=== PATIENT | female | born 1945 | race Caucasian/White ===

== ENCOUNTER 2017-12-24 12:14 | Emergency (ER) | payer MEDICARE, MEDICAID, SELFPAY | END 2017-12-24 15:22 | disposition home or self-care (01) | PROVIDERS: Emergency Provider Emergency Medicine; Family Provider Family Medicine; PCP Family Medicine; Visit Provider Emergency Medicine | DX: M25.422 Effusion, left elbow (principal) | CPT/HCPCS: 36415; 71100; 71101; 73030; 73080; 85025; 85610; 85730; 96372; 99058; 99284; J2270 ==

== ENCOUNTER → 2018-02-15 17:43 | Outpatient (CLI) | payer MEDICARE, MEDICAID, SELFPAY ==
[2018-02-15 18:54] LABS: Bacteria Urine None Seen; RBC Urine None Seen (0-5/HPF); WBC Urine None Seen (0-5/HPF)
[2018-02-15 19:09] LABS: Appearance Urine UA CLEAR; Bilirubin Urine UA NEGATIVE (NEGATIVE); Color Urine UA YELLOW; Glucose Urine UA NEGATIVE (Normal); Ketones Urine UA NEGATIVE (NEGATIVE); Leukocyte Esterase Urine UA NEGATIVE (NEGATIVE); Nitrite Urine UA Negative (Negative); Occult Blood Urine UA TRACE-LYSED (Negative); Protein Urine UA TRACE (Negative); Urobilinogen Urine UA 0.2 E.U./dL (0.2); pH Urine UA 5.5 (4.5-8.0)
[2018-02-15 19:18] LABS: Culture Indicated Urine Cult Not Indicated; Urine Comments Microscopic Normal
== END ==
PROVIDERS: Family Provider Family Medicine; PCP Family Medicine; Visit Provider Physician Assistant
DX: R30.0 Dysuria (principal)
CPT/HCPCS: 81001

== ENCOUNTER → 2018-02-17 11:06 | Outpatient (CLI) | payer MEDICARE, MEDICAID, SELFPAY ==
[2018-02-17 12:33] LABS: INR 2.8 (0.9-1.3); Prothrombin Time 29.9 SECONDS (10.1-12.7)
== END ==
PROVIDERS: Family Provider Family Medicine; PCP Family Medicine; Visit Provider Family Medicine
DX: I48.91 Unspecified atrial fibrillation (principal); Z79.01 Long term (current) use of anticoagulants
CPT/HCPCS: 36415; 85610

== ENCOUNTER → 2018-03-13 16:10 | Outpatient (CLI) | payer MEDICARE, MEDICAID, SELFPAY ==
[2018-03-13 17:35] LABS: Add Manual Diff / Slide Review NO; Basophils Percent Auto 0.2 % (0-2); Eosinophils Percent Auto 4.2 % (2-4); Hematocrit 32.4 % (36-46); Hemoglobin 10.6 g/dL (12.0-16.0); Lymphocytes Percent Auto 32.9 % (25-40); Mean Corpuscular HGB Conc 32.9 % (30-36); Mean Corpuscular Hemoglobin 26.3 PG (26-34); Mean Corpuscular Volume 79.9 fL (80-100); Neutrophils Absolute Auto 3800 /uL (3000-5900); Neutrophils Percent Auto 54.7 % (50-75); Platelet Count 259 X10^3/uL (150-400); Red Blood Cell Count 4.05 X10^6/uL (4.0-5.2)
[2018-03-13 17:48] LABS: INR 2.2 (0.9-1.3); Prothrombin Time 24.1 SECONDS (10.1-12.7)
[2018-03-13 18:01] LABS: Alanine Aminotransferase 15 IU/L (9-52); Albumin Globulin Ratio 1.1 (1.0-2.8); Alkaline Phosphatase 120 U/L (38-126); Aspartate Aminotransferase 17 IU/L (14-36); BUN Creatinine Ratio 22.5 (6-22); Bilirubin Total 0.4 mg/dL (0.2-1.3); Blood Urea Nitrogen 27 mg/dL (7-17); Calcium 8.7 mg/dL (8.4-10.2); Carbon Dioxide 25 mmol/L (22-32); Chloride 105 mmol/L (98-107); Cholesterol 143 mg/dL (140-199); Globulin 3.6 g/dL (1.7-4.1); Glucose 88 mg/dL (80-110); HEMOLYSIS 19 (0-50); Potassium 4.4 mmol/L (3.4-5.1); Sodium 143 mmol/L (137-145); Total Protein 7.6 g/dL (6.3-8.2); Triglycerides 314 mg/dL (35-150)
[2018-03-13 18:32] LABS: TSH w/ Reflex to FT4 1.49 uIU/mL (0.47-4.68)
[2018-03-13 20:09] LABS: HDL Cholesterol 39 mg/dL (40-60); LDL Cholesterol Calculated 41 mg/dL (<100)
== END ==
PROVIDERS: Family Provider Family Medicine; PCP Family Medicine; Visit Provider Family Medicine
DX: I48.91 Unspecified atrial fibrillation (principal); I10 Essential (primary) hypertension; M54.5 Low back pain; I63.9 Cerebral infarction, unspecified; Z79.01 Long term (current) use of anticoagulants
CPT/HCPCS: 36415; 80053; 80061; 84443; 85025; 85610

== ENCOUNTER 2018-03-24 18:54 | Emergency (ER) | payer MEDICARE, MEDICAID, SELFPAY ==
[2018-03-24 19:04] VITALS: BP 164/69; PULSE 67; RESP 18; TEMP 37.1; O2SAT 95; BMI 30.9
--- NOTE | 2018-03-24 19:14 | DI.RAD.S_ITS ---
PROCEDURE: XR CHEST 2V INDICATIONS: shortness of breath TECHNIQUE: 2 views of the chest were acquired. COMPARISON: [facility], , CHEST 2 VIEW, 12/11/2015, 14:57. FINDINGS: Surgical changes and devices: Partially visualized thoracic fixation rods are noted. Lungs and pleura: No pleural effusions or pneumothorax. Mild increased pulmonary vascularity. Mediastinum: Mediastinal contours are normal. Heart size is mildly prominent. Bones and chest wall: No suspicious bony abnormalities. Soft tissues appear unremarkable. IMPRESSION: Mild increased pulmonary vascularity suggestive of edema. Dictated by: Megan Flores M.D. on 03/24/2018 at 20:22 Approved by: Megan Flores M.D. on 03/24/2018 at 20:23
--- NOTE | 2018-03-24 19:16 | ED.SOB ---
HPI - SOB/Dyspnea General Chief Complaint: Shortness of Breath/Dyspnea Stated Complaint: SWELLING OF LEGS STING AND BURN BLOOD Time Seen by Provider: 03/24/18 19:00 Source: patient Mode of arrival: ambulatory Limitations: no limitations History of Present Illness Patient presents to the emergency department today with a chief complaint of increasing shortness of breath over the past few days. She states that her shortness of breath is worse with exertion and when lying flat. Additionally she states she has some swelling in her lower extremities. She is supposed to take Lasix every day but has not been taking it lately because she did know what it was for MD Complaint: shortness of breath Onset (ago): day(s) Context: medication noncompliance Consistency/Duration: constant Relieving factors: oxygen Exacerbating factors: lying flat and exertion Known history of: congestive heart failure Associated symptoms: denies other symptoms Treatment prior to arrival: none Related Data Home Medications Medication Instructions Recorded Confirmed oxybutynin chloride 15 mg PO QDAY #30 08/23/17 03/14/18 buprenorphine 8 mg-naloxone 2 mg 1 film SL DAILY 03/21/18 sublingual film Previous Rx's Medication Instructions Recorded warfarin [Coumadin] 0 PO SEE INSTRUCTIONS #90 tab 07/11/17 omeprazole 20 mg PO QDAY #90 cap 09/07/17 bupropion HCl 200 mg PO Q DAY #30 tab 12/12/17 losartan [Cozaar] 50 mg PO QDAY #90 tab 12/22/17 nitroglycerin 0.4 mg sublingual 0.4 mg SL Q5-15M PRN #25 tab 01/18/18 tablet metoprolol succinate [Toprol XL] 25 mg PO BID #180 tab 01/31/18 furosemide 40 mg tablet 20 mg PO Q DAY #45 tab 02/13/18 duloxetine 60 mg capsule,delayed 120 mg PO QDAY 30 Days #60 cap 03/21/18 release zolpidem 5 mg tablet 5 mg PO HSP PRN #30 tab 03/21/18 Allergies Allergy/AdvReac Type Severity Reaction Status Date / Time ciprofloxacin AdvReac Intermediate FLUSHING, Unverified 03/14/18 11:04 SWEATS, SOB citalopram [CITALOPRAM] AdvReac Intermediate Hallucinati Unverified 03/14/18 11:04 ons cyclobenzaprine AdvReac Intermediate FLUSHING, Unverified 03/14/18 11:04 SWEATS, SOB pregabalin AdvReac Intermediate FLUSHING/SW Unverified 03/14/18 11:04 EATS/SOB Review of Systems Review of Systems All systems reviewed & are unremarkable except as noted in HPI and below Constitutional Denies chills, Denies fever(s), Denies lethargy and Denies weakness Eyes Denies change in vision, Denies eye discharge, Denies irritation and Denies loss of vision ENT Ears, Nose, Mouth, and Throat: Denies change in voice, Denies neck pain and Denies sore throat Cardiovascular Denies chest pain, Denies irregular heart rhythm, Denies lightheadedness, Denies palpitations, Reports dyspnea, Reports dyspnea on exertion and Denies orthopnea Respiratory Reports cough, Reports dyspnea, Reports dyspnea on exertion and Denies wheezing Gastrointestinal Gastrointestinal: Denies abdominal pain, Denies change in bowel habits, Denies diarrhea, Denies nausea and Denies vomiting Genitourinary Denies hematuria, Denies flank pain, Denies urinary incontinence and Denies urinary urgency Musculoskeletal Denies neck pain Comments: Bilateral lower extremity edema Integumentary/Breasts Denies pruritus, Denies erythema, Denies rash and Denies wounds Neurologic Denies confusion, Denies loss of vision and Denies weakness Psychiatric Denies anxiety, Denies confusion, Denies depression, Denies homicidal ideation and Denies suicidal ideation Endocrine Denies palpitations Hematologic/Lymphatic Denies easy bruising Allergic/Immunologic Denies wheezing PFSH Social History marital status: Smoking Status: Former smoker alcohol intake: never substance use type: does not use Exam Narrative Exam Narrative: 73-year-old female in mild distress Initial Vital Signs Initial Vital Signs: Vital Signs Temperature 98.7 F 03/24/18 19:04 Pulse Rate 67 03/24/18 19:04 Respiratory Rate 18 03/24/18 19:04 Blood Pressure 164/69 H 03/24/18 19:04 Pulse Oximetry 95 03/24/18 19:04 Const General: cooperative and well developed Nutritional Appearance: well nourished Orientation: alert, awake, oriented x3 and not confused HENMT Head: normocephalic and atraumatic Ears: external ears normal and TM's normal bilaterally Nose: external nose normal and No nasal discharge Face and sinus: sinuses nontender, face symmetric, no sinus tenderness and No dry mucous membranes Mouth: oral mucosae normal and moist mucous membranes Teeth and gingiva: dentition normal Throat: tonsils normal and uvula midline Neck Neck: normal visual inspection, trachea midline, No lymphadenopathy, No midline deformity and No JVD Lymphatic: No lymphedema Chest Chest: normal inspection of the chest Resp Effort & Inspection: normal respiratory effort, able to speak in complete sentences, no respiratory distress and no use of accessory muscles Auscultation: clear to auscultation bilaterally, crackles, rales, no rhonchi and no wheezes Cardio Rate: regular rate Rhythm: regular rhythm Heart Sounds: no click, no gallops, no murmurs and no rubs Pulses: normal peripheral pulses GI Inspection: non-distended Palpation: soft, no hepatosplenomegaly, No guarding, No pulsatile mass and No tender Auscultation: normal bowel sounds Skin General: no rashes or lesions noted, No jaundice and No petechiae Extrem Right lower extremity: edema Left lower extremity: edema Course Orders Ordered: ED Orders 03/24/18 20:10 B Type Natriuretic Peptide Stat Basic Metabolic Panel Stat Complete Blood Count AUTO DIFF Stat Lactate (Lactic Acid) Stat Magnesium Stat Procalcitonin Stat Troponin & CK Cardiac Panel Stat 03/24/18 20:32 Blood Culture Stat Discontinued Medications Furosemide (Lasix) 40 mg IV NOW ONE Stop: 03/24/18 19:57 Last Admin: 03/24/18 20:54 Dose: 40 mg Methylprednisolone (Solu-Medrol 125 Mg Vial) 125 mg IV NOW ONE Stop: 03/24/18 19:17 Last Admin: 03/24/18 20:53 Dose: 125 mg Vital Signs - 8 hr 03/24/18 21:08 Pulse Rate 63 Respiratory Rate 18 Blood Pressure [Left Arm] 138/74 H Pulse Oximetry 95 MDM - SOB/Dyspnea Differential Diagnosis Likely acute exacerbation of chronic obstructive airways disease, congestive heart failure, community acquired pneumonia and asthma with exacerbation Medical Records Attestation: I reviewed the patient's medical records. Lab Data Attestation: I reviewed the patient's lab results. Result diagrams: 03/24/18 20:10 03/24/18 20:10 Lab Results 03/24/18 03/24/18 03/24/18 Range/Units 20:10 20:10 20:10 WBC 6.2 (4.5-11.0) X10^3/uL RBC 3.18 L (4.0-5.2) X10^6/uL Hgb 8.4 L (12.0-16.0) g/dL Hct 25.2 L (36-46) % MCV 79.4 L (80-100) fL MCH 26.4 (26-34) PG MCHC 33.2 (30-36) % RDW 15.9 H (11.6-14.8) % Plt Count 198 (150-400) X10^3/uL Neut % (Auto) 62.1 (50-75) % Lymph % (Auto) 22.9 L (25-40) % Peach % (Auto) 7.8 (3-14) % Eos % (Auto) 5.8 H (2-4) % Baso % (Auto) 1.4 (0-2) % Neut # (Auto) 3900 (6981-2918) /uL Sodium 142 (137-145) mmol/L Potassium 4.1 (3.4-5.1) mmol/L Chloride 106 (98-107) mmol/L Carbon Dioxide 29 (22-32) mmol/L BUN 27 H (7-17) mg/dL Creatinine 0.90 (0.52-1.04) mg/dL Estimated GFR > 60.0 (>60) mL/min BUN/Creatinine Ratio 30.0 H (6-22) Glucose 97 (80-110) mg/dL Lactate (0.7-2.1) mmol/L Calcium 8.4 (8.4-10.2) mg/dL Magnesium 2.1 (1.6-2.3) mg/dL Total Creatine Kinase 101 (30-135) U/L CK-MB (CK-2) 2.21 (<2.37) ng/mL CK-MB (CK-2) Rel Index 2.2 (1.5-5.0) % Troponin I < 0.012 (0.01-0.034) ng/mL B-Natriuretic Peptide 168.0 H (<100) Procalcitonin < 0.05 (<0.5) ng/mL 03/24/18 Range/Units 20:10 WBC (4.5-11.0) X10^3/uL RBC (4.0-5.2) X10^6/uL Hgb (12.0-16.0) g/dL Hct (36-46) % MCV (80-100) fL MCH (26-34) PG MCHC (30-36) % RDW (11.6-14.8) % Plt Count (150-400) X10^3/uL Neut % (Auto) (50-75) % Lymph % (Auto) (25-40) % Peach % (Auto) (3-14) % Eos % (Auto) (2-4) % Baso % (Auto) (0-2) % Neut # (Auto) (7262-8788) /uL Sodium (137-145) mmol/L Potassium (3.4-5.1) mmol/L Chloride (98-107) mmol/L Carbon Dioxide (22-32) mmol/L BUN (7-17) mg/dL Creatinine (0.52-1.04) mg/dL Estimated GFR (>60) mL/min BUN/Creatinine Ratio (6-22) Glucose (80-110) mg/dL Lactate 1.0 (0.7-2.1) mmol/L Calcium (8.4-10.2) mg/dL Magnesium (1.6-2.3) mg/dL Total Creatine Kinase (30-135) U/L CK-MB (CK-2) (<2.37) ng/mL CK-MB (CK-2) Rel Index (1.5-5.0) % Troponin I (0.01-0.034) ng/mL B-Natriuretic Peptide (<100) Procalcitonin (<0.5) ng/mL Imaging Data Chest x-ray: Radiologist's impression: PROCEDURE: XR CHEST 2V INDICATIONS: shortness of breath TECHNIQUE: 2 views of the chest were acquired. COMPARISON: [facility], , CHEST 2 VIEW, 12/11/2015, 14:57. FINDINGS: Surgical changes and devices: Partially visualized thoracic fixation rods are noted. Lungs and pleura: No pleural effusions or pneumothorax. Mild increased pulmonary vascularity. Mediastinum: Mediastinal contours are normal. Heart size is mildly prominent. Bones and chest wall: No suspicious bony abnormalities. Soft tissues appear unremarkable. IMPRESSION: Mild increased pulmonary vascularity suggestive of edema. Dictated by: Megan Flores M.D. on 03/24/2018 at 20:22 Approved by: Megan Flores M.D. on 03/24/2018 at 20:23 Discharge Plan Departure Patient Disposition: Home, Self-Care Clinical Impression: Congestive heart failure Discharge Date/Time: 03/24/18 21:49 Interventions: ED Discharge Assessment Last Done: 03/24/18 21:49 Instructions: DI for Heart Failure Activity Restrictions/Additional Instructions: *You have been diagnosed with [ acute CHF ] *What to do: *Take medications as directed. It is very important that you do not for due to medications and take them as directed. There is a distinct possibility that your exacerbation of heart failure is because you not been taking her medications. Starting tomorrow please take an extra Lasix daily for the next 3 days and then return to her normal dosing. *Follow up with your primary care provider in 2-3 days, call for an appointment. Let them know you were seen in the Emergency Department and that we ask that you be seen in follow up *Return to ER if you should have any new, worsening or concerning symptoms, such as [ worsening shortness of breath, chest pain, the sensation that he will pass out, other concerning symptoms] Prescriptions: No Action buprenorphine-naloxone 8-2 mg film 1 film SL DAILY RF: 0 zolpidem 5 mg tablet 5 mg PO HSP PRN (Reason: insomnia) Qty: 30 RF: 1 duloxetine [Cymbalta] 60 mg capsule,delayed release(DR/EC) 120 mg PO QDAY 30 Days Qty: 60 RF: 5 warfarin [Coumadin] 5 MG tablet PO SEE INSTRUCTIONS Qty: 90 RF: 0 oxybutynin chloride 15 MG tablet extended release 24hr 15 mg PO QDAY Qty: 30 RF: 0 omeprazole 20 MG capsule,delayed release(DR/EC) 20 mg PO QDAY Qty: 90 RF: 2 bupropion HCl 200 MG tablet extended release 12 hr 200 mg PO Q DAY Qty: 30 RF: 5 losartan [Cozaar] 50 MG tablet 50 mg PO QDAY Qty: 90 RF: 3 nitroglycerin [Nitrostat] 0.4 mg tablet, sublingual 0.4 mg SL Q5-15M PRN (Reason: chest pain) Qty: 25 RF: 1 metoprolol succinate [Toprol XL] 25 mg tablet extended release 24 hr 25 mg PO BID Qty: 180 RF: 3 furosemide 40 mg tablet 20 mg PO Q DAY Qty: 45 RF: 3 Referrals: Bill Silva MD [Primary Care Provider] -
[2018-03-24 20:29] LABS: Add Manual Diff / Slide Review NO; Basophils Percent Auto 1.4 % (0-2); Eosinophils Percent Auto 5.8 % (2-4); Hematocrit 25.2 % (36-46); Hemoglobin 8.4 g/dL (12.0-16.0); Lymphocytes Percent Auto 22.9 % (25-40); Mean Corpuscular HGB Conc 33.2 % (30-36); Mean Corpuscular Hemoglobin 26.4 PG (26-34); Mean Corpuscular Volume 79.4 fL (80-100); Monocytes Percent Auto 7.8 % (3-14); Neutrophils Absolute Auto 3900 /uL (3000-5900); Neutrophils Percent Auto 62.1 % (50-75); Platelet Count 198 X10^3/uL (150-400); Red Blood Cell Count 3.18 X10^6/uL (4.0-5.2); Red Cell Distribution Width 15.9 % (11.6-14.8); White Blood Cell Count 6.2 X10^3/uL (4.5-11.0)
[2018-03-24] MEDS: methylPREDNISolone 125 MG/2 ML VIAL IV (20:53)
[2018-03-24 20:54] LABS: Blood Urea Nitrogen 27 mg/dL (7-17); Calcium 8.4 mg/dL (8.4-10.2); Carbon Dioxide 29 mmol/L (22-32); Chloride 106 mmol/L (98-107); Creatine Kinase 101 U/L (30-135); Estimated Glomerular Filt Rate > 60.0 mL/min (>60); Glucose 97 mg/dL (80-110); Magnesium 2.1 mg/dL (1.6-2.3); Potassium 4.1 mmol/L (3.4-5.1); Sodium 142 mmol/L (137-145)
[2018-03-24] MEDS: FUROSEMIDE 40 MG/4 ML VIAL IV (20:54)
[2018-03-24 21:06] LABS: Troponin I < 0.012 ng/mL (0.01-0.034)
[2018-03-24 21:08] VITALS: BP 138/74; PULSE 63; RESP 18; O2SAT 95
[2018-03-24 21:09] LABS: CKMB % Relative Index 2.2 % (1.5-5.0); Creatine Kinase MB 2.21 ng/mL (<2.37); HEMOLYSIS 16 (0-50)
[2018-03-24 21:12] LABS: Procalcitonin < 0.05 ng/mL (<0.5)
== END 2018-03-24 21:49 | disposition home or self-care (01) ==
PROVIDERS: Emergency Provider Emergency Medicine; Family Provider Family Medicine; PCP Family Medicine
DX: I50.9 Heart failure, unspecified (principal)
CPT/HCPCS: 36591; 71046; 80048; 82550; 82553; 83605; 83735; 83880; 84145; 84484; 85025; 87040; 90837; 93005; 96374; 96375; 99282; 99285; J1940; J2930

== ENCOUNTER → 2018-04-10 09:41 | Outpatient (CLI) | payer MEDICARE, MEDICAID, SELFPAY ==
--- NOTE | 2018-04-10 09:45 | DI.ECHO.S_ITS ---
[place] +---------+ Hospital +---------+ : : [address] : : : : [id number] : : : : Phone: [phone]+ Echocardiogram Report + + :Name: BERNARDA ROBBINS Study Date: 04/10/2018 Height: 64 in : :[facility] Exam Location: [place] Weight: 180 lb : : Gender: Female BSA: 1.9 m2 : :: 1945 Age: 73 yrs BP: 130/65 mmHg: :Reason For Study: Congestive Heart Failure : :Ordering Physician: Dr. Khan : :Shira Performed By: Ceci Page : + + Interpretation Summary Sinus bradycardia; heart rate is 49-61 bpm. Normal LV size and wall thickness. Normal wall motion and LV systolic function. EF is 55-60%. Stage I diastolic dysfunction. Severe LA enlargement; otherwise normal chamber sizes. Aortic scleoris without stenosis. Otherwise no significant valvular abnormalities. Compared to prior study 10/25/2016 no changes have occurred. Procedure: A two-dimensional transthoracic echocardiogram with color flow and Doppler was performed. The study quality was technically adequate. Comparison is made with the echocardiogram of 10/25/2016. The heart rate ranged between 49-61 bpm during the study. Left Ventricle: The left ventricle is normal in size, wall thickness, and systolic function without any focal wall motion abnormalities. The ejection fraction is estimated to be 55-60%. Right Ventricle: The right ventricle is normal in size and function. Atria: The left atrium is severely dilated. Right atrial size is normal. There is no Doppler evidence for an interatrial shunt. Mitral Valve: The mitral valve leaflets appear thickened, but open well. There is mild mitral annular calcification. There is trace mitral regurgitation. Aortic Valve: The aortic valve is trileaflet. Leaflet mobility is mildly reduced. The aortic valve is mildly calcified. The peak aortic velocity is 2.2 m/sec. The peak aortic velocity on the previous exam was 2.0 m/sec. The calculated aortic valve area is 1.7 cm2. No aortic regurgitation is present. Tricuspid Valve: The tricuspid valve is normal in structure and function. There is mild tricuspid regurgitation. Pulmonic Valve: The pulmonic valve is not well visualized. There is a trace or physiologic amount of pulmonic regurgitation. Great Vessels: The aortic root is normal size. The ascending aorta is mildly enlarged. The pulmonary artery is not well visualized, but is probably normal size. The IVC is dilated (diameter is greater than 2.1 cm) yet it collapses greater than 50% with a sniff. This suggests a right atrial pressure of 8 mm Hg. Pericardium/ Pleura There is no pericardial effusion. There is no pleural effusion. MMode/2D Measurements & Calculations LVIDd: 5.3 cm LVOT diam: 2.1 cm LVIDs: 3.9 cm Ao root diam: 3.5 cm FS: 27.4 % asc Aorta Diam: 3.8 cm EPSS: 0.66 cm IVSd: 0.92 cm LVPWd: 0.87 cm LV rojas. diameter/BSA (cm/m^2): 2.8 LV sys. diameter/BSA (cm/m^2): 2.1 LA A2 area: 30.4 cm2 RA long axis: 4.8 cm LA A4 area: 30.5 cm2 RA area: 17.8 cm2 LA length (vol): 6.5 cm RA vol: 56.6 ml LA vol: 120.7 ml RA : 30.3 ml/m2 LA vol index: 64.5 ml/m2 IVC diam: 2.3 cm RVD1 (basal): 3.9 cm TAPSE: 2.6 cm Doppler Measurements & Calculations Ao V2 max: 215.0 cm/sec LVOT Max Camacho: 91.4 cm/sec Ao V2 mean: 145.9 cm/sec LV V1 max P.3 mmHg Ao max P.6 mmHg LV V1 VTI: 22.4 cm Ao mean P.6 mmHg ROSSI(I,D): 1.7 cm2 Ao V2 VTI: 44.5 cm ROSSI(V,D): 1.5 cm2 sev ratio: 0.50 ROSSI indexed to BSA (cm^2/m^2): 0.93 MV E max camacho: 92.7 cm/sec TR max camacho: 268.8 cm/sec MV A max camacho: 124.1 cm/sec TR max P.9 mmHg MV E/A: 0.75 PA V2 max: 88.6 cm/sec Med Peak E' Camacho: 5.2 cm/sec PA V2 mean: 60.9 cm/sec E/E' med: 18.0 PA mean P.7 mmHg Lat Peak E' Camacho: 6.2 cm/sec PA Accel Time: 0.13 sec E/E' lat: 14.9 E/e' average: 16.4 MV dec time: 0.17 sec MV P1/2t: 52.2 msec MV P1/2t max camacho: 92.1 cm/sec MVA(P12t): 4.2 cm2 Reading Physician:08:29 PM
== END ==
PROVIDERS: Family Provider Family Medicine; PCP Family Medicine; Visit Provider Family Medicine
DX: I50.9 Heart failure, unspecified (principal); I08.2 Rheumatic disorders of both aortic and tricuspid valves; I10 Essential (primary) hypertension; Z79.01 Long term (current) use of anticoagulants
CPT/HCPCS: 36415; 80048; 82607; 83540; 83550; 85025; 85610; 93306

== ENCOUNTER → 2018-04-10 11:03 | Outpatient (CLI) | payer MEDICARE, MEDICAID, SELFPAY ==
[2018-04-10 12:28] LABS: Add Manual Diff / Slide Review NO; Basophils Percent Auto 0.8 % (0-2); Eosinophils Percent Auto 3.4 % (2-4); Hematocrit 24.9 % (36-46); Hemoglobin 8.1 g/dL (12.0-16.0); Lymphocytes Percent Auto 19.2 % (25-40); Mean Corpuscular HGB Conc 32.6 % (30-36); Mean Corpuscular Hemoglobin 25.8 PG (26-34); Mean Corpuscular Volume 79.1 fL (80-100); Monocytes Percent Auto 7.9 % (3-14); Neutrophils Absolute Auto 5000 /uL (3000-5900); Neutrophils Percent Auto 68.7 % (50-75); Platelet Count 310 X10^3/uL (150-400); Red Blood Cell Count 3.15 X10^6/uL (4.0-5.2); White Blood Cell Count 7.3 X10^3/uL (4.5-11.0)
[2018-04-10 12:34] LABS: INR 2.3 (0.9-1.3); Prothrombin Time 25.9 SECONDS (10.1-12.7)
[2018-04-10 13:04] LABS: BUN Creatinine Ratio 17.9 (6-22); Blood Urea Nitrogen 25 mg/dL (7-17); Calcium 8.7 mg/dL (8.4-10.2); Carbon Dioxide 31 mmol/L (22-32); Chloride 102 mmol/L (98-107); Estimated Glomerular Filt Rate 36.9 mL/min (>60); Glucose 98 mg/dL (80-110); HEMOLYSIS < 15 (0-50); Sodium 145 mmol/L (137-145)
[2018-04-10 13:09] LABS: HEMOLYSIS < 15 (0-50); Iron 17 ug/dL (37-170)
[2018-04-10 13:19] LABS: Percent Iron Saturation 4 % (15-50); Total Iron Binding Capacity 402 ug/dL (265-497); Transferrin 338 mg/dL (206-381)
[2018-04-10 13:49] LABS: Vitamin B12 289 pg/mL (239-931)
== END ==
PROVIDERS: Family Provider Family Medicine; PCP Family Medicine; Visit Provider Family Medicine
DX: I50.9 Heart failure, unspecified (principal); Z79.01 Long term (current) use of anticoagulants; I10 Essential (primary) hypertension; I48.2 Chronic atrial fibrillation
CPT/HCPCS: 36415; 80048; 82607; 83540; 83550; 85025; 85610

== ENCOUNTER → 2018-05-03 15:07 | Outpatient (CLI) | payer MEDICARE, MEDICAID, SELFPAY ==
[2018-05-03 16:02] LABS: Add Manual Diff / Slide Review NO; Basophils Percent Auto 0.9 % (0-2); Eosinophils Percent Auto 3.1 % (2-4); Hematocrit 27.9 % (36-46); Lymphocytes Percent Auto 26.7 % (25-40); Mean Corpuscular HGB Conc 32.2 % (30-36); Mean Corpuscular Hemoglobin 25.3 PG (26-34); Mean Corpuscular Volume 78.4 fL (80-100); Monocytes Percent Auto 8.2 % (3-14); Neutrophils Absolute Auto 4600 /uL (3000-5900); Neutrophils Percent Auto 61.1 % (50-75); Platelet Count 290 X10^3/uL (150-400); Red Blood Cell Count 3.55 X10^6/uL (4.0-5.2); Red Cell Distribution Width 18.2 % (11.6-14.8); White Blood Cell Count 7.5 X10^3/uL (4.5-11.0)
[2018-05-03 16:25] LABS: HEMOLYSIS < 15 (0-50); Iron 31 ug/dL (37-170)
[2018-05-03 16:36] LABS: Percent Iron Saturation 7 % (15-50); Total Iron Binding Capacity 423 ug/dL (265-497); Transferrin 332 mg/dL (206-381)
[2018-05-03 17:01] LABS: Ferritin 16.4 ng/mL (11.1-264)
== END ==
PROVIDERS: Family Provider Family Medicine; PCP Family Medicine; Visit Provider Family Medicine
DX: D64.9 Anemia, unspecified (principal); D50.9 Iron deficiency anemia, unspecified
CPT/HCPCS: 36415; 82728; 83540; 83550; 85025

== ENCOUNTER → 2018-05-10 15:06 | Outpatient (CLI) | payer MEDICARE, MEDICAID, SELFPAY | PROVIDERS: Family Provider Family Medicine; PCP Family Medicine; Visit Provider Family Medicine | DX: I48.91 Unspecified atrial fibrillation (principal) | CPT/HCPCS: 0296T ==

== ENCOUNTER 2018-06-25 14:47 | Emergency (ER) | payer MEDICARE, MEDICAID, SELFPAY ==
--- NOTE | 2018-06-25 14:50 | ED_ITS ---
HPI - Fall General Chief Complaint: Fall Stated Complaint: GLF, hit her head Time Seen by Provider: 06/25/18 14:49 Source: patient Mode of arrival: ambulatory Limitations: no limitations History of Present Illness HPI Narrative: 73-year-old female here for evaluation of a head injury. Patient states that earlier today she was walking upstairs and some flip-flops where she tripped and hit the left side of her head on the door frame. No loss of consciousness. Also states that she scraped her right knee. No vision changes no headache patient not on blood thinners. Not having any neck pain. Related Data Home Medications Medication Instructions Recorded Confirmed oxybutynin chloride 15 mg PO QDAY #30 08/23/17 06/08/18 buprenorphine 8 mg-naloxone 2 mg 1 film SL DAILY 03/21/18 06/08/18 sublingual film Previous Rx's Medication Instructions Recorded losartan [Cozaar] 50 mg PO QDAY #90 tab 12/22/17 metoprolol succinate [Toprol XL] 25 mg PO BID #180 tab 01/31/18 duloxetine 60 mg capsule,delayed 120 mg PO QDAY 30 Days #60 cap 03/21/18 release furosemide 40 mg tablet 40 mg PO Q DAY #90 tab 04/03/18 spironolactone 50 mg tablet 50 mg PO ONCE #30 tab 04/03/18 zolpidem 5 mg tablet 5 mg PO HSP PRN #30 tab 04/14/18 nitroglycerin 0.4 mg sublingual 0.4 mg SL Q5-15M PRN #25 tab 04/18/18 tablet bupropion HCl SR 200 mg tablet,12 200 mg PO Q DAY #30 tab 05/03/18 hr sustained-release omeprazole 20 mg capsule,delayed 20 mg PO QDAY #90 cap 05/05/18 release ferrous gluconate 324 mg (36 mg 324 mg PO BID #60 tab 06/12/18 iron) tablet Allergies Allergy/AdvReac Type Severity Reaction Status Date / Time ciprofloxacin AdvReac Intermediate FLUSHING, Verified 06/08/18 10:35 SWEATS, SOB citalopram [CITALOPRAM] AdvReac Intermediate Hallucinati Verified 06/08/18 10:35 ons cyclobenzaprine AdvReac Intermediate FLUSHING, Verified 06/08/18 10:35 SWEATS, SOB pregabalin AdvReac Intermediate FLUSHING/SW Verified 06/08/18 10:35 EATS/SOB Review of Systems Constitutional Denies fever(s) and Reports headache(s) Eyes Denies change in vision and Denies diplopia ENT Ears, Nose, Mouth, and Throat: Denies vertigo, Denies dizziness, Reports headache(s), Denies neck pain and Denies sore throat Cardiovascular Denies chest pain, Denies palpitations and Denies dyspnea Respiratory Denies dyspnea Musculoskeletal Denies myalgias, Denies arthralgias and Denies neck pain Integumentary/Breasts Comments: Abrasion to the right knee Neurologic Denies vertigo, Denies dizziness and Reports headache(s) Endocrine Denies palpitations Hematologic/Lymphatic Denies easy bleeding and Denies easy bruising Exam Initial Vital Signs Initial Vital Signs: Vital Signs Temperature 98.6 F 06/25/18 14:53 Pulse Rate 75 06/25/18 14:53 Respiratory Rate 18 06/25/18 14:53 Blood Pressure 151/74 H 06/25/18 14:53 Pulse Oximetry 96 06/25/18 14:53 Const General: cooperative, comfortable, well developed, well groomed and No acute distress Orientation: alert, awake and oriented x3 [facility] Head: other (Patient with a bruise above her left eye just inside the hairline. No depressed skull fracture. No breaks in the skin.) Ears: hearing grossly normal bilaterally and TM's normal bilaterally Nose: external nose normal Face and sinus: normal facial exam Eyes Pupils: PERRL EOM: EOM intact bilaterally Resp Effort & Inspection: normal respiratory effort Skin Other: Small abrasion on the anterior aspect of her right knee. Bruising above her left eye Neuro General: alert, awake and oriented x3 Extrem General: normal to inspection and capillary refill normal Other: Full range of motion the right knee Psych Appearance: grossly normal and well kempt [facility] Medical History Abnormal Pap smear of cervix (Chronic ~1956) Anemia (Chronic) Ankle pain (Chronic) Anxiety (Chronic) Arachnoiditis (Chronic) Atrial fibrillation (Chronic) Cataracts, bilateral (Chronic) Cervical spine disease (Chronic) Chronic back pain (Chronic) Cystic fibrosis (Chronic ~1956) Cystic fibrosis (Chronic ~1956) Degenerative joint disease (DJD) of lumbar spine (Chronic) Depression (Chronic) Fibromyalgia (Chronic) Fibromyalgia (Chronic) Foot pain (Chronic) GERD (gastroesophageal reflux disease) (Chronic) GI bleeding (Chronic) Heavy menstrual period (Chronic) Hypertension (Chronic) Kidney stones (Chronic) Osteoporosis (Chronic) Pneumonia (Chronic) Post traumatic stress disorder (PTSD) (Chronic) Restless leg syndrome (Chronic) Rheumatoid arthritis (Chronic) Scoliosis (Chronic) Skin cancer (Chronic ~1996) Stroke (Chronic) Vertigo (Chronic ~1968) Surgical History History of back surgery (Chronic) History of neck surgery (Chronic) History of hip replacement History of knee replacement (11/29/16) S/P total abdominal hysterectomy and bilateral salpingo-oophorectomy Status post appendectomy Status post bunionectomy (08/11/15) Status post cholecystectomy Status post tonsillectomy and adenoidectomy Status post tubal ligation Social History marital status: Smoking Status: Former smoker alcohol intake: never substance use type: does not use Course Orders Ordered: ED Orders 06/25/18 15:04 CT head/brain wo con Stat Vital Signs - 8 hr 06/25/18 14:53 Temperature 98.6 F Pulse Rate 75 Respiratory Rate 18 Blood Pressure 151/74 H Pulse Oximetry 96 MDM - Fall Lab Data Attestation: I reviewed the patient's lab results. Urine Dip Bedside Urine Glucose Negative Bedside Urine Bilirubin - Negative Bedside Urine Ketone - Negative Urine Specific [place] 1.020 Bedside Urine Occult Blood - Negative Bedside Urine pH 6.0 Bedside Urine Protein - Negative Bedside Urine Urobilinogen - Negative Bedside Urine Nitrite - Negative Bedside Urine Leukocytes - Negative Esterase Imaging Data CT scan - head: Radiologist's impression: [address] [address] [address] Scan Report Signed Patient: Janet Paris FMR#: [id number] : 5Acct:[id number] Age/Sex: 73 / FDate of Service: 06/25/18 Loc: ED Accession Number: [id number] Procedure: CT head/brain wo con Ordering Provider: Tod Castellanos D.O. PROCEDURE: CT HEAD/BRAIN WO CON INDICATIONS: fall left frontal contusion TECHNIQUE: Noncontrast 4.5 mm thick angled axial sections acquired from the foramen magnum to the vertex, with coronal and sagittal reformats. For radiation dose reduction, the following was used: automated exposure control, adjustment of mA and/or kV according to patient size. COMPARISON: [facility], CT, HEAD WITHOUT CONTRAST, 05/13/2017, 18:43. FINDINGS: Image quality: Excellent. CSF spaces: Basal cisterns are patent. No extra-axial fluid collections. The ventricles are symmetric in size and shape. Brain: No intracranial bleeds or masses. There is cerebral volume loss for age , with resultant ventricular and sulcal prominence. There are periventricular and deep white matter chronic small vessel ischemic changes. There is intracranial internal carotid artery atherosclerosis. Dense calcifications are present in the bilateral basal ganglia. Skull and face: Calvarium and visualized facial bones appear intact, without suspicious lesions. Sinuses: Visualized sinuses and mastoids are clear. IMPRESSION: 1. No acute intracranial findings. 2. Findings likely associated with chronic microvascular ischemic changes. Dictated by: Vanessa Patel M.D. on 06/25/2018 at 15:38 Approved by: Vanessa Patel M.D. on 06/25/2018 at 15:4 MDM Narrative Medical decision making narrative: CT scan shows no signs of fracture. Patient is alert oriented x3. Has a GCS 15. Does have a contusion above her left eye. I did discuss with her the symptoms of a concussion. We discussed return precautions. No indication for further workup now. She expressed understanding and agreement with going home. Discharge Plan Departure Patient Disposition: Home Clinical Impression: CHI (closed head injury), Contusion Instructions: DI for Closed Head Injury Activity Restrictions/Additional Instructions: Continue all of your medications. Call your primary care doctor for a follow- up. Return to the emergency department for any new or worsening symptoms Prescriptions: No Action buprenorphine-naloxone 8-2 mg film 1 film SL DAILY RF: 0 duloxetine [Cymbalta] 60 mg capsule,delayed release(DR/EC) 120 mg PO QDAY 30 Days Qty: 60 RF: 5 oxybutynin chloride 15 MG tablet extended release 24hr 15 mg PO QDAY Qty: 30 RF: 0 losartan [Cozaar] 50 MG tablet 50 mg PO QDAY Qty: 90 RF: 3 metoprolol succinate [Toprol XL] 25 mg tablet extended release 24 hr 25 mg PO BID Qty: 180 RF: 3 zolpidem 5 mg tablet 5 mg PO HSP PRN (Reason: insomnia) Qty: 30 RF: 1 nitroglycerin [Nitrostat] 0.4 mg tablet, sublingual 0.4 mg SL Q5-15M PRN (Reason: chest pain) Qty: 25 RF: 1 bupropion HCl 200 mg tablet extended release 12 hr 200 mg PO Q DAY Qty: 30 RF: 5 omeprazole 20 mg capsule,delayed release(DR/EC) 20 mg PO QDAY Qty: 90 RF: 0 ferrous gluconate 324 mg (36 mg iron) tablet 324 mg PO BID Qty: 60 RF: 5 spironolactone 50 mg tablet 50 mg PO ONCE Qty: 30 RF: 3 furosemide 40 mg tablet 40 mg PO Q DAY Qty: 90 RF: 3
[2018-06-25 14:53] VITALS: BP 151/74; PULSE 75; RESP 18; TEMP 37; O2SAT 96
--- NOTE | 2018-06-25 15:04 | DI.CT.S_ITS ---
PROCEDURE: CT HEAD/BRAIN WO CON INDICATIONS: fall left frontal contusion TECHNIQUE: Noncontrast 4.5 mm thick angled axial sections acquired from the foramen magnum to the vertex, with coronal and sagittal reformats. For radiation dose reduction, the following was used: automated exposure control, adjustment of mA and/or kV according to patient size. COMPARISON: [facility], CT, HEAD WITHOUT CONTRAST, 05/13/2017, 18:43. FINDINGS: Image quality: Excellent. CSF spaces: Basal cisterns are patent. No extra-axial fluid collections. The ventricles are symmetric in size and shape. Brain: No intracranial bleeds or masses. There is cerebral volume loss for age, with resultant ventricular and sulcal prominence. There are periventricular and deep white matter chronic small vessel ischemic changes. There is intracranial internal carotid artery atherosclerosis. Dense calcifications are present in the bilateral basal ganglia. Skull and face: Calvarium and visualized facial bones appear intact, without suspicious lesions. Sinuses: Visualized sinuses and mastoids are clear. IMPRESSION: 1. No acute intracranial findings. 2. Findings likely associated with chronic microvascular ischemic changes. Dictated by: Vanessa Patel M.D. on 06/25/2018 at 15:38 Approved by: Vanessa Patel M.D. on 06/25/2018 at 15:41
[2018-06-25 16:15] VITALS: BP 130/75; PULSE 59; RESP 20; O2SAT 97
== END 2018-06-25 16:15 | disposition home or self-care (01) ==
PROVIDERS: Emergency Provider Emergency Medicine; Family Provider Family Medicine; PCP Family Medicine
DX: S09.90XA Unspecified injury of head, initial encounter (principal); S00.93XA Contusion of unspecified part of head, initial encounter; W18.43XA Slipping, tripping and stumbling without falling due to stepping from one level to another, initial encounter
CPT/HCPCS: 70450; 81003; 99282; 99284

== ENCOUNTER → 2018-07-15 12:47 | Outpatient (CLI) | payer MEDICARE, MEDICAID, SELFPAY ==
[2018-07-15 13:16] LABS: Add Manual Diff / Slide Review NO; Basophils Percent Auto 1.3 % (0-2); Eosinophils Percent Auto 3.7 % (2-4); Hematocrit 33.7 % (36-46); Hemoglobin 11.1 g/dL (12.0-16.0); Lymphocytes Percent Auto 25.4 % (25-40); Mean Corpuscular Hemoglobin 26.9 PG (26-34); Mean Corpuscular Volume 81.6 fL (80-100); Monocytes Percent Auto 7.8 % (3-14); Neutrophils Absolute Auto 4100 /uL (3000-5900); Neutrophils Percent Auto 61.8 % (50-75); Platelet Count 218 X10^3/uL (150-400); Red Blood Cell Count 4.13 X10^6/uL (4.0-5.2); Red Cell Distribution Width 17.1 % (11.6-14.8); White Blood Cell Count 6.6 X10^3/uL (4.5-11.0)
[2018-07-15 13:28] LABS: Alanine Aminotransferase 18 IU/L (9-52); Albumin 4.2 g/dL (3.5-5.0); Albumin Globulin Ratio 1.4 (1.0-2.8); Alkaline Phosphatase 105 U/L (38-126); Aspartate Aminotransferase 23 IU/L (14-36); BUN Creatinine Ratio 22.3 (6-22); Bilirubin Total 0.3 mg/dL (0.2-1.3); Blood Urea Nitrogen 29 mg/dL (7-17); Calcium 9.2 mg/dL (8.4-10.2); Carbon Dioxide 27 mmol/L (22-32); Chloride 105 mmol/L (98-107); Estimated Glomerular Filt Rate 40.2 mL/min (>60); Globulin 2.9 g/dL (1.7-4.1); Glucose 105 mg/dL (80-110); HEMOLYSIS < 15 (0-50); Sodium 146 mmol/L (137-145); Total Protein 7.1 g/dL (6.3-8.2)
== END ==
PROVIDERS: Family Provider Family Medicine; PCP Family Medicine; Visit Provider Family Medicine
DX: D64.9 Anemia, unspecified (principal); Z01.812 Encounter for preprocedural laboratory examination
CPT/HCPCS: 36415; 80053; 85014; 85018; 85025

== ENCOUNTER 2018-08-30 14:30 | Outpatient (RCR) | payer MEDICARE, MEDICAID, SELFPAY ==
--- NOTE | 2018-02-09 16:40 | PT.OIE ---
Current Diagnoses Radiculopathy, cervical region (02/09/18) Past Medical History (Last Reviewed 02/07/18 @ 14:08 by Sena Dhillon LPN) Abnormal Pap smear of cervix (Chronic ~1956) Anemia (Chronic) Ankle pain (Chronic) Anxiety (Chronic) Arachnoiditis (Chronic) Atrial fibrillation (Chronic) Cataracts, bilateral (Chronic) Cervical spine disease (Chronic) Chronic back pain (Chronic) Cystic fibrosis (Chronic ~1956) Cystic fibrosis (Chronic ~1956) Degenerative joint disease (DJD) of lumbar spine (Chronic) Depression (Chronic) Fibromyalgia (Chronic) Fibromyalgia (Chronic) Foot pain (Chronic) GERD (gastroesophageal reflux disease) (Chronic) GI bleeding (Chronic) Heavy menstrual period (Chronic) Hypertension (Chronic) Kidney stones (Chronic) Osteoporosis (Chronic) Pneumonia (Chronic) Post traumatic stress disorder (PTSD) (Chronic) Restless leg syndrome (Chronic) Rheumatoid arthritis (Chronic) Scoliosis (Chronic) Skin cancer (Chronic ~1996) Stroke (Chronic) Vertigo (Chronic ~1968) Past Surgical History (Last Reviewed 02/07/18 @ 14:08 by Sena Dhillon LPN) History of back surgery (Chronic) History of neck surgery (Chronic) History of hip replacement History of knee replacement (11/29/16) S/P total abdominal hysterectomy and bilateral salpingo-oophorectomy Status post appendectomy Status post bunionectomy (08/11/15) Status post cholecystectomy Status post tonsillectomy and adenoidectomy Status post tubal ligation Provider Visit Care Team Role Provider Type Bill Silva MD Primary Care Provider Physician Specialty: Family Practice Address: [address] [place] [address], [id number] Email: [email or web address] [email or web address] Aburto MD Family Provider Physician Specialty: Family Practice Address: [facility] [address], [place], [address] Email: Shainqua Armas MD Attending Provider Physician Specialty: Orthopedic Surgery Address: [address] [place] [address], [id number] Email: [email or web address] Physical Therapy Initial Evaluation PT-OP-A Visit Information Start: 02/09/18 15:29 Freq: Status: Active Protocol: Document 02/09/18 15:30 RCC (Rec: 02/09/18 16:02 RCC [email or web address]) Out-Patient Physical Therapy Visit Information Visit Information Visit Type Initial Evaluation Visit Start Time 14:35 Visit Stop Time 15:30 Total Visit Minutes 55 Visit Number 1 Number of FLEET SERVICE MANAGER Visits 0 Evaluation Information Evaluation Date 02/09/18 PT-OP-B Current Condition Start: 02/09/18 15:29 Freq: Status: Active Protocol: Document 02/09/18 15:30 RCC (Rec: 02/09/18 16:02 RCC [email or web address]) Current Condition History of Current Condition Onset Date May 2017 Current Complaints Neck pain, HAs, poor balance History of Current Condition Pt is a 73 y/o female presenting to physical therapy with a c/o head and neck pain s/p GLF in May of 2017 and then again in December 2017. Pt has a long h/o chronic neck and back pain, with 2+ neck surgeries (C3-7 fusion) and 10 + lumbar spine surgeries. Pt with increased pain s/p fall outdoors when stepping onto a loose rock, falling forward onto her face. She also fractured a rib and injured her elbow on the L side. Pt notes that pain in head and neck is worse while trying to sleep, which causes her to lose sleep and be in pain in the morning time. She uses both ice and heat. She no longer has a usable neck brace for support with sleep. Pt would like to get back to walking outdoors for exercise. She had a follow up with orthopedic group, who stated that pt is not a good candidate for surgery at this point due to age and multiple surgeries. Prior Treatments and Tests prior PT with some success in decreasing pain. Treatment Goals Patient/Caregiver Goals Get back to a walking program at home. Prior Functional Status Baseline Function- ADL's Modified Independent Baseline Function- Mobility Independent Baseline Function- Gait short community distances without device Current Functional Impairments (Reported) Functional Limitations- Mobility/Gait Decreased distances of gait since previous fall. Personal Factors Other Personal Factors That May Effect chronicity of condition, Therapy/Recovery multiple neck and back surgeries, depression/anxiety, arachnoiditis. PT-OP-C Subjective Start: 02/09/18 15:29 Freq: Status: Active Protocol: Document 02/09/18 15:30 RCC (Rec: 02/09/18 16:02 RCC [email or web address]) OP-PT Subjective Patient Comments Patient Comments Pt notes that pain decreased after manual therapy and heat pack. Patient Questionnaires Neck Disability Index NDI Score 30 (out of 45- missed one section) Neck Disability Index Impairment 60 to 79% Impaired (Score 30- 39) OP-PT Pain Assessment Location Bilateral Neck Pain Location Details 7 Scale Used Numeric (1 - 10) Description Sharp Spasm Tender Frequency Frequent Pain Aggravating Factors Changing Position Lifting Pain Alleviating Factors Cold Heat Other Pain Alleviating Factors bracing but pt's brace now not functioning properly. PT-OP-D Balance Start: 02/09/18 15:29 Freq: Status: Active Protocol: Document 02/09/18 15:30 RCC (Rec: 02/09/18 16:37 RCC [email or web address]) Balance Tests Single Limb Standing Single Limb- Right 3 sec Single Limb- Left 4 sec Tandem Tandem Standing L posterior 10 sec, R posterior 3 sec Other Other Balance Tests Performed Narrow stance: eyes open 20 sec with increased sway, eyes closed 4 sec PT-OP-E Functional Tests Start: 02/09/18 16:37 Freq: Status: Active Protocol: Document 02/09/18 15:30 RCC (Rec: 02/09/18 16:38 RCC [email or web address]) Functional Tests Timed Up and Go (TUG) Score 12.41 TUG Impairment Rating 20 to <40% Impaired (Score 12- 13) PT-OP-F Manual Assessment Start: 02/09/18 15:29 Freq: Status: Active Protocol: Document 02/09/18 15:30 RCC (Rec: 02/09/18 16:37 RCC [email or web address]) Manual Assessments Soft Tissue Assessment Soft Tissue Mobility Assessment Increased tension: bilateral levator, UT, suboccipitals, SCM, scalenes. PT-OP-J Posture/Palpation/Skin Start: 02/09/18 15:29 Freq: Status: Active Protocol: Document 02/09/18 15:30 RCC (Rec: 02/09/18 16:37 RCC [email or web address]) Posture Evaluation Position Standing Evaluation View Lateral Head/C-Spine Posture Forward Head T-Spine Posture Increased Kyphosis PT-OP-K Range of Motion Start: 02/09/18 15:29 Freq: Status: Active Protocol: Document 02/09/18 15:30 RCC (Rec: 02/09/18 16:37 RCC [email or web address]) Cervical Spine Range of Motion Cervical Spine Active Degrees Testing Position Sitting Flexion 20 Extension 15 Rotation Left 34 Rotation Right 38 Lateral Flexion Left 12 Lateral Flexion Right 10 ROM Limitations Soft Tissue Tightness Bony Restriction Muscle Tone Pain PT-OP-L Special Tests Start: 02/09/18 15:29 Freq: Status: Active Protocol: Document 02/09/18 15:30 RCC (Rec: 02/09/18 16:37 RCC [email or web address]) Special Tests Cervical Spine Special Tests Spurling's Test Test Results pain bilaterally PT-OP-M Strength Start: 02/09/18 15:29 Freq: Status: Active Protocol: Document 02/09/18 15:30 RCC (Rec: 02/09/18 16:37 RCC [email or web address]) Scapula Strength Scapula Manual Muscle Testing Right Elevation (C4) 4 Good Left Elevation (C4) 4- Good- Shoulder Strength Shoulder Manual Muscle Testing Right Flexion 4 Good Abduction (C5) 4 Good External Rotation 4- Good- Internal Rotation 4 Good Left Flexion 4 Good Abduction (C5) 3+ Fair+ External Rotation 3+ Fair+ Internal Rotation 3+ Fair+ Hip Strength Hip Manual Muscle Testing Right Flexion (L2) 3+ Fair+ Adduction 5 Normal Left Flexion (L2) 4 Good Adduction 5 Normal Knee Strength Knee Manual Muscle Testing Right Flexion (S2) 4 Good Extension (L3) 4- Good- Left Flexion (S2) 4+ Good+ Extension (L3) 4 Good Ankle/Foot Strength Ankle and Foot Manual Muscle Testing Right Dorsiflexion (L4) 4 Good Left Dorsiflexion (L4) 3 Fair PT-OP-Q Treatments Start: 02/09/18 15:29 Freq: Status: Active Protocol: Document 02/09/18 15:30 RCC (Rec: 02/09/18 16:37 RCC [email or web address]) Manual Therapy Treatment Soft Tissue Mobilization 3 Body Location levator scapula Mobilization Type Strumming Intensity/Depth Superficial Body Position Hooklying Comments bilateral 2 Body Location suboccipitals Mobilization Type Myofascial Release Intensity/Depth Moderate Body Position Hooklying Comments bilateral 1 Body Location upper trapezius Mobilization Type Strumming Intensity/Depth Superficial Body Position Hooklying Comments bilateral PT-OP-R Modalities Start: 02/09/18 15:29 Freq: Status: Active Protocol: Document 02/09/18 15:30 RCC (Rec: 02/09/18 16:37 RCC [email or web address]) Hot Pack/Cold Pack Treatment Hot Pack Location cervical spine Patient Position Sitting Treatment Duration (minutes) 15 Patient Tolerance Good PT-OP-T Assessment and Plan Start: 02/09/18 15:29 Freq: Status: Active Protocol: Document 02/09/18 15:30 RCC (Rec: 02/09/18 16:37 RCC [email or web address]) Physical Therapy Assessment Rehab Potential Rehabilitation Potential Fair Evaluation Complexity Number of Personal Factors/Comorbidities 3 or More Number of Body Systems Impaired 4 or More Clinical Presentation at Evaluation Evolving Impairments Impairments Activity Tolerance Balance Functional Mobility Gait Posture ROM Soft Tissue Mobility Strength Goals Five Impairment Pt unable to participate in walking program at home Short Term Goal (STG) 10 min per day x 5 days per week of flat outdoor gait STG Duration 6 weeks Skilled Nursing Goal (LTG) 15 min per day x 5 days per week of flat outdoor gait. LTG Duration 12 weeks Four Impairment cervical spine ROM Short Term Goal (STG) flexion 30 deg extension 25 deg side-bending 20 deg bilaterally rotation 45 deg bilaterally STG Duration 6 weeks Orthotic Assistant Goal (LTG) flexion 40 deg extension 30 deg side-bending 25 deg bilaterally rotation 60 deg bilaterally LTG Duration 12 weeks Three Impairment Timed Up and Go (12.41 sec) Skilled Nursing Goal (LTG) Less than 11 seconds prior to d/c. LTG Duration 12 weeks Two Impairment Balance Short Term Goal (STG) Tandem standing: R posterior 10 sec, L posterior 15 sec Single limb stance: L 6 sec, R 6 sec STG Duration 6 weeks Skilled Nursing Goal (LTG) Tandem standing: R posterior 15 sec, L posterior 15 sec Single limb stance: L 8 sec, R 8 sec LTG Duration 12 weeks One Impairment pain rated 7/10 cervical spine Short Term Goal (STG) 5/10 STG Duration 6 weeks Orthotic Assistant Goal (LTG) 3/10 LTG Duration 12 weeks Assessment Summary Assessment Pt presents with a h/o of 2 falls since May of 2017, both of which causing increased head and neck pain. Pt's ROM is restricted severely in flexion/extension and sidebending, and moderately restricted in rotation. Pt overall has tension throughout the cervical spine, likely contributing to headache intensity and frequency. Pt's balance is impaired, and demonstrates a continued risk for falling which the pt would greatly benefit from participating in balance training during this episode of care to decrease the risk of falls. Pt responded well to manual therapy, and would benefit from continued manual therapy for soft tissue restrictions to improve ROM, decrease pain, and develop a home exercise program for general strengthening and participation in a weekly home walking program for overall health benefits. Physical Therapy Plan Frequency and Duration Frequency of Treatment 2x/Week Duration of Treatment 12 weeks Plan of Care Start Date 02/09/18 Plan of Care End Date 05/04/18 Therapeutic Interventions Therapeutic Interventions Aquatic Therapy Balance Training Gait Training Home Exercise Program Manual Therapy Neuromuscular Re-education Patient/Caregiver Education Self-Care/Home Management Soft Tissue Mobilization Therapeutic Activities Therapeutic Exercises Modalities Cold Pack/Ice Massage Electric Stimulation Hot Packs Ultrasound Next Visit Focus/Plan Next Note Type Treatment Note Next Visit Plan STR for cervical mm, standing balance (balance board, balloon volley on firm, standing on foam). Please Sign and Return: I have reviewed this Plan of Care and certify that the skilled therapy services above are required to meet the patient?s needs. Physician Signature Date Printed Name and Credentials Clinical Instructor Signature Printed Name and Credentials
--- NOTE | 2018-06-28 16:20 | PT.OTN ---
Current Diagnoses Radiculopathy, cervical region (06/28/18) Physical Therapy Treatment Note PT-OP-A Visit Information Start: 02/09/18 15:29 Freq: Status: Active Protocol: Document 06/28/18 16:20 RCC (Rec: 07/01/18 13:17 RCC [email or web address]) Out-Patient Physical Therapy Visit Information Visit Information Visit Type Treatment Note Visit Start Time 15:30 Visit Stop Time 16:20 Total Visit Minutes 50 Visit Number 2 Number of [employer]AST[employer] Visits 0 Evaluation Information Evaluation Date 02/09/18 PT-OP-B Current Condition Start: 02/09/18 15:29 Freq: Status: Active Protocol: Document 06/28/18 16:20 RCC (Rec: 07/01/18 13:17 RCC [email or web address]) Current Condition History of Current Condition Onset Date May 2017 Current Complaints Neck pain, HAs, poor balance History of Current Condition Pt is a 73 y/o female presenting to physical therapy with a c/o head and neck pain s/p GLF in May of 2017 and then again in December 2017. Pt has a long h/o chronic neck and back pain, with 2+ neck surgeries (C3-7 fusion) and 10 + lumbar spine surgeries. Pt with increased pain s/p fall outdoors when stepping onto a loose rock, falling forward onto her face. She also fractured a rib and injured her elbow on the L side. Pt notes that pain in head and neck is worse while trying to sleep, which causes her to lose sleep and be in pain in the morning time. She uses both ice and heat. She no longer has a usable neck brace for support with sleep. Pt would like to get back to walking outdoors for exercise. She had a follow up with orthopedic group, who stated that pt is not a good candidate for surgery at this point due to age and multiple surgeries. ADDENDUM: pt presents back to physical therapy on 06/28/18 with same c/o neck pain, another GLF at home hitting her head but no LOC and negative imaging. Neck pain is worse on the R compared to the L, she hit the L side of her head. She notes that she was wearing flip-flops and the toe bent as she did not clear her foot all the way, causing the fall. She is unable to sleep at night due to stiffness and pain in the neck. She is no longer on narcotics due to pain. She would like to work on her balance and decrease neck pain . Referral from Dr. Silva for continued therapy for neck, back pain, weakness. Prior Treatments and Tests prior PT with some success in decreasing pain. PT-OP-C Subjective Start: 02/09/18 15:29 Freq: Status: Active Protocol: Document 06/28/18 16:20 RCC (Rec: 07/01/18 13:17 RCC [email or web address]) OP-PT Subjective Patient Comments Patient Comments pt states that she has a referral for orthotics. She is still having trouble sleeping due to neck pain, no longer has the cervical soft collar she used prior which helped significantly when she would wear it at night. Patient Reported Progress Worse PT-OP-D Balance Start: 02/09/18 15:29 Freq: Status: Active Protocol: Document 06/28/18 16:20 RCC (Rec: 07/01/18 13:17 RCC [email or web address]) Balance Tests Single Limb Standing Single Limb- Right 2 sec Single Limb- Left 3 sec Tandem Tandem Standing L posterior 7 sec, R posterior 6 sec PT-OP-E Functional Tests Start: 02/09/18 16:37 Freq: Status: Active Protocol: Document 06/28/18 16:20 RCC (Rec: 07/01/18 13:17 RCC [email or web address]) Functional Tests Timed Up and Go (TUG) Score 15.5 TUG Impairment Rating 40 to <60% Impaired (Score 14- 15) PT-OP-F Manual Assessment Start: 02/09/18 15:29 Freq: Status: Active Protocol: Document 06/28/18 16:20 RCC (Rec: 07/01/18 13:17 RCC [email or web address]) Manual Assessments Soft Tissue Assessment Soft Tissue Mobility Assessment increased tension: bilateral suboccipitals, scalenes, levator, R UT and SCM. PT-OP-J Posture/Palpation/Skin Start: 02/09/18 15:29 Freq: Status: Active Protocol: Document 02/09/18 15:30 RCC (Rec: 02/09/18 16:37 RCC [email or web address]) Posture Evaluation Position Standing Evaluation View Lateral Head/C-Spine Posture Forward Head T-Spine Posture Increased Kyphosis PT-OP-K Range of Motion Start: 02/09/18 15:29 Freq: Status: Active Protocol: Document 06/28/18 16:20 RCC (Rec: 07/01/18 13:17 RCC [email or web address]) Cervical Spine Range of Motion Cervical Spine Active Degrees Testing Position Sitting Flexion 30 Extension 18 Rotation Left 45 Rotation Right 37 Lateral Flexion Left 14 Lateral Flexion Right 12 ROM Limitations Soft Tissue Tightness Bony Restriction Muscle Tone Pain PT-OP-L Special Tests Start: 02/09/18 15:29 Freq: Status: Active Protocol: Document 02/09/18 15:30 RCC (Rec: 02/09/18 16:37 RCC [email or web address]) Special Tests Cervical Spine Special Tests Spurling's Test Test Results pain bilaterally PT-OP-M Strength Start: 02/09/18 15:29 Freq: Status: Active Protocol: Document 06/28/18 16:20 RCC (Rec: 07/01/18 13:17 RCC [email or web address]) Hip Strength Hip Manual Muscle Testing Right Flexion (L2) 3+ Fair+ Adduction 5 Normal Left Flexion (L2) 3+ Fair+ Adduction 5 Normal Knee Strength Knee Manual Muscle Testing Right Flexion (S2) 4 Good Extension (L3) 4- Good- Left Flexion (S2) 4- Good- Extension (L3) 4- Good- Ankle/Foot Strength Ankle and Foot Manual Muscle Testing Right Dorsiflexion (L4) 4 Good Left Dorsiflexion (L4) 4 Good PT-OP-Q Treatments Start: 02/09/18 15:29 Freq: Status: Active Protocol: Document 06/28/18 16:20 RCC (Rec: 07/01/18 13:17 RCC [email or web address]) Therapeutic Exercises Supine Exercises chin tuck Supine Exercise Name chin tuck (gentle) Side bilateral Equipment Used 2 pillow Reps/Minutes 10 Standing Exercises hip abd Standing Exercise Name hip abduction Side bilateral Resistance 0 lbs Equipment Used standing bar Reps/Minutes 6 each Comments VC and demonstration to prevent hip flexion knee flexion Standing Exercise Name HS curls Side bilateral Resistance 0 lbs Equipment Used standing bar Reps/Minutes 10 each Comments VC and demonstration to prevent hip flexion with increased knee flex. Therapeutic Activity Therapeutic Activity objective testing Comments balance testing, TUG Manual Therapy Treatment Other Other Manual Treatments LE MMT, cervical ROM PT-OP-R Modalities Start: 02/09/18 15:29 Freq: Status: Active Protocol: Document 02/09/18 15:30 RCC (Rec: 02/09/18 16:37 RCC [email or web address]) Hot Pack/Cold Pack Treatment Hot Pack Location cervical spine Patient Position Sitting Treatment Duration (minutes) 15 Patient Tolerance Good PT-OP-T Assessment and Plan Start: 02/09/18 15:29 Freq: Status: Active Protocol: Document 06/28/18 16:20 RCC (Rec: 07/01/18 13:17 RCC [email or web address]) Physical Therapy Assessment Goals Five Impairment Pt unable to participate in walking program at home Short Term Goal (STG) 10 min per day x 5 days per week of flat outdoor gait 06/28/18: no change STG Duration 6 weeks Correction Goal (LTG) 15 min per day x 5 days per week of flat outdoor gait. LTG Duration 12 weeks Four Impairment cervical spine ROM Short Term Goal (STG) flexion 30 deg extension 25 deg side-bending 20 deg bilaterally rotation 45 deg bilaterally 06/28/18: some progress STG Duration 6 weeks [place] [employer] Goal (LTG) flexion 40 deg extension 30 deg side-bending 25 deg bilaterally rotation 60 deg bilaterally LTG Duration 12 weeks Three Impairment Timed Up and Go (12.41 sec) [place] [employer] Goal (LTG) Less than 11 seconds prior to d/c. 06/28/18: worse score LTG Duration 12 weeks Two Impairment Balance Short Term Goal (STG) Tandem standing: R posterior 10 sec, L posterior 15 sec Single limb stance: L 6 sec, R 6 sec STG Duration 6 weeks [place] [employer] Goal (LTG) Tandem standing: R posterior 15 sec, L posterior 15 sec Single limb stance: L 8 sec, R 8 sec LTG Duration 12 weeks One Impairment pain rated 7/10 cervical spine Short Term Goal (STG) 5/10 STG Duration 6 weeks Correction Goal (LTG) 3/10 LTG Duration 12 weeks Assessment Summary Assessment Pt presents back to skilled physical therapy s/p fall, with c/o neck pain, LE weakness, and impaired gait tolerance. Pt is unable to sleep at night much due to pain. In the past she wore a soft collar to prevent excessive pain in the neck, but does not have on anymore. Pt would benefit from a soft collar for home use and pain management to improve sleeping tolerance and promote healing from injuries s/p fall. Pt is a good candidate for skilled physical therapy as she is highly motivated to improve her condition, and has caregiver support to become consistent with a home exercise program. She is still at risk for falls, her TUG score was worse today than on initial evaluation. Physical Therapy Plan Frequency and Duration Frequency of Treatment 1x/Week Duration of Treatment 12 weeks Plan of Care Start Date 06/28/18 Plan of Care End Date 09/20/18 Therapeutic Interventions Therapeutic Interventions Aquatic Therapy Balance Training Gait Training Home Exercise Program Manual Therapy Neuromuscular Re-education Patient/Caregiver Education Self-Care/Home Management Soft Tissue Mobilization Therapeutic Activities Therapeutic Exercises Modalities Cold Pack/Ice Massage Electric Stimulation Hot Packs Ultrasound Other Referrals/Consults Referrals/Consults Recommended soft collar for the cervical spine for home use and assist to decrease pain and improve sleep. Next Visit Focus/Plan Next Note Type Treatment Note Next Visit Plan progress HEP for standing balance, STR as tolerated for cervical mm.
--- NOTE | 2018-06-28 16:20 | PT.OPPOC ---
Current Diagnoses Radiculopathy, cervical region (06/28/18) Provider Visit Care Team Role Provider Type Bill Silva MD Primary Care Provider Physician Specialty: Family Practice Address: [address] [place] [address], [id number] Email: [email or web address] Adria Aburto MD Family Provider Physician Specialty: Family Practice Address: [address], [address] Email: Shaniqua Armas MD Attending Provider Physician Specialty: Orthopedic Surgery Address: [address] [place] [address], [id number] Email: [email or web address] Plan Of Care PT-OP-T Assessment and Plan Start: 02/09/18 15:29 Freq: Status: Active Protocol: Document 06/28/18 16:20 RCC (Rec: 07/01/18 13:17 [email or web address]) Physical Therapy Assessment Goals Five Impairment Pt unable to participate in walking program at home Short Term Goal (STG) 10 min per day x 5 days per week of flat outdoor gait 06/28/18: no change STG Duration 6 weeks Skilled Nursing Goal (LTG) 15 min per day x 5 days per week of flat outdoor gait. LTG Duration 12 weeks Four Impairment cervical spine ROM Short Term Goal (STG) flexion 30 deg extension 25 deg side-bending 20 deg bilaterally rotation 45 deg bilaterally 06/28/18: some progress STG Duration 6 weeks Mattress Filling Machine Tender Goal (LTG) flexion 40 deg extension 30 deg side-bending 25 deg bilaterally rotation 60 deg bilaterally LTG Duration 12 weeks Three Impairment Timed Up and Go (12.41 sec) Skilled Nursing Goal (LTG) Less than 11 seconds prior to d/c. 06/28/18: worse score LTG Duration 12 weeks Two Impairment Balance Short Term Goal (STG) Tandem standing: R posterior 10 sec, L posterior 15 sec Single limb stance: L 6 sec, R 6 sec STG Duration 6 weeks Mattress Filling Machine Tender Goal (LTG) Tandem standing: R posterior 15 sec, L posterior 15 sec Single limb stance: L 8 sec, R 8 sec LTG Duration 12 weeks One Impairment pain rated 7/10 cervical spine Short Term Goal (STG) 5/10 STG Duration 6 weeks Skilled Nursing Goal (LTG) 3/10 LTG Duration 12 weeks Assessment Summary Assessment Pt presents back to skilled physical therapy s/p fall, with c/o neck pain, LE weakness, and impaired gait tolerance. Pt is unable to sleep at night much due to pain. In the past she wore a soft collar to prevent excessive pain in the neck, but does not have on anymore. Pt would benefit from a soft collar for home use and pain management to improve sleeping tolerance and promote healing from injuries s/p fall. Pt is a good candidate for skilled physical therapy as she is highly motivated to improve her condition, and has caregiver support to become consistent with a home exercise program. She is still at risk for falls, her TUG score was worse today than on initial evaluation. Physical Therapy Plan Frequency and Duration Frequency of Treatment 1x/Week Duration of Treatment 12 weeks Plan of Care Start Date 06/28/18 Plan of Care End Date 09/20/18 Therapeutic Interventions Therapeutic Interventions Aquatic Therapy Balance Training Gait Training Home Exercise Program Manual Therapy Neuromuscular Re-education Patient/Caregiver Education Self-Care/Home Management Soft Tissue Mobilization Therapeutic Activities Therapeutic Exercises Modalities Cold Pack/Ice Massage Electric Stimulation Hot Packs Ultrasound Other Referrals/Consults Referrals/Consults Recommended soft collar for the cervical spine for home use and assist to decrease pain and improve sleep. Next Visit Focus/Plan Next Note Type Treatment Note Next Visit Plan progress HEP for standing balance, STR as tolerated for cervical mm. Plan of Care Dates Plan of Care Start Date 06/28/18 Plan of Care End Date 09/20/18 Please Sign and Return: I have reviewed this Plan of Care and certify that the skilled therapy services above are required to meet the patient?s needs. Physician Signature Date Printed Name and Credentials Clinical Instructor Signature Printed Name and Credentials
--- NOTE | 2018-07-13 11:15 | PT.OTN ---
Current Diagnoses Radiculopathy, cervical region (07/13/18) Physical Therapy Treatment Note PT-OP-A Visit Information Start: 02/09/18 15:29 Freq: Status: Active Protocol: Document 07/13/18 11:15 RCC (Rec: 07/13/18 13:35 RCC [email or web address]) Out-Patient Physical Therapy Visit Information Visit Information Visit Type Treatment Note Visit Start Time 10:42 Visit Stop Time 11:25 Total Visit Minutes 43 Visit Number 3 Number of AIRFRAME AND POWERPLANT MECHANIC Visits 0 PT-OP-B Current Condition Start: 02/09/18 15:29 Freq: Status: Active Protocol: Document 06/28/18 16:20 RCC (Rec: 07/01/18 13:17 RCC [email or web address]) Current Condition History of Current Condition Onset Date May 2017 Current Complaints Neck pain, HAs, poor balance History of Current Condition Pt is a 73 y/o female presenting to physical therapy with a c/o head and neck pain s/p GLF in May of 2017 and then again in December 2017. Pt has a long h/o chronic neck and back pain, with 2+ neck surgeries (C3-7 fusion) and 10 + lumbar spine surgeries. Pt with increased pain s/p fall outdoors when stepping onto a loose rock, falling forward onto her face. She also fractured a rib and injured her elbow on the L side. Pt notes that pain in head and neck is worse while trying to sleep, which causes her to lose sleep and be in pain in the morning time. She uses both ice and heat. She no longer has a usable neck brace for support with sleep. Pt would like to get back to walking outdoors for exercise. She had a follow up with orthopedic group, who stated that pt is not a good candidate for surgery at this point due to age and multiple surgeries. ADDENDUM: pt presents back to physical therapy on 06/28/18 with same c/o neck pain, another GLF at home hitting her head but no LOC and negative imaging. Neck pain is worse on the R compared to the L, she hit the L side of her head. She notes that she was wearing flip-flops and the toe bent as she did not clear her foot all the way, causing the fall. She is unable to sleep at night due to stiffness and pain in the neck. She is no longer on narcotics due to pain. She would like to work on her balance and decrease neck pain . Referral from Dr. Silva for continued therapy for neck, back pain, weakness. Prior Treatments and Tests prior PT with some success in decreasing pain. PT-OP-C Subjective Start: 02/09/18 15:29 Freq: Status: Active Protocol: Document 07/13/18 11:15 RCC (Rec: 07/13/18 13:35 RCC [email or web address]) OP-PT Subjective Patient Comments Patient Comments Pt notes her neck has been sore, but is getting more tolerable getting through the day without pain meds. She is concerned with her leg strength and balance, which led to her fall recently and increased neck pain. PT-OP-D Balance Start: 02/09/18 15:29 Freq: Status: Active Protocol: Document 06/28/18 16:20 RCC (Rec: 07/01/18 13:17 RCC [email or web address]) Balance Tests Single Limb Standing Single Limb- Right 2 sec Single Limb- Left 3 sec Tandem Tandem Standing L posterior 7 sec, R posterior 6 sec PT-OP-E Functional Tests Start: 02/09/18 16:37 Freq: Status: Active Protocol: Document 06/28/18 16:20 RCC (Rec: 07/01/18 13:17 RCC [email or web address]) Functional Tests Timed Up and Go (TUG) Score 15.5 TUG Impairment Rating 40 to <60% Impaired (Score 14- 15) PT-OP-F Manual Assessment Start: 02/09/18 15:29 Freq: Status: Active Protocol: Document 06/28/18 16:20 RCC (Rec: 07/01/18 13:17 RCC [email or web address]) Manual Assessments Soft Tissue Assessment Soft Tissue Mobility Assessment increased tension: bilateral suboccipitals, scalenes, levator, R UT and SCM. PT-OP-J Posture/Palpation/Skin Start: 02/09/18 15:29 Freq: Status: Active Protocol: Document 02/09/18 15:30 RCC (Rec: 02/09/18 16:37 RCC [email or web address]) Posture Evaluation Position Standing Evaluation View Lateral Head/C-Spine Posture Forward Head T-Spine Posture Increased Kyphosis PT-OP-K Range of Motion Start: 02/09/18 15:29 Freq: Status: Active Protocol: Document 06/28/18 16:20 RCC (Rec: 07/01/18 13:17 RCC [email or web address]) Cervical Spine Range of Motion Cervical Spine Active Degrees Testing Position Sitting Flexion 30 Extension 18 Rotation Left 45 Rotation Right 37 Lateral Flexion Left 14 Lateral Flexion Right 12 ROM Limitations Soft Tissue Tightness Bony Restriction Muscle Tone Pain PT-OP-L Special Tests Start: 02/09/18 15:29 Freq: Status: Active Protocol: Document 02/09/18 15:30 RCC (Rec: 02/09/18 16:37 RCC [email or web address]) Special Tests Cervical Spine Special Tests Spurling's Test Test Results pain bilaterally PT-OP-M Strength Start: 02/09/18 15:29 Freq: Status: Active Protocol: Document 06/28/18 16:20 RCC (Rec: 07/01/18 13:17 RCC [email or web address]) Hip Strength Hip Manual Muscle Testing Right Flexion (L2) 3+ Fair+ Adduction 5 Normal Left Flexion (L2) 3+ Fair+ Adduction 5 Normal Knee Strength Knee Manual Muscle Testing Right Flexion (S2) 4 Good Extension (L3) 4- Good- Left Flexion (S2) 4- Good- Extension (L3) 4- Good- Ankle/Foot Strength Ankle and Foot Manual Muscle Testing Right Dorsiflexion (L4) 4 Good Left Dorsiflexion (L4) 4 Good PT-OP-Q Treatments Start: 02/09/18 15:29 Freq: Status: Active Protocol: Document 07/13/18 11:15 RCC (Rec: 07/13/18 13:35 RCC [email or web address]) Gym Equipment Shuttle Recovery Unilateral Squats Resistance 50 lbs Shuttle Recovery Platform Stable Reps/Time 1x15 each Bilateral Squats Resistance 75 lbs Shuttle Recovery Platform Stable Reps/Time 1x15 Therapeutic Ball 1 Exercise Details B knee flex/extension, LTR Ball Size/Color 55 cm Body Position Supine Reps/Duration 10 each Comments emphasis on core stability Therapeutic Exercises Supine Exercises hip abduction Supine Exercise Name hip abduction Side bilateral Resistance L2 then L3 Reps/Minutes x20 each Standing Exercises scapular retraction Standing Exercise Name scapular retraction with emphasis on posture and balance (firm surface) Side bilateral Resistance L2 Reps/Minutes 1x20 PT-OP-R Modalities Start: 02/09/18 15:29 Freq: Status: Active Protocol: Document 07/13/18 11:15 RCC (Rec: 07/13/18 13:35 RCC [email or web address]) Hot Pack/Cold Pack Treatment Hot Pack Location cervical spine Patient Position Supine Treatment Duration (minutes) 10 Patient Tolerance Good Comments bolster under LEs PT-OP-T Assessment and Plan Start: 02/09/18 15:29 Freq: Status: Active Protocol: Document 07/13/18 11:15 RCC (Rec: 07/13/18 13:35 RCC [email or web address]) Physical Therapy Assessment Assessment Summary Assessment Pt late 12 min today. Pt tolerated exercise well, but requires increased amount of time to perform all activities and significant cuing for posture during standing activities. Pt with mild increased sway performing standing shoulder retraction, but plan to progress toward unstable surfaces as tolerated to improve posture and balance. Physical Therapy Plan Frequency and Duration Frequency of Treatment 1x/Week Duration of Treatment 12 weeks Plan of Care Start Date 06/28/18 Plan of Care End Date 09/20/18 Next Visit Focus/Plan Next Note Type Treatment Note Next Visit Plan neck stability, posture, LE strength and balance (Shuttle balance vs. balance/tilt board ).
--- NOTE | 2018-08-11 10:30 | PT.OTN ---
Current Diagnoses Radiculopathy, cervical region (08/11/18) Physical Therapy Treatment Note PT-OP-A Visit Information Start: 02/09/18 15:29 Freq: Status: Active Protocol: Document 08/11/18 10:30 RCC (Rec: 08/11/18 17:18 RCC [email or web address]) Out-Patient Physical Therapy Visit Information Visit Information Visit Type Treatment Note Visit Start Time 09:48 Visit Stop Time 10:30 Total Visit Minutes 42 Visit Number 4 Number of SAND SLINGER OPERATOR Visits 0 Evaluation Information Evaluation Date 02/09/18 PT-OP-B Current Condition Start: 02/09/18 15:29 Freq: Status: Active Protocol: Document 06/28/18 16:20 RCC (Rec: 07/01/18 13:17 RCC [email or web address]) Current Condition History of Current Condition Onset Date May 2017 Current Complaints Neck pain, HAs, poor balance History of Current Condition Pt is a 73 y/o female presenting to physical therapy with a c/o head and neck pain s/p GLF in May of 2017 and then again in December 2017. Pt has a long h/o chronic neck and back pain, with 2+ neck surgeries (C3-7 fusion) and 10 + lumbar spine surgeries. Pt with increased pain s/p fall outdoors when stepping onto a loose rock, falling forward onto her face. She also fractured a rib and injured her elbow on the L side. Pt notes that pain in head and neck is worse while trying to sleep, which causes her to lose sleep and be in pain in the morning time. She uses both ice and heat. She no longer has a usable neck brace for support with sleep. Pt would like to get back to walking outdoors for exercise. She had a follow up with orthopedic group, who stated that pt is not a good candidate for surgery at this point due to age and multiple surgeries. ADDENDUM: pt presents back to physical therapy on 06/28/18 with same c/o neck pain, another GLF at home hitting her head but no LOC and negative imaging. Neck pain is worse on the R compared to the L, she hit the L side of her head. She notes that she was wearing flip-flops and the toe bent as she did not clear her foot all the way, causing the fall. She is unable to sleep at night due to stiffness and pain in the neck. She is no longer on narcotics due to pain. She would like to work on her balance and decrease neck pain . Referral from Dr. Silva for continued therapy for neck, back pain, weakness. Prior Treatments and Tests prior PT with some success in decreasing pain. PT-OP-C Subjective Start: 02/09/18 15:29 Freq: Status: Active Protocol: Document 08/11/18 10:30 RCC (Rec: 08/11/18 17:18 RCC [email or web address]) OP-PT Subjective Patient Comments Patient Comments Pt's L side of neck sore today . Her balance is off today, but has been better recently. She is still having increased pain with sleeping (not yet able to get her neck collar). PT-OP-D Balance Start: 02/09/18 15:29 Freq: Status: Active Protocol: Document 06/28/18 16:20 RCC (Rec: 07/01/18 13:17 RCC [email or web address]) Balance Tests Single Limb Standing Single Limb- Right 2 sec Single Limb- Left 3 sec Tandem Tandem Standing L posterior 7 sec, R posterior 6 sec PT-OP-E Functional Tests Start: 02/09/18 16:37 Freq: Status: Active Protocol: Document 06/28/18 16:20 RCC (Rec: 07/01/18 13:17 RCC [email or web address]) Functional Tests Timed Up and Go (TUG) Score 15.5 TUG Impairment Rating 40 to <60% Impaired (Score 14- 15) PT-OP-F Manual Assessment Start: 02/09/18 15:29 Freq: Status: Active Protocol: Document 06/28/18 16:20 RCC (Rec: 07/01/18 13:17 RCC [email or web address]) Manual Assessments Soft Tissue Assessment Soft Tissue Mobility Assessment increased tension: bilateral suboccipitals, scalenes, levator, R UT and SCM. PT-OP-J Posture/Palpation/Skin Start: 02/09/18 15:29 Freq: Status: Active Protocol: Document 02/09/18 15:30 RCC (Rec: 02/09/18 16:37 RCC [email or web address]) Posture Evaluation Position Standing Evaluation View Lateral Head/C-Spine Posture Forward Head T-Spine Posture Increased Kyphosis PT-OP-K Range of Motion Start: 02/09/18 15:29 Freq: Status: Active Protocol: Document 06/28/18 16:20 RCC (Rec: 07/01/18 13:17 RCC [email or web address]) Cervical Spine Range of Motion Cervical Spine Active Degrees Testing Position Sitting Flexion 30 Extension 18 Rotation Left 45 Rotation Right 37 Lateral Flexion Left 14 Lateral Flexion Right 12 ROM Limitations Soft Tissue Tightness Bony Restriction Muscle Tone Pain PT-OP-L Special Tests Start: 02/09/18 15:29 Freq: Status: Active Protocol: Document 02/09/18 15:30 RCC (Rec: 02/09/18 16:37 RCC [email or web address]) Special Tests Cervical Spine Special Tests Spurling's Test Test Results pain bilaterally PT-OP-M Strength Start: 02/09/18 15:29 Freq: Status: Active Protocol: Document 06/28/18 16:20 RCC (Rec: 07/01/18 13:17 RCC [email or web address]) Hip Strength Hip Manual Muscle Testing Right Flexion (L2) 3+ Fair+ Adduction 5 Normal Left Flexion (L2) 3+ Fair+ Adduction 5 Normal Knee Strength Knee Manual Muscle Testing Right Flexion (S2) 4 Good Extension (L3) 4- Good- Left Flexion (S2) 4- Good- Extension (L3) 4- Good- Ankle/Foot Strength Ankle and Foot Manual Muscle Testing Right Dorsiflexion (L4) 4 Good Left Dorsiflexion (L4) 4 Good PT-OP-Q Treatments Start: 02/09/18 15:29 Freq: Status: Active Protocol: Document 08/11/18 10:30 RCC (Rec: 08/11/18 17:18 RCC [email or web address]) Gym Equipment Shuttle Recovery Unilateral Squats Resistance 50 lbs Shuttle Recovery Platform Stable Reps/Time 1x15 each Bilateral Squats Resistance 75 lbs Shuttle Recovery Platform Stable Reps/Time 1x15 Therapeutic Exercises Standing Exercises postural training Standing Exercise Name standing posture training with mirror for visual feedback Side bilateral Equipment Used mirror Reps/Minutes 8 min Comments tactile cuing shoulders, TrAb activation, head/neck position scapular retraction Standing Exercise Name scapular retraction with emphasis on posture and balance (firm surface) Side bilateral Resistance L2 Reps/Minutes 1x20 Manual Therapy Treatment Soft Tissue Mobilization 3 Body Location levator scapula Mobilization Type Strumming Intensity/Depth Superficial Body Position Hooklying Comments left 1 Body Location upper trapezius Mobilization Type Strumming Intensity/Depth Superficial Body Position Hooklying Comments left PT-OP-R Modalities Start: 02/09/18 15:29 Freq: Status: Active Protocol: Document 08/11/18 10:30 RCC (Rec: 08/11/18 17:18 RCC [email or web address]) Hot Pack/Cold Pack Treatment Hot Pack Location cervical spine Patient Position Supine Treatment Duration (minutes) 10 Patient Tolerance Good Comments bolster under LEs PT-OP-T Assessment and Plan Start: 02/09/18 15:29 Freq: Status: Active Protocol: Document 08/11/18 10:30 RCC (Rec: 08/11/18 17:18 [facility] [email or web address]) Physical Therapy Assessment Assessment Summary Assessment Cervical neck collar provided today to pt with MD signed referral. Pt overall had increased tension in the L levator and upper trapezius, likely due to impaired posture . She required extensive training with mirror for visual feedback, as well as tactile cuing to decrease the amount of scapular and shoulder elevation in standing . Physical Therapy Plan Frequency and Duration Frequency of Treatment 1x/Week Duration of Treatment 12 weeks Plan of Care Start Date 06/28/18 Plan of Care End Date 09/20/18 Next Visit Focus/Plan Next Note Type Treatment Note Next Visit Plan Balance training, cont. LE strengthening, postural training.
--- NOTE | 2018-08-16 15:13 | PT.OTN ---
Current Diagnoses Radiculopathy, cervical region (08/16/18) Physical Therapy Treatment Note PT-OP-A Visit Information Start: 02/09/18 15:29 Freq: Status: Active Protocol: Document 08/16/18 15:13 RCC (Rec: 08/16/18 15:18 [email or web address]) Out-Patient Physical Therapy Visit Information Visit Information Visit Type Treatment Note Visit Start Time 14:45 Visit Stop Time 15:13 Total Visit Minutes 28 Visit Number 5 Number of ORDER CONTROL CLERK BLOOD BANK Visits 0 Evaluation Information Evaluation Date 02/09/18 PT-OP-B Current Condition Start: 02/09/18 15:29 Freq: Status: Active Protocol: Document 06/28/18 16:20 RCC (Rec: 07/01/18 13:17 RCC [email or web address]) Current Condition History of Current Condition Onset Date May 2017 Current Complaints Neck pain, HAs, poor balance History of Current Condition Pt is a 73 y/o female presenting to physical therapy with a c/o head and neck pain s/p GLF in May of 2017 and then again in December 2017. Pt has a long h/o chronic neck and back pain, with 2+ neck surgeries (C3-7 fusion) and 10 + lumbar spine surgeries. Pt with increased pain s/p fall outdoors when stepping onto a loose rock, falling forward onto her face. She also fractured a rib and injured her elbow on the L side. Pt notes that pain in head and neck is worse while trying to sleep, which causes her to lose sleep and be in pain in the morning time. She uses both ice and heat. She no longer has a usable neck brace for support with sleep. Pt would like to get back to walking outdoors for exercise. She had a follow up with orthopedic group, who stated that pt is not a good candidate for surgery at this point due to age and multiple surgeries. ADDENDUM: pt presents back to physical therapy on 06/28/18 with same c/o neck pain, another GLF at home hitting her head but no LOC and negative imaging. Neck pain is worse on the R compared to the L, she hit the L side of her head. She notes that she was wearing flip-flops and the toe bent as she did not clear her foot all the way, causing the fall. She is unable to sleep at night due to stiffness and pain in the neck. She is no longer on narcotics due to pain. She would like to work on her balance and decrease neck pain . Referral from Dr. Silva for continued therapy for neck, back pain, weakness. Prior Treatments and Tests prior PT with some success in decreasing pain. PT-OP-C Subjective Start: 02/09/18 15:29 Freq: Status: Active Protocol: Document 08/16/18 15:13 RCC (Rec: 08/16/18 15:18 RCC [email or web address]) OP-PT Subjective Patient Comments Patient Comments Pt reports that she has no increase in pain since starting PT. PT-OP-D Balance Start: 02/09/18 15:29 Freq: Status: Active Protocol: Document 06/28/18 16:20 RCC (Rec: 07/01/18 13:17 RCC [email or web address]) Balance Tests Single Limb Standing Single Limb- Right 2 sec Single Limb- Left 3 sec Tandem Tandem Standing L posterior 7 sec, R posterior 6 sec PT-OP-E Functional Tests Start: 02/09/18 16:37 Freq: Status: Active Protocol: Document 06/28/18 16:20 RCC (Rec: 07/01/18 13:17 RCC [email or web address]) Functional Tests Timed Up and Go (TUG) Score 15.5 TUG Impairment Rating 40 to <60% Impaired (Score 14- 15) PT-OP-F Manual Assessment Start: 02/09/18 15:29 Freq: Status: Active Protocol: Document 06/28/18 16:20 RCC (Rec: 07/01/18 13:17 RCC [email or web address]) Manual Assessments Soft Tissue Assessment Soft Tissue Mobility Assessment increased tension: bilateral suboccipitals, scalenes, levator, R UT and SCM. PT-OP-J Posture/Palpation/Skin Start: 02/09/18 15:29 Freq: Status: Active Protocol: Document 02/09/18 15:30 RCC (Rec: 02/09/18 16:37 RCC [email or web address]) Posture Evaluation Position Standing Evaluation View Lateral Head/C-Spine Posture Forward Head T-Spine Posture Increased Kyphosis PT-OP-K Range of Motion Start: 02/09/18 15:29 Freq: Status: Active Protocol: Document 06/28/18 16:20 RCC (Rec: 07/01/18 13:17 RCC [email or web address]) Cervical Spine Range of Motion Cervical Spine Active Degrees Testing Position Sitting Flexion 30 Extension 18 Rotation Left 45 Rotation Right 37 Lateral Flexion Left 14 Lateral Flexion Right 12 ROM Limitations Soft Tissue Tightness Bony Restriction Muscle Tone Pain PT-OP-L Special Tests Start: 02/09/18 15:29 Freq: Status: Active Protocol: Document 02/09/18 15:30 RCC (Rec: 02/09/18 16:37 RCC [email or web address]) Special Tests Cervical Spine Special Tests Spurling's Test Test Results pain bilaterally PT-OP-M Strength Start: 02/09/18 15:29 Freq: Status: Active Protocol: Document 06/28/18 16:20 RCC (Rec: 07/01/18 13:17 RCC [email or web address]) Hip Strength Hip Manual Muscle Testing Right Flexion (L2) 3+ Fair+ Adduction 5 Normal Left Flexion (L2) 3+ Fair+ Adduction 5 Normal Knee Strength Knee Manual Muscle Testing Right Flexion (S2) 4 Good Extension (L3) 4- Good- Left Flexion (S2) 4- Good- Extension (L3) 4- Good- Ankle/Foot Strength Ankle and Foot Manual Muscle Testing Right Dorsiflexion (L4) 4 Good Left Dorsiflexion (L4) 4 Good PT-OP-Q Treatments Start: 02/09/18 15:29 Freq: Status: Active Protocol: Document 08/16/18 15:13 RCC (Rec: 08/16/18 15:18 RCC [email or web address]) Gym Equipment Shuttle Recovery Unilateral Squats Resistance 50 lbs Shuttle Recovery Platform Stable Reps/Time 1x15 each Bilateral Squats Resistance 75 lbs Shuttle Recovery Platform Stable Reps/Time 1x15 Therapeutic Exercises Standing Exercises scapular retraction Standing Exercise Name scapular retraction with emphasis on posture and balance (blue foam) Side bilateral Resistance L2 Reps/Minutes 1x20 Neuro Re-Education Treatment Balance Activities semi-tandem standing Surface blue foam Balance board Surface balance board- A/P and lateral Reps/Duration 6 min PT-OP-R Modalities Start: 02/09/18 15:29 Freq: Status: Active Protocol: Document 08/11/18 10:30 RCC (Rec: 08/11/18 17:18 RCC [email or web address]) Hot Pack/Cold Pack Treatment Hot Pack Location cervical spine Patient Position Supine Treatment Duration (minutes) 10 Patient Tolerance Good Comments bolster under LEs PT-OP-T Assessment and Plan Start: 02/09/18 15:29 Freq: Status: Active Protocol: Document 08/16/18 15:13 RCC (Rec: 08/16/18 15:18 RCC [email or web address]) Physical Therapy Assessment Assessment Summary Assessment Pt with better balance when RLE is posterior in semi- tandem standing. She has poor ankle strategy and posture increases weight distribution and stress on low back, requires cuing for posture. Physical Therapy Plan Frequency and Duration Frequency of Treatment 1x/Week Duration of Treatment 12 weeks Plan of Care Start Date 06/28/18 Plan of Care End Date 09/20/18 Next Visit Focus/Plan Next Note Type Treatment Note Next Visit Plan dynamic and static balance; LE and posture.
--- NOTE | 2018-08-30 15:15 | PT.OTN ---
Current Diagnoses Radiculopathy, cervical region (08/30/18) Physical Therapy Treatment Note PT-OP-A Visit Information Start: 02/09/18 15:29 Freq: Status: Active Protocol: Document 08/30/18 15:15 RCC (Rec: 08/30/18 16:55 RCC [email or web address]) Out-Patient Physical Therapy Visit Information Visit Information Visit Type Treatment Note Visit Start Time 14:50 Visit Stop Time 15:25 Total Visit Minutes 35 Visit Number 6 Number of MATERIAL REQUIREMENTS PLANNING MANAGER Visits 0 Evaluation Information Evaluation Date 02/09/18 Precautions Precautions fall risk PT-OP-B Current Condition Start: 02/09/18 15:29 Freq: Status: Active Protocol: Document 06/28/18 16:20 RCC (Rec: 07/01/18 13:17 RCC [email or web address]) Current Condition History of Current Condition Onset Date May 2017 Current Complaints Neck pain, HAs, poor balance History of Current Condition Pt is a 73 y/o female presenting to physical therapy with a c/o head and neck pain s/p GLF in May of 2017 and then again in December 2017. Pt has a long h/o chronic neck and back pain, with 2+ neck surgeries (C3-7 fusion) and 10 + lumbar spine surgeries. Pt with increased pain s/p fall outdoors when stepping onto a loose rock, falling forward onto her face. She also fractured a rib and injured her elbow on the L side. Pt notes that pain in head and neck is worse while trying to sleep, which causes her to lose sleep and be in pain in the morning time. She uses both ice and heat. She no longer has a usable neck brace for support with sleep. Pt would like to get back to walking outdoors for exercise. She had a follow up with orthopedic group, who stated that pt is not a good candidate for surgery at this point due to age and multiple surgeries. ADDENDUM: pt presents back to physical therapy on 06/28/18 with same c/o neck pain, another GLF at home hitting her head but no LOC and negative imaging. Neck pain is worse on the R compared to the L, she hit the L side of her head. She notes that she was wearing flip-flops and the toe bent as she did not clear her foot all the way, causing the fall. She is unable to sleep at night due to stiffness and pain in the neck. She is no longer on narcotics due to pain. She would like to work on her balance and decrease neck pain . Referral from Dr. Silva for continued therapy for neck, back pain, weakness. Prior Treatments and Tests prior PT with some success in decreasing pain. PT-OP-C Subjective Start: 02/09/18 15:29 Freq: Status: Active Protocol: Document 08/30/18 15:15 RCC (Rec: 08/30/18 16:55 RCC [email or web address]) OP-PT Subjective Patient Comments Patient Comments Pt states she had a episode at home that she got dizzy and fell, hitting her L shoulder. This occured 3 days ago. PT-OP-D Balance Start: 02/09/18 15:29 Freq: Status: Active Protocol: Document 06/28/18 16:20 RCC (Rec: 07/01/18 13:17 RCC [email or web address]) Balance Tests Single Limb Standing Single Limb- Right 2 sec Single Limb- Left 3 sec Tandem Tandem Standing L posterior 7 sec, R posterior 6 sec PT-OP-E Functional Tests Start: 02/09/18 16:37 Freq: Status: Active Protocol: Document 06/28/18 16:20 RCC (Rec: 07/01/18 13:17 RCC [email or web address]) Functional Tests Timed Up and Go (TUG) Score 15.5 TUG Impairment Rating 40 to <60% Impaired (Score 14- 15) PT-OP-F Manual Assessment Start: 02/09/18 15:29 Freq: Status: Active Protocol: Document 06/28/18 16:20 RCC (Rec: 07/01/18 13:17 RCC [email or web address]) Manual Assessments Soft Tissue Assessment Soft Tissue Mobility Assessment increased tension: bilateral suboccipitals, scalenes, levator, R UT and SCM. PT-OP-J Posture/Palpation/Skin Start: 02/09/18 15:29 Freq: Status: Active Protocol: Document 02/09/18 15:30 RCC (Rec: 02/09/18 16:37 RCC [email or web address]) Posture Evaluation Position Standing Evaluation View Lateral Head/C-Spine Posture Forward Head T-Spine Posture Increased Kyphosis PT-OP-K Range of Motion Start: 02/09/18 15:29 Freq: Status: Active Protocol: Document 06/28/18 16:20 RCC (Rec: 07/01/18 13:17 RCC [email or web address]) Cervical Spine Range of Motion Cervical Spine Active Degrees Testing Position Sitting Flexion 30 Extension 18 Rotation Left 45 Rotation Right 37 Lateral Flexion Left 14 Lateral Flexion Right 12 ROM Limitations Soft Tissue Tightness Bony Restriction Muscle Tone Pain PT-OP-L Special Tests Start: 02/09/18 15:29 Freq: Status: Active Protocol: Document 08/30/18 15:15 RCC (Rec: 08/30/18 16:55 RCC [email or web address]) Special Tests Shoulder Special Tests Empty Can Test Results negative L Lift-Off Rotator Cuff Test Results negative L Drop Arm Rotator Cuff Test Results negative L Hall Jaylon Impingement Test Results positive L Elevation Impingement Test Results positive L PT-OP-M Strength Start: 02/09/18 15:29 Freq: Status: Active Protocol: Document 06/28/18 16:20 RCC (Rec: 07/01/18 13:17 RCC [email or web address]) Hip Strength Hip Manual Muscle Testing Right Flexion (L2) 3+ Fair+ Adduction 5 Normal Left Flexion (L2) 3+ Fair+ Adduction 5 Normal Knee Strength Knee Manual Muscle Testing Right Flexion (S2) 4 Good Extension (L3) 4- Good- Left Flexion (S2) 4- Good- Extension (L3) 4- Good- Ankle/Foot Strength Ankle and Foot Manual Muscle Testing Right Dorsiflexion (L4) 4 Good Left Dorsiflexion (L4) 4 Good PT-OP-Q Treatments Start: 02/09/18 15:29 Freq: Status: Active Protocol: Document 08/30/18 15:15 RCC (Rec: 08/30/18 16:55 RCC [email or web address]) Manual Therapy Treatment Soft Tissue Mobilization rhomboids Mobilization Type Rolling Intensity/Depth Superficial Body Position Sitting Comments left 3 Body Location levator scapula Mobilization Type Strumming Intensity/Depth Superficial Body Position Sitting Comments left 1 Body Location upper trapezius Mobilization Type Strumming Intensity/Depth Superficial Body Position Sitting Comments left PT-OP-R Modalities Start: 02/09/18 15:29 Freq: Status: Active Protocol: Document 08/30/18 15:15 RCC (Rec: 08/30/18 16:55 RCC [email or web address]) Hot Pack/Cold Pack Treatment Cold Pack Location L shoulder Patient Position Supine Treatment Duration (minutes) 4 Patient Tolerance Poor Comments pt did not like cold, requested hot pack Hot Pack Location cervical spine, L shoulder Patient Position Supine Treatment Duration (minutes) 6 Patient Tolerance Good Comments bolster under LEs PT-OP-T Assessment and Plan Start: 02/09/18 15:29 Freq: Status: Active Protocol: Document 08/30/18 15:15 [facility] (Rec: 08/30/18 16:55 RCC [email or web address]) Physical Therapy Assessment Assessment Summary Assessment Pt with signs of L shoulder impingement. BP was 142/82 prior to treatment, no c/o dizziness today. She was tender in the upper trap, levator, and rhomboids on the L. Pt tolerated manual therapy well today, less pain and normal ROM after manual therapy. Physical Therapy Plan Frequency and Duration Frequency of Treatment 1x/Week Duration of Treatment 12 weeks Plan of Care Start Date 06/28/18 Plan of Care End Date 09/20/18 Next Visit Focus/Plan Next Note Type Treatment Note Next Visit Plan advance standing posture, LE strength and balance, cont. to monitor cervical spine
--- NOTE | 2018-11-02 13:43 | PT.OPDS ---
Current Diagnoses Radiculopathy, cervical region (08/30/18) Provider Visit Care Team Role Provider Type Bill Silva MD Primary Care Provider Physician Specialty: Family Practice Address: [address] [place] [address], [id number] Email: [email or web address] Adria Aburto MD Family Provider Physician Specialty: Family Practice Address: [address] [place] [address], [id number] Email: Shaniqua Armas MD Attending Provider Physician Specialty: Orthopedic Surgery Address: [address] [place] [address], [id number] Email: [email or web address] Visit Number Visit Number 6 Discharge Summary PT-OP-B Current Condition Start: 02/09/18 15:29 Freq: Status: Active Protocol: Document 06/28/18 16:20 RCC (Rec: 07/01/18 13:17 RCC [email or web address]) Current Condition History of Current Condition Onset Date May 2017 Current Complaints Neck pain, HAs, poor balance History of Current Condition Pt is a 73 y/o female presenting to physical therapy with a c/o head and neck pain s/p GLF in May of 2017 and then again in December 2017. Pt has a long h/o chronic neck and back pain, with 2+ neck surgeries (C3-7 fusion) and 10 + lumbar spine surgeries. Pt with increased pain s/p fall outdoors when stepping onto a loose rock, falling forward onto her face. She also fractured a rib and injured her elbow on the L side. Pt notes that pain in head and neck is worse while trying to sleep, which causes her to lose sleep and be in pain in the morning time. She uses both ice and heat. She no longer has a usable neck brace for support with sleep. Pt would like to get back to walking outdoors for exercise. She had a follow up with orthopedic group, who stated that pt is not a good candidate for surgery at this point due to age and multiple surgeries. ADDENDUM: pt presents back to physical therapy on 06/28/18 with same c/o neck pain, another GLF at home hitting her head but no LOC and negative imaging. Neck pain is worse on the R compared to the L, she hit the L side of her head. She notes that she was wearing flip-flops and the toe bent as she did not clear her foot all the way, causing the fall. She is unable to sleep at night due to stiffness and pain in the neck. She is no longer on narcotics due to pain. She would like to work on her balance and decrease neck pain . Referral from Dr. Silva for continued therapy for neck, back pain, weakness. Prior Treatments and Tests prior PT with some success in decreasing pain. PT-OP-C Subjective Start: 02/09/18 15:29 Freq: Status: Active Protocol: Document 08/30/18 15:15 RCC (Rec: 08/30/18 16:55 RCC [email or web address]) OP-PT Subjective Patient Comments Patient Comments Pt states she had a episode at home that she got dizzy and fell, hitting her L shoulder. This occured 3 days ago. PT-OP-D Balance Start: 02/09/18 15:29 Freq: Status: Active Protocol: Document 06/28/18 16:20 RCC (Rec: 07/01/18 13:17 RCC [email or web address]) Balance Tests Single Limb Standing Single Limb- Right 2 sec Single Limb- Left 3 sec Tandem Tandem Standing L posterior 7 sec, R posterior 6 sec PT-OP-E Functional Tests Start: 02/09/18 16:37 Freq: Status: Active Protocol: Document 06/28/18 16:20 RCC (Rec: 07/01/18 13:17 RCC [email or web address]) Functional Tests Timed Up and Go (TUG) Score 15.5 TUG Impairment Rating 40 to <60% Impaired (Score 14- 15) PT-OP-F Manual Assessment Start: 02/09/18 15:29 Freq: Status: Active Protocol: Document 06/28/18 16:20 RCC (Rec: 07/01/18 13:17 RCC [email or web address]) Manual Assessments Soft Tissue Assessment Soft Tissue Mobility Assessment increased tension: bilateral suboccipitals, scalenes, levator, R UT and SCM. PT-OP-J Posture/Palpation/Skin Start: 02/09/18 15:29 Freq: Status: Active Protocol: Document 02/09/18 15:30 RCC (Rec: 02/09/18 16:37 RCC [email or web address]) Posture Evaluation Position Standing Evaluation View Lateral Head/C-Spine Posture Forward Head T-Spine Posture Increased Kyphosis PT-OP-K Range of Motion Start: 02/09/18 15:29 Freq: Status: Active Protocol: Document 06/28/18 16:20 RCC (Rec: 07/01/18 13:17 RCC [email or web address]) Cervical Spine Range of Motion Cervical Spine Active Degrees Testing Position Sitting Flexion 30 Extension 18 Rotation Left 45 Rotation Right 37 Lateral Flexion Left 14 Lateral Flexion Right 12 ROM Limitations Soft Tissue Tightness Bony Restriction Muscle Tone Pain PT-OP-L Special Tests Start: 02/09/18 15:29 Freq: Status: Active Protocol: Document 08/30/18 15:15 RCC (Rec: 08/30/18 16:55 RCC [email or web address]) Special Tests Shoulder Special Tests Empty Can Test Results negative L Lift-Off Rotator Cuff Test Results negative L Drop Arm Rotator Cuff Test Results negative L Hall Jaylon Impingement Test Results positive L Elevation Impingement Test Results positive L PT-OP-M Strength Start: 02/09/18 15:29 Freq: Status: Active Protocol: Document 06/28/18 16:20 RCC (Rec: 07/01/18 13:17 RCC [email or web address]) Hip Strength Hip Manual Muscle Testing Right Flexion (L2) 3+ Fair+ Adduction 5 Normal Left Flexion (L2) 3+ Fair+ Adduction 5 Normal Knee Strength Knee Manual Muscle Testing Right Flexion (S2) 4 Good Extension (L3) 4- Good- Left Flexion (S2) 4- Good- Extension (L3) 4- Good- Ankle/Foot Strength Ankle and Foot Manual Muscle Testing Right Dorsiflexion (L4) 4 Good Left Dorsiflexion (L4) 4 Good PT-OP-T Assessment and Plan Start: 02/09/18 15:29 Freq: Status: Active Protocol: Document 11/02/18 13:32 RCC (Rec: 11/02/18 13:43 RCC [email or web address]) Physical Therapy Assessment Goals Five Impairment Pt unable to participate in walking program at home Short Term Goal (STG) 10 min per day x 5 days per week of flat outdoor gait 06/28/18: no change STG Duration 6 weeks Clamp Operator Goal (LTG) 15 min per day x 5 days per week of flat outdoor gait. LTG Duration 12 weeks Four Impairment cervical spine ROM Short Term Goal (STG) flexion 30 deg extension 25 deg side-bending 20 deg bilaterally rotation 45 deg bilaterally 06/28/18: some progress STG Duration 6 weeks Fdc Goal (LTG) flexion 40 deg extension 30 deg side-bending 25 deg bilaterally rotation 60 deg bilaterally LTG Duration 12 weeks Three Impairment Timed Up and Go (12.41 sec) Clamp Operator Goal (LTG) Less than 11 seconds prior to d/c. 06/28/18: worse score LTG Duration 12 weeks Two Impairment Balance Short Term Goal (STG) Tandem standing: R posterior 10 sec, L posterior 15 sec Single limb stance: L 6 sec, R 6 sec STG Duration 6 weeks Fdc Goal (LTG) Tandem standing: R posterior 15 sec, L posterior 15 sec Single limb stance: L 8 sec, R 8 sec LTG Duration 12 weeks One Impairment pain rated 7/10 cervical spine Short Term Goal (STG) 5/10 STG Duration 6 weeks Fdc Goal (LTG) 3/10 LTG Duration 12 weeks Assessment Summary Assessment Pt overall attended 6 total physical therapy sessions, but failed to complete the most recent plan of care, ending on 09/20/2018. Pt's last attended physical therapy session was 08/30/2019. Pt was able to obtain a neck brace for support at night and does have a HEP established to work on her balance safely at home and stretching lightly of the neck and shoulders to assist with pain management. If symptoms continue or worsen, recommend pt return to her PCP and potentially return to physical therapy if medically necessary and has the ability to attend her full physical therapy scheduled appoinments. Objective goals could not be update due to the pt not returning for follow up or scheduling more appointments. Physical Therapy Plan Discharge Physical Therapy Discharge Reasons No Longer Attending PT
== END 2018-12-06 09:03 ==
LOC: PHYS 14:30
PROVIDERS: Family Provider Family Medicine; PCP Family Medicine; Visit Provider Orthopaedic Surgery Orthopaedic Surgery of the Spine
DX: M54.12 Radiculopathy, cervical region (principal)
CPT/HCPCS: 97010; 97110; 97112; 97140; 97162; 97530

== ENCOUNTER → 2018-09-08 13:27 | Outpatient (CLI) | payer MEDICARE, MEDICAID, SELFPAY ==
--- NOTE | 2018-09-15 13:41 | PM.PFT.1 ---
Pulmonary Function Test Referral & Results Date Patient Seen: 09/08/18 Requesting provider: Bill Silva Indication: Dyspnea Results: The spirometry demonstrates an FVC of 2.32 L which is 81% of predicted. The FEV1 was measured at 1.69 L which is 78% of predicted. The FEV1/FVC ratio was 73 which is 97% of predicted. Following the administration of bronchodilator there was 11% improvement in FEV1 and a 62% improvement in FEF 25-75%. Lung volumes show an SVC of 2.33 L which is 83% of predicted. The diffusing capacity was measured at 17.33 which is 71% of predicted. No hemoglobin value was provided, so no correction for potential anemia could be made, if appropriate. The maximum voluntary ventilation was reduced Interpretation: This study demonstrates mild obstructive lung disease based on reduction FEV1 although there is a mild improvement after bronchodilator based in and 11% improvement in FEV1 and a 60+ percent improvement in FEF 25-75% suggesting more improvement in small airway flow There is minimal reduction in lung volumes suggesting mild restrictive lung disease There is also a minimal reduction in diffusing capacity suggesting some element of disease at the capillary alveolar level. Clinical correlation suggested
== END ==
PROVIDERS: Family Provider Family Medicine; PCP Family Medicine; Visit Provider Family Medicine
DX: R06.02 Shortness of breath (principal)
CPT/HCPCS: 94060; 94726; 94729

== ENCOUNTER → 2018-11-03 20:47 | Outpatient (CLI) | payer MEDICARE, MEDICAID, SELFPAY | PROVIDERS: Family Provider Family Medicine; PCP Family Medicine; Visit Provider Physician Assistant | DX: R82.90 Unspecified abnormal findings in urine (principal) | CPT/HCPCS: 87086 ==

== ENCOUNTER → 2019-02-19 18:03 | Outpatient (CLI) | payer MEDICARE, MEDICAID, SELFPAY | PROVIDERS: Family Provider Family Medicine; PCP Family Medicine; Visit Provider Physician Assistant | DX: R30.0 Dysuria (principal); N89.8 Other specified noninflammatory disorders of vagina | CPT/HCPCS: 87086; 87210 ==

== ENCOUNTER → 2019-03-14 16:12 | Outpatient (CLI) | payer MEDICARE, MEDICAID, SELFPAY ==
[2019-03-14 16:50] LABS: Add Manual Diff / Slide Review NO; Basophils Absolute Auto 100 /uL (0-100); Basophils Percent Auto 0.9 % (0-2); Eosinophils Absolute Auto 300 /uL (0-450); Eosinophils Percent Auto 4.5 % (2-4); Hematocrit 35.6 % (36-46); Hemoglobin 11.7 g/dL (12.0-16.0); Lymphocytes Absolute Auto 2300 /uL (1100-4500); Lymphocytes Percent Auto 31.8 % (25-40); Mean Corpuscular Hemoglobin 28.1 PG (26-34); Monocytes Absolute Auto 600 /uL (0-900); Monocytes Percent Auto 8.6 % (3-14); Neutrophils Absolute Auto 4000 /uL (1500-7000); Neutrophils Percent Auto 54.2 % (50-75); Platelet Count 237 X10^3/uL (150-400); Red Blood Cell Count 4.18 X10^6/uL (4.0-5.2); Red Cell Distribution Width 14.1 % (11.6-14.8); White Blood Cell Count 7.3 X10^3/uL (4.5-11.0)
[2019-03-14 18:08] LABS: Appearance Urine UA CLEAR; Bilirubin Urine UA NEGATIVE (NEGATIVE); Color Urine UA YELLOW; Glucose Urine UA NEGATIVE (Negative); Ketones Urine UA NEGATIVE (NEGATIVE); Leukocyte Esterase Urine UA NEGATIVE (NEGATIVE); Nitrite Urine UA NEGATIVE (Negative); Occult Blood Urine UA 1+ (Negative); Protein Urine UA NEGATIVE (Negative); Urobilinogen Urine UA 0.2 E.U./dL (0.2)
[2019-03-14 19:19] LABS: Alanine Aminotransferase 11 IU/L (9-52); Albumin 4.4 g/dL (3.5-5.0); Albumin Globulin Ratio 1.4 (1.0-2.8); Alkaline Phosphatase 120 U/L (38-126); Aspartate Aminotransferase 21 IU/L (14-36); BUN Creatinine Ratio 19.2 (6-22); Bilirubin Total 0.4 mg/dL (0.2-1.3); Blood Urea Nitrogen 23 mg/dL (7-17); Calcium 9.3 mg/dL (8.4-10.2); Carbon Dioxide 24 mmol/L (22-32); Chloride 107 mmol/L (98-107); Estimated Glomerular Filt Rate 43.9 mL/min (>60); Globulin 3.1 g/dL (1.7-4.1); Glucose 89 mg/dL (80-110); HEMOLYSIS 18 (0-50); Potassium 4.6 mmol/L (3.4-5.1); Sodium 144 mmol/L (137-145); Total Protein 7.5 g/dL (6.3-8.2)
== END ==
PROVIDERS: PCP Family Medicine; Visit Provider Family Medicine
DX: D64.9 Anemia, unspecified (principal); G89.4 Chronic pain syndrome; I10 Essential (primary) hypertension; R60.9 Edema, unspecified; R30.0 Dysuria
CPT/HCPCS: 36415; 80053; 81003; 85025

== ENCOUNTER 2019-03-31 17:52 | Emergency (ER) | payer MEDICARE, MEDICAID, SELFPAY ==
[2019-03-31 18:18] VITALS: BP 160/90; PULSE 60; RESP 13; TEMP 36.2; O2SAT 97
--- NOTE | 2019-03-31 18:34 | ED_ITS ---
HPI - Extremity Problem General Chief complaint: Extremity Problem,Nontraumatic Stated complaint: left foot is swelling, going up her leg Time Seen by Provider: 03/31/19 18:34 Source: patient Mode of arrival: ambulatory Limitations: no limitations History of Present Illness HPI Narrative: 74-year-old female here for evaluation of swelling to the left foot and lower extremity. She stated that this has been going on for the past several days. She was concerned about a clot in this lower extremity. She states he gets better at night when she lays down or when she elevates her feet. She is currently on anticoagulation for atrial fibrillation. No specific trauma. Related Data Home Medications Medication Instructions Recorded Confirmed buprenorphine 8 mg-naloxone 2 mg 1 film SL DAILY 03/21/18 03/26/19 sublingual film trazodone 100 mg tablet 100 mg PO BEDTIME 7 Days #7 tab 08/07/18 03/26/19 Previous Rx's Medication Instructions Recorded losartan [Cozaar] 50 mg PO QDAY #90 tab 12/22/17 furosemide 40 mg tablet 40 mg PO Q DAY #90 tab 04/03/18 nitroglycerin 0.4 mg sublingual 0.4 mg SL Q5-15M PRN #25 tab 04/18/18 tablet ferrous gluconate 324 mg (36 mg 324 mg PO BID #60 tab 06/12/18 iron) tablet albuterol sulfate HFA 90 2 puff INHALATION Q6H PRN #8.5 gram 09/21/18 mcg/actuation aerosol inhaler dabigatran etexilate 150 mg capsule 150 mg PO BID #60 cap 02/13/19 cyclobenzaprine 5 mg tablet 5 mg PO BEDTIME PRN #20 tab 03/21/19 omeprazole 20 mg capsule,delayed 20 mg PO QDAY #90 cap 03/23/19 release bupropion HCl XL 300 mg 24 hr 300 mg PO QAM #30 tab 03/26/19 tablet, extended release duloxetine 60 mg capsule,delayed 120 mg PO DAILY #60 cap 03/26/19 release metoprolol succinate [Toprol XL] 25 mg PO BID #180 tab 03/30/19 Allergies Allergy/AdvReac Type Severity Reaction Status Date / Time ciprofloxacin AdvReac Intermediate FLUSHING, Verified 03/26/19 14:44 SWEATS, SOB citalopram [CITALOPRAM] AdvReac Intermediate Hallucinati Verified 03/26/19 14:44 ons cyclobenzaprine AdvReac Intermediate FLUSHING, Verified 03/26/19 14:44 SWEATS, SOB pregabalin AdvReac Intermediate FLUSHING/SW Verified 03/26/19 14:44 EATS/SOB Review of Systems Constitutional Denies headache(s) ENT Ears, Nose, Mouth, and Throat: Denies dizziness and Denies headache(s) Cardiovascular Denies chest pain and Denies dyspnea Respiratory Denies dyspnea Gastrointestinal Gastrointestinal: Denies abdominal pain Musculoskeletal Comments: Left ankle pain and swelling Integumentary/Breasts Denies lesions and Denies rash Neurologic Denies dizziness and Denies headache(s) Hematologic/Lymphatic Denies easy bleeding and Denies easy bruising [facility] Medical History Abnormal Pap smear of cervix (Chronic ~1956) Anemia (Chronic) Ankle pain (Chronic) Anxiety (Chronic) Arachnoiditis (Chronic) Atrial fibrillation (Chronic) Cataracts, bilateral (Chronic) Cervical spine disease (Chronic) Chronic back pain (Chronic) Cystic fibrosis (Chronic ~1956) Cystic fibrosis (Chronic ~1956) Degenerative joint disease (DJD) of lumbar spine (Chronic) Depression (Chronic) Fibromyalgia (Chronic) Fibromyalgia (Chronic) Foot pain (Chronic) GERD (gastroesophageal reflux disease) (Chronic) GI bleeding (Chronic) Heavy menstrual period (Chronic) Hypertension (Chronic) Kidney stones (Chronic) Osteoporosis (Chronic) Pneumonia (Chronic) Post traumatic stress disorder (PTSD) (Chronic) Restless leg syndrome (Chronic) Rheumatoid arthritis (Chronic) Scoliosis (Chronic) Skin cancer (Chronic ~1996) Stroke (Chronic) Vertigo (Chronic ~1968) Surgical History History of back surgery (Chronic) History of neck surgery (Chronic) History of hip replacement History of knee replacement (11/29/16) S/P total abdominal hysterectomy and bilateral salpingo-oophorectomy Status post appendectomy Status post bunionectomy (08/11/15) Status post cholecystectomy Status post tonsillectomy and adenoidectomy Status post tubal ligation Social History marital status: Smoking Status: Former smoker alcohol intake: never substance use type: does not use Social History marital status: Smoking Status: Former smoker alcohol intake: never substance use type: does not use Exam Initial Vital Signs Initial Vital Signs: Vital Signs Temperature 97.2 F L 03/31/19 18:18 Pulse Rate 60 03/31/19 18:18 Respiratory Rate 13 03/31/19 18:18 Blood Pressure 160/90 H 03/31/19 18:18 Pulse Oximetry 97 03/31/19 18:18 Const General: cooperative, comfortable, well developed, well groomed and No acute distress Orientation: alert, awake and oriented x3 Cardio Pulses: dorsalis pedis present on the left Skin Lesions: no lesions Rashes: no rashes Neuro Sensory Exam: no sensory deficits noted Extrem Other: Patient with minimal swelling to the left foot and left lower extremity. Psych Appearance: grossly normal and well kempt Course Orders Ordered: ED Orders 03/31/19 18:46 US perip venous low extrem lt Stat Vital Signs - 8 hr 03/31/19 18:18 03/31/19 20:27 Temperature 97.2 F L Pulse Rate 60 63 Respiratory Rate 13 Blood Pressure 160/90 H 122/63 Pulse Oximetry 97 95 MDM - Extremity (Nontraumatic) Imaging Data Venous US: Radiologist's impression: [place] [address] Ultrasound Report Signed Patient: Janet Paris FMR#: [id number] : 5Acct:[id number] Age/Sex: 74 / FDate of Service: 03/31/19 Loc: ED Accession Number: [id number] Procedure: US [facility] venous low extrem lt Ordering Provider: Tod Castellanos D.O. PROCEDURE: US PERIP VENOUS LOW EXTREM LT INDICATIONS: LLE SWELLING, EVAL FOR DVT TECHNIQUE: Real-time imaging, as well as color and pulse Doppler interrogation, were performed of the lower extremity deep veins from the inguinal ligament to the popliteal fossa. COMPARISON: None. FINDINGS: The common femoral, femoral and popliteal veins are normally compressible, and free of intraluminal thrombus. Color and pulse Doppler demonstrate normal phasic intraluminal flow. There is normal augmentation response to distal compression maneuver. There is a circumferentially thickened superficial vein in the popliteal fossa which is favored to represent a varicose vein rather than a prior nonocclusive thrombus. IMPRESSION: No left lower extremity DVT. Dictated by: Mario Alberto Torres M.D. on 03/31/2019 at 20:06 Approved by: Mario Alberto Torres M.D. on 03/31/2019 at 20:09 [facility] Narrative Medical decision making narrative: No DVT on the ultrasound. No signs of cellulitis. No trauma. Will hold on x-rays. She is currently on Lasix. Will have her increase her Lasix for the next day or so. Will have her contact her primary doctor the beginning of next week. She was given return precautions and follow-up instructions. She expressed understanding and agreement plan. Discharge Plan Departure Patient Disposition: Home Clinical Impression: Peripheral edema Discharge Date/Time: 03/31/19 20:27 Interventions: ED Discharge Assessment Last Done: 03/31/19 20:27 Instructions: DI for Peripheral Edema, Unilateral Activity Restrictions/Additional Instructions: Increase your Lasix to 60 mg once a day like we discussed. On Tuesday contact your primary provider for a follow-up. Return to the emergency department for any new or worsening symptoms Prescriptions: No Action Pradaxa 150 mg capsule 150 mg PO BID Qty: 60 RF: 3 buprenorphine-naloxone 8-2 mg film 1 film SL DAILY RF: 0 trazodone 100 mg tablet 100 mg PO BEDTIME 7 Days Qty: 7 RF: 0 bupropion HCl 300 mg tablet extended release 24 hr 300 mg PO QAM Qty: 30 RF: 2 duloxetine 60 mg capsule,delayed release(DR/EC) 120 mg PO DAILY Qty: 60 RF: 5 losartan [Cozaar] 50 MG tablet 50 mg PO QDAY Qty: 90 RF: 3 nitroglycerin [Nitrostat] 0.4 mg tablet, sublingual 0.4 mg SL Q5-15M PRN (Reason: chest pain) Qty: 25 RF: 1 ferrous gluconate 324 mg (36 mg iron) tablet 324 mg PO BID Qty: 60 RF: 5 cyclobenzaprine 5 mg tablet 5 mg PO BEDTIME PRN (Reason: muscle spasm) Qty: 20 RF: 0 omeprazole 20 mg capsule,delayed release(DR/EC) 20 mg PO QDAY Qty: 90 RF: 1 metoprolol succinate [Toprol XL] 25 mg tablet extended release 24 hr 25 mg PO BID Qty: 180 RF: 3 furosemide 40 mg tablet 40 mg PO Q DAY Qty: 90 RF: 3 albuterol sulfate 90 mcg/actuation HFA aerosol inhaler 2 puff INHALATION Q6H PRN (Reason: shortness of breath) Qty: 8.5 RF: 1 Referrals: Bill Silva MD [Primary Care Provider] -
--- NOTE | 2019-03-31 18:46 | DI.US.S_ITS ---
PROCEDURE: US PERIPH VENOUS LOW EXTREM LT INDICATIONS: LLE SWELLING, EVAL FOR DVT TECHNIQUE: Real-time imaging, as well as color and pulse Doppler interrogation, were performed of the lower extremity deep veins from the inguinal ligament to the popliteal fossa. COMPARISON: None. FINDINGS: The common femoral, femoral and popliteal veins are normally compressible, and free of intraluminal thrombus. Color and pulse Doppler demonstrate normal phasic intraluminal flow. There is normal augmentation response to distal compression maneuver. There is a circumferentially thickened superficial vein in the popliteal fossa which is favored to represent a varicose vein rather than a prior nonocclusive thrombus. IMPRESSION: No left lower extremity DVT. Dictated by: Mario Alberto Torres M.D. on 03/31/2019 at 20:06 Approved by: Mario Alberto Torres M.D. on 03/31/2019 at 20:09
[2019-03-31 20:27] VITALS: BP 122/63; PULSE 63; O2SAT 95
== END 2019-03-31 20:27 | disposition home or self-care (01) ==
PROVIDERS: Emergency Provider Emergency Medicine; PCP Family Medicine
DX: R60.9 Edema, unspecified (principal)
CPT/HCPCS: 93971; 99282; 99283

== ENCOUNTER → 2019-05-17 17:30 | Outpatient (CLI) | payer MEDICARE, MEDICAID, SELFPAY ==
[2019-05-17 17:50] LABS: Appearance Urine UA CLEAR; Bilirubin Urine UA NEGATIVE (NEGATIVE); Color Urine UA YELLOW; Glucose Urine UA NEGATIVE (Negative); Ketones Urine UA NEGATIVE (NEGATIVE); Leukocyte Esterase Urine UA NEGATIVE (NEGATIVE); Nitrite Urine UA NEGATIVE (Negative); Occult Blood Urine UA 2+ (Negative); Protein Urine UA NEGATIVE (Negative); Urobilinogen Urine UA 0.2 E.U./dL (0.2)
== END ==
PROVIDERS: PCP Family Medicine; Visit Provider Family Medicine
DX: R30.0 Dysuria (principal)
CPT/HCPCS: 81003

== ENCOUNTER 2019-05-28 12:30 | Outpatient (RCR) | payer MEDICARE, MEDICAID, SELFPAY ==
--- NOTE | 2019-04-05 17:00 | PT.OIE ---
Current Diagnoses Low back pain (04/05/19) Past Medical History (Last Reviewed 04/01/19 @ 00:44 by Tod Castellanos DO) Abnormal Pap smear of cervix (Chronic ~1956) Anemia (Chronic) Ankle pain (Chronic) Anxiety (Chronic) Arachnoiditis (Chronic) Atrial fibrillation (Chronic) Cataracts, bilateral (Chronic) Cervical spine disease (Chronic) Chronic back pain (Chronic) Cystic fibrosis (Chronic ~1956) Cystic fibrosis (Chronic ~1956) Degenerative joint disease (DJD) of lumbar spine (Chronic) Depression (Chronic) Fibromyalgia (Chronic) Fibromyalgia (Chronic) Foot pain (Chronic) GERD (gastroesophageal reflux disease) (Chronic) GI bleeding (Chronic) Heavy menstrual period (Chronic) Hypertension (Chronic) Kidney stones (Chronic) Osteoporosis (Chronic) Pneumonia (Chronic) Post traumatic stress disorder (PTSD) (Chronic) Restless leg syndrome (Chronic) Rheumatoid arthritis (Chronic) Scoliosis (Chronic) Skin cancer (Chronic ~1996) Stroke (Chronic) Vertigo (Chronic ~1968) Past Surgical History (Last Reviewed 04/01/19 @ 00:44 by Tod Castellanos DO) History of back surgery (Chronic) History of neck surgery (Chronic) History of hip replacement History of knee replacement (11/29/16) S/P total abdominal hysterectomy and bilateral salpingo-oophorectomy Status post appendectomy Status post bunionectomy (08/11/15) Status post cholecystectomy Status post tonsillectomy and adenoidectomy Status post tubal ligation Provider Visit Care Team Role Provider Type Bill Silva MD Attending Provider Physician Primary Care Provider Specialty: [facility] Address: [address] [place] [address] Email: [email or web address] Physical Therapy Initial Evaluation PT-OP-A Visit Information Start: 04/02/19 17:40 Freq: Status: Active Protocol: Document 04/05/19 11:20 LRN (Rec: 04/05/19 12:49 LRN [id number]) Out-Patient Physical Therapy Visit Information Visit Information Visit Type Initial Evaluation Visit Start Time 11:20 Visit Stop Time 12:21 Total Visit Minutes 61 Visit Number 1 Number of VETERINARY VIROLOGIST Visits 0 Evaluation Information Evaluation Date 04/05/19 Precautions Precautions CHF with A.Fib, Hx of mini TIAs, Daily dizziness, hx of vertigo and falls with last fall 2 months ago, Arachnoiditis diagnosed 5 yrs ago, skin cancer, depression. Per history review: back surgery x 10, neck surgery x 2 , L VERONICA, R TKA, Bunionectomy and 5th toe surgery. PTSD, spondylosis of lumbar spine, OA of C/S, fibromyalgia, chronic pain. PT-OP-B Current Condition Start: 04/02/19 17:40 Freq: Status: Active Protocol: Document 04/05/19 11:20 LRN (Rec: 04/05/19 12:49 LRN [id number]) Current Condition History of Current Condition Onset Date 1 yrs ago with CHF onset and AFib. Current Complaints Weakness in legs and lower back and back pain. History of Current Condition Back pain after knee replacement, could walk but not far. Feels like L shoulder and legs are giving out when walking and it is hard to breath. Sitting or standing for any length of time her back starts hurting. Thinks she can walk 10' before the back starts to hurt . Feet and ankles swell when up and toes turn purple. 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 Future Testing and Treatments Planned None Developmental History Developmental History Pt reports: Has had back surgery at 19 yrs old and has had 14 more. 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 Was working out at the gym 1 yr ago at [place] and became immobile before the dx of CHF. Was doing ex the rowing machine and bikes and leg press with a agency trainer. Fell a year ago onto her back and messed up the neck. Neck joints dissolved. Treatment Goals Patient/Caregiver Goals Pt goal is to strengthen legs, so she can walk far, to end of block and back. Ease the back pain 50%. Prior Functional Status Baseline Function- ADL's Needs Assist Baseline Function- Mobility Needs Assist Baseline Function- Gait Independent in home, SBA in community Baseline Function- Other Assist to dress and SBA for showering. Used pain pills. Current Functional Impairments (Reported) Functional Limitations- ADL's Mild assist with dressing. Functional Limitations- Mobility/Gait Independent with a lot of falls Personal Factors Other Personal Factors That May Effect See precautions list above. Therapy/Recovery PT-OP-C Subjective Start: 04/02/19 17:40 Freq: Status: Active Protocol: Document 04/05/19 11:20 LRN (Rec: 04/05/19 12:49 LRN [id number]) Patient Questionnaires Oswestry Low Back Index Oswestry Score 48/50 Oswestry Impairment 80 to 99% Impaired (Score 80- 99) OP-PT Pain Assessment Pain Assessment Grid Paper Pain Assessment Grid Completed Yes Location Legs Pain Location Details Posterior LE's Intensity 6 Description Aching Tingling Frequency Constant Pain Aggravating Factors ADL's Pain Alleviating Factors Lying Supine Aqua Therapy Bilateral Back Pain Location Details Low back, down legs Intensity 9 Scale Used Numeric (1 - 10) Description Burning Chronic Cramping Radiating Sharp Tingling Frequency Constant Pain Aggravating Factors Changing Position ADL's Activity Sitting Pain Alleviating Factors Cold Lying Supine Rest Bilateral Neck Pain Location Details Bilateral neck Intensity 6 PT-OP-E Functional Tests Start: 04/02/19 17:40 Freq: Status: Active Protocol: Document 04/05/19 11:20 LRN (Rec: 04/05/19 13:21 LRN [id number]) Functional Tests Timed Up and Go (TUG) Score 18 Comments Pt used hands to assist sit<> stand. Touched wall once TUG Impairment Rating 80 to <100% Impaired (Score 18 -19) Other Gait Speed Name of Test Gait speed Score 2.22 ft/sec Comment Gait without assist device. PT-OP-G Mobility & Gait Start: 04/02/19 17:40 Freq: Status: Active Protocol: Document 04/05/19 11:20 LRN (Rec: 04/05/19 13:21 LRN [id number]) OP Gait Assessment Gait Gait Assistance Required: Standby Assistance Able to Maintain Weight Bearing Status Yes During Gait Assistive Devices Assistive Device None Front Wheeled Walker Orthotic/Prosthetic Devices or Brace: No Gait Deviations General Gait Pattern Flexed Trunk Lateral Trunk Lean Factors Limiting Gait Function Factors Limiting Gait Function Decreased Activity Tolerance Pain Comments Gait Comments Pt is able to ambulate without an assistive device, but limited in distance due to complaints of low back and leg pain. PT-OP-J Posture/Palpation/Skin Start: 04/02/19 17:40 Freq: Status: Active Protocol: Document 04/05/19 11:20 LRN (Rec: 08/01/19 13:17 LRN [id number]) Posture Evaluation Position Standing Head/C-Spine Posture Forward Head T-Spine Posture Flexible Scoliosis on (R) Pelvis Posture (L) Rotated Posterior (R) Rotated Posterior Hip Posture (L) Flexed (R) Flexed Comments Posture Comments Standing: hips flexed 20 deg' s & trunk R sidebent 10 deg's. Muscle tightness in paraspinals. Palpation Assessment Location Hips Palpation Location Bilateral Upper Gluteals Palpation Findings Soft Tissue Tightness Muscle Guarding Tenderness QL Palpation Location Bilateral Quadratus Lumborum Palpation Findings Soft Tissue Tightness Muscle Guarding Tenderness Lumbar paraspinals Palpation Location Bilateral Lumbar paraspinals Palpation Findings Soft Tissue Tightness Muscle Guarding Tenderness Palpation Details Pt posture in L sidebend PT-OP-K Range of Motion Start: 04/02/19 17:40 Freq: Status: Active Protocol: Document 04/05/19 11:20 LRN (Rec: 04/05/19 13:17 LRN [id number]) Lumbar Spine Range of Motion Lumbar Spine Active Degrees Testing Position Standing Lateral Flexion Left 0 Lateral Flexion Right 8 ROM Limitations Soft Tissue Tightness Pain Comments L Sidebend is starting at 8 deg's R SB. Extension - Lacks 20 deg's to neutral Hip Goniometric Range of Motion Hip Right Passive Flexion w/Knee Flexed 60 Abduction 7 Left Passive Flexion w/Knee Flexed 75 Abduction 15 PT-OP-M Strength Start: 04/02/19 17:40 Freq: Status: Active Protocol: Document 04/05/19 11:20 LRN (Rec: 04/05/19 13:17 LRN [id number]) Trunk Strength Trunk Manual Muscle Testing Testing Position Supine Rotation Left 3 Fair Rotation Right 4 Good Core Stabilization Pt is able to stabilize the core during LE MMT except with testing of RLE; therefore strength is at least 4/5 except with L rotation. Reason Not Measured Pain Hip Strength Hip Manual Muscle Testing Right Flexion (L2) 5 Normal Extension (S1) 1 Trace Abduction 3 Fair Adduction 2 Poor Comments Hip ext measured based on Bridging. Pt unable to lift hips from plinth. Left Flexion (L2) 5 Normal Extension (S1) 1 Trace Abduction 3 Fair Adduction 2 Poor Comments Hip ext measured based on Bridging. Pt unable to lift hips from plinth. Knee Strength Knee Manual Muscle Testing Right Reason Not Measured WFL Left Reason Not Measured WFL Ankle/Foot Strength Ankle and Foot Manual Muscle Testing Right Comments Generally 5/5 Left Comments Generally 5/5 except EV 2/5 PT-OP-Q Treatments Start: 04/02/19 17:40 Freq: Status: Active Protocol: Document 04/05/19 11:20 LRN (Rec: 04/09/19 17:51 LRN [id number]) Gait Training Gait Activity Gait without assist device Description Walking for gait speed and walking/turning for TUG. Level of Assistance CGA Surface Level Distance/Duration 10' x 4, 20' Treatment Focus Speed of gait and stability. Comments Extra time taken for practice. PT-OP-T Assessment and Plan Start: 04/02/19 17:40 Freq: Status: Active Protocol: Document 04/05/19 11:20 LRN (Rec: 04/05/19 12:49 LRN [id number]) Physical Therapy Assessment Rehab Potential Rehabilitation Potential Fair Evaluation Complexity Number of Personal Factors/Comorbidities 3 or More Number of Body Systems Impaired 4 or More Clinical Presentation at Evaluation Evolving Impairments Impairments Activity Tolerance Balance Functional Mobility Gait Pain Posture ROM Soft Tissue Mobility Strength Other Impairments 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 Depression & PTSD Cardiac: CHF with A. Fib. Other Concerns Fall Risk Yes per TUG score and history of falls, vertigo. Age Related Concerns Effect on social interactions Barriers to Rehabilitation Extensive multiple Co- morbidities. Goals Five Impairment Pt unable to participate in walking program at home Inside [employer] Goal (LTG) Pt will be able to walk to end of black and back with use of assistive device. Four Impairment Pain in legs rated 6/10. Short Term Goal (STG) Decrease pain to no greater than 4-5/10 STG Duration 05/17/19 Nursing Home Goal (LTG) Decrease pain to no greater than 3/10 LTG Duration 06/28/19 Three Impairment Timed Up and Go (18 secs) [employer]iter Goal (LTG) Less than 15 seconds prior to d/c. LTG Duration 06/28/19 Two Impairment LE weakness Short Term Goal (STG) Pt will be able to tolerate a HEP of LE strengthening ex's. STG Duration 05/03/19 [employer] Rec[employer]iter Goal (LTG) Pt will demonstrate improved LE strength by no less than 1/ 2 grade in areas of weakness. LTG Duration 06/28/19 One Impairment pain rated 9/10 lumbar spine Short Term Goal (STG) 7/10 STG Duration 05/17/19 Inside [employer] Rec[employer]iter Goal (LTG) 5/10 LTG Duration 06/28/19 Assessment Summary Assessment Pt presents to therapy with limited activity tolerance due to low back and posterior LE pain. The pt has a long history back dysfunction and demonstrates severe postural deviations of a trunk forward bend and L sidebend, probably a primary reason for her back and leg pain. She has limited trunk mobility and mildly limited hip mobilty. Hip strength and L ankle EV appears to be her primary area of weakness in her LE's. I expect if her posture improves her back pain will be reduced and if she can improve her endurance and tolerance to exercise she will be able to begin a home walking program starting with her walker and possibly progressing to ambulation without assistive device. The pt is only interested in an aquatic therapy program. We discussed requirements of independence to get to [facility] and pt is agreeable. I believe this will be a good place to start her trunk & hip mobilty and gait training rehabilitation program; therefore the pt is being transferred to [facility] for her rehabilitation under an aquatic therapy program. Physical Therapy Plan Frequency and Duration Frequency of Treatment 2x/Week Plan of Care Start Date 04/05/19 Plan of Care End Date 06/28/19 Therapeutic Interventions Therapeutic Interventions Home Exercise Program Next Visit Focus/Plan Next Note Type Treatment Note Next Visit Plan Aquatic therapy to decrease pain with improved posture, trunk mobility, core strength, hip strength, endurance, and ambulatory tolerance/ability. Please Note Medical history.
--- NOTE | 2019-04-09 17:53 | PT.OPPOC ---
Current Diagnoses Low back pain (04/05/19) Provider Visit Care Team Role Provider Type Bill Silva MD Attending Provider Physician Primary Care Provider Specialty: [facility] Address: [address] [place] [address], [id number] Email: [email or web address] Plan Of Care PT-OP-T Assessment and Plan Start: 04/02/19 17:40 Freq: Status: Active Protocol: Document 04/05/19 11:20 LRN (Rec: 04/05/19 12:49 LRN [id number]) Physical Therapy Assessment Rehab Potential Rehabilitation Potential Fair Evaluation Complexity Number of Personal Factors/Comorbidities 3 or More Number of Body Systems Impaired 4 or More Clinical Presentation at Evaluation Evolving Impairments Impairments Activity Tolerance Balance Functional Mobility Gait Pain Posture ROM Soft Tissue Mobility Strength Other Impairments 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 Depression & PTSD Cardiac: CHF with A. Fib. Other Concerns Fall Risk Yes per TUG score and history of falls, vertigo. Age Related Concerns Effect on social interactions Barriers to Rehabilitation Extensive multiple Co- morbidities. Goals Five Impairment Pt unable to participate in walking program at home Car Sales Consultant Goal (LTG) Pt will be able to walk to end of black and back with use of assistive device. Four Impairment Pain in legs rated 6/10. Short Term Goal (STG) Decrease pain to no greater than 4-5/10 STG Duration 05/17/19 Fpc Goal (LTG) Decrease pain to no greater than 3/10 LTG Duration 06/28/19 Three Impairment Timed Up and Go (18 secs) Fpc Goal (LTG) Less than 15 seconds prior to d/c. LTG Duration 06/28/19 Two Impairment LE weakness Short Term Goal (STG) Pt will be able to tolerate a HEP of LE strengthening ex's. STG Duration 05/03/19 Car Sales Consultant Goal (LTG) Pt will demonstrate improved LE strength by no less than 1/ 2 grade in areas of weakness. LTG Duration 06/28/19 One Impairment pain rated 9/10 lumbar spine Short Term Goal (STG) 7/10 STG Duration 05/17/19 Car Sales Consultant Goal (LTG) 5/10 LTG Duration 06/28/19 Assessment Summary Assessment Pt presents to therapy with limited activity tolerance due to low back and posterior LE pain. The pt has a long history back dysfunction and demonstrates severe postural deviations of a trunk forward bend and L sidebend, probably a primary reason for her back and leg pain. She has limited trunk mobility and mildly limited hip mobilty. Hip strength and L ankle EV appears to be her primary area of weakness in her LE's. I expect if her posture improves her back pain will be reduced and if she can improve her endurance and tolerance to exercise she will be able to begin a home walking program starting with her walker and possibly progressing to ambulation without assistive device. The pt is only interested in an aquatic therapy program. We discussed requirements of independence to get to [facility] and pt is agreeable. I believe this will be a good place to start her trunk & hip mobilty and gait training rehabilitation program; therefore the pt is being transferred to [facility] for her rehabilitation under an aquatic therapy program. Physical Therapy Plan Frequency and Duration Frequency of Treatment 2x/Week Plan of Care Start Date 04/05/19 Plan of Care End Date 06/28/19 Therapeutic Interventions Therapeutic Interventions Home Exercise Program Next Visit Focus/Plan Next Note Type Treatment Note Next Visit Plan Aquatic therapy to decrease pain with improved posture, trunk mobility, core strength, hip strength, endurance, and ambulatory tolerance/ability. Please Note Medical history. Plan of Care Dates Plan of Care Start Date 04/05/19 Plan of Care End Date 06/28/19 Please Sign and Return: I have reviewed this Plan of Care and certify that the skilled therapy services above are required to meet the patient?s needs. Physician Signature Date Printed Name and Credentials Clinical Instructor Signature Printed Name and Credentials
--- NOTE | 2019-04-13 15:10 | PT.OTN ---
Current Diagnoses Low back pain (04/05/19) Physical Therapy Treatment Note PT-OP-A Visit Information Start: 04/02/19 17:40 Freq: Status: Active Protocol: Document 04/13/19 12:15 [email or web address] (Rec: 04/13/19 15:10 LJ [id number]) Out-Patient Physical Therapy Visit Information Visit Information Visit Type Aquatic Treatment Note Visit Start Time 12:15 Visit Stop Time 13:00 Total Visit Minutes 45 Visit Number 2 Number of CLINICAL DATA RESEARCH Visits 1 Precautions Precautions CHF with A.Fib, Hx of mini TIAs, Daily dizziness, hx of vertigo and falls with last fall 2 months ago, Arachnoiditis diagnosed 5 yrs ago, skin cancer, depression. Per history review: back surgery x 10, neck surgery x 2 , L VERONICA, R TKA, Bunionectomy and 5th toe surgery. PTSD, spondylosis of lumbar spine, OA of C/S, fibromyalgia, chronic pain. PT-OP-B Current Condition Start: 04/02/19 17:40 Freq: Status: Active Protocol: Document 04/05/19 11:20 LRN (Rec: 04/05/19 12:49 LRN [id number]) Current Condition History of Current Condition Onset Date 1 yrs ago with CHF onset and AFib. Current Complaints Weakness in legs and lower back and back pain. History of Current Condition Back pain after knee replacement, could walk but not far. Feels like L shoulder and legs are giving out when walking and it is hard to breath. Sitting or standing for any length of time her back starts hurting. Thinks she can walk 10' before the back starts to hurt . Feet and ankles swell when up and toes turn purple. 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 Future Testing and Treatments Planned None Developmental History Developmental History Pt reports: Has had back surgery at 19 yrs old and has had 14 more. 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 Was working out at the gym 1 yr ago at [employer] and became immobile before the dx of CHF. Was doing ex the rowing machine and bikes and leg press with a personal lines sales executive. Fell a year ago onto her back and messed up the neck. Neck joints dissolved. Treatment Goals Patient/Caregiver Goals Pt goal is to strengthen legs, so she can walk far, to end of block and back. Ease the back pain 50%. Prior Functional Status Baseline Function- ADL's Needs Assist Baseline Function- Mobility Needs Assist Baseline Function- Gait Independent in home, SBA in community Baseline Function- Other Assist to dress and SBA for showering. Used pain pills. Current Functional Impairments (Reported) Functional Limitations- ADL's Mild assist with dressing. Functional Limitations- Mobility/Gait Independent with a lot of falls Personal Factors Other Personal Factors That May Effect See precautions list above. Therapy/Recovery PT-OP-C Subjective Start: 04/02/19 17:40 Freq: Status: Active Protocol: Document 04/13/19 12:15 LJ (Rec: 04/13/19 15:10 LJ [email or web address]) OP-PT Subjective Patient Comments Patient Comments Pt glad to be in pool therapy PT-OP-E Functional Tests Start: 04/02/19 17:40 Freq: Status: Active Protocol: Document 04/05/19 11:20 LRN (Rec: 04/05/19 13:21 LRN [id number]) Functional Tests Timed Up and Go (TUG) Score 18 Comments Pt used hands to assist sit<> stand. Touched wall once TUG Impairment Rating 80 to <100% Impaired (Score 18 -19) Other Gait Speed Name of Test Gait speed Score 2.22 ft/sec Comment Gait without assist device. PT-OP-G Mobility & Gait Start: 04/02/19 17:40 Freq: Status: Active Protocol: Document 04/05/19 11:20 LRN (Rec: 04/05/19 13:21 LRN [id number]) OP Gait Assessment Gait Gait Assistance Required: Standby Assistance Able to Maintain Weight Bearing Status Yes During Gait Assistive Devices Assistive Device None Front Wheeled Walker Orthotic/Prosthetic Devices or Brace: No Gait Deviations General Gait Pattern Flexed Trunk Lateral Trunk Lean Factors Limiting Gait Function Factors Limiting Gait Function Decreased Activity Tolerance Pain Comments Gait Comments Pt is able to ambulate without an assistive device, but limited in distance due to complaints of low back and leg pain. PT-OP-J Posture/Palpation/Skin Start: 04/02/19 17:40 Freq: Status: Active Protocol: Document 04/05/19 11:20 LRN (Rec: 04/05/19 13:17 LRN [id number]) Posture Evaluation Position Standing Head/C-Spine Posture Forward Head T-Spine Posture Flexible Scoliosis on (R) Pelvis Posture (L) Rotated Posterior (R) Rotated Posterior Hip Posture (L) Flexed (R) Flexed Comments Posture Comments Standing: hips flexed 20 deg' s & trunk R sidebent 10 deg's. Muscle tightness in paraspinals. Palpation Assessment Location Hips Palpation Location Bilateral Upper Gluteals Palpation Findings Soft Tissue Tightness Muscle Guarding Tenderness QL Palpation Location Bilateral Quadratus Lumborum Palpation Findings Soft Tissue Tightness Muscle Guarding Tenderness Lumbar paraspinals Palpation Location Bilateral Lumbar paraspinals Palpation Findings Soft Tissue Tightness Muscle Guarding Tenderness Palpation Details Pt posture in L sidebend PT-OP-K Range of Motion Start: 04/02/19 17:40 Freq: Status: Active Protocol: Document 04/05/19 11:20 LRN (Rec: 04/05/19 13:17 LRN [id number]) Lumbar Spine Range of Motion Lumbar Spine Active Degrees Testing Position Standing Lateral Flexion Left 0 Lateral Flexion Right 8 ROM Limitations Soft Tissue Tightness Pain Comments L Sidebend is starting at 8 deg's R SB. Extension - Lacks 20 deg's to neutral Hip Goniometric Range of Motion Hip Right Passive Flexion w/Knee Flexed 60 Abduction 7 Left Passive Flexion w/Knee Flexed 75 Abduction 15 PT-OP-M Strength Start: 04/02/19 17:40 Freq: Status: Active Protocol: Document 04/05/19 11:20 LRN (Rec: 04/05/19 13:17 LRN [id number]) Trunk Strength Trunk Manual Muscle Testing Testing Position Supine Rotation Left 3 Fair Rotation Right 4 Good Core Stabilization Pt is able to stabilize the core during LE MMT except with testing of RLE; therefore strength is at least 4/5 except with L rotation. Reason Not Measured Pain Hip Strength Hip Manual Muscle Testing Right Flexion (L2) 5 Normal Extension (S1) 1 Trace Abduction 3 Fair Adduction 2 Poor Comments Hip ext measured based on Bridging. Pt unable to lift hips from plinth. Left Flexion (L2) 5 Normal Extension (S1) 1 Trace Abduction 3 Fair Adduction 2 Poor Comments Hip ext measured based on Bridging. Pt unable to lift hips from plinth. Knee Strength Knee Manual Muscle Testing Right Reason Not Measured WFL Left Reason Not Measured WFL Ankle/Foot Strength Ankle and Foot Manual Muscle Testing Right Comments Generally 5/5 Left Comments Generally 5/5 except EV 2/5 PT-OP-Q Treatments Start: 04/02/19 17:40 Freq: Status: Active Protocol: Document 04/05/19 11:20 LRN (Rec: 04/09/19 17:51 LRN [id number]) Gait Training Gait Activity Gait without assist device Description Walking for gait speed and walking/turning for TUG. Level of Assistance CGA Surface Level Distance/Duration 10' x 4, 20' Treatment Focus Speed of gait and stability. Comments Extra time taken for practice. PT-OP-S Aquatic Treatment Start: 04/13/19 14:50 Freq: Status: Active Protocol: Document 04/13/19 12:15 LJ (Rec: 04/13/19 15:10 LJ [email or web address]) Aquatics Treatment Pool Entry/Exit Pool Entry/Exit Method Stairs Assistance Independent Comments pt assisted at top of stairs by caregiver Water Walking Sideways Water Level Chest Level Walking Equipment belt and noodle Level of Assistance Moderate Assistance Verbal Cues Forwards Water Level Chest Level Walking Equipment floatation belt Level of Assistance Moderate Assistance Verbal Cues Comments L side lean Balance standing with minimal perturbations Water Level Chest Level Comments pt leaning to right using LLE for balance not wt bearing [place] Activities [place] Activities Bicycle [place] Other Activities gentle motions Equipment blue float, #2 weights Duration 10 min Comments pt remarked that she felt less pain in deep water PT-OP-T Assessment and Plan Start: 04/02/19 17:40 Freq: Status: Active Protocol: Document 04/13/19 12:15 LJ (Rec: 04/13/19 15:10 LJ [id number]) Physical Therapy Assessment Rehab Potential Rehabilitation Potential Fair Evaluation Complexity Number of Personal Factors/Comorbidities 3 or More Number of Body Systems Impaired 4 or More Clinical Presentation at Evaluation Evolving Impairments Impairments Activity Tolerance Balance Functional Mobility Gait Pain Posture ROM Soft Tissue Mobility Strength Other Impairments 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 Depression & PTSD Cardiac: CHF with A. Fib. Other Concerns Fall Risk Yes per TUG score and history of falls, vertigo. Age Related Concerns Effect on social interactions Barriers to Rehabilitation Extensive multiple Co- morbidities. Goals Five Impairment Pt unable to participate in walking program at home Insulation Board Back Tender Goal (LTG) Pt will be able to walk to end of black and back with use of assistive device. Four Impairment Pain in legs rated 6/10. Short Term Goal (STG) Decrease pain to no greater than 4-5/10 STG Duration 05/17/19 Half-Way Goal (LTG) Decrease pain to no greater than 3/10 LTG Duration 06/28/19 Three Impairment Timed Up and Go (18 secs) Insulation Board Back Tender Goal (LTG) Less than 15 seconds prior to d/c. LTG Duration 06/28/19 Two Impairment LE weakness Short Term Goal (STG) Pt will be able to tolerate a HEP of LE strengthening ex's. STG Duration 05/03/19 Insulation Board Back Tender Goal (LTG) Pt will demonstrate improved LE strength by no less than 1/ 2 grade in areas of weakness. LTG Duration 06/28/19 One Impairment pain rated 10 lumbar spine Short Term Goal (STG) 7 STG Duration 05/17/19 Half-Way Goal (LTG) 01/12 LTG Duration 06/28/19 Assessment Summary Assessment Pt was anxious at beginning of session. She arrived with a caregiver who assisted her to the stairs but pt had no AD. Pt with balance difficulty while walking forward in shallow even with therapist handhold. Donned a belt and used noodle for support and pt was a little more stable. Pt stated that she felt her legs were stiffening up on her and she couldn't walk very well. ROM is limited in hips. In deep water pt felt her legs werre more relaxed. She was able to float upright with Aileen and sm blue float with 2# ankle weights. Pt only able to tolerate gentle and slow movements at this point. Suggest that pt use her walker on the pool deck in addition to having a caregiver with her . Physical Therapy Plan Frequency and Duration Frequency of Treatment 2x/Week Plan of Care Start Date 04/05/19 Plan of Care End Date 06/28/19 Next Visit Focus/Plan Next Note Type Treatment Note Next Visit Plan Aquatic therapy to decrease pain with improved posture, trunk mobility, core strength, hip strength, endurance, and ambulatory tolerance/ability. Please Note Medical history.
--- NOTE | 2019-04-27 15:25 | PT.OTN ---
Current Diagnoses Low back pain (04/27/19) Physical Therapy Treatment Note PT-OP-A Visit Information Start: 04/02/19 17:40 Freq: Status: Active Protocol: Document 04/27/19 12:15 LJ (Rec: 04/27/19 15:25 LJ [email or web address]) Out-Patient Physical Therapy Visit Information Visit Information Visit Type Aquatic Treatment Note Visit Start Time 12:15 Visit Stop Time 13:00 Total Visit Minutes 45 Visit Number 3 Number of CAR CUSTOMIZER Visits 2 Precautions Precautions CHF with A.Fib, Hx of mini TIAs, Daily dizziness, hx of vertigo and falls with last fall 2 months ago, Arachnoiditis diagnosed 5 yrs ago, skin cancer, depression. Per history review: back surgery x 10, neck surgery x 2 , L VERONICA, R TKA, Bunionectomy and 5th toe surgery. PTSD, spondylosis of lumbar spine, OA of C/S, fibromyalgia, chronic pain. PT-OP-B Current Condition Start: 04/02/19 17:40 Freq: Status: Active Protocol: Document 04/05/19 11:20 LRN (Rec: 04/05/19 12:49 LRN [id number]) Current Condition History of Current Condition Onset Date 1 yrs ago with CHF onset and AFib. Current Complaints Weakness in legs and lower back and back pain. History of Current Condition Back pain after knee replacement, could walk but not far. Feels like L shoulder and legs are giving out when walking and it is hard to breath. Sitting or standing for any length of time her back starts hurting. Thinks she can walk 10' before the back starts to hurt . Feet and ankles swell when up and toes turn purple. 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 Future Testing and Treatments Planned None Developmental History Developmental History Pt reports: Has had back surgery at 19 yrs old and has had 14 more. 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 Was working out at the gym 1 yr ago at [employer] and became immobile before the dx of CHF. Was doing ex the rowing machine and bikes and leg press with a personal injury attorney. Fell a year ago onto her back and messed up the neck. Neck joints dissolved. Treatment Goals Patient/Caregiver Goals Pt goal is to strengthen legs, so she can walk far, to end of block and back. Ease the back pain 50%. Prior Functional Status Baseline Function- ADL's Needs Assist Baseline Function- Mobility Needs Assist Baseline Function- Gait Independent in home, SBA in community Baseline Function- Other Assist to dress and SBA for showering. Used pain pills. Current Functional Impairments (Reported) Functional Limitations- ADL's Mild assist with dressing. Functional Limitations- Mobility/Gait Independent with a lot of falls Personal Factors Other Personal Factors That May Effect See precautions list above. Therapy/Recovery PT-OP-C Subjective Start: 04/02/19 17:40 Freq: Status: Active Protocol: Document 04/27/19 12:15 LJ (Rec: 04/27/19 15:25 LJ [email or web address]) OP-PT Subjective Patient Comments Patient Comments Pt enjoyed last pool session. Wants to work on balance and posture OP-PT Pain Assessment Pain Assessment Grid Paper Pain Assessment Grid Completed Yes Location Legs Pain Location Details Posterior LE's Intensity 6 Description Aching Tingling Frequency Constant Pain Aggravating Factors ADL's Pain Alleviating Factors Lying Supine Aqua Therapy Bilateral Back Pain Location Details Low back, down legs Intensity 9 Scale Used Numeric (1 - 10) Description Burning Chronic Cramping Radiating Sharp Tingling Frequency Constant Pain Aggravating Factors Changing Position ADL's Activity Sitting Pain Alleviating Factors Cold Lying Supine Rest Bilateral Neck Pain Location Details Bilateral neck Intensity 6 PT-OP-E Functional Tests Start: 04/02/19 17:40 Freq: Status: Active Protocol: Document 04/05/19 11:20 LRN (Rec: 04/05/19 13:21 LRN [id number]) Functional Tests Timed Up and Go (TUG) Score 18 Comments Pt used hands to assist sit<> stand. Touched wall once TUG Impairment Rating 80 to <100% Impaired (Score 18 -19) Other Gait Speed Name of Test Gait speed Score 2.22 ft/sec Comment Gait without assist device. PT-OP-G Mobility & Gait Start: 04/02/19 17:40 Freq: Status: Active Protocol: Document 04/05/19 11:20 LRN (Rec: 04/05/19 13:21 LRN [id number]) OP Gait Assessment Gait Gait Assistance Required: Standby Assistance Able to Maintain Weight Bearing Status Yes During Gait Assistive Devices Assistive Device None Front Wheeled Walker Orthotic/Prosthetic Devices or Brace: No Gait Deviations General Gait Pattern Flexed Trunk Lateral Trunk Lean Factors Limiting Gait Function Factors Limiting Gait Function Decreased Activity Tolerance Pain Comments Gait Comments Pt is able to ambulate without an assistive device, but limited in distance due to complaints of low back and leg pain. PT-OP-J Posture/Palpation/Skin Start: 04/02/19 17:40 Freq: Status: Active Protocol: Document 04/05/19 11:20 LRN (Rec: 04/05/19 13:17 LRN [id number]) Posture Evaluation Position Standing Head/C-Spine Posture Forward Head T-Spine Posture Flexible Scoliosis on (R) Pelvis Posture (L) Rotated Posterior (R) Rotated Posterior Hip Posture (L) Flexed (R) Flexed Comments Posture Comments Standing: hips flexed 20 deg' s & trunk R sidebent 10 deg's. Muscle tightness in paraspinals. Palpation Assessment Location Hips Palpation Location Bilateral Upper Gluteals Palpation Findings Soft Tissue Tightness Muscle Guarding Tenderness QL Palpation Location Bilateral Quadratus Lumborum Palpation Findings Soft Tissue Tightness Muscle Guarding Tenderness Lumbar paraspinals Palpation Location Bilateral Lumbar paraspinals Palpation Findings Soft Tissue Tightness Muscle Guarding Tenderness Palpation Details Pt posture in L sidebend PT-OP-K Range of Motion Start: 04/02/19 17:40 Freq: Status: Active Protocol: Document 04/05/19 11:20 LRN (Rec: 04/05/19 13:17 LRN [id number]) Lumbar Spine Range of Motion Lumbar Spine Active Degrees Testing Position Standing Lateral Flexion Left 0 Lateral Flexion Right 8 ROM Limitations Soft Tissue Tightness Pain Comments L Sidebend is starting at 8 deg's R SB. Extension - Lacks 20 deg's to neutral Hip Goniometric Range of Motion Hip Right Passive Flexion w/Knee Flexed 60 Abduction 7 Left Passive Flexion w/Knee Flexed 75 Abduction 15 PT-OP-M Strength Start: 04/02/19 17:40 Freq: Status: Active Protocol: Document 04/05/19 11:20 LRN (Rec: 04/05/19 13:17 LRN [id number]) Trunk Strength Trunk Manual Muscle Testing Testing Position Supine Rotation Left 3 Fair Rotation Right 4 Good Core Stabilization Pt is able to stabilize the core during LE MMT except with testing of RLE; therefore strength is at least 4/5 except with L rotation. Reason Not Measured Pain Hip Strength Hip Manual Muscle Testing Right Flexion (L2) 5 Normal Extension (S1) 1 Trace Abduction 3 Fair Adduction 2 Poor Comments Hip ext measured based on Bridging. Pt unable to lift hips from plinth. Left Flexion (L2) 5 Normal Extension (S1) 1 Trace Abduction 3 Fair Adduction 2 Poor Comments Hip ext measured based on Bridging. Pt unable to lift hips from plinth. Knee Strength Knee Manual Muscle Testing Right Reason Not Measured WFL Left Reason Not Measured WFL Ankle/Foot Strength Ankle and Foot Manual Muscle Testing Right Comments Generally 5/5 Left Comments Generally 5/5 except EV 2/5 PT-OP-Q Treatments Start: 04/02/19 17:40 Freq: Status: Active Protocol: Document 04/05/19 11:20 LRN (Rec: 04/09/19 17:51 LRN [id number]) Gait Training Gait Activity Gait without assist device Description Walking for gait speed and walking/turning for TUG. Level of Assistance CGA Surface Level Distance/Duration 10' x 4, 20' Treatment Focus Speed of gait and stability. Comments Extra time taken for practice. PT-OP-S Aquatic Treatment Start: 04/13/19 14:50 Freq: Status: Active Protocol: Document 04/27/19 12:15 LJ (Rec: 04/27/19 15:25 LJ [email or web address]) Aquatics Treatment Pool Entry/Exit Pool Entry/Exit Method Stairs Assistance Contact Guard Assistance Verbal Cues Water Walking start stop forward Water Level Chest Level Level of Assistance Standby Assistance Verbal Cues Comments use of UEs Sideways Water Level Chest Level Walking Equipment belt and noodle Level of Assistance Standby Assistance Contact Guard Assistance Verbal Cues Forwards Water Level Waist Level Level of Assistance Standby Assistance Contact Guard Assistance Verbal Cues Comments L side lean Lower Extremity Exercises flex/ext, abd/add, Body Position Standing Water Level Waist Level Reps/Duration 10 bilat Comments holding wall; cues for posture Lower Extremity Stretches quads, HS Body Position Standing Equipment Small Noodle Reps/Duration 2x 45 Comments against wall hip flexors Body Position Standing Reps/Duration 2x 45 Comments holding onto wall Upper Extremity Exercises flex/ext, abd/add, IR/ER; hor abd,add Details free standing Water Level Chest Level Reps/Duration 10 each dir Comments gentle Upper Extremity Stretches pectoral Details walking forward Equipment UE paddles Reps/Duration 2 laps Comments assisted holding onto hips Balance SLS Water Level Chest Level Reps/Duration 2 min bilat standing with minimal perturbations Water Level Chest Level Comments pt leaning to right using LLE for balance not wt bearing [place] Activities [place] Activities Bicycle Cross [place] Other Activities gentle motions Equipment blue float, #2 weights Duration 10 min PT-OP-T Assessment and Plan Start: 04/02/19 17:40 Freq: Status: Active Protocol: Document 04/27/19 12:15 BRIJESH (Rec: 04/27/19 15:25 LJ [email or web address]) Physical Therapy Assessment Rehab Potential Rehabilitation Potential Fair Evaluation Complexity Number of Personal Factors/Comorbidities 3 or More Number of Body Systems Impaired 4 or More Clinical Presentation at Evaluation Evolving Impairments Impairments Activity Tolerance Balance Functional Mobility Gait Pain Posture ROM Soft Tissue Mobility Strength Other Impairments 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 Depression & PTSD Cardiac: CHF with A. Fib. Other Concerns Fall Risk Yes per TUG score and history of falls, vertigo. Age Related Concerns Effect on social interactions Barriers to Rehabilitation Extensive multiple Co- morbidities. Goals Five Impairment Pt unable to participate in walking program at home Assisted Goal (LTG) Pt will be able to walk to end of black and back with use of assistive device. Four Impairment Pain in legs rated 6/10. Short Term Goal (STG) Decrease pain to no greater than 4-5/10 STG Duration 05/17/19 Compounding Pharmacy Technician Goal (LTG) Decrease pain to no greater than 3/10 LTG Duration 06/28/19 Three Impairment Timed Up and Go (18 secs) Assisted Goal (LTG) Less than 15 seconds prior to d/c. LTG Duration 06/28/19 Two Impairment LE weakness Short Term Goal (STG) Pt will be able to tolerate a HEP of LE strengthening ex's. STG Duration 05/03/19 Compounding Pharmacy Technician Goal (LTG) Pt will demonstrate improved LE strength by no less than 1/ 2 grade in areas of weakness. LTG Duration 06/28/19 One Impairment pain rated 9/10 lumbar spine Short Term Goal (STG) 7/10 STG Duration 05/17/19 Assisted Goal (LTG) 5/10 LTG Duration 06/28/19 Assessment Summary Assessment Pt had better coordination this pool session. Able to use recrip gait pattern more consistently. Required assist with backward walking. Physical Therapy Plan Frequency and Duration Frequency of Treatment 2x/Week Plan of Care Start Date 04/05/19 Plan of Care End Date 06/28/19 Next Visit Focus/Plan Next Note Type Treatment Note Next Visit Plan Aquatic therapy to decrease pain with improved posture, trunk mobility, core strength, hip strength, endurance, and ambulatory tolerance/ability. Please Note Medical history.
--- NOTE | 2019-05-21 14:41 | PT-OP ANOTE ---
DNS for PT appointment. Informed patient we would need to discharge her due to multiple missed appointments. She wanted to be given one more chance and I referred her to PT revenue manager.
--- NOTE | 2019-05-25 15:29 | PT.OTN ---
Current Diagnoses Low back pain (05/25/19) Physical Therapy Treatment Note PT-OP-A Visit Information Start: 04/02/19 17:40 Freq: Status: Active Protocol: Document 05/25/19 14:27 LJ (Rec: 05/25/19 14:29 LJ [email or web address]) Out-Patient Physical Therapy Visit Information Visit Information Visit Type Aquatic Treatment Note Visit Note pt showed up 26 min early Visit Start Time 12:30 Visit Stop Time 13:15 Total Visit Minutes 45 Visit Number 4 Number of PARCEL CARRIER Visits 3 Precautions Precautions CHF with A.Fib, Hx of mini TIAs, Daily dizziness, hx of vertigo and falls with last fall 2 months ago, Arachnoiditis diagnosed 5 yrs ago, skin cancer, depression. Per history review: back surgery x 10, neck surgery x 2 , L VERONICA, R TKA, Bunionectomy and 5th toe surgery. PTSD, spondylosis of lumbar spine, OA of C/S, fibromyalgia, chronic pain. PT-OP-B Current Condition Start: 04/02/19 17:40 Freq: Status: Active Protocol: Document 04/05/19 11:20 LRN (Rec: 04/05/19 12:49 LRN [id number]) Current Condition History of Current Condition Onset Date 1 yrs ago with CHF onset and AFib. Current Complaints Weakness in legs and lower back and back pain. History of Current Condition Back pain after knee replacement, could walk but not far. Feels like L shoulder and legs are giving out when walking and it is hard to breath. Sitting or standing for any length of time her back starts hurting. Thinks she can walk 10' before the back starts to hurt . Feet and ankles swell when up and toes turn purple. 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 Future Testing and Treatments Planned None Developmental History Developmental History Pt reports: Has had back surgery at 19 yrs old and has had 14 more. 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 Was working out at the gym 1 yr ago at [employer] and became immobile before the dx of CHF. Was doing ex the rowing machine and bikes and leg press with a personal development coach. Fell a year ago onto her back and messed up the neck. Neck joints dissolved. Treatment Goals Patient/Caregiver Goals Pt goal is to strengthen legs, so she can walk far, to end of block and back. Ease the back pain 50%. Prior Functional Status Baseline Function- ADL's Needs Assist Baseline Function- Mobility Needs Assist Baseline Function- Gait Independent in home, SBA in community Baseline Function- Other Assist to dress and SBA for showering. Used pain pills. Current Functional Impairments (Reported) Functional Limitations- ADL's Mild assist with dressing. Functional Limitations- Mobility/Gait Independent with a lot of falls Personal Factors Other Personal Factors That May Effect See precautions list above. Therapy/Recovery PT-OP-C Subjective Start: 04/02/19 17:40 Freq: Status: Active Protocol: Document 05/25/19 14:27 LJ (Rec: 05/25/19 14:29 LJ [email or web address]) OP-PT Subjective Patient Comments Patient Comments Pt signed cancellation policy and was informed that if she missed another visit she would be discharged. She stated that she intended to comply. PT-OP-E Functional Tests Start: 04/02/19 17:40 Freq: Status: Active Protocol: Document 04/05/19 11:20 LRN (Rec: 04/05/19 13:21 LRN [id number]) Functional Tests Timed Up and Go (TUG) Score 18 Comments Pt used hands to assist sit<> stand. Touched wall once TUG Impairment Rating 80 to <100% Impaired (Score 18 -19) Other Gait Speed Name of Test Gait speed Score 2.22 ft/sec Comment Gait without assist device. PT-OP-G Mobility & Gait Start: 04/02/19 17:40 Freq: Status: Active Protocol: Document 04/05/19 11:20 LRN (Rec: 04/05/19 13:21 LRN [id number]) OP Gait Assessment Gait Gait Assistance Required: Standby Assistance Able to Maintain Weight Bearing Status Yes During Gait Assistive Devices Assistive Device None,Front Wheeled Walker Orthotic/Prosthetic Devices or Brace: No Gait Deviations General Gait Pattern Flexed Trunk,Lateral Trunk Lean Factors Limiting Gait Function Factors Limiting Gait Function Decreased Activity Tolerance, Pain Comments Gait Comments Pt is able to ambulate without an assistive device, but limited in distance due to complaints of low back and leg pain. PT-OP-J Posture/Palpation/Skin Start: 04/02/19 17:40 Freq: Status: Active Protocol: Document 04/05/19 11:20 LRN (Rec: 08/01/19 13:17 LRN [id number]) Posture Evaluation Position Standing Head/C-Spine Posture Forward Head T-Spine Posture Flexible Scoliosis on (R) Pelvis Posture (L) Rotated Posterior,(R) Rotated Posterior Hip Posture (L) Flexed,(R) Flexed Comments Posture Comments Standing: hips flexed 20 deg' s & trunk R sidebent 10 deg's. Muscle tightness in paraspinals. Palpation Assessment Location Hips Palpation Location Bilateral Upper Gluteals Palpation Findings Soft Tissue Tightness,Muscle Guarding,Tenderness QL Palpation Location Bilateral Quadratus Lumborum Palpation Findings Soft Tissue Tightness,Muscle Guarding,Tenderness Lumbar paraspinals Palpation Location Bilateral Lumbar paraspinals Palpation Findings Soft Tissue Tightness,Muscle Guarding,Tenderness Palpation Details Pt posture in L sidebend PT-OP-K Range of Motion Start: 04/02/19 17:40 Freq: Status: Active Protocol: Document 04/05/19 11:20 LRN (Rec: 04/05/19 13:17 LRN [id number]) Lumbar Spine Range of Motion Lumbar Spine Active Degrees Testing Position Standing Lateral Flexion Left 0 Lateral Flexion Right 8 ROM Limitations Soft Tissue Tightness,Pain Comments L Sidebend is starting at 8 deg's R SB. Extension - Lacks 20 deg's to neutral Hip Goniometric Range of Motion Hip Right Passive Flexion w/Knee Flexed 60 Abduction 7 Left Passive Flexion w/Knee Flexed 75 Abduction 15 PT-OP-M Strength Start: 04/02/19 17:40 Freq: Status: Active Protocol: Document 04/05/19 11:20 LRN (Rec: 04/05/19 13:17 LRN [id number]) Trunk Strength Trunk Manual Muscle Testing Testing Position Supine Rotation Left 3 Fair Rotation Right 4 Good Core Stabilization Pt is able to stabilize the core during LE MMT except with testing of RLE; therefore strength is at least 4/5 except with L rotation. Reason Not Measured Pain Hip Strength Hip Manual Muscle Testing Right Flexion (L2) 5 Normal Extension (S1) 1 Trace Abduction 3 Fair Adduction 2 Poor Comments Hip ext measured based on Bridging. Pt unable to lift hips from plinth. Left Flexion (L2) 5 Normal Extension (S1) 1 Trace Abduction 3 Fair Adduction 2 Poor Comments Hip ext measured based on Bridging. Pt unable to lift hips from plinth. Knee Strength Knee Manual Muscle Testing Right Reason Not Measured WFL Left Reason Not Measured WFL Ankle/Foot Strength Ankle and Foot Manual Muscle Testing Right Comments Generally 5/5 Left Comments Generally 5/5 except EV 2/5 PT-OP-Q Treatments Start: 04/02/19 17:40 Freq: Status: Active Protocol: Document 04/05/19 11:20 LRN (Rec: 04/09/19 17:51 LRN [id number]) Gait Training Gait Activity Gait without assist device Description Walking for gait speed and walking/turning for TUG. Level of Assistance CGA Surface Level Distance/Duration 10' x 4, 20' Treatment Focus Speed of gait and stability. Comments Extra time taken for practice. PT-OP-S Aquatic Treatment Start: 04/13/19 14:50 Freq: Status: Active Protocol: Document 05/25/19 12:30 LJ (Rec: 05/25/19 15:29 LJ [email or web address]) Aquatics Treatment Pool Entry/Exit Pool Entry/Exit Method Stairs Assistance Independent Water Walking reciprocal hand to knee Water Level Chest Level Level of Assistance Standby Assistance,Contact Guard Assistance,Verbal Cues Comments difficulty coordinating mvmt Sideways Water Level Chest Level Level of Assistance Standby Assistance,Verbal Cues Forwards Water Level Waist Level Level of Assistance Standby Assistance,Verbal Cues Comments L side lean Lower Extremity Exercises HS curls Body Position Standing Water Level Chest Level Reps/Duration 2x10 bilat Comments cueing for hip extension hip circumduction Body Position Standing Water Level Chest Level Reps/Duration 2x10 bialt Comments hand hold on wall flex/ext, abd/add, Body Position Standing Water Level Waist Level Reps/Duration 10 bilat Comments holding wall; cues for posture Lower Extremity Stretches quads, HS Body Position Standing Equipment Small Noodle Reps/Duration 2x 45 Comments against wall hip flexors Body Position Standing Reps/Duration 2x 45 Comments holding onto wall Upper Extremity Exercises flex/ext, abd/add, IR/ER; hor abd,add Details free standing Water Level Chest Level Equipment stretch cord Reps/Duration 10 each dir Comments gentle Upper Extremity Stretches pectoral Details walking forward Equipment UE paddles Reps/Duration 2 laps Spinal Exercises rotation Body Position Standing Water Level Waist Level Equipment stretch cords-single Reps/Duration 15 each direction Comments cueing for elbows at sides [place] Activities [place] Activities Bicycle,Cross [place],Running Equipment lg blet #2 weights, noodle Duration 12 min Comments pt able to increase effort with maintaining upright body position PT-OP-T Assessment and Plan Start: 04/02/19 17:40 Freq: Status: Active Protocol: Document 05/25/19 12:30 BRIJESH (Rec: 05/25/19 15:29 LJ [email or web address]) Physical Therapy Assessment Rehab Potential Rehabilitation Potential Fair Impairments Impairments Activity Tolerance,Pain, Posture,ROM,Soft Tissue Mobility Other Impairments 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 Depression & PTSD Cardiac: CHF with A. Fib. Other Concerns Fall Risk Yes per TUG score and history of falls, vertigo. Age Related Concerns Effect on social interactions Barriers to Rehabilitation Extensive multiple Co- morbidities. Goals Five Impairment Pt unable to participate in walking program at home Senior Living Goal (LTG) Pt will be able to walk to end of black and back with use of assistive device. Four Impairment Pain in legs rated 6/10. Short Term Goal (STG) Decrease pain to no greater than 4-5/10 STG Duration 05/17/19 Senior Living Goal (LTG) Decrease pain to no greater than 3/10 LTG Duration 06/28/19 Three Impairment Timed Up and Go (18 secs) Rebrander Goal (LTG) Less than 15 seconds prior to d/c. LTG Duration 06/28/19 Two Impairment LE weakness Short Term Goal (STG) Pt will be able to tolerate a HEP of LE strengthening ex's. STG Duration 05/03/19 Rebrander Goal (LTG) Pt will demonstrate improved LE strength by no less than 1/ 2 grade in areas of weakness. LTG Duration 06/28/19 One Impairment pain rated 9/10 lumbar spine Short Term Goal (STG) 7/10 STG Duration 05/17/19 Senior Living Goal (LTG) 5/10 LTG Duration 06/28/19 Assessment Summary Assessment Pt arrived early and began water walking on her own w/o equipment. Rode hydrobike for a few minutes prior to session and said she liked it and would like to try it again. She shows improvement with balance and posture with cueing. Still difficulty with recip. gait backwards.In deep water pt was able to increase intensity w/o fatigue. Showing progress with strength and coordination. Physical Therapy Plan Frequency and Duration Frequency of Treatment 1x/Week Plan of Care End Date 09/20/18 Next Visit Focus/Plan Next Visit Plan Aquatic therapy to decrease pain with improved posture, trunk mobility and core strength, hip strength and endurance, gait training. Please Note Medical history.
--- NOTE | 2019-05-28 14:39 | PT.OTN ---
Current Diagnoses Low back pain (05/28/19) Physical Therapy Treatment Note PT-OP-A Visit Information Start: 04/02/19 17:40 Freq: Status: Active Protocol: Document 05/28/19 11:45 LJ (Rec: 05/28/19 14:39 LJ [email or web address]) Out-Patient Physical Therapy Visit Information Visit Information Visit Type Aquatic Treatment Note Visit Start Time 11:45 Visit Stop Time 13:15 Total Visit Minutes 45 Visit Number 5 Number of [employer] Visits 4 Precautions Precautions fall risk PT-OP-B Current Condition Start: 04/02/19 17:40 Freq: Status: Active Protocol: Document 04/05/19 11:20 LRN (Rec: 04/05/19 12:49 LRN [id number]) Current Condition History of Current Condition Onset Date 1 yrs ago with CHF onset and AFib. Current Complaints Weakness in legs and lower back and back pain. History of Current Condition Back pain after knee replacement, could walk but not far. Feels like L shoulder and legs are giving out when walking and it is hard to breath. Sitting or standing for any length of time her back starts hurting. Thinks she can walk 10' before the back starts to hurt . Feet and ankles swell when up and toes turn purple. 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 Future Testing and Treatments Planned None Developmental History Developmental History Pt reports: Has had back surgery at 19 yrs old and has had 14 more. 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 Was working out at the gym 1 yr ago at [employer] and became immobile before the dx of CHF. Was doing ex the rowing machine and bikes and leg press with a personal shopper. Fell a year ago onto her back and messed up the neck. Neck joints dissolved. Treatment Goals Patient/Caregiver Goals Pt goal is to strengthen legs, so she can walk far, to end of block and back. Ease the back pain 50%. Prior Functional Status Baseline Function- ADL's Needs Assist Baseline Function- Mobility Needs Assist Baseline Function- Gait Independent in home, SBA in community Baseline Function- Other Assist to dress and SBA for showering. Used pain pills. Current Functional Impairments (Reported) Functional Limitations- ADL's Mild assist with dressing. Functional Limitations- Mobility/Gait Independent with a lot of falls Personal Factors Other Personal Factors That May Effect See precautions list above. Therapy/Recovery PT-OP-C Subjective Start: 04/02/19 17:40 Freq: Status: Active Protocol: Document 05/28/19 11:45 LJ (Rec: 05/28/19 14:39 LJ [email or web address]) OP-PT Subjective Patient Comments Patient Comments Pt says she wants to improve her balance and strength and feels the pool is the best place to do it PT-OP-E Functional Tests Start: 04/02/19 17:40 Freq: Status: Active Protocol: Document 04/05/19 11:20 LRN (Rec: 04/05/19 13:21 LRN [id number]) Functional Tests Timed Up and Go (TUG) Score 18 Comments Pt used hands to assist sit<> stand. Touched wall once TUG Impairment Rating 80 to <100% Impaired (Score 18 -19) Other Gait Speed Name of Test Gait speed Score 2.22 ft/sec Comment Gait without assist device. PT-OP-G Mobility & Gait Start: 04/02/19 17:40 Freq: Status: Active Protocol: Document 04/05/19 11:20 LRN (Rec: 04/05/19 13:21 LRN [id number]) OP Gait Assessment Gait Gait Assistance Required: Standby Assistance Able to Maintain Weight Bearing Status Yes During Gait Assistive Devices Assistive Device None,Front Wheeled Walker Orthotic/Prosthetic Devices or Brace: No Gait Deviations General Gait Pattern Flexed Trunk,Lateral Trunk Lean Factors Limiting Gait Function Factors Limiting Gait Function Decreased Activity Tolerance, Pain Comments Gait Comments Pt is able to ambulate without an assistive device, but limited in distance due to complaints of low back and leg pain. PT-OP-J Posture/Palpation/Skin Start: 04/02/19 17:40 Freq: Status: Active Protocol: Document 04/05/19 11:20 LRN (Rec: 04/05/19 13:17 LRN [id number]) Posture Evaluation Position Standing Head/C-Spine Posture Forward Head T-Spine Posture Flexible Scoliosis on (R) Pelvis Posture (L) Rotated Posterior,(R) Rotated Posterior Hip Posture (L) Flexed,(R) Flexed Comments Posture Comments Standing: hips flexed 20 deg' s & trunk R sidebent 10 deg's. Muscle tightness in paraspinals. Palpation Assessment Location Hips Palpation Location Bilateral Upper Gluteals Palpation Findings Soft Tissue Tightness,Muscle Guarding,Tenderness QL Palpation Location Bilateral Quadratus Lumborum Palpation Findings Soft Tissue Tightness,Muscle Guarding,Tenderness Lumbar paraspinals Palpation Location Bilateral Lumbar paraspinals Palpation Findings Soft Tissue Tightness,Muscle Guarding,Tenderness Palpation Details Pt posture in L sidebend PT-OP-K Range of Motion Start: 04/02/19 17:40 Freq: Status: Active Protocol: Document 04/05/19 11:20 LRN (Rec: 04/05/19 13:17 LRN [id number]) Lumbar Spine Range of Motion Lumbar Spine Active Degrees Testing Position Standing Lateral Flexion Left 0 Lateral Flexion Right 8 ROM Limitations Soft Tissue Tightness,Pain Comments L Sidebend is starting at 8 deg's R SB. Extension - Lacks 20 deg's to neutral Hip Goniometric Range of Motion Hip Right Passive Flexion w/Knee Flexed 60 Abduction 7 Left Passive Flexion w/Knee Flexed 75 Abduction 15 PT-OP-M Strength Start: 04/02/19 17:40 Freq: Status: Active Protocol: Document 04/05/19 11:20 LRN (Rec: 04/05/19 13:17 LRN [id number]) Trunk Strength Trunk Manual Muscle Testing Testing Position Supine Rotation Left 3 Fair Rotation Right 4 Good Core Stabilization Pt is able to stabilize the core during LE MMT except with testing of RLE; therefore strength is at least 4/5 except with L rotation. Reason Not Measured Pain Hip Strength Hip Manual Muscle Testing Right Flexion (L2) 5 Normal Extension (S1) 1 Trace Abduction 3 Fair Adduction 2 Poor Comments Hip ext measured based on Bridging. Pt unable to lift hips from plinth. Left Flexion (L2) 5 Normal Extension (S1) 1 Trace Abduction 3 Fair Adduction 2 Poor Comments Hip ext measured based on Bridging. Pt unable to lift hips from plinth. Knee Strength Knee Manual Muscle Testing Right Reason Not Measured WFL Left Reason Not Measured WFL Ankle/Foot Strength Ankle and Foot Manual Muscle Testing Right Comments Generally 5/5 Left Comments Generally 5/5 except EV 2/5 PT-OP-Q Treatments Start: 04/02/19 17:40 Freq: Status: Active Protocol: Document 04/05/19 11:20 LRN (Rec: 04/09/19 17:51 LRN [id number]) Gait Training Gait Activity Gait without assist device Description Walking for gait speed and walking/turning for TUG. Level of Assistance CGA Surface Level Distance/Duration 10' x 4, 20' Treatment Focus Speed of gait and stability. Comments Extra time taken for practice. PT-OP-S Aquatic Treatment Start: 04/13/19 14:50 Freq: Status: Active Protocol: Document 05/28/19 11:45 LJ (Rec: 05/28/19 14:39 LJ [email or web address]) Aquatics Treatment Pool Entry/Exit Pool Entry/Exit Method Stairs Assistance Standby Assistance Water Walking reciprocal hand to knee Water Level Chest Level Level of Assistance Standby Assistance,Contact Guard Assistance,Verbal Cues Comments difficulty coordinating mvmt start stop forward Water Level Chest Level Walking Equipment Ankle Weight- 2.5# Level of Assistance Standby Assistance,Verbal Cues Comments use of UEs Sideways Water Level Chest Level Walking Equipment Ankle Weight- 2.5# Level of Assistance Standby Assistance,Verbal Cues Forwards Water Level Waist Level Walking Equipment Ankle Weight- 2.5# Level of Assistance Standby Assistance,Verbal Cues Comments L side lean Lower Extremity Exercises HS curls Body Position Standing Water Level Chest Level Equipment Ankle Weight- 2.5# Reps/Duration 2x10 bilat Comments cueing for hip extension hip circumduction Body Position Standing Water Level Chest Level Equipment Ankle Weight- 2.5# Reps/Duration 2x10 bialt Comments hand hold on wall flex/ext, abd/add, Body Position Standing Water Level Waist Level Equipment Ankle Weight- 2.5# Reps/Duration 10 bilat Comments holding wall; cues for posture Lower Extremity Stretches quads, HS Body Position Standing Equipment Small Noodle Reps/Duration 2x 45 Comments against wall hip flexors Body Position Standing Reps/Duration 2x 45 Comments holding onto wall Upper Extremity Exercises flex/ext, abd/add, IR/ER; hor abd,add Details free standing Body Position Standing Water Level Chest Level Equipment UE paddles Reps/Duration [address] Comments gentle Upper Extremity Stretches pectoral Details walking forward Equipment UE paddles Reps/Duration 2 laps Comments verbal and manual cues Balance step ups on boxes Details all directions Water Level Waist Level Reps/Duration 10 each direction leading with both LEs Comments occasional hand hold on wall SLS Water Level Chest Level Reps/Duration 2 min bilat standing with minimal perturbations Water Level Chest Level Comments pt leaning to right using LLE for balance not wt bearing [place] Activities [place] Activities Bicycle,Cross Country,Sit Kicks Equipment lg blue float; #2.5 wts Duration 8 min Comments pt more stable with wts and blue float PT-OP-T Assessment and Plan Start: 04/02/19 17:40 Freq: Status: Active Protocol: Document 05/28/19 11:45 [email or web address] (Rec: 05/28/19 14:39 LJ [id number]) Physical Therapy Assessment Rehab Potential Rehabilitation Potential Fair Evaluation Complexity Number of Personal Factors/Comorbidities 3 or More Number of Body Systems Impaired 4 or More Clinical Presentation at Evaluation Evolving Impairments Impairments Activity Tolerance,Pain, Posture,ROM,Soft Tissue Mobility Other Impairments 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 Depression & PTSD Cardiac: CHF with A. Fib. Other Concerns Fall Risk Yes per TUG score and history of falls, vertigo. Age Related Concerns Effect on social interactions Barriers to Rehabilitation Extensive multiple Co- morbidities. Goals Five Impairment Pt unable to participate in walking program at home [place] Gl[place] Drier Goal (LTG) Pt will be able to walk to end of black and back with use of assistive device. Four Impairment Pain in legs rated 6/10. Short Term Goal (STG) Decrease pain to no greater than 4-5/10 STG Duration 05/17/19 [place] Drier Goal (LTG) Decrease pain to no greater than 3/10 LTG Duration 06/28/19 Three Impairment Timed Up and Go (18 secs) [place] Gl[employer] Drier Goal (LTG) Less than 15 seconds prior to d/c. LTG Duration 06/28/19 Two Impairment LE weakness Short Term Goal (STG) Pt will be able to tolerate a HEP of LE strengthening ex's. STG Duration 05/03/19 Mcc Goal (LTG) Pt will demonstrate improved LE strength by no less than 1/ 2 grade in areas of weakness. LTG Duration 06/28/19 One Impairment pain rated 9/10 lumbar spine Short Term Goal (STG) 7/10 STG Duration 05/17/19 Mcc Goal (LTG) 5/10 LTG Duration 06/28/19 Assessment Summary Assessment Pt improving with balance and gait with occasional LOB on step ups. Did better than expected on boxes with minimal hand hold. Able to stabilize on top of box and control ascent and descent. Physical Therapy Plan Frequency and Duration Frequency of Treatment 1x/Week Plan of Care End Date 09/20/18 Next Visit Focus/Plan Next Note Type Treatment Note Next Visit Plan Posture, balance. strength of core. and LEs for improved gait mechanics and safety.
--- NOTE | 2019-07-25 11:06 | PT.OPDS ---
Current Diagnoses Low back pain (05/28/19) Visit Care Team Role Provider Type Bill Silva MD Attending Provider Physician Primary Care Provider Specialty: [facility] Practice Address: [facility] [place], [address] Email: [email or web address] Visit Number Visit Number 5 Discharge Summary PT-OP-B Current Condition Start: 04/02/19 17:40 Freq: Status: Active Protocol: Document 04/05/19 11:20 LRN (Rec: 04/05/19 12:49 LRN [id number]) Current Condition History of Current Condition Onset Date 1 yrs ago with CHF onset and AFib. Current Complaints Weakness in legs and lower back and back pain. History of Current Condition Back pain after knee replacement, could walk but not far. Feels like L shoulder and legs are giving out when walking and it is hard to breath. Sitting or standing for any length of time her back starts hurting. Thinks she can walk 10' before the back starts to hurt . Feet and ankles swell when up and toes turn purple. 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 Future Testing and Treatments Planned None Developmental History Developmental History Pt reports: Has had back surgery at 19 yrs old and has had 14 more. 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 Was working out at the gym 1 yr ago at [employer] and became immobile before the dx of CHF. Was doing ex the rowing machine and bikes and leg press with a certified personal chef. Fell a year ago onto her back and messed up the neck. Neck joints dissolved. Treatment Goals Patient/Caregiver Goals Pt goal is to strengthen legs, so she can walk far, to end of block and back. Ease the back pain 50%. Prior Functional Status Baseline Function- ADL's Needs Assist Baseline Function- Mobility Needs Assist Baseline Function- Gait Independent in home, SBA in community Baseline Function- Other Assist to dress and SBA for showering. Used pain pills. Current Functional Impairments (Reported) Functional Limitations- ADL's Mild assist with dressing. Functional Limitations- Mobility/Gait Independent with a lot of falls Personal Factors Other Personal Factors That May Effect See precautions list above. Therapy/Recovery PT-OP-C Subjective Start: 04/02/19 17:40 Freq: Status: Active Protocol: Document 05/28/19 11:45 LJ (Rec: 05/28/19 14:39 LJ [email or web address]) OP-PT Subjective Patient Comments Patient Comments Pt says she wants to improve her balance and strength and feels the pool is the best place to do it PT-OP-E Functional Tests Start: 04/02/19 17:40 Freq: Status: Active Protocol: Document 04/05/19 11:20 LRN (Rec: 04/05/19 13:21 LRN [id number]) Functional Tests Timed Up and Go (TUG) Score 18 Comments Pt used hands to assist sit<> stand. Touched wall once TUG Impairment Rating 80 to <100% Impaired (Score 18 -19) Other Gait Speed Name of Test Gait speed Score 2.22 ft/sec Comment Gait without assist device. PT-OP-G Mobility & Gait Start: 04/02/19 17:40 Freq: Status: Active Protocol: Document 04/05/19 11:20 LRN (Rec: 04/05/19 13:21 LRN [id number]) OP Gait Assessment Gait Gait Assistance Required: Standby Assistance Able to Maintain Weight Bearing Status Yes During Gait Assistive Devices Assistive Device None,Front Wheeled Walker Orthotic/Prosthetic Devices or Brace: No Gait Deviations General Gait Pattern Flexed Trunk,Lateral Trunk Lean Factors Limiting Gait Function Factors Limiting Gait Function Decreased Activity Tolerance, Pain Comments Gait Comments Pt is able to ambulate without an assistive device, but limited in distance due to complaints of low back and leg pain. PT-OP-J Posture/Palpation/Skin Start: 04/02/19 17:40 Freq: Status: Active Protocol: Document 04/05/19 11:20 LRN (Rec: 04/05/19 13:17 LRN [id number]) Posture Evaluation Position Standing Head/C-Spine Posture Forward Head T-Spine Posture Flexible Scoliosis on (R) Pelvis Posture (L) Rotated Posterior,(R) Rotated Posterior Hip Posture (L) Flexed,(R) Flexed Comments Posture Comments Standing: hips flexed 20 deg' s & trunk R sidebent 10 deg's. Muscle tightness in paraspinals. Palpation Assessment Location Hips Palpation Location Bilateral Upper Gluteals Palpation Findings Soft Tissue Tightness,Muscle Guarding,Tenderness QL Palpation Location Bilateral Quadratus Lumborum Palpation Findings Soft Tissue Tightness,Muscle Guarding,Tenderness Lumbar paraspinals Palpation Location Bilateral Lumbar paraspinals Palpation Findings Soft Tissue Tightness,Muscle Guarding,Tenderness Palpation Details Pt posture in L sidebend PT-OP-K Range of Motion Start: 04/02/19 17:40 Freq: Status: Active Protocol: Document 04/05/19 11:20 LRN (Rec: 04/05/19 13:17 LRN [id number]) Lumbar Spine Range of Motion Lumbar Spine Active Degrees Testing Position Standing Lateral Flexion Left 0 Lateral Flexion Right 8 ROM Limitations Soft Tissue Tightness,Pain Comments L Sidebend is starting at 8 deg's R SB. Extension - Lacks 20 deg's to neutral Hip Goniometric Range of Motion Hip Right Passive Flexion w/Knee Flexed 60 Abduction 7 Left Passive Flexion w/Knee Flexed 75 Abduction 15 PT-OP-M Strength Start: 04/02/19 17:40 Freq: Status: Active Protocol: Document 04/05/19 11:20 LRN (Rec: 04/05/19 13:17 LRN [id number]) Trunk Strength Trunk Manual Muscle Testing Testing Position Supine Rotation Left 3 Fair Rotation Right 4 Good Core Stabilization Pt is able to stabilize the core during LE MMT except with testing of RLE; therefore strength is at least 4/5 except with L rotation. Reason Not Measured Pain Hip Strength Hip Manual Muscle Testing Right Flexion (L2) 5 Normal Extension (S1) 1 Trace Abduction 3 Fair Adduction 2 Poor Comments Hip ext measured based on Bridging. Pt unable to lift hips from plinth. Left Flexion (L2) 5 Normal Extension (S1) 1 Trace Abduction 3 Fair Adduction 2 Poor Comments Hip ext measured based on Bridging. Pt unable to lift hips from plinth. Knee Strength Knee Manual Muscle Testing Right Reason Not Measured WFL Left Reason Not Measured WFL Ankle/Foot Strength Ankle and Foot Manual Muscle Testing Right Comments Generally 5/5 Left Comments Generally 5/5 except EV 2/5 PT-OP-T Assessment and Plan Start: 04/02/19 17:40 Freq: Status: Active Protocol: Document 07/25/19 11:06 PERRY (Rec: 07/25/19 11:06 SAK [id number]) Physical Therapy Plan Discharge Physical Therapy Discharge Reasons No Longer Attending PT
== END 2019-05-28 13:30 ==
LOC: PHYS 12:30
PROVIDERS: PCP Family Medicine; Visit Provider Family Medicine
DX: M54.5 Low back pain (principal)
CPT/HCPCS: 97113; 97116; 97162

== ENCOUNTER → 2019-05-29 16:33 | Outpatient (CLI) | payer MEDICARE, MEDICAID, SELFPAY | PROVIDERS: PCP Family Medicine; Visit Provider Physician Assistant | DX: R30.0 Dysuria (principal) | CPT/HCPCS: 87086 ==

== ENCOUNTER → 2019-06-01 12:26 | Outpatient (CLI) | payer MEDICARE, MEDICAID, SELFPAY ==
--- NOTE | 2019-06-01 12:29 | DI.US.S_ITS ---
PROCEDURE: US PERIPH VENOUS LOW EXTREM BI INDICATIONS: LT >RT NEW LE EDEMA WITH PAIN, R/O DVT TECHNIQUE: Real-time imaging, as well as color and pulse Doppler interrogation, were performed of the deep veins of both legs from the inguinal ligament to the popliteal fossa. COMPARISON: [facility], , PERIP VENOUS LOW EXTREM LT, 03/31/2019, 19:22. FINDINGS: Right: The common femoral, femoral and popliteal veins are normally compressible, and free of intraluminal thrombus. Color and pulse Doppler demonstrate normal phasic intravascular flow. There is normal augmentation response to distal compression maneuver. Left: The common femoral, femoral and popliteal veins are normally compressible, and free of intraluminal thrombus. Color and pulse Doppler demonstrate normal phasic intravascular flow. There is normal augmentation response to distal compression maneuver. IMPRESSION: No evidence of deep vein thrombosis of the bilateral lower extremities. Dictated by: Sixto Zurita M.D. on 06/01/2019 at 12:27 Approved by: Sixto Zurita M.D. on 06/01/2019 at 12:28
[2019-06-01 14:44] LABS: Add Manual Diff / Slide Review NO; Basophils Absolute Auto 100 /uL (0-100); Basophils Percent Auto 0.9 % (0-2); Eosinophils Absolute Auto 200 /uL (0-450); Eosinophils Percent Auto 2.4 % (2-4); Hematocrit 32.5 % (36-46); Hemoglobin 10.7 g/dL (12.0-16.0); Lymphocytes Absolute Auto 1700 /uL (1100-4500); Lymphocytes Percent Auto 24.8 % (25-40); Mean Corpuscular Hemoglobin 28.2 PG (26-34); Mean Corpuscular Volume 85.4 fL (80-100); Monocytes Absolute Auto 600 /uL (0-900); Monocytes Percent Auto 8.1 % (3-14); Neutrophils Absolute Auto 4400 /uL (1500-7000); Neutrophils Percent Auto 63.8 % (50-75); Platelet Count 229 X10^3/uL (150-400); Red Blood Cell Count 3.81 X10^6/uL (4.0-5.2); Red Cell Distribution Width 15.3 % (11.6-14.8); White Blood Cell Count 6.9 X10^3/uL (4.5-11.0)
[2019-06-01 15:05] LABS: Erythrocyte Sedimentation Rate 43 MM/HR (0-20)
[2019-06-01 15:14] LABS: C-Reactive Protein Quant 1.7 mg/dL (<1.0)
[2019-06-05 00:15] LABS: ANA Screen, IFA NEGATIVE (NEGATIVE)
== END ==
PROVIDERS: PCP Family Medicine; Visit Provider Family Medicine
DX: R60.0 Localized edema (principal); R23.3 Spontaneous ecchymoses; M79.605 Pain in left leg; M79.604 Pain in right leg
CPT/HCPCS: 36415; 85025; 85651; 86038; 86140; 93970

== ENCOUNTER → 2019-09-12 17:30 | Outpatient (CLI) | payer MEDICARE, SELFPAY | PROVIDERS: PCP Family Medicine; Visit Provider Physician Assistant | DX: R30.0 Dysuria (principal) | CPT/HCPCS: 87086 ==

== ENCOUNTER → 2019-12-11 16:20 | Outpatient (CLI) | payer MEDICARE, MEDICAID, SELFPAY ==
--- NOTE | 2019-12-11 16:23 | DI.RAD.S_ITS ---
PROCEDURE: XR HIP W PEL IF DONE LT 2V INDICATIONS: left hip pain upon movement TECHNIQUE: AP pelvis with lateral view(s) of the left hip(s). COMPARISON: [facility], CR, PELVIS WITH BILATERAL HIPS, 11/14/2012, 17:37. [facility], CT, ABDOMEN/PELVIS WITH CONTRAST, 09/03/2014, 15:45. FINDINGS: Bones: No fractures or dislocations. Pelvic ring appears intact. No suspicious bony lesions. Bilateral hip arthroplasty hardware is seen. No findings of hardware failure or hardware loosening are seen. Age-appropriate lower lumbar spine degenerative changes are noted. Soft tissues: The visualized bowel gas pattern is normal. No suspicious soft tissue calcifications. Postoperative sutures are seen involving the mid pelvis. IMPRESSION: Unremarkable bilateral hip arthroplasty hardware. Dictated by: Elvis Michele M.D. on 12/11/2019 at 15:55 Approved by: Elvis Michele M.D. on 12/11/2019 at 15:56
== END ==
PROVIDERS: PCP Family Medicine; Referring Provider Family Medicine; Visit Provider Family Medicine
DX: M25.552 Pain in left hip (principal); M47.816 Spondylosis without myelopathy or radiculopathy, lumbar region; Z96.643 Presence of artificial hip joint, bilateral
CPT/HCPCS: 73502

== ENCOUNTER 2019-12-14 11:43 | Emergency (ER) | payer MEDICARE, MEDICAID, SELFPAY ==
[2019-12-14] VITALS (9 sets, daily range): BP systolic 190–222; BP diastolic 80–119; PULSE 65–78; RESP 18; TEMP 37.1; O2SAT 94–99
--- NOTE | 2019-12-14 11:58 | PC.NURSE ---
Pt had not taken her morning meds but had them with her. Took all morning meds including htn meds w/ [employer] permission.
[2019-12-14] MEDS: diazePAM 5 MG TABLET PO (12:21)
[2019-12-14] MEDS: LIDOCAINE PATCH 1 EACH ADH..PATCH TOP (12:21)
[2019-12-14] MEDS: PANTOPRAZOLE 20 MG TABLET PO (12:21)
[2019-12-14] MEDS: predniSONE 20 MG TABLET 40 MG PO (12:21)
[2019-12-14] MEDS: LOSARTAN 50 MG TABLET 100 MG PO (12:35)
--- NOTE | 2019-12-14 12:44 | DI.RAD.S_ITS ---
PROCEDURE: XR LUMBAR SPINE 2-3V INDICATIONS: right low back pain radiating to leg TECHNIQUE: 3 views of the lumbar spine were acquired. COMPARISON: [facility]ed [facility], CT, L-SPINE WITHOUT CONTRAST, 02/12/2016, 13:19. Merged With [facility], CR, XR HIP W PEL IF DONE LT 2V, 12/11/2019, 16:20. Merged With [facility], CR, L-SPINE MINIMUM 4 VIEWS, 10/12/2015, 15:54. FINDINGS: Bones: Postoperative changes are seen, with bilateral pedicle screws at the L1-L4 levels. The screws appear well placed. Vertical fixation rods are seen. No findings of hardware failure or hardware loosening are seen. Bone grafting material is noted. 5 nonrib-bearing, lumbar type vertebral bodies are seen. No acute appearing fractures are seen. No suspicious lytic or blastic lesions can be seen. Bony fusion can be seen at L4-L5 and at L5-S1. Moderate to severe disc space narrowing can be seen at L1-L2, L2-L3, and L3-L4. Mild levoconvex scoliotic curvature is noted. Age-appropriate lower thoracic spine degenerative changes are seen. There is partial visualization of bilateral hip arthroplasty. Soft tissues: Overlying bowel gas pattern is normal. No suspicious soft tissue calcifications. Cholecystectomy clips are seen. IMPRESSION: Unremarkable postoperative hardware. Lower lumbar spine vertebral body fusion. Dictated by: Elvis Michele M.D. on 12/14/2019 at 12:22 Approved by: Elvis Michele M.D. on 12/14/2019 at 12:24
--- NOTE | 2019-12-14 14:18 | ED.BACK ---
HPI - Back Pain/Injury <HAMZAH Pyle - Last Filed: 12/14/19 21:11> General Chief Complaint: Back Pain/Injury Stated Complaint: High BP, severe pain in both legs, especially R Time Seen by Provider: 12/14/19 11:46 Source: patient Mode of arrival: Wheelchair Limitations: no limitations History of Present Illness HPI Narrative: This is a 74 year female, former smoker, who presents to ED with right-sided low back pain radiating to her legs for last 4 days after she almost fell after her feet got tangled but she was able to caught herself from falling. Patient reports since then her back pain has been severe and spasming. Patient denies new or changes in incontinence for urine or stools. Patient denies urinary symptoms, weakness to her legs. Patient is currently taking Tylenol extra-strength 2 test with ibuprofen 2 tabs around the clock which was taken last at 10:38 a.m. before coming into ED. patient also takes Suboxone daily 3 times a day for chronic pain with 1.5 mg of naloxone in the morning and afternoon and 1 mg at night. Patient states she is able to bend forward, rotate her body but increases pain with raising her right leg and extending her back. Patient has her pain management doctor in [facility] next week who prescribes her Suboxone. Patient also states her blood pressure has been elevated and reports has not taking her BP medications this morning since she forgot. She takes losartan, metoprolol and also takes Eliquis for AFib. Related Data Home Medications Medication Instructions Recorded Confirmed buprenorphine 8 mg-naloxone 2 mg 1 film SL DAILY 03/21/18 11/26/19 sublingual film apixaban 5 mg tablet 5 mg PO BID 10/12/19 12/14/19 furosemide 40 mg PO QAM 12/14/19 12/14/19 Previous Rx's Medication Instructions Recorded albuterol sulfate 90 mcg/actuation 2 puff INHALATION Q6H PRN #8.5 gram 09/21/18 aerosol inhaler omeprazole 20 mg capsule,delayed 20 mg PO QDAY #90 cap 03/23/19 release Disabled Parking Permit #1 each 06/07/19 nitroglycerin 0.4 mg sublingual See Rx Instructions .ROUTE 06/28/19 tablet .COMPLEX #25 unspecified triamcinolone acetonide 0.1 % 1 applictn TOP BID #30 gram 07/16/19 topical ointment duloxetine 60 mg capsule,delayed 120 mg PO DAILY #60 cap 10/12/19 release losartan 100 mg tablet 100 mg PO DAILY #90 tab 10/15/19 bupropion HCl 300 mg 24 hr tablet, 300 mg PO QAM #30 tab 10/24/19 extended release metoprolol succinate 25 mg 25 mg PO BID #180 tab 11/26/19 tablet,extended release 24 hr buprenorphine-naloxone [Suboxone] 1 film SL TID 5 Days #15 each 12/14/19 lidocaine 1 patch TOP Q24H #30 each 12/14/19 pantoprazole 20 mg PO BEDTIME #14 tab 12/14/19 prednisone 40 mg PO DAILY 4 Days #8 tab 12/14/19 Allergies Allergy/AdvReac Type Severity Reaction Status Date / Time ciprofloxacin AdvReac Intermediate FLUSHING, Verified 12/14/19 11:53 SWEATS, SOB citalopram [CITALOPRAM] AdvReac Intermediate Hallucinati Verified 12/14/19 11:53 ons cyclobenzaprine AdvReac Intermediate FLUSHING, Verified 12/14/19 11:53 SWEATS, SOB pregabalin AdvReac Intermediate FLUSHING/SW Verified 12/14/19 11:53 EATS/SOB Review of Systems <HAMZAH Pyle - Last Filed: 12/14/19 21:11> Review of Systems Narrative: General: Denies fever, chills, fatigue, malaise, sweats. HEENT: Denies sinus pain, ear pain, sore throat, difficulty swallowing, dizziness. Respiratory: Denies dyspnea, cough, wheezing, hemoptysis, sputum. Cardiovascular: Denies chest pain, palpitations, orthopnea, edema. Gastrointestinal: Denies nausea, vomiting, abdominal pain, diarrhea, constipation, melena. : Denies dysuria, frequency, incontinence, hematuria, urinary retention. Musculoskeletal: See HPI Skin: Denies rash, skin lesions, or other. Neurologic: Denies weakness, headache, numbness, change in speech, confusion, seizures, incoordination. Psychiatric: No concerning psychosocial issues. 12-point review of systems is negative except for those stated above. Patient History <HAMZAH Pyle - Last Filed: 12/14/19 21:11> Medical History Abnormal Pap smear of cervix (Chronic ~1956) Anemia (Chronic) Ankle pain (Chronic) Anxiety (Chronic) Arachnoiditis (Chronic) Atrial fibrillation (Chronic) Cataracts, bilateral (Chronic) Cervical spine disease (Chronic) Chronic back pain (Chronic) Cystic fibrosis (Chronic ~1956) Cystic fibrosis (Chronic ~1956) Degenerative joint disease (DJD) of lumbar spine (Chronic) Depression (Chronic) Fibromyalgia (Chronic) Fibromyalgia (Chronic) Foot pain (Chronic) GERD (gastroesophageal reflux disease) (Chronic) GI bleeding (Chronic) Heavy menstrual period (Chronic) Hypertension (Chronic) Kidney stones (Chronic) Osteoporosis (Chronic) Peripheral neuropathy (Acute) Pneumonia (Chronic) Post traumatic stress disorder (PTSD) (Chronic) Raynaud's disease without gangrene (Acute) Restless leg syndrome (Chronic) Rheumatoid arthritis (Chronic) Scoliosis (Chronic) Severe 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, without psychotic features (Inactive 07/05/16) Skin cancer (Chronic ~1996) Stroke (Chronic) Venous stasis (Acute) Vertigo (Chronic ~1968) Surgical History History of back surgery (Chronic) History of hip replacement History of knee replacement (11/29/16) History of neck surgery (Chronic) S/P total abdominal hysterectomy and bilateral salpingo-oophorectomy Status post appendectomy Status post bunionectomy (08/11/15) Status post cholecystectomy Status post tonsillectomy and adenoidectomy Status post tubal ligation Social History marital status: Smoking Status: Former smoker alcohol intake: never substance use type: does not use Smoking Status: Former smoker alcohol intake frequency: 0-2 drinks per day Substance Use Type: does not use Exam <HAMZAH Pyle - Last Filed: 12/14/19 21:11> Narrative Exam Narrative: GEN: Alert, oriented x 3, well appearing and nourished, and in no acute distress. Head: Normal cephalic, atraumatic. No scalp or temporal tenderness, palpable mass or rash. EYES: Pupils are equal, round, and reactive to light and accommodation. Extraocular muscles are intact bilaterally. There is no subconjunctival hemorrhage, exudate and sclera non-icteric. ENT: Bilateral auditory canals and tympanic membranes clear. Hearing grossly intact. Nose without bleeding, purulent discharge or deviation. Facial sinuses nontender to palpate. Mucous membrane moist, no mucosal lesion. Throat without erythema, tonsillar hypertrophy or exudate. Uvula in midline, airway patent. Neck: Trachea in midline. No JVD, non-tender without lymphadenopathy. No masses or thyroid megaly. Supple, non-tender and no meningeal signs. CARDIAC: Normal regular rate and rhythm without murmurs, gallops, or rubs. No chest wall tenderness. No peripheral edema, cyanosis or pallor. Capillary refill is less than 2 seconds. RESPIRATORY: Lungs are clear to auscultate bilaterally. No cough, wheezes, rales, or rhonchi. No stridor, respiratory distress, increase work of breathing, or accessary muscle used. ABD: Abdomen soft, nontender and non-distended. No guarding or rebound tenderness to palpate. Bowel sounds are normal in all 4 quadrants. There is no palpable masses or organomegaly. EXT: Full painless ROM of all extremities with no loss of sensation, strength, effusion or edema. SKIN: Warm, dry, normal color for patient. No erythema, lesions or rash over visible areas. BACK: No deformity, rash or crepitance. No flank tenderness. NEUROLOGICAL: Alert and oriented to place, time and person. Sensation and motor function intact bilaterally. No facial droops, dysphasia. PSYCHIATRIC: Good judgement and reason, without hallucinations, abnormal affect or abnormal behaviors during the examination. Patient is not suicidal. Initial Vital Signs Initial Vital Signs: Vital Signs Temperature 98.7 F 12/14/19 11:45 Pulse Rate 70 12/14/19 11:45 Respiratory Rate 18 12/14/19 11:45 Blood Pressure 222/111 H 12/14/19 11:45 Pulse Oximetry 96 12/14/19 11:45 Back/Spine/Pelvis Back: normal to inspection, back tenderness (Right low back), No crepitance, No CVA tenderness, No ecchymosis, No erythema and No mass Thoracic/Lumbar Spine: thoracic and lumbar spine normal to inspection, No thoraco-lumbar ROM normal, No bend over test abnormal, pain with thoraco-lumbar ROM, paraspinal tenderness, thoraco-lumbar ROM limited, thoraco-lumbar spasm, No thoracic spinal tenderness, lumbar spinal tenderness, straight leg raise positive (Right-sided) and tilt present <Jossy Zhao MD - Last Filed: 12/15/19 07:15> Initial Vital Signs Initial Vital Signs: Vital Signs Temperature 98.7 F 12/14/19 11:45 Pulse Rate 70 12/14/19 11:45 Respiratory Rate 18 12/14/19 11:45 Blood Pressure 222/111 H 12/14/19 11:45 Pulse Oximetry 96 12/14/19 11:45 Scores <[facility] HAMZAH Huitron - Last Filed: 12/14/19 21:11> GCS [place] coma scale eye opening: Spontaneous [place] coma scale verbal response: Orientated [place] coma scale motor response: Obey commands [place] coma scale total score: 15 Course <[facility] HAMZAH Huitron - Last Filed: 12/14/19 21:11> Orders Ordered: Discontinued Medications Diazepam (Valium) 5 mg PO NOW ONE Stop: 12/14/19 11:59 Last Admin: 12/14/19 12:21 Dose: 5 mg Documented by: JERONIMO Diazepam (Valium) 5 mg PO NOW ONE Stop: 12/14/19 13:40 Last Admin: 12/14/19 14:09 Dose: Not Given Documented by: JERONIMO Lidocaine (Lidoderm) 1 each TOP NOW ONE Stop: 12/14/19 11:59 Last Admin: 12/14/19 12:21 Dose: 1 each Documented by: JERONIMO Losartan Potassium (Cozaar) 100 mg PO NOW ONE Stop: 12/14/19 12:25 Last Admin: 12/14/19 12:35 Dose: 100 mg Documented by: JERONIMO Pantoprazole Sodium (Protonix) 20 mg PO NOW ONE Stop: 12/14/19 11:59 Last Admin: 12/14/19 12:21 Dose: 20 mg Documented by: JERONIMO Prednisone (Deltasone) 40 mg PO NOW ONE Stop: 12/14/19 11:59 Last Admin: 12/14/19 12:21 Dose: 40 mg Documented by: JERONIMO Vital Signs Vital signs: Vital Signs - 8 hr 12/14/19 13:30 12/14/19 14:00 12/14/19 14:05 Pulse Rate 65 78 Respiratory Rate 18 Blood Pressure [Right Arm] 216/107 H 201/88 H 209/92 H Pulse Oximetry 94 98 12/14/19 15:04 Pulse Rate 75 Respiratory Rate 18 Blood Pressure [Right Arm] 190/80 H Pulse Oximetry 99 <Jossy Zhao MD - Last Filed: 12/15/19 07:15> Orders Ordered: Discontinued Medications Diazepam (Valium) 5 mg PO NOW ONE Stop: 12/14/19 11:59 Last Admin: 12/14/19 12:21 Dose: 5 mg Documented by: JERONIMO Diazepam (Valium) 5 mg PO NOW ONE Stop: 12/14/19 13:40 Last Admin: 12/14/19 14:09 Dose: Not Given Documented by: JERONIMO Lidocaine (Lidoderm) 1 each TOP NOW ONE Stop: 12/14/19 11:59 Last Admin: 12/14/19 12:21 Dose: 1 each Documented by: JERONIMO Losartan Potassium (Cozaar) 100 mg PO NOW ONE Stop: 12/14/19 12:25 Last Admin: 12/14/19 12:35 Dose: 100 mg Documented by: JERONIMO Pantoprazole Sodium (Protonix) 20 mg PO NOW ONE Stop: 12/14/19 11:59 Last Admin: 12/14/19 12:21 Dose: 20 mg Documented by: JERONIMO Prednisone (Deltasone) 40 mg PO NOW ONE Stop: 12/14/19 11:59 Last Admin: 12/14/19 12:21 Dose: 40 mg Documented by: JERONIMO Vital Signs Vital signs: Vital Signs - 8 hr 12/14/19 13:30 12/14/19 14:00 12/14/19 14:05 Pulse Rate 65 78 Respiratory Rate 18 Blood Pressure [Right Arm] 216/107 H 201/88 H 209/92 H Pulse Oximetry 94 98 12/14/19 15:04 Pulse Rate 75 Respiratory Rate 18 Blood Pressure [Right Arm] 190/80 H Pulse Oximetry 99 MDM - Back Pain/Injury <HAMZAH Pyle - Last Filed: 12/14/19 21:11> Differential Diagnosis Differential diagnosis: Likely lumbar radiculopathy, sciatica and strain of lumbar region Medical Records Attestation: I reviewed the patient's medical records. Imaging Data XR-Lumbar: Radiologist's Impression: [address] [address] XRay Report Signed Patient: Janet Paris FMR#: [id number] : 5Acct:[id number] Age/Sex: 74 / FDate of Service: 12/14/19 Loc: ED Accession Number: [id number] Procedure: XR lumbar spine 2-3V Ordering Provider: Wu Huitron PROCEDURE: XR LUMBAR SPINE 2-3V INDICATIONS: right low back pain radiating to leg TECHNIQUE: 3 views of the lumbar spine were acquired. COMPARISON: [facility], CT, L-SPINE WITHOUT CONTRAST, 02/12/2016, 13:19. [facility], CR, XR HIP W PEL IF DONE LT 2V, 12/11/2019, 16:20. [facility], CR, L-SPINE MINIMUM 4 VIEWS, 10/12/2015, 15:54. FINDINGS: Bones: Postoperative changes are seen, with bilateral pedicle screws at the L1-L4 levels. The screws appear well placed. Vertical fixation rods are seen. No findings of hardware failure or hardware loosening are seen. Bone grafting material is noted. 5 nonrib-bearing, lumbar type vertebral bodies are seen. No acute appearing fractures are seen. No suspicious lytic or blastic lesions can be seen. Bony fusion can be seen at L4-L5 and at L5-S1. Moderate to severe disc space narrowing can be seen at L1-L2, L2-L3, and L3-L4. Mild levoconvex scoliotic curvature is noted. Age-appropriate lower thoracic spine degenerative changes are seen. There is partial visualization of bilateral hip arthroplasty. Soft tissues: Overlying bowel gas pattern is normal. No suspicious soft tissue calcifications. Cholecystectomy clips are seen. IMPRESSION: Unremarkable postoperative hardware. Lower lumbar spine vertebral body fusion. Dictated by: Elvis Michele M.D. on 12/14/2019 at 12:22 Approved by: Elvis Michele M.D. on 12/14/2019 at 12:24 MDM Narrative Medical decision making narrative: This is a 74 year female who has chronic pain issues, several back surgeries and takes Suboxone 3 times a day daily presents to ED with right-sided low back spasming and pain with sciatica after she had near falling 3-4 days ago after feet got tangled. Patient states has been difficulty walking either with walker, cane due to severe discomfort. Patient has allergies to Flexeril. Patient has been taking Tylenol and Motrin for discomfort at home which has not been effective for pain management. Positive for right leg raise test. Bilateral lower extremity strength was equal bilaterally with intact sensation. Patient denies saddle anesthesia, changes in urinary or stool incontinence, rash on back, fever or chills. Lumbar x-ray does not show acute findings or hardware failure or hardware loosening postoperatively. Patient was medicated with Valium 5 mg, prednisone 40 mg along PPI since she is already on NSAIDs while avoiding other narcotic pain medications. Discussed the patient's findings with Dr. Zhao and it was recommended to increase her Suboxone dose for next couple of days which patient had not taken for morning dose. Patient was able to ambulate with a walker to the bathroom and back to bed in stable gait which was an improvement for patient. Patient discharged to home with same medication regimen with prednisone for 5 day course, Protonix, and additional dose of Suboxone. Patient has a follow-up appointment with pain management clinic next week in [facility] which advised to follow-up. Patient advised to continue with Tylenol and or Motrin as first-line medication for pain. Return precautions were discussed with patient and patient verbalized understanding and in agreement with treatment plan. Discharge Plan Departure Patient Disposition: Home Clinical Impression: Low back pain Qualifiers: Chronicity: acute Back pain laterality: right Sciatica presence: with sciatica Sciatica laterality: sciatica of right side Qualified Code(s): M54.41 - Lumbago with sciatica, right side Discharge Date/Time: 12/14/19 15:14 Instructions: DI for Back Pain With Sciatica Activity Restrictions/Additional Instructions: You have been diagnosed with [right-sided low back pain with sciatica. Were seen per x-ray test today. You were treated with lidocaine patch, small dose of Valium for muscle relaxant, prednisone with PPI/pantoprazole. Your blood pressure was elevated in the ED likely due to pain and forgot to take blood pressure this morning]. What to do: *Take your medications as directed. Please increase your Suboxone dose for next couple of days as needed for severe pain. ( I have written a new prescription to allow you to increase up to 8mg, a full strip, 3 times a day from your usual 4mg three times a day. I have let your [facility] provider know this as well) Please use lidocaine patch on affected back which stays on for 12 hours and off for 12 hours. Please continue to use prednisone 40 mg next 4 days with PPI. This medication has been transmitted to [facility] including additional dose of Suboxone. Please start tomorrow since you are medicated with 1st dose while in ED. *Follow up with your primary care provider in 2-3 days, call for an appointment. Let them know you were seen in the ED and that we asked you to be seen in follow up. *Return to ED if you have any new, worsening, or concerning symptoms, such as [chest pain, breathing difficulty, unable to tolerate fluids, changes in incontinence for stool and bladder, weakness/numbness/tingling to lower extremities or any acute concerns]. Prescriptions: New pantoprazole 20 mg tablet,delayed release (DR/EC) 20 mg PO BEDTIME Qty: 14 RF: 0 lidocaine 5 % adhesive patch,medicated 1 patch TOP Q24H Qty: 30 RF: 0 prednisone 20 mg tablet 40 mg PO DAILY 4 Days Qty: 8 RF: 0 buprenorphine-naloxone [Suboxone] 8-2 mg film 1 film SL TID 5 Days Qty: 15 RF: 0 No Action metoprolol succinate [Toprol XL] 25 mg tablet extended release 24 hr 25 mg PO BID Qty: 180 RF: 3 buprenorphine-naloxone 8-2 mg film 1 film SL DAILY RF: 0 omeprazole 20 mg capsule,delayed release(DR/EC) 20 mg PO QDAY Qty: 90 RF: 1 (DME) Disabled Parking Permit Qty: 1 RF: 0 nitroglycerin 0.4 mg tablet, sublingual See Rx Instructions .ROUTE .COMPLEX Qty: 25 RF: 1 triamcinolone acetonide 0.1 % ointment 1 applictn TOP BID Qty: 30 RF: 0 duloxetine 60 mg capsule,delayed release(DR/EC) 120 mg PO DAILY Qty: 60 RF: 5 Eliquis 5 mg tablet 5 mg PO BID RF: 0 losartan 100 mg tablet 100 mg PO DAILY Qty: 90 RF: 3 bupropion HCl 300 mg tablet extended release 24 hr 300 mg PO QAM Qty: 30 RF: 2 albuterol sulfate 90 mcg/actuation HFA aerosol inhaler 2 puff INHALATION Q6H PRN (Reason: shortness of breath) Qty: 8.5 RF: 1 furosemide 40 mg tablet 40 mg PO QAM RF: 0 Referrals: Bill Silva MD [Primary Care Provider] - <Jossy Zhao MD - Last Filed: 12/15/19 07:15> Cosign ED Attending Cosignature Attestation: Patient was seen and examined with [facility] today. Acute radicular back pain in the setting of chronic back pain already on Suboxone for such. No red flags are additional findings to suggest need for additional imaging. In consultation, we opted to not give Valium or any additional muscle relaxers. Did suggest that she increase her Suboxone and she self administered 8 mg of Suboxone in the emergency department today. Typical dose is 4 mg 3 times a day and I recommended that she go up to 8 mg 3 times a day based on pain levels. Brief message was left with [facility], her prescribing clinic for Suboxone to let them know about the additional Suboxone prescription as well as medical advice to increase her dose. She seemed much more comfortable at time of discharge and was given prescription for steroids to help with acute inflammation.
== END 2019-12-14 15:14 | disposition home or self-care (01) ==
PROVIDERS: Emergency Provider Nurse Practitioner Family; PCP Family Medicine; Referring Provider Family Medicine
DX: M54.41 Lumbago with sciatica, right side (principal); I10 Essential (primary) hypertension; I48.91 Unspecified atrial fibrillation; Z79.01 Long term (current) use of anticoagulants
CPT/HCPCS: 72100; 99283

== ENCOUNTER 2019-12-29 16:40 | Emergency (ER) | payer MEDICARE, MEDICAID, SELFPAY ==
[2019-12-29 16:50] VITALS: BP 159/66; PULSE 64; RESP 16; TEMP 36.9; O2SAT 95; BMI 33.5
--- NOTE | 2019-12-29 17:10 | ED_ITS ---
HPI - Extremity Injury (Lower) <Varsha HamptonHAMZAH - Last Filed: 12/29/19 19:27> General Chief Complaint: Extremity Injury, Lower Stated Complaint: black toe nail right foot Time Seen by Provider: 12/29/19 16:46 Source: patient Mode of arrival: Ambulatory History of Present Illness HPI Narrative: 74yo female presents to the emergency department for right 2nd toe pain for the past few years. She states she stubbed her toe a few years ago and she feels like the nail is growing irregularly. She states ?it is getting worse. Patient states she has had surgery on her foot in the past, she has been seen by a stock repairer but she states ?she must by foot up when all the sutures came amount the day after surgery ?. Patient states that she has not been seen by a stock repairer for her nail issue. She also reports that she has been having right-sided leg pain that starts in the back and radiates down past her right knee. She states she was seen in the emergency department on 12/13 and diagnosed with sciatica. Patient reports it feels like ?a nerve is exposed in my leg. She states the pain has slowly improved and is not as bad as it has been in the past. Patient states it is worse when she raises her leg. Patient reports she has had multiple back surgeries in the past, she states ?my 1st surgery was when I was a teenager. She denies any other symptoms such as fever, chills, cough, shortness of breath, nausea, vomiting, diarrhea, or any other concerns. Related Data Home Medications Medication Instructions Recorded Confirmed buprenorphine 8 mg-naloxone 2 mg 1 film SL DAILY 03/21/18 11/26/19 sublingual film apixaban 5 mg tablet 5 mg PO BID 10/12/19 12/14/19 furosemide 40 mg PO QAM 12/14/19 12/14/19 Previous Rx's Medication Instructions Recorded albuterol sulfate 90 mcg/actuation 2 puff INHALATION Q6H PRN #8.5 gram 09/21/18 aerosol inhaler omeprazole 20 mg capsule,delayed 20 mg PO QDAY #90 cap 03/23/19 release Disabled Parking Permit #1 each 06/07/19 nitroglycerin 0.4 mg sublingual See Rx Instructions .ROUTE 06/28/19 tablet .COMPLEX #25 unspecified triamcinolone acetonide 0.1 % 1 applictn TOP BID #30 gram 07/16/19 topical ointment duloxetine 60 mg capsule,delayed 120 mg PO DAILY #60 cap 10/12/19 release losartan 100 mg tablet 100 mg PO DAILY #90 tab 10/15/19 bupropion HCl 300 mg 24 hr tablet, 300 mg PO QAM #30 tab 10/24/19 extended release metoprolol succinate 25 mg 25 mg PO BID #180 tab 11/26/19 tablet,extended release 24 hr buprenorphine-naloxone [Suboxone] 1 film SL TID 5 Days #15 each 12/14/19 lidocaine 1 patch TOP Q24H #30 each 12/14/19 pantoprazole 20 mg PO BEDTIME #14 tab 12/14/19 prednisone 40 mg PO DAILY 4 Days #8 tab 12/14/19 hydroxyzine HCl 25 mg tablet 25 mg PO BEDTIME #30 tab 12/26/19 efinaconazole 1 applictn TOP BEDTIME #8 ml 12/29/19 methocarbamol 1,000 mg PO BID #20 tab 12/29/19 Allergies Allergy/AdvReac Type Severity Reaction Status Date / Time ciprofloxacin AdvReac Intermediate FLUSHING, Verified 12/14/19 11:53 SWEATS, SOB citalopram [CITALOPRAM] AdvReac Intermediate Hallucinati Verified 12/14/19 11:53 ons cyclobenzaprine AdvReac Intermediate FLUSHING, Verified 12/14/19 11:53 SWEATS, SOB pregabalin AdvReac Intermediate FLUSHING/SW Verified 12/14/19 11:53 EATS/SOB Review of Systems <HAMZAH Marley - Last Filed: 12/29/19 19:27> Review of Systems Narrative: REVIEW OF SYSTEMS: GENERAL: Denies fever or chills. HENT: No head trauma. EYES: No double vision or vision loss. CARDIOVASCULAR: No chest pain or syncope. RESPIRATORY: No shortness of breath or cough. GASTROINTESTINAL: No nausea, vomiting, diarrhea, or constipation. MUSCULOSKELETAL: Complains of toe and R sciatic pain, see HPI. INTEGUMENTARY: No rash, lesions, or pruritus. NEURO: No numbness, tingling. Patient History <HAMZAH Marley - Last Filed: 12/29/19 19:27> Medical History Abnormal Pap smear of cervix (Chronic ~1956) Anemia (Chronic) Ankle pain (Chronic) Anxiety (Chronic) Arachnoiditis (Chronic) Atrial fibrillation (Chronic) Cataracts, bilateral (Chronic) Cervical spine disease (Chronic) Chronic back pain (Chronic) Cystic fibrosis (Chronic ~1956) Cystic fibrosis (Chronic ~1956) Degenerative joint disease (DJD) of lumbar spine (Chronic) Depression (Chronic) Fibromyalgia (Chronic) Fibromyalgia (Chronic) Foot pain (Chronic) GERD (gastroesophageal reflux disease) (Chronic) GI bleeding (Chronic) Heavy menstrual period (Chronic) Hypertension (Chronic) Kidney stones (Chronic) Osteoporosis (Chronic) Peripheral neuropathy (Acute) Pneumonia (Chronic) Post traumatic stress disorder (PTSD) (Chronic) Raynaud's disease without gangrene (Acute) Restless leg syndrome (Chronic) Rheumatoid arthritis (Chronic) Scoliosis (Chronic) Severe 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, without psychotic features (Inactive 07/05/16) Skin cancer (Chronic ~1996) Stroke (Chronic) Venous stasis (Acute) Vertigo (Chronic ~1968) Surgical History History of back surgery (Chronic) History of hip replacement History of knee replacement (11/29/16) History of neck surgery (Chronic) S/P total abdominal hysterectomy and bilateral salpingo-oophorectomy Status post appendectomy Status post bunionectomy (08/11/15) Status post cholecystectomy Status post tonsillectomy and adenoidectomy Status post tubal ligation Social History marital status: Smoking Status: Former smoker alcohol intake: never substance use type: does not use Smoking Status: Former smoker alcohol intake frequency: 0-2 drinks per day Substance Use Type: does not use, former substance user and prescription drug Exam <HAMZAH Marley - Last Filed: 12/29/19 19:27> Initial Vital Signs Initial Vital Signs: Vital Signs Temperature 98.5 F 12/29/19 16:50 Pulse Rate 64 12/29/19 16:50 Respiratory Rate 16 12/29/19 16:50 Blood Pressure 159/66 H 12/29/19 16:50 Pulse Oximetry 95 12/29/19 16:50 PHYSICAL EXAMINATION: GENERAL: Alert and awake. Answers questions promptly and appropriately. Vital signs noted. HENT: Normocephalic, atraumatic. EYES: Conjunctiva pink, sclera white, no periorbital swelling. CHEST: Normal to inspection and without deformities. RESPIRATORY: Normal respiratory rate, trachea midline, airway patent. No stridor, nasal flaring or accessory muscle use. MUSCULOSKELETAL: Elongated nail to right 2nd toe, dry skin noted on tip of toe, nail thick, onychomycosis noted to nail. No surrounding erythema, ecchymosis, or severe tenderness. Patient has full range of motion of toe. Tenderness to palpation of the right sciatic region above buttock, positive straight leg test. Equal tone and mass bilaterally. EXTREMITIES: CMS intact. Pedal pulses 2+ and intact bilaterally. SKIN: Warm, dry, soft, appropriate color for ethnicity. No lesions, rashes, or wounds. NEURO: Alert and Oriented X 3. Good coordination. No ataxia, or sensory deficits, or cognitive issues. PSYCH: Appropriate affect and mood. <Leonard Sahu MD - Last Filed: 12/30/19 08:20> Initial Vital Signs Initial Vital Signs: Vital Signs Temperature 98.5 F 12/29/19 16:50 Pulse Rate 64 12/29/19 16:50 Respiratory Rate 16 12/29/19 16:50 Blood Pressure 159/66 H 12/29/19 16:50 Pulse Oximetry 95 12/29/19 16:50 Course <HAMZAH Marley - Last Filed: 12/29/19 19:27> Orders Ordered: ED Orders 12/29/19 17:09 XR toe RT min 2V Stat Vital Signs Vital signs: Vital Signs - 8 hr 12/29/19 16:50 12/29/19 18:26 Temperature 98.5 F Pulse Rate 64 78 Respiratory Rate 16 16 Blood Pressure 159/66 H 150/62 H Pulse Oximetry 95 98 <Leonard Sahu MD - Last Filed: 12/30/19 08:20> Orders Ordered: ED Orders 12/29/19 17:09 XR toe RT min 2V Stat Vital Signs Vital signs: Vital Signs - 8 hr 12/29/19 16:50 12/29/19 18:26 Temperature 98.5 F Pulse Rate 64 78 Respiratory Rate 16 16 Blood Pressure 159/66 H 150/62 H Pulse Oximetry 95 98 [facility] - Extremity Injury (Lower) <HAMZAH Marley - Last Filed: 12/29/19 19:27> Medical Records Attestation: I reviewed the patient's medical records. Lab Data Attestation: I reviewed the patient's lab results. Imaging Data Extremity x-ray #1: Radiologist's Impression: [address] [address] XRay Report Signed Patient: Janet Paris FMR#: [id number] : 5Acct:[id number] Age/Sex: 74 / FDate of Service: 12/29/19 Loc: ED Accession Number: [id number] Procedure: XR toe RT min 2V Ordering Provider: Varsha Hampton PROCEDURE: XR TOE RT MIN 2V INDICATIONS: R 2nd toe pain TECHNIQUE: 3 views of the 2nd toe(s) acquired. COMPARISON: None. FINDINGS: Bones: In this patient with this given history, scrutiny is given to 2nd toe. No focal 2nd toe abnormality can be seen on these plain films. No fractures or dislocations. Moderate hallux valgus deformity is seen, with associated focal degenerative change of the 1st metatarsophalangeal joint. Focal erosions are seen in the distal 1st metatarsal, with overhanging edges. Milder degenerative changes are seen elsewhere. Toe alignment abnormalities are seen. Soft tissues: No suspicious soft tissue densities. IMPRESSION: No focal 2nd toe abnormality can be seen. Likely gout of the 1st metatarsophalangeal joint. Moderate hallux valgus deformity. Dictated by: Elvis Michele M.D. on 12/29/2019 at 16:21 Approved by: Elvis Michele M.D. on 12/29/2019 at 16:23 [facility] Narrative Medical decision making narrative: 74-year-old female presents to the emergency department complaining right 2nd toe pain and nail deformity for the past few years, and continued sciatica pain to right side. I suspect patient's symptoms are most likely caused by onychomycosis due to appearance of toe, prolonged duration of symptoms over the past 2 years, and nail deformity. X-ray was performed to rule out any occult fractures, no fractures visualized on x-ray. Less likely infection due to lack of swelling, increased temp, erythema, and prolonged duration of symptoms over the past 2 years without significant worsening such as systemic symptoms or significant swelling. Patient was given antifungal cream and encouraged to follow up with Podiatry. Patient was recently treated for sciatica in the past 2 weeks, lumbar x-ray without deformity or hardware dislocations. Patient reports this pain is slowly getting better, she has a positive straight leg test and tenderness over the sciatic region. I suspect her continued pain is most likely caused by sciatica. This may be related to multiple surgeries. Additionally, she described ?nerve pain? which is also consistent with sciatica. Patient was given methocarbamol as she states previously muscle relaxers have helped with the pain. Less suspicion for fracture due to lack of fall and improvement of pain over the past week. Less suspicion for infection due to lack of systemic symptoms or redness. Patient was encouraged to follow up with her primary care provider for further treatment and management of her chronic pain. Return precautions were given for new or worsening symptoms. Patient agreed to plan of care verbalized understanding. Discharge Plan Departure Patient Disposition: Home Clinical Impression: Toenail fungus Sciatica Qualifiers: Laterality: right Qualified Code(s): M54.31 - Sciatica, right side Discharge Date/Time: 12/29/19 18:27 Instructions: Onychomycosis, DI for Sciatica Activity Restrictions/Additional Instructions: Thank you for entrusting me with your care today. As discussed, your x-ray is negative for any fractures, it appears that you have a fungus on her toe. I prescribed you a cream to apply. Please follow-up with the referred stock repairer in the next few weeks for re-evaluation. Additionally, I prescribed you a muscle relaxer for your sciatica. This medication can make you sleepy, do not drive with this. Please follow up with your primary care provider in 1-2 weeks for further evaluation if symptoms continue. Return emergency department for any new or worsening symptoms. Your prescriptions were sent to [facility] in [place]. Prescriptions: New methocarbamol 500 mg tablet 1,000 mg PO BID Qty: 20 RF: 0 efinaconazole 10 % solution with applicator 1 applictn TOP BEDTIME Qty: 8 RF: 0 No Action metoprolol succinate [Toprol XL] 25 mg tablet extended release 24 hr 25 mg PO BID Qty: 180 RF: 3 buprenorphine-naloxone 8-2 mg film 1 film SL DAILY RF: 0 omeprazole 20 mg capsule,delayed release(DR/EC) 20 mg PO QDAY Qty: 90 RF: 1 (DME) Disabled Parking Permit Qty: 1 RF: 0 nitroglycerin 0.4 mg tablet, sublingual See Rx Instructions .ROUTE .COMPLEX Qty: 25 RF: 1 triamcinolone acetonide 0.1 % ointment 1 applictn TOP BID Qty: 30 RF: 0 duloxetine 60 mg capsule,delayed release(DR/EC) 120 mg PO DAILY Qty: 60 RF: 5 Eliquis 5 mg tablet 5 mg PO BID RF: 0 losartan 100 mg tablet 100 mg PO DAILY Qty: 90 RF: 3 bupropion HCl 300 mg tablet extended release 24 hr 300 mg PO QAM Qty: 30 RF: 2 hydroxyzine HCl 25 mg tablet 25 mg PO BEDTIME Qty: 30 RF: 0 albuterol sulfate 90 mcg/actuation HFA aerosol inhaler 2 puff INHALATION Q6H PRN (Reason: shortness of breath) Qty: 8.5 RF: 1 furosemide 40 mg tablet 40 mg PO QAM RF: 0 pantoprazole 20 mg tablet,delayed release (DR/EC) 20 mg PO BEDTIME Qty: 14 RF: 0 lidocaine 5 % adhesive patch,medicated 1 patch TOP Q24H Qty: 30 RF: 0 prednisone 20 mg tablet 40 mg PO DAILY 4 Days Qty: 8 RF: 0 buprenorphine-naloxone [Suboxone] 8-2 mg film 1 film SL TID 5 Days Qty: 15 RF: 0 Referrals: Bill Silva MD [Primary Care Provider] -
--- NOTE | 2019-12-29 17:53 | PC.NURSE ---
toenails in general appear to be neglected. Patient toe nail is partially detached from nail bed and curve upward. Patient hit nail two years ago and has not been the same.
[2019-12-29 18:26] VITALS: BP 150/62; PULSE 78; RESP 16; O2SAT 98
== END 2019-12-29 18:27 | disposition home or self-care (01) ==
PROVIDERS: Emergency Provider Nurse Practitioner; PCP Family Medicine
DX: B35.1 Tinea unguium (principal); M54.31 Sciatica, right side
CPT/HCPCS: 73660; 99283

== ENCOUNTER → 2020-03-21 15:00 | Outpatient (CLI) | payer MEDICARE, MEDICAID, SELFPAY ==
--- NOTE | 2020-03-21 15:02 | DI.US.S_ITS ---
PROCEDURE: US PERIPH VENOUS LOW EXTREM RT INDICATIONS: PAIN AND SWELLING TECHNIQUE: Real-time imaging, as well as color and pulse Doppler interrogation, were performed of the lower extremity deep veins from the inguinal ligament to the popliteal fossa. COMPARISON: None. FINDINGS: The common femoral, femoral and popliteal veins are normally compressible, and free of intraluminal thrombus. Color and pulse Doppler demonstrate normal phasic intraluminal flow. There is normal augmentation response to distal compression maneuver. IMPRESSION: No deep venous thrombosis identified within the right lower extremity. Dictated by: Basilio Feldman [facility] Interpreted: Janet Chambers MD on 03/21/2020 at 16:03 Approved by: Janet Chambers M.D. on 03/21/2020 at 18:20
[2020-03-21 16:47] LABS: Alanine Aminotransferase 12 IU/L (<35); Albumin Globulin Ratio 1.3 (1.0-2.8); Alkaline Phosphatase 97 U/L (38-126); Aspartate Aminotransferase 20 IU/L (14-36); Bilirubin Total 0.3 mg/dL (0.2-1.3); Blood Urea Nitrogen 22 mg/dL (7-17); Calcium 9.2 mg/dL (8.4-10.2); Carbon Dioxide 27 mmol/L (22-32); Chloride 107 mmol/L (98-107); Estimated Glomerular Filt Rate 34.7 mL/min (>60); Globulin 3.1 g/dL (1.7-4.1); Glucose 93 mg/dL (80-110); HEMOLYSIS < 15 (0-50); Potassium 4.2 mmol/L (3.4-5.1); Sodium 141 mmol/L (137-145); Total Protein 7.1 g/dL (6.3-8.2); Uric Acid 5.7 mg/dL (2.5-6.2)
== END ==
PROVIDERS: PCP Family Medicine; Referring Provider Registered Nurse; Visit Provider Registered Nurse
DX: M79.604 Pain in right leg (principal); M25.571 Pain in right ankle and joints of right foot; M79.89 Other specified soft tissue disorders; I10 Essential (primary) hypertension
CPT/HCPCS: 36415; 80053; 84550; 93971

== ENCOUNTER → 2020-04-18 16:01 | Outpatient (CLI) | payer MEDICARE, MEDICAID, SELFPAY ==
[2020-04-18 17:13] LABS: Alanine Aminotransferase 16 IU/L (<35); Albumin 4.3 g/dL (3.5-5.0); Albumin Globulin Ratio 1.4 (1.0-2.8); Alkaline Phosphatase 112 U/L (38-126); Aspartate Aminotransferase 23 IU/L (14-36); BUN Creatinine Ratio 17.8 (6-22); Bilirubin Total 0.4 mg/dL (0.2-1.3); Blood Urea Nitrogen 26 mg/dL (7-17); Calcium 9.5 mg/dL (8.4-10.2); Carbon Dioxide 31 mmol/L (22-32); Chloride 104 mmol/L (98-107); Estimated Glomerular Filt Rate 34.9 mL/min (>60); Globulin 3.1 g/dL (1.7-4.1); Glucose 99 mg/dL (80-110); HEMOLYSIS < 15 (0-50); Potassium 4.5 mmol/L (3.4-5.1); Sodium 142 mmol/L (137-145); Total Protein 7.4 g/dL (6.3-8.2)
[2020-04-18 17:43] LABS: Appearance Urine UA CLEAR; Bilirubin Urine UA NEGATIVE (NEGATIVE); Color Urine UA YELLOW; Glucose Urine UA NEGATIVE (Negative); Ketones Urine UA NEGATIVE (NEGATIVE); Leukocyte Esterase Urine UA NEGATIVE (NEGATIVE); Nitrite Urine UA NEGATIVE (Negative); Occult Blood Urine UA TRACE-LYSED (Negative); Protein Urine UA NEGATIVE (Negative); Urobilinogen Urine UA 0.2 E.U./dL (0.2)
[2020-04-18 18:13] LABS: pH Urine UA 5.5 (4.5-8.0)
== END ==
PROVIDERS: PCP Family Medicine; Referring Provider Registered Nurse; Visit Provider Registered Nurse
DX: N18.3 Chronic kidney disease, stage 3 (moderate) (principal); R35.0 Frequency of micturition
CPT/HCPCS: 36415; 80053; 81003; 87086

== ENCOUNTER → 2020-04-22 13:50 | Outpatient (CLI) | payer MEDICARE, MEDICAID, SELFPAY | PROVIDERS: PCP Family Medicine; Referring Provider Registered Nurse; Visit Provider Registered Nurse | DX: R35.0 Frequency of micturition (principal) | CPT/HCPCS: 87086 ==

== ENCOUNTER → 2020-04-25 14:29 | Outpatient (CLI) | payer MEDICARE, MEDICAID, SELFPAY ==
[2020-04-25 15:32] LABS: Appearance Urine UA CLEAR; Bilirubin Urine UA NEGATIVE (NEGATIVE); Color Urine UA YELLOW; Glucose Urine UA NEGATIVE (Negative); Ketones Urine UA NEGATIVE (NEGATIVE); Leukocyte Esterase Urine UA TRACE (NEGATIVE); Nitrite Urine UA NEGATIVE (Negative); Occult Blood Urine UA TRACE-LYSED (Negative); Protein Urine UA NEGATIVE (Negative); Specific Gravity Urine UA 1.015 (1.000-1.035); Urobilinogen Urine UA 0.2 E.U./dL (0.2)
[2020-04-25 15:49] LABS: Amorphous Sediment Urine 1+; Bacteria Urine Occasional (0-1); RBC Urine 0-1/HPF (0-5/HPF); Squamous Epithelial Cell Urine 1-5 /HPF (0-5/HPF); WBC Urine 1-5/HPF (0-5/HPF); pH Urine UA 6.5 (4.5-8.0)
[2020-04-25 15:50] LABS: Culture Indicated Urine Specimen Cultured
== END ==
PROVIDERS: PCP Family Medicine; Referring Provider Registered Nurse; Visit Provider Registered Nurse
DX: R35.0 Frequency of micturition (principal)
CPT/HCPCS: 81001; 87077; 87086; 87186

== ENCOUNTER → 2020-06-10 14:48 | Outpatient (CLI) | payer MEDICARE, MEDICAID, SELFPAY ==
--- NOTE | 2020-06-10 | DI.ECHO.S_ITS ---
[place] [facility]---------+ [facility] +---------+ : : [address] : : : : [id number] : : : : Phone: [phone] Echocardiogram Report + + :Name: BERNARDA ROBBINS Study Date: 06/10/2020 Height: 64 in : :[facility] Weight: 216 lb : : Gender: Female BSA: 2.0 m2 : :: 1945 Age: 75 yrs BP: 155/93 mmHg: :Reason For Study: ILL-DEFINED HEART DISEASE : :Ordering Physician: DYLLAN, : :MAYRA Bergeron Performed By: Marcela Mccall : :Referring: MAYRA MIJARES : + + Interpretation Summary The left ventricle is normal in size and wall thickness. Left ventricular systolic function is normal without focal wall motion abnormalities. The ejection fraction is estimated to be 55-60%. Diastolic parameters suggest a relaxation abnormality of the left ventricle, consistent with probable normal filling pressures. The right ventricle is normal in size and function. Pulmonary artery pressures cannot be estimated because of the lack of a measurable TR jet velocity but the IVC suggests a CVP of around 3 mmHg. The left atrium is mildly dilated. Right atrial size is normal. There is no significant valvular heart disease. The ascending aorta is mildly enlarged. Procedure: A two-dimensional transthoracic echocardiogram with color flow and Doppler was performed. The study quality was technically adequate. Comparison is made with the echocardiogram of 04/10/2018. The heart rate ranged between 58-64 bpm during the study. Left Ventricle: The left ventricle is normal in size and wall thickness. Left ventricular systolic function is normal without focal wall motion abnormalities. The ejection fraction is estimated to be 55-60%. Diastolic parameters suggest a relaxation abnormality of the left ventricle, consistent with probable normal filling pressures. Right Ventricle: The right ventricle is normal in size and function. Atria: The left atrium is mildly dilated. Right atrial size is normal. There is no Doppler evidence for an interatrial shunt. Mitral Valve: The mitral valve is normal in structure and function. There is mild mitral annular calcification. There is trace mitral regurgitation. Aortic Valve: The aortic valve is trileaflet. The aortic valve is slightly calcified. There is mild aortic valve sclerosis. There is no aortic valve stenosis. There is trace aortic regurgitation. Tricuspid Valve: The tricuspid valve is normal in structure and function. There is trace tricuspid regurgitation. Pulmonary artery pressures cannot be estimated because of the lack of a measurable TR jet velocity but the IVC suggests a CVP of around 3 mmHg. Pulmonic Valve: The pulmonic valve is not well seen, but is grossly normal. There is no pulmonic valvular regurgitation. There is no significant valvular heart disease. Great Vessels: The aortic root is normal size. The ascending aorta is mildly enlarged. The IVC is of normal diameter and collapses greater than 50% with a sniff. This suggests a low right atrial pressure of 3 mm Hg. Pericardium/ Pleura There is no pericardial effusion. There is no pleural effusion. MMode/2D Measurements & Calculations LVIDd: 4.7 cm LVOT diam: 2.1 cm LVIDs: 3.3 cm Ao root diam: 3.5 cm FS: 29.8 % asc Aorta Diam: 3.9 cm EPSS: 0.96 cm Ao Arch Diam (Prox Trans): 2.6 cm IVSd: 0.97 cm LVPWd: 1.0 cm LV rojas. diameter/BSA (cm/m^2): 2.3 LV sys. diameter/BSA (cm/m^2): 1.6 LA A2 area: 22.2 cm2 RA long axis: 5.6 cm LA A4 area: 19.5 cm2 RA area: 18.8 cm2 LA length (vol): 5.4 cm RA vol: 53.6 ml LA vol: 67.7 ml RA : 26.5 ml/m2 LA vol index: 33.5 ml/m2 IVC diam: 1.7 cm RVD1 (basal): 3.2 cm TAPSE: 2.2 cm Doppler Measurements & Calculations Ao V2 max: 186.1 cm/sec LVOT Max Camacho: 101.8 cm/sec Ao V2 mean: 120.9 cm/sec LV V1 max P.2 mmHg Ao max P.8 mmHg LV V1 VTI: 23.4 cm Ao mean P.9 mmHg ROSSI(I,D): 1.9 cm2 Ao V2 VTI: 41.4 cm ROSSI(V,D): 1.8 cm2 sev ratio: 0.56 ROSSI indexed to BSA (cm^2/m^2): 0.93 MV E max camacho: 63.9 cm/sec PA V2 max: 102.2 cm/sec MV A max camacho: 109.1 cm/sec PA V2 mean: 69.4 cm/sec MV E/A: 0.59 PA mean P.2 mmHg Med Peak E' Camacho: 4.7 cm/sec PA pr(Accel): 35.3 mmHg E/E' med: 13.6 Lat Peak E' Camacho: 6.0 cm/sec E/E' lat: 10.7 E/e' average: 12.2 MV dec time: 0.35 sec SV(LVOT): 77.9 ml Reading Physician:04:55 PM
== END ==
PROVIDERS: PCP Family Medicine; Referring Provider Nurse Practitioner; Visit Provider Nurse Practitioner
DX: I35.8 Other nonrheumatic aortic valve disorders (principal); I77.89 Other specified disorders of arteries and arterioles; I51.89 Other ill-defined heart diseases
CPT/HCPCS: 93306

== ENCOUNTER → 2020-06-30 15:36 | Outpatient (CLI) | payer MEDICARE, MEDICAID, SELFPAY ==
[2020-06-30 16:32] LABS: Add Manual Diff / Slide Review NO; Basophils Absolute Auto 100 /uL (0-100); Basophils Percent Auto 1.3 % (0-2); Eosinophils Absolute Auto 300 /uL (0-450); Eosinophils Percent Auto 3.2 % (2-4); Hematocrit 36.7 % (36-46); Lymphocytes Absolute Auto 2100 /uL (1100-4500); Mean Corpuscular HGB Conc 32.7 % (30-36); Mean Corpuscular Hemoglobin 27.1 PG (26-34); Mean Corpuscular Volume 83.1 fL (80-100); Monocytes Absolute Auto 600 /uL (0-900); Monocytes Percent Auto 6.8 % (3-14); Neutrophils Absolute Auto 5600 /uL (1500-7000); Neutrophils Percent Auto 64.7 % (50-75); Platelet Count 256 X10^3/uL (150-400); Red Blood Cell Count 4.41 X10^6/uL (4.0-5.2); White Blood Cell Count 8.6 X10^3/uL (4.5-11.0)
[2020-06-30 16:55] LABS: BUN Creatinine Ratio 18.5 (6-22); Blood Urea Nitrogen 25 mg/dL (7-17); Calcium 9.3 mg/dL (8.4-10.2); Carbon Dioxide 28 mmol/L (22-32); Chloride 107 mmol/L (98-107); Estimated Glomerular Filt Rate 38.2 mL/min (>60); Glucose 96 mg/dL (80-110); HEMOLYSIS 15 (0-50); Potassium 4.5 mmol/L (3.4-5.1); Sodium 143 mmol/L (137-145)
== END ==
PROVIDERS: PCP Registered Nurse; Referring Provider Nurse Practitioner; Visit Provider Nurse Practitioner
DX: I10 Essential (primary) hypertension (principal)
CPT/HCPCS: 36415; 80048; 85025

== ENCOUNTER → 2020-07-14 15:37 | Outpatient (CLI) | payer MEDICARE, MEDICAID, SELFPAY ==
[2020-07-14 18:33] LABS: COVID19 -Nasal RAPID Negative (Negative)
== END ==
PROVIDERS: PCP Family Medicine; Visit Provider Physician Assistant
DX: Z11.59 Encounter for screening for other viral diseases (principal)
CPT/HCPCS: 87635

== ENCOUNTER → 2020-07-17 15:12 | Outpatient (CLI) | payer MEDICARE, MEDICAID, SELFPAY ==
--- NOTE | 2020-07-23 09:11 | PM.PFT.1 ---
Pulmonary Function Test Referral & Results Date Patient Seen: 07/17/20 Requesting provider: Colt Ross Indication: Shortness of breath Results: The spirometry demonstrates an FVC of 2.34 L which is 83% of predicted. The FEV1 was measured at 1.73 L which is 82% of predicted. The FEV1/FVC ratio was 74 which is 98% of predicted. Following the administration of bronchodilator there was of 45% improvement in FEF 25-75%. Lung volumes show an SVC of 2.33 L which is 84% of predicted. The diffusing capacity was measured at 17.27 which is 71% of predicted. No hemoglobin value was provided, so no correction for potential anemia could be made, if appropriate. The maximum voluntary ventilation was reduced Interpretation: This study demonstrates probably very mild obstructive lung disease based on minimal reduction FEV1 as well as an improvement in small airway flow following bronchodilator based on the improvement in FEF 25-75% as well as shape of the flow volume loop which suggests obstructive lung disease There may also be very minimal restrictive lung disease based on a very slight reduction SVC as above There is also minimal reduction in diffusing capacity as above, suggesting some element of disease at the capillary alveolar level as well.
== END ==
PROVIDERS: PCP Registered Nurse; Referring Provider Registered Nurse; Visit Provider Registered Nurse
DX: R06.02 Shortness of breath (principal); Z87.891 Personal history of nicotine dependence
CPT/HCPCS: 94060; 94726; 94729

== ENCOUNTER → 2020-10-04 11:06 | Outpatient (CLI) | payer MEDICARE, MEDICAID, SELFPAY ==
[2020-10-04 12:31] LABS: COVID19 -Nasal RAPID Negative (Negative)
== END ==
PROVIDERS: PCP Registered Nurse; Visit Provider Physician Assistant
DX: Z20.822 Contact with and (suspected) exposure to COVID-19 (principal)
CPT/HCPCS: 87635; C9803

== ENCOUNTER → 2020-11-01 11:01 | Outpatient (CLI) | payer MEDICARE, MEDICAID, SELFPAY ==
[2020-11-01 12:45] LABS: COVID19 -Nasal RAPID Negative (Negative)
== END ==
PROVIDERS: PCP Registered Nurse; Visit Provider Student in an Organized Health Care Education/Training Program
DX: Z01.812 Encounter for preprocedural laboratory examination (principal); Z20.822 Contact with and (suspected) exposure to COVID-19
CPT/HCPCS: 87635; C9803

== ENCOUNTER → 2020-11-03 09:03 | Outpatient (CLI) | payer MEDICARE, MEDICAID, SELFPAY ==
--- NOTE | 2020-11-03 18:30 | DI.NM.S_ITS ---
DATE OF SERVICE: 11/03/2020 PROCEDURE PERFORMED: Pharmacologic vasodilator stress and rest myocardial perfusion imaging with gating to assess ejection fraction and regional wall motion. ORDERING PROVIDER: HAMZAH Griffiths. INDICATIONS: The patient is a 75-year-old female with COPD and paroxysmal atrial fibrillation with a history of diastolic dysfunction who presents with progressive dyspnea. PHARMACOLOGIC STRESS: Per protocol, 0.4 mg of regadenoson was infused with a normal hemodynamic response. She developed mild dyspnea but no chest discomfort. Her resting ECG is normal and there are no significant ST-segment shifts. She had occasional isolated PVCs and PACs, but no sustained or complex arrhythmias. Per protocol, 25.3 millicuries of technetium-99m Myoview was injected and the patient was imaged 15 minutes later using a gated SPECT acquisition protocol. Earlier in the day while at rest, she had been injected with 14.1 millicuries of technetium-99m Myoview and imaged 30 minutes later, again using a gated SPECT acquisition protocol. FINDINGS: 1. Raw data: There is fair myocardial tracer uptake with mild breast shadows noted. Lung/heart ratio is normal at 0.29 with a normal TID ratio of 1.16. 2. Quantitated gated SPECT. The post-stress ejection fraction is estimated at 69% without any focal wall motion abnormality although image quality is poor. The resting ejection fraction is 68% with a resting end-diastolic volume of 117 mL. 3. Myocardial perfusion imaging: Post-stress supine images shows a normal myocardial perfusion pattern without any perfusion defects. Prone imaging was unable to be performed because of multiple back symptoms. Her resting images show an identical perfusion pattern without any areas of improvement. IMPRESSION: 1. Normal myocardial perfusion study. 2. No evidence for myocardial ischemia or previous myocardial infarction. 3. Normal left ventricular systolic function without any regional wall motion abnormality. Left ventricular volumes are at the upper limits of normal. 4. No angina or ECG evidence with pharmacologic vasodilator stress. 5. Compared to her previous myocardial perfusion imaging study from 10/06/2016, an identical perfusion pattern was seen although the previously identified breast attenuation artifact is less prominent. Her previous ejection fraction was 73% with a resting end-diastolic volume of 102 mL, suggesting possible slight interval enlargement. Otherwise, there has been no significant change. Janet Paris - WILLAM/kodi/elba doc#: [id number]/job#: [id number] dd: 11/03/2020 17:04:00 dt: 11/03/2020 18:16:00 DICTATING MD/COPIES TO: Parish Perez MD; HAMZAH Griffiths; Virgil Rico MD COPIES MNE: GERI; ;
== END ==
PROVIDERS: PCP Registered Nurse; Referring Provider Nurse Practitioner; Visit Provider Nurse Practitioner
DX: R06.00 Dyspnea, unspecified (principal); I48.0 Paroxysmal atrial fibrillation; J44.9 Chronic obstructive pulmonary disease, unspecified
CPT/HCPCS: 78452; 93017; A9502; J2785

== ENCOUNTER → 2020-11-14 12:57 | Outpatient (CLI) | payer MEDICARE, MEDICAID, SELFPAY ==
[2020-11-14] MEDS: COVID-19 VACC, Ad26(JANSSEN)/PF 0.5 ML IM (13:07)
== END ==
PROVIDERS: PCP Registered Nurse; Visit Provider Internal Medicine
DX: Z23 Encounter for immunization (principal)
CPT/HCPCS: 0031A; 91303

== ENCOUNTER → 2020-11-24 10:00 | Outpatient (CLI) | payer MEDICARE, MEDICAID, SELFPAY ==
[2020-11-24 12:09] LABS: BUN Creatinine Ratio 17.1 (6-22); Blood Urea Nitrogen 24 mg/dL (7-17); Calcium 10.4 mg/dL (8.4-10.2); Carbon Dioxide 28 mmol/L (22-32); Chloride 107 mmol/L (98-107); Cholesterol 146 mg/dL (140-199); Estimated Glomerular Filt Rate 36.7 mL/min (>60); Glucose 105 mg/dL (80-110); HDL Cholesterol 41 mg/dL (40-60); HEMOLYSIS < 15 (0-50); LDL Cholesterol Calculated 64 mg/dL (<100); Sodium 143 mmol/L (137-145); Triglycerides 206 mg/dL (35-150)
[2020-11-24 12:10] LABS: Potassium 5.8 mmol/L (3.4-5.1)
== END ==
PROVIDERS: PCP Registered Nurse; Referring Provider Nurse Practitioner; Visit Provider Nurse Practitioner
DX: I10 Essential (primary) hypertension (principal); R06.00 Dyspnea, unspecified
CPT/HCPCS: 36415; 80048; 80061

== ENCOUNTER → 2020-12-25 10:38 | Outpatient (CLI) | payer MEDICARE, MEDICAID, SELFPAY ==
[2020-12-25 12:08] LABS: BUN Creatinine Ratio 20.7 (6-22); Blood Urea Nitrogen 31 mg/dL (7-17); Calcium 9.7 mg/dL (8.4-10.2); Carbon Dioxide 22 mmol/L (22-32); Chloride 109 mmol/L (98-107); Estimated Glomerular Filt Rate 33.9 mL/min (>60); Glucose 98 mg/dL (80-110); HEMOLYSIS < 15 (0-50); Potassium 4.4 mmol/L (3.4-5.1); Sodium 142 mmol/L (137-145)
== END ==
PROVIDERS: PCP Registered Nurse; Referring Provider Nurse Practitioner; Visit Provider Nurse Practitioner
DX: I10 Essential (primary) hypertension (principal)
CPT/HCPCS: 36415; 80048

== ENCOUNTER → 2021-01-20 15:35 | Outpatient (CLI) | payer MEDICARE, MEDICAID, SELFPAY ==
[2021-01-20 17:02] LABS: BUN Creatinine Ratio 20.9 (6-22); Blood Urea Nitrogen 28 mg/dL (7-17); Calcium 9.2 mg/dL (8.4-10.2); Carbon Dioxide 27 mmol/L (22-32); Chloride 109 mmol/L (98-107); Estimated Glomerular Filt Rate 38.5 mL/min (>60); Glucose 109 mg/dL (80-110); HEMOLYSIS < 15 (0-50); Potassium 3.9 mmol/L (3.4-5.1); Sodium 145 mmol/L (137-145)
== END ==
PROVIDERS: PCP Registered Nurse; Referring Provider Nurse Practitioner; Visit Provider Nurse Practitioner
DX: I10 Essential (primary) hypertension (principal); N18.32 Chronic kidney disease, stage 3b
CPT/HCPCS: 36415; 80048

== ENCOUNTER → 2021-02-06 16:06 | Outpatient (CLI) | payer MEDICARE, MEDICAID, SELFPAY ==
[2021-02-06 18:01] LABS: Appearance Urine UA SL CLOUDY; Bilirubin Urine UA NEGATIVE (NEGATIVE); Color Urine UA YELLOW; Glucose Urine UA NEGATIVE (Negative); Ketones Urine UA NEGATIVE (NEGATIVE); Leukocyte Esterase Urine UA TRACE (NEGATIVE); Nitrite Urine UA NEGATIVE (Negative); Occult Blood Urine UA 1+ (Negative); Protein Urine UA TRACE (Negative); Specific Gravity Urine UA 1.025 (1.000-1.035); Urobilinogen Urine UA 0.2 E.U./dL (0.2)
[2021-02-06 18:14] LABS: RBC Urine 1-5/HPF (0-5/HPF); Squamous Epithelial Cell Urine 1-5 /HPF (0-5/HPF); Transitional Epi Cells Urine 1-5/HPF (0-5/HPF)
[2021-02-06 18:15] LABS: Bacteria Urine Occasional (0-1); Culture Indicated Urine Specimen Cultured; Hyaline Casts Urine 5-10/LPF; WBC Urine 5-10/HPF (0-5/HPF)
[2021-02-06 20:31] LABS: HEMOLYSIS < 15 (0-50); Potassium 4.3 mmol/L (3.4-5.1)
[2021-02-06 20:32] LABS: Alanine Aminotransferase 16 IU/L (<35); Albumin 4.3 g/dL (3.5-5.0); Albumin Globulin Ratio 1.2 (1.0-2.8); Alkaline Phosphatase 122 U/L (38-126); Aspartate Aminotransferase 23 IU/L (14-36); BUN Creatinine Ratio 16.9 (6-22); Bilirubin Total 0.3 mg/dL (0.2-1.3); Blood Urea Nitrogen 26 mg/dL (7-17); Calcium 9.2 mg/dL (8.4-10.2); Carbon Dioxide 26 mmol/L (22-32); Chloride 104 mmol/L (98-107); Estimated Glomerular Filt Rate 32.8 mL/min (>60); Globulin 3.5 g/dL (1.7-4.1); Glucose 78 mg/dL (80-110); Sodium 140 mmol/L (137-145); Total Protein 7.8 g/dL (6.3-8.2)
== END ==
PROVIDERS: PCP Registered Nurse; Referring Provider Registered Nurse; Visit Provider Registered Nurse
DX: N39.0 Urinary tract infection, site not specified (principal); R35.0 Frequency of micturition; R82.2 Biliuria
CPT/HCPCS: 36415; 80053; 81003; 81015; 87086

== ENCOUNTER → 2021-03-03 15:13 | Outpatient (CLI) | payer MEDICARE, MEDICAID, SELFPAY ==
--- NOTE | 2021-03-03 15:18 | DI.RAD.S_ITS ---
PROCEDURE: XR CHEST 2V INDICATIONS: sob TECHNIQUE: 2 views of the chest were acquired. COMPARISON: Located Within [facility], , XR CHEST 2V, 03/24/2018, 19:06. Located Within [facility], , CHEST 2 VIEW, 12/11/2015, 14:57. FINDINGS: Surgical changes and devices: Prior spine fusion surgery below the chest level noted on the lateral view.. Lungs and pleura: Lungs are clear. No pleural effusions or pneumothorax. Mediastinum: Mediastinal contours are normal. Heart size is normal. Bones and chest wall: No suspicious bony abnormalities. Soft tissues appear unremarkable. IMPRESSION: No pneumonia found, source of shortness of breath is not seen. No exchange specialist time. Dictated by: Kobe Delgado M.D. on 03/03/2021 at 15:47 Approved by: Kobe Delgado M.D. on 03/03/2021 at 15:48
== END ==
PROVIDERS: PCP Registered Nurse; Referring Provider Registered Nurse; Visit Provider Registered Nurse
DX: R06.02 Shortness of breath (principal); J44.9 Chronic obstructive pulmonary disease, unspecified
CPT/HCPCS: 71046

== ENCOUNTER 2021-04-06 18:56 | Emergency (ER) | payer MEDICARE, MEDICAID, SELFPAY ==
[2021-04-06 19:16] VITALS: BP 171/92; PULSE 76; RESP 12; TEMP 36.7; O2SAT 91; BMI 34.1
== END 2021-04-06 20:53 | disposition left against medical advice (07) ==
PROVIDERS: Emergency Provider Emergency Medicine; PCP Registered Nurse
CPT/HCPCS: 87086

== ENCOUNTER → 2021-04-06 19:38 | Outpatient (CLI) | payer MEDICARE, MEDICAID, SELFPAY | PROVIDERS: PCP Registered Nurse; Visit Provider Physician Assistant | DX: R35.0 Frequency of micturition (principal); R39.15 Urgency of urination | CPT/HCPCS: 87086 ==

== ENCOUNTER 2021-05-19 15:15 | Outpatient (RCR) | payer MEDICARE, MEDICAID, SELFPAY ==
--- NOTE | 2021-04-21 12:50 | PT.OIE ---
Current Diagnoses Other chronic pain (04/21/21) Low back pain (04/21/21) Past Medical History (Last Reviewed 03/03/21 @ 23:43 by HAMZAH Miranda) Abnormal Pap smear of cervix (~1956) Anemia Ankle pain Anxiety Arachnoiditis Atrial fibrillation Bilirubin in urine Cataracts, bilateral Cervical spine disease Chronic back pain COPD (chronic obstructive pulmonary disease) Cystic fibrosis (~1956) Cystic fibrosis (~1956) Degenerative joint disease (DJD) of lumbar spine Depression Fibromyalgia Fibromyalgia Foot pain GERD (gastroesophageal reflux disease) GI bleeding Heavy menstrual period History of back surgery History of neck surgery Hypertension Kidney stones Osteoporosis Peripheral neuropathy Pneumonia Post traumatic stress disorder (PTSD) Raynaud's disease without gangrene Restless leg syndrome Rheumatoid arthritis Right leg injury Scoliosis Severe 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, without psychotic features (07/05/16) Skin cancer (~1996) Stroke UTI (urinary tract infection) Venous stasis Vertigo (~1968) Past Surgical History (Last Reviewed 03/03/21 @ 23:43 by HAMZAH Miranda) History of back surgery History of hip replacement History of knee replacement (11/29/16) History of neck surgery S/P total abdominal hysterectomy and bilateral salpingo-oophorectomy Status post appendectomy Status post bunionectomy (08/11/15) Status post cholecystectomy Status post tonsillectomy and adenoidectomy Status post tubal ligation Visit Care Team Role Provider Type HAMZAH Miranda Attending Provider Advanced Trench Shovel Operator Primary Care Provider Referring Provider Specialty: Medical Address: [address] [place] [address], [facility] Email: [email or web address] Physical Therapy Initial Evaluation PT-OP-A Visit Information Start: 04/21/21 12:28 Freq: Status: Active Protocol: Document 04/21/21 12:30 OF (Rec: 04/21/21 12:48 OF [id number]) Out-Patient Physical Therapy Visit Information Visit Information Visit Type Initial Evaluation Visit Start Time 11:15 Visit Stop Time 12:01 Total Visit Minutes 46 Visit Number 1 Evaluation Information Evaluation Date 04/21/21 PT-OP-B Current Condition Start: 04/21/21 12:28 Freq: Status: Active Protocol: Document 04/21/21 12:30 OF (Rec: 04/21/21 12:48 OF [id number]) Current Condition History of Current Condition Onset Date 1964 History of Current Condition Pt states she has had 17 back surgeries since 1964. 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 Pt reports arthritis, HTN, CHF, COPD, fibromyalgia, hearing problems , CKD, neck [ain, neuropathy, osteopenia, pulmonary edema, SOB, varicose veins as PMHX. Prior Treatments and Tests prior therapy Treatment Goals Patient/Caregiver Goals get my legs stronger, help my back Prior Functional Status Baseline Function- ADL's Independent Baseline Function- Mobility Independent Current Functional Impairments (Reported) Functional Limitations- Mobility/Gait using 4ww x5 yrs PT-OP-C Subjective Start: 04/21/21 12:28 Freq: Status: Active Protocol: Document 04/21/21 12:30 OF (Rec: 04/21/21 12:48 OF [id number]) OP-PT Subjective Patient Comments Patient Comments Pt states she would like to become more independent at home, improve endurance with walking Patient Reported Progress Same OP-PT Pain Assessment Pain Assessment Grid Paper Pain Assessment Grid Completed No: Pt states i wanted to just fill in the whole thing She denies pain at re PT-OP-E Functional Tests Start: 04/21/21 12:28 Freq: Status: Active Protocol: Document 04/21/21 12:30 OF (Rec: 04/21/21 12:48 OF [id number]) Functional Tests 2 Minute Walk Test Distance 300ft Device Used 4ww Comments only completed 3min prior to SOB PT-OP-G Mobility & Gait Start: 04/21/21 12:28 Freq: Status: Active Protocol: Document 04/21/21 12:30 OF (Rec: 04/21/21 12:48 OF [id number]) OP Gait Assessment Gait Gait Assistance Required: Standby Assistance Distance (Feet) 300 Able to Maintain Weight Bearing Status Yes During Gait Assistive Devices Assistive Device 4 Wheeled Walker Gait Deviations General Gait Pattern Decreased Stride Length, Decreased Feet Clearance, Flexed Trunk Factors Limiting Gait Function Factors Limiting Gait Function Decreased Strength,Limited Range of Motion PT-OP-H Neuro Start: 04/21/21 12:28 Freq: Status: Active Protocol: Document 04/21/21 12:30 OF (Rec: 04/21/21 12:48 OF [id number]) Sensation Evaluation Gross Sensation Gross Sensation WNL Comments Summary Comments pt reports numbness over all toes, intermittent PT-OP-Q Treatments Start: 04/21/21 12:28 Freq: Status: Active Protocol: Document 04/21/21 12:30 OF (Rec: 04/21/21 12:48 OF [id number]) Therapeutic Exercises Sitting Exercises LAQ Side bilateral Reps/Minutes 3x10 Comments cues for eccentric control and full ROM Standing Exercises minisquats Side bilateral Reps/Minutes 1x15 Comments cues for hip ext, weightshifting Self-Care/Home Management Treatment Education Patient Education Body Mechanics,Fall Risk,Home Exercise Program PT-OP-T Assessment and Plan Start: 04/21/21 12:28 Freq: Status: Active Protocol: Document 04/21/21 12:30 OF (Rec: 04/21/21 12:48 OF [id number]) Physical Therapy Assessment Rehab Potential Rehabilitation Potential Good Evaluation Complexity Number of Personal Factors/Comorbidities 3 or More Number of Body Systems Impaired 1-2 Clinical Presentation at Evaluation Stable Impairments Impairments Activity Tolerance,Functional Mobility,Gait,Pain,Soft Tissue Mobility,Strength Goals 3 Impairment poor endurance Short Term Goal (STG) Pt will AMB 400ft in 6min STG Duration 2weeks Correction Goal (LTG) Pt will AMB >650ft in 6min to demonstrate a lower risk for hospitalization LTG Duration 6 weeks 2 Impairment LE weakness Impairment Pt is unable to complete sit to stand without UE assist Short Term Goal (STG) Pt will perform sit to stand x5 in 30sec without UE assist to demo improved LE strength STG Duration 2 weeks Correction Goal (LTG) Pt will perform sit to stand x 10 to demo improved community mobility LTG Duration 6 weeks 1 Impairment pt lacks HEP Short Term Goal (STG) Pt will be I with HEP to improve activity levels at home Assessment Summary Assessment Janet is a pleasant 76 yo female presenting with multiple complaints. She states nothing bothers her today, but in general my neck , back, legs, and breathing bother me. She is anxious with assessment and limited in attempting new activities. She is agreeable to HEP for hourly AMB, LAQ< minisquats. She has poor endurance as her 6MWT is <300ft. She has weak LE and will require skilled therapy to improve LE strength and increase I with ADL and AMB. Physical Therapy Plan Frequency and Duration Frequency of Treatment 1-2x/week Duration of Treatment 6 weeks Plan of Care Start Date 04/21/21 Plan of Care End Date 06/02/21 Therapeutic Interventions Therapeutic Interventions Gait Training,Home Exercise Program,Manual Therapy, Neuromuscular Re-education, Therapeutic Exercises Next Visit Focus/Plan Next Note Type Treatment Note Next Visit Plan assess HEP response. Progress LE strength, add leg press, gait for endurance
--- NOTE | 2021-04-21 12:50 | PT.OPPOC ---
Physical, Occupational & Speech Therapy At [facility] Current Diagnoses Other chronic pain (04/21/21) Low back pain (04/21/21) Visit Care Team Role Provider Type HAMZAH Miranda Attending Provider Advanced Boatwright Primary Care Provider Referring Provider Specialty: Medical Address: [address] [place] [address], [facility] Email: [email or web address] Plan Of Care PT-OP-T Assessment and Plan Start: 04/21/21 12:28 Freq: Status: Active Protocol: Document 04/21/21 12:30 OF (Rec: 04/21/21 12:48 OF [id number]) Physical Therapy Assessment Rehab Potential Rehabilitation Potential Good Evaluation Complexity Number of Personal Factors/Comorbidities 3 or More Number of Body Systems Impaired 1-2 Clinical Presentation at Evaluation Stable Impairments Impairments Activity Tolerance,Functional Mobility,Gait,Pain,Soft Tissue Mobility,Strength Goals 3 Impairment poor endurance Short Term Goal (STG) Pt will AMB 400ft in 6min STG Duration 2weeks Care Home Goal (LTG) Pt will AMB >650ft in 6min to demonstrate a lower risk for hospitalization LTG Duration 6 weeks 2 Impairment LE weakness Impairment Pt is unable to complete sit to stand without UE assist Short Term Goal (STG) Pt will perform sit to stand x5 in 30sec without UE assist to demo improved LE strength STG Duration 2 weeks Equipment Sterilizer Goal (LTG) Pt will perform sit to stand x 10 to demo improved community mobility LTG Duration 6 weeks 1 Impairment pt lacks HEP Short Term Goal (STG) Pt will be I with HEP to improve activity levels at home Assessment Summary Assessment Janet is a pleasant 76 yo female presenting with multiple complaints. She states nothing bothers her today, but in general my neck , back, legs, and breathing bother me. She is anxious with assessment and limited in attempting new activities. She is agreeable to HEP for hourly AMB, LAQ< minisquats. She has poor endurance as her 6MWT is <300ft. She has weak LE and will require skilled therapy to improve LE strength and increase I with ADL and AMB. Physical Therapy Plan Frequency and Duration Frequency of Treatment 1-2x/week Duration of Treatment 6 weeks Plan of Care Start Date 04/21/21 Plan of Care End Date 06/02/21 Therapeutic Interventions Therapeutic Interventions Gait Training,Home Exercise Program,Manual Therapy, Neuromuscular Re-education, Therapeutic Exercises Next Visit Focus/Plan Next Note Type Treatment Note Next Visit Plan assess HEP response. Progress LE strength, add leg press, gait for endurance Plan of Care Dates Plan of Care Start Date 04/21/21 Plan of Care End Date 06/02/21 Electronically Signed by: Lyle Trujillo, PT 04/21/21 [id number] Please Sign and Return: I have reviewed this Plan of Care and certify that the skilled therapy services above are required to meet the patient?s needs. Physician Signature Date Printed Name and Credentials Clinical Instructor Signature Printed Name and Credentials
--- NOTE | 2021-04-24 15:29 | PT.OTN ---
Current Diagnoses Other chronic pain (04/24/21) Low back pain (04/24/21) Physical Therapy Treatment Note PT-OP-A Visit Information Start: 04/21/21 12:28 Freq: Status: Active Protocol: Document 04/24/21 13:40 OF (Rec: 04/24/21 15:29 OF [id number]) Out-Patient Physical Therapy Visit Information Visit Information Visit Type Treatment Note Visit Start Time 13:00 Visit Stop Time 13:40 Total Visit Minutes 40 Visit Number 2 Evaluation Information Evaluation Date 04/21/21 PT-OP-B Current Condition Start: 04/21/21 12:28 Freq: Status: Active Protocol: Document 04/21/21 12:30 OF (Rec: 04/21/21 12:48 OF [id number]) Current Condition History of Current Condition Onset Date 1964 History of Current Condition Pt states she has had 17 back surgeries since 1964. 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 Pt reports arthritis, HTN, CHF, COPD, fibromyalgia, hearing problems , CKD, neck [ain, neuropathy, osteopenia, pulmonary edema, SOB, varicose veins as PMHX. Prior Treatments and Tests prior therapy Treatment Goals Patient/Caregiver Goals get my legs stronger, help my back Prior Functional Status Baseline Function- ADL's Independent Baseline Function- Mobility Independent Current Functional Impairments (Reported) Functional Limitations- Mobility/Gait using 4ww x5 yrs PT-OP-C Subjective Start: 04/21/21 12:28 Freq: Status: Active Protocol: Document 04/24/21 13:40 OF (Rec: 04/24/21 15:29 OF [id number]) OP-PT Subjective Patient Comments Patient Comments pt and dtr in law report SOB and upcoming chest xray tomorrow Patient Reported Progress Improving OP-PT Pain Assessment Pain Assessment Grid Paper Pain Assessment Grid Completed No PT-OP-E Functional Tests Start: 04/21/21 12:28 Freq: Status: Active Protocol: Document 04/21/21 12:30 OF (Rec: 04/21/21 12:48 OF [id number]) Functional Tests 2 Minute Walk Test Distance 300ft Device Used 4ww Comments only completed 3min prior to SOB PT-OP-G Mobility & Gait Start: 04/21/21 12:28 Freq: Status: Active Protocol: Document 04/21/21 12:30 OF (Rec: 04/21/21 12:48 OF [id number]) OP Gait Assessment Gait Gait Assistance Required: Standby Assistance Distance (Feet) 300 Able to Maintain Weight Bearing Status Yes During Gait Assistive Devices Assistive Device 4 Wheeled Walker Gait Deviations General Gait Pattern Decreased Stride Length, Decreased Feet Clearance, Flexed Trunk Factors Limiting Gait Function Factors Limiting Gait Function Decreased Strength,Limited Range of Motion PT-OP-H Neuro Start: 04/21/21 12:28 Freq: Status: Active Protocol: Document 04/21/21 12:30 OF (Rec: 04/21/21 12:48 OF [id number]) Sensation Evaluation Gross Sensation Gross Sensation WNL Comments Summary Comments pt reports numbness over all toes, intermittent PT-OP-Q Treatments Start: 04/21/21 12:28 Freq: Status: Active Protocol: Document 04/24/21 13:40 OF (Rec: 04/24/21 15:29 OF [id number]) Cardio Equipment Recumbent Bicycle Duration (Minutes) 10 Other cues for pursed lip breathing Therapeutic Exercises Sitting Exercises LAQ Side bilateral Reps/Minutes 3x10 Comments cues for eccentric control and full ROM Standing Exercises marching Side bilateral Reps/Minutes [id number] minisquats Side bilateral Reps/Minutes 3x10 Comments cues for hip ext, weightshifting Gait Training Gait Activity 4ww Level of Assistance MIN Treatment Focus improved pushoff, hip extension to increase gait speed Neuro Re-Education Treatment Other Activities pursed lip breathing Details [id number] Comments demo and tactile cues for pursed lip breathing Self-Care/Home Management Treatment Education Patient Education Home Exercise Program PT-OP-T Assessment and Plan Start: 04/21/21 12:28 Freq: Status: Active Protocol: Document 04/24/21 13:40 OF (Rec: 04/24/21 15:29 OF [id number]) Physical Therapy Assessment Rehab Potential Rehabilitation Potential Good Evaluation Complexity Number of Personal Factors/Comorbidities 1-2 Number of Body Systems Impaired 1-2 Clinical Presentation at Evaluation Stable Impairments Impairments Activity Tolerance,Functional Activities,Strength Goals 3 Impairment poor endurance Short Term Goal (STG) Pt will AMB 400ft in 6min STG Duration 2weeks Nursing Home Goal (LTG) Pt will AMB >650ft in 6min to demonstrate a lower risk for hospitalization LTG Duration 6 weeks 2 Impairment LE weakness Impairment Pt is unable to complete sit to stand without UE assist Short Term Goal (STG) Pt will perform sit to stand x5 in 30sec without UE assist to demo improved LE strength STG Duration 2 weeks Nursing Home Goal (LTG) Pt will perform sit to stand x 10 to demo improved community mobility LTG Duration 6 weeks 1 Impairment pt lacks HEP Short Term Goal (STG) Pt will be I with HEP to improve activity levels at home Progress Towards Goals Progress Towards Goals Progressing Toward Goals Assessment Summary Assessment pt limited by SOB with activity. Fatigue with AMB and rest required > activity today Physical Therapy Plan Frequency and Duration Duration of Treatment 6 weeks Plan of Care Start Date 04/21/21 Plan of Care End Date 06/02/21 Therapeutic Interventions Therapeutic Interventions Neuromuscular Re-education, Therapeutic Activities, Therapeutic Exercises Next Visit Focus/Plan Next Note Type Treatment Note Next Visit Plan progress LE strengthening, increase active time
--- NOTE | 2021-04-27 13:50 | PT.OTN ---
Current Diagnoses Other chronic pain (04/27/21) Low back pain (04/27/21) Physical Therapy Treatment Note PT-OP-A Visit Information Start: 04/21/21 12:28 Freq: Status: Active Protocol: Document 04/27/21 13:45 OF (Rec: 04/27/21 13:50 OF [id number]) Out-Patient Physical Therapy Visit Information Visit Information Visit Type Treatment Note Visit Start Time 13:01 Visit Stop Time 13:44 Total Visit Minutes 43 Visit Number 3 Evaluation Information Evaluation Date 04/21/21 PT-OP-B Current Condition Start: 04/21/21 12:28 Freq: Status: Active Protocol: Document 04/21/21 12:30 OF (Rec: 04/21/21 12:48 OF [id number]) Current Condition History of Current Condition Onset Date 1964 History of Current Condition Pt states she has had 17 back surgeries since 1964. 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 Pt reports arthritis, HTN, CHF, COPD, fibromyalgia, hearing problems , CKD, neck [ain, neuropathy, osteopenia, pulmonary edema, SOB, varicose veins as PMHX. Prior Treatments and Tests prior therapy Treatment Goals Patient/Caregiver Goals get my legs stronger, help my back Prior Functional Status Baseline Function- ADL's Independent Baseline Function- Mobility Independent Current Functional Impairments (Reported) Functional Limitations- Mobility/Gait using 4ww x5 yrs PT-OP-C Subjective Start: 04/21/21 12:28 Freq: Status: Active Protocol: Document 04/27/21 13:45 OF (Rec: 04/27/21 13:50 OF [id number]) OP-PT Subjective Patient Comments Patient Comments pt reports difficulty with endurance during ADL, back pain 2 nights prior Patient Reported Progress Improving OP-PT Pain Assessment Pain Assessment Grid Paper Pain Assessment Grid Completed pt denies pain today PT-OP-E Functional Tests Start: 04/21/21 12:28 Freq: Status: Active Protocol: Document 04/21/21 12:30 OF (Rec: 04/21/21 12:48 OF [id number]) Functional Tests 2 Minute Walk Test Distance 300ft Device Used 4ww Comments only completed 3min prior to SOB PT-OP-G Mobility & Gait Start: 04/21/21 12:28 Freq: Status: Active Protocol: Document 04/21/21 12:30 OF (Rec: 04/21/21 12:48 OF [id number]) OP Gait Assessment Gait Gait Assistance Required: Standby Assistance Distance (Feet) 300 Able to Maintain Weight Bearing Status Yes During Gait Assistive Devices Assistive Device 4 Wheeled Walker Gait Deviations General Gait Pattern Decreased Stride Length, Decreased Feet Clearance, Flexed Trunk Factors Limiting Gait Function Factors Limiting Gait Function Decreased Strength,Limited Range of Motion PT-OP-H Neuro Start: 04/21/21 12:28 Freq: Status: Active Protocol: Document 04/21/21 12:30 OF (Rec: 04/21/21 12:48 OF [id number]) Sensation Evaluation Gross Sensation Gross Sensation WNL Comments Summary Comments pt reports numbness over all toes, intermittent PT-OP-Q Treatments Start: 04/21/21 12:28 Freq: Status: Active Protocol: Document 04/27/21 13:45 OF (Rec: 04/27/21 13:50 OF [id number]) Cardio Equipment Recumbent Bicycle Duration (Minutes) 6 Other cues for pursed lip breathing, rest 3min at 3min Therapeutic Exercises Sitting Exercises LAQ Side bilateral Reps/Minutes 3x10 Comments cues for full ROM Standing Exercises gastroc stretch Side bilateral Reps/Minutes 3x30s marching Side bilateral Reps/Minutes [id number] minisquats Side bilateral Reps/Minutes 3x10 Comments cues for ant weightshifting Gait Training Gait Activity 4ww Level of Assistance MIN Treatment Focus improved pushoff, hip extension to increase gait speed Self-Care/Home Management Treatment Education Patient Education Home Exercise Program PT-OP-T Assessment and Plan Start: 04/21/21 12:28 Freq: Status: Active Protocol: Document 04/27/21 13:45 OF (Rec: 04/27/21 13:50 OF [id number]) Physical Therapy Assessment Rehab Potential Rehabilitation Potential Good Evaluation Complexity Number of Personal Factors/Comorbidities 1-2 Number of Body Systems Impaired 1-2 Clinical Presentation at Evaluation Stable Impairments Impairments Activity Tolerance,Functional Activities,Strength Goals 3 Impairment poor endurance Short Term Goal (STG) Pt will AMB 400ft in 6min STG Duration 2weeks Needle Punch Machine Operator Helper Goal (LTG) Pt will AMB >650ft in 6min to demonstrate a lower risk for hospitalization LTG Duration 6 weeks Progress Towards Goals Progress Towards Goals Progressing Toward Goals Assessment Summary Assessment Janet has limited endurance today, requires frequent seated rest due to fatigue today Physical Therapy Plan Frequency and Duration Frequency of Treatment 1-2x/week Duration of Treatment 6 weeks Plan of Care Start Date 04/21/21 Plan of Care End Date 06/02/21 Therapeutic Interventions Therapeutic Interventions Gait Training,Neuromuscular Re -education,Therapeutic Activities,Therapeutic Exercises Next Visit Focus/Plan Next Note Type Treatment Note Next Visit Plan assess response to piriformis stretch (modified) and gastroc stretch
--- NOTE | 2021-04-30 16:04 | PT.OTN ---
Current Diagnoses Other chronic pain (04/30/21) Low back pain (04/30/21) Physical Therapy Treatment Note PT-OP-A Visit Information Start: 04/21/21 12:28 Freq: Status: Active Protocol: Document 04/30/21 15:56 OF (Rec: 04/30/21 16:04 OF [id number]) Out-Patient Physical Therapy Visit Information Visit Information Visit Type Treatment Note Visit Start Time 15:16 Visit Stop Time 15:56 Total Visit Minutes 40 Visit Number 4 Evaluation Information Evaluation Date 04/21/21 PT-OP-B Current Condition Start: 04/21/21 12:28 Freq: Status: Active Protocol: Document 04/21/21 12:30 OF (Rec: 04/21/21 12:48 OF [id number]) Current Condition History of Current Condition Onset Date 1964 History of Current Condition Pt states she has had 17 back surgeries since 1964. 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 Pt reports arthritis, HTN, CHF, COPD, fibromyalgia, hearing problems , CKD, neck [ain, neuropathy, osteopenia, pulmonary edema, SOB, varicose veins as PMHX. Prior Treatments and Tests prior therapy Treatment Goals Patient/Caregiver Goals get my legs stronger, help my back Prior Functional Status Baseline Function- ADL's Independent Baseline Function- Mobility Independent Current Functional Impairments (Reported) Functional Limitations- Mobility/Gait using 4ww x5 yrs PT-OP-C Subjective Start: 04/21/21 12:28 Freq: Status: Active Protocol: Document 04/30/21 15:56 OF (Rec: 04/30/21 16:04 OF [id number]) OP-PT Subjective Patient Comments Patient Comments pt reports increased back and R LE pain today after mobilizing all morning Patient Reported Progress Improving OP-PT Pain Assessment Location R LE Pain Location Details radicular Intensity 5 Scale Used Numeric (0 - 10) Description Aching,Pulling,Sharp Frequency Frequent Pain Aggravating Factors Exercise Pain Alleviating Factors Lying Supine Other Pain Alleviating Factors with LE elevated PT-OP-E Functional Tests Start: 04/21/21 12:28 Freq: Status: Active Protocol: Document 04/21/21 12:30 OF (Rec: 04/21/21 12:48 OF [id number]) Functional Tests 2 Minute Walk Test Distance 300ft Device Used 4ww Comments only completed 3min prior to SOB PT-OP-G Mobility & Gait Start: 04/21/21 12:28 Freq: Status: Active Protocol: Document 04/21/21 12:30 OF (Rec: 04/21/21 12:48 OF [id number]) OP Gait Assessment Gait Gait Assistance Required: Standby Assistance Distance (Feet) 300 Able to Maintain Weight Bearing Status Yes During Gait Assistive Devices Assistive Device 4 Wheeled Walker Gait Deviations General Gait Pattern Decreased Stride Length, Decreased Feet Clearance, Flexed Trunk Factors Limiting Gait Function Factors Limiting Gait Function Decreased Strength,Limited Range of Motion PT-OP-H Neuro Start: 04/21/21 12:28 Freq: Status: Active Protocol: Document 04/21/21 12:30 OF (Rec: 04/21/21 12:48 OF [id number]) Sensation Evaluation Gross Sensation Gross Sensation WNL Comments Summary Comments pt reports numbness over all toes, intermittent PT-OP-Q Treatments Start: 04/21/21 12:28 Freq: Status: Active Protocol: Document 04/30/21 15:56 OF (Rec: 04/30/21 16:04 OF [id number]) Cardio Equipment Recumbent Bicycle Duration (Minutes) 6 Other cues for pursed lip breathing Therapeutic Exercises Supine Exercises SKTC Side bilateral Reps/Minutes 3x2min Comments cues for proper positioning and relaxation, reduced symptoms Gait Training Gait Activity quad cane Device Used qaud cane Level of Assistance MIN Surface level Distance/Duration [id number] Treatment Focus cues for widening EVELYN, proper AD placement, heel toe and pushoff Comments cane raised for improved hip extension and gait speed Neuro Re-Education Treatment Other Activities pursed lip breathing Details [id number] Comments demo and tactile cues for pursed lip breathing, feedback with hand on abdomen improves performance Self-Care/Home Management Treatment Education Patient Education Home Exercise Program PT-OP-T Assessment and Plan Start: 04/21/21 12:28 Freq: Status: Active Protocol: Document 04/30/21 15:56 OF (Rec: 04/30/21 16:04 OF [id number]) Physical Therapy Assessment Rehab Potential Rehabilitation Potential Good Evaluation Complexity Number of Personal Factors/Comorbidities 1-2 Number of Body Systems Impaired 1-2 Clinical Presentation at Evaluation Stable Impairments Impairments Activity Tolerance,Gait, Strength Goals 3 Impairment poor endurance Short Term Goal (STG) Pt will AMB 400ft in 6min STG Duration 2weeks Intermediate Goal (LTG) Pt will AMB >650ft in 6min to demonstrate a lower risk for hospitalization LTG Duration 6 weeks 2 Impairment LE weakness Impairment Pt is unable to complete sit to stand without UE assist Short Term Goal (STG) Pt will perform sit to stand x5 in 30sec without UE assist to demo improved LE strength STG Duration 2 weeks Frame Bender Goal (LTG) Pt will perform sit to stand x 10 to demo improved community mobility LTG Duration 6 weeks 1 Impairment pt lacks HEP Short Term Goal (STG) Pt will be I with HEP to improve activity levels at home Progress Towards Goals Progress Towards Goals Progressing Toward Goals Assessment Summary Assessment Janet is limited by back pain today, she is only able to tolerate recumbant biking and hooklying stretches to relieve radicular symptoms. She does report reduced symptoms with stretches Physical Therapy Plan Frequency and Duration Frequency of Treatment 1-2x/week Therapeutic Interventions Therapeutic Interventions Gait Training,Neuromuscular Re -education,Therapeutic Activities,Therapeutic Exercises Next Visit Focus/Plan Next Note Type Treatment Note Next Visit Plan assess response to hooklying single knee to chest
--- NOTE | 2021-05-07 13:48 | PT.OTN ---
Current Diagnoses Other chronic pain (05/07/21) Low back pain (05/07/21) Physical Therapy Treatment Note PT-OP-A Visit Information Start: 04/21/21 12:28 Freq: Status: Active Protocol: Document 05/07/21 13:42 OF (Rec: 05/07/21 13:47 OF [email or web address]) Out-Patient Physical Therapy Visit Information Visit Information Visit Type Treatment Note Visit Note pt 11 min late Visit Start Time 13:11 Visit Stop Time 13:41 Total Visit Minutes 30 Visit Number 5 Evaluation Information Evaluation Date 04/21/21 PT-OP-B Current Condition Start: 04/21/21 12:28 Freq: Status: Active Protocol: Document 04/21/21 12:30 OF (Rec: 04/21/21 12:48 OF [id number]) Current Condition History of Current Condition Onset Date 1964 History of Current Condition Pt states she has had 17 back surgeries since 1964. 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 Pt reports arthritis, HTN, CHF, COPD, fibromyalgia, hearing problems , CKD, neck [ain, neuropathy, osteopenia, pulmonary edema, SOB, varicose veins as PMHX. Prior Treatments and Tests prior therapy Treatment Goals Patient/Caregiver Goals get my legs stronger, help my back Prior Functional Status Baseline Function- ADL's Independent Baseline Function- Mobility Independent Current Functional Impairments (Reported) Functional Limitations- Mobility/Gait using 4ww x5 yrs PT-OP-C Subjective Start: 04/21/21 12:28 Freq: Status: Active Protocol: Document 05/07/21 13:42 OF (Rec: 05/07/21 13:47 OF [email or web address]) OP-PT Subjective Patient Comments Patient Comments pt reports increased fatigue with ADL today, using SPC Patient Reported Progress Same OP-PT Pain Assessment Pain Assessment Grid Paper Pain Assessment Grid Completed No: pt denies pain today PT-OP-E Functional Tests Start: 04/21/21 12:28 Freq: Status: Active Protocol: Document 04/21/21 12:30 OF (Rec: 04/21/21 12:48 OF [id number]) Functional Tests 2 Minute Walk Test Distance 300ft Device Used 4ww Comments only completed 3min prior to SOB PT-OP-G Mobility & Gait Start: 04/21/21 12:28 Freq: Status: Active Protocol: Document 04/21/21 12:30 OF (Rec: 04/21/21 12:48 OF [id number]) OP Gait Assessment Gait Gait Assistance Required: Standby Assistance Distance (Feet) 300 Able to Maintain Weight Bearing Status Yes During Gait Assistive Devices Assistive Device 4 Wheeled Walker Gait Deviations General Gait Pattern Decreased Stride Length, Decreased Feet Clearance, Flexed Trunk Factors Limiting Gait Function Factors Limiting Gait Function Decreased Strength,Limited Range of Motion PT-OP-H Neuro Start: 04/21/21 12:28 Freq: Status: Active Protocol: Document 04/21/21 12:30 OF (Rec: 04/21/21 12:48 OF [id number]) Sensation Evaluation Gross Sensation Gross Sensation WNL Comments Summary Comments pt reports numbness over all toes, intermittent PT-OP-Q Treatments Start: 04/21/21 12:28 Freq: Status: Active Protocol: Document 05/07/21 13:42 OF (Rec: 05/07/21 13:47 OF [email or web address]) Cardio Equipment Recumbent Bicycle Duration (Minutes) 6 Other cues for pursed lip breathing, resting Therapeutic Exercises Supine Exercises SKTC Side bilateral Reps/Minutes 3x2min Comments reduced symptoms, cues to avoid excess rotation Standing Exercises minisquats Side bilateral Reps/Minutes 2x10 Comments cues for ant weightshifting and UE assist Gait Training Gait Activity quad cane Device Used SPC today Level of Assistance MIN Surface level Distance/Duration [id number] Treatment Focus cues for sequencing AD, widening EVELYN and avoiding cane with directional chn Comments cane raised, cues for keeping cane at same height PT-OP-T Assessment and Plan Start: 04/21/21 12:28 Freq: Status: Active Protocol: Document 05/07/21 13:42 OF (Rec: 05/07/21 13:47 OF [email or web address]) Physical Therapy Assessment Rehab Potential Rehabilitation Potential Good Evaluation Complexity Number of Personal Factors/Comorbidities 1-2 Number of Body Systems Impaired 1-2 Clinical Presentation at Evaluation Stable Impairments Impairments Activity Tolerance,Gait, Strength Goals 3 Impairment poor endurance Short Term Goal (STG) Pt will AMB 400ft in 6min STG Duration 2weeks Raw Silk Grader Goal (LTG) Pt will AMB >650ft in 6min to demonstrate a lower risk for hospitalization LTG Duration 6 weeks 2 Impairment LE weakness Impairment Pt is unable to complete sit to stand without UE assist Short Term Goal (STG) Pt will perform sit to stand x5 in 30sec without UE assist to demo improved LE strength STG Duration 2 weeks Raw Silk Grader Goal (LTG) Pt will perform sit to stand x 10 to demo improved community mobility LTG Duration 6 weeks 1 Impairment pt lacks HEP Short Term Goal (STG) Pt will be I with HEP to improve activity levels at home Progress Towards Goals Progress Towards Goals Slow Progress due to Activity Tolerance Assessment Summary Assessment Janet reports increased fatigue today, she has difficulty following cues for proper technique today, anxious and easily distracted with therex and gait training despite multiple attempts at redirection Physical Therapy Plan Frequency and Duration Frequency of Treatment 1-2x/week Duration of Treatment 6 weeks Plan of Care Start Date 04/21/21 Plan of Care End Date 06/02/21 Therapeutic Interventions Therapeutic Interventions Gait Training,Neuromuscular Re -education,Therapeutic Activities,Therapeutic Exercises Next Visit Focus/Plan Next Note Type Treatment Note Next Visit Plan progress LE strengthening, increase activity if tolerated , progress gait training with cane
--- NOTE | 2021-05-13 15:28 | PT.OTN ---
Current Diagnoses Other chronic pain (05/13/21) Low back pain (05/13/21) Physical Therapy Treatment Note PT-OP-A Visit Information Start: 04/21/21 12:28 Freq: Status: Active Protocol: Document 05/13/21 15:22 OF (Rec: 05/13/21 15:28 OF [email or web address]) Out-Patient Physical Therapy Visit Information Visit Information Visit Type Treatment Note Visit Start Time 14:40 Visit Stop Time 15:20 Total Visit Minutes 40 Visit Number 6 Evaluation Information Evaluation Date 04/21/21 PT-OP-B Current Condition Start: 04/21/21 12:28 Freq: Status: Active Protocol: Document 04/21/21 12:30 OF (Rec: 04/21/21 12:48 OF [id number]) Current Condition History of Current Condition Onset Date 1964 History of Current Condition Pt states she has had 17 back surgeries since 1964. 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 Pt reports arthritis, HTN, CHF, COPD, fibromyalgia, hearing problems , CKD, neck [ain, neuropathy, osteopenia, pulmonary edema, SOB, varicose veins as PMHX. Prior Treatments and Tests prior therapy Treatment Goals Patient/Caregiver Goals get my legs stronger, help my back Prior Functional Status Baseline Function- ADL's Independent Baseline Function- Mobility Independent Current Functional Impairments (Reported) Functional Limitations- Mobility/Gait using 4ww x5 yrs PT-OP-C Subjective Start: 04/21/21 12:28 Freq: Status: Active Protocol: Document 05/13/21 15:22 OF (Rec: 05/13/21 15:28 OF [email or web address]) OP-PT Subjective Patient Comments Patient Comments pt reports HEP difficulty due to distractions Patient Reported Progress Same OP-PT Pain Assessment Pain Assessment Grid Paper Pain Assessment Grid Completed No: pt denies pain today PT-OP-E Functional Tests Start: 04/21/21 12:28 Freq: Status: Active Protocol: Document 04/21/21 12:30 OF (Rec: 04/21/21 12:48 OF [id number]) Functional Tests 2 Minute Walk Test Distance 300ft Device Used 4ww Comments only completed 3min prior to SOB PT-OP-G Mobility & Gait Start: 04/21/21 12:28 Freq: Status: Active Protocol: Document 04/21/21 12:30 OF (Rec: 04/21/21 12:48 OF [id number]) OP Gait Assessment Gait Gait Assistance Required: Standby Assistance Distance (Feet) 300 Able to Maintain Weight Bearing Status Yes During Gait Assistive Devices Assistive Device 4 Wheeled Walker Gait Deviations General Gait Pattern Decreased Stride Length, Decreased Feet Clearance, Flexed Trunk Factors Limiting Gait Function Factors Limiting Gait Function Decreased Strength,Limited Range of Motion PT-OP-H Neuro Start: 04/21/21 12:28 Freq: Status: Active Protocol: Document 04/21/21 12:30 OF (Rec: 04/21/21 12:48 OF [id number]) Sensation Evaluation Gross Sensation Gross Sensation WNL Comments Summary Comments pt reports numbness over all toes, intermittent PT-OP-Q Treatments Start: 04/21/21 12:28 Freq: Status: Active Protocol: Document 05/13/21 15:22 OF (Rec: 05/13/21 15:28 OF [email or web address]) Cardio Equipment Recumbent Bicycle Duration (Minutes) 8 Resistance 5 Other cues for pursed lip breathing, resting, rest>active today Therapeutic Exercises Sitting Exercises LAQ Side bilateral Reps/Minutes 3x10 Comments cues for full ROM Standing Exercises gastroc stretch Side bilateral Reps/Minutes 3x30s marching Side bilateral Reps/Minutes [id number] Comments step for target minisquats Side bilateral Reps/Minutes 2x10 Comments cues for ant weightshifting and UE assist Gait Training Gait Activity 4ww Level of Assistance MIN Treatment Focus improved pushoff, hip extension to increase gait speed Comments pt requires cues to stay within safe distance of AD Neuro Re-Education Treatment Balance Activities Balance board Surface balance board- A/P and lateral Reps/Duration 10 min Comments cues for UE support, planning directional changes and righting reactions Other Activities pursed lip breathing Details [id number] Comments demo and tactile cues for pursed lip breathing, feedback with relaxing shoulders improves performance Self-Care/Home Management Treatment Education Patient Education Home Exercise Program PT-OP-T Assessment and Plan Start: 04/21/21 12:28 Freq: Status: Active Protocol: Document 05/13/21 15:22 OF (Rec: 05/13/21 15:28 OF [email or web address]) Physical Therapy Assessment Rehab Potential Rehabilitation Potential Good Evaluation Complexity Number of Personal Factors/Comorbidities 1-2 Number of Body Systems Impaired 1-2 Clinical Presentation at Evaluation Stable Impairments Impairments Activity Tolerance,Gait, Strength Goals 3 Impairment poor endurance Short Term Goal (STG) Pt will AMB 400ft in 6min STG Duration 2weeks Facility Sales And Admin Goal (LTG) Pt will AMB >650ft in 6min to demonstrate a lower risk for hospitalization LTG Duration 6 weeks 2 Impairment LE weakness Impairment Pt is unable to complete sit to stand without UE assist Short Term Goal (STG) Pt will perform sit to stand x5 in 30sec without UE assist to demo improved LE strength STG Duration 2 weeks Facility Sales And Admin Goal (LTG) Pt will perform sit to stand x 10 to demo improved community mobility LTG Duration 6 weeks 1 Impairment pt lacks HEP Short Term Goal (STG) Pt will be I with HEP to improve activity levels at home Progress Towards Goals Progress Towards Goals Progressing Toward Goals Assessment Summary Assessment Janet has limited endurance today, SOB with minimal exertion. She requires cues for improved HEP performance and taking meds as ordered by MD Physical Therapy Plan Frequency and Duration Frequency of Treatment 1-2x/week Duration of Treatment 6 weeks Plan of Care Start Date 04/21/21 Plan of Care End Date 06/02/21 Therapeutic Interventions Therapeutic Interventions Gait Training,Neuromuscular Re -education,Therapeutic Activities,Therapeutic Exercises Next Visit Focus/Plan Next Note Type Treatment Note Next Visit Plan progress HEP if pt can improve adherence, goal to make activity >rest
--- NOTE | 2021-05-19 16:01 | PT.OTN ---
Current Diagnoses Other chronic pain (05/19/21) Low back pain (05/19/21) Physical Therapy Treatment Note PT-OP-A Visit Information Start: 04/21/21 12:28 Freq: Status: Active Protocol: Document 05/19/21 15:55 OF (Rec: 05/19/21 16:01 OF [id number]) Out-Patient Physical Therapy Visit Information Visit Information Visit Type Treatment Note Visit Start Time 15:25 Visit Stop Time 15:55 Total Visit Minutes 30 Visit Number 7 Evaluation Information Evaluation Date 04/21/21 PT-OP-B Current Condition Start: 04/21/21 12:28 Freq: Status: Active Protocol: Document 04/21/21 12:30 OF (Rec: 04/21/21 12:48 OF [id number]) Current Condition History of Current Condition Onset Date 1964 History of Current Condition Pt states she has had 17 back surgeries since 1964. 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 Pt reports arthritis, HTN, CHF, COPD, fibromyalgia, hearing problems , CKD, neck [ain, neuropathy, osteopenia, pulmonary edema, SOB, varicose veins as PMHX. Prior Treatments and Tests prior therapy Treatment Goals Patient/Caregiver Goals get my legs stronger, help my back Prior Functional Status Baseline Function- ADL's Independent Baseline Function- Mobility Independent Current Functional Impairments (Reported) Functional Limitations- Mobility/Gait using 4ww x5 yrs PT-OP-C Subjective Start: 04/21/21 12:28 Freq: Status: Active Protocol: Document 05/19/21 15:55 OF (Rec: 05/19/21 16:01 OF [id number]) OP-PT Subjective Patient Comments Patient Comments pt reports HEP as instructed SOB at home Patient Reported Progress Same OP-PT Pain Assessment Pain Assessment Grid Paper Pain Assessment Grid Completed No: pt reports lumbar pain 3/ 10 today PT-OP-E Functional Tests Start: 04/21/21 12:28 Freq: Status: Active Protocol: Document 04/21/21 12:30 OF (Rec: 04/21/21 12:48 OF [id number]) Functional Tests 2 Minute Walk Test Distance 300ft Device Used 4ww Comments only completed 3min prior to SOB PT-OP-G Mobility & Gait Start: 04/21/21 12:28 Freq: Status: Active Protocol: Document 04/21/21 12:30 OF (Rec: 04/21/21 12:48 OF [id number]) OP Gait Assessment Gait Gait Assistance Required: Standby Assistance Distance (Feet) 300 Able to Maintain Weight Bearing Status Yes During Gait Assistive Devices Assistive Device 4 Wheeled Walker Gait Deviations General Gait Pattern Decreased Stride Length, Decreased Feet Clearance, Flexed Trunk Factors Limiting Gait Function Factors Limiting Gait Function Decreased Strength,Limited Range of Motion PT-OP-H Neuro Start: 04/21/21 12:28 Freq: Status: Active Protocol: Document 04/21/21 12:30 OF (Rec: 04/21/21 12:48 OF [id number]) Sensation Evaluation Gross Sensation Gross Sensation WNL Comments Summary Comments pt reports numbness over all toes, intermittent PT-OP-Q Treatments Start: 04/21/21 12:28 Freq: Status: Active Protocol: Document 05/19/21 15:55 OF (Rec: 05/19/21 16:01 OF [id number]) Cardio Equipment Recumbent Bicycle Duration (Minutes) 5 Resistance 5 Other cues for pursed lip breathing, rest>active today Therapeutic Exercises Supine Exercises SKTC Side bilateral Reps/Minutes 3x2min Comments reduced symptoms, cues to maintain flat hips Standing Exercises gastroc stretch Side bilateral Reps/Minutes 3x30s marching Side bilateral Reps/Minutes [id number] Comments step for target minisquats Side bilateral Reps/Minutes 2x10 Comments cues for ant weightshifting and UE assist Neuro Re-Education Treatment Balance Activities Balance board Surface balance board/foam- A/P and lateral Reps/Duration 10 min Comments cues for UE support, and righting reactions Other Activities pursed lip breathing Details [id number] Comments tactile cues with hand on belly for pursed lip breathing , feedback with relaxing shoulders improves performance Self-Care/Home Management Treatment Education Patient Education Home Exercise Program PT-OP-T Assessment and Plan Start: 04/21/21 12:28 Freq: Status: Active Protocol: Document 05/19/21 15:55 OF (Rec: 05/19/21 16:01 OF [id number]) Physical Therapy Assessment Rehab Potential Rehabilitation Potential Good Evaluation Complexity Number of Personal Factors/Comorbidities 1-2 Number of Body Systems Impaired 1-2 Clinical Presentation at Evaluation Stable Impairments Impairments Activity Tolerance,Gait, Strength Goals 3 Impairment poor endurance Short Term Goal (STG) Pt will AMB 400ft in 6min STG Duration 2weeks Long-Term Goal (LTG) Pt will AMB >650ft in 6min to demonstrate a lower risk for hospitalization LTG Duration 6 weeks 2 Impairment LE weakness Impairment Pt is unable to complete sit to stand without UE assist Short Term Goal (STG) Pt will perform sit to stand x5 in 30sec without UE assist to demo improved LE strength STG Duration 2 weeks Long-Term Goal (LTG) Pt will perform sit to stand x 10 to demo improved community mobility LTG Duration 6 weeks 1 Impairment pt lacks HEP Short Term Goal (STG) Pt will be I with HEP to improve activity levels at home Progress Towards Goals Progress Towards Goals Progressing Toward Goals Assessment Summary Assessment pt requires continued cues for pelvic positioning, proper ROM Physical Therapy Plan Frequency and Duration Frequency of Treatment 1-2x/week Duration of Treatment 6 weeks Plan of Care Start Date 04/21/21 Plan of Care End Date 06/02/21 Therapeutic Interventions Therapeutic Interventions Gait Training,Neuromuscular Re -education,Therapeutic Activities,Therapeutic Exercises Next Visit Focus/Plan Next Note Type Treatment Note Next Visit Plan progress LE strength and encourage independence with HEP
--- NOTE | 2021-06-02 14:57 | PT-OP ANOTE ---
Pt no call, no show
--- NOTE | 2021-06-04 11:17 | PT-OP ANOTE ---
Pt no show, no call for last scheduled appt.
--- NOTE | 2021-06-04 11:17 | PT.OPDS ---
Current Diagnoses Other chronic pain (05/19/21) Low back pain (05/19/21) Visit Care Team Role Provider Type HAMZAH Miranda Attending Provider [employer] Presser Primary Care Provider Referring Provider Specialty: Medical Address: [address] [place] [address], [facility] Email: [email or web address] Visit Number Visit Number 7 Discharge Summary PT-OP-B Current Condition Start: 04/21/21 12:28 Freq: Status: Active Protocol: Document 04/21/21 12:30 OF (Rec: 04/21/21 12:48 OF [id number]) Current Condition History of Current Condition Onset Date 1965 History of Current Condition Pt states she has had 17 back surgeries since 1964. 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 Pt reports arthritis, HTN, CHF, COPD, fibromyalgia, hearing problems , CKD, neck [ain, neuropathy, osteopenia, pulmonary edema, SOB, varicose veins as PMHX. Prior Treatments and Tests prior therapy Treatment Goals Patient/Caregiver Goals get my legs stronger, help my back Prior Functional Status Baseline Function- ADL's Independent Baseline Function- Mobility Independent Current Functional Impairments (Reported) Functional Limitations- Mobility/Gait using 4ww x5 yrs PT-OP-C Subjective Start: 04/21/21 12:28 Freq: Status: Active Protocol: Document 05/19/21 15:55 OF (Rec: 05/19/21 16:01 OF [id number]) OP-PT Subjective Patient Comments Patient Comments pt reports HEP as instructed SOB at home Patient Reported Progress Same OP-PT Pain Assessment Pain Assessment Grid Paper Pain Assessment Grid Completed No: pt reports lumbar pain 3/ 10 today PT-OP-E Functional Tests Start: 04/21/21 12:28 Freq: Status: Active Protocol: Document 04/21/21 12:30 OF (Rec: 04/21/21 12:48 OF [id number]) Functional Tests 2 Minute Walk Test Distance 300ft Device Used 4ww Comments only completed 3min prior to SOB PT-OP-G Mobility & Gait Start: 04/21/21 12:28 Freq: Status: Active Protocol: Document 04/21/21 12:30 OF (Rec: 04/21/21 12:48 OF [id number]) OP Gait Assessment Gait Gait Assistance Required: Standby Assistance Distance (Feet) 300 Able to Maintain Weight Bearing Status Yes During Gait Assistive Devices Assistive Device 4 Wheeled Walker Gait Deviations General Gait Pattern Decreased Stride Length, Decreased Feet Clearance, Flexed Trunk Factors Limiting Gait Function Factors Limiting Gait Function Decreased Strength,Limited Range of Motion PT-OP-H Neuro Start: 04/21/21 12:28 Freq: Status: Active Protocol: Document 04/21/21 12:30 OF (Rec: 04/21/21 12:48 OF [id number]) Sensation Evaluation Gross Sensation Gross Sensation WNL Comments Summary Comments pt reports numbness over all toes, intermittent PT-OP-T Assessment and Plan Start: 04/21/21 12:28 Freq: Status: Active Protocol: Document 05/19/21 15:55 OF (Rec: 05/19/21 16:01 OF [id number]) Physical Therapy Assessment Rehab Potential Rehabilitation Potential Good Evaluation Complexity Number of Personal Factors/Comorbidities 1-2 Number of Body Systems Impaired 1-2 Clinical Presentation at Evaluation Stable Impairments Impairments Activity Tolerance,Gait, Strength Goals 3 Impairment poor endurance Short Term Goal (STG) Pt will AMB 400ft in 6min STG Duration 2weeks Snf Goal (LTG) Pt will AMB >650ft in 6min to demonstrate a lower risk for hospitalization LTG Duration 6 weeks 2 Impairment LE weakness Impairment Pt is unable to complete sit to stand without UE assist Short Term Goal (STG) Pt will perform sit to stand x5 in 30sec without UE assist to demo improved LE strength STG Duration 2 weeks Chargemaster Analyst Goal (LTG) Pt will perform sit to stand x 10 to demo improved community mobility LTG Duration 6 weeks 1 Impairment pt lacks HEP Short Term Goal (STG) Pt will be I with HEP to improve activity levels at home Progress Towards Goals Progress Towards Goals Progressing Toward Goals Assessment Summary Assessment pt requires continued cues for pelvic positioning, proper ROM Physical Therapy Plan Frequency and Duration Frequency of Treatment 1-2x/week Duration of Treatment 6 weeks Plan of Care Start Date 04/21/21 Plan of Care End Date 06/02/21 Therapeutic Interventions Therapeutic Interventions Gait Training,Neuromuscular Re -education,Therapeutic Activities,Therapeutic Exercises Next Visit Focus/Plan Next Note Type Treatment Note Next Visit Plan progress LE strength and encourage independence with HEP
== END 2021-06-04 17:00 ==
LOC: PHYS 15:15
PROVIDERS: PCP Registered Nurse; Referring Provider Registered Nurse; Visit Provider Registered Nurse
DX: M54.5 Low back pain (principal); G89.29 Other chronic pain
CPT/HCPCS: 97110; 97112; 97116; 97162

== ENCOUNTER → 2021-05-25 16:53 | Outpatient (CLI) | payer MEDICARE, MEDICAID, SELFPAY ==
--- NOTE | 2021-05-25 16:55 | DI.RAD.S_ITS ---
PROCEDURE: XR ANKLE RT MIN 3V INDICATIONS: right ankle pain TECHNIQUE: 3 views of the ankle were acquired. COMPARISON: [facility], CR, XR TIBIA FIBULA RT 2V, 05/25/2021, 16:54. FINDINGS: Bones: No fractures or dislocations. Ankle mortise is normally aligned. No suspicious bony lesions. Mild degenerative joint disease. Soft tissues: No tibiotalar joint effusion. Achilles tendon appears normal. IMPRESSION: 1. No acute osseous abnormalities. 2. Mild degenerative joint disease. Dictated by: Do White M.D. on 05/26/2021 at 10:47 Approved by: Do White M.D. on 05/26/2021 at 10:50
--- NOTE | 2021-05-25 16:55 | DI.RAD.S_ITS ---
PROCEDURE: XR LUMBAR SPINE 2-3V INDICATIONS: lower back pain TECHNIQUE: To views of the lumbar spine were acquired. COMPARISON: [facility], CT, L-SPINE WITHOUT CONTRAST, 02/12/2016, 13:19. [facility], CR, XR LUMBAR SPINE 2-3V, 12/14/2019, 12:49. FINDINGS: Bones: 5 [id number] vertebrae are present. There is normal bony alignment. There is posterior fusion at L1-L4. Pedicular screws and fusion rods are intact. Surgical fusion of L4-L5 and L5-S1. Because of osteopenia, inferior L4, L5 and superior S1 are not well visualized. No definitive acute vertebral body compression fractures. No suspicious bony lesions. Severe degenerative disc disease at T10-T11, T11-T12 and T12-L1. Soft tissues: Overlying bowel gas pattern is normal. No suspicious soft tissue calcifications. IMPRESSION: 1. Degenerative and postsurgical changes in lumbar spine. Surgical hardware appear intact. 2. Osteopenia. The inferior aspect of L4, L5, and superior aspect of S1 are not well seen due to osteopenia and postsurgical change. If clinical symptoms persist or clinical suspicion for acute abnormality is high, CT is suggested for further evaluation. Dictated by: Do White M.D. on 05/26/2021 at 8:51 Approved by: Do White M.D. on 05/26/2021 at 8:58
--- NOTE | 2021-05-25 16:55 | DI.RAD.S_ITS ---
PROCEDURE: XR TIBIA FUBULA RT 2V INDICATIONS: right leg injury/pain TECHNIQUE: 2 views of the tibia and fibula were acquired. COMPARISON: [facility] [place], SONAL, KNEE SERIES RT, 01/17/2017, 11:50. [facility], CR, XR ANKLE RT MIN 3V, 05/25/2021, 16:54. FINDINGS: Bones: No fractures or dislocations. No suspicious bony lesions. Note is made of total knee arthroplasty. Soft tissues: No suspicious soft tissue calcifications or masses. IMPRESSION: No acute osseous abnormalities. Dictated by: Do White M.D. on 05/26/2021 at 8:49 Approved by: Do White M.D. on 05/26/2021 at 8:51
== END ==
PROVIDERS: PCP Registered Nurse; Referring Provider Registered Nurse; Visit Provider Registered Nurse
DX: M25.571 Pain in right ankle and joints of right foot (principal); M54.5 Low back pain; G89.29 Other chronic pain; S89.91XA Unspecified injury of right lower leg, initial encounter; M85.88 Other specified disorders of bone density and structure, other site
CPT/HCPCS: 72100; 73590; 73610

== ENCOUNTER → 2021-06-15 16:57 | Outpatient (CLI) | payer MEDICARE, MEDICAID, SELFPAY ==
[2021-06-15 18:16] LABS: Blood Urea Nitrogen 31 mg/dL (7-17); Calcium 9.3 mg/dL (8.4-10.2); Carbon Dioxide 31 mmol/L (22-32); Chloride 103 mmol/L (98-107); Estimated Glomerular Filt Rate 32.5 mL/min (>60); Glucose 96 mg/dL (80-110); HEMOLYSIS < 15 (0-50); Potassium 3.8 mmol/L (3.4-5.1); Sodium 143 mmol/L (137-145)
== END ==
PROVIDERS: PCP Registered Nurse; Referring Provider Internal Medicine Nephrology; Visit Provider Internal Medicine Nephrology
DX: N18.31 Chronic kidney disease, stage 3a (principal)
CPT/HCPCS: 36415; 80048

== ENCOUNTER → 2021-07-27 16:57 | Outpatient (CLI) | payer MEDICARE, MEDICAID, SELFPAY | PROVIDERS: PCP Registered Nurse; Visit Provider Family Medicine | DX: R31.9 Hematuria, unspecified (principal) | CPT/HCPCS: 87086 ==

== ENCOUNTER → 2021-07-28 15:51 | Outpatient (CLI) | payer MEDICARE, MEDICAID, SELFPAY ==
--- NOTE | 2021-07-28 15:52 | DI.CT.S_ITS ---
PROCEDURE: CT KIDNEY URETER BLADDER (KUB) INDICATIONS: hematuria, flank pain TECHNIQUE: Axial sections were acquired from the lung bases to the pubic symphysis. Coronal and sagittal reformats were performed. For radiation dose reduction, the following was used: automated exposure control, adjustment of mA and/or kV according to patient size. COMPARISON: [facility], CT, KIDNEY/ URETER/BLADDER, 08/31/2005, 12:56. FINDINGS: Lower thorax: The lung bases are clear. Heart size normal. No hiatal hernia. Liver: Normal in size and attenuation. No contour deformity present. Biliary system: Cholecystectomy. Dilated CBD measures 1.9 cm, previously 1.3 cm Pancreas: Unremarkable without mass or inflammation evident. Spleen: Normal in size and density. Adrenals: Normal morphology and density. Reproductive system: Unremarkable as visualized. Urinary system: No evidence of renal calculi or hydronephrosis. 2.5 cm left renal cyst appears new from the prior exam Gastrointestinal system: The bowel is unremarkable without evidence of bowel obstruction or inflammation. The stomach appears unremarkable. Moderate fecal debris throughout the colon. Appendix: No findings to suggest acute appendicitis. Peritoneal spaces: No mesenteric or retroperitoneal adenopathy. No free air. No free fluid. Vasculature: The IVC, aorta and iliac vasculature are unremarkable. Abdominal wall: Abdominal wall intact without evidence of ventral or inguinal hernias. Musculoskeletal: Lower lumbar spine multilevel discectomy, interbody and posterolateral fusion with abdiel and screw instrumentation. Left iliac donor sites noted. Bilateral hip arthroplasty limits assessment of multiple images in the pelvis. IMPRESSION: 1. No evidence of renal calculi, hydronephrosis or obstructive uropathy. 2. Low-density 2.5 cm left renal lesion probably reflect cyst, new from the prior exam 3. Cholecystectomy and dilated CBD measuring up to 1.9 cm. Consider follow-up MRCP to evaluate for CBD stone. 4. Moderate fecal debris throughout the colon Approved by: Jimmy Rodriguez M.D. on 07/28/2021 at 16:47
== END ==
PROVIDERS: PCP Registered Nurse; Referring Provider Family Medicine; Visit Provider Family Medicine
DX: K83.8 Other specified diseases of biliary tract (principal); N28.89 Other specified disorders of kidney and ureter; R31.9 Hematuria, unspecified; R10.9 Unspecified abdominal pain; Z90.49 Acquired absence of other specified parts of digestive tract
CPT/HCPCS: 74176

== ENCOUNTER → 2021-08-04 12:48 | Outpatient (CLI) | payer MEDICARE, MEDICAID, SELFPAY ==
[2021-08-04 13:25] LABS: Appearance Urine UA CLEAR; Bilirubin Urine UA NEGATIVE (NEGATIVE); Color Urine UA YELLOW; Glucose Urine UA NEGATIVE (Negative); Ketones Urine UA NEGATIVE (NEGATIVE); Leukocyte Esterase Urine UA NEGATIVE (NEGATIVE); Nitrite Urine UA NEGATIVE (Negative); Occult Blood Urine UA 1+ (Negative); Protein Urine UA 2+ (Negative); Specific Gravity Urine UA 1.025 (1.000-1.035); Urobilinogen Urine UA 0.2 E.U./dL (0.2)
[2021-08-04 13:26] LABS: pH Urine UA 5.5 (4.5-8.0)
[2021-08-04 13:36] LABS: Bacteria Urine None Seen; Culture Indicated Urine Cult Not Indicated; RBC Urine 1-5/HPF (0-5/HPF); WBC Urine None Seen (0-5/HPF)
[2021-08-04 13:48] LABS: Add Manual Diff / Slide Review NO; Basophils Absolute Auto 100 /uL (0-100); Basophils Percent Auto 0.9 % (0-2); Eosinophils Absolute Auto 300 /uL (0-450); Eosinophils Percent Auto 4.4 % (2-4); Hematocrit 37.3 % (36-46); Hemoglobin 12.6 g/dL (12.0-16.0); Lymphocytes Absolute Auto 1500 /uL (1100-4500); Lymphocytes Percent Auto 22.5 % (25-40); Mean Corpuscular HGB Conc 33.8 % (30-36); Mean Corpuscular Hemoglobin 28.7 PG (26-34); Mean Corpuscular Volume 85.1 fL (80-100); Monocytes Absolute Auto 500 /uL (0-900); Monocytes Percent Auto 8.3 % (3-14); Neutrophils Absolute Auto 4200 /uL (1500-7000); Neutrophils Percent Auto 63.9 % (50-75); Platelet Count 261 X10^3/uL (150-400); Red Blood Cell Count 4.39 X10^6/uL (4.0-5.2); Red Cell Distribution Width 14.2 % (11.6-14.8); White Blood Cell Count 6.6 X10^3/uL (4.5-11.0)
[2021-08-04 14:58] LABS: Alanine Aminotransferase 18 IU/L (<35); Albumin 4.5 g/dL (3.5-5.0); Albumin Globulin Ratio 1.3 (1.0-2.8); Alkaline Phosphatase 108 U/L (38-126); Aspartate Aminotransferase 26 IU/L (14-36); BUN Creatinine Ratio 18.3 (6-22); Bilirubin Total 0.6 mg/dL (0.2-1.3); Blood Urea Nitrogen 23 mg/dL (7-17); Calcium 9.8 mg/dL (8.4-10.2); Carbon Dioxide 25 mmol/L (22-32); Chloride 105 mmol/L (98-107); Estimated Glomerular Filt Rate 41.3 mL/min (>60); Globulin 3.5 g/dL (1.7-4.1); Glucose 94 mg/dL (80-110); HEMOLYSIS < 15 (0-50); Potassium 4.9 mmol/L (3.4-5.1); Sodium 142 mmol/L (137-145)
== END ==
PROVIDERS: PCP Registered Nurse; Referring Provider Family Medicine; Visit Provider Family Medicine
DX: R10.9 Unspecified abdominal pain (principal); R31.9 Hematuria, unspecified; K83.8 Other specified diseases of biliary tract
CPT/HCPCS: 36415; 80053; 81001; 85025

== ENCOUNTER → 2021-08-10 12:59 | Outpatient (CLI) | payer MEDICARE, MEDICAID, SELFPAY ==
[2021-08-11 13:16] LABS: Fecal Immunochemical Test Negative (Negative)
== END ==
PROVIDERS: PCP Registered Nurse; Referring Provider Registered Nurse; Visit Provider Registered Nurse
DX: Z12.11 Encounter for screening for malignant neoplasm of colon (principal)
CPT/HCPCS: 82274

== ENCOUNTER → 2021-09-07 13:27 | Outpatient (CLI) | payer MEDICARE, MEDICAID, SELFPAY ==
[2021-09-07 15:46] LABS: Creatinine Urine Random 235.6 mg/dL; Protein (Total) Urine Random 90 mg/dL (0-12); Protein Creatinine Ratio Urine 0.38 GRAM/24H
[2021-09-10 13:24] LABS: Alpha-1 Globulin, Ur 1.7 % (.); Beta Globulin, Ur 12.9 % (.); Gamma Globulin, Ur 7.1 % (.); M-Spike % Not Observed % (Not Observed); Urine Total Protein 97.7 mg/dL (Not Estab.)
== END ==
PROVIDERS: Student in an Organized Health Care Education/Training Program; PCP Family Medicine; Referring Provider Family Medicine; Visit Provider Family Medicine
DX: R80.1 Persistent proteinuria, unspecified (principal)
CPT/HCPCS: 82570; 84156; 84166

== ENCOUNTER → 2021-09-17 11:49 | Outpatient (CLI) | payer MEDICARE, MEDICAID, SELFPAY ==
[2021-09-17 16:56] LABS: COVID19 -Nasal RAPID Negative (Negative)
== END ==
PROVIDERS: PCP Registered Nurse; Referring Provider Nurse Practitioner Family; Visit Provider Nurse Practitioner Family
DX: Z20.822 Contact with and (suspected) exposure to COVID-19 (principal); J02.9 Acute pharyngitis, unspecified
CPT/HCPCS: 87635

== ENCOUNTER → 2021-10-06 11:03 | Outpatient (CLI) | payer MEDICARE, SELFPAY ==
[2021-10-06 12:39] LABS: Hematocrit 32.9 % (36-46); Hemoglobin 11.2 g/dL (12.0-16.0)
[2021-10-06 13:17] LABS: Albumin 4.1 g/dL (3.5-5.0); BUN Creatinine Ratio 19.3 (6-22); Blood Urea Nitrogen 27 mg/dL (7-17); Calcium 9.6 mg/dL (8.4-10.2); Carbon Dioxide 31 mmol/L (22-32); Chloride 105 mmol/L (98-107); Estimated Glomerular Filt Rate 36.6 mL/min (>60); Glucose 105 mg/dL (80-110); HEMOLYSIS < 15 (0-50); Phosphorous 3.9 mg/dL (2.8-4.1); Potassium 4.5 mmol/L (3.4-5.1); Sodium 142 mmol/L (137-145)
[2021-10-06 16:40] LABS: Creatinine Urine Random 143.9 mg/dL
[2021-10-06 16:44] LABS: Microalbumi Creatinin Ratio Ur 90.3 ug/mg CR (<30)
[2021-10-07 07:11] LABS: Parathyroid Hormone Int 153 pg/mL (15-65)
== END ==
PROVIDERS: PCP Registered Nurse; Referring Provider Internal Medicine Nephrology; Visit Provider Internal Medicine Nephrology
DX: N18.32 Chronic kidney disease, stage 3b (principal)
CPT/HCPCS: 36415; 80069; 82043; 82306; 82570; 83970; 85014; 85018

== ENCOUNTER → 2021-11-05 18:37 | Outpatient (CLI) | payer MEDICARE, SELFPAY | PROVIDERS: PCP Registered Nurse; Visit Provider Physician Assistant | DX: R30.0 Dysuria (principal) | CPT/HCPCS: 87086 ==

== ENCOUNTER → 2021-11-10 14:48 | Outpatient (CLI) | payer MEDICARE, MEDICAID, SELFPAY ==
[2021-11-10 16:11] LABS: Hematocrit 34.2 % (36-46); Hemoglobin 11.1 g/dL (12.0-16.0)
[2021-11-10 16:29] LABS: Albumin 4.4 g/dL (3.5-5.0); BUN Creatinine Ratio 23.1 (6-22); Blood Urea Nitrogen 30 mg/dL (7-17); Calcium 9.5 mg/dL (8.4-10.2); Carbon Dioxide 28 mmol/L (22-32); Chloride 107 mmol/L (98-107); Estimated Glomerular Filt Rate 39.8 mL/min (>60); Glucose 106 mg/dL (80-110); HEMOLYSIS < 15 (0-50); Phosphorous 4.3 mg/dL (2.8-4.1); Potassium 4.3 mmol/L (3.4-5.1); Sodium 141 mmol/L (137-145)
[2021-11-10 17:19] LABS: Vitamin D 25 Hydroxy (D3) 40.9 ng/mL (30.0-100.0)
[2021-11-10 18:26] LABS: Creatinine Urine Random 132.2 mg/dL
[2021-11-10 18:58] LABS: Microalbumi Creatinin Ratio Ur 247.3 ug/mg CR (<30); Microalbumin Urine Random 32.7 mg/dL (0-1.6)
[2021-11-11 10:50] LABS: Parathyroid Hormone Int 88 pg/mL (15-65)
== END ==
PROVIDERS: PCP Registered Nurse; Referring Provider Internal Medicine Nephrology; Visit Provider Internal Medicine Nephrology
DX: N18.32 Chronic kidney disease, stage 3b (principal)
CPT/HCPCS: 36415; 80069; 82043; 82306; 82570; 83970; 85014; 85018

== ENCOUNTER → 2021-12-09 12:34 | Outpatient (CLI) | payer MEDICARE, MEDICAID, SELFPAY ==
--- NOTE | 2021-12-09 12:36 | DI.RAD.S_ITS ---
PROCEDURE: XR LUMBAR SPINE 2-3V INDICATIONS: sciatica TECHNIQUE: 3 views of the lumbar spine were acquired. COMPARISON: [facility], CR, XR LUMBAR SPINE 2-3V, 05/25/2021, 16:54. FINDINGS: Bones: 5 [id number] vertebrae are present. Again noted is prior posterior fusion at L1 through L4 levels unchanged from prior study. Minimal anterolisthesis of L3 on L4 and minimal retrolisthesis of L2 on L3 is again seen unchanged from prior study. No gross hardware loosening or failure is seen. No acute vertebral body compression fractures. Diffuse osteopenia is again noted. Degenerative endplate changes throughout lumbar spine is seen. No suspicious bony lesions. Soft tissues: Overlying bowel gas pattern is normal. No suspicious soft tissue calcifications. IMPRESSION: Stable lumbar spine alignment. Degenerative disc disease and postsurgical changes throughout lumbar spine as above unchanged from prior study. No gross hardware complication. Dictated by: Vimal Cummings M.D. on 12/09/2021 at 13:38 Approved by: Vimal Cummings M.D. on 12/09/2021 at 13:40
--- NOTE | 2022-05-04 14:30 | ST.SWALLOW ---
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 Pt reported her throat feels like it is closed and she needs to drink water to open her throat so she can breath. She added this has been going on for the past 10 -15 years and worsened over the past 5 years. Janet stated it feels like things get stuck and she cannot swallow. Pt wears lower dentures, which she did not have in for this appointment. Subjective Observations Janet arrived on time, pushed in a wheelchair due to vertigo that negatively impacted her balance and ability to ambulate independently. Patient Positioning Position View Lat-A/P Imaging Lateral View Textures Administered Trials Presented Thin Liquid via Cup,[place] Liquid via Cup,Honey Liquid via Spoon,Regular Textures Oral Phase Source: MBSIMP (TM) (C) Bolus Specific Scoring Grid Lip Closure No Impairment (WNL) Tongue Control During Bolus Hold Mild Impairment Bolus Prep/Mastication Moderate Impairment Bolus Transport/Lingual Motion No Impairment (WNL) A/P Lingual Propulsion Delay No Oral Residue Mild Impairment Residue Clearing No Impairment (WNL) Nasal Regurgitation No Additional Oral Phase Observations The pt exhibited no anterior loss of bolus and timely and efficient a/p propulsion of bolus. Difficulty controlling bolus during tongue hold, with loss of bolus to floor of mouth but not posterior loss of bolus observed. Mastication was slow and inefficient, characterized by mashing the cookie against the roof of her mouth, likely because she was not wearing her lower dentures. Pharyngeal Phase Source: MBSIMP (TM) (C) Bolus Specific Scoring Grid Delayed Initiation of Pharyngeal Swallow Yes: bolus head in pyriforms Soft Palate Elevation No Impairment (WNL) Tongue Base Strength/Range of Motion Mild Impairment Residue Along the Tongue Base Yes Clearance of Residue Along Tongue Base No Impairment (WNL) Laryngeal Elevation Mild Impairment Anterior Hyoid Movement No Impairment (WNL) Epiglottic Range of Motion No Impairment (WNL) Vallecular Residue Yes Clearance of Vallecular Residue No Impairment (WNL) Laryngeal Vestibular Closure Mild Impairment Pharyngeal Stripping Wave No Impairment (WNL) Pharyngeal Contraction No Impairment (WNL) Posterior Pharyngeal Wall Residue No Upper Esophageal Sphincter Opening No Impairment (WNL) Residue in the Pyriform Sinuses Yes: trace residue Clearance of Residue in the Pyriform No Impairment (WNL) Sinuses Esophageal Clearance Upright Position Mild Impairment Pharyngoesophageal Backflow Observed No Additional Pharyngeal Phase Observations Delayed pharyngeal swallow initiation, with the head of the bolus in the pyriforms. Epiglottic inversion was WNL and hyolaryngeal elevation and excursion was WNL. Laryngeal elevation and laryngeal vestibular closure were mildly impaired and penetration was observed with thin liquids x2 (PAS 2) and nectar thick liquids x2 (1 at PAS 2 and 1 at PAS 3). No penetration or aspiration observed with honey thick liquids. Trace residue noted in pyriforms and in valleculae, with increased residue noted on base of tongue. All residue was cleared WNL with a second swallow. Residue on base of tongue is likely due to reduced tongue base retraction . A/P View Textures Administered Trials Presented [place] Liquid via Cup,Barium Tablet A/P View Observations Pharyngeal Contraction No Impairment (WNL) Esophageal Function Slowed Clearing Esophageal Clearance Upright Position Mild Impairment Additional Observations Slowed clearing and residue noted with nectar thick liquid . Barium tablet moved slowly and required several drinks of water to clear. Clinical Impressions Dysphagia Type Oropharyngeal dysphagia Findings The pt presents with oropharyngeal dysphagia characterized by mastication inefficiency with solids, likely secondary to missing lower dentures, and impaired laryngeal vestibular closure resulting in penetration of thin and nectar thick liquids. Chin tuck was observed to be ineffective in improving swallow safety, though instances of penetration decreased with increased thickness of liquid. Recommend honey thick liquids and regular solids (when dentures are in). If dentures are not available, a dysphagia mechanical diet would be more suitable. Recommend referral for GI due to slowed clearing of bolus through esophagus and residue noted in esophagus following swallow. Recommend outpatient speech therapy to target oral motor exercises for improved swallow safety. Rehabilitation Potential Good Patient Appropriate for Therapy Yes Recommendations Diet Liquids Order Honey Diet Order Regular Medication Recommendation As Tolerated Aspiration Precautions Recommended Precautions Upright at 90 Degrees,Small Bites/Sips Treatment Plan Therapy Recommendations Outpatient Speech Therapy Recommended Referrals GI Consult Compensatory Strategies Recommendations Sitting Upright (90 deg),Small Bites and Sips Short Term Goals 1. The pt will perform safe swallow strategies with oral intake independently to reduce risk of aspiration. 2. The pt will perform exercises to increase strength , coordination, and ROM of swallow musculature independently to reduce risk of aspiration and increase comfort with oral intake. Group Home Goals The pt will safely tolerate least restrictive diet to meet her nutrition and hydration needs.
--- NOTE | 2022-05-05 15:01 | ST.SWALLOW ---
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 Pt reported her throat feels like it is closed and she needs to drink water to open her throat so she can breath. She added this has been going on for the past 10 -15 years and worsened over the past 5 years. Janet stated it feels like things get stuck and she cannot swallow. Pt wears lower dentures, which she did not have in for this appointment. Subjective Observations Janet arrived on time, pushed in a wheelchair due to vertigo that negatively impacted her balance and ability to ambulate independently. Patient Positioning Position View Lat-A/P Imaging Lateral View Textures Administered Trials Presented Thin Liquid via Cup,[place] Liquid via Cup,Honey Liquid via Spoon,Regular Textures Oral Phase Source: MBSIMP (TM) (C) Bolus Specific Scoring Grid Lip Closure No Impairment (WNL) Tongue Control During Bolus Hold Mild Impairment Bolus Prep/Mastication Moderate Impairment Bolus Transport/Lingual Motion No Impairment (WNL) A/P Lingual Propulsion Delay No Oral Residue Mild Impairment Residue Clearing No Impairment (WNL) Nasal Regurgitation No Additional Oral Phase Observations The pt exhibited no anterior loss of bolus and timely and efficient a/p propulsion of bolus. Difficulty controlling bolus during tongue hold, with loss of bolus to floor of mouth but not posterior loss of bolus observed. Mastication was slow and inefficient, characterized by mashing the cookie against the roof of her mouth, likely because she was not wearing her lower dentures. Pharyngeal Phase Source: MBSIMP (TM) (C) Bolus Specific Scoring Grid Delayed Initiation of Pharyngeal Swallow Yes: bolus head in pyriforms Soft Palate Elevation No Impairment (WNL) Tongue Base Strength/Range of Motion Mild Impairment Residue Along the Tongue Base Yes Clearance of Residue Along Tongue Base No Impairment (WNL) Laryngeal Elevation Mild Impairment Anterior Hyoid Movement No Impairment (WNL) Epiglottic Range of Motion No Impairment (WNL) Vallecular Residue Yes Clearance of Vallecular Residue No Impairment (WNL) Laryngeal Vestibular Closure Mild Impairment Pharyngeal Stripping Wave No Impairment (WNL) Pharyngeal Contraction No Impairment (WNL) Posterior Pharyngeal Wall Residue No Upper Esophageal Sphincter Opening No Impairment (WNL) Residue in the Pyriform Sinuses Yes: trace residue Clearance of Residue in the Pyriform No Impairment (WNL) Sinuses Esophageal Clearance Upright Position Mild Impairment Pharyngoesophageal Backflow Observed No Additional Pharyngeal Phase Observations Delayed pharyngeal swallow initiation, with the head of the bolus in the pyriforms. Epiglottic inversion was WNL and hyolaryngeal elevation and excursion was WNL. Laryngeal elevation and laryngeal vestibular closure were mildly impaired and penetration was observed with thin liquids x2 (PAS 2) and nectar thick liquids x2 (1 at PAS 2 and 1 at PAS 3). No penetration or aspiration observed with honey thick liquids. Trace residue noted in pyriforms and in valleculae, with increased residue noted on base of tongue. All residue was cleared WNL with a second swallow. Residue on base of tongue is likely due to reduced tongue base retraction . A/P View Textures Administered Trials Presented [place] Liquid via Cup,Barium Tablet A/P View Observations Pharyngeal Contraction No Impairment (WNL) Esophageal Function Slowed Clearing Esophageal Clearance Upright Position Mild Impairment Additional Observations Slowed clearing and residue noted with nectar thick liquid . Barium tablet moved slowly and required several drinks of water to clear. Clinical Impressions Dysphagia Type Oropharyngeal dysphagia Findings The pt presents with oropharyngeal dysphagia characterized by mastication inefficiency with solids, likely secondary to missing lower dentures, and impaired laryngeal vestibular closure resulting in penetration of thin and nectar thick liquids. Chin tuck was observed to be ineffective in improving swallow safety, though instances of penetration decreased with increased thickness of liquid. Recommend honey thick liquids and regular solids (when dentures are in). If dentures are not available, a dysphagia mechanical diet would be more suitable. Recommend referral for GI due to slowed clearing of bolus through esophagus and residue noted in esophagus following swallow. Recommend outpatient speech therapy to target oral motor exercises for improved swallow safety. Rehabilitation Potential Good Patient Appropriate for Therapy Yes Recommendations Diet Liquids Order Honey Diet Order Regular Medication Recommendation As Tolerated Aspiration Precautions Recommended Precautions Upright at 90 Degrees,Small Bites/Sips Treatment Plan Therapy Recommendations Outpatient Speech Therapy Recommended Referrals GI Consult Compensatory Strategies Recommendations Sitting Upright (90 deg),Small Bites and Sips Short Term Goals 1. The pt will perform safe swallow strategies with oral intake independently to reduce risk of aspiration. 2. The pt will perform exercises to increase strength , coordination, and ROM of swallow musculature independently to reduce risk of aspiration and increase comfort with oral intake. Nursing Home Goals The pt will safely tolerate least restrictive diet to meet her nutrition and hydration needs.
== END ==
PROVIDERS: PCP Family Medicine; Referring Provider Family Medicine; Visit Provider Family Medicine
DX: M51.16 Intervertebral disc disorders with radiculopathy, lumbar region (principal); Z98.1 Arthrodesis status
CPT/HCPCS: 72110

== ENCOUNTER → 2022-02-03 16:44 | Outpatient (CLI) | payer MEDICARE, MEDICAID, SELFPAY ==
[2022-02-03 18:06] LABS: Hematocrit 32.7 % (36-46); Hemoglobin 11.2 g/dL (12.0-16.0)
[2022-02-03 18:31] LABS: BUN Creatinine Ratio 19.6 (6-22); Blood Urea Nitrogen 27 mg/dL (7-17); Calcium 9.3 mg/dL (8.4-10.2); Carbon Dioxide 26 mmol/L (22-32); Chloride 107 mmol/L (98-107); Estimated Glomerular Filt Rate 39 mL/min (>60); Glucose 100 mg/dL (80-110); HEMOLYSIS < 15 (0-50); Potassium 4.4 mmol/L (3.4-5.1); Sodium 142 mmol/L (137-145)
[2022-02-03 19:28] LABS: Creatinine Urine Random 131.3 mg/dL; Microalbumi Creatinin Ratio Ur 240.6 ug/mg CR (<30); Microalbumin Urine Random 31.6 mg/dL (0-1.6)
[2022-02-04 06:18] LABS: Parathyroid Hormone Int 112 pg/mL (15-65)
== END ==
PROVIDERS: PCP Family Medicine; Referring Provider Family Medicine; Visit Provider Internal Medicine Nephrology
DX: I12.9 Hypertensive chronic kidney disease with stage 1 through stage 4 chronic kidney disease, or unspecified chronic kidney disease (principal); N18.32 Chronic kidney disease, stage 3b
CPT/HCPCS: 36415; 80048; 82043; 82570; 83970; 85014; 85018

== ENCOUNTER → 2022-02-26 11:09 | Outpatient (CLI) | payer MEDICARE, MEDICAID, SELFPAY ==
[2022-02-26 12:15] LABS: Appearance Urine UA CLEAR; Bilirubin Urine UA NEGATIVE (NEGATIVE); Color Urine UA YELLOW; Glucose Urine UA NEGATIVE (Negative); Ketones Urine UA NEGATIVE (NEGATIVE); Leukocyte Esterase Urine UA NEGATIVE (NEGATIVE); Nitrite Urine UA NEGATIVE (Negative); Occult Blood Urine UA 1+ (Negative); Protein Urine UA 1+ (Negative); Urobilinogen Urine UA 0.2 E.U./dL (0.2)
[2022-02-26 12:42] LABS: Bacteria Urine None Seen; Culture Indicated Urine Cult Not Indicated; RBC Urine 0-1/HPF (0-5/HPF); Squamous Epithelial Cell Urine 1-5 /HPF (0-5/HPF); WBC Urine 0-1/HPF (0-5/HPF)
== END ==
PROVIDERS: PCP Nurse Practitioner; Referring Provider Nurse Practitioner; Visit Provider Nurse Practitioner
DX: R30.0 Dysuria (principal)
CPT/HCPCS: 81001

== ENCOUNTER → 2022-05-04 12:54 | Outpatient (CLI) | payer MEDICARE, MEDICAID, SELFPAY ==
--- NOTE | 2022-05-04 12:56 | DI.MRI.S_ITS ---
PROCEDURE: MR LUMBAR SPINE WO CON INDICATIONS: Worsening back pain with sciatica TECHNIQUE: Noncontrast sagittal T1 spin echo and T2 fast echo, sagittal STIR, and T2 fast spin echo through the lumbar spine. In cases with scoliosis, additional coronal T2 fast spin echo may be performed. Metal suppression technique is used. COMPARISON: [facility], MR, MR LUMBAR SPINE W&WO CON, 11/10/2015, 15:02. [facility], MR, L-SPINE WITH AND WITHOUT CONTR, 10/31/2009, 12:48. [facility], MR, LUMBAR SPINE W&W/O CONTRAST, 03/31/2012, 17:05. [facility], MR, LUMBAR SPINE W&W/O CONTRAST, 04/16/2011, 14:56. [facility], CT, CT KIDNEY URETER BLADDER (KUB), 07/28/2021, 15:58. [facility], CR, XR LUMBAR SPINE 2-3V, 12/09/2021, 12:38. [facility], CT, CT LOW DOSE LUNG CA SCREENING, 04/28/2022, 7:42. FINDINGS: Image quality: There is artifact associated with the metallic hardware. Alignment and Curvature: S-shaped scoliotic curvature is seen. There is minimal retrolisthesis at T12-L1, with minimal retrolisthesis at L1-L2. Minimal retrolisthesis is seen at L2-L3, with minimal anterolisthesis at L3-L4. Bone Marrow: Marrow is of normal overall signal. Scattered foci are seen, which are hyperintense on T1-weighted and T2-weighted imaging, which are most consistent with benign vertebral body hemangiomas. No acute vertebral body compression fractures. Spinal Cord: Conus medullaris terminates at the L1 level. Visualized cord demonstrates normal signal and size. Paraspinous Soft Tissues: No paravertebral masses. Renal cysts are seen. Extensive postoperative changes are seen, with bilateral pedicle screws at L1 through L4. Disc fusion devices are seen at L4-L5 and L5-S1. There has been removal of portions of the posterior elements. Bone grafting material is noted. 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 This is similar to the prior 2011 examination. T11-T12: At least moderate loss of disc height and disc signal can be seen. Mild to moderate disc bulge is seen. There is a superimposed central disc protrusion. Moderate bilateral neural foraminal narrowing is seen. Moderate central canal narrowing is seen. T12-L1: Moderate to severe loss of disc height and disc signal can be seen. Reactive marrow endplate changes are seen, which are hyperintense on T1-weighted and T2-weighted imaging and most consistent with fatty metaplasia (Modic type II changes). At least moderate disc bulge is seen, which is eccentric to the right. Mild to moderate facet hypertrophy is seen. There is at least moderate bilateral neural foraminal narrowing seen. Moderate central canal narrowing is seen. These imaging findings have progressed compared to the prior study. L1-L2: Moderate loss of disc height is seen. Loss of disc signal is seen. Mild generalized disc bulge is seen. Moderate bilateral neural foraminal narrowing is seen. No central canal narrowing is seen. These imaging findings have progressed compared to the prior study. L2-L3: Moderate to severe loss of disc height and disc signal can be seen. Mild to moderate disc bulge is seen. There is moderate right-sided and minimal left-sided neural foraminal narrowing. The central canal is widely patent. When comparison is made with the prior images, these findings are similar. L3-L4: At least moderate loss of disc height and disc signal can be seen on the right. Mild to moderate disc bulge is seen. At least moderate facet hypertrophy is seen at this level. Mild bilateral neural foraminal narrowing is seen. Mild central canal narrowing is seen. There is mild progression compared to the prior. L4-L5: Mild generalized disc bulge is seen. Moderate facet joint hypertrophy is seen. No significant neural foraminal or central canal narrowing can be seen. Stable from the prior study. L5-S1: Mild generalized disc bulge is seen. Mild facet joint hypertrophy is seen. No significant neural foraminal or central canal narrowing can be seen. Stable from the prior study. IMPRESSION: Extensive postoperative change can be seen. Multiple levels of degenerative change are seen, which are overall mildly progressed to 2016. Dictated by: Elvis Michele M.D. on 05/04/2022 at 14:19 Approved by: Elvis Michele M.D. on 05/04/2022 at 14:28
--- NOTE | 2022-05-04 13:28 | DI.RAD.S_ITS ---
PROCEDURE: FL BARIUM SWALLOW W SPEECH INDICATIONS: difficulty swallowing COMPARISON: None. TECHNIQUE: Examination was conducted in conjunction with speech pathology per standard protocol. In the lateral projection, filming was performed of the patient swallowing. AP projection filming may also be performed with patient swallowing. COMPARISON: FINDINGS: Function: The oral preparatory phase appears normal, with proper containment. The subsequent oral propulsive phase, pharyngeal phase, and esophageal phase of swallowing also appear normal with all proffered substances. Penetration is seen throughout swallowing of thin liquid and nectar with she does not improve with chin tuck technique. No pathologic vallecular pooling. Morphology: No cricopharyngeal bar is identified. No cervical esophageal webs. No Zenker's diverticulum. No strictures. IMPRESSION: Penetration noted during swallowing as described above. Please correlate with speech pathology report for more detailed findings. Dictated by: Vimal Cummings M.D. on 05/04/2022 at 14:05 Approved by: Vimal Cummings M.D. on 05/04/2022 at 14:10
--- NOTE | 2022-05-04 14:30 | ST.SWALLOW ---
Visit Care Team Role Provider Type HAMZAH Navas Attending Provider Advanced [employer] Project Manager Family Provider Primary Care Provider Referring Provider Specialty: Family Practice Address: [address] [place] [address], [id number] Email: [email or web address] Modified Barium Swallow Study DEMAND INSPECTOR Modified Barium Swallow Study Start: 05/27/22 12:21 Freq: Status: Active Protocol: Document 05/04/22 14:30 ZS (Rec: 05/27/22 12:26 ZS [id number]) Modified Barium Swallow Study Total Time Visit Start Time 13:30 Visit Stop Time 14:00 Total Visit Minutes 30 Setting Setting Outpatient Care Patient Information Identification Type Name Patient History Janet is a 77-year-old female referred for a modified barium swallow study due to difficulties swallowing since her ACDF surgery about 10-15 years ago. Pt reported her throat feels like it is closed and she needs to drink water to open her throat so she can breathe. She added this has been going on for the past 10-15 years and worsened over the past 5 years. Janet stated it feels like things get stuck and she cannot swallow. Pt wears lower dentures, which she did not have in for this appointment. Subjective Observations Janet arrived on time, pushed in a wheelchair due to vertigo that negatively impacted her balance and ability to ambulate independently. Patient Positioning Position View Lat-A/P Imaging Lateral View Textures Administered Trials Presented Thin Liquid via Cup,Trilla Liquid via Cup,Honey Liquid via Spoon,Regular Textures Oral Phase Source: MBSIMP (TM) (C) Bolus Specific Scoring Grid Lip Closure No Impairment (WNL) Tongue Control During Bolus Hold Mild Impairment Bolus Prep/Mastication Moderate Impairment Bolus Transport/Lingual Motion No Impairment (WNL) A/P Lingual Propulsion Delay No Oral Residue Mild Impairment Residue Clearing No Impairment (WNL) Nasal Regurgitation No Additional Oral Phase Observations The pt exhibited no anterior loss of bolus and timely and efficient a/p propulsion of bolus. Difficulty controlling bolus during tongue hold, with loss of bolus to floor of mouth but not posterior loss of bolus observed. Mastication was slow and inefficient, characterized by mashing the cookie against the roof of her mouth, likely because she was not wearing her lower dentures. Pharyngeal Phase Source: MBSIMP (TM) (C) Bolus Specific Scoring Grid Delayed Initiation of Pharyngeal Swallow Yes: bolus head in pyriforms Soft Palate Elevation No Impairment (WNL) Tongue Base Strength/Range of Motion Mild Impairment Residue Along the Tongue Base Yes Clearance of Residue Along Tongue Base No Impairment (WNL) Laryngeal Elevation Mild Impairment Anterior Hyoid Movement No Impairment (WNL) Epiglottic Range of Motion No Impairment (WNL) Vallecular Residue Yes Clearance of Vallecular Residue No Impairment (WNL) Laryngeal Vestibular Closure Mild Impairment Pharyngeal Stripping Wave No Impairment (WNL) Pharyngeal Contraction No Impairment (WNL) Posterior Pharyngeal Wall Residue No Upper Esophageal Sphincter Opening No Impairment (WNL) Residue in the Pyriform Sinuses Yes Clearance of Residue in the Pyriform No Impairment (WNL) Sinuses Esophageal Clearance Upright Position Mild Impairment Pharyngoesophageal Backflow Observed No Additional Pharyngeal Phase Observations Delayed pharyngeal swallow initiation, with the head of the bolus in the pyriforms. Epiglottic inversion was WNL and hyolaryngeal elevation and excursion was WNL. Laryngeal elevation and laryngeal vestibular closure were mildly impaired and penetration was observed with thin liquids x2 (PAS 2) and nectar thick liquids x2 (1 at PAS 2 and 1 at PAS 3). No penetration or aspiration observed with honey thick liquids. Trace residue noted in pyriforms and in valleculae, with increased residue noted on base of tongue. All residue was cleared WNL with a second swallow. Residue on base of tongue is likely due to reduced tongue base retraction . A/P View Textures Administered Trials Presented Trilla Liquid via Cup,Barium Tablet A/P View Observations Pharyngeal Contraction No Impairment (WNL) Esophageal Function Slowed Clearing Esophageal Clearance Upright Position Mild Impairment Additional Observations Slowed clearing and residue noted with nectar thick liquid . Barium tablet moved slowly and required several drinks of water to clear. Clinical Impressions Dysphagia Type Oropharyngeal dysphagia Findings The pt presents with oropharyngeal dysphagia characterized by mastication inefficiency with solids, likely secondary to missing lower dentures, and impaired laryngeal vesitublar closure resulting in penetration of thin and nectar thick liquids. Chin tuck was observed to be ineffective in improving swallow safety, though instances of penetration decreased with increased thickness of liquid. Recommend honey thick liquids and regular solids (when dentures are in). If dentures are not available, a dysphagia mechanical diet would be more suitable. Recommend referral for GI due to slowed clearing of bolus through esophagus and residue noted in esophagus following swallow. Recommend outpatient speech therapy to target oral motor exercises for improved swallow safety. Rehabilitation Potential Good Patient Appropriate for Therapy Yes Recommendations Diet Liquids Order Honey Diet Order Regular Medication Recommendation As Tolerated Aspiration Precautions Recommended Precautions Upright at 90 Degrees,Small Bites/Sips Treatment Plan Therapy Recommendations Outpatient Speech Therapy Recommended Referrals GI Consult Compensatory Strategies Recommendations Sitting Upright (90 deg),Small Bites and Sips Short Term Goals 1. The pt will perform safe swallow strategies with oral intake independently to reduce risk of aspiration. 2. The pt will perform exercises to increase strength , coordination, and ROM of swallow musculature independently to reduce risk of aspiration and increase comfort with oral intake. Staff Antisubmarine Officer Goals The pt will safely tolerate least restrictive diet to meet her nutrition and hydration needs.
== END ==
PROVIDERS: Family Provider Nurse Practitioner; PCP Nurse Practitioner; Referring Provider Nurse Practitioner; Visit Provider Nurse Practitioner
DX: R13.10 Dysphagia, unspecified (principal); M51.16 Intervertebral disc disorders with radiculopathy, lumbar region; M54.50 Low back pain, unspecified
CPT/HCPCS: 72148; 74230; 92611

== ENCOUNTER 2022-06-14 16:44 | Emergency (ER) | payer MEDICARE, MEDICAID, SELFPAY ==
[2022-06-14] VITALS (12 sets, daily range): BP systolic 136–161; BP diastolic 72–97; PULSE 57–78; RESP 17–42; TEMP 36.6; O2SAT 93–97
--- NOTE | 2022-06-14 17:13 | DI.RAD.S_ITS ---
PROCEDURE: XR CHEST 1V INDICATIONS: chest pain TECHNIQUE: One view of the chest was acquired. COMPARISON: [facility], CR, XR CHEST 2V, 03/03/2021, 15:30. FINDINGS: Surgical changes and devices: None. Lungs and pleura: Lungs are clear. No pleural effusions or pneumothorax. Mediastinum: Mediastinal contours appear normal. Heart size is normal. The aorta is tortuous. Bones and chest wall: No suspicious bony lesions. Overlying soft tissues appear unremarkable. IMPRESSION: No acute cardiopulmonary abnormality. Dictated by: Cl Winter M.D. on 06/14/2022 at 17:29 Approved by: Cl Winter M.D. on 06/14/2022 at 17:30
[2022-06-14 18:04] LABS: Add Manual Diff / Slide Review NO; Basophils Absolute Auto 100 /uL (0-100); Basophils Percent Auto 0.8 % (0-2); Eosinophils Absolute Auto 200 /uL (0-450); Eosinophils Percent Auto 3.5 % (2-4); Hematocrit 35.3 % (36-46); Lymphocytes Absolute Auto 1200 /uL (1100-4500); Lymphocytes Percent Auto 17.2 % (25-40); Mean Corpuscular Hemoglobin 28.8 PG (26-34); Mean Corpuscular Volume 84.7 fL (80-100); Monocytes Absolute Auto 600 /uL (0-900); Monocytes Percent Auto 8.9 % (3-14); Neutrophils Absolute Auto 4800 /uL (1500-7000); Neutrophils Percent Auto 69.6 % (50-75); Platelet Count 254 X10^3/uL (150-400); Red Blood Cell Count 4.17 X10^6/uL (4.0-5.2); Red Cell Distribution Width 14.3 % (11.6-14.8); White Blood Cell Count 6.8 X10^3/uL (4.5-11.0)
[2022-06-14 18:16] LABS: Alanine Aminotransferase 18 IU/L (<35); Albumin 4.4 g/dL (3.5-5.0); Albumin Globulin Ratio 1.1 (1.0-2.8); Alkaline Phosphatase 102 U/L (38-126); Aspartate Aminotransferase 27 IU/L (14-36); BUN Creatinine Ratio 19.8 (6-22); Bilirubin Total 0.6 mg/dL (0.2-1.3); Blood Urea Nitrogen 26 mg/dL (7-17); Calcium 9.5 mg/dL (8.4-10.2); Carbon Dioxide 26 mmol/L (22-32); Chloride 105 mmol/L (98-107); Creatine Kinase 87 U/L (30-135); Estimated Glomerular Filt Rate 42 mL/min (>60); Glucose 91 mg/dL (80-110); HEMOLYSIS < 15 (0-50); Lipase 39 U/L (23-300); Potassium 4.2 mmol/L (3.4-5.1); Sodium 140 mmol/L (137-145); Total Protein 8.4 g/dL (6.3-8.2)
[2022-06-14 18:28] LABS: NT-proBNP (BNP-Adult 18+) 571 pg/mL (<450); Troponin I < 0.012 ng/mL (0.01-0.034)
--- NOTE | 2022-06-14 19:01 | ED_ITS ---
HPI - SOB/Dyspnea General Chief Complaint: Shortness of Breath/Dyspnea Stated Complaint: Swollen legs, SOB, High BP Time Seen by Provider: 06/14/22 17:49 Source: patient Mode of arrival: Wheelchair History of Present Illness HPI Narrative: Patient is a 77-year-old female history of atrial fibrillation on Eliquis, COPD, former smoker, chronic pain syndrome, on Suboxone presenting today with lower extremity swelling. She says she previously had some sort of a vein surgery about 7 months ago at [facility]. The she says she has not had any problems with her leg swelling in till 3 days ago. She notices that when she elevates her legs the swelling goes down. She has had chronic shortness of breath worse with exertion she denies any orthopnea. She says she usually gets around by walker because she falls frequently she has not fallen. She reports that she has Lasix at home but has not taken it due to her renal function. She denies any productive cough Related Data Home Medications Medication Instructions Recorded Confirmed furosemide 40 mg tablet 40 mg PO QAM PRN edema 05/25/21 06/14/22 tiotropium 2.5 mcg-olodaterol 2.5 2 puff inhalation BID 05/25/21 03/16/22 mcg/actuation mist for inhalation zaleplon 10 mg capsule 10 mg PO BEDTIME PRN 05/25/21 03/16/22 buprenorphine 8 mg-naloxone 2 mg 3 film sublingual DAILY 02/25/22 06/14/22 sublingual film (Suboxone) olmesartan 20 mg tablet 20 mg PO DAILY 05/13/22 05/13/22 Previous Rx's Medication Instructions Recorded Disabled Parking Permit #1 ea 06/07/19 nitroglycerin 0.4 mg sublingual See Rx Instructions .Route 09/02/21 tablet .COMPLEX ##25 methocarbamol 500 mg tablet See Rx Instructions .Route 02/18/22 .COMPLEX #120 tabs apixaban 5 mg tablet (Eliquis) 5 mg PO BID #60 tabs 03/16/22 carvedilol 25 mg tablet (Coreg) See Rx Instructions PO BID #30 tabs 03/16/22 duloxetine 60 mg capsule,delayed 120 mg PO DAILY #60 caps 03/16/22 release prednisolone 5 mg (21 tabs) See Rx Instructions PO PER PKG DIR 03/16/22 tablets in a dose pack #21 ea starch (thickening) (Instant Food See Rx Instructions PO .COMPLEX 05/13/22 Thickener oral powder) #1,020 grams Allergies Allergy/AdvReac Type Severity Reaction Status Date / Time ipratropium [From Atrovent] Allergy Intermediate voice spasm Verified 06/14/22 17:11 ciprofloxacin AdvReac Intermediate FLUSHING, Verified 06/14/22 17:11 SWEATS, SOB citalopram [CITALOPRAM] AdvReac Intermediate Hallucinati Verified 06/14/22 17:11 ons cyclobenzaprine AdvReac Intermediate FLUSHING, Verified 06/14/22 17:11 SWEATS, SOB pregabalin AdvReac Intermediate FLUSHING/SW Verified 06/14/22 17:11 EATS/SOB Review of Systems Review of Systems Narrative: GENERAL: Denies chills, fatigue, malaise, fever, sweats, travel HEENT: Denies sinus pain, ear pain, sore throat, difficulty swallowing, neck pain RESPIRATORY: See HPI CARDIOVASCULAR: Denies chest pain, palpitations, orthopnea, edema GASTROINTESTINAL: Denies nausea, vomiting, abdominal pain, diarrhea, constipation, melena. : Denies dysuria, frequency, incontinence, hematuria, urinary retention, flank pain. MUSCULOSKELETAL: + lower extremity edema Denies weakness, joint pain, or bony pain SKIN: No rash, no erythema, no pruritus NEUROLOGIC: Denies weakness, dizziness, headache, numbness, change in speech, confusion PSYCHIATRIC: No concerning psychosocial issues. 12 point review of systems is negative except for those stated above and HPI Patient History Medical History (Updated 06/14/22 @ 21:17 by Fadumo Carr DO) Abnormal Pap smear of cervix (~1956) ADD (attention deficit disorder) ADD (attention deficit disorder) Anemia Ankle pain Anxiety Arachnoiditis Atrial fibrillation Bilirubin in urine Cataracts, bilateral Cervical spine disease Chronic back pain Class 1 obesity due to excess calories with body mass index (BMI) of 34.0 to 34.9 in adult COPD (chronic obstructive pulmonary disease) Cystic fibrosis (~1956) Degenerative joint disease (DJD) of lumbar spine Depression Depression Dysphagia Dysphagia Encounter for Medicare annual wellness exam Fibromyalgia Fibromyalgia Foot pain Frequent falls GERD (gastroesophageal reflux disease) GI bleeding Heavy menstrual period Hypertension Kidney stones Loss of voice Osteoporosis Peripheral neuropathy Pneumonia Post traumatic stress disorder (PTSD) Raynaud's disease without gangrene Restless leg syndrome Rheumatoid arthritis Right leg injury Sciatica Scoliosis Screening for malignant neoplasm of colon Severe 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, without psychotic features (07/05/16) Skin cancer (~1996) Stroke UTI (urinary tract infection) Venous stasis Vertigo (~1968) Surgical History History of back surgery History of hip replacement History of knee replacement (11/29/16) History of neck surgery S/P total abdominal hysterectomy and bilateral salpingo-oophorectomy Status post appendectomy Status post bunionectomy (08/11/15) Status post cholecystectomy Status post tonsillectomy and adenoidectomy Status post tubal ligation Social History marital status: Smoking Status: Former smoker alcohol intake: never substance use type: does not use Smoking Status: Former smoker alcohol intake frequency: 0-2 drinks per day Substance Use Type: does not use, former substance user and prescription drug Exam Initial Vital Signs Initial Vital Signs: Vital Signs Temperature 98 F 06/14/22 17:08 Pulse Rate 68 06/14/22 17:08 Respiratory Rate 17 06/14/22 17:08 Blood Pressure 140/85 06/14/22 17:08 Pulse Oximetry 95 06/14/22 17:08 Oxygen Delivery Method 06/14/22 17:08 GENERAL: Alert pleasant 77-year-old female and in no acute distress. HEENT: Head atraumatic,EOMI, pupils reactive, face symmetric, moist mucous membranes CARDIOVASCULAR: Regular rate and rhythm without murmurs, rubs or gallops. RESPIRATORY: Breath sounds equal bilaterally, no wheezes rales or rhonchi.No rales or crackles speaks in full sentences without difficulty ABDOMEN: Soft, nontender. Normoactive bowel sounds all 4 quadrants. No guarding or rebound. EXTREMITIES: Normal range of motion, no clubbing or edema. Neurovascularly intact NEUROLOGICAL: Alert and oriented x4.Normal gait and speech. SKIN: Warm, dry, no laceration, no petechiae, no rashes or lesions. Course Orders Ordered: ED Orders 06/14/22 17:11 EKG-12 Lead Stat 06/14/22 17:13 XR chest 1V Stat 06/14/22 17:54 BNP [NT-proBNP (BNP-Adult 18+)] Stat Complete Blood Count AUTO DIFF Stat Comprehensive Metabolic Panel Stat Lipase Stat Magnesium Stat Troponin & CK Cardiac Panel Stat 06/14/22 19:53 Trop I [Troponin I] Stat 06/14/22 20:02 COVID19 -Nasal RAPID/Pre-Proc Stat Vital Signs Vital signs: Vital Signs - 8 hr 06/14/22 17:08 Temperature 98 F Pulse Rate 68 Respiratory Rate 17 Blood Pressure 140/85 Pulse Oximetry 95 Oxygen Delivery Method Room Air MDM - SOB/Dyspnea Lab Data Result diagrams: 06/14/22 17:54 06/14/22 17:54 Labs: Lab Results 06/14/22 06/14/22 06/14/22 Range/Units 17:54 17:54 19:53 WBC 6.8 (4.5-11.0) X10^3/uL RBC 4.17 (4.0-5.2) X10^6/uL Hgb 12.0 (12.0-16.0) g/dL Hct 35.3 L (36-46) % MCV 84.7 (80-100) fL MCH 28.8 (26-34) PG MCHC 34.0 (30-36) % RDW 14.3 (11.6-14.8) % Plt Count 254 (150-400) X10^3/uL Neut % (Auto) 69.6 (50-75) % Lymph % (Auto) 17.2 L (25-40) % Clare % (Auto) 8.9 (3-14) % Eos % (Auto) 3.5 (2-4) % Baso % (Auto) 0.8 (0-2) % Neut # (Auto) 4800 (6589-0899) /uL Lymph # (Auto) 1200 (8418-5164) /uL Clare # (Auto) 600 (0-900) /uL Eos # (Auto) 200 (0-450) /uL Baso # (Auto) 100 (0-100) /uL Sodium 140 (137-145) mmol/L Potassium 4.2 (3.4-5.1) mmol/L Chloride 105 (98-107) mmol/L Carbon Dioxide 26 (22-32) mmol/L BUN 26 H (7-17) mg/dL Creatinine 1.31 H (0.52-1.04) mg/dL Estimated GFR 42 L (>60) mL/min BUN/Creatinine Ratio 19.8 (6-22) Glucose 91 (80-110) mg/dL Calcium 9.5 (8.4-10.2) mg/dL Magnesium 2.0 (1.6-2.3) mg/dL Total Bilirubin 0.6 (0.2-1.3) mg/dL AST 27 (14-36) IU/L ALT 18 (<35) IU/L Alkaline Phosphatase 102 (38-126) U/L Total Creatine Kinase 87 (30-135) U/L CK-MB (CK-2) TNP CK-MB (CK-2) Rel Index TNP Troponin I < 0.012 < 0.012 (0.01-0.034) ng/mL NT-Pro-B Natriuret Pep 571 H (<450) pg/mL Total Protein 8.4 H (6.3-8.2) g/dL Albumin 4.4 (3.5-5.0) g/dL Globulin 4.0 (1.7-4.1) g/dL Albumin/Globulin Ratio 1.1 (1.0-2.8) Lipase 39 (23-300) U/L SARS-CoV-2 (PCR) (Negative) 06/14/22 Range/Units 20:02 WBC (4.5-11.0) X10^3/uL RBC (4.0-5.2) X10^6/uL Hgb (12.0-16.0) g/dL Hct (36-46) % MCV (80-100) fL MCH (26-34) PG MCHC (30-36) % RDW (11.6-14.8) % Plt Count (150-400) X10^3/uL Neut % (Auto) (50-75) % Lymph % (Auto) (25-40) % Clare % (Auto) (3-14) % Eos % (Auto) (2-4) % Baso % (Auto) (0-2) % Neut # (Auto) (3429-0289) /uL Lymph # (Auto) (2888-0936) /uL Clare # (Auto) (0-900) /uL Eos # (Auto) (0-450) /uL Baso # (Auto) (0-100) /uL Sodium (137-145) mmol/L Potassium (3.4-5.1) mmol/L Chloride (98-107) mmol/L Carbon Dioxide (22-32) mmol/L BUN (7-17) mg/dL Creatinine (0.52-1.04) mg/dL Estimated GFR (>60) mL/min BUN/Creatinine Ratio (6-22) Glucose (80-110) mg/dL Calcium (8.4-10.2) mg/dL Magnesium (1.6-2.3) mg/dL Total Bilirubin (0.2-1.3) mg/dL AST (14-36) IU/L ALT (<35) IU/L Alkaline Phosphatase (38-126) U/L Total Creatine Kinase (30-135) U/L CK-MB (CK-2) CK-MB (CK-2) Rel Index Troponin I (0.01-0.034) ng/mL NT-Pro-B Natriuret Pep (<450) pg/mL Total Protein (6.3-8.2) g/dL Albumin (3.5-5.0) g/dL Globulin (1.7-4.1) g/dL Albumin/Globulin Ratio (1.0-2.8) Lipase (23-300) U/L SARS-CoV-2 (PCR) Negative (Negative) Imaging Data Chest x-ray: Radiologist's Impression: Signed Patient: Janet Paris MR#: [id number] : 1945 Acct:[id number] Age/Sex: 77 / F Date of Service: 06/14/22 Loc: ED Accession Number: [id number] ?? Procedure: XR chest 1V Ordering Provider: Tod Castellanos D.O. PROCEDURE:? XR CHEST 1V ? INDICATIONS:? chest pain ? TECHNIQUE:? One view of the chest was acquired.? ? COMPARISON:? [facility], , XR CHEST 2V, 03/03/2021, 15:30. ? FINDINGS:? ? Surgical changes and devices:? None.? ? Lungs and pleura:? Lungs are clear.? No pleural effusions or pneumothorax.? ? Mediastinum:? Mediastinal contours appear normal.? Heart size is normal.? The aorta is tortuous. ? Bones and chest wall:? No suspicious bony lesions.? Overlying soft tissues appear unremarkable.? ? IMPRESSION:? No acute cardiopulmonary abnormality. ? ? ? Dictated by: Cl Winter M.D. on 06/14/2022 at 17:29 ? ? Approved by: Cl Winter M.D. on 06/14/2022 at 17:30 ? ECG Data Interpretation: Normal sinus rhythm rate 61 CA interval 184 QRS [address] changes MDM Narrative Medical decision making narrative: Patient is here with some shortness of breath and lower extremity edema. Sounds as though she may have some prior CHF or lower extremity edema she has had a standing prescription of furosemide at home. However she has had 2 episodes of chest discomfort over the last 2 days which was relieved by nitroglycerin and she had a 3rd episode today but she did not take nitroglycerin for. She has no EKG changes she has 2- troponins. Cardiology was consulted who state that she can follow up with her doctor does not sound like typical cardiac pain or CAD. Patient has been chest pain-free the entire time while in the emergency department. She has no obvious respiratory distress at this time does not needed dose of Lasix here in the ED but can start taking it tomorrow. She is unlikely a pulmonary embolism because she is on Eliquis. No evidence infection on blood work or x-ray. Dr. Delgado cardiology consult and updated on patient's symptoms test results recommends outpatient follow-up with primary signal and communications maintainer Discharge Plan Departure Patient Disposition: Home Clinical Impression: Congestive heart failure Instructions: DI for Heart Failure Activity Restrictions/Additional Instructions: *You have been diagnosed with congestive heart failure *What to do: At this time her legs are swollen possibly due to some fluid. However we do not have fluid on her lungs. Please follow-up with your signal and communications maintainer *Continue to take medications as directed Lasix 40 mg once a day for 3 days only, please have your kidney function and electrolytes checked at the end of the week with either your signal and communications maintainer or your PCP *Follow up with your primary care provider in 2-3 days or call [phone] *Return to ER if you should have increasing chest discomfort shortness of breath or legs or any new, worsening or concerning symptoms Prescriptions: No Action (DME) Disabled Parking Permit Qty: 1 0RF Rx Instructions: I find this person to be disabled nitroglycerin 0.4 mg tablet, sublingual See Rx Instructions .ROUTE .COMPLEX Qty: 25 1RF Dose Instruction: Dissolve 1 tablet under tongue every 5-15 minutes up to 3 times for chest pain. If persists, call 911. Rx Instructions: Dissolve 1 tablet under tongue every 5-15 minutes up to 3 times for chest pain. If persists, call 911. methocarbamol 500 mg tablet See Rx Instructions .ROUTE .COMPLEX Qty: 120 1RF Dose Instruction: TAKE 2 TABLETS BY MOUTH TWICE DAILY NEEDED FOR CHRONIC PAIN Rx Instructions: TAKE 2 TABLETS BY MOUTH TWICE DAILY NEEDED FOR CHRONIC PAIN zaleplon 10 mg capsule 10 mg PO BEDTIME PRN Rx Instructions: must avoid high-fat meal/food immediately before taking dose tiotropium-olodaterol 2.5-2.5 mcg/actuation mist 2 puff inhalation BID buprenorphine-naloxone [Suboxone] 8-2 mg film 3 film sublingual DAILY Rx Instructions: place 1 strip/tab under (each) side of tongue Eliquis 5 mg tablet 5 mg PO BID Qty: 60 11RF Rx Instructions: Take 1 tab twice per day for anticoagulation carvedilol [Coreg] 25 mg tablet See Rx Instructions PO BID Qty: 30 11RF Rx Instructions: take 0.5 tablet (12.5 mg total) PO BID PO twice a day; must administer with a meal/food duloxetine 60 mg capsule,delayed release(DR/EC) 120 mg PO DAILY Qty: 60 11RF Rx Instructions: Take 2 tabs daily for depression prednisolone 5 mg (21 tabs) tablets,dose pack See Rx Instructions PO PER PKG DIR Qty: 21 0RF Rx Instructions: Take 5 5mg tabs x1 day, then 4 5mg tabs 2nd day then 3 5mg tabs 3rd day then 2 5mg tabs 4th day then 1 5mg tab then d/c Instant Food Thickener Powder See Rx Instructions PO .COMPLEX Qty: 1020 3RF Rx Instructions: Add to fluids to achieve nectar consistency for swallowing assi stance/dysphagia orally; olmesartan 20 mg tablet 20 mg PO DAILY furosemide 40 mg tablet 40 mg PO QAM PRN (Reason: edema) Referrals: Yvonne Calabrese ARNP [Primary Care Provider] - Visit Report Forms: Patient Portal/API
[2022-06-14 20:22] LABS: Troponin I < 0.012 ng/mL (0.01-0.034)
[2022-06-14 21:25] LABS: COVID19 -Nasal RAPID Negative (Negative)
== END 2022-06-14 21:00 | disposition home or self-care (01) ==
PROVIDERS: Emergency Medicine; Emergency Provider Emergency Medicine; Family Provider Nurse Practitioner; PCP Nurse Practitioner
DX: I50.9 Heart failure, unspecified (principal); R07.9 Chest pain, unspecified; R60.9 Edema, unspecified; I48.91 Unspecified atrial fibrillation; Z79.01 Long term (current) use of anticoagulants; Z20.822 Contact with and (suspected) exposure to COVID-19
CPT/HCPCS: 36415; 71045; 80053; 82550; 83690; 83735; 83880; 84484; 85025; 87635; 93005; 93010; 99284; C9803

== ENCOUNTER → 2022-07-15 13:44 | Outpatient (CLI) | payer MEDICARE, MEDICAID, SELFPAY ==
[2022-07-15 15:17] LABS: COVID19 -Nasal RAPID POSITIVE (Negative)
== END ==
PROVIDERS: Family Provider Nurse Practitioner; PCP Nurse Practitioner; Referring Provider Internal Medicine; Visit Provider Internal Medicine
DX: U07.1 COVID-19 (principal)
CPT/HCPCS: 87635; C9803

== ENCOUNTER → 2022-07-23 16:33 | Outpatient (CLI) | payer MEDICARE, MEDICAID, SELFPAY ==
--- NOTE | 2022-07-23 16:37 | DI.RAD.S_ITS ---
PROCEDURE: XR CHEST 2V INDICATIONS: covid last wk. SOB decreased air movement in lower lobes TECHNIQUE: 2 views of the chest were acquired. COMPARISON: [facility], CR, XR CHEST 1V, 06/14/2022, 17:13. [facility], CR, XR LUMBAR SPINE 2-3V, 12/09/2021, 12:38. FINDINGS: Surgical changes and devices: Cervical fusion hardware, lumbar fusion hardware Lungs and pleura: Rotated film. Diffuse interstitial prominence. No gross infiltrates No pleural effusions or pneumothorax. Mediastinum: Mediastinal contours are normal. Mild cardiomegaly. Bones and chest wall: No suspicious bony abnormalities. Soft tissues appear unremarkable. IMPRESSION: Rotated film. No gross infiltrates. Dictated by: Andi Segura M.D. on 07/23/2022 at 16:59 Approved by: Andi Segura M.D. on 07/23/2022 at 17:00
== END ==
PROVIDERS: Family Provider Nurse Practitioner; PCP Nurse Practitioner; Referring Provider Family Medicine; Visit Provider Family Medicine
DX: R06.02 Shortness of breath (principal); Z86.16 Personal history of COVID-19
CPT/HCPCS: 71046

== ENCOUNTER → 2022-08-06 13:15 | Outpatient (CLI) | payer MEDICARE, MEDICAID, SELFPAY ==
[2022-08-06 14:24] LABS: COVID19 -Nasal RAPID Negative (Negative)
--- NOTE | 2022-08-11 10:37 | PM.PFT.1 ---
Pulmonary Function Test Referral & Results Date Patient Seen: 08/06/22 Requesting provider: Yvonne Calabrese Results: The spirometry demonstrates an FVC of 2.24 L which is 82% of predicted. The FEV1 was measured at 1.63 L which is 80% of predicted. The FEV1/FVC ratio was 73 which is 98% of predicted. Following the administration of bronchodilator there was a 47% improvement in FEF 25-75%. Lung volumes show an SVC of 2.29 L which is 84% of predicted. The diffusing capacity was measured at 19.33 which is 79% of predicted. No hemoglobin value was provided, so no correction for potential anemia could be made, if appropriate. The maximum voluntary ventilation was reduced Interpretation: This study demonstrates possible mild obstructive lung disease based on reduction FEV1 and improvement in small airway flow after bronchodilator as demonstrated by the improved FEF 25-75% number. There is also minimal reduction in lung volumes which may possibly explain a portion of the reduced FEV1 There is also very mild reduction in diffusing capacity suggesting the possibility of disease at the capillary alveolar level Compared to PFTs performed in July 2020, current study is essentially unchanged Clinical correlation suggested
== END ==
PROVIDERS: Family Provider Nurse Practitioner; PCP Nurse Practitioner; Referring Provider Nurse Practitioner; Visit Provider Nurse Practitioner
DX: J44.9 Chronic obstructive pulmonary disease, unspecified (principal); Z87.891 Personal history of nicotine dependence; Z20.822 Contact with and (suspected) exposure to COVID-19
CPT/HCPCS: 87635; 94060; 94726; 94729; C9803

== ENCOUNTER → 2022-09-01 13:41 | Outpatient (CLI) | payer MEDICARE, MEDICAID, SELFPAY ==
[2022-09-01 14:24] LABS: Hematocrit 36.2 % (36-46); Hemoglobin 11.9 g/dL (12.0-16.0)
[2022-09-01 14:46] LABS: BUN Creatinine Ratio 16.5 (6-22); Blood Urea Nitrogen 22 mg/dL (7-17); Calcium 9.3 mg/dL (8.4-10.2); Carbon Dioxide 26 mmol/L (22-32); Chloride 105 mmol/L (98-107); Estimated Glomerular Filt Rate 41 mL/min (>60); Glucose 96 mg/dL (80-110); HEMOLYSIS < 15 (0-50); Potassium 4.3 mmol/L (3.4-5.1); Sodium 140 mmol/L (137-145)
[2022-09-01 16:02] LABS: Creatinine Urine Random 90.2 mg/dL
[2022-09-01 16:23] LABS: Microalbumi Creatinin Ratio Ur 330.3 ug/mg CR (<30); Microalbumin Urine Random 29.8 mg/dL (0-1.6)
[2022-09-02 17:28] LABS: Hep C Virus Ab w/Reflex Quant NEGATIVE s/c (NEGATIVE)
== END ==
PROVIDERS: Family Provider Nurse Practitioner; PCP Nurse Practitioner; Referring Provider Internal Medicine Nephrology; Visit Provider Internal Medicine Nephrology
DX: N18.32 Chronic kidney disease, stage 3b (principal); I10 Essential (primary) hypertension; Z11.59 Encounter for screening for other viral diseases
CPT/HCPCS: 36415; 80048; 82043; 82570; 85014; 85018; 86803

== ENCOUNTER 2022-09-13 14:30 | Outpatient (RCR) | payer MEDICARE, MEDICAID, SELFPAY ==
--- NOTE | 2022-05-26 17:37 | PT.OIE ---
Current Diagnoses Other abnormalities of gait and mobility (05/26/22) Repeated falls (05/26/22) Weakness (05/26/22) Past Medical History (Last Updated 04/12/22 @ 14:24 by HAMZAH Navas) Abnormal Pap smear of cervix (~1956) ADD (attention deficit disorder) ADD (attention deficit disorder) Anemia Ankle pain Anxiety Arachnoiditis Atrial fibrillation Bilirubin in urine Cataracts, bilateral Cervical spine disease Chronic back pain Class 1 obesity due to excess calories with body mass index (BMI) of 34.0 to 34.9 in adult COPD (chronic obstructive pulmonary disease) Cystic fibrosis (~1956) Degenerative joint disease (DJD) of lumbar spine Depression Depression Dysphagia Dysphagia Encounter for Medicare annual wellness exam Fibromyalgia Fibromyalgia Foot pain Frequent falls GERD (gastroesophageal reflux disease) GI bleeding Heavy menstrual period Hypertension Kidney stones Loss of voice Osteoporosis Peripheral neuropathy Pneumonia Post traumatic stress disorder (PTSD) Raynaud's disease without gangrene Restless leg syndrome Rheumatoid arthritis Right leg injury Sciatica Scoliosis Screening for malignant neoplasm of colon Severe 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, without psychotic features (07/05/16) Skin cancer (~1996) Stroke UTI (urinary tract infection) Venous stasis Vertigo (~1968) Past Surgical History (Last Reviewed 04/12/22 @ 12:08 by HAMZAH Navas) History of back surgery History of hip replacement History of knee replacement (11/29/16) History of neck surgery S/P total abdominal hysterectomy and bilateral salpingo-oophorectomy Status post appendectomy Status post bunionectomy (08/11/15) Status post cholecystectomy Status post tonsillectomy and adenoidectomy Status post tubal ligation Visit Care Team Role Provider Type HAMZAH Navas Attending Provider Advanced Rating Specialist Family Provider Primary Care Provider Referring Provider Specialty: Family Practice Address: [address] [place] [address], [facility] Email: [email or web address] Physical Therapy Initial Evaluation PT-OP-A Visit Information Start: 05/26/22 16:48 Freq: Status: Active Protocol: Document 05/26/22 15:20 DCW (Rec: 05/26/22 16:49 DCW [id number]) Out-Patient Physical Therapy Visit Information Visit Information Visit Type Initial Evaluation Visit Start Time 15:20 Visit Stop Time 16:00 Total Visit Minutes 40 Visit Number 1 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 Pt has a very complicated medical history which includes 18 back surgeries, history of falls, a -fib, HTN, CVA, COPD, L VERONICA, and R TKA, among many other different diagnoses. Pt reports her most recent fall occurred three weeks ago, but there have been many. Pt ambulates with a 4WW at all times. Additionally, pt's COPD greatly limits her activity tolerance and ability to participate in most activity. Prior Treatments and Tests Pt has undergone therapy at this clinic previously, notes that she went from relying on her 4WW to walking without any assistance, however also notes that that was many years and about nine surgeries ago, so I might not make that good of improvement this time . Treatment Goals Patient/Caregiver Goals Decrease falls risk, decrease fear of falling, improve leg strength PT-OP-C Subjective Start: 05/26/22 16:48 Freq: Status: Active Protocol: Document 05/26/22 15:15 DCW (Rec: 05/26/22 17:37 DCW [id number]) OP-PT Subjective Patient Comments Patient Comments My COPD really limits what I an do most days. Patient Reported Progress Worse PT-OP-D Balance Start: 05/26/22 16:48 Freq: Status: Active Protocol: Document 05/26/22 15:15 DCW (Rec: 05/26/22 17:37 DCW [id number]) OP-PT Balance Assessment Sitting Balance Static Sitting Balance Ability Good Dynamic Sitting Balance Ability Good Standing Balance Static Standing Balance Ability Fair Dynamic Standing Balance Ability Fair Device Used 4WW Balance Tests Dominguez Balance Test Dominguez Balance Test Score 38/56 Dominguez Impairment Rating 20 to 39% Impaired (Score 34- 44) Dominguez Balance Assessment Evaluation Sitting to Standing Ability Independent w/out Hands Unsupported Stance Supervision- 2 minutes Sitting Unsupported, Feet on Floor Safely- 2 minutes Standing to Sitting Ability Safely, Minimal Hand Use Transfer Ability Safely, Minimal Hand Use Unsupported Stance- Eyes Closed Supervision, 10 seconds Unsupported Stance- Eyes Open Independent, <30 seconds Reaching Forward Standing Safely, 2 inches Pick- Up Object From Floor Supervision Look Behind Shoulder - Standing Turns Sideways Only Turning 360 Degrees Turns slowly, but safely Unsupported Stance, Alternating Feet on 4 Steps w/Supervision Stair Unsupported Tandem Stance Small Step- 30 seconds Unilateral Leg Stance Lifts Leg/Unable to Hold Total Score Dominguez Total Score (out of 56 points) 38 Dominguez Impairment Rating 20 to 39% Impaired (Score 34- 44) Delgado Fall Scale Copyright Permission PT-OP-E Functional Tests Start: 05/26/22 16:48 Freq: Status: Active Protocol: Document 05/26/22 15:15 DCW (Rec: 05/26/22 17:37 DCW [id number]) Functional Tests Timed Up and Go (TUG) Score 20.01 /s AD Comments Three-trial average (24.87, 19 .54, 15.61) TUG Impairment Rating 100% Impaired (Score 20) PT-OP-M Strength Start: 05/26/22 16:48 Freq: Status: Active Protocol: Document 05/26/22 15:15 DCW (Rec: 05/26/22 17:37 DCW [id number]) Hip Strength Hip Manual Muscle Testing Right Flexion (L2) 3+ Fair+ Abduction 4- Good- Adduction 4- Good- Left Flexion (L2) 4 Good Abduction 4 Good Adduction 4 Good Knee Strength Knee Manual Muscle Testing Right Flexion (S2) 3+ Fair+ Extension (L3) 4 Good Comments Pt c/o left low back pain with right knee MMT Left Flexion (S2) 4+ Good+ Extension (L3) 4+ Good+ Ankle/Foot Strength Ankle and Foot Manual Muscle Testing Right Dorsiflexion (L4) 3+ Fair+ Plantarflexion (S1) 3+ Fair+ Left Dorsiflexion (L4) 4 Good Plantarflexion (S1) 4- Good- PT-OP-T Assessment and Plan Start: 05/26/22 16:48 Freq: Status: Active Protocol: Document 05/26/22 15:15 DCW (Rec: 05/26/22 17:37 [facility] [id number]) Physical Therapy Assessment Rehab Potential Rehabilitation Potential Good Evaluation Complexity Number of Personal Factors/Comorbidities 3 or More Number of Body Systems Impaired 4 or More Clinical Presentation at Evaluation Unstable Impairments Impairments Activity Tolerance,Balance, Functional Activities, Functional Mobility,Gait, Posture,ROM,Soft Tissue Mobility,Strength Goals Three Impairment Right LE MMT scores of 3+/5 and 4-/5 in multiple planes Com Writer Goal (LTG) Pt to increase R LE MMT to at least 4/5 in all planes to demonstrate improved LE strength to help decrease pt's fear of falling LTG Duration 08/24/22 Two Impairment Pt presents with an increased falls risk, per Dominguez (38/56) and TUG (20.01) Short Term Goal (STG) Pt to demonstrate decreased falls risk by improving score on the TUG by at least six seconds to 14 STG Duration 07/10/22 Usp Goal (LTG) Pt to improve Dominguez score by at least 7 points to 45/56 in order to demonstrate decreased falls risk and improved safety in ambulation LTG Duration 08/24/22 One Impairment Pt does not have an appropriate home exercise program Short Term Goal (STG) Pt to be independent and compliant with an appropriate HEP STG Duration 07/10/22 Assessment Summary Assessment Pt presents with general weakness, deconditioning, intolerance to activity, and increased falls risk. Pt has a substantial history of medical conditions, along with a history of falling. Pt should benefit from skilled therapy focusing on strength, balance training, gait training, and improving activity tolerance. Pt does have significant limiting factors, including COPD, at least 18 prior back surgeries , multiple joint replacements, HTN, CVA, scoliosis, and A- fib. Physical Therapy Plan Frequency and Duration Frequency of Treatment 2x/Week Duration of Treatment 90 days Plan of Care Start Date 05/26/22 Plan of Care End Date 08/24/22 Therapeutic Interventions Therapeutic Interventions Aquatic Therapy,Balance Training,Gait Training,Home Exercise Program,Joint Mobilizations,Manual Therapy, Neuromuscular Re-education, Patient/Caregiver Education, Self-Care/Home Management,Soft Tissue Mobilization, Therapeutic Activities, Therapeutic Exercises Modalities Cold Pack/Ice Massage,Electric Stimulation,Hot Packs, Ultrasound Next Visit Focus/Plan Next Note Type Treatment Note Next Visit Plan Activity tolerance, balance training, strengthening
--- NOTE | 2022-05-26 17:38 | PT.OPPOC ---
Physical, Occupational & Speech Therapy At [facility] Current Diagnoses Other abnormalities of gait and mobility (05/26/22) Repeated falls (05/26/22) Weakness (05/26/22) Visit Care Team Role Provider Type HAMZAH Navas Attending Provider Advanced Water Quality Assistant Family Provider Primary Care Provider Referring Provider Specialty: Family Practice Address: [address] [place] [address], [facility] Email: [email or web address] Plan Of Care PT-OP-T Assessment and Plan Start: 05/26/22 16:48 Freq: Status: Active Protocol: Document 05/26/22 15:15 DCW (Rec: 05/26/22 17:37 DCW [id number]) Physical Therapy Assessment Rehab Potential Rehabilitation Potential Good Evaluation Complexity Number of Personal Factors/Comorbidities 3 or More Number of Body Systems Impaired 4 or More Clinical Presentation at Evaluation Unstable Impairments Impairments Activity Tolerance,Balance, Functional Activities, Functional Mobility,Gait, Posture,ROM,Soft Tissue Mobility,Strength Goals Three Impairment Right LE MMT scores of 3+/5 and 4-/5 in multiple planes Correction Goal (LTG) Pt to increase R LE MMT to at least 4/5 in all planes to demonstrate improved LE strength to help decrease pt's fear of falling LTG Duration 08/24/22 Two Impairment Pt presents with an increased falls risk, per Dominguez (38/56) and TUG (20.01) Short Term Goal (STG) Pt to demonstrate decreased falls risk by improving score on the TUG by at least six seconds to 14 STG Duration 07/10/22 Philanthropy Officer Goal (LTG) Pt to improve Dominguez score by at least 7 points to 45/56 in order to demonstrate decreased falls risk and improved safety in ambulation LTG Duration 08/24/22 One Impairment Pt does not have an appropriate home exercise program Short Term Goal (STG) Pt to be independent and compliant with an appropriate HEP STG Duration 07/10/22 Assessment Summary Assessment Pt presents with general weakness, deconditioning, intolerance to activity, and increased falls risk. Pt has a substantial history of medical conditions, along with a history of falling. Pt should benefit from skilled therapy focusing on strength, balance training, gait training, and improving activity tolerance. Pt does have significant limiting factors, including COPD, at least 18 prior back surgeries , multiple joint replacements, HTN, CVA, scoliosis, and A- fib. Physical Therapy Plan Frequency and Duration Frequency of Treatment 2x/Week Duration of Treatment 90 days Plan of Care Start Date 05/26/22 Plan of Care End Date 08/24/22 Therapeutic Interventions Therapeutic Interventions Aquatic Therapy,Balance Training,Gait Training,Home Exercise Program,Joint Mobilizations,Manual Therapy, Neuromuscular Re-education, Patient/Caregiver Education, Self-Care/Home Management,Soft Tissue Mobilization, Therapeutic Activities, Therapeutic Exercises Modalities Cold Pack/Ice Massage,Electric Stimulation,Hot Packs, Ultrasound Next Visit Focus/Plan Next Note Type Treatment Note Next Visit Plan Activity tolerance, balance training, strengthening Plan of Care Dates Plan of Care Start Date 05/26/22 Plan of Care End Date 08/24/22 Electronically Signed by: Santi No, PT 05/26/22 3947 If you are in agreement with this Plan of Care, please return a signed and dated copy. I have reviewed this Plan of Care and certify that the skilled therapy services above are required to meet the patient?s needs. Physician Signature Date Printed Name and Credentials Clinical Instructor Signature Printed Name and Credentials
--- NOTE | 2022-05-28 12:01 | PT.OTN ---
Current Diagnoses Other abnormalities of gait and mobility (05/28/22) Repeated falls (05/28/22) Weakness (05/28/22) Physical Therapy Treatment Note PT-OP-A Visit Information Start: 05/26/22 16:48 Freq: Status: Active Protocol: Document 05/28/22 11:15 DCW (Rec: 05/28/22 12:00 DCW [id number]) Out-Patient Physical Therapy Visit Information Visit Information Visit Type Treatment Note Visit Start Time 11:15 Visit Stop Time 12:00 Total Visit Minutes 45 Visit Number 2 Number of MOLDER PUNCH Visits 0 Evaluation Information Evaluation Date 05/26/22 PT-OP-B Current Condition Start: 05/26/22 16:48 Freq: Status: Active Protocol: Document 05/26/22 15:15 DCW (Rec: 05/26/22 17:37 DCW [id number]) Current Condition History of Current Condition Onset Date Multi-year history Current Complaints Fear of falling, decreased balance, weakness, fall history History of Current Condition Pt is a 77 year old female presenting with a long- standing history of weakness, with declining balance and noticeable increased fear of falling. Pt has a very complicated medical history which includes 18 back surgeries, history of falls, a -fib, HTN, CVA, COPD, L VERONICA, and R TKA, among many other different diagnoses. Pt reports her most recent fall occurred three weeks ago, but there have been many. Pt ambulates with a 4WW at all times. Additionally, pt's COPD greatly limits her activity tolerance and ability to participate in most activity. Prior Treatments and Tests Pt has undergone therapy at this clinic previously, notes that she went from relying on her 4WW to walking without any assistance, however also notes that that was many years and about nine surgeries ago, so I might not make that good of improvement this time . Treatment Goals Patient/Caregiver Goals Decrease falls risk, decrease fear of falling, improve leg strength PT-OP-C Subjective Start: 05/26/22 16:48 Freq: Status: Active Protocol: Document 05/28/22 11:15 DCW (Rec: 05/28/22 12:00 DCW [id number]) OP-PT Subjective Patient Comments Patient Comments Pt feeling pretty good today, getting PT-OP-D Balance Start: 05/26/22 16:48 Freq: Status: Active Protocol: Document 05/26/22 15:15 DCW (Rec: 05/26/22 17:37 [facility] [id number]) OP-PT Balance Assessment Sitting Balance Static Sitting Balance Ability Good Dynamic Sitting Balance Ability Good Standing Balance Static Standing Balance Ability Fair Dynamic Standing Balance Ability Fair Device Used 4WW Balance Tests Dominguez Balance Test Dominguez Balance Test Score 38/56 Dominguez Impairment Rating 20 to 39% Impaired (Score 34- 44) Dominguez Balance Assessment Evaluation Sitting to Standing Ability Independent w/out Hands Unsupported Stance Supervision- 2 minutes Sitting Unsupported, Feet on Floor Safely- 2 minutes Standing to Sitting Ability Safely, Minimal Hand Use Transfer Ability Safely, Minimal Hand Use Unsupported Stance- Eyes Closed Supervision, 10 seconds Unsupported Stance- Eyes Open Independent, <30 seconds Reaching Forward Standing Safely, 2 inches Pick- Up Object From Floor Supervision Look Behind Shoulder - Standing Turns Sideways Only Turning 360 Degrees Turns slowly, but safely Unsupported Stance, Alternating Feet on 4 Steps w/Supervision Stair Unsupported Tandem Stance Small Step- 30 seconds Unilateral Leg Stance Lifts Leg/Unable to Hold Total Score Dominguez Total Score (out of 56 points) 38 Dominguez Impairment Rating 20 to 39% Impaired (Score 34- 44) Delgado Fall Scale Copyright Permission PT-OP-E Functional Tests Start: 05/26/22 16:48 Freq: Status: Active Protocol: Document 05/26/22 15:15 DCW (Rec: 05/26/22 17:37 [facility] [id number]) Functional Tests Timed Up and Go (TUG) Score 20.01 /s AD Comments Three-trial average (24.87, 19 .54, 15.61) TUG Impairment Rating 100% Impaired (Score 20) PT-OP-M Strength Start: 05/26/22 16:48 Freq: Status: Active Protocol: Document 05/26/22 15:15 DCW (Rec: 05/26/22 17:37 [facility] [id number]) Hip Strength Hip Manual Muscle Testing Right Flexion (L2) 3+ Fair+ Abduction 4- Good- Adduction 4- Good- Left Flexion (L2) 4 Good Abduction 4 Good Adduction 4 Good Knee Strength Knee Manual Muscle Testing Right Flexion (S2) 3+ Fair+ Extension (L3) 4 Good Comments Pt c/o left low back pain with right knee MMT Left Flexion (S2) 4+ Good+ Extension (L3) 4+ Good+ Ankle/Foot Strength Ankle and Foot Manual Muscle Testing Right Dorsiflexion (L4) 3+ Fair+ Plantarflexion (S1) 3+ Fair+ Left Dorsiflexion (L4) 4 Good Plantarflexion (S1) 4- Good- PT-OP-Q Treatments Start: 05/26/22 16:48 Freq: Status: Active Protocol: Document 05/28/22 11:15 DCW (Rec: 05/28/22 12:00 DCW [id number]) Cardio Equipment Recumbent Elliptical (Biodex) Duration (Minutes) 5 Resistance 3 Seat Position 7 Gym Equipment Shuttle Recovery Unilateral Squats Resistance 50# Shuttle Recovery Platform Stable Reps/Time x15 each Bilateral Squats Resistance 100# Shuttle Recovery Platform Stable Reps/Time x15 Therapeutic Exercises Sitting Exercises Hip Abduction Sitting Exercise Name Hip Abduction Side bilateral Resistance Lv2 Hamstring curls Sitting Exercise Name HS Curls Side bilateral Resistance Lv 2 Ankle Flexion Sitting Exercise Name 4-way ankle flexion Side bilateral Resistance Lv 2 Standing Exercises Extension Standing Exercise Name Hip Extension Side bilateral Resistance Red Other Exercises Resisted Ambulation Other Exercise Name Resisted side-stepping Resistance Red PT-OP-T Assessment and Plan Start: 05/26/22 16:48 Freq: Status: Active Protocol: Document 05/28/22 11:15 DCW (Rec: 05/28/22 12:00 DCW [id number]) Physical Therapy Assessment Impairments Impairments Activity Tolerance,Balance, Functional Activities, Functional Mobility,Gait, Posture,ROM,Soft Tissue Mobility,Strength Goals Three Impairment Right LE MMT scores of 3+/5 and 4-/5 in multiple planes [facility] Goal (LTG) Pt to increase R LE MMT to at least 4/5 in all planes to demonstrate improved LE strength to help decrease pt's fear of falling LTG Duration 08/24/22 Two Impairment Pt presents with an increased falls risk, per Dominguez (38/56) and TUG (20.01) Short Term Goal (STG) Pt to demonstrate decreased falls risk by improving score on the TUG by at least six seconds to 14 STG Duration 07/10/22 [facility] Goal (LTG) Pt to improve Dominguez score by at least 7 points to 45/56 in order to demonstrate decreased falls risk and improved safety in ambulation LTG Duration 08/24/22 One Impairment Pt does not have an appropriate home exercise program Short Term Goal (STG) Pt to be independent and compliant with an appropriate HEP STG Duration 07/10/22 Assessment Summary Assessment Pt came in with her caregiver today, reviewed new exercises they can perform at home. Pt tolerated well, did fatigue some with activity. Physical Therapy Plan Frequency and Duration Frequency of Treatment 2x/Week Duration of Treatment 90 days Plan of Care Start Date 05/26/22 Plan of Care End Date 08/24/22 Therapeutic Interventions Therapeutic Interventions Aquatic Therapy,Balance Training,Gait Training,Home Exercise Program,Joint Mobilizations,Manual Therapy, Neuromuscular Re-education, Patient/Caregiver Education, Self-Care/Home Management,Soft Tissue Mobilization, Therapeutic Activities, Therapeutic Exercises Modalities Cold Pack/Ice Massage,Electric Stimulation,Hot Packs, Ultrasound Next Visit Focus/Plan Next Note Type Treatment Note Next Visit Plan Activity tolerance, balance training, strengthening
--- NOTE | 2022-05-31 11:57 | PT.OTN ---
Current Diagnoses Other abnormalities of gait and mobility (05/31/22) Repeated falls (05/31/22) Weakness (05/31/22) Physical Therapy Treatment Note PT-OP-A Visit Information Start: 05/26/22 16:48 Freq: Status: Active Protocol: Document 05/31/22 11:15 DCW (Rec: 05/31/22 11:57 DCW [id number]) Out-Patient Physical Therapy Visit Information Visit Information Visit Type Treatment Note Visit Start Time 11:15 Visit Stop Time 12:00 Total Visit Minutes 45 Visit Number 3 Number of VICE PRESIDENT TALENT MANAGEMENT Visits 0 Evaluation Information Evaluation Date 05/26/22 PT-OP-B Current Condition Start: 05/26/22 16:48 Freq: Status: Active Protocol: Document 05/26/22 15:15 DCW (Rec: 05/26/22 17:37 DCW [id number]) Current Condition History of Current Condition Onset Date Multi-year history Current Complaints Fear of falling, decreased balance, weakness, fall history History of Current Condition Pt is a 77 year old female presenting with a long- standing history of weakness, with declining balance and noticeable increased fear of falling. Pt has a very complicated medical history which includes 18 back surgeries, history of falls, a -fib, HTN, CVA, COPD, L VERONICA, and R TKA, among many other different diagnoses. Pt reports her most recent fall occurred three weeks ago, but there have been many. Pt ambulates with a 4WW at all times. Additionally, pt's COPD greatly limits her activity tolerance and ability to participate in most activity. Prior Treatments and Tests Pt has undergone therapy at this clinic previously, notes that she went from relying on her 4WW to walking without any assistance, however also notes that that was many years and about nine surgeries ago, so I might not make that good of improvement this time . Treatment Goals Patient/Caregiver Goals Decrease falls risk, decrease fear of falling, improve leg strength PT-OP-C Subjective Start: 05/26/22 16:48 Freq: Status: Active Protocol: Document 05/31/22 11:15 DCW (Rec: 05/31/22 11:57 DCW [id number]) OP-PT Subjective Patient Comments Patient Comments There's something going on in my lower back that shouldn't be. It's new. I'm not too worried about it. It will either go away or it won't. PT-OP-D Balance Start: 05/26/22 16:48 Freq: Status: Active Protocol: Document 05/26/22 15:15 DCW (Rec: 05/26/22 17:37 DCW [id number]) OP-PT Balance Assessment Sitting Balance Static Sitting Balance Ability Good Dynamic Sitting Balance Ability Good Standing Balance Static Standing Balance Ability Fair Dynamic Standing Balance Ability Fair Device Used 4WW Balance Tests Dominguez Balance Test Dominguez Balance Test Score 38/56 Dominguez Impairment Rating 20 to 39% Impaired (Score 34- 44) Dominguez Balance Assessment Evaluation Sitting to Standing Ability Independent w/out Hands Unsupported Stance Supervision- 2 minutes Sitting Unsupported, Feet on Floor Safely- 2 minutes Standing to Sitting Ability Safely, Minimal Hand Use Transfer Ability Safely, Minimal Hand Use Unsupported Stance- Eyes Closed Supervision, 10 seconds Unsupported Stance- Eyes Open Independent, <30 seconds Reaching Forward Standing Safely, 2 inches Pick- Up Object From Floor Supervision Look Behind Shoulder - Standing Turns Sideways Only Turning 360 Degrees Turns slowly, but safely Unsupported Stance, Alternating Feet on 4 Steps w/Supervision Stair Unsupported Tandem Stance Small Step- 30 seconds Unilateral Leg Stance Lifts Leg/Unable to Hold Total Score Dominguez Total Score (out of 56 points) 38 Dominguez Impairment Rating 20 to 39% Impaired (Score 34- 44) Delgado Fall Scale Copyright Permission PT-OP-E Functional Tests Start: 05/26/22 16:48 Freq: Status: Active Protocol: Document 05/26/22 15:15 DCW (Rec: 05/26/22 17:37 DC [id number]) Functional Tests Timed Up and Go (TUG) Score 20.01 /s AD Comments Three-trial average (24.87, 19 .54, 15.61) TUG Impairment Rating 100% Impaired (Score 20) PT-OP-M Strength Start: 05/26/22 16:48 Freq: Status: Active Protocol: Document 05/26/22 15:15 DCW (Rec: 05/26/22 17:37 DCW [id number]) Hip Strength Hip Manual Muscle Testing Right Flexion (L2) 3+ Fair+ Abduction 4- Good- Adduction 4- Good- Left Flexion (L2) 4 Good Abduction 4 Good Adduction 4 Good Knee Strength Knee Manual Muscle Testing Right Flexion (S2) 3+ Fair+ Extension (L3) 4 Good Comments Pt c/o left low back pain with right knee MMT Left Flexion (S2) 4+ Good+ Extension (L3) 4+ Good+ Ankle/Foot Strength Ankle and Foot Manual Muscle Testing Right Dorsiflexion (L4) 3+ Fair+ Plantarflexion (S1) 3+ Fair+ Left Dorsiflexion (L4) 4 Good Plantarflexion (S1) 4- Good- PT-OP-Q Treatments Start: 05/26/22 16:48 Freq: Status: Active Protocol: Document 05/31/22 11:15 DCW (Rec: 05/31/22 11:57 DCW [id number]) Cardio Equipment Recumbent Elliptical (Biodex) Duration (Minutes) 5 Resistance 5 Seat Position 8 Other Rest break @ 2:00 Gym Equipment Shuttle Recovery Unilateral Squats Resistance 62# Shuttle Recovery Platform Stable Reps/Time x15 each Bilateral Squats Resistance 100# Shuttle Recovery Platform Stable Reps/Time x15 Therapeutic Exercises Standing Exercises Extension Standing Exercise Name Hip Extension Side bilateral Resistance Red Other Exercises Resisted Ambulation Other Exercise Name Resisted side-stepping Resistance Red Neuro Re-Education Treatment Balance Activities Hurdles Details Hurdles Equipment // bars Foam Stance Details NBOS Surface Blue Equipment // bars Tandem Details Tandem Stance Equipment // bars PT-OP-T Assessment and Plan Start: 05/26/22 16:48 Freq: Status: Active Protocol: Document 05/31/22 11:15 DCW (Rec: 05/31/22 11:57 DCW [id number]) Physical Therapy Assessment Impairments Impairments Activity Tolerance,Balance, Functional Activities, Functional Mobility,Gait, Posture,ROM,Soft Tissue Mobility,Strength Goals Three Impairment Right LE MMT scores of 3+/5 and 4-/5 in multiple planes [facility] Goal (LTG) Pt to increase R LE MMT to at least 4/5 in all planes to demonstrate improved LE strength to help decrease pt's fear of falling LTG Duration 08/24/22 Two Impairment Pt presents with an increased falls risk, per Dominguez (38/56) and TUG (20.01) Short Term Goal (STG) Pt to demonstrate decreased falls risk by improving score on the TUG by at least six seconds to 14 STG Duration 07/10/22 Bridge Rigger Goal (LTG) Pt to improve Dominguez score by at least 7 points to 45/56 in order to demonstrate decreased falls risk and improved safety in ambulation LTG Duration 08/24/22 One Impairment Pt does not have an appropriate home exercise program Short Term Goal (STG) Pt to be independent and compliant with an appropriate HEP STG Duration 07/10/22 Assessment Summary Assessment Much more fatigued today, required multiple rest breaks, typically in the middle of each activity. Struggled more today with balance activities. Physical Therapy Plan Frequency and Duration Frequency of Treatment 2x/Week Plan of Care Start Date 05/26/22 Plan of Care End Date 08/24/22 Therapeutic Interventions Therapeutic Interventions Aquatic Therapy,Balance Training,Gait Training,Home Exercise Program,Joint Mobilizations,Manual Therapy, Neuromuscular Re-education, Patient/Caregiver Education, Self-Care/Home Management,Soft Tissue Mobilization, Therapeutic Activities, Therapeutic Exercises Modalities Cold Pack/Ice Massage,Electric Stimulation,Hot Packs, Ultrasound Next Visit Focus/Plan Next Note Type Treatment Note Next Visit Plan Activity tolerance, balance training, strengthening
--- NOTE | 2022-06-03 12:42 | PT.OTN ---
Current Diagnoses Other abnormalities of gait and mobility (06/03/22) Repeated falls (06/03/22) Weakness (06/03/22) Physical Therapy Treatment Note PT-OP-A Visit Information Start: 05/26/22 16:48 Freq: Status: Active Protocol: Document 06/03/22 12:00 DCW (Rec: 06/03/22 12:42 DCW [id number]) Out-Patient Physical Therapy Visit Information Visit Information Visit Type Treatment Note Visit Start Time 12:00 Visit Stop Time 12:45 Total Visit Minutes 45 Visit Number 4 Number of CITY MAGISTRATE Visits 0 Evaluation Information Evaluation Date 05/26/22 PT-OP-B Current Condition Start: 05/26/22 16:48 Freq: Status: Active Protocol: Document 05/26/22 15:15 DCW (Rec: 05/26/22 17:37 DCW [id number]) Current Condition History of Current Condition Onset Date Multi-year history Current Complaints Fear of falling, decreased balance, weakness, fall history History of Current Condition Pt is a 77 year old female presenting with a long- standing history of weakness, with declining balance and noticeable increased fear of falling. Pt has a very complicated medical history which includes 18 back surgeries, history of falls, a -fib, HTN, CVA, COPD, L VERONICA, and R TKA, among many other different diagnoses. Pt reports her most recent fall occurred three weeks ago, but there have been many. Pt ambulates with a 4WW at all times. Additionally, pt's COPD greatly limits her activity tolerance and ability to participate in most activity. Prior Treatments and Tests Pt has undergone therapy at this clinic previously, notes that she went from relying on her 4WW to walking without any assistance, however also notes that that was many years and about nine surgeries ago, so I might not make that good of improvement this time . Treatment Goals Patient/Caregiver Goals Decrease falls risk, decrease fear of falling, improve leg strength PT-OP-C Subjective Start: 05/26/22 16:48 Freq: Status: Active Protocol: Document 06/03/22 12:00 DCW (Rec: 06/03/22 12:42 DCW [id number]) OP-PT Subjective Patient Comments Patient Comments Pt wearing socks today, reports that she breaks that little toe every two months or so, and it is swollen up right now. PT-OP-D Balance Start: 05/26/22 16:48 Freq: Status: Active Protocol: Document 05/26/22 15:15 DCW (Rec: 05/26/22 17:37 DCW [id number]) OP-PT Balance Assessment Sitting Balance Static Sitting Balance Ability Good Dynamic Sitting Balance Ability Good Standing Balance Static Standing Balance Ability Fair Dynamic Standing Balance Ability Fair Device Used 4WW Balance Tests Dominguez Balance Test Dominguez Balance Test Score 38/56 Dominguez Impairment Rating 20 to 39% Impaired (Score 34- 44) Dominguez Balance Assessment Evaluation Sitting to Standing Ability Independent w/out Hands Unsupported Stance Supervision- 2 minutes Sitting Unsupported, Feet on Floor Safely- 2 minutes Standing to Sitting Ability Safely, Minimal Hand Use Transfer Ability Safely, Minimal Hand Use Unsupported Stance- Eyes Closed Supervision, 10 seconds Unsupported Stance- Eyes Open Independent, <30 seconds Reaching Forward Standing Safely, 2 inches Pick- Up Object From Floor Supervision Look Behind Shoulder - Standing Turns Sideways Only Turning 360 Degrees Turns slowly, but safely Unsupported Stance, Alternating Feet on 4 Steps w/Supervision Stair Unsupported Tandem Stance Small Step- 30 seconds Unilateral Leg Stance Lifts Leg/Unable to Hold Total Score Dominguez Total Score (out of 56 points) 38 Dominguez Impairment Rating 20 to 39% Impaired (Score 34- 44) Delgado Fall Scale Copyright Permission PT-OP-E Functional Tests Start: 05/26/22 16:48 Freq: Status: Active Protocol: Document 05/26/22 15:15 DCW (Rec: 05/26/22 17:37 [facility] [id number]) Functional Tests Timed Up and Go (TUG) Score 20.01 /s AD Comments Three-trial average (24.87, 19 .54, 15.61) TUG Impairment Rating 100% Impaired (Score 20) PT-OP-M Strength Start: 05/26/22 16:48 Freq: Status: Active Protocol: Document 05/26/22 15:15 DCW (Rec: 05/26/22 17:37 MAW [id number]) Hip Strength Hip Manual Muscle Testing Right Flexion (L2) 3+ Fair+ Abduction 4- Good- Adduction 4- Good- Left Flexion (L2) 4 Good Abduction 4 Good Adduction 4 Good Knee Strength Knee Manual Muscle Testing Right Flexion (S2) 3+ Fair+ Extension (L3) 4 Good Comments Pt c/o left low back pain with right knee MMT Left Flexion (S2) 4+ Good+ Extension (L3) 4+ Good+ Ankle/Foot Strength Ankle and Foot Manual Muscle Testing Right Dorsiflexion (L4) 3+ Fair+ Plantarflexion (S1) 3+ Fair+ Left Dorsiflexion (L4) 4 Good Plantarflexion (S1) 4- Good- PT-OP-Q Treatments Start: 05/26/22 16:48 Freq: Status: Active Protocol: Document 06/03/22 12:00 DCW (Rec: 06/03/22 12:42 DCW [id number]) Cardio Equipment Recumbent Elliptical (Biodex) Duration (Minutes) 5 Resistance 3 Seat Position 8 Gym Equipment Shuttle Recovery Unilateral Squats Resistance 62# Shuttle Recovery Platform Stable Reps/Time x20 each Bilateral Squats Resistance 100# Shuttle Recovery Platform Stable Reps/Time x15 Therapeutic Exercises Standing Exercises Extension Standing Exercise Name Hip Extension Side bilateral Resistance Red Other Exercises Toe-tap Other Exercise Name Toe-taps Side bilateral Resistance 4# Equipment Used 6 step Resisted Ambulation Other Exercise Name Resisted side-stepping Resistance Red Neuro Re-Education Treatment Balance Activities Hurdles Details Hurdles Equipment // bars Comments Fwd, Side-stepping Tandem Details Tandem Stance Equipment // bars PT-OP-T Assessment and Plan Start: 05/26/22 16:48 Freq: Status: Active Protocol: Document 06/03/22 12:00 DCW (Rec: 06/03/22 12:42 DCW [id number]) Physical Therapy Assessment Impairments Impairments Activity Tolerance,Balance, Functional Activities, Functional Mobility,Gait, Posture,ROM,Soft Tissue Mobility,Strength Goals Three Impairment Right LE MMT scores of 3+/5 and 4-/5 in multiple planes Community Health Outreach Worker Goal (LTG) Pt to increase R LE MMT to at least 4/5 in all planes to demonstrate improved LE strength to help decrease pt's fear of falling LTG Duration 08/24/22 Two Impairment Pt presents with an increased falls risk, per Dominguez (38/56) and TUG (20.01) Short Term Goal (STG) Pt to demonstrate decreased falls risk by improving score on the TUG by at least six seconds to 14 STG Duration 07/10/22 Mcc Goal (LTG) Pt to improve Dominguez score by at least 7 points to 45/56 in order to demonstrate decreased falls risk and improved safety in ambulation LTG Duration 08/24/22 One Impairment Pt does not have an appropriate home exercise program Short Term Goal (STG) Pt to be independent and compliant with an appropriate HEP STG Duration 07/10/22 Assessment Summary Assessment Some slight SOB today, but overall much less fatigue, pt tolerated all activities well today, minimal rest breaks needed. Physical Therapy Plan Frequency and Duration Frequency of Treatment 2x/Week Plan of Care Start Date 05/26/22 Plan of Care End Date 08/24/22 Therapeutic Interventions Therapeutic Interventions Aquatic Therapy,Balance Training,Gait Training,Home Exercise Program,Joint Mobilizations,Manual Therapy, Neuromuscular Re-education, Patient/Caregiver Education, Self-Care/Home Management,Soft Tissue Mobilization, Therapeutic Activities, Therapeutic Exercises Modalities Cold Pack/Ice Massage,Electric Stimulation,Hot Packs, Ultrasound Next Visit Focus/Plan Next Note Type Treatment Note Next Visit Plan Activity tolerance, balance training, strengthening
--- NOTE | 2022-06-07 11:51 | PT.OTN ---
Current Diagnoses Other abnormalities of gait and mobility (06/07/22) Repeated falls (06/07/22) Weakness (06/07/22) Physical Therapy Treatment Note PT-OP-A Visit Information Start: 05/26/22 16:48 Freq: Status: Active Protocol: Document 06/07/22 11:15 DCW (Rec: 06/07/22 11:51 DCW [id number]) Out-Patient Physical Therapy Visit Information Visit Information Visit Type Treatment Note Visit Start Time 11:15 Visit Stop Time 11:48 Total Visit Minutes 33 Visit Number 5 Number of INTERIOR DESIGN TEACHER Visits 0 Evaluation Information Evaluation Date 05/26/22 PT-OP-B Current Condition Start: 05/26/22 16:48 Freq: Status: Active Protocol: Document 05/26/22 15:15 DCW (Rec: 05/26/22 17:37 DCW [id number]) Current Condition History of Current Condition Onset Date Multi-year history Current Complaints Fear of falling, decreased balance, weakness, fall history History of Current Condition Pt is a 77 year old female presenting with a long- standing history of weakness, with declining balance and noticeable increased fear of falling. Pt has a very complicated medical history which includes 18 back surgeries, history of falls, a -fib, HTN, CVA, COPD, L VERONICA, and R TKA, among many other different diagnoses. Pt reports her most recent fall occurred three weeks ago, but there have been many. Pt ambulates with a 4WW at all times. Additionally, pt's COPD greatly limits her activity tolerance and ability to participate in most activity. Prior Treatments and Tests Pt has undergone therapy at this clinic previously, notes that she went from relying on her 4WW to walking without any assistance, however also notes that that was many years and about nine surgeries ago, so I might not make that good of improvement this time . Treatment Goals Patient/Caregiver Goals Decrease falls risk, decrease fear of falling, improve leg strength PT-OP-C Subjective Start: 05/26/22 16:48 Freq: Status: Active Protocol: Document 06/07/22 11:15 DCW (Rec: 06/07/22 11:51 DCW [id number]) OP-PT Subjective Patient Comments Patient Comments I'm short winded today. PT-OP-D Balance Start: 05/26/22 16:48 Freq: Status: Active Protocol: Document 05/26/22 15:15 DCW (Rec: 05/26/22 17:[address] [facility] [id number]) OP-PT Balance Assessment Sitting Balance Static Sitting Balance Ability Good Dynamic Sitting Balance Ability Good Standing Balance Static Standing Balance Ability Fair Dynamic Standing Balance Ability Fair Device Used 4WW Balance Tests Dominguez Balance Test Dominguez Balance Test Score 38/56 Dominguez Impairment Rating 20 to 39% Impaired (Score 34- 44) Dominguez Balance Assessment Evaluation Sitting to Standing Ability Independent w/out Hands Unsupported Stance Supervision- 2 minutes Sitting Unsupported, Feet on Floor Safely- 2 minutes Standing to Sitting Ability Safely, Minimal Hand Use Transfer Ability Safely, Minimal Hand Use Unsupported Stance- Eyes Closed Supervision, 10 seconds Unsupported Stance- Eyes Open Independent, <30 seconds Reaching Forward Standing Safely, 2 inches Pick- Up Object From Floor Supervision Look Behind Shoulder - Standing Turns Sideways Only Turning 360 Degrees Turns slowly, but safely Unsupported Stance, Alternating Feet on 4 Steps w/Supervision Stair Unsupported Tandem Stance Small Step- 30 seconds Unilateral Leg Stance Lifts Leg/Unable to Hold Total Score Dominguez Total Score (out of 56 points) 38 Dominguez Impairment Rating 20 to 39% Impaired (Score 34- 44) Delgado Fall Scale Copyright Permission PT-OP-E Functional Tests Start: 05/26/22 16:48 Freq: Status: Active Protocol: Document 05/26/22 15:15 DCW (Rec: 05/26/22 17:[address] [facility] [id number]) Functional Tests Timed Up and Go (TUG) Score 20.01 /s AD Comments Three-trial average (24.87, 19 .54, 15.61) TUG Impairment Rating 100% Impaired (Score 20) PT-OP-M Strength Start: 05/26/22 16:48 Freq: Status: Active Protocol: Document 05/26/22 15:15 DCW (Rec: 05/26/22 17:[address] [facility] [id number]) Hip Strength Hip Manual Muscle Testing Right Flexion (L2) 3+ Fair+ Abduction 4- Good- Adduction 4- Good- Left Flexion (L2) 4 Good Abduction 4 Good Adduction 4 Good Knee Strength Knee Manual Muscle Testing Right Flexion (S2) 3+ Fair+ Extension (L3) 4 Good Comments Pt c/o left low back pain with right knee MMT Left Flexion (S2) 4+ Good+ Extension (L3) 4+ Good+ Ankle/Foot Strength Ankle and Foot Manual Muscle Testing Right Dorsiflexion (L4) 3+ Fair+ Plantarflexion (S1) 3+ Fair+ Left Dorsiflexion (L4) 4 Good Plantarflexion (S1) 4- Good- PT-OP-Q Treatments Start: 05/26/22 16:48 Freq: Status: Active Protocol: Document 06/07/22 11:15 DCW (Rec: 06/07/22 11:51 DCW [id number]) Cardio Equipment Recumbent Elliptical (Biodex) Duration (Minutes) 5 Resistance 3 Seat Position 8 Other Rest break @ 2:40 Gym Equipment Shuttle Recovery Unilateral Squats Resistance 62# Shuttle Recovery Platform Stable Reps/Time x20 each Bilateral Squats Resistance 100# Shuttle Recovery Platform Stable Reps/Time x15 Therapeutic Exercises Standing Exercises Lunge Standing Exercise Name Lunges at rail Abduction Standing Exercise Name Hip Abduction Side bilateral Resistance Red Extension Standing Exercise Name Hip Extension Side bilateral Resistance Red PT-OP-T Assessment and Plan Start: 05/26/22 16:48 Freq: Status: Active Protocol: Document 06/07/22 11:15 DCW (Rec: 06/07/22 11:51 DCW [id number]) Physical Therapy Assessment Impairments Impairments Activity Tolerance,Balance, Functional Activities, Functional Mobility,Gait, Posture,ROM,Soft Tissue Mobility,Strength Goals Three Impairment Right LE MMT scores of 3+/5 and 4-/5 in multiple planes Submarine Diver Goal (LTG) Pt to increase R LE MMT to at least 4/5 in all planes to demonstrate improved LE strength to help decrease pt's fear of falling LTG Duration 08/24/22 Two Impairment Pt presents with an increased falls risk, per Dominguez (38/56) and TUG (20.01) Short Term Goal (STG) Pt to demonstrate decreased falls risk by improving score on the TUG by at least six seconds to 14 STG Duration 07/10/22 Custodial Goal (LTG) Pt to improve Dominguez score by at least 7 points to 45/56 in order to demonstrate decreased falls risk and improved safety in ambulation LTG Duration 08/24/22 One Impairment Pt does not have an appropriate home exercise program Short Term Goal (STG) Pt to be independent and compliant with an appropriate HEP STG Duration 07/10/22 Assessment Summary Assessment Noticeable increased SOB today , O2 sat dipped down to ~92% multiple times, able to rebound back up to 95% within 3-4 minutes. 30 minutes into treatment session, pt admitted that she felt like she had to call it a day, was too fatigued and out of breath to continue. Physical Therapy Plan Frequency and Duration Frequency of Treatment 2x/Week Plan of Care Start Date 05/26/22 Plan of Care End Date 08/24/22 Therapeutic Interventions Therapeutic Interventions Aquatic Therapy,Balance Training,Gait Training,Home Exercise Program,Joint Mobilizations,Manual Therapy, Neuromuscular Re-education, Patient/Caregiver Education, Self-Care/Home Management,Soft Tissue Mobilization, Therapeutic Activities, Therapeutic Exercises Modalities Cold Pack/Ice Massage,Electric Stimulation,Hot Packs, Ultrasound Next Visit Focus/Plan Next Note Type Treatment Note Next Visit Plan Activity tolerance, balance training, strengthening
--- NOTE | 2022-06-10 12:46 | PT.OTN ---
Current Diagnoses Other abnormalities of gait and mobility (06/10/22) Repeated falls (06/10/22) Weakness (06/10/22) Physical Therapy Treatment Note PT-OP-A Visit Information Start: 05/26/22 16:48 Freq: Status: Active Protocol: Document 06/10/22 12:07 DCW (Rec: 06/10/22 12:46 DCW [id number]) Out-Patient Physical Therapy Visit Information Visit Information Visit Type Treatment Note Visit Start Time 12:07 Visit Stop Time 12:45 Total Visit Minutes 38 Visit Number 6 Number of OBEDIENCE TRAINER Visits 0 Evaluation Information Evaluation Date 05/26/22 PT-OP-B Current Condition Start: 05/26/22 16:48 Freq: Status: Active Protocol: Document 05/26/22 15:15 DCW (Rec: 05/26/22 17:37 DCW [id number]) Current Condition History of Current Condition Onset Date Multi-year history Current Complaints Fear of falling, decreased balance, weakness, fall history History of Current Condition Pt is a 77 year old female presenting with a long- standing history of weakness, with declining balance and noticeable increased fear of falling. Pt has a very complicated medical history which includes 18 back surgeries, history of falls, a -fib, HTN, CVA, COPD, L VERONICA, and R TKA, among many other different diagnoses. Pt reports her most recent fall occurred three weeks ago, but there have been many. Pt ambulates with a 4WW at all times. Additionally, pt's COPD greatly limits her activity tolerance and ability to participate in most activity. Prior Treatments and Tests Pt has undergone therapy at this clinic previously, notes that she went from relying on her 4WW to walking without any assistance, however also notes that that was many years and about nine surgeries ago, so I might not make that good of improvement this time . Treatment Goals Patient/Caregiver Goals Decrease falls risk, decrease fear of falling, improve leg strength PT-OP-C Subjective Start: 05/26/22 16:48 Freq: Status: Active Protocol: Document 06/10/22 12:07 DCW (Rec: 06/10/22 12:46 DCW [id number]) OP-PT Subjective Patient Comments Patient Comments I'm doing better today. I was pretty tired again yesterday, too. Everything is just so sore. PT-OP-D Balance Start: 05/26/22 16:48 Freq: Status: Active Protocol: Document 05/26/22 15:15 DCW (Rec: 05/26/22 17:37 DCW [id number]) OP-PT Balance Assessment Sitting Balance Static Sitting Balance Ability Good Dynamic Sitting Balance Ability Good Standing Balance Static Standing Balance Ability Fair Dynamic Standing Balance Ability Fair Device Used 4WW Balance Tests Dominguez Balance Test Dominguez Balance Test Score 38/56 Dominguez Impairment Rating 20 to 39% Impaired (Score 34- 44) Dominguez Balance Assessment Evaluation Sitting to Standing Ability Independent w/out Hands Unsupported Stance Supervision- 2 minutes Sitting Unsupported, Feet on Floor Safely- 2 minutes Standing to Sitting Ability Safely, Minimal Hand Use Transfer Ability Safely, Minimal Hand Use Unsupported Stance- Eyes Closed Supervision, 10 seconds Unsupported Stance- Eyes Open Independent, <30 seconds Reaching Forward Standing Safely, 2 inches Pick- Up Object From Floor Supervision Look Behind Shoulder - Standing Turns Sideways Only Turning 360 Degrees Turns slowly, but safely Unsupported Stance, Alternating Feet on 4 Steps w/Supervision Stair Unsupported Tandem Stance Small Step- 30 seconds Unilateral Leg Stance Lifts Leg/Unable to Hold Total Score Dominguez Total Score (out of 56 points) 38 Dominguez Impairment Rating 20 to 39% Impaired (Score 34- 44) Delgado Fall Scale Copyright Permission PT-OP-E Functional Tests Start: 05/26/22 16:48 Freq: Status: Active Protocol: Document 05/26/22 15:15 DCW (Rec: 05/26/22 17:37 [facility] [id number]) Functional Tests Timed Up and Go (TUG) Score 20.01 /s AD Comments Three-trial average (24.87, 19 .54, 15.61) TUG Impairment Rating 100% Impaired (Score 20) PT-OP-M Strength Start: 05/26/22 16:48 Freq: Status: Active Protocol: Document 05/26/22 15:15 DCW (Rec: 05/26/22 17:37 [facility] [id number]) Hip Strength Hip Manual Muscle Testing Right Flexion (L2) 3+ Fair+ Abduction 4- Good- Adduction 4- Good- Left Flexion (L2) 4 Good Abduction 4 Good Adduction 4 Good Knee Strength Knee Manual Muscle Testing Right Flexion (S2) 3+ Fair+ Extension (L3) 4 Good Comments Pt c/o left low back pain with right knee MMT Left Flexion (S2) 4+ Good+ Extension (L3) 4+ Good+ Ankle/Foot Strength Ankle and Foot Manual Muscle Testing Right Dorsiflexion (L4) 3+ Fair+ Plantarflexion (S1) 3+ Fair+ Left Dorsiflexion (L4) 4 Good Plantarflexion (S1) 4- Good- PT-OP-Q Treatments Start: 05/26/22 16:48 Freq: Status: Active Protocol: Document 06/10/22 12:07 DCW (Rec: 06/10/22 12:46 DCW [id number]) Cardio Equipment Recumbent Elliptical (Biodex) Duration (Minutes) 6 Resistance 3 Seat Position 8 Gym Equipment Shuttle Recovery Unilateral Squats Resistance 62# Shuttle Recovery Platform Stable Reps/Time x20 each Bilateral Squats Resistance 100# Shuttle Recovery Platform Stable Reps/Time x15, x20 Therapeutic Exercises Standing Exercises Abduction Standing Exercise Name Hip Abduction Side bilateral Resistance Red Extension Standing Exercise Name Hip Extension Side bilateral Resistance Red PT-OP-T Assessment and Plan Start: 05/26/22 16:48 Freq: Status: Active Protocol: Document 06/10/22 12:07 DCW (Rec: 06/10/22 12:46 DCW [id number]) Physical Therapy Assessment Impairments Impairments Activity Tolerance,Balance, Functional Activities, Functional Mobility,Gait, Posture,ROM,Soft Tissue Mobility,Strength Goals Three Impairment Right LE MMT scores of 3+/5 and 4-/5 in multiple planes [facility] Goal (LTG) Pt to increase R LE MMT to at least 4/5 in all planes to demonstrate improved LE strength to help decrease pt's fear of falling LTG Duration 08/24/22 Two Impairment Pt presents with an increased falls risk, per Dominguez (38/56) and TUG (20.01) Short Term Goal (STG) Pt to demonstrate decreased falls risk by improving score on the TUG by at least six seconds to 14 STG Duration 07/10/22 [facility] Goal (LTG) Pt to improve Dominguez score by at least 7 points to 45/56 in order to demonstrate decreased falls risk and improved safety in ambulation LTG Duration 08/24/22 One Impairment Pt does not have an appropriate home exercise program Short Term Goal (STG) Pt to be independent and compliant with an appropriate HEP STG Duration 07/10/22 Assessment Summary Assessment Pt running late today, rushed into therapy, clearly SOB, started out O2 sat at 93%, but after sitting and calming down, quickly returned to 95%. Throughout session, however, quickly fatigued and repeatedly dropped down to 92% , noted SOB, required rest breaks for recovery. Minimal ability to participate fully in PT session. Physical Therapy Plan Frequency and Duration Frequency of Treatment 2x/Week Plan of Care Start Date 05/26/22 Plan of Care End Date 08/24/22 Therapeutic Interventions Therapeutic Interventions Aquatic Therapy,Balance Training,Gait Training,Home Exercise Program,Joint Mobilizations,Manual Therapy, Neuromuscular Re-education, Patient/Caregiver Education, Self-Care/Home Management,Soft Tissue Mobilization, Therapeutic Activities, Therapeutic Exercises Modalities Cold Pack/Ice Massage,Electric Stimulation,Hot Packs, Ultrasound Next Visit Focus/Plan Next Note Type Treatment Note Next Visit Plan Activity tolerance, balance training, strengthening
--- NOTE | 2022-06-17 11:59 | PT.OTN ---
Current Diagnoses Other abnormalities of gait and mobility (06/17/22) Repeated falls (06/17/22) Weakness (06/17/22) Physical Therapy Treatment Note PT-OP-A Visit Information Start: 05/26/22 16:48 Freq: Status: Active Protocol: Document 06/17/22 11:18 DCW (Rec: 06/17/22 11:59 DCW [id number]) Out-Patient Physical Therapy Visit Information Visit Information Visit Type Treatment Note Visit Start Time 11:18 Visit Stop Time 12:00 Total Visit Minutes 42 Visit Number 7 Number of CEMENT TRUCK DRIVER Visits 0 Evaluation Information Evaluation Date 05/26/22 PT-OP-B Current Condition Start: 05/26/22 16:48 Freq: Status: Active Protocol: Document 05/26/22 15:15 DCW (Rec: 05/26/22 17:37 DCW [id number]) Current Condition History of Current Condition Onset Date Multi-year history Current Complaints Fear of falling, decreased balance, weakness, fall history History of Current Condition Pt is a 77 year old female presenting with a long- standing history of weakness, with declining balance and noticeable increased fear of falling. Pt has a very complicated medical history which includes 18 back surgeries, history of falls, a -fib, HTN, CVA, COPD, L VERONICA, and R TKA, among many other different diagnoses. Pt reports her most recent fall occurred three weeks ago, but there have been many. Pt ambulates with a 4WW at all times. Additionally, pt's COPD greatly limits her activity tolerance and ability to participate in most activity. Prior Treatments and Tests Pt has undergone therapy at this clinic previously, notes that she went from relying on her 4WW to walking without any assistance, however also notes that that was many years and about nine surgeries ago, so I might not make that good of improvement this time . Treatment Goals Patient/Caregiver Goals Decrease falls risk, decrease fear of falling, improve leg strength PT-OP-C Subjective Start: 05/26/22 16:48 Freq: Status: Active Protocol: Document 06/17/22 11:18 DCW (Rec: 06/17/22 11:59 DCW [id number]) OP-PT Subjective Patient Comments Patient Comments I'm doing better than I have been. Reports she went to [employer] yesterday, did a mile on the stepper, and also did the leg press. PT-OP-D Balance Start: 05/26/22 16:48 Freq: Status: Active Protocol: Document 05/26/22 15:15 DCW (Rec: 05/26/22 17:37 DCW [id number]) OP-PT Balance Assessment Sitting Balance Static Sitting Balance Ability Good Dynamic Sitting Balance Ability Good Standing Balance Static Standing Balance Ability Fair Dynamic Standing Balance Ability Fair Device Used 4WW Balance Tests Dominguez Balance Test Dominguez Balance Test Score 38/56 Dominguez Impairment Rating 20 to 39% Impaired (Score 34- 44) Dominguez Balance Assessment Evaluation Sitting to Standing Ability Independent w/out Hands Unsupported Stance Supervision- 2 minutes Sitting Unsupported, Feet on Floor Safely- 2 minutes Standing to Sitting Ability Safely, Minimal Hand Use Transfer Ability Safely, Minimal Hand Use Unsupported Stance- Eyes Closed Supervision, 10 seconds Unsupported Stance- Eyes Open Independent, <30 seconds Reaching Forward Standing Safely, 2 inches Pick- Up Object From Floor Supervision Look Behind Shoulder - Standing Turns Sideways Only Turning 360 Degrees Turns slowly, but safely Unsupported Stance, Alternating Feet on 4 Steps w/Supervision Stair Unsupported Tandem Stance Small Step- 30 seconds Unilateral Leg Stance Lifts Leg/Unable to Hold Total Score Dominguez Total Score (out of 56 points) 38 Dominguez Impairment Rating 20 to 39% Impaired (Score 34- 44) Delgado Fall Scale Copyright Permission PT-OP-E Functional Tests Start: 05/26/22 16:48 Freq: Status: Active Protocol: Document 05/26/22 15:15 DCW (Rec: 05/26/22 17:37 DCW [id number]) Functional Tests Timed Up and Go (TUG) Score 20.01 /s AD Comments Three-trial average (24.87, 19 .54, 15.61) TUG Impairment Rating 100% Impaired (Score 20) PT-OP-M Strength Start: 05/26/22 16:48 Freq: Status: Active Protocol: Document 05/26/22 15:15 DCW (Rec: 05/26/22 17:37 DCW [id number]) Hip Strength Hip Manual Muscle Testing Right Flexion (L2) 3+ Fair+ Abduction 4- Good- Adduction 4- Good- Left Flexion (L2) 4 Good Abduction 4 Good Adduction 4 Good Knee Strength Knee Manual Muscle Testing Right Flexion (S2) 3+ Fair+ Extension (L3) 4 Good Comments Pt c/o left low back pain with right knee MMT Left Flexion (S2) 4+ Good+ Extension (L3) 4+ Good+ Ankle/Foot Strength Ankle and Foot Manual Muscle Testing Right Dorsiflexion (L4) 3+ Fair+ Plantarflexion (S1) 3+ Fair+ Left Dorsiflexion (L4) 4 Good Plantarflexion (S1) 4- Good- PT-OP-Q Treatments Start: 05/26/22 16:48 Freq: Status: Active Protocol: Document 06/17/22 11:18 DCW (Rec: 06/17/22 11:59 DCW [id number]) Cardio Equipment Recumbent Stepper (Sci-Fit) Duration (Minutes) 5 Resistance 3 Seat Position 11 Gym Equipment Shuttle Recovery Unilateral Squats Resistance 62# Shuttle Recovery Platform Stable Reps/Time x20 each Bilateral Squats Resistance 100# Shuttle Recovery Platform Stable Reps/Time x10, x20 Therapeutic Exercises Sitting Exercises Marching Sitting Exercise Name Seated Marching Ankle Flexion Sitting Exercise Name Heel raises/toe raises Side bilateral Standing Exercises Abduction Standing Exercise Name Hip Abduction Side bilateral Resistance Red Extension Standing Exercise Name Hip Extension Side bilateral Resistance Red Neuro Re-Education Treatment Balance Activities Hurdles Details Hurdles Equipment // bars Comments Fwd, Side-stepping Foam Stance Details NBOS Surface Blue Equipment // bars PT-OP-T Assessment and Plan Start: 05/26/22 16:48 Freq: Status: Active Protocol: Document 06/17/22 11:18 DCW (Rec: 06/17/22 11:59 DCW [id number]) Physical Therapy Assessment Impairments Impairments Activity Tolerance,Balance, Functional Activities, Functional Mobility,Gait, Posture,ROM,Soft Tissue Mobility,Strength Goals Three Impairment Right LE MMT scores of 3+/5 and 4-/5 in multiple planes Credit Historian Goal (LTG) Pt to increase R LE MMT to at least 4/5 in all planes to demonstrate improved LE strength to help decrease pt's fear of falling LTG Duration 08/24/22 Two Impairment Pt presents with an increased falls risk, per Dominguez (38/56) and TUG (20.01) Short Term Goal (STG) Pt to demonstrate decreased falls risk by improving score on the TUG by at least six seconds to 14 STG Duration 07/10/22 Credit Historian Goal (LTG) Pt to improve Dominguez score by at least 7 points to 45/56 in order to demonstrate decreased falls risk and improved safety in ambulation LTG Duration 08/24/22 One Impairment Pt does not have an appropriate home exercise program Short Term Goal (STG) Pt to be independent and compliant with an appropriate HEP STG Duration 07/10/22 Assessment Summary Assessment Pt tolerated treatment much better today, no instances of SOB, able to fully participate in all activities with minimal rest breaks. Physical Therapy Plan Frequency and Duration Frequency of Treatment 2x/Week Plan of Care Start Date 05/26/22 Plan of Care End Date 08/24/22 Therapeutic Interventions Therapeutic Interventions Aquatic Therapy,Balance Training,Gait Training,Home Exercise Program,Joint Mobilizations,Manual Therapy, Neuromuscular Re-education, Patient/Caregiver Education, Self-Care/Home Management,Soft Tissue Mobilization, Therapeutic Activities, Therapeutic Exercises Modalities Cold Pack/Ice Massage,Electric Stimulation,Hot Packs, Ultrasound Next Visit Focus/Plan Next Note Type Treatment Note Next Visit Plan Activity tolerance, balance training, strengthening
--- NOTE | 2022-06-29 15:15 | PT.OTN ---
Current Diagnoses Other abnormalities of gait and mobility (06/29/22) Repeated falls (06/29/22) Weakness (06/29/22) Physical Therapy Treatment Note PT-OP-A Visit Information Start: 05/26/22 16:48 Freq: Status: Active Protocol: Document 06/29/22 14:38 DCW (Rec: 06/29/22 15:12 DCW [id number]) Out-Patient Physical Therapy Visit Information Visit Information Visit Type Treatment Note Visit Start Time 14:36 Visit Stop Time 15:15 Total Visit Minutes 41 Visit Number 8 Number of PRESS CATCHER Visits 0 Evaluation Information Evaluation Date 05/26/22 PT-OP-B Current Condition Start: 05/26/22 16:48 Freq: Status: Active Protocol: Document 05/26/22 15:15 DCW (Rec: 05/26/22 17:37 DCW [id number]) Current Condition History of Current Condition Onset Date Multi-year history Current Complaints Fear of falling, decreased balance, weakness, fall history History of Current Condition Pt is a 77 year old female presenting with a long- standing history of weakness, with declining balance and noticeable increased fear of falling. Pt has a very complicated medical history which includes 18 back surgeries, history of falls, a -fib, HTN, CVA, COPD, L VERONICA, and R TKA, among many other different diagnoses. Pt reports her most recent fall occurred three weeks ago, but there have been many. Pt ambulates with a 4WW at all times. Additionally, pt's COPD greatly limits her activity tolerance and ability to participate in most activity. Prior Treatments and Tests Pt has undergone therapy at this clinic previously, notes that she went from relying on her 4WW to walking without any assistance, however also notes that that was many years and about nine surgeries ago, so I might not make that good of improvement this time . Treatment Goals Patient/Caregiver Goals Decrease falls risk, decrease fear of falling, improve leg strength PT-OP-C Subjective Start: 05/26/22 16:48 Freq: Status: Active Protocol: Document 06/29/22 14:38 DCW (Rec: 06/29/22 15:12 DCW [id number]) OP-PT Subjective Patient Comments Patient Comments Pt reports she is going in next week for some pulmonary testing, and is expecting a referral for cardiopulmonary therapy. PT-OP-D Balance Start: 05/26/22 16:48 Freq: Status: Active Protocol: Document 05/26/22 15:15 DCW (Rec: 05/26/22 17:37 DCW [id number]) OP-PT Balance Assessment Sitting Balance Static Sitting Balance Ability Good Dynamic Sitting Balance Ability Good Standing Balance Static Standing Balance Ability Fair Dynamic Standing Balance Ability Fair Device Used 4WW Balance Tests Dominguez Balance Test Dominguez Balance Test Score 38/56 Dominguez Impairment Rating 20 to 39% Impaired (Score 34- 44) Dominguez Balance Assessment Evaluation Sitting to Standing Ability Independent w/out Hands Unsupported Stance Supervision- 2 minutes Sitting Unsupported, Feet on Floor Safely- 2 minutes Standing to Sitting Ability Safely, Minimal Hand Use Transfer Ability Safely, Minimal Hand Use Unsupported Stance- Eyes Closed Supervision, 10 seconds Unsupported Stance- Eyes Open Independent, <30 seconds Reaching Forward Standing Safely, 2 inches Pick- Up Object From Floor Supervision Look Behind Shoulder - Standing Turns Sideways Only Turning 360 Degrees Turns slowly, but safely Unsupported Stance, Alternating Feet on 4 Steps w/Supervision Stair Unsupported Tandem Stance Small Step- 30 seconds Unilateral Leg Stance Lifts Leg/Unable to Hold Total Score Dominguez Total Score (out of 56 points) 38 Dominguez Impairment Rating 20 to 39% Impaired (Score 34- 44) Delgado Fall Scale Copyright Permission PT-OP-E Functional Tests Start: 05/26/22 16:48 Freq: Status: Active Protocol: Document 05/26/22 15:15 DCW (Rec: 05/26/22 17:37 DC [id number]) Functional Tests Timed Up and Go (TUG) Score 20.01 /s AD Comments Three-trial average (24.87, 19 .54, 15.61) TUG Impairment Rating 100% Impaired (Score 20) PT-OP-M Strength Start: 05/26/22 16:48 Freq: Status: Active Protocol: Document 05/26/22 15:15 DCW (Rec: 05/26/22 17:37 DCW [id number]) Hip Strength Hip Manual Muscle Testing Right Flexion (L2) 3+ Fair+ Abduction 4- Good- Adduction 4- Good- Left Flexion (L2) 4 Good Abduction 4 Good Adduction 4 Good Knee Strength Knee Manual Muscle Testing Right Flexion (S2) 3+ Fair+ Extension (L3) 4 Good Comments Pt c/o left low back pain with right knee MMT Left Flexion (S2) 4+ Good+ Extension (L3) 4+ Good+ Ankle/Foot Strength Ankle and Foot Manual Muscle Testing Right Dorsiflexion (L4) 3+ Fair+ Plantarflexion (S1) 3+ Fair+ Left Dorsiflexion (L4) 4 Good Plantarflexion (S1) 4- Good- PT-OP-Q Treatments Start: 05/26/22 16:48 Freq: Status: Active Protocol: Document 06/29/22 14:38 DCW (Rec: 06/29/22 15:12 DCW [id number]) Cardio Equipment Recumbent Elliptical (Biodex) Duration (Minutes) 5 Resistance 3 Seat Position 8 Other Rest break at 2:30 Gym Equipment Shuttle Recovery Unilateral Squats Resistance 62# Shuttle Recovery Platform Stable Reps/Time x20 each Bilateral Squats Resistance 100# Shuttle Recovery Platform Stable Reps/Time x10, x20 Therapeutic Exercises Standing Exercises Abduction Standing Exercise Name Hip Abduction Side bilateral Resistance Red Extension Standing Exercise Name Hip Extension Side bilateral Resistance Red Neuro Re-Education Treatment Balance Activities Hurdles Details Hurdles Equipment // bars Comments Fwd, Side-stepping Foam Stance Details NBOS Surface Blue Equipment // bars PT-OP-T Assessment and Plan Start: 05/26/22 16:48 Freq: Status: Active Protocol: Document 06/29/22 14:38 DCW (Rec: 06/29/22 15:12 DCW [id number]) Physical Therapy Assessment Impairments Impairments Activity Tolerance,Balance, Functional Activities, Functional Mobility,Gait, Posture,ROM,Soft Tissue Mobility,Strength Goals Three Impairment Right LE MMT scores of 3+/5 and 4-/5 in multiple planes Pneumatic Systems Operator Goal (LTG) Pt to increase R LE MMT to at least 4/5 in all planes to demonstrate improved LE strength to help decrease pt's fear of falling LTG Duration 08/24/22 Two Impairment Pt presents with an increased falls risk, per Dominguez (38/56) and TUG (20.01) Short Term Goal (STG) Pt to demonstrate decreased falls risk by improving score on the TUG by at least six seconds to 14 STG Duration 07/10/22 Pneumatic Systems Operator Goal (LTG) Pt to improve Dominguez score by at least 7 points to 45/56 in order to demonstrate decreased falls risk and improved safety in ambulation LTG Duration 08/24/22 One Impairment Pt does not have an appropriate home exercise program Short Term Goal (STG) Pt to be independent and compliant with an appropriate HEP STG Duration 07/10/22 Assessment Summary Assessment Pt O2 sat much more consistent today, remained at 95% at all times, except for brief drop to 93% after going over hurdles in // bars. Physical Therapy Plan Frequency and Duration Frequency of Treatment 2x/Week Plan of Care Start Date 05/26/22 Plan of Care End Date 08/24/22 Therapeutic Interventions Therapeutic Interventions Aquatic Therapy,Balance Training,Gait Training,Home Exercise Program,Joint Mobilizations,Manual Therapy, Neuromuscular Re-education, Patient/Caregiver Education, Self-Care/Home Management,Soft Tissue Mobilization, Therapeutic Activities, Therapeutic Exercises Modalities Cold Pack/Ice Massage,Electric Stimulation,Hot Packs, Ultrasound Next Visit Focus/Plan Next Note Type Treatment Note Next Visit Plan Activity tolerance, balance training, strengthening
--- NOTE | 2022-07-07 15:18 | PT.OTN ---
Current Diagnoses Other abnormalities of gait and mobility (07/07/22) Repeated falls (07/07/22) Weakness (07/07/22) Physical Therapy Treatment Note PT-OP-A Visit Information Start: 05/26/22 16:48 Freq: Status: Active Protocol: Document 07/07/22 14:35 DCW (Rec: 07/07/22 15:18 DCW [id number]) Out-Patient Physical Therapy Visit Information Visit Information Visit Type Treatment Note Visit Start Time 14:35 Visit Stop Time 15:05 Total Visit Minutes 30 Visit Number 9 Number of CENTRAL COMMUNICATIONS SPECIALIST Visits 0 Evaluation Information Evaluation Date 05/26/22 PT-OP-B Current Condition Start: 05/26/22 16:48 Freq: Status: Active Protocol: Document 05/26/22 15:15 DCW (Rec: 05/26/22 17:37 DCW [id number]) Current Condition History of Current Condition Onset Date Multi-year history Current Complaints Fear of falling, decreased balance, weakness, fall history History of Current Condition Pt is a 77 year old female presenting with a long- standing history of weakness, with declining balance and noticeable increased fear of falling. Pt has a very complicated medical history which includes 18 back surgeries, history of falls, a -fib, HTN, CVA, COPD, L VERONICA, and R TKA, among many other different diagnoses. Pt reports her most recent fall occurred three weeks ago, but there have been many. Pt ambulates with a 4WW at all times. Additionally, pt's COPD greatly limits her activity tolerance and ability to participate in most activity. Prior Treatments and Tests Pt has undergone therapy at this clinic previously, notes that she went from relying on her 4WW to walking without any assistance, however also notes that that was many years and about nine surgeries ago, so I might not make that good of improvement this time . Treatment Goals Patient/Caregiver Goals Decrease falls risk, decrease fear of falling, improve leg strength PT-OP-C Subjective Start: 05/26/22 16:48 Freq: Status: Active Protocol: Document 07/07/22 14:35 DCW (Rec: 07/07/22 15:18 DCW [id number]) OP-PT Subjective Patient Comments Patient Comments Pt reports her breathing feels pretty good today, but her baseline O2 sat before activity measured 89%. After rest and PLB, increased to 94% . PT-OP-D Balance Start: 05/26/22 16:48 Freq: Status: Active Protocol: Document 05/26/22 15:15 DCW (Rec: 05/26/22 17:37 DCW [id number]) OP-PT Balance Assessment Sitting Balance Static Sitting Balance Ability Good Dynamic Sitting Balance Ability Good Standing Balance Static Standing Balance Ability Fair Dynamic Standing Balance Ability Fair Device Used 4WW Balance Tests Dominguez Balance Test Dominguez Balance Test Score 38/56 Dominguez Impairment Rating 20 to 39% Impaired (Score 34- 44) Dominguez Balance Assessment Evaluation Sitting to Standing Ability Independent w/out Hands Unsupported Stance Supervision- 2 minutes Sitting Unsupported, Feet on Floor Safely- 2 minutes Standing to Sitting Ability Safely, Minimal Hand Use Transfer Ability Safely, Minimal Hand Use Unsupported Stance- Eyes Closed Supervision, 10 seconds Unsupported Stance- Eyes Open Independent, <30 seconds Reaching Forward Standing Safely, 2 inches Pick- Up Object From Floor Supervision Look Behind Shoulder - Standing Turns Sideways Only Turning 360 Degrees Turns slowly, but safely Unsupported Stance, Alternating Feet on 4 Steps w/Supervision Stair Unsupported Tandem Stance Small Step- 30 seconds Unilateral Leg Stance Lifts Leg/Unable to Hold Total Score Dominguez Total Score (out of 56 points) 38 Dominguez Impairment Rating 20 to 39% Impaired (Score 34- 44) Delgado Fall Scale Copyright Permission PT-OP-E Functional Tests Start: 05/26/22 16:48 Freq: Status: Active Protocol: Document 05/26/22 15:15 DCW (Rec: 05/26/22 17:37 DCW [id number]) Functional Tests Timed Up and Go (TUG) Score 20.01 /s AD Comments Three-trial average (24.87, 19 .54, 15.61) TUG Impairment Rating 100% Impaired (Score 20) PT-OP-M Strength Start: 05/26/22 16:48 Freq: Status: Active Protocol: Document 05/26/22 15:15 DCW (Rec: 05/26/22 17:37 DCW [id number]) Hip Strength Hip Manual Muscle Testing Right Flexion (L2) 3+ Fair+ Abduction 4- Good- Adduction 4- Good- Left Flexion (L2) 4 Good Abduction 4 Good Adduction 4 Good Knee Strength Knee Manual Muscle Testing Right Flexion (S2) 3+ Fair+ Extension (L3) 4 Good Comments Pt c/o left low back pain with right knee MMT Left Flexion (S2) 4+ Good+ Extension (L3) 4+ Good+ Ankle/Foot Strength Ankle and Foot Manual Muscle Testing Right Dorsiflexion (L4) 3+ Fair+ Plantarflexion (S1) 3+ Fair+ Left Dorsiflexion (L4) 4 Good Plantarflexion (S1) 4- Good- PT-OP-Q Treatments Start: 05/26/22 16:48 Freq: Status: Active Protocol: Document 07/07/22 14:35 DCW (Rec: 07/07/22 15:18 DCW [id number]) Cardio Equipment Recumbent Elliptical (Biodex) Duration (Minutes) 3 Resistance 3 Seat Position 7 Therapeutic Exercises Standing Exercises Abduction Standing Exercise Name Hip Abduction Side bilateral Resistance Red Extension Standing Exercise Name Hip Extension Side bilateral Resistance Red Neuro Re-Education Treatment Balance Activities NBOS Details NBOS Surface Firm Equipment // bars Hurdles Details Hurdles Equipment // bars Comments Fwd, Side-stepping Foam Stance Details NBOS Surface Blue Equipment // bars PT-OP-T Assessment and Plan Start: 05/26/22 16:48 Freq: Status: Active Protocol: Document 07/07/22 14:35 DCW (Rec: 07/07/22 15:18 DCW [id number]) Physical Therapy Assessment Impairments Impairments Activity Tolerance,Balance, Functional Activities, Functional Mobility,Gait, Posture,ROM,Soft Tissue Mobility,Strength Goals Three Impairment Right LE MMT scores of 3+/5 and 4-/5 in multiple planes Physical Therapy Aide Goal (LTG) Pt to increase R LE MMT to at least 4/5 in all planes to demonstrate improved LE strength to help decrease pt's fear of falling LTG Duration 08/24/22 Two Impairment Pt presents with an increased falls risk, per Doimnguez (38/56) and TUG (20.01) Short Term Goal (STG) Pt to demonstrate decreased falls risk by improving score on the TUG by at least six seconds to 14 STG Duration 07/10/22 Physical Therapy Aide Goal (LTG) Pt to improve Dominguez score by at least 7 points to 45/56 in order to demonstrate decreased falls risk and improved safety in ambulation LTG Duration 08/24/22 One Impairment Pt does not have an appropriate home exercise program Short Term Goal (STG) Pt to be independent and compliant with an appropriate HEP STG Duration 07/10/22 Assessment Summary Assessment Pt restricted with activity today due to consistently decreased O2 sat, fell to 89- 93% with every activity, took increased time to return to 94 -95%. Higher than usual time spent resting, eventually decided to stop early due to pt fatigue and SOB. Pt is scheduled tomorrow for a pulmonary function test. Physical Therapy Plan Frequency and Duration Frequency of Treatment 2x/Week Plan of Care Start Date 05/26/22 Plan of Care End Date 08/24/22 Therapeutic Interventions Therapeutic Interventions Aquatic Therapy,Balance Training,Gait Training,Home Exercise Program,Joint Mobilizations,Manual Therapy, Neuromuscular Re-education, Patient/Caregiver Education, Self-Care/Home Management,Soft Tissue Mobilization, Therapeutic Activities, Therapeutic Exercises Modalities Cold Pack/Ice Massage,Electric Stimulation,Hot Packs, Ultrasound Next Visit Focus/Plan Next Note Type Treatment Note Next Visit Plan Activity tolerance, balance training, strengthening
--- NOTE | 2022-09-07 15:22 | PT.OTN ---
Current Diagnoses Other abnormalities of gait and mobility (09/07/22) Repeated falls (09/07/22) Weakness (09/07/22) Physical Therapy Treatment Note PT-OP-A Visit Information Start: 05/26/22 16:48 Freq: Status: Active Protocol: Document 09/07/22 14:34 DCW (Rec: 09/07/22 15:22 DCW [id number]) Out-Patient Physical Therapy Visit Information Visit Information Visit Type Progress Note Visit Start Time 14:34 Visit Stop Time 15:15 Total Visit Minutes 41 Visit Number 10 Number of POLE CLIMBER Visits 0 Evaluation Information Evaluation Date 05/26/22 PT-OP-B Current Condition Start: 05/26/22 16:48 Freq: Status: Active Protocol: Document 05/26/22 15:15 DCW (Rec: 05/26/22 17:37 DCW [id number]) Current Condition History of Current Condition Onset Date Multi-year history Current Complaints Fear of falling, decreased balance, weakness, fall history History of Current Condition Pt is a 77 year old female presenting with a long- standing history of weakness, with declining balance and noticeable increased fear of falling. Pt has a very complicated medical history which includes 18 back surgeries, history of falls, a -fib, HTN, CVA, COPD, L VERONICA, and R TKA, among many other different diagnoses. Pt reports her most recent fall occurred three weeks ago, but there have been many. Pt ambulates with a 4WW at all times. Additionally, pt's COPD greatly limits her activity tolerance and ability to participate in most activity. Prior Treatments and Tests Pt has undergone therapy at this clinic previously, notes that she went from relying on her 4WW to walking without any assistance, however also notes that that was many years and about nine surgeries ago, so I might not make that good of improvement this time . Treatment Goals Patient/Caregiver Goals Decrease falls risk, decrease fear of falling, improve leg strength PT-OP-C Subjective Start: 05/26/22 16:48 Freq: Status: Active Protocol: Document 09/07/22 14:34 DCW (Rec: 09/07/22 15:22 DCW [id number]) OP-PT Subjective Patient Comments Patient Comments Pt feels much better overall, notes her breathing has been much better. PT-OP-D Balance Start: 05/26/22 16:48 Freq: Status: Active Protocol: Document 09/07/22 14:34 DCW (Rec: 09/07/22 15:02 [facility] [id number]) OP-PT Balance Assessment Sitting Balance Static Sitting Balance Ability Good Dynamic Sitting Balance Ability Good Standing Balance Static Standing Balance Ability Fair Dynamic Standing Balance Ability Fair Device Used 4WW Balance Tests Dominguez Balance Test Dominguez Balance Test Score 44/56 Dominguez Impairment Rating 20 to 39% Impaired (Score 34- 44) Dominguez Balance Assessment Evaluation Sitting to Standing Ability Independent w/out Hands Unsupported Stance Safely- 2 minutes Sitting Unsupported, Feet on Floor Safely- 2 minutes Standing to Sitting Ability Safely, Minimal Hand Use Transfer Ability Safely, Minimal Hand Use Unsupported Stance- Eyes Closed Supervision, 10 seconds Unsupported Stance- Eyes Open Supervision to maintain Reaching Forward Standing Safely, 5 inches Pick- Up Object From Floor Supervision Look Behind Shoulder - Standing Shifts Weight Well Turning 360 Degrees Turns slowly, but safely Unsupported Stance, Alternating Feet on (I)- 8 Steps in > 20 secs Stair Unsupported Tandem Stance Small Step- 30 seconds Unilateral Leg Stance Lifts Leg/Unable to Hold Total Score Dominguez Total Score (out of 56 points) 44 Dominguez Impairment Rating 20 to 39% Impaired (Score 34- 44) Delgado Fall Scale Copyright Permission PT-OP-E Functional Tests Start: 05/26/22 16:48 Freq: Status: Active Protocol: Document 09/07/22 14:34 DCW (Rec: 09/07/22 15:02 [facility] [id number]) Functional Tests Timed Up and Go (TUG) Score 13.8 /s AD Comments Three-trial average (15.59, 13 .3, 12.52) TUG Impairment Rating 40 to <60% Impaired (Score 14- 15) PT-OP-M Strength Start: 05/26/22 16:48 Freq: Status: Active Protocol: Document 09/07/22 14:34 DCW (Rec: 09/07/22 15:02 [facility] [id number]) Hip Strength Hip Manual Muscle Testing Right Flexion (L2) 4- Good- Abduction 4- Good- Adduction 4 Good Left Flexion (L2) 4 Good Abduction 4 Good Adduction 4 Good Knee Strength Knee Manual Muscle Testing Right Flexion (S2) 4- Good- Extension (L3) 4+ Good+ Comments Pt c/o right knee pain during MMT Left Flexion (S2) 4+ Good+ Extension (L3) 4+ Good+ Ankle/Foot Strength Ankle and Foot Manual Muscle Testing Right Dorsiflexion (L4) 4 Good Plantarflexion (S1) 4- Good- Left Dorsiflexion (L4) 4 Good Plantarflexion (S1) 4- Good- PT-OP-Q Treatments Start: 05/26/22 16:48 Freq: Status: Active Protocol: Document 09/07/22 14:34 DCW (Rec: 09/07/22 15:22 DCW [id number]) Therapeutic Exercises Sitting Exercises Shoulder ER Sitting Exercise Name Shoulder ER Side bilateral Resistance Lv 2 Shoulder Flexion Sitting Exercise Name AROM Shoulder flexion /c PVC Side bilateral PT-OP-T Assessment and Plan Start: 05/26/22 16:48 Freq: Status: Active Protocol: Document 09/07/22 14:34 DCW (Rec: 09/07/22 15:22 DCW [id number]) Physical Therapy Assessment Impairments Impairments Activity Tolerance,Balance, Functional Activities, Functional Mobility,Gait, Posture,ROM,Soft Tissue Mobility,Strength Goals Three Impairment Right LE MMT scores of 3+/5 and 4-/5 in multiple planes Jail Goal (LTG) Pt to increase R LE MMT to at least 4/5 in all planes to demonstrate improved LE strength to help decrease pt's fear of falling LTG Duration 11/05/22 - Improving Two Impairment Pt presents with an increased falls risk, per Dominguez (38/56) and TUG (20.01) Short Term Goal (STG) Pt to demonstrate decreased falls risk by improving score on the TUG by at least six seconds to 14 GOAL MET NEW GOAL: TUG <11 STG Duration 10/07/22 Business Unit Controller Goal (LTG) Pt to improve Dominguez score by at least 7 points to 45/56 in order to demonstrate decreased falls risk and improved safety in ambulation LTG Duration 11/05/22 Improving One Impairment Pt does not have an appropriate home exercise program Short Term Goal (STG) Pt to be independent and compliant with an appropriate HEP STG Duration 10/08/22 Assessment Summary Assessment Pt much less restricted with breathing today, able to fully participate in all her reassessment without rest breaks due to SOB. Pt showing excellent improvement overall, improved TUG by more than 6 seconds, Dominguez score also improved by 6 points. Pt will likely continue to benefit from skilled therapy focusing on improving balance and LE strength in order to decreased falls risk, as well as shoulder ROM and posture to decrease kyphosis, which appears to be starting to increase forward positioning and change center of gravity. Physical Therapy Plan Frequency and Duration Frequency of Treatment 2x/Week Plan of Care Start Date 09/07/22 Plan of Care End Date 11/05/22 Therapeutic Interventions Therapeutic Interventions Aquatic Therapy,Balance Training,Gait Training,Home Exercise Program,Joint Mobilizations,Manual Therapy, Neuromuscular Re-education, Patient/Caregiver Education, Self-Care/Home Management,Soft Tissue Mobilization, Therapeutic Activities, Therapeutic Exercises Modalities Cold Pack/Ice Massage,Electric Stimulation,Hot Packs, Ultrasound Next Visit Focus/Plan Next Note Type Treatment Note Next Visit Plan Activity tolerance, balance training, strengthening
--- NOTE | 2022-09-07 15:23 | PT.OPPOC ---
Physical, Occupational & Speech Therapy At [facility] Current Diagnoses Other abnormalities of gait and mobility (09/07/22) Repeated falls (09/07/22) Weakness (09/07/22) Visit Care Team Role Provider Type HAMZAH Navas Attending Provider Advanced Media Relations Associate Family Provider Primary Care Provider Referring Provider Specialty: Family Practice Address: [address] [place] [address], [facility] Email: [email or web address] Plan Of Care PT-OP-T Assessment and Plan Start: 05/26/22 16:48 Freq: Status: Active Protocol: Document 09/07/22 14:34 DCW (Rec: 09/07/22 15:22 DCW [id number]) Physical Therapy Assessment Impairments Impairments Activity Tolerance,Balance, Functional Activities, Functional Mobility,Gait, Posture,ROM,Soft Tissue Mobility,Strength Goals Three Impairment Right LE MMT scores of 3+/5 and 4-/5 in multiple planes Railroad Car Inspector Goal (LTG) Pt to increase R LE MMT to at least 4/5 in all planes to demonstrate improved LE strength to help decrease pt's fear of falling LTG Duration 11/05/22 - Improving Two Impairment Pt presents with an increased falls risk, per Dominguez (38/56) and TUG (20.01) Short Term Goal (STG) Pt to demonstrate decreased falls risk by improving score on the TUG by at least six seconds to 14 GOAL MET NEW GOAL: TUG <11 STG Duration 10/07/22 Nursing Home Goal (LTG) Pt to improve Dominguez score by at least 7 points to 45/56 in order to demonstrate decreased falls risk and improved safety in ambulation LTG Duration 11/05/22 Improving One Impairment Pt does not have an appropriate home exercise program Short Term Goal (STG) Pt to be independent and compliant with an appropriate HEP STG Duration 10/08/22 Assessment Summary Assessment Pt much less restricted with breathing today, able to fully participate in all her reassessment without rest breaks due to SOB. Pt showing excellent improvement overall, improved TUG by more than 6 seconds, Dominguez score also improved by 6 points. Pt will likely continue to benefit from skilled therapy focusing on improving balance and LE strength in order to decreased falls risk, as well as shoulder ROM and posture to decrease kyphosis, which appears to be starting to increase forward positioning and change center of gravity. Physical Therapy Plan Frequency and Duration Frequency of Treatment 2x/Week Plan of Care Start Date 09/07/22 Plan of Care End Date 11/05/22 Therapeutic Interventions Therapeutic Interventions Aquatic Therapy,Balance Training,Gait Training,Home Exercise Program,Joint Mobilizations,Manual Therapy, Neuromuscular Re-education, Patient/Caregiver Education, Self-Care/Home Management,Soft Tissue Mobilization, Therapeutic Activities, Therapeutic Exercises Modalities Cold Pack/Ice Massage,Electric Stimulation,Hot Packs, Ultrasound Next Visit Focus/Plan Next Note Type Treatment Note Next Visit Plan Activity tolerance, balance training, strengthening Plan of Care Dates Plan of Care Start Date 09/07/22 Plan of Care End Date 11/05/22 Electronically Signed by: Santi No, PT 09/07/22 2113 If you are in agreement with this Plan of Care, please return a signed and dated copy. I have reviewed this Plan of Care and certify that the skilled therapy services above are required to meet the patient?s needs. Physician Signature Date Printed Name and Credentials Clinical Instructor Signature Printed Name and Credentials
--- NOTE | 2022-09-09 15:16 | PT.OTN ---
Current Diagnoses Other abnormalities of gait and mobility (09/09/22) Repeated falls (09/09/22) Weakness (09/09/22) Physical Therapy Treatment Note PT-OP-A Visit Information Start: 05/26/22 16:48 Freq: Status: Active Protocol: Document 09/09/22 14:30 DCW (Rec: 09/09/22 15:16 DCW [id number]) Out-Patient Physical Therapy Visit Information Visit Information Visit Type Treatment Note Visit Start Time 14:30 Visit Stop Time 15:15 Total Visit Minutes 45 Visit Number 11 Number of ACCOUNT CONTACT ASSOCIATE Visits 0 Evaluation Information Evaluation Date 05/26/22 PT-OP-B Current Condition Start: 05/26/22 16:48 Freq: Status: Active Protocol: Document 05/26/22 15:15 DCW (Rec: 05/26/22 17:37 DCW [id number]) Current Condition History of Current Condition Onset Date Multi-year history Current Complaints Fear of falling, decreased balance, weakness, fall history History of Current Condition Pt is a 77 year old female presenting with a long- standing history of weakness, with declining balance and noticeable increased fear of falling. Pt has a very complicated medical history which includes 18 back surgeries, history of falls, a -fib, HTN, CVA, COPD, L VERONICA, and R TKA, among many other different diagnoses. Pt reports her most recent fall occurred three weeks ago, but there have been many. Pt ambulates with a 4WW at all times. Additionally, pt's COPD greatly limits her activity tolerance and ability to participate in most activity. Prior Treatments and Tests Pt has undergone therapy at this clinic previously, notes that she went from relying on her 4WW to walking without any assistance, however also notes that that was many years and about nine surgeries ago, so I might not make that good of improvement this time . Treatment Goals Patient/Caregiver Goals Decrease falls risk, decrease fear of falling, improve leg strength PT-OP-C Subjective Start: 05/26/22 16:48 Freq: Status: Active Protocol: Document 09/09/22 14:30 DCW (Rec: 09/09/22 15:16 DCW [id number]) OP-PT Subjective Patient Comments Patient Comments Pt reports she had pulmonary rehab this morning, but has recovered well, and is ready to get to work. PT-OP-D Balance Start: 05/26/22 16:48 Freq: Status: Active Protocol: Document 09/07/22 14:34 DCW (Rec: 09/07/22 15:02 DC [id number]) OP-PT Balance Assessment Sitting Balance Static Sitting Balance Ability Good Dynamic Sitting Balance Ability Good Standing Balance Static Standing Balance Ability Fair Dynamic Standing Balance Ability Fair Device Used 4WW Balance Tests Dominguez Balance Test Dominguez Balance Test Score 44/56 Dominguez Impairment Rating 20 to 39% Impaired (Score 34- 44) Dominguez Balance Assessment Evaluation Sitting to Standing Ability Independent w/out Hands Unsupported Stance Safely- 2 minutes Sitting Unsupported, Feet on Floor Safely- 2 minutes Standing to Sitting Ability Safely, Minimal Hand Use Transfer Ability Safely, Minimal Hand Use Unsupported Stance- Eyes Closed Supervision, 10 seconds Unsupported Stance- Eyes Open Supervision to maintain Reaching Forward Standing Safely, 5 inches Pick- Up Object From Floor Supervision Look Behind Shoulder - Standing Shifts Weight Well Turning 360 Degrees Turns slowly, but safely Unsupported Stance, Alternating Feet on (I)- 8 Steps in > 20 secs Stair Unsupported Tandem Stance Small Step- 30 seconds Unilateral Leg Stance Lifts Leg/Unable to Hold Total Score Dominguez Total Score (out of 56 points) 44 Dominguez Impairment Rating 20 to 39% Impaired (Score 34- 44) Delgado Fall Scale Copyright Permission PT-OP-E Functional Tests Start: 05/26/22 16:48 Freq: Status: Active Protocol: Document 09/07/22 14:34 DCW (Rec: 09/07/22 15:02 [facility] [id number]) Functional Tests Timed Up and Go (TUG) Score 13.8 /s AD Comments Three-trial average (15.59, 13 .3, 12.52) TUG Impairment Rating 40 to <60% Impaired (Score 14- 15) PT-OP-M Strength Start: 05/26/22 16:48 Freq: Status: Active Protocol: Document 09/07/22 14:34 DCW (Rec: 09/07/22 15:02 [facility] [id number]) Hip Strength Hip Manual Muscle Testing Right Flexion (L2) 4- Good- Abduction 4- Good- Adduction 4 Good Left Flexion (L2) 4 Good Abduction 4 Good Adduction 4 Good Knee Strength Knee Manual Muscle Testing Right Flexion (S2) 4- Good- Extension (L3) 4+ Good+ Comments Pt c/o right knee pain during MMT Left Flexion (S2) 4+ Good+ Extension (L3) 4+ Good+ Ankle/Foot Strength Ankle and Foot Manual Muscle Testing Right Dorsiflexion (L4) 4 Good Plantarflexion (S1) 4- Good- Left Dorsiflexion (L4) 4 Good Plantarflexion (S1) 4- Good- PT-OP-Q Treatments Start: 05/26/22 16:48 Freq: Status: Active Protocol: Document 09/09/22 14:30 DCW (Rec: 09/09/22 15:16 DCW [id number]) Cardio Equipment Recumbent Elliptical (Biodex) Duration (Minutes) 3 Resistance 3 Seat Position 7 Gym Equipment Shuttle Recovery Unilateral Squats Resistance 62# Shuttle Recovery Platform Stable Reps/Time x20 each Bilateral Squats Resistance 100# Shuttle Recovery Platform Stable Reps/Time 2x20 Therapeutic Exercises Sitting Exercises LAQ Sitting Exercise Name LAQ Side bilateral Resistance 5# Hip Abduction Sitting Exercise Name Hip Abduction Side bilateral Resistance Lv 3 Hamstring curls Sitting Exercise Name HS Curls Side bilateral Resistance Lv 3 Standing Exercises Abduction Standing Exercise Name Hip Abduction Side bilateral Resistance Red Extension Standing Exercise Name Hip Extension Side bilateral Resistance Red Neuro Re-Education Treatment Balance Activities Foam Stance Details NBOS Surface Blue Equipment // bars Tandem Details Tandem Stance Equipment // bars PT-OP-T Assessment and Plan Start: 05/26/22 16:48 Freq: Status: Active Protocol: Document 09/09/22 14:30 DCW (Rec: 09/09/22 15:16 DCW [id number]) Physical Therapy Assessment Impairments Impairments Activity Tolerance,Balance, Functional Activities, Functional Mobility,Gait, Posture,ROM,Soft Tissue Mobility,Strength Goals Three Impairment Right LE MMT scores of 3+/5 and 4-/5 in multiple planes Bass Guitar Teacher Goal (LTG) Pt to increase R LE MMT to at least 4/5 in all planes to demonstrate improved LE strength to help decrease pt's fear of falling LTG Duration 11/05/22 - Improving Two Impairment Pt presents with an increased falls risk, per Dominguez (38/56) and TUG (20.01) Short Term Goal (STG) Pt to demonstrate decreased falls risk by improving score on the TUG by at least six seconds to 14 GOAL MET NEW GOAL: TUG <11 STG Duration 10/07/22 [facility] Goal (LTG) Pt to improve Dominguez score by at least 7 points to 45/56 in order to demonstrate decreased falls risk and improved safety in ambulation LTG Duration 11/05/22 Improving One Impairment Pt does not have an appropriate home exercise program Short Term Goal (STG) Pt to be independent and compliant with an appropriate HEP STG Duration 10/08/22 Assessment Summary Assessment Pt tolerated treatment very well today, able to maintain O2 sat >95% with all activities. Doing better with both balance challenges and LE strengthening. Physical Therapy Plan Frequency and Duration Frequency of Treatment 2x/Week Plan of Care Start Date 09/07/22 Plan of Care End Date 11/05/22 Therapeutic Interventions Therapeutic Interventions Aquatic Therapy,Balance Training,Gait Training,Home Exercise Program,Joint Mobilizations,Manual Therapy, Neuromuscular Re-education, Patient/Caregiver Education, Self-Care/Home Management,Soft Tissue Mobilization, Therapeutic Activities, Therapeutic Exercises Modalities Cold Pack/Ice Massage,Electric Stimulation,Hot Packs, Ultrasound Next Visit Focus/Plan Next Note Type Treatment Note Next Visit Plan Activity tolerance, balance training, strengthening
--- NOTE | 2022-09-13 15:12 | PT.OTN ---
Current Diagnoses Other abnormalities of gait and mobility (09/13/22) Repeated falls (09/13/22) Weakness (09/13/22) Physical Therapy Treatment Note PT-OP-A Visit Information Start: 05/26/22 16:48 Freq: Status: Active Protocol: Document 09/13/22 14:30 DCW (Rec: 09/13/22 15:11 DCW [id number]) Out-Patient Physical Therapy Visit Information Visit Information Visit Type Treatment Note Visit Start Time 14:30 Visit Stop Time 15:15 Total Visit Minutes 45 Visit Number 12 Number of RADIOLOGIC TECHNOLOGIST MAMMOGRAM Visits 0 Evaluation Information Evaluation Date 05/26/22 PT-OP-B Current Condition Start: 05/26/22 16:48 Freq: Status: Active Protocol: Document 05/26/22 15:15 DCW (Rec: 05/26/22 17:37 DCW [id number]) Current Condition History of Current Condition Onset Date Multi-year history Current Complaints Fear of falling, decreased balance, weakness, fall history History of Current Condition Pt is a 77 year old female presenting with a long- standing history of weakness, with declining balance and noticeable increased fear of falling. Pt has a very complicated medical history which includes 18 back surgeries, history of falls, a -fib, HTN, CVA, COPD, L VERONICA, and R TKA, among many other different diagnoses. Pt reports her most recent fall occurred three weeks ago, but there have been many. Pt ambulates with a 4WW at all times. Additionally, pt's COPD greatly limits her activity tolerance and ability to participate in most activity. Prior Treatments and Tests Pt has undergone therapy at this clinic previously, notes that she went from relying on her 4WW to walking without any assistance, however also notes that that was many years and about nine surgeries ago, so I might not make that good of improvement this time . Treatment Goals Patient/Caregiver Goals Decrease falls risk, decrease fear of falling, improve leg strength PT-OP-C Subjective Start: 05/26/22 16:48 Freq: Status: Active Protocol: Document 09/13/22 14:30 DCW (Rec: 09/13/22 15:11 DCW [id number]) OP-PT Subjective Patient Comments Patient Comments All weekend I havw bwwn practicing that standing on one leg...it's not really improving. PT-OP-D Balance Start: 05/26/22 16:48 Freq: Status: Active Protocol: Document 09/07/22 14:34 DCW (Rec: 09/07/22 15:02 [facility] [id number]) OP-PT Balance Assessment Sitting Balance Static Sitting Balance Ability Good Dynamic Sitting Balance Ability Good Standing Balance Static Standing Balance Ability Fair Dynamic Standing Balance Ability Fair Device Used 4WW Balance Tests Dominguez Balance Test Dominguez Balance Test Score 44/56 Dominguez Impairment Rating 20 to 39% Impaired (Score 34- 44) Dominguez Balance Assessment Evaluation Sitting to Standing Ability Independent w/out Hands Unsupported Stance Safely- 2 minutes Sitting Unsupported, Feet on Floor Safely- 2 minutes Standing to Sitting Ability Safely, Minimal Hand Use Transfer Ability Safely, Minimal Hand Use Unsupported Stance- Eyes Closed Supervision, 10 seconds Unsupported Stance- Eyes Open Supervision to maintain Reaching Forward Standing Safely, 5 inches Pick- Up Object From Floor Supervision Look Behind Shoulder - Standing Shifts Weight Well Turning 360 Degrees Turns slowly, but safely Unsupported Stance, Alternating Feet on (I)- 8 Steps in > 20 secs Stair Unsupported Tandem Stance Small Step- 30 seconds Unilateral Leg Stance Lifts Leg/Unable to Hold Total Score Dominguez Total Score (out of 56 points) 44 Dominguez Impairment Rating 20 to 39% Impaired (Score 34- 44) Delgado Fall Scale Copyright Permission PT-OP-E Functional Tests Start: 05/26/22 16:48 Freq: Status: Active Protocol: Document 09/07/22 14:34 DCW (Rec: 09/07/22 15:02 [facility] [id number]) Functional Tests Timed Up and Go (TUG) Score 13.8 /s AD Comments Three-trial average (15.59, 13 .3, 12.52) TUG Impairment Rating 40 to <60% Impaired (Score 14- 15) PT-OP-M Strength Start: 05/26/22 16:48 Freq: Status: Active Protocol: Document 09/07/22 14:34 DCW (Rec: 09/07/22 15:02 [facility] [id number]) Hip Strength Hip Manual Muscle Testing Right Flexion (L2) 4- Good- Abduction 4- Good- Adduction 4 Good Left Flexion (L2) 4 Good Abduction 4 Good Adduction 4 Good Knee Strength Knee Manual Muscle Testing Right Flexion (S2) 4- Good- Extension (L3) 4+ Good+ Comments Pt c/o right knee pain during MMT Left Flexion (S2) 4+ Good+ Extension (L3) 4+ Good+ Ankle/Foot Strength Ankle and Foot Manual Muscle Testing Right Dorsiflexion (L4) 4 Good Plantarflexion (S1) 4- Good- Left Dorsiflexion (L4) 4 Good Plantarflexion (S1) 4- Good- PT-OP-Q Treatments Start: 05/26/22 16:48 Freq: Status: Active Protocol: Document 09/13/22 14:30 DCW (Rec: 09/13/22 15:11 DCW [id number]) Cardio Equipment Recumbent Elliptical (Biodex) Duration (Minutes) 6 Resistance 3 Seat Position 8 Gym Equipment Shuttle Recovery Unilateral Squats Resistance 62# Shuttle Recovery Platform Stable Reps/Time x20 each Bilateral Squats Resistance 100# Shuttle Recovery Platform Stable Reps/Time 2x20 Therapeutic Exercises Sitting Exercises LAQ Sitting Exercise Name LAQ Side bilateral Resistance 5# Hip Abduction Sitting Exercise Name Hip Abduction Side bilateral Resistance Lv 3 Hamstring curls Sitting Exercise Name HS Curls Side bilateral Resistance Lv 3 Standing Exercises Abduction Standing Exercise Name Hip Abduction Side bilateral Resistance Red Extension Standing Exercise Name Hip Extension Side bilateral Resistance Red Neuro Re-Education Treatment Balance Activities SLS Details SLS Equipment // bars Tandem Details Tandem Stance Equipment // bars PT-OP-T Assessment and Plan Start: 05/26/22 16:48 Freq: Status: Active Protocol: Document 09/13/22 14:30 DCW (Rec: 09/13/22 15:11 DCW [id number]) Physical Therapy Assessment Impairments Impairments Activity Tolerance,Balance, Functional Activities, Functional Mobility,Gait, Posture,ROM,Soft Tissue Mobility,Strength Goals Three Impairment Right LE MMT scores of 3+/5 and 4-/5 in multiple planes Budget Report Clerk Goal (LTG) Pt to increase R LE MMT to at least 4/5 in all planes to demonstrate improved LE strength to help decrease pt's fear of falling LTG Duration 11/05/22 - Improving Two Impairment Pt presents with an increased falls risk, per Dominguez (38/56) and TUG (20.01) Short Term Goal (STG) Pt to demonstrate decreased falls risk by improving score on the TUG by at least six seconds to 14 GOAL MET NEW GOAL: TUG <11 STG Duration 10/07/22 Fdc Goal (LTG) Pt to improve Dominguez score by at least 7 points to 45/56 in order to demonstrate decreased falls risk and improved safety in ambulation LTG Duration 11/05/22 Improving One Impairment Pt does not have an appropriate home exercise program Short Term Goal (STG) Pt to be independent and compliant with an appropriate HEP STG Duration 10/08/22 Assessment Summary Assessment O2 sat dropped to 94% today following leg press, but otherwise stayed at 95% or higher. Pt tolerating activity better with fewer rest breaks , no noticeable SOB. Working more consistently with her HEP . Physical Therapy Plan Frequency and Duration Frequency of Treatment 2x/Week Plan of Care Start Date 09/07/22 Plan of Care End Date 11/05/22 Therapeutic Interventions Therapeutic Interventions Aquatic Therapy,Balance Training,Gait Training,Home Exercise Program,Joint Mobilizations,Manual Therapy, Neuromuscular Re-education, Patient/Caregiver Education, Self-Care/Home Management,Soft Tissue Mobilization, Therapeutic Activities, Therapeutic Exercises Modalities Cold Pack/Ice Massage,Electric Stimulation,Hot Packs, Ultrasound Next Visit Focus/Plan Next Note Type Treatment Note Next Visit Plan Activity tolerance, balance training, strengthening
--- NOTE | 2022-10-29 08:56 | PT.OPDS ---
Current Diagnoses Other abnormalities of gait and mobility (09/13/22) Repeated falls (09/13/22) Weakness (09/13/22) Visit Care Team Role Provider Type HAMZAH Navas Attending Provider Advanced Auto Body Estimator Family Provider Primary Care Provider Referring Provider Specialty: Family Practice Address: [address] [place] [address], [id number] Email: [email or web address] Visit Number Visit Number 12 Discharge Summary PT-OP-B Current Condition Start: 05/26/22 16:48 Freq: Status: Active Protocol: Document 05/26/22 15:15 DCW (Rec: 05/26/22 17:37 DCW [id number]) Current Condition History of Current Condition Onset Date Multi-year history Current Complaints Fear of falling, decreased balance, weakness, fall history History of Current Condition Pt is a 77 year old female presenting with a long- standing history of weakness, with declining balance and noticeable increased fear of falling. Pt has a very complicated medical history which includes 18 back surgeries, history of falls, a -fib, HTN, CVA, COPD, L VERONICA, and R TKA, among many other different diagnoses. Pt reports her most recent fall occurred three weeks ago, but there have been many. Pt ambulates with a 4WW at all times. Additionally, pt's COPD greatly limits her activity tolerance and ability to participate in most activity. Prior Treatments and Tests Pt has undergone therapy at this clinic previously, notes that she went from relying on her 4WW to walking without any assistance, however also notes that that was many years and about nine surgeries ago, so I might not make that good of improvement this time . Treatment Goals Patient/Caregiver Goals Decrease falls risk, decrease fear of falling, improve leg strength PT-OP-C Subjective Start: 05/26/22 16:48 Freq: Status: Active Protocol: Document 09/13/22 14:30 DCW (Rec: 09/13/22 15:11 DCW [id number]) OP-PT Subjective Patient Comments Patient Comments All weekend I havw bwwn practicing that standing on one leg...it's not really improving. PT-OP-D Balance Start: 05/26/22 16:48 Freq: Status: Active Protocol: Document 09/07/22 14:34 DCW (Rec: 09/07/22 15:02 [facility] [id number]) OP-PT Balance Assessment Sitting Balance Static Sitting Balance Ability Good Dynamic Sitting Balance Ability Good Standing Balance Static Standing Balance Ability Fair Dynamic Standing Balance Ability Fair Device Used 4WW Balance Tests Dominguez Balance Test Dominguez Balance Test Score 44/56 Dominguez Impairment Rating 20 to 39% Impaired (Score 34- 44) Dominguez Balance Assessment Evaluation Sitting to Standing Ability Independent w/out Hands Unsupported Stance Safely- 2 minutes Sitting Unsupported, Feet on Floor Safely- 2 minutes Standing to Sitting Ability Safely, Minimal Hand Use Transfer Ability Safely, Minimal Hand Use Unsupported Stance- Eyes Closed Supervision, 10 seconds Unsupported Stance- Eyes Open Supervision to maintain Reaching Forward Standing Safely, 5 inches Pick- Up Object From Floor Supervision Look Behind Shoulder - Standing Shifts Weight Well Turning 360 Degrees Turns slowly, but safely Unsupported Stance, Alternating Feet on (I)- 8 Steps in > 20 secs Stair Unsupported Tandem Stance Small Step- 30 seconds Unilateral Leg Stance Lifts Leg/Unable to Hold Total Score Dominguez Total Score (out of 56 points) 44 Dominguez Impairment Rating 20 to 39% Impaired (Score 34- 44) Delgado Fall Scale Copyright Permission PT-OP-E Functional Tests Start: 05/26/22 16:48 Freq: Status: Active Protocol: Document 09/07/22 14:34 DCW (Rec: 09/07/22 15:02 [facility] [id number]) Functional Tests Timed Up and Go (TUG) Score 13.8 /s AD Comments Three-trial average (15.59, 13 .3, 12.52) TUG Impairment Rating 40 to <60% Impaired (Score 14- 15) PT-OP-M Strength Start: 05/26/22 16:48 Freq: Status: Active Protocol: Document 09/07/22 14:34 DCW (Rec: 09/07/22 15:02 [facility] [id number]) Hip Strength Hip Manual Muscle Testing Right Flexion (L2) 4- Good- Abduction 4- Good- Adduction 4 Good Left Flexion (L2) 4 Good Abduction 4 Good Adduction 4 Good Knee Strength Knee Manual Muscle Testing Right Flexion (S2) 4- Good- Extension (L3) 4+ Good+ Comments Pt c/o right knee pain during MMT Left Flexion (S2) 4+ Good+ Extension (L3) 4+ Good+ Ankle/Foot Strength Ankle and Foot Manual Muscle Testing Right Dorsiflexion (L4) 4 Good Plantarflexion (S1) 4- Good- Left Dorsiflexion (L4) 4 Good Plantarflexion (S1) 4- Good- PT-OP-T Assessment and Plan Start: 05/26/22 16:48 Freq: Status: Active Protocol: Document 10/29/22 08:54 DCW (Rec: 10/29/22 08:56 DC [id number]) Physical Therapy Assessment Assessment Summary Assessment Pt has been phoned and informed that she has been noncompliant with attendance policy, will be discharged from skilled therapy at this time. Pt understands, and will need a new referral in order to return to PT in the future. Physical Therapy Plan Discharge Physical Therapy Discharge Reasons No Longer Attending PT
== END 2022-11-01 11:55 | disposition home or self-care (01) ==
LOC: PHYS 14:30
PROVIDERS: Family Provider Nurse Practitioner; PCP Nurse Practitioner; Referring Provider Nurse Practitioner; Visit Provider Nurse Practitioner
DX: R29.6 Repeated falls (principal); R26.89 Other abnormalities of gait and mobility; R53.1 Weakness
CPT/HCPCS: 97110; 97112; 97163

== ENCOUNTER → 2022-10-12 11:02 | Outpatient (CLI) | payer MEDICARE, MEDICAID, SELFPAY ==
--- NOTE | 2022-10-12 | DI.NM.S_ITS ---
PROCEDURE: NM ARTIS PERF SPECT R&S PHARM Rest and pharmacological stress myocardial perfusion SPECT with gated imaging and ejection fraction RADIOPHARMACEUTICAL: 23.0 mCi Tc-99m tetrafosmin IV at rest and 25.1 mCi Tc-99m tetrafosmin IV at peak effect of pharmacological stress. [id number]-[id number] was performed. INDICATIONS: Essential hypertension TECHNIQUE: Radiopharmaceutical was injected at peak stress test, and also at rest. SPECT images were obtained. SPECT myocardial perfusion images were displayed in short axis, horizontal long axis, and vertical long axis views. Gated images were reviewed using Clinical Data software. COMPARISON: None. CARDIAC STRESS: A pharmacologic stress test was performed under the supervision of an attending staff, using an infusion of regadenoson 0.4 mg IV. Hemodynamic data: There is normal blood pressure and heart rate response to pharmacologic stress. Symptoms: The patient denied anginal chest pain. EKG: No diagnostic changes of ischemia; no ectopy. FINDINGS: Raw data: There is good myocardial uptake of radiotracer. No significant motion artifacts. Qqmz-se-ctypv ratio is 0.95 (normal is less than 0.38 for tetrafosmin tracer). Left ventricle function: Gated images demonstrate normal left ventricular wall thickening. No segmental wall motion abnormalities. No transient ischemic dilation; TID is 0.97 (normal less than 1.3). Left ventricle resting end diastolic volume is 107 mL. Left ventricle stress ejection fraction is 73%; normal range is above 45%. Myocardial perfusion: There is a small size, mild intensity apical wall defect seen only at rest. No fixed or reversible perfusion defects. IMPRESSION: Low risk study. No evidence of pharmacologic induced ischemia or scar. Normal left ventricular function. Dictated by: Sil Tillman D.O. on 10/13/2022 at 16:26 Approved by: Sil Tillman D.O. on 10/13/2022 at 16:40
== END ==
PROVIDERS: Family Provider Nurse Practitioner; PCP Nurse Practitioner; Referring Provider Nurse Practitioner Family; Visit Provider Nurse Practitioner Family
DX: R07.89 Other chest pain (principal); I10 Essential (primary) hypertension; R06.02 Shortness of breath; R42 Dizziness and giddiness
CPT/HCPCS: 78452; 93017; A9502; J2785

== ENCOUNTER → 2022-10-13 12:50 | Outpatient (CLI) | payer MEDICARE, MEDICAID, SELFPAY ==
--- NOTE | 2022-10-13 14:06 | DI.ECHO.S_ITS ---
Interpretation Summary The left ventricle is normal in size. The ejection fraction is estimated to be 55-60%. There has been no significant change in LVEF since the previous exam. The right ventricle is normal in size and function. No significant valvular pathology seen. The ascending aorta is mildly enlarged. 3.8 cm in diameter. Previously 3.9 cm. Procedure: A two-dimensional transthoracic echocardiogram with color flow and Doppler was performed. The study quality was technically adequate. Comparison is made with the echocardiogram of 06/10/2020. The patient was in sinus rhythm with heart rates between 54-63 bpm during the exam. The patient had frequent PACs during the exam. Left Ventricle: The left ventricle is normal in size. Proximal septal thickening is noted. There is no echo evidence for significant left ventricular outflow tract obstruction. There is no thrombus. The ejection fraction is estimated to be 55-60%. There has been no significant change since the previous exam. There are no focal wall motion abnormalities. Diastolic parameters suggest a relaxation abnormality of the left ventricle, consistent with probable normal filling pressures. Right Ventricle: The right ventricle is normal in size and function. Atria: The left atrium is mildly dilated. There has been no significant change since the previous study. Right atrial size is normal. There is no Doppler evidence for an interatrial shunt. Mitral Valve: There is mild to moderate mitral annular calcification. There is mild mitral regurgitation. Aortic Valve: The aortic valve is trileaflet. The aortic valve is mildly calcified. There is no hemodynamically significant valvular aortic stenosis. No aortic regurgitation is present. Tricuspid Valve: The tricuspid valve is normal in structure and function. There is trace tricuspid regurgitation. The right ventricular systolic pressure is estimated to be at least 27 mmHg based on an estimated right atrial pressure of 3 mm Hg. Pulmonic Valve: The pulmonic valve leaflets are thin and pliable; valve motion is normal. There is trace pulmonic regurgitation. Great Vessels: The aortic root is normal size. The ascending aorta is mildly enlarged. There has been no significant change since the previous study. The IVC is of normal diameter and collapses greater than 50% with a sniff. This suggests a low right atrial pressure of 3 mm Hg. Pericardium/ Pleura There is no pericardial effusion. There is no pleural effusion. MMode/2D Measurements & Calculations LVIDd: 4.7 cm LVOT diam: 2.0 cm LVIDs: 3.5 cm Ao root diam: 3.7 cm FS: 25.3 % asc Aorta Diam: 3.8 cm IVSd: 1.1 cm Ao Arch Diam (Prox Trans): 2.6 cm LVPWd: 0.98 cm LV rojas. diameter/BSA (cm/m^2): 2.5 LV sys. diameter/BSA (cm/m^2): 1.8 LA A2 area: 22.5 cm2 RA long axis: 5.5 cm LA A4 area: 23.5 cm2 RA area: 18.4 cm2 LA length (vol): 6.0 cm RA vol: 51.7 ml LA vol: 74.5 ml RA : 27.2 ml/m2 LA vol index: 39.1 ml/m2 IVC diam: 1.6 cm RVD1 (basal): 3.5 cm RVD2 (mid): 3.0 cm TAPSE: 2.1 cm Doppler Measurements & Calculations Ao V2 max: 177.6 cm/sec LVOT Max Camacho: 80.6 cm/sec Ao V2 mean: 122.5 cm/sec LV V1 max P.6 mmHg Ao max P.6 mmHg LV V1 VTI: 23.3 cm Ao mean P.8 mmHg ROSSI(I,D): 1.7 cm2 Ao V2 VTI: 44.3 cm ROSSI(V,D): 1.5 cm2 sev ratio: 0.53 ROSSI indexed to BSA (cm^2/m^2): 0.89 MV E max camacho: 74.0 cm/sec TR max camacho: 244.2 cm/sec MV A max camacho: 101.0 cm/sec TR max P.9 mmHg MV E/A: 0.73 PA V2 max: 93.0 cm/sec Med Peak E' Camacho: 5.2 cm/sec PA V2 mean: 67.1 cm/sec E/E' med: 14.1 PA mean P.0 mmHg Lat Peak E' Camacho: 6.8 cm/sec PA pr(Accel): 34.5 mmHg E/E' lat: 10.9 E/e' average: 12.5 MV dec time: 0.29 sec SV(LVOT): 75.1 ml Reading Physician:03:43 PM
== END ==
PROVIDERS: Family Provider Nurse Practitioner; PCP Nurse Practitioner; Referring Provider Nurse Practitioner Family; Visit Provider Nurse Practitioner Family
DX: I34.81 Nonrheumatic mitral (valve) annulus calcification (principal); I77.89 Other specified disorders of arteries and arterioles; R07.89 Other chest pain; I34.0 Nonrheumatic mitral (valve) insufficiency; I10 Essential (primary) hypertension; R06.02 Shortness of breath; R42 Dizziness and giddiness
CPT/HCPCS: 93306

== ENCOUNTER → 2022-10-25 10:50 | Outpatient (CLI) | payer MEDICARE, MEDICAID, SELFPAY ==
--- NOTE | 2022-10-25 10:52 | DI.RAD.S_ITS ---
PROCEDURE: XR HIP W PEL IF DONE LT MIN 4V INDICATIONS: hip pain TECHNIQUE: AP pelvis and lateral view of the hips acquired. COMPARISON: [facility], [facility], XR HIP W PEL IF DONE LT 2V, 12/11/2019, 16:20. FINDINGS: Bones: Patient is status post bilateral hip arthroplasty, with hardware components in expected positions. The hip joint appears congruent. The visualized bony structures appear intact. Soft tissues: No suspicious soft tissue densities. IMPRESSION: Total hip arthroplasties without complication. Dictated by: Eduar Villarreal M.D. on 10/25/2022 at 12:04 Approved by: Eduar Villarreal M.D. on 10/25/2022 at 12:05
== END ==
PROVIDERS: Family Provider Nurse Practitioner; PCP Nurse Practitioner; Referring Provider Nurse Practitioner; Visit Provider Nurse Practitioner
DX: M25.559 Pain in unspecified hip (principal); Z96.643 Presence of artificial hip joint, bilateral
CPT/HCPCS: 73522

== ENCOUNTER → 2022-11-07 13:57 | Outpatient (CLI) | payer MEDICARE, MEDICAID, SELFPAY ==
--- NOTE | 2022-11-07 14:15 | DI.MRI.S_ITS ---
PROCEDURE: MR LUMBAR SPINE WO/W CON INDICATIONS: worsening pain in back and right leg TECHNIQUE: Noncontrast sagittal T1 spin echo and T2 fast spin echo, sagittal STIR, axial T1 and T2 fast spin echo through the lumbar spine. In cases with scoliosis, additional coronal T2 fast spin echo may be performed. After the administration of contrast, sagittal and axial T1 spin echo with fat saturation through the lumbar spine. COMPARISON: [facility], , L-SPINE WITH AND WITHOUT CONTR, 10/31/2009, 12:48. FINDINGS: Image quality: Excellent. Alignment and curvature: There is normal bony alignment other than mild anterior spondylolisthesis L3-4. Marrow: Transitional anatomy noted. There is partial sacralization of the L5 vertebral body. Extensive surgical intervention includes decompressive laminectomies at L2, L3, L4 and L5 with interbody fusion at T12-L1, L2-3, L4-5 and L5-S1. Posterior abdiel and screw instrumentation extends from L1 through L4. Spinal cord: Conus medullaris terminates at the L1 level. Visualized spinal cord demonstrates normal signal, without suspicious enhancement. 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 Common bile duct is partially imaged appears dilated, possibly measuring up to 1.6 cm T12-L1: Disc space narrowing posterior disc bulge and hypertrophic facet joints results in moderate central stenosis. Severe bilateral foraminal stenosis L1-L2: Disc space narrowing and circumferential disc bulge present. No central stenosis. Moderate bilateral foraminal stenosis L2-L3: Disc space narrowing and probable interbody fusion. Decompressive laminectomy present. No central stenosis. Moderate bilateral foraminal stenosis L3-L4: Disc space narrowing and circumferential disc bulge present. Hypertrophic ankylosed facet joints result in moderate central stenosis. Mild left and moderate right foraminal stenosis L4-L5: Discectomy and fusion. Central canal is widely patent. Mild bilateral foraminal stenosis L5-S1: Discectomy and fusion. Central canal is widely patent. Mild bilateral foraminal stenosis IMPRESSION: 1. Extensive surgical intervention includes decompressive laminectomies, interbody and posterolateral fusion, posterior abdiel and screw instrumentation. 2. Stable moderate central stenosis L3-4. Degenerative changes results in varying degrees of foraminal stenosis as above. 3. 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 on 11/08/2022 at 10:48
== END ==
PROVIDERS: Family Provider Nurse Practitioner; PCP Nurse Practitioner; Referring Provider Nurse Practitioner; Visit Provider Nurse Practitioner
DX: M47.816 Spondylosis without myelopathy or radiculopathy, lumbar region (principal); M48.061 Spinal stenosis, lumbar region without neurogenic claudication; M48.07 Spinal stenosis, lumbosacral region; M54.31 Sciatica, right side; M54.32 Sciatica, left side; M54.50 Low back pain, unspecified; G89.29 Other chronic pain; R29.6 Repeated falls; Z98.1 Arthrodesis status
CPT/HCPCS: 72158; A9579

== ENCOUNTER 2022-12-01 12:30 | Outpatient (RCR) | payer MEDICARE, MEDICAID, SELFPAY | END 2022-12-01 14:30 | LOC: PUL 12:30 | PROVIDERS: Family Provider Nurse Practitioner; PCP Nurse Practitioner; Referring Provider Family Medicine; Visit Provider Family Medicine | DX: J44.9 Chronic obstructive pulmonary disease, unspecified (principal); R06.09 Other forms of dyspnea | CPT/HCPCS: 94626; G0237; G0238; G0239 ==

== ENCOUNTER → 2022-12-13 16:05 | Outpatient (CLI) | payer MEDICARE, MEDICAID, SELFPAY ==
[2022-12-13 16:43] LABS: Hematocrit 33.7 % (36-46); Hemoglobin 11.3 g/dL (12.0-16.0)
[2022-12-13 17:35] LABS: HEMOLYSIS < 15 (0-50); Potassium 4.8 mmol/L (3.4-5.1)
[2022-12-13 17:36] LABS: BUN Creatinine Ratio 17.9 (6-22); Blood Urea Nitrogen 30 mg/dL (7-17); Calcium 9.5 mg/dL (8.4-10.2); Carbon Dioxide 25 mmol/L (22-32); Chloride 108 mmol/L (98-107); Estimated Glomerular Filt Rate 31 mL/min (>60); Glucose 92 mg/dL (80-110); Sodium 141 mmol/L (137-145)
[2022-12-13 18:43] LABS: Creatinine Urine Random 109.8 mg/dL
[2022-12-13 18:49] LABS: Microalbumi Creatinin Ratio Ur 65.5 ug/mg CR (<30); Microalbumin Urine Random 7.2 mg/dL (0-1.6)
== END ==
PROVIDERS: Family Provider Nurse Practitioner; PCP Nurse Practitioner; Referring Provider Internal Medicine Nephrology; Visit Provider Internal Medicine Nephrology
DX: N18.32 Chronic kidney disease, stage 3b (principal); I10 Essential (primary) hypertension
CPT/HCPCS: 36415; 80048; 82043; 82570; 85014; 85018

== ENCOUNTER → 2023-02-05 18:32 | Outpatient (CLI) | payer MEDICARE, MEDICAID, SELFPAY | PROVIDERS: Family Provider Nurse Practitioner; PCP Nurse Practitioner; Visit Provider Physician Assistant | DX: R30.0 Dysuria (principal) | CPT/HCPCS: 87086 ==

== ENCOUNTER → 2023-03-18 16:06 | Outpatient (CLI) | payer MEDICARE, MEDICAID, SELFPAY | PROVIDERS: Family Provider Nurse Practitioner; PCP Nurse Practitioner; Visit Provider Physician Assistant | DX: N39.0 Urinary tract infection, site not specified (principal) | CPT/HCPCS: 87086 ==

== ENCOUNTER → 2023-03-18 16:48 | Outpatient (CLI) | payer MEDICARE, MEDICAID, SELFPAY ==
[2023-03-18 17:15] LABS: Hematocrit 34.4 % (36-46); Hemoglobin 11.4 g/dL (12.0-16.0); Mean Corpuscular HGB Conc 33.1 % (30-36); Mean Corpuscular Hemoglobin 28.5 PG (26-34); Mean Corpuscular Volume 86.2 fL (80-100); Platelet Count 234 X10^3/uL (150-400); Red Blood Cell Count 3.99 X10^6/uL (4.0-5.2)
[2023-03-18 17:17] LABS: Alanine Aminotransferase 19 IU/L (<35); Albumin 4.4 g/dL (3.5-5.0); Albumin Globulin Ratio 1.2 (1.0-2.8); Alkaline Phosphatase 88 U/L (38-126); Aspartate Aminotransferase 23 IU/L (14-36); BUN Creatinine Ratio 22.8 (6-22); Bilirubin Total 0.6 mg/dL (0.2-1.3); Blood Urea Nitrogen 34 mg/dL (7-17); Calcium 9.4 mg/dL (8.4-10.2); Carbon Dioxide 21 mmol/L (22-32); Chloride 105 mmol/L (98-107); Estimated Glomerular Filt Rate 36 mL/min (>60); Globulin 3.7 g/dL (1.7-4.1); Glucose 81 mg/dL (80-110); HEMOLYSIS 30 (0-50); Sodium 136 mmol/L (137-145); Total Protein 8.1 g/dL (6.3-8.2)
[2023-03-18 17:28] LABS: Potassium 5.8 mmol/L (3.4-5.1)
== END ==
PROVIDERS: Family Provider Nurse Practitioner; PCP Nurse Practitioner; Referring Provider Physician Assistant; Visit Provider Physician Assistant
DX: N39.0 Urinary tract infection, site not specified (principal)
CPT/HCPCS: 36415; 80053; 85027

== ENCOUNTER 2023-03-18 20:30 | Emergency (ER) | payer MEDICARE, MEDICAID, SELFPAY ==
[2023-03-18 20:38] VITALS: BP 139/81; PULSE 85; RESP 18; TEMP 37.2; O2SAT 94; BMI 33.7
[2023-03-18 21:16] LABS: Add Manual Diff / Slide Review NO; Basophils Absolute Auto 100 /uL (0-100); Basophils Percent Auto 0.8 % (0-2); Eosinophils Absolute Auto 300 /uL (0-450); Eosinophils Percent Auto 3.9 % (2-4); Hematocrit 34.2 % (36-46); Hemoglobin 11.3 g/dL (12.0-16.0); Lymphocytes Absolute Auto 1400 /uL (1100-4500); Lymphocytes Percent Auto 17.3 % (25-40); Mean Corpuscular Hemoglobin 28.4 PG (26-34); Mean Corpuscular Volume 85.9 fL (80-100); Monocytes Absolute Auto 600 /uL (0-900); Monocytes Percent Auto 7.3 % (3-14); Neutrophils Absolute Auto 5700 /uL (1500-7000); Neutrophils Percent Auto 70.7 % (50-75); Platelet Count 228 X10^3/uL (150-400); Red Blood Cell Count 3.98 X10^6/uL (4.0-5.2); Red Cell Distribution Width 14.1 % (11.6-14.8); White Blood Cell Count 8.1 X10^3/uL (4.5-11.0)
[2023-03-18 21:19] LABS: Alanine Aminotransferase 19 IU/L (<35); Albumin 4.1 g/dL (3.5-5.0); Albumin Globulin Ratio 1.1 (1.0-2.8); Alkaline Phosphatase 88 U/L (38-126); Aspartate Aminotransferase 21 IU/L (14-36); BUN Creatinine Ratio 20.7 (6-22); Bilirubin Total 0.5 mg/dL (0.2-1.3); Blood Urea Nitrogen 34 mg/dL (7-17); Calcium 9.3 mg/dL (8.4-10.2); Carbon Dioxide 25 mmol/L (22-32); Chloride 107 mmol/L (98-107); Estimated Glomerular Filt Rate 32 mL/min (>60); Globulin 3.8 g/dL (1.7-4.1); Glucose 129 mg/dL (80-110); HEMOLYSIS < 15 (0-50); Sodium 137 mmol/L (137-145); Total Protein 7.9 g/dL (6.3-8.2)
[2023-03-18 21:28] LABS: Potassium 5.4 mmol/L (3.4-5.1)
--- NOTE | 2023-03-18 22:41 | ED.RECABL ---
HPI - Recheck/Abnormal Lab/Rx General Chief Complaint: Recheck/Abnormal Lab/Rx Stated Complaint: Kidney problems, High K Time Seen by Provider: 03/18/23 20:44 Source: patient Mode of arrival: Wheelchair History of Present Illness HPI narrative: Patient is a 70-year-old female. She stated that she went to the walk-in clinic today secondary to symptoms that are consistent with prior urinary tract infections. She was diagnosed with a urinary tract infection. Was given a prescription for antibiotics but has not picked them up. She also has chronic kidney disease. She received a call from the walk-in clinic stating that her potassium was high and that if she did not come in to get it addressed that she ?may not make it through the night? she denies any specific symptoms except for her urinary tract infection symptoms. Related Data Home Medications Medication Instructions Recorded Confirmed furosemide 40 mg tablet 40 mg PO QAM PRN edema 05/25/21 02/28/23 tiotropium 2.5 mcg-olodaterol 2.5 2 puff inhalation BID 05/25/21 02/28/23 mcg/actuation mist for inhalation dextroamphetamine-amphetamine 20 20 mg PO BID 06/15/22 02/28/23 mg tablet (Adderall) Vitamin D 5000iu See Rx Instructions .Route .COMPLEX 07/22/22 02/28/23 spironolactone 25 mg tablet 25 mg PO DAILY 10/06/22 02/28/23 acetaminophen 500 mg tablet 1,000 mg PO TID PRN 11/01/22 02/28/23 (Tylenol Extra Strength) Previous Rx's Medication Instructions Recorded Disabled Parking Permit #1 ea 06/07/19 carvedilol 25 mg tablet (Coreg) See Rx Instructions PO BID #30 tabs 03/16/22 apixaban 5 mg tablet (Eliquis) 5 mg PO BID #60 tabs 07/22/22 starch (thickening) (Instant Food See Rx Instructions PO .COMPLEX 07/22/22 Thickener oral powder) #1,020 grams zaleplon 10 mg capsule 10 mg PO BEDTIME PRN sleep #90 caps 07/22/22 nitroglycerin 0.4 mg sublingual See Rx Instructions .Route 10/11/22 tablet .COMPLEX ##25 duloxetine 60 mg capsule,delayed 120 mg PO DAILY #180 caps 11/11/22 release naloxone 0.4 mg/mL injection 0.4 mg IM Q2M PRN opioid reversal 11/22/22 syringe #3 mL methocarbamol 500 mg tablet See Rx Instructions .Route 12/02/22 .COMPLEX #120 tabs buprenorphine 12 mg-naloxone 3 mg 2 film buccal Q24H #60 ea 12/30/22 sublingual film (Suboxone) buprenorphine 8 mg-naloxone 2 mg 1 film buccal Q24H #30 ea 02/28/23 sublingual film (Suboxone) cephalexin 500 mg capsule 500 mg PO Q8H 7 days #21 caps 03/18/23 Allergies Allergy/AdvReac Type Severity Reaction Status Date / Time ipratropium [From Atrovent] Allergy Intermediate voice spasm Verified 03/18/23 20:38 ciprofloxacin AdvReac Intermediate FLUSHING, Verified 03/18/23 20:38 SWEATS, SOB citalopram [CITALOPRAM] AdvReac Intermediate Hallucinati Verified 03/18/23 20:38 ons cyclobenzaprine AdvReac Intermediate FLUSHING, Verified 03/18/23 20:38 SWEATS, SOB pregabalin AdvReac Intermediate FLUSHING/SW Verified 03/18/23 20:38 EATS/SOB Review of Systems Cardiovascular Comments: Denies chest pain Respiratory Comments: Denies shortness of breath Gastrointestinal Comments: Denies abdominal Patient History Medical History Abnormal Pap smear of cervix (~1956) ADD (attention deficit disorder) ADD (attention deficit disorder) Anemia Ankle pain Anxiety Arachnoiditis Atrial fibrillation Bilirubin in urine Cataracts, bilateral Cervical spine disease Chronic back pain Class 1 obesity due to excess calories with body mass index (BMI) of 34.0 to 34.9 in adult COPD (chronic obstructive pulmonary disease) COVID Cystic fibrosis (~1956) Degenerative joint disease (DJD) of lumbar spine Depression Depression Dysphagia Dysphagia Encounter for Medicare annual wellness exam Fibromyalgia Fibromyalgia Foot pain Foraminal stenosis of lumbar region Frequent falls GERD (gastroesophageal reflux disease) GI bleeding Heavy menstrual period Hypertension Kidney cysts Kidney stones Loss of voice Osteoporosis Peripheral neuropathy Peripheral vascular disease of extremity with claudication Pneumonia Post traumatic stress disorder (PTSD) Raynaud's disease without gangrene Restless leg syndrome Rheumatoid arthritis Right leg injury Sacralization of lumbar vertebra Sciatica Scoliosis Screening for malignant neoplasm of colon Severe 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, without psychotic features (07/05/16) Skin cancer (~1996) SOB (shortness of breath) on exertion Stroke UTI (urinary tract infection) Venous stasis Vertigo (~1968) Surgical History History of back surgery History of hip replacement History of knee replacement (11/29/16) History of neck surgery S/P total abdominal hysterectomy and bilateral salpingo-oophorectomy Status post appendectomy Status post bunionectomy (08/11/15) Status post cholecystectomy Status post tonsillectomy and adenoidectomy Status post tubal ligation Social History marital status: Smoking Status: Former smoker alcohol intake: never substance use type: does not use Smoking Status: Former smoker alcohol intake frequency: 0-2 drinks per day Substance Use Type: does not use, former substance user and prescription drug Exam Initial Vital Signs Initial Vital Signs: Vital Signs Temperature 98.9 F 03/18/23 20:38 Pulse Rate 85 03/18/23 20:38 Respiratory Rate 18 03/18/23 20:38 Blood Pressure 139/81 03/18/23 20:38 Pulse Oximetry 94 03/18/23 20:38 Oxygen Delivery Method Room Air 03/18/23 20:38 Resp Effort & Inspection: normal respiratory effort Auscultation: clear to auscultation bilaterally Cardio Rate: regular rate Rhythm: regular rhythm GI Inspection: normal to inspection Palpation: soft and No tender Skin General: no rashes or lesions noted Neuro General: patient alert, patient awake and moves all extremities Extrem General: normal to inspection and capillary refill normal Course Orders Ordered: ED Orders 03/18/23 20:57 Complete Blood Count AUTO DIFF Stat Comprehensive Metabolic Panel Stat 03/18/23 21:05 EKG-12 Lead Stat Discontinued Medications Trimethoprim/Sulfamethoxazole (Trimeth/Sulfa 160/800 (Ds) Tablet) 1 tab PO NOW ONE Stop: 03/18/23 22:44 Last Admin: 03/18/23 23:07 Dose: 1 tab Documented By: ST Vital Signs Vital signs: Vital Signs - 8 hr 03/18/23 23:16 Pulse Rate 68 Respiratory Rate 16 Blood Pressure 141/74 H Pulse Oximetry 96 Oxygen Delivery Method Room Air MDM - Recheck/Abnormal Lab/Rx Lab Data 03/18/23 20:57 03/18/23 20:57 Labs: Lab Results 03/18/23 03/18/23 Range/Units 20:57 20:57 WBC 8.1 (4.5-11.0) X10^3/uL RBC 3.98 L (4.0-5.2) X10^6/uL Hgb 11.3 L (12.0-16.0) g/dL Hct 34.2 L (36-46) % MCV 85.9 (80-100) fL MCH 28.4 (26-34) PG MCHC 33.0 (30-36) % RDW 14.1 (11.6-14.8) % Plt Count 228 (150-400) X10^3/uL Neut % (Auto) 70.7 (50-75) % Lymph % (Auto) 17.3 L (25-40) % Taliaferro % (Auto) 7.3 (3-14) % Eos % (Auto) 3.9 (2-4) % Baso % (Auto) 0.8 (0-2) % Neut # (Auto) 5700 (2637-2670) /uL Lymph # (Auto) 1400 (2398-7308) /uL Taliaferro # (Auto) 600 (0-900) /uL Eos # (Auto) 300 (0-450) /uL Baso # (Auto) 100 (0-100) /uL Sodium 137 (137-145) mmol/L Potassium 5.4 H (3.4-5.1) mmol/L Chloride 107 (98-107) mmol/L Carbon Dioxide 25 (22-32) mmol/L BUN 34 H (7-17) mg/dL Creatinine 1.64 H (0.52-1.04) mg/dL Estimated GFR 32 L (>60) mL/min BUN/Creatinine Ratio 20.7 (6-22) Glucose 129 H (80-110) mg/dL Calcium 9.3 (8.4-10.2) mg/dL Total Bilirubin 0.5 (0.2-1.3) mg/dL AST 21 (14-36) IU/L ALT 19 (<35) IU/L Alkaline Phosphatase 88 (38-126) U/L Total Protein 7.9 (6.3-8.2) g/dL Albumin 4.1 (3.5-5.0) g/dL Globulin 3.8 (1.7-4.1) g/dL Albumin/Globulin Ratio 1.1 (1.0-2.8) ECG Data Attestation: I personally reviewed and interpreted this ECG as follows: Interpretation: Sinus rhythm Ventricular rate is 75 Normal axis Normal QRS No ST T wave changes No iron is consistent with hyperkalemia MDM Narrative Medical decision making narrative: Her potassium today is 5.4. Is actually lower than what it was earlier in the day. She has no EKG changes consistent with hyperkalemia. Her kidney function is at baseline. No specific treatment needed for that level of potassium here in the ER however I did inform her that she should have her rechecked at the beginning of next week and she can contact her primary doctor for this. She was given a dose of antibiotics here in the ER because she has diagnosed urinary tract infection but was not able to filler picker her antibiotics before the pharmacy closed. She was given return precautions. She expressed understanding and agreement. Discharge Plan Departure Patient Disposition: Home Clinical Impression: Hyperkalemia Instructions: DI for Hyperkalemia Activity Restrictions/Additional Instructions: Recommend that you continue to take all of your medications as directed. I do recommend that on Tuesday morning you contact your primary doctor's office and your charger tester office for a follow-up most likely for a repeat blood draw. Return to the emergency department for new or worsening symptoms. Prescriptions: No Action cephalexin 500 mg capsule 500 mg PO Q8H 7 Days Qty: 21 0RF (DME) Disabled Parking Permit Qty: 1 0RF Rx Instructions: I find this person to be disabled nitroglycerin 0.4 mg tablet, sublingual See Rx Instructions .ROUTE .COMPLEX Qty: 25 1RF Dose Instruction: Dissolve 1 tablet under tongue every 5-15 minutes up to 3 times for chest pain. If persists, call 911. Rx Instructions: Dissolve 1 tablet under tongue every 5-15 minutes up to 3 times for chest pain. If persists, call 911. methocarbamol 500 mg tablet See Rx Instructions .ROUTE .COMPLEX Qty: 120 3RF Dose Instruction: take 2 tablets by mouth twice a day NEEDED FOR PAIN Rx Instructions: take 2 tablets by mouth twice a day NEEDED FOR PAIN spironolactone 25 mg tablet 25 mg PO DAILY duloxetine 60 mg capsule,delayed release(DR/EC) 120 mg PO DAILY Qty: 180 3RF Rx Instructions: Take 2 tabs daily for depression naloxone 0.4 mg/mL syringe 0.4 mg IM Q2M PRN (Reason: opioid reversal) Qty: 3 3RF Rx Instructions: NTExceed 10 mg total dose/episode buprenorphine-naloxone [Suboxone] 8-2 mg film 1 film buccal Q24H Qty: 30 3RF Rx Instructions: Take 1 film daily in addition to (2) of the 12/4mg films (total 32mg buprenorphine) buprenorphine-naloxone [Suboxone] 12-3 mg film 2 film buccal Q24H Qty: 60 2RF Rx Instructions: place 2 strip/tab under (each) side of tongue daily for pain relief tiotropium-olodaterol 2.5-2.5 mcg/actuation mist 2 puff inhalation BID carvedilol [Coreg] 25 mg tablet See Rx Instructions PO BID Qty: 30 11RF Rx Instructions: take 0.5 tablet (12.5 mg total) PO BID PO twice a day; must administer with a meal/food dextroamphetamine-amphetamine [Adderall] 20 mg tablet 20 mg PO BID Rx Instructions: administer doses at least 4-6 hours apart Eliquis 5 mg tablet 5 mg PO BID Qty: 60 11RF Rx Instructions: Take 1 tab twice per day for anticoagulation Instant Food Thickener Powder See Rx Instructions PO .COMPLEX Qty: 1020 3RF Rx Instructions: Add to fluids to achieve nectar consistency for swallowing assistance/dysphagia orally; zaleplon 10 mg capsule 10 mg PO BEDTIME PRN (Reason: sleep) Qty: 90 2RF Rx Instructions: must avoid high-fat meal/food immediately before taking dose Vitamin D 5000iu See Rx Instructions .ROUTE .COMPLEX Rx Instructions: Take 5000iu while suffering from COVID-19; acetaminophen [Tylenol Extra Strength] 500 mg tablet 1,000 mg PO TID PRN Rx Instructions: Not to exceed 3000mg/24 hours furosemide 40 mg tablet 40 mg PO QAM PRN (Reason: edema) Referrals: Yvonne Calabrese ARNP [Primary Care Provider] - Stand Alone Forms: Patient Portal/API
[2023-03-18] MEDS: TRIMETH/SULFA 160/800 (DS) TABLET 1 TAB PO (23:07)
[2023-03-18 23:16] VITALS: BP 141/74; PULSE 68; RESP 16; O2SAT 96
== END 2023-03-18 23:15 | disposition home or self-care (01) ==
PROVIDERS: Emergency Provider Emergency Medicine; Family Provider Nurse Practitioner; PCP Nurse Practitioner
DX: E87.5 Hyperkalemia (principal); R07.9 Chest pain, unspecified; N39.0 Urinary tract infection, site not specified
CPT/HCPCS: 36415; 80053; 85025; 85027; 87086; 93005; 99283; 99284

== ENCOUNTER → 2023-06-03 12:35 | Outpatient (CLI) | payer MEDICARE, MEDICAID, SELFPAY ==
[2023-06-03 14:02] LABS: Appearance Urine UA SL CLOUDY; Bilirubin Urine UA NEGATIVE (NEGATIVE); Color Urine UA YELLOW; Glucose Urine UA NEGATIVE (Negative); Ketones Urine UA NEGATIVE (NEGATIVE); Leukocyte Esterase Urine UA NEGATIVE (NEGATIVE); Nitrite Urine UA POSITIVE (Negative); Occult Blood Urine UA NEGATIVE (Negative); Protein Urine UA TRACE (Negative); Specific Gravity Urine UA 1.015 (1.000-1.035); Urobilinogen Urine UA 0.2 E.U./dL (0.2)
[2023-06-03 14:05] LABS: pH Urine UA 6.5 (4.5-8.0)
[2023-06-03 14:21] LABS: Bacteria Urine Many (>30); Culture Indicated Urine Specimen Cultured; RBC Urine 0-1/HPF (0-5/HPF); Squamous Epithelial Cell Urine 1-5 /HPF (0-5/HPF); WBC Urine 5-10/HPF (0-5/HPF)
[2023-06-03 15:01] LABS: Add Manual Diff / Slide Review NO; Basophils Absolute Auto 100 /uL (0-100); Basophils Percent Auto 1.2 % (0-2); Eosinophils Absolute Auto 300 /uL (0-450); Eosinophils Percent Auto 5.4 % (2-4); Hematocrit 34.3 % (36-46); Hemoglobin 11.5 g/dL (12.0-16.0); Lymphocytes Absolute Auto 1700 /uL (1100-4500); Lymphocytes Percent Auto 27.1 % (25-40); Mean Corpuscular HGB Conc 33.4 % (30-36); Mean Corpuscular Hemoglobin 28.9 PG (26-34); Mean Corpuscular Volume 86.6 fL (80-100); Monocytes Absolute Auto 600 /uL (0-900); Neutrophils Absolute Auto 3700 /uL (1500-7000); Neutrophils Percent Auto 57.3 % (50-75); Platelet Count 224 X10^3/uL (150-400); Red Blood Cell Count 3.97 X10^6/uL (4.0-5.2); Red Cell Distribution Width 14.2 % (11.6-14.8); White Blood Cell Count 6.4 X10^3/uL (4.5-11.0)
[2023-06-03 15:25] LABS: HEMOLYSIS < 15 (0-50); Iron 61 ug/dL (37-170)
[2023-06-03 15:29] LABS: Alanine Aminotransferase 18 IU/L (<35); Albumin 4.2 g/dL (3.5-5.0); Albumin Globulin Ratio 1.2 (1.0-2.8); Alkaline Phosphatase 90 U/L (38-126); Aspartate Aminotransferase 23 IU/L (14-36); BUN Creatinine Ratio 15.6 (6-22); Bilirubin Total 0.5 mg/dL (0.2-1.3); Blood Urea Nitrogen 22 mg/dL (7-17); Calcium 9.6 mg/dL (8.4-10.2); Carbon Dioxide 28 mmol/L (22-32); Chloride 106 mmol/L (98-107); Estimated Glomerular Filt Rate 38 mL/min (>60); Globulin 3.4 g/dL (1.7-4.1); Glucose 88 mg/dL (80-110); HEMOLYSIS < 15 (0-50); Sodium 141 mmol/L (137-145); Total Protein 7.6 g/dL (6.3-8.2)
[2023-06-03 15:31] LABS: Potassium 5.5 mmol/L (3.4-5.1)
[2023-06-03 15:36] LABS: Percent Iron Saturation 17 % (15-50); Total Iron Binding Capacity 368 ug/dL (265-497); Transferrin 273 mg/dL (206-381)
[2023-06-03 18:25] LABS: Vitamin B12 545 pg/mL (239-931)
== END ==
PROVIDERS: Family Provider Nurse Practitioner; PCP Nurse Practitioner; Referring Provider Urology; Visit Provider Urology
DX: N39.41 Urge incontinence (principal); E87.5 Hyperkalemia; F32.A Depression, unspecified; I10 Essential (primary) hypertension; D64.9 Anemia, unspecified; N39.0 Urinary tract infection, site not specified
CPT/HCPCS: 36415; 80053; 81001; 82607; 83540; 83550; 85025; 87077; 87086; 87186

== ENCOUNTER → 2023-06-20 15:14 | Outpatient (CLI) | payer MEDICARE, MEDICAID, SELFPAY ==
[2023-06-20 16:26] LABS: Blood Urea Nitrogen 30 mg/dL (7-17); Calcium 9.8 mg/dL (8.4-10.2); Carbon Dioxide 25 mmol/L (22-32); Chloride 105 mmol/L (98-107); Estimated Glomerular Filt Rate 35 mL/min (>60); Glucose 104 mg/dL (80-110); HEMOLYSIS < 15 (0-50); Potassium 4.4 mmol/L (3.4-5.1); Sodium 140 mmol/L (137-145)
== END ==
PROVIDERS: Family Provider Nurse Practitioner; PCP Nurse Practitioner; Referring Provider Internal Medicine Nephrology; Visit Provider Internal Medicine Nephrology
DX: E87.5 Hyperkalemia (principal)
CPT/HCPCS: 36415; 80048

== ENCOUNTER → 2023-07-26 15:57 | Outpatient (CLI) | payer MEDICARE, MEDICAID, SELFPAY ==
[2023-07-26 16:30] LABS: Add Manual Diff / Slide Review NO; Basophils Absolute Auto 0 /uL (0-100); Basophils Percent Auto 0.2 % (0-2); Eosinophils Absolute Auto 300 /uL (0-450); Eosinophils Percent Auto 3.7 % (2-4); Hematocrit 32.6 % (36-46); Lymphocytes Absolute Auto 1500 /uL (1100-4500); Lymphocytes Percent Auto 20.8 % (25-40); Mean Corpuscular HGB Conc 33.7 % (30-36); Mean Corpuscular Hemoglobin 28.6 PG (26-34); Mean Corpuscular Volume 84.9 fL (80-100); Monocytes Absolute Auto 600 /uL (0-900); Monocytes Percent Auto 8.4 % (3-14); Neutrophils Absolute Auto 5000 /uL (1500-7000); Neutrophils Percent Auto 66.9 % (50-75); Platelet Count 245 X10^3/uL (150-400); Red Blood Cell Count 3.84 X10^6/uL (4.0-5.2); Red Cell Distribution Width 14.5 % (11.6-14.8); White Blood Cell Count 7.4 X10^3/uL (4.5-11.0)
[2023-07-26 17:10] LABS: Alanine Aminotransferase 19 IU/L (<35); Albumin 4.2 g/dL (3.5-5.0); Albumin Globulin Ratio 1.2 (1.0-2.8); Alkaline Phosphatase 87 U/L (38-126); Aspartate Aminotransferase 22 IU/L (14-36); BUN Creatinine Ratio 16.3 (6-22); Bilirubin Total 0.4 mg/dL (0.2-1.3); Blood Urea Nitrogen 23 mg/dL (7-17); Calcium 9.5 mg/dL (8.4-10.2); Carbon Dioxide 25 mmol/L (22-32); Chloride 106 mmol/L (98-107); Cholesterol 168 mg/dL (140-199); Estimated Glomerular Filt Rate 38 mL/min (>60); Globulin 3.6 g/dL (1.7-4.1); Glucose 78 mg/dL (80-110); HDL Cholesterol 38 mg/dL (40-60); HEMOLYSIS < 15 (0-50); LDL Cholesterol Calculated 103 mg/dL (<100); Potassium 4.3 mmol/L (3.4-5.1); Sodium 139 mmol/L (137-145); Total Protein 7.8 g/dL (6.3-8.2); Triglycerides 135 mg/dL (35-150)
[2023-07-26 17:40] LABS: Thyroid Stimulating Hormone 1.04 uIU/mL (0.47-4.68)
[2023-07-26 18:08] LABS: Creatinine Urine Random 86.3 mg/dL
[2023-07-26 18:42] LABS: Microalbumi Creatinin Ratio Ur 230.5 ug/mg CR (<30); Microalbumin Urine Random 19.9 mg/dL (0-1.6)
== END ==
PROVIDERS: Family Provider Nurse Practitioner; PCP Nurse Practitioner; Referring Provider Nurse Practitioner; Visit Provider Nurse Practitioner
DX: N18.9 Chronic kidney disease, unspecified (principal); F33.1 Major depressive disorder, recurrent, moderate; F32.A Depression, unspecified; J44.9 Chronic obstructive pulmonary disease, unspecified; I48.91 Unspecified atrial fibrillation; I10 Essential (primary) hypertension; G89.4 Chronic pain syndrome; Z79.01 Long term (current) use of anticoagulants; Z79.899 Other long term (current) drug therapy; N18.30 Chronic kidney disease, stage 3 unspecified
CPT/HCPCS: 36415; 80053; 80061; 82043; 82570; 84443; 85025

== ENCOUNTER → 2023-09-26 09:49 | Outpatient (CLI) | payer MEDICARE, MEDICAID, SELFPAY ==
--- NOTE | 2023-09-26 09:51 | DI.RAD.S_ITS ---
PROCEDURE: [place] BARIUM SWALLOW W SPEECH INDICATIONS: Dysphonia COMPARISON: TECHNIQUE: Examination was conducted in conjunction with speech pathology per standard protocol. In the lateral projection, filming was performed of the patient swallowing. AP projection filming may also be performed with patient swallowing. COMPARISON: [facility], , [place] BARIUM SWALLOW W SPEECH, 05/04/2022, 13:35. FINDINGS: Function: The oral preparatory phase appears normal, with proper containment. The esophageal phase is markedly abnormal with delayed passage, tertiary contractions, irregular contour and spasm of the esophagus. No laryngotracheal penetration or aspiration. Morphology: No cricopharyngeal bar is identified. No cervical esophageal webs. No Zenker's diverticulum. IMPRESSION: 1. See speech pathologist report for detailed findings. 2. No aspiration or penetration is seen but abnormal motility and contour of the esophagus is noted. Endoscopy may provide additional diagnostic benefit. Dictated by: Colton Montana M.D. on 09/27/2023 at 12:05 Approved by: Colton Montana M.D. on 09/27/2023 at 12:14
--- NOTE | 2023-09-26 15:01 | ST.SWALLOW ---
Visit Care Team Role Provider Type HAMZAH Navas Family Provider Advanced Tunnel Kiln Operator Primary Care Provider Specialty: Family Practice Address: [address] [place] [address], [id number] Email: [email or web address] Mason Daniels MD Attending Provider Physician Referring Provider Specialty: Ear, Nose, Throat Address: [address] [place] [address], [id number] Email: [email or web address] ST Modified Barium Swallow Study ELECTROTYPER HELPER Modified Barium Swallow Study Start: 09/26/23 09:39 Freq: Status: Active Protocol: Document 09/26/23 12:29 LNK (Rec: 09/26/23 12:32 LNK [id number]) Modified Barium Swallow Study Total Time Visit Start Time 10:00 Visit Stop Time 10:30 Total Visit Minutes 30 Referral Referring Physician STORM Blancas Reason for Referral dysphagia; hx GERD Setting Setting Outpatient Care Patient Information Identification Type Name,Date of Patient History Pt was seen for a Modified Barium Swallow Study at the referral of STORM Thorpe. According to the pt notes received and pt interview, pt has been reporting difficulty swallowing with a sensation of globus located near her sternal notch/chest area. Pt has a complicated PMH that included muscle tension dysphonia, hoarseness, long history of GERD (currently not medicated), CVA, obesity, PNA and ACDF surgery. Pt reports difficulty with swallowing liquids and liquids especially big bites, meats, pasta, rice, etc. Pt had a previous MBSS on 05/04 with the results indicating oropharyngeal dysphagia characterized by mastication inefficiency and impaired closure of the laryngeal vestibule. Outpatient swallowing therapy was recommended at that time, however there was no pt follow through. Subjective Observations Pt was seated in the fluoroscopy chair with instructions provide. Pt indicated she understood and agreed to proceed. Patient Positioning Position View Lat-A/P Imaging Lateral View Textures Administered Trials Presented Thin Liquid via Cup (IDDSI 0) Barium Tablet No The IDDSI Framework Protocol: IDDSI.1 Oral Impairment Source: The Modified Barium Swallow Impairment Profile (MBSImP??) Lip Closure Escape from interlab.space/lat .junct.;no ext. beyond vermilion border Tongue Control During Bolus Hold Escape to lateral buccal cavity/floor of mouth (FOM) Bolus Preparation/Mastication Disorganized chewing/mashing with solid pieces of bolus unchewed Bolus Transport/Lingual Motion Repetitive/disorganized tongue motion Oral Residue Residue collection on oral structures Location Floor of mouth,Palate,Tongue, Lateral sulci Initiation of Pharyngeal Swallow Bolus head at pyriforms Additional Oral Impairment Observations Pt's dentition included upper denture, which was loose with an edentulous lower arch. Pt does not use lower denture when eating. OME indicated structures and function to be WFL. DKS was noted to be WFL. Speech was intelligible. ORAL PHASE: Mastication was slower than expected to to lack of lower teeth. Bolus control, formation and AP transition was disorganized with solid pieces of bolus unchewed. Pharyngeal Impairment Source: The Modified Barium Swallow Impairment Profile (MBSImP??) Soft Palate Elevation No bolus between soft palate & pharyngeal wall Laryngeal Elevation Part.sup.move.thyroid cart/ part.approx.arytenoids to epiglot.petiole Anterior Hyoid Excursion Partial anterior movement Epiglottic Movement Complete inversion Laryngeal Vestibular Closure Incomplete; narrow column air/ contrast in laryngeal vestibule Pharyngeal Stripping Wave Present - complete Pharyngoesophageal Segment Opening Complete distention & complete duration; no obstruction of flow Tongue Base Retraction Narrow column of contrast/air betwn tongue base & post. pharyngeal wall Pharyngeal Residue Collection of residue within/ on pharyngeal structures Location Diffuse (>3 areas) Additional Pharyngeal Impairment Mild weakness of tongue base Observations retraction observed. Laryngeal elevation was complete; however there was reduced anterior movement of the hyoid. Although the epiglottic inversion was complete, there laryngeal penetration above the vocal folds was observed with liquids x3. PAS2). Pharyngeal pooling was noted throughout the pharynx. No tracheal aspiration was observed. A/P View Textures Administered Trials Presented Thin Liquid via Spoon (IDDSI 0 ) The IDDSI Framework Protocol: IDDSI.1 A/P View Observations Pharyngeal Contraction Complete Esophageal Clearance Upright Position Esophageal retention w/ regtrograde flow below pharyngoesoph segment Vocal Fold Function Good Esophageal Function Slowed Clearing,Poor Motility, Narrowing Additional A-P Observations Esophageal retention was noted throughout esophagus when position was changed to AP view. Retrograde flow observed with esophageal narrowing at mid chest area. Barium tablet was noted to be slow to clear. Clinical Impressions Dysphagia Type Oral,Pharyngeal Findings Oropharyngeal dysphagia with reduced OM strength. Mastication efficiency compromised due to poor dentition. Laryngeal penetration was noted as well as esophageal retention, narrowing and retrograde flow near mid chest. Referral to GI is recommended. Pt noted she has had EGD many years ago. Additionally she has not had GERD treatment for many years (per pt's report.) Rehabilitation Potential Good Patient Appropriate for Therapy Yes Recommendations Diet Comments No diet changes recommended at this time; small bites/sips one at a time Additional Dietary Needs Single Sips,1:1 Supervision Aspiration Precautions Recommended Precautions Alternate Liquids/Solids, Frequent Rest Periods,Small Bites/Sips Treatment Plan Therapy Recommendations Outpatient Speech Therapy,Base of Tongue Exercises Recommended Referrals GI Consult Therapy Strategy Recommendations Small Bites and Sips
--- NOTE | 2023-09-26 15:05 | ST.SWALLOW ---
Visit Care Team Role Provider Type HAMZAH Navas Family Provider Advanced Protohistorian Primary Care Provider Specialty: Family Practice Address: [address] [place] [address], [id number] Email: [email or web address] Mason Daniels MD Attending Provider Physician Referring Provider Specialty: Ear, Nose, Throat Address: [address] [place] [address], [address] Email: [email or web address] Modified Barium Swallow Study STATION REPAIRER Modified Barium Swallow Study Start: 09/26/23 09:39 Freq: Status: Active Protocol: Document 09/26/23 12:29 LNK (Rec: 09/26/23 12:32 LNK [id number]) Modified Barium Swallow Study Total Time Visit Start Time 10:00 Visit Stop Time 10:30 Total Visit Minutes 30 Referral Referring Physician STORM Blancas Reason for Referral dysphagia; hx GERD Setting Setting Outpatient Care Patient Information Identification Type Name,Date of Patient History Pt was seen for a Modified Barium Swallow Study at the referral of STORM Thorpe. According to the pt notes received and pt interview, pt has been reporting difficulty swallowing with a sensation of globus located near her sternal notch/chest area. Pt has a complicated PMH that included muscle tension dysphonia, hoarseness, long history of GERD (currently not medicated), CVA, obesity, PNA and ACDF surgery. Pt reports difficulty with swallowing liquids and liquids especially big bites, meats, pasta, rice, etc. Pt had a previous MBSS on 05/04 with the resutls indicating oropharyngeal dysphagia characterized by mastication inefficiency and impaired closure of the laryngeal vestibule. Outpatient swallowing therapy was recommended at that time, however there was no pt follow through. Subjective Observations Pt was seated in the fluoroscopy chair with instructions provide. Pt indicated she understood and agreed to proceed. Patient Positioning Position View Lat-A/P Imaging Lateral View Textures Administered Trials Presented Thin Liquid via Cup (IDDSI 0) Barium Tablet No The IDDSI Framework Protocol: IDDSI.1 Oral Impairment Source: The Modified Barium Swallow Impairment Profile (MBSImP??) Lip Closure Escape from interlab.space/lat .junct.;no ext. beyond vermilion border Tongue Control During Bolus Hold Escape to lateral buccal cavity/floor of mouth (FOM) Bolus Preparation/Mastication Disorganized chewing/mashing with solid pieces of bolus unchewed Bolus Transport/Lingual Motion Repetitive/disorganized tongue motion Oral Residue Residue collection on oral structures Location Floor of mouth,Palate,Tongue, Lateral sulci Initiation of Pharyngeal Swallow Bolus head at pyriforms Additional Oral Impairment Observations Pt's dentition included upper denture, which was loose with an edentulous lower arch. Pt does not use lower denture when eating. OME indicated structures and function to be WFL. DKS was noted to be WFL. Speech was intelligible. ORAL PHASE: Mastication was slower than expected to to lack of lower teeth. Bolus control, formation and AP transition was disorganized with solid pieces of bolus unchewed. Pharyngeal Impairment Source: The Modified Barium Swallow Impairment Profile (MBSImP??) Soft Palate Elevation No bolus between soft palate & pharyngeal wall Laryngeal Elevation Part.sup.move.thyroid cart/ part.approx.arytenoids to epiglot.petiole Anterior Hyoid Excursion Partial anterior movement Epiglottic Movement Complete inversion Laryngeal Vestibular Closure Incomplete; narrow column air/ contrast in laryngeal vestibule Pharyngeal Stripping Wave Present - complete Pharyngoesophageal Segment Opening Complete distention & complete duration; no obstruction of flow Tongue Base Retraction Narrow column of contrast/air betwn tongue base & post. pharyngeal wall Pharyngeal Residue Collection of residue within/ on pharyngeal structures Location Diffuse (>3 areas) Additional Pharyngeal Impairment Mild weakness of tongue base Observations retraction observed. Laryngeal elevation was complete; however there was reduced anterior movement of the hyoid. Although the epiglottic inversion was complete, there laryngeal penetration above the vocal folds was observed with liquids x3. No visible laryngeal residue was noted. (PAS2). Pharyngeal pooling was noted throughout the pharyngx. No tracheal aspiration was observed. A/P View Textures Administered Trials Presented Thin Liquid via Spoon (IDDSI 0 ) The IDDSI Framework Protocol: IDDSI.1 A/P View Observations Pharyngeal Contraction Complete Esophageal Clearance Upright Position Esophageal retention w/ regtrograde flow below pharyngoesoph segment Vocal Fold Function Good Esophageal Function Slowed Clearing,Poor Motility, Narrowing Additional A-P Observations Esophageal retention was noted throughout esophagus when position was changed to AP view. Retrograde flow observed with esophageal narrowing at mid chest area. Barium tablet was noted to be slow to clear. Clinical Impressions Dysphagia Type Oral,Pharyngeal Findings Oropharyngeal dysphagia with reduced OM strength. Mastication efficiency compromised due to poor dentition. Laryngeal penetration was noted as well as esophageal retention, narrowing and retrograde flow near mid chest. Referral to GI is recommended. Pt noted she has had EGD many years ago. Additionally she has not had GERD tretment for many years (per pt's report.) Rehabilitation Potential Good Patient Appropriate for Therapy Yes Recommendations Diet Comments No diet changes recommended at this time; small bites/sips one at a time Additional Dietary Needs Single Sips,1:1 Supervision Aspiration Precautions Recommended Precautions Alternate Liquids/Solids, Frequent Rest Periods,Small Bites/Sips Treatment Plan Therapy Recommendations Outpatient Speech Therapy,Base of Tongue Exercises Recommended Referrals GI Consult Therapy Strategy Recommendations Small Bites and Sips
== END ==
LOC: RAD 09:49
PROVIDERS: Family Provider Nurse Practitioner; PCP Nurse Practitioner; Referring Provider Otolaryngology; Visit Provider Otolaryngology
DX: R13.10 Dysphagia, unspecified (principal); R49.0 Dysphonia; K21.9 Gastro-esophageal reflux disease without esophagitis
CPT/HCPCS: 74230; 92611

== ENCOUNTER → 2023-10-03 17:49 | Outpatient (CLI) | payer MEDICARE, MEDICAID, SELFPAY ==
[2023-10-03 19:52] LABS: Influenza A - CEPHEID Flu A NEGATIVE (NEGATIVE); Influenza B - CEPHEID Flu B NEGATIVE (NEGATIVE); Respiratory Syncytial Virus Negative (Negative)
[2023-10-03 19:57] LABS: COVID-19 CEPHEID 4-PLEX PCR POSITIVE (Negative)
== END ==
PROVIDERS: Family Provider Nurse Practitioner; PCP Nurse Practitioner; Visit Provider Physician Assistant Surgical
DX: Z20.822 Contact with and (suspected) exposure to COVID-19 (principal)
CPT/HCPCS: 0241U

== ENCOUNTER → 2023-10-17 15:47 | Outpatient (CLI) | payer MEDICARE, MEDICAID, SELFPAY | PROVIDERS: Family Provider Nurse Practitioner; PCP Nurse Practitioner; Visit Provider Physician Assistant | DX: R30.0 Dysuria (principal) | CPT/HCPCS: 87077; 87086; 87186 ==

== ENCOUNTER → 2023-10-18 14:49 | Outpatient (CLI) | payer MEDICARE, MEDICAID, SELFPAY ==
--- NOTE | 2023-10-18 14:53 | DI.RAD.S_ITS ---
PROCEDURE: XR CHEST 2V INDICATIONS: cough, SOB TECHNIQUE: 2 views of the chest were acquired. COMPARISON: [facility], CR, XR CHEST 2V, 07/23/2022, 16:36. FINDINGS: Surgical changes and devices: None. Lungs and pleura: Mildly increased pulmonary vascularity. No pleural effusions or pneumothorax. Mediastinum: Mediastinal contours are normal. Heart size is mildly increased. Bones and chest wall: Postsurgical changes in cervical spine lumbar spine. No suspicious bony abnormalities. Soft tissues appear unremarkable. IMPRESSION: 1. Mild cardiomegaly and increased pulmonary vascularity suggesting mild CHF. Dictated by: Do White M.D. on 10/18/2023 at 15:54 Approved by: Do White M.D. on 10/18/2023 at 15:55
== END ==
LOC: RAD 14:52
PROVIDERS: Family Provider Nurse Practitioner; PCP Nurse Practitioner; Referring Provider Physician Assistant; Visit Provider Physician Assistant
DX: R05.9 Cough, unspecified (principal); I51.7 Cardiomegaly
CPT/HCPCS: 71046

== ENCOUNTER 2023-10-25 16:45 | Outpatient (RCR) | payer MEDICARE, MEDICAID, SELFPAY ==
--- NOTE | 2023-09-16 17:18 | PT.OIE ---
Current Diagnoses Pain in right shoulder (09/16/23) Spondylosis without myelopathy or radiculopathy, lumbar region (09/16/23) Spinal stenosis, lumbar region without neurogenic claudication (09/16/23) Sciatica, unspecified side (09/16/23) Low back pain, unspecified (09/16/23) Past Medical History (Last Reviewed 08/04/23 @ 14:27 by HAMZAH Navas) Abnormal Pap smear of cervix (~1956) ADD (attention deficit disorder) ADD (attention deficit disorder) Anemia Ankle pain Anxiety Arachnoiditis Atrial fibrillation Bilirubin in urine Cataracts, bilateral Cervical spine disease Chronic back pain CKD (chronic kidney disease) Class 1 obesity due to excess calories with body mass index (BMI) of 34.0 to 34.9 in adult COPD (chronic obstructive pulmonary disease) COVID Cystic fibrosis (~1956) Degenerative joint disease (DJD) of lumbar spine Depression Depression Dysphagia Dysphagia Encounter for Medicare annual wellness exam Fibromyalgia Fibromyalgia Foot pain Foraminal stenosis of lumbar region Frequent falls GERD (gastroesophageal reflux disease) GI bleeding Heavy menstrual period Hypertension Kidney cysts Kidney stones Loss of voice Osteoporosis Peripheral neuropathy Peripheral vascular disease of extremity with claudication Pneumonia Post traumatic stress disorder (PTSD) Raynaud's disease without gangrene Restless leg syndrome Rheumatoid arthritis Right leg injury Sacralization of lumbar vertebra Sciatica Scoliosis Screening for malignant neoplasm of colon Severe 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, without psychotic features (07/05/16) Skin cancer (~1996) SOB (shortness of breath) on exertion Stroke UTI (urinary tract infection) Venous stasis Vertigo (~1968) Past Surgical History (Last Reviewed 08/04/23 @ 14:27 by HAMZAH Navas) History of back surgery History of hip replacement History of knee replacement (11/29/16) History of neck surgery S/P total abdominal hysterectomy and bilateral salpingo-oophorectomy Status post appendectomy Status post bunionectomy (08/11/15) Status post cholecystectomy Status post tonsillectomy and adenoidectomy Status post tubal ligation Visit Care Team Role Provider Type HAMZAH Navas Attending Provider Advanced Sheet H[employer] Family Provider Primary Care Provider Referring Provider Specialty: Family Practice Address: [address] [place] [address], [id number] Email: [email or web address] Physical Therapy Initial Evaluation PT-OP-A Visit Information Start: 09/16/23 16:49 Freq: Status: Active Protocol: Document 09/16/23 14:30 DCW (Rec: 09/16/23 17:05 DCW [id number]) Out-Patient Physical Therapy Visit Information Visit Information Visit Type Initial Evaluation Visit Start Time 14:30 Visit Stop Time 15:05 Total Visit Minutes 35 Visit Number 1 Number of PAN SHAKER Visits 0 Evaluation Information Evaluation Date 09/16/23 PT-OP-B Current Condition Start: 09/16/23 16:49 Freq: Status: Active Protocol: Document 09/16/23 14:30 DCW (Rec: 09/16/23 17:05 DCW [id number]) Current Condition History of Current Condition Onset Date Long-standing history Current Complaints Weakness, declining activity tolerance, neck/shoulder/back/ leg pain History of Current Condition Pt is a 78 year old female well known to this clinic with a long-standing history of decreased functional mobility, 19 back surgeries, bilateral hip replacements, severe scoliosis, severe degenerative joint disease, and general imbalance/deconditioning. Pt reports she has worsened since she was last in PT (last appointment 09/13/22). Admits she really just can't walk. Uses 3WW to get up and get around, very limited with SOB, leg and back pain, and general weakness. Additionally notes declining function of her shoulder mobility, unable to perform any overhead movements, can't put her hair up. Treatment Goals Patient/Caregiver Goals To be able to walk more PT-OP-C Subjective Start: 09/16/23 16:49 Freq: Status: Active Protocol: Document 09/16/23 14:30 DCW (Rec: 09/16/23 17:05 DCW [id number]) OP-PT Subjective Patient Comments Patient Comments It's gotten harder to walk, even just around my house. Patient Questionnaires Quick Dash- Upper Extremity Quick Dash UE Score 77.5% Quick Dash UE Impairment 60 to 79% Impaired (Score 60- 79) PT-OP-E Functional Tests Start: 09/16/23 16:49 Freq: Status: Active Protocol: Document 09/16/23 14:30 DCW (Rec: 09/16/23 17:05 DCW [id number]) Functional Tests 2 Minute Walk Test Distance 169' Device Used 3WW Comments Stopped at 1:25 Five Times Sit to Stand Test Score 63.77 Timed Up and Go (TUG) Score 18.2 /c 3WW Comments Three-trial average (19.43, 17 .78, 17.40) TUG Impairment Rating 80 to <100% Impaired (Score 18 -19) PT-OP-G Mobility & Gait Start: 09/16/23 16:49 Freq: Status: Active Protocol: Document 09/16/23 14:30 DCW (Rec: 09/16/23 17:05 DCW [id number]) OP Gait Assessment Comments Gait Comments Pt ambulated with severe right lateral flexion, antalgic gait, decreased stride length, occasional right knee buckling secondary to pain PT-OP-K Range of Motion Start: 09/16/23 16:49 Freq: Status: Active Protocol: Document 09/16/23 14:30 DCW (Rec: 09/16/23 17:05 DCW [id number]) Cervical Spine Range of Motion Cervical Spine Active Degrees Testing Position Sitting Flexion 55 Extension 5 Rotation Left 20 Rotation Right 42 Lateral Flexion Left 3 Lateral Flexion Right 15 ROM Limitations Soft Tissue Tightness,Bony Restriction,Muscle Weakness, Muscle Tone,Pain Shoulder Goniometric Range of Motion Shoulder Right Active Shoulder ROM WFL No Testing Position Sitting Flexion 111 Abduction 120 External Rotation at 0 degrees Abduction 50 Internal Rotation Behind Back (text) R PSIS Left Active Shoulder ROM WFL No Testing Position Sitting Flexion 92 Abduction 106 External Rotation at 0 degrees Abduction 37 Internal Rotation Behind Back (text) T12 PT-OP-M Strength Start: 09/16/23 16:49 Freq: Status: Active Protocol: Document 09/16/23 14:30 DCW (Rec: 09/16/23 17:05 DCW [id number]) Hip Strength Hip Manual Muscle Testing Right Flexion (L2) 3+ Fair+ Extension (S1) 3+ Fair+ Abduction 4- Good- Adduction 4- Good- External Rotation 4 Good Internal Rotation 4 Good Left Flexion (L2) 4+ Good+ Extension (S1) 3+ Fair+ Abduction 4- Good- Adduction 4 Good External Rotation 3+ Fair+ Internal Rotation 4- Good- Knee Strength Knee Manual Muscle Testing Right Flexion (S2) 4- Good- Extension (L3) 4 Good Left Flexion (S2) 4+ Good+ Extension (L3) 4 Good Ankle/Foot Strength Ankle and Foot Manual Muscle Testing Right Dorsiflexion (L4) 3+ Fair+ Left Dorsiflexion (L4) 3- Fair- PT-OP-T Assessment and Plan Start: 09/16/23 16:49 Freq: Status: Active Protocol: Document 09/16/23 14:30 DCW (Rec: 09/16/23 17:17 DCW [id number]) Physical Therapy Assessment Rehab Potential Rehabilitation Potential Fair Evaluation Complexity Number of Personal Factors/Comorbidities 3 or More Number of Body Systems Impaired 4 or More Clinical Presentation at Evaluation Unstable Impairments Impairments Activity Tolerance,Balance, Functional Activities, Functional Mobility,Gait,Pain, Posture,ROM,Soft Tissue Mobility,Strength,Tone, Transfers,Vestibular Goals Three Impairment Pt unable to complete 2 MWT, stopping for a seated break at 1:25 Assisted Goal (LTG) Pt to demonstrate ability to fully complete a 2MWT, and ambulate at least 237' using LRAD, which is a pace of 1.97 ft/sec. A pace slower than this and indicate an increased risk of further functional decline in older adults. LTG Duration 12/15/23 Two Impairment Pt completes 5 times Sit to printing table worker 63.77 Assisted Goal (LTG) Pt to improve 5xStS score by at least 23 seconds to <40 in order to demonstrate improved leg strength and activity tolerance LTG Duration 12/15/23 One Impairment Pt does not have an appropriate home exercise program Short Term Goal (STG) Pt to be independent and compliant with an appropriate HEP STG Duration 10/17/23 Assessment Summary Assessment Pt presents with a complex medical history and declining functional mobility since she was last treated in skilled PT one year ago. Pt exhibits bilateral LE weakness, poor activity tolerance, limitations in shoulder and cervical ROM, and difficulty in gait/balance. Pt's TUG score has worsened to 18.20, down from 13.80 one year ago. LE strength also significantly worse when compared to one year ago. Pt should benefit from skilled therapeutic intervention focusing on balance and gait training, strengthening, ROM/ flexibility, and improving activity tolerance. Physical Therapy Plan Frequency and Duration Frequency of Treatment 2x/Week Plan of Care Start Date 09/16/23 Plan of Care End Date 12/15/23 Therapeutic Interventions Therapeutic Interventions Balance Training,Gait Training ,Home Exercise Program,Joint Mobilizations,Manual Therapy, Neuromuscular Re-education, Patient/Caregiver Education, Self-Care/Home Management,Soft Tissue Mobilization, Therapeutic Activities, Therapeutic Exercises Next Visit Focus/Plan Next Note Type Treatment Note Next Visit Plan Activity tolerance, shoulder mobility, LE strengthening, balance
--- NOTE | 2023-09-16 17:18 | PT.OPPOC ---
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) Spinal stenosis, lumbar region without neurogenic claudication (09/16/23) Sciatica, unspecified side (09/16/23) Low back pain, unspecified (09/16/23) Visit Care Team Role Provider Type HAMZAH Navas Attending Provider Advanced Plug Stitcher Family Provider Primary Care Provider Referring Provider Specialty: Family Practice Address: [address] [place] [address], [facility] Email: [email or web address] Plan Of Care PT-OP-T Assessment and Plan Start: 09/16/23 16:49 Freq: Status: Active Protocol: Document 09/16/23 14:30 DCW (Rec: 09/16/23 17:17 DCW [id number]) Physical Therapy Assessment Rehab Potential Rehabilitation Potential Fair Evaluation Complexity Number of Personal Factors/Comorbidities 3 or More Number of Body Systems Impaired 4 or More Clinical Presentation at Evaluation Unstable Impairments Impairments Activity Tolerance,Balance, Functional Activities, Functional Mobility,Gait,Pain, Posture,ROM,Soft Tissue Mobility,Strength,Tone, Transfers,Vestibular Goals Three Impairment Pt unable to complete 2 MWT, stopping for a seated break at 1:25 Mgmt Consultant Goal (LTG) Pt to demonstrate ability to fully complete a 2MWT, and ambulate at least 237' using LRAD, which is a pace of 1.97 ft/sec. A pace slower than this and indicate an increased risk of further functional decline in older adults. LTG Duration 12/15/23 Two Impairment Pt completes 5 times Sit to personal fitness trainer 63.77 Fdc Goal (LTG) Pt to improve 5xStS score by at least 23 seconds to <40 in order to demonstrate improved leg strength and activity tolerance LTG Duration 12/15/23 One Impairment Pt does not have an appropriate home exercise program Short Term Goal (STG) Pt to be independent and compliant with an appropriate HEP STG Duration 10/17/23 Assessment Summary Assessment Pt presents with a complex medical history and declining functional mobility since she was last treated in skilled PT one year ago. Pt exhibits bilateral LE weakness, poor activity tolerance, limitations in shoulder and cervical ROM, and difficulty in gait/balance. Pt's TUG score has worsened to 18.20, down from 13.80 one year ago. LE strength also significantly worse when compared to one year ago. Pt should benefit from skilled therapeutic intervention focusing on balance and gait training, strengthening, ROM/ flexibility, and improving activity tolerance. Physical Therapy Plan Frequency and Duration Frequency of Treatment 2x/Week Plan of Care Start Date 09/16/23 Plan of Care End Date 12/15/23 Therapeutic Interventions Therapeutic Interventions Balance Training,Gait Training ,Home Exercise Program,Joint Mobilizations,Manual Therapy, Neuromuscular Re-education, Patient/Caregiver Education, Self-Care/Home Management,Soft Tissue Mobilization, Therapeutic Activities, Therapeutic Exercises Next Visit Focus/Plan Next Note Type Treatment Note Next Visit Plan Activity tolerance, shoulder mobility, LE strengthening, balance Plan of Care Dates Plan of Care Start Date 09/16/23 Plan of Care End Date 12/15/23 Electronically Signed by: Santi No, PT 09/16/23 [id number] If you are in agreement with this Plan of Care, please return a signed and dated copy. I have reviewed this Plan of Care and certify that the skilled therapy services above are required to meet the patient?s needs. Physician Signature Date Printed Name and Credentials Clinical Instructor Signature Printed Name and Credentials
--- NOTE | 2023-10-11 16:23 | PT-OP ANOTE ---
Spoke with pt by phone, pt has been very sick with Covid, but is finally asymptomatic and planning to attend her appointment Tuesday.
--- NOTE | 2023-10-25 17:32 | PT.OTN ---
Current Diagnoses Pain in right shoulder (10/25/23) Spondylosis without myelopathy or radiculopathy, lumbar region (10/25/23) Spinal stenosis, lumbar region without neurogenic claudication (10/25/23) Sciatica, unspecified side (10/25/23) Low back pain, unspecified (10/25/23) Physical Therapy Treatment Note PT-OP-A Visit Information Start: 09/16/23 16:49 Freq: Status: Active Protocol: Document 10/25/23 16:45 DCW (Rec: 10/25/23 17:32 DCW [id number]) Out-Patient Physical Therapy Visit Information Visit Information Visit Type Treatment Note Visit Start Time 16:45 Visit Stop Time 17:30 Visit Number 2 Number of BROKER ASSISTANT Visits 0 Evaluation Information Evaluation Date 09/16/23 PT-OP-B Current Condition Start: 09/16/23 16:49 Freq: Status: Active Protocol: Document 09/16/23 14:30 DCW (Rec: 09/16/23 17:05 DCW [id number]) Current Condition History of Current Condition Onset Date Long-standing history Current Complaints Weakness, declining activity tolerance, neck/shoulder/back/ leg pain History of Current Condition Pt is a 78 year old female well known to this clinic with a long-standing history of decreased functional mobility, 19 back surgeries, bilateral hip replacements, severe scoliosis, severe degenerative joint disease, and general imbalance/deconditioning. Pt reports she has worsened since she was last in PT (last appointment 09/13/22). Admits she really just can't walk. Uses 3WW to get up and get around, very limited with SOB, leg and back pain, and general weakness. Additionally notes declining function of her shoulder mobility, unable to perform any overhead movements, can't put her hair up. Treatment Goals Patient/Caregiver Goals To be able to walk more PT-OP-C Subjective Start: 09/16/23 16:49 Freq: Status: Active Protocol: Document 10/25/23 16:45 DCW (Rec: 10/25/23 17:32 DCW [id number]) OP-PT Subjective Patient Comments Patient Comments Pt feeling much better finally following recent covid diagnosis, although still having a little trouble breathing with activity. PT-OP-E Functional Tests Start: 09/16/23 16:49 Freq: Status: Active Protocol: Document 09/16/23 14:30 DCW (Rec: 09/16/23 17:05 DCW [id number]) Functional Tests 2 Minute Walk Test Distance 169' Device Used 3WW Comments Stopped at 1:25 Five Times Sit to Stand Test Score 63.77 Timed Up and Go (TUG) Score 18.2 /c 3WW Comments Three-trial average (19.43, 17 .78, 17.40) TUG Impairment Rating 80 to <100% Impaired (Score 18 -19) PT-OP-G Mobility & Gait Start: 09/16/23 16:49 Freq: Status: Active Protocol: Document 09/16/23 14:30 DCW (Rec: 09/16/23 17:05 DCW [id number]) OP Gait Assessment Comments Gait Comments Pt ambulated with severe right lateral flexion, antalgic gait, decreased stride length, occasional right knee buckling secondary to pain PT-OP-K Range of Motion Start: 09/16/23 16:49 Freq: Status: Active Protocol: Document 09/16/23 14:30 DCW (Rec: 09/16/23 17:05 DCW [id number]) Cervical Spine Range of Motion Cervical Spine Active Degrees Testing Position Sitting Flexion 55 Extension 5 Rotation Left 20 Rotation Right 42 Lateral Flexion Left 3 Lateral Flexion Right 15 ROM Limitations Soft Tissue Tightness,Bony Restriction,Muscle Weakness, Muscle Tone,Pain Shoulder Goniometric Range of Motion Shoulder Right Active Shoulder ROM WFL No Testing Position Sitting Flexion 111 Abduction 120 External Rotation at 0 degrees Abduction 50 Internal Rotation Behind Back (text) R PSIS Left Active Shoulder ROM WFL No Testing Position Sitting Flexion 92 Abduction 106 External Rotation at 0 degrees Abduction 37 Internal Rotation Behind Back (text) T12 PT-OP-M Strength Start: 09/16/23 16:49 Freq: Status: Active Protocol: Document 09/16/23 14:30 DCW (Rec: 09/16/23 17:05 DCW [id number]) Hip Strength Hip Manual Muscle Testing Right Flexion (L2) 3+ Fair+ Extension (S1) 3+ Fair+ Abduction 4- Good- Adduction 4- Good- External Rotation 4 Good Internal Rotation 4 Good Left Flexion (L2) 4+ Good+ Extension (S1) 3+ Fair+ Abduction 4- Good- Adduction 4 Good External Rotation 3+ Fair+ Internal Rotation 4- Good- Knee Strength Knee Manual Muscle Testing Right Flexion (S2) 4- Good- Extension (L3) 4 Good Left Flexion (S2) 4+ Good+ Extension (L3) 4 Good Ankle/Foot Strength Ankle and Foot Manual Muscle Testing Right Dorsiflexion (L4) 3+ Fair+ Left Dorsiflexion (L4) 3- Fair- PT-OP-Q Treatments Start: 09/16/23 16:49 Freq: Status: Active Protocol: Document 10/25/23 16:45 DCW (Rec: 10/25/23 17:32 DCW [id number]) Cardio Equipment Recumbent Elliptical (Biodex) Duration (Minutes) 5 Resistance 4 Seat Position 8 Gym Equipment Shuttle Recovery Unilateral Squats Resistance 50# Shuttle Recovery Platform Stable Reps/Time x20 each Bilateral Squats Resistance 75# Shuttle Recovery Platform Stable Reps/Time 2x20 Therapeutic Exercises Sitting Exercises Internal Rotation Sitting Exercise Name IR stretch /c towel Side bilateral AAROM Sitting Exercise Name Shoulder AAROM Pulleys Side bilateral Comments Flexion, Abduction Standing Exercises Toe-taps Standing Exercise Name Toe-taps Side bilateral Resistance 2# Equipment Used 6 step Neuro Re-Education Treatment Balance Activities NBOS Details NBOS Surface Firm floor Comments EO/EC Foam Stance Details Foam Stance Tandem Details Tandem Stance Equipment // bars PT-OP-T Assessment and Plan Start: 09/16/23 16:49 Freq: Status: Active Protocol: Document 10/25/23 16:45 DCW (Rec: 10/25/23 17:32 DCW [id number]) Physical Therapy Assessment Impairments Impairments Activity Tolerance,Balance, Functional Activities, Functional Mobility,Gait,Pain, Posture,ROM,Soft Tissue Mobility,Strength,Tone, Transfers,Vestibular Goals Three Impairment Pt unable to complete 2 MWT, stopping for a seated break at 1:25 Refinery Operator Goal (LTG) Pt to demonstrate ability to fully complete a 2MWT, and ambulate at least 237' using LRAD, which is a pace of 1.97 ft/sec. A pace slower than this and indicate an increased risk of further functional decline in older adults. LTG Duration 12/15/23 Two Impairment Pt completes 5 times Sit to litigation coordinator 63.77 Refinery Operator Goal (LTG) Pt to improve 5xStS score by at least 23 seconds to <40 in order to demonstrate improved leg strength and activity tolerance LTG Duration 12/15/23 One Impairment Pt does not have an appropriate home exercise program Short Term Goal (STG) Pt to be independent and compliant with an appropriate HEP STG Duration 10/17/23 Assessment Summary Assessment Pt showing poor activity tolerance, which is both how she typically presents at baseline, as well as lingering effects from recent fight with COVID. Pt did demonstrate good response to shoulder AAROM, good motion throughout bilateral shoulders. Physical Therapy Plan Frequency and Duration Frequency of Treatment 2x/Week Plan of Care Start Date 09/16/23 Plan of Care End Date 12/15/23 Therapeutic Interventions Therapeutic Interventions Balance Training,Gait Training ,Home Exercise Program,Joint Mobilizations,Manual Therapy, Neuromuscular Re-education, Patient/Caregiver Education, Self-Care/Home Management,Soft Tissue Mobilization, Therapeutic Activities, Therapeutic Exercises Next Visit Focus/Plan Next Note Type Treatment Note Next Visit Plan Activity tolerance, shoulder mobility, LE strengthening, balance
--- NOTE | 2024-01-25 14:23 | PT.OPDS ---
Current Diagnoses Pain in right shoulder (10/25/23) Spondylosis without myelopathy or radiculopathy, lumbar region (10/25/23) Spinal stenosis, lumbar region without neurogenic claudication (10/25/23) Sciatica, unspecified side (10/25/23) Low back pain, unspecified (10/25/23) Visit Care Team Role Provider Type HAMZAH Navas Attending Provider Advanced [employer] Consultant Family Provider Primary Care Provider Referring Provider Specialty: Family Practice Address: [address] [place] [address], [facility] Email: [email or web address] Visit Number Visit Number 2 Discharge Summary PT-OP-B Current Condition Start: 09/16/23 16:49 Freq: Status: Active Protocol: Document 09/16/23 14:30 DCW (Rec: 09/16/23 17:05 DCW [id number]) Current Condition History of Current Condition Onset Date Long-standing history Current Complaints Weakness, declining activity tolerance, neck/shoulder/back/ leg pain History of Current Condition Pt is a 78 year old female well known to this clinic with a long-standing history of decreased functional mobility, 19 back surgeries, bilateral hip replacements, severe scoliosis, severe degenerative joint disease, and general imbalance/deconditioning. Pt reports she has worsened since she was last in PT (last appointment 09/13/22). Admits she really just can't walk. Uses 3WW to get up and get around, very limited with SOB, leg and back pain, and general weakness. Additionally notes declining function of her shoulder mobility, unable to perform any overhead movements, can't put her hair up. Treatment Goals Patient/Caregiver Goals To be able to walk more PT-OP-C Subjective Start: 09/16/23 16:49 Freq: Status: Active Protocol: Document 10/25/23 16:45 DCW (Rec: 10/25/23 17:32 DCW [id number]) OP-PT Subjective Patient Comments Patient Comments Pt feeling much better finally following recent covid diagnosis, although still having a little trouble breathing with activity. PT-OP-E Functional Tests Start: 09/16/23 16:49 Freq: Status: Active Protocol: Document 09/16/23 14:30 DCW (Rec: 09/16/23 17:05 DCW [id number]) Functional Tests 2 Minute Walk Test Distance 169' Device Used 3WW Comments Stopped at 1:25 Five Times Sit to Stand Test Score 63.77 Timed Up and Go (TUG) Score 18.2 /c 3WW Comments Three-trial average (19.43, 17 .78, 17.40) TUG Impairment Rating 80 to <100% Impaired (Score 18 -19) PT-OP-G Mobility & Gait Start: 09/16/23 16:49 Freq: Status: Active Protocol: Document 09/16/23 14:30 DCW (Rec: 09/16/23 17:05 DCW [id number]) OP Gait Assessment Comments Gait Comments Pt ambulated with severe right lateral flexion, antalgic gait, decreased stride length, occasional right knee buckling secondary to pain PT-OP-K Range of Motion Start: 09/16/23 16:49 Freq: Status: Active Protocol: Document 09/16/23 14:30 DCW (Rec: 09/16/23 17:05 DCW [id number]) Cervical Spine Range of Motion Cervical Spine Active Degrees Testing Position Sitting Flexion 55 Extension 5 Rotation Left 20 Rotation Right 42 Lateral Flexion Left 3 Lateral Flexion Right 15 ROM Limitations Soft Tissue Tightness,Bony Restriction,Muscle Weakness, Muscle Tone,Pain Shoulder Goniometric Range of Motion Shoulder Right Active Shoulder ROM WFL No Testing Position Sitting Flexion 111 Abduction 120 External Rotation at 0 degrees Abduction 50 Internal Rotation Behind Back (text) R PSIS Left Active Shoulder ROM WFL No Testing Position Sitting Flexion 92 Abduction 106 External Rotation at 0 degrees Abduction 37 Internal Rotation Behind Back (text) T12 PT-OP-M Strength Start: 09/16/23 16:49 Freq: Status: Active Protocol: Document 09/16/23 14:30 DCW (Rec: 09/16/23 17:05 DCW [id number]) Hip Strength Hip Manual Muscle Testing Right Flexion (L2) 3+ Fair+ Extension (S1) 3+ Fair+ Abduction 4- Good- Adduction 4- Good- External Rotation 4 Good Internal Rotation 4 Good Left Flexion (L2) 4+ Good+ Extension (S1) 3+ Fair+ Abduction 4- Good- Adduction 4 Good External Rotation 3+ Fair+ Internal Rotation 4- Good- Knee Strength Knee Manual Muscle Testing Right Flexion (S2) 4- Good- Extension (L3) 4 Good Left Flexion (S2) 4+ Good+ Extension (L3) 4 Good Ankle/Foot Strength Ankle and Foot Manual Muscle Testing Right Dorsiflexion (L4) 3+ Fair+ Left Dorsiflexion (L4) 3- Fair- PT-OP-T Assessment and Plan Start: 09/16/23 16:49 Freq: Status: Active Protocol: Document 01/25/24 14:22 DCW (Rec: 01/25/24 14:23 DCW [id number]) Physical Therapy Assessment Assessment Summary Assessment Pt has not been seen in more than three months, does not have any follow-up visits scheduled. Pt will be discharged from skilled PT at this time, will require a new referral in order to return. Physical Therapy Plan Discharge Physical Therapy Discharge Reasons No Longer Attending PT
== END 2024-02-01 13:34 ==
LOC: PHYS 16:45
PROVIDERS: Family Provider Nurse Practitioner; PCP Nurse Practitioner; Referring Provider Nurse Practitioner; Visit Provider Nurse Practitioner
DX: M47.816 Spondylosis without myelopathy or radiculopathy, lumbar region (principal); M48.061 Spinal stenosis, lumbar region without neurogenic claudication; M54.30 Sciatica, unspecified side; M54.50 Low back pain, unspecified; M25.511 Pain in right shoulder
CPT/HCPCS: 97110; 97112; 97163

== ENCOUNTER → 2023-10-31 13:52 | Outpatient (CLI) | payer MEDICARE, MEDICAID, SELFPAY ==
--- NOTE | 2023-10-31 13:56 | DI.MG.S_ITS ---
BILATERAL DIGITAL SCREENING MAMMOGRAM 3D/2D WITH CAD: 10/31/2023 CLINICAL: Routine screening. Comparison is made to exam dated: 07/21/2016 mammogram - [facility]. There are scattered areas of fibroglandular density in both breasts (category b / 25%-50% glandular tissue). Current study was also evaluated with a Computer Aided Detection (CAD) system. There are benign vascular calcifications in both breasts. No significant masses, calcifications, or other findings are seen in either breast. There has been no significant interval change. IMPRESSION: BENIGN There is no mammographic evidence of malignancy. A 1 year screening mammogram is recommended. Based on the Tyrer Cuzick model (a risk assessment model) the patient's lifetime risk is 1.2% and her 10 year risk is 0.0%. According to the ACR, ACS, and NCCN guidelines, an annual breast MRI exam along with mammogram is recommended if the patient's lifetime risk is 20% or greater. This exam was interpreted at Station ID: [id number]. NOTE: For mammograms, a report in lay terms will be sent to the patient. Approximately 15% of breast malignancies will not be visualized mammographically. In the management of a palpable breast mass, a negative mammogram must not discourage biopsy of a clinically suspicious lesion. Electronically Signed By: Mario Alberto corral/bob:10/31/2023 17:36:30 letter sent: Normal Exam ACR BI-RADS Category 2: Benign Finding(s) 3342F
--- NOTE | 2023-10-31 13:56 | DI.RAD.S_ITS ---
Bone Density Report Name: BERNARDA ROBBINS Age: 78 Sex: Female Ethnicity: White Date of : 1945 Indication: postmenopausal; screening for osteoporosis; Referring Provider: GIGI LOZA Study: Bone densitometry was performed. Exam Date: October 31, 2023 Accession number: [id number] Bone Density: Region BMD T-score Z-score Classification Total Forearm (Left) 0.483 -1.8 1.1 Osteopenia 1/3 Forearm (Left) 0.621 -1.2 1.8 Osteopenia UD Forearm (Left) 0.430 -0.2 1.9 Normal World Health Organization criteria for BMD impression classify patients as: Normal (T-score at or above -1.0), Osteopenia (T-score between -1.0 and -2.5), or Osteoporosis (T-score at or below -2.5). Impression: The patient has low bone mass, based on the Left Third Radius T-score. Discussion: BONE DENSITY IS LOW AT ONE OR MORE SKELETAL SITES. This patient's lowest T-score is low at one or more skeletal sites. It meets the World Health Organization's (WHO) criteria for low bone mass (T-score between -1.0 and -2.5). The patient's 10-year risk of fracture as calculated by FRAX is less than the threshold where pharmacological therapy is recommended by the National Osteoporosis Foundation (NOF). However, all treatment decisions require clinical judgment and consideration of individual patient factors, including patient preferences, comorbidities, previous drug use, risk factors not captured in the FRAX model (e.g., frailty, falls, vitamin D deficiency, increased bone turnover, interval significant decline in bone density) and possible under or overestimation of fracture risk by FRAX. The patient should follow a healthful lifestyle (good nutrition with adequate calcium and vitamin D, and appropriate weight-bearing exercise). Follow-Up: Consider repeating this study in 2 to 3 years to reassess this patient's status, or sooner if there is some new clinical indication. Reported by: YESENIA MCKEON M.D. on 10/31/2023 3:10:00 PM.
--- NOTE | 2023-10-31 13:56 | DI.MRI.S_ITS ---
PROCEDURE: MR LUMBAR SPINE WO CON INDICATIONS: leg weakness and pain, back pain in lumbar sacral region TECHNIQUE: Noncontrast sagittal T1 spin echo and T2 fast echo, sagittal STIR, and T2 fast spin echo through the lumbar spine. In cases with scoliosis, additional coronal T2 fast spin echo may be performed. COMPARISON: [facility], , MR LUMBAR SPINE WO CON, 05/04/2022, 12:57. FINDINGS: Image quality: Excellent. Transitional anatomy noted. There is partial sacralization of the L5 vertebral body. Numbering convention is consistent with prior Alignment and Curvature: Unchanged Bone Marrow: Posterior abdiel and screw instrumentation noted at L1 through L4. Discectomy and fusion with excellent graft incorporation noted at L4-5 and L5-S1. Decompressive laminectomies L2, L4 and L5 Spinal Cord: Conus medullaris terminates at the L1 level. Visualized cord demonstrates normal signal and size. There is clumping of the nerve roots inferiorly with thecal sac adherence consistent with sequelae of arachnoiditis Paraspinous Soft Tissues: No paravertebral masses. T12-L1: Disc space narrowing with mild central and severe right with moderate left foraminal stenosis. L1-L2: Disc space narrowing. No central stenosis. Moderate bilateral foraminal stenosis L2-L3: Disc space narrowing with decompressive laminectomy. Probable discectomy and fusion no central stenosis. Severe bilateral foraminal stenosis L3-L4: Disc space narrowing. No central stenosis. Moderate bilateral foraminal stenosis L4-L5: Discectomy and fusion with widely patent central canal. No foraminal stenosis L5-S1: Discectomy and fusion. No central or foraminal stenosis. IMPRESSION: Stable MRI of the lumbar spine. 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 Mid lumbar spine instrumentation and decompression. Lower lumbar spine interbody fusion. Approved by: Jimmy Rodriguez M.D. on 10/31/2023 at 19:15
== END ==
PROVIDERS: Family Provider Nurse Practitioner; PCP Nurse Practitioner; Referring Provider Nurse Practitioner; Visit Provider Nurse Practitioner
DX: Z12.31 Encounter for screening mammogram for malignant neoplasm of breast; M54.50 Low back pain, unspecified; R92.323 Mammographic fibroglandular density, bilateral breasts; M81.0 Age-related osteoporosis without current pathological fracture; M48.061 Spinal stenosis, lumbar region without neurogenic claudication; M79.604 Pain in right leg; M79.605 Pain in left leg; M53.3 Sacrococcygeal disorders, not elsewhere classified; G03.9 Meningitis, unspecified; R29.898 Other symptoms and signs involving the musculoskeletal system; Z98.1 Arthrodesis status
CPT/HCPCS: 72148; 77063; 77067; 77081

== ENCOUNTER → 2023-11-16 16:17 | Outpatient (CLI) | payer MEDICARE, MEDICAID, SELFPAY ==
[2023-11-16 16:48] LABS: Add Manual Diff / Slide Review NO; Basophils Absolute Auto 100 /uL (0-100); Basophils Percent Auto 1.2 % (0-2); Eosinophils Absolute Auto 200 /uL (0-450); Hemoglobin 10.9 g/dL (12.0-16.0); Lymphocytes Absolute Auto 1600 /uL (1100-4500); Lymphocytes Percent Auto 20.4 % (25-40); Mean Corpuscular HGB Conc 33.1 % (30-36); Mean Corpuscular Hemoglobin 28.4 PG (26-34); Mean Corpuscular Volume 85.9 fL (80-100); Monocytes Absolute Auto 600 /uL (0-900); Monocytes Percent Auto 8.4 % (3-14); Neutrophils Absolute Auto 5100 /uL (1500-7000); Platelet Count 257 X10^3/uL (150-400); Red Blood Cell Count 3.84 X10^6/uL (4.0-5.2); Red Cell Distribution Width 15.2 % (11.6-14.8); White Blood Cell Count 7.7 X10^3/uL (4.5-11.0)
[2023-11-16 17:06] LABS: HEMOLYSIS 20 (0-50); Iron 71 ug/dL (37-170)
[2023-11-16 17:07] LABS: Alanine Aminotransferase 16 IU/L (<35); Albumin 4.2 g/dL (3.5-5.0); Albumin Globulin Ratio 1.1 (1.0-2.8); Alkaline Phosphatase 96 U/L (38-126); Aspartate Aminotransferase 23 IU/L (14-36); BUN Creatinine Ratio 16.5 (6-22); Bilirubin Total 0.6 mg/dL (0.2-1.3); Blood Urea Nitrogen 26 mg/dL (7-17); Calcium 9.4 mg/dL (8.4-10.2); Carbon Dioxide 30 mmol/L (22-32); Chloride 106 mmol/L (98-107); Estimated Glomerular Filt Rate 33 mL/min (>60); Globulin 3.7 g/dL (1.7-4.1); Glucose 84 mg/dL (80-110); HEMOLYSIS < 15 (0-50); Potassium 4.3 mmol/L (3.4-5.1); Sodium 139 mmol/L (137-145); Total Protein 7.9 g/dL (6.3-8.2)
[2023-11-16 17:16] LABS: Percent Iron Saturation 21 % (15-50); Total Iron Binding Capacity 343 ug/dL (265-497); Transferrin 277 mg/dL (206-381)
[2023-11-16 17:23] LABS: Progesterone, Total 0.23 ng/mL
[2023-11-16 17:24] LABS: Free T3, Triiodothyronine Free 3.59 pg/mL (2.77-5.27); Free T4, Direct Thyroxine 1.28 ng/dL (0.78-2.19)
[2023-11-16 17:41] LABS: Ferritin 25 ng/mL (11-264); Testosterone 12.2 ng/dL (5.71-77.0)
[2023-11-16 17:45] LABS: Creatinine Urine Random 98.2 mg/dL; Protein (Total) Urine Random 27 mg/dL (0-12); Protein Creatinine Ratio Urine 0.27 GRAM/24H
[2023-11-16 17:49] LABS: Microalbumi Creatinin Ratio Ur 128.3 ug/mg CR (<30); Microalbumin Urine Random 12.6 mg/dL (0-1.6)
[2023-11-21 12:52] LABS: Estrogen 64 pg/mL (40-244)
== END ==
PROVIDERS: Family Provider Nurse Practitioner; PCP Nurse Practitioner; Referring Provider Nurse Practitioner; Visit Provider Nurse Practitioner
DX: I10 Essential (primary) hypertension (principal); N18.31 Chronic kidney disease, stage 3a; R80.9 Proteinuria, unspecified; L65.9 Nonscarring hair loss, unspecified; I48.91 Unspecified atrial fibrillation; N18.30 Chronic kidney disease, stage 3 unspecified
CPT/HCPCS: 80053; 82043; 82570; 82672; 82728; 83540; 83550; 84144; 84156; 84403; 84439; 84443; 84481; 85025

== ENCOUNTER → 2023-12-15 16:02 | Outpatient (CLI) | payer MEDICARE, MEDICAID, SELFPAY ==
--- NOTE | 2023-12-23 10:20 | DIET.OUTPTC ---
Dietary Outpatient Consultation Note Consultation Date: 12/15/2023 Assessment: 78 y F referred for nutritional services for CKD3. Janet's goals are to eat healthier for help with weight management and CKD3. She likes a limited amount of vegetables: salad, green beans, tomatoes, and corn. cooks dinner, her only meal of the day. GI symptoms: acid reflux/heartburn like symptoms when she eats too fast/takes too big of bites Aims for softer foods due to missing lower teeth and difficulty chewing. Diet recall: 6-7p dinner: 4 oz meat (breaded fish/chicken), potatoes or rice, sometimes a salad After dinner snack: popcorn, [place] yogurt, fruit flavored Beverages: diet Mt Dew x2-3 8 oz cans/day, 3 8 oz glasses of water, sometimes glass of sugar free juice Ht: 5 ft 3 in Wt: 196 lb 6 oz (89.074 kg) BMI: 34.7 UBW: - Weight history: 12/20/23: 89.074 kg 09/28/23: 94.347 kg 07/06/24: 92.249 kg 02/05/23: 90.265 kg Lab values: eGFR: past year 31-38 mL/min Creat: 11/16/23: 1.58 BUN: 11/16/23: 26 K+ WNL Nutrition Diagnosis: Nutrition related knowledge deficit r/t no previous educ as evidenced by pt's nutritional assessment Interventions: 1. Provided MNT for CKD3 and weight management -Including- Educ on balanced meals, macro and micronutrients, label reading Goals: 1. Added daytime meal/snack consisting of portioned protein/fiber/carb (leftovers +fruit OR yogurt and fruit) 2. Consistent vegetable from selection she likes or fruit at dinner time EER: 40-60 g protein/day (0.6 g/kg CKD3) Monitoring/Evaluations: related lab values, goals, diet recall, weight Electronically Signed by: Sherlyn Calabrese 12/23/23 10:20 Clinical Dietitian [address] [id number]
== END ==
LOC: DIET 16:03
PROVIDERS: Family Provider Nurse Practitioner; PCP Nurse Practitioner
DX: I12.9 Hypertensive chronic kidney disease with stage 1 through stage 4 chronic kidney disease, or unspecified chronic kidney disease (principal); N18.30 Chronic kidney disease, stage 3 unspecified; J44.9 Chronic obstructive pulmonary disease, unspecified; L65.9 Nonscarring hair loss, unspecified; I48.91 Unspecified atrial fibrillation; Z71.3 Dietary counseling and surveillance; Z68.34 Body mass index [BMI] 34.0-34.9, adult
CPT/HCPCS: 97802

== ENCOUNTER → 2024-01-10 14:52 | Outpatient (CLI) | payer MEDICARE, MEDICAID, SELFPAY ==
--- NOTE | 2024-01-12 14:17 | DIET.OUTPTC ---
Dietary Outpatient Consultation Note Consultation Date: 01/10/2024 Assessment: 78 y F referred to dietitian for CKD3. Nutrition f/u (1). Janet reports 8 lb weight loss per scale weight at home (185 lb), noted 198 lb at office visit last week but had shoes and items in pocket per pt. She contributes this weight loss to reduced snacking at night of sweets and vegetable chips. Instead has yogurts, fruits, or cottage cheese. Has added meals/snacks to daytime. Diet recall: B: egg (1) and toast (whole wheat, 2), 1/2 glass OJ L: 1 (5 oz) fruit flavored [employer] yogurt w/ fruit D: Dinner ( makes) -4-6 oz protein serving post dinner snacks: [employer] yogurt Drinks: 1/2 can mt dew, increased water intake, 4+ glasses, 6 oz cranberry juice Reports avg of 2-3 [employer] yogurt (5 oz)/day, sometimes with add't cottage cheese. She likes a limited amount of vegetables: salad, green beans, tomatoes, and corn. cooks dinner. GI symptoms: acid reflux/heartburn like symptoms when she eats too fast/takes too big of bites Aims for softer foods due to missing lower teeth and difficulty chewing. Ht: 5 ft 3 in Wt: 185 lb (84 kg) BMI: 32.8 Weight history: 01/11/24 pt reported weight: 84 kg 12/20/23: 89.074 kg 09/28/23: 94.347 kg 07/06/24: 92.249 kg 02/05/23: 90.265 kg Nutrition Diagnosis: (continued) Nutrition related knowledge deficit r/t no previous educ as evidenced by pt's nutritional assessment Interventions: Continued MNT for CKD 3 and wt management: 1. Reviewed educ from last session 2. Discussed protein with CKD3 - sources (plant v animal) and amount 3. Discussed continued increase in fruit and veg intake Goals: 1. 45-55 g protein/day (CKD 3) 2. 3 fruits/day, 1 vegetable serving Monitoring/Evaluations: related lab values, goals, diet recall, weight Electronically Signed by: Sherlyn Calabrese 01/12/24 14:17 Clinical Dietitian [address] [id number]
== END ==
PROVIDERS: Family Provider Nurse Practitioner; PCP Nurse Practitioner; Referring Provider Nurse Practitioner
DX: I12.9 Hypertensive chronic kidney disease with stage 1 through stage 4 chronic kidney disease, or unspecified chronic kidney disease (principal); N18.30 Chronic kidney disease, stage 3 unspecified; J44.9 Chronic obstructive pulmonary disease, unspecified; L65.9 Nonscarring hair loss, unspecified; I48.91 Unspecified atrial fibrillation; Z68.32 Body mass index [BMI] 32.0-32.9, adult; Z71.3 Dietary counseling and surveillance
CPT/HCPCS: 97803

== ENCOUNTER 2024-01-18 12:23 | Emergency (ER) | payer MEDICARE, MEDICAID, SELFPAY ==
[2024-01-18 12:25] VITALS: BP 168/66; PULSE 75; RESP 18; TEMP 37.1; O2SAT 97; BMI 34.0
--- NOTE | 2024-01-18 12:35 | DI.US.S_ITS ---
PROCEDURE: US PERIP VENOUS LOW EXTREM LT INDICATIONS: swelling and pain x 2 weeks TECHNIQUE: Real-time imaging, as well as color and pulse Doppler interrogation, were performed of the lower extremity deep veins from the inguinal ligament to the popliteal fossa, with documentation of the visualized calf veins. COMPARISON: [facility], , [facility] VENOUS LOW EXTREM LT, 03/31/2019, 19:22. FINDINGS: The common femoral, femoral, popliteal, and the visualized calf veins are normally compressible, and free of intraluminal thrombus. Color and pulse Doppler demonstrate normal phasic intraluminal flow. There is normal augmentation response to distal compression maneuver. IMPRESSION: No findings of lower extremity deep venous thrombosis. Dictated by: Elvis Michele M.D. on 01/18/2024 at 12:14 Approved by: Elvis Michele M.D. on 01/18/2024 at 12:14
--- NOTE | 2024-01-18 12:45 | ED.EXTPRO ---
HPI - Extremity Problem <Kerri Gómez PA-C - Last Filed: 01/18/24 14:43> General Chief complaint: Extremity Problem,Nontraumatic Stated complaint: lft leg swelling and pain Time Seen by Provider: 01/18/24 12:29 Source: patient Mode of arrival: Ambulatory History of Present Illness HPI Narrative: This is a 79-year-old woman with history of AFib, right-sided DVT, on Eliquis, bilateral hip replacements and right knee replacement, lumbar fusion, chronic pain on pain management with suboxone who presents with concern for possible DVT of her left calf. Patient states for about the past 2 weeks she has had increasing pain in the back of her left leg and in her left calf. She and her caregiver state that normally when she elevates her legs the swelling that she often gets reduces however and her left calf over the past few weeks the swelling has not been going down. Her calf feels tight and is painful with walking especially. She reports that the pain can be felt in the back of her thigh as well. And does feel sometimes as if it radiates up and down the back of her leg from her left low back. She has also had increased low back pain from her baseline over the last few weeks to months and her providers have increased her Suboxone for this. She states that she used to wear compression stockings on both sides but has not been using them for a few months as she has not had as much problem with leg swelling (until recently) She denies any fevers, chills, shortness of breath, chest pain upper back pain or any other symptoms or complaints. Related Data Home Medications Medication Instructions Recorded Confirmed acetaminophen 500 mg tablet 1,000 mg PO TID PRN 11/01/22 01/05/24 (Tylenol Extra Strength) bupropion HCl 200 mg tablet,12 hr PO DAILY 07/27/23 01/05/24 sustained-release dapagliflozin propanediol 10 mg 10 mg PO DAILY 10/17/23 01/05/24 tablet cefdinir 300 mg capsule 300 mg PO BID 11/16/23 01/05/24 amlodipine 5 mg tablet 5 mg PO DAILY 12/20/23 01/05/24 Previous Rx's Medication Instructions Recorded Disabled Parking Permit #1 ea 06/07/19 carvedilol 25 mg tablet (Coreg) See Rx Instructions PO BID #30 tabs 03/16/22 nitroglycerin 0.4 mg sublingual See Rx Instructions .Route 10/11/22 tablet .COMPLEX ##25 naloxone 0.4 mg/mL injection 0.4 mg IM Q2M PRN opioid reversal 11/22/22 syringe #3 mL apixaban 5 mg tablet (Eliquis) 5 mg PO BID #60 tabs 07/13/23 benzonatate 100 mg capsule 100 mg PO BID PRN cough #20 caps 10/03/23 duloxetine 60 mg capsule,delayed 60 mg PO DAILY #90 caps 10/03/23 release tiotropium 2.5 mcg-olodaterol 2.5 2 puff inhalation BID #4 grams 10/17/23 mcg/actuation mist for inhalation lidocaine 5 % topical patch 2 patch topical DAILY PRN pain #60 11/16/23 ea methocarbamol 750 mg tablet 750 mg PO Q8H PRN muscle spasms 11/16/23 #90 tabs zaleplon 10 mg capsule 10 mg PO BEDTIME PRN sleep #90 caps 12/20/23 dextroamphetamine-amphetamine 20 See Rx Instructions .Route 01/02/24 mg tablet .COMPLEX #60 tabs buprenorphine 12 mg-naloxone 3 mg 2 film buccal Q24H #60 ea 01/05/24 sublingual film (Suboxone) buprenorphine 5 mcg/hour weekly See Rx Instructions .Route 01/05/24 transdermal patch .COMPLEX #8 ea buprenorphine 8 mg-naloxone 2 mg 1 film buccal Q24H #30 ea 01/05/24 sublingual film (Suboxone) furosemide 40 mg tablet 40 mg PO QAM PRN edema #90 tabs 01/05/24 Allergies Allergy/AdvReac Type Severity Reaction Status Date / Time ipratropium [From Atrovent] Allergy Intermediate voice spasm Verified 12/29/23 14:43 ciprofloxacin AdvReac Intermediate FLUSHING, Verified 12/29/23 14:43 SWEATS, SOB citalopram [CITALOPRAM] AdvReac Intermediate Hallucinati Verified 12/29/23 14:43 ons cyclobenzaprine AdvReac Intermediate FLUSHING, Verified 12/29/23 14:43 SWEATS, SOB pregabalin AdvReac Intermediate FLUSHING/SW Verified 12/29/23 14:43 EATS/SOB Review of Systems <Kerri Gómez PA-C - Last Filed: 01/18/24 14:43> Review of Systems Narrative: See HPI Patient History <Kerri Gómez PA-C - Last Filed: 01/18/24 14:43> Medical History Severe 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, without psychotic features (07/05/16) Lumbar radiculopathy Hypertensive heart and chronic kidney disease with heart failure and stage 1 through stage 4 chronic kidney disease, or unspecified chronic kidney disease Cardiomegaly CKD (chronic kidney disease) ADD (attention deficit disorder) Peripheral vascular disease of extremity with claudication Kidney cysts Sacralization of lumbar vertebra Foraminal stenosis of lumbar region COVID SOB (shortness of breath) on exertion Class 1 obesity due to excess calories with body mass index (BMI) of 34.0 to 34.9 in adult Depression ADD (attention deficit disorder) Dysphagia Frequent falls Sciatica Loss of voice Dysphagia Encounter for Medicare annual wellness exam Screening for malignant neoplasm of colon COPD (chronic obstructive pulmonary disease) Right leg injury UTI (urinary tract infection) Bilirubin in urine Raynaud's disease without gangrene Peripheral neuropathy Venous stasis Rheumatoid arthritis Fibromyalgia Pneumonia Cystic fibrosis (~1956) Post traumatic stress disorder (PTSD) Depression Anxiety Arachnoiditis Stroke Restless leg syndrome Scoliosis Osteoporosis Degenerative joint disease (DJD) of lumbar spine Foot pain Fibromyalgia Chronic back pain Cervical spine disease Ankle pain Anemia Vertigo (~1968) Cataracts, bilateral Heavy menstrual period Abnormal Pap smear of cervix (~1956) Kidney stones GI bleeding GERD (gastroesophageal reflux disease) Skin cancer (~1996) Hypertension Atrial fibrillation Surgical History History of lumbar fusion History of neck surgery History of back surgery History of knee replacement (11/29/16) Status post bunionectomy (08/11/15) History of hip replacement S/P total abdominal hysterectomy and bilateral salpingo-oophorectomy Status post tonsillectomy and adenoidectomy Status post tubal ligation Status post cholecystectomy Status post appendectomy Social History marital status: Smoking Status: Former smoker alcohol intake: never substance use type: does not use Smoking Status: Former smoker alcohol intake frequency: 0-2 drinks per day Substance Use Type: does not use Exam <Kerri Gómez PA-C - Last Filed: 01/18/24 14:43> Narrative Exam Narrative: GENERAL: [79] year old patient appears stated age. Well-developed patient, in mild distress. HEAD: Atraumatic. Normocephalic. EYES: Pupils equal round and reactive. Extraocular motions intact. No scleral icterus. No injection or drainage. ENT: Nose without bleeding, purulent drainage. Airway patent. NECK: Trachea midline. Non tender CARDIOVASCULAR: Regular rate and rhythm without murmurs, gallops, or rubs. RESPIRATORY: Clear to auscultation. Breath sounds equal bilaterally. No wheezes, rales, or rhonchi. GASTROINTESTINAL: Abdomen soft, non-tender, nondistended. EXTREMITIES: Dorsalis pedis are equal present bilaterally. The left calf is visibly swollen as compared to the right, there is no appreciable erythema, no fluctuance. Tender to palpation posterior midline left calf and left thigh. Measured 10 cm below the tibial tuberosity the right calf is 37 cm in circumference and the left is 39 cm in circumference. Patient has increased left calf and leg pain with dorsiflexion of the left foot. Positive leg raise at 30? on the left and 45? on the right. No other edema or joint tenderness. BACK: Generalized sacral and lumbar tenderness bilaterally. Otherwise nontender without deformity or crepitance. No flank tenderness. NEURO: AOx3. SKIN: No rash or erythema of visible areas Initial Vital Signs Initial Vital Signs: Vital Signs Temperature 98.7 F 01/18/24 12:25 Pulse Rate 75 01/18/24 12:25 Respiratory Rate 18 01/18/24 12:25 Blood Pressure 168/66 H 01/18/24 12:25 Pulse Oximetry 97 01/18/24 12:25 Oxygen Delivery Method Room Air 01/18/24 12:25 <Tod Castellanos DO - Last Filed: 01/18/24 16:11> Initial Vital Signs Initial Vital Signs: Vital Signs Temperature 98.7 F 01/18/24 12:25 Pulse Rate 75 01/18/24 12:25 Respiratory Rate 18 01/18/24 12:25 Blood Pressure 168/66 H 01/18/24 12:25 Pulse Oximetry 97 01/18/24 12:25 Oxygen Delivery Method Room Air 01/18/24 12:25 Course <Kerri Gómez PA-C - Last Filed: 01/18/24 14:43> Orders Ordered: ED Orders 01/18/24 12:35 US periph venous low extrem lt Stat Vital Signs Vital signs: Vital Signs - 8 hr 01/18/24 12:25 01/18/24 13:50 Temperature 98.7 F Pulse Rate 75 72 Respiratory Rate 18 Blood Pressure 168/66 H 145/76 H Pulse Oximetry 97 99 Oxygen Delivery Method Room Air Room Air <Tod Castellanos DO - Last Filed: 01/18/24 16:11> Orders Ordered: ED Orders 01/18/24 12:35 perip venous low extrem lt Stat Vital Signs Vital signs: Vital Signs - 8 hr 01/18/24 12:25 01/18/24 13:50 Temperature 98.7 F Pulse Rate 75 72 Respiratory Rate 18 Blood Pressure 168/66 H 145/76 H Pulse Oximetry 97 99 Oxygen Delivery Method Room Air Room Air MDM - Extremity (Nontraumatic) <Kerri Gómez PA-C - Last Filed: 01/18/24 14:43> Differential Diagnosis Differential diagnosis: Likely lower extremity edema, deep vein thrombosis of lower extremity and other (sicatica) Medical Records Attestation: I reviewed the patient's medical records. Imaging Data US - DVT: My Impression: Agree with Radiology interpretation Radiologist's Impression: [place] [address] Ultrasound Report Signed Patient: Janet Paris MR#: [id number] : 1945 Acct:[id number] Age/Sex: 79 / F Date of Service: 01/18/24 Loc: ED Accession Number: [id number] Procedure: US periph venous low extrem lt Ordering Provider: Kerri Gómez P.A-C PROCEDURE: US PERIPH VENOUS LOW EXTREM LT INDICATIONS: swelling and pain x 2 weeks TECHNIQUE: Real-time imaging, as well as color and pulse Doppler interrogation, were performed of the lower extremity deep veins from the inguinal ligament to the popliteal fossa, with documentation of the visualized calf veins. COMPARISON: [facility], , US PERIPH VENOUS LOW EXTREM LT, 03/31/2019, 19:22. FINDINGS: The common femoral, femoral, popliteal, and the visualized calf veins are normally compressible, and free of intraluminal thrombus. Color and pulse Doppler demonstrate normal phasic intraluminal flow. There is normal augmentation response to distal compression maneuver. IMPRESSION: No findings of lower extremity deep venous thrombosis. Dictated by: Elvis Michele M.D. on 01/18/2024 at 12:14 Approved by: Elvis Michele M.D. on 01/18/2024 at 12:14 [facility] Narrative Medical decision making narrative: This 79-year-old woman who ambulates with a walker presents with concern for left-sided DVT if calf, with pertinent history of right-sided DVT, on Eliquis, also history of lumbar radiculopathy, lumbar fusion sciatica and left hip pain. Exam is somewhat concerning for DVT as her left calf is visibly larger than the right and 2 cm greater in circumference on exam however ultrasound returns negative for DVT. There were no exam findings suggesting infectious process, labs were not obtained given her isolated complaint and appropriate to evaluate with ultrasound imaging. Exam is not suggestive of fluid overload. Did nurses' association counselor her to begin wearing her compression stockings again as she has not been doing so for a few months sounds like; though they were effective for her in the past. Suspect that her leg pain symptoms and increased swelling are associated with her sciatica and radiculopathy. She is scheduled to see her vascular doctor next week. She and her caregiver counseled regarding monitoring for new or worsening symptoms and close follow-up with PCP. She is advised to continue all of her regular medications as prescribed. Return precautions provided, follow-up plan discussed, all questions answered. Discharge Plan Departure Patient Disposition: Home Clinical Impression: Pain of left calf, Swelling of calf, Sciatica Activity Restrictions/Additional Instructions: *You have been diagnosed with [sciatica, leg pain and swelling] *What to do: *Please continue to take your regular medications as directed. [ ] New medication prescriptions sent to your pharmacy: [ ] [ ] New medication written as a paper prescription [ X] No new medications given *Please follow up with your primary care provider in 2-3 days, call for an appointment. Let them know you were seen in the Emergency Department and that we ask that you be seen in follow up. We will electronically transmit a record of today's note if your PCP is in our system. You came in today with concern for possible DVT in her left calf. We did an ultrasound to evaluate for this and it was negative thankfully. I suspect that your left calf pain and swelling recently maybe associated with your chronic back problems and worsening of your sciatica. If you do not already wear compression stockings I would encourage you to wear compression stockings on both legs certainly on the left leg for the near term, and follow up closely with her pain doctor and primary care provider regarding further evaluation if you continue to have left leg pain and swelling. We did not obtain blood labs today, as with unilateral leg swelling it is less likely to be related to something like a heart problem. But if you do develop new or worsening symptoms please make sure you seek re-evaluation. I hope things improve for you soon and you are feeling better. Continue your regular medications as prescribed. *If you do not have a primary care provider please contact the [facility] Resource line at [phone]. They will ask some questions about your medical history and help get you set up with a doctor in the community. *Return to Emergency Department if you should have any new, worsening or concerning symptoms, such as [fever greater than 101 F, shaking chills, worsening pain, persistent vomiting or other bothersome symptoms] Prescriptions: No Action benzonatate 100 mg capsule 100 mg PO BID PRN (Reason: cough) Qty: 20 0RF dapagliflozin propanediol 10 mg tablet 10 mg PO DAILY tiotropium-olodaterol 2.5-2.5 mcg/actuation mist 2 puff inhalation BID Qty: 4 0RF (DME) Disabled Parking Permit Qty: 1 0RF Rx Instructions: I find this person to be disabled nitroglycerin 0.4 mg tablet, sublingual See Rx Instructions .ROUTE .COMPLEX Qty: 25 1RF Dose Instruction: Dissolve 1 tablet under tongue every 5-15 minutes up to 3 times for chest pain. If persists, call 911. Rx Instructions: Dissolve 1 tablet under tongue every 5-15 minutes up to 3 times for chest pain. If persists, call 911. Eliquis 5 mg tablet 5 mg PO BID Qty: 60 11RF Rx Instructions: Take 1 tab twice per day for anticoagulation duloxetine 60 mg capsule,delayed release(DR/EC) 60 mg PO DAILY Qty: 90 3RF Rx Instructions: Take 1 cap at bedtime daily for depression dextroamphetamine-amphetamine 20 mg tablet See Rx Instructions .ROUTE .COMPLEX Qty: 60 0RF Rx Instructions: Take 1 tab by mouth twice per day, 4-6 hours apart.; naloxone 0.4 mg/mL syringe 0.4 mg IM Q2M PRN (Reason: opioid reversal) Qty: 3 3RF Rx Instructions: NTExceed 10 mg total dose/episode cefdinir 300 mg capsule 300 mg PO BID lidocaine 5 % adhesive patch,medicated 2 patch topical DAILY PRN (Reason: pain) Qty: 60 3RF Rx Instructions: leave on most painful areas for up to 12 hrs methocarbamol 750 mg tablet 750 mg PO Q8H PRN (Reason: muscle spasms) Qty: 90 4RF amlodipine 5 mg tablet 5 mg PO DAILY zaleplon 10 mg capsule 10 mg PO BEDTIME PRN (Reason: sleep) Qty: 90 3RF Rx Instructions: must avoid high-fat meal/food immediately before taking dose carvedilol [Coreg] 25 mg tablet See Rx Instructions PO BID Qty: 30 11RF Rx Instructions: take 0.5 tablet (12.5 mg total) PO BID PO twice a day; must administer with a meal/food acetaminophen [Tylenol Extra Strength] 500 mg tablet 1,000 mg PO TID PRN Rx Instructions: Not to exceed 3000mg/24 hours bupropion HCl 200 mg tablet sustained-release 12 hr PO DAILY furosemide 40 mg tablet 40 mg PO QAM PRN (Reason: edema) Qty: 90 0RF buprenorphine 5 mcg/hour patch weekly See Rx Instructions .ROUTE .COMPLEX Qty: 8 1RF Rx Instructions: Apply 1-2 patches every 7 days for chronic pain; buprenorphine-naloxone [Suboxone] 12-3 mg film 2 film buccal Q24H Qty: 60 2RF Rx Instructions: place 2 strip/tab under (each) side of tongue daily for pain relief buprenorphine-naloxone [Suboxone] 8-2 mg film 1 film buccal Q24H Qty: 30 3RF Rx Instructions: Take 1 film daily in addition to (2) of the 12/4mg films (total 32mg buprenorphine) Referrals: Yvonne Calabrese ARNP [Primary Care Provider] - Stand Alone Forms: Patient Portal/API ED Sign-out <Tod Castellanos DO - Last Filed: 01/18/24 16:11> Cosign ED Attending Cosignature Attestation: Dr Castellanos Co-Sign Statement: I was available for consultation during this patient's emergency department visit. This chart is signed by myself for administrative purposes only. I did not have direct contact with this patient during this visit. They were seen independently by the APC.
[2024-01-18 13:50] VITALS: BP 145/76; PULSE 72; O2SAT 99
== END 2024-01-18 13:55 | disposition home or self-care (01) ==
PROVIDERS: Emergency Provider Student in an Organized Health Care Education/Training Program; Family Provider Nurse Practitioner; PCP Nurse Practitioner
DX: M54.32 Sciatica, left side (principal); M79.662 Pain in left lower leg; M79.89 Other specified soft tissue disorders
CPT/HCPCS: 93971; 99283

== ENCOUNTER → 2024-02-26 16:35 | Outpatient (CLI) | payer MEDICARE, MEDICAID, SELFPAY | PROVIDERS: Family Provider Nurse Practitioner; PCP Nurse Practitioner; Visit Provider Nurse Practitioner Family | DX: R10.9 Unspecified abdominal pain (principal) | CPT/HCPCS: 87086 ==

== ENCOUNTER → 2024-03-07 17:10 | Outpatient (CLI) | payer MEDICARE, MEDICAID, SELFPAY | PROVIDERS: Family Provider Nurse Practitioner; PCP Nurse Practitioner; Referring Provider Urology; Visit Provider Urology | DX: R39.15 Urgency of urination (principal) | CPT/HCPCS: 87086 ==

== ENCOUNTER → 2024-03-28 14:04 | Outpatient (CLI) | payer MEDICARE, MEDICAID, SELFPAY | PROVIDERS: Family Provider Nurse Practitioner; PCP Nurse Practitioner; Referring Provider Student in an Organized Health Care Education/Training Program; Visit Provider Student in an Organized Health Care Education/Training Program | DX: R30.0 Dysuria (principal); N89.8 Other specified noninflammatory disorders of vagina | CPT/HCPCS: 87086; 87210 ==

== ENCOUNTER → 2024-04-11 13:44 | Outpatient (CLI) | payer MEDICARE, MEDICAID, SELFPAY ==
[2024-04-11 14:40] LABS: Add Manual Diff / Slide Review NO; Basophils Absolute Auto 0 /uL (0-100); Basophils Percent Auto 0.6 % (0-2); Eosinophils Absolute Auto 300 /uL (0-450); Hemoglobin 11.5 g/dL (12.0-16.0); Lymphocytes Absolute Auto 1100 /uL (1100-4500); Mean Corpuscular HGB Conc 32.8 % (30-36); Mean Corpuscular Volume 85.6 fL (80-100); Monocytes Absolute Auto 600 /uL (0-900); Monocytes Percent Auto 7.7 % (3-14); Neutrophils Absolute Auto 5600 /uL (1500-7000); Neutrophils Percent Auto 73.7 % (50-75); Platelet Count 235 X10^3/uL (150-400); Red Blood Cell Count 4.08 X10^6/uL (4.0-5.2); Red Cell Distribution Width 14.7 % (11.6-14.8); White Blood Cell Count 7.5 X10^3/uL (4.5-11.0)
[2024-04-11 15:10] LABS: Alanine Aminotransferase 35 IU/L (<35); Albumin 4.4 g/dL (3.5-5.0); Albumin Globulin Ratio 1.3 (1.0-2.8); Alkaline Phosphatase 107 U/L (38-126); Aspartate Aminotransferase 30 IU/L (14-36); BUN Creatinine Ratio 17.2 (6-22); Bilirubin Total 0.5 mg/dL (0.2-1.3); Blood Urea Nitrogen 29 mg/dL (7-17); Carbon Dioxide 25 mmol/L (22-32); Chloride 108 mmol/L (98-107); Estimated Glomerular Filt Rate 31 mL/min (>60); Globulin 3.3 g/dL (1.7-4.1); Glucose 98 mg/dL (80-110); HEMOLYSIS < 15 (0-50); Potassium 5.1 mmol/L (3.4-5.1); Sodium 142 mmol/L (137-145); Total Protein 7.7 g/dL (6.3-8.2)
[2024-04-11 15:20] LABS: HEMOLYSIS < 15 (0-50); Iron 98 ug/dL (37-170)
[2024-04-11 15:30] LABS: Percent Iron Saturation 33 % (15-50); Total Iron Binding Capacity 293 ug/dL (265-497); Transferrin 243 mg/dL (206-381)
[2024-04-11 15:37] LABS: Free T4, Direct Thyroxine 0.98 ng/dL (0.78-2.19)
[2024-04-11 15:51] LABS: Thyroid Stimulating Hormone 2.42 uIU/mL (0.47-4.68)
[2024-04-11 16:10] LABS: Vitamin B12 847 pg/mL (239-931)
== END ==
PROVIDERS: Family Provider Nurse Practitioner; PCP Nurse Practitioner; Referring Provider Nurse Practitioner; Visit Provider Nurse Practitioner
DX: Z01.818 Encounter for other preprocedural examination (principal); E84.9 Cystic fibrosis, unspecified; Z79.01 Long term (current) use of anticoagulants
CPT/HCPCS: 36415; 80053; 82607; 83540; 83550; 84439; 84443; 85025

== ENCOUNTER → 2024-04-19 14:26 | Outpatient (CLI) | payer MEDICARE, MEDICAID, SELFPAY ==
[2024-04-19 15:10] LABS: Hematocrit 34.1 % (36-46); Hemoglobin 11.4 g/dL (12.0-16.0)
[2024-04-19 15:39] LABS: Albumin 4.1 g/dL (3.5-5.0); BUN Creatinine Ratio 16.9 (6-22); Blood Urea Nitrogen 24 mg/dL (7-17); Calcium 9.6 mg/dL (8.4-10.2); Carbon Dioxide 22 mmol/L (22-32); Chloride 108 mmol/L (98-107); Estimated Glomerular Filt Rate 38 mL/min (>60); Glucose 99 mg/dL (80-110); HEMOLYSIS < 15 (0-50); Phosphorous 3.2 mg/dL (2.8-4.1); Sodium 140 mmol/L (137-145)
[2024-04-19 16:25] LABS: Microalbumin Urine Random 8.9 mg/dL (0-1.6)
[2024-04-19 16:26] LABS: Creatinine Urine Random 101.81 mg/dL; Protein (Total) Urine Random 24 mg/dL (0-12); Protein Creatinine Ratio Urine 0.23 GRAM/24H
[2024-04-20 12:14] LABS: Albumin 4.1 g/dL (3.5-5.0)
== END ==
LOC: LAB 14:30
PROVIDERS: Family Provider Nurse Practitioner; PCP Nurse Practitioner; Referring Provider Internal Medicine Nephrology; Visit Provider Internal Medicine Nephrology
DX: N18.32 Chronic kidney disease, stage 3b (principal); R80.9 Proteinuria, unspecified
CPT/HCPCS: 36415; 80069; 82040; 82043; 82306; 82570; 83970; 84156; 85014; 85018

== ENCOUNTER 2024-05-09 10:55 | Inpatient (IN) | payer MEDICARE, MEDICAID, SELFPAY ==
[2024-05-09] VITALS (20 sets, daily range): BP systolic 129–165; BP diastolic 63–88; PULSE 60–71; RESP 15–31; TEMP 35.8–37.1; O2SAT 90–96; BMI 29.8
--- NOTE | 2024-05-09 11:08 | EKG_ITS ---
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
--- NOTE | 2024-05-09 11:10 | DI.MRI.S_ITS ---
PROCEDURE: MR HEAD/BRAIN WO CON INDICATIONS: cannot get words out TECHNIQUE: Non-contrast axial T1 spin echo, axial T2 fast spin echo, sagittal and axial FLAIR, coronal T2 fast spin echo, axial gradient echo, axial diffusion and ADC through the brain. COMPARISON: [facility], CT, CT HEAD/BRAIN WO CON, 05/09/2024, 11:18. FINDINGS: Image quality: Excellent. CSF spaces: Ventricles appear symmetric in size and shape. Basal cisterns are patent. No extra-axial fluid collections. Brain: No intracranial bleeds or mass effects. There is cerebral volume loss for age. There are moderate to severe periventricular and deep white matter chronic small vessel ischemic changes. Brainstem appears normal. Small focal vague area of restricted water diffusion in the posterior medial left temporal lobe consistent with acute infarct with subtle cytotoxic edema. Reference axial diffusion image 59 of series 11 and axial FLAIR image 9 of series 7 and sagittal T2 FLAIR image 18 of series 5. No chronic ischemic insults. Normal intravascular flow voids are present. Skull and face: Calvarial bone marrow is normal in signal. Orbits are normal. Sinuses: Sinuses and mastoids are clear. IMPRESSION: 1. Subtle acute small focal infarct in the posterior medial left temporal lobe. 2. Age-related volume loss and moderate to severe small vessel ischemic change. Dictated by: Andi Segura M.D. on 05/09/2024 at 15:58 Approved by: Andi Segura M.D. on 05/09/2024 at 16:05
--- NOTE | 2024-05-09 11:12 | DI.CT.S_ITS ---
PROCEDURE: CT HEAD/BRAIN WO CON INDICATIONS: cannot get words out TECHNIQUE: Noncontrast 4.5 mm thick angled axial sections acquired from the foramen magnum to the vertex, with coronal and sagittal reformats. For radiation dose reduction, the following was used: automated exposure control, adjustment of mA and/or kV according to patient size. COMPARISON: None. FINDINGS: Image quality: Diagnostic. CSF spaces: Basal cisterns are patent. No extra-axial fluid collections. Ventricles are normal in size and shape. Brain: No midline shift. No intracranial masses or hemorrhage. Young-white matter interface is normal. Basal ganglia calcifications. Leukoaraiosis, commonly caused by small vessel ischemic disease. Age related volume loss. Skull and face: Calvarium and visualized facial bones are intact, without suspicious lesions. Sinuses: Visualized sinuses and mastoids are clear. IMPRESSION: No acute intracranial pathology. Dictated by: Eduar Villarreal M.D. on 05/09/2024 at 12:55 Approved by: Eduar Villarreal M.D. on 05/09/2024 at 12:56
--- NOTE | 2024-05-09 11:13 | DI.CT.S_ITS ---
PROCEDURE: CT ANGIO HEAD AND NECK INDICATIONS: cannot get words out TECHNIQUE: After the administration of intravenous contrast, 1 mm thick sections acquired from the aortic arch through the [place]. 3-dimensional ohobfdc-rdneorevy-dqxbtubawk (MIP) and/or volume rendering reformats were acquired of the central intracranial vasculature and neck separately. For radiation dose reduction, the following was used: automated exposure control, adjustment of mA and/or kV according to patient size. COMPARISON: [facility], CT, CT LOW DOSE LUNG CA SCREENING, 04/28/2022, 7:42. FINDINGS: Image quality: Diagnostic. BRAIN: No significant change since same day CT. HEAD CT ANGIOGRAPHY: Anterior circulation: Intracranial internal carotid arteries are normal in size and flow. The flow within the paired anterior cerebral arteries is normal and symmetric. The flow within the middle cerebral arteries is normal and symmetric. The anterior communicating artery is seen. No aneurysms are seen. Posterior circulation: Visualized portions of the vertebral arteries demonstrate normal caliber, and join to form a normal appearing basilar artery. Flow within the posterior cerebral arteries is normal and symmetric. No aneurysms are seen. NECK CT ANGIOGRAPHY: Carotid system: The great vessels demonstrate a conventional anatomy as they arise from the aortic arch. The origins of the common carotid arteries appear patent. The common carotid arteries demonstrate normal caliber and courses. The bifurcation regions are both widely patent. The internal carotid arteries demonstrate normal calibers and courses. Posterior circulation: The origins of the vertebral arteries both appear widely patent. The more superior extracranial portions of both vertebral arteries also demonstrate normal courses and calibers. They join to form a normal appearing basilar artery. Soft tissues: Visualized neck soft tissues demonstrate no suspicious abnormalities. Interval development of a solid component within a part solid nodule in the left upper lobe measuring 9 x 9 millimeter. Bones: No suspicious bony lesions. Visualized cervical spine appears normally aligned. IMPRESSION: No significant intracranial arterial abnormality is seen. No significant abnormality is seen within the arteries of the neck. Interval development a small solid component in a part solid nodule in the left upper lobe. Recommend six-month follow-up per consensus guidelines. Any quantitative measurements of stenosis were performed using NASCET criteria. Dictated by: Eduar Villarreal M.D. on 05/09/2024 at 12:56 Approved by: Eduar Villarreal M.D. on 05/09/2024 at 13:01
[2024-05-09 11:28] LABS: Add Manual Diff / Slide Review NO; Basophils Absolute Auto 0 /uL (0-100); Basophils Percent Auto 0.7 % (0-2); Eosinophils Absolute Auto 200 /uL (0-450); Eosinophils Percent Auto 3.7 % (2-4); Hematocrit 34.8 % (36-46); Hemoglobin 11.7 g/dL (12.0-16.0); Lymphocytes Absolute Auto 1100 /uL (1100-4500); Lymphocytes Percent Auto 16.7 % (25-40); Mean Corpuscular HGB Conc 33.6 % (30-36); Mean Corpuscular Hemoglobin 28.6 PG (26-34); Mean Corpuscular Volume 85.1 fL (80-100); Monocytes Absolute Auto 600 /uL (0-900); Monocytes Percent Auto 8.8 % (3-14); Neutrophils Absolute Auto 4500 /uL (1500-7000); Neutrophils Percent Auto 70.1 % (50-75); Platelet Count 222 X10^3/uL (150-400); Red Cell Distribution Width 14.5 % (11.6-14.8); White Blood Cell Count 6.4 X10^3/uL (4.5-11.0)
[2024-05-09 11:42] LABS: INR 1.3 (0.9-1.3); Prothrombin Time 14.4 SECONDS (9.4-12.5)
[2024-05-09 11:45] LABS: PTT Partial Thromboplastin Tim 39 SECONDS (25.1-36.5)
--- NOTE | 2024-05-09 11:50 | ED_ITS ---
HPI - Neuro Symptoms/Deficit General Chief Complaint: Neuro Symptoms/Deficit Stated Complaint: poss stroke Time Seen by Provider: 05/09/24 11:07 Source: patient Mode of arrival: Ambulatory History of Present Illness HPI Narrative: 79-year-old female with 5 days duration of intermittent inability to get her words out. No history of TIA or stroke. Denies drug or alcohol use. Chart history of atrial fibrillation, chronic anticoagulation Eliquis, denies recent medication changes, denies recent doses of medications. She did not have any injury or trauma. No headache, no neck pain, no visual disturbances. No trouble swallowing. She feels like she can not get her words out intermittently but it is not constant for the last 4 days, seemed somewhat worse yesterday, decided to come today for further evaluation due to persistence of symptoms. No weakness to face arm or leg. No numbness to face arm or leg. She denies fevers or chills. She denies painful or frequent urination. She denies chest pain or shortness of breath. She denies headache photophobia. On Anticoagulants: Yes (eliquis) Related Data Home Medications Medication Instructions Recorded Confirmed acetaminophen 500 mg tablet 1,000 mg PO TID PRN Pain (Scale 11/01/22 05/09/24 (Tylenol Extra Strength) Score 1-3) dapagliflozin propanediol 10 mg 10 mg PO DAILY 10/17/23 05/09/24 tablet amlodipine 5 mg tablet 5 mg PO DAILY 12/20/23 05/09/24 carvedilol 12.5 mg tablet 12.5 mg PO BID 03/28/24 05/09/24 furosemide 40 mg tablet 40 mg PO QAM PRN edema 05/09/24 05/09/24 tirzepatide 7.5 mg/0.5 mL 7.5 mg SUBCUT QWEEK 05/09/24 05/09/24 subcutaneous pen injector (Grzegorz) Previous Rx's Medication Instructions Recorded Disabled Parking Permit #1 ea 06/07/19 nitroglycerin 0.4 mg sublingual See Rx Instructions .Route 10/11/22 tablet .COMPLEX ##25 naloxone 0.4 mg/mL injection 0.4 mg IM Q2M PRN opioid reversal 11/22/22 syringe #3 mL duloxetine 60 mg capsule,delayed 60 mg PO DAILY #90 caps 10/03/23 release tiotropium 2.5 mcg-olodaterol 2.5 2 puff inhalation BID #4 grams 10/17/23 mcg/actuation mist for inhalation lidocaine 5 % topical patch 2 patch topical DAILY PRN pain #60 11/16/23 ea methocarbamol 750 mg tablet 750 mg PO Q8H PRN muscle spasms 11/16/23 #90 tabs dextroamphetamine-amphetamine 20 See Rx Instructions .Route 02/06/24 mg tablet .COMPLEX #60 tabs spironolactone 25 mg tablet 25 mg PO DAILY #90 tabs 02/08/24 bupropion HCl 200 mg tablet,12 hr 200 mg PO DAILY #90 tabs 02/16/24 sustained-release Circulation and pain relief are See Rx Instructions .Route 03/14/24 compression foot and calf boot .COMPLEX #2 ea Disabled Parking Permit See Rx Instructions .Route 04/02/24 .COMPLEX #1 unit tirzepatide 7.5 mg/0.5 mL 7.5 mg (0.5 mL) SUBCUT QWEEK #2 mL 04/16/24 subcutaneous pen injector zaleplon 10 mg capsule 20 mg (2 x 10 mg) PO BEDTIME PRN 04/16/24 sleep #180 caps buprenorphine 12 mg-naloxone 3 mg 2 film buccal Q24H #60 ea 05/03/24 sublingual film (Suboxone) apixaban 5 mg tablet (Eliquis) 5 mg PO BID #200 tabs 05/09/24 Allergies Allergy/AdvReac Type Severity Reaction Status Date / Time ipratropium [From Atrovent] Allergy Intermediate voice spasm Verified 05/09/24 11:06 zolpidem [From Ambien] AdvReac Severe sleep Verified 05/09/24 11:06 walking, eating ciprofloxacin AdvReac Intermediate FLUSHING, Verified 05/09/24 11:06 SWEATS, SOB citalopram [CITALOPRAM] AdvReac Intermediate Hallucinati Verified 05/09/24 11:06 ons cyclobenzaprine AdvReac Intermediate FLUSHING, Verified 05/09/24 11:06 SWEATS, SOB pregabalin AdvReac Intermediate FLUSHING/SW Verified 05/09/24 11:06 EATS/SOB Review of Systems Review of Systems Narrative: see HPI Hematologic/Lymphatic On Anticoagulants: Yes (eliquis) Patient History Medical History (Updated 05/09/24 @ 16:26 by Geovany Brewster MD) Insomnia At high risk for cardiovascular disease Hyperlipidemia Severe 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, without psychotic features (07/05/16) Lumbar radiculopathy Hypertensive heart and chronic kidney disease with heart failure and stage 1 through stage 4 chronic kidney disease, or unspecified chronic kidney disease Cardiomegaly CKD (chronic kidney disease) ADD (attention deficit disorder) Peripheral vascular disease of extremity with claudication Kidney cysts Sacralization of lumbar vertebra Foraminal stenosis of lumbar region COVID SOB (shortness of breath) on exertion Class 1 obesity due to excess calories with body mass index (BMI) of 34.0 to 34.9 in adult Depression ADD (attention deficit disorder) Dysphagia Frequent falls Sciatica Loss of voice Dysphagia Encounter for Medicare annual wellness exam Screening for malignant neoplasm of colon COPD (chronic obstructive pulmonary disease) Right leg injury UTI (urinary tract infection) Bilirubin in urine Raynaud's disease without gangrene Peripheral neuropathy Venous stasis Rheumatoid arthritis Fibromyalgia Pneumonia Cystic fibrosis (~1956) Post traumatic stress disorder (PTSD) Anxiety Arachnoiditis Stroke Restless leg syndrome Scoliosis Osteoporosis Degenerative joint disease (DJD) of lumbar spine Foot pain Fibromyalgia Chronic back pain Cervical spine disease Ankle pain Anemia Vertigo (~1968) Cataracts, bilateral Heavy menstrual period Abnormal Pap smear of cervix (~1956) Kidney stones GI bleeding GERD (gastroesophageal reflux disease) Skin cancer (~1996) Hypertension Atrial fibrillation Surgical History History of lumbar fusion History of neck surgery History of back surgery History of knee replacement (11/29/16) Status post bunionectomy (08/11/15) History of hip replacement S/P total abdominal hysterectomy and bilateral salpingo-oophorectomy Status post tonsillectomy and adenoidectomy Status post tubal ligation Status post cholecystectomy Status post appendectomy Social History marital status: household members: spouse, family and caregiver Smoking Status: Former smoker alcohol intake: never substance use type: does not use Smoking Status: Former smoker alcohol intake frequency: 0-2 drinks per day Substance Use Type: does not use Exam Narrative Exam Narrative: GENERAL: Well-developed patient, in mild distress. HEAD: Atraumatic. Normocephalic. EYES: Pupils equal round and reactive. Extraocular motions intact. No scleral icterus. No injection or drainage. ENT: Nose without bleeding, purulent drainage. Throat without erythema, tonsillar hypertrophy or exudate. Airway patent. NECK: Trachea midline. Non tender CARDIOVASCULAR: Regular rate and rhythm without murmurs, gallops, or rubs. RESPIRATORY: Clear to auscultation. Breath sounds equal bilaterally. No wheezes, rales, or rhonchi. GASTROINTESTINAL: Abdomen soft, non-tender, nondistended. EXTREMITIES: No edema or joint tenderness. BACK: Nontender without deformity or crepitance. No flank tenderness. NEURO: AOx3. Clear speech to my examination, although nursing did notice the patient had difficulty reading simple words, unable to get the words out. For me she seemed to be able to repeat words, recalled her name, oriented to time, had no difficulty getting words out or describing recent HPI symptoms. Motor 5/5 upper extremities, and lower extremities. [id number] testing normal. Light touch sensation intact to face arms and legs. SKIN: No rash or erythema of visible areas Initial Vital Signs Initial Vital Signs: Vital Signs Temperature 97.4 F L 05/09/24 10:56 Pulse Rate 66 05/09/24 10:56 Respiratory Rate 15 05/09/24 10:56 Blood Pressure 141/85 H 05/09/24 10:56 Pulse Oximetry 95 05/09/24 10:56 Oxygen Delivery Method Room Air 05/09/24 10:56 Course Orders Ordered: ED Orders 05/09/24 11:08 EKG-12 Lead Stat 05/09/24 11:10 MR head/brain wo con Stat 05/09/24 11:12 CT head/brain wo con Stat 05/09/24 11:13 CT angio head and neck Stat 05/09/24 11:15 Complete Blood Count AUTO DIFF Stat Comprehensive Metabolic Panel Stat Ethanol (ETOH) Stat PTT Partial Thromboplastin Zackary Stat Prothrombin Time INR Stat Troponin & CK Cardiac Panel Stat 05/09/24 13:22 Urinalysis and Microscopic Stat Urine Culture Stat Urine Drug Screen, Rapid Stat 05/09/24 14:39 Blood Culture Stat 05/09/24 15:20 COVID19 -Nasal RAPID Stat Acetaminophen (Acetaminophen 325 Mg Tablet) 650 mg PO Q6H PRN PRN Reason: Fever/Mild Pain (1-3) Naloxone HCl (Naloxone 0.4 Mg/Ml Vial) 0.2 mg IV Q2MIN PRN PRN Reason: Opiate Reversal Vital Signs Vital signs: Vital Signs - 8 hr 05/09/24 11:30 05/09/24 11:30 05/09/24 12:00 Pulse Rate 69 63 Respiratory Rate 27 H 31 H Blood Pressure 151/83 H Pulse Oximetry 95 93 Oxygen Delivery Method 05/09/24 12:10 05/09/24 12:10 05/09/24 12:30 Pulse Rate 67 60 Respiratory Rate 19 23 Blood Pressure 165/77 H Pulse Oximetry 95 93 Oxygen Delivery Method 05/09/24 12:31 05/09/24 12:31 05/09/24 13:00 Pulse Rate 61 69 Respiratory Rate 21 31 H Blood Pressure 129/63 Pulse Oximetry 93 96 Oxygen Delivery Method 05/09/24 13:01 05/09/24 13:01 05/09/24 13:30 Pulse Rate 69 Respiratory Rate 30 H Blood Pressure 163/71 H 143/65 H Pulse Oximetry 96 Oxygen Delivery Method 05/09/24 13:30 05/09/24 14:12 05/09/24 14:30 Pulse Rate 68 67 71 Respiratory Rate 19 Blood Pressure Pulse Oximetry 96 96 Oxygen Delivery Method Room Air 05/09/24 14:40 05/09/24 14:40 05/09/24 15:00 Pulse Rate 71 Respiratory Rate Blood Pressure 144/66 H 145/71 H Pulse Oximetry 91 Oxygen Delivery Method 05/09/24 15:00 05/09/24 15:30 05/09/24 15:30 Pulse Rate 68 71 Respiratory Rate 24 24 Blood Pressure 145/66 H Pulse Oximetry 96 94 Oxygen Delivery Method 05/09/24 16:00 05/09/24 16:00 Pulse Rate 71 Respiratory Rate 24 Blood Pressure 153/88 H Pulse Oximetry 96 Oxygen Delivery Method MDM - Neuro Symptoms/Deficit Lab Data Attestation: I reviewed the patient's lab results. 05/09/24 11:15 05/09/24 11:15 Labs: Lab Results 05/09/24 05/09/24 05/09/24 Range/Units 11:15 13:22 13:22 WBC 6.4 (4.5-11.0) X10^3/uL RBC 4.10 (4.0-5.2) X10^6/uL Hgb 11.7 L (12.0-16.0) g/dL Hct 34.8 L (36-46) % MCV 85.1 (80-100) fL MCH 28.6 (26-34) PG MCHC 33.6 (30-36) % RDW 14.5 (11.6-14.8) % Plt Count 222 (150-400) X10^3/uL Neut % (Auto) 70.1 (50-75) % Lymph % (Auto) 16.7 L (25-40) % [place] % (Auto) 8.8 (3-14) % Eos % (Auto) 3.7 (2-4) % Baso % (Auto) 0.7 (0-2) % Neut # (Auto) 4500 (0771-3478) /uL Lymph # (Auto) 1100 (4521-1387) /uL [place] # (Auto) 600 (0-900) /uL Eos # (Auto) 200 (0-450) /uL Baso # (Auto) 0 (0-100) /uL PT 14.4 H (9.4-12.5) SECONDS INR 1.3 (0.9-1.3) APTT 39 H (25.1-36.5) SECONDS Sodium 138 (137-145) mmol/L Potassium 4.0 (3.4-5.1) mmol/L Chloride 105 (98-107) mmol/L Carbon Dioxide 26 (22-32) mmol/L BUN 23 H (7-17) mg/dL Creatinine 1.44 H (0.52-1.04) mg/dL Estimated GFR 37 L (>60) mL/min BUN/Creatinine Ratio 16.0 (6-22) Glucose 99 (80-110) mg/dL Calcium 9.6 (8.4-10.2) mg/dL Total Bilirubin 0.7 (0.2-1.3) mg/dL AST 31 (14-36) IU/L ALT 25 (<35) IU/L Alkaline Phosphatase 86 (38-126) U/L Total Creatine Kinase 73 (30-135) U/L Troponin I < 0.012 (0.01-0.034) ng/mL Total Protein 7.5 (6.3-8.2) g/dL Albumin 4.1 (3.5-5.0) g/dL Globulin 3.4 (1.7-4.1) g/dL Albumin/Globulin Ratio 1.2 (1.0-2.8) Urine Color Yellow Urine Appearance Cloudy Urine pH 6.0 M (4.5-8.0) Ur Specific [place] 1.010 (1.000-1.035) Urine Protein Negative (Negative) Urine Glucose (UA) Negative (Negative) g/dL Urine Ketones Negative (NEGATIVE) Urine Occult Blood Negative (Negative) Urine Nitrate Positive H (Negative) Urine Bilirubin Negative (NEGATIVE) Urine Urobilinogen 0.2 (0.2) E.U./dL Ur Leukocyte Esterase 1+ H (NEGATIVE) Urine RBC 1-5/hpf (0-5/HPF) Urine WBC 1-5/hpf (0-5/HPF) Ur Squamous Epith Cells 1-5 /hpf (0-5/HPF) Urine Bacteria Many (>30) H (None) Ur Culture Indicated? Specimen cultured Vol Urine Centrifuged 10ml (spun) U Opiates 300ng/mL cut Negative (Negative) Ur Oxycodone Screen Positive H (Negative) Urine Methadone Screen Negative (Negative) Ur Barbiturates Screen Negative (Negative) U Tricyclic Antidepress Negative (Negative) Ur Phencyclidine Scrn Negative (Negative) Ur Amphetamines Screen Positive H (Negative) U Methamphetamines Scrn Negative (Negative) Ur MDMA Scrn (Ecstasy) Negative (Negative) U Benzodiazepines Scrn Negative (Negative) Urine Cocaine Screen Negative (Negative) U Marijuana (THC) Screen Negative (Negative) Urine Specific [place] Normal (Normal) Ethyl Alcohol < 10 ( - 10) mg/dL Ur Creatinine Normal (Normal) SARS-CoV-2 (PCR) (Negative) 05/09/24 Range/Units 15:20 WBC (4.5-11.0) X10^3/uL RBC (4.0-5.2) X10^6/uL Hgb (12.0-16.0) g/dL Hct (36-46) % MCV (80-100) fL MCH (26-34) PG MCHC (30-36) % RDW (11.6-14.8) % Plt Count (150-400) X10^3/uL Neut % (Auto) (50-75) % Lymph % (Auto) (25-40) % [place] % (Auto) (3-14) % Eos % (Auto) (2-4) % Baso % (Auto) (0-2) % Neut # (Auto) (0722-2529) /uL Lymph # (Auto) (2862-8015) /uL [place] # (Auto) (0-900) /uL Eos # (Auto) (0-450) /uL Baso # (Auto) (0-100) /uL PT (9.4-12.5) SECONDS INR (0.9-1.3) APTT (25.1-36.5) SECONDS Sodium (137-145) mmol/L Potassium (3.4-5.1) mmol/L Chloride (98-107) mmol/L Carbon Dioxide (22-32) mmol/L BUN (7-17) mg/dL Creatinine (0.52-1.04) mg/dL Estimated GFR (>60) mL/min BUN/Creatinine Ratio (6-22) Glucose (80-110) mg/dL Calcium (8.4-10.2) mg/dL Total Bilirubin (0.2-1.3) mg/dL AST (14-36) IU/L ALT (<35) IU/L Alkaline Phosphatase (38-126) U/L Total Creatine Kinase (30-135) U/L Troponin I (0.01-0.034) ng/mL Total Protein (6.3-8.2) g/dL Albumin (3.5-5.0) g/dL Globulin (1.7-4.1) g/dL Albumin/Globulin Ratio (1.0-2.8) Urine Color Urine Appearance Urine pH (4.5-8.0) Ur Specific [place] (1.000-1.035) Urine Protein (Negative) Urine Glucose (UA) (Negative) g/dL Urine Ketones (NEGATIVE) Urine Occult Blood (Negative) Urine Nitrate (Negative) Urine Bilirubin (NEGATIVE) Urine Urobilinogen (0.2) E.U./dL Ur Leukocyte Esterase (NEGATIVE) Urine RBC (0-5/HPF) Urine WBC (0-5/HPF) Ur Squamous Epith Cells (0-5/HPF) Urine Bacteria (None) Ur Culture Indicated? Vol Urine Centrifuged U Opiates 300ng/mL cut (Negative) Ur Oxycodone Screen (Negative) Urine Methadone Screen (Negative) Ur Barbiturates Screen (Negative) U Tricyclic Antidepress (Negative) Ur Phencyclidine Scrn (Negative) Ur Amphetamines Screen (Negative) U Methamphetamines Scrn (Negative) Ur MDMA Scrn (Ecstasy) (Negative) U Benzodiazepines Scrn (Negative) Urine Cocaine Screen (Negative) U Marijuana (THC) Screen (Negative) Urine Specific [place] (Normal) Ethyl Alcohol ( - 10) mg/dL Ur Creatinine (Normal) SARS-CoV-2 (PCR) Negative (Negative) Imaging Data MRI brain: Radiologist's Impression: [address] [address] Magnetic Resonance Report Signed Patient: Janet Paris MR#: [id number] : 1945 Acct:[id number] Age/Sex: 79 / F Date of Service: 05/09/24 Loc: ED Accession Number: [id number] Procedure: MR head/brain wo con Ordering Provider: Geovany Brewster MD PROCEDURE: MR HEAD/BRAIN WO CON INDICATIONS: cannot get words out TECHNIQUE: Non-contrast axial T1 spin echo, axial T2 fast spin echo, sagittal and axial FLAIR, coronal T2 fast spin echo, axial gradient echo, axial diffusion and ADC through the brain. COMPARISON: [facility], CT, CT HEAD/BRAIN WO CON, 05/09/2024, 11:18. FINDINGS: Image quality: Excellent. CSF spaces: Ventricles appear symmetric in size and shape. Basal cisterns are patent. No extra-axial fluid collections. Brain: No intracranial bleeds or mass effects. There is cerebral volume loss for age. There are moderate to severe periventricular and deep white matter chronic small vessel ischemic changes. Brainstem appears normal. Small focal vague area of restricted water diffusion in the posterior medial left temporal lobe consistent with acute infarct with subtle cytotoxic edema. Reference axial diffusion image 59 of series 11 and axial FLAIR image 9 of series 7 and sagittal T2 FLAIR image 18 of series 5. No chronic ischemic insults. Normal intravascular flow voids are present. Skull and face: Calvarial bone marrow is normal in signal. Orbits are normal. Sinuses: Sinuses and mastoids are clear. IMPRESSION: 1. Subtle acute small focal infarct in the posterior medial left temporal lobe. 2. Age-related volume loss and moderate to severe small vessel ischemic change. Dictated by: Andi Segura M.D. on 05/09/2024 at 15:58 Approved by: Andi Segura M.D. on 05/09/2024 at 16:05 ECG Data Interpretation: Normal sinus rhythm with rate of 62, no obvious ST segment elevation or depression changes. PVC noted. MA 180, QRS 82, QTC 403. MDM Narrative Medical decision making narrative: 79-year-old with intermittent inability to catch her words, denies previous stroke. Takes Eliquis for history of atrial fibrillation. No injury or trauma. Afebrile, sirs screen negative. On my exam patient seemed to be able to be fluent in her speech, though triage nurse noted her having difficulty speaking words she was shown. CT head noncontrast, CTA head and neck vessels. CT head no acute changes. CTA studies no thromboses or significant narrowing. See radiology reports. Patient was able to go through the MRI scanner prior to closing of service today, results pending at this time. MRI shows acute small focal infarct in the posterior medial left temporal lobe. Patient informed, copy given of report. Advised admission. We will contact hospitalist. [phone], case discussed with hospitalist Dr. Meehan, accepts patient for admission to observation Critical Care Time Critical Care Time Critical Care Time: Yes Total Critical Care Time: 35 Attestation: The high probability of a clinically significant, sudden or life threatening deterioration of the [cerebrovascular, neurologic, cardiopulmonary] system(s) required my full and direct attention, intervention and personal management. The aggregate critical care time was [35] minutes. This time is in addition to time spent performing reported procedures but includes the following: [x] Data Review and interpretation [x] Patient assessment and monitoring of vital signs [x] Documentation [x] Medication orders and management Discharge Plan Departure Patient Disposition: Admitted as Observation Clinical Impression: Aphasia, Urinary tract infection, Acute stroke due to ischemia Admit Date/Time: 05/09/24 16:28 Admit Provider: Austyn Meehan
[2024-05-09 11:54] LABS: Alanine Aminotransferase 25 IU/L (<35); Albumin 4.1 g/dL (3.5-5.0); Albumin Globulin Ratio 1.2 (1.0-2.8); Alkaline Phosphatase 86 U/L (38-126); Aspartate Aminotransferase 31 IU/L (14-36); Bilirubin Total 0.7 mg/dL (0.2-1.3); Blood Urea Nitrogen 23 mg/dL (7-17); Calcium 9.6 mg/dL (8.4-10.2); Carbon Dioxide 26 mmol/L (22-32); Chloride 105 mmol/L (98-107); Creatine Kinase 73 U/L (30-135); Estimated Glomerular Filt Rate 37 mL/min (>60); Ethanol (ETOH) < 10 mg/dL; Globulin 3.4 g/dL (1.7-4.1); Glucose 99 mg/dL (80-110); HEMOLYSIS < 15 (0-50); Sodium 138 mmol/L (137-145); Total Protein 7.5 g/dL (6.3-8.2)
[2024-05-09 12:04] LABS: Troponin I < 0.012 ng/mL (0.01-0.034)
[2024-05-09 13:41] LABS: Appearance Urine UA CLOUDY; Bilirubin Urine UA NEGATIVE (NEGATIVE); Color Urine UA YELLOW; Glucose Urine UA NEGATIVE (Negative); Ketones Urine UA NEGATIVE (NEGATIVE); Leukocyte Esterase Urine UA 1+ (NEGATIVE); Nitrite Urine UA POSITIVE (Negative); Occult Blood Urine UA NEGATIVE (Negative); Protein Urine UA NEGATIVE (Negative); Urobilinogen Urine UA 0.2 E.U./dL (0.2)
[2024-05-09 13:48] LABS: Bacteria Urine Many (>30); Culture Indicated Urine Specimen Cultured; RBC Urine 1-5/HPF (0-5/HPF); Squamous Epithelial Cell Urine 1-5 /HPF (0-5/HPF); Ur Creatinine Normal (Normal); Ur Specific Gravity Normal (Normal); Urine Volume 10mL (spun); Urine pH M (Normal); WBC Urine 1-5/HPF (0-5/HPF)
[2024-05-09 13:49] LABS: Urine Amphetamines Positive (Negative); Urine Barbiturates Negative (Negative); Urine Benzodiazepines Negative (Negative); Urine Cocaine Negative (Negative); Urine MDMA Negative (Negative); Urine Methadone Negative (Negative); Urine Methamphetamines Negative (Negative); Urine Opiates Negative (Negative); Urine Oxycodone Positive (Negative); Urine Phencyclidine Negative (Negative); Urine THC Negative (Negative); Urine Tricyclic Antidepressant Negative (Negative)
[2024-05-09 16:09] LABS: COVID19 -Nasal RAPID Negative (Negative)
[2024-05-09] MEDS: APIXABAN 5 MG TABLET PO (21:24)
--- NOTE | 2024-05-09 21:27 | PM.HP.1 ---
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 She has no additional deficits. Urine appears infected, borderline hypertensive. [facility] Medical History (Updated 05/09/24 @ 23:41 by Dipak Espino MD) Bipolar 1 disorder Insomnia At high risk for cardiovascular disease (Unknown) Hyperlipidemia Severe 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, without psychotic features (07/05/16) Lumbar radiculopathy Hypertensive heart and chronic kidney disease with heart failure and stage 1 through stage 4 chronic kidney disease, or unspecified chronic kidney disease Cardiomegaly CKD (chronic kidney disease) ADD (attention deficit disorder) Peripheral vascular disease of extremity with claudication Kidney cysts Sacralization of lumbar vertebra Foraminal stenosis of lumbar region COVID SOB (shortness of breath) on exertion Class 1 obesity due to excess calories with body mass index (BMI) of 34.0 to 34.9 in adult Depression ADD (attention deficit disorder) Dysphagia Frequent falls Sciatica Loss of voice Dysphagia Encounter for Medicare annual wellness exam Screening for malignant neoplasm of colon COPD (chronic obstructive pulmonary disease) Right leg injury UTI (urinary tract infection) Bilirubin in urine Raynaud's disease without gangrene Peripheral neuropathy Venous stasis Rheumatoid arthritis Fibromyalgia Pneumonia Cystic fibrosis (~1956) Post traumatic stress disorder (PTSD) Anxiety Arachnoiditis Stroke Restless leg syndrome Scoliosis Osteoporosis Degenerative joint disease (DJD) of lumbar spine Foot pain Fibromyalgia Chronic back pain Cervical spine disease Ankle pain Anemia Vertigo (~1968) Cataracts, bilateral Heavy menstrual period Abnormal Pap smear of cervix (~1956) Kidney stones GI bleeding GERD (gastroesophageal reflux disease) Skin cancer (~1996) Hypertension Atrial fibrillation Surgical History History of lumbar fusion History of neck surgery History of back surgery History of knee replacement (11/29/16) Status post bunionectomy (08/11/15) History of hip replacement S/P total abdominal hysterectomy and bilateral salpingo-oophorectomy Status post tonsillectomy and adenoidectomy Status post tubal ligation Status post cholecystectomy Status post appendectomy Social History marital status: household members: spouse, family and caregiver Smoking Status: Former smoker alcohol intake: never substance use type: does not use Meds Home Medications and Allergies Home Medications Medication Instructions Recorded Confirmed Type Disabled Parking Permit #1 ea 06/07/19 05/09/24 Rx nitroglycerin 0.4 mg sublingual See Rx Instructions .Route 10/11/22 05/09/24 Rx tablet .COMPLEX ##25 acetaminophen 500 mg tablet 1,000 mg PO TID PRN Pain (Scale 11/01/22 05/09/24 History (Tylenol Extra Strength) Score 1-3) naloxone 0.4 mg/mL injection 0.4 mg IM Q2M PRN opioid reversal 11/22/22 05/09/24 Rx syringe #3 mL duloxetine 60 mg capsule,delayed 60 mg PO DAILY #90 caps 10/03/23 05/09/24 Rx release dapagliflozin propanediol 10 mg 10 mg PO DAILY 10/17/23 05/09/24 History tablet tiotropium 2.5 mcg-olodaterol 2.5 2 puff inhalation BID #4 grams 10/17/23 05/09/24 Rx mcg/actuation mist for inhalation lidocaine 5 % topical patch 2 patch topical DAILY PRN pain #60 11/16/23 05/09/24 Rx ea methocarbamol 750 mg tablet 750 mg PO Q8H PRN muscle spasms 11/16/23 05/09/24 Rx #90 tabs amlodipine 5 mg tablet 5 mg PO DAILY 12/20/23 05/09/24 History dextroamphetamine-amphetamine 20 See Rx Instructions .Route 02/06/24 05/09/24 Rx mg tablet .COMPLEX #60 tabs spironolactone 25 mg tablet 25 mg PO DAILY #90 tabs 02/08/24 05/09/24 Rx bupropion HCl 200 mg tablet,12 hr 200 mg PO DAILY #90 tabs 02/16/24 05/09/24 Rx sustained-release Circulation and pain relief are See Rx Instructions .Route 03/14/24 05/09/24 Rx compression foot and calf boot .COMPLEX #2 ea carvedilol 12.5 mg tablet 12.5 mg PO BID 03/28/24 05/09/24 History Disabled Parking Permit See Rx Instructions .Route 04/02/24 05/09/24 Rx .COMPLEX #1 unit tirzepatide 7.5 mg/0.5 mL 7.5 mg (0.5 mL) SUBCUT QWEEK #2 mL 04/16/24 05/09/24 Rx subcutaneous pen injector zaleplon 10 mg capsule 20 mg (2 x 10 mg) PO BEDTIME PRN 04/16/24 05/09/24 Rx sleep #180 caps buprenorphine 12 mg-naloxone 3 mg 2 film buccal Q24H #60 ea 05/03/24 05/09/24 Rx sublingual film (Suboxone) apixaban 5 mg tablet (Eliquis) 5 mg PO BID #200 tabs 05/09/24 05/09/24 Rx furosemide 40 mg tablet 40 mg PO QAM PRN edema 05/09/24 05/09/24 History tirzepatide 7.5 mg/0.5 mL 7.5 mg SUBCUT QWEEK 05/09/24 05/09/24 History subcutaneous pen injector (Mounjaro) Allergies Allergy/AdvReac Type Severity Reaction Status Date / Time ipratropium [From Atrovent] Allergy Intermediate voice spasm Verified 05/09/24 11:06 zolpidem [From Ambien] AdvReac Severe sleep Verified 05/09/24 11:06 walking, eating ciprofloxacin AdvReac Intermediate FLUSHING, Verified 05/09/24 11:06 SWEATS, SOB citalopram [CITALOPRAM] AdvReac Intermediate Hallucinati Verified 05/09/24 11:06 ons cyclobenzaprine AdvReac Intermediate FLUSHING, Verified 05/09/24 11:06 SWEATS, SOB pregabalin AdvReac Intermediate FLUSHING/SW Verified 05/09/24 11:06 EATS/SOB Review of Systems Review of Systems Narrative: partial due to difficulty with aphasia Cardiovascular Comments: w/o chest pain sometimes feels palpitations Respiratory Comments: not short of breath Gastrointestinal Comments: w/o abdominal pain Genitourinary Comments: w/o dysuria Neurologic Comments: hard to use appropriate words Exam Vital Signs (past 8 hours): - 05/09/24 13:30 05/09/24 13:30 05/09/24 14:12 Temperature Pulse Rate 68 67 Respiratory Rate 19 Blood Pressure 143/65 H Pulse Oximetry 96 Oxygen Delivery Method Room Air Oxygen Flow Rate 05/09/24 14:30 05/09/24 14:40 05/09/24 14:40 Temperature Pulse Rate 71 71 Respiratory Rate Blood Pressure 144/66 H Pulse Oximetry 96 91 Oxygen Delivery Method Oxygen Flow Rate 05/09/24 15:00 05/09/24 15:00 05/09/24 15:30 Temperature Pulse Rate 68 Respiratory Rate 24 Blood Pressure 145/71 H 145/66 H Pulse Oximetry 96 Oxygen Delivery Method Oxygen Flow Rate 05/09/24 15:30 05/09/24 16:00 05/09/24 16:00 Temperature Pulse Rate 71 71 Respiratory Rate 24 24 Blood Pressure 153/88 H Pulse Oximetry 94 96 Oxygen Delivery Method Oxygen Flow Rate 05/09/24 17:38 05/09/24 17:44 05/09/24 17:44 Temperature 98.8 F 98.8 F Pulse Rate 64 69 Respiratory Rate 20 18 Blood Pressure 159/76 H 159/76 H Pulse Oximetry 96 96 96 Oxygen Delivery Method Room Air Oxygen Flow Rate 0 0 Oxygen Delivery Method Room Air Oxygen Flow Rate 0 Const Other: laying in bed in no distress Resp Other: CTA Cardio Other: RRR GI Other: w/o tenderness Skin Other: w/o rashes Neuro Other: expressive aphasia, memory loss Extrem Other: w/o swelling Objective ECG Impression: NSR Labs 05/10/24 05:30 05/10/24 05:30 Labs: Laboratory Results - last 24 hr 05/09/24 05/09/24 05/09/24 11:15 13:22 13:22 WBC 6.4 RBC 4.10 Hgb 11.7 L Hct 34.8 L MCV 85.1 MCH 28.6 MCHC 33.6 RDW 14.5 Plt Count 222 Neut % (Auto) 70.1 Lymph % (Auto) 16.7 L [place] % (Auto) 8.8 Eos % (Auto) 3.7 Baso % (Auto) 0.7 Neut # (Auto) 4500 Lymph # (Auto) 1100 [place] # (Auto) 600 Eos # (Auto) 200 Baso # (Auto) 0 PT 14.4 H INR 1.3 APTT 39 H Sodium 138 Potassium 4.0 Chloride 105 Carbon Dioxide 26 BUN 23 H Creatinine 1.44 H Estimated GFR 37 L BUN/Creatinine Ratio 16.0 Glucose 99 Calcium 9.6 Total Bilirubin 0.7 AST 31 ALT 25 Alkaline Phosphatase 86 Total Creatine Kinase 73 Troponin I < 0.012 Total Protein 7.5 Albumin 4.1 Globulin 3.4 Albumin/Globulin Ratio 1.2 Urine Color Yellow Urine Appearance Cloudy Urine pH 6.0 M Ur Specific [place] 1.010 Urine Protein Negative Urine Glucose (UA) Negative Urine Ketones Negative Urine Occult Blood Negative Urine Nitrate Positive H Urine Bilirubin Negative Urine Urobilinogen 0.2 Ur Leukocyte Esterase 1+ H Urine RBC 1-5/hpf Urine WBC 1-5/hpf Ur Squamous Epith Cells 1-5 /hpf Urine Bacteria Many (>30) H Ur Culture Indicated? Specimen cultured Vol Urine Centrifuged 10ml (spun) U Opiates 300ng/mL cut Negative Ur Oxycodone Screen Positive H Urine Methadone Screen Negative Ur Barbiturates Screen Negative U Tricyclic Antidepress Negative Ur Phencyclidine Scrn Negative Ur Amphetamines Screen Positive H U Methamphetamines Scrn Negative Ur MDMA Scrn (Ecstasy) Negative U Benzodiazepines Scrn Negative Urine Cocaine Screen Negative U Marijuana (THC) Screen Negative Urine Specific [place] Normal Ethyl Alcohol < 10 Ur Creatinine Normal SARS-CoV-2 (PCR) 05/09/24 15:20 WBC RBC Hgb Hct MCV MCH MCHC RDW Plt Count Neut % (Auto) Lymph % (Auto) [place] % (Auto) Eos % (Auto) Baso % (Auto) Neut # (Auto) Lymph # (Auto) [place] # (Auto) Eos # (Auto) Baso # (Auto) PT INR APTT Sodium Potassium Chloride Carbon Dioxide BUN Creatinine Estimated GFR BUN/Creatinine Ratio Glucose Calcium Total Bilirubin AST ALT Alkaline Phosphatase Total Creatine Kinase Troponin I Total Protein Albumin Globulin Albumin/Globulin Ratio Urine Color Urine Appearance Urine pH Ur Specific [place] Urine Protein Urine Glucose (UA) Urine Ketones Urine Occult Blood Urine Nitrate Urine Bilirubin Urine Urobilinogen Ur Leukocyte Esterase Urine RBC Urine WBC Ur Squamous Epith Cells Urine Bacteria Ur Culture Indicated? Vol Urine Centrifuged U Opiates 300ng/mL cut Ur Oxycodone Screen Urine Methadone Screen Ur Barbiturates Screen U Tricyclic Antidepress Ur Phencyclidine Scrn Ur Amphetamines Screen U Methamphetamines Scrn Ur MDMA Scrn (Ecstasy) U Benzodiazepines Scrn Urine Cocaine Screen U Marijuana (THC) Screen Urine Specific [place] Ethyl Alcohol Ur Creatinine SARS-CoV-2 (PCR) Negative Assessment & Plan Assessment and plan (1) Infarction of left temporal lobe: Status: Acute (2) Acute ischemic left MCA stroke: Status: Acute (3) Fluent aphasia: Status: Acute (4) Hypertension: Qualifiers: Hypertension type: primary hypertension Qualified Code(s): I10 - Essential (primary) hypertension Status: Chronic (5) PAF (paroxysmal atrial fibrillation): Status: Acute (6) Urinary tract infection: Status: Acute (7) Peripheral vascular disease of extremity with claudication: Status: Acute (8) CKD (chronic kidney disease) stage 3, GFR 30-59 ml/min: Qualifiers: Chronic kidney disease stage 3 subtype: stage 3b (GFR 30-44) Qualified Code(s): N18.32 - Chronic kidney disease, stage 3b Status: Chronic (9) ADD (attention deficit disorder): Qualifiers: Attention deficit-hyperactivity disorder type: unspecified Hyperactivity presence: present Qualified Code(s): F90.9 - Attention-deficit hyperactivity disorder, unspecified type Status: Acute (10) COPD (chronic obstructive pulmonary disease): Qualifiers: COPD type: unspecified COPD Qualified Code(s): J44.9 - Chronic obstructive pulmonary disease, unspecified Status: Chronic (11) Sciatica: Status: Acute (12) Uncomplicated opioid dependence: Status: Chronic (13) Bipolar 1 disorder: Status: Acute Assessment & Plan narrative: Acute Ischemic Lt posterior temporal lobe CVA - with resultant fluent aphasia - anticoagulated for PAF, CTA negative - likely ischemic with underlying PAD, HLD, HTN. A1C, lipid panel pending. Will likely need statin and ASA - apparently had stroke in the past - not clear if 100% compliant with medications, including Eliquis - follow up with neurology HTN, likely CHF, CKD - cardiomegaly, echo pending - Lasix Back Pain, Opioid Dependence - chronic, from degenerative disease, s/p multiple LS surgeries, 2 x CS Sx - Tylenol, [place] prn - Buprenorphine held Bipolar Disorder, ADD, PTSD - Wellbutrin, Cymbalta, dextroamphetamine COPD - prn albuterol - Spiriva Obesity - dapagliflozin - lost 30 lbs Time-Based Coding :: [TOTAL MINUTES] spent with patient and on the chart (including review of chart, obtaining history, exam, reviewing outside data, placing orders, documenting exam and treatment plan, and counseling patient) on [DATE].
[2024-05-10] VITALS (11 sets, daily range): BP systolic 128–155; BP diastolic 63–105; PULSE 61–70; RESP 16–18; TEMP 36.4–37.6; O2SAT 91–95
[2024-05-10 06:30] LABS: Add Manual Diff / Slide Review NO; Basophils Absolute Auto 0 /uL (0-100); Basophils Percent Auto 0.5 % (0-2); Eosinophils Absolute Auto 200 /uL (0-450); Eosinophils Percent Auto 3.1 % (2-4); Hematocrit 33.7 % (36-46); Hemoglobin 11.3 g/dL (12.0-16.0); Lymphocytes Absolute Auto 1400 /uL (1100-4500); Lymphocytes Percent Auto 20.8 % (25-40); Mean Corpuscular HGB Conc 33.4 % (30-36); Mean Corpuscular Hemoglobin 28.5 PG (26-34); Mean Corpuscular Volume 85.5 fL (80-100); Monocytes Absolute Auto 600 /uL (0-900); Monocytes Percent Auto 9.3 % (3-14); Neutrophils Absolute Auto 4500 /uL (1500-7000); Neutrophils Percent Auto 66.3 % (50-75); Platelet Count 201 X10^3/uL (150-400); Red Blood Cell Count 3.94 X10^6/uL (4.0-5.2); Red Cell Distribution Width 14.3 % (11.6-14.8); White Blood Cell Count 6.9 X10^3/uL (4.5-11.0)
[2024-05-10 06:37] LABS: Hemoglobin A1C% w Est Avg Glu 5.2 % (4.0-6.0)
[2024-05-10 06:49] LABS: BUN Creatinine Ratio 14.3 (6-22); Blood Urea Nitrogen 20 mg/dL (7-17); Calcium 9.4 mg/dL (8.4-10.2); Carbon Dioxide 31 mmol/L (22-32); Chloride 104 mmol/L (98-107); Cholesterol 139 mg/dL (140-199); Estimated Glomerular Filt Rate 38 mL/min (>60); Glucose 87 mg/dL (80-110); HDL Cholesterol 33 mg/dL (40-60); HEMOLYSIS < 15 (0-50); LDL Cholesterol Calculated 81 mg/dL (<100); Magnesium 2.3 mg/dL (1.6-2.3); Potassium 4.1 mmol/L (3.4-5.1); Sodium 139 mmol/L (137-145); Triglycerides 127 mg/dL (35-150)
[2024-05-10 07:19] LABS: TSH w/ Reflex to FT4 0.79 uIU/mL (0.47-4.68)
--- NOTE | 2024-05-10 08:21 | PM.PN.1 ---
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 She has no additional deficits. Urine appears infected, borderline hypertensive. S: She has normal strength of her arms and legs and denies headache. Her speech is relatively good. She does have expressive aphasia and has difficulty having occasional words come out. This includes [place], and [facility]. She does note that the words are in her head but just will not come out of her mouth. She did well with her swallowing evaluation. Exam Vital Signs (past 8 hours): - 05/10/24 01:00 05/10/24 01:00 05/10/24 04:28 Temperature 98.3 F 98.2 F Pulse Rate 61 63 Respiratory Rate 16 16 Blood Pressure 143/72 H 137/95 H Pulse Oximetry 92 92 92 Oxygen Delivery Method Room Air 05/10/24 05:00 Temperature Pulse Rate Respiratory Rate Blood Pressure Pulse Oximetry 95 Oxygen Delivery Method Room Air Oxygen Delivery Method Room Air Oxygen Flow Rate 0 Narrative Exam Narrative: NAD, alert and oriented. Fluent speech. Expressive aphasia. Lungs are clear, normal rate and effort. Heart is regular, no murmur gallop or rub. Abdomen is soft, non distended. Extremities are free of edema. EOMI, no facial droop. Speech is relatively fluent with good articulation. Motor strength is 5/5 out in arms and legs. Objective ECG Impression: Sinus rhythm with occasional premature ventricular complexes Septal infarct , age undetermined Imaging Multiple studies:: Radiologist's impression: CTA head and neck: No significant intracranial arterial abnormality is seen. No significant abnormality is seen within the arteries of the neck. Interval development a small solid component in a part solid nodule in the left upper lobe. Recommend six-month follow-up per consensus guidelines. CT brain: No acute intracranial pathology. MRI brain: 1. Subtle acute small focal infarct in the posterior medial left temporal lobe. 2. Age-related volume loss and moderate to severe small vessel ischemic change. Labs 05/10/24 05:30 05/10/24 05:30 Labs: Laboratory Results - last 24 hr 05/09/24 05/09/24 05/09/24 11:15 13:22 13:22 WBC 6.4 RBC 4.10 Hgb 11.7 L Hct 34.8 L MCV 85.1 MCH 28.6 MCHC 33.6 RDW 14.5 Plt Count 222 Neut % (Auto) 70.1 Lymph % (Auto) 16.7 L [place] % (Auto) 8.8 Eos % (Auto) 3.7 Baso % (Auto) 0.7 Neut # (Auto) 4500 Lymph # (Auto) 1100 [place] # (Auto) 600 Eos # (Auto) 200 Baso # (Auto) 0 PT 14.4 H INR 1.3 APTT 39 H Sodium 138 Potassium 4.0 Chloride 105 Carbon Dioxide 26 BUN 23 H Creatinine 1.44 H Estimated GFR 37 L BUN/Creatinine Ratio 16.0 Glucose 99 Hemoglobin A1c Calcium 9.6 Magnesium Total Bilirubin 0.7 AST 31 ALT 25 Alkaline Phosphatase 86 Total Creatine Kinase 73 Troponin I < 0.012 Total Protein 7.5 Albumin 4.1 Globulin 3.4 Albumin/Globulin Ratio 1.2 Triglycerides Cholesterol LDL Cholesterol, Calc HDL Cholesterol TSH Urine Color Yellow Urine Appearance Cloudy Urine pH 6.0 M Ur Specific [place] 1.010 Urine Protein Negative Urine Glucose (UA) Negative Urine Ketones Negative Urine Occult Blood Negative Urine Nitrate Positive H Urine Bilirubin Negative Urine Urobilinogen 0.2 Ur Leukocyte Esterase 1+ H Urine RBC 1-5/hpf Urine WBC 1-5/hpf Ur Squamous Epith Cells 1-5 /hpf Urine Bacteria Many (>30) H Ur Culture Indicated? Specimen cultured Vol Urine Centrifuged 10ml (spun) U Opiates 300ng/mL cut Negative Ur Oxycodone Screen Positive H Urine Methadone Screen Negative Ur Barbiturates Screen Negative U Tricyclic Antidepress Negative Ur Phencyclidine Scrn Negative Ur Amphetamines Screen Positive H U Methamphetamines Scrn Negative Ur MDMA Scrn (Ecstasy) Negative U Benzodiazepines Scrn Negative Urine Cocaine Screen Negative U Marijuana (THC) Screen Negative Urine Specific [place] Normal Ethyl Alcohol < 10 Ur Creatinine Normal SARS-CoV-2 (PCR) 05/09/24 05/10/24 15:20 05:30 WBC 6.9 RBC 3.94 L Hgb 11.3 L Hct 33.7 L MCV 85.5 MCH 28.5 MCHC 33.4 RDW 14.3 Plt Count 201 Neut % (Auto) 66.3 Lymph % (Auto) 20.8 L [place] % (Auto) 9.3 Eos % (Auto) 3.1 Baso % (Auto) 0.5 Neut # (Auto) 4500 Lymph # (Auto) 1400 [place] # (Auto) 600 Eos # (Auto) 200 Baso # (Auto) 0 PT INR APTT Sodium 139 Potassium 4.1 Chloride 104 Carbon Dioxide 31 BUN 20 H Creatinine 1.40 H Estimated GFR 38 L BUN/Creatinine Ratio 14.3 Glucose 87 Hemoglobin A1c 5.2 Calcium 9.4 Magnesium 2.3 Total Bilirubin AST ALT Alkaline Phosphatase Total Creatine Kinase Troponin I Total Protein Albumin Globulin Albumin/Globulin Ratio Triglycerides 127 Cholesterol 139 L LDL Cholesterol, Calc 81 HDL Cholesterol 33 L TSH 0.79 Urine Color Urine Appearance Urine pH Ur Specific [place] Urine Protein Urine Glucose (UA) Urine Ketones Urine Occult Blood Urine Nitrate Urine Bilirubin Urine Urobilinogen Ur Leukocyte Esterase Urine RBC Urine WBC Ur Squamous Epith Cells Urine Bacteria Ur Culture Indicated? Vol Urine Centrifuged U Opiates 300ng/mL cut Ur Oxycodone Screen Urine Methadone Screen Ur Barbiturates Screen U Tricyclic Antidepress Ur Phencyclidine Scrn Ur Amphetamines Screen U Methamphetamines Scrn Ur MDMA Scrn (Ecstasy) U Benzodiazepines Scrn Urine Cocaine Screen U Marijuana (THC) Screen Urine Specific [place] Ethyl Alcohol Ur Creatinine SARS-CoV-2 (PCR) Negative [facility] Medical History Bipolar 1 disorder Insomnia At high risk for cardiovascular disease (Unknown) Hyperlipidemia Severe 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, without psychotic features (07/05/16) Lumbar radiculopathy Hypertensive heart and chronic kidney disease with heart failure and stage 1 through stage 4 chronic kidney disease, or unspecified chronic kidney disease Cardiomegaly CKD (chronic kidney disease) ADD (attention deficit disorder) Peripheral vascular disease of extremity with claudication Kidney cysts Sacralization of lumbar vertebra Foraminal stenosis of lumbar region COVID SOB (shortness of breath) on exertion Class 1 obesity due to excess calories with body mass index (BMI) of 34.0 to 34.9 in adult Depression ADD (attention deficit disorder) Dysphagia Frequent falls Sciatica Loss of voice Dysphagia Encounter for Medicare annual wellness exam Screening for malignant neoplasm of colon COPD (chronic obstructive pulmonary disease) Right leg injury UTI (urinary tract infection) Bilirubin in urine Raynaud's disease without gangrene Peripheral neuropathy Venous stasis Rheumatoid arthritis Fibromyalgia Pneumonia Cystic fibrosis (~1956) Post traumatic stress disorder (PTSD) Anxiety Arachnoiditis Stroke Restless leg syndrome Scoliosis Osteoporosis Degenerative joint disease (DJD) of lumbar spine Foot pain Fibromyalgia Chronic back pain Cervical spine disease Ankle pain Anemia Vertigo (~1968) Cataracts, bilateral Heavy menstrual period Abnormal Pap smear of cervix (~1956) Kidney stones GI bleeding GERD (gastroesophageal reflux disease) Skin cancer (~1996) Hypertension Atrial fibrillation Surgical History History of lumbar fusion History of neck surgery History of back surgery History of knee replacement (11/29/16) Status post bunionectomy (08/11/15) History of hip replacement S/P total abdominal hysterectomy and bilateral salpingo-oophorectomy Status post tonsillectomy and adenoidectomy Status post tubal ligation Status post cholecystectomy Status post appendectomy Social History marital status: household members: spouse, family and caregiver Smoking Status: Former smoker alcohol intake: never substance use type: does not use Assessment & Plan Assessment & Plan narrative: 1. Acute Ischemic Lt posterior temporal lobe CVA, present on admission and active. - with resultant fluent aphasia - anticoagulated for PAF, CTA negative - likely ischemic with underlying PAD, HLD, HTN. A1C, lipid panel pending. Will likely need statin and ASA - apparently had stroke in the past - not clear if 100% compliant with medications, including Eliquis - follow up with neurology 2. HTN, present on admission and active - cardiomegaly, echo pending - Lasix 3. CKD 3, present on admission and active 4. Chronic Back Pain, present on admission and active 5. Opioid Dependence, present on admission and active - chronic, from degenerative disease, s/p multiple LS surgeries, 2 x CS Sx - Tylenol, [place] prn - Buprenorphine held 6. Bipolar Disorder, ADD, PTSD. Present on admission and active - Wellbutrin, Cymbalta, dextroamphetamine 7. COPD. Present on admission and active - prn albuterol - Spiriva 8. UTI, 9resent on admission and active PLAN: -continue anticoagulation -speech therapy evaluation -physical and occupational therapy evaluations -monitor neurologic status -high dose statin. -ceftriaxone IV We will cancel echo. She was an echo from April 17, 2024 revealing normal EF of 55-60%, a dilated left atrium, mild mitral regurgitation, mild tricuspid regurgitation, and an enlarged ascending aorta at 3.8 cm. No PFO was noted. Inpatient status, expect 2 midnight necessity for hospital services. Full resuscitation. DVT prophylaxis, she was on chronic Eliquis. Time-Based Coding :: 25 min spent with patient and on the chart (including review of chart, obtaining history, exam, reviewing outside data, placing orders, documenting exam and treatment plan, and counseling patient) on 05/10.
[2024-05-10] MEDS: APIXABAN 5 MG TABLET PO ×2 (09:21→20:16)
[2024-05-10] MEDS: DULOXETINE 30 MG CAPSULE 60 MG PO (09:21)
[2024-05-10] MEDS: cefTRIAXone 1,000 MG in SODIUM CHLORIDE 0.9% 100 ML 200 MG IV (09:22)
[2024-05-10] MEDS: carvediloL 12.5 MG TABLET PO ×2 (09:22→20:16)
[2024-05-10] MEDS: SPIRONOLACTONE 25 MG TABLET PO (09:22)
--- NOTE | 2024-05-10 10:29 | PC.NURSE ---
Day shift: Notified MD Landrum of patient's UTI and the need for antibiotics. Ordered and given. Also notified MD that patient seemed to be having more difficulty finding words - she could not name any of the pictures from the NIH scale. Though NIH score remains the same as it was yesterday, at 6. Will continue to monitor.
--- NOTE | 2024-05-10 13:02 | CM.DANOTE ---
Initial DCP Assessment Note Pt is a 79 yo female, resident of [place], arrives with aphasia, hx of stroke, found to have stroke, being seen by PT/OT/DIRECTOR OF GLOBAL TALENT today. PCP: Formerly Yvonne Calabrese/Barbara smith, needs new PCP assigned Payer: [facility] Reviewed chart, met w/patient and her HERLINDA caregiver Milady Farrell P [phone]. Patient having a difficult time with word finding, gives this COMPUTER SECURITY COORDINATOR permission to contact her Bob P [phone]. Discussed HH services briefly and patient reports preference for [facility]. Placed call to Don, according to our conversation; patient requires some level of assist with most ADLs. Caregiver Milady works M-F 9-3pm. Spouse Bob is independent and assists patient as needed also. Don drives, caregiver Milady also assists with patient's transportation needs. Patient/spouse live with their niece and a roommate. Don explains that he hopes to move out of their home around the first of the year and into an assisted living facility. Strongly encouraged Don to discuss this with patient's HERLINDA correctional case records supervisor. Don unsure who patient's HERLINDA CM is currently although states agreement to get in contact. Don hopeful to have patient return home upon discharge, he or Milady can transport. Discussed HH services and Don agreeable to [facility] , says he has been trying to get patient speech services since prior CVA (?) Patient discussed with OT this afternoon, DIRECTOR OF GLOBAL TALENT has seen patient, PT/OT still pending this afternoon. CM team following closely for coordination of discharge plan. Discharge likely over the next 24-48 hrs. Will work on HH referral; INS: [facility]. Following for therapy recs. LAURENT Dexter Discharge Planning/Care Management CM Discharge Assessment Start: 05/10/24 12:51 Freq: Status: Active Protocol: Document 05/10/24 12:52 BUD (Rec: 05/10/24 13:02 BUD [id number]) Discharge Planning Assessment Assigned Credit Associate LAURENT Gar DPOA/Assigned Designee Name Bob Larkin spouse Contact Information [phone] Advance Directives? No History Provided By Patient,Friend,Significant Other Has Patient been admitted in last 30 No days? Prior Living Arrangements House Household Members spouse,family,friend(s) Comment 50 yo niece is currently staying with them, as is a roommate. Type of transportation used prior to Relies on Others admit Independent with ADL's No Is patient alert and oriented? Yes: At baseline, mild memory loss Needs Assistance With Bathing,Grooming,Meal Prep, Toileting,Managing Medications ,Home Chores / Shopping Caregiver for Another No Patient/Family Preference Home with Home Health Barriers to Discharge No Comment Anticipate discharge home with HERLINDA CM, spouse and [facility] Discharge Plan Home with Home Health Referrals Initiated Home Health Additional Comment Patient requests [facility]
[2024-05-10] MEDS: BUPRENORPHINE/NALOXONE 8MG/2MG 1 TAB 1.5 TAB SL (13:45)
--- NOTE | 2024-05-10 14:25 | ST.IPSLE ---
Visit Care Team Role Provider Type HAMZAH Navas Family Provider Advanced Associate Director Qa Primary Care Provider Specialty: Family Practice Address: [address] [place] [address], [id number] Email: [email or web address] Geovany Brewster MD Emergency Provider Physician Referring Provider Specialty: Emergency Medicine Address: [address] [place] [address], [address] Fax: Email: [email or web address] Austyn Meehan DO Admit Provider Physician Attending Provider Specialty: Internal Medicine Address: [address] [place] [address], [address] Email: [email or web address] Current Diagnoses Opioid dependence, uncomplicated (05/09/24) Bipolar disorder, unspecified (05/09/24) Attention-deficit hyperactivity disorder, unspecified type (05/09/24) Essential (primary) hypertension (05/09/24) Paroxysmal atrial fibrillation (05/09/24) Cerebral infarction due to unspecified occlusion or stenosis of left middle cerebral artery (05/09/24) Other cerebral infarction (05/09/24) Peripheral vascular disease, unspecified (05/09/24) Chronic obstructive pulmonary disease, unspecified (05/09/24) Sciatica, unspecified side (05/09/24) Chronic kidney disease, stage 3b (05/09/24) Urinary tract infection, site not specified (05/09/24) Aphasia (05/09/24) Past Medical History (Last Reviewed 05/10/24 @ 08:24 by Sesar Landrum MD) Abnormal Pap smear of cervix (Medical ~1957) ADD (attention deficit disorder) (Medical) ADD (attention deficit disorder) (Medical) Anemia (Medical) Ankle pain (Medical) Anxiety (Medical) Arachnoiditis (Medical) At high risk for cardiovascular disease (Medical Unknown) Atrial fibrillation (Medical) Bilirubin in urine (Medical) Bipolar 1 disorder (Medical) Cardiomegaly (Medical) Cataracts, bilateral (Medical) Cervical spine disease (Medical) Chronic back pain (Medical) CKD (chronic kidney disease) (Medical) Class 1 obesity due to excess calories with body mass index (BMI) of 34.0 to 34.9 in adult (Medical) COPD (chronic obstructive pulmonary disease) (Medical) COVID (Medical) Cystic fibrosis (Medical ~1956) 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) Depression (Medical) Dysphagia (Medical) Dysphagia (Medical) Encounter for Medicare annual wellness exam (Medical) Fibromyalgia (Medical) Fibromyalgia (Medical) Foot pain (Medical) Foraminal stenosis of lumbar region (Medical) Frequent falls (Medical) GERD (gastroesophageal reflux disease) (Medical) GI bleeding (Medical) Heavy menstrual period (Medical) Hyperlipidemia (Medical) Hypertension (Medical) Hypertensive heart and chronic kidney disease with heart failure and stage 1 through stage 4 chronic kidney disease, or unspecified chronic kidney disease (Medical) Insomnia (Medical) Kidney cysts (Medical) Kidney stones (Medical) Loss of voice (Medical) Lumbar radiculopathy (Medical) Osteoporosis (Medical) Peripheral neuropathy (Medical) Peripheral vascular disease of extremity with claudication (Medical) Pneumonia (Medical) Post traumatic stress disorder (PTSD) (Medical) Raynaud's disease without gangrene (Medical) Restless leg syndrome (Medical) Rheumatoid arthritis (Medical) Right leg injury (Medical) Sacralization of lumbar vertebra (Medical) Sciatica (Medical) Scoliosis (Medical) Screening for malignant neoplasm of colon (Medical) Severe 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, without psychotic features (Medical 07/05/16) Skin cancer (Medical ~1996) Melanoma SOB (shortness of breath) on exertion (Medical) Stroke (Medical) UTI (urinary tract infection) (Medical) Venous stasis (Medical) Vertigo (Medical ~1968) Speech-Language Pathology Speech/Language Eval DESULPHURING OPERATOR Adult Cognitive Linguistic Eval Start: 05/10/24 10:05 Freq: Status: Active Protocol: Document 05/10/24 12:29 SS (Rec: 05/10/24 12:54 SS [id number]) Adult Cognitive Linguistic Evaluation Session Time Visit Start Time 10:35 Visit Stop Time 11:31 Total Visit Minutes 56 Visit Information Visit Number Initial Evaluation Insurance Information [facility] Referral Referring Provider Dr. Geovany Brewster Reason for Referral Expressive aphasia Setting Assessment Location Acute Care Visit Type Note Type Initial evaluation Next Note Type Next Note Type Treatment Note Patient Information Identification Type Name,Wristband Patient History Pt is a 79 year old female who was admitted to ED with MRI indicating acute small focal infarct in the posterior medial left temporal lobe. 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 Per progress note on 05/10, urine appears infected, borderline hypertensive. Pt was referred for DESULPHURING OPERATOR assessment and treatment of fluent expressive aphasia. Hearing Hearing Level Normal Vision Vision Status Impaired Comments Possible right neglect noted Previous Therapy Previous Speech-Language Therapy No Subjective Patient Report Pt sitting upright in armchair upon DESULPHURING OPERATOR arrival. Her caregiver, Milady, who cares for her every day of the week, was present for the evaluation. She reports increased word-finding difficulty, increased alexia, and increased visual neglect since yesterday. Pt was alert, though with difficulty recalling the date, location, or reason for hospitalization, which likely was exacerbated by expressive aphasia. pt took sips of thin liquids throughout evaluation without difficulty and denied swallowing difficulty and RN denied any overt s/sx of aspiration. Mental Status Alert,Responsive,Cooperative Assessment Oral Motor Examination Completed Yes Results Lingual fasciculations and deviation to the right at rest . Otherwise, function appeared adequate for speech. Informal Assessment Receptive Language Normal No Receptive Language Impairment(s) Comprehension of complex yes/ no questions,Following 2-step commands,Following 3-step commands,Reading comprehension ,Reading Expressive Language Normal No Expressive Language Impairment(s) Confrontation naming,Divergent naming,Expression of complex thoughts/ideas Pragmatic Language Normal Yes Speech Normal Yes: No dysarthria present Cognition Normal No Cognitive Impairment(s) Orientation,Attention,Short- term memory,Executive functioning Formal Assessment Standardized Test/Screener Type Quick Aphasia Battery (QAB) Administration Complete Results [facility] Mental Status (UMS) Examination was used to obtain information regarding the patient?s cognitive abilities. The UMS consists of ten questions that assess delayed recall, verbal fluency, comprehension, calculations, attention, working memory, and orientation. A scored is calculated from a possible 30 points. Scores fall in one of three ranges describing a patient?s level of impairment based upon level of education. Patients who have completed high school are expected to score slightly higher on this test than those who have not. For someone with a high school education, WNL is 27-30. The SLUMS was completed on this date. Subtest scores are as follows: Orientation: 2/3 Immediate Recall: 4/5 (not calculated in total score) Numeric Calculation: 0/3 Divergent Namin/3 (total of 4) Delayed Recall: 0/5 Attention/Registration with Digit Span: 1/2 Clock Drawing (Visuospatial & Executive Functioning): 0/4 ( right neglect may be contributing) Geometric Figures: 2/2 Short Story (memory/recall): 2 /8 Total Score: 7/30 (Moderate- severe impairment) The pt was administered the Quick Aphasia Battery (QAB) which aims to provide a reliable and multidimensional assessment of language function. The QAB is made up of eight subtests, each comprising sets of items that probe different language domains, vary in difficulty, and are scored with a graded system to maximize the informativeness of each item. From the eight subtests, eight summary measures are derived, which constitute a multidimensional profile of language function, quantifying strengths and weaknesses across core language domains. The pt scored as follows: Word comprehension: 10.00 Sentence comprehension: 8.75 Word findin.50 Grammatical construction: 8.75 Speech motor programmin. 00 Repetition: 9.17 Readin.67 QAB overall: 7.40 (Moderate impairment) Findings/Results Language Function Moderately impaired Cognitive Function Moderately-severely impaired Findings Pt presents with mild receptive aphasia and moderate fluent expressive aphasia. At least mild auditory comprehension deficits noted, primarily with increased complexity of information; unclear if impact of potential working memory deficits. Occasional benefit from repetition. Moderate deficits in the area of verbal expression noted c/b reduced verbal fluency 2/2 anomia, semantic paraphasias, false starts, and occasional omission of words at the discourse level. Additionally, pt demonstrates alexia ( decreased reading comprehension). Further assessment needed, though intact at the single word level. Further assessment of written expression needed, though indications of impairments at the single word level noted on this date (i.e ., unable to write own name or numbers). Pt would benefit from DESULPHURING OPERATOR services targeting use of word-finding strategies in order to enhance communication with medical team and family at current level of care. Pt demonstrated moderate- severe cognitive-communication impairment in the areas of orientation, attention, short- term and working memory, executive functioning, and word-finding. Pt is at an elevated risk of making critical errors with tasks such as medication management, time/schedule management, student financial aid manager, and completion of printer apprentice , as well as everyday tasks that require adequate skills in the areas of attention and immediate/delayed memory. Skilled DESULPHURING OPERATOR services with the goal of providing therapeutic education and training in the use of cognitive-communication compensatory strategies targeting attention and immediate and delayed memory for improved safety and independence at the next level of care are recommended. Cognitive Communication Deficits Self-awareness of Cognitive- Situational awareness ( Communication Deficits recognition of problem in context;in real time) Concomitant Factors Concomitant Factors Visual field neglect,Other ( comment) Comment Prior CVA Prognosis Prognosis Fair Based on Family support,Time since onset Plan of Care Speech-Language Treatment Yes Frequency x5/week Patient/Caregiver Education Patient expressed understanding of evaluation, Patient expressed agreement with goals and treatment plans ,Family/caregivers expressed understanding of evaluation, Family/caregivers expressed agreement with goals and treatment plan Short Term Goals 1. Patient will utilize compensatory word-finding strategies with 80% accuracy given min cueing to increase word-finding skills during simple conversational tasks. 2. Patient will utilize total communication in 80% of opportunities given moderate cueing in order to participate in communication about thoughts, ideas, opinions, and feelings, and meet daily needs and wants. 3. Patient will explore external compensatory strategies through education and application, in order to select 1-2 that are a best fit for daily needs (ex: calendar and memory book) in order to increase orientation and functional recall/ participation within current setting. Intermediate Goals 1. Patient will exhibit adequate cognitive- communication skills for discharge home with stand-by daily supervision using compensatory strategies as trained to facilitate safety and independence. 2. Patient will exhibit adequate communication for basic social, emotional, and safety needs using compensatory strategies as trained to facilitate increased expressive language skills. Discharge Recommendations group home facility, Inpatient rehab facility
--- NOTE | 2024-05-10 15:31 | OT.IP.EVAL ---
Current Diagnoses Opioid dependence, uncomplicated (05/09/24) Bipolar disorder, unspecified (05/09/24) Attention-deficit hyperactivity disorder, unspecified type (05/09/24) Essential (primary) hypertension (05/09/24) Paroxysmal atrial fibrillation (05/09/24) Cerebral infarction due to unspecified occlusion or stenosis of left middle cerebral artery (05/09/24) Other cerebral infarction (05/09/24) Peripheral vascular disease, unspecified (05/09/24) Chronic obstructive pulmonary disease, unspecified (05/09/24) Sciatica, unspecified side (05/09/24) Chronic kidney disease, stage 3b (05/09/24) Urinary tract infection, site not specified (05/09/24) Aphasia (05/09/24) Past Medical History (Last Reviewed 05/10/24 @ 08:24 by Sesar Landrum MD) Abnormal Pap smear of cervix (~1956) ADD (attention deficit disorder) ADD (attention deficit disorder) Anemia Ankle pain Anxiety Arachnoiditis At high risk for cardiovascular disease (Unknown) Atrial fibrillation Bilirubin in urine Bipolar 1 disorder Cardiomegaly Cataracts, bilateral Cervical spine disease Chronic back pain CKD (chronic kidney disease) Class 1 obesity due to excess calories with body mass index (BMI) of 34.0 to 34.9 in adult COPD (chronic obstructive pulmonary disease) COVID Cystic fibrosis (~1956) Degenerative joint disease (DJD) of lumbar spine Depression Dysphagia Dysphagia Encounter for Medicare annual wellness exam Fibromyalgia Fibromyalgia Foot pain Foraminal stenosis of lumbar region Frequent falls GERD (gastroesophageal reflux disease) GI bleeding Heavy menstrual period Hyperlipidemia Hypertension Hypertensive heart and chronic kidney disease with heart failure and stage 1 through stage 4 chronic kidney disease, or unspecified chronic kidney disease Insomnia Kidney cysts Kidney stones Loss of voice Lumbar radiculopathy Osteoporosis Peripheral neuropathy Peripheral vascular disease of extremity with claudication Pneumonia Post traumatic stress disorder (PTSD) Raynaud's disease without gangrene Restless leg syndrome Rheumatoid arthritis Right leg injury Sacralization of lumbar vertebra Sciatica Scoliosis Screening for malignant neoplasm of colon Severe 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, without psychotic features (07/05/16) Skin cancer (~1996) SOB (shortness of breath) on exertion Stroke UTI (urinary tract infection) Venous stasis Vertigo (~1968) Surgical History (Last Reviewed 05/10/24 @ 08:24 by Sesar Landrum MD) History of back surgery History of hip replacement History of knee replacement (11/29/16) History of lumbar fusion History of neck surgery S/P total abdominal hysterectomy and bilateral salpingo-oophorectomy Status post appendectomy Status post bunionectomy (08/11/15) Status post cholecystectomy Status post tonsillectomy and adenoidectomy Status post tubal ligation Occupational Therapy Inpatient Evaluation/Re-Eval M1 PT/OT-IP Prior Functional Status Start: 05/10/24 15:06 Freq: NEEDED Status: Active Protocol: Document 05/10/24 15:07 [facility] (Rec: 05/10/24 15:31 [facility] [id number]) Medical Review Prior Functional Status Mobility and Gait Pt uses a 3ww at home. Activities of Daily Living and IADL's Pt has assist for all ADL and IADL's as needed. Prior Functional Level (Other details) Pt has someone at the house at all time and set caregiver that comes from 9-3 Tuesday through Fridays. Social History Household Members spouse,family,friend(s) Living Arrangements House Number of Floors (Floors) One Floor Number of Stairs To Enter/Railing? 4 steps with right rail. Home Environment Standard Height Toilet,Walk in Shower Home Equipment Shower Seat with Backrest,Hand Held Shower,Grab Bars Near Toilet,Grab Bars In Shower Additional Social History Comment Pt has a three wheeled walker. M2 OT-IP Current Condition Start: 05/10/24 15:06 Freq: Status: Active Protocol: Document 05/10/24 15:07 [facility] (Rec: 05/10/24 15:31 [facility] [id number]) Occupational Therapy Current Condition Current Condition Evaluation Date 05/10/24 Treatment Diagnosis Small left posterior temporal lobe CVA, UTI Diagnosis Onset Date 05/09/24 M3 OT- IP Subjective and Pain Start: 05/10/24 15:06 Freq: Status: Active Protocol: Document 05/10/24 15:07 [facility] (Rec: 05/10/24 15:31 [facility] [id number]) OT- Subjective Occupational Therapy Visit Type Type Initial Evaluation Visit Start Time 14:20 Visit Stop Time 15:04 Occupational Therapy Visit Comments Patient Comments Pt agreed to get up. Patient/Caregiver Goals To go home. OT Pain Assessment Pain When Pain Assessed At Rest Pain Present Pain Present Denied Pain M4 OT- IP ADL's Start: 05/10/24 15:06 Freq: Status: Active Protocol: Document 05/10/24 15:07 [facility] (Rec: 05/10/24 15:31 [facility] [id number]) OT [id number] Comments OT Self-Feeding Comments Pt coughing on water and educated to sit upright more. OT ADL-Grooming Comments OT Grooming Comments Pt able to wash her hands at the sink with CGA for balance with three wheeled walker. OT ADL-Oral Care Comments Oral Care Comments Not performed. OT ADL-Dressing General Eval Lower Body Dressing Ability Moderate Assistance Comments OT Dressing Comments Assist to help kaley brief over her feet and up over her hips . OT ADL-Toileting General Evaluation Toileting Ability Moderate Assistance Areas Needing Assistance Manage Clothing Comments OT Toileting Comments Pt's caregiver able to assist pt with good safety for needs. OT ADL-Bathing Comments OT Bathing Comments Pt will need assist. M5 OT- IP IADL's Start: 05/10/24 15:06 Freq: Status: Active Protocol: Document 05/10/24 15:07 [facility] (Rec: 05/10/24 15:31 [facility] [id number]) OT-Instrumental Activities of Daily Living Home Safety Awareness Home Safety Comments Pt is aware that she is unable to get her words out and will need assist at home. Medication Management Medication Management Comments Pt has Mediset at home. Money Management Money Management Caregiver Provides Assistance Meal Preparation Meal Preparation Caregiver Provides Assist Crane Service Technician Crane Service Technician Caregiver Provides Assist M6 OT- IP Functional Cognition Start: 05/10/24 15:06 Freq: Status: Active Protocol: Document 05/10/24 15:07 [facility] (Rec: 05/10/24 15:31 [facility] [id number]) Cognitive Factors Limiting Selfcare Function Cognitive Ability Level of Alertness Alert Patient Orientation Name,Place,Situation Attention Span Ability Capable of Focused Attention, Capable of Sustained Attention Ability to Follow Commands Able to Follow One Step Commands with Increased Time, Able to Follow One Step Commands with Repetition Memory Description Short Term Impaired Problem Solving Ability Needs Assist to Identify Solutions Cognitive Comments Cognitive Assessment Comments Pt initially not able to get her words out and by the end of the session able to complete few word sentences and recall her caregiver's name. Pt however as pt gets frustrated, gets her words mixed up or perseverates on what was said before. Able to give pt pictures to help communicate especially at home . Educated pt's caregiver to help educate other people in the house how to best help her as Summer, the caregiver in very use to her routine and aware of her wants and needs. Pt needing concrete verbal cues to follow. OT- Vision and Hearing OT- Hearing Assessment OT- Hearing Assessment WFL OT- Vision Assessment Visual Acuity WFL Visual Attentiveness WFL Occular Pursuits WFL Visual Salcedo WFL M7 OT- IP Mobility and Balance Start: 05/10/24 15:06 Freq: Status: Active Protocol: Document 05/10/24 15:07 [facility] (Rec: 05/10/24 15:31 [facility] [id number]) OT- Bed Mobility Assessment Supine to Sit Supine to Sit Assist Standby Assistance Sit to Supine Sit to Supine Assist Standby Assistance OT-Transfer Assessment Sit to and From Stand Sit to and from Stand Contact Guard Assistance Transfers Transfer Ability Contact Guard Assistance Technique Transfer Destination Bed,Toilet Transfer Technique Stand Step Pivot Devices Transfer Assistive Devices Gait Belt Orthotic/Prosthetic Devices or Brace: No Comments Mobility Comments Pt uses a 3ww.Pt per caregiver typically lean to the right and slow to ambulate. Educated to caregiver to assist pt by the gait belt versus holding onto her arm. OT- Balance Assessment Sitting Balance and Reactions Static Sitting Balance Ability good Dynamic Sitting Balance Ability Fair Standing Balance and Reactions Static Standing Balance Ability Fair Dynamic Standing Balance Ability Poor+ M8 OT- IP Objective Assessments Start: 05/10/24 15:06 Freq: Status: Active Protocol: Document 05/10/24 15:07 [facility] (Rec: 05/10/24 15:31 [facility] [id number]) OT Gross Range of Motion Upper Extremity Range of Motion ROM Impairments grossly WFL OT Strength Upper Extremity Strength Assessment Within Functional Limits OT- Coordination Assessment Upper Extremity Finger to Nose Test Within Functional Limits M9 OT- IP Assessment and Plan Start: 05/10/24 15:06 Freq: Status: Active Protocol: Document 05/10/24 15:07 [facility] (Rec: 05/10/24 15:31 [facility] [id number]) OT Summary Assessment and Plan Potential Rehabilitation Potential Good Analytic Complexity at Evaluation Moderate Summary OT Impairments Balance,Functional Mobility, Grooming,Dressing,Toileting, Bathing,Toilet Transfers, Shower Transfers,Activity Tolerance Progress Towards Goals Progressing Toward Goals,Slow Progress due to Cognition Assessment Summary Pt MOD complexity and main barriers are getting her words out, STM, and decreased activity tolerance and balance . Pt's caregiver present and feels that physically pt is at her baseline and mainly just having memory and cognitive needs from the CVA. Pt will benefit from home health and assist 24/7 at home. Goals Grooming Goal Standby Assistance Dressing Goal Standby Assistance Toileting Goal Standby Assistance Bathing Goal Minimal Assistance Toilet Transfer Goal Standby Assistance Shower Transfer Goal Contact Guard Assistance Days to Meet Goals 5 Frequency of Treatment Other frequency 5x/week Treatment Plan OT Treatment Plan ADL Training,Functional Cognition Training,Functional Mobility,Patient/Family Education,Discharge Planning Discharge Recommendations OT Discharge Recommendations Home with 24/7 Assist Available,Home Health Home Equipment Needs BS? Transportation Needs at Discharge Private Vehicle
--- NOTE | 2024-05-10 15:56 | PT.IIE ---
Current Diagnoses Opioid dependence, uncomplicated (05/09/24) Bipolar disorder, unspecified (05/09/24) Attention-deficit hyperactivity disorder, unspecified type (05/09/24) Essential (primary) hypertension (05/09/24) Paroxysmal atrial fibrillation (05/09/24) Cerebral infarction due to unspecified occlusion or stenosis of left middle cerebral artery (05/09/24) Other cerebral infarction (05/09/24) Peripheral vascular disease, unspecified (05/09/24) Chronic obstructive pulmonary disease, unspecified (05/09/24) Sciatica, unspecified side (05/09/24) Chronic kidney disease, stage 3b (05/09/24) Urinary tract infection, site not specified (05/09/24) Aphasia (05/09/24) Surgical History (Last Reviewed 05/10/24 @ 08:24 by Sesar Landrum MD) History of back surgery History of hip replacement History of knee replacement (11/29/16) History of lumbar fusion History of neck surgery S/P total abdominal hysterectomy and bilateral salpingo-oophorectomy Status post appendectomy Status post bunionectomy (08/11/15) Status post cholecystectomy Status post tonsillectomy and adenoidectomy Status post tubal ligation Medical History (Last Reviewed 05/10/24 @ 08:24 by Sesar Landrum MD) Abnormal Pap smear of cervix (~1956) ADD (attention deficit disorder) ADD (attention deficit disorder) Anemia Ankle pain Anxiety Arachnoiditis At high risk for cardiovascular disease (Unknown) Atrial fibrillation Bilirubin in urine Bipolar 1 disorder Cardiomegaly Cataracts, bilateral Cervical spine disease Chronic back pain CKD (chronic kidney disease) Class 1 obesity due to excess calories with body mass index (BMI) of 34.0 to 34.9 in adult COPD (chronic obstructive pulmonary disease) COVID Cystic fibrosis (~1956) Degenerative joint disease (DJD) of lumbar spine Depression Dysphagia Dysphagia Encounter for Medicare annual wellness exam Fibromyalgia Fibromyalgia Foot pain Foraminal stenosis of lumbar region Frequent falls GERD (gastroesophageal reflux disease) GI bleeding Heavy menstrual period Hyperlipidemia Hypertension Hypertensive heart and chronic kidney disease with heart failure and stage 1 through stage 4 chronic kidney disease, or unspecified chronic kidney disease Insomnia Kidney cysts Kidney stones Loss of voice Lumbar radiculopathy Osteoporosis Peripheral neuropathy Peripheral vascular disease of extremity with claudication Pneumonia Post traumatic stress disorder (PTSD) Raynaud's disease without gangrene Restless leg syndrome Rheumatoid arthritis Right leg injury Sacralization of lumbar vertebra Sciatica Scoliosis Screening for malignant neoplasm of colon Severe 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, without psychotic features (07/05/16) Skin cancer (~1996) SOB (shortness of breath) on exertion Stroke UTI (urinary tract infection) Venous stasis Vertigo (~1968) Physical Therapy Inpatient Evaluation/Re-Eval M1 PT/OT-IP Prior Functional Status Start: 05/10/24 15:06 Freq: NEEDED Status: Active Protocol: Document 05/10/24 15:25 [facility] (Rec: 05/10/24 15:56 [facility] [id number]) Medical Review Prior Functional Status Medical History Reviewed Yes Communication Do not know baseline communication or diet, pt has word-finding trouble today and does not answer questions correctly Mobility and Gait Pt uses a 3ww at home. Activities of Daily Living and IADL's Pt has assist for all ADL and IADL's as needed. Prior Functional Level (Other details) Pt has someone at the house at all time and set caregiver that comes from 9-3 Tuesday through Fridays. Social History Household Members spouse,family,friend(s) Living Arrangements House Number of Floors (Floors) One Floor Number of Stairs To Enter/Railing? 4 steps with right rail. Home Environment Standard Height Toilet,Walk in Shower Home Equipment Shower Seat with Backrest,Hand Held Shower,Grab Bars Near Toilet,Grab Bars In Shower Additional Social History Comment Pt has a three wheeled walker. M2 PT-IP Current Condition Start: 05/10/24 13:30 Freq: NEEDED Status: Active Protocol: Document 05/10/24 15:25 [facility] (Rec: 05/10/24 15:56 [facility] [id number]) Physical Therapy Current Condition Current Condition Evaluation Date 05/10/24 Treatment Diagnosis L temporal stroke M3 PT-IP Subjective Start: 05/10/24 13:30 Freq: NEEDED Status: Active Protocol: Document 05/10/24 15:25 [facility] (Rec: 05/10/24 15:56 [facility] [id number]) Subjective Physical Therapy Visit Type Type Initial Evaluation Visit Start Time 15:25 Visit Stop Time 15:36 Number of DIVEMASTER Visits 0 Physical Therapy Visit Comments Patient Comments Pt with trouble with word- finding and does not answer questions accurately or at least caregiver answers most questions differently than pt Therapy Pain Assessment Pain When Pain Assessed At Rest Pain Present Pain Present Denied Pain M4 PT-IP Mobility and Gait Start: 05/10/24 13:30 Freq: NEEDED Status: Active Protocol: Document 05/10/24 15:25 [facility] (Rec: 05/10/24 15:56 [facility] [id number]) PT-Bed Mobility Assessment Rolling Level of Assist Contact Guard Assistance,1 Person Assistance Supine to Sit Supine to Sit Minimal Assistance,1 Person Assistance,Head of Bed Elevated,Bedrails Sit to Supine Sit to Supine Minimal Assistance,1 Person Assistance,Head of Bed Elevated,Bedrails PT-Transfer Assessment Sit to and From Stand Sit to and from Stand Minimal Assistance Equipment Transfer Assistive Device Gait Belt Orthotic/Prosthetic Devices or Brace: No Transfers Transfer Destination Bed Transfer Technique Stepping Transfer Ability Level of Assist Minimal Assistance,1 Person Assistance,Use of Upper Extremities Comments Mobility Comments Caregiver tends to step in when PT asks caregiver to let PT see what pt can do for herself. Caregiver assists with walker and moving pt's legs. PT cues pt to lock and unlock 3WW and caregiver states that she always does this for pt when she is working with her Gait Assessment Gait Gait Assistance Required: Contact Guard Assist,1 Person Assist Distance (Feet) 10 Able to Maintain Weight Bearing Status Yes During Gait Assistive Devices Assistive Device Gait Belt Orthotic/Prosthetic Devices or Brace: No Gait Deviations General Gait Pattern Antalgic,Decreased Stride Length,Decreased Feet Clearance,Flexed Trunk,Step-to Gait Factors Limiting Gait Function Factors Limiting Gait Function Decreased Activity Tolerance, Decreased Strength,Difficulty Following Directions, Incoordination,Limited Range of Motion,Poor Balance,Poor Safety Awareness Comments Gait Comments Pt gait trains with her 3WW 10 'x2 and she has right lean d/t scoliotic changes, pelvic obliquities and functional leg length changes, poor scanning to left and cues for stepping , turning, and finding chair, cues for turning and lock and unlock walker and PT must assist as pt does not do this and caregiver frequently stepping in PT-Balance Assessment Sitting Balance and Reactions Static Sitting Balance Ability Fair Dynamic Sitting Balance Ability Fair Standing Balance and Reactions Static Standing Balance Ability Fair Dynamic Standing Balance Ability Fair Device Used 3WW M5 PT-IP Objective Assessments Start: 05/10/24 13:30 Freq: NEEDED Status: Active Protocol: Document 05/10/24 15:25 [facility] (Rec: 05/10/24 15:56 [id number]) Orientation Orientation/Cognition Comments OT and SLABBING MACHINE OPERATOR perform assessment given aphasia and poor word- finding Gross Range of Motion Upper Extremity ROM Impairments Defer to OT Lower Extremity ROM Assessment Within Functional Limits Strength Lower Extremity Strength Assessment Within Functional Limits Coordination Assessment Gross Coordination Gross Coordination Impaired Assessment Foot Tapping Test Minimal Impairment Heel on Lamb Test Minimal Impairment Coordination Comments Heel to lamb right on left leg more impaired than opposite Toe tapping test more impaired on right compared to left Sensation Assessment Comments Sensation Comments Pt denies paresthesias Muscle Tone Muscle Tone WNL Yes M6 PT-IP Treatment Start: 05/10/24 13:30 Freq: NEEDED Status: Active Protocol: Document 05/10/24 15:25 [facility] (Rec: 05/10/24 15:56 [id number]) Physical Therapy Treatment Education Education Provided Safety Other Treatments Other Treatment Performed Ed pt and caregiver on need to have pt lock 3WW every time before sitting and unlock it once standing, preparing for gait and NOT having the caregiver do this...ed caregiver to cue M7 PT-IP Assessment and Plan Start: 05/10/24 13:30 Freq: NEEDED Status: Active Protocol: Document 05/10/24 15:25 [facility] (Rec: 05/10/24 15:56 [id number]) PT Summary Assessment and Plan Potential Rehabilitation Potential Good Status of Condition at Evaluation Evolving Summary Impairments ROM,Strength,Balance, Coordination,Cognition,Bed Mobility,Transfers,Gait, Activity Tolerance Progress Towards Goals Progressing Toward Goals Assessment Summary Pt is a lady whose caregiver reports has baseline left leg weakness and scoliosis. Caregiver tends to step in to move pt's left leg and lock and unlock walker and PT asks for pt to be able to do these tasks. Caregiver training in acute and HH will be good for pt in the long-term. Pt presents with aphasia that makes communication and cognition challenging today. LE strength is functional and she has some coordination challenges. She will benefit from acute and post-acute PT to improve functional I and safety. Caregiver states pt wishes to go home and not to rehab. Goals Bed Mobility Goal Standby Assistance Transfer Goal Standby Assistance Gait Goal Standby Assistance Gait Distance 75 Other Goals Use of 3WW for gait Pt will ascend and descend 4 steps with right rail ascend and no more than CGA to allow safe home entry. Days to Meet Goals 3 Frequency of Treatment Frequency Of Treatment Once a Day Treatment Plan Physical Therapy Treatment Plan Bed Mobility Training,Transfer Training,Gait Training, Therapeutic Exercise,Balance Retraining,Discharge Planning, Hot or Cold Pack,Neuromuscular Re-ed,Coordination Retraining ,Manual Therapy Precautions Other Precautions Fall risk, aphasia Weight Bearing Status Allowed Weight Bearing Amount (enter % No restrictions or #) (%) Recommendations To Nursing Amount of Assist Needed 1 Person Assist Discharge Recommendations PT Discharge Recommendations Home with 28/03 Assist Available,Home Health Transportation Needs at Discharge Private Vehicle
[2024-05-10] MEDS: BUPRENORPHINE/NALOXONE 8MG/2MG 1 TAB SL (20:18)
[2024-05-11] VITALS (9 sets, daily range): BP systolic 125–137; BP diastolic 79–90; PULSE 61–66; RESP 16–20; TEMP 36.8–37; O2SAT 91–99
[2024-05-11 05:00] LABS: Add Manual Diff / Slide Review NO; Basophils Absolute Auto 0 /uL (0-100); Basophils Percent Auto 0.5 % (0-2); Eosinophils Absolute Auto 300 /uL (0-450); Eosinophils Percent Auto 3.8 % (2-4); Hematocrit 32.6 % (36-46); Hemoglobin 10.9 g/dL (12.0-16.0); Lymphocytes Absolute Auto 1200 /uL (1100-4500); Lymphocytes Percent Auto 17.7 % (25-40); Mean Corpuscular HGB Conc 33.3 % (30-36); Mean Corpuscular Hemoglobin 28.5 PG (26-34); Mean Corpuscular Volume 85.4 fL (80-100); Monocytes Absolute Auto 500 /uL (0-900); Monocytes Percent Auto 7.5 % (3-14); Neutrophils Absolute Auto 4900 /uL (1500-7000); Neutrophils Percent Auto 70.5 % (50-75); Platelet Count 182 X10^3/uL (150-400); Red Blood Cell Count 3.82 X10^6/uL (4.0-5.2); Red Cell Distribution Width 14.3 % (11.6-14.8); White Blood Cell Count 6.9 X10^3/uL (4.5-11.0)
[2024-05-11 05:24] LABS: Blood Urea Nitrogen 25 mg/dL (7-17); Calcium 9.3 mg/dL (8.4-10.2); Carbon Dioxide 27 mmol/L (22-32); Chloride 106 mmol/L (98-107); Estimated Glomerular Filt Rate 39 mL/min (>60); Glucose 96 mg/dL (80-110); HEMOLYSIS < 15 (0-50); Magnesium 2.2 mg/dL (1.6-2.3); Potassium 3.8 mmol/L (3.4-5.1); Sodium 139 mmol/L (137-145)
[2024-05-11] MEDS: cefTRIAXone 1,000 MG in SODIUM CHLORIDE 0.9% 100 ML 200 MG IV (08:13)
[2024-05-11] MEDS: carvediloL 12.5 MG TABLET PO (08:14)
[2024-05-11] MEDS: SPIRONOLACTONE 25 MG TABLET PO (08:14)
[2024-05-11] MEDS: DULOXETINE 30 MG CAPSULE 60 MG PO (08:14)
[2024-05-11] MEDS: APIXABAN 5 MG TABLET PO (08:14)
[2024-05-11] MEDS: BUPRENORPHINE/NALOXONE 8MG/2MG 1 TAB 1.5 TAB SL (08:14)
--- NOTE | 2024-05-11 10:15 | OT.IP.TRT ---
Current Diagnoses Opioid dependence, uncomplicated (05/09/24) Bipolar disorder, unspecified (05/09/24) Attention-deficit hyperactivity disorder, unspecified type (05/09/24) Essential (primary) hypertension (05/09/24) Paroxysmal atrial fibrillation (05/09/24) Cerebral infarction due to unspecified occlusion or stenosis of left middle cerebral artery (05/09/24) Other cerebral infarction (05/09/24) Peripheral vascular disease, unspecified (05/09/24) Chronic obstructive pulmonary disease, unspecified (05/09/24) Sciatica, unspecified side (05/09/24) Chronic kidney disease, stage 3b (05/09/24) Urinary tract infection, site not specified (05/09/24) Aphasia (05/09/24) Occupational Therapy Treatment Note M2 OT-IP Current Condition Start: 05/10/24 15:06 Freq: Status: Active Protocol: Document 05/10/24 15:07 [facility] (Rec: 05/10/24 15:31 [facility] [id number]) Occupational Therapy Current Condition Current Condition Evaluation Date 05/10/24 Treatment Diagnosis Small left posterior temporal lobe CVA, UTI Diagnosis Onset Date 05/09/24 M3 OT- IP Subjective and Pain Start: 05/10/24 15:06 Freq: Status: Active Protocol: Document 05/11/24 10:24 [facility] (Rec: 05/11/24 10:32 [facility] [id number]) OT- Subjective Occupational Therapy Visit Type Type Treatment Note Visit Start Time 09:45 Visit Stop Time 10:24 Occupational Therapy Visit Comments Patient Comments Pt agreed to get up to use the bathroom. Patient/Caregiver Goals TO go home. OT Pain Assessment Pain When Pain Assessed At Rest Pain Present Pain Present Denied Pain M4 OT- IP ADL's Start: 05/10/24 15:06 Freq: Status: Active Protocol: Document 05/11/24 10:24 [facility] (Rec: 05/11/24 10:32 [facility] [id number]) OT [id number] Comments OT Self-Feeding Comments Not at meal time. OT ADL-Grooming General Evaluation Areas Needing Assistance Combing/Brushing Hair Comments OT Grooming Comments Assist to braid her hair, pt able to brush her hair while seated. OT ADL-Dressing General Eval Lower Body Dressing Ability Minimal Assistance Areas Needing Assistance Underpants/Brief,Socks Comments OT Dressing Comments Assist for socks and CGA while pt pulling up the brief over her hips. OT ADL-Toileting General Evaluation Toileting Ability Contact Guard Assistance Comments OT Toileting Comments Pt able to wipe appropriately after cues but will probably need assist for completeness after bowel movement. OT ADL-Bathing Comments OT Bathing Comments Pt will need assist. M5 OT- IP IADL's Start: 05/10/24 15:06 Freq: Status: Active Protocol: Document 05/10/24 15:07 [facility] (Rec: 05/10/24 15:31 [facility] [id number]) OT-Instrumental Activities of Daily Living Home Safety Awareness Home Safety Comments Pt is aware that she is unable to get her words out and will need assist at home. Medication Management Medication Management Comments Pt has Mediset at home. Money Management Money Management Caregiver Provides Assistance Meal Preparation Meal Preparation Caregiver Provides Assist On Call On Call Caregiver Provides Assist M6 OT- IP Functional Cognition Start: 05/10/24 15:06 Freq: Status: Active Protocol: Document 05/11/24 10:24 [facility] (Rec: 05/11/24 10:32 [facility] [id number]) Cognitive Factors Limiting Selfcare Function Cognitive Ability Level of Alertness Alert Patient Orientation Name,Place,Situation Attention Span Ability Capable of Focused Attention, Capable of Sustained Attention Ability to Follow Commands Able to Follow One Step Commands with Increased Time, Able to Follow One Step Commands with Repetition Memory Description Short Term Impaired Cognitive Comments Cognitive Assessment Comments Pt doing better to get her words out however pt still having difficulty with her memory. Pt able to state her wants and needs with increased time.Pt needing cues to wipe during toileting needs and cues for safety to push up from the recliner to stand. M7 OT- IP Mobility and Balance Start: 05/10/24 15:06 Freq: Status: Active Protocol: Document 05/11/24 10:24 [facility] (Rec: 05/11/24 10:32 [facility] [id number]) OT-Transfer Assessment Sit to and From Stand Sit to and from Stand Contact Guard Assistance Transfers Transfer Ability Standby Assistance,Contact Guard Assistance Technique Transfer Destination Chair,Toilet Transfer Technique Stand Step Pivot Devices Transfer Assistive Devices Gait Belt Comments Mobility Comments Pt uses a 3ww. Pt needing from CGA to close SBA today and much steadier on her feet. OT- Balance Assessment Sitting Balance and Reactions Static Sitting Balance Ability Good Dynamic Sitting Balance Ability Fair Standing Balance and Reactions Static Standing Balance Ability Fair Dynamic Standing Balance Ability Fair M8 OT- IP Objective Assessments Start: 05/10/24 15:06 Freq: Status: Active Protocol: Document 05/10/24 15:07 [facility] (Rec: 05/10/24 15:31 [facility] [id number]) OT Gross Range of Motion Upper Extremity Range of Motion ROM Impairments grossly WFL OT Strength Upper Extremity Strength Assessment Within Functional Limits OT- Coordination Assessment Upper Extremity Finger to Nose Test Within Functional Limits M9 OT- IP Assessment and Plan Start: 05/10/24 15:06 Freq: Status: Active Protocol: Document 05/11/24 10:24 [facility] (Rec: 05/11/24 10:32 [facility] [id number]) OT Summary Assessment and Plan Potential Rehabilitation Potential Good Analytic Complexity at Evaluation Moderate Summary OT Impairments Balance,Functional Mobility, Grooming,Dressing,Toileting, Bathing,Toilet Transfers, Shower Transfers,Activity Tolerance Progress Towards Goals Progressing Toward Goals,Slow Progress due to Cognition Assessment Summary Pt able to get her words out better and able to recall her caregiver's name after increased time. Pt able to use the toilet and do grooming needs while seated at the sink . Call light placed next to pt and also chair alarm as pt still a times confused adn forgetful. Pt to go home with 28/03 assist and home health. Goals Grooming Goal Independent Dressing Goal Standby Assistance Toileting Goal Standby Assistance Bathing Goal Standby Assistance Toilet Transfer Goal Independent Shower Transfer Goal Standby Assistance Days to Meet Goals 5 Frequency of Treatment Other frequency 5x/week Treatment Plan OT Treatment Plan ADL Training,Functional Cognition Training,Functional Mobility,Patient/Family Education,Discharge Planning Discharge Recommendations OT Discharge Recommendations Home with 28/03 Assist Available,Home Health Home Equipment Needs BSC? Transportation Needs at Discharge Private Vehicle
--- NOTE | 2024-05-11 12:05 | PT-IP ANOTE ---
checked on pt but pt in with [facility] and taking a shower and not available for PT. will f/u.
[2024-05-11] MEDS: ACETAMINOPHEN 325 MG TABLET 975 MG PO (12:45)
--- NOTE | 2024-05-11 13:25 | PM.DS.1 ---
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 She has no additional deficits. Urine appears infected, borderline hypertensive. Discharge Providers Provider Date of admission: 05/09/24 16:28 Discharge Date: 05/11/24 Primary care physician: HAMZAH Navas Consults: 05/09/24 17:38 Consult to Speech Therapy Evaluate & Treat Comment: Physician Instructions: Evaluate and treat 05/10/24 11:31 Consult to Occupational Therapy Evaluate & Treat Comment: Physician Instructions: Evaluate and treat Consult to Physical Therapy Evaluate & Treat Comment: Physician Instructions: Evaluate and Treat 05/11/24 10:45 Consult to Home Health Routine Comment: Reason For Exam: home health services upon discharge Discharge provider: Sesar Landrum MD Summary Hospital Course Discharge Diagnosis: 1. Acute Ischemic Lt posterior temporal lobe CVA with expressive aphasia, present on admission and improved. 2. HTN, present on admission and active 3. CKD 3, present on admission and active 4. Chronic Back Pain, present on admission and active 5. Opioid Dependence, present on admission and active 6. Bipolar Disorder, ADD, PTSD. Present on admission and active 7. COPD. Present on admission and active 8. UTI, present on admission and improved. Hospital Course: The patient was admitted with a stroke syndrome with that had a deficit of expressive aphasia. Imaging indicated a cortical left posterior parietal stroke. She was on chronic apixaban and there is no clear evidence of medication noncompliance. The patient had no other motor deficits and did well with PT and OT. Her apixaban was continued. The patient was seen by speech and her expressive aphasia was improving day by day. The time of discharge her swallow was assessed is safe and she was agreeable to discharge home with home health including therapies and speech therapy. There was no clear indication to add antiplatelet therapy to her apixaban. This point she will continue apixaban and we will add high dose atorvastatin. In addition, she was treated for a urinary tract infection and we will complete several more days of oral antibiotics at home. Status at Discharge Cognitive/behavioral status at discharge: oriented Functional status at discharge: independent ambulation Overall status at discharge: patient is progressing back to baseline Time Spent with Patient Time spent: Greater than 30 minutes Exam Vital Signs (past 8 hours): - 05/11/24 07:00 05/11/24 08:00 05/11/24 08:14 Temperature 98.6 F 98.6 F Pulse Rate 66 66 66 Respiratory Rate 16 16 Blood Pressure 134/90 134/90 134/90 Pulse Oximetry 99 95 Oxygen Delivery Method Oxygen Flow Rate 0 05/11/24 09:00 05/11/24 12:00 Temperature 98.2 F Pulse Rate 63 Respiratory Rate 20 Blood Pressure 137/79 Pulse Oximetry 95 94 Oxygen Delivery Method Room Air Oxygen Flow Rate 0 Oxygen Delivery Method Room Air Oxygen Flow Rate 0 Narrative Exam Narrative: NAD, alert and oriented. Fluent speech. Lungs are clear, normal rate and effort. Heart is regular, no murmur gallop or rub. Abdomen is soft, non distended. Extremities are free of edema. Mild expressive aphasia which is improved over yesterday. Normal cranial nerves, and normal motor strength in all extremities. Her gait is also normal and stable. Objective ECG Impression: Rate: 62 P: 117 ID: [id number] QRS: 15 QRSD: 82 T: 24 QT: 398 QTc: 403 Interpretive Statements Sinus rhythm with occasional premature ventricular complexes Septal infarct , age undetermined Imaging Multiple studies:: Radiologist's impression: CTA head and neck: No significant intracranial arterial abnormality is seen. No significant abnormality is seen within the arteries of the neck. Interval development a small solid component in a part solid nodule in the left upper lobe. Recommend six-month follow-up per consensus guidelines. CT brain: No acute intracranial pathology. MRI brain: 1. Subtle acute small focal infarct in the posterior medial left temporal lobe. 2. Age-related volume loss and moderate to severe small vessel ischemic change. ECHO 04/17/24: normal EF of 55-60%, a dilated left atrium, mild mitral regurgitation, mild tricuspid regurgitation, and an enlarged ascending aorta at 3.8 cm. No PFO was noted. Labs 05/11/24 04:52 05/11/24 04:52 Labs: Laboratory Results - last 24 hr 05/11/24 04:52 WBC 6.9 RBC 3.82 L Hgb 10.9 L Hct 32.6 L MCV 85.4 MCH 28.5 MCHC 33.3 RDW 14.3 Plt Count 182 Neut % (Auto) 70.5 Lymph % (Auto) 17.7 L [place] % (Auto) 7.5 Eos % (Auto) 3.8 Baso % (Auto) 0.5 Neut # (Auto) 4900 Lymph # (Auto) 1200 [place] # (Auto) 500 Eos # (Auto) 300 Baso # (Auto) 0 Sodium 139 Potassium 3.8 Chloride 106 Carbon Dioxide 27 BUN 25 H Creatinine 1.39 H Estimated GFR 39 L BUN/Creatinine Ratio 18.0 Glucose 96 Calcium 9.3 Magnesium 2.2 PFSH Medical History Bipolar 1 disorder Insomnia At high risk for cardiovascular disease (Unknown) Hyperlipidemia Severe 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, without psychotic features (07/05/16) Lumbar radiculopathy Hypertensive heart and chronic kidney disease with heart failure and stage 1 through stage 4 chronic kidney disease, or unspecified chronic kidney disease Cardiomegaly CKD (chronic kidney disease) ADD (attention deficit disorder) Peripheral vascular disease of extremity with claudication Kidney cysts Sacralization of lumbar vertebra Foraminal stenosis of lumbar region COVID SOB (shortness of breath) on exertion Class 1 obesity due to excess calories with body mass index (BMI) of 34.0 to 34.9 in adult Depression ADD (attention deficit disorder) Dysphagia Frequent falls Sciatica Loss of voice Dysphagia Encounter for Medicare annual wellness exam Screening for malignant neoplasm of colon COPD (chronic obstructive pulmonary disease) Right leg injury UTI (urinary tract infection) Bilirubin in urine Raynaud's disease without gangrene Peripheral neuropathy Venous stasis Rheumatoid arthritis Fibromyalgia Pneumonia Cystic fibrosis (~1956) Post traumatic stress disorder (PTSD) Anxiety Arachnoiditis Stroke Restless leg syndrome Scoliosis Osteoporosis Degenerative joint disease (DJD) of lumbar spine Foot pain Fibromyalgia Chronic back pain Cervical spine disease Ankle pain Anemia Vertigo (~1968) Cataracts, bilateral Heavy menstrual period Abnormal Pap smear of cervix (~1956) Kidney stones GI bleeding GERD (gastroesophageal reflux disease) Skin cancer (~1996) Hypertension Atrial fibrillation Surgical History History of lumbar fusion History of neck surgery History of back surgery History of knee replacement (11/29/16) Status post bunionectomy (08/11/15) History of hip replacement S/P total abdominal hysterectomy and bilateral salpingo-oophorectomy Status post tonsillectomy and adenoidectomy Status post tubal ligation Status post cholecystectomy Status post appendectomy Social History marital status: household members: spouse, family and friend(s) Smoking Status: Former smoker alcohol intake: never substance use type: does not use Discharge Assessment & Plan Assessment and Plan Assessment: 1. Acute Ischemic Lt posterior temporal lobe CVA with expressive aphasia, present on admission and improved. 2. HTN, present on admission and active 3. CKD 3, present on admission and active 4. Chronic Back Pain, present on admission and active 5. Opioid Dependence, present on admission and active 6. Bipolar Disorder, ADD, PTSD. Present on admission and active 7. COPD. Present on admission and active 8. UTI, present on admission and improved. Plan of Treatment: Patient was discharged home with the addition of atorvastatin 80 mg daily on cephalexin 500 q.i.d. for 3 additional days to her chronic medications which include apixaban. Home health is initiated with home therapies including speech. PCP follow up within 6 days is recommended. Discharge Plan Discharge Plan Patient Disposition: Home Provider Discharge Comment: Stable for discharge home with home health services including speech therapy. Discharge orders & Medications Prescriptions: New atorvastatin 80 mg tablet 80 mg PO QPM Qty: 30 2RF cephalexin 500 mg capsule 500 mg PO QID Qty: 12 0RF Continued carvedilol 12.5 mg tablet 12.5 mg PO BID dapagliflozin propanediol 10 mg tablet 10 mg PO DAILY tiotropium-olodaterol 2.5-2.5 mcg/actuation mist 2 puff inhalation BID Qty: 4 0RF (DME) Disabled Parking Permit Qty: 1 0RF Rx Instructions: I find this person to be disabled nitroglycerin 0.4 mg tablet, sublingual See Rx Instructions .ROUTE .COMPLEX Qty: 25 1RF Dose Instruction: Dissolve 1 tablet under tongue every 5-15 minutes up to 3 times for chest pain. If persists, call 911. Rx Instructions: Dissolve 1 tablet under tongue every 5-15 minutes up to 3 times for chest pain. If persists, call 911. duloxetine 60 mg capsule,delayed release(DR/EC) 60 mg PO DAILY Qty: 90 3RF Rx Instructions: Take 1 cap at bedtime daily for depression dextroamphetamine-amphetamine 20 mg tablet See Rx Instructions .ROUTE .COMPLEX Qty: 60 0RF Rx Instructions: Take 1 tab by mouth twice per day 4-6 hours apart May fill on or after 03/31/24 bupropion HCl 200 mg tablet sustained-release 12 hr 200 mg PO DAILY Qty: 90 3RF Disabled Parking Permit See Rx Instructions .ROUTE .COMPLEX Qty: 1 0RF Rx Instructions: I find this patient to be medically disabled and qualify for disabled parking as indicated and signed on the accompanying disabled parking application for individuals. zaleplon 10 mg capsule 20 mg PO BEDTIME PRN (Reason: sleep) Qty: 180 3RF Rx Instructions: must avoid high-fat meal/food immediately before taking dose tirzepatide 7.5 mg/0.5 mL pen injector 7.5 mg SUBCUT QWEEK Qty: 2 0RF Rx Instructions: Inject weekly SQ x 4 weeks Eliquis 5 mg tablet 5 mg PO BID Qty: 200 3RF Rx Instructions: Take 1 tab twice per day for anticoagulation naloxone 0.4 mg/mL syringe 0.4 mg IM Q2M PRN (Reason: opioid reversal) Qty: 3 3RF Rx Instructions: NTExceed 10 mg total dose/episode lidocaine 5 % adhesive patch,medicated 2 patch topical DAILY PRN (Reason: pain) Qty: 60 3RF Rx Instructions: leave on most painful areas for up to 12 hrs methocarbamol 750 mg tablet 750 mg PO Q8H PRN (Reason: muscle spasms) Qty: 90 4RF amlodipine 5 mg tablet 5 mg PO DAILY Circulation and pain relief are compression foot and calf boot See Rx Instructions .ROUTE .COMPLEX Qty: 2 0RF Rx Instructions: Wear on bilateral legs for 1-2 hours 2-3 times per day for edema and leg pain; acetaminophen [Tylenol Extra Strength] 500 mg tablet 1,000 mg PO TID PRN (Reason: Pain (Scale Score 1-3)) Rx Instructions: Not to exceed 3000mg/24 hours spironolactone 25 mg tablet 25 mg PO DAILY Qty: 90 3RF Rx Instructions: Take 1 tab daily for lower extremity swelling buprenorphine-naloxone [Suboxone] 12-3 mg film 2 film buccal Q24H Qty: 60 3RF Rx Instructions: place 2 strip/tab under (each) side of tongue daily for pain relief furosemide 40 mg tablet 40 mg PO QAM PRN (Reason: edema) Mounjaro 7.5 mg/0.5 mL pen injector 7.5 mg SUBCUT QWEEK Patient Comments: [NO ORIGINAL SIG] Follow up/Referrals: Yvonne Calabrese ARNP [Primary Care Provider] - Diet/Activity/Treatments Diet: Carb-consistent/Diabetic Activity: As tolerated. Visit Report/Discharge Packet Instructions: DI for Stroke-Ischemic, DI for Urinary Tract Infection (UTI), Left Brain Stroke, Atorvastatin, Cephalexin Stand Alone Forms: Patient Portal/API, Stroke Signs & Symptoms Discharge Data Primary Care Provider: Yvonne Calabrese
--- NOTE | 2024-05-11 14:27 | ST.IPTN ---
Visit Care Team Role Provider Type HAMZAH Navas Family Provider Advanced Smoke And Flame Specialist Primary Care Provider Address: [address] [place] [address], [id number] Geovany Brewster MD Emergency Provider Physician Referring Provider Address: [address] [place] [address], [phone] Fax: Austyn Meehan DO Admit Provider Physician Attending Provider Address: [address] [place] [address], [id number] VETERANS ADVISER Treatment Note VETERANS ADVISER Treatment Note Start: 05/10/24 10:05 Freq: Status: Discharge Protocol: Document 05/11/24 13:55 SS (Rec: 05/11/24 14:10 SS [id number]) Speech Pathology Treatment Note Session Time Visit Start Time 11:18 Visit Stop Time 11:59 Total Visit Minutes 41 Visit Information Visit Number 1 Insurance Information [facility] Setting Treatment Setting Acute Care Visit Type Note Type Treatment Note Next Note Type Next Note Type Treatment Note General Information Patient History Pt is a 79 year old female who was admitted to ED with MRI indicating acute small focal infarct in the posterior medial left temporal lobe. 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 Per progress note on 05/10, urine appears infected, borderline hypertensive. Pt was referred for VETERANS ADVISER assessment and treatment of fluent expressive aphasia. Subjective Identification Type Name,ID Wristband Observations/Patient Presentation Pt reclined in bed upon VETERANS ADVISER arrival with caregiver at bedside. Decreased instances of word-finding difficulty and hesitations noted as well as increased short-term memory and ability to attend. Chief Complaint(s) Language,Cognitive Objective Short Term Goals 1. Patient will utilize compensatory word-finding strategies with 80% accuracy given min cueing to increase word-finding skills during simple conversational tasks. PROGRESSING 2. Patient will utilize total communication in 80% of opportunities given moderate cueing in order to participate in communication about thoughts, ideas, opinions, and feelings, and meet daily needs and wants. PROGRESSING 3. Patient will explore external compensatory strategies through education and application, in order to select 1-2 that are a best fit for daily needs (ex: calendar and memory book) in order to increase orientation and functional recall/ participation within current setting. PROGRESSING Project Control Manager Goals 1. Patient will exhibit adequate cognitive- communication skills for discharge home with stand-by daily supervision using compensatory strategies as trained to facilitate safety and independence. 2. Patient will exhibit adequate communication for basic social, emotional, and safety needs using compensatory strategies as trained to facilitate increased expressive language skills. Treatment Activities Communication supports utilized during conversation as well as compensatory strategies for word-finding. Swallow screen completed given OT report of coughing with thin liquids. Assessment Patient Response to Treatment Good Rehab Potential Good Impairments Identified Expressive language,Receptive language,Cognitive communication Progress Towards Goals Good Progress Assessment of Overall Progress Improving Assessment of Improvement Completed Rosy Swallow Screen. Pt passed screen and consumed 3 oz of water and cracker without difficulty. Recommended pt sit upright for all PO intake and utilize slow rate. Pt and caregiver expressed understanding. Pt demonstrated increased overall cognitive- communication function on this date. She oriented to place, time, date, and purpose of hospitalization. Was was able to attend to VETERANS ADVISER appropriately and demonstrated increased short-term memory (e.g., recalled visit from spouse, shower with caregiver assist, and breakfast items). She continues to present with decreased short-term memory (i .e., did not recall OT session ) as well as executive functioning. Additionally, pt demonstrated increase word-finding during conversation given communication supports (i.e., roberto word writing, yes/no and multiple choice questions, slow rate of speech, and decreased syntactic complexity ). Given orthographic cueing, she was able to verbalize the current year. Additionally, she benefitted from orthographic, semantic, and phonemic cueing to verbalize the words brain and stroke when discussing reason for hospitalization. Implemented functional naming task in which pt was asked to name everyday physical items (e.g., pen, remote, etc). She was able to name 5/8 independently , increasing to 8/8 given semantic and phonemic cueing. Significant improvement noted in reading comprehension in comparison to initial evaluation. Pt was able to accurately read sentences ranging from 4-5 words given cueing to utilize slow rate, finger tracking, and reading out loud. Pt continues to demonstrate increased cognitive- communication and expressive/ receptive language function, though would benefit from ongoing treatment. RN and hospitalist notified of pt?s progress on this date. Recommend discharge home given family and caregiver support with home health or outpatient services. Reviewed with Patient Progress Being Made Patient/Caregiver Understanding Good
--- NOTE | 2024-05-11 14:46 | CM.DPNOTE ---
DC Note Discharge home w/spouse, HERLINDA caregiver [facility]- referral including F2F and HH order sent to [facility]. JARRED Ortiz, kindly agreed to update [facility] that patient returning home today. BUD
== END 2024-05-11 14:00 | disposition home health service (06) | DRG 65 ==
LOC: ED 16:26 → AC 05-10 03:03
PROVIDERS: Admitting Provider Internal Medicine; Emergency Provider Emergency Medicine; Family Provider Nurse Practitioner; PCP Nurse Practitioner; Referring Provider Emergency Medicine; Visit Provider Internal Medicine
DX: I63.89 Other cerebral infarction (principal); F11.20 Opioid dependence, uncomplicated; N39.0 Urinary tract infection, site not specified; I48.0 Paroxysmal atrial fibrillation; I73.9 Peripheral vascular disease, unspecified; I12.9 Hypertensive chronic kidney disease with stage 1 through stage 4 chronic kidney disease, or unspecified chronic kidney disease; N18.32 Chronic kidney disease, stage 3b; F98.8 Other specified behavioral and emotional disorders with onset usually occurring in childhood and adolescence; J44.9 Chronic obstructive pulmonary disease, unspecified; M54.30 Sciatica, unspecified side; F31.9 Bipolar disorder, unspecified; M54.9 Dorsalgia, unspecified; F43.10 Post-traumatic stress disorder, unspecified; R47.01 Aphasia; R29.706 NIHSS score 6; Z86.73 Personal history of transient ischemic attack (TIA), and cerebral infarction without residual deficits; Z79.01 Long term (current) use of anticoagulants; Z87.891 Personal history of nicotine dependence
CPT/HCPCS: 36415; 70450; 70496; 70498; 70551; 80048; 80053; 80061; 80305; 80320; 81001; 82550; 83036; 83735; 84443; 84484; 85025; 85610; 85730; 87040; 87077; 87086; 87186; 87635; 92507; 92523; 93005; 93010; 97161; 97166; 97530; 97535; 99284; 99291; J0696; Q9967

== ENCOUNTER → 2024-07-27 13:03 | Outpatient (CLI) | payer MEDICARE, MEDICAID, SELFPAY ==
[2024-05-09 17:41] VITALS: BMI 29.8
[2024-07-27 14:12] LABS: Albumin 4.3 g/dL (3.5-5.0); BUN Creatinine Ratio 13.4 (6-22); Blood Urea Nitrogen 23 mg/dL (7-17); Carbon Dioxide 26 mmol/L (22-32); Chloride 104 mmol/L (98-107); Estimated Glomerular Filt Rate 30 mL/min (>60); Glucose 119 mg/dL (80-110); HEMOLYSIS < 15 (0-50); Potassium 3.8 mmol/L (3.4-5.1); Sodium 140 mmol/L (137-145)
[2024-07-27 14:35] LABS: Creatinine Urine Random 91.97 mg/dL
[2024-07-27 14:41] LABS: Microalbumin Urine Random 10.5 mg/dL (0-1.6)
== END ==
LOC: LAB 13:04
PROVIDERS: Family Provider Nurse Practitioner; PCP Family Medicine; Referring Provider Internal Medicine Nephrology; Visit Provider Internal Medicine Nephrology
DX: N18.32 Chronic kidney disease, stage 3b (principal)
CPT/HCPCS: 36415; 80048; 82040; 82043; 82570

== ENCOUNTER 2024-08-07 11:30 | Outpatient (RCR) | payer MEDICARE, MEDICAID, SELFPAY ==
[2024-05-09 17:41] VITALS: BMI 29.8
--- NOTE | 2024-06-15 15:50 | PT.OIE ---
Current Diagnoses Chronic pain syndrome (06/15/24) Spondylosis without myelopathy or radiculopathy, lumbar region (06/15/24) Radiculopathy, lumbar region (06/15/24) Other lack of coordination (06/15/24) Weakness (06/15/24) Arthrodesis status (06/15/24) Past Medical History (Last Reviewed 05/10/24 @ 08:24 by Sesar Landrum MD) Abnormal Pap smear of cervix (~1956) ADD (attention deficit disorder) ADD (attention deficit disorder) Anemia Ankle pain Anxiety Arachnoiditis At high risk for cardiovascular disease (Unknown) Atrial fibrillation Bilirubin in urine Bipolar 1 disorder Cardiomegaly Cataracts, bilateral Cervical spine disease Chronic back pain CKD (chronic kidney disease) Class 1 obesity due to excess calories with body mass index (BMI) of 34.0 to 34.9 in adult COPD (chronic obstructive pulmonary disease) COVID Cystic fibrosis (~1956) Degenerative joint disease (DJD) of lumbar spine Depression Dysphagia Dysphagia Encounter for Medicare annual wellness exam Fibromyalgia Fibromyalgia Foot pain Foraminal stenosis of lumbar region Frequent falls GERD (gastroesophageal reflux disease) GI bleeding Heavy menstrual period Hyperlipidemia Hypertension Hypertensive heart and chronic kidney disease with heart failure and stage 1 through stage 4 chronic kidney disease, or unspecified chronic kidney disease Insomnia Kidney cysts Kidney stones Loss of voice Lumbar radiculopathy Osteoporosis Peripheral neuropathy Peripheral vascular disease of extremity with claudication Pneumonia Post traumatic stress disorder (PTSD) Raynaud's disease without gangrene Restless leg syndrome Rheumatoid arthritis Right leg injury Sacralization of lumbar vertebra Sciatica Scoliosis Screening for malignant neoplasm of colon Severe 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, without psychotic features (07/05/16) Skin cancer (~1996) SOB (shortness of breath) on exertion Stroke UTI (urinary tract infection) Venous stasis Vertigo (~1968) Past Surgical History (Last Reviewed 05/10/24 @ 08:24 by Sesar Landrum MD) History of back surgery History of hip replacement History of knee replacement (11/29/16) History of lumbar fusion History of neck surgery S/P total abdominal hysterectomy and bilateral salpingo-oophorectomy Status post appendectomy Status post bunionectomy (08/11/15) Status post cholecystectomy Status post tonsillectomy and adenoidectomy Status post tubal ligation Visit Care Team Role Provider Type Nabor Starkey MD Primary Care Provider Physician Specialty: [facility] Address: [address] [place] [address], [id number] Email: [email or web address] HAMZAH Navas Attending Provider Advanced Sifter Operator Family Provider Referring Provider Specialty: [facility] Address: [address] [place] [address], [address] Email: [email or web address] Physical Therapy Initial Evaluation PT-OP-A Visit Information Start: 06/15/24 12:55 Freq: Status: Active Protocol: Document 06/15/24 12:59 NM (Rec: 06/15/24 14:52 NM [id number]) Out-Patient Physical Therapy Visit Information Visit Information Visit Type Initial Evaluation Visit Note 12 visits approved. Caregiver Summer ( 8hrs) Visit Start Time 13:00 Visit Stop Time 13:50 Visit Number 09/16 Evaluation Information Evaluation Date 06/15/24 Precautions Precautions PMH: hx of acute stroke (may 2024), memory and aphasia, R visual deficits, R shoulder pain PT-OP-B Current Condition Start: 06/15/24 12:55 Freq: Status: Active Protocol: Document 06/15/24 12:59 NM (Rec: 06/15/24 14:52 NM [id number]) Current Condition History of Current Condition Onset Date chronic, ongoing Current Complaints pain History of Current Condition Pt presents to PT with chronic back pain, an ongoing problem for which she has had previous PT. She had a stroke on 05/09. She has memory, speech deficits, vision - R sided. She had 4 sessions of HHPT. She is having surgery on her shoulder- TBD, must wait due to stroke; planning to have a TSA (reports weak and painful) . She presents with a three wheel walker, 5 years of use. She has scoliosis. 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 She reports that she cannot stand without pain, sit without pain , reports increased pain with all motions. Worse with R sided. She has a hx of falls but no recent falls in several years. She reports that her last spine surgery was 5 years ago. She has not had an injection since October. She has arachnoiditis. Pt reports numbness/tingling in BLE to feet about 5 min- up to 1 hour , usually getting out of the car; R>L (calf). Presents with caregiver, Summer- 8 hrs/5x/ wk Prior Treatments and Tests Lumbar spine MRI, 10/2023: Stable MRI of lumbar spine. 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 Mid lumbar spine instrumentation and decompression. Lower lumbar spine interbody fusion. Treatment Goals Patient/Caregiver Goals pt wants to be able to stand, sit, walk without pain Current Functional Impairments (Reported) Functional Limitations- ADL's pain with dressing Functional Limitations- Mobility/Gait stand: 5 minutes ambulation w/ walker: 1 hour ea day with prn seated breaks intermittently sit: a few minutes transfers IND PT-OP-C Subjective Start: 06/15/24 12:55 Freq: Status: Active Protocol: Document 06/15/24 12:59 NM (Rec: 06/15/24 14:52 NM [id number]) OP-PT Subjective Patient Comments Patient Comments pt consents to participate in evaluation OP-PT Pain Assessment Location lumbar spine Pain Location Details R>L, Intensity 5 Scale Used Numeric (0 - 10) Description Aching,Dull,Sharp,Stabbing Frequency Frequent Pain Aggravating Factors Standing,Sitting,Walking Other Pain Aggravating Factors 3 steps to get in-R w/ assist Pain Alleviating Factors Medication,Massage,Rest Other Pain Alleviating Factors suboxyine am/pm and patch PT-OP-E Functional Tests Start: 06/15/24 12:55 Freq: Status: Active Protocol: Document 06/15/24 12:59 NM (Rec: 06/15/24 14:52 NM [id number]) Functional Tests 2 Minute Walk Test Comments will assess next session Timed Up and Go (TUG) Score 20.41 seconds Comments 3WW; CGA PT-OP-F Manual Assessment Start: 06/15/24 12:55 Freq: Status: Active Protocol: Document 06/15/24 12:59 NM (Rec: 06/15/24 14:52 NM [id number]) Manual Assessments Soft Tissue Assessment Soft Tissue Mobility Assessment Restrictions of B hamstrings, hip flexors, L paraspinals and QL Joint Mobility Assessment Joint Mobility Assessment Hypomobility of thoracolumbar spine PT-OP-G Mobility & Gait Start: 06/15/24 12:55 Freq: Status: Active Protocol: Document 06/15/24 12:59 NM (Rec: 06/15/24 14:52 NM [id number]) OP Mobility Evaluation Bed Mobility Supine to and from Sit min A at trunk Transfers Sit to Stand with B hand assist to stand from 20 plinth, uses BLE to stabilize OP Gait Assessment Gait Gait Assistance Required: Standby Assistance Distance (Feet) 150 Assistive Devices Assistive Device Gait Belt Gait Deviations General Gait Pattern Antalgic,Decreased Feet Clearance,Flexed Trunk,Lateral Trunk Lean Factors Limiting Gait Function Factors Limiting Gait Function Decreased Activity Tolerance, Decreased Sensation,Decreased Strength,Limited Range of Motion,Pain,Poor Balance Comments Gait Comments Utilizes 3WW- decreased foot clearance, demos strong R trunk lean and flexed trunk PT-OP-H Neuro Start: 06/15/24 12:55 Freq: Status: Active Protocol: Document 06/15/24 12:59 NM (Rec: 06/15/24 14:52 NM [id number]) Coordination Evaluation Upper Extremity Tests Left Finger to Nose Test Moderate Impairment Alternate Nose to Finger Test Moderate Impairment Pronation/Supination Test Normal Performance Right Finger to Nose Test Moderate Impairment Alternate Nose to Finger Test Moderate Impairment Pronation/Supination Test Normal Performance Lower Extremity Tests Left Heel on Tian Test Moderate Impairment Right Heel on Tian Test Moderate Impairment PT-OP-J Posture/Palpation/Skin Start: 06/15/24 12:55 Freq: Status: Active Protocol: Document 06/15/24 12:59 NM (Rec: 06/15/24 14:52 NM [id number]) Posture Evaluation Position Standing Head/C-Spine Posture Forward Head L-Spine Posture Increased Lordosis,Fixed Scoliosis on (L),Flexed, Shifted Right Shoulder Posture (L) Rounded,(R) Rounded Scapula Posture (L) Protracted,(R) Elevated,(R ) Winged Arm Posture (L) Internally Rotated,(R) Internally Rotated Pelvis Posture (L) Rotated Anterior,(L) Iliac Crest Superior,(R) Iliac Crest Inferior Weight Distribution Weight Shifted Right Hip Posture (L) Externally Rotated,(R) Externally Rotated Knee Posture (L) Genu Valgus,(R) Genu Valgus Comments Posture Comments R rib hump, truncal shift L iliac crest elevated Palpation Assessment Location lumbar spine Palpation Details Tenderness along midline, especially R sided along spinous and transverse processes Tightness along L hip and paraspinals, L hip elevated PT-OP-K Range of Motion Start: 06/15/24 12:55 Freq: Status: Active Protocol: Document 06/15/24 12:59 NM (Rec: 06/15/24 14:52 NM [id number]) Lumbar Spine Range of Motion Lumbar Spine Active Percentage Testing Position Sitting Flexion 50 Extension 0 Rotation Left 0 Rotation Right 0 Lateral Flexion Left 25 Lateral Flexion Right 10 Comments All R sided motions painful Hip Goniometric Range of Motion Hip Right Internal Rotation 18 External Rotation 20 Left Internal Rotation 25 External Rotation 20 PT-OP-L Special Tests Start: 06/15/24 12:55 Freq: Status: Active Protocol: Document 06/15/24 12:59 NM (Rec: 06/15/24 14:52 NM [id number]) Special Tests Lumbar Spine Special Tests Slump Test Results + Comments B PT-OP-M Strength Start: 06/15/24 12:55 Freq: Status: Active Protocol: Document 06/15/24 12:59 NM (Rec: 06/15/24 14:52 NM [id number]) Trunk Strength Trunk Manual Muscle Testing Flexion 3 Fair Extension 3 Fair Rotation Left 3 Fair Rotation Right 3 Fair Lateral Flexion Left 3 Fair Lateral Flexion Right 3 Fair Comments Pain with all resisted motions , especially R sided Hip Strength Hip Manual Muscle Testing Right Flexion (L2) 4- Good- Extension (S1) 4- Good- Abduction 4- Good- Adduction 4- Good- External Rotation 3+ Fair+ Internal Rotation 3+ Fair+ Left Flexion (L2) 3+ Fair+ Extension (S1) 3+ Fair+ Abduction 3+ Fair+ Adduction 3+ Fair+ External Rotation 3+ Fair+ Internal Rotation 3+ Fair+ Knee Strength Knee Manual Muscle Testing Right Flexion (S2) 4- Good- Extension (L3) 4- Good- Left Flexion (S2) 4- Good- Extension (L3) 4- Good- Ankle/Foot Strength Ankle and Foot Manual Muscle Testing Right Dorsiflexion (L4) 3+ Fair+ Plantarflexion (S1) 3+ Fair+ Comments tested in sitting Left Dorsiflexion (L4) 3+ Fair+ Plantarflexion (S1) 3+ Fair+ Comments tested in sitting PT-OP-Q Treatments Start: 06/15/24 12:55 Freq: Status: Active Protocol: Document 06/15/24 12:59 NM (Rec: 06/15/24 14:52 NM [id number]) Therapeutic Exercises Sidelying Exercises reverse clams Sidelying Exercise Name trialed Side bilateral Reps/Minutes 10 L, 5 R Comments limited ROM; increased pain L sidelying so d/c to sitting clams Sidelying Exercise Name trialed Side bilateral Reps/Minutes 10 L, 5 R Comments limited ROM; increased pain L sidelying so d/c to sitting Sitting Exercises Hamstring stretch Sitting Exercise Name 1. trialed seated w/ gait belt , 2. w/o gait belt, slight foot prop (HEP) Side bilateral Reps/Minutes 10x5 holds ea leg Comments set up assist from PT and caregiver; d/c 1st stretch d/t diff w/ set up hip ER Sitting Exercise Name seated clam Side bilateral Resistance level 1 band at thighs Equipment Used cueing for midline posture ( dec R lean) Reps/Minutes 2x10 ea hip IR Side bilateral Equipment Used pillow between legs for ADD Reps/Minutes 2x10 ea PT-OP-T Assessment and Plan Start: 06/15/24 12:55 Freq: Status: Active Protocol: Document 06/15/24 12:59 NM (Rec: 06/15/24 14:52 NM [id number]) Physical Therapy Assessment Rehab Potential Rehabilitation Potential Fair Evaluation Complexity Number of Personal Factors/Comorbidities 3 or More Number of Body Systems Impaired 4 or More Clinical Presentation at Evaluation Evolving Impairments Impairments Activity Tolerance,Balance, Coordination,Functional Activities,Functional Mobility ,Gait,Pain,Posture,ROM, Sensation,Soft Tissue Mobility ,Strength,Transfers Other Concerns Fall Risk increased TUG- 20.4 sec Barriers to Rehabilitation Pt had a recent CVA affecting memory, vision, and speech. She will be attending speech therapy concurrently. Pt has hx of not attending PT appt. She is also planning to have R shoulder surgery, at this time TBD due to recent stroke. Goals Three Impairment impaired standing and ambulation tolerance Test Borer Goal (LTG) Pt will improve 2 MWT distance by at least 100 ft in order to demonstrate improved ambulation distance, gait speed, and BLE strength for transfers/gait. LTG Duration 8 weeks Two Impairment decreased sitting tolerance Short Term Goal (STG) Pt will be educated on sitting ergonomics in order to promote midline alignment during sitting STG Duration 4 weeks Senior Care Goal (LTG) Pt will report that she is able to sit >10 minutes without increase in low back pain in order to demonstrate improved symptom management and ADL tolerance LTG Duration 8 weeks One Impairment not performing HEP or any daily exercises for condition Test Borer Goal (LTG) Pt will report compliance with HEP at least 2-3x/wk in order to maximize progress with PT and to facilitate transition to maintenance program LTG Duration 8 weeks Assessment Summary Assessment Pt is a 79 y.o. female presenting with chronic low back pain and complex medical history. She has had several surgeries for pain management including discectomies, laminectomies, and fusions. Pt 's most recent imaging is an MRI from 10/2023. Pt recently had a stroke in May 2024 resulting in impairments in speech, memory, and vision; however, one side was not more affected than the other. Due to spinal fusions, pt has decreased trunk and hip ROM. She has difficulty with stabilizing her trunk against resistance. Pt demonstrates a strong R lateral trunk shift but has L sided trunk tightness and iliac elevation. Pt has increased pain with palpation along spine, especially on her R side. Pt is unable to tolerate supine or L sidelying due to pain. She has reports radicular symptoms bilaterally, R>L. Pt is able to transfer from chairs with increased time and BUE assist, but requires min A for bed mobility due to pain . PT educated pt on exam findings and plan of care. Due to insurance limitations and plan to start speech therapy, pt will only be attending PT 1x/wk even though she would benefit from 2x/wk. Pt would benefit from skilled PT for flexibility, strengthening, and body mechanics/ergonomics training in order to improve symptom management and ADL tolerance. Physical Therapy Plan Frequency and Duration Frequency of Treatment 1-2x/wk Duration of treatment (weeks) 8 Plan of Care Start Date 06/15/24 Plan of Care End Date 08/10/24 Therapeutic Interventions Therapeutic Interventions Balance Training,Gait Training ,Home Exercise Program,Joint Mobilizations,Manual Therapy, Neuromuscular Re-education, Orthotic/Prosthetic Management ,Patient/Caregiver Education, Self-Care/Home Management, Sensory Integration,Soft Tissue Mobilization,Taping, Therapeutic Activities, Therapeutic Exercises Modalities Cold Pack/Ice Massage,Hot Packs Other Therapeutic Interventions No lumbar mobilizations Next Visit Focus/Plan Next Note Type Treatment Note Next Visit Plan Review HEP. Perform 2 min walk test Biodex or scifit. STM to hips and lumbar spine if tolerated. Gentle seated trunk stretching using equatorial guinean ball. seated hip and knee exercises, stretches. Alternate with standing stretches/exercises ( calf stretch, calf raise, marching, side steps, step up 4, hip ext or abd, lat pull down) STS training from elevated height with mirror, seated and gentle standing BLE strengthening. Body mechanics and ergonomics training
--- NOTE | 2024-06-19 12:52 | PT.OTN ---
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 Caregiver Summer ( 8hrs) Visit Start Time 11:35 Visit Stop Time 12:15 Visit Number 10/17 Number of PARK WORKER SUPERVISOR Visits 1 Precautions Precautions PMH: hx of acute stroke (may 2024), memory and aphasia, R visual deficits, R shoulder pain PT-OP-B Current Condition Start: 06/15/24 12:55 Freq: Status: Active Protocol: Document 06/15/24 12:59 NM (Rec: 06/15/24 14:52 NM [id number]) Current Condition History of Current Condition Onset Date chronic, ongoing Current Complaints pain History of Current Condition Pt presents to PT with chronic back pain, an ongoing problem for which she has had previous PT. She had a stroke on 05/09. She has memory, speech deficits, vision - R sided. She had 4 sessions of HHPT. She is having surgery on her shoulder- TBD, must wait due to stroke; planning to have a TSA (reports weak and painful) . She presents with a three wheel walker, 5 years of use. She has scoliosis. 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 She reports that she cannot stand without pain, sit without pain , reports increased pain with all motions. Worse with R sided. She has a hx of falls but no recent falls in several years. She reports that her last spine surgery was 5 years ago. She has not had an injection since October. She has arachnoiditis. Pt reports numbness/tingling in BLE to feet about 5 min- up to 1 hour , usually getting out of the car; R>L (calf). Presents with caregiver, Summer- 8 hrs/5x/ wk Prior Treatments and Tests Lumbar spine MRI, 10/2023: Stable MRI of lumbar spine. 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 Mid lumbar spine instrumentation and decompression. Lower lumbar spine interbody fusion. Treatment Goals Patient/Caregiver Goals pt wants to be able to stand, sit, walk without pain Current Functional Impairments (Reported) Functional Limitations- ADL's pain with dressing Functional Limitations- Mobility/Gait stand: 5 minutes ambulation w/ walker: 1 hour ea day with prn seated breaks intermittently sit: a few minutes transfers IND PT-OP-C Subjective Start: 06/15/24 12:55 Freq: Status: Active Protocol: Document 06/19/24 11:40 SW (Rec: 06/19/24 12:51 SW [id number]) OP-PT Subjective Patient Comments Patient Comments Pt reports some pressure in Right eye, that has been present, not a new c/o. PT-OP-E Functional Tests Start: 06/15/24 12:55 Freq: Status: Active Protocol: Document 06/15/24 12:59 NM (Rec: 06/15/24 14:52 NM [id number]) Functional Tests 2 Minute Walk Test Comments will assess next session Timed Up and Go (TUG) Score 20.41 seconds Comments 3WW; CGA PT-OP-F Manual Assessment Start: 06/15/24 12:55 Freq: Status: Active Protocol: Document 06/15/24 12:59 NM (Rec: 06/15/24 14:52 NM [id number]) Manual Assessments Soft Tissue Assessment Soft Tissue Mobility Assessment Restrictions of B hamstrings, hip flexors, L paraspinals and QL Joint Mobility Assessment Joint Mobility Assessment Hypomobility of thoracolumbar spine PT-OP-G Mobility & Gait Start: 06/15/24 12:55 Freq: Status: Active Protocol: Document 06/15/24 12:59 NM (Rec: 06/15/24 14:52 NM [id number]) OP Mobility Evaluation Bed Mobility Supine to and from Sit min A at trunk Transfers Sit to Stand with B hand assist to stand from 20 plinth, uses BLE to stabilize OP Gait Assessment Gait Gait Assistance Required: Standby Assistance Distance (Feet) 150 Assistive Devices Assistive Device Gait Belt Gait Deviations General Gait Pattern Antalgic,Decreased Feet Clearance,Flexed Trunk,Lateral Trunk Lean Factors Limiting Gait Function Factors Limiting Gait Function Decreased Activity Tolerance, Decreased Sensation,Decreased Strength,Limited Range of Motion,Pain,Poor Balance Comments Gait Comments Utilizes 3WW- decreased foot clearance, demos strong R trunk lean and flexed trunk PT-OP-H Neuro Start: 06/15/24 12:55 Freq: Status: Active Protocol: Document 06/15/24 12:59 NM (Rec: 06/15/24 14:52 NM [id number]) Coordination Evaluation Upper Extremity Tests Left Finger to Nose Test Moderate Impairment Alternate Nose to Finger Test Moderate Impairment Pronation/Supination Test Normal Performance Right Finger to Nose Test Moderate Impairment Alternate Nose to Finger Test Moderate Impairment Pronation/Supination Test Normal Performance Lower Extremity Tests Left Heel on Tian Test Moderate Impairment Right Heel on Tian Test Moderate Impairment PT-OP-J Posture/Palpation/Skin Start: 06/15/24 12:55 Freq: Status: Active Protocol: Document 06/15/24 12:59 NM (Rec: 06/15/24 14:52 NM [id number]) Posture Evaluation Position Standing Head/C-Spine Posture Forward Head L-Spine Posture Increased Lordosis,Fixed Scoliosis on (L),Flexed, Shifted Right Shoulder Posture (L) Rounded,(R) Rounded Scapula Posture (L) Protracted,(R) Elevated,(R ) Winged Arm Posture (L) Internally Rotated,(R) Internally Rotated Pelvis Posture (L) Rotated Anterior,(L) Iliac Crest Superior,(R) Iliac Crest Inferior Weight Distribution Weight Shifted Right Hip Posture (L) Externally Rotated,(R) Externally Rotated Knee Posture (L) Genu Valgus,(R) Genu Valgus Comments Posture Comments R rib hump, truncal shift L iliac crest elevated Palpation Assessment Location lumbar spine Palpation Details Tenderness along midline, especially R sided along spinous and transverse processes Tightness along L hip and paraspinals, L hip elevated PT-OP-K Range of Motion Start: 06/15/24 12:55 Freq: Status: Active Protocol: Document 06/15/24 12:59 NM (Rec: 06/15/24 14:52 NM [id number]) Lumbar Spine Range of Motion Lumbar Spine Active Percentage Testing Position Sitting Flexion 50 Extension 0 Rotation Left 0 Rotation Right 0 Lateral Flexion Left 25 Lateral Flexion Right 10 Comments All R sided motions painful Hip Goniometric Range of Motion Hip Right Internal Rotation 18 External Rotation 20 Left Internal Rotation 25 External Rotation 20 PT-OP-L Special Tests Start: 06/15/24 12:55 Freq: Status: Active Protocol: Document 06/15/24 12:59 NM (Rec: 06/15/24 14:52 NM [id number]) Special Tests Lumbar Spine Special Tests Slump Test Results + Comments B PT-OP-M Strength Start: 06/15/24 12:55 Freq: Status: Active Protocol: Document 06/15/24 12:59 NM (Rec: 06/15/24 14:52 NM [id number]) Trunk Strength Trunk Manual Muscle Testing Flexion 3 Fair Extension 3 Fair Rotation Left 3 Fair Rotation Right 3 Fair Lateral Flexion Left 3 Fair Lateral Flexion Right 3 Fair Comments Pain with all resisted motions , especially R sided Hip Strength Hip Manual Muscle Testing Right Flexion (L2) 4- Good- Extension (S1) 4- Good- Abduction 4- Good- Adduction 4- Good- External Rotation 3+ Fair+ Internal Rotation 3+ Fair+ Left Flexion (L2) 3+ Fair+ Extension (S1) 3+ Fair+ Abduction 3+ Fair+ Adduction 3+ Fair+ External Rotation 3+ Fair+ Internal Rotation 3+ Fair+ Knee Strength Knee Manual Muscle Testing Right Flexion (S2) 4- Good- Extension (L3) 4- Good- Left Flexion (S2) 4- Good- Extension (L3) 4- Good- Ankle/Foot Strength Ankle and Foot Manual Muscle Testing Right Dorsiflexion (L4) 3+ Fair+ Plantarflexion (S1) 3+ Fair+ Comments tested in sitting Left Dorsiflexion (L4) 3+ Fair+ Plantarflexion (S1) 3+ Fair+ Comments tested in sitting PT-OP-Q Treatments Start: 06/15/24 12:55 Freq: Status: Active Protocol: Document 06/19/24 11:40 SW (Rec: 06/19/24 12:51 SW [id number]) Therapeutic Exercises Sitting Exercises LAQ Sitting Exercise Name Knee ext Side bilateral Resistance AROM Reps/Minutes x10 ea HS curl Sitting Exercise Name knee flex Side bilateral Resistance AROM Reps/Minutes x10 ea QL Stretch Sitting Exercise Name seated QL stretch, trialed on cook islander ball (pt unable to keep core stabiliza) Side bilateral Resistance AROM Reps/Minutes 8 x 5 hold Comments discomfort in R shoulder on last rep Hamstring stretch Sitting Exercise Name slight foot prop (HEP review) Side bilateral Reps/Minutes 10x5 holds ea leg Comments set up assist from PARK WORKER SUPERVISOR hip ER Sitting Exercise Name seated clam HEP review Side bilateral Resistance level 1 band at thighs Equipment Used cueing for midline posture ( dec R lean) Reps/Minutes 2x10 ea hip IR Sitting Exercise Name HEP review Side bilateral Equipment Used pillow between legs for ADD Reps/Minutes 2x10 ea Standing Exercises Calf raises Standing Exercise Name Trialed Comments standing too painful in low back PT-OP-T Assessment and Plan Start: 06/15/24 12:55 Freq: Status: Active Protocol: Document 06/19/24 11:40 SW (Rec: 06/19/24 12:51 SW [id number]) Physical Therapy Assessment Goals Three Impairment impaired standing and ambulation tolerance Taxation Economist Goal (LTG) Pt will improve 2 MWT distance by at least 100 ft in order to demonstrate improved ambulation distance, gait speed, and BLE strength for transfers/gait. LTG Duration 8 weeks Two Impairment decreased sitting tolerance Short Term Goal (STG) Pt will be educated on sitting ergonomics in order to promote midline alignment during sitting STG Duration 4 weeks Nursing Home Goal (LTG) Pt will report that she is able to sit >10 minutes without increase in low back pain in order to demonstrate improved symptom management and ADL tolerance LTG Duration 8 weeks One Impairment not performing HEP or any daily exercises for condition Taxation Economist Goal (LTG) Pt will report compliance with HEP at least 2-3x/wk in order to maximize progress with PT and to facilitate transition to maintenance program LTG Duration 8 weeks Assessment Summary Assessment Trialed progression to standing exercises, pt unable to tolerate today d/t pain in lumbar area, relieved when sitting. Session focused on HEP review and seated strengthening to progress toward pt goals. Pt inquired multiple times throughout session about R shoulder surgery, pt education on PT POC and goals. Physical Therapy Plan Frequency and Duration Frequency of Treatment 1-2x/wk Duration of treatment (weeks) 8 Plan of Care Start Date 06/15/24 Plan of Care End Date 08/10/24 Therapeutic Interventions Therapeutic Interventions Balance Training,Gait Training ,Home Exercise Program,Joint Mobilizations,Manual Therapy, Neuromuscular Re-education, Orthotic/Prosthetic Management ,Patient/Caregiver Education, Self-Care/Home Management, Sensory Integration,Soft Tissue Mobilization,Taping, Therapeutic Activities, Therapeutic Exercises Modalities Cold Pack/Ice Massage,Hot Packs Other Therapeutic Interventions No lumbar mobilizations Next Visit Focus/Plan Next Note Type Treatment Note Next Visit Plan Review HEP. Perform 2 min walk test Biodex or scifit. STM to hips and lumbar spine if tolerated. Gentle seated trunk stretching using cook islander ball. seated hip and knee exercises, stretches. Alternate with standing stretches/exercises ( calf stretch, calf raise, marching, side steps, step up 4, hip ext or abd, lat pull down) STS training from elevated height with mirror, seated and gentle standing BLE strengthening. Body mechanics and ergonomics training
--- NOTE | 2024-06-26 16:21 | PT.OTN ---
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 Caregiver Summer ( 8hrs) Visit Start Time 14:32 Visit Stop Time 15:12 Visit Number 11/14 Number of OUTSOLE SPLICER Visits 2 PT-OP-B Current Condition Start: 06/15/24 12:55 Freq: Status: Active Protocol: Document 06/15/24 12:59 NM (Rec: 06/15/24 14:52 NM [id number]) Current Condition History of Current Condition Onset Date chronic, ongoing Current Complaints pain History of Current Condition Pt presents to PT with chronic back pain, an ongoing problem for which she has had previous PT. She had a stroke on 05/09. She has memory, speech deficits, vision - R sided. She had 4 sessions of HHPT. She is having surgery on her shoulder- TBD, must wait due to stroke; planning to have a TSA (reports weak and painful) . She presents with a three wheel walker, 5 years of use. She has scoliosis. 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 She reports that she cannot stand without pain, sit without pain , reports increased pain with all motions. Worse with R sided. She has a hx of falls but no recent falls in several years. She reports that her last spine surgery was 5 years ago. She has not had an injection since October. She has arachnoiditis. Pt reports numbness/tingling in BLE to feet about 5 min- up to 1 hour , usually getting out of the car; R>L (calf). Presents with caregiver, Summer- 8 hrs/5x/ wk Prior Treatments and Tests Lumbar spine MRI, 10/2023: Stable MRI of lumbar spine. 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 Mid lumbar spine instrumentation and decompression. Lower lumbar spine interbody fusion. Treatment Goals Patient/Caregiver Goals pt wants to be able to stand, sit, walk without pain Current Functional Impairments (Reported) Functional Limitations- ADL's pain with dressing Functional Limitations- Mobility/Gait stand: 5 minutes ambulation w/ walker: 1 hour ea day with prn seated breaks intermittently sit: a few minutes transfers IND PT-OP-C Subjective Start: 06/15/24 12:55 Freq: Status: Active Protocol: Document 06/26/24 14:43 SW (Rec: 06/26/24 15:53 SW [id number]) OP-PT Subjective Patient Comments Patient Comments Pt reports tolerated last session well. Pt reports currently no pain in back. PT-OP-E Functional Tests Start: 06/15/24 12:55 Freq: Status: Active Protocol: Document 06/26/24 14:43 SW (Rec: 06/26/24 15:53 SW [id number]) Functional Tests 2 Minute Walk Test Distance 311' Device Used pt walker Comments feet scuffing, right lateral lean, denies pain PT-OP-F Manual Assessment Start: 06/15/24 12:55 Freq: Status: Active Protocol: Document 06/15/24 12:59 NM (Rec: 06/15/24 14:52 NM [id number]) Manual Assessments Soft Tissue Assessment Soft Tissue Mobility Assessment Restrictions of B hamstrings, hip flexors, L paraspinals and QL Joint Mobility Assessment Joint Mobility Assessment Hypomobility of thoracolumbar spine PT-OP-G Mobility & Gait Start: 06/15/24 12:55 Freq: Status: Active Protocol: Document 06/15/24 12:59 NM (Rec: 06/15/24 14:52 NM [id number]) OP Mobility Evaluation Bed Mobility Supine to and from Sit min A at trunk Transfers Sit to Stand with B hand assist to stand from 20 plinth, uses BLE to stabilize OP Gait Assessment Gait Gait Assistance Required: Standby Assistance Distance (Feet) 150 Assistive Devices Assistive Device Gait Belt Gait Deviations General Gait Pattern Antalgic,Decreased Feet Clearance,Flexed Trunk,Lateral Trunk Lean Factors Limiting Gait Function Factors Limiting Gait Function Decreased Activity Tolerance, Decreased Sensation,Decreased Strength,Limited Range of Motion,Pain,Poor Balance Comments Gait Comments Utilizes 3WW- decreased foot clearance, demos strong R trunk lean and flexed trunk PT-OP-H Neuro Start: 06/15/24 12:55 Freq: Status: Active Protocol: Document 06/15/24 12:59 NM (Rec: 06/15/24 14:52 NM [id number]) Coordination Evaluation Upper Extremity Tests Left Finger to Nose Test Moderate Impairment Alternate Nose to Finger Test Moderate Impairment Pronation/Supination Test Normal Performance Right Finger to Nose Test Moderate Impairment Alternate Nose to Finger Test Moderate Impairment Pronation/Supination Test Normal Performance Lower Extremity Tests Left Heel on Tian Test Moderate Impairment Right Heel on Tian Test Moderate Impairment PT-OP-J Posture/Palpation/Skin Start: 06/15/24 12:55 Freq: Status: Active Protocol: Document 06/15/24 12:59 NM (Rec: 06/15/24 14:52 NM [id number]) Posture Evaluation Position Standing Head/C-Spine Posture Forward Head L-Spine Posture Increased Lordosis,Fixed Scoliosis on (L),Flexed, Shifted Right Shoulder Posture (L) Rounded,(R) Rounded Scapula Posture (L) Protracted,(R) Elevated,(R ) Winged Arm Posture (L) Internally Rotated,(R) Internally Rotated Pelvis Posture (L) Rotated Anterior,(L) Iliac Crest Superior,(R) Iliac Crest Inferior Weight Distribution Weight Shifted Right Hip Posture (L) Externally Rotated,(R) Externally Rotated Knee Posture (L) Genu Valgus,(R) Genu Valgus Comments Posture Comments R rib hump, truncal shift L iliac crest elevated Palpation Assessment Location lumbar spine Palpation Details Tenderness along midline, especially R sided along spinous and transverse processes Tightness along L hip and paraspinals, L hip elevated PT-OP-K Range of Motion Start: 06/15/24 12:55 Freq: Status: Active Protocol: Document 06/15/24 12:59 NM (Rec: 06/15/24 14:52 NM [id number]) Lumbar Spine Range of Motion Lumbar Spine Active Percentage Testing Position Sitting Flexion 50 Extension 0 Rotation Left 0 Rotation Right 0 Lateral Flexion Left 25 Lateral Flexion Right 10 Comments All R sided motions painful Hip Goniometric Range of Motion Hip Right Internal Rotation 18 External Rotation 20 Left Internal Rotation 25 External Rotation 20 PT-OP-L Special Tests Start: 06/15/24 12:55 Freq: Status: Active Protocol: Document 06/15/24 12:59 NM (Rec: 06/15/24 14:52 NM [id number]) Special Tests Lumbar Spine Special Tests Slump Test Results + Comments B PT-OP-M Strength Start: 06/15/24 12:55 Freq: Status: Active Protocol: Document 06/15/24 12:59 NM (Rec: 06/15/24 14:52 NM [id number]) Trunk Strength Trunk Manual Muscle Testing Flexion 3 Fair Extension 3 Fair Rotation Left 3 Fair Rotation Right 3 Fair Lateral Flexion Left 3 Fair Lateral Flexion Right 3 Fair Comments Pain with all resisted motions , especially R sided Hip Strength Hip Manual Muscle Testing Right Flexion (L2) 4- Good- Extension (S1) 4- Good- Abduction 4- Good- Adduction 4- Good- External Rotation 3+ Fair+ Internal Rotation 3+ Fair+ Left Flexion (L2) 3+ Fair+ Extension (S1) 3+ Fair+ Abduction 3+ Fair+ Adduction 3+ Fair+ External Rotation 3+ Fair+ Internal Rotation 3+ Fair+ Knee Strength Knee Manual Muscle Testing Right Flexion (S2) 4- Good- Extension (L3) 4- Good- Left Flexion (S2) 4- Good- Extension (L3) 4- Good- Ankle/Foot Strength Ankle and Foot Manual Muscle Testing Right Dorsiflexion (L4) 3+ Fair+ Plantarflexion (S1) 3+ Fair+ Comments tested in sitting Left Dorsiflexion (L4) 3+ Fair+ Plantarflexion (S1) 3+ Fair+ Comments tested in sitting PT-OP-Q Treatments Start: 06/15/24 12:55 Freq: Status: Active Protocol: Document 06/26/24 14:43 SW (Rec: 06/26/24 15:53 SW [id number]) Therapeutic Exercises Sitting Exercises LAQ Sitting Exercise Name Knee ext (HEP- issued HO) Side bilateral Resistance AROM Reps/Minutes 2x10 ea HS curl Sitting Exercise Name knee flex (HEP- issued HO) Side bilateral Resistance AROM Reps/Minutes x10 ea QL Stretch Sitting Exercise Name seated QL stretch Side left Resistance AROM Reps/Minutes 8x 5 hold Comments discomfort in R shoulder on last rep Hamstring stretch Sitting Exercise Name slight foot prop (HEP review) Side bilateral Reps/Minutes 10x5 holds ea leg Comments set up assist from OUTSOLE SPLICER hip ER Sitting Exercise Name seated clam HEP review Side bilateral Resistance level 1 band at thighs Equipment Used cueing for midline posture ( dec R lean) Reps/Minutes 2x10 ea Comments cues for correct execution hip IR Sitting Exercise Name HEP review Side bilateral Equipment Used pillow between legs for ADD Reps/Minutes 2x10 ea Comments cues for correct execution Standing Exercises Hip Abd Standing Exercise Name Hip Abd (in PT) Reps/Minutes x8 Comments cues for Marches Standing Exercise Name Marches (in PT) Reps/Minutes 2 x 10 HS curl Standing Exercise Name Trialed (discont, near Right side LOB) Comments CGA PT-OP-T Assessment and Plan Start: 06/15/24 12:55 Freq: Status: Active Protocol: Document 06/26/24 14:43 SW (Rec: 06/26/24 15:53 SW [id number]) Physical Therapy Assessment Goals Three Impairment impaired standing and ambulation tolerance Medical Lab Technologist Goal (LTG) Pt will improve 2 MWT distance by at least 100 ft in order to demonstrate improved ambulation distance, gait speed, and BLE strength for transfers/gait. LTG Duration 8 weeks Two Impairment decreased sitting tolerance Short Term Goal (STG) Pt will be educated on sitting ergonomics in order to promote midline alignment during sitting STG Duration 4 weeks [facility]ci Goal (LTG) Pt will report that she is able to sit >10 minutes without increase in low back pain in order to demonstrate improved symptom management and ADL tolerance LTG Duration 8 weeks One Impairment not performing HEP or any daily exercises for condition Medical Lab Technologist Goal (LTG) Pt will report compliance with HEP at least 2-3x/wk in order to maximize progress with PT and to facilitate transition to maintenance program LTG Duration 8 weeks Assessment Summary Assessment Progressed pt with standing exercises in PT today, pt had difficulty with balance and minimal neck and back pain with standing, improved with cues for posture, close SBA. Frequent verbal cues for posture throughout session. Spread out standing exercises between seated exercises this session for pt tolerance. Pt able to ambulate 311' today with 2 min walk test, right lateral lean, minimal foot clearance bilaterally, foot suffing on floor, close SBA. Pt caregiver will be present at PT next session, plan to review standing exercises with caregiver and patient prior to issueing for HEP for pt safety. Physical Therapy Plan Frequency and Duration Frequency of Treatment 1-2x/wk Duration of treatment (weeks) 8 Plan of Care Start Date 06/15/24 Plan of Care End Date 08/10/24 Therapeutic Interventions Therapeutic Interventions Balance Training,Gait Training ,Home Exercise Program,Joint Mobilizations,Manual Therapy, Neuromuscular Re-education, Orthotic/Prosthetic Management ,Patient/Caregiver Education, Self-Care/Home Management, Sensory Integration,Soft Tissue Mobilization,Taping, Therapeutic Activities, Therapeutic Exercises Modalities Cold Pack/Ice Massage,Hot Packs Other Therapeutic Interventions No lumbar mobilizations Next Visit Focus/Plan Next Note Type Treatment Note Next Visit Plan Plan to review standing exercises with pt caregiver summer present, prior to issueing HEP for pt safety. Review HEP. Perform 2 min walk test Biodex or scifit. STM to hips and lumbar spine if tolerated. Gentle seated trunk stretching using central african ball. seated hip and knee exercises, stretches. Alternate with standing stretches/exercises ( calf stretch, calf raise, marching, side steps, step up 4, hip ext or abd, lat pull down) STS training from elevated height with mirror, seated and gentle standing BLE strengthening. Body mechanics and ergonomics training
--- NOTE | 2024-07-04 15:52 | PT.OTN ---
Current Diagnoses Chronic pain syndrome (07/04/24) Spondylosis without myelopathy or radiculopathy, lumbar region (07/04/24) Radiculopathy, lumbar region (07/04/24) Other lack of coordination (07/04/24) Weakness (07/04/24) Arthrodesis status (07/04/24) Physical Therapy Treatment Note PT-OP-A Visit Information Start: 06/15/24 12:55 Freq: Status: Active Protocol: Document 07/04/24 13:03 NM (Rec: 07/04/24 13:47 NM [id number]) Out-Patient Physical Therapy Visit Information Visit Information Visit Type Treatment Note Visit Note 12 visits approved. Caregiver Summer ( 8hrs) Visit Start Time 13:04 Visit Stop Time 13:45 Visit Number 12/15 Evaluation Information Evaluation Date 06/15/24 Precautions Precautions PMH: hx of acute stroke (may 2024), memory and aphasia, R visual deficits, R shoulder pain PT-OP-B Current Condition Start: 06/15/24 12:55 Freq: Status: Active Protocol: Document 06/15/24 12:59 NM (Rec: 06/15/24 14:52 NM [id number]) Current Condition History of Current Condition Onset Date chronic, ongoing Current Complaints pain History of Current Condition Pt presents to PT with chronic back pain, an ongoing problem for which she has had previous PT. She had a stroke on 05/09. She has memory, speech deficits, vision - R sided. She had 4 sessions of HHPT. She is having surgery on her shoulder- TBD, must wait due to stroke; planning to have a TSA (reports weak and painful) . She presents with a three wheel walker, 5 years of use. She has scoliosis. 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 She reports that she cannot stand without pain, sit without pain , reports increased pain with all motions. Worse with R sided. She has a hx of falls but no recent falls in several years. She reports that her last spine surgery was 5 years ago. She has not had an injection since October. She has arachnoiditis. Pt reports numbness/tingling in BLE to feet about 5 min- up to 1 hour , usually getting out of the car; R>L (calf). Presents with caregiver, Summer- 8 hrs/5x/ wk Prior Treatments and Tests Lumbar spine MRI, 10/2023: Stable MRI of lumbar spine. 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 Mid lumbar spine instrumentation and decompression. Lower lumbar spine interbody fusion. Treatment Goals Patient/Caregiver Goals pt wants to be able to stand, sit, walk without pain Current Functional Impairments (Reported) Functional Limitations- ADL's pain with dressing Functional Limitations- Mobility/Gait stand: 5 minutes ambulation w/ walker: 1 hour ea day with prn seated breaks intermittently sit: a few minutes transfers IND PT-OP-C Subjective Start: 06/15/24 12:55 Freq: Status: Active Protocol: Document 07/04/24 13:03 NM (Rec: 07/04/24 13:47 NM [id number]) OP-PT Subjective Patient Comments Patient Comments Pt reports that her back is not bothering her as much. States pain is less. She states word finding is worse. Pt reports that the exercises make her feel better. 11/12 PT-OP-E Functional Tests Start: 06/15/24 12:55 Freq: Status: Active Protocol: Document 06/26/24 14:43 SW (Rec: 06/26/24 15:53 SW [id number]) Functional Tests 2 Minute Walk Test Distance 311' Device Used pt walker Comments feet scuffing, right lateral lean, denies pain PT-OP-F Manual Assessment Start: 06/15/24 12:55 Freq: Status: Active Protocol: Document 06/15/24 12:59 NM (Rec: 06/15/24 14:52 NM [id number]) Manual Assessments Soft Tissue Assessment Soft Tissue Mobility Assessment Restrictions of B hamstrings, hip flexors, L paraspinals and QL Joint Mobility Assessment Joint Mobility Assessment Hypomobility of thoracolumbar spine PT-OP-G Mobility & Gait Start: 06/15/24 12:55 Freq: Status: Active Protocol: Document 06/15/24 12:59 NM (Rec: 06/15/24 14:52 NM [id number]) OP Mobility Evaluation Bed Mobility Supine to and from Sit min A at trunk Transfers Sit to Stand with B hand assist to stand from 20 plinth, uses BLE to stabilize OP Gait Assessment Gait Gait Assistance Required: Standby Assistance Distance (Feet) 150 Assistive Devices Assistive Device Gait Belt Gait Deviations General Gait Pattern Antalgic,Decreased Feet Clearance,Flexed Trunk,Lateral Trunk Lean Factors Limiting Gait Function Factors Limiting Gait Function Decreased Activity Tolerance, Decreased Sensation,Decreased Strength,Limited Range of Motion,Pain,Poor Balance Comments Gait Comments Utilizes 3WW- decreased foot clearance, demos strong R trunk lean and flexed trunk PT-OP-H Neuro Start: 06/15/24 12:55 Freq: Status: Active Protocol: Document 06/15/24 12:59 NM (Rec: 06/15/24 14:52 NM [id number]) Coordination Evaluation Upper Extremity Tests Left Finger to Nose Test Moderate Impairment Alternate Nose to Finger Test Moderate Impairment Pronation/Supination Test Normal Performance Right Finger to Nose Test Moderate Impairment Alternate Nose to Finger Test Moderate Impairment Pronation/Supination Test Normal Performance Lower Extremity Tests Left Heel on Tian Test Moderate Impairment Right Heel on Tian Test Moderate Impairment PT-OP-J Posture/Palpation/Skin Start: 06/15/24 12:55 Freq: Status: Active Protocol: Document 06/15/24 12:59 NM (Rec: 06/15/24 14:52 NM [id number]) Posture Evaluation Position Standing Head/C-Spine Posture Forward Head L-Spine Posture Increased Lordosis,Fixed Scoliosis on (L),Flexed, Shifted Right Shoulder Posture (L) Rounded,(R) Rounded Scapula Posture (L) Protracted,(R) Elevated,(R ) Winged Arm Posture (L) Internally Rotated,(R) Internally Rotated Pelvis Posture (L) Rotated Anterior,(L) Iliac Crest Superior,(R) Iliac Crest Inferior Weight Distribution Weight Shifted Right Hip Posture (L) Externally Rotated,(R) Externally Rotated Knee Posture (L) Genu Valgus,(R) Genu Valgus Comments Posture Comments R rib hump, truncal shift L iliac crest elevated Palpation Assessment Location lumbar spine Palpation Details Tenderness along midline, especially R sided along spinous and transverse processes Tightness along L hip and paraspinals, L hip elevated PT-OP-K Range of Motion Start: 06/15/24 12:55 Freq: Status: Active Protocol: Document 06/15/24 12:59 NM (Rec: 06/15/24 14:52 NM [id number]) Lumbar Spine Range of Motion Lumbar Spine Active Percentage Testing Position Sitting Flexion 50 Extension 0 Rotation Left 0 Rotation Right 0 Lateral Flexion Left 25 Lateral Flexion Right 10 Comments All R sided motions painful Hip Goniometric Range of Motion Hip Right Internal Rotation 18 External Rotation 20 Left Internal Rotation 25 External Rotation 20 PT-OP-L Special Tests Start: 06/15/24 12:55 Freq: Status: Active Protocol: Document 06/15/24 12:59 NM (Rec: 06/15/24 14:52 NM [id number]) Special Tests Lumbar Spine Special Tests Slump Test Results + Comments B PT-OP-M Strength Start: 06/15/24 12:55 Freq: Status: Active Protocol: Document 06/15/24 12:59 NM (Rec: 06/15/24 14:52 NM [id number]) Trunk Strength Trunk Manual Muscle Testing Flexion 3 Fair Extension 3 Fair Rotation Left 3 Fair Rotation Right 3 Fair Lateral Flexion Left 3 Fair Lateral Flexion Right 3 Fair Comments Pain with all resisted motions , especially R sided Hip Strength Hip Manual Muscle Testing Right Flexion (L2) 4- Good- Extension (S1) 4- Good- Abduction 4- Good- Adduction 4- Good- External Rotation 3+ Fair+ Internal Rotation 3+ Fair+ Left Flexion (L2) 3+ Fair+ Extension (S1) 3+ Fair+ Abduction 3+ Fair+ Adduction 3+ Fair+ External Rotation 3+ Fair+ Internal Rotation 3+ Fair+ Knee Strength Knee Manual Muscle Testing Right Flexion (S2) 4- Good- Extension (L3) 4- Good- Left Flexion (S2) 4- Good- Extension (L3) 4- Good- Ankle/Foot Strength Ankle and Foot Manual Muscle Testing Right Dorsiflexion (L4) 3+ Fair+ Plantarflexion (S1) 3+ Fair+ Comments tested in sitting Left Dorsiflexion (L4) 3+ Fair+ Plantarflexion (S1) 3+ Fair+ Comments tested in sitting PT-OP-Q Treatments Start: 06/15/24 12:55 Freq: Status: Active Protocol: Document 07/04/24 13:03 NM (Rec: 07/04/24 13:47 NM [id number]) Therapeutic Exercises Sitting Exercises core isometrics Sitting Exercise Name 1. RA, 2. obliques Side bilateral Equipment Used kickball Reps/Minutes 10x3 ea Comments increased pain w/ R shoulder hip abduction Sitting Exercise Name 1. isometric, 2. clams ( performed individually) Side bilateral Resistance level 1 band Reps/Minutes 1. 60, 2. 2x10 ea Comments PT cueing for form; no back pain sit to stand Side bilateral Equipment Used 1 hand assist, CGA Reps/Minutes 5 w/o band, 5 w/ level 1 band at thighs to limit valgus Comments cued for scooting, ant WS; PT assist to stab if LOB or use of bar LAQ Sitting Exercise Name Knee ext HEP review Side bilateral Resistance AROM Reps/Minutes 2x10 ea Comments try band next time Hamstring stretch Sitting Exercise Name slight foot prop (HEP review) Side bilateral Reps/Minutes 10x5 holds ea leg Comments set up assist from PAVER LAYER Standing Exercises Hip Abd Standing Exercise Name Hip Abd (in PT) Reps/Minutes x8 Comments trialed again but R arm pain so d/c PT-OP-T Assessment and Plan Start: 06/15/24 12:55 Freq: Status: Active Protocol: Document 07/04/24 13:03 NM (Rec: 07/04/24 13:47 NM [id number]) Physical Therapy Assessment Goals Three Impairment impaired standing and ambulation tolerance Tip Stretcher Goal (LTG) Pt will improve 2 MWT distance by at least 100 ft in order to demonstrate improved ambulation distance, gait speed, and BLE strength for transfers/gait. LTG Duration 8 weeks Two Impairment decreased sitting tolerance Short Term Goal (STG) Pt will be educated on sitting ergonomics in order to promote midline alignment during sitting STG Duration 4 weeks Nursing Home Goal (LTG) Pt will report that she is able to sit >10 minutes without increase in low back pain in order to demonstrate improved symptom management and ADL tolerance LTG Duration 8 weeks One Impairment not performing HEP or any daily exercises for condition Nursing Home Goal (LTG) Pt will report compliance with HEP at least 2-3x/wk in order to maximize progress with PT and to facilitate transition to maintenance program LTG Duration 8 weeks Assessment Summary Assessment Pt tolerated session fair. Most limited by R shoulder pain with standing exercises or seated core exercises in addition to balance during standing exercises. Initiated sit to stand training today. Pt has several instances of loss of initial standing balance and has to reach for bars or have PT assist to prevent LOB. Pt able to rise from chair with 1 hand assist and CGA to steady. She has difficulty with eccentric lowering. No increase in back pain with seated exercises. Frequent cueing for posture and feedback about pain levels . Trialed standing exercise in bars with PT but pt has increased R shoulder pain, poor balance so did not add to HEP even with caregiver present for safety. Pt would benefit for skilled PT for progressive strengthening in order to improve symptom management and functional mobility. Physical Therapy Plan Frequency and Duration Frequency of Treatment 1-2x/wk Duration of treatment (weeks) 8 Plan of Care Start Date 06/15/24 Plan of Care End Date 08/10/24 Therapeutic Interventions Therapeutic Interventions Balance Training,Gait Training ,Home Exercise Program,Joint Mobilizations,Manual Therapy, Neuromuscular Re-education, Orthotic/Prosthetic Management ,Patient/Caregiver Education, Self-Care/Home Management, Sensory Integration,Soft Tissue Mobilization,Taping, Therapeutic Activities, Therapeutic Exercises Modalities Cold Pack/Ice Massage,Hot Packs Other Therapeutic Interventions No lumbar mobilizations Next Visit Focus/Plan Next Note Type Treatment Note Next Visit Plan Add band LAQ. Core w/op UE assist Biodex or scifit. STM to hips and lumbar spine if tolerated. Gentle standing or seated trunk stretching using lebanese ball. seated hip and knee exercises, stretches. Alternate with standing stretches/exercises (calf stretch, calf raise, marching, side steps, step up 4, hip ext or abd, lat pull down) STS training from elevated height with mirror, seated and gentle standing BLE strengthening. Body mechanics and ergonomics training
--- NOTE | 2024-07-06 11:49 | PT-OP ANOTE ---
NO SHOW- PT called pt's cell at [phone] and left message as pt did not attend her 1130 appt on 07/06. PT reminded pt of next upcoming appt on 07/11 at 1130. PT also reminded pt of attendance policy to call in advance if not going to attend. Also educated pt that this is 1st no show appt, and pt will be discharged from PT if 2nd no show occurs per attendance policy
--- NOTE | 2024-07-11 12:52 | PT.OTN ---
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 Caregiver Summer ( 8hrs) Visit Start Time 11:34 Visit Stop Time 12:14 Visit Number 01/14 Evaluation Information Evaluation Date 06/15/24 Precautions Precautions PMH: hx of acute stroke (may 2024), memory and aphasia, R visual deficits, R shoulder pain PT-OP-B Current Condition Start: 06/15/24 12:55 Freq: Status: Active Protocol: Document 06/15/24 12:59 NM (Rec: 06/15/24 14:52 NM [id number]) Current Condition History of Current Condition Onset Date chronic, ongoing Current Complaints pain History of Current Condition Pt presents to PT with chronic back pain, an ongoing problem for which she has had previous PT. She had a stroke on 05/09. She has memory, speech deficits, vision - R sided. She had 4 sessions of HHPT. She is having surgery on her shoulder- TBD, must wait due to stroke; planning to have a TSA (reports weak and painful) . She presents with a three wheel walker, 5 years of use. She has scoliosis. 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 She reports that she cannot stand without pain, sit without pain , reports increased pain with all motions. Worse with R sided. She has a hx of falls but no recent falls in several years. She reports that her last spine surgery was 5 years ago. She has not had an injection since October. She has arachnoiditis. Pt reports numbness/tingling in BLE to feet about 5 min- up to 1 hour , usually getting out of the car; R>L (calf). Presents with caregiver, Summer- 8 hrs/5x/ wk Prior Treatments and Tests Lumbar spine MRI, 10/2023: Stable MRI of lumbar spine. 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 Mid lumbar spine instrumentation and decompression. Lower lumbar spine interbody fusion. Treatment Goals Patient/Caregiver Goals pt wants to be able to stand, sit, walk without pain Current Functional Impairments (Reported) Functional Limitations- ADL's pain with dressing Functional Limitations- Mobility/Gait stand: 5 minutes ambulation w/ walker: 1 hour ea day with prn seated breaks intermittently sit: a few minutes transfers IND PT-OP-C Subjective Start: 06/15/24 12:55 Freq: Status: Active Protocol: Document 07/11/24 11:34 NM (Rec: 07/11/24 12:19 NM [id number]) OP-PT Subjective Patient Comments Patient Comments Pt continues to report that her back is improving. Has been standing/walking, more increase in activity overall; has PT-OP-E Functional Tests Start: 06/15/24 12:55 Freq: Status: Active Protocol: Document 06/26/24 14:43 SW (Rec: 06/26/24 15:53 SW [id number]) Functional Tests 2 Minute Walk Test Distance 311' Device Used pt walker Comments feet scuffing, right lateral lean, denies pain PT-OP-F Manual Assessment Start: 06/15/24 12:55 Freq: Status: Active Protocol: Document 06/15/24 12:59 NM (Rec: 06/15/24 14:52 NM [id number]) Manual Assessments Soft Tissue Assessment Soft Tissue Mobility Assessment Restrictions of B hamstrings, hip flexors, L paraspinals and QL Joint Mobility Assessment Joint Mobility Assessment Hypomobility of thoracolumbar spine PT-OP-G Mobility & Gait Start: 06/15/24 12:55 Freq: Status: Active Protocol: Document 06/15/24 12:59 NM (Rec: 06/15/24 14:52 NM [id number]) OP Mobility Evaluation Bed Mobility Supine to and from Sit min A at trunk Transfers Sit to Stand with B hand assist to stand from 20 plinth, uses BLE to stabilize OP Gait Assessment Gait Gait Assistance Required: Standby Assistance Distance (Feet) 150 Assistive Devices Assistive Device Gait Belt Gait Deviations General Gait Pattern Antalgic,Decreased Feet Clearance,Flexed Trunk,Lateral Trunk Lean Factors Limiting Gait Function Factors Limiting Gait Function Decreased Activity Tolerance, Decreased Sensation,Decreased Strength,Limited Range of Motion,Pain,Poor Balance Comments Gait Comments Utilizes 3WW- decreased foot clearance, demos strong R trunk lean and flexed trunk PT-OP-H Neuro Start: 06/15/24 12:55 Freq: Status: Active Protocol: Document 06/15/24 12:59 NM (Rec: 06/15/24 14:52 NM [id number]) Coordination Evaluation Upper Extremity Tests Left Finger to Nose Test Moderate Impairment Alternate Nose to Finger Test Moderate Impairment Pronation/Supination Test Normal Performance Right Finger to Nose Test Moderate Impairment Alternate Nose to Finger Test Moderate Impairment Pronation/Supination Test Normal Performance Lower Extremity Tests Left Heel on Tian Test Moderate Impairment Right Heel on Tian Test Moderate Impairment PT-OP-J Posture/Palpation/Skin Start: 06/15/24 12:55 Freq: Status: Active Protocol: Document 06/15/24 12:59 NM (Rec: 06/15/24 14:52 NM [id number]) Posture Evaluation Position Standing Head/C-Spine Posture Forward Head L-Spine Posture Increased Lordosis,Fixed Scoliosis on (L),Flexed, Shifted Right Shoulder Posture (L) Rounded,(R) Rounded Scapula Posture (L) Protracted,(R) Elevated,(R ) Winged Arm Posture (L) Internally Rotated,(R) Internally Rotated Pelvis Posture (L) Rotated Anterior,(L) Iliac Crest Superior,(R) Iliac Crest Inferior Weight Distribution Weight Shifted Right Hip Posture (L) Externally Rotated,(R) Externally Rotated Knee Posture (L) Genu Valgus,(R) Genu Valgus Comments Posture Comments R rib hump, truncal shift L iliac crest elevated Palpation Assessment Location lumbar spine Palpation Details Tenderness along midline, especially R sided along spinous and transverse processes Tightness along L hip and paraspinals, L hip elevated PT-OP-K Range of Motion Start: 06/15/24 12:55 Freq: Status: Active Protocol: Document 06/15/24 12:59 NM (Rec: 06/15/24 14:52 NM [id number]) Lumbar Spine Range of Motion Lumbar Spine Active Percentage Testing Position Sitting Flexion 50 Extension 0 Rotation Left 0 Rotation Right 0 Lateral Flexion Left 25 Lateral Flexion Right 10 Comments All R sided motions painful Hip Goniometric Range of Motion Hip Right Internal Rotation 18 External Rotation 20 Left Internal Rotation 25 External Rotation 20 PT-OP-L Special Tests Start: 06/15/24 12:55 Freq: Status: Active Protocol: Document 06/15/24 12:59 NM (Rec: 06/15/24 14:52 NM [id number]) Special Tests Lumbar Spine Special Tests Slump Test Results + Comments B PT-OP-M Strength Start: 06/15/24 12:55 Freq: Status: Active Protocol: Document 06/15/24 12:59 NM (Rec: 06/15/24 14:52 NM [id number]) Trunk Strength Trunk Manual Muscle Testing Flexion 3 Fair Extension 3 Fair Rotation Left 3 Fair Rotation Right 3 Fair Lateral Flexion Left 3 Fair Lateral Flexion Right 3 Fair Comments Pain with all resisted motions , especially R sided Hip Strength Hip Manual Muscle Testing Right Flexion (L2) 4- Good- Extension (S1) 4- Good- Abduction 4- Good- Adduction 4- Good- External Rotation 3+ Fair+ Internal Rotation 3+ Fair+ Left Flexion (L2) 3+ Fair+ Extension (S1) 3+ Fair+ Abduction 3+ Fair+ Adduction 3+ Fair+ External Rotation 3+ Fair+ Internal Rotation 3+ Fair+ Knee Strength Knee Manual Muscle Testing Right Flexion (S2) 4- Good- Extension (L3) 4- Good- Left Flexion (S2) 4- Good- Extension (L3) 4- Good- Ankle/Foot Strength Ankle and Foot Manual Muscle Testing Right Dorsiflexion (L4) 3+ Fair+ Plantarflexion (S1) 3+ Fair+ Comments tested in sitting Left Dorsiflexion (L4) 3+ Fair+ Plantarflexion (S1) 3+ Fair+ Comments tested in sitting PT-OP-Q Treatments Start: 06/15/24 12:55 Freq: Status: Active Protocol: Document 07/11/24 11:34 NM (Rec: 07/11/24 12:19 NM [id number]) Gym Equipment Shuttle Recovery Bilateral Squats Details CGA to assist off Resistance 75# (2 teal) Shuttle Recovery Platform Stable Reps/Time 4x10 Therapeutic Exercises Sitting Exercises sit to stand Side bilateral Equipment Used 1 hand assist, CGA, level 1 band at thighs to limit valgus Reps/Minutes 10 - edu to use L hand for future R shldr surgery; 5 w/o UE assist Comments PT assist to stab if LOB 1x w/ o UE assist LAQ Sitting Exercise Name HEP review Side bilateral Resistance level 1 band at ankles Reps/Minutes 10 ea w/ band and 10 AROM Comments R harder for pt, no TKE HS curl Sitting Exercise Name HEP review Side bilateral Resistance level 1 band Reps/Minutes 2x10 Standing Exercises side steps Side bilateral Resistance AROM Equipment Used 1-2 hand support (L on ballet bar) Reps/Minutes 2x10 ft ea direction Comments CGA-min A; strong trunk lean R d/t curve Other Exercises 2 MWT Other Exercise Name with triangle walker Reps/Minutes 326 ft PT-OP-T Assessment and Plan Start: 06/15/24 12:55 Freq: Status: Active Protocol: Document 07/11/24 11:34 NM (Rec: 07/11/24 12:19 NM [id number]) Physical Therapy Assessment Goals Three Impairment impaired standing and ambulation tolerance Snf Goal (LTG) Pt will improve 2 MWT distance by at least 100 ft in order to demonstrate improved ambulation distance, gait speed, and BLE strength for transfers/gait. 07/11/24: 326 ft with triangle walker/3WW (initial 311 ft) LTG Duration 8 weeks Two Impairment decreased sitting tolerance Short Term Goal (STG) Pt will be educated on sitting ergonomics in order to promote midline alignment during sitting 07/11/24: issued HO with picture for midline alignment, educate at evaluation and during sessions with PT about postural alignment STG Duration 4 weeks Snf Goal (LTG) Pt will report that she is able to sit >10 minutes without increase in low back pain in order to demonstrate improved symptom management and ADL tolerance 07/11/24: pt reports that she can sit for at least 20 minutes before she has an increase in low back pain or has to change positions due to pain LTG Duration 8 weeks MET One Impairment not performing HEP or any daily exercises for condition Snf Goal (LTG) Pt will report compliance with HEP at least 2-3x/wk in order to maximize progress with PT and to facilitate transition to maintenance program 07/11/24: reports has not been doing exercises except occasionally; has been ambulating, doing more upright activity LTG Duration 8 weeks Progress Towards Goals Progress Towards Goals Progressing Toward Goals,Goals Met Assessment Summary Assessment Pt tolerated session well and able to progress to BLE strengthening on leg press. STS training with L hand assist to decrease R shoulder pain. Able to do 4 reps without UE assist but on 5th rep, needs assist from PT due to loss of standing balance. Progressed resistance on seated exercises with good tolerance; however, pt quad weaker on RLE. Challenging to maintain neutral trunk/hip position during lateral stepping. Educated pt on sitting posture to promote better awareness of midline positioning vs R trunk lean. Will continue to address in upcoming sessions. Increased 2 MWT distance to 326 ft. Pt would continue to benefit from skilled PT for progressive strengthening in order to improve functional mobility for gait and transfers. Physical Therapy Plan Frequency and Duration Frequency of Treatment 1-2x/wk Duration of treatment (weeks) 8 Plan of Care Start Date 06/15/24 Plan of Care End Date 08/10/24 Therapeutic Interventions Therapeutic Interventions Balance Training,Gait Training ,Home Exercise Program,Joint Mobilizations,Manual Therapy, Neuromuscular Re-education, Orthotic/Prosthetic Management ,Patient/Caregiver Education, Self-Care/Home Management, Sensory Integration,Soft Tissue Mobilization,Taping, Therapeutic Activities, Therapeutic Exercises Modalities Cold Pack/Ice Massage,Hot Packs Other Therapeutic Interventions No lumbar mobilizations Next Visit Focus/Plan Next Note Type Treatment Note Next Visit Plan Cont with leg press, can trial step ups. Work on balance and endurance. standing exercises with respect to R shoulder pain. cont with strengthening BLE and core, STS and initial standing balance. Core w/op UE assist Biodex or scifit. STM to hips and lumbar spine if tolerated. Gentle standing or seated trunk stretching using bruneian ball. seated hip and knee exercises, stretches. Alternate with standing stretches/exercises (calf stretch, calf raise, marching, side steps, step up 4, hip ext or abd, lat pull down) STS training from elevated height with mirror, seated and gentle standing BLE strengthening. Body mechanics and ergonomics training
--- NOTE | 2024-07-13 12:19 | PT.OTN ---
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 Caregiver Summer ( 8hrs) Visit Start Time 11:33 Visit Stop Time 12:17 Visit Number 02/14 Number of AURICULAR ACUPUNCTURIST Visits 1 Evaluation Information Evaluation Date 06/15/24 Precautions Precautions PMH: hx of acute stroke (may 2024), memory and aphasia, R visual deficits, R shoulder pain PT-OP-B Current Condition Start: 06/15/24 12:55 Freq: Status: Active Protocol: Document 06/15/24 12:59 NM (Rec: 06/15/24 14:52 NM [id number]) Current Condition History of Current Condition Onset Date chronic, ongoing Current Complaints pain History of Current Condition Pt presents to PT with chronic back pain, an ongoing problem for which she has had previous PT. She had a stroke on 05/09. She has memory, speech deficits, vision - R sided. She had 4 sessions of HHPT. She is having surgery on her shoulder- TBD, must wait due to stroke; planning to have a TSA (reports weak and painful) . She presents with a three wheel walker, 5 years of use. She has scoliosis. 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 She reports that she cannot stand without pain, sit without pain , reports increased pain with all motions. Worse with R sided. She has a hx of falls but no recent falls in several years. She reports that her last spine surgery was 5 years ago. She has not had an injection since October. She has arachnoiditis. Pt reports numbness/tingling in BLE to feet about 5 min- up to 1 hour , usually getting out of the car; R>L (calf). Presents with caregiver, Summer- 8 hrs/5x/ wk Prior Treatments and Tests Lumbar spine MRI, 10/2023: Stable MRI of lumbar spine. 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 Mid lumbar spine instrumentation and decompression. Lower lumbar spine interbody fusion. Treatment Goals Patient/Caregiver Goals pt wants to be able to stand, sit, walk without pain Current Functional Impairments (Reported) Functional Limitations- ADL's pain with dressing Functional Limitations- Mobility/Gait stand: 5 minutes ambulation w/ walker: 1 hour ea day with prn seated breaks intermittently sit: a few minutes transfers IND PT-OP-C Subjective Start: 06/15/24 12:55 Freq: Status: Active Protocol: Document 07/13/24 10:38 AB (Rec: 07/13/24 12:19 AB [id number]) OP-PT Subjective Patient Comments Patient Comments Patient reports she is the same, has had no falls since previous session. Patient reports having no pain start of session. Patient backs partially to chair prior to stand to sit. SLS without UE use 2 sec left 1 sec right LE start of session. PT-OP-E Functional Tests Start: 06/15/24 12:55 Freq: Status: Active Protocol: Document 06/26/24 14:43 SW (Rec: 06/26/24 15:53 SW [id number]) Functional Tests 2 Minute Walk Test Distance 311' Device Used pt walker Comments feet scuffing, right lateral lean, denies pain PT-OP-F Manual Assessment Start: 06/15/24 12:55 Freq: Status: Active Protocol: Document 06/15/24 12:59 NM (Rec: 06/15/24 14:52 NM [id number]) Manual Assessments Soft Tissue Assessment Soft Tissue Mobility Assessment Restrictions of B hamstrings, hip flexors, L paraspinals and QL Joint Mobility Assessment Joint Mobility Assessment Hypomobility of thoracolumbar spine PT-OP-G Mobility & Gait Start: 06/15/24 12:55 Freq: Status: Active Protocol: Document 06/15/24 12:59 NM (Rec: 06/15/24 14:52 NM [id number]) OP Mobility Evaluation Bed Mobility Supine to and from Sit min A at trunk Transfers Sit to Stand with B hand assist to stand from 20 plinth, uses BLE to stabilize OP Gait Assessment Gait Gait Assistance Required: Standby Assistance Distance (Feet) 150 Assistive Devices Assistive Device Gait Belt Gait Deviations General Gait Pattern Antalgic,Decreased Feet Clearance,Flexed Trunk,Lateral Trunk Lean Factors Limiting Gait Function Factors Limiting Gait Function Decreased Activity Tolerance, Decreased Sensation,Decreased Strength,Limited Range of Motion,Pain,Poor Balance Comments Gait Comments Utilizes 3WW- decreased foot clearance, demos strong R trunk lean and flexed trunk PT-OP-H Neuro Start: 06/15/24 12:55 Freq: Status: Active Protocol: Document 06/15/24 12:59 NM (Rec: 06/15/24 14:52 NM [id number]) Coordination Evaluation Upper Extremity Tests Left Finger to Nose Test Moderate Impairment Alternate Nose to Finger Test Moderate Impairment Pronation/Supination Test Normal Performance Right Finger to Nose Test Moderate Impairment Alternate Nose to Finger Test Moderate Impairment Pronation/Supination Test Normal Performance Lower Extremity Tests Left Heel on Tian Test Moderate Impairment Right Heel on Tian Test Moderate Impairment PT-OP-J Posture/Palpation/Skin Start: 06/15/24 12:55 Freq: Status: Active Protocol: Document 06/15/24 12:59 NM (Rec: 06/15/24 14:52 NM [id number]) Posture Evaluation Position Standing Head/C-Spine Posture Forward Head L-Spine Posture Increased Lordosis,Fixed Scoliosis on (L),Flexed, Shifted Right Shoulder Posture (L) Rounded,(R) Rounded Scapula Posture (L) Protracted,(R) Elevated,(R ) Winged Arm Posture (L) Internally Rotated,(R) Internally Rotated Pelvis Posture (L) Rotated Anterior,(L) Iliac Crest Superior,(R) Iliac Crest Inferior Weight Distribution Weight Shifted Right Hip Posture (L) Externally Rotated,(R) Externally Rotated Knee Posture (L) Genu Valgus,(R) Genu Valgus Comments Posture Comments R rib hump, truncal shift L iliac crest elevated Palpation Assessment Location lumbar spine Palpation Details Tenderness along midline, especially R sided along spinous and transverse processes Tightness along L hip and paraspinals, L hip elevated PT-OP-K Range of Motion Start: 06/15/24 12:55 Freq: Status: Active Protocol: Document 06/15/24 12:59 NM (Rec: 06/15/24 14:52 NM [id number]) Lumbar Spine Range of Motion Lumbar Spine Active Percentage Testing Position Sitting Flexion 50 Extension 0 Rotation Left 0 Rotation Right 0 Lateral Flexion Left 25 Lateral Flexion Right 10 Comments All R sided motions painful Hip Goniometric Range of Motion Hip Right Internal Rotation 18 External Rotation 20 Left Internal Rotation 25 External Rotation 20 PT-OP-L Special Tests Start: 06/15/24 12:55 Freq: Status: Active Protocol: Document 06/15/24 12:59 NM (Rec: 06/15/24 14:52 NM [id number]) Special Tests Lumbar Spine Special Tests Slump Test Results + Comments B PT-OP-M Strength Start: 06/15/24 12:55 Freq: Status: Active Protocol: Document 06/15/24 12:59 NM (Rec: 06/15/24 14:52 NM [id number]) Trunk Strength Trunk Manual Muscle Testing Flexion 3 Fair Extension 3 Fair Rotation Left 3 Fair Rotation Right 3 Fair Lateral Flexion Left 3 Fair Lateral Flexion Right 3 Fair Comments Pain with all resisted motions , especially R sided Hip Strength Hip Manual Muscle Testing Right Flexion (L2) 4- Good- Extension (S1) 4- Good- Abduction 4- Good- Adduction 4- Good- External Rotation 3+ Fair+ Internal Rotation 3+ Fair+ Left Flexion (L2) 3+ Fair+ Extension (S1) 3+ Fair+ Abduction 3+ Fair+ Adduction 3+ Fair+ External Rotation 3+ Fair+ Internal Rotation 3+ Fair+ Knee Strength Knee Manual Muscle Testing Right Flexion (S2) 4- Good- Extension (L3) 4- Good- Left Flexion (S2) 4- Good- Extension (L3) 4- Good- Ankle/Foot Strength Ankle and Foot Manual Muscle Testing Right Dorsiflexion (L4) 3+ Fair+ Plantarflexion (S1) 3+ Fair+ Comments tested in sitting Left Dorsiflexion (L4) 3+ Fair+ Plantarflexion (S1) 3+ Fair+ Comments tested in sitting PT-OP-Q Treatments Start: 06/15/24 12:55 Freq: Status: Active Protocol: Document 07/13/24 10:38 AB (Rec: 07/13/24 12:19 AB [id number]) Gym Equipment Shuttle Recovery Bilateral Squats Resistance 75# (2 teal) Shuttle Recovery Platform Stable Reps/Time X10 X Therapeutic Exercises Sitting Exercises hip abduction Sitting Exercise Name 1. isometric, 2. clams ( performed individually) Side bilateral Resistance level 1 band Equipment Used HEP Reps/Minutes 1. 60, 2. 2x15 ea Comments verbal cues for direction of movement and for patient to tie band LAQ Sitting Exercise Name HEP review Side bilateral Resistance level 1 band at ankles Reps/Minutes X10 Comments Verbal cues HS curl Sitting Exercise Name HEP review Side bilateral Resistance level 1 band Reps/Minutes X10 Comments Verbal cues Neuro Re-Education Treatment Balance Activities tilt board Details lat, fwd/back Equipment tilt board Reps/Duration X10 each direction Comments CGA hands above bars Romberg Details with eyes closed, hands above bars Surface on foam Reps/Duration X3 Comments CGA step up taps Details CGa to minimal assist initiates with UE above bar then requires use of bar Reps/Duration X10 left tap X right X 4 6 inch step then X2 4 inch step X5 1.5 inch block retro stepping Details CGA hands above bars Reps/Duration 10 feet X 2 tandem stepping Details CGA hands above bars Reps/Duration 10 feet X 2 PT-OP-T Assessment and Plan Start: 06/15/24 12:55 Freq: Status: Active Protocol: Document 07/13/24 10:38 AB (Rec: 07/13/24 12:19 AB [id number]) Physical Therapy Assessment Goals Three Impairment impaired standing and ambulation tolerance [employer] We[employer] Cust[employer]ian Goal (LTG) Pt will improve 2 MWT distance by at least 100 ft in order to demonstrate improved ambulation distance, gait speed, and BLE strength for transfers/gait. 07/11/24: 326 ft with triangle walker/3WW (initial 311 ft) LTG Duration 8 weeks Two Impairment decreased sitting tolerance Short Term Goal (STG) Pt will be educated on sitting ergonomics in order to promote midline alignment during sitting 07/11/24: issued HO with picture for midline alignment, educate at evaluation and during sessions with PT about postural alignment STG Duration 4 weeks Nuclear We[employer] Custodian Goal (LTG) Pt will report that she is able to sit >10 minutes without increase in low back pain in order to demonstrate improved symptom management and ADL tolerance 07/11/24: pt reports that she can sit for at least 20 minutes before she has an increase in low back pain or has to change positions due to pain LTG Duration 8 weeks MET One Impairment not performing HEP or any daily exercises for condition Retirement Goal (LTG) Pt will report compliance with HEP at least 2-3x/wk in order to maximize progress with PT and to facilitate transition to maintenance program 07/11/24: reports has not been doing exercises except occasionally; has been ambulating, doing more upright activity LTG Duration 8 weeks Assessment Summary Assessment Increased SLS left and right LE 3-4 sec post glute med activation, not yet WNL. Janet rates right LE pain 10/15 end of session. Physical Therapy Plan Frequency and Duration Frequency of Treatment 1-2x/wk Duration of treatment (weeks) 8 Plan of Care Start Date 06/15/24 Plan of Care End Date 08/10/24 Next Visit Focus/Plan Next Note Type Treatment Note Next Visit Plan Cont with leg press, can trial step ups. Work on balance and endurance. standing exercises with respect to R shoulder pain. cont with strengthening BLE and core, STS and initial standing balance. Core w/op UE assist Biodex or scifit. STM to hips and lumbar spine if tolerated. Gentle standing or seated trunk stretching using citizen [place] ball. seated hip and knee exercises, stretches. Alternate with standing stretches/exercises ( Next session focus on calf ex )calf stretch, calf raise, marching , side steps, step up 4, hip ext or abd, lat pull down) STS training from elevated height with mirror, seated and gentle standing BLE strengthening. Body mechanics and ergonomics training
--- NOTE | 2024-07-17 16:16 | PT.OTN ---
Current Diagnoses Chronic pain syndrome (07/17/24) Spondylosis without myelopathy or radiculopathy, lumbar region (07/17/24) Radiculopathy, lumbar region (07/17/24) Other lack of coordination (07/17/24) Weakness (07/17/24) Arthrodesis status (07/17/24) Physical Therapy Treatment Note PT-OP-A Visit Information Start: 06/15/24 12:55 Freq: Status: Active Protocol: Document 07/17/24 12:30 AB (Rec: 07/17/24 16:16 AB [id number]) Out-Patient Physical Therapy Visit Information Visit Information Visit Type Treatment Note Visit Note 12 visits approved. Caregiver Summer ( 8hrs) Visit Start Time 13:48 Visit Stop Time 14:30 Visit Number 03/16 Number of CHANGE MANAGEMENT CONSULTANT Visits 2 Evaluation Information Evaluation Date 06/15/24 Precautions Precautions PMH: hx of acute stroke (may 2024), memory and aphasia, R visual deficits, R shoulder pain PT-OP-B Current Condition Start: 06/15/24 12:55 Freq: Status: Active Protocol: Document 06/15/24 12:59 NM (Rec: 06/15/24 14:52 NM [id number]) Current Condition History of Current Condition Onset Date chronic, ongoing Current Complaints pain History of Current Condition Pt presents to PT with chronic back pain, an ongoing problem for which she has had previous PT. She had a stroke on 05/09. She has memory, speech deficits, vision - R sided. She had 4 sessions of HHPT. She is having surgery on her shoulder- TBD, must wait due to stroke; planning to have a TSA (reports weak and painful) . She presents with a three wheel walker, 5 years of use. She has scoliosis. 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 She reports that she cannot stand without pain, sit without pain , reports increased pain with all motions. Worse with R sided. She has a hx of falls but no recent falls in several years. She reports that her last spine surgery was 5 years ago. She has not had an injection since October. She has arachnoiditis. Pt reports numbness/tingling in BLE to feet about 5 min- up to 1 hour , usually getting out of the car; R>L (calf). Presents with caregiver, Summer- 8 hrs/5x/ wk Prior Treatments and Tests Lumbar spine MRI, 10/2023: Stable MRI of lumbar spine. 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 Mid lumbar spine instrumentation and decompression. Lower lumbar spine interbody fusion. Treatment Goals Patient/Caregiver Goals pt wants to be able to stand, sit, walk without pain Current Functional Impairments (Reported) Functional Limitations- ADL's pain with dressing Functional Limitations- Mobility/Gait stand: 5 minutes ambulation w/ walker: 1 hour ea day with prn seated breaks intermittently sit: a few minutes transfers IND PT-OP-C Subjective Start: 06/15/24 12:55 Freq: Status: Active Protocol: Document 07/17/24 12:30 AB (Rec: 07/17/24 16:16 AB [id number]) OP-PT Subjective Patient Comments Patient Comments Patient reports she was fine post previous session. Patient reports she a little more, not much more. Patient reports having no pain start of session, comments she has been really thirsty. SLS without UE use 2 sec left 1 sec right LE start of session. PT-OP-E Functional Tests Start: 06/15/24 12:55 Freq: Status: Active Protocol: Document 06/26/24 14:43 SW (Rec: 06/26/24 15:53 SW [id number]) Functional Tests 2 Minute Walk Test Distance 311' Device Used pt walker Comments feet scuffing, right lateral lean, denies pain PT-OP-F Manual Assessment Start: 06/15/24 12:55 Freq: Status: Active Protocol: Document 06/15/24 12:59 NM (Rec: 06/15/24 14:52 NM [id number]) Manual Assessments Soft Tissue Assessment Soft Tissue Mobility Assessment Restrictions of B hamstrings, hip flexors, L paraspinals and QL Joint Mobility Assessment Joint Mobility Assessment Hypomobility of thoracolumbar spine PT-OP-G Mobility & Gait Start: 06/15/24 12:55 Freq: Status: Active Protocol: Document 06/15/24 12:59 NM (Rec: 06/15/24 14:52 NM [id number]) OP Mobility Evaluation Bed Mobility Supine to and from Sit min A at trunk Transfers Sit to Stand with B hand assist to stand from 20 plinth, uses BLE to stabilize OP Gait Assessment Gait Gait Assistance Required: Standby Assistance Distance (Feet) 150 Assistive Devices Assistive Device Gait Belt Gait Deviations General Gait Pattern Antalgic,Decreased Feet Clearance,Flexed Trunk,Lateral Trunk Lean Factors Limiting Gait Function Factors Limiting Gait Function Decreased Activity Tolerance, Decreased Sensation,Decreased Strength,Limited Range of Motion,Pain,Poor Balance Comments Gait Comments Utilizes 3WW- decreased foot clearance, demos strong R trunk lean and flexed trunk PT-OP-H Neuro Start: 06/15/24 12:55 Freq: Status: Active Protocol: Document 06/15/24 12:59 NM (Rec: 06/15/24 14:52 NM [id number]) Coordination Evaluation Upper Extremity Tests Left Finger to Nose Test Moderate Impairment Alternate Nose to Finger Test Moderate Impairment Pronation/Supination Test Normal Performance Right Finger to Nose Test Moderate Impairment Alternate Nose to Finger Test Moderate Impairment Pronation/Supination Test Normal Performance Lower Extremity Tests Left Heel on Tian Test Moderate Impairment Right Heel on Tian Test Moderate Impairment PT-OP-J Posture/Palpation/Skin Start: 06/15/24 12:55 Freq: Status: Active Protocol: Document 06/15/24 12:59 NM (Rec: 06/15/24 14:52 NM [id number]) Posture Evaluation Position Standing Head/C-Spine Posture Forward Head L-Spine Posture Increased Lordosis,Fixed Scoliosis on (L),Flexed, Shifted Right Shoulder Posture (L) Rounded,(R) Rounded Scapula Posture (L) Protracted,(R) Elevated,(R ) Winged Arm Posture (L) Internally Rotated,(R) Internally Rotated Pelvis Posture (L) Rotated Anterior,(L) Iliac Crest Superior,(R) Iliac Crest Inferior Weight Distribution Weight Shifted Right Hip Posture (L) Externally Rotated,(R) Externally Rotated Knee Posture (L) Genu Valgus,(R) Genu Valgus Comments Posture Comments R rib hump, truncal shift L iliac crest elevated Palpation Assessment Location lumbar spine Palpation Details Tenderness along midline, especially R sided along spinous and transverse processes Tightness along L hip and paraspinals, L hip elevated PT-OP-K Range of Motion Start: 06/15/24 12:55 Freq: Status: Active Protocol: Document 06/15/24 12:59 NM (Rec: 06/15/24 14:52 NM [id number]) Lumbar Spine Range of Motion Lumbar Spine Active Percentage Testing Position Sitting Flexion 50 Extension 0 Rotation Left 0 Rotation Right 0 Lateral Flexion Left 25 Lateral Flexion Right 10 Comments All R sided motions painful Hip Goniometric Range of Motion Hip Right Internal Rotation 18 External Rotation 20 Left Internal Rotation 25 External Rotation 20 PT-OP-L Special Tests Start: 06/15/24 12:55 Freq: Status: Active Protocol: Document 06/15/24 12:59 NM (Rec: 06/15/24 14:52 NM [id number]) Special Tests Lumbar Spine Special Tests Slump Test Results + Comments B PT-OP-M Strength Start: 06/15/24 12:55 Freq: Status: Active Protocol: Document 06/15/24 12:59 NM (Rec: 06/15/24 14:52 NM [id number]) Trunk Strength Trunk Manual Muscle Testing Flexion 3 Fair Extension 3 Fair Rotation Left 3 Fair Rotation Right 3 Fair Lateral Flexion Left 3 Fair Lateral Flexion Right 3 Fair Comments Pain with all resisted motions , especially R sided Hip Strength Hip Manual Muscle Testing Right Flexion (L2) 4- Good- Extension (S1) 4- Good- Abduction 4- Good- Adduction 4- Good- External Rotation 3+ Fair+ Internal Rotation 3+ Fair+ Left Flexion (L2) 3+ Fair+ Extension (S1) 3+ Fair+ Abduction 3+ Fair+ Adduction 3+ Fair+ External Rotation 3+ Fair+ Internal Rotation 3+ Fair+ Knee Strength Knee Manual Muscle Testing Right Flexion (S2) 4- Good- Extension (L3) 4- Good- Left Flexion (S2) 4- Good- Extension (L3) 4- Good- Ankle/Foot Strength Ankle and Foot Manual Muscle Testing Right Dorsiflexion (L4) 3+ Fair+ Plantarflexion (S1) 3+ Fair+ Comments tested in sitting Left Dorsiflexion (L4) 3+ Fair+ Plantarflexion (S1) 3+ Fair+ Comments tested in sitting PT-OP-Q Treatments Start: 06/15/24 12:55 Freq: Status: Active Protocol: Document 07/17/24 12:30 AB (Rec: 07/17/24 16:16 AB [id number]) Gym Equipment Shuttle Recovery Unilateral Squats Resistance 50# Shuttle Recovery Platform Stable Reps/Time X15 Bilateral Squats Details CGA to assist off Resistance 75# (2 teal) Shuttle Recovery Platform Stable Reps/Time X10 X2 Therapeutic Exercises Sitting Exercises honduran ball roll out Sitting Exercise Name fwd Side bilateral Reps/Minutes X10 X2 between standing ex Comments verbal and visual cues core isometrics Sitting Exercise Name 1. RA, 2. obliques Side bilateral Equipment Used manual resistance Reps/Minutes X12 each hip abduction Sitting Exercise Name 1. isometric, 2. clams ( performed individually) Side bilateral Resistance level 1 band Equipment Used HEP Reps/Minutes 1. 60, 2. 2x15 ea Comments verbal cues for direction of movement and for patient to tie band Standing Exercises calf stretches Standing Exercise Name Soleus and gastroc on MICKEY Side bilateral Reps/Minutes 60 se each Comments verbal cues Calf raises Side bilateral Reps/Minutes X10 Comments Verbal cues Neuro Re-Education Treatment Balance Activities tilt board Details lat, fwd/back Equipment tilt board Reps/Duration X10 each direction Comments CGA to Mod assist for AP this session hands above bars Romberg Details with eyes closed, hands above bars Surface on foam Reps/Duration X5 Comments CGA to mod assist step up taps Details CGa to minimal assist initiates with UE above bar then requires use of bar Equipment 2 inch block Reps/Duration X10 retro stepping Details CGA hands above bars Reps/Duration 10 feet X 3 tandem stepping Details CGA hands above bars Reps/Duration 10 feet X 3 PT-OP-T Assessment and Plan Start: 06/15/24 12:55 Freq: Status: Active Protocol: Document 07/17/24 12:30 AB (Rec: 07/17/24 16:16 AB [id number]) Physical Therapy Assessment Goals Three Impairment impaired standing and ambulation tolerance Bisque Kiln Drawer Goal (LTG) Pt will improve 2 MWT distance by at least 100 ft in order to demonstrate improved ambulation distance, gait speed, and BLE strength for transfers/gait. 07/11/24: 326 ft with triangle walker/3WW (initial 311 ft) LTG Duration 8 weeks Two Impairment decreased sitting tolerance Short Term Goal (STG) Pt will be educated on sitting ergonomics in order to promote midline alignment during sitting 07/11/24: issued HO with picture for midline alignment, educate at evaluation and during sessions with PT about postural alignment STG Duration 4 weeks Bisque Kiln Drawer Goal (LTG) Pt will report that she is able to sit >10 minutes without increase in low back pain in order to demonstrate improved symptom management and ADL tolerance 07/11/24: pt reports that she can sit for at least 20 minutes before she has an increase in low back pain or has to change positions due to pain LTG Duration 8 weeks MET One Impairment not performing HEP or any daily exercises for condition Skilled Nursing Goal (LTG) Pt will report compliance with HEP at least 2-3x/wk in order to maximize progress with PT and to facilitate transition to maintenance program 07/11/24: reports has not been doing exercises except occasionally; has been ambulating, doing more upright activity LTG Duration 8 weeks Assessment Summary Assessment Increased assist required with Romberg and tilt board, likely due to performing end of balance exercises ie fatigue. Patient reports having no pain ed of session. Physical Therapy Plan Frequency and Duration Frequency of Treatment 1-2x/wk Duration of treatment (weeks) 8 Plan of Care Start Date 06/15/24 Plan of Care End Date 08/10/24 Next Visit Focus/Plan Next Note Type Treatment Note Next Visit Plan Cont with leg press, can trial step ups. Work on balance and endurance. standing exercises with respect to R shoulder pain. cont with strengthening BLE and core, STS and initial standing balance. Core w/op UE assist Biodex or scifit. STM to hips and lumbar spine if tolerated. Gentle standing or seated trunk stretching using honduran ball. seated hip and knee exercises, stretches. Alternate with standing stretches/exercises ( Next session focus on calf ex calf stretch,(calf raise to HEP possibly), marching, side steps, step up 4, hip ext or abd, lat pull down) STS training from elevated height with mirror, seated and gentle standing BLE strengthening. Body mechanics and ergonomics training
--- NOTE | 2024-07-20 15:51 | PT.OTN ---
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 Caregiver Summer ( 8hrs) Visit Start Time 13:48 Visit Stop Time 14:30 Visit Number 04/16 PT-OP-B Current Condition Start: 06/15/24 12:55 Freq: Status: Active Protocol: Document 06/15/24 12:59 NM (Rec: 06/15/24 14:52 NM [id number]) Current Condition History of Current Condition Onset Date chronic, ongoing Current Complaints pain History of Current Condition Pt presents to PT with chronic back pain, an ongoing problem for which she has had previous PT. She had a stroke on 05/09. She has memory, speech deficits, vision - R sided. She had 4 sessions of HHPT. She is having surgery on her shoulder- TBD, must wait due to stroke; planning to have a TSA (reports weak and painful) . She presents with a three wheel walker, 5 years of use. She has scoliosis. 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 She reports that she cannot stand without pain, sit without pain , reports increased pain with all motions. Worse with R sided. She has a hx of falls but no recent falls in several years. She reports that her last spine surgery was 5 years ago. She has not had an injection since October. She has arachnoiditis. Pt reports numbness/tingling in BLE to feet about 5 min- up to 1 hour , usually getting out of the car; R>L (calf). Presents with caregiver, Summer- 8 hrs/5x/ wk Prior Treatments and Tests Lumbar spine MRI, 10/2023: Stable MRI of lumbar spine. 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 Mid lumbar spine instrumentation and decompression. Lower lumbar spine interbody fusion. Treatment Goals Patient/Caregiver Goals pt wants to be able to stand, sit, walk without pain Current Functional Impairments (Reported) Functional Limitations- ADL's pain with dressing Functional Limitations- Mobility/Gait stand: 5 minutes ambulation w/ walker: 1 hour ea day with prn seated breaks intermittently sit: a few minutes transfers IND PT-OP-C Subjective Start: 06/15/24 12:55 Freq: Status: Active Protocol: Document 07/20/24 13:47 NM (Rec: 07/20/24 14:32 NM [id number]) OP-PT Subjective Patient Comments Patient Comments Pt reports that her back is doing better overall, but still bothers her. She reports that she felt good after last sessions PT-OP-E Functional Tests Start: 06/15/24 12:55 Freq: Status: Active Protocol: Document 06/26/24 14:43 SW (Rec: 06/26/24 15:53 SW [id number]) Functional Tests 2 Minute Walk Test Distance 311' Device Used pt walker Comments feet scuffing, right lateral lean, denies pain PT-OP-F Manual Assessment Start: 06/15/24 12:55 Freq: Status: Active Protocol: Document 06/15/24 12:59 NM (Rec: 06/15/24 14:52 NM [id number]) Manual Assessments Soft Tissue Assessment Soft Tissue Mobility Assessment Restrictions of B hamstrings, hip flexors, L paraspinals and QL Joint Mobility Assessment Joint Mobility Assessment Hypomobility of thoracolumbar spine PT-OP-G Mobility & Gait Start: 06/15/24 12:55 Freq: Status: Active Protocol: Document 06/15/24 12:59 NM (Rec: 06/15/24 14:52 NM [id number]) OP Mobility Evaluation Bed Mobility Supine to and from Sit min A at trunk Transfers Sit to Stand with B hand assist to stand from 20 plinth, uses BLE to stabilize OP Gait Assessment Gait Gait Assistance Required: Standby Assistance Distance (Feet) 150 Assistive Devices Assistive Device Gait Belt Gait Deviations General Gait Pattern Antalgic,Decreased Feet Clearance,Flexed Trunk,Lateral Trunk Lean Factors Limiting Gait Function Factors Limiting Gait Function Decreased Activity Tolerance, Decreased Sensation,Decreased Strength,Limited Range of Motion,Pain,Poor Balance Comments Gait Comments Utilizes 3WW- decreased foot clearance, demos strong R trunk lean and flexed trunk PT-OP-H Neuro Start: 06/15/24 12:55 Freq: Status: Active Protocol: Document 06/15/24 12:59 NM (Rec: 06/15/24 14:52 NM [id number]) Coordination Evaluation Upper Extremity Tests Left Finger to Nose Test Moderate Impairment Alternate Nose to Finger Test Moderate Impairment Pronation/Supination Test Normal Performance Right Finger to Nose Test Moderate Impairment Alternate Nose to Finger Test Moderate Impairment Pronation/Supination Test Normal Performance Lower Extremity Tests Left Heel on Tian Test Moderate Impairment Right Heel on Tian Test Moderate Impairment PT-OP-J Posture/Palpation/Skin Start: 06/15/24 12:55 Freq: Status: Active Protocol: Document 06/15/24 12:59 NM (Rec: 06/15/24 14:52 NM [id number]) Posture Evaluation Position Standing Head/C-Spine Posture Forward Head L-Spine Posture Increased Lordosis,Fixed Scoliosis on (L),Flexed, Shifted Right Shoulder Posture (L) Rounded,(R) Rounded Scapula Posture (L) Protracted,(R) Elevated,(R ) Winged Arm Posture (L) Internally Rotated,(R) Internally Rotated Pelvis Posture (L) Rotated Anterior,(L) Iliac Crest Superior,(R) Iliac Crest Inferior Weight Distribution Weight Shifted Right Hip Posture (L) Externally Rotated,(R) Externally Rotated Knee Posture (L) Genu Valgus,(R) Genu Valgus Comments Posture Comments R rib hump, truncal shift L iliac crest elevated Palpation Assessment Location lumbar spine Palpation Details Tenderness along midline, especially R sided along spinous and transverse processes Tightness along L hip and paraspinals, L hip elevated PT-OP-K Range of Motion Start: 06/15/24 12:55 Freq: Status: Active Protocol: Document 06/15/24 12:59 NM (Rec: 06/15/24 14:52 NM [id number]) Lumbar Spine Range of Motion Lumbar Spine Active Percentage Testing Position Sitting Flexion 50 Extension 0 Rotation Left 0 Rotation Right 0 Lateral Flexion Left 25 Lateral Flexion Right 10 Comments All R sided motions painful Hip Goniometric Range of Motion Hip Right Internal Rotation 18 External Rotation 20 Left Internal Rotation 25 External Rotation 20 PT-OP-L Special Tests Start: 06/15/24 12:55 Freq: Status: Active Protocol: Document 06/15/24 12:59 NM (Rec: 06/15/24 14:52 NM [id number]) Special Tests Lumbar Spine Special Tests Slump Test Results + Comments B PT-OP-M Strength Start: 06/15/24 12:55 Freq: Status: Active Protocol: Document 06/15/24 12:59 NM (Rec: 06/15/24 14:52 NM [id number]) Trunk Strength Trunk Manual Muscle Testing Flexion 3 Fair Extension 3 Fair Rotation Left 3 Fair Rotation Right 3 Fair Lateral Flexion Left 3 Fair Lateral Flexion Right 3 Fair Comments Pain with all resisted motions , especially R sided Hip Strength Hip Manual Muscle Testing Right Flexion (L2) 4- Good- Extension (S1) 4- Good- Abduction 4- Good- Adduction 4- Good- External Rotation 3+ Fair+ Internal Rotation 3+ Fair+ Left Flexion (L2) 3+ Fair+ Extension (S1) 3+ Fair+ Abduction 3+ Fair+ Adduction 3+ Fair+ External Rotation 3+ Fair+ Internal Rotation 3+ Fair+ Knee Strength Knee Manual Muscle Testing Right Flexion (S2) 4- Good- Extension (L3) 4- Good- Left Flexion (S2) 4- Good- Extension (L3) 4- Good- Ankle/Foot Strength Ankle and Foot Manual Muscle Testing Right Dorsiflexion (L4) 3+ Fair+ Plantarflexion (S1) 3+ Fair+ Comments tested in sitting Left Dorsiflexion (L4) 3+ Fair+ Plantarflexion (S1) 3+ Fair+ Comments tested in sitting PT-OP-Q Treatments Start: 06/15/24 12:55 Freq: Status: Active Protocol: Document 07/20/24 13:47 NM (Rec: 07/20/24 14:32 NM [id number]) Gym Equipment Shuttle Recovery Unilateral Squats Resistance 50# Shuttle Recovery Platform Stable Reps/Time 2x10 ea Bilateral Squats Details CGA to assist off Resistance 75# (2 navy) Shuttle Recovery Platform Stable Reps/Time 2x15 Therapeutic Exercises Sitting Exercises hip abduction Sitting Exercise Name isometric Side bilateral Resistance level 1 band Reps/Minutes 60 Standing Exercises side steps Side bilateral Resistance AROM Equipment Used 1-2 hand support (L on ballet bar) Reps/Minutes 2x10 ft ea direction Comments CGA-min A; strong trunk lean R d/t curve Other Exercises 2 MWT Other Exercise Name 1. 301 ft (SOS), 2. 354 ft ( EOS) Equipment Used triangle walker Neuro Re-Education Treatment Balance Activities step ups Details min A, 1 hand support Surface unstable Reps/Duration 10 ea Comments catches RLE, demos R trunk lean and R side weaker than L hurdles Details fwd Surface stable Equipment 1 hand assist on //bar; CGA- Tiffanie Reps/Duration 6 hurdles x 2 sets ea Comments 1. 2 feet between ea hurdles 2. reciprocal, 1 foot between ea wayne R foot advancement most challenging; catches hurdles. Better speed and balance w/ reciprocal gait. min A to mod A to prevent fall step up taps Details CGa to minimal assist initiates with UE above bar then requires use of bar Equipment 2 inch foam Reps/Duration X10 retro stepping Details CGA 1 hand on bar Reps/Duration 2x 10 ft PT-OP-T Assessment and Plan Start: 06/15/24 12:55 Freq: Status: Active Protocol: Document 07/20/24 13:47 NM (Rec: 07/20/24 14:32 NM [id number]) Physical Therapy Assessment Goals Three Impairment impaired standing and ambulation tolerance Longterm Goal (LTG) Pt will improve 2 MWT distance by at least 100 ft in order to demonstrate improved ambulation distance, gait speed, and BLE strength for transfers/gait. 07/11/24: 326 ft with triangle walker/3WW (initial 311 ft) 07/20/24: 302 ft 2 MWT LTG Duration 8 weeks Two Impairment decreased sitting tolerance Short Term Goal (STG) Pt will be educated on sitting ergonomics in order to promote midline alignment during sitting 07/11/24: issued HO with picture for midline alignment, educate at evaluation and during sessions with PT about postural alignment STG Duration 4 weeks Longterm Goal (LTG) Pt will report that she is able to sit >10 minutes without increase in low back pain in order to demonstrate improved symptom management and ADL tolerance 07/11/24: pt reports that she can sit for at least 20 minutes before she has an increase in low back pain or has to change positions due to pain LTG Duration 8 weeks MET One Impairment not performing HEP or any daily exercises for condition Medical Records Assistant Goal (LTG) Pt will report compliance with HEP at least 2-3x/wk in order to maximize progress with PT and to facilitate transition to maintenance program 07/11/24: reports has not been doing exercises except occasionally; has been ambulating, doing more upright activity 07/20/24: pt reports compliance with HEP 3x/wk LTG Duration 8 weeks MET Assessment Summary Assessment Pt tolerated session well. Demos improved execution with lateral stepping, more upright trunk posture. Initiated hurdles to address foot clearance. Demos strong R trunk lean and R side harder to advance especially over hurdles. CGa to min A to stabilize for all balance activities and several instances with PT mod assist to stabilize to prevent fall due to LOB. Ambulated 301 ft and 354 ft in 2 minutes during session; cueing for midline trunk position during gait. No increase in back pain with activity or ambulation. Able to progress number of reps on B and unilateral squats on leg press. Pt would continue to benefit from skilled PT for progressive strengthening in order to improve activity tolerance and transfers. Physical Therapy Plan Frequency and Duration Frequency of Treatment 1-2x/wk Duration of treatment (weeks) 8 Plan of Care Start Date 06/15/24 Plan of Care End Date 08/10/24 Therapeutic Interventions Therapeutic Interventions Balance Training,Gait Training ,Home Exercise Program,Joint Mobilizations,Manual Therapy, Neuromuscular Re-education, Orthotic/Prosthetic Management ,Patient/Caregiver Education, Self-Care/Home Management, Sensory Integration,Soft Tissue Mobilization,Taping, Therapeutic Activities, Therapeutic Exercises Modalities Cold Pack/Ice Massage,Hot Packs Other Therapeutic Interventions No lumbar mobilizations Next Visit Focus/Plan Next Note Type Treatment Note Next Visit Plan 2 MWt ea session for endurance . Cont with leg press U and B (inc resistance), trial step ups and cont hurdles and STS transfers. Work on balance and endurance. standing exercises with respect to R shoulder pain. cont with strengthening BLE and core, STS and initial standing balance. Core w/op UE assist STS training from elevated height with mirror, seated and gentle standing BLE strengthening. Body mechanics and ergonomics training
--- NOTE | 2024-07-24 17:18 | PT.OTN ---
Current Diagnoses Chronic pain syndrome (07/24/24) Spondylosis without myelopathy or radiculopathy, lumbar region (07/24/24) Radiculopathy, lumbar region (07/24/24) Other lack of coordination (07/24/24) Weakness (07/24/24) Arthrodesis status (07/24/24) Physical Therapy Treatment Note PT-OP-A Visit Information Start: 06/15/24 12:55 Freq: Status: Active Protocol: Document 07/24/24 14:43 SW (Rec: 07/24/24 15:20 SW [id number]) Out-Patient Physical Therapy Visit Information Visit Information Visit Type Treatment Note Visit Note 12 visits approved. Caregiver Summer ( 8hrs) Visit Start Time 14:33 Visit Stop Time 15:13 Visit Number 05/17 Number of CERTIFIED APPLIANCE SERVICE TECHNICIAN Visits 1 PT-OP-B Current Condition Start: 06/15/24 12:55 Freq: Status: Active Protocol: Document 06/15/24 12:59 NM (Rec: 06/15/24 14:52 NM [id number]) Current Condition History of Current Condition Onset Date chronic, ongoing Current Complaints pain History of Current Condition Pt presents to PT with chronic back pain, an ongoing problem for which she has had previous PT. She had a stroke on 05/09. She has memory, speech deficits, vision - R sided. She had 4 sessions of HHPT. She is having surgery on her shoulder- TBD, must wait due to stroke; planning to have a TSA (reports weak and painful) . She presents with a three wheel walker, 5 years of use. She has scoliosis. 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 She reports that she cannot stand without pain, sit without pain , reports increased pain with all motions. Worse with R sided. She has a hx of falls but no recent falls in several years. She reports that her last spine surgery was 5 years ago. She has not had an injection since October. She has arachnoiditis. Pt reports numbness/tingling in BLE to feet about 5 min- up to 1 hour , usually getting out of the car; R>L (calf). Presents with caregiver, Summer- 8 hrs/5x/ wk Prior Treatments and Tests Lumbar spine MRI, 10/2023: Stable MRI of lumbar spine. 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 Mid lumbar spine instrumentation and decompression. Lower lumbar spine interbody fusion. Treatment Goals Patient/Caregiver Goals pt wants to be able to stand, sit, walk without pain Current Functional Impairments (Reported) Functional Limitations- ADL's pain with dressing Functional Limitations- Mobility/Gait stand: 5 minutes ambulation w/ walker: 1 hour ea day with prn seated breaks intermittently sit: a few minutes transfers IND PT-OP-C Subjective Start: 06/15/24 12:55 Freq: Status: Active Protocol: Document 07/24/24 14:43 SW (Rec: 07/24/24 15:20 SW [id number]) OP-PT Subjective Patient Comments Patient Comments Pt reports doing alright, pain level has been ok, pt has felt better but also has felt much worse. PT-OP-E Functional Tests Start: 06/15/24 12:55 Freq: Status: Active Protocol: Document 06/26/24 14:43 SW (Rec: 06/26/24 15:53 SW [id number]) Functional Tests 2 Minute Walk Test Distance 311' Device Used pt walker Comments feet scuffing, right lateral lean, denies pain PT-OP-F Manual Assessment Start: 06/15/24 12:55 Freq: Status: Active Protocol: Document 06/15/24 12:59 NM (Rec: 06/15/24 14:52 NM [id number]) Manual Assessments Soft Tissue Assessment Soft Tissue Mobility Assessment Restrictions of B hamstrings, hip flexors, L paraspinals and QL Joint Mobility Assessment Joint Mobility Assessment Hypomobility of thoracolumbar spine PT-OP-G Mobility & Gait Start: 06/15/24 12:55 Freq: Status: Active Protocol: Document 06/15/24 12:59 NM (Rec: 06/15/24 14:52 NM [id number]) OP Mobility Evaluation Bed Mobility Supine to and from Sit min A at trunk Transfers Sit to Stand with B hand assist to stand from 20 plinth, uses BLE to stabilize OP Gait Assessment Gait Gait Assistance Required: Standby Assistance Distance (Feet) 150 Assistive Devices Assistive Device Gait Belt Gait Deviations General Gait Pattern Antalgic,Decreased Feet Clearance,Flexed Trunk,Lateral Trunk Lean Factors Limiting Gait Function Factors Limiting Gait Function Decreased Activity Tolerance, Decreased Sensation,Decreased Strength,Limited Range of Motion,Pain,Poor Balance Comments Gait Comments Utilizes 3WW- decreased foot clearance, demos strong R trunk lean and flexed trunk PT-OP-H Neuro Start: 06/15/24 12:55 Freq: Status: Active Protocol: Document 06/15/24 12:59 NM (Rec: 06/15/24 14:52 NM [id number]) Coordination Evaluation Upper Extremity Tests Left Finger to Nose Test Moderate Impairment Alternate Nose to Finger Test Moderate Impairment Pronation/Supination Test Normal Performance Right Finger to Nose Test Moderate Impairment Alternate Nose to Finger Test Moderate Impairment Pronation/Supination Test Normal Performance Lower Extremity Tests Left Heel on Tian Test Moderate Impairment Right Heel on Tian Test Moderate Impairment PT-OP-J Posture/Palpation/Skin Start: 06/15/24 12:55 Freq: Status: Active Protocol: Document 06/15/24 12:59 NM (Rec: 06/15/24 14:52 NM [id number]) Posture Evaluation Position Standing Head/C-Spine Posture Forward Head L-Spine Posture Increased Lordosis,Fixed Scoliosis on (L),Flexed, Shifted Right Shoulder Posture (L) Rounded,(R) Rounded Scapula Posture (L) Protracted,(R) Elevated,(R ) Winged Arm Posture (L) Internally Rotated,(R) Internally Rotated Pelvis Posture (L) Rotated Anterior,(L) Iliac Crest Superior,(R) Iliac Crest Inferior Weight Distribution Weight Shifted Right Hip Posture (L) Externally Rotated,(R) Externally Rotated Knee Posture (L) Genu Valgus,(R) Genu Valgus Comments Posture Comments R rib hump, truncal shift L iliac crest elevated Palpation Assessment Location lumbar spine Palpation Details Tenderness along midline, especially R sided along spinous and transverse processes Tightness along L hip and paraspinals, L hip elevated PT-OP-K Range of Motion Start: 06/15/24 12:55 Freq: Status: Active Protocol: Document 06/15/24 12:59 NM (Rec: 06/15/24 14:52 NM [id number]) Lumbar Spine Range of Motion Lumbar Spine Active Percentage Testing Position Sitting Flexion 50 Extension 0 Rotation Left 0 Rotation Right 0 Lateral Flexion Left 25 Lateral Flexion Right 10 Comments All R sided motions painful Hip Goniometric Range of Motion Hip Right Internal Rotation 18 External Rotation 20 Left Internal Rotation 25 External Rotation 20 PT-OP-L Special Tests Start: 06/15/24 12:55 Freq: Status: Active Protocol: Document 06/15/24 12:59 NM (Rec: 06/15/24 14:52 NM [id number]) Special Tests Lumbar Spine Special Tests Slump Test Results + Comments B PT-OP-M Strength Start: 06/15/24 12:55 Freq: Status: Active Protocol: Document 06/15/24 12:59 NM (Rec: 06/15/24 14:52 NM [id number]) Trunk Strength Trunk Manual Muscle Testing Flexion 3 Fair Extension 3 Fair Rotation Left 3 Fair Rotation Right 3 Fair Lateral Flexion Left 3 Fair Lateral Flexion Right 3 Fair Comments Pain with all resisted motions , especially R sided Hip Strength Hip Manual Muscle Testing Right Flexion (L2) 4- Good- Extension (S1) 4- Good- Abduction 4- Good- Adduction 4- Good- External Rotation 3+ Fair+ Internal Rotation 3+ Fair+ Left Flexion (L2) 3+ Fair+ Extension (S1) 3+ Fair+ Abduction 3+ Fair+ Adduction 3+ Fair+ External Rotation 3+ Fair+ Internal Rotation 3+ Fair+ Knee Strength Knee Manual Muscle Testing Right Flexion (S2) 4- Good- Extension (L3) 4- Good- Left Flexion (S2) 4- Good- Extension (L3) 4- Good- Ankle/Foot Strength Ankle and Foot Manual Muscle Testing Right Dorsiflexion (L4) 3+ Fair+ Plantarflexion (S1) 3+ Fair+ Comments tested in sitting Left Dorsiflexion (L4) 3+ Fair+ Plantarflexion (S1) 3+ Fair+ Comments tested in sitting PT-OP-Q Treatments Start: 06/15/24 12:55 Freq: Status: Active Protocol: Document 07/24/24 14:43 SW (Rec: 07/24/24 15:20 SW [id number]) Gym Equipment Shuttle Recovery Unilateral Squats Resistance 50# Shuttle Recovery Platform Stable Reps/Time 2x10 ea Bilateral Squats Details CGA to assist off Resistance 75# (2 navy) pt reports still challenging, legs feel tired today Shuttle Recovery Platform Stable Reps/Time 2x15 Therapeutic Exercises Sitting Exercises hip abduction Sitting Exercise Name 1.isometric 2. clams Side bilateral Resistance level 1 band Reps/Minutes 60, x15 bilateral sit to stand Side bilateral Equipment Used LUE assist, Close SBA Comments pt education for STS transfer w/triangle walker Standing Exercises side steps Side bilateral Resistance AROM Equipment Used 1-2 hand support (L on ballet bar) Reps/Minutes 2x10 ft ea direction Comments CGA-min A; strong trunk lean R d/t curve Other Exercises 2 MWT Other Exercise Name 1. 332 ft (SOS), 2. ft (EOS) Equipment Used triangle walker PT-OP-T Assessment and Plan Start: 06/15/24 12:55 Freq: Status: Active Protocol: Document 07/24/24 14:43 SW (Rec: 07/24/24 15:20 SW [id number]) Physical Therapy Assessment Goals Three Impairment impaired standing and ambulation tolerance Group Home Goal (LTG) Pt will improve 2 MWT distance by at least 100 ft in order to demonstrate improved ambulation distance, gait speed, and BLE strength for transfers/gait. 07/11/24: 326 ft with triangle walker/3WW (initial 311 ft) 07/20/24: 302 ft 2 MWT 07/24/24: 332 ft 2MWT (with 3WW) SOS, 347 ft MWT EOS (with 3WW) LTG Duration 8 weeks Two Impairment decreased sitting tolerance Short Term Goal (STG) Pt will be educated on sitting ergonomics in order to promote midline alignment during sitting 07/11/24: issued HO with picture for midline alignment, educate at evaluation and during sessions with PT about postural alignment STG Duration 4 weeks Shipping And Receiving Assistant Goal (LTG) Pt will report that she is able to sit >10 minutes without increase in low back pain in order to demonstrate improved symptom management and ADL tolerance 07/11/24: pt reports that she can sit for at least 20 minutes before she has an increase in low back pain or has to change positions due to pain LTG Duration 8 weeks MET One Impairment not performing HEP or any daily exercises for condition Shipping And Receiving Assistant Goal (LTG) Pt will report compliance with HEP at least 2-3x/wk in order to maximize progress with PT and to facilitate transition to maintenance program 07/11/24: reports has not been doing exercises except occasionally; has been ambulating, doing more upright activity 07/20/24: pt reports compliance with HEP 3x/wk LTG Duration 8 weeks MET Assessment Summary Assessment Continued exercises for increased strength and endurance this session. Pt increased ambulation distance this session with 2MWT both at SOS and EOS. Initiated elevated STS with mirror feedback this session, pt emotional to seeing self in mirror with lateral lean. Pt education on brake use with walker and hand placement during STS transfer with 3WW, for safety, LUE on chair, RUE on walker to avoid pulling walker back, pt had good carryover throughout session today. Plan to progress strength and endurance next session as able. Physical Therapy Plan Frequency and Duration Frequency of Treatment 1-2x/wk Duration of treatment (weeks) 8 Plan of Care Start Date 06/15/24 Plan of Care End Date 08/10/24 Therapeutic Interventions Therapeutic Interventions Balance Training,Gait Training ,Home Exercise Program,Joint Mobilizations,Manual Therapy, Neuromuscular Re-education, Orthotic/Prosthetic Management ,Patient/Caregiver Education, Self-Care/Home Management, Sensory Integration,Soft Tissue Mobilization,Taping, Therapeutic Activities, Therapeutic Exercises Modalities Cold Pack/Ice Massage,Hot Packs Other Therapeutic Interventions No lumbar mobilizations Next Visit Focus/Plan Next Note Type Treatment Note Next Visit Plan 2 MWt ea session for endurance . Cont with leg press U and B (inc resistance), trial step ups and cont hurdles and STS transfers. Work on balance and endurance. standing exercises with respect to R shoulder pain. cont with strengthening BLE and core, STS and initial standing balance. Core w/op UE assist STS training from elevated height with mirror, seated and gentle standing BLE strengthening. Body mechanics and ergonomics training
--- NOTE | 2024-07-31 17:51 | PT.OTN ---
Current Diagnoses Chronic pain syndrome (07/31/24) Spondylosis without myelopathy or radiculopathy, lumbar region (07/31/24) Radiculopathy, lumbar region (07/31/24) Other lack of coordination (07/31/24) Weakness (07/31/24) Arthrodesis status (07/31/24) Physical Therapy Treatment Note PT-OP-A Visit Information Start: 06/15/24 12:55 Freq: Status: Active Protocol: Document 07/31/24 13:53 SW (Rec: 07/31/24 17:43 SW [id number]) Out-Patient Physical Therapy Visit Information Visit Information Visit Type Treatment Note Visit Note 12 visits approved. Caregiver Summer ( 8hrs) Visit Start Time 13:49 Visit Stop Time 14:39 Visit Number 06/16 Number of MANAGER TRUCK Visits 2 Precautions Precautions PMH: hx of acute stroke (may 2024), memory and aphasia, R visual deficits, R shoulder pain PT-OP-B Current Condition Start: 06/15/24 12:55 Freq: Status: Active Protocol: Document 06/15/24 12:59 NM (Rec: 06/15/24 14:52 NM [id number]) Current Condition History of Current Condition Onset Date chronic, ongoing Current Complaints pain History of Current Condition Pt presents to PT with chronic back pain, an ongoing problem for which she has had previous PT. She had a stroke on 05/09. She has memory, speech deficits, vision - R sided. She had 4 sessions of HHPT. She is having surgery on her shoulder- TBD, must wait due to stroke; planning to have a TSA (reports weak and painful) . She presents with a three wheel walker, 5 years of use. She has scoliosis. 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 She reports that she cannot stand without pain, sit without pain , reports increased pain with all motions. Worse with R sided. She has a hx of falls but no recent falls in several years. She reports that her last spine surgery was 5 years ago. She has not had an injection since October. She has arachnoiditis. Pt reports numbness/tingling in BLE to feet about 5 min- up to 1 hour , usually getting out of the car; R>L (calf). Presents with caregiver, Summer- 8 hrs/5x/ wk Prior Treatments and Tests Lumbar spine MRI, 10/2023: Stable MRI of lumbar spine. 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 Mid lumbar spine instrumentation and decompression. Lower lumbar spine interbody fusion. Treatment Goals Patient/Caregiver Goals pt wants to be able to stand, sit, walk without pain Current Functional Impairments (Reported) Functional Limitations- ADL's pain with dressing Functional Limitations- Mobility/Gait stand: 5 minutes ambulation w/ walker: 1 hour ea day with prn seated breaks intermittently sit: a few minutes transfers IND PT-OP-C Subjective Start: 06/15/24 12:55 Freq: Status: Active Protocol: Document 07/31/24 13:53 SW (Rec: 07/31/24 14:34 SW [id number]) OP-PT Subjective Patient Comments Patient Comments Pt reports tired, but doing ok . PT-OP-E Functional Tests Start: 06/15/24 12:55 Freq: Status: Active Protocol: Document 06/26/24 14:43 SW (Rec: 06/26/24 15:53 SW [id number]) Functional Tests 2 Minute Walk Test Distance 311' Device Used pt walker Comments feet scuffing, right lateral lean, denies pain PT-OP-F Manual Assessment Start: 06/15/24 12:55 Freq: Status: Active Protocol: Document 06/15/24 12:59 NM (Rec: 06/15/24 14:52 NM [id number]) Manual Assessments Soft Tissue Assessment Soft Tissue Mobility Assessment Restrictions of B hamstrings, hip flexors, L paraspinals and QL Joint Mobility Assessment Joint Mobility Assessment Hypomobility of thoracolumbar spine PT-OP-G Mobility & Gait Start: 06/15/24 12:55 Freq: Status: Active Protocol: Document 06/15/24 12:59 NM (Rec: 06/15/24 14:52 NM [id number]) OP Mobility Evaluation Bed Mobility Supine to and from Sit min A at trunk Transfers Sit to Stand with B hand assist to stand from 20 plinth, uses BLE to stabilize OP Gait Assessment Gait Gait Assistance Required: Standby Assistance Distance (Feet) 150 Assistive Devices Assistive Device Gait Belt Gait Deviations General Gait Pattern Antalgic,Decreased Feet Clearance,Flexed Trunk,Lateral Trunk Lean Factors Limiting Gait Function Factors Limiting Gait Function Decreased Activity Tolerance, Decreased Sensation,Decreased Strength,Limited Range of Motion,Pain,Poor Balance Comments Gait Comments Utilizes 3WW- decreased foot clearance, demos strong R trunk lean and flexed trunk PT-OP-H Neuro Start: 06/15/24 12:55 Freq: Status: Active Protocol: Document 06/15/24 12:59 NM (Rec: 06/15/24 14:52 NM [id number]) Coordination Evaluation Upper Extremity Tests Left Finger to Nose Test Moderate Impairment Alternate Nose to Finger Test Moderate Impairment Pronation/Supination Test Normal Performance Right Finger to Nose Test Moderate Impairment Alternate Nose to Finger Test Moderate Impairment Pronation/Supination Test Normal Performance Lower Extremity Tests Left Heel on Tian Test Moderate Impairment Right Heel on Tian Test Moderate Impairment PT-OP-J Posture/Palpation/Skin Start: 06/15/24 12:55 Freq: Status: Active Protocol: Document 06/15/24 12:59 NM (Rec: 06/15/24 14:52 NM [id number]) Posture Evaluation Position Standing Head/C-Spine Posture Forward Head L-Spine Posture Increased Lordosis,Fixed Scoliosis on (L),Flexed, Shifted Right Shoulder Posture (L) Rounded,(R) Rounded Scapula Posture (L) Protracted,(R) Elevated,(R ) Winged Arm Posture (L) Internally Rotated,(R) Internally Rotated Pelvis Posture (L) Rotated Anterior,(L) Iliac Crest Superior,(R) Iliac Crest Inferior Weight Distribution Weight Shifted Right Hip Posture (L) Externally Rotated,(R) Externally Rotated Knee Posture (L) Genu Valgus,(R) Genu Valgus Comments Posture Comments R rib hump, truncal shift L iliac crest elevated Palpation Assessment Location lumbar spine Palpation Details Tenderness along midline, especially R sided along spinous and transverse processes Tightness along L hip and paraspinals, L hip elevated PT-OP-K Range of Motion Start: 06/15/24 12:55 Freq: Status: Active Protocol: Document 06/15/24 12:59 NM (Rec: 06/15/24 14:52 NM [id number]) Lumbar Spine Range of Motion Lumbar Spine Active Percentage Testing Position Sitting Flexion 50 Extension 0 Rotation Left 0 Rotation Right 0 Lateral Flexion Left 25 Lateral Flexion Right 10 Comments All R sided motions painful Hip Goniometric Range of Motion Hip Right Internal Rotation 18 External Rotation 20 Left Internal Rotation 25 External Rotation 20 PT-OP-L Special Tests Start: 06/15/24 12:55 Freq: Status: Active Protocol: Document 06/15/24 12:59 NM (Rec: 06/15/24 14:52 NM [id number]) Special Tests Lumbar Spine Special Tests Slump Test Results + Comments B PT-OP-M Strength Start: 06/15/24 12:55 Freq: Status: Active Protocol: Document 06/15/24 12:59 NM (Rec: 06/15/24 14:52 NM [id number]) Trunk Strength Trunk Manual Muscle Testing Flexion 3 Fair Extension 3 Fair Rotation Left 3 Fair Rotation Right 3 Fair Lateral Flexion Left 3 Fair Lateral Flexion Right 3 Fair Comments Pain with all resisted motions , especially R sided Hip Strength Hip Manual Muscle Testing Right Flexion (L2) 4- Good- Extension (S1) 4- Good- Abduction 4- Good- Adduction 4- Good- External Rotation 3+ Fair+ Internal Rotation 3+ Fair+ Left Flexion (L2) 3+ Fair+ Extension (S1) 3+ Fair+ Abduction 3+ Fair+ Adduction 3+ Fair+ External Rotation 3+ Fair+ Internal Rotation 3+ Fair+ Knee Strength Knee Manual Muscle Testing Right Flexion (S2) 4- Good- Extension (L3) 4- Good- Left Flexion (S2) 4- Good- Extension (L3) 4- Good- Ankle/Foot Strength Ankle and Foot Manual Muscle Testing Right Dorsiflexion (L4) 3+ Fair+ Plantarflexion (S1) 3+ Fair+ Comments tested in sitting Left Dorsiflexion (L4) 3+ Fair+ Plantarflexion (S1) 3+ Fair+ Comments tested in sitting PT-OP-Q Treatments Start: 06/15/24 12:55 Freq: Status: Active Protocol: Document 07/31/24 13:53 SW (Rec: 07/31/24 14:34 SW [id number]) Gym Equipment Shuttle Recovery Unilateral Squats Resistance 50# (2 navy Shuttle Recovery Platform Stable Reps/Time 2x15 ea Bilateral Squats Details CGA to assist off Resistance 75# (3 navy) Shuttle Recovery Platform Stable Reps/Time 2x15 Therapeutic Exercises Sitting Exercises hip abduction Sitting Exercise Name 1.isometric 2. clams Side bilateral Resistance level 1 band Reps/Minutes 60, x15 bilateral Standing Exercises side steps Side bilateral Resistance Lvl 1 Band Equipment Used 1-2 hand support (L on ballet bar) Reps/Minutes 2x10 ft ea direction Comments CGA-min A; strong trunk lean R d/t curve Other Exercises 2 MWT Other Exercise Name 1.293 ft (SOS) 2. 362 ft (EOS) Equipment Used Mccausland walker Neuro Re-Education Treatment Balance Activities step ups Details min A, 1 hand support Surface unstable Reps/Duration 10 ea Comments catches RLE, demos R trunk lean and R side weaker than L hurdles Details fwd Surface stable Equipment 1 hand assist on //bar; CGA- Tiffanie Reps/Duration 6 hurdles x 2 sets ea Comments 1. 2 feet between ea hurdles 2. reciprocal, 1 foot between ea wayne R foot advancement most challenging; catches hurdles. Better speed and balance w/ reciprocal gait. min A to mod A to prevent fall step up taps Details Close SBA, R side Equipment 2 inch foam Reps/Duration X10 Comments x1 UE assist PT-OP-T Assessment and Plan Start: 06/15/24 12:55 Freq: Status: Active Protocol: Document 07/31/24 13:53 SW (Rec: 07/31/24 14:34 SW [id number]) Physical Therapy Assessment Goals Three Impairment impaired standing and ambulation tolerance Mcc Goal (LTG) Pt will improve 2 MWT distance by at least 100 ft in order to demonstrate improved ambulation distance, gait speed, and BLE strength for transfers/gait. 07/11/24: 326 ft with triangle walker/3WW (initial 311 ft) 07/20/24: 302 ft 2 MWT 07/24/24: 332 ft 2MWT (with 3WW) SOS, 347 ft MWT EOS (with 3WW) LTG Duration 8 weeks Two Impairment decreased sitting tolerance Short Term Goal (STG) Pt will be educated on sitting ergonomics in order to promote midline alignment during sitting 07/11/24: issued HO with picture for midline alignment, educate at evaluation and during sessions with PT about postural alignment STG Duration 4 weeks Media Relations Specialist Goal (LTG) Pt will report that she is able to sit >10 minutes without increase in low back pain in order to demonstrate improved symptom management and ADL tolerance 07/11/24: pt reports that she can sit for at least 20 minutes before she has an increase in low back pain or has to change positions due to pain LTG Duration 8 weeks MET One Impairment not performing HEP or any daily exercises for condition Media Relations Specialist Goal (LTG) Pt will report compliance with HEP at least 2-3x/wk in order to maximize progress with PT and to facilitate transition to maintenance program 07/11/24: reports has not been doing exercises except occasionally; has been ambulating, doing more upright activity 07/20/24: pt reports compliance with HEP 3x/wk LTG Duration 8 weeks MET Assessment Summary Assessment Pt increased ambulation distance during 2MWT to 362 ft at EOS. Progressed pt with stregth this session, increased resistance on leg press and initiated resistance above knees with side stepping. Pt tolerated session well, with no increase in pain and improved ambulation distance at end of session, pt was breathing heavier post 2MWT as EOS, though could still comfortably hold a coversation (talk test). Physical Therapy Plan Frequency and Duration Frequency of Treatment 1-2x/wk Duration of treatment (weeks) 8 Plan of Care Start Date 06/15/24 Plan of Care End Date 08/10/24 Therapeutic Interventions Therapeutic Interventions Balance Training,Gait Training ,Home Exercise Program,Joint Mobilizations,Manual Therapy, Neuromuscular Re-education, Orthotic/Prosthetic Management ,Patient/Caregiver Education, Self-Care/Home Management, Sensory Integration,Soft Tissue Mobilization,Taping, Therapeutic Activities, Therapeutic Exercises Modalities Cold Pack/Ice Massage,Hot Packs Other Therapeutic Interventions No lumbar mobilizations Next Visit Focus/Plan Next Note Type Treatment Note Next Visit Plan 2 MWt ea session for endurance . Cont with leg press U and B (inc resistance), trial step ups and cont hurdles and STS transfers. Work on balance and endurance. standing exercises with respect to R shoulder pain. cont with strengthening BLE and core, STS and initial standing balance. Core w/op UE assist STS training from elevated height with mirror, seated and gentle standing BLE strengthening. Body mechanics and ergonomics training
--- NOTE | 2024-08-07 12:54 | PT.OTN ---
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 Caregiver Summer ( 8hrs) 135/65 mmHg, 58 bpm L arm SOS Visit Start Time 11:34 Visit Stop Time 12:14 Visit Number 07/17 Evaluation Information Evaluation Date 06/15/24 Precautions Precautions PMH: hx of acute stroke (may 2024), memory and aphasia, R visual deficits, R shoulder pain PT-OP-B Current Condition Start: 06/15/24 12:55 Freq: Status: Active Protocol: Document 06/15/24 12:59 NM (Rec: 06/15/24 14:52 NM [id number]) Current Condition History of Current Condition Onset Date chronic, ongoing Current Complaints pain History of Current Condition Pt presents to PT with chronic back pain, an ongoing problem for which she has had previous PT. She had a stroke on 05/09. She has memory, speech deficits, vision - R sided. She had 4 sessions of HHPT. She is having surgery on her shoulder- TBD, must wait due to stroke; planning to have a TSA (reports weak and painful) . She presents with a three wheel walker, 5 years of use. She has scoliosis. 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 She reports that she cannot stand without pain, sit without pain , reports increased pain with all motions. Worse with R sided. She has a hx of falls but no recent falls in several years. She reports that her last spine surgery was 5 years ago. She has not had an injection since October. She has arachnoiditis. Pt reports numbness/tingling in BLE to feet about 5 min- up to 1 hour , usually getting out of the car; R>L (calf). Presents with caregiver, Summer- 8 hrs/5x/ wk Prior Treatments and Tests Lumbar spine MRI, 10/2023: Stable MRI of lumbar spine. 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 Mid lumbar spine instrumentation and decompression. Lower lumbar spine interbody fusion. Treatment Goals Patient/Caregiver Goals pt wants to be able to stand, sit, walk without pain Current Functional Impairments (Reported) Functional Limitations- ADL's pain with dressing Functional Limitations- Mobility/Gait stand: 5 minutes ambulation w/ walker: 1 hour ea day with prn seated breaks intermittently sit: a few minutes transfers IND PT-OP-C Subjective Start: 06/15/24 12:55 Freq: Status: Active Protocol: Document 08/07/24 11:32 NM (Rec: 08/07/24 12:16 NM [id number]) OP-PT Subjective Patient Comments Patient Comments Pt reports doing well, reports that back pain is continuing to improve even though pain is present. During middle of session, pt reports that she had a heart attack 3 weeks ago at [facility]. However, after speaking with caregiver, Summer, she states that pt has not had a heart attack but is referring to her stroke in May 2024. PT-OP-E Functional Tests Start: 06/15/24 12:55 Freq: Status: Active Protocol: Document 06/26/24 14:43 SW (Rec: 06/26/24 15:53 SW [id number]) Functional Tests 2 Minute Walk Test Distance 311' Device Used pt walker Comments feet scuffing, right lateral lean, denies pain PT-OP-F Manual Assessment Start: 06/15/24 12:55 Freq: Status: Active Protocol: Document 06/15/24 12:59 NM (Rec: 06/15/24 14:52 NM [id number]) Manual Assessments Soft Tissue Assessment Soft Tissue Mobility Assessment Restrictions of B hamstrings, hip flexors, L paraspinals and QL Joint Mobility Assessment Joint Mobility Assessment Hypomobility of thoracolumbar spine PT-OP-G Mobility & Gait Start: 06/15/24 12:55 Freq: Status: Active Protocol: Document 06/15/24 12:59 NM (Rec: 06/15/24 14:52 NM [id number]) OP Mobility Evaluation Bed Mobility Supine to and from Sit min A at trunk Transfers Sit to Stand with B hand assist to stand from 20 plinth, uses BLE to stabilize OP Gait Assessment Gait Gait Assistance Required: Standby Assistance Distance (Feet) 150 Assistive Devices Assistive Device Gait Belt Gait Deviations General Gait Pattern Antalgic,Decreased Feet Clearance,Flexed Trunk,Lateral Trunk Lean Factors Limiting Gait Function Factors Limiting Gait Function Decreased Activity Tolerance, Decreased Sensation,Decreased Strength,Limited Range of Motion,Pain,Poor Balance Comments Gait Comments Utilizes 3WW- decreased foot clearance, demos strong R trunk lean and flexed trunk PT-OP-H Neuro Start: 06/15/24 12:55 Freq: Status: Active Protocol: Document 06/15/24 12:59 NM (Rec: 06/15/24 14:52 NM [id number]) Coordination Evaluation Upper Extremity Tests Left Finger to Nose Test Moderate Impairment Alternate Nose to Finger Test Moderate Impairment Pronation/Supination Test Normal Performance Right Finger to Nose Test Moderate Impairment Alternate Nose to Finger Test Moderate Impairment Pronation/Supination Test Normal Performance Lower Extremity Tests Left Heel on Tian Test Moderate Impairment Right Heel on Tian Test Moderate Impairment PT-OP-J Posture/Palpation/Skin Start: 06/15/24 12:55 Freq: Status: Active Protocol: Document 06/15/24 12:59 NM (Rec: 06/15/24 14:52 NM [id number]) Posture Evaluation Position Standing Head/C-Spine Posture Forward Head L-Spine Posture Increased Lordosis,Fixed Scoliosis on (L),Flexed, Shifted Right Shoulder Posture (L) Rounded,(R) Rounded Scapula Posture (L) Protracted,(R) Elevated,(R ) Winged Arm Posture (L) Internally Rotated,(R) Internally Rotated Pelvis Posture (L) Rotated Anterior,(L) Iliac Crest Superior,(R) Iliac Crest Inferior Weight Distribution Weight Shifted Right Hip Posture (L) Externally Rotated,(R) Externally Rotated Knee Posture (L) Genu Valgus,(R) Genu Valgus Comments Posture Comments R rib hump, truncal shift L iliac crest elevated Palpation Assessment Location lumbar spine Palpation Details Tenderness along midline, especially R sided along spinous and transverse processes Tightness along L hip and paraspinals, L hip elevated PT-OP-K Range of Motion Start: 06/15/24 12:55 Freq: Status: Active Protocol: Document 06/15/24 12:59 NM (Rec: 06/15/24 14:52 NM [id number]) Lumbar Spine Range of Motion Lumbar Spine Active Percentage Testing Position Sitting Flexion 50 Extension 0 Rotation Left 0 Rotation Right 0 Lateral Flexion Left 25 Lateral Flexion Right 10 Comments All R sided motions painful Hip Goniometric Range of Motion Hip Right Internal Rotation 18 External Rotation 20 Left Internal Rotation 25 External Rotation 20 PT-OP-L Special Tests Start: 06/15/24 12:55 Freq: Status: Active Protocol: Document 06/15/24 12:59 NM (Rec: 06/15/24 14:52 NM [id number]) Special Tests Lumbar Spine Special Tests Slump Test Results + Comments B PT-OP-M Strength Start: 06/15/24 12:55 Freq: Status: Active Protocol: Document 08/07/24 11:32 NM (Rec: 08/07/24 12:16 NM [id number]) Hip Strength Hip Manual Muscle Testing Right Flexion (L2) 4 Good Extension (S1) 4- Good- Abduction 4- Good- Adduction 4- Good- External Rotation 3+ Fair+ Internal Rotation 3+ Fair+ Left Flexion (L2) 3+ Fair+ Extension (S1) 3+ Fair+ Abduction 3+ Fair+ Adduction 3+ Fair+ External Rotation 3+ Fair+ Internal Rotation 3+ Fair+ Knee Strength Knee Manual Muscle Testing Right Flexion (S2) 4- Good- Extension (L3) 4- Good- Left Flexion (S2) 4- Good- Extension (L3) 4- Good- PT-OP-Q Treatments Start: 06/15/24 12:55 Freq: Status: Active Protocol: Document 08/07/24 11:32 NM (Rec: 08/07/24 12:16 NM [id number]) Therapeutic Exercises Sitting Exercises hip flexion Side bilateral Resistance level 2 at thigh Reps/Minutes 20 hip abduction Sitting Exercise Name 1.isometric 2. clams Side bilateral Resistance level 2 band Reps/Minutes 60, 20 bilateral sit to stand Side bilateral Equipment Used LUE assist, Close SBA Reps/Minutes 10 Comments pt education for STS transfer w/triangle walker LAQ Sitting Exercise Name HEP review Side bilateral Resistance level 2 band at ankles Reps/Minutes 20 Comments Verbal cues HS curl Sitting Exercise Name HEP review Side bilateral Resistance lvl 2 band at ankles Reps/Minutes 15 ea Comments Verbal cues QL Stretch Sitting Exercise Name seated QL stretch Side left Resistance AROM Reps/Minutes 1 rep ea side x15 Comments hands on lap to avoid discomfort Hamstring stretch Sitting Exercise Name slight foot prop Side bilateral Reps/Minutes 60 holds ea leg Comments set up assist from PT Other Exercises 2 MWT Other Exercise Name 3WW Reps/Minutes 311 ft Comments SOS PT-OP-T Assessment and Plan Start: 06/15/24 12:55 Freq: Status: Active Protocol: Document 08/07/24 11:32 NM (Rec: 08/07/24 12:16 NM [id number]) Physical Therapy Assessment Goals Three Impairment impaired standing and ambulation tolerance Care Home Goal (LTG) Pt will improve 2 MWT distance by at least 100 ft in order to demonstrate improved ambulation distance, gait speed, and BLE strength for transfers/gait. 07/11/24: 326 ft with triangle walker/3WW (initial 311 ft) 07/20/24: 302 ft 2 MWT 07/24/24: 332 ft 2MWT (with 3WW) SOS, 347 ft MWT EOS (with 3WW) 08/07/24: 311 ft (SOS) 07/31: 362 ft LTG Duration 8 weeks NOT MET; PROGRESSING AND DEMOS IMPROVEMENT Two Impairment decreased sitting tolerance Short Term Goal (STG) Pt will be educated on sitting ergonomics in order to promote midline alignment during sitting 07/11/24: issued HO with picture for midline alignment, educate at evaluation and during sessions with PT about postural alignment STG Duration 4 weeks Care Home Goal (LTG) Pt will report that she is able to sit >10 minutes without increase in low back pain in order to demonstrate improved symptom management and ADL tolerance 07/11/24: pt reports that she can sit for at least 20 minutes before she has an increase in low back pain or has to change positions due to pain LTG Duration 8 weeks MET One Impairment not performing HEP or any daily exercises for condition Care Home Goal (LTG) Pt will report compliance with HEP at least 2-3x/wk in order to maximize progress with PT and to facilitate transition to maintenance program 07/11/24: reports has not been doing exercises except occasionally; has been ambulating, doing more upright activity 07/20/24: pt reports compliance with HEP 3x/wk LTG Duration 8 weeks MET Progress Towards Goals Progress Towards Goals Progressing Toward Goals,Goals Met Assessment Summary Assessment Pt tolerated session well. Continues to demonstrate improvements in ambulation distance, 311 ft today. Pt has not met PT goal to improve 2 MWT distance by 100 ft; however, demos less unsteadiness with gait and more upright/midline alignment vs R trunk lean with gait. Remainder of session to create seated maintenance program for pt to perform with caregiver to maintain strength . Progressed to level 2 resistance band for all seated exercises. RLE continues to be weaker than LLE functionally. Demos improved STS from chair to 3WW. Still needs cues to not push up from chair, but pt able to demo 10 STS from standard chair without LOB or unsteadiness and no UE assist from chair. After discussion with caregiver on phone during session, pt has not had a heart attack within the past 3 weeks but is referencing her stroke from back in May 2024. Physical Therapy Plan Frequency and Duration Frequency of Treatment 1-2x/wk Duration of treatment (weeks) 8 Plan of Care Start Date 06/15/24 Plan of Care End Date 08/10/24 Therapeutic Interventions Therapeutic Interventions Balance Training,Gait Training ,Home Exercise Program,Joint Mobilizations,Manual Therapy, Neuromuscular Re-education, Orthotic/Prosthetic Management ,Patient/Caregiver Education, Self-Care/Home Management, Sensory Integration,Soft Tissue Mobilization,Taping, Therapeutic Activities, Therapeutic Exercises Modalities Cold Pack/Ice Massage,Hot Packs Other Therapeutic Interventions No lumbar mobilizations Discharge Physical Therapy Discharge Comments Pt has met 2/3 PT goals, end of plan of care. Minimal change in meeting ambulation goal. Has only 1 further visit authorized by insurance. Pt would benefit from further skilled PT at this time for continued strengthening. PT and pt discussed discharge from PT to maintenance program . Educated to get new referral and authorization to return to PT. Next Visit Focus/Plan Next Note Type Discharge Summary Next Visit Plan discharge from PT
--- NOTE | 2024-08-07 12:59 | PT.OTN ---
Current Diagnoses Chronic pain syndrome (08/07/24) Spondylosis without myelopathy or radiculopathy, lumbar region (08/07/24) Radiculopathy, lumbar region (08/07/24) Other lack of coordination (08/07/24) Weakness (08/07/24) Arthrodesis status (08/07/24) Physical Therapy Treatment Note PT-OP-A Visit Information Start: 06/15/24 12:55 Freq: Status: Active Protocol: Document 08/07/24 11:32 NM (Rec: 08/07/24 12:16 NM [id number]) Out-Patient Physical Therapy Visit Information Visit Information Visit Type Discharge Summary Visit Note 12 visits approved. Caregiver Summer ( 8hrs) 135/65 mmHg, 58 bpm L arm SOS Visit Start Time 11:34 Visit Stop Time 12:14 Visit Number 07/17 Evaluation Information Evaluation Date 06/15/24 Precautions Precautions PMH: hx of acute stroke (may 2024), memory and aphasia, R visual deficits, R shoulder pain PT-OP-B Current Condition Start: 06/15/24 12:55 Freq: Status: Active Protocol: Document 06/15/24 12:59 NM (Rec: 06/15/24 14:52 NM [id number]) Current Condition History of Current Condition Onset Date chronic, ongoing Current Complaints pain History of Current Condition Pt presents to PT with chronic back pain, an ongoing problem for which she has had previous PT. She had a stroke on 05/09. She has memory, speech deficits, vision - R sided. She had 4 sessions of HHPT. She is having surgery on her shoulder- TBD, must wait due to stroke; planning to have a TSA (reports weak and painful) . She presents with a three wheel walker, 5 years of use. She has scoliosis. 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 She reports that she cannot stand without pain, sit without pain , reports increased pain with all motions. Worse with R sided. She has a hx of falls but no recent falls in several years. She reports that her last spine surgery was 5 years ago. She has not had an injection since October. She has arachnoiditis. Pt reports numbness/tingling in BLE to feet about 5 min- up to 1 hour , usually getting out of the car; R>L (calf). Presents with caregiver, Summer- 8 hrs/5x/ wk Prior Treatments and Tests Lumbar spine MRI, 10/2023: Stable MRI of lumbar spine. 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 Mid lumbar spine instrumentation and decompression. Lower lumbar spine interbody fusion. Treatment Goals Patient/Caregiver Goals pt wants to be able to stand, sit, walk without pain Current Functional Impairments (Reported) Functional Limitations- ADL's pain with dressing Functional Limitations- Mobility/Gait stand: 5 minutes ambulation w/ walker: 1 hour ea day with prn seated breaks intermittently sit: a few minutes transfers IND PT-OP-C Subjective Start: 06/15/24 12:55 Freq: Status: Active Protocol: Document 08/07/24 11:32 NM (Rec: 08/07/24 12:16 NM [id number]) OP-PT Subjective Patient Comments Patient Comments Pt reports doing well, reports that back pain is continuing to improve even though pain is present. During middle of session, pt reports that she had a heart attack [address] [facility]. However, after speaking with caregiver, Summer, she states that pt has not had a heart attack but is referring to her stroke in May 2024. PT-OP-E Functional Tests Start: 06/15/24 12:55 Freq: Status: Active Protocol: Document 06/26/24 14:43 SW (Rec: 06/26/24 15:53 SW [id number]) Functional Tests 2 Minute Walk Test Distance 311' Device Used pt walker Comments feet scuffing, right lateral lean, denies pain PT-OP-F Manual Assessment Start: 06/15/24 12:55 Freq: Status: Active Protocol: Document 06/15/24 12:59 NM (Rec: 06/15/24 14:52 NM [id number]) Manual Assessments Soft Tissue Assessment Soft Tissue Mobility Assessment Restrictions of B hamstrings, hip flexors, L paraspinals and QL Joint Mobility Assessment Joint Mobility Assessment Hypomobility of thoracolumbar spine PT-OP-G Mobility & Gait Start: 06/15/24 12:55 Freq: Status: Active Protocol: Document 06/15/24 12:59 NM (Rec: 06/15/24 14:52 NM [id number]) OP Mobility Evaluation Bed Mobility Supine to and from Sit min A at trunk Transfers Sit to Stand with B hand assist to stand from 20 plinth, uses BLE to stabilize OP Gait Assessment Gait Gait Assistance Required: Standby Assistance Distance (Feet) 150 Assistive Devices Assistive Device Gait Belt Gait Deviations General Gait Pattern Antalgic,Decreased Feet Clearance,Flexed Trunk,Lateral Trunk Lean Factors Limiting Gait Function Factors Limiting Gait Function Decreased Activity Tolerance, Decreased Sensation,Decreased Strength,Limited Range of Motion,Pain,Poor Balance Comments Gait Comments Utilizes 3WW- decreased foot clearance, demos strong R trunk lean and flexed trunk PT-OP-H Neuro Start: 06/15/24 12:55 Freq: Status: Active Protocol: Document 06/15/24 12:59 NM (Rec: 06/15/24 14:52 NM [id number]) Coordination Evaluation Upper Extremity Tests Left Finger to Nose Test Moderate Impairment Alternate Nose to Finger Test Moderate Impairment Pronation/Supination Test Normal Performance Right Finger to Nose Test Moderate Impairment Alternate Nose to Finger Test Moderate Impairment Pronation/Supination Test Normal Performance Lower Extremity Tests Left Heel on Tian Test Moderate Impairment Right Heel on Tian Test Moderate Impairment PT-OP-J Posture/Palpation/Skin Start: 06/15/24 12:55 Freq: Status: Active Protocol: Document 06/15/24 12:59 NM (Rec: 06/15/24 14:52 NM [id number]) Posture Evaluation Position Standing Head/C-Spine Posture Forward Head L-Spine Posture Increased Lordosis,Fixed Scoliosis on (L),Flexed, Shifted Right Shoulder Posture (L) Rounded,(R) Rounded Scapula Posture (L) Protracted,(R) Elevated,(R ) Winged Arm Posture (L) Internally Rotated,(R) Internally Rotated Pelvis Posture (L) Rotated Anterior,(L) Iliac Crest Superior,(R) Iliac Crest Inferior Weight Distribution Weight Shifted Right Hip Posture (L) Externally Rotated,(R) Externally Rotated Knee Posture (L) Genu Valgus,(R) Genu Valgus Comments Posture Comments R rib hump, truncal shift L iliac crest elevated Palpation Assessment Location lumbar spine Palpation Details Tenderness along midline, especially R sided along spinous and transverse processes Tightness along L hip and paraspinals, L hip elevated PT-OP-K Range of Motion Start: 06/15/24 12:55 Freq: Status: Active Protocol: Document 06/15/24 12:59 NM (Rec: 06/15/24 14:52 NM [id number]) Lumbar Spine Range of Motion Lumbar Spine Active Percentage Testing Position Sitting Flexion 50 Extension 0 Rotation Left 0 Rotation Right 0 Lateral Flexion Left 25 Lateral Flexion Right 10 Comments All R sided motions painful Hip Goniometric Range of Motion Hip Right Internal Rotation 18 External Rotation 20 Left Internal Rotation 25 External Rotation 20 PT-OP-L Special Tests Start: 06/15/24 12:55 Freq: Status: Active Protocol: Document 06/15/24 12:59 NM (Rec: 06/15/24 14:52 NM [id number]) Special Tests Lumbar Spine Special Tests Slump Test Results + Comments B PT-OP-M Strength Start: 06/15/24 12:55 Freq: Status: Active Protocol: Document 08/07/24 11:32 NM (Rec: 08/07/24 12:16 NM [id number]) Hip Strength Hip Manual Muscle Testing Right Flexion (L2) 4 Good Extension (S1) 4 Good Abduction 4 Good Adduction 4 Good External Rotation 3+ Fair+ Internal Rotation 3+ Fair+ Left Flexion (L2) 4 Good Extension (S1) 4 Good Abduction 4 Good Adduction 4 Good External Rotation 4 Good Internal Rotation 3+ Fair+ Knee Strength Knee Manual Muscle Testing Right Flexion (S2) 4 Good Extension (L3) 4- Good- Left Flexion (S2) 4 Good Extension (L3) 4- Good- PT-OP-Q Treatments Start: 06/15/24 12:55 Freq: Status: Active Protocol: Document 08/07/24 11:32 NM (Rec: 08/07/24 12:16 NM [id number]) Therapeutic Exercises Sitting Exercises hip flexion Side bilateral Resistance level 2 at thigh Reps/Minutes 20 hip abduction Sitting Exercise Name 1.isometric 2. clams Side bilateral Resistance level 2 band Reps/Minutes 60, 20 bilateral sit to stand Side bilateral Equipment Used LUE assist, Close SBA Reps/Minutes 10 Comments pt education for STS transfer w/triangle walker LAQ Sitting Exercise Name HEP review Side bilateral Resistance level 2 band at ankles Reps/Minutes 20 Comments Verbal cues HS curl Sitting Exercise Name HEP review Side bilateral Resistance lvl 2 band at ankles Reps/Minutes 15 ea Comments Verbal cues QL Stretch Sitting Exercise Name seated QL stretch Side left Resistance AROM Reps/Minutes 1 rep ea side x15 Comments hands on lap to avoid discomfort Hamstring stretch Sitting Exercise Name slight foot prop Side bilateral Reps/Minutes 60 holds ea leg Comments set up assist from PT Other Exercises 2 MWT Other Exercise Name 3WW Reps/Minutes 311 ft Comments SOS PT-OP-T Assessment and Plan Start: 06/15/24 12:55 Freq: Status: Active Protocol: Document 08/07/24 11:32 NM (Rec: 08/07/24 12:16 NM [id number]) Physical Therapy Assessment Goals Three Impairment impaired standing and ambulation tolerance Fpc Goal (LTG) Pt will improve 2 MWT distance by at least 100 ft in order to demonstrate improved ambulation distance, gait speed, and BLE strength for transfers/gait. 07/11/24: 326 ft with triangle walker/3WW (initial 311 ft) 07/20/24: 302 ft 2 MWT 07/24/24: 332 ft 2MWT (with 3WW) SOS, 347 ft MWT EOS (with 3WW) 08/07/24: 311 ft (SOS) 07/31: 362 ft LTG Duration 8 weeks NOT MET; PROGRESSING AND DEMOS IMPROVEMENT Two Impairment decreased sitting tolerance Short Term Goal (STG) Pt will be educated on sitting ergonomics in order to promote midline alignment during sitting 07/11/24: issued HO with picture for midline alignment, educate at evaluation and during sessions with PT about postural alignment STG Duration 4 weeks Fpc Goal (LTG) Pt will report that she is able to sit >10 minutes without increase in low back pain in order to demonstrate improved symptom management and ADL tolerance 07/11/24: pt reports that she can sit for at least 20 minutes before she has an increase in low back pain or has to change positions due to pain LTG Duration 8 weeks MET One Impairment not performing HEP or any daily exercises for condition Fpc Goal (LTG) Pt will report compliance with HEP at least 2-3x/wk in order to maximize progress with PT and to facilitate transition to maintenance program 07/11/24: reports has not been doing exercises except occasionally; has been ambulating, doing more upright activity 07/20/24: pt reports compliance with HEP 3x/wk LTG Duration 8 weeks MET Progress Towards Goals Progress Towards Goals Progressing Toward Goals,Goals Met Assessment Summary Assessment Pt tolerated session well. Continues to demonstrate improvements in ambulation distance, 311 ft today. Pt has not met PT goal to improve 2 MWT distance by 100 ft; however, demos less unsteadiness with gait and more upright/midline alignment vs R trunk lean with gait. Remainder of session to create seated maintenance program for pt to perform with caregiver to maintain strength . Progressed to level 2 resistance band for all seated exercises. RLE continues to be weaker than LLE functionally. Demos improved STS from chair to 3WW. Still needs cues to not push up from chair, but pt able to demo 10 STS from standard chair without LOB or unsteadiness and no UE assist from chair. After discussion with caregiver on phone during session, pt has not had a heart attack within the past 3 weeks but is referencing her stroke from back in May 2024. Physical Therapy Plan Frequency and Duration Frequency of Treatment 1-2x/wk Duration of treatment (weeks) 8 Plan of Care Start Date 06/15/24 Plan of Care End Date 08/10/24 Therapeutic Interventions Therapeutic Interventions Balance Training,Gait Training ,Home Exercise Program,Joint Mobilizations,Manual Therapy, Neuromuscular Re-education, Orthotic/Prosthetic Management ,Patient/Caregiver Education, Self-Care/Home Management, Sensory Integration,Soft Tissue Mobilization,Taping, Therapeutic Activities, Therapeutic Exercises Modalities Cold Pack/Ice Massage,Hot Packs Other Therapeutic Interventions No lumbar mobilizations Discharge Physical Therapy Discharge Comments Pt has met 2/3 PT goals, end of plan of care. Minimal change in meeting ambulation goal. Has only 1 further visit authorized by insurance. Pt would benefit from further skilled PT at this time for continued strengthening. PT and pt discussed discharge from PT to maintenance program . Educated to get new referral and authorization to return to PT. Next Visit Focus/Plan Next Note Type Discharge Summary Next Visit Plan discharge from PT
== END 2024-08-20 13:58 | disposition home or self-care (01) ==
LOC: PHYS 11:30
PROVIDERS: Family Provider Nurse Practitioner; PCP Family Medicine; Referring Provider Nurse Practitioner; Visit Provider Nurse Practitioner
DX: M54.16 Radiculopathy, lumbar region (principal); Z98.1 Arthrodesis status; M47.816 Spondylosis without myelopathy or radiculopathy, lumbar region; G89.4 Chronic pain syndrome; R53.1 Weakness; R27.8 Other lack of coordination
CPT/HCPCS: 97110; 97112; 97162

== ENCOUNTER → 2024-08-20 16:10 | Outpatient (CLI) | payer MEDICARE, MEDICAID, SELFPAY ==
[2024-05-09 17:41] VITALS: BMI 29.8
== END ==
PROVIDERS: Family Provider Nurse Practitioner; PCP Family Medicine; Visit Provider Nurse Practitioner Family
DX: R30.0 Dysuria (principal)
CPT/HCPCS: 87077; 87086

== ENCOUNTER → 2024-09-03 12:20 | Outpatient (CLI) | payer MEDICARE, MEDICAID, SELFPAY ==
[2024-05-09 17:41] VITALS: BMI 29.8
== END ==
PROVIDERS: Family Provider Nurse Practitioner; PCP Family Medicine; Referring Provider Urology; Visit Provider Urology
DX: N32.81 Overactive bladder (principal)
CPT/HCPCS: 87077; 87086; 87186

== ENCOUNTER → 2024-09-17 14:01 | Outpatient (CLI) | payer MEDICARE, MEDICAID, SELFPAY ==
[2024-09-07 13:07] VITALS: BMI 29.8
[2024-09-17 15:04] LABS: Add Manual Diff / Slide Review NO; Basophils Absolute Auto 100 /uL (0-100); Basophils Percent Auto 1.1 % (0-2); Eosinophils Absolute Auto 200 /uL (0-450); Eosinophils Percent Auto 2.8 % (2-4); Hemoglobin 10.7 g/dL (12.0-16.0); Lymphocytes Absolute Auto 1500 /uL (1100-4500); Lymphocytes Percent Auto 26.5 % (25-40); Mean Corpuscular HGB Conc 33.5 % (30-36); Mean Corpuscular Hemoglobin 28.9 PG (26-34); Mean Corpuscular Volume 86.2 fL (80-100); Monocytes Absolute Auto 500 /uL (0-900); Monocytes Percent Auto 8.5 % (3-14); Neutrophils Absolute Auto 3500 /uL (1500-7000); Neutrophils Percent Auto 61.1 % (50-75); Platelet Count 229 X10^3/uL (150-400); Red Blood Cell Count 3.72 X10^6/uL (4.0-5.2); Red Cell Distribution Width 14.3 % (11.6-14.8); White Blood Cell Count 5.7 X10^3/uL (4.5-11.0)
[2024-09-17 15:25] LABS: Albumin 4.4 g/dL (3.5-5.0); Albumin Globulin Ratio 1.6 (1.0-2.8); Alkaline Phosphatase 94 U/L (38-126); BUN Creatinine Ratio 18.2 (6-22); Bilirubin Total 0.5 mg/dL (0.2-1.3); Blood Urea Nitrogen 29 mg/dL (7-17); Calcium 9.7 mg/dL (8.4-10.2); Carbon Dioxide 29 mmol/L (22-32); Chloride 105 mmol/L (98-107); Estimated Glomerular Filt Rate 33 mL/min (>60); Globulin 2.7 g/dL (1.7-4.1); Glucose 93 mg/dL (80-110); HEMOLYSIS < 15 (0-50); Potassium 4.4 mmol/L (3.4-5.1); Sodium 140 mmol/L (137-145); Total Protein 7.1 g/dL (6.3-8.2)
[2024-09-17 15:28] LABS: Alanine Aminotransferase 19 IU/L (<35); Aspartate Aminotransferase 27 IU/L (14-36)
[2024-09-17 16:01] LABS: Ferritin 22 ng/mL (11-264)
== END ==
PROVIDERS: Family Provider Nurse Practitioner; PCP Family Medicine; Referring Provider Urology; Visit Provider Urology
DX: N32.81 Overactive bladder (principal); I48.0 Paroxysmal atrial fibrillation; R47.01 Aphasia; F98.8 Other specified behavioral and emotional disorders with onset usually occurring in childhood and adolescence; F11.20 Opioid dependence, uncomplicated; N18.9 Chronic kidney disease, unspecified; M54.30 Sciatica, unspecified side
CPT/HCPCS: 36415; 80053; 82728; 85025; 87086

== ENCOUNTER 2025-02-07 12:57 | Emergency (ER) | payer MEDICARE, MEDICAID, SELFPAY ==
[2024-09-07 13:07] VITALS: BMI 29.8
[2025-02-07 13:20] VITALS: BP 154/91; PULSE 94; RESP 16; TEMP 37.1; O2SAT 94; BMI 27.1
--- NOTE | 2025-02-07 13:28 | DI.CT.S_ITS ---
PROCEDURE: CT HEAD/BRAIN W CON INDICATIONS: Fall 6/3 on thinners, ongoing neck pain TECHNIQUE: 4.5 mm thick angled axial sections acquired from the foramen magnum to the vertex after the administration of intravenous contrast, with coronal and sagittal reformats. For radiation dose reduction, the following was used: automated exposure control, adjustment of mA and/or kV according to patient size. COMPARISON: [facility], CT, CT HEAD/BRAIN WO CON, 05/09/2024, 11:18. [facility], CT, CT ANGIO HEAD AND NECK, 05/09/2024, 11:18. [facility], MR, MR HEAD/BRAIN WO CON, 05/09/2024, 13:45. [facility], CT, CT CERVICAL SPINE WO CON, 02/07/2025, 13:31. FINDINGS: Image quality: Streak artifact can be seen through the skull base. CSF Spaces: Basal cisterns are patent. No extra-axial fluid collections. Ventricles are normal in size and shape. Brain: No midline shift. No intracranial bleeds or masses. No abnormal intracranial enhancement. Young-white interface appears normal. Symmetric calcification can be seen involving the basal ganglia, which is considered to be normal for age. Note is made of age-appropriate brain parenchymal volume loss and chronic small vessel ischemic changes. Skull and face: Calvarium and visualized facial bones appear intact, without suspicious lesions. Sinuses: Visualized sinuses and mastoids are clear. IMPRESSION: No acute intracranial hemorrhage is seen. No acute intracranial process is seen. Dictated by: Elvis Michele M.D. on 02/07/2025 at 12:56 Approved by: Elvis Michele M.D. on 02/07/2025 at 12:58
--- NOTE | 2025-02-07 13:28 | DI.CT.S_ITS ---
PROCEDURE: CT CERVICAL SPINE WO CON INDICATIONS: Fall 02/05 on thinners, ongoing neck pain TECHNIQUE: Noncontrast 3 mm thick sections acquired from the skull base to the T4 level. Sagittal and coronal reformats were then constructed. For radiation dose reduction, the following was used: automated exposure control, adjustment of mA and/or kV according to patient size. COMPARISON: [facility], CT, CT ANGIO HEAD AND NECK, 05/09/2024, 11:18. [facility], CT, CT HEAD/BRAIN W CON, 02/07/2025, 13:31. [facility], CT, C- SPINE WITHOUT CONTRAST, 05/08/2017, 22:22. FINDINGS: Image quality: Excellent. Bones: No fractures or dislocations. Visualized superior ribs are intact. Anterior fixation hardware can be seen C3 through C5, with disc spacer seen at C3-C4, C4-C5, C5-C6, and C6-C7. Focal degenerative change is seen involving the C1-C2 interface anteriorly. There is grade 1 anterolisthesis seen at the C6-C7 level, without an associated fracture. This appears similar to 2023. Multiple levels of significant facet hypertrophy can be seen. Multiple levels of degenerative change can be seen within the visualized thoracic spine. Soft tissues: Prevertebral soft tissues are normal in thickness. No paravertebral hematomas. No apical pneumothoraces. IMPRESSION: No displaced fracture or traumatic subluxation. Extensive postoperative hardware. Stable anterolisthesis at C7-T1. Dictated by: Elvis Michele M.D. on 02/07/2025 at 12:59 Approved by: Elvis Michele M.D. on 02/07/2025 at 13:02
[2025-02-07 17:57] VITALS: BP 184/87; PULSE 61; O2SAT 8
[2025-02-07 18:00] VITALS: O2SAT 94
[2025-02-07 18:01] VITALS: BP 167/90; PULSE 60; O2SAT 94
--- NOTE | 2025-02-07 18:02 | ED.FALL ---
HPI - Fall General Chief Complaint: Fall Stated Complaint: fell last night confusion Time Seen by Provider: 02/07/25 18:02 Source: patient, RN notes reviewed and old records reviewed Mode of arrival: Family Vehicle Limitations: no limitations History of Present Illness HPI Narrative: 80-year-old female history of atrial fibrillation on apixaban who presents with complaint of ground level fall. Patient states she was walking around her bed fell backwards hit her head. She does not believe that she lost consciousness. States it was a trip and fall backwards. She states she does have some neck and back pain but states she was chronic neck and back pain that is not particularly worse than normal. She denies any headaches. She denies any changes to mentation. She denies any chest pain or shortness of breath. No hip pain. No nausea or vomiting. No abdominal or flank pain. No new GI or urinary symptoms. She denies any difficulty with movement of extremities or concern for fracture. Patient states she has chronic pain but states not significant worsening. Former smoker, occasional alcohol, denies any recreational drugs. Related Data Home Medications ?Medication ?Instructions ?Recorded ?Confirmed acetaminophen 500 mg tablet 1,000 mg PO TID PRN Pain (Scale 11/01/22 12/27/24 (Tylenol Extra Strength) Score 1-3) carvedilol 12.5 mg tablet 12.5 mg PO BID 03/28/24 12/27/24 clopidogrel 75 mg tablet 75 mg PO DAILY 12/27/24 12/27/24 Previous Rx's ?Medication ?Instructions ?Recorded nitroglycerin 0.4 mg sublingual See Rx Instructions .Route 10/11/22 tablet .COMPLEX ##25 tiotropium 2.5 mcg-olodaterol 2.5 2 puff inhalation BID #4 grams 10/17/23 mcg/actuation mist for inhalation lidocaine 5 % topical patch 2 patch topical DAILY PRN pain #60 11/16/23 ea methocarbamol 750 mg tablet 750 mg PO Q8H PRN muscle spasms 11/16/23 #90 tabs Circulation and pain relief are See Rx Instructions .Route 03/14/24 compression foot and calf boot .COMPLEX #2 ea Disabled Parking Permit See Rx Instructions .Route 04/02/24 .COMPLEX #1 unit apixaban 5 mg tablet (Eliquis) 5 mg PO BID #200 tabs 05/09/24 atorvastatin 80 mg tablet 80 mg PO QPM #90 tabs 05/18/24 amlodipine 5 mg tablet 5 mg PO DAILY #90 tabs 07/30/24 bupropion HCl 200 mg tablet,12 hr 200 mg PO DAILY #90 tabs 07/30/24 sustained-release cefdinir 300 mg capsule 300 mg PO BID #10 caps 08/20/24 duloxetine 60 mg capsule,delayed 60 mg PO DAILY #90 caps 08/20/24 release nystatin 100,000 unit/gram topical 1 applic topical BID #30 grams 10/24/24 powder zaleplon 10 mg capsule 20 mg (2 x 10 mg) PO BEDTIME PRN 11/13/24 sleep #180 caps buprenorphine 10 mcg/hour weekly 1 patch transdermal QWEEK #4 ea 12/18/24 transdermal patch buprenorphine 12 mg-naloxone 3 mg 2 film buccal Q24H #60 ea 12/18/24 sublingual film (Suboxone) buprenorphine 8 mg-naloxone 2 mg 2 film buccal BEDTIME PRN pain #30 12/18/24 sublingual film ea dextroamphetamine-amphetamine 20 See Rx Instructions .Route 12/18/24 mg tablet .COMPLEX #60 tabs dextroamphetamine-amphetamine 20 20 mg PO BID #60 tabs 25 mg tablet (Adderall) dextroamphetamine-amphetamine 20 20 mg PO BID #60 tabs 25 mg tablet (Adderall) tirzepatide 5 mg/0.5 mL 5 mg (0.5 mL) SUBCUT QWEEK #2 mL 01/25/25 subcutaneous pen injector tirzepatide 7.5 mg/0.5 mL 7.5 mg (0.5 mL) SUBCUT QWEEK #2 mL 01/25/25 subcutaneous pen injector Allergies Allergy/AdvReac Type Severity Reaction Status Date / Time ipratropium (From Atrovent) Allergy Intermediate voice spasm Verified 12/27/24 09:39 zolpidem (From Ambien) AdvReac Severe sleep Verified 12/27/24 09:39 walking, eating ciprofloxacin AdvReac Intermediate FLUSHING, Verified 12/27/24 09:39 SWEATS, SOB citalopram (CITALOPRAM) AdvReac Intermediate Hallucinati Verified 12/27/24 09:39 ons cyclobenzaprine AdvReac Intermediate FLUSHING, Verified 12/27/24 09:39 SWEATS, SOB pregabalin AdvReac Intermediate FLUSHING/SW Verified 12/27/24 09:39 EATS/SOB Review of Systems Review of Systems ROS Unobtainable: All systems reviewed & are unremarkable except as noted in HPI and below Patient History Medical History Bipolar 1 disorder Insomnia At high risk for cardiovascular disease (Unknown) Hyperlipidemia Severe 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, without psychotic features (07/05/16) Lumbar radiculopathy Hypertensive heart and chronic kidney disease with heart failure and stage 1 through stage 4 chronic kidney disease, or unspecified chronic kidney disease Cardiomegaly CKD (chronic kidney disease) ADD (attention deficit disorder) Peripheral vascular disease of extremity with claudication Kidney cysts Sacralization of lumbar vertebra Foraminal stenosis of lumbar region COVID SOB (shortness of breath) on exertion Class 1 obesity due to excess calories with body mass index (BMI) of 34.0 to 34.9 in adult Depression ADD (attention deficit disorder) Dysphagia Frequent falls Sciatica Loss of voice Dysphagia Encounter for Medicare annual wellness exam Screening for malignant neoplasm of colon COPD (chronic obstructive pulmonary disease) Right leg injury UTI (urinary tract infection) Bilirubin in urine Raynaud's disease without gangrene Peripheral neuropathy Venous stasis Rheumatoid arthritis Fibromyalgia Pneumonia Cystic fibrosis (~1956) Post traumatic stress disorder (PTSD) Anxiety Arachnoiditis Stroke Restless leg syndrome Scoliosis Osteoporosis Degenerative joint disease (DJD) of lumbar spine Foot pain Fibromyalgia Chronic back pain Cervical spine disease Ankle pain Anemia Vertigo (~1968) Cataracts, bilateral Heavy menstrual period Abnormal Pap smear of cervix (~1956) Kidney stones GI bleeding GERD (gastroesophageal reflux disease) Skin cancer (~1996) Hypertension Atrial fibrillation Surgical History History of lumbar fusion History of neck surgery History of back surgery History of knee replacement (11/29/16) Status post bunionectomy (08/11/15) History of hip replacement S/P total abdominal hysterectomy and bilateral salpingo-oophorectomy Status post tonsillectomy and adenoidectomy Status post tubal ligation Status post cholecystectomy Status post appendectomy Social History marital status: household members: spouse, family and friend(s) Smoking Status: Former smoker alcohol intake: never substance use type: does not use Smoking Status: Former smoker alcohol intake frequency: 0-2 drinks per day Exam Narrative Exam Narrative: GEN: Patient appears in mild distress. HEAD: No evidence of trauma, no raccoon/Espinosa sign. NECK: Nontender, painless range of motion, trachea midline Negative Nexus criteria, no midline line tenderness, distracting injury, altered mental status, neuro deficit, recent EtOH. EYES: PERRLA, EOMI ENT: External inspection normal, trachea is midline, TM's are normal no hemotypanum, Nares are clear, no septal hematoma, no dental or oral injury, airway is normal and with normal occlusion, No bony tenderness RESP: Chest is nontender and has symmetric movement, no ecchymosis, breath sounds are normal no crackles, wheezes or rales CVS: Heart sounds are normal, no murmur noted, No JVD. ABG/GI: Nontender, soft, normal bowel sounds, no distention, no organomegaly, pelvic rock is negative NEURO: Oriented AOx3, neuro is grossly intact, sensation and motor is normal all 4 extremities moving, cranial nerves II through XII are intact, GCS is 15 PSYCH: Normal mood and affect SKIN: Intact, warm and dry, no crepitus and without decubitus BACK: No CVA tenderness, no vertebral tenderness, no step-off's, no crepitus EXT: Atraumatic, hips are nontender, no pedal edema, normal color and temperature, normal range of motion of extremities with normal tendon exam, 2+ pulses in all four extremities Initial Vital Signs Initial Vital Signs: Vital Signs Temperature 98.7 F 02/07/25 13:20 Pulse Rate 94 H 02/07/25 13:20 Respiratory Rate 16 02/07/25 13:20 Blood Pressure 154/91 H 02/07/25 13:20 Pulse Oximetry 94 02/07/25 13:20 Oxygen Delivery Method Room Air 02/07/25 13:[address] Head Rule Age <16 years old: No Patient on blood thinners: Yes Seizure after injury: No Exclusion: Patient meets exclusion criteria GCS < 15 at 2 hr post trauma: No Suspected open or depressed skull fracture: No Any sign of basilar skull fracture (hemotympanum, raccoon eyes, Espinosa's sign, CSF robby-/rhinorrhea): No Two or more episodes of vomiting: No Age greater or equal to 65 years: Yes Retrograde amnesia to the event greater or equal to 30 min: No Dangerous Mechanism (pedestrian vs. mv, occupant ejected from mv, fall from >3 ft or > 5 stairs): No Recommendation: Consider CT. The [place] Head CT Rule cannot rule out need for Imaging. GCS [place] coma scale eye opening: Spontaneous [place] coma scale verbal response: Orientated [place] coma scale motor response: Obey commands [place] coma scale total score: 15 Nexus Score for C-Spine Focal Neurologic deficit present: No Midline spinal tenderness present: No Altered level of conciousness present: No Intoxication present: No Distracting Injury Present: No Nexus Criteria for C-spine: 0 Course Orders Ordered: ED Orders 02/07/25 13:28 CT cervical spine wo con Stat CT head/brain w con Stat Vital Signs Vital signs: Vital Signs - 8 hr 02/07/25 13:20 Temperature 98.7 F Pulse Rate 94 H Respiratory Rate 16 Blood Pressure 154/91 H Pulse Oximetry 94 Oxygen Delivery Method Room Air MDM - Fall MDM Narrative Medical decision making narrative: Head CT shows no acute intracranial hemorrhage, no acute intracranial process seen. CT cervical spine shows no displaced fracture or traumatic ablation, extensive postoperative hardware. Stable anterolisthesis at C7-T1. 80-year-old female describes a mechanical ground level fall. Based on extremity age and anticoagulation head CT and CT cervical spine were obtained she does note some neck and back pain but states these are at her baseline. Her exam is overall reassuring. She was alert, appropriate felt appropriate for discharge she notes she has been ambulating today since her fall. She desires discharge home. Discussed return precautions. Discharge Plan Departure Patient Disposition: Home Clinical Impression: Fall, Head injury Instructions: DI for Closed Head Injury Activity Restrictions/Additional Instructions: Follow up with your physician for rechecked as needed. You can take acetaminophen up to a 1000 mg every 6 hours as needed for pain. Please return for severe headaches, new neck or back pain, new chest pain or shortness of breath, persistent vomiting, changes to mentation, new changes or difficulty with ambulation or new numbness tingling or weakness or other new or concerning changes. Prescriptions: No Action carvedilol 12.5 mg tablet 12.5 mg PO BID cefdinir 300 mg capsule 300 mg PO BID Qty: 10 0RF tiotropium-olodaterol 2.5-2.5 mcg/actuation mist 2 puff inhalation BID Qty: 4 0RF nitroglycerin 0.4 mg tablet, sublingual See Rx Instructions .ROUTE .COMPLEX Qty: 25 1RF Dose Instruction: Dissolve 1 tablet under tongue every 5-15 minutes up to 3 times for chest pain. If persists, call 911. Rx Instructions: Dissolve 1 tablet under tongue every 5-15 minutes up to 3 times for chest pain. If persists, call 911. Disabled Parking Permit See Rx Instructions .ROUTE .COMPLEX Qty: 1 0RF Rx Instructions: I find this patient to be medically disabled and qualify for disabled parking as indicated and signed on the accompanying disabled parking application for individuals. Eliquis 5 mg tablet 5 mg PO BID Qty: 200 3RF Rx Instructions: Take 1 tab twice per day for anticoagulation duloxetine 60 mg capsule,delayed release(DR/EC) 60 mg PO DAILY Qty: 90 3RF Rx Instructions: Take 1 cap at bedtime daily for depression nystatin 100,000 unit/gram powder 1 applic topical BID Qty: 30 1RF zaleplon 10 mg capsule 20 mg PO BEDTIME PRN (Reason: sleep) Qty: 180 3RF Rx Instructions: must avoid high-fat meal/food immediately before taking dose tirzepatide 5 mg/0.5 mL pen injector 5 mg SUBCUT QWEEK Qty: 2 1RF Rx Instructions: Inject weekly for at least 4 weeks. Start after completing 2.5mg tirzepatide 7.5 mg/0.5 mL pen injector 7.5 mg SUBCUT QWEEK Qty: 2 0RF Rx Instructions: Inject weekly SQ x4+ weeks, ok to increase once stalled in weight loss. Start after completing 5.0mg dosage lidocaine 5 % adhesive patch,medicated 2 patch topical DAILY PRN (Reason: pain) Qty: 60 3RF Rx Instructions: leave on most painful areas for up to 12 hrs methocarbamol 750 mg tablet 750 mg PO Q8H PRN (Reason: muscle spasms) Qty: 90 4RF Circulation and pain relief are compression foot and calf boot See Rx Instructions .ROUTE .COMPLEX Qty: 2 0RF Rx Instructions: Wear on bilateral legs for 1-2 hours 2-3 times per day for edema and leg pain; atorvastatin 80 mg tablet 80 mg PO QPM Qty: 90 2RF bupropion HCl 200 mg tablet sustained-release 12 hr 200 mg PO DAILY Qty: 90 3RF amlodipine 5 mg tablet 5 mg PO DAILY Qty: 90 3RF clopidogrel 75 mg tablet 75 mg PO DAILY acetaminophen [Tylenol Extra Strength] 500 mg tablet 1,000 mg PO TID PRN (Reason: Pain (Scale Score 1-3)) Rx Instructions: Not to exceed 3000mg/24 hours dextroamphetamine-amphetamine 20 mg tablet See Rx Instructions .ROUTE .COMPLEX Qty: 60 0RF Rx Instructions: Take 1 tab by mouth twice per day 4-6 hours apart dextroamphetamine-amphetamine [Adderall] 20 mg tablet 20 mg PO BID Qty: 60 0RF Rx Instructions: administer doses at least 4-6 hours apart dextroamphetamine-amphetamine [Adderall] 20 mg tablet 20 mg PO BID Qty: 60 0RF Rx Instructions: administer doses at least 4-6 hours apart buprenorphine 10 mcg/hour patch weekly 1 patch transdermal QWEEK Qty: 4 3RF buprenorphine-naloxone [Suboxone] 12-3 mg film 2 film buccal Q24H Qty: 60 3RF Rx Instructions: place 2 strip/tab under (each) side of tongue daily for pain relief buprenorphine-naloxone 8-2 mg film 2 film buccal BEDTIME PRN (Reason: pain) Qty: 30 1RF Rx Instructions: place 1 film on inside of (each) cheek in the p.m. as needed for severe pain Referrals: Nabor Starkey MD [Primary Care Provider, Family Practice] Stand Alone Forms: Patient Portal/API
== END 2025-02-07 18:19 | disposition home or self-care (01) ==
PROVIDERS: Emergency Provider Emergency Medicine; Family Provider Nurse Practitioner; PCP Family Medicine
DX: S09.90XA Unspecified injury of head, initial encounter (principal); W18.30XA Fall on same level, unspecified, initial encounter; Z79.01 Long term (current) use of anticoagulants
CPT/HCPCS: 70460; 72125; 99283; 99284

== ENCOUNTER 2025-02-25 12:15 | Outpatient (RCR) | payer MEDICARE, MEDICAID, SELFPAY ==
[2024-05-09 17:41] VITALS: BMI 29.8
--- NOTE | 2024-06-19 11:27 | ST.OP.ACL ---
Visit Care Team Role Provider Type HAMZAH Navas Family Provider Advanced Metallurgical Or Materials Technician Specialty: Family Practice Address: [address] [place] [address], [id number] Email: [email or web address] Nabor Starkey MD Attending Provider Physician Primary Care Provider Referring Provider Specialty: [facility] Address: [address] [place] [address], [id number] Email: [email or web address] Adult Cognitive Linguistic Evaluation FURNITURE REPAIRER Adult Cognitive Linguistic Eval Start: 06/18/24 12:59 Freq: Status: Active Protocol: Document 06/18/24 13:00 CG (Rec: 06/18/24 14:07 CG [id number]) Adult Cognitive Linguistic Evaluation Session Time Visit Start Time 13:00 Visit Stop Time 14:00 Total Visit Minutes 60 Visit Information Visit Number Initial Evaluation Plan of Care Dates 06/18/24-09/18/24 Insurance Information [facility] Referral Referring Provider Nabor Starkey Reason for Referral Expressive aphasia, cognitive concerns Setting Assessment Location Outpatient Care Visit Type Note Type Initial evaluation Next Note Type Next Note Type Treatment Note Patient Information Identification Type Name Patient History Janet carlton is a 79 year old female presenting to this clinic for an outpatient evaluation of speech-language and cognition secondary to a recent stroke which resulted in expressive aphasia. She was admitted to ED at this hospital on 05/09/24 with MRI indicating acute small focal infarct in the posterior medial left temporal lobe. 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 She was seen by another FURNITURE REPAIRER at this facility (Martha Lunsford, LOGAN ) on 05/10/24 for an assessment of cognition and language before discharging home on 05/11 with caregiver assistance 5 days/week. At the time of her inpatient cognitive- language assessment, the [facility] Mental Status examination (SLUMS) and the Quick Aphasia Batetry (QAB were administered). On the SLUMS (which measures various domains of cognition including attention, memory, and orientation), Janet scored a 7 out of 30, which is indicative of moderate-severe impairment in cognition. On the QAB, Janet scored an overall score of 7.40-10.00, indicative of moderate impairment in language skills. It was recommended that Janet discharge home with her caregiver, Milady, who manages IADLs and assists with most ADLs during the week. Milady reported that the pt's family member Bob also helps with Janet's IADLs. Since discharge from the hospital, pt and caregiver state that Janet's language has improved, but Janet also states that she is more aware of her speech/language errors, which has caused increased frustration. She also is having some remaining difficulties with memory/ cognition. 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 Vikas was seen by [facility] speech therapy for one visit, but has not received any other speech therapy since her stroke. She is also receiving physical therapy at this facility twice per week. Language(s) Spoken in the Home Vietnamese Education Level GED Occupation Status Retired Hearing Hearing Level Normal Vision Vision Status Impaired Comments R visual neglect Previous Therapy Previous Speech-Language Therapy Yes History of Therapy Pt was seen inpatient at this hospital, then was seen once by [facility]. Subjective Patient Report Pt arrived on time to her appointment accompanied by her caregiver, Milady. She used a 3-wheel rollator to ambulate to the assessment room and reported that she was feeling well; did not report any pain. Janet commented that she was feeling frustrated and confused by her speech and was eager to know if her language difficulties could be remediated. She was cooperative throughout the assessment, demonstrating appropriate interaction and affect and intact orientation. Her speech was intelligible, though still occasionally characterized by anomia, empty speech, abandoned utterances, false starts, and Conduite d' approche. Pt was able to communicate approximately 70% of her message without the need for conversation partner assistance. Mental Status Alert,Responsive,Cooperative Assessment Oral Motor Examination Completed Yes Results Mildly slowed movements, but overall oral motor structure and function appear adequate for speech. Informal Assessment Receptive Language Normal No Receptive Language Impairment(s) Comprehension of complex yes/ no questions Expressive Language Normal No Expressive Language Impairment(s) Confrontation naming, Expression of basic wants/ needs,Expression of complex thoughts/ideas Pragmatic Language Normal Yes Speech Normal No Speech Impairment(s) Imprecise articulation,Slow speech rate Cognition Normal No Formal Assessment Results Both the Quick Aphasia Battery (QAB) and the Short Form of the [place] Naming Test (BNT) were administered. Quick Aphasia Battery: The pt was administered the Quick Aphasia Battery (QAB) which aims to provide a reliable and multidimensional assessment of language function. The QAB is made up of eight subtests, each comprising sets of items that probe different language domains, vary in difficulty, and are scored with a graded system to maximize the informativeness of each item. From the eight subtests, eight summary measures are derived, which constitute a multidimensional profile of language function, quantifying strengths and weaknesses across core language domains. The pt scored as follows: Word comprehension9.58 Sentence comprehension7.92 Word finding7.25 Grammatical construction7.00 Speech motor zablmxoztwq38.00 Ntcbdkepls14.00 Osuclwf86.00 QAB overall8.23 According to the authors of the QAB, QAB Overall Scores can be interpreted as follows: QAB overall scoreSeverity 0.00?4.99severe 5.00?7.49moderate 7.50?8.89mild 8.90?10.00no aphasia Based on these descriptions, Janet's score on the QAB is consistent with mild aphasia. This indicates some overall improvement in receptive and expressive language abilities compared to initial inpatient evaluation on 05/10/24. However , Janet has some deficits remaining, particularly in word finding and grammatical construction. [place] Naming Test - Short Form: The BNT, Second Edition, Short Form (Bee, Tricia, & Ellyn, 2001) is a picture- based test that assesses confrontation naming of nouns. It takes approximately 15 mins to administer and contains 15 items. Phonemic and/or semantic cues may be required to assist the person to name the picture. Janet scored a 9/15 on the BNT- Short Form. She benefitted both from phonemic cues and semantic/urdc-fe-yhb-blank cues. According to Smooth et al ( 1999), the mean score for the short form of the BNT-Short Form for a normal population is 13.4, with a standard deviation of 1.8. Janet's score of 9 is greater than 2 standard deviations below the mean, which is consistent with a significant impairment in confrontation naming abilities (a roberto characteristic of expressive aphasia). Based on the results of the QAB and the BNT-Short Form, Janet continues to present with mild-moderate expressive aphasia, with some mild receptive aphasia symptoms also present. Findings/Results Language Function Mild-moderately impaired Findings Based on FURNITURE REPAIRER observation of connected speech/conversation along with the results of the QAB and the BNT-Short Form, Janet presents with mild- moderate expressive aphasia with some mild receptive aphasia. Janet's deficits are most evident during confrontation naming tasks, particularly with multisyllabic or high tier vocab (uncommon/low frequency words). Cognitive function was not formally assessed during this evaluation. As of last cognitive evaluation, the pt presented with moderate-severe cognitive deficits. However, pt profile has changed significantly since last administration. Recommend formal re-assessment of cognition when time allows. Pt currently receives caregiver assistance 5 days a week to ensure safety with IADLs. Cognitive Communication Deficits Self-awareness of Cognitive- Situational awareness ( Communication Deficits recognition of problem in context;in real time) Concomitant Factors Concomitant Factors Visual field neglect Impact on Functioning Activity Limits/Particip.Rest. Mild: General Tasks and Demands Household Tasks Mod: Interpersonal Interactions Community Prognosis Prognosis Fair Based on Comorbidities Plan of Care Speech-Language Treatment Yes Frequency Weekly Duration 3-6 months Patient/Caregiver Education Described results of evaluation,Patient expressed understanding of evaluation, Patient expressed agreement with goals and treatment plans ,Family/caregivers expressed understanding of evaluation, Family/caregivers expressed agreement with goals and treatment plan,Patient requires further education/ training,Family/caregivers require further education/ training Short Term Goals 1. Janet will complete confrontation naming tasks for 2 to 3-syllable words with 90 % accuracy given orthographic cues. 2. Janet will produce a minimum of 4 different features when presented with a target word using semantic feature analysis (SFA), given minimal verbal prompts, with 75% accuracy. 3. Janet and caregivers/family will benefit from education in home/carryover activities for aphasia rehabilitation. 4. Janet will complete a re- assessment of cognition to further guide POC r/t cognition/memory. Group Home Goals Janet will complete confrontation naming tasks for 2 to 3-syllable words with 80 % accuracy without the need for FURNITURE REPAIRER cues. Janet will increase her score on the QAB to an overall score of at least 8.9/10.00 ( consistent with no aphasia).
--- NOTE | 2024-06-19 11:28 | ST.OPPOC ---
Physical, Occupational & Speech Therapy At [facility] Visit Care Team Role Provider Type HAMZAH Navas Family Provider Advanced Golf Cart Assembler Address: [address] [place] [address], [id number] Nabor Starkey MD Attending Provider Physician Primary Care Provider Referring Provider Address: [address] [place] [address], [id number] Speech Pathology Plan of Care Plan of Care Dates 06/18/24-09/18/24 Referring Provider Nabor Starkey Patient History Janet carlton is a 79 year old female presenting to this clinic for an outpatient evaluation of speech-language and cognition secondary to a recent stroke which resulted in expressive aphasia. She was admitted to ED at this hospital on 05/09/24 with MRI indicating acute small focal infarct in the posterior medial left temporal lobe. 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 She was seen by another SOCIAL MEDIA SENIOR ASSOCIATE at this facility ( Martha Lunsford, LOGAN) on 05/10/24 for an assessment of cognition and language before discharging home on 05/11/24 with caregiver assistance 5 days/week. At the time of her inpatient cognitive-language assessment, the [facility] Mental Status examination (SLUMS) and the Quick Aphasia Batetry (QAB were administered). On the SLUMS (which measures various domains of cognition including attention, memory, and orientation), Jante scored a 7 out of 30, which is indicative of moderate-severe impairment in cognition. On the QAB, Janet scored an overall score of 7.40-10 .00, indicative of moderate impairment in language skills. It was recommended that Janet discharge home with her caregiver, Milady, who manages IADLs and assists with most ADLs during the week. Milady reported that the pt's family member Don also helps with Janet's IADLs. Since discharge from the hospital, pt and caregiver state that Janet's language has improved, but Janet also states that she is more aware of her speech/language errors, which has caused increased frustration. She also is having some remaining difficulties with memory/ cognition. 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 Vikas was seen by [facility] speech therapy for one visit, but has not received any other speech therapy since her stroke. She is also receiving physical therapy at this facility twice per week. Self-awareness of Cognitive- Situational awareness (re Communication Deficits General Tasks and Demands Mild Household Tasks Mild Interpersonal Interactions Moderate Community Moderate MBS Comments Oropharyngeal dysphagia with reduced OM strength . Mastication efficiency compromised due to poor dentition. Laryngeal penetration was noted as well as esophageal retention, narrowing and retrograde flow near mid chest. Referral to GI is recommended. Pt noted she has had EGD many years ago. Additionally she has not had GERD tretment for many years (per pt's report.) Recommended Referrals GI Consult Short Term Goals 1. Janet will complete confrontation naming tasks for 2 to 3-syllable words with 90% accuracy given orthographic cues. 2. Janet will produce a minimum of 4 different features when presented with a target word using semantic feature analysis (SFA), given minimal verbal prompts, with 75% accuracy. 3. Janet and caregivers/family will benefit from education in home/carryover activities for aphasia rehabilitation. 4. Janet will complete a re-assessment of cognition to further guide POC r/t cognition/ memory. [facility] Goals Janet will complete confrontation naming tasks for 2 to 3-syllable words with 80% accuracy without the need for SOCIAL MEDIA SENIOR ASSOCIATE cues. Janet will increase her score on the QAB to an overall score of at least 8.9/10.00 (consistent with no aphasia). Comment: Electronically Signed by: LOGAN Parish 06/19/24 [id number] If you are in agreement with this Plan of Care, please return a signed and dated copy. I have reviewed this Plan of Care and certify that the skilled therapy services above are required to meet the patient?s needs. Physician Signature Date Printed Name and Credentials Clinical Instructor Signature Printed Name and Credentials
--- NOTE | 2024-06-25 13:48 | ST.OPTN ---
Visit Care Team Role Provider Type HAMZAH Navas Family Provider [facility] [employer] Director Address: [address] [place] [address], [id number] Nabor Starkey MD Attending Provider Physician Primary Care Provider Referring Provider Address: [address] [place] [address], [id number] MANAGER ACTIVITIES Treatment Note MANAGER ACTIVITIES Treatment Note Start: 06/25/24 13:43 Freq: Status: Active Protocol: Document 06/25/24 13:43 CG (Rec: 06/25/24 13:48 CG [id number]) Speech Pathology Treatment Note Session Time Visit Start Time 13:00 Visit Stop Time 13:40 Total Visit Minutes 40 Visit Information Visit Number 1 Plan of Care Dates 06/18/24-09/18/24 Setting Treatment Setting Outpatient Care Next Note Type Next Note Type Treatment Note General Information Patient History Janet carlton is a 79 year old female presenting to this clinic for an outpatient evaluation of speech-language and cognition secondary to a recent stroke which resulted in expressive aphasia. She was admitted to ED at this hospital on 05/09/24 with MRI indicating acute small focal infarct in the posterior medial left temporal lobe. 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 She was seen by another MANAGER ACTIVITIES at this facility (Martha Lunsford, LOGAN ) on 05/10/24 for an assessment of cognition and language before discharging home on 05/11 with caregiver assistance 5 days/week. At the time of her inpatient cognitive- language assessment, the [facility] Mental Status examination (SLUMS) and the Quick Aphasia Batetry (QAB were administered). On the SLUMS (which measures various domains of cognition including attention, memory, and orientation), Janet scored a 7 out of 30, which is indicative of moderate-severe impairment in cognition. On the QAB, Janet scored an overall score of 7.40-10.00, indicative of moderate impairment in language skills. It was recommended that Janet discharge home with her caregiver, Milady, who manages IADLs and assists with most ADLs during the week. Summer reported that the pt's family member Don also helps with Janet's IADLs. Since discharge from the hospital, pt and caregiver state that Janet's language has improved, but Janet also states that she is more aware of her speech/language errors, which has caused increased frustration. She also is having some remaining difficulties with memory/ cognition. 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 Vikas was seen by [facility] speech therapy for one visit, but has not received any other speech therapy since her stroke. She is also receiving physical therapy at this facility twice per week. Subjective Identification Type Name Chief Complaint(s) Language,Cognitive Objective Short Term Goals 1. Janet will complete confrontation naming tasks for 2 to 3-syllable words with 90 % accuracy given orthographic cues. 2. Janet will produce a minimum of 4 different features when presented with a target word using semantic feature analysis (SFA), given minimal verbal prompts, with 75% accuracy. 3. [employer] and caregivers/family will benefit from education in home/carryover activities for aphasia rehabilitation. 4. Janet will complete a re- assessment of cognition to further guide POC r/t cognition/memory. Chcf Goals Janet will complete confrontation naming tasks for 2 to 3-syllable words with 80 % accuracy without the need for MANAGER ACTIVITIES cues. Janet will increase her score on the QAB to an overall score of at least 8.9/10.00 ( consistent with no aphasia). Treatment Activities Confrontation naming tasks with [employer] Language diogo cue cards for stimuli. Utilized graded cueing to facilitate word retrieval. Introduced SFA/description task with MANAGER ACTIVITIES providing cues to complete. Introduced circumlocution/ description game and encouraged pt and managed care analyst to play this at home. Assessment Patient Response to Treatment Good Rehab Potential Good Progress Towards Goals Good Progress Assessment of Overall Progress Improving Assessment of Improvement Pt was highly receptive to confrontation naming task and was able to complete confrontation naming of 3-word syllables with 75% accuracy independently, increasing to 95% accuracy given first letter cue alone. During description task, pt required mod-max verbal and orthographic cues to complete description. However, she demonstrated increasing understanding of task throughout the session. Pt was eager to continue description game with managed care analyst. They plan to look for an old copy of Geno game to practice at home. Reviewed with Patient Home Exercise Program Patient/Caregiver Understanding Good Plan Amount of Therapy Recommended 2-3 Months Frequency of Treatment Once a Week Length of Session 30 Minutes Therapeutic Contents Auditory Comprehension, Cognitive-Linguistic Training, Expressive Language Training
--- NOTE | 2024-07-02 13:57 | ST.OPTN ---
Visit Care Team Role Provider Type HAMZAH Navas Family Provider Advanced Cylinder Press Operator Address: [address] [place] [address], [id number] Nabor Starkey MD Attending Provider Physician Primary Care Provider Referring Provider Address: [address] [place] [address], [id number] DIRECTOR OF ATHLETICS Treatment Note DIRECTOR OF ATHLETICS Treatment Note Start: 06/25/24 13:43 Freq: Status: Active Protocol: Document 07/02/24 13:53 CG (Rec: 07/02/24 13:57 CG [id number]) Speech Pathology Treatment Note Session Time Visit Start Time 13:00 Visit Stop Time 13:53 Total Visit Minutes 53 Visit Information Visit Number 2 Plan of Care Dates 06/18/24-09/18/24 Setting Treatment Setting Outpatient Care Next Note Type Next Note Type Treatment Note General Information Patient History Janet carlton is a 79 year old female presenting to this clinic for an outpatient evaluation of speech-language and cognition secondary to a recent stroke which resulted in expressive aphasia. She was admitted to ED at this hospital on 05/09/24 with MRI indicating acute small focal infarct in the posterior medial left temporal lobe. 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 She was seen by another DIRECTOR OF ATHLETICS at this facility (Martha Lunsford, [facility] ) on 05/10/24 for an assessment of cognition and language before discharging home on 05/11 with caregiver assistance 5 days/week. At the time of her inpatient cognitive- language assessment, the [facility] Mental Status examination (SLUMS) and the Quick Aphasia Batetry (QAB were administered). On the SLUMS (which measures various domains of cognition including attention, memory, and orientation), Janet scored a 7 out of 30, which is indicative of moderate-severe impairment in cognition. On the QAB, Janet scored an overall score of 7.40-10.00, indicative of moderate impairment in language skills. It was recommended that Janet discharge home with her caregiver, Milady, who manages IADLs and assists with most ADLs during the week. Summer reported that the pt's family member Don also helps with Janet's IADLs. Since discharge from the hospital, pt and caregiver state that Janet's language has improved, but Janet also states that she is more aware of her speech/language errors, which has caused increased frustration. She also is having some remaining difficulties with memory/ cognition. 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 Vikas was seen by [facility] speech therapy for one visit, but has not received any other speech therapy since her stroke. She is also receiving physical therapy at this facility twice per week. Subjective Identification Type Name Chief Complaint(s) Language,Cognitive Objective Short Term Goals 1. Janet will complete confrontation naming tasks for 2 to 3-syllable words with 90 % accuracy given orthographic cues. 2. Janet will produce a minimum of 4 different features when presented with a target word using semantic feature analysis (SFA), given minimal verbal prompts, with 75% accuracy. 3. Janet and caregivers/family will benefit from education in home/carryover activities for aphasia rehabilitation. 4. Janet will complete a re- assessment of cognition to further guide POC r/t cognition/memory. Care Home Goals Janet will complete confrontation naming tasks for 2 to 3-syllable words with 80 % accuracy without the need for DIRECTOR OF ATHLETICS cues. Janet will increase her score on the QAB to an overall score of at least 8.9/10.00 ( consistent with no aphasia). Treatment Activities Confrontation naming tasks with Pro-Ed vocabulary photographs (community/ locations) for stimuli. Utilized graded cueing to facilitate word retrieval. Continued SFA/description task with DIRECTOR OF ATHLETICS providing cues to complete. Provided caregiver education re use of writing down roberto words to allow pt to comprehend complex conversation. Briefly discussed developing flashcards for recall of family members' names. Assessment Patient Response to Treatment Good Rehab Potential Good Progress Towards Goals Good Progress Assessment of Overall Progress Improving Assessment of Improvement Pt was highly receptive to confrontation naming task and was able to complete confrontation naming tasks with 75% accuracy independently, increasing to 100% accuracy given first letter cue alone. DIRECTOR OF ATHLETICS encouraged pt to describe target pictures to self-cue, which resulted in pt recalling target word x1. During description task, pt required mod-max verbal and orthographic cues to complete description. Pt occasionally became confused by complex directions, and benefitted from use of roberto words written on whiteboard. Pt and caregiver were encouraged to get a whiteboard to use for cueing at home. DIRECTOR OF ATHLETICS will create flashcards based on descriptors of family members. Reviewed with Patient Home Exercise Program Patient/Caregiver Understanding Good Plan Amount of Therapy Recommended 2-3 Months Frequency of Treatment Once a Week Length of Session 30 Minutes Therapeutic Contents Auditory Comprehension, Cognitive-Linguistic Training, Expressive Language Training
--- NOTE | 2024-07-09 13:56 | ST.OPTN ---
Visit Care Team Role Provider Type HAMZAH Navas Family Provider Advanced Collar Sewer Address: [address] [place] [address], [id number] Nabor Starkey MD Attending Provider Physician Primary Care Provider Referring Provider Address: [address] [place] [address], [address] MEDICAL ONCOLOGY PHYSICIAN Treatment Note MEDICAL ONCOLOGY PHYSICIAN Treatment Note Start: 06/25/24 13:43 Freq: Status: Active Protocol: Document 07/09/24 13:48 CG (Rec: 07/09/24 13:56 CG [id number]) Speech Pathology Treatment Note Session Time Visit Start Time 13:00 Visit Stop Time 13:47 Total Visit Minutes 47 Visit Information Visit Number 3 Plan of Care Dates 06/18/24-09/18/24 Setting Treatment Setting Outpatient Care Next Note Type Next Note Type Treatment Note General Information Patient History Janet carlton is a 79 year old female presenting to this clinic for an outpatient evaluation of speech-language and cognition secondary to a recent stroke which resulted in expressive aphasia. She was admitted to ED at this hospital on 05/09/24 with MRI indicating acute small focal infarct in the posterior medial left temporal lobe. 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 She was seen by another MEDICAL ONCOLOGY PHYSICIAN at this facility (Martha Lunsford, LOGAN ) on 05/10/24 for an assessment of cognition and language before discharging home on 05/11 with caregiver assistance 5 days/week. At the time of her inpatient cognitive- language assessment, the [facility] Mental Status examination (SLUMS) and the Quick Aphasia Batetry (QAB were administered). On the SLUMS (which measures various domains of cognition including attention, memory, and orientation), Janet scored a 7 out of 30, which is indicative of moderate-severe impairment in cognition. On the QAB, Janet scored an overall score of 7.40-10.00, indicative of moderate impairment in language skills. It was recommended that Janet discharge home with her caregiver, Milady, who manages IADLs and assists with most ADLs during the week. Summer reported that the pt's family member Don also helps with Janet's IADLs. Since discharge from the hospital, pt and caregiver state that Janet's language has improved, but Janet also states that she is more aware of her speech/language errors, which has caused increased frustration. She also is having some remaining difficulties with memory/ cognition. 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 Vikas was seen by [facility] speech therapy for one visit, but has not received any other speech therapy since her stroke. She is also receiving physical therapy at this facility twice per week. Subjective Identification Type Name Chief Complaint(s) Language,Cognitive Objective Short Term Goals 1. Janet will complete confrontation naming tasks for 2 to 3-syllable words with 90 % accuracy given orthographic cues. 2. Janet will produce a minimum of 4 different features when presented with a target word using semantic feature analysis (SFA), given minimal verbal prompts, with 75% accuracy. 3. Janet and caregivers/family will benefit from education in home/carryover activities for aphasia rehabilitation. 4. Janet will complete a re- assessment of cognition to further guide POC r/t cognition/memory. Jail Goals Janet will complete confrontation naming tasks for 2 to 3-syllable words with 80 % accuracy without the need for MEDICAL ONCOLOGY PHYSICIAN cues. Janet will increase her score on the QAB to an overall score of at least 8.9/10.00 ( consistent with no aphasia). Treatment Activities Reviewed flashcards of names of familiar adults. Continued SFA/description task with MEDICAL ONCOLOGY PHYSICIAN providing cues to complete. Practiced description strategy with orthpgraphic/written cues for each descriptor. Assessment Patient Response to Treatment Good Rehab Potential Good Impairments Identified Expressive language,Receptive language,Cognitive communication Progress Towards Goals Good Progress Assessment of Overall Progress Unchanged Assessment of Improvement During description task, pt required mod-max verbal and orthographic cues to complete description again this session . Pt occasionally became confused by complex directions , and benefitted from use of simplified verbal instructions . Pt was able to recall target names with flashcards in approximately 30% of opportunities. MEDICAL ONCOLOGY PHYSICIAN provided flashcards for home practice. Pt and caregiver were again encouraged to get a whiteboard to use for cueing at home. Pt is eager for more frequent sessions. Will update plan of care due to pt willingness and slowed progress due to cognitive deficits. Increase tx frequency. Reviewed with Patient Home Exercise Program Patient/Caregiver Understanding Good Plan Amount of Therapy Recommended 2-3 Months Frequency of Treatment Twice a Week Length of Session 30 Minutes Therapeutic Contents Auditory Comprehension, Cognitive-Linguistic Training, Expressive Language Training Provided Patient/Caregiver Instruction Plan of Care Therapy Recommendations Increase Frequency of Rehabilitation
--- NOTE | 2024-07-09 14:01 | ST.OPPOC ---
Physical, Occupational & Speech Therapy At [facility] Visit Care Team Role Provider Type HAMZAH Navas Family Provider Advanced Nurse Monitoring Address: [address] [place] [address], [id number] Nabor Starkey MD Attending Provider Physician Primary Care Provider Referring Provider Address: [address] [place] [address], [address] Speech Pathology Plan of Care Plan of Care Dates 07/09/24-09/18/24 Referring Provider Nabor Starkey Patient History Janet carlton is a 79 year old female presenting to this clinic for an outpatient evaluation of speech-language and cognition secondary to a recent stroke which resulted in expressive aphasia. She was admitted to ED at this hospital on 05/09/24 with MRI indicating acute small focal infarct in the posterior medial left temporal lobe. 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 She was seen by another UNDERWRITING SPECIALIST at this facility ( Martha Lunsford, LOGAN) on 05/10/24 for an assessment of cognition and language before discharging home on 05/11/24 with caregiver assistance 5 days/week. At the time of her inpatient cognitive-language assessment, the [facility] Mental Status examination (SLUMS) and the Quick Aphasia Batetry (QAB were administered). On the SLUMS (which measures various domains of cognition including attention, memory, and orientation), Janet scored a 7 out of 30, which is indicative of moderate-severe impairment in cognition. On the QAB, Janet scored an overall score of 7.40-10 .00, indicative of moderate impairment in language skills. It was recommended that Janet discharge home with her caregiver, Milady, who manages IADLs and assists with most ADLs during the week. Milady reported that the pt's family member Don also helps with Janet's IADLs. Since discharge from the hospital, pt and caregiver state that Janet's language has improved, but Janet also states that she is more aware of her speech/language errors, which has caused increased frustration. She also is having some remaining difficulties with memory/ cognition. 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 Vikas was seen by [facility] speech therapy for one visit, but has not received any other speech therapy since her stroke. She is also receiving physical therapy at this facility twice per week. POC for cognitive-linguistic therapy being updated to 2x/week due to pt need for extra support to increase carryover of cog-linguistic strategies introduced in therapy. Impairments Identified Expressive language,Receptive language,Cognitive communication Progress Towards Goals Good Progress Self-awareness of Cognitive- Situational awareness (re Communication Deficits General Tasks and Demands Mild Household Tasks Mild Interpersonal Interactions Moderate Community Moderate Short Term Goals 1. Janet will complete confrontation naming tasks for 2 to 3-syllable words with 90% accuracy given orthographic cues. 2. Janet will produce a minimum of 4 different features when presented with a target word using semantic feature analysis (SFA), given minimal verbal prompts, with 75% accuracy. 3. Janet and caregivers/family will benefit from education in home/carryover activities for aphasia rehabilitation. 4. Janet will complete a re-assessment of cognition to further guide POC r/t cognition/ memory. Snf Goals Janet will complete confrontation naming tasks for 2 to 3-syllable words with 80% accuracy without the need for UNDERWRITING SPECIALIST cues. Janet will increase her score on the QAB to an overall score of at least 8.9/10.00 (consistent with no aphasia). Comment: Increase frequency of cognitive-linguistic therapy with UNDERWRITING SPECIALIST to 2x/week. Electronically Signed by: LOGAN Parish 07/09/24 9205 If you are in agreement with this Plan of Care, please return a signed and dated copy. I have reviewed this Plan of Care and certify that the skilled therapy services above are required to meet the patient?s needs. Physician Signature Date Printed Name and Credentials Clinical Instructor Signature Printed Name and Credentials
--- NOTE | 2024-07-18 13:14 | ST.OPTN ---
Visit Care Team Role Provider Type HAMZAH Navas Family Provider Advanced Underwriting Support Specialist Address: Nabor Starkey MD Attending Provider Physician Primary Care Provider Referring Provider Address: [address] [place] [address], [id number] SHIPPING AND RECEIVING ASSOCIATE Treatment Note SHIPPING AND RECEIVING ASSOCIATE Treatment Note Start: 06/25/24 13:43 Freq: Status: Active Protocol: Document 07/18/24 13:07 CG (Rec: 07/18/24 13:14 CG [id number]) Speech Pathology Treatment Note Session Time Visit Start Time 12:15 Visit Stop Time 13:07 Total Visit Minutes 52 Visit Information Visit Number 4 Plan of Care Dates 06/18/24-09/18/24 Setting Treatment Setting Outpatient Care Next Note Type Next Note Type Treatment Note General Information Patient History Janet carlton is a 79 year old female presenting to this clinic for an outpatient evaluation of speech-language and cognition secondary to a recent stroke which resulted in expressive aphasia. She was admitted to ED at this hospital on 05/09/24 with MRI indicating acute small focal infarct in the posterior medial left temporal lobe. 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 She was seen by another SHIPPING AND RECEIVING ASSOCIATE at this facility ([facility], [facility] ) on 05/10/24 for an assessment of cognition and language before discharging home on 05/11 with caregiver assistance 5 days/week. At the time of her inpatient cognitive- language assessment, the [facility] Mental Status examination (SLUMS) and the Quick Aphasia Batetry (QAB were administered). On the SLUMS (which measures various domains of cognition including attention, memory, and orientation), Janet scored a 7 out of 30, which is indicative of moderate-severe impairment in cognition. On the QAB, Janet scored an overall score of 7.40-10.00, indicative of moderate impairment in language skills. It was recommended that Janet discharge home with her caregiver, Milady, who manages IADLs and assists with most ADLs during the week. Summer reported that the pt's family member Don also helps with Janet's IADLs. Since discharge from the hospital, pt and caregiver state that Janet's language has improved, but Janet also states that she is more aware of her speech/language errors, which has caused increased frustration. She also is having some remaining difficulties with memory/ cognition. 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 Vikas was seen by [facility] speech therapy for one visit, but has not received any other speech therapy since her stroke. She is also receiving physical therapy at this facility twice per week. Subjective Identification Type Name Chief Complaint(s) Language,Cognitive Objective Short Term Goals 1. Janet will complete confrontation naming tasks for 2 to 3-syllable words with 90 % accuracy given orthographic cues. 2. Janet will produce a minimum of 4 different features when presented with a target word using semantic feature analysis (SFA), given minimal verbal prompts, with 75% accuracy. 3. Janet and caregivers/family will benefit from education in home/carryover activities for aphasia rehabilitation. 4. Janet will complete a re- assessment of cognition to further guide POC r/t cognition/memory. Mcfp Goals Janet will complete confrontation naming tasks for 2 to 3-syllable words with 80 % accuracy without the need for SHIPPING AND RECEIVING ASSOCIATE cues. Janet will increase her score on the QAB to an overall score of at least 8.9/10.00 ( consistent with no aphasia). Treatment Activities Discussed compliance with home practice (flashcards). Completed Memory Needs Checklist from [facility] Speech Therapy Functional Treatment for Mild Cognitive Impairment book. Discussed possible modifications to increase compliance with checking daily calendar. Assessment Patient Response to Treatment Good Rehab Potential Good Impairments Identified Expressive language,Receptive language,Cognitive communication Progress Towards Goals Good Progress Assessment of Overall Progress Unchanged Assessment of Improvement Pt expressed continued frustration with memory, though pt's caregiver states pt recalled all target names this morning. Pt is not yet using flashcards to practice names. Pt and caregiver expressed understanding of internal vs external memory strategies and the need for external strategies to assist the pt with memory. On Memory Needs Checklist, biggest needs identified included remembering names, remembering conversations, remembering what to do, keeping track of calendar events, and remembering if you've done something or not. SHIPPING AND RECEIVING ASSOCIATE, caregiver, and pt worked to troubleshoot calendar events challenge. Pt does have a daily calendar but does not check it. Pt does open the refrigerator each morning to get food/drink, so SHIPPING AND RECEIVING ASSOCIATE suggested large bright sign on refrigerator door that says, Check Your Calendar. Provided weekly tracker for caregiver to track whether or not Janet checks her calendar each morning. Made matching sign that says Janet's Calendar on same color paper for visual association. Reviewed with Patient Home Exercise Program Patient/Caregiver Understanding Good Plan Amount of Therapy Recommended 2-3 Months Frequency of Treatment Twice a Week Length of Session 30 Minutes Therapeutic Contents Auditory Comprehension, Cognitive-Linguistic Training, Expressive Language Training Provided Patient/Caregiver Instruction Plan of Care Therapy Recommendations Increase Frequency of Rehabilitation
--- NOTE | 2024-07-23 13:49 | ST.OPTN ---
Visit Care Team Role Provider Type HAMZAH Navas Family Provider [employer] Department Head Address: Nabor Starkey MD Attending Provider Physician Primary Care Provider Referring Provider Address: [address] [place] [address], [id number] DENTAL MECHANIC Treatment Note DENTAL MECHANIC Treatment Note Start: 06/25/24 13:43 Freq: Status: Active Protocol: Document 07/23/24 13:43 CG (Rec: 07/23/24 13:49 CG [id number]) Speech Pathology Treatment Note Session Time Visit Start Time 13:00 Visit Stop Time 13:40 Total Visit Minutes 40 Visit Information Visit Number 5 Plan of Care Dates 06/18/24-09/18/24 Setting Treatment Setting Outpatient Care Next Note Type Next Note Type Treatment Note General Information Patient History Janet carlton is a 79 year old female presenting to this clinic for an outpatient evaluation of speech-language and cognition secondary to a recent stroke which resulted in expressive aphasia. She was admitted to ED at this hospital on 05/09/24 with MRI indicating acute small focal infarct in the posterior medial left temporal lobe. 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 She was seen by another DENTAL MECHANIC at this facility (Martha Luns[facility], [facility] ) on 05/10/24 for an assessment of cognition and language before discharging home on 05/11 with caregiver assistance 5 days/week. At the time of her inpatient cognitive- language assessment, the [facility] Mental Status examination (SLUMS) and the Quick Aphasia Batetry (QAB were administered). On the SLUMS (which measures various domains of cognition including attention, memory, and orientation), Janet scored a 7 out of 30, which is indicative of moderate-severe impairment in cognition. On the QAB, Janet scored an overall score of 7.40-10.00, indicative of moderate impairment in language skills. It was recommended that Janet discharge home with her caregiver, Milady, who manages IADLs and assists with most ADLs during the week. Summer reported that the pt's family member Don also helps with Janet's IADLs. Since discharge from the hospital, pt and caregiver state that Janet's language has improved, but Janet also states that she is more aware of her speech/language errors, which has caused increased frustration. She also is having some remaining difficulties with memory/ cognition. 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 Vikas was seen by [facility] speech therapy for one visit, but has not received any other speech therapy since her stroke. She is also receiving physical therapy at this facility twice per week. Subjective Identification Type Name Chief Complaint(s) Language,Cognitive Objective Short Term Goals 1. Janet will complete confrontation naming tasks for 2 to 3-syllable words with 90 % accuracy given orthographic cues. 2. Janet will produce a minimum of 4 different features when presented with a target word using semantic feature analysis (SFA), given minimal verbal prompts, with 75% accuracy. 3. Janet and caregivers/family will benefit from education in home/carryover activities for aphasia rehabilitation. 4. Janet will complete a re- assessment of cognition to further guide POC r/t cognition/memory. Correction Goals Janet will complete confrontation naming tasks for 2 to 3-syllable words with 80 % accuracy without the need for DENTAL MECHANIC cues. Janet will increase her score on the QAB to an overall score of at least 8.9/10.00 ( consistent with no aphasia). Treatment Activities Discussed compliance with home practice (flashcards) and use of/checking calendar. Discussed additional needs for memory r/t remembering conversations. Developed a Conversation Log with color coded cue to place near telephone headset. Assessment Patient Response to Treatment Good Rehab Potential Good Impairments Identified Expressive language,Receptive language,Cognitive communication Progress Towards Goals Good Progress Assessment of Overall Progress Unchanged Assessment of Improvement Pt expressed increased confidence with memory over the past week since beginning to use/check calendar daily. Caregiver stated pt was compliant with checking calendar every day this past week. Pt was able to recall both of her scheduled appointments today. Discussed need to recall conversations, particularly phone conversations. DENTAL MECHANIC worked with caregiver and pt to develop custom conversation log and color-matching cue card to tape next to phone handset. DENTAL MECHANIC to follow up re implementation next session. Reviewed with Patient Home Exercise Program Patient/Caregiver Understanding Good Plan Amount of Therapy Recommended 2-3 Months Frequency of Treatment Twice a Week Length of Session 30 Minutes Therapeutic Contents Auditory Comprehension, Cognitive-Linguistic Training, Expressive Language Training Provided Patient/Caregiver Instruction Plan of Care Therapy Recommendations Increase Frequency of Rehabilitation
--- NOTE | 2024-07-25 14:20 | ST.OPTN ---
Visit Care Team Role Provider Type HAMZAH Navas Family Provider Advanced Community Coordinator Address: Nabor Starkey MD Attending Provider Physician Primary Care Provider Referring Provider Address: [address] [place] [address], [id number] MANAGER PMO Treatment Note MANAGER PMO Treatment Note Start: 06/25/24 13:43 Freq: Status: Active Protocol: Document 07/25/24 14:14 CG (Rec: 07/25/24 14:19 CG [id number]) Speech Pathology Treatment Note Session Time Visit Start Time 11:35 Visit Stop Time 12:10 Total Visit Minutes 35 Visit Information Visit Number 6 Plan of Care Dates 06/18/24-09/18/24 Setting Treatment Setting Outpatient Care Next Note Type Next Note Type Treatment Note General Information Patient History Janet carlton is a 79 year old female presenting to this clinic for an outpatient evaluation of speech-language and cognition secondary to a recent stroke which resulted in expressive aphasia. She was admitted to ED at this hospital on 05/09/24 with MRI indicating acute small focal infarct in the posterior medial left temporal lobe. 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 She was seen by another MANAGER PMO at this facility (Martha Lunsford, [facility] ) on 05/10/24 for an assessment of cognition and language before discharging home on 05/11 with caregiver assistance 5 days/week. At the time of her inpatient cognitive- language assessment, the [facility] Mental Status examination (SLUMS) and the Quick Aphasia Batetry (QAB were administered). On the SLUMS (which measures various domains of cognition including attention, memory, and orientation), Janet scored a 7 out of 30, which is indicative of moderate-severe impairment in cognition. On the QAB, Janet scored an overall score of 7.40-10.00, indicative of moderate impairment in language skills. It was recommended that Janet discharge home with her caregiver, Milady, who manages IADLs and assists with most ADLs during the week. Summer reported that the pt's family member Don also helps with Janet's IADLs. Since discharge from the hospital, pt and caregiver state that Janet's language has improved, but Janet also states that she is more aware of her speech/language errors, which has caused increased frustration. She also is having some remaining difficulties with memory/ cognition. 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 Vikas was seen by [facility] speech therapy for one visit, but has not received any other speech therapy since her stroke. She is also receiving physical therapy at this facility twice per week. Subjective Identification Type Name Chief Complaint(s) Language,Cognitive Objective Short Term Goals 1. Janet will complete confrontation naming tasks for 2 to 3-syllable words with 90 % accuracy given orthographic cues. 2. Janet will produce a minimum of 4 different features when presented with a target word using semantic feature analysis (SFA), given minimal verbal prompts, with 75% accuracy. 3. Janet and caregivers/family will benefit from education in home/carryover activities for aphasia rehabilitation. 4. Janet will complete a re- assessment of cognition to further guide POC r/t cognition/memory. Mcfp Goals Janet will complete confrontation naming tasks for 2 to 3-syllable words with 80 % accuracy without the need for MANAGER PMO cues. Janet will increase her score on the QAB to an overall score of at least 8.9/10.00 ( consistent with no aphasia). Treatment Activities Discussed compliance with home practice (use of/checking calendar). Discussed use of conversation log as developed last session. Problem solving for pt frustration with calendar and being confused by lack of events on weekends. Assessment Patient Response to Treatment Good Rehab Potential Good Impairments Identified Expressive language,Receptive language,Cognitive communication Progress Towards Goals Good Progress Assessment of Overall Progress Unchanged Assessment of Improvement Pt expressed increased confidence with memory over the past week since beginning to use/check calendar daily. Caregiver stated pt was compliant with checking calendar every day this past week, but requires cues from caregiver. Pt does become confused about where her calendar is located and remembering that her caregiver updates this calendar with all events. Pt became fixated on what to do when cargiver is not there. Reminded pt that she can still check her calendar as it is filled out months in advance. Eventually , caregiver realized that pt is likely frustrated by her calendar being empty on the weekends. Discussed possible safe, low cognitive-load activities to list on weekend that pt can complete independently (e.g. peel potatoes, sort makeup, etc). Additionally, discussed setting up a reliable social routine for weekends (e.g. friend comes over for coffee every Tuesday at 3pm). Pt also expressed frustration with not being able to access contact list on her phone. Plan is to utilize task analysis to practice navigating to contacts on phone. Additionally, plan to use spaced retrieval to reinforce use and location of dedicated pt calendar. Reviewed with Patient Home Exercise Program Patient/Caregiver Understanding Good Plan Amount of Therapy Recommended 2-3 Months Frequency of Treatment Twice a Week Length of Session 30 Minutes Therapeutic Contents Auditory Comprehension, Cognitive-Linguistic Training, Expressive Language Training Provided Patient/Caregiver Instruction Plan of Care Therapy Recommendations Increase Frequency of Rehabilitation
--- NOTE | 2024-07-30 13:50 | ST.OPTN ---
Visit Care Team Role Provider Type HAMZAH Navas Family Provider Advanced Golf Course Mechanic Address: Nabor Starkey MD Attending Provider Physician Primary Care Provider Referring Provider Address: [address] [place] [address], [id number] VEGETABLE PREPARER Treatment Note VEGETABLE PREPARER Treatment Note Start: 06/25/24 13:43 Freq: Status: Active Protocol: Document 07/30/24 13:46 CG (Rec: 07/30/24 13:50 CG [id number]) Speech Pathology Treatment Note Session Time Visit Start Time 13:00 Visit Stop Time 13:45 Total Visit Minutes 45 Visit Information Visit Number 7 Plan of Care Dates 06/18/24-09/18/24 Setting Treatment Setting Outpatient Care Next Note Type Next Note Type Treatment Note General Information Patient History Janet carlton is a 79 year old female presenting to this clinic for an outpatient evaluation of speech-language and cognition secondary to a recent stroke which resulted in expressive aphasia. She was admitted to ED at this hospital on 05/09/24 with MRI indicating acute small focal infarct in the posterior medial left temporal lobe. 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 She was seen by another VEGETABLE PREPARER at this facility (Martha Lunsford, [facility] ) on 05/10/24 for an assessment of cognition and language before discharging home on 05/11 with caregiver assistance 5 days/week. At the time of her inpatient cognitive- language assessment, the [facility] Mental Status examination (SLUMS) and the Quick Aphasia Batetry (QAB were administered). On the SLUMS (which measures various domains of cognition including attention, memory, and orientation), Janet scored a 7 out of 30, which is indicative of moderate-severe impairment in cognition. On the QAB, Janet scored an overall score of 7.40-10.00, indicative of moderate impairment in language skills. It was recommended that Janet discharge home with her caregiver, Milady, who manages IADLs and assists with most ADLs during the week. Summer reported that the pt's family member Don also helps with Janet's IADLs. Since discharge from the hospital, pt and caregiver state that Janet's language has improved, but Janet also states that she is more aware of her speech/language errors, which has caused increased frustration. She also is having some remaining difficulties with memory/ cognition. 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 Vikas was seen by [facility] speech therapy for one visit, but has not received any other speech therapy since her stroke. She is also receiving physical therapy at this facility twice per week. Subjective Identification Type Name Chief Complaint(s) Language,Cognitive Objective Short Term Goals 1. Janet will complete confrontation naming tasks for 2 to 3-syllable words with 90 % accuracy given orthographic cues. 2. Janet will produce a minimum of 4 different features when presented with a target word using semantic feature analysis (SFA), given minimal verbal prompts, with 75% accuracy. 3. Janet and caregivers/family will benefit from education in home/carryover activities for aphasia rehabilitation. 4. Janet will complete a re- assessment of cognition to further guide POC r/t cognition/memory. Skilled Nursing Goals Janet will complete confrontation naming tasks for 2 to 3-syllable words with 80 % accuracy without the need for VEGETABLE PREPARER cues. Janet will increase her score on the QAB to an overall score of at least 8.9/10.00 ( consistent with no aphasia). Treatment Activities Reviewed home practice; discussed possible weekend activities at an appropriate cognitive level for pt to complete independently. Spaced retrieval training of phrase, If I need to know what's on the calendar, I'll check by the kitchen phone. Assessment Patient Response to Treatment Good Rehab Potential Good Impairments Identified Expressive language,Receptive language,Cognitive communication Progress Towards Goals Good Progress Assessment of Overall Progress Unchanged Assessment of Improvement Caregiver stated pt did not check calendar every day since last sessionh, but has been improving with calendar awareness overall and recalled her appointments today. During spaced retrieval training, pt recalled trained sentence at 15s, 1m, 2m, 5m, and 10m across all trials. Will re-assess next session for recall. Pt and caregiver state they recently took pt to [employer] and employee helped put all of pt's apps on one central page, which has reduced pt confusion with phone use. Plan to return to word-finding activities next session. Reviewed with Patient Home Exercise Program Patient/Caregiver Understanding Good Plan Amount of Therapy Recommended 2-3 Months Frequency of Treatment Twice a Week Length of Session 30 Minutes Therapeutic Contents Auditory Comprehension, Cognitive-Linguistic Training, Expressive Language Training Provided Patient/Caregiver Instruction Plan of Care
--- NOTE | 2024-08-06 13:45 | ST.OPTN ---
Visit Care Team Role Provider Type HAMZAH Navas Family Provider Advanced Underwater Hunter Address: Nabor Starkey MD Attending Provider Physician Primary Care Provider Referring Provider Address: [address] [place] [address], [id number] SURGICAL CLINICAL REVIEWER Treatment Note SURGICAL CLINICAL REVIEWER Treatment Note Start: 06/25/24 13:43 Freq: Status: Active Protocol: Document 08/06/24 13:39 CG (Rec: 08/06/24 13:45 CG [id number]) Speech Pathology Treatment Note Session Time Visit Start Time 13:00 Visit Stop Time 13:35 Total Visit Minutes 35 Visit Information Visit Number 8 Plan of Care Dates 06/18/24-09/18/24 Setting Treatment Setting Outpatient Care Next Note Type Next Note Type Treatment Note General Information Patient History Janet carlton is a 79 year old female presenting to this clinic for an outpatient evaluation of speech-language and cognition secondary to a recent stroke which resulted in expressive aphasia. She was admitted to ED at this hospital on 05/09/24 with MRI indicating acute small focal infarct in the posterior medial left temporal lobe. 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 She was seen by another SURGICAL CLINICAL REVIEWER at this facility (Martha Lunsford, [facility] ) on 05/10/24 for an assessment of cognition and language before discharging home on 05/11 with caregiver assistance 5 days/week. At the time of her inpatient cognitive- language assessment, the [facility] Mental Status examination (SLUMS) and the Quick Aphasia Batetry (QAB were administered). On the SLUMS (which measures various domains of cognition including attention, memory, and orientation), Janet scored a 7 out of 30, which is indicative of moderate-severe impairment in cognition. On the QAB, Janet scored an overall score of 7.40-10.00, indicative of moderate impairment in language skills. It was recommended that Janet discharge home with her caregiver, Milady, who manages IADLs and assists with most ADLs during the week. Summer reported that the pt's family member Don also helps with Janet's IADLs. Since discharge from the hospital, pt and caregiver state that Janet's language has improved, but Janet also states that she is more aware of her speech/language errors, which has caused increased frustration. She also is having some remaining difficulties with memory/ cognition. 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 Vikas was seen by [facility] speech therapy for one visit, but has not received any other speech therapy since her stroke. She is also receiving physical therapy at this facility twice per week. Subjective Identification Type Name Chief Complaint(s) Language,Cognitive Objective Short Term Goals 1. Janet will complete confrontation naming tasks for 2 to 3-syllable words with 90 % accuracy given orthographic cues. 2. Janet will produce a minimum of 4 different features when presented with a target word using semantic feature analysis (SFA), given minimal verbal prompts, with 75% accuracy. 3. Janet and caregivers/family will benefit from education in home/carryover activities for aphasia rehabilitation. 4. Janet will complete a re- assessment of cognition to further guide POC r/t cognition/memory. Group Home Goals Janet will complete confrontation naming tasks for 2 to 3-syllable words with 80 % accuracy without the need for SURGICAL CLINICAL REVIEWER cues. Janet will increase her score on the QAB to an overall score of at least 8.9/10.00 ( consistent with no aphasia). Treatment Activities Reviewed home practice; discussed progress with checking calendar and overall frustration with memory deficits. Review of spaced retrieval phrase trained last session. Confrontation naming practice. Assessment Patient Response to Treatment Good Rehab Potential Good Impairments Identified Expressive language,Receptive language,Cognitive communication Progress Towards Goals Good Progress Assessment of Overall Progress Improving Assessment of Improvement Caregiver stated pt has been checking her calendar regularly, and that pt states it has become an automatic habit. Pt recalled trained spaced retrieval phrase given min verbal cues from SURGICAL CLINICAL REVIEWER/ During confrontation naming, pt was able to name words of 3 or more syllables with 94% accuracy independently, increasing to 100% given first letter cue. Pt and caregiver state pt continues to have the most difficulty with recall of names, but feel she has been improving in word-finding , conversation comprehension, and recalling daily schedule. Reviewed with Patient Home Exercise Program Patient/Caregiver Understanding Good Plan Amount of Therapy Recommended 2-3 Months Frequency of Treatment Twice a Week Length of Session 30 Minutes Therapeutic Contents Auditory Comprehension, Cognitive-Linguistic Training, Expressive Language Training Provided Patient/Caregiver Instruction Plan of Care
--- NOTE | 2024-08-07 15:20 | ST.OPTN ---
Visit Care Team Role Provider Type HAMZAH Navas Family Provider Advanced Cadmium Plater Address: Nabor Starkey MD Attending Provider Physician Primary Care Provider Referring Provider Address: [address] [place] [address], [id number] PRESS TENDER STAR SIGNAL Treatment Note PRESS TENDER STAR SIGNAL Treatment Note Start: 06/25/24 13:43 Freq: Status: Active Protocol: Document 08/07/24 15:15 CG (Rec: 08/07/24 15:20 CG [id number]) Speech Pathology Treatment Note Session Time Visit Start Time 12:15 Visit Stop Time 12:50 Total Visit Minutes 35 Visit Information Visit Number 9 Plan of Care Dates 06/18/24-09/18/24 Setting Treatment Setting Outpatient Care Next Note Type Next Note Type Treatment Note General Information Patient History Janet carlton is a 79 year old female presenting to this clinic for an outpatient evaluation of speech-language and cognition secondary to a recent stroke which resulted in expressive aphasia. She was admitted to ED at this hospital on 05/09/24 with MRI indicating acute small focal infarct in the posterior medial left temporal lobe. 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 She was seen by another PRESS TENDER STAR SIGNAL at this facility ([facility], [facility] ) on 05/10/24 for an assessment of cognition and language before discharging home on 05/11 with caregiver assistance 5 days/week. At the time of her inpatient cognitive- language assessment, the [facility] Mental Status examination (SLUMS) and the Quick Aphasia Batetry (QAB were administered). On the SLUMS (which measures various domains of cognition including attention, memory, and orientation), Janet scored a 7 out of 30, which is indicative of moderate-severe impairment in cognition. On the QAB, Janet scored an overall score of 7.40-10.00, indicative of moderate impairment in language skills. It was recommended that Janet discharge home with her caregiver, Milady, who manages IADLs and assists with most ADLs during the week. Summer reported that the pt's family member Don also helps with Janet's IADLs. Since discharge from the hospital, pt and caregiver state that Janet's language has improved, but Janet also states that she is more aware of her speech/language errors, which has caused increased frustration. She also is having some remaining difficulties with memory/ cognition. 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 Vikas was seen by [facility] speech therapy for one visit, but has not received any other speech therapy since her stroke. She is also receiving physical therapy at this facility twice per week. Subjective Identification Type Name Chief Complaint(s) Language,Cognitive Objective Short Term Goals 1. Janet will complete confrontation naming tasks for 2 to 3-syllable words with 90 % accuracy given orthographic cues. 2. Janet will produce a minimum of 4 different features when presented with a target word using semantic feature analysis (SFA), given minimal verbal prompts, with 75% accuracy. 3. Janet and caregivers/family will benefit from education in home/carryover activities for aphasia rehabilitation. 4. Janet will complete a re- assessment of cognition to further guide POC r/t cognition/memory. Shelter Goals Janet will complete confrontation naming tasks for 2 to 3-syllable words with 80 % accuracy without the need for PRESS TENDER STAR SIGNAL cues. Janet will increase her score on the QAB to an overall score of at least 8.9/10.00 ( consistent with no aphasia). Treatment Activities Re-administered QAB for progress monitoring. Review of spaced retrieval phrase trained last session. Recall practice/drill for names of people and pets, with graded cueing for retrieval. Assessment Patient Response to Treatment Good Rehab Potential Good Impairments Identified Expressive language,Receptive language,Cognitive communication Progress Towards Goals Good Progress Assessment of Overall Progress Unchanged Assessment of Improvement Pt recalled trained spaced retrieval phrase given min verbal cues from PRESS TENDER STAR SIGNAL, and caregiver confirms she consistently recalls where to find her dedicated calendar. Re-adminstration of the QAB resulted in scores as follows: Word [id number] Sentence comprehension7.08 Word finding8.50 Grammatical construction9.75 Speech motor [id number] Repetition9.17 [id number] QAB overall9.16 Pt's QAB overall score now falls into the no aphasia range, meaning she has met this terminal manager goal. Pt and caregiver state pt continues to have the most difficulty with recall of names, but feel she has been improving in word-finding, conversation comprehension, and recalling daily schedule. During recall practice for recall of people/pet names, pt was 50% accurate independently today. Reviewed with Patient Home Exercise Program Patient/Caregiver Understanding Good Plan Amount of Therapy Recommended 2-3 Months Frequency of Treatment Twice a Week Length of Session 30 Minutes Therapeutic Contents Auditory Comprehension, Cognitive-Linguistic Training, Expressive Language Training Provided Patient/Caregiver Instruction Plan of Care
--- NOTE | 2024-08-13 16:16 | ST.OPTN ---
Visit Care Team Role Provider Type HAMZAH Navas Family Provider Advanced Certified Prosthetist Vice President Address: Nabor Starkey MD Attending Provider Physician Primary Care Provider Referring Provider Address: [address] [place] [address], [id number] MEDIA MARKETING SPECIALIST Treatment Note MEDIA MARKETING SPECIALIST Treatment Note Start: 06/25/24 13:43 Freq: Status: Active Protocol: Document 08/13/24 15:14 CG (Rec: 08/13/24 15:16 CG [id number]) Speech Pathology Treatment Note Session Time Visit Start Time 13:00 Visit Stop Time 13:40 Total Visit Minutes 40 Visit Information Visit Number 10 Plan of Care Dates 06/18/24-09/18/24 Setting Treatment Setting Outpatient Care Next Note Type Next Note Type Treatment Note General Information Patient History Janet carlton is a 79 year old female presenting to this clinic for an outpatient evaluation of speech-language and cognition secondary to a recent stroke which resulted in expressive aphasia. She was admitted to ED at this hospital on 05/09/24 with MRI indicating acute small focal infarct in the posterior medial left temporal lobe. 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 She was seen by another MEDIA MARKETING SPECIALIST at this facility ([facility]uns[facility], [facility] ) on 05/10/24 for an assessment of cognition and language before discharging home on 05/11 with caregiver assistance 5 days/week. At the time of her inpatient cognitive- language assessment, the [facility] Mental Status examination (SLUMS) and the Quick Aphasia Batetry (QAB were administered). On the SLUMS (which measures various domains of cognition including attention, memory, and orientation), Janet scored a 7 out of 30, which is indicative of moderate-severe impairment in cognition. On the QAB, Janet scored an overall score of 7.40-10.00, indicative of moderate impairment in language skills. It was recommended that Janet discharge home with her caregiver, Milady, who manages IADLs and assists with most ADLs during the week. Summer reported that the pt's family member Don also helps with Janet's IADLs. Since discharge from the hospital, pt and caregiver state that Janet's language has improved, but Janet also states that she is more aware of her speech/language errors, which has caused increased frustration. She also is having some remaining difficulties with memory/ cognition. 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 Vikas was seen by [facility] speech therapy for one visit, but has not received any other speech therapy since her stroke. She is also receiving physical therapy at this facility twice per week. Subjective Identification Type Name Chief Complaint(s) Language,Cognitive Objective Short Term Goals 1. Janet will complete confrontation naming tasks for 2 to 3-syllable words with 90 % accuracy given orthographic cues. 2. Janet will produce a minimum of 4 different features when presented with a target word using semantic feature analysis (SFA), given minimal verbal prompts, with 75% accuracy. 3. Janet and caregivers/family will benefit from education in home/carryover activities for aphasia rehabilitation. 4. Janet will complete a re- assessment of cognition to further guide POC r/t cognition/memory. Alf Goals Janet will complete confrontation naming tasks for 2 to 3-syllable words with 80 % accuracy without the need for MEDIA MARKETING SPECIALIST cues. Janet will increase her score on the QAB to an overall score of at least 8.9/10.00 ( consistent with no aphasia). Treatment Activities Review of spaced retrieval phrase trained in previous session. Errorless learning of pet names followed by recall activity for pet names. Assessment Patient Response to Treatment Good Rehab Potential Good Impairments Identified Expressive language,Receptive language,Cognitive communication Progress Towards Goals Good Progress Assessment of Overall Progress Unchanged Assessment of Improvement Pt recalled trained spaced retrieval phrase at 1, 2, and 5 minute intervals accurately this session after initial review with MEDIA MARKETING SPECIALIST of target phrase. Pt and caregiver state pt is having a harder day with memory today, but that memory continues to fluctuate day to day. Discussed sleep patterns with MEDIA MARKETING SPECIALIST provided pt counseling on importance of sleep in brain health and clearing metabolic waste in the brain to decrease risk of dementia. Pt stated understanding but also admitted that she is stubborn , so unclear if pt will heed recommendations re increased sleep. Following errorless learning trials with pictures of pt pets, pt was able to recall nbames of pets with 90% accuracy independently today, which is a significant increase from last session. Plan to continue with errorless learning followed by recall. Encouraged pt to bring in pictures of family members to use as stimuli for errorless learning/recall activity. Reviewed with Patient Home Exercise Program Patient/Caregiver Understanding Good Plan Amount of Therapy Recommended 2-3 Months Frequency of Treatment Twice a Week Length of Session 30 Minutes Therapeutic Contents Auditory Comprehension, Cognitive-Linguistic Training, Expressive Language Training Provided Patient/Caregiver Instruction Plan of Care
--- NOTE | 2024-08-14 11:37 | ST.PROG ---
Visit Care Team Role Provider Type HAMZAH Navas Family Provider Advanced Social Media Content Manager Address: Nabor Starkey MD Attending Provider Physician Primary Care Provider Referring Provider Address: [address] [place] [address], [id number] DOOR CLAMPER Progress Note DOOR CLAMPER Progress Note Start: 06/25/24 13:43 Freq: Status: Active Protocol: Document 08/14/24 11:13 CG (Rec: 08/14/24 11:22 CG [id number]) Speech Pathology Treatment Note Visit Information Visit Number 10 Plan of Care Dates 08/14/24-10/15/23 Setting Treatment Setting Outpatient Care Visit Type Note Type Progress Note Next Note Type Next Note Type Treatment Note General Information Patient History Janet carlton is a 79 year old female who presented to this clinic for an outpatient evaluation of speech-language and cognition secondary to a recent stroke which resulted in expressive aphasia. She was admitted to ED at this hospital on 05/09/24 with MRI indicating acute small focal infarct in the posterior medial left temporal lobe. 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 She was seen by another DOOR CLAMPER at this facility (Martha Lunsford, LOGAN ) on 05/10/24 for an assessment of cognition and language before discharging home on 05/11 with caregiver assistance 5 days/week. At the time of her inpatient cognitive- language assessment, the [facility] Mental Status examination (SLUMS) and the Quick Aphasia Batetry (QAB were administered). On the SLUMS (which measures various domains of cognition including attention, memory, and orientation), Janet scored a 7 out of 30, which is indicative of moderate-severe impairment in cognition. On the QAB, Janet scored an overall score of 7.40-10.00, indicative of moderate impairment in language skills. It was recommended that Janet discharge home with her caregiver, Milady, who manages IADLs and assists with most ADLs during the week. Milady reported that the pt's family member Don also helps with Janet's IADLs. Since discharge from the hospital, pt and caregiver state that Janet's language has improved, but Janet also states that she is more aware of her speech/language errors, which has caused increased frustration. She also is having some remaining difficulties with memory/ cognition. 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 Vikas was seen by [facility] speech therapy for one visit, but has not received any other speech therapy since her stroke. She is also receiving physical therapy at this facility twice per week. _ Since initial evaluation, Janet has been attending cognitive linguistic therapy with DOOR CLAMPER at this clinic for 10 visits and has made good progress toward her short term and long-term goals. Throughout the course of therapy, Janet's specific cognitive/memory needs have become more clear and treatment has focused on developing compensatory strategies to remediate memory concerns, including the use of external aids and the use of spaced retrieval training and errorless learning to memorize needed information such as names of people/pets and locations of important items. Subjective Identification Type Name Chief Complaint(s) Language,Cognitive Objective Short Term Goals 1. Janet will complete recall tasks of names of family/pets with 80% accuracy or more following an errorless learning session to review target names. 2. Janet will accurately state location of dedicated calendar (based on trained spaced retrieval phrase) in 80% of probes independently. 3. Janet will benefit from education re lifestyle factors for brain and cognitive health, including sleep, nutrition, socialization, exercise, etc. DISCONTINUED/COMPLETED GOALS: 1. Janet will complete confrontation naming tasks for 2 to 3-syllable words with 90 % accuracy given orthographic cues. (Goal met) 2. Janet will produce a minimum of 4 different features when presented with a target word using semantic feature analysis (SFA), given minimal verbal prompts, with 75% accuracy. (Goal met) 3. Janet and caregivers/family will benefit from education in home/carryover activities for aphasia rehabilitation. (Goal met) 4. Janet will complete a re- assessment of cognition to further guide POC r/t cognition/memory. (Discontinue ) Certified Technician Goals 1. Janet will accurately recall names of family/pets with 80% accuracy independently given random probes (not preceded by errorless learning). 2. Janet will accurately recall scheduled daily activities (e .g. appointments) independently in 80% of probes . DISCONTINUED/COMPLETED GOALS: Janet will complete confrontation naming tasks for 2 to 3-syllable words with 80 % accuracy without the need for DOOR CLAMPER cues. (Goal met) Janet will increase her score on the QAB to an overall score of at least 8.9/10.00 ( consistent with no aphasia). ( Goal met) Treatment Activities Course of treatment initiated with confrontation naming practice with grading cueing in order to rehabilitate word retrieval skills. Further treatment targeting aphasia continued with Semantic Feature Analysis tasks given graded cueing from DOOR CLAMPER to facilitate increasing independence with task. Treatment for cognition/memory including development of custom external aids based on pt's needs (color-coded calendar, reminder sign to check calendar, color-coded phone call log). Continued with training in the use of these aids with frequent assessment of compliance based on pt and caregiver report. Utilized spaced retrieval training to train learned phrase to state where to find dedicated pt calendar in the house. Additionally, utilized errorless learning for accurate encoding of linguistic targets (pet names) followed by retrieval practice with DOOR CLAMPER feedback for accuracy and graded cueing to remediate errors. Assessment Patient Response to Treatment Good Rehab Potential Good Impairments Identified Expressive language,Receptive language,Cognitive communication Progress Towards Goals Good Progress Assessment of Overall Progress Improving Assessment of Improvement *SHORT TERM GOALS* STG 1: Janet will complete confrontation naming tasks for 2 to 3-syllable words with 90 % accuracy given orthographic cues. -Goal met; discontinue. Janet is able to complete confrontation naming of 2 to 3 -syllable words with 94% accuracy independently. STG 2: Janet will produce a minimum of 4 different features when presented with a target word using semantic feature analysis (SFA), given minimal verbal prompts, with 75% accuracy. -Goal met; discontinue. Janet is able to describe at least 4 different features with 100% accuracy given minimal verbal cues from DOOR CLAMPER. STG 3: Janet and caregivers/ family will benefit from education in home/carryover activities for aphasia rehabilitation. -Goal met; discontinue. Pt and caregiver are able to recall strategies including describing/circumlocution as well as come back later to reduce frustration. STG 4: Janet will complete a re -assessment of cognition to further guide POC r/t cognition/memory. -Discontinue goal. Informal dynamic assessment throughout treatment has revealed necessary treatment targets r/ t cognition/memory. New goals written related to treatment targets. *SATELLITE INSTRUCTION FACILITATOR GOALS* LTG 1:Janet will complete confrontation naming tasks for 2 to 3-syllable words with 80 % accuracy without the need for DOOR CLAMPER cues. -Goal met; discontinue. Pt is able to complete confrontation naming of 2 to 3 -syllable words with 94% accuracy independently. Janet will increase her score on the QAB to an overall score of at least 8.9/10.00 ( consistent with no aphasia). -Goal met; discontinue. Pt's QAB score has increased to 9. 16. Overall, pt has met existing goals, but more needs related to memory/cognition have become apparent and tx is shifting towards addressing these goals. New goals are written in Goals section. Reviewed with Patient Progress Being Made,Home Exercise Program Patient/Caregiver Understanding Good Plan Amount of Therapy Recommended 2-3 Months Frequency of Treatment Twice a Week Length of Session 30 Minutes Therapeutic Contents Auditory Comprehension, Cognitive-Linguistic Training, Expressive Language Training Provided Patient/Caregiver Instruction Plan of Care Visit Care Team Role Provider Type HAMZAH Navas Family Provider Advanced Social Media Content Manager Specialty: Family Practice Address: Email: [email or web address] Nabor Starkey MD Attending Provider Physician Primary Care Provider Referring Provider Specialty: [facility] Address: [address] [place] [address], [id number] Email: [email or web address]
--- NOTE | 2024-08-14 11:39 | ST.OPPOC ---
Physical, Occupational & Speech Therapy At [facility] Visit Care Team Role Provider Type HAMZAH Navas Family Provider Advanced Electrician Refinery Address: Nabor Starkey MD Attending Provider Physician Primary Care Provider Referring Provider Address: [address] [place] [address], [id number] Speech Pathology Plan of Care Plan of Care Dates 08/14/24-10/15/23 Referring Provider Nabor Starkey Patient History Janet carlton is a 79 year old female who presented to this clinic for an outpatient evaluation of speech-language and cognition secondary to a recent stroke which resulted in expressive aphasia. She was admitted to ED at this hospital on 05/09/24 with MRI indicating acute small focal infarct in the posterior medial left temporal lobe. 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 She was seen by another ENGINEERING TECHNOLOGIST at this facility ( Martha Lunsford, ENGINEERING TECHNOLOGIST) on 05/10/24 for an assessment of cognition and language before discharging home on 05/11/24 with caregiver assistance 5 days/week. At the time of her inpatient cognitive-language assessment, the [facility] Mental Status examination (SLUMS) and the Quick Aphasia Batetry (QAB were administered). On the SLUMS (which measures various domains of cognition including attention, memory, and orientation), Janet scored a 7 out of 30, which is indicative of moderate-severe impairment in cognition. On the QAB, Janet scored an overall score of 7.40-10 .00, indicative of moderate impairment in language skills. It was recommended that Janet discharge home with her caregiver, Milady, who manages IADLs and assists with most ADLs during the week. Milady reported that the pt's family member Don also helps with Janet's IADLs. Since discharge from the hospital, pt and caregiver state that Janet's language has improved, but Janet also states that she is more aware of her speech/language errors, which has caused increased frustration. She also is having some remaining difficulties with memory/ cognition. 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 Vikas was seen by [facility] speech therapy for one visit, but has not received any other speech therapy since her stroke. She is also receiving physical therapy at this facility twice per week. Since initial evaluation, Janet has been attending cognitive linguistic therapy with ENGINEERING TECHNOLOGIST at this clinic for 10 visits and has made good progress toward her short term and long-term goals. Throughout the course of therapy, Janet's specific cognitive/memory needs have become more clear and treatment has focused on developing compensatory strategies to remediate memory concerns, including the use of external aids and the use of spaced retrieval training and errorless learning to memorize needed information such as names of people/pets and locations of important items. Impairments Identified Expressive language,Receptive language,Cognitive communication Progress Towards Goals Good Progress Self-awareness of Cognitive- Situational awareness (re Communication Deficits General Tasks and Demands Mild Household Tasks Mild Interpersonal Interactions Moderate Community Moderate MBS Comments Oropharyngeal dysphagia with reduced OM strength . Mastication efficiency compromised due to poor dentition. Laryngeal penetration was noted as well as esophageal retention, narrowing and retrograde flow near mid chest. Referral to GI is recommended. Pt noted she has had EGD many years ago. Additionally she has not had GERD tretment for many years (per pt's report.) Recommended Referrals GI Consult Short Term Goals 1. Janet will complete recall tasks of names of family/pets with 80% accuracy or more following an errorless learning session to review target names. 2. Janet will accurately state location of dedicated calendar (based on trained spaced retrieval phrase) in 80% of probes independently . 3. Janet will benefit from education re lifestyle factors for brain and cognitive health, including sleep, nutrition, socialization, exercise, etc. DISCONTINUED/COMPLETED GOALS: 1. Janet will complete confrontation naming tasks for 2 to 3-syllable words with 90% accuracy given orthographic cues. (Goal met) 2. Janet will produce a minimum of 4 different features when presented with a target word using semantic feature analysis (SFA), given minimal verbal prompts, with 75% accuracy. (Goal met) 3. Janet and caregivers/family will benefit from education in home/carryover activities for aphasia rehabilitation. (Goal met) 4. Janet will complete a re-assessment of cognition to further guide POC r/t cognition/ memory. (Discontinue) Fdc Goals 1. Janet will accurately recall names of family/ pets with 80% accuracy independently given random probes (not preceded by errorless learning). 2. Janet will accurately recall scheduled daily activities (e.g. appointments) independently in 80% of probes. DISCONTINUED/COMPLETED GOALS: Janet will complete confrontation naming tasks for 2 to 3-syllable words with 80% accuracy without the need for ENGINEERING TECHNOLOGIST cues. (Goal met) Janet will increase her score on the QAB to an overall score of at least 8.9/10.00 (consistent with no aphasia). (Goal met) Comment: Electronically Signed by: LOGAN Parish 08/14/24 2513 If you are in agreement with this Plan of Care, please return a signed and dated copy. I have reviewed this Plan of Care and certify that the skilled therapy services above are required to meet the patient?s needs. Physician Signature Date Printed Name and Credentials Clinical Instructor Signature Printed Name and Credentials
--- NOTE | 2024-08-16 12:32 | ST.OPTN ---
Visit Care Team Role Provider Type HAMZAH Navas Family Provider Advanced Ready To Wear Department Manager Address: Nabor Starkey MD Attending Provider Physician Primary Care Provider Referring Provider Address: [address] [place] [address], [id number] FLOOR CLEANER Treatment Note FLOOR CLEANER Treatment Note Start: 06/25/24 13:43 Freq: Status: Active Protocol: Document 08/16/24 12:28 CG (Rec: 08/16/24 12:32 CG [id number]) Speech Pathology Treatment Note Session Time Visit Start Time 11:40 Visit Stop Time 12:15 Total Visit Minutes 35 Visit Information Visit Number 11 Plan of Care Dates 08/14/24-10/15/23 Setting Treatment Setting Outpatient Care Visit Type Note Type Progress Note Next Note Type Next Note Type Treatment Note General Information Patient History Janet carlton is a 79 year old female who presented to this clinic for an outpatient evaluation of speech-language and cognition secondary to a recent stroke which resulted in expressive aphasia. She was admitted to ED at this hospital on 05/09/24 with MRI indicating acute small focal infarct in the posterior medial left temporal lobe. 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 She was seen by another FLOOR CLEANER at this facility (Martha Lunsford, LOGAN ) on 05/10/24 for an assessment of cognition and language before discharging home on 05/11 with caregiver assistance 5 days/week. At the time of her inpatient cognitive- language assessment, the [facility] Mental Status examination (SLUMS) and the Quick Aphasia Batetry (QAB were administered). On the SLUMS (which measures various domains of cognition including attention, memory, and orientation), Janet scored a 7 out of 30, which is indicative of moderate-severe impairment in cognition. On the QAB, Janet scored an overall score of 7.40-10.00, indicative of moderate impairment in language skills. It was recommended that Janet discharge home with her caregiver, Milady, who manages IADLs and assists with most ADLs during the week. Summer reported that the pt's family member Don also helps with Janet's IADLs. Since discharge from the hospital, pt and caregiver state that Janet's language has improved, but Janet also states that she is more aware of her speech/language errors, which has caused increased frustration. She also is having some remaining difficulties with memory/ cognition. 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 Vikas was seen by [facility] speech therapy for one visit, but has not received any other speech therapy since her stroke. She is also receiving physical therapy at this facility twice per week. _ Since initial evaluation, Janet has been attending cognitive linguistic therapy with FLOOR CLEANER at this clinic for 10 visits and has made good progress toward her short term and long-term goals. Throughout the course of therapy, Janet's specific cognitive/memory needs have become more clear and treatment has focused on developing compensatory strategies to remediate memory concerns, including the use of external aids and the use of spaced retrieval training and errorless learning to memorize needed information such as names of people/pets and locations of important items. Subjective Identification Type Name Chief Complaint(s) Language,Cognitive Objective Short Term Goals 1. Janet will complete recall tasks of names of family/pets with 80% accuracy or more following an errorless learning session to review target names. 2. Janet will accurately state location of dedicated calendar (based on trained spaced retrieval phrase) in 80% of probes independently. 3. Janet will benefit from education re lifestyle factors for brain and cognitive health, including sleep, nutrition, socialization, exercise, etc. DISCONTINUED/COMPLETED GOALS: 1. Janet will complete confrontation naming tasks for 2 to 3-syllable words with 90 % accuracy given orthographic cues. (Goal met) 2. Janet will produce a minimum of 4 different features when presented with a target word using semantic feature analysis (SFA), given minimal verbal prompts, with 75% accuracy. (Goal met) 3. Janet and caregivers/family will benefit from education in home/carryover activities for aphasia rehabilitation. (Goal met) 4. Janet will complete a re- assessment of cognition to further guide POC r/t cognition/memory. (Discontinue ) Electronic Sales And Service Technician Goals 1. Janet will accurately recall names of family/pets with 80% accuracy independently given random probes (not preceded by errorless learning). 2. Janet will accurately recall scheduled daily activities (e .g. appointments) independently in 80% of probes . DISCONTINUED/COMPLETED GOALS: Janet will complete confrontation naming tasks for 2 to 3-syllable words with 80 % accuracy without the need for FLOOR CLEANER cues. (Goal met) Janet will increase her score on the QAB to an overall score of at least 8.9/10.00 ( consistent with no aphasia). ( Goal met) Treatment Activities Continued review of spaced retrieval phrase trained in previous session. Continued errorless learning of pet names followed by recall activity for pet names. Assessment Patient Response to Treatment Good Rehab Potential Good Impairments Identified Expressive language,Receptive language,Cognitive communication Progress Towards Goals Good Progress Assessment of Overall Progress Improving Assessment of Improvement Pt had increased difficulty with recall of trained phrase today (If I need to know what' s on my calendar, I'll check in the kitchen by the phone). FLOOR CLEANER completed rounds of errorless learning to facilitate more accurate encoding based on pt errors today. After learning round, pt was approximately 50% accurate with recall. She and caregiver state she had another night of very little sleep as she had friends/ family over for the night and was up late. This may be impacting recall of this phrase today. Following errorless learning trials with pictures of pt pets, pt was able to recall nbames of pets with 92% accuracy independently today, which is a sustained increase from previous sessions in which errorless learning was not utilized. Plan to continue with errorless learning followed by recall. Pt did not bring pictures of family members this session but plans to do so next session. Reviewed with Patient Progress Being Made,Home Exercise Program Patient/Caregiver Understanding Good Plan Amount of Therapy Recommended 2-3 Months Frequency of Treatment Twice a Week Length of Session 30 Minutes Therapeutic Contents Auditory Comprehension, Cognitive-Linguistic Training, Expressive Language Training Provided Patient/Caregiver Instruction Plan of Care
--- NOTE | 2024-08-20 13:50 | ST.OPTN ---
Visit Care Team Role Provider Type HAMZAH Navas Family Provider Advanced Print Project Manager Address: Nabor Starkey MD Attending Provider Physician Primary Care Provider Referring Provider Address: [address] [place] [address], [id number] WET MACHINE OPERATOR Treatment Note WET MACHINE OPERATOR Treatment Note Start: 06/25/24 13:43 Freq: Status: Active Protocol: Document 08/20/24 13:42 CG (Rec: 08/20/24 13:50 CG [id number]) Speech Pathology Treatment Note Session Time Visit Start Time 13:00 Visit Stop Time 13:40 Total Visit Minutes 40 Visit Information Visit Number 12 Plan of Care Dates 08/14/24-10/15/23 Setting Treatment Setting Outpatient Care Visit Type Note Type Progress Note Next Note Type Next Note Type Treatment Note General Information Patient History Janet carlton is a 79 year old female who presented to this clinic for an outpatient evaluation of speech-language and cognition secondary to a recent stroke which resulted in expressive aphasia. She was admitted to ED at this hospital on 05/09/24 with MRI indicating acute small focal infarct in the posterior medial left temporal lobe. 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 She was seen by another WET MACHINE OPERATOR at this facility (Martah Lunsford, [facility] ) on 05/10/24 for an assessment of cognition and language before discharging home on 05/11 with caregiver assistance 5 days/week. At the time of her inpatient cognitive- language assessment, the [facility] Mental Status examination (SLUMS) and the Quick Aphasia Batetry (QAB were administered). On the SLUMS (which measures various domains of cognition including attention, memory, and orientation), Janet scored a 7 out of 30, which is indicative of moderate-severe impairment in cognition. On the QAB, Janet scored an overall score of 7.40-10.00, indicative of moderate impairment in language skills. It was recommended that Janet discharge home with her caregiver, Milady, who manages IADLs and assists with most ADLs during the week. Summer reported that the pt's family member Don also helps with Janet's IADLs. Since discharge from the hospital, pt and caregiver state that Janet's language has improved, but Janet also states that she is more aware of her speech/language errors, which has caused increased frustration. She also is having some remaining difficulties with memory/ cognition. 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 Vikas was seen by [facility] speech therapy for one visit, but has not received any other speech therapy since her stroke. She is also receiving physical therapy at this facility twice per week. _ Since initial evaluation, Janet has been attending cognitive linguistic therapy with WET MACHINE OPERATOR at this clinic for 10 visits and has made good progress toward her short term and long-term goals. Throughout the course of therapy, Janet's specific cognitive/memory needs have become more clear and treatment has focused on developing compensatory strategies to remediate memory concerns, including the use of external aids and the use of spaced retrieval training and errorless learning to memorize needed information such as names of people/pets and locations of important items. Subjective Identification Type Name Chief Complaint(s) Language,Cognitive Objective Short Term Goals 1. Janet will complete recall tasks of names of family/pets with 80% accuracy or more following an errorless learning session to review target names. 2. Janet will accurately state location of dedicated calendar (based on trained spaced retrieval phrase) in 80% of probes independently. 3. Janet will benefit from education re lifestyle factors for brain and cognitive health, including sleep, nutrition, socialization, exercise, etc. DISCONTINUED/COMPLETED GOALS: 1. Janet will complete confrontation naming tasks for 2 to 3-syllable words with 90 % accuracy given orthographic cues. (Goal met) 2. Janet will produce a minimum of 4 different features when presented with a target word using semantic feature analysis (SFA), given minimal verbal prompts, with 75% accuracy. (Goal met) 3. Janet and caregivers/family will benefit from education in home/carryover activities for aphasia rehabilitation. (Goal met) 4. Janet will complete a re- assessment of cognition to further guide POC r/t cognition/memory. (Discontinue ) Registered Client Associate Goals 1. Janet will accurately recall names of family/pets with 80% accuracy independently given random probes (not preceded by errorless learning). 2. Janet will accurately recall scheduled daily activities (e .g. appointments) independently in 80% of probes . DISCONTINUED/COMPLETED GOALS: Janet will complete confrontation naming tasks for 2 to 3-syllable words with 80 % accuracy without the need for WET MACHINE OPERATOR cues. (Goal met) Janet will increase her score on the QAB to an overall score of at least 8.9/10.00 ( consistent with no aphasia). ( Goal met) Treatment Activities Administered SLUMS for progress monitoring and to determine additional targets for cognitive therapy. Introduced visualization strategy and chunking strategy for recalling lists of items. Assessment Patient Response to Treatment Good Rehab Potential Good Impairments Identified Expressive language,Receptive language,Cognitive communication Progress Towards Goals Good Progress Assessment of Overall Progress Improving Assessment of Improvement Pt had continued difficulty with recall of trained phrase today upon intiial probe, though she was able to recall part of the phrase (by the phone.) Pt had some success with visualization strategy and was able to recall 80% of a list of 5, but had difficulty with interference of previously targeted lists. On SLUMS, pt scored an 11/30, still indiciative of cognitive impairment, though increased from her score of 7/30 from when she was inpatient after her stroke. She had particular difficulty with math tasks, clock drawing task, and recall of details from a story. Continued supervision and assistance from caregiver is best for pt safety and function. Plan to continue with errorless learning followed by recall of family members. Pt did not bring pictures of family members this session but plans to do so next session. Additionally, plan to target functional math calculations related to shopping (one of pt's preferred activities). Reviewed with Patient Progress Being Made,Home Exercise Program Patient/Caregiver Understanding Good Plan Amount of Therapy Recommended 2-3 Months Frequency of Treatment Twice a Week Length of Session 30 Minutes Therapeutic Contents Auditory Comprehension, Cognitive-Linguistic Training, Expressive Language Training Provided Patient/Caregiver Instruction Plan of Care
--- NOTE | 2024-08-23 13:55 | ST.OPTN ---
Visit Care Team Role Provider Type HAMZAH Navas Family Provider Advanced Director Funds Development Address: Nabor Starkey MD Attending Provider Physician Primary Care Provider Referring Provider Address: [address] [place] [address], [id number] CHINESE LANGUAGE PROFESSOR Treatment Note CHINESE LANGUAGE PROFESSOR Treatment Note Start: 06/25/24 13:43 Freq: Status: Active Protocol: Document 08/23/24 13:49 CG (Rec: 08/23/24 13:55 CG [id number]) Speech Pathology Treatment Note Session Time Visit Start Time 13:00 Visit Stop Time 13:49 Total Visit Minutes 49 Visit Information Visit Number 13 Plan of Care Dates 08/14/24-10/15/23 Setting Treatment Setting Outpatient Care Visit Type Note Type Progress Note Next Note Type Next Note Type Treatment Note General Information Patient History Janet carlton is a 79 year old female who presented to this clinic for an outpatient evaluation of speech-language and cognition secondary to a recent stroke which resulted in expressive aphasia. She was admitted to ED at this hospital on 05/09/24 with MRI indicating acute small focal infarct in the posterior medial left temporal lobe. 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 She was seen by another CHINESE LANGUAGE PROFESSOR at this facility (Martha Lunsford, [facility] ) on 05/10/24 for an assessment of cognition and language before discharging home on 05/11 with caregiver assistance 5 days/week. At the time of her inpatient cognitive- language assessment, the [facility] Mental Status examination (SLUMS) and the Quick Aphasia Batetry (QAB were administered). On the SLUMS (which measures various domains of cognition including attention, memory, and orientation), Janet scored a 7 out of 30, which is indicative of moderate-severe impairment in cognition. On the QAB, Janet scored an overall score of 7.40-10.00, indicative of moderate impairment in language skills. It was recommended that Janet discharge home with her caregiver, Milady, who manages IADLs and assists with most ADLs during the week. Summer reported that the pt's family member Don also helps with Janet's IADLs. Since discharge from the hospital, pt and caregiver state that Janet's language has improved, but Janet also states that she is more aware of her speech/language errors, which has caused increased frustration. She also is having some remaining difficulties with memory/ cognition. 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 Vikas was seen by [facility] speech therapy for one visit, but has not received any other speech therapy since her stroke. She is also receiving physical therapy at this facility twice per week. _ Since initial evaluation, Janet has been attending cognitive linguistic therapy with CHINESE LANGUAGE PROFESSOR at this clinic for 10 visits and has made good progress toward her short term and long-term goals. Throughout the course of therapy, Janet's specific cognitive/memory needs have become more clear and treatment has focused on developing compensatory strategies to remediate memory concerns, including the use of external aids and the use of spaced retrieval training and errorless learning to memorize needed information such as names of people/pets and locations of important items. Subjective Identification Type Name Chief Complaint(s) Language,Cognitive Objective Short Term Goals 1. Janet will complete recall tasks of names of family/pets with 80% accuracy or more following an errorless learning session to review target names. 2. Janet will accurately state location of dedicated calendar (based on trained spaced retrieval phrase) in 80% of probes independently. 3. Janet will benefit from education re lifestyle factors for brain and cognitive health, including sleep, nutrition, socialization, exercise, etc. DISCONTINUED/COMPLETED GOALS: 1. Janet will complete confrontation naming tasks for 2 to 3-syllable words with 90 % accuracy given orthographic cues. (Goal met) 2. Janet will produce a minimum of 4 different features when presented with a target word using semantic feature analysis (SFA), given minimal verbal prompts, with 75% accuracy. (Goal met) 3. Janet and caregivers/family will benefit from education in home/carryover activities for aphasia rehabilitation. (Goal met) 4. Janet will complete a re- assessment of cognition to further guide POC r/t cognition/memory. (Discontinue ) Cable Splicing Technician Goals 1. Janet will accurately recall names of family/pets with 80% accuracy independently given random probes (not preceded by errorless learning). 2. Janet will accurately recall scheduled daily activities (e .g. appointments) independently in 80% of probes . DISCONTINUED/COMPLETED GOALS: Janet will complete confrontation naming tasks for 2 to 3-syllable words with 80 % accuracy without the need for CHINESE LANGUAGE PROFESSOR cues. (Goal met) Janet will increase her score on the QAB to an overall score of at least 8.9/10.00 ( consistent with no aphasia). ( Goal met) Treatment Activities Continued errorless learning + recall for pet's names. Discussed accomodations for memory at home r/t using whiteboard instead of multiple notebooks throughout house. Began training in use of phone calculator to calculate discounts on items while shopping. Assessment Patient Response to Treatment Good Rehab Potential Good Impairments Identified Expressive language,Receptive language,Cognitive communication Progress Towards Goals Good Progress Assessment of Overall Progress Improving Assessment of Improvement Pt recalled trained recall phrase today and was able to state that her calendar was by the phone in the kitchen. Pt did not bring family member photos today. During recall of pet names after errorless learning, pt was 90% accurate today. She states increased ability to recall pets' names at home and decreased frustration with this. During training in calculating discounts, CHINESE LANGUAGE PROFESSOR originally began traching calculating by hand via whiteboard. However, this was too demanding on pt working memory. Instead, began training in use of calculator on pt's phone. Rearranged calculator diogo so that it is on the home screen and easy to access. Began structured training of Full batista times discount percent equals discount amount. Pt had some difficulty with remembering to include percent sign, which would cause calculations to be inaccurate. She may benefit from continues systematic training of this multi-step sequence. Plan to continue with errorless learning followed by recall of family members if pt brings family photos next session. Reviewed with Patient Progress Being Made,Home Exercise Program Patient/Caregiver Understanding Good Plan Amount of Therapy Recommended 2-3 Months Frequency of Treatment Twice a Week Length of Session 30 Minutes Therapeutic Contents Auditory Comprehension, Cognitive-Linguistic Training, Expressive Language Training Provided Patient/Caregiver Instruction Plan of Care
--- NOTE | 2024-08-27 13:47 | ST.OPTN ---
Visit Care Team Role Provider Type HAMZAH Navas Family Provider Advanced Janitorial Account Manager Address: Nabor Starkey MD Attending Provider Physician Primary Care Provider Referring Provider Address: [address] [place] [address], [id number] FIELD CASE MANAGER Treatment Note FIELD CASE MANAGER Treatment Note Start: 06/25/24 13:43 Freq: Status: Active Protocol: Document 08/27/24 13:41 CG (Rec: 08/27/24 13:47 CG [id number]) Speech Pathology Treatment Note Session Time Visit Start Time 13:00 Visit Stop Time 13:40 Total Visit Minutes 40 Visit Information Visit Number 14 Plan of Care Dates 08/14/24-10/15/23 Setting Treatment Setting Outpatient Care Visit Type Note Type Progress Note Next Note Type Next Note Type Treatment Note General Information Patient History Janet carlton is a 79 year old female who presented to this clinic for an outpatient evaluation of speech-language and cognition secondary to a recent stroke which resulted in expressive aphasia. She was admitted to ED at this hospital on 05/09/24 with MRI indicating acute small focal infarct in the posterior medial left temporal lobe. 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 She was seen by another FIELD CASE MANAGER at this facility (Martha Lunsford, [facility] ) on 05/10/24 for an assessment of cognition and language before discharging home on 05/11 with caregiver assistance 5 days/week. At the time of her inpatient cognitive- language assessment, the [facility] Mental Status examination (SLUMS) and the Quick Aphasia Batetry (QAB were administered). On the SLUMS (which measures various domains of cognition including attention, memory, and orientation), Janet scored a 7 out of 30, which is indicative of moderate-severe impairment in cognition. On the QAB, Janet scored an overall score of 7.40-10.00, indicative of moderate impairment in language skills. It was recommended that Janet discharge home with her caregiver, Milady, who manages IADLs and assists with most ADLs during the week. Summer reported that the pt's family member Don also helps with Janet's IADLs. Since discharge from the hospital, pt and caregiver state that Janet's language has improved, but Janet also states that she is more aware of her speech/language errors, which has caused increased frustration. She also is having some remaining difficulties with memory/ cognition. 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 Vikas was seen by [facility] speech therapy for one visit, but has not received any other speech therapy since her stroke. She is also receiving physical therapy at this facility twice per week. _ Since initial evaluation, Janet has been attending cognitive linguistic therapy with FIELD CASE MANAGER at this clinic for 10 visits and has made good progress toward her short term and long-term goals. Throughout the course of therapy, Janet's specific cognitive/memory needs have become more clear and treatment has focused on developing compensatory strategies to remediate memory concerns, including the use of external aids and the use of spaced retrieval training and errorless learning to memorize needed information such as names of people/pets and locations of important items. Subjective Identification Type Name Chief Complaint(s) Language,Cognitive Objective Short Term Goals 1. Janet will complete recall tasks of names of family/pets with 80% accuracy or more following an errorless learning session to review target names. 2. Janet will accurately state location of dedicated calendar (based on trained spaced retrieval phrase) in 80% of probes independently. 3. Janet will benefit from education re lifestyle factors for brain and cognitive health, including sleep, nutrition, socialization, exercise, etc. DISCONTINUED/COMPLETED GOALS: 1. Janet will complete confrontation naming tasks for 2 to 3-syllable words with 90 % accuracy given orthographic cues. (Goal met) 2. Janet will produce a minimum of 4 different features when presented with a target word using semantic feature analysis (SFA), given minimal verbal prompts, with 75% accuracy. (Goal met) 3. Janet and caregivers/family will benefit from education in home/carryover activities for aphasia rehabilitation. (Goal met) 4. Janet will complete a re- assessment of cognition to further guide POC r/t cognition/memory. (Discontinue ) Digital Press Operator Goals 1. Janet will accurately recall names of family/pets with 80% accuracy independently given random probes (not preceded by errorless learning). 2. Janet will accurately recall scheduled daily activities (e .g. appointments) independently in 80% of probes . DISCONTINUED/COMPLETED GOALS: Janet will complete confrontation naming tasks for 2 to 3-syllable words with 80 % accuracy without the need for FIELD CASE MANAGER cues. (Goal met) Janet will increase her score on the QAB to an overall score of at least 8.9/10.00 ( consistent with no aphasia). ( Goal met) Treatment Activities Continued training in use of phone calculator to calculate discounts on items while shopping via task analysis/ training in multistep sequence . FIELD CASE MANAGER provided graded cueing to reduce error rate during new learning. Multistep sequence was trained as follows: 1. Open calculator diogo. 2. Enter the full batista of the item. 3. Hit multiply. 4. Enter the discount percentage WITH a PERCENT SIGN . 5. Hit equals. This will give you your total discount. ( Not yet training in calculating total remaining batista after discount). Assessment Patient Response to Treatment Good Rehab Potential Good Impairments Identified Expressive language,Receptive language,Cognitive communication Progress Towards Goals Good Progress Assessment of Overall Progress Improving Assessment of Improvement Pt recalled trained recall phrase today and was able to state that her calendar was by the phone in the kitchen. During training in multi-step sequence, pt benefitted from steps written on whiteboard to reference to reduce errors while learning sequence. Additionally, she benefitted from FIELD CASE MANAGER cues, particularly to remember to include percentage sign. FIELD CASE MANAGER cued, Remember your percentage sign - it's a huang button. Initially, pt only able to complete one of the steps independently. By end of session, pt was able to complete all steps independently in approximately 75% of opportunities. This will likely regress at beginning of next session, but recommend continued systematic training with graded cueing and emphasis on errorless learning. Reviewed with Patient Progress Being Made,Home Exercise Program Patient/Caregiver Understanding Good Plan Amount of Therapy Recommended 2-3 Months Frequency of Treatment Twice a Week Length of Session 30 Minutes Therapeutic Contents Auditory Comprehension, Cognitive-Linguistic Training, Expressive Language Training Provided Patient/Caregiver Instruction Plan of Care
--- NOTE | 2024-09-03 13:44 | ST.OPTN ---
Visit Care Team Role Provider Type HAMZAH Navas Family Provider Advanced Livestock Laborer Address: Nabor Starkey MD Attending Provider Physician Primary Care Provider Referring Provider Address: [address] [place] [address], [id number] SUBJECT SCIENTIFIC RESEARCH Treatment Note SUBJECT SCIENTIFIC RESEARCH Treatment Note Start: 06/25/24 13:43 Freq: Status: Active Protocol: Document 09/03/24 13:35 SS (Rec: 09/03/24 13:44 SS [id number]) Speech Pathology Treatment Note Session Time Visit Start Time 11:30 Visit Stop Time 12:11 Total Visit Minutes 41 Visit Information Visit Number 15 Plan of Care Dates 08/14/24-10/15/23 Setting Treatment Setting Outpatient Care Visit Type Note Type Treatment Note Next Note Type Next Note Type Treatment Note General Information Patient History Janet carlton is a 79 year old female who presented to this clinic for an outpatient evaluation of speech-language and cognition secondary to a recent stroke which resulted in expressive aphasia. She was admitted to ED at this hospital on 05/09/24 with MRI indicating acute small focal infarct in the posterior medial left temporal lobe. 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 She was seen by another SUBJECT SCIENTIFIC RESEARCH at this facility ([facility], [facility] ) on 05/10/24 for an assessment of cognition and language before discharging home on 05/11 with caregiver assistance 5 days/week. At the time of her inpatient cognitive- language assessment, the [facility] Mental Status examination (SLUMS) and the Quick Aphasia Batetry (QAB were administered). On the SLUMS (which measures various domains of cognition including attention, memory, and orientation), Janet scored a 7 out of 30, which is indicative of moderate-severe impairment in cognition. On the QAB, Janet scored an overall score of 7.40-10.00, indicative of moderate impairment in language skills. It was recommended that Janet discharge home with her caregiver, Milady, who manages IADLs and assists with most ADLs during the week. Summer reported that the pt's family member Don also helps with Janet's IADLs. Since discharge from the hospital, pt and caregiver state that Janet's language has improved, but Janet also states that she is more aware of her speech/language errors, which has caused increased frustration. She also is having some remaining difficulties with memory/ cognition. 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 Vikas was seen by [facility] speech therapy for one visit, but has not received any other speech therapy since her stroke. She is also receiving physical therapy at this facility twice per week. _ Since initial evaluation, Janet has been attending cognitive linguistic therapy with SUBJECT SCIENTIFIC RESEARCH at this clinic for 10 visits and has made good progress toward her short term and long-term goals. Throughout the course of therapy, Jnaet's specific cognitive/memory needs have become more clear and treatment has focused on developing compensatory strategies to remediate memory concerns, including the use of external aids and the use of spaced retrieval training and errorless learning to memorize needed information such as names of people/pets and locations of important items. Subjective Identification Type Name Chief Complaint(s) Language,Cognitive Objective Short Term Goals 1. Janet will complete recall tasks of names of family/pets with 80% accuracy or more following an errorless learning session to review target names. 2. Janet will accurately state location of dedicated calendar (based on trained spaced retrieval phrase) in 80% of probes independently. 3. Janet will benefit from education re lifestyle factors for brain and cognitive health, including sleep, nutrition, socialization, exercise, etc. DISCONTINUED/COMPLETED GOALS: 1. Janet will complete confrontation naming tasks for 2 to 3-syllable words with 90 % accuracy given orthographic cues. (Goal met) 2. Janet will produce a minimum of 4 different features when presented with a target word using semantic feature analysis (SFA), given minimal verbal prompts, with 75% accuracy. (Goal met) 3. Janet and caregivers/family will benefit from education in home/carryover activities for aphasia rehabilitation. (Goal met) 4. Janet will complete a re- assessment of cognition to further guide POC r/t cognition/memory. (Discontinue ) Partition Assembler Goals 1. Janet will accurately recall names of family/pets with 80% accuracy independently given random probes (not preceded by errorless learning). 2. Janet will accurately recall scheduled daily activities (e .g. appointments) independently in 80% of probes . DISCONTINUED/COMPLETED GOALS: Janet will complete confrontation naming tasks for 2 to 3-syllable words with 80 % accuracy without the need for SUBJECT SCIENTIFIC RESEARCH cues. (Goal met) Janet will increase her score on the QAB to an overall score of at least 8.9/10.00 ( consistent with no aphasia). ( Goal met) Treatment Activities Continued training in use of phone calculator to calculate discounts on items while shopping via task analysis/ training in multistep sequence . SUBJECT SCIENTIFIC RESEARCH provided graded cueing to reduce error rate during new learning. Multistep sequence was trained as follows: 1. Open calculator diogo. 2. Enter the full batista of the item. 3. Hit multiply. 4. Enter the discount percentage WITH a PERCENT SIGN . 5. Hit equals. This will give you your total discount. ( Not yet training in calculating total remaining batista after discount). Assessment Patient Response to Treatment Good Rehab Potential Good Impairments Identified Expressive language,Receptive language,Cognitive communication Progress Towards Goals Good Progress Assessment of Overall Progress Improving Assessment of Improvement Pt recalled trained recall phrase today for calendar and was able to state that her calendar was by the phone in the kitchen given initial prompt. Additionally, targeted recall of names of cat pets with use of association as a compensatory strategies (i.e., Cinnamon goes with Spice). Pt was able to recall names of pets given 5-minute, 10-minute , and 30-minute delay with use of this association. During training in multi-step sequence, pt continued to benefit from steps written on whiteboard as visual aid while completing sequence on her cellphone. She benefitted from mod verbal cues throughout the task (e.g., Remember your percentage sign - it's a huang button?), with cueing fading to min as task progressed, with pt only requiring prompting to reference whiteboard. Initially, pt was able to complete 1/5 steps independently, progressing to 5/5 steps given min cueing. She was able to complete the sequence with 100% accuracy independently in one trial today. Pt with benefit from continued systematic training with graded cueing and emphasis on errorless learning to increase independence with this task. Recommended pt practice this task with assistance from family/ caregivers to promote carryover, which pt was agreeable to. Reviewed with Patient Progress Being Made,Home Exercise Program Patient/Caregiver Understanding Good Plan Amount of Therapy Recommended 2-3 Months Frequency of Treatment Twice a Week Length of Session 30 Minutes Therapeutic Contents Auditory Comprehension, Cognitive-Linguistic Training, Expressive Language Training Provided Patient/Caregiver Instruction Plan of Care
--- NOTE | 2024-09-11 13:57 | ST-OP ANOTE ---
Physical, Occupational & Speech Therapy At [facility] Speech Therapy Note HARBOR TUG CAPTAIN called pt as pt did not show for her 13:45 appointment. Pt apologized and explained that her caregiver has been sick and she had forgotten about the appointment. Reviewed date and time of next appointment (09/12 at 11:30) with pt expressing understanding. Notified credit front office developer and asked pt to call and cancel appt.
--- NOTE | 2024-09-12 12:34 | ST.OPTN ---
Visit Care Team Role Provider Type HAMZAH Navas Family Provider Advanced Lorry Weigher Address: Nabor Starkey MD Attending Provider Physician Primary Care Provider Referring Provider Address: [address] [place] [address], [id number] RESTAURANT LEAD Treatment Note RESTAURANT LEAD Treatment Note Start: 06/25/24 13:43 Freq: Status: Active Protocol: Document 09/12/24 12:27 CG (Rec: 09/12/24 12:34 CG [id number]) Speech Pathology Treatment Note Session Time Visit Start Time 11:40 Visit Stop Time 12:15 Total Visit Minutes 35 Visit Information Visit Number 16 Plan of Care Dates 08/14/24-10/15/23 Setting Treatment Setting Outpatient Care Visit Type Note Type Treatment Note Next Note Type Next Note Type Treatment Note General Information Patient History Janet carlton is a 79 year old female who presented to this clinic for an outpatient evaluation of speech-language and cognition secondary to a recent stroke which resulted in expressive aphasia. She was admitted to ED at this hospital on 05/09/24 with MRI indicating acute small focal infarct in the posterior medial left temporal lobe. 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 She was seen by another RESTAURANT LEAD at this facility (Martha Lunsford, [place] ) on 05/10/24 for an assessment of cognition and language before discharging home on 05/11 with caregiver assistance 5 days/week. At the time of her inpatient cognitive- language assessment, the [facility] Mental Status examination (SLUMS) and the Quick Aphasia Batetry (QAB were administered). On the SLUMS (which measures various domains of cognition including attention, memory, and orientation), Janet scored a 7 out of 30, which is indicative of moderate-severe impairment in cognition. On the QAB, Janet scored an overall score of 7.40-10.00, indicative of moderate impairment in language skills. It was recommended that Janet discharge home with her caregiver, Milady, who manages IADLs and assists with most ADLs during the week. Summer reported that the pt's family member Don also helps with Janet's IADLs. Since discharge from the hospital, pt and caregiver state that Janet's language has improved, but Janet also states that she is more aware of her speech/language errors, which has caused increased frustration. She also is having some remaining difficulties with memory/ cognition. 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 Vikas was seen by [facility] speech therapy for one visit, but has not received any other speech therapy since her stroke. She is also receiving physical therapy at this facility twice per week. _ Since initial evaluation, Janet has been attending cognitive linguistic therapy with RESTAURANT LEAD at this clinic for 10 visits and has made good progress toward her short term and long-term goals. Throughout the course of therapy, Janet's specific cognitive/memory needs have become more clear and treatment has focused on developing compensatory strategies to remediate memory concerns, including the use of external aids and the use of spaced retrieval training and errorless learning to memorize needed information such as names of people/pets and locations of important items. Subjective Identification Type Name Chief Complaint(s) Language,Cognitive Objective Short Term Goals 1. Janet will complete recall tasks of names of family/pets with 80% accuracy or more following an errorless learning session to review target names. 2. Janet will accurately state location of dedicated calendar (based on trained spaced retrieval phrase) in 80% of probes independently. 3. Janet will benefit from education re lifestyle factors for brain and cognitive health, including sleep, nutrition, socialization, exercise, etc. DISCONTINUED/COMPLETED GOALS: 1. Janet will complete confrontation naming tasks for 2 to 3-syllable words with 90 % accuracy given orthographic cues. (Goal met) 2. Janet will produce a minimum of 4 different features when presented with a target word using semantic feature analysis (SFA), given minimal verbal prompts, with 75% accuracy. (Goal met) 3. Janet and caregivers/family will benefit from education in home/carryover activities for aphasia rehabilitation. (Goal met) 4. Janet will complete a re- assessment of cognition to further guide POC r/t cognition/memory. (Discontinue ) Usp Goals 1. Janet will accurately recall names of family/pets with 80% accuracy independently given random probes (not preceded by errorless learning). 2. Janet will accurately recall scheduled daily activities (e .g. appointments) independently in 80% of probes . DISCONTINUED/COMPLETED GOALS: Janet will complete confrontation naming tasks for 2 to 3-syllable words with 80 % accuracy without the need for RESTAURANT LEAD cues. (Goal met) Janet will increase her score on the QAB to an overall score of at least 8.9/10.00 ( consistent with no aphasia). ( Goal met) Treatment Activities RESTAURANT LEAD counseling re sleep and sleep hygeine for brain health and ability to access language skills. Counseling re relationship between calm nervous system and ability to access higher-level language and cognitive skills. Continued training in use of phone calculator to calculate discounts on items while shopping via task analysis/ training in multistep sequence . RESTAURANT LEAD provided graded cueing to reduce error rate during new learning. Multistep sequence was trained as follows: 1. Open calculator diogo. 2. Enter the full batista of the item. 3. Hit multiply. 4. Enter the discount percentage WITH a PERCENT SIGN . 5. Hit equals. This will give you your total discount. ( Not yet training in calculating total remaining batista after discount). Assessment Patient Response to Treatment Good Rehab Potential Good Impairments Identified Expressive language,Receptive language,Cognitive communication Progress Towards Goals Good Progress Assessment of Overall Progress Improving Assessment of Improvement Pt had difficulty recalling trained phrase re calendar located by phone in kitchen. She was able to recall trained phrase with 60% accuracy today given mod verbal cues. During training in multi-step sequence, pt continued to benefit from steps written on whiteboard as visual aid while completing sequence on her cellphone. She benefitted from mod verbal cues throughout the task (e.g., Remember your percentage sign - it's a huang button?). Unable to fade cueing today as pt had continued confusion and particular difficulty with remembering percentage sign. Encouraged home practice with caregiver. Pt is typically able to complete 3/5 steps independently across approximately 80% of trials. Pt with benefit from continued systematic training with graded cueing and emphasis on errorless learning to increase independence with this task. Plan to discuss positive self- talk strategies/metacognitive strategies to increase pt perseverance with cognitive tasks and decrease frustration and negative self-talk. Also plan to continue pt education re sequelae of CVA as the explanation of many symptoms. Pt states she will plan to discuss sleep with her doctor at 's appt next session. Reviewed with Patient Progress Being Made,Home Exercise Program Patient/Caregiver Understanding Good Plan Amount of Therapy Recommended 2-3 Months Frequency of Treatment Twice a Week Length of Session 30 Minutes Therapeutic Contents Auditory Comprehension, Cognitive-Linguistic Training, Expressive Language Training Provided Patient/Caregiver Instruction Plan of Care
--- NOTE | 2024-09-12 12:36 | ST.OPTN ---
Visit Care Team Role Provider Type HAMZAH Navas Family Provider Advanced Sorority Mother Address: Nabor Starkey MD Attending Provider Physician Primary Care Provider Referring Provider Address: [address] [place] [address], [id number] LEAD PRESSER Treatment Note LEAD PRESSER Treatment Note Start: 06/25/24 13:43 Freq: Status: Active Protocol: Document 09/12/24 12:27 CG (Rec: 09/12/24 12:34 CG [id number]) Speech Pathology Treatment Note Session Time Visit Start Time 11:40 Visit Stop Time 12:15 Total Visit Minutes 35 Visit Information Visit Number 16 Plan of Care Dates 08/14/24-10/15/23 Setting Treatment Setting Outpatient Care Visit Type Note Type Treatment Note Next Note Type Next Note Type Treatment Note General Information Patient History Janet carlton is a 79 year old female who presented to this clinic for an outpatient evaluation of speech-language and cognition secondary to a recent stroke which resulted in expressive aphasia. She was admitted to ED at this hospital on 05/09/24 with MRI indicating acute small focal infarct in the posterior medial left temporal lobe. 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 She was seen by another LEAD PRESSER at this facility ([facility]a Lunsford, [place] ) on 05/10/24 for an assessment of cognition and language before discharging home on 05/11 with caregiver assistance 5 days/week. At the time of her inpatient cognitive- language assessment, the [facility] Mental Status examination (SLUMS) and the Quick Aphasia Batetry (QAB were administered). On the SLUMS (which measures various domains of cognition including attention, memory, and orientation), Janet scored a 7 out of 30, which is indicative of moderate-severe impairment in cognition. On the QAB, Janet scored an overall score of 7.40-10.00, indicative of moderate impairment in language skills. It was recommended that Janet discharge home with her caregiver, Milady, who manages IADLs and assists with most ADLs during the week. Summer reported that the pt's family member Don also helps with Janet's IADLs. Since discharge from the hospital, pt and caregiver state that Janet's language has improved, but Janet also states that she is more aware of her speech/language errors, which has caused increased frustration. She also is having some remaining difficulties with memory/ cognition. 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 Vikas was seen by [facility] speech therapy for one visit, but has not received any other speech therapy since her stroke. She is also receiving physical therapy at this facility twice per week. _ Since initial evaluation, Janet has been attending cognitive linguistic therapy with LEAD PRESSER at this clinic for 10 visits and has made good progress toward her short term and long-term goals. Throughout the course of therapy, Janet's specific cognitive/memory needs have become more clear and treatment has focused on developing compensatory strategies to remediate memory concerns, including the use of external aids and the use of spaced retrieval training and errorless learning to memorize needed information such as names of people/pets and locations of important items. Subjective Identification Type Name Chief Complaint(s) Language,Cognitive Objective Short Term Goals 1. Janet will complete recall tasks of names of family/pets with 80% accuracy or more following an errorless learning session to review target names. 2. Janet will accurately state location of dedicated calendar (based on trained spaced retrieval phrase) in 80% of probes independently. 3. Janet will benefit from education re lifestyle factors for brain and cognitive health, including sleep, nutrition, socialization, exercise, etc. DISCONTINUED/COMPLETED GOALS: 1. Janet will complete confrontation naming tasks for 2 to 3-syllable words with 90 % accuracy given orthographic cues. (Goal met) 2. Janet will produce a minimum of 4 different features when presented with a target word using semantic feature analysis (SFA), given minimal verbal prompts, with 75% accuracy. (Goal met) 3. Janet and caregivers/family will benefit from education in home/carryover activities for aphasia rehabilitation. (Goal met) 4. Janet will complete a re- assessment of cognition to further guide POC r/t cognition/memory. (Discontinue ) Senior Living Goals 1. Janet will accurately recall names of family/pets with 80% accuracy independently given random probes (not preceded by errorless learning). 2. Janet will accurately recall scheduled daily activities (e .g. appointments) independently in 80% of probes . DISCONTINUED/COMPLETED GOALS: Janet will complete confrontation naming tasks for 2 to 3-syllable words with 80 % accuracy without the need for LEAD PRESSER cues. (Goal met) Janet will increase her score on the QAB to an overall score of at least 8.9/10.00 ( consistent with no aphasia). ( Goal met) Treatment Activities LEAD PRESSER counseling re sleep and sleep hygeine for brain health and ability to access language skills. Counseling re relationship between calm nervous system and ability to access higher-level language and cognitive skills. Continued training in use of phone calculator to calculate discounts on items while shopping via task analysis/ training in multistep sequence . LEAD PRESSER provided graded cueing to reduce error rate during new learning. Multistep sequence was trained as follows: 1. Open calculator diogo. 2. Enter the full batista of the item. 3. Hit multiply. 4. Enter the discount percentage WITH a PERCENT SIGN . 5. Hit equals. This will give you your total discount. ( Not yet training in calculating total remaining batista after discount). Assessment Patient Response to Treatment Good Rehab Potential Good Impairments Identified Expressive language,Receptive language,Cognitive communication Progress Towards Goals Good Progress Assessment of Overall Progress Improving Assessment of Improvement Pt had difficulty recalling trained phrase re calendar located by phone in kitchen. She was able to recall trained phrase with 60% accuracy today given mod verbal cues. During training in multi-step sequence, pt continued to benefit from steps written on whiteboard as visual aid while completing sequence on her cellphone. She benefitted from mod verbal cues throughout the task (e.g., Remember your percentage sign - it's a huang button?). Unable to fade cueing today as pt had continued confusion and particular difficulty with remembering percentage sign. Encouraged home practice with caregiver. Pt is typically able to complete 3/5 steps independently across approximately 80% of trials. Pt with benefit from continued systematic training with graded cueing and emphasis on errorless learning to increase independence with this task. Plan to discuss positive self- talk strategies/metacognitive strategies to increase pt perseverance with cognitive tasks and decrease frustration and negative self-talk. Also plan to continue pt education re sequalae of CVA as the cause of many symptoms. Pt states she will plan to discuss sleep with her doctor at 's appt next session. Reviewed with Patient Progress Being Made,Home Exercise Program Patient/Caregiver Understanding Good Plan Amount of Therapy Recommended 2-3 Months Frequency of Treatment Twice a Week Length of Session 30 Minutes Therapeutic Contents Auditory Comprehension, Cognitive-Linguistic Training, Expressive Language Training Provided Patient/Caregiver Instruction Plan of Care
--- NOTE | 2024-09-18 13:27 | ST-OP ANOTE ---
Physical, Occupational & Speech Therapy At [facility] Speech Therapy Note Called pt's therapy coordinator, yelnea Henning's missed appointment today. She stated she mistakenly thought appointment was tomorrow. Rescheduled tomorrow for 12:15pm.
--- NOTE | 2024-09-19 12:59 | ST.OPTN ---
Visit Care Team Role Provider Type HAMZAH Navas Family Provider Advanced Assembler Engine Address: Nabor Starkey MD Attending Provider Physician Primary Care Provider Referring Provider Address: [address] [place] [address], [id number] AIRBORNE ELECTRONICS ANALYST Treatment Note AIRBORNE ELECTRONICS ANALYST Treatment Note Start: 06/25/24 13:43 Freq: Status: Active Protocol: Document 09/19/24 12:53 CG (Rec: 09/19/24 12:59 CG [id number]) Speech Pathology Treatment Note Session Time Visit Start Time 12:10 Visit Stop Time 12:53 Total Visit Minutes 43 Visit Information Visit Number 17 Plan of Care Dates 08/14/24-10/15/23 Setting Treatment Setting Outpatient Care Visit Type Note Type Treatment Note Next Note Type Next Note Type Treatment Note General Information Patient History Janet carlton is a 79 year old female who presented to this clinic for an outpatient evaluation of speech-language and cognition secondary to a recent stroke which resulted in expressive aphasia. She was admitted to ED at this hospital on 05/09/24 with MRI indicating acute small focal infarct in the posterior medial left temporal lobe. 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 She was seen by another AIRBORNE ELECTRONICS ANALYST at this facility ([facility]uns[facility], [facility] ) on 05/10/24 for an assessment of cognition and language before discharging home on 05/11 with caregiver assistance 5 days/week. At the time of her inpatient cognitive- language assessment, the [facility] Mental Status examination (SLUMS) and the Quick Aphasia Batetry (QAB were administered). On the SLUMS (which measures various domains of cognition including attention, memory, and orientation), Janet scored a 7 out of 30, which is indicative of moderate-severe impairment in cognition. On the QAB, Janet scored an overall score of 7.40-10.00, indicative of moderate impairment in language skills. It was recommended that Janet discharge home with her caregiver, Milady, who manages IADLs and assists with most ADLs during the week. Summer reported that the pt's family member Don also helps with Janet's IADLs. Since discharge from the hospital, pt and caregiver state that Janet's language has improved, but Janet also states that she is more aware of her speech/language errors, which has caused increased frustration. She also is having some remaining difficulties with memory/ cognition. 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 Vikas was seen by [facility] speech therapy for one visit, but has not received any other speech therapy since her stroke. She is also receiving physical therapy at this facility twice per week. _ Since initial evaluation, Janet has been attending cognitive linguistic therapy with AIRBORNE ELECTRON[employer] ANALYST at this clinic for 10 visits and has made good progress toward her short term and long-term goals. Throughout the course of therapy, Janet's specific cognitive/memory needs have become more clear and treatment has focused on developing compensatory strategies to remediate memory concerns, including the use of external aids and the use of spaced retrieval training and errorless learning to memorize needed information such as names of people/pets and locations of important items. Subjective Identification Type Name Chief Complaint(s) Language,Cognitive Objective Short Term Goals 1. Janet will complete recall tasks of names of family/pets with 80% accuracy or more following an errorless learning session to review target names. 2. Janet will accurately state location of dedicated calendar (based on trained spaced retrieval phrase) in 80% of probes independently. 3. Janet will benefit from education re lifestyle factors for brain and cognitive health, including sleep, nutrition, socialization, exercise, etc. DISCONTINUED/COMPLETED GOALS: 1. Janet will complete confrontation naming tasks for 2 to 3-syllable words with 90 % accuracy given orthographic cues. (Goal met) 2. Janet will produce a minimum of 4 different features when presented with a target word using semantic feature analysis (SFA), given minimal verbal prompts, with 75% accuracy. (Goal met) 3. Janet and caregivers/family will benefit from education in home/carryover activities for aphasia rehabilitation. (Goal met) 4. Janet will complete a re- assessment of cognition to further guide POC r/t cognition/memory. (Discontinue ) Residential Goals 1. Janet will accurately recall names of family/pets with 80% accuracy independently given random probes (not preceded by errorless learning). 2. Janet will accurately recall scheduled daily activities (e .g. appointments) independently in 80% of probes . DISCONTINUED/COMPLETED GOALS: Janet will complete confrontation naming tasks for 2 to 3-syllable words with 80 % accuracy without the need for AIRBORNE ELECTRON[employer] ANALYST cues. (Goal met) Janet will increase her score on the QAB to an overall score of at least 8.9/10.00 ( consistent with no aphasia). ( Goal met) Treatment Activities Probes for recall of location of dedicated calendar (in the kitchen by the phone). Discussed self-talk strategies for instances of word finding difficulty/memory difficulty. Worked to develop written list of self-talk affirmations to utilize in instances of memory difficulty. Category naming tasks for increased linguistic mapping of categories/descriptors to assist with circumlocution strategy. Assessment Patient Response to Treatment Good Rehab Potential Good Impairments Identified Expressive language,Receptive language,Cognitive communication Progress Towards Goals Good Progress Assessment of Overall Progress Improving Assessment of Improvement Pt continues to have some difficulty recalling calendar location. She states she has not been checking it regularly . Encouraged pt and caregiver to reintroduce this routine. Pt participated in coming up with self-talk/metacognitive statements for moments of memory difficulty. List was printed and provided to pt. Pt completed semantic/category naming activities with 71% accuracy independently today. She had more difficulty with describing abstract relationships between items (e .g. these are all things that are soft) as opposed to concrete categories (e.g. these are all fruits). Reviewed with Patient Progress Being Made,Home Exercise Program Patient/Caregiver Understanding Good Plan Amount of Therapy Recommended 2-3 Months Frequency of Treatment Twice a Week Length of Session 30 Minutes Therapeutic Contents Auditory Comprehension, Cognitive-Linguistic Training, Expressive Language Training Provided Patient/Caregiver Instruction Plan of Care
--- NOTE | 2024-09-24 16:02 | ST.OPTN ---
Visit Care Team Role Provider Type HAMZAH Navas Family Provider Advanced Track Laborer Address: Nabor Starkey MD Attending Provider Physician Primary Care Provider Referring Provider Address: [address] [place] [address], [id number] OCCUPATIONAL THERAPIST Treatment Note OCCUPATIONAL THERAPIST Treatment Note Start: 06/25/24 13:43 Freq: Status: Active Protocol: Document 09/24/24 15:55 CG (Rec: 09/24/24 16:02 CG [id number]) Speech Pathology Treatment Note Session Time Visit Start Time 13:00 Visit Stop Time 13:45 Total Visit Minutes 45 Visit Information Visit Number 18 Plan of Care Dates 08/14/24-10/15/23 Setting Treatment Setting Outpatient Care Visit Type Note Type Treatment Note Next Note Type Next Note Type Treatment Note General Information Patient History Janet carlton is a 79 year old female who presented to this clinic for an outpatient evaluation of speech-language and cognition secondary to a recent stroke which resulted in expressive aphasia. She was admitted to ED at this hospital on 05/09/24 with MRI indicating acute small focal infarct in the posterior medial left temporal lobe. 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 She was seen by another OCCUPATIONAL THERAPIST at this facility (Martha Lunsford, [place] ) on 05/10/24 for an assessment of cognition and language before discharging home on 05/11 with caregiver assistance 5 days/week. At the time of her inpatient cognitive- language assessment, the [facility] Mental Status examination (SLUMS) and the Quick Aphasia Batetry (QAB were administered). On the SLUMS (which measures various domains of cognition including attention, memory, and orientation), Janet scored a 7 out of 30, which is indicative of moderate-severe impairment in cognition. On the QAB, Janet scored an overall score of 7.40-10.00, indicative of moderate impairment in language skills. It was recommended that Janet discharge home with her caregiver, Milady, who manages IADLs and assists with most ADLs during the week. Summer reported that the pt's family member Don also helps with Janet's IADLs. Since discharge from the hospital, pt and caregiver state that Janet's language has improved, but Janet also states that she is more aware of her speech/language errors, which has caused increased frustration. She also is having some remaining difficulties with memory/ cognition. 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 Vikas was seen by [facility] speech therapy for one visit, but has not received any other speech therapy since her stroke. She is also receiving physical therapy at this facility twice per week. _ Since initial evaluation, Janet has been attending cognitive linguistic therapy with OCCUPATIONAL THERAPIST at this clinic for 10 visits and has made good progress toward her short term and long-term goals. Throughout the course of therapy, Janet's specific cognitive/memory needs have become more clear and treatment has focused on developing compensatory strategies to remediate memory concerns, including the use of external aids and the use of spaced retrieval training and errorless learning to memorize needed information such as names of people/pets and locations of important items. Subjective Identification Type Name Chief Complaint(s) Language,Cognitive Objective Short Term Goals 1. Janet will complete recall tasks of names of family/pets with 80% accuracy or more following an errorless learning session to review target names. 2. Janet will accurately state location of dedicated calendar (based on trained spaced retrieval phrase) in 80% of probes independently. 3. Janet will benefit from education re lifestyle factors for brain and cognitive health, including sleep, nutrition, socialization, exercise, etc. DISCONTINUED/COMPLETED GOALS: 1. Janet will complete confrontation naming tasks for 2 to 3-syllable words with 90 % accuracy given orthographic cues. (Goal met) 2. Janet will produce a minimum of 4 different features when presented with a target word using semantic feature analysis (SFA), given minimal verbal prompts, with 75% accuracy. (Goal met) 3. Janet and caregivers/family will benefit from education in home/carryover activities for aphasia rehabilitation. (Goal met) 4. Janet will complete a re- assessment of cognition to further guide POC r/t cognition/memory. (Discontinue ) Long-Term Goals 1. Janet will accurately recall names of family/pets with 80% accuracy independently given random probes (not preceded by errorless learning). 2. Janet will accurately recall scheduled daily activities (e .g. appointments) independently in 80% of probes . DISCONTINUED/COMPLETED GOALS: Janet will complete confrontation naming tasks for 2 to 3-syllable words with 80 % accuracy without the need for OCCUPATIONAL THERAPIST cues. (Goal met) Janet will increase her score on the QAB to an overall score of at least 8.9/10.00 ( consistent with no aphasia). ( Goal met) Treatment Activities Reviewed self-talk strategies for instances of word finding difficulty/memory difficulty. Continued training in use of calculator (this time a basic calculator, not on the iPhone) to calculate discounts on items while shopping via task analysis/training in multistep sequence. OCCUPATIONAL THERAPIST provided graded cueing to reduce error rate during new learning. Multistep sequence was trained as follows: 1. Enter the full batista of the item. 2. Hit multiply. 3. Enter the discount percentage WITH a PERCENT SIGN . This will give you your total discount. (No need to hit equals button on this separate calculator) [ End ] Assessment Patient Response to Treatment Good Rehab Potential Good Impairments Identified Expressive language,Receptive language,Cognitive communication Progress Towards Goals Good Progress Assessment of Overall Progress Improving Assessment of Improvement Pt read through self-talk as directed to initiate session. She states she has not been practicing these at home. During training in multi-step sequence, pt continued to benefit from steps written on whiteboard as visual aid while completing sequence on her calculator. She benefitted from mod verbal cues throughout the task to remember to slow down and take the process one step at a time. Pt tends to try to remember the whole sequence at once without looking at each step. Focused on explicitly instructing today that she should look at one step, then complete just that one step before moving on. OCCUPATIONAL THERAPIST started adding check cooper as a visual for keeping track of completing each step one at a time. Pt was able to independently complete 2 of 3 steps with 38% accuracy today. She was unable to complete all three steps without additional cueing. Again, her difficulty today was particularly tied to attempting to do the entire sequence at once. Pt will benefit from continued systematic training with graded cueing and emphasis on errorless learning to increase independence with this task. Reviewed with Patient Progress Being Made,Home Exercise Program Patient/Caregiver Understanding Good Plan Amount of Therapy Recommended 2-3 Months Frequency of Treatment Twice a Week Length of Session 30 Minutes Therapeutic Contents Auditory Comprehension, Cognitive-Linguistic Training, Expressive Language Training Provided Patient/Caregiver Instruction Plan of Care
--- NOTE | 2024-09-27 16:11 | ST.OPTN ---
Visit Care Team Role Provider Type HAMZAH Navas Family Provider Advanced Welding Robot Operator Address: Nabor Starkey MD Attending Provider Physician Primary Care Provider Referring Provider Address: [address] [place] [address], [id number] LEARNING COORDINATOR Treatment Note LEARNING COORDINATOR Treatment Note Start: 06/25/24 13:43 Freq: Status: Active Protocol: Document 09/27/24 16:07 CG (Rec: 09/27/24 16:11 CG [id number]) Speech Pathology Treatment Note Session Time Visit Start Time 13:00 Visit Stop Time 13:45 Total Visit Minutes 45 Visit Information Visit Number 19 Plan of Care Dates 08/14/24-10/15/23 Setting Treatment Setting Outpatient Care Visit Type Note Type Treatment Note Next Note Type Next Note Type Treatment Note General Information Patient History Janet carlton is a 79 year old female who presented to this clinic for an outpatient evaluation of speech-language and cognition secondary to a recent stroke which resulted in expressive aphasia. She was admitted to ED at this hospital on 05/09/24 with MRI indicating acute small focal infarct in the posterior medial left temporal lobe. 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 She was seen by another LEARNING COORDINATOR at this facility ([facility]uns[facility], [place] ) on 05/10/24 for an assessment of cognition and language before discharging home on 05/11 with caregiver assistance 5 days/week. At the time of her inpatient cognitive- language assessment, the [facility] Mental Status examination (SLUMS) and the Quick Aphasia Batetry (QAB were administered). On the SLUMS (which measures various domains of cognition including attention, memory, and orientation), Janet scored a 7 out of 30, which is indicative of moderate-severe impairment in cognition. On the QAB, Janet scored an overall score of 7.40-10.00, indicative of moderate impairment in language skills. It was recommended that Janet discharge home with her caregiver, Milady, who manages IADLs and assists with most ADLs during the week. Summer reported that the pt's family member Don also helps with Janet's IADLs. Since discharge from the hospital, pt and caregiver state that Janet's language has improved, but Janet also states that she is more aware of her speech/language errors, which has caused increased frustration. She also is having some remaining difficulties with memory/ cognition. 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 Vikas was seen by [facility] speech therapy for one visit, but has not received any other speech therapy since her stroke. She is also receiving physical therapy at this facility twice per week. _ Since initial evaluation, Janet has been attending cognitive linguistic therapy with LEARNING COORDINATOR at this clinic for 10 visits and has made good progress toward her short term and long-term goals. Throughout the course of therapy, Janet's specific cognitive/memory needs have become more clear and treatment has focused on developing compensatory strategies to remediate memory concerns, including the use of external aids and the use of spaced retrieval training and errorless learning to memorize needed information such as names of people/pets and locations of important items. Subjective Identification Type Name Chief Complaint(s) Language,Cognitive Objective Short Term Goals 1. Janet will complete recall tasks of names of family/pets with 80% accuracy or more following an errorless learning session to review target names. 2. Janet will accurately state location of dedicated calendar (based on trained spaced retrieval phrase) in 80% of probes independently. 3. Janet will benefit from education re lifestyle factors for brain and cognitive health, including sleep, nutrition, socialization, exercise, etc. DISCONTINUED/COMPLETED GOALS: 1. Janet will complete confrontation naming tasks for 2 to 3-syllable words with 90 % accuracy given orthographic cues. (Goal met) 2. Janet will produce a minimum of 4 different features when presented with a target word using semantic feature analysis (SFA), given minimal verbal prompts, with 75% accuracy. (Goal met) 3. Janet and caregivers/family will benefit from education in home/carryover activities for aphasia rehabilitation. (Goal met) 4. Janet will complete a re- assessment of cognition to further guide POC r/t cognition/memory. (Discontinue ) Jail Goals 1. Janet will accurately recall names of family/pets with 80% accuracy independently given random probes (not preceded by errorless learning). 2. Janet will accurately recall scheduled daily activities (e .g. appointments) independently in 80% of probes . DISCONTINUED/COMPLETED GOALS: Janet will complete confrontation naming tasks for 2 to 3-syllable words with 80 % accuracy without the need for LEARNING COORDINATOR cues. (Goal met) Janet will increase her score on the QAB to an overall score of at least 8.9/10.00 ( consistent with no aphasia). ( Goal met) Treatment Activities Continued training in use of calculator (this time a basic calculator, not on the iPhone) to calculate discounts on items while shopping via task analysis/training in multistep sequence. LEARNING COORDINATOR provided graded cueing to reduce error rate during new learning. Multistep sequence was trained as follows: 1. Enter the full batista of the item. 2. Hit multiply. 3. Enter the discount percentage WITH a PERCENT SIGN . This will give you your total discount. (No need to hit equals button on this separate calculator) [ End ] Assessment Patient Response to Treatment Good Rehab Potential Good Impairments Identified Expressive language,Receptive language,Cognitive communication Progress Towards Goals Good Progress Assessment of Overall Progress Improving Assessment of Improvement During training in multi-step sequence, pt continued to benefit from steps written on whiteboard as visual aid while completing sequence on her calculator. Eventually, written cues were simplified to simply say the basic formula she was putting into the calculator: ($____ X ____% ). This simplified visual increased her accuracy with the sequence from about 20% to about 60% given min verbal cues. She benefitted from min to mod verbal cues throughout the task to remember to slow down and take the process one step at a time. Pt tends to try to remember the whole sequence at once without looking at each step. Pt will benefit from continued systematic training with graded cueing and emphasis on errorless learning to increase independence with this task. Reviewed with Patient Progress Being Made,Home Exercise Program Patient/Caregiver Understanding Good Plan Amount of Therapy Recommended 2-3 Months Frequency of Treatment Twice a Week Length of Session 30 Minutes Therapeutic Contents Auditory Comprehension, Cognitive-Linguistic Training, Expressive Language Training Provided Patient/Caregiver Instruction Plan of Care
--- NOTE | 2024-10-04 13:46 | ST.OPTN ---
Visit Care Team Role Provider Type HAMZAH Navas Family Provider Advanced Chest Pain Coordinator Address: Nabor Starkey MD Attending Provider Physician Primary Care Provider Referring Provider Address: [address] [place] [address], [id number] DOCUMENTATION SPECIALIST Treatment Note DOCUMENTATION SPECIALIST Treatment Note Start: 06/25/24 13:43 Freq: Status: Active Protocol: Document 10/04/24 13:41 CG (Rec: 10/04/24 13:46 CG [id number]) Speech Pathology Treatment Note Session Time Visit Start Time 13:00 Visit Stop Time 13:35 Total Visit Minutes 35 Visit Information Visit Number 20 Plan of Care Dates 08/14/24-10/15/23 Setting Treatment Setting Outpatient Care Visit Type Note Type Treatment Note Next Note Type Next Note Type Treatment Note General Information Patient History Janet carlton is a 79 year old female who presented to this clinic for an outpatient evaluation of speech-language and cognition secondary to a recent stroke which resulted in expressive aphasia. She was admitted to ED at this hospital on 05/09/24 with MRI indicating acute small focal infarct in the posterior medial left temporal lobe. 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 She was seen by another DOCUMENTATION SPECIALIST at this facility (Martha Lunsford, [place] ) on 05/10/24 for an assessment of cognition and language before discharging home on 05/11 with caregiver assistance 5 days/week. At the time of her inpatient cognitive- language assessment, the [facility] Mental Status examination (SLUMS) and the Quick Aphasia Batetry (QAB were administered). On the SLUMS (which measures various domains of cognition including attention, memory, and orientation), Janet scored a 7 out of 30, which is indicative of moderate-severe impairment in cognition. On the QAB, Janet scored an overall score of 7.40-10.00, indicative of moderate impairment in language skills. It was recommended that Janet discharge home with her caregiver, Milady, who manages IADLs and assists with most ADLs during the week. Summer reported that the pt's family member Don also helps with Janet's IADLs. Since discharge from the hospital, pt and caregiver state that Janet's language has improved, but Janet also states that she is more aware of her speech/language errors, which has caused increased frustration. She also is having some remaining difficulties with memory/ cognition. 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 Vikas was seen by [facility] speech therapy for one visit, but has not received any other speech therapy since her stroke. She is also receiving physical therapy at this facility twice per week. _ Since initial evaluation, Janet has been attending cognitive linguistic therapy with DOCUMENTATION SPECIALIST at this clinic for 10 visits and has made good progress toward her short term and long-term goals. Throughout the course of therapy, Janet's specific cognitive/memory needs have become more clear and treatment has focused on developing compensatory strategies to remediate memory concerns, including the use of external aids and the use of spaced retrieval training and errorless learning to memorize needed information such as names of people/pets and locations of important items. Subjective Identification Type Name Chief Complaint(s) Language,Cognitive Objective Short Term Goals 1. Janet will complete recall tasks of names of family/pets with 80% accuracy or more following an errorless learning session to review target names. 2. Janet will accurately state location of dedicated calendar (based on trained spaced retrieval phrase) in 80% of probes independently. 3. Janet will benefit from education re lifestyle factors for brain and cognitive health, including sleep, nutrition, socialization, exercise, etc. DISCONTINUED/COMPLETED GOALS: 1. Janet will complete confrontation naming tasks for 2 to 3-syllable words with 90 % accuracy given orthographic cues. (Goal met) 2. Janet will produce a minimum of 4 different features when presented with a target word using semantic feature analysis (SFA), given minimal verbal prompts, with 75% accuracy. (Goal met) 3. Janet and caregivers/family will benefit from education in home/carryover activities for aphasia rehabilitation. (Goal met) 4. Janet will complete a re- assessment of cognition to further guide POC r/t cognition/memory. (Discontinue ) Penitentiary Goals 1. Janet will accurately recall names of family/pets with 80% accuracy independently given random probes (not preceded by errorless learning). 2. Janet will accurately recall scheduled daily activities (e .g. appointments) independently in 80% of probes . DISCONTINUED/COMPLETED GOALS: Janet will complete confrontation naming tasks for 2 to 3-syllable words with 80 % accuracy without the need for DOCUMENTATION SPECIALIST cues. (Goal met) Janet will increase her score on the QAB to an overall score of at least 8.9/10.00 ( consistent with no aphasia). ( Goal met) Treatment Activities Continued training in use of calculator (this time a basic calculator, not on the iPhone) to calculate discounts on items while shopping via task analysis/training in multistep sequence. DOCUMENTATION SPECIALIST provided graded cueing to reduce error rate during new learning. Multistep sequence was trained with simplified visual formula after discovering last session that this was beneficial for Janet. (Wrote out: $Llanos X __%). Followed with description/ circumlocution practice with cards from [employer]. [ End ] Assessment Patient Response to Treatment Good Rehab Potential Good Impairments Identified Expressive language,Receptive language,Cognitive communication Progress Towards Goals Good Progress Assessment of Overall Progress Improving Assessment of Improvement During training in multi-step sequence, pt continued to benefit from steps written on whiteboard as visual aid while completing sequence on her calculator. Given simplified visual cues today, Janet was able to complete calculations with 71% accuracy without the need for additional verbal cues. She still needed occasional verbal cues to take the sequence one step at a time. Pt will benefit from continued systematic training with graded cueing and emphasis on errorless learning to increase independence with this task. During description/ circumlocution practice, pt described target items with approximately 60-70% accuracy independently. She required question probes from DOCUMENTATION SPECIALIST for some items, e.g. what kind of thing is it, what shape is it, etc. Reviewed with Patient Progress Being Made Patient/Caregiver Understanding Good Plan Amount of Therapy Recommended 2-3 Months Frequency of Treatment Twice a Week Length of Session 30 Minutes Therapeutic Contents Auditory Comprehension, Cognitive-Linguistic Training, Expressive Language Training Provided Patient/Caregiver Instruction Plan of Care
--- NOTE | 2024-10-04 15:30 | ST.PROG ---
Visit Care Team Role Provider Type HAMZAH Navas Family Provider Advanced Cook Enchilada Address: Nabor Starkey MD Attending Provider Physician Primary Care Provider Referring Provider Address: [address] [place] [address], [id number] SUPERVISOR PRODUCTION DEPARTMENT Progress Note SUPERVISOR PRODUCTION DEPARTMENT Treatment Note Start: 06/25/24 13:43 Freq: Status: Active Protocol: Document 10/04/24 15:21 CG (Rec: 10/04/24 15:30 CG [id number]) Speech Pathology Treatment Note Visit Information Visit Number 20 Plan of Care Dates 08/14/24-10/15/23 Setting Treatment Setting Outpatient Care Visit Type Note Type Progress Note Next Note Type Next Note Type Treatment Note General Information Patient History Janet carlton is a 79 year old female who presented to this clinic for an outpatient evaluation of speech-language and cognition secondary to a recent stroke which resulted in expressive aphasia. She was admitted to ED at this hospital on 05/09/24 with MRI indicating acute small focal infarct in the posterior medial left temporal lobe. 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 She was seen by another SUPERVISOR PRODUCTION DEPARTMENT at this facility (Martha Lunsford, [place] ) on 05/10/24 for an assessment of cognition and language before discharging home on 05/11 with caregiver assistance 5 days/week. At the time of her inpatient cognitive- language assessment, the [facility] Mental Status examination (SLUMS) and the Quick Aphasia Batetry (QAB were administered). On the SLUMS (which measures various domains of cognition including attention, memory, and orientation), Janet scored a 7 out of 30, which is indicative of moderate-severe impairment in cognition. On the QAB, Janet scored an overall score of 7.40-10.00, indicative of moderate impairment in language skills. It was recommended that Janet discharge home with her caregiver, Milady, who manages IADLs and assists with most ADLs during the week. Milady reported that the pt's family member Don also helps with Janet's IADLs. Since discharge from the hospital, pt and caregiver state that Janet's language has improved, but Janet also states that she is more aware of her speech/language errors, which has caused increased frustration. She also is having some remaining difficulties with memory/ cognition. 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 Vikas was seen by [facility] speech therapy for one visit, but has not received any other speech therapy since her stroke. She is also receiving physical therapy at this facility twice per week. _ Since initial evaluation, Janet has been attending cognitive linguistic therapy with SUPERVISOR PRODUCTION DEPARTMENT at this clinic for 10 visits and has made good progress toward her short term and long-term goals. Throughout the course of therapy, Janet's specific cognitive/memory needs have become more clear and treatment has focused on developing compensatory strategies to remediate memory concerns, including the use of external aids and the use of spaced retrieval training and errorless learning to memorize needed information such as names of people/pets and locations of important items. Subjective Identification Type Name Chief Complaint(s) Language,Cognitive Objective Short Term Goals 1. Janet will complete recall tasks of names of family/pets with 80% accuracy or more following an errorless learning session to review target names. 10/04/24: Continue goal. Janet is 90% accurate with pet name recall as of last data collection, but family names are a remaining target. 2. Janet will accurately state location of dedicated calendar (based on trained spaced retrieval phrase) in 80% of probes independently. 10/04/24: Continue goal. Janet fluctuates in accuracy on this goal. She will benefit from retraining with spaced retrieval technique. 3. Janet will benefit from education re lifestyle factors for brain and cognitive health, including sleep, nutrition, socialization, exercise, etc. 10/04/24: Ongoing goal, continue. DISCONTINUED/COMPLETED GOALS: 1. Janet will complete confrontation naming tasks for 2 to 3-syllable words with 90 % accuracy given orthographic cues. (Goal met) 2. Janet will produce a minimum of 4 different features when presented with a target word using semantic feature analysis (SFA), given minimal verbal prompts, with 75% accuracy. (Goal met) 3. Janet and caregivers/family will benefit from education in home/carryover activities for aphasia rehabilitation. (Goal met) 4. Janet will complete a re- assessment of cognition to further guide POC r/t cognition/memory. (Discontinue ) Custodial Goals 1. Janet will accurately recall names of family/pets with 80% accuracy independently given random probes (not preceded by errorless learning). 2. Janet will accurately recall scheduled daily activities (e .g. appointments) independently in 80% of probes . DISCONTINUED/COMPLETED GOALS: Janet will complete confrontation naming tasks for 2 to 3-syllable words with 80 % accuracy without the need for SUPERVISOR PRODUCTION DEPARTMENT cues. (Goal met) Janet will increase her score on the QAB to an overall score of at least 8.9/10.00 ( consistent with no aphasia). ( Goal met) Treatment Activities Tx activities this reporting period have included: -Spaced retrieval training for functional learned phrase (If I need to check my calendar, I'll look in the kitchen by the phone) -Errorless learning trials of pet names with immediate recall practice -Systematic instruction in functional multi-step sequence (calculating a discount on calculator) -Training in circumlocution/ description strategy for word finding -Education in lifestyle factors r/t cognition including sleep, mental health , socialization Assessment Patient Response to Treatment Good Rehab Potential Good Impairments Identified Expressive language,Receptive language,Cognitive communication Progress Towards Goals Good Progress Assessment of Overall Progress Improving Assessment of Improvement As of last data collection, pt was able to recall pets' names with 90% accuracy after an errorless learning session. This has not yet been targeted with names of family members. Janet continues to have difficulty recalling the location of her dedicated calendar, fluctuating session to session around 50% accuracy with this task. She would benefit from further spaced retrieval training for this recall phrase. Janet has been participative with education re lifestyle factors and home strategies related to cognition, including working metacognitive strategies for positive self-talk. She has expressed understanding of need to increase nightly sleep , but has had difficulty actually making this happen. She will continue to benefit from ongoing education re sleep, socialization, maintaining independence (use it or lose it), etc. as related to cognitive function. Reviewed with Patient Progress Being Made Patient/Caregiver Understanding Good Plan Amount of Therapy Recommended 2-3 Months Frequency of Treatment Twice a Week Length of Session 30 Minutes Therapeutic Contents Auditory Comprehension, Cognitive-Linguistic Training, Expressive Language Training Provided Patient/Caregiver Instruction Plan of Care Visit Care Team Role Provider Type HAMZAH Navas Family Provider Advanced Cook Enchilada Specialty: Family Practice Address: Email: [email or web address] Nabor Starkey MD Attending Provider Physician Primary Care Provider Referring Provider Specialty: Family Practice Address: [address] [place] [address], [facility] Email: [email or web address]
--- NOTE | 2024-10-09 16:03 | ST.OPTN ---
Visit Care Team Role Provider Type HAMZAH Navas Family Provider Advanced Civil Manager Address: Nabor Starkey MD Attending Provider Physician Primary Care Provider Referring Provider Address: [address] [place] [address], [id number] MARKER MAKER Treatment Note MARKER MAKER Treatment Note Start: 06/25/24 13:43 Freq: Status: Active Protocol: Document 10/09/24 15:53 SS (Rec: 10/09/24 16:03 SS [id number]) Speech Pathology Treatment Note Session Time Visit Start Time 11:30 Visit Stop Time 12:00 Total Visit Minutes 30 Visit Information Visit Number 21 Plan of Care Dates 08/14/24-10/15/23 Insurance Information Medicare Setting Treatment Setting Outpatient Care Visit Type Note Type Treatment Note Next Note Type Next Note Type Treatment Note General Information Patient History Janet carlton is a 79 year old female who presented to this clinic for an outpatient evaluation of speech-language and cognition secondary to a recent stroke which resulted in expressive aphasia. She was admitted to ED at this hospital on 05/09/24 with MRI indicating acute small focal infarct in the posterior medial left temporal lobe. 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 She was seen by another MARKER MAKER at this facility (Martha Lunsford, [place] ) on 05/10/24 for an assessment of cognition and language before discharging home on 05/11 with caregiver assistance 5 days/week. At the time of her inpatient cognitive- language assessment, the [facility] Mental Status examination (SLUMS) and the Quick Aphasia Batetry (QAB were administered). On the SLUMS (which measures various domains of cognition including attention, memory, and orientation), Janet scored a 7 out of 30, which is indicative of moderate-severe impairment in cognition. On the QAB, Janet scored an overall score of 7.40-10.00, indicative of moderate impairment in language skills. It was recommended that Janet discharge home with her caregiver, Milady, who manages IADLs and assists with most ADLs during the week. Summer reported that the pt's family member Don also helps with Janet's IADLs. Since discharge from the hospital, pt and caregiver state that Janet's language has improved, but Janet also states that she is more aware of her speech/language errors, which has caused increased frustration. She also is having some remaining difficulties with memory/ cognition. 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 Vikas was seen by [facility] speech therapy for one visit, but has not received any other speech therapy since her stroke. She is also receiving physical therapy at this facility twice per week. _ Since initial evaluation, Janet has been attending cognitive linguistic therapy with MARKER MAKER at this clinic for 10 visits and has made good progress toward her short term and long-term goals. Throughout the course of therapy, Janet's specific cognitive/memory needs have become more clear and treatment has focused on developing compensatory strategies to remediate memory concerns, including the use of external aids and the use of spaced retrieval training and errorless learning to memorize needed information such as names of people/pets and locations of important items. Subjective Identification Type Name Chief Complaint(s) Language,Cognitive Objective Short Term Goals 1. Janet will complete recall tasks of names of family/pets with 80% accuracy or more following an errorless learning session to review target names. 10/04/24: Continue goal. Janet is 90% accurate with pet name recall as of last data collection, but family names are a remaining target. 2. Janet will accurately state location of dedicated calendar (based on trained spaced retrieval phrase) in 80% of probes independently. 10/04/24: Continue goal. Janet fluctuates in accuracy on this goal. She will benefit from retraining with spaced retrieval technique. 3. Janet will benefit from education re lifestyle factors for brain and cognitive health, including sleep, nutrition, socialization, exercise, etc. 10/04/24: Ongoing goal, continue. DISCONTINUED/COMPLETED GOALS: 1. Janet will complete confrontation naming tasks for 2 to 3-syllable words with 90 % accuracy given orthographic cues. (Goal met) 2. Janet will produce a minimum of 4 different features when presented with a target word using semantic feature analysis (SFA), given minimal verbal prompts, with 75% accuracy. (Goal met) 3. Janet and caregivers/family will benefit from education in home/carryover activities for aphasia rehabilitation. (Goal met) 4. Janet will complete a re- assessment of cognition to further guide POC r/t cognition/memory. (Discontinue ) Information Support Project Manager Goals 1. Janet will accurately recall names of family/pets with 80% accuracy independently given random probes (not preceded by errorless learning). 2. Janet will accurately recall scheduled daily activities (e .g. appointments) independently in 80% of probes . DISCONTINUED/COMPLETED GOALS: Janet will complete confrontation naming tasks for 2 to 3-syllable words with 80 % accuracy without the need for MARKER MAKER cues. (Goal met) Janet will increase her score on the QAB to an overall score of at least 8.9/10.00 ( consistent with no aphasia). ( Goal met) Treatment Activities Review of spaced retrieval phrase trained in previous sessions. Errorless learning of pet names followed by recall activity for pet names. Assessment Patient Response to Treatment Good Rehab Potential Good Impairments Identified Expressive language,Receptive language,Cognitive communication Progress Towards Goals Good Progress Assessment of Overall Progress Improving Assessment of Improvement Pt recalled trained spaced retrieval phrase for placement of calendar (in the kitchen by the phone) at 10-minute delay accurately this session after initial review with MARKER MAKER of target phrase, though benfitted from review at 20- minute delay. Pt and caregivers reported that pt has been able to reference calendar more often throughout the day, but not yet consistently, and does defer to asking other people about the events of the day rather than reviewing calendar. Following errorless learning trials with pictures of pt pets, pt was able to recall names of pets with 75% accuracy independently today. Accuracy has likely decreased from prior sessions as this activity has not been targeted in recent sessions. Plan to continue with errorless learning followed by recall for pet and family/friends names. Encouraged pt to bring in pictures of family members to use as stimuli for errorless learning/recall activity, which she and caregiver were agreeable to. POC completed today and sent to PCP as it is expiring on 06/29. Reviewed with Patient Progress Being Made Patient/Caregiver Understanding Good Plan Amount of Therapy Recommended 2-3 Months Frequency of Treatment Twice a Week Length of Session 30 Minutes Therapeutic Contents Auditory Comprehension, Cognitive-Linguistic Training, Expressive Language Training Provided Patient/Caregiver Instruction Plan of Care
--- NOTE | 2024-10-09 16:03 | ST.OPPOC ---
Physical, Occupational & Speech Therapy At [facility] Visit Care Team Role Provider Type HAMZAH Navas Family Provider Advanced Steeler Address: Nabor Starkey MD Attending Provider Physician Primary Care Provider Referring Provider Address: [address] [place] [address], [id number] Speech Pathology Plan of Care Plan of Care Dates 10/09/24-01/06/25 Referring Provider Nabor Starkey Patient History Janet carlton is a 79 year old female who presented to this clinic for an outpatient evaluation of speech-language and cognition secondary to a recent stroke which resulted in expressive aphasia. She was admitted to ED at this hospital on 05/09/24 with MRI indicating acute small focal infarct in the posterior medial left temporal lobe. 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 She was seen by another HOME ECONOMIST at this facility ( Martha Lunsford, LOGAN) on 05/10/24 for an assessment of cognition and language before discharging home on 05/11/24 with caregiver assistance 5 days/week. At the time of her inpatient cognitive-language assessment, the [facility] Mental Status examination (SLUMS) and the Quick Aphasia Batetry (QAB were administered). On the SLUMS (which measures various domains of cognition including attention, memory, and orientation), Janet scored a 7 out of 30, which is indicative of moderate-severe impairment in cognition. On the QAB, Janet scored an overall score of 7.40-10 .00, indicative of moderate impairment in language skills. It was recommended that Janet discharge home with her caregiver, Milady, who manages IADLs and assists with most ADLs during the week. Milady reported that the pt's family member Don also helps with Janet's IADLs. Since discharge from the hospital, pt and caregiver state that Janet's language has improved, but Janet also states that she is more aware of her speech/language errors, which has caused increased frustration. She also is having some remaining difficulties with memory/ cognition. 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 Vikas was seen by [facility] speech therapy for one visit, but has not received any other speech therapy since her stroke. She is also receiving physical therapy at this facility twice per week. Since initial evaluation, Janet has been attending cognitive linguistic therapy with HOME ECONOMIST at this clinic for 10 visits and has made good progress toward her short term and long-term goals. Throughout the course of therapy, Janet's specific cognitive/memory needs have become more clear and treatment has focused on developing compensatory strategies to remediate memory concerns, including the use of external aids and the use of spaced retrieval training and errorless learning to memorize needed information such as names of people/pets and locations of important items. Impairments Identified Expressive language,Receptive language,Cognitive communication Progress Towards Goals Good Progress Self-awareness of Cognitive- Situational awareness (re Communication Deficits General Tasks and Demands Mild Household Tasks Mild Interpersonal Interactions Moderate Community Moderate MBS Comments Oropharyngeal dysphagia with reduced OM strength . Mastication efficiency compromised due to poor dentition. Laryngeal penetration was noted as well as esophageal retention, narrowing and retrograde flow near mid chest. Referral to GI is recommended. Pt noted she has had EGD many years ago. Additionally she has not had GERD tretment for many years (per pt's report.) Recommended Referrals GI Consult Short Term Goals 1. Janet will complete recall tasks of names of family/pets with 80% accuracy or more following an errorless learning session to review target names. 10/04/24: Continue goal. Janet is 90% accurate with pet name recall as of last data collection, but family names are a remaining target. 2. Janet will accurately state location of dedicated calendar (based on trained spaced retrieval phrase) in 80% of probes independently . 10/04/24: Continue goal. Janet fluctuates in accuracy on this goal. She will benefit from retraining with spaced retrieval technique. 3. Janet will benefit from education re lifestyle factors for brain and cognitive health, including sleep, nutrition, socialization, exercise, etc. 10/04/24: Ongoing goal, continue. DISCONTINUED/COMPLETED GOALS: 1. Janet will complete confrontation naming tasks for 2 to 3-syllable words with 90% accuracy given orthographic cues. (Goal met) 2. Janet will produce a minimum of 4 different features when presented with a target word using semantic feature analysis (SFA), given minimal verbal prompts, with 75% accuracy. (Goal met) 3. Janet and caregivers/family will benefit from education in home/carryover activities for aphasia rehabilitation. (Goal met) 4. Janet will complete a re-assessment of cognition to further guide POC r/t cognition/ memory. (Discontinue) Lead Press Operator Goals 1. Janet will accurately recall names of family/ pets with 80% accuracy independently given random probes (not preceded by errorless learning). 2. Janet will accurately recall scheduled daily activities (e.g. appointments) independently in 80% of probes. DISCONTINUED/COMPLETED GOALS: Janet will complete confrontation naming tasks for 2 to 3-syllable words with 80% accuracy without the need for HOME ECONOMIST cues. (Goal met) Janet will increase her score on the QAB to an overall score of at least 8.9/10.00 (consistent with no aphasia). (Goal met) Comment: Electronically Signed by: LOGAN Aguiar 10/09/24 [id number] If you are in agreement with this Plan of Care, please return a signed and dated copy. I have reviewed this Plan of Care and certify that the skilled therapy services above are required to meet the patient?s needs. Physician Signature Date Printed Name and Credentials Clinical Instructor Signature Printed Name and Credentials
--- NOTE | 2024-10-16 13:27 | ST.OPTN ---
Visit Care Team Role Provider Type HAMZAH Navas Family Provider Advanced Building Official Address: Nabor Starkey MD Attending Provider Physician Primary Care Provider Referring Provider Address: [address] [place] [address], [id number] VIDEO GAME ANIMATOR Treatment Note VIDEO GAME ANIMATOR Treatment Note Start: 06/25/24 13:43 Freq: Status: Active Protocol: Document 10/16/24 13:06 SS (Rec: 10/16/24 13:27 SS [id number]) Speech Pathology Treatment Note Session Time Visit Start Time 11:30 Visit Stop Time 12:10 Total Visit Minutes 40 Visit Information Visit Number 22 Plan of Care Dates 10/09/24-01/06/25 Insurance Information [facility] Setting Treatment Setting Outpatient Care Visit Type Note Type Treatment Note Next Note Type Next Note Type Treatment Note General Information Patient History Janet carlton is a 79 year old female who presented to this clinic for an outpatient evaluation of speech-language and cognition secondary to a recent stroke which resulted in expressive aphasia. She was admitted to ED at this hospital on 05/09/24 with MRI indicating acute small focal infarct in the posterior medial left temporal lobe. 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 She was seen by another VIDEO GAME ANIMATOR at this facility (Martha Lunsford, [facility] ) on 05/10/24 for an assessment of cognition and language before discharging home on 05/11 with caregiver assistance 5 days/week. At the time of her inpatient cognitive- language assessment, the [employer] Mental Status examination (SLUMS) and the Quick Aphasia Batetry (QAB were administered). On the SLUMS (which measures various domains of cognition including attention, memory, and orientation), Janet scored a 7 out of 30, which is indicative of moderate-severe impairment in cognition. On the QAB, Janet scored an overall score of 7.40-10.00, indicative of moderate impairment in language skills. It was recommended that Janet discharge home with her caregiver, Milady, who manages IADLs and assists with most ADLs during the week. Summer reported that the pt's family member Don also helps with Janet's IADLs. Since discharge from the hospital, pt and caregiver state that Janet's language has improved, but Janet also states that she is more aware of her speech/language errors, which has caused increased frustration. She also is having some remaining difficulties with memory/ cognition. 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 Vikas was seen by [facility] speech therapy for one visit, but has not received any other speech therapy since her stroke. She is also receiving physical therapy at this facility twice per week. _ Since initial evaluation, Janet has been attending cognitive linguistic therapy with VIDEO GAME ANIMATOR at this clinic for 10 visits and has made good progress toward her short term and long-term goals. Throughout the course of therapy, Janet's specific cognitive/memory needs have become more clear and treatment has focused on developing compensatory strategies to remediate memory concerns, including the use of external aids and the use of spaced retrieval training and errorless learning to memorize needed information such as names of people/pets and locations of important items. Subjective Identification Type Name Observations/Patient Presentation Pt arrived to the session on time with her caregiver who did not accompany her to the session. She was engaged and motivated to participate in all session activities. Chief Complaint(s) Language,Cognitive Objective Short Term Goals 1. Janet will complete recall tasks of names of family/pets with 80% accuracy or more following an errorless learning session to review target names. 10/04/24: Continue goal. Janet is 90% accurate with pet name recall as of last data collection, but family names are a remaining target. 2. Janet will accurately state location of dedicated calendar (based on trained spaced retrieval phrase) in 80% of probes independently. 10/04/24: Continue goal. Janet fluctuates in accuracy on this goal. She will benefit from retraining with spaced retrieval technique. 3. Janet will benefit from education re lifestyle factors for brain and cognitive health, including sleep, nutrition, socialization, exercise, etc. 1/30/25: Ongoing goal, continue. DISCONTINUED/COMPLETED GOALS: 1. Janet will complete confrontation naming tasks for 2 to 3-syllable words with 90 % accuracy given orthographic cues. (Goal met) 2. Janet will produce a minimum of 4 different features when presented with a target word using semantic feature analysis (SFA), given minimal verbal prompts, with 75% accuracy. (Goal met) 3. Janet and caregivers/family will benefit from education in home/carryover activities for aphasia rehabilitation. (Goal met) 4. Janet will complete a re- assessment of cognition to further guide POC r/t cognition/memory. (Discontinue ) Nursing Home Goals 1. Janet will accurately recall names of family/pets with 80% accuracy independently given random probes (not preceded by errorless learning). 2. Janet will accurately recall scheduled daily activities (e .g. appointments) independently in 80% of probes . DISCONTINUED/COMPLETED GOALS: Janet will complete confrontation naming tasks for 2 to 3-syllable words with 80 % accuracy without the need for VIDEO GAME ANIMATOR cues. (Goal met) Janet will increase her score on the QAB to an overall score of at least 8.9/10.00 ( consistent with no aphasia). ( Goal met) Treatment Activities Implemented Spaced Retrieval Therapy, an evidenced based approach targeting recall of important information, with errorless learning and use of association as an internal memory strategy to recall names of pt?s caregiver and pets. Recalling an answer over increasing intervals of time helps to encode the information in terminal computer operator memory. It is designed to maximize the amount of successful responses, so if there is an error, training begins again at the last interval of time that produced a successful response. Discussed progress with pt at the end of the session and reviewed home practice. Assessment Patient Response to Treatment Good Rehab Potential Good Impairments Identified Expressive language,Receptive language,Cognitive communication Progress Towards Goals Good Progress Assessment of Overall Progress Improving Assessment of Improvement At the beginning of the session, assisted pt in identifying associations for each of the names she is working on recalling (e.g., ? it?s my favorite time of the year? for caregiver?s name Summer). Spaced retrieval was used to assist recall of names over increasingly longer delay with the following lead questions and responses: ? Lead question: What are your cats? names? What is your caregiver?s name? ? Target response: Names of pets and caregiver For caregiver?s name, the pt recalled the target response up to 10-minute delay. After about 10-minutes, she required min verbal cueing to recall previously established association. For pets? names, the pt recalled 4/4 names given up to 3-minute delay. After about 3-minutes, she was able to recall the names with 50-75% accuracy and required min verbal cueing to recall previously established associations. However, she was able to recall the associations without difficulty today, which is good progress. Plan to continue spaced retrieval practice with errorless learning and association next session to improve terminal computer operator retention of names. Pt will benefit from continued systematic training with graded cueing and emphasis on errorless learning to increase independence with this task. Reviewed with Patient Progress Being Made Patient/Caregiver Understanding Good Plan Amount of Therapy Recommended 2-3 Months Frequency of Treatment Twice a Week Length of Session 30 Minutes Therapeutic Contents Auditory Comprehension, Cognitive-Linguistic Training, Expressive Language Training Provided Patient/Caregiver Instruction Home Exercise Program, Questions/Concerns Therapy Recommendations Continue with Current Program
--- NOTE | 2024-10-26 16:08 | ST.OPTN ---
Visit Care Team Role Provider Type Yvonne CalabreseHAMZAH Family Provider Non-Staff Address: [address] [place] [address], [id number] Nabor Starkey MD Attending Provider Physician Primary Care Provider Referring Provider Address: [address] [place] [address], [id number] SLOT SHIFT SUPERVISOR Treatment Note SLOT SHIFT SUPERVISOR Treatment Note Start: 06/25/24 13:43 Freq: Status: Active Protocol: Document 10/26/24 15:54 SS (Rec: 10/26/24 16:08 SS [id number]) Speech Pathology Treatment Note Session Time Visit Start Time 11:45 Visit Stop Time 12:10 Total Visit Minutes 25 Visit Information Visit Number 23 Plan of Care Dates 10/09/24-01/06/25 Insurance Information [facility] Setting Treatment Setting Outpatient Care Visit Type Note Type Treatment Note Next Note Type Next Note Type Treatment Note General Information Patient History Janet carlton is a 79 year old female who presented to this clinic for an outpatient evaluation of speech-language and cognition secondary to a recent stroke which resulted in expressive aphasia. She was admitted to ED at this hospital on 05/09/24 with MRI indicating acute small focal infarct in the posterior medial left temporal lobe. 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 She was seen by another SLOT SHIFT SUPERVISOR at this facility ([facility], [facility] ) on 05/10/24 for an assessment of cognition and language before discharging home on 05/11 with caregiver assistance 5 days/week. At the time of her inpatient cognitive- language assessment, the [employer] Mental Status examination (SLUMS) and the Quick Aphasia Batetry (QAB were administered). On the SLUMS (which measures various domains of cognition including attention, memory, and orientation), Janet scored a 7 out of 30, which is indicative of moderate-severe impairment in cognition. On the QAB, Janet scored an overall score of 7.40-10.00, indicative of moderate impairment in language skills. It was recommended that Janet discharge home with her caregiver, Milady, who manages IADLs and assists with most ADLs during the week. Milady reported that the pt's family member Don also helps with Janet's IADLs. Since discharge from the hospital, pt and caregiver state that Janet's language has improved, but Janet also states that she is more aware of her speech/language errors, which has caused increased frustration. She also is having some remaining difficulties with memory/ cognition. 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 Vikas was seen by [facility] speech therapy for one visit, but has not received any other speech therapy since her stroke. She is also receiving physical therapy at this facility twice per week. _ Since initial evaluation, Janet has been attending cognitive linguistic therapy with SLOT SHIFT SUPERVISOR at this clinic for 10 visits and has made good progress toward her short term and long-term goals. Throughout the course of therapy, Janet's specific cognitive/memory needs have become more clear and treatment has focused on developing compensatory strategies to remediate memory concerns, including the use of external aids and the use of spaced retrieval training and errorless learning to memorize needed information such as names of people/pets and locations of important items. Subjective Identification Type Name Observations/Patient Presentation Pt arrived to the session 15 minutes late with her caregiver who accompanied her to the session. Session duration limited today as pt arrived to the session late. She was engaged and motivated to participate in all session activities. Chief Complaint(s) Language,Cognitive Objective Short Term Goals 1. Janet will complete recall tasks of names of family/pets with 80% accuracy or more following an errorless learning session to review target names. 10/04/24: Continue goal. Janet is 90% accurate with pet name recall as of last data collection, but family names are a remaining target. 2. Janet will accurately state location of dedicated calendar (based on trained spaced retrieval phrase) in 80% of probes independently. 10/04/24: Continue goal. Janet fluctuates in accuracy on this goal. She will benefit from retraining with spaced retrieval technique. 3. Janet will benefit from education re lifestyle factors for brain and cognitive health, including sleep, nutrition, socialization, exercise, etc. 10/04/24: Ongoing goal, continue. DISCONTINUED/COMPLETED GOALS: 1. Janet will complete confrontation naming tasks for 2 to 3-syllable words with 90 % accuracy given orthographic cues. (Goal met) 2. Janet will produce a minimum of 4 different features when presented with a target word using semantic feature analysis (SFA), given minimal verbal prompts, with 75% accuracy. (Goal met) 3. [employer] and caregivers/family will benefit from education in home/carryover activities for aphasia rehabilitation. (Goal met) 4. Janet will complete a re- assessment of cognition to further guide POC r/t cognition/memory. (Discontinue ) Tailings Man Goals 1. Janet will accurately recall names of family/pets with 80% accuracy independently given random probes (not preceded by errorless learning). 2. Janet will accurately recall scheduled daily activities (e .g. appointments) independently in 80% of probes . DISCONTINUED/COMPLETED GOALS: Janet will complete confrontation naming tasks for 2 to 3-syllable words with 80 % accuracy without the need for SLOT SHIFT SUPERVISOR cues. (Goal met) Janet will increase her score on the QAB to an overall score of at least 8.9/10.00 ( consistent with no aphasia). ( Goal met) Treatment Activities Implemented use of step-by- step visual aid for making phone calls as pt and her caregiver expressed that she has been having increased difficulty with making calls and it has been affecting her ability to call friends, family members, and schedule appointments. Implemented principles of errorless learning with task. SLOT SHIFT SUPERVISOR provided graded cueing to reduce error rate during new learning. Provided visual aid at end of session for home practice with assistance from caregiver. Assessment Patient Response to Treatment Good Rehab Potential Good Impairments Identified Expressive language,Receptive language,Cognitive communication Progress Towards Goals Good Progress,Slow Progress Assessment of Overall Progress Improving Assessment of Improvement During training in multi-step sequence, pt benefited from written steps as visual aid while completing sequence on her phone. She benefitted from mod verbal cues throughout the task to remember to slow down and follow the sequence one step at a time. Pt tended to try to remember the whole sequence at once without looking at the visual aid. Focused on explicitly instructing today that she should look at one step, then complete just that one step before moving on. Pt was able to independently completed 2/ 4 steps with 85% accuracy today. She was unable to complete all 4 steps without additional cueing. She benefited from continuous cueing to refer to visual aid rather than try to remember the entire sequence. Pt will benefit from continued systematic training with graded cueing and emphasis on errorless learning to increase independence with making phone calls as it is an integral activity in her daily life. Reviewed with Patient Progress Being Made Patient/Caregiver Understanding Good Plan Amount of Therapy Recommended 2-3 Months Frequency of Treatment Twice a Week Length of Session 30 Minutes Therapeutic Contents Auditory Comprehension, Cognitive-Linguistic Training, Expressive Language Training Provided Patient/Caregiver Instruction Home Exercise Program, Questions/Concerns Therapy Recommendations Continue with Current Program
--- NOTE | 2024-10-30 13:45 | ST.OPTN ---
Visit Care Team Role Provider Type Yvonne HAMZAH Calabrese Family Provider Non-Staff Address: [address] [place] [address], [id number] Nabor Starkey MD Attending Provider Physician Primary Care Provider Referring Provider Address: [address] [place] [address], [id number] STITCHER AROUND Treatment Note STITCHER AROUND Treatment Note Start: 06/25/24 13:43 Freq: Status: Active Protocol: Document 10/30/24 13:37 SS (Rec: 10/30/24 13:44 SS [id number]) Speech Pathology Treatment Note Session Time Visit Start Time 11:35 Visit Stop Time 12:05 Total Visit Minutes 30 Visit Information Visit Number 24 Plan of Care Dates 10/09/24-01/06/25 Insurance Information [facility] Setting Treatment Setting Outpatient Care Visit Type Note Type Treatment Note Next Note Type Next Note Type Treatment Note General Information Patient History Janet carlton is a 79 year old female who presented to this clinic for an outpatient evaluation of speech-language and cognition secondary to a recent stroke which resulted in expressive aphasia. She was admitted to ED at this hospital on 05/09/24 with MRI indicating acute small focal infarct in the posterior medial left temporal lobe. 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 She was seen by another STITCHER AROUND at this facility ([facility], [place] ) on 05/10/24 for an assessment of cognition and language before discharging home on 05/11 with caregiver assistance 5 days/week. At the time of her inpatient cognitive- language assessment, the [employer] Mental Status examination (SLUMS) and the Quick Aphasia Batetry (QAB were administered). On the SLUMS (which measures various domains of cognition including attention, memory, and orientation), Janet scored a 7 out of 30, which is indicative of moderate-severe impairment in cognition. On the QAB, Janet scored an overall score of 7.40-10.00, indicative of moderate impairment in language skills. It was recommended that Janet discharge home with her caregiver, Milady, who manages IADLs and assists with most ADLs during the week. Milady reported that the pt's family member Don also helps with Janet's IADLs. Since discharge from the hospital, pt and caregiver state that Janet's language has improved, but Janet also states that she is more aware of her speech/language errors, which has caused increased frustration. She also is having some remaining difficulties with memory/ cognition. 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 Vikas was seen by [facility] speech therapy for one visit, but has not received any other speech therapy since her stroke. She is also receiving physical therapy at this facility twice per week. _ Since initial evaluation, Janet has been attending cognitive linguistic therapy with STITCHER AROUND at this clinic for 10 visits and has made good progress toward her short term and long-term goals. Throughout the course of therapy, Janet's specific cognitive/memory needs have become more clear and treatment has focused on developing compensatory strategies to remediate memory concerns, including the use of external aids and the use of spaced retrieval training and errorless learning to memorize needed information such as names of people/pets and locations of important items. Subjective Identification Type Name Observations/Patient Presentation Pt arrived to the session late with her caregiver who accompanied her to the session . She was engaged and motivated to participate in all session activities. Chief Complaint(s) Language,Cognitive Objective Short Term Goals 1. Janet will complete recall tasks of names of family/pets with 80% accuracy or more following an errorless learning session to review target names. 10/04/24: Continue goal. Janet is 90% accurate with pet name recall as of last data collection, but family names are a remaining target. 2. Janet will accurately state location of dedicated calendar (based on trained spaced retrieval phrase) in 80% of probes independently. 10/04/24: Continue goal. Janet fluctuates in accuracy on this goal. She will benefit from retraining with spaced retrieval technique. 3. Janet will benefit from education re lifestyle factors for brain and cognitive health, including sleep, nutrition, socialization, exercise, etc. 10/04/24: Ongoing goal, continue. DISCONTINUED/COMPLETED GOALS: 1. Janet will complete confrontation naming tasks for 2 to 3-syllable words with 90 % accuracy given orthographic cues. (Goal met) 2. Janet will produce a minimum of 4 different features when presented with a target word using semantic feature analysis (SFA), given minimal verbal prompts, with 75% accuracy. (Goal met) 3. Janet and caregivers/family will benefit from education in home/carryover activities for aphasia rehabilitation. (Goal met) 4. Janet will complete a re- assessment of cognition to further guide POC r/t cognition/memory. (Discontinue ) Correction Goals 1. Janet will accurately recall names of family/pets with 80% accuracy independently given random probes (not preceded by errorless learning). 2. Janet will accurately recall scheduled daily activities (e .g. appointments) independently in 80% of probes . DISCONTINUED/COMPLETED GOALS: Janet will complete confrontation naming tasks for 2 to 3-syllable words with 80 % accuracy without the need for STITCHER AROUND cues. (Goal met) Janet will increase her score on the QAB to an overall score of at least 8.9/10.00 ( consistent with no aphasia). ( Goal met) Treatment Activities Review of spaced retrieval phrase trained in previous sessions. Errorless learning of pet names followed by recall activity for pet names. While pt has been making progress with these goals, she and her caregiver reported regression with these treatment activities as they have not been addressed in recent sessions. Recommended pt bring phone to next session to review use of visual aid introduced last session for making phone calls. Assessment Patient Response to Treatment Good Rehab Potential Good Impairments Identified Expressive language,Receptive language,Cognitive communication Progress Towards Goals Good Progress,Slow Progress Assessment of Overall Progress Improving Assessment of Improvement Pt recalled trained spaced retrieval phrase at 5, 10, and 20-minute intervals accurately this session after initial review with STITCHER AROUND of target phrase. Pt was able to recall some of upcoming scheduled appointments and events accurately, but with increased difficulty noted today. Pt may benefit from use of portable calendar as external memory aid, though was reluctant to initiate this . May discuss further in next session. Following errorless learning trials with pictures of pt pets, pt was able to recall names of pets with 75% accuracy independently today, which is a decrease from last sessions, when she could recall them with about 90% accuracy. Plan to continue with errorless learning followed by recall. Encouraged pt to bring in pictures of family members to use as stimuli for errorless learning/recall activity as she continues to report difficulty with recalling names. Also recommended she bring phone to next session in order to review use of visual aid for making phone calls. Pt agreeable to these recommendations. Additionally, she was agreeable to HEP targeting pet name recall and use of calendar to improve recall of appointments/events. Reviewed with Patient Progress Being Made Patient/Caregiver Understanding Good Plan Amount of Therapy Recommended 2-3 Months Frequency of Treatment Twice a Week Length of Session 30 Minutes Therapeutic Contents Auditory Comprehension, Cognitive-Linguistic Training, Expressive Language Training Provided Patient/Caregiver Instruction Home Exercise Program, Questions/Concerns Therapy Recommendations Continue with Current Program
--- NOTE | 2024-11-06 13:41 | ST.OPTN ---
Visit Care Team Role Provider Type Yvonne CalabreseHAMZAH Family Provider Non-Staff Address: [address] [place] [address], [id number] Nabor Starkey MD Attending Provider Physician Primary Care Provider Referring Provider Address: [address] [place] [address], [id number] SUB ASSEMBLY TEAM WORKER Treatment Note SUB ASSEMBLY TEAM WORKER Treatment Note Start: 06/25/24 13:43 Freq: Status: Active Protocol: Document 11/06/24 13:23 SS (Rec: 11/06/24 13:41 SS [id number]) Speech Pathology Treatment Note Session Time Visit Start Time 11:38 Visit Stop Time 12:08 Total Visit Minutes 30 Visit Information Visit Number 25 Plan of Care Dates 10/09/24-01/06/25 Insurance Information [facility] Setting Treatment Setting Outpatient Care Visit Type Note Type Treatment Note Next Note Type Next Note Type Treatment Note General Information Patient History Janet carlton is a 79 year old female who presented to this clinic for an outpatient evaluation of speech-language and cognition secondary to a recent stroke which resulted in expressive aphasia. She was admitted to ED at this hospital on 05/09/24 with MRI indicating acute small focal infarct in the posterior medial left temporal lobe. 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 She was seen by another SUB ASSEMBLY TEAM WORKER at this facility ([facility], [facility] ) on 05/10/24 for an assessment of cognition and language before discharging home on 05/11 with caregiver assistance 5 days/week. At the time of her inpatient cognitive- language assessment, the [employer] Mental Status examination (SLUMS) and the Quick Aphasia Batetry (QAB were administered). On the SLUMS (which measures various domains of cognition including attention, memory, and orientation), Janet scored a 7 out of 30, which is indicative of moderate-severe impairment in cognition. On the QAB, Janet scored an overall score of 7.40-10.00, indicative of moderate impairment in language skills. It was recommended that Janet discharge home with her caregiver, Milady, who manages IADLs and assists with most ADLs during the week. Milady reported that the pt's family member Don also helps with Janet's IADLs. Since discharge from the hospital, pt and caregiver state that Janet's language has improved, but Janet also states that she is more aware of her speech/language errors, which has caused increased frustration. She also is having some remaining difficulties with memory/ cognition. 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 Vikas was seen by [facility] speech therapy for one visit, but has not received any other speech therapy since her stroke. She is also receiving physical therapy at this facility twice per week. _ Since initial evaluation, Janet has been attending cognitive linguistic therapy with SUB ASSEMBLY TEAM WORKER at this clinic for 10 visits and has made good progress toward her short term and long-term goals. Throughout the course of therapy, Janet's specific cognitive/memory needs have become more clear and treatment has focused on developing compensatory strategies to remediate memory concerns, including the use of external aids and the use of spaced retrieval training and errorless learning to memorize needed information such as names of people/pets and locations of important items. Subjective Identification Type Name Observations/Patient Presentation Eligio arrived to the session a little late with her caregiver who did not accompany her to the session. She was engaged and motivated to participate in all session activities. Of note, eligio has recently had a loss in the family and this significantly impacted her participation today. She had increased dififculty attending to tasks and was tearful throughout the session. She benefited from frequent encourgement today. Chief Complaint(s) Language,Cognitive Objective Short Term Goals 1. Janet will complete recall tasks of names of family/pets with 80% accuracy or more following an errorless learning session to review target names. 10/04/24: Continue goal. Janet is 90% accurate with pet name recall as of last data collection, but family names are a remaining target. 2. Janet will accurately state location of dedicated calendar (based on trained spaced retrieval phrase) in 80% of probes independently. 10/04/24: Continue goal. Janet fluctuates in accuracy on this goal. She will benefit from retraining with spaced retrieval technique. 3. Janet will benefit from education re lifestyle factors for brain and cognitive health, including sleep, nutrition, socialization, exercise, etc. 10/04/24: Ongoing goal, continue. DISCONTINUED/COMPLETED GOALS: 1. Janet will complete confrontation naming tasks for 2 to 3-syllable words with 90 % accuracy given orthographic cues. (Goal met) 2. Janet will produce a minimum of 4 different features when presented with a target word using semantic feature analysis (SFA), given minimal verbal prompts, with 75% accuracy. (Goal met) 3. Janet and caregivers/family will benefit from education in home/carryover activities for aphasia rehabilitation. (Goal met) 4. Janet will complete a re- assessment of cognition to further guide POC r/t cognition/memory. (Discontinue ) [employer] Goals 1. Janet will accurately recall names of family/pets with 80% accuracy independently given random probes (not preceded by errorless learning). 2. Janet will accurately recall scheduled daily activities (e .g. appointments) independently in 80% of probes . DISCONTINUED/COMPLETED GOALS: Janet will complete confrontation naming tasks for 2 to 3-syllable words with 80 % accuracy without the need for SUB ASSEMBLY TEAM WORKER cues. (Goal met) Janet will increase her score on the QAB to an overall score of at least 8.9/10.00 ( consistent with no aphasia). ( Goal met) Treatment Activities Initiated errorless learning of names followed by recall activity, though this was quickly discontinued given pt difficulty attending today. Assisted pt with adding contacts ofr graddaughter and caregiver to homescreen on phone as she continues to have difficulty making phone calls . This activity targeted short -term memory, simple sequencing/planning, sustained attention, and improved problem solving with use of assistive technology in order to increase pt's ability to make phone calls more independently. Assessment Patient Response to Treatment Fair Rehab Potential Fair Impairments Identified Expressive language,Receptive language,Cognitive communication Progress Towards Goals Good Progress,Slow Progress Assessment of Overall Progress Improving Assessment of Improvement SUB ASSEMBLY TEAM WORKER assisted pt in adding contacts to her home screen in order to simplify this task and modify it to be less cognitively taxing. Pt assisted SUB ASSEMBLY TEAM WORKER in locating the phone number for each contact and participated in discussion re: the purpose of adding the phone numbers to her home screen rather than navigating through multiple pages to make a phone call, which continues to be difficulty for her with use of visual aids and mod- max cueing. Once contacts were added to home screen, pt was able to call granddaughter x2 and caregiver x2 given initial prompt. Recommended she continue to practice making phone calls from home screen to promote carryover to task. Pt and caregiver were agreeable to this recommendation. Additionally, provided education re: impact of increased stress, anxiety, and poor sleep on overall cognitive function. Additionally, SUB ASSEMBLY TEAM WORKER facilitated discussion re: impact of mental health, distractions, stress, and fatigue on memory with metaphor of external factors filling the blocks in your brain that would be open for new information. Discussed functional strategies for pt to implement at this time, which pt was agreeable to. Plan to continue with errorless learning followed by recall of names in next session as well as problem- solving with use of phone. Continue at frequency of twice a week given pt progress and report. Reviewed with Patient Progress Being Made Patient/Caregiver Understanding Good Plan Amount of Therapy Recommended 2-3 Months Frequency of Treatment Twice a Week Length of Session 30 Minutes Therapeutic Contents Auditory Comprehension, Cognitive-Linguistic Training, Expressive Language Training Provided Patient/Caregiver Instruction Home Exercise Program, Questions/Concerns Therapy Recommendations Continue with Current Program
--- NOTE | 2024-11-13 13:36 | ST.OPTN ---
Visit Care Team Role Provider Type Yvonne HAMZAH Calabrese Family Provider Non-Staff Address: [address] [place] [address], [id number] Nabor Starkey MD Attending Provider Physician Primary Care Provider Referring Provider Address: [address] [place] [address], [id number] FRENCH TEACHER Treatment Note FRENCH TEACHER Treatment Note Start: 06/25/24 13:43 Freq: Status: Active Protocol: Document 11/13/24 13:25 SS (Rec: 11/13/24 13:36 SS [id number]) Speech Pathology Treatment Note Session Time Visit Start Time 11:35 Visit Stop Time 12:10 Total Visit Minutes 35 Visit Information Visit Number 26 Plan of Care Dates 10/09/24-01/06/25 Insurance Information [facility] Setting Treatment Setting Outpatient Care Visit Type Note Type Treatment Note Next Note Type Next Note Type Treatment Note General Information Patient History Janet carlton is a 79 year old female who presented to this clinic for an outpatient evaluation of speech-language and cognition secondary to a recent stroke which resulted in expressive aphasia. She was admitted to ED at this hospital on 05/09/24 with MRI indicating acute small focal infarct in the posterior medial left temporal lobe. 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 She was seen by another FRENCH TEACHER at this facility ([facility], [facility] ) on 05/10/24 for an assessment of cognition and language before discharging home on 05/11 with caregiver assistance 5 days/week. At the time of her inpatient cognitive- language assessment, the [employer] Mental Status examination (SLUMS) and the Quick Aphasia Batetry (QAB were administered). On the SLUMS (which measures various domains of cognition including attention, memory, and orientation), Janet scored a 7 out of 30, which is indicative of moderate-severe impairment in cognition. On the QAB, Janet scored an overall score of 7.40-10.00, indicative of moderate impairment in language skills. It was recommended that Janet discharge home with her caregiver, Milady, who manages IADLs and assists with most ADLs during the week. Milady reported that the pt's family member Don also helps with Janet's IADLs. Since discharge from the hospital, pt and caregiver state that Janet's language has improved, but Janet also states that she is more aware of her speech/language errors, which has caused increased frustration. She also is having some remaining difficulties with memory/ cognition. 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 Vikas was seen by [facility] speech therapy for one visit, but has not received any other speech therapy since her stroke. She is also receiving physical therapy at this facility twice per week. _ Since initial evaluation, Janet has been attending cognitive linguistic therapy with FRENCH TEACHER at this clinic for 10 visits and has made good progress toward her short term and long-term goals. Throughout the course of therapy, Janet's specific cognitive/memory needs have become more clear and treatment has focused on developing compensatory strategies to remediate memory concerns, including the use of external aids and the use of spaced retrieval training and errorless learning to memorize needed information such as names of people/pets and locations of important items. Subjective Identification Type Name Observations/Patient Presentation Pt arrived to the session a little late with her caregiver who accompanied her to the session. She was engaged and motivated to participate in all session activities. Pt continues to process the loss of a close family member and is seeing a counselor regularly. Chief Complaint(s) Language,Cognitive Objective Short Term Goals 1. Janet will complete recall tasks of names of family/pets with 80% accuracy or more following an errorless learning session to review target names. 10/04/24: Continue goal. Janet is 90% accurate with pet name recall as of last data collection, but family names are a remaining target. 2. Janet will accurately state location of dedicated calendar (based on trained spaced retrieval phrase) in 80% of probes independently. 10/04/24: Continue goal. Janet fluctuates in accuracy on this goal. She will benefit from retraining with spaced retrieval technique. 3. Janet will benefit from education re lifestyle factors for brain and cognitive health, including sleep, nutrition, socialization, exercise, etc. 10/04/24: Ongoing goal, continue. DISCONTINUED/COMPLETED GOALS: 1. Janet will complete confrontation naming tasks for 2 to 3-syllable words with 90 % accuracy given orthographic cues. (Goal met) 2. Janet will produce a minimum of 4 different features when presented with a target word using semantic feature analysis (SFA), given minimal verbal prompts, with 75% accuracy. (Goal met) 3. Janet and caregivers/family will benefit from education in home/carryover activities for aphasia rehabilitation. (Goal met) 4. Janet will complete a re- assessment of cognition to further guide POC r/t cognition/memory. (Discontinue ) Bank Accountant Goals 1. Janet will accurately recall names of family/pets with 80% accuracy independently given random probes (not preceded by errorless learning). 2. Janet will accurately recall scheduled daily activities (e .g. appointments) independently in 80% of probes . DISCONTINUED/COMPLETED GOALS: Janet will complete confrontation naming tasks for 2 to 3-syllable words with 80 % accuracy without the need for FRENCH TEACHER cues. (Goal met) Janet will increase her score on the QAB to an overall score of at least 8.9/10.00 ( consistent with no aphasia). ( Goal met) Treatment Activities Initiated use of weekly daily log to assist with recall of date and day of the week as well as scheduled appointments and other daily events as external memory aid. Both pt and her caregiver reported that with recent events, pt has had increased difficulty with attention and short-term memory. While she can recall trained phrase re: where her calendar is at home, she has significant difficulty with temporal orientation as well as recalling daily events. Her caregiver reported she has become more dependent on her and frequently needs to be reoriented and reminded of daily appointments and events. Assessment Patient Response to Treatment Good Rehab Potential Good Impairments Identified Expressive language,Receptive language,Cognitive communication Progress Towards Goals Good Progress,Slow Progress Assessment of Overall Progress Improving Assessment of Improvement Discussed daily log and purpose, including constant review of day/date, practice with written expression and reading comprehension abilities, targeting short term memory (what did we just do) as well as prospective memory (what do we have to do for tomorrow), focus attention , and train with compensatory tool. Given FRENCH TEACHER prompting, pt wrote correct date under each daily entry after FRENCH TEACHER provided Tuesday?s date. She had significant difficulty recalling times of therapy appointments as well as plan for today. She heavily relied on caregiver assist to provide this information. She was able to write information in the memory log with 65% accuracy, increasing to 100% accuracy given repetition of information and FRENCH TEACHER pointing out errors (e.g., incorrect time/day of the week, etc). She benefited from consistent positive encouragement and affirmation today as she was tearful at times. Plan to continue targeting external memory aids as well as errorless learning for recall of functional and salient information to pt?s daily life . Reviewed with Patient Progress Being Made Patient/Caregiver Understanding Good Plan Amount of Therapy Recommended 2-3 Months Frequency of Treatment Twice a Week Length of Session 30 Minutes Therapeutic Contents Auditory Comprehension, Cognitive-Linguistic Training, Expressive Language Training Provided Patient/Caregiver Instruction Home Exercise Program, Questions/Concerns Therapy Recommendations Continue with Current Program
--- NOTE | 2024-11-20 13:27 | ST.OPTN ---
Visit Care Team Role Provider Type Yvonne HAMZAH Calabrese Family Provider Non-Staff Address: [address] [place] [address], [id number] Nabor Starkey MD Attending Provider Physician Primary Care Provider Referring Provider Address: [address] [place] [address], [id number] [facility] Treatment Note [facility] Treatment Note Start: 06/25/24 13:43 Freq: Status: Active Protocol: Document 11/20/24 13:13 SS (Rec: 11/20/24 13:27 SS [id number]) Speech Pathology Treatment Note Session Time Visit Start Time 11:30 Visit Stop Time 12:05 Total Visit Minutes 35 Visit Information Visit Number 27 Plan of Care Dates 10/09/24-01/06/25 Insurance Information [facility] Setting Treatment Setting Outpatient Care Visit Type Note Type Treatment Note Next Note Type Next Note Type Treatment Note General Information Patient History Janet carlton is a 79 year old female who presented to this clinic for an outpatient evaluation of speech-language and cognition secondary to a recent stroke which resulted in expressive aphasia. She was admitted to ED at this hospital on 05/09/24 with MRI indicating acute small focal infarct in the posterior medial left temporal lobe. 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 She was seen by another [facility] at this facility ([facility], [facility] ) on 05/10/24 for an assessment of cognition and language before discharging home on 05/11 with caregiver assistance 5 days/week. At the time of her inpatient cognitive- language assessment, the [employer] Mental Status examination (SLUMS) and the Quick Aphasia Batetry (QAB were administered). On the SLUMS (which measures various domains of cognition including attention, memory, and orientation), Janet scored a 7 out of 30, which is indicative of moderate-severe impairment in cognition. On the QAB, Janet scored an overall score of 7.40-10.00, indicative of moderate impairment in language skills. It was recommended that Janet discharge home with her caregiver, Milady, who manages IADLs and assists with most ADLs during the week. Milady reported that the pt's family member Don also helps with Janet's IADLs. Since discharge from the hospital, pt and caregiver state that Janet's language has improved, but Janet also states that she is more aware of her speech/language errors, which has caused increased frustration. She also is having some remaining difficulties with memory/ cognition. 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 Vikas was seen by [facility] speech therapy for one visit, but has not received any other speech therapy since her stroke. She is also receiving physical therapy at this facility twice per week. _ Since initial evaluation, Janet has been attending cognitive linguistic therapy with [facility] at this clinic for 10 visits and has made good progress toward her short term and long-term goals. Throughout the course of therapy, Janet's specific cognitive/memory needs have become more clear and treatment has focused on developing compensatory strategies to remediate memory concerns, including the use of external aids and the use of spaced retrieval training and errorless learning to memorize needed information such as names of people/pets and locations of important items. Subjective Identification Type Name Observations/Patient Presentation Pt arrived to the session on time with her caregiver who accompanied her to the session . She was engaged and motivated to participate in all session activities. Chief Complaint(s) Language,Cognitive Objective Short Term Goals 1. Janet will complete recall tasks of names of family/pets with 80% accuracy or more following an errorless learning session to review target names. 10/04/24: Continue goal. Janet is 90% accurate with pet name recall as of last data collection, but family names are a remaining target. 2. Janet will accurately state location of dedicated calendar (based on trained spaced retrieval phrase) in 80% of probes independently. 10/04/24: Continue goal. Janet fluctuates in accuracy on this goal. She will benefit from retraining with spaced retrieval technique. 3. Janet will benefit from education re lifestyle factors for brain and cognitive health, including sleep, nutrition, socialization, exercise, etc. 10/04/24: Ongoing goal, continue. DISCONTINUED/COMPLETED GOALS: 1. Janet will complete confrontation naming tasks for 2 to 3-syllable words with 90 % accuracy given orthographic cues. (Goal met) 2. Janet will produce a minimum of 4 different features when presented with a target word using semantic feature analysis (SFA), given minimal verbal prompts, with 75% accuracy. (Goal met) 3. Janet and caregivers/family will benefit from education in home/carryover activities for aphasia rehabilitation. (Goal met) 4. Janet will complete a re- assessment of cognition to further guide POC r/t cognition/memory. (Discontinue ) Retirement Goals 1. Janet will accurately recall names of family/pets with 80% accuracy independently given random probes (not preceded by errorless learning). 2. Janet will accurately recall scheduled daily activities (e .g. appointments) independently in 80% of probes . DISCONTINUED/COMPLETED GOALS: Janet will complete confrontation naming tasks for 2 to 3-syllable words with 80 % accuracy without the need for [facility] cues. (Goal met) Janet will increase her score on the QAB to an overall score of at least 8.9/10.00 ( consistent with no aphasia). ( Goal met) Treatment Activities Continued use of weekly daily log to assist with recall of date and day of the week as well as scheduled appointments and other daily events as external memory aid. Pt continued to demonstrate good recall of trained phrase re: where her calendar is at home, but has difficulty recalling information when she is away from home. Education re: sleep as a holistic lifestyle factor and initiation of external memory aids to improve sleep habits. Assessment Patient Response to Treatment Good Rehab Potential Good Impairments Identified Expressive language,Receptive language,Cognitive communication Progress Towards Goals Good Progress,Slow Progress Assessment of Overall Progress Improving Assessment of Improvement [facility] facilitated discussion re: use of weekly memory log to increase temporal orientation and short-term recall of upcoming appointments and events. Pt reported she has been referencing weekly log intermittently though has not been able to purchase weekly equipment planner. Given intermittent prompting and information from caregiver, pt filled out weekly memory log for the upcoming week. Recommended she place it in her bag and reference it periodically when in the community, which pt was agreeable to. Pt benefited from consistent positive encouragement and affirmation today as she continued to be emotional at times. Provided education re: the importance of sleep on cognitive function and discussed pt?s current sleep habits. Pt expressed she often forgets to take her sleeping pill and only gets 5 hours of sleep a night. Provided education re: potential memory aids to assist with medication management. Pt and caregiver set an automatic text message that will be sent from caregiver to pt ever night at a set time. Pt expressed she uses MediSet successfully for all other medications. Additionally, caregiver expressed that pt has had limited carryover with name recall, and may benefit from additional strategy. Recommended pt and caregiver create visual aid with pet photos and names and place in central location in home as external aid. Pt agreeable to plan and may bring pet photos to next session to create visual aid. Plan for pt to implement memory log, automatic reminders for medication, and visual aid for pet names and discuss progress in next session. Additionally, plan to discuss progress in next session as well as update short-term and long-term goals as pt is likely to benefit more from external rather than internal strategies for memory at this time to maximize independence. Reviewed with Patient Progress Being Made Patient/Caregiver Understanding Good Plan Amount of Therapy Recommended 2-3 Months Frequency of Treatment Twice a Week Length of Session 30 Minutes Therapeutic Contents Auditory Comprehension, Cognitive-Linguistic Training, Expressive Language Training Provided Patient/Caregiver Instruction Home Exercise Program, Questions/Concerns Therapy Recommendations Continue with Current Program
--- NOTE | 2024-11-27 16:02 | ST.OPTN ---
Visit Care Team Role Provider Type Yvonne HAMZAH Calabrese Family Provider Non-Staff Address: [address] [place] [address], [id number] Nabor Starkey MD Attending Provider Physician Primary Care Provider Referring Provider Address: [address] [place] [address], [id number] PLASMA SPECIALIST Treatment Note PLASMA SPECIALIST Treatment Note Start: 06/25/24 13:43 Freq: Status: Active Protocol: Document 11/27/24 15:47 SS (Rec: 11/27/24 16:02 SS [id number]) Speech Pathology Treatment Note Session Time Visit Start Time 11:32 Visit Stop Time 12:05 Total Visit Minutes 33 Visit Information Visit Number 28 Plan of Care Dates 11/27/24-02/27/25 Insurance Information [facility] Setting Treatment Setting Outpatient Care Visit Type Note Type Treatment Note Next Note Type Next Note Type Treatment Note General Information Patient History Janet carlton is a 79 year old female who presented to this clinic for an outpatient evaluation of speech-language and cognition secondary to a recent stroke which resulted in expressive aphasia. She was admitted to ED at this hospital on 05/09/24 with MRI indicating acute small focal infarct in the posterior medial left temporal lobe. 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 She was seen by another PLASMA SPECIALIST at this facility (Martha Lunsford, LOGAN ) on 05/10/24 for an assessment of cognition and language before discharging home on 05/11 with caregiver assistance 5 days/week. At the time of her inpatient cognitive- language assessment, the [employer] Mental Status examination (SLUMS) and the Quick Aphasia Batetry (QAB were administered). On the SLUMS (which measures various domains of cognition including attention, memory, and orientation), Janet scored a 7 out of 30, which is indicative of moderate-severe impairment in cognition. On the QAB, Janet scored an overall score of 7.40-10.00, indicative of moderate impairment in language skills. It was recommended that Janet discharge home with her caregiver, Milady, who manages IADLs and assists with most ADLs during the week. Milady reported that the pt's family member Don also helps with Janet's IADLs. Since discharge from the hospital, pt and caregiver state that Janet's language has improved, but Janet also states that she is more aware of her speech/language errors, which has caused increased frustration. She also is having some remaining difficulties with memory/ cognition. 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 Vikas was seen by [facility] speech therapy for one visit, but has not received any other speech therapy since her stroke. She is also receiving physical therapy at this facility twice per week. _ Since initial evaluation, Janet has been attending cognitive linguistic therapy with PLASMA SPECIALIST at this clinic for 10 visits and has made good progress toward her short term and long-term goals. Throughout the course of therapy, Janet's specific cognitive/memory needs have become more clear and treatment has focused on developing compensatory strategies to remediate memory concerns, including the use of external aids and the use of spaced retrieval training and errorless learning to memorize needed information such as names of people/pets and locations of important items. Subjective Identification Type Name Observations/Patient Presentation Pt arrived to the session on time with her caregiver who accompanied her to the session . She was engaged and motivated to participate in all session activities. Chief Complaint(s) Language,Cognitive Objective Short Term Goals 1. Janet will complete recall tasks of names of family/pets with 80% accuracy or more following an errorless learning session to review target names. 10/04/24: Continue goal. Janet is 90% accurate with pet name recall as of last data collection, but family names are a remaining target. 2. Janet will accurately state location of dedicated calendar (based on trained spaced retrieval phrase) in 80% of probes independently. 10/04/24: Continue goal. Janet fluctuates in accuracy on this goal. She will benefit from retraining with spaced retrieval technique. 3. Janet will benefit from education re lifestyle factors for brain and cognitive health, including sleep, nutrition, socialization, exercise, etc. 10/04/24: Ongoing goal, continue. 4. Patient will explore external compensatory strategies through education and application, in order to select 1-2 that are a best fit for daily needs (ex: calendar and writing lists). NEW GOAL DISCONTINUED/COMPLETED GOALS: 1. Janet will complete confrontation naming tasks for 2 to 3-syllable words with 90 % accuracy given orthographic cues. (Goal met) 2. Janet will produce a minimum of 4 different features when presented with a target word using semantic feature analysis (SFA), given minimal verbal prompts, with 75% accuracy. (Goal met) 3. Janet and caregivers/family will benefit from education in home/carryover activities for aphasia rehabilitation. (Goal met) 4. Janet will complete a re- assessment of cognition to further guide POC r/t cognition/memory. (Discontinue ) Supervisor Jewelry Department Goals 1. Janet will accurately recall names of family/pets with 80% accuracy independently given random probes (not preceded by errorless learning). 2. Janet will accurately recall scheduled daily activities (e .g. appointments) independently in 80% of probes . DISCONTINUED/COMPLETED GOALS: Janet will complete confrontation naming tasks for 2 to 3-syllable words with 80 % accuracy without the need for PLASMA SPECIALIST cues. (Goal met) Janet will increase her score on the QAB to an overall score of at least 8.9/10.00 ( consistent with no aphasia). ( Goal met) Treatment Activities Updated POC today and sent it to pt's PCP to include a STG on external memory aids. Discussed progress with previously trained strategies/ tools, including caregiver sending an auto message to remind pt to take her sleeping pill at night and making phone calls. Structured practice with use of alarms to increase pt recall of routine tasks/activities she needs to completed. Graded cueing provided and visual aid utilized. Assessment Patient Response to Treatment Good Rehab Potential Good Impairments Identified Expressive language,Receptive language,Cognitive communication Progress Towards Goals Good Progress,Slow Progress Assessment of Overall Progress Improving Assessment of Improvement Facilitated discussion re: pt? s overall cognitive- communication function and use of strategies since last session. Pt reported the automatic text messages from her caregiver to remind her to take her sleeping pill in the evening have been very helpful. She also expressed she has been doing well with making phone calls and has had no difficulty with this task. She continues to have no difficulty recalling the location of her calendar and references it often. Her caregiver reported an increase in ability to recall upcoming medical and therapy appointments, though continues to have difficulty remembering plan for the day when away from the house. Pt has not been able to purchase weekly associate merchandise planner yet as an external aid, though has been utilizing paper copies provided in previous sessions to increase her ability to recall upcoming events/ appointments in the next week/ month. Pt expressed she would like to do her physical therapy exercises daily as recommended, but she often forgets. Implemented use of alarm on pt?s phone to improve recall and set routine. PLASMA SPECIALIST provided initial demonstration and [id number] visual aid. Pt with significant difficulty completing this task without cueing and use of visual aid. Given min-mod prompting and frequent reminders to reference visual aid, pt was able to set alarm correctly across two trials. Recommended pt continue to set alarms for daily reminders as needed while using handout as memory aid. Continue targeting functional use of external memory aids as well as holistic lifestyle factors in following session given pt progress. Updated POC sent to PCP with STG for external memory aids as it was not included in previous POC. Reviewed with Patient Progress Being Made Patient/Caregiver Understanding Good Plan Amount of Therapy Recommended 2-3 Months Frequency of Treatment Twice a Week Length of Session 30 Minutes Therapeutic Contents Auditory Comprehension, Cognitive-Linguistic Training, Expressive Language Training Provided Patient/Caregiver Instruction Home Exercise Program, Questions/Concerns Therapy Recommendations Continue with Current Program
--- NOTE | 2024-11-27 16:03 | ST.OPPOC ---
Physical, Occupational & Speech Therapy At [facility] Visit Care Team Role Provider Type Yvonne HAMZAH Calabrese Family Provider Non-Staff Address: [address] [place] [address], [id number] Nabor Starkey MD Attending Provider Physician Primary Care Provider Referring Provider Address: [address] [place] [address], [id number] Speech Pathology Plan of Care Plan of Care Dates 11/27/24-02/27/25 Referring Provider Nabor Starkey Patient History Janet carlton is a 79 year old female who presented to this clinic for an outpatient evaluation of speech-language and cognition secondary to a recent stroke which resulted in expressive aphasia. She was admitted to ED at this hospital on 05/09/24 with MRI indicating acute small focal infarct in the posterior medial left temporal lobe. 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 She was seen by another SALES AND MARKETING ASSISTANT at this facility ( Martha Lunsford, LOGAN) on 05/10/24 for an assessment of cognition and language before discharging home on 05/11/24 with caregiver assistance 5 days/week. At the time of her inpatient cognitive-language assessment, the [facility] Mental Status examination (SLUMS) and the Quick Aphasia Batetry (QAB were administered). On the SLUMS (which measures various domains of cognition including attention, memory, and orientation), Janet scored a 7 out of 30, which is indicative of moderate-severe impairment in cognition. On the QAB, Janet scored an overall score of 7.40-10 .00, indicative of moderate impairment in language skills. It was recommended that Janet discharge home with her caregiver, Milady, who manages IADLs and assists with most ADLs during the week. Milady reported that the pt's family member Don also helps with Janet's IADLs. Since discharge from the hospital, pt and caregiver state that Janet's language has improved, but Janet also states that she is more aware of her speech/language errors, which has caused increased frustration. She also is having some remaining difficulties with memory/ cognition. 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 Vikas was seen by [facility] speech therapy for one visit, but has not received any other speech therapy since her stroke. She is also receiving physical therapy at this facility twice per week. Since initial evaluation, Janet has been attending cognitive linguistic therapy with SALES AND MARKETING ASSISTANT at this clinic for 10 visits and has made good progress toward her short term and long-term goals. Throughout the course of therapy, Janet's specific cognitive/memory needs have become more clear and treatment has focused on developing compensatory strategies to remediate memory concerns, including the use of external aids and the use of spaced retrieval training and errorless learning to memorize needed information such as names of people/pets and locations of important items. Impairments Identified Expressive language,Receptive language,Cognitive communication Progress Towards Goals Good Progress,Slow Progress Self-awareness of Cognitive- Situational awareness (re Communication Deficits General Tasks and Demands Mild Household Tasks Mild Interpersonal Interactions Moderate Community Moderate MBS Comments Oropharyngeal dysphagia with reduced OM strength . Mastication efficiency compromised due to poor dentition. Laryngeal penetration was noted as well as esophageal retention, narrowing and retrograde flow near mid chest. Referral to GI is recommended. Pt noted she has had EGD many years ago. Additionally she has not had GERD tretment for many years (per pt's report.) Recommended Referrals GI Consult Short Term Goals 1. Janet will complete recall tasks of names of family/pets with 80% accuracy or more following an errorless learning session to review target names. 10/04/24: Continue goal. Janet is 90% accurate with pet name recall as of last data collection, but family names are a remaining target. 2. Janet will accurately state location of dedicated calendar (based on trained spaced retrieval phrase) in 80% of probes independently . 10/04/24: Continue goal. Janet fluctuates in accuracy on this goal. She will benefit from retraining with spaced retrieval technique. 3. Janet will benefit from education re lifestyle factors for brain and cognitive health, including sleep, nutrition, socialization, exercise, etc. 10/04/24: Ongoing goal, continue. 4. Patient will explore external compensatory strategies through education and application, in order to select 1-2 that are a best fit for daily needs (ex: calendar and writing lists). NEW GOAL DISCONTINUED/COMPLETED GOALS: 1. Janet will complete confrontation naming tasks for 2 to 3-syllable words with 90% accuracy given orthographic cues. (Goal met) 2. Janet will produce a minimum of 4 different features when presented with a target word using semantic feature analysis (SFA), given minimal verbal prompts, with 75% accuracy. (Goal met) 3. Janet and caregivers/family will benefit from education in home/carryover activities for aphasia rehabilitation. (Goal met) 4. Janet will complete a re-assessment of cognition to further guide POC r/t cognition/ memory. (Discontinue) Electrician [employer] Goals 1. Janet will accurately recall names of family/ pets with 80% accuracy independently given random probes (not preceded by errorless learning). 2. Janet will accurately recall scheduled daily activities (e.g. appointments) independently in 80% of probes. DISCONTINUED/COMPLETED GOALS: Janet will complete confrontation naming tasks for 2 to 3-syllable words with 80% accuracy without the need for SALES AND MARKETING ASSISTANT cues. (Goal met) Janet will increase her score on the QAB to an overall score of at least 8.9/10.00 (consistent with no aphasia). (Goal met) Comment: Electronically Signed by: LOGAN Aguiar 11/27/24 9821 If you are in agreement with this Plan of Care, please return a signed and dated copy. I have reviewed this Plan of Care and certify that the skilled therapy services above are required to meet the patient?s needs. Physician Signature Date Printed Name and Credentials Clinical Instructor Signature Printed Name and Credentials
--- NOTE | 2024-12-04 13:45 | ST.OPTN ---
Visit Care Team Role Provider Type Yvonne HAMZAH Calabrese Family Provider Non-Staff Address: [address] [place] [address], [id number] Nabor Starkey MD Attending Provider Physician Primary Care Provider Referring Provider Address: [address] [place] [address], [id number] INNOVATION ANALYST Treatment Note INNOVATION ANALYST Treatment Note Start: 06/25/24 13:43 Freq: Status: Active Protocol: Document 12/04/24 12:52 SS (Rec: 12/04/24 12:59 SS [id number]) Speech Pathology Treatment Note Session Time Visit Start Time 11:30 Visit Stop Time 12:05 Total Visit Minutes 35 Visit Information Visit Number 29 Plan of Care Dates 11/27/24-02/27/25 Insurance Information [facility] Setting Treatment Setting Outpatient Care Visit Type Note Type Treatment Note Next Note Type Next Note Type Treatment Note General Information Patient History Janet carlton is a 79 year old female who presented to this clinic for an outpatient evaluation of speech-language and cognition secondary to a recent stroke which resulted in expressive aphasia. She was admitted to ED at this hospital on 05/09/24 with MRI indicating acute small focal infarct in the posterior medial left temporal lobe. 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 She was seen by another INNOVATION ANALYST at this facility ([facility]uns[facility], [facility] ) on 05/10/24 for an assessment of cognition and language before discharging home on 05/11 with caregiver assistance 5 days/week. At the time of her inpatient cognitive- language assessment, the [employer] Mental Status examination (SLUMS) and the Quick Aphasia Batetry (QAB were administered). On the SLUMS (which measures various domains of cognition including attention, memory, and orientation), Janet scored a 7 out of 30, which is indicative of moderate-severe impairment in cognition. On the QAB, Janet scored an overall score of 7.40-10.00, indicative of moderate impairment in language skills. It was recommended that Janet discharge home with her caregiver, Milady, who manages IADLs and assists with most ADLs during the week. Milady reported that the pt's family member Don also helps with Janet's IADLs. Since discharge from the hospital, pt and caregiver state that Janet's language has improved, but Janet also states that she is more aware of her speech/language errors, which has caused increased frustration. She also is having some remaining difficulties with memory/ cognition. 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 Vikas was seen by [facility] speech therapy for one visit, but has not received any other speech therapy since her stroke. She is also receiving physical therapy at this facility twice per week. _ Since initial evaluation, Janet has been attending cognitive linguistic therapy with INNOVATION ANALYST at this clinic for 10 visits and has made good progress toward her short term and long-term goals. Throughout the course of therapy, Janet's specific cognitive/memory needs have become more clear and treatment has focused on developing compensatory strategies to remediate memory concerns, including the use of external aids and the use of spaced retrieval training and errorless learning to memorize needed information such as names of people/pets and locations of important items. Subjective Identification Type Name Observations/Patient Presentation Pt arrived to the session on time with her caregiver who accompanied her to the session . She was engaged and motivated to participate in all session activities. Chief Complaint(s) Language,Cognitive Objective Short Term Goals 1. Janet will complete recall tasks of names of family/pets with 80% accuracy or more following an errorless learning session to review target names. 10/04/24: Continue goal. Janet is 90% accurate with pet name recall as of last data collection, but family names are a remaining target. 2. Janet will accurately state location of dedicated calendar (based on trained spaced retrieval phrase) in 80% of probes independently. 10/04/24: Continue goal. Janet fluctuates in accuracy on this goal. She will benefit from retraining with spaced retrieval technique. 3. Janet will benefit from education re lifestyle factors for brain and cognitive health, including sleep, nutrition, socialization, exercise, etc. 10/04/24: Ongoing goal, continue. 4. Patient will explore external compensatory strategies through education and application, in order to select 1-2 that are a best fit for daily needs (ex: calendar and writing lists). NEW GOAL DISCONTINUED/COMPLETED GOALS: 1. Janet will complete confrontation naming tasks for 2 to 3-syllable words with 90 % accuracy given orthographic cues. (Goal met) 2. Janet will produce a minimum of 4 different features when presented with a target word using semantic feature analysis (SFA), given minimal verbal prompts, with 75% accuracy. (Goal met) 3. Janet and caregivers/family will benefit from education in home/carryover activities for aphasia rehabilitation. (Goal met) 4. Janet will complete a re- assessment of cognition to further guide POC r/t cognition/memory. (Discontinue ) Breadman Goals 1. Janet will accurately recall names of family/pets with 80% accuracy independently given random probes (not preceded by errorless learning). 2. Janet will accurately recall scheduled daily activities (e .g. appointments) independently in 80% of probes . DISCONTINUED/COMPLETED GOALS: Janet will complete confrontation naming tasks for 2 to 3-syllable words with 80 % accuracy without the need for INNOVATION ANALYST cues. (Goal met) Janet will increase her score on the QAB to an overall score of at least 8.9/10.00 ( consistent with no aphasia). ( Goal met) Treatment Activities Continued discussion re: lifestyle factors for brain and cognitive health. Continued use of alarms and introduced daily hydration tracker as external memory aids to reinforce education. Discussed progress and provided home practice. Assessment Patient Response to Treatment Good Rehab Potential Good Impairments Identified Expressive language,Receptive language,Cognitive communication Progress Towards Goals Good Progress,Slow Progress Assessment of Overall Progress Improving Assessment of Improvement INNOVATION ANALYST provided initial education in the following lifestyle factors that promote overall cognitive function: physical activity, social activity, sleep habits, hearing ability, and hydration and nutrition. Pt reported that she was able to complete her physical therapy twice in the past week with use of alarms as an external memory aid. Assisted pt in changing alarms settings so she can continue to utilize it as a reminder to do her exercises. Additionally, pt reported she has been sleeping for at least 8 hours every night since implementing recommended strategies in prior sessions. She expressed that alarms and her caregiver sending her an automatic message every night to take her sleeping pill continue to be effective. Pt reported she continues to struggle with drinking enough liquids throughout the day. INNOVATION ANALYST recommended she begin using hydration log to track how many glasses of liquids that are not caffeinated she drinks per day. Printed out hydration log and provided information on how to use it as a memory aid. Pt expressed she will begin using it and report no progress next session. Lastly, pt expressed that she occasionally forgets to take her night medications. Assisted pt with setting another alarm on her phone as a reminder to take her medications. Caregiver to also begin sending her an automatic message every night. Pt reported she has noticed increased ability to complete her IADLs with use of trained strategies/tools as well as more consistent implementation of holistic lifestyle factors . Continue targeting functional use of external memory aids as well as holistic lifestyle factors in following sessions given pt progress to date. Reviewed with Patient Progress Being Made Patient/Caregiver Understanding Good Plan Amount of Therapy Recommended 2-3 Months Frequency of Treatment Twice a Week Length of Session 30 Minutes Therapeutic Contents Auditory Comprehension, Cognitive-Linguistic Training, Expressive Language Training Provided Patient/Caregiver Instruction Home Exercise Program, Questions/Concerns Therapy Recommendations Continue with Current Program
--- NOTE | 2024-12-07 13:49 | ST.OPTN ---
Visit Care Team Role Provider Type Yvonne HAMZAH Calabrese Family Provider Non-Staff Address: [address] [place] [address], [id number] Nabor Starkey MD Attending Provider Physician Primary Care Provider Referring Provider Address: [address] [place] [address], [id number] PIPE AND BOILER COVERS SUPERVISOR Treatment Note PIPE AND BOILER COVERS SUPERVISOR Treatment Note Start: 06/25/24 13:43 Freq: Status: Active Protocol: Document 12/07/24 13:32 SS (Rec: 12/07/24 13:48 SS [id number]) Speech Pathology Treatment Note Session Time Visit Start Time 11:15 Visit Stop Time 12:50 Total Visit Minutes 35 Visit Information Visit Number 30 Plan of Care Dates 11/27/24-02/27/25 Insurance Information [facility] Setting Treatment Setting Outpatient Care Visit Type Note Type Treatment Note Next Note Type Next Note Type Progress Note General Information Patient History Janet carlton is a 79 year old female who presented to this clinic for an outpatient evaluation of speech-language and cognition secondary to a recent stroke which resulted in expressive aphasia. She was admitted to ED at this hospital on 05/09/24 with MRI indicating acute small focal infarct in the posterior medial left temporal lobe. 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 She was seen by another PIPE AND BOILER COVERS SUPERVISOR at this facility ([facility], [facility] ) on 05/10/24 for an assessment of cognition and language before discharging home on 05/11 with caregiver assistance 5 days/week. At the time of her inpatient cognitive- language assessment, the [employer] Mental Status examination (SLUMS) and the Quick Aphasia Batetry (QAB were administered). On the SLUMS (which measures various domains of cognition including attention, memory, and orientation), Janet scored a 7 out of 30, which is indicative of moderate-severe impairment in cognition. On the QAB, Janet scored an overall score of 7.40-10.00, indicative of moderate impairment in language skills. It was recommended that Janet discharge home with her caregiver, Milady, who manages IADLs and assists with most ADLs during the week. Milady reported that the pt's family member Don also helps with Janet's IADLs. Since discharge from the hospital, pt and caregiver state that Janet's language has improved, but Janet also states that she is more aware of her speech/language errors, which has caused increased frustration. She also is having some remaining difficulties with memory/ cognition. 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 Vikas was seen by [facility] speech therapy for one visit, but has not received any other speech therapy since her stroke. She is also receiving physical therapy at this facility twice per week. _ Since initial evaluation, Janet has been attending cognitive linguistic therapy with PIPE AND BOILER COVERS SUPERVISOR at this clinic for 10 visits and has made good progress toward her short term and long-term goals. Throughout the course of therapy, Janet's specific cognitive/memory needs have become more clear and treatment has focused on developing compensatory strategies to remediate memory concerns, including the use of external aids and the use of spaced retrieval training and errorless learning to memorize needed information such as names of people/pets and locations of important items. Subjective Identification Type Name Observations/Patient Presentation Pt arrived to the session on time with her caregiver who accompanied her to the session . She was engaged and motivated to participate in all session activities. Chief Complaint(s) Language,Cognitive Objective Short Term Goals 1. Janet will complete recall tasks of names of family/pets with 80% accuracy or more following an errorless learning session to review target names. 10/04/24: Continue goal. Janet is 90% accurate with pet name recall as of last data collection, but family names are a remaining target. 2. Janet will accurately state location of dedicated calendar (based on trained spaced retrieval phrase) in 80% of probes independently. 10/04/24: Continue goal. Janet fluctuates in accuracy on this goal. She will benefit from retraining with spaced retrieval technique. 3. Janet will benefit from education re lifestyle factors for brain and cognitive health, including sleep, nutrition, socialization, exercise, etc. 10/04/24: Ongoing goal, continue. 4. Patient will explore external compensatory strategies through education and application, in order to select 1-2 that are a best fit for daily needs (ex: calendar and writing lists). NEW GOAL DISCONTINUED/COMPLETED GOALS: 1. Janet will complete confrontation naming tasks for 2 to 3-syllable words with 90 % accuracy given orthographic cues. (Goal met) 2. Janet will produce a minimum of 4 different features when presented with a target word using semantic feature analysis (SFA), given minimal verbal prompts, with 75% accuracy. (Goal met) 3. Janet and caregivers/family will benefit from education in home/carryover activities for aphasia rehabilitation. (Goal met) 4. Janet will complete a re- assessment of cognition to further guide POC r/t cognition/memory. (Discontinue ) Revolving Field Assembler Goals 1. Janet will accurately recall names of family/pets with 80% accuracy independently given random probes (not preceded by errorless learning). 2. Janet will accurately recall scheduled daily activities (e .g. appointments) independently in 80% of probes . DISCONTINUED/COMPLETED GOALS: Janet will complete confrontation naming tasks for 2 to 3-syllable words with 80 % accuracy without the need for PIPE AND BOILER COVERS SUPERVISOR cues. (Goal met) Janet will increase her score on the QAB to an overall score of at least 8.9/10.00 ( consistent with no aphasia). ( Goal met) Treatment Activities Probes for names of family/ pets and location of dedicated calendar. Continued discussion re: lifestyle factors for brain and cognitive health. Continued implementation of external memory aids, including monthly /weekly community planner and use of calculator during practice shopping activity. Discussed progress and provided home practice. Assessment Patient Response to Treatment Good Rehab Potential Good Impairments Identified Expressive language,Receptive language,Cognitive communication Progress Towards Goals Good Progress,Slow Progress Assessment of Overall Progress Improving Assessment of Improvement Pt was able to recall location of dedicated calendar in all probes today. Her caregiver fills it out and she checks it daily. She can typically reference it independently when trying to remember daily appointments/events, but has more difficulty recalling outside the home. P[employer] BOILER COVERS SUPERVISOR reviewed recommendation to purchase monthly/weekly community planner and carry in in her purpose for improved recall. Provided example product handout. Pt and caregiver agreeable and stated they will purchase community planner before next session. Given probes, pt was able to recall names of pets with 90% accuracy today. Names of family/friends have not been targeted and pt expressed she no longer wants to target this goal in treatment. Reviewed pt adherence to holistic lifestyle factors. Pt reported she has been able to do her PT exercises consistently and is getting 8-hours of sleep every night, given use of alarms as a memory aid. Both her and her caregiver expressed noticeable improvement in her overall mood and cognitive function. She has had more difficulty with use of hydration log, though expressed she was motivated to begin using it. Implemented [employer] store shopping calculation activity in which pt was tasked with calculating total spent and amount left given budget. This was highly motivating to pt was she enjoys shopping at least twice a week, but relies on assistance from her caregiver to not overspend. Pt utilized own manual calculator. Given initial prompt, she was able to calculate amount spent accurately. She befitted from min cueing and instruction to calculate amount left over. She had the most difficulty determining which number is subtracted. Overall, good progress with use of external memory aids and application of holistic lifestyle factors. Continue targeting functional use of external memory aids as well as holistic lifestyle factors in following sessions. Progress note complete today. Reviewed with Patient Progress Being Made Patient/Caregiver Understanding Good Plan Amount of Therapy Recommended 2-3 Months Frequency of Treatment Twice a Week Length of Session 30 Minutes Therapeutic Contents Auditory Comprehension, Cognitive-Linguistic Training, Expressive Language Training Provided Patient/Caregiver Instruction Home Exercise Program, Questions/Concerns Therapy Recommendations Continue with Current Program
--- NOTE | 2024-12-07 14:08 | ST.PROG ---
Visit Care Team Role Provider Type HAMZAH Navas Family Provider Non-Staff Address: [address] [place] [address], [id number] Nabor Starkey MD Attending Provider Physician Primary Care Provider Referring Provider Address: [address] [place] [address], [id number] REFINER OPERATOR Progress Note REFINER OPERATOR Treatment Note Start: 06/25/24 13:43 Freq: Status: Active Protocol: Document 12/07/24 13:50 SS (Rec: 12/07/24 14:08 SS [id number]) Speech Pathology Treatment Note Visit Information Visit Number 30 Plan of Care Dates 11/27/24-02/27/25 Insurance Information [facility] Treatment Setting Outpatient Care Visit Type Note Type Progress Note Next Note Type Next Note Type Treatment Note General Information Patient History Janet carlton is a 79 year old female who presented to this clinic for an outpatient evaluation of speech-language and cognition secondary to a recent stroke which resulted in expressive aphasia. She was admitted to ED at this hospital on 05/09/24 with MRI indicating acute small focal infarct in the posterior medial left temporal lobe. 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 She was seen by another REFINER OPERATOR at this facility ([facility]a Luns[facility], [facility] ) on 05/10/24 for an assessment of cognition and language before discharging home on 05/11 with caregiver assistance 5 days/week. At the time of her inpatient cognitive- language assessment, the [facility] Mental Status examination (SLUMS) and the Quick Aphasia Batetry (QAB were administered). On the SLUMS (which measures various domains of cognition including attention, memory, and orientation), Janet scored a 7 out of 30, which is indicative of moderate-severe impairment in cognition. On the QAB, Janet scored an overall score of 7.40-10.00, indicative of moderate impairment in language skills. It was recommended that Janet discharge home with her caregiver, Milady, who manages IADLs and assists with most ADLs during the week. Summer reported that the pt's family member Don also helps with Janet's IADLs. Since discharge from the hospital, pt and caregiver state that Janet's language has improved, but Janet also states that she is more aware of her speech/language errors, which has caused increased frustration. She also is having some remaining difficulties with memory/ cognition. 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 Janet was seen by [facility] speech therapy for one visit, but has not received any other speech therapy since her stroke. She is also receiving physical therapy at this facility twice per week. _ Since initial evaluation, Janet has been attending cognitive linguistic therapy with REFINER OPERATOR at this clinic for 10 visits and has made good progress toward her short term and long-term goals. Throughout the course of therapy, Janet's specific cognitive/memory needs have become more clear and treatment has focused on developing compensatory strategies to remediate memory concerns, including the use of external aids and the use of spaced retrieval training and errorless learning to memorize needed information such as names of people/pets and locations of important items. Objective Short Term Goals 1. Janet will benefit from education re lifestyle factors for brain and cognitive health, including sleep, nutrition, socialization, exercise, etc. 10/04/24: Ongoing goal, continue. 12/07/24: Ongoing goal, continue . 2. Janet will explore external compensatory strategies through education and application, in order to select 1-2 that are a best fit for daily needs (ex: calendar and writing lists). 12/07/24: Ongoing goal, continue . 3. Janet will independently complete daily memory log for three consecutive weeks in order to improve memory/recall of daily events. NEW GOAL DISCONTINUED/COMPLETED GOALS: 1. Janet will complete confrontation naming tasks for 2 to 3-syllable words with 90 % accuracy given orthographic cues. (Goal met) 2. Janet will produce a minimum of 4 different features when presented with a target word using semantic feature analysis (SFA), given minimal verbal prompts, with 75% accuracy. (Goal met) 3. Janet and caregivers/family will benefit from education in home/carryover activities for aphasia rehabilitation. (Goal met) 4. Janet will complete a re- assessment of cognition to further guide POC r/t cognition/memory. (Discontinue ) 5. Janet will complete recall tasks of names of family/pets with 80% accuracy or more following an errorless learning session to review target names. (Discontinue) 6. Janet will accurately state location of dedicated calendar (based on trained spaced retrieval phrase) in 80% of probes independently. (Goal met) Special Deputy Sheriff Goals 1. Janet will complete cognitive communication tasks with use of strategies or tools as needed given min cueing to complete baseline tasks with minimal difficulty. 2. Janet will improve recall of scheduled events occurring in the past month to 80% using external compensatory strategies to improve communication with family, friends, and medical providers . DISCONTINUED/COMPLETED GOALS: Janet will complete confrontation naming tasks for 2 to 3-syllable words with 80 % accuracy without the need for REFINER OPERATOR cues. (Goal met) Janet will increase her score on the QAB to an overall score of at least 8.9/10.00 ( consistent with no aphasia). ( Goal met) Janet will accurately recall names of family/pets with 80% accuracy independently given random probes (not preceded by errorless learning). (Goal met) Treatment Activities Tx activities this reporting period have included: -Spaced retrieval training for functional learned phrase (If I need to check my calendar, I'll look in the kitchen by the phone) -Errorless learning trials of pet names with immediate recall practice -Systematic instruction in functional multi-step sequence (calculating total amounts and change on calculator during shopping scenario) -Use of external memory aids, including alarms, party planner, and hydration log -Education in lifestyle factors r/t cognition including sleep, mental health , hydration, physical activity , etc. Assessment Patient Response to Treatment Good Rehab Potential Good Impairments Identified Expressive language,Receptive language,Cognitive communication Progress Towards Goals Good Progress Assessment of Overall Progress Improving Assessment of Improvement As of last data collection, pt was able to recall pets' names with 90% accuracy without need for an errorless learning session. She no longer wants to target names of family members/friends and feels she has less difficulty with it now. She is able to recall the location of her dedicated calendar. Her caregiver fills it out and she checks it daily . She can typically reference it independently when trying to remember daily appointments /events, but has more difficulty recalling outside the home. Janet continues to be participative and engaged with education re lifestyle factors and home strategies related to cognition, including working metacognitive strategies for positive self-talk. She is now able to do her PT exercises consistently and is getting 8- hours of sleep every night, given use of alarms as a memory aid. Both her and her caregiver expressed noticeable improvement in her overall mood and cognitive function. She has had more difficulty with use of hydration log, though expressed she was motivated to begin using it. She has implemented use of alarms as an external memory aid to help her remember to do her PT exercises, take her evening medications, and take her sleeping pills. She expressed this has been an effective strategy for her. She has expressed understanding of education re: use of memory log/party planner, but has had difficulty following through with this recommendation. She will continue to benefit from ongoing education re: holistic lifestyle factors supported by research to have a positive impact on cognition . She will also benefit from continued development and customization of external memory aids to improve memory/ recall of daily events. Plan Amount of Therapy Recommended 2-3 Months Frequency of Treatment Twice a Week Length of Session 30 Minutes Therapeutic Contents Auditory Comprehension, Cognitive-Linguistic Training, Expressive Language Training Provided Patient/Caregiver Instruction Home Exercise Program,Plan of Care,Questions/Concerns Therapy Recommendations Continue with Current Program Visit Care Team Role Provider Type HAMZAH Navas Family Provider Non-Staff [place]ty: [facility] Address: [address] [place] [address], [id number] Email: Nabor Starkey MD Attending Provider Physician Primary Care Provider Referring Provider Specialty: [facility] Address: [address] [place] [address], [id number] Email: [email or web address]
--- NOTE | 2024-12-10 16:06 | ST.OPTN ---
Visit Care Team Role Provider Type HAMZAH Navas Family Provider Non-Staff Address: [address] [place] [address], [id number] Nabor Starkey MD Attending Provider Physician Primary Care Provider Referring Provider Address: [address] [place] [address], [id number] MACHINE CERAMIC COATER Treatment Note MACHINE CERAMIC COATER Treatment Note Start: 06/25/24 13:43 Freq: Status: Active Protocol: Document 12/10/24 15:54 SS (Rec: 12/10/24 16:06 SS Desktop) Speech Pathology Treatment Note Session Time Visit Start Time 12:10 Visit Stop Time 12:50 Total Visit Minutes 40 Visit Information Visit Number 31 Plan of Care Dates 11/27/24-02/27/25 Insurance Information [facility] Setting Treatment Setting Outpatient Care Visit Type Note Type Progress Note Next Note Type Next Note Type Treatment Note General Information Patient History Janet carlton is a 79 year old female who presented to this clinic for an outpatient evaluation of speech-language and cognition secondary to a recent stroke which resulted in expressive aphasia. She was admitted to ED at this hospital on 05/09/24 with MRI indicating acute small focal infarct in the posterior medial left temporal lobe. 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 She was seen by another MACHINE CERAMIC COATER at this facility ([facility] ) on 05/10/24 for an assessment of cognition and language before discharging home on 05/11 with caregiver assistance 5 days/week. At the time of her inpatient cognitive- language assessment, the [employer] Mental Status examination (SLUMS) and the Quick Aphasia Batetry (QAB were administered). On the SLUMS (which measures various domains of cognition including attention, memory, and orientation), Janet scored a 7 out of 30, which is indicative of moderate-severe impairment in cognition. On the QAB, Janet scored an overall score of 7.40-10.00, indicative of moderate impairment in language skills. It was recommended that Janet discharge home with her caregiver, Milady, who manages IADLs and assists with most ADLs during the week. Milady reported that the pt's family member Don also helps with Janet's IADLs. Since discharge from the hospital, pt and caregiver state that Janet's language has improved, but Janet also states that she is more aware of her speech/language errors, which has caused increased frustration. She also is having some remaining difficulties with memory/ cognition. 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 Vikas was seen by [facility] speech therapy for one visit, but has not received any other speech therapy since her stroke. She is also receiving physical therapy at this facility twice per week. _ Since initial evaluation, Janet has been attending cognitive linguistic therapy with MACHINE CERAMIC COATER at this clinic for 10 visits and has made good progress toward her short term and long-term goals. Throughout the course of therapy, Janet's specific cognitive/memory needs have become more clear and treatment has focused on developing compensatory strategies to remediate memory concerns, including the use of external aids and the use of spaced retrieval training and errorless learning to memorize needed information such as names of people/pets and locations of important items. Subjective Identification Type Name Observations/Patient Presentation Pt arrived to the session on time with her caregiver who accompanied her to the session . She was engaged and motivated to participate in all session activities. Chief Complaint(s) Language,Cognitive Objective Short Term Goals 1. Janet will benefit from education re lifestyle factors for brain and cognitive health, including sleep, nutrition, socialization, exercise, etc. 10/04/24: Ongoing goal, continue. 12/07/24: Ongoing goal, continue . 2. Janet will explore external compensatory strategies through education and application, in order to select 1-2 that are a best fit for daily needs (ex: calendar and writing lists). 12/07/24: Ongoing goal, continue . 3. Janet will independently complete daily memory log for three consecutive weeks in order to improve memory/recall of daily events. NEW GOAL DISCONTINUED/COMPLETED GOALS: 1. Janet will complete confrontation naming tasks for 2 to 3-syllable words with 90 % accuracy given orthographic cues. (Goal met) 2. Janet will produce a minimum of 4 different features when presented with a target word using semantic feature analysis (SFA), given minimal verbal prompts, with 75% accuracy. (Goal met) 3. Janet and caregivers/family will benefit from education in home/carryover activities for aphasia rehabilitation. (Goal met) 4. Janet will complete a re- assessment of cognition to further guide POC r/t cognition/memory. (Discontinue ) 5. Janet will complete recall tasks of names of family/pets with 80% accuracy or more following an errorless learning session to review target names. (Discontinue) 6. Janet will accurately state location of dedicated calendar (based on trained spaced retrieval phrase) in 80% of probes independently. (Goal met) Nursing Home Goals 1. Janet will complete cognitive communication tasks with use of strategies or tools as needed given min cueing to complete baseline tasks with minimal difficulty. 2. Janet will improve recall of scheduled events occurring in the past month to 80% using external compensatory strategies to improve communication with family, friends, and medical providers . DISCONTINUED/COMPLETED GOALS: Janet will complete confrontation naming tasks for 2 to 3-syllable words with 80 % accuracy without the need for MACHINE CERAMIC COATER cues. (Goal met) Janet will increase her score on the QAB to an overall score of at least 8.9/10.00 ( consistent with no aphasia). ( Goal met) Janet will accurately recall names of family/pets with 80% accuracy independently given random probes (not preceded by errorless learning). (Goal met) Treatment Activities Continued discussion re: lifestyle factors for brain and cognitive health. Continued training in use of calculator to calculate item total and subtract from allotted budget while shopping via task analysis/training in multi-step sequence as Janet has difficulty ensuring she does not overspend. MACHINE CERAMIC COATER provided graded cueing to reduce error rate during new learning. Assessment Patient Response to Treatment Good Rehab Potential Good Impairments Identified Expressive language,Receptive language,Cognitive communication Progress Towards Goals Good Progress Assessment of Overall Progress Improving Assessment of Improvement Given minimal visual or verbal cues in contextualized, real- world activities targeting specific verb tenses/ structures (e.g. past tense, future tense, auxiliary verbs) , Jazzy will produce sentences with correctly conjugated verb in 80% of opportunities. Pt reported she has been doing well with implementation of changes to lifestyle factors following education. She has the most difficulty with getting consistent sleep. Discussed importance of going to sleep when her alarm goes off rather than dismissing it and staying awake. Pt agreeable and stated she will work on getting more consistent sleep. Additionally , recommended she place hydration log in in central location that she references often to increase intake of liquids, which pt was agreeable to. During training in multi-step sequence, pt continued to benefit from MACHINE CERAMIC COATER reviewing the steps verbally while completing sequence on her calculator. Given min verbal cues today, Janet was able to complete calculations with 75% accuracy without the need for additional verbal cues. She still needed occasional verbal cues to take the sequence one step at a time and utilize self-talk to increase independence with this task. Overall, good progress with use of calculator during simulated shopping activity for increased independence with financial planning advisor. Pt reported she had purchased land planner and will bring it to session when it arrives. Continue targeting functional use of external memory aids as well as holistic lifestyle factors in following sessions. Plan Amount of Therapy Recommended 2-3 Months Frequency of Treatment Twice a Week Length of Session 30 Minutes Therapeutic Contents Auditory Comprehension, Cognitive-Linguistic Training, Expressive Language Training Provided Patient/Caregiver Instruction Home Exercise Program,Plan of Care,Questions/Concerns Therapy Recommendations Continue with Current Program
--- NOTE | 2024-12-12 16:09 | ST.OPTN ---
Visit Care Team Role Provider Type HAMZAH Navas Family Provider Non-Staff Address: [address] [place] [address], [id number] Nabor Starkey MD Attending Provider Physician Primary Care Provider Referring Provider Address: [address] [place] [address], [id number] CASING CREW Treatment Note CASING CREW Treatment Note Start: 06/25/24 13:43 Freq: Status: Active Protocol: Document 12/10/24 15:54 SS (Rec: 12/10/24 16:06 SS Desktop) Speech Pathology Treatment Note Session Time Visit Start Time 12:10 Visit Stop Time 12:50 Total Visit Minutes 40 Visit Information Visit Number 31 Plan of Care Dates 11/27/24-02/27/25 Insurance Information [facility] Setting Treatment Setting Outpatient Care Visit Type Note Type Progress Note Next Note Type Next Note Type Treatment Note General Information Patient History Janet carlton is a 79 year old female who presented to this clinic for an outpatient evaluation of speech-language and cognition secondary to a recent stroke which resulted in expressive aphasia. She was admitted to ED at this hospital on 05/09/24 with MRI indicating acute small focal infarct in the posterior medial left temporal lobe. 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 She was seen by another CASING CREW at this facility ([facility], [place] ) on 05/10/24 for an assessment of cognition and language before discharging home on 05/11 with caregiver assistance 5 days/week. At the time of her inpatient cognitive- language assessment, the [employer] Mental Status examination (SLUMS) and the Quick Aphasia Batetry (QAB were administered). On the SLUMS (which measures various domains of cognition including attention, memory, and orientation), Janet scored a 7 out of 30, which is indicative of moderate-severe impairment in cognition. On the QAB, Janet scored an overall score of 7.40-10.00, indicative of moderate impairment in language skills. It was recommended that Janet discharge home with her caregiver, Milady, who manages IADLs and assists with most ADLs during the week. Milady reported that the pt's family member Don also helps with Janet's IADLs. Since discharge from the hospital, pt and caregiver state that Janet's language has improved, but Janet also states that she is more aware of her speech/language errors, which has caused increased frustration. She also is having some remaining difficulties with memory/ cognition. 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 Vikas was seen by [facility] speech therapy for one visit, but has not received any other speech therapy since her stroke. She is also receiving physical therapy at this facility twice per week. _ Since initial evaluation, Janet has been attending cognitive linguistic therapy with CASING CREW at this clinic for 10 visits and has made good progress toward her short term and long-term goals. Throughout the course of therapy, Janet's specific cognitive/memory needs have become more clear and treatment has focused on developing compensatory strategies to remediate memory concerns, including the use of external aids and the use of spaced retrieval training and errorless learning to memorize needed information such as names of people/pets and locations of important items. Subjective Identification Type Name Observations/Patient Presentation Pt arrived to the session on time with her caregiver who accompanied her to the session . She was engaged and motivated to participate in all session activities. Chief Complaint(s) Language,Cognitive Objective Short Term Goals 1. Janet will benefit from education re lifestyle factors for brain and cognitive health, including sleep, nutrition, socialization, exercise, etc. 10/04/24: Ongoing goal, continue. 12/07/24: Ongoing goal, continue . 2. Janet will explore external compensatory strategies through education and application, in order to select 1-2 that are a best fit for daily needs (ex: calendar and writing lists). 12/07/24: Ongoing goal, continue . 3. Janet will independently complete daily memory log for three consecutive weeks in order to improve memory/recall of daily events. NEW GOAL DISCONTINUED/COMPLETED GOALS: 1. Janet will complete confrontation naming tasks for 2 to 3-syllable words with 90 % accuracy given orthographic cues. (Goal met) 2. Janet will produce a minimum of 4 different features when presented with a target word using semantic feature analysis (SFA), given minimal verbal prompts, with 75% accuracy. (Goal met) 3. Janet and caregivers/family will benefit from education in home/carryover activities for aphasia rehabilitation. (Goal met) 4. Janet will complete a re- assessment of cognition to further guide POC r/t cognition/memory. (Discontinue ) 5. Janet will complete recall tasks of names of family/pets with 80% accuracy or more following an errorless learning session to review target names. (Discontinue) 6. Janet will accurately state location of dedicated calendar (based on trained spaced retrieval phrase) in 80% of probes independently. (Goal met) Jail Goals 1. Janet will complete cognitive communication tasks with use of strategies or tools as needed given min cueing to complete baseline tasks with minimal difficulty. 2. Janet will improve recall of scheduled events occurring in the past month to 80% using external compensatory strategies to improve communication with family, friends, and medical providers . DISCONTINUED/COMPLETED GOALS: Janet will complete confrontation naming tasks for 2 to 3-syllable words with 80 % accuracy without the need for CASING CREW cues. (Goal met) Janet will increase her score on the QAB to an overall score of at least 8.9/10.00 ( consistent with no aphasia). ( Goal met) Janet will accurately recall names of family/pets with 80% accuracy independently given random probes (not preceded by errorless learning). (Goal met) Treatment Activities Continued discussion re: lifestyle factors for brain and cognitive health. Continued training in use of calculator to calculate item total and subtract from allotted budget while shopping via task analysis/training in multistep sequence as Janet has difficulty ensuring she does not overspend. CASING CREW provided graded cueing to reduce error rate during new learning. Assessment Patient Response to Treatment Good Rehab Potential Good Impairments Identified Expressive language,Receptive language,Cognitive communication Progress Towards Goals Good Progress Assessment of Overall Progress Improving Assessment of Improvement Pt reported she has been doing well with implementation of changes to lifestyle factors following education. She has the most difficulty with getting consistent sleep. Discussed importance of going to sleep when her alarm goes off rather than dismissing it and staying awake. Pt agreeable and stated she will work on getting more consistent sleep. Additionally , recommended she place hydration log in in central location that she references often to increase intake of liquids, which pt was agreeable to. During training in multi-step sequence, pt continued to benefit from CASING CREW reviewing the steps verbally while completing sequence on her calculator. Given min verbal cues today, Janet was able to complete calculations with 75% accuracy without the need for additional verbal cues. She still needed occasional verbal cues to take the sequence one step at a time and utilize self-talk to increase independence with this task. Overall, good progress with use of calculator during simulated shopping activity for increased independence with financial sales manager. Pt reported she had purchased derrick boat operator and will bring it to session when it arrives. Continue targeting functional use of external memory aids as well as holistic lifestyle factors in following sessions. Plan Amount of Therapy Recommended 2-3 Months Frequency of Treatment Twice a Week Length of Session 30 Minutes Therapeutic Contents Auditory Comprehension, Cognitive-Linguistic Training, Expressive Language Training Provided Patient/Caregiver Instruction Home Exercise Program,Plan of Care,Questions/Concerns Therapy Recommendations Continue with Current Program
--- NOTE | 2024-12-12 16:20 | ST.OPTN ---
Visit Care Team Role Provider Type HAMZAH Navas Family Provider Non-Staff Address: [address] [place] [address], [id number] Nabor Starkey MD Attending Provider Physician Primary Care Provider Referring Provider Address: [address] [place] [address], [id number] TRIMMER OPERATOR THREE KNIFE Treatment Note TRIMMER OPERATOR [employer] KNIFE Treatment Note Start: 06/25/24 13:43 Freq: Status: Active Protocol: Document 12/12/24 16:06 SS (Rec: 12/12/24 16:20 SS Desktop) Speech Pathology Treatment Note Session Time Visit Start Time 12:20 Visit Stop Time 12:52 Total Visit Minutes 32 Visit Information Visit Number 32 Plan of Care Dates 11/27/24-02/27/25 Insurance Information [facility] Setting Treatment Setting Outpatient Care Visit Type Note Type Treatment Note Next Note Type Next Note Type Treatment Note General Information Patient History Janet carlton is a 79 year old female who presented to this clinic for an outpatient evaluation of speech-language and cognition secondary to a recent stroke which resulted in expressive aphasia. She was admitted to ED at this hospital on 05/09/24 with MRI indicating acute small focal infarct in the posterior medial left temporal lobe. 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 She was seen by another TRIMMER OPERATOR THREE KNIFE at this facility ([facility], [place] ) on 05/10/24 for an assessment of cognition and language before discharging home on 05/11 with caregiver assistance 5 days/week. At the time of her inpatient cognitive- language assessment, the [employer] Mental Status examination (SLUMS) and the Quick Aphasia Batetry (QAB were administered). On the SLUMS (which measures various domains of cognition including attention, memory, and orientation), Janet scored a 7 out of 30, which is indicative of moderate-severe impairment in cognition. On the QAB, Janet scored an overall score of 7.40-10.00, indicative of moderate impairment in language skills. It was recommended that Janet discharge home with her caregiver, Milady, who manages IADLs and assists with most ADLs during the week. Milady reported that the pt's family member Don also helps with Janet's IADLs. Since discharge from the hospital, pt and caregiver state that Janet's language has improved, but Janet also states that she is more aware of her speech/language errors, which has caused increased frustration. She also is having some remaining difficulties with memory/ cognition. 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 Vikas was seen by [facility] speech therapy for one visit, but has not received any other speech therapy since her stroke. She is also receiving physical therapy at this facility twice per week. _ Since initial evaluation, Janet has been attending cognitive linguistic therapy with TRIMMER OPERATOR THREE KNIFE at this clinic for 10 visits and has made good progress toward her short term and long-term goals. Throughout the course of therapy, Janet's specific cognitive/memory needs have become more clear and treatment has focused on developing compensatory strategies to remediate memory concerns, including the use of external aids and the use of spaced retrieval training and errorless learning to memorize needed information such as names of people/pets and locations of important items. Subjective Identification Type Name Observations/Patient Presentation Pt arrived to the session on time with her caregiver who accompanied her to the session . She was engaged and motivated to participate in all session activities. Chief Complaint(s) Language,Cognitive Objective Short Term Goals 1. Janet will benefit from education re lifestyle factors for brain and cognitive health, including sleep, nutrition, socialization, exercise, etc. 10/04/24: Ongoing goal, continue. 12/07/24: Ongoing goal, continue . 2. Janet will explore external compensatory strategies through education and application, in order to select 1-2 that are a best fit for daily needs (ex: calendar and writing lists). 12/07/24: Ongoing goal, continue . 3. Janet will independently complete daily memory log for three consecutive weeks in order to improve memory/recall of daily events. NEW GOAL DISCONTINUED/COMPLETED GOALS: 1. Janet will complete confrontation naming tasks for 2 to 3-syllable words with 90 % accuracy given orthographic cues. (Goal met) 2. Janet will produce a minimum of 4 different features when presented with a target word using semantic feature analysis (SFA), given minimal verbal prompts, with 75% accuracy. (Goal met) 3. Janet and caregivers/family will benefit from education in home/carryover activities for aphasia rehabilitation. (Goal met) 4. Janet will complete a re- assessment of cognition to further guide POC r/t cognition/memory. (Discontinue ) 5. Janet will complete recall tasks of names of family/pets with 80% accuracy or more following an errorless learning session to review target names. (Discontinue) 6. Janet will accurately state location of dedicated calendar (based on trained spaced retrieval phrase) in 80% of probes independently. (Goal met) Blankmaker Goals 1. Janet will complete cognitive communication tasks with use of strategies or tools as needed given min cueing to complete baseline tasks with minimal difficulty. 2. Janet will improve recall of scheduled events occurring in the past month to 80% using external compensatory strategies to improve communication with family, friends, and medical providers . DISCONTINUED/COMPLETED GOALS: Janet will complete confrontation naming tasks for 2 to 3-syllable words with 80 % accuracy without the need for TRIMMER OPERATOR THREE KNIFE cues. (Goal met) Janet will increase her score on the QAB to an overall score of at least 8.9/10.00 ( consistent with no aphasia). ( Goal met) Janet will accurately recall names of family/pets with 80% accuracy independently given random probes (not preceded by errorless learning). (Goal met) Treatment Activities Continued to implement weekly sales planner as an external aid to enhance recall of medical appointments/personal events and to-do tasks. Continued training in use of calculator to calculate item total and subtract from allotted budget while shopping via task analysis/training in multistep sequence as Janet has difficulty ensuring she does not overspend. TRIMMER OPERATOR THREE KNIFE provided graded cueing to reduce error rate during new learning. Assessment Patient Response to Treatment Good Rehab Potential Good Impairments Identified Expressive language,Receptive language,Cognitive communication Progress Towards Goals Good Progress Assessment of Overall Progress Improving Assessment of Improvement Discussed use of weekly sales planner/schedule and use of calculator since last session. Pt reported she has been referencing her weekly schedule frequently throughout the day, but continues to forget to bring it when out in the community. Her caregiver expressed that she asks questions about date/time of appointments/events less often and looks at schedule independently now. Pt also reported she has been finding using her calculator very helpful when shopping for financial consultant, but continues to rely on assistance for her caregiver. Given initial prompting, pt was able to identify the date/ day of the week for each schedule entry. She independently identified the time/date for 2/5 appointments , and benefited from caregiver reminders re: time/date of the remaining +3. She will continue to benefit from reinforcement to write down appointments when scheduling them in order to improve her recall. Additionally, she may benefit from use of Spaced Retrieval Training to remember that she needs to reference her schedule rather than relying on assistance from TRIMMER OPERATOR THREE KNIFE /caregiver when asked questions about her plans. During training in multi-step sequence, TRIMMER OPERATOR THREE KNIFE provided initial review of the steps verbally. Following initial instruction , pt was able to complete the sequence on her calculator x2 independently. This is excellent progress from last session when she needed verbal cues to take the sequence one step at a time and utilize self-talk to increase independence with this task. She expressed she felt more confident with this task and planned to implement it during a real-life shopping scenario . Overall, good progress with use of calculator during simulated shopping activity today with pt demonstrating increased confidence. Pt is progressing toward meeting her short-term and long-term goals. Plan to discuss remaining areas of concern in next session to further guide POC and potential discharge from treatment. Continue targeting functional use of external memory aids as well as holistic lifestyle factors in following sessions. Plan Amount of Therapy Recommended 2-3 Months Frequency of Treatment Twice a Week Length of Session 30 Minutes Therapeutic Contents Auditory Comprehension, Cognitive-Linguistic Training, Expressive Language Training Provided Patient/Caregiver Instruction Home Exercise Program,Plan of Care,Questions/Concerns Therapy Recommendations Continue with Current Program
--- NOTE | 2024-12-17 12:24 | ST-OP ANOTE ---
Physical, Occupational & Speech Therapy At [facility] Speech Therapy Note PEST LOCATOR called pt as pt did not show for her 12:15 appointment. Pt apologized and stated she thought she had cancelled her appointment as she is having increased back pain today. Reminded pt of date/time of her next appointment and reviewed clinic cancelation policy. Pt expressed understanding. Schedulers notified.
--- NOTE | 2024-12-20 16:11 | ST.OPTN ---
Visit Care Team Role Provider Type Yvonne HAMZAH Calabrese Family Provider Non-Staff Address: [address] [place] [address], [id number] Nabor Starkey MD Attending Provider Physician Primary Care Provider Referring Provider Address: [address] [place] [address], [id number] SAXOPHONE TEACHER Treatment Note SAXOPHONE TEACHER Treatment Note Start: 06/25/24 13:43 Freq: Status: Active Protocol: Document 12/20/24 15:59 SS (Rec: 12/20/24 16:11 SS Desktop) Speech Pathology Treatment Note Session Time Visit Start Time 12:17 Visit Stop Time 12:55 Total Visit Minutes 38 Visit Information Visit Number 33 Plan of Care Dates 11/27/24-02/27/25 Insurance Information [facility] Setting Treatment Setting Outpatient Care Visit Type Note Type Treatment Note Next Note Type Next Note Type Treatment Note General Information Patient History Janet carlton is a 79 year old female who presented to this clinic for an outpatient evaluation of speech-language and cognition secondary to a recent stroke which resulted in expressive aphasia. She was admitted to ED at this hospital on 05/09/24 with MRI indicating acute small focal infarct in the posterior medial left temporal lobe. 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 She was seen by another SAXOPHONE TEACHER at this facility ([facility]arth[facility]uns[facility], [facility] ) on 05/10/24 for an assessment of cognition and language before discharging home on 05/11 with caregiver assistance 5 days/week. At the time of her inpatient cognitive- language assessment, the [employer] Mental Status examination (SLUMS) and the Quick Aphasia Batetry (QAB were administered). On the SLUMS (which measures various domains of cognition including attention, memory, and orientation), Janet scored a 7 out of 30, which is indicative of moderate-severe impairment in cognition. On the QAB, Janet scored an overall score of 7.40-10.00, indicative of moderate impairment in language skills. It was recommended that Janet discharge home with her caregiver, Milady, who manages IADLs and assists with most ADLs during the week. Milady reported that the pt's family member Don also helps with Janet's IADLs. Since discharge from the hospital, pt and caregiver state that Janet's language has improved, but Janet also states that she is more aware of her speech/language errors, which has caused increased frustration. She also is having some remaining difficulties with memory/ cognition. 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 Vikas was seen by [facility] speech therapy for one visit, but has not received any other speech therapy since her stroke. She is also receiving physical therapy at this facility twice per week. _ Since initial evaluation, Janet has been attending cognitive linguistic therapy with SAXOPHONE TEACHER at this clinic for 10 visits and has made good progress toward her short term and long-term goals. Throughout the course of therapy, Janet's specific cognitive/memory needs have become more clear and treatment has focused on developing compensatory strategies to remediate memory concerns, including the use of external aids and the use of spaced retrieval training and errorless learning to memorize needed information such as names of people/pets and locations of important items. Subjective Identification Type Name Observations/Patient Presentation Pt arrived to the session on time with her caregiver who accompanied her to the session . She was engaged and motivated to participate in all session activities. Chief Complaint(s) Language,Cognitive Objective Short Term Goals 1. Janet will benefit from education re lifestyle factors for brain and cognitive health, including sleep, nutrition, socialization, exercise, etc. 10/04/24: Ongoing goal, continue. 12/07/24: Ongoing goal, continue . 2. Janet will explore external compensatory strategies through education and application, in order to select 1-2 that are a best fit for daily needs (ex: calendar and writing lists). 12/07/24: Ongoing goal, continue . 3. Janet will independently complete daily memory log for three consecutive weeks in order to improve memory/recall of daily events. NEW GOAL DISCONTINUED/COMPLETED GOALS: 1. Janet will complete confrontation naming tasks for 2 to 3-syllable words with 90 % accuracy given orthographic cues. (Goal met) 2. Janet will produce a minimum of 4 different features when presented with a target word using semantic feature analysis (SFA), given minimal verbal prompts, with 75% accuracy. (Goal met) 3. Janet and caregivers/family will benefit from education in home/carryover activities for aphasia rehabilitation. (Goal met) 4. Janet will complete a re- assessment of cognition to further guide POC r/t cognition/memory. (Discontinue ) 5. Janet will complete recall tasks of names of family/pets with 80% accuracy or more following an errorless learning session to review target names. (Discontinue) 6. Janet will accurately state location of dedicated calendar (based on trained spaced retrieval phrase) in 80% of probes independently. (Goal met) Lamp Inspector Goals 1. Janet will complete cognitive communication tasks with use of strategies or tools as needed given min cueing to complete baseline tasks with minimal difficulty. 2. Janet will improve recall of scheduled events occurring in the past month to 80% using external compensatory strategies to improve communication with family, friends, and medical providers . DISCONTINUED/COMPLETED GOALS: Janet will complete confrontation naming tasks for 2 to 3-syllable words with 80 % accuracy without the need for SAXOPHONE TEACHER cues. (Goal met) Janet will increase her score on the QAB to an overall score of at least 8.9/10.00 ( consistent with no aphasia). ( Goal met) Janet will accurately recall names of family/pets with 80% accuracy independently given random probes (not preceded by errorless learning). (Goal met) Treatment Activities Reviewed use of calendar as external aid for improved recall of appointments and events. Reviewed use of word- finding strategies and implemented them in structured description task. Assessment Patient Response to Treatment Good Rehab Potential Good Impairments Identified Expressive language,Receptive language,Cognitive communication Progress Towards Goals Good Progress Assessment of Overall Progress Improving Assessment of Improvement Pt and caregiver reported that pt is now able to recall location of calendar consistently and often references it throughout the day. She also demonstrated increased recall of appointments/scheduled events throughout the day, which she has had difficulty with in the past. She will benefit from training in use of daily log/ airport planner and has ordered a weekly/daily airport planner that has yet to arrive. Pt had difficulty recalling previously trained word- finding strategies, and benefited from review and SAXOPHONE TEACHER writing strategies on whiteboard to reference during task. Both pt and caregiver reported increased instances of anomia in the past week or two, which has impacted her ability y to communicate effectively. During description task, pt required mod-max verbal and visual cues to describe target words. She benefited the most from use of circumlocution, though required cueing to identify semantic features successfully . She may benefit from modified Semantic Feature Analysis to further reinforce use of description in following sessions. She will also benefit from implementation of trained strategies in unstructured conversation to promote carryover and generalization to everyday conversation. Overall, good progress with implementation of word-finding strategies during structured activity, though minimal carryover from when these strategies were introduced before treatment focus switched to memory. Continue targeting functional use of external memory aids, holistic lifestyle factors, and word- finding strategies in following sessions. Structured activities targeting word- finding provided for home practice. Plan Amount of Therapy Recommended 2-3 Months Frequency of Treatment Twice a Week Length of Session 30 Minutes Therapeutic Contents Auditory Comprehension, Cognitive-Linguistic Training, Expressive Language Training Provided Patient/Caregiver Instruction Home Exercise Program,Plan of Care,Questions/Concerns Therapy Recommendations Continue with Current Program
--- NOTE | 2024-12-25 13:37 | ST.OPTN ---
Visit Care Team Role Provider Type HAMZAH Navas Family Provider Non-Staff Address: [address] [place] [address], [id number] Nabor Starkey MD Attending Provider Physician Primary Care Provider Referring Provider Address: [address] [place] [address], [id number] LIFE UNDERWRITER Treatment Note LIFE UNDERWRITER Treatment Note Start: 06/25/24 13:43 Freq: Status: Active Protocol: Document 12/25/24 13:25 SS (Rec: 12/25/24 13:37 SS Desktop) Speech Pathology Treatment Note Session Time Visit Start Time 12:15 Visit Stop Time 12:53 Total Visit Minutes 38 Visit Information Visit Number 34 Plan of Care Dates 11/27/24-02/27/25 Insurance Information [facility] Setting Treatment Setting Outpatient Care Visit Type Note Type Treatment Note Next Note Type Next Note Type Treatment Note General Information Patient History Janet carlton is a 79 year old female who presented to this clinic for an outpatient evaluation of speech-language and cognition secondary to a recent stroke which resulted in expressive aphasia. She was admitted to ED at this hospital on 05/09/24 with MRI indicating acute small focal infarct in the posterior medial left temporal lobe. 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 She was seen by another LIFE UNDERWRITER at this facility (Martha Lunsford, [place] ) on 05/10/24 for an assessment of cognition and language before discharging home on 05/11 with caregiver assistance 5 days/week. At the time of her inpatient cognitive- language assessment, the [employer] Mental Status examination (SLUMS) and the Quick Aphasia Batetry (QAB were administered). On the SLUMS (which measures various domains of cognition including attention, memory, and orientation), Janet scored a 7 out of 30, which is indicative of moderate-severe impairment in cognition. On the QAB, Janet scored an overall score of 7.40-10.00, indicative of moderate impairment in language skills. It was recommended that Janet discharge home with her caregiver, Milady, who manages IADLs and assists with most ADLs during the week. Milady reported that the pt's family member Don also helps with Janet's IADLs. Since discharge from the hospital, pt and caregiver state that Janet's language has improved, but Janet also states that she is more aware of her speech/language errors, which has caused increased frustration. She also is having some remaining difficulties with memory/ cognition. 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 Vikas was seen by [facility] speech therapy for one visit, but has not received any other speech therapy since her stroke. She is also receiving physical therapy at this facility twice per week. _ Since initial evaluation, Janet has been attending cognitive linguistic therapy with LIFE UNDERWRITER at this clinic for 10 visits and has made good progress toward her short term and long-term goals. Throughout the course of therapy, Janet's specific cognitive/memory needs have become more clear and treatment has focused on developing compensatory strategies to remediate memory concerns, including the use of external aids and the use of spaced retrieval training and errorless learning to memorize needed information such as names of people/pets and locations of important items. Subjective Identification Type Name Observations/Patient Presentation Pt arrived to the session on time with her caregiver who accompanied her to the session . She was engaged and motivated to participate in all session activities. Chief Complaint(s) Language,Cognitive Objective Short Term Goals 1. Janet will benefit from education re lifestyle factors for brain and cognitive health, including sleep, nutrition, socialization, exercise, etc. 10/04/24: Ongoing goal, continue. 12/07/24: Ongoing goal, continue . 2. Janet will explore external compensatory strategies through education and application, in order to select 1-2 that are a best fit for daily needs (ex: calendar and writing lists). 12/07/24: Ongoing goal, continue . 3. Janet will independently complete daily memory log for three consecutive weeks in order to improve memory/recall of daily events. NEW GOAL DISCONTINUED/COMPLETED GOALS: 1. Janet will complete confrontation naming tasks for 2 to 3-syllable words with 90 % accuracy given orthographic cues. (Goal met) 2. Janet will produce a minimum of 4 different features when presented with a target word using semantic feature analysis (SFA), given minimal verbal prompts, with 75% accuracy. (Goal met) 3. Janet and caregivers/family will benefit from education in home/carryover activities for aphasia rehabilitation. (Goal met) 4. Janet will complete a re- assessment of cognition to further guide POC r/t cognition/memory. (Discontinue ) 5. Janet will complete recall tasks of names of family/pets with 80% accuracy or more following an errorless learning session to review target names. (Discontinue) 6. Janet will accurately state location of dedicated calendar (based on trained spaced retrieval phrase) in 80% of probes independently. (Goal met) Heel Seat Sander Goals 1. Janet will complete cognitive communication tasks with use of strategies or tools as needed given min cueing to complete baseline tasks with minimal difficulty. 2. Janet will improve recall of scheduled events occurring in the past month to 80% using external compensatory strategies to improve communication with family, friends, and medical providers . DISCONTINUED/COMPLETED GOALS: Janet will complete confrontation naming tasks for 2 to 3-syllable words with 80 % accuracy without the need for LIFE UNDERWRITER cues. (Goal met) Janet will increase her score on the QAB to an overall score of at least 8.9/10.00 ( consistent with no aphasia). ( Goal met) Janet will accurately recall names of family/pets with 80% accuracy independently given random probes (not preceded by errorless learning). (Goal met) Treatment Activities Semantic Feature Analysis (SFA ) implemented to target anomia and use of circumlocution for improved word retrieval in structured task. Advanced to use of principles of SFA in conversation to target carryover and generalization of skills. Briefly discussed holistic lifestyle factors and use of external memory aids at the end of the session. Assessment Patient Response to Treatment Good Rehab Potential Good Impairments Identified Expressive language,Receptive language,Cognitive communication Progress Towards Goals Good Progress,Slow Progress Assessment of Overall Progress Improving Assessment of Improvement Pt reported ongoing difficulty with word finding, particularly when feeling frustrated or emotionally overwhelmed. During SFA task, pt was provided with a visual graphic organizer with six categories (category/group, use, action, properties, location, and association) and was asked to generate words across the six categories for personally-relevant, functional words. She produced an average of 10 content words per target photo, increasing to an average of 16 content words given semantic, phonemic, and gestural cueing . She was able to provide an effective, succinct description of each target word in 33% of opportunities, increasing to 100% given min verbal cueing to refer to semantic features. In conversation, she demonstrated occasional instances of anomia, particularly with names of people/places and everyday objects. She benefited from min cueing to describe the word in order to effectively retrieve the word. Recommended caregiver cue pt to use circumlocution when having word-finding difficulty by asking her to ?describe it ? or ?tell me about it?. Provided SFA home practice. Pt and caregiver expressed understanding of education and agreeable to recommendations. Pt and caregiver reported that she continues to demonstrate good recall of appointments/ scheduled events as well as timely tasks, such as taking her medications on time and doing chores. Pt reported she continues to focus on getting 8 hours of sleep every night and reducing stress by using strategies taught to her by her mental health counselor. Reviewed importance of adequate hydration, though pt continues to have difficulty with following through with this recommendation. Overall, good progress with implementation of word-finding strategies during structured activity and conversation. Pt will benefit from additional reinforcement to increase spontaneous independent use and reduced reliance on communication partners. Continue targeting functional use of external memory aids, holistic lifestyle factors, and word-finding strategies in following sessions given progress to date. Plan Amount of Therapy Recommended 2-3 Months Frequency of Treatment Twice a Week Length of Session 30 Minutes Therapeutic Contents Auditory Comprehension, Cognitive-Linguistic Training, Expressive Language Training Provided Patient/Caregiver Instruction Home Exercise Program,Plan of Care,Questions/Concerns Therapy Recommendations Continue with Current Program
--- NOTE | 2024-12-27 12:30 | ST-OP ANOTE ---
Physical, Occupational & Speech Therapy At [facility] Speech Therapy Note UPHOLSTERY CUTTER called pt as pt did not show to her 12:15 appointment. No answer and left a voicemail confirming next appointment. Schedulers notified.
--- NOTE | 2025-01-03 14:58 | ST.OPTN ---
Visit Care Team Role Provider Type Yvonne HAMZAH Calabrese Family Provider Non-Staff Address: [address] [place] [address], [id number] Nabor Starkey MD Attending Provider Physician Primary Care Provider Referring Provider Address: [address] [place] [address], [id number] GAS METER REPAIRER Treatment Note GAS METER REPAIRER Treatment Note Start: 06/25/24 13:43 Freq: Status: Active Protocol: Document 01/03/25 14:42 SS (Rec: 01/03/25 14:58 SS Desktop) Speech Pathology Treatment Note Session Time Visit Start Time 12:20 Visit Stop Time 12:53 Total Visit Minutes 33 Visit Information Visit Number 35 Plan of Care Dates 11/27/24-02/27/25 Insurance Information [facility] Setting Treatment Setting Outpatient Care Visit Type Note Type Treatment Note Next Note Type Next Note Type Treatment Note General Information Patient History Janet carlton is a 79 year old female who presented to this clinic for an outpatient evaluation of speech-language and cognition secondary to a recent stroke which resulted in expressive aphasia. She was admitted to ED at this hospital on 05/09/24 with MRI indicating acute small focal infarct in the posterior medial left temporal lobe. 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 She was seen by another GAS METER REPAIRER at this facility (Martha Lunsford, LOGAN ) on 05/10/24 for an assessment of cognition and language before discharging home on 05/11 with caregiver assistance 5 days/week. At the time of her inpatient cognitive- language assessment, the [employer] Mental Status examination (SLUMS) and the Quick Aphasia Batetry (QAB were administered). On the SLUMS (which measures various domains of cognition including attention, memory, and orientation), Janet scored a 7 out of 30, which is indicative of moderate-severe impairment in cognition. On the QAB, Janet scored an overall score of 7.40-10.00, indicative of moderate impairment in language skills. It was recommended that Janet discharge home with her caregiver, Milady, who manages IADLs and assists with most ADLs during the week. Milady reported that the pt's family member Don also helps with Janet's IADLs. Since discharge from the hospital, pt and caregiver state that Janet's language has improved, but Janet also states that she is more aware of her speech/language errors, which has caused increased frustration. She also is having some remaining difficulties with memory/ cognition. 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 Vikas was seen by [facility] speech therapy for one visit, but has not received any other speech therapy since her stroke. She is also receiving physical therapy at this facility twice per week. _ Since initial evaluation, Janet has been attending cognitive linguistic therapy with GAS METER REPAIRER at this clinic for 10 visits and has made good progress toward her short term and long-term goals. Throughout the course of therapy, Janet's specific cognitive/memory needs have become more clear and treatment has focused on developing compensatory strategies to remediate memory concerns, including the use of external aids and the use of spaced retrieval training and errorless learning to memorize needed information such as names of people/pets and locations of important items. Subjective Identification Type Name Observations/Patient Presentation Pt arrived to the session on time with her caregiver who accompanied her to the session . She was engaged and motivated to participate in all session activities. Chief Complaint(s) Language,Cognitive Objective Short Term Goals 1. Janet will benefit from education re lifestyle factors for brain and cognitive health, including sleep, nutrition, socialization, exercise, etc. 10/04/24: Ongoing goal, continue. 12/07/24: Ongoing goal, continue . 2. Janet will explore external compensatory strategies through education and application, in order to select 1-2 that are a best fit for daily needs (ex: calendar and writing lists). 12/07/24: Ongoing goal, continue . 3. Janet will independently complete daily memory log for three consecutive weeks in order to improve memory/recall of daily events. NEW GOAL DISCONTINUED/COMPLETED GOALS: 1. Janet will complete confrontation naming tasks for 2 to 3-syllable words with 90 % accuracy given orthographic cues. (Goal met) 2. Janet will produce a minimum of 4 different features when presented with a target word using semantic feature analysis (SFA), given minimal verbal prompts, with 75% accuracy. (Goal met) 3. Janet and caregivers/family will benefit from education in home/carryover activities for aphasia rehabilitation. (Goal met) 4. Janet will complete a re- assessment of cognition to further guide POC r/t cognition/memory. (Discontinue ) 5. Janet will complete recall tasks of names of family/pets with 80% accuracy or more following an errorless learning session to review target names. (Discontinue) 6. Janet will accurately state location of dedicated calendar (based on trained spaced retrieval phrase) in 80% of probes independently. (Goal met) Senior Oracle Database Administrator Goals 1. Janet will complete cognitive communication tasks with use of strategies or tools as needed given min cueing to complete baseline tasks with minimal difficulty. 2. Janet will improve recall of scheduled events occurring in the past month to 80% using external compensatory strategies to improve communication with family, friends, and medical providers . DISCONTINUED/COMPLETED GOALS: Janet will complete confrontation naming tasks for 2 to 3-syllable words with 80 % accuracy without the need for GAS METER REPAIRER cues. (Goal met) Janet will increase her score on the QAB to an overall score of at least 8.9/10.00 ( consistent with no aphasia). ( Goal met) Janet will accurately recall names of family/pets with 80% accuracy independently given random probes (not preceded by errorless learning). (Goal met) Treatment Activities Semantic Feature Analysis (SFA ) implemented again to target anomia and use of circumlocution for improved word retrieval in structured task. Advanced to use of principles of SFA in conversation to target carryover and generalization of skills. Recommendations re: strategies to increase ability to participate in conversations given difficulty with sustained attention and increased processing time of complex information. Provided home practice. Assessment Patient Response to Treatment Good Rehab Potential Good Impairments Identified Expressive language,Receptive language,Cognitive communication Progress Towards Goals Good Progress,Slow Progress Assessment of Overall Progress Improving Assessment of Improvement Facilitated discussion re: pt observations and concerns since last session. Pt reported she is able to recall appointments and scheduled appointments more easily. Her primary concern continues to be participating in conversations and word-finding . Her caregiver reports she continues to rely heavily on cueing from communication partners. During SFA task, pt was provided with a visual graphic organizer with six categories (category/group, use, action, properties, location, and association) and was asked to generate words across the six categories for personally- relevant, functional words. She produced an average of 8 content words per target photo , increasing to an average of 15 content words given semantic, phonemic, and gestural cueing. She was able to provide an effective, succinct description of each target word in 75% of opportunities, increasing to 100% given prompting to describe the word. In conversation, she required mod verbal cueing to describe target words when she had difficulty retrieving them. Janet would often get frustrated and benefited for positive encouragement and reminders re: progress she has made thus far. Plan to continue targeting similar structured and more contextualized word-finding activities in next sessions. Given reported difficulties with participation in conversations at home, GAS METER REPAIRER recommended pt reduce external distractions, repeat information she had understood and ask for clarification, ask communication partners to slow down, and if feeling overwhelmed, stop and take a breath. Janet expressed understanding of these strategies and stated she will attempt to implement them. She was agreeable to home practice provided. She will benefit from additional reinforcement to increase independent use of word-finding and communication strategies. Continue targeting functional use of external memory aids, holistic lifestyle factors, and word- finding strategies in following sessions given progress to date. Plan Amount of Therapy Recommended 2-3 Months Frequency of Treatment Twice a Week Length of Session 30 Minutes Therapeutic Contents Auditory Comprehension, Cognitive-Linguistic Training, Expressive Language Training Provided Patient/Caregiver Instruction Home Exercise Program,Plan of Care,Questions/Concerns Therapy Recommendations Continue with Current Program
--- NOTE | 2025-01-08 17:00 | ST.OPTN ---
Visit Care Team Role Provider Type Yvonne HAMZAH Calabrese Family Provider Non-Staff Address: [address] [place] [address], [id number] Nabor Starkey MD Attending Provider Physician Primary Care Provider Referring Provider Address: [address] [place] [address], [id number] JEWEL STAKER Treatment Note JEWEL STAKER Treatment Note Start: 06/25/24 13:43 Freq: Status: Active Protocol: Document 01/08/25 16:48 SS (Rec: 01/08/25 17:00 SS Desktop) Speech Pathology Treatment Note Session Time Visit Start Time 13:45 Visit Stop Time 14:25 Total Visit Minutes 40 Visit Information Visit Number 36 Plan of Care Dates 11/27/24-02/27/25 Insurance Information [facility] Setting Treatment Setting Outpatient Care Visit Type Note Type Treatment Note Next Note Type Next Note Type Treatment Note General Information Patient History Janet carlton is a 79 year old female who presented to this clinic for an outpatient evaluation of speech-language and cognition secondary to a recent stroke which resulted in expressive aphasia. She was admitted to ED at this hospital on 05/09/24 with MRI indicating acute small focal infarct in the posterior medial left temporal lobe. 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 She was seen by another JEWEL STAKER at this facility (Martha Lunsford, [facility]AN ) on 05/10/24 for an assessment of cognition and language before discharging home on 05/11 with caregiver assistance 5 days/week. At the time of her inpatient cognitive- language assessment, the [employer] Mental Status examination (SLUMS) and the Quick Aphasia Batetry (QAB were administered). On the SLUMS (which measures various domains of cognition including attention, memory, and orientation), Janet scored a 7 out of 30, which is indicative of moderate-severe impairment in cognition. On the QAB, Janet scored an overall score of 7.40-10.00, indicative of moderate impairment in language skills. It was recommended that Janet discharge home with her caregiver, Milady, who manages IADLs and assists with most ADLs during the week. Milady reported that the pt's family member Don also helps with Janet's IADLs. Since discharge from the hospital, pt and caregiver state that Janet's language has improved, but Janet also states that she is more aware of her speech/language errors, which has caused increased frustration. She also is having some remaining difficulties with memory/ cognition. 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 Vikas was seen by [facility] speech therapy for one visit, but has not received any other speech therapy since her stroke. She is also receiving physical therapy at this facility twice per week. _ Since initial evaluation, Janet has been attending cognitive linguistic therapy with JEWEL STAKER at this clinic for 10 visits and has made good progress toward her short term and long-term goals. Throughout the course of therapy, Janet's specific cognitive/memory needs have become more clear and treatment has focused on developing compensatory strategies to remediate memory concerns, including the use of external aids and the use of spaced retrieval training and errorless learning to memorize needed information such as names of people/pets and locations of important items. Subjective Identification Type Name Observations/Patient Presentation Pt arrived to the session on time with her caregiver who accompanied her to the session . She was engaged and motivated to participate in all session activities. Chief Complaint(s) Language,Cognitive Objective Short Term Goals 1. Janet will benefit from education re lifestyle factors for brain and cognitive health, including sleep, nutrition, socialization, exercise, etc. 10/04/24: Ongoing goal, continue. 12/07/24: Ongoing goal, continue . 2. Janet will explore external compensatory strategies through education and application, in order to select 1-2 that are a best fit for daily needs (ex: calendar and writing lists). 12/07/24: Ongoing goal, continue . 3. Janet will independently complete daily memory log for three consecutive weeks in order to improve memory/recall of daily events. NEW GOAL 4. Janet will implement the compensatory strategy of circumlocution with 80% accuracy with minimal cueing to repair communication breakdowns in daily conversations. NEW GOAL DISCONTINUED/COMPLETED GOALS: 1. Janet will complete confrontation naming tasks for 2 to 3-syllable words with 90 % accuracy given orthographic cues. (Goal met) 2. Janet will produce a minimum of 4 different features when presented with a target word using semantic feature analysis (SFA), given minimal verbal prompts, with 75% accuracy. (Goal met) 3. Janet and caregivers/family will benefit from education in home/carryover activities for aphasia rehabilitation. (Goal met) 4. Janet will complete a re- assessment of cognition to further guide POC r/t cognition/memory. (Discontinue ) 5. Janet will complete recall tasks of names of family/pets with 80% accuracy or more following an errorless learning session to review target names. (Discontinue) 6. Janet will accurately state location of dedicated calendar (based on trained spaced retrieval phrase) in 80% of probes independently. (Goal met) Area Mechanic Goals 1. Janet will complete cognitive communication tasks with use of strategies or tools as needed given min cueing to complete baseline tasks with minimal difficulty. 2. Janet will improve recall of scheduled events occurring in the past month to 80% using external compensatory strategies to improve communication with family, friends, and medical providers . DISCONTINUED/COMPLETED GOALS: Janet will complete confrontation naming tasks for 2 to 3-syllable words with 80 % accuracy without the need for JEWEL STAKER cues. (Goal met) Janet will increase her score on the QAB to an overall score of at least 8.9/10.00 ( consistent with no aphasia). ( Goal met) Janet will accurately recall names of family/pets with 80% accuracy independently given random probes (not preceded by errorless learning). (Goal met) Treatment Activities Reviewed recommendation re: memory log or capacity planner as external memory aid. Structured naming activity implemented to target anomia and use of circumlocution for improved word retrieval in structured task. Advanced to use of circumlocution conversation to target carryover and generalization of skills. Briefly reviewed holistic lifestyle factors at the end of the session. Provided home practice. Assessment Patient Response to Treatment Good Rehab Potential Good Impairments Identified Expressive language,Receptive language,Cognitive communication Progress Towards Goals Good Progress,Slow Progress Assessment of Overall Progress Improving Assessment of Improvement Pt reported she has not been able to purchase daily capacity planner or memory book to use as an external memory aid. Recommended pt bring a blank notebook to next session, which she and her caregiver were agreeable to. Pt was highly receptive to confrontation naming task and was able to complete confrontation naming with 94% accuracy independently, increasing to 100% accuracy given phonemic or semantic cue . She was able to utilize circumlocution effectively with use of SFA chart as a visual aid in 85% of opportunities. In conversation , she required min-mod verbal cueing to describe target words when she had difficulty retrieving them. She continued to get frustrated and benefited from taking a deep breath and positive affirmation. Created self- advocacy phrase with pt to use during conversations with less familiar communication partners. Pt reported she has been doing well with implementing holistic lifestyle factors. Plan to continue targeting similar structured and more contextualized word-finding activities in next sessions. POC updated to include word- finding STG and sent to PCP. Plan Amount of Therapy Recommended 2-3 Months Frequency of Treatment Twice a Week Length of Session 30 Minutes Therapeutic Contents Auditory Comprehension, Cognitive-Linguistic Training, Expressive Language Training Provided Patient/Caregiver Instruction Home Exercise Program,Plan of Care,Questions/Concerns Therapy Recommendations Continue with Current Program
--- NOTE | 2025-01-08 17:01 | ST.OPPOC ---
Physical, Occupational & Speech Therapy At [facility] Visit Care Team Role Provider Type Yvonne HAMZAH Calabrese Family Provider Non-Staff Address: [address] [place] [address], [id number] Nabor Starkey MD Attending Provider Physician Primary Care Provider Referring Provider Address: [address] [place] [address], [id number] Speech Pathology Plan of Care Plan of Care Dates 11/27/24-02/27/25 Referring Provider Nabor Starkey Patient History Janet carlton is a 79 year old female who presented to this clinic for an outpatient evaluation of speech-language and cognition secondary to a recent stroke which resulted in expressive aphasia. She was admitted to ED at this hospital on 05/09/24 with MRI indicating acute small focal infarct in the posterior medial left temporal lobe. 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 She was seen by another VENDOR SPECIALIST at this facility ( Martha Lunsford, [place]) on 05/10/24 for an assessment of cognition and language before discharging home on 05/11/24 with caregiver assistance 5 days/week. At the time of her inpatient cognitive-language assessment, the [facility] Mental Status examination (SLUMS) and the Quick Aphasia Batetry (QAB were administered). On the SLUMS (which measures various domains of cognition including attention, memory, and orientation), Janet scored a 7 out of 30, which is indicative of moderate-severe impairment in cognition. On the QAB, Janet scored an overall score of 7.40-10 .00, indicative of moderate impairment in language skills. It was recommended that Janet discharge home with her caregiver, Milady, who manages IADLs and assists with most ADLs during the week. Milady reported that the pt's family member Don also helps with Janet's IADLs. Since discharge from the hospital, pt and caregiver state that Janet's language has improved, but Janet also states that she is more aware of her speech/language errors, which has caused increased frustration. She also is having some remaining difficulties with memory/ cognition. 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 Vikas was seen by [facility] speech therapy for one visit, but has not received any other speech therapy since her stroke. She is also receiving physical therapy at this facility twice per week. Since initial evaluation, Janet has been attending cognitive linguistic therapy with VENDOR SPECIALIST at this clinic for 10 visits and has made good progress toward her short term and long-term goals. Throughout the course of therapy, Janet's specific cognitive/memory needs have become more clear and treatment has focused on developing compensatory strategies to remediate memory concerns, including the use of external aids and the use of spaced retrieval training and errorless learning to memorize needed information such as names of people/pets and locations of important items. Impairments Identified Expressive language,Receptive language,Cognitive communication Progress Towards Goals Good Progress,Slow Progress Self-awareness of Cognitive- Situational awareness (re Communication Deficits General Tasks and Demands Mild Household Tasks Mild Interpersonal Interactions Moderate Community Moderate MBS Comments Oropharyngeal dysphagia with reduced OM strength . Mastication efficiency compromised due to poor dentition. Laryngeal penetration was noted as well as esophageal retention, narrowing and retrograde flow near mid chest. Referral to GI is recommended. Pt noted she has had EGD many years ago. Additionally she has not had GERD tretment for many years (per pt's report.) Recommended Referrals GI Consult Short Term Goals 1. Janet will benefit from education re lifestyle factors for brain and cognitive health, including sleep, nutrition, socialization, exercise, etc. 10/04/24: Ongoing goal, continue. 12/07/24: Ongoing goal, continue. 2. Janet will explore external compensatory strategies through education and application, in order to select 1-2 that are a best fit for daily needs (ex: calendar and writing lists). 12/07/24: Ongoing goal, continue. 3. Janet will independently complete daily memory log for three consecutive weeks in order to improve memory/recall of daily events. NEW GOAL 4. Janet will implement the compensatory strategy of circumlocution with 80% accuracy with minimal cueing to repair communication breakdowns in daily conversations. NEW GOAL DISCONTINUED/COMPLETED GOALS: 1. Janet will complete confrontation naming tasks for 2 to 3-syllable words with 90% accuracy given orthographic cues. (Goal met) 2. Janet will produce a minimum of 4 different features when presented with a target word using semantic feature analysis (SFA), given minimal verbal prompts, with 75% accuracy. (Goal met) 3. Janet and caregivers/family will benefit from education in home/carryover activities for aphasia rehabilitation. (Goal met) 4. Janet will complete a re-assessment of cognition to further guide POC r/t cognition/ memory. (Discontinue) 5. Janet will complete recall tasks of names of family/pets with 80% accuracy or more following an errorless learning session to review target names. (Discontinue) 6. Janet will accurately state location of dedicated calendar (based on trained spaced retrieval phrase) in 80% of probes independently . (Goal met) Long-Term Goals 1. Janet will complete cognitive communication tasks with use of strategies or tools as needed given min cueing to complete baseline tasks with minimal difficulty. 2. Janet will improve recall of scheduled events occurring in the past month to 80% using external compensatory strategies to improve communication with family, friends, and medical providers. DISCONTINUED/COMPLETED GOALS: Janet will complete confrontation naming tasks for 2 to 3-syllable words with 80% accuracy without the need for VENDOR SPECIALIST cues. (Goal met) Janet will increase her score on the QAB to an overall score of at least 8.9/10.00 (consistent with no aphasia). (Goal met) Janet will accurately recall names of family/pets with 80% accuracy independently given random probes (not preceded by errorless learning). ( Goal met) Comment: Electronically Signed by: LOGAN Aguiar 01/08/25 1894 If you are in agreement with this Plan of Care, please return a signed and dated copy. I have reviewed this Plan of Care and certify that the skilled therapy services above are required to meet the patient?s needs. Physician Signature Date Printed Name and Credentials Clinical Instructor Signature Printed Name and Credentials
--- NOTE | 2025-01-10 13:45 | ST.OPTN ---
Visit Care Team Role Provider Type Yvonne HAMZAH Calabrese Family Provider Non-Staff Address: [address] [place] [address], [id number] Nabor Starkey MD Attending Provider Physician Primary Care Provider Referring Provider Address: [address] [place] [address], [id number] WOOL BRUSHER Treatment Note WOOL BRUSHER Treatment Note Start: 06/25/24 13:43 Freq: Status: Active Protocol: Document 01/10/25 13:33 SS (Rec: 01/10/25 13:45 SS Desktop) Speech Pathology Treatment Note Session Time Visit Start Time 12:15 Visit Stop Time 12:45 Total Visit Minutes 30 Visit Information Visit Number 37 Plan of Care Dates 11/27/24-02/27/25 Insurance Information [facility] Setting Treatment Setting Outpatient Care Visit Type Note Type Treatment Note Next Note Type Next Note Type Treatment Note General Information Patient History Janet carlton is a 79 year old female who presented to this clinic for an outpatient evaluation of speech-language and cognition secondary to a recent stroke which resulted in expressive aphasia. She was admitted to ED at this hospital on 05/09/24 with MRI indicating acute small focal infarct in the posterior medial left temporal lobe. 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 She was seen by another WOOL BRUSHER at this facility (Martha Lunsford, [place] ) on 05/10/24 for an assessment of cognition and language before discharging home on 05/11 with caregiver assistance 5 days/week. At the time of her inpatient cognitive- language assessment, the [employer] Mental Status examination (SLUMS) and the Quick Aphasia Batetry (QAB were administered). On the SLUMS (which measures various domains of cognition including attention, memory, and orientation), Janet scored a 7 out of 30, which is indicative of moderate-severe impairment in cognition. On the QAB, Janet scored an overall score of 7.40-10.00, indicative of moderate impairment in language skills. It was recommended that Janet discharge home with her caregiver, Milady, who manages IADLs and assists with most ADLs during the week. Milady reported that the pt's family member Don also helps with Janet's IADLs. Since discharge from the hospital, pt and caregiver state that Janet's language has improved, but Janet also states that she is more aware of her speech/language errors, which has caused increased frustration. She also is having some remaining difficulties with memory/ cognition. 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 Vikas was seen by [facility] speech therapy for one visit, but has not received any other speech therapy since her stroke. She is also receiving physical therapy at this facility twice per week. _ Since initial evaluation, Janet has been attending cognitive linguistic therapy with WOOL BRUSHER at this clinic for 10 visits and has made good progress toward her short term and long-term goals. Throughout the course of therapy, Janet's specific cognitive/memory needs have become more clear and treatment has focused on developing compensatory strategies to remediate memory concerns, including the use of external aids and the use of spaced retrieval training and errorless learning to memorize needed information such as names of people/pets and locations of important items. Subjective Identification Type Name Observations/Patient Presentation Pt arrived to the session on time with her caregiver who accompanied her to the session . She was engaged and motivated to participate in all session activities. Chief Complaint(s) Language,Cognitive Objective Short Term Goals 1. Janet will benefit from education re lifestyle factors for brain and cognitive health, including sleep, nutrition, socialization, exercise, etc. 10/04/24: Ongoing goal, continue. 12/07/24: Ongoing goal, continue . 2. Janet will explore external compensatory strategies through education and application, in order to select 1-2 that are a best fit for daily needs (ex: calendar and writing lists). 12/07/24: Ongoing goal, continue . 3. Janet will independently complete daily memory log for three consecutive weeks in order to improve memory/recall of daily events. NEW GOAL 4. Janet will implement the compensatory strategy of circumlocution with 80% accuracy with minimal cueing to repair communication breakdowns in daily conversations. NEW GOAL DISCONTINUED/COMPLETED GOALS: 1. Janet will complete confrontation naming tasks for 2 to 3-syllable words with 90 % accuracy given orthographic cues. (Goal met) 2. Janet will produce a minimum of 4 different features when presented with a target word using semantic feature analysis (SFA), given minimal verbal prompts, with 75% accuracy. (Goal met) 3. Janet and caregivers/family will benefit from education in home/carryover activities for aphasia rehabilitation. (Goal met) 4. Janet will complete a re- assessment of cognition to further guide POC r/t cognition/memory. (Discontinue ) 5. Janet will complete recall tasks of names of family/pets with 80% accuracy or more following an errorless learning session to review target names. (Discontinue) 6. Janet will accurately state location of dedicated calendar (based on trained spaced retrieval phrase) in 80% of probes independently. (Goal met) Creel Selector Goals 1. Janet will complete cognitive communication tasks with use of strategies or tools as needed given min cueing to complete baseline tasks with minimal difficulty. 2. Janet will improve recall of scheduled events occurring in the past month to 80% using external compensatory strategies to improve communication with family, friends, and medical providers . DISCONTINUED/COMPLETED GOALS: Janet will complete confrontation naming tasks for 2 to 3-syllable words with 80 % accuracy without the need for WOOL BRUSHER cues. (Goal met) Janet will increase her score on the QAB to an overall score of at least 8.9/10.00 ( consistent with no aphasia). ( Goal met) Janet will accurately recall names of family/pets with 80% accuracy independently given random probes (not preceded by errorless learning). (Goal met) Treatment Activities Initiated use of monthly land use planner and memory book as external memory aids. Provided education and training with graded cueing as activity progressed. Discussed home practice. Assessment Patient Response to Treatment Good Rehab Potential Good Impairments Identified Expressive language,Receptive language,Cognitive communication Progress Towards Goals Good Progress,Slow Progress Assessment of Overall Progress Improving Assessment of Improvement Janet brought monthly land use planner and memory book to session today. Reviewed purpose of monthly land use planner and memory log , including constant review of day/date, practice with written expression and reading comprehension abilities, targeting short term memory ( what did we just do) as well as prospective memory (what do we have to do for tomorrow), track progress in therapies, focus attention, and train with compensatory tool. Pt expressing understanding and stated she was highly motivated to initiate regular use of these tools. Given monthly land use planner (pre-filled by caregiver), pt was able to identify date/time of various appointments and events with 72% accuracy, increasing to 100% given min verbal cueing to scan the page. Recommended pt add sticky note to the cover to help her remember to cross of the day each evening to increase her orientation. Pt agreeable to created sticky note given initial instruction. In memory log, pt created entry for today. She wrote date and day of the week accurately at the top following verbal cueing to check her land use planner. She then created a to-do list independently following initial reminder to check her land use planner for scheduled events. Initiated recall of trained phrase ?what do you do every day to remember better?? using Spaced Retrieval Training principles. Pt accurately responded ?I fill out and check my land use planner and notebook? given 10-minute delay. She will benefit from additional reinforcement to recall to fill out and regularly check these two external memory aids . Recommended caregiver cue pt daily to fill out her memory book and check the book and the land use planner. She expressed understanding. Additionally, began discussing sections for memory book, including notes for dr?s appointments, medication list, and passwords . Continue at frequency of 1-2 times a week to increase independence with use of external memory aids and word- finding strategies. Plan Amount of Therapy Recommended 2-3 Months Frequency of Treatment Twice a Week Length of Session 30 Minutes Therapeutic Contents Auditory Comprehension, Cognitive-Linguistic Training, Expressive Language Training Provided Patient/Caregiver Instruction Home Exercise Program,Plan of Care,Questions/Concerns Therapy Recommendations Continue with Current Program
--- NOTE | 2025-01-15 12:28 | ST-OP ANOTE ---
Physical, Occupational & Speech Therapy At [facility] Speech Therapy Note Pt did not show to her 12:15 appointment. SECOND MILLER called and left a message. Confirmed date/time of next appointment. Schedulers notified.
--- NOTE | 2025-01-21 16:02 | ST.OPTN ---
Visit Care Team Role Provider Type Yvonne HAMZAH Calabrese Family Provider Non-Staff Address: [address] [place] [address], [id number] Nabor Starkey MD Attending Provider Physician Primary Care Provider Referring Provider Address: [address] [place] [address], [id number] FAMILY LIVING EDUCATOR Treatment Note FAMILY LIVING EDUCATOR Treatment Note Start: 06/25/24 13:43 Freq: Status: Active Protocol: Document 01/21/25 15:52 SS (Rec: 01/21/25 16:02 SS Desktop) Speech Pathology Treatment Note Session Time Visit Start Time 12:20 Visit Stop Time 12:50 Total Visit Minutes 30 Visit Information Visit Number [id number] Plan of Care Dates 11/27/24-02/27/25 Insurance Information [facility] Setting Treatment Setting Outpatient Care Visit Type Note Type Treatment Note Next Note Type Next Note Type Treatment Note General Information Patient History Janet carlton is a 79 year old female who presented to this clinic for an outpatient evaluation of speech-language and cognition secondary to a recent stroke which resulted in expressive aphasia. She was admitted to ED at this hospital on 05/09/24 with MRI indicating acute small focal infarct in the posterior medial left temporal lobe. 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 She was seen by another FAMILY LIVING EDUCATOR at this facility (Martha Lunsford, [facility] ) on 05/10/24 for an assessment of cognition and language before discharging home on 05/11 with caregiver assistance 5 days/week. At the time of her inpatient cognitive- language assessment, the [employer] Mental Status examination (SLUMS) and the Quick Aphasia Batetry (QAB were administered). On the SLUMS (which measures various domains of cognition including attention, memory, and orientation), Janet scored a 7 out of 30, which is indicative of moderate-severe impairment in cognition. On the QAB, Janet scored an overall score of 7.40-10.00, indicative of moderate impairment in language skills. It was recommended that Janet discharge home with her caregiver, Milady, who manages IADLs and assists with most ADLs during the week. Milady reported that the pt's family member Don also helps with Janet's IADLs. Since discharge from the hospital, pt and caregiver state that Janet's language has improved, but Janet also states that she is more aware of her speech/language errors, which has caused increased frustration. She also is having some remaining difficulties with memory/ cognition. 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 Vikas was seen by [facility] speech therapy for one visit, but has not received any other speech therapy since her stroke. She is also receiving physical therapy at this facility twice per week. _ Since initial evaluation, Janet has been attending cognitive linguistic therapy with FAMILY LIVING EDUCATOR at this clinic for 10 visits and has made good progress toward her short term and long-term goals. Throughout the course of therapy, Janet's specific cognitive/memory needs have become more clear and treatment has focused on developing compensatory strategies to remediate memory concerns, including the use of external aids and the use of spaced retrieval training and errorless learning to memorize needed information such as names of people/pets and locations of important items. Subjective Identification Type Name Observations/Patient Presentation Pt arrived to the session late with her caregiver who accompanied her to the session . She was engaged and motivated to participate in all session activities. Chief Complaint(s) Language,Cognitive Objective Short Term Goals 1. Janet will benefit from education re lifestyle factors for brain and cognitive health, including sleep, nutrition, socialization, exercise, etc. 10/04/24: Ongoing goal, continue. 12/07/24: Ongoing goal, continue . 2. Janet will explore external compensatory strategies through education and application, in order to select 1-2 that are a best fit for daily needs (ex: calendar and writing lists). 12/07/24: Ongoing goal, continue . 3. Janet will independently complete daily memory log for three consecutive weeks in order to improve memory/recall of daily events. NEW GOAL 4. Jnaet will implement the compensatory strategy of circumlocution with 80% accuracy with minimal cueing to repair communication breakdowns in daily conversations. NEW GOAL DISCONTINUED/COMPLETED GOALS: 1. Janet will complete confrontation naming tasks for 2 to 3-syllable words with 90 % accuracy given orthographic cues. (Goal met) 2. Janet will produce a minimum of 4 different features when presented with a target word using semantic feature analysis (SFA), given minimal verbal prompts, with 75% accuracy. (Goal met) 3. Janet and caregivers/family will benefit from education in home/carryover activities for aphasia rehabilitation. (Goal met) 4. Janet will complete a re- assessment of cognition to further guide POC r/t cognition/memory. (Discontinue ) 5. Janet will complete recall tasks of names of family/pets with 80% accuracy or more following an errorless learning session to review target names. (Discontinue) 6. Janet will accurately state location of dedicated calendar (based on trained spaced retrieval phrase) in 80% of probes independently. (Goal met) Snf Goals 1. Janet will complete cognitive communication tasks with use of strategies or tools as needed given min cueing to complete baseline tasks with minimal difficulty. 2. Janet will improve recall of scheduled events occurring in the past month to 80% using external compensatory strategies to improve communication with family, friends, and medical providers . DISCONTINUED/COMPLETED GOALS: Janet will complete confrontation naming tasks for 2 to 3-syllable words with 80 % accuracy without the need for FAMILY LIVING EDUCATOR cues. (Goal met) Janet will increase her score on the QAB to an overall score of at least 8.9/10.00 ( consistent with no aphasia). ( Goal met) Janet will accurately recall names of family/pets with 80% accuracy independently given random probes (not preceded by errorless learning). (Goal met) Treatment Activities Discussed use of monthly information systems coordinator and memory book as external memory aids. Provided education re: strategies for locating items. Structured practice of word-finding with picture stimuli and discussion re: strategies for word- finding in conversation. Graded cueing as activity progressed. Discussed home practice. Assessment Patient Response to Treatment Good Rehab Potential Good Impairments Identified Expressive language,Receptive language,Cognitive communication Progress Towards Goals Good Progress,Slow Progress Assessment of Overall Progress Improving Assessment of Improvement Pt did not bring calendar or memory book to session today as she had misplaced them. FAMILY LIVING EDUCATOR provided recommendations for finding everyday item more easily, including having a designated place, placing labels on drawers/cabinets, and placing a sign on the door with list of items pt needs to place in handbag before leaving her home. Pt expressed understanding of strategies, but stated she would prefer to be able to find items rather than implement above strategies at this time. Encouraged pt to consider implementing above strategies for increased independence and ability to complete tasks with more ease. Pt reported she had many people visit her in the past week and had increased difficulty with word-finding, at one point snapping at one of her friends. Discussed importance of setting clear expectations with close family /friends and telling them how she would like to handle such situations. For example, telling them that she would like them to say the target word vs. cue/prompt her so she is able to retrieve it independently. Also encouraged pt to tell close family/ friends about residual impairments from her CVA. Pt with good recall of self- advocacy statement created in prior sessions. During word- finding activity, pt was able to name 69% of target words, increasing to 10% with circumlocution and phonemic/ semantic cueing. She was able to produce an effective and succinct description in all opportunities. Encouraged pt to continue to utilize circumlocution in everyday word-fining situations to reduce frustration and communication breakdowns, which she was agreeable to. Plan to continue at frequency of 1-2 times a week to increase independence with use of external memory aids and word-finding strategies. Plan Amount of Therapy Recommended 2-3 Months Frequency of Treatment Twice a Week Length of Session 30 Minutes Therapeutic Contents Auditory Comprehension, Cognitive-Linguistic Training, Expressive Language Training Provided Patient/Caregiver Instruction Home Exercise Program,Plan of Care,Questions/Concerns Therapy Recommendations Continue with Current Program
--- NOTE | 2025-01-23 16:50 | ST.OPTN ---
Visit Care Team Role Provider Type HAMZAH Navas Family Provider Non-Staff Address: [address] [place] [address], [id number] Nabor Starkey MD Attending Provider Physician Primary Care Provider Referring Provider Address: [address] [place] [address], [id number] SPINNER TENDER Treatment Note SPINNER TENDER Treatment Note Start: 06/25/24 13:43 Freq: Status: Active Protocol: Document 01/23/25 16:36 SS (Rec: 01/23/25 16:50 SS Desktop) Speech Pathology Treatment Note Session Time Visit Start Time 14:30 Visit Stop Time 15:05 Total Visit Minutes 35 Visit Information Visit Number 39 Plan of Care Dates 11/27/24-02/27/25 Insurance Information [facility] Setting Treatment Setting Outpatient Care Visit Type Note Type Treatment Note Next Note Type Next Note Type Progress Note General Information Patient History Janet carlton is a 79 year old female who presented to this clinic for an outpatient evaluation of speech-language and cognition secondary to a recent stroke which resulted in expressive aphasia. She was admitted to ED at this hospital on 05/09/24 with MRI indicating acute small focal infarct in the posterior medial left temporal lobe. 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 She was seen by another SPINNER TENDER at this facility (Martha Lunsford, [facility] ) on 05/10/24 for an assessment of cognition and language before discharging home on 05/11 with caregiver assistance 5 days/week. At the time of her inpatient cognitive- language assessment, the [employer] Mental Status examination (SLUMS) and the Quick Aphasia Batetry (QAB were administered). On the SLUMS (which measures various domains of cognition including attention, memory, and orientation), Janet scored a 7 out of 30, which is indicative of moderate-severe impairment in cognition. On the QAB, Janet scored an overall score of 7.40-10.00, indicative of moderate impairment in language skills. It was recommended that Janet discharge home with her caregiver, Milady, who manages IADLs and assists with most ADLs during the week. Milady reported that the pt's family member Don also helps with Janet's IADLs. Since discharge from the hospital, pt and caregiver state that Janet's language has improved, but Janet also states that she is more aware of her speech/language errors, which has caused increased frustration. She also is having some remaining difficulties with memory/ cognition. 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 Vikas was seen by [facility] speech therapy for one visit, but has not received any other speech therapy since her stroke. She is also receiving physical therapy at this facility twice per week. _ Since initial evaluation, Janet has been attending cognitive linguistic therapy with SPINNER TENDER at this clinic for 10 visits and has made good progress toward her short term and long-term goals. Throughout the course of therapy, Janet's specific cognitive/memory needs have become more clear and treatment has focused on developing compensatory strategies to remediate memory concerns, including the use of external aids and the use of spaced retrieval training and errorless learning to memorize needed information such as names of people/pets and locations of important items. Subjective Identification Type Name Observations/Patient Presentation Pt arrived to the session on time with her caregiver who accompanied her to the session . She was engaged and motivated to participate in all session activities. Chief Complaint(s) Language,Cognitive Objective Short Term Goals 1. Janet will benefit from education re lifestyle factors for brain and cognitive health, including sleep, nutrition, socialization, exercise, etc. 10/04/24: Ongoing goal, continue. 12/07/24: Ongoing goal, continue . 2. Janet will explore external compensatory strategies through education and application, in order to select 1-2 that are a best fit for daily needs (ex: calendar and writing lists). 12/07/24: Ongoing goal, continue . 3. Janet will independently complete daily memory log for three consecutive weeks in order to improve memory/recall of daily events. NEW GOAL 4. Janet will implement the compensatory strategy of circumlocution with 80% accuracy with minimal cueing to repair communication breakdowns in daily conversations. NEW GOAL DISCONTINUED/COMPLETED GOALS: 1. Janet will complete confrontation naming tasks for 2 to 3-syllable words with 90 % accuracy given orthographic cues. (Goal met) 2. Janet will produce a minimum of 4 different features when presented with a target word using semantic feature analysis (SFA), given minimal verbal prompts, with 75% accuracy. (Goal met) 3. Janet and caregivers/family will benefit from education in home/carryover activities for aphasia rehabilitation. (Goal met) 4. Janet will complete a re- assessment of cognition to further guide POC r/t cognition/memory. (Discontinue ) 5. Janet will complete recall tasks of names of family/pets with 80% accuracy or more following an errorless learning session to review target names. (Discontinue) 6. Janet will accurately state location of dedicated calendar (based on trained spaced retrieval phrase) in 80% of probes independently. (Goal met) Mergers And Acquisitions Attorney Goals 1. Janet will complete cognitive communication tasks with use of strategies or tools as needed given min cueing to complete baseline tasks with minimal difficulty. 2. Janet will improve recall of scheduled events occurring in the past month to 80% using external compensatory strategies to improve communication with family, friends, and medical providers . DISCONTINUED/COMPLETED GOALS: Janet will complete confrontation naming tasks for 2 to 3-syllable words with 80 % accuracy without the need for SPINNER TENDER cues. (Goal met) Janet will increase her score on the QAB to an overall score of at least 8.9/10.00 ( consistent with no aphasia). ( Goal met) Janet will accurately recall names of family/pets with 80% accuracy independently given random probes (not preceded by errorless learning). (Goal met) Treatment Activities Discussed current concerns and observations as well as potential referral to neuropsych evaluation. Education re: strategies targeting increased ability to locate common items in the home as well as remembering to bring items when in the community. Discussed home practice. Assessment Patient Response to Treatment Good Rehab Potential Good Impairments Identified Expressive language,Receptive language,Cognitive communication Progress Towards Goals Good Progress,Slow Progress Assessment of Overall Progress Improving Assessment of Improvement SPINNER TENDER facilitated discussion re: current observations and concerns Pt again did not bring calendar or memory book to session. Her caregiver reported that pt has recently started placing important items not in their designated locations. She also reported increased attempts at organizing and ?shuffling? items as well as a memory decline in the past 4-6 months . SPINNER TENDER recommended referral for neurospych evaluation given these concerns. Pt expressed she will consider this. Recommended use of labels on drawers, cabinets, and designated areas for particular items to reduce pt misplacing or losing them. Pt assisted SPINNER TENDER in creating labels on large sticky notes for the following: meds, glasses, other, memory book + calendar, and watch. Caregiver will assist in taking labels and encouraging pt to place items in designated places to create habitual routine. SPINNER TENDER also recommended creating visual aid listing items pt needs to bring with her when leaving her home (e.g., glasses, phone, memory book, etc) as she often forgets items at home. Pt was resistant to this idea, stating ?I?ll just remember, if I try hard enough.? SPINNER TENDER discussed pt?s difficulties and how they seem to impact her life participation. Pt was agreeable with this, but was not interested in creating visual aid at this time. Treatment to continue shifting toward implementing external memory aids targeting specific areas of challenge with collaboration with pt and pt?s caregiver to increase overall life participation. Plan to continue at frequency of 1-2 times a week to increase independence with use of external memory aids and word- finding strategies. Plan Amount of Therapy Recommended 2-3 Months Frequency of Treatment Twice a Week Length of Session 30 Minutes Therapeutic Contents Auditory Comprehension, Cognitive-Linguistic Training, Expressive Language Training Provided Patient/Caregiver Instruction Home Exercise Program,Plan of Care,Questions/Concerns Therapy Recommendations Continue with Current Program
--- NOTE | 2025-01-29 17:30 | ST.OPTN ---
Visit Care Team Role Provider Type Yvonne HAMZAH Calabrese Family Provider Non-Staff Address: [address] [place] [address], [id number] Nabor Starkey MD Attending Provider Physician Primary Care Provider Referring Provider Address: [address] [place] [address], [id number] BOX ANNE[facility]ER Treatment Note BOX [facility]NEALER Treatment Note Start: 06/25/24 13:43 Freq: Status: Active Protocol: Document 01/29/25 17:15 SS (Rec: 01/29/25 17:30 SS Desktop) Speech Pathology Treatment Note Session Time Visit Start Time 10:53 Visit Stop Time 11:25 Total Visit Minutes 32 Visit Information Visit Number 40 Plan of Care Dates 11/27/24-02/27/25 Insurance Information [facility] Setting Treatment Setting Outpatient Care Visit Type Note Type Treatment Note Next Note Type Next Note Type Treatment Note General Information Patient History Janet carlton is a 79 year old female who presented to this clinic for an outpatient evaluation of speech-language and cognition secondary to a recent stroke which resulted in expressive aphasia. She was admitted to ED at this hospital on 05/09/24 with MRI indicating acute small focal infarct in the posterior medial left temporal lobe. 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 She was seen by another [facility] ANNE[facility] at this facility ([facility], [facility] ) on 05/10/24 for an assessment of cognition and language before discharging home on 05/11 with caregiver assistance 5 days/week. At the time of her inpatient cognitive- language assessment, the [employer] Mental Status examination (SLUMS) and the Quick Aphasia Batetry (QAB were administered). On the SLUMS (which measures various domains of cognition including attention, memory, and orientation), Janet scored a 7 out of 30, which is indicative of moderate-severe impairment in cognition. On the QAB, Janet scored an overall score of 7.40-10.00, indicative of moderate impairment in language skills. It was recommended that Janet discharge home with her caregiver, Milady, who manages IADLs and assists with most ADLs during the week. Milady reported that the pt's family member Don also helps with Janet's IADLs. Since discharge from the hospital, pt and caregiver state that Janet's language has improved, but Janet also states that she is more aware of her speech/language errors, which has caused increased frustration. She also is having some remaining difficulties with memory/ cognition. 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 Vikas was seen by [facility] speech therapy for one visit, but has not received any other speech therapy since her stroke. She is also receiving physical therapy at this facility twice per week. _ Since initial evaluation, Janet has been attending cognitive linguistic therapy with BOX ANNEALER at this clinic for 10 visits and has made good progress toward her short term and long-term goals. Throughout the course of therapy, Janet's specific cognitive/memory needs have become more clear and treatment has focused on developing compensatory strategies to remediate memory concerns, including the use of external aids and the use of spaced retrieval training and errorless learning to memorize needed information such as names of people/pets and locations of important items. Subjective Identification Type Name Observations/Patient Presentation Pt arrived to the session late with her caregiver who accompanied her to the session . She was agreeable to a shorter session. She was engaged and motivated to participate in all session activities. Chief Complaint(s) Language,Cognitive Objective Short Term Goals 1. Janet will benefit from education re lifestyle factors for brain and cognitive health, including sleep, nutrition, socialization, exercise, etc. 10/04/24: Ongoing goal, continue. 12/07/24: Ongoing goal, continue . 2. Janet will explore external compensatory strategies through education and application, in order to select 1-2 that are a best fit for daily needs (ex: calendar and writing lists). 12/07/24: Ongoing goal, continue . 3. Janet will independently complete daily memory log for three consecutive weeks in order to improve memory/recall of daily events. NEW GOAL 4. Janet will implement the compensatory strategy of circumlocution with 80% accuracy with minimal cueing to repair communication breakdowns in daily conversations. NEW GOAL DISCONTINUED/COMPLETED GOALS: 1. Janet will complete confrontation naming tasks for 2 to 3-syllable words with 90 % accuracy given orthographic cues. (Goal met) 2. Janet will produce a minimum of 4 different features when presented with a target word using semantic feature analysis (SFA), given minimal verbal prompts, with 75% accuracy. (Goal met) 3. Janet and caregivers/family will benefit from education in home/carryover activities for aphasia rehabilitation. (Goal met) 4. Janet will complete a re- assessment of cognition to further guide POC r/t cognition/memory. (Discontinue ) 5. Janet will complete recall tasks of names of family/pets with 80% accuracy or more following an errorless learning session to review target names. (Discontinue) 6. Janet will accurately state location of dedicated calendar (based on trained spaced retrieval phrase) in 80% of probes independently. (Goal met) Care Home Goals 1. Janet will complete cognitive communication tasks with use of strategies or tools as needed given min cueing to complete baseline tasks with minimal difficulty. 2. Janet will improve recall of scheduled events occurring in the past month to 80% using external compensatory strategies to improve communication with family, friends, and medical providers . DISCONTINUED/COMPLETED GOALS: Janet will complete confrontation naming tasks for 2 to 3-syllable words with 80 % accuracy without the need for BOX ANNEALER cues. (Goal met) Janet will increase her score on the QAB to an overall score of at least 8.9/10.00 ( consistent with no aphasia). ( Goal met) Janet will accurately recall names of family/pets with 80% accuracy independently given random probes (not preceded by errorless learning). (Goal met) Treatment Activities Created visual aid for recalling to bring items when leaving home as pt often leaves home without important items. Discussed communication over the past week. Provided recommendations for strategies to utilize and completed role -play scenario to further reinforce use in contextualized activities. Discussed POC and completed progress note today. Assessment Patient Response to Treatment Good Rehab Potential Good Impairments Identified Expressive language,Receptive language,Cognitive communication Progress Towards Goals Good Progress,Slow Progress Assessment of Overall Progress Improving Assessment of Improvement BOX ANNEALER facilitated discussion re: current observations and concerns. Pt again did not bring calendar or memory book to session. Her caregiver reported she will try to find it or purchase a new one. Assisted pt in creating visual aid listing items pt needs to bring with her when leaving her home (e.g., glasses, phone , memory book, etc) as she often forgets items at home. Given discussion with BOX ANNEALER, pt identified watch, memory book, phone, and sunglasses. BOX ANNEALER printed list on bright paper and recommended pt place them on her door and reference memory aid before leaving the house. Pt agreeable, stating it would be a helpful strategy for her. Additionally, pt reported ongoing communication challenges and breakdowns. Her caregiver stated that she often gets overwhelmed and frustrated, leading to increased word-finding difficulty and losing train of thought. Given prompting and further discussion, pt was able to identify the following strategies for increased communicative success: describing words, asking people to slow down and saying ?I just need a moment?, and counting from 1-10 when emotions are high. Pt also demonstrated a negative attitude towards her own communication today. Reviewed importance of self-advocacy and created the following statement: ?I had a stroke. Meaningful conversations are difficult. Be patient with me. ? During role-play scenario, pt was able to utilize strategies, however is concerned about doing so at home and with less familiar communication partners. Recommended pt review strategies with other communication partners and explain to them why she needs to use them. Recommended she reference communication strategies handout during conversations to increase use of strategies. Pt agreeable to these recommendations and will report in next session. Plan to continue at frequency of 1-2 times a week to increase independence with use of external memory aids and word-finding/communication strategies. Progress note completed. Discussed continuing treatment for another month or so and re- assessing progress as pt may be beginning to plateau. Plan Amount of Therapy Recommended 2-3 Months Frequency of Treatment Twice a Week Length of Session 30 Minutes Therapeutic Contents Auditory Comprehension, Cognitive-Linguistic Training, Expressive Language Training Provided Patient/Caregiver Instruction Home Exercise Program,Plan of Care,Questions/Concerns Therapy Recommendations Continue with Current Program
--- NOTE | 2025-01-31 13:35 | ST.PROG ---
Visit Care Team Role Provider Type HAMZAH Navas Family Provider Non-Staff Address: [address] [place] [address], [phone] Nabor Starkey MD Attending Provider Physician Primary Care Provider Referring Provider Address: [address] [place] [address], [id number] [employer] Progress Note [employer] Treatment Note Start: 06/25/24 13:43 Freq: Status: Active Protocol: Document 01/31/25 13:10 SS (Rec: 01/31/25 13:35 SS Desktop) Speech Pathology Treatment Note Visit Information Visit Number 40 Plan of Care Dates 11/27/24-02/27/25 Insurance Information [facility] Treatment Setting Outpatient Care Visit Type Note Type Progress Note Next Note Type Next Note Type Treatment Note General Information Patient History Janet carlton is a 79 year old female who presented to this clinic for an outpatient evaluation of speech-language and cognition secondary to a recent stroke which resulted in expressive aphasia. She was admitted to ED at this hospital on 05/09/24 with MRI indicating acute small focal infarct in the posterior medial left temporal lobe. 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 She was seen by another [employer] at this facility ([facility], [facility] ) on 05/10/24 for an assessment of cognition and language before discharging home on 05/11 with caregiver assistance 5 days/week. At the time of her inpatient cognitive- language assessment, the [facility] Mental Status examination (SLUMS) and the Quick Aphasia Batetry (QAB were administered). On the SLUMS (which measures various domains of cognition including attention, memory, and orientation), Janet scored a 7 out of 30, which is indicative of moderate-severe impairment in cognition. On the QAB, Janet scored an overall score of 7.40-10.00, indicative of moderate impairment in language skills. It was recommended that Janet discharge home with her caregiver, Milady, who manages IADLs and assists with most ADLs during the week. Summer reported that the pt's family member Don also helps with Janet's IADLs. Since discharge from the hospital, pt and caregiver state that Janet's language has improved, but Janet also states that she is more aware of her speech/language errors, which has caused increased frustration. She also is having some remaining difficulties with memory/ cognition. 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 Vikas was seen by [facility] speech therapy for one visit, but has not received any other speech therapy since her stroke. She is also receiving physical therapy at this facility twice per week. _ Since initial evaluation, Janet has been attending cognitive linguistic therapy with [facility] at this clinic for 10 visits and has made good progress toward her short term and long-term goals. Throughout the course of therapy, Janet's specific cognitive/memory needs have become more clear and treatment has focused on developing compensatory strategies to remediate memory concerns, including the use of external aids and the use of spaced retrieval training and errorless learning to memorize needed information such as names of people/pets and locations of important items. Objective Short Term Goals 1. Janet will explore external compensatory strategies through education and application, in order to select 1-2 that are a best fit for daily needs (ex: calendar and writing lists). 12/07/24: Ongoing goal, continue . 01/31/25: Ongoing goal; continue. Multiple memory aids , including visual aid for recalling to bring items when leaving home, memory book, and monthly environmental planner have been implemented. Pt is working towards independence with use. 2. Janet will independently complete daily memory log for three consecutive weeks in order to improve memory/recall of daily events. 01/31/25: Ongoing goal; continue. Currently, Janet required max cueing from [employer] or caregiver to complete memory book and environmental planner. 3. Janet will implement the compensatory strategy of circumlocution with 80% accuracy with minimal cueing to repair communication breakdowns in daily conversations. 01/31/25: Ongoing goal; continue. Continued to provide education and implement communication strategies, such as self-advocacy, circumlocution, slowing down, etc, to reduce feelings of overwhelm and frustration. Progress with this goal has been variable due to impact of mental health affecting cognitive function. DISCONTINUED/COMPLETED GOALS: 1. Janet will complete confrontation naming tasks for 2 to 3-syllable words with 90 % accuracy given orthographic cues. (Goal met) 2. Janet will produce a minimum of 4 different features when presented with a target word using semantic feature analysis (SFA), given minimal verbal prompts, with 75% accuracy. (Goal met) 3. Janet and caregivers/family will benefit from education in home/carryover activities for aphasia rehabilitation. (Goal met) 4. Janet will complete a re- assessment of cognition to further guide POC r/t cognition/memory. (Discontinue ) 5. Janet will complete recall tasks of names of family/pets with 80% accuracy or more following an errorless learning session to review target names. (Discontinue) 6. Janet will accurately state location of dedicated calendar (based on trained spaced retrieval phrase) in 80% of probes independently. (Goal met) 7. Janet will benefit from education re lifestyle factors for brain and cognitive health, including sleep, nutrition, socialization, exercise, etc. (Goal met) Senior Living Goals 1. Janet will complete cognitive communication tasks with use of strategies or tools as needed given min cueing to complete baseline tasks with minimal difficulty. 2. Janet will improve recall of scheduled events occurring in the past month to 80% using external compensatory strategies to improve communication with family, friends, and medical providers . DISCONTINUED/COMPLETED GOALS: Janet will complete confrontation naming tasks for 2 to 3-syllable words with 80 % accuracy without the need for [employer] cues. (Goal met) Janet will increase her score on the QAB to an overall score of at least 8.9/10.00 ( consistent with no aphasia). ( Goal met) Janet will accurately recall names of family/pets with 80% accuracy independently given random probes (not preceded by errorless learning). (Goal met) Treatment Activities Tx activities this reporting period have included: -Education in lifestyle factors r/t cognition including sleep, mental health , hydration, physical activity , etc. -Implementation of external memory aids to facilitate independence and safety for completion of ADLs and IADLs, including memory book, monthly environmental planner, visual aids for placing items in same location , and visual aid for not leaving home without certain items. -Communication strategies, including self-advocacy, circumlocution, and reduction of frustration/overwhelm during moments of word-finding Assessment Patient Response to Treatment Good Rehab Potential Good Impairments Identified Expressive language,Receptive language,Cognitive communication Progress Towards Goals Good Progress,Slow Progress Assessment of Overall Progress Improving Assessment of Improvement As of last data collection, pt has initiated use of memory book and monthly calendar for recalling scheduled events and appointments, recalling conversations, and recalling medications. Targeting this goal was impacted by pt often losing important items. Several memory aids were implemented to increase ability to locate items around the house, including labels on drawers/cabinets and list on door of items to put in purse before leaving the house . These strategies have been somewhat helpful, though effectiveness will continue to be monitored. Although pt checks wall calendar at home to remember daily appointments /events, she has more difficulty recalling outside the home. She has made some progress with use of portable calendar, though often forgets to bring it with her when leaving her home. When she does her calendar with her, she is able to recall scheduled events with an average of 72% accuracy, which is significantly higher than without referencing the calendar. She will continue to benefit from reinforcement. Use of memory book to write down important details from conversations, passwords, and medication list has been initiated, and will continue to be reinforced. Janet is now implementing communication strategies more often. She is able to utilize circumlocution with her caregiver consistently without need for cueing. She is also beginning to utilize self- advocacy and strategies to reduce negative attitudes toward her own communication. She will continue to benefit from further reinforcement as she still becomes frustrated and overwhelmed during conversations, though with reduced frequency and severity . Janet has made good progress toward completing baseline tasks with use of external memory aids and use of communication strategies in conversation to reduce breakdowns. She will continue to benefit from ongoing development and customization of external memory aids to improve memory/recall of daily events. She will also continue to benefit from additional reinforcement of use of communication strategies to increase communicative confidence and success during conversations with caregiver, family/friends , and medical providers. Reviewed with Patient Goals,Progress Being Made,Home Exercise Program Patient/Caregiver Understanding Good Plan Amount of Therapy Recommended 1-2 Months Frequency of Treatment Twice a Week Length of Session 30 Minutes Therapeutic Contents Auditory Comprehension, Cognitive-Linguistic Training, Expressive Language Training Provided Patient/Caregiver Instruction Home Exercise Program,Plan of Care,Questions/Concerns Therapy Recommendations Continue with Current Program Visit Care Team Role Provider Type HAMZAH Navas Family Provider Non-Staff Specialty: Family Practice Address: [address] [place] [address], [id number] Email: Nabor Starkey MD Attending Provider Physician Primary Care Provider Referring Provider Specialty: Family Practice Address: [address] [place] [address], [facility] Email: [email or web address]
--- NOTE | 2025-01-31 14:26 | ST.OPTN ---
Visit Care Team Role Provider Type Yvonne HAMZAH Calabrese Family Provider Non-Staff Address: [address] [place] [address], [id number] Nabor Starkey MD Attending Provider Physician Primary Care Provider Referring Provider Address: [address] [place] [address], [id number] RADIOLOGICAL TECHNICIAN Treatment Note RADIOLOGICAL TECHNICIAN Treatment Note Start: 06/25/24 13:43 Freq: Status: Active Protocol: Document 01/31/25 14:05 SS (Rec: 01/31/25 14:26 SS Desktop) Speech Pathology Treatment Note Session Time Visit Start Time 11:30 Visit Stop Time 12:05 Total Visit Minutes 35 Visit Information Visit Number [id number] Plan of Care Dates 11/27/24-02/27/25 Insurance Information [facility] Setting Treatment Setting Outpatient Care Visit Type Note Type Treatment Note Next Note Type Next Note Type Treatment Note General Information Patient History Janet carlton is a 79 year old female who presented to this clinic for an outpatient evaluation of speech-language and cognition secondary to a recent stroke which resulted in expressive aphasia. She was admitted to ED at this hospital on 05/09/24 with MRI indicating acute small focal infarct in the posterior medial left temporal lobe. 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 She was seen by another RADIOLOGICAL TECHNICIAN at this facility ([facility], [place] ) on 05/10/24 for an assessment of cognition and language before discharging home on 05/11 with caregiver assistance 5 days/week. At the time of her inpatient cognitive- language assessment, the [employer] Mental Status examination (SLUMS) and the Quick Aphasia Batetry (QAB were administered). On the SLUMS (which measures various domains of cognition including attention, memory, and orientation), Janet scored a 7 out of 30, which is indicative of moderate-severe impairment in cognition. On the QAB, Janet scored an overall score of 7.40-10.00, indicative of moderate impairment in language skills. It was recommended that Janet discharge home with her caregiver, Milady, who manages IADLs and assists with most ADLs during the week. Milady reported that the pt's family member Don also helps with Janet's IADLs. Since discharge from the hospital, pt and caregiver state that Janet's language has improved, but Janet also states that she is more aware of her speech/language errors, which has caused increased frustration. She also is having some remaining difficulties with memory/ cognition. 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 Vikas was seen by [facility] speech therapy for one visit, but has not received any other speech therapy since her stroke. She is also receiving physical therapy at this facility twice per week. _ Since initial evaluation, Janet has been attending cognitive linguistic therapy with RADIOLOGICAL TECHNICIAN at this clinic for 10 visits and has made good progress toward her short term and long-term goals. Throughout the course of therapy, Janet's specific cognitive/memory needs have become more clear and treatment has focused on developing compensatory strategies to remediate memory concerns, including the use of external aids and the use of spaced retrieval training and errorless learning to memorize needed information such as names of people/pets and locations of important items. Subjective Identification Type Name Observations/Patient Presentation Pt arrived to the session on time with her caregiver who accompanied her to the session . She was engaged and motivated to participate in all session activities. Chief Complaint(s) Language,Cognitive Objective Short Term Goals 1. Janet will explore external compensatory strategies through education and application, in order to select 1-2 that are a best fit for daily needs (ex: calendar and writing lists). 12/07/24: Ongoing goal, continue . 01/31/25: Ongoing goal; continue. Multiple memory aids , including visual aid for recalling to bring items when leaving home, memory book, and monthly facilities planner have been implemented. Pt is working towards independence with use. 2. Janet will independently complete daily memory log for three consecutive weeks in order to improve memory/recall of daily events. 01/31/25: Ongoing goal; continue. Currently, Janet required max cueing from RADIOLOGICAL TECHNICIAN or caregiver to complete memory book and facilities planner. 3. Janet will implement the compensatory strategy of circumlocution with 80% accuracy with minimal cueing to repair communication breakdowns in daily conversations. 01/31/25: Ongoing goal; continue. Continued to provide education and implement communication strategies, such as self-advocacy, circumlocution, slowing down, etc, to reduce feelings of overwhelm and frustration. Progress with this goal has been variable due to impact of mental health affecting cognitive function. DISCONTINUED/COMPLETED GOALS: 1. Janet will complete confrontation naming tasks for 2 to 3-syllable words with 90 % accuracy given orthographic cues. (Goal met) 2. Janet will produce a minimum of 4 different features when presented with a target word using semantic feature analysis (SFA), given minimal verbal prompts, with 75% accuracy. (Goal met) 3. Janet and caregivers/family will benefit from education in home/carryover activities for aphasia rehabilitation. (Goal met) 4. Janet will complete a re- assessment of cognition to further guide POC r/t cognition/memory. (Discontinue ) 5. Janet will complete recall tasks of names of family/pets with 80% accuracy or more following an errorless learning session to review target names. (Discontinue) 6. Janet will accurately state location of dedicated calendar (based on trained spaced retrieval phrase) in 80% of probes independently. (Goal met) 7. Janet will benefit from education re lifestyle factors for brain and cognitive health, including sleep, nutrition, socialization, exercise, etc. (Goal met) [facility] Goals 1. Janet will complete cognitive communication tasks with use of strategies or tools as needed given min cueing to complete baseline tasks with minimal difficulty. 2. Janet will improve recall of scheduled events occurring in the past month to 80% using external compensatory strategies to improve communication with family, friends, and medical providers . DISCONTINUED/COMPLETED GOALS: Janet will complete confrontation naming tasks for 2 to 3-syllable words with 80 % accuracy without the need for RADIOLOGICAL TECHNICIAN cues. (Goal met) Janet will increase her score on the QAB to an overall score of at least 8.9/10.00 ( consistent with no aphasia). ( Goal met) Janet will accurately recall names of family/pets with 80% accuracy independently given random probes (not preceded by errorless learning). (Goal met) Treatment Activities Further customization and implementation of memory book and monthly calendar for increased recall of important conversations, passwords, medications, and scheduled appointments/events. Discussion re: strategies targeting medication management given reported difficulties. Discussed POC and recommendations for home. Assessment Patient Response to Treatment Good Rehab Potential Good Impairments Identified Expressive language,Receptive language,Cognitive communication Progress Towards Goals Good Progress,Slow Progress Assessment of Overall Progress Improving Assessment of Improvement RADIOLOGICAL TECHNICIAN facilitated discussion re: pt observations and concerns as well as progress with trained strategies/tools. Pt?s caregiver has hung up previously created visual aid with list of items to bring when leaving house. Pt reported she finds the strategy helpful, though does not feel that she needs it, stating ?I don?t think I need a sign to remember these things.? She was able to locate memory book and monthly calendar from prior sessions. RADIOLOGICAL TECHNICIAN assisted pt with creating label for dresser for increased recall of location of items after pt identified permanent location. Continued implementation of memory book as external memory aid. Through shared discussion re: information that is important for pt to recall, pt identified the following sections for her memory book: conversations with family members, passwords , and medication list. RADIOLOGICAL TECHNICIAN assisted pt in creating tabs for memory book. Pt and caregiver to continue adding to these sections over the next week. Pt expressed she was motivated to write in the memory book with assistance from caregiver. Reviewed monthly facilities planner. Pt was able to identify correct day of the week, though benefited from cueing to check her phone to identify the correct date. She crossed off all days that have passed following prompt. She was able to accurately identify scheduled events occurring this week with 64% accuracy, increasing to 93% given min verbal cueing to reference calendar. Pt?s caregiver reported that pt has been having more difficulty with medication management this week. She took a double dose of her medication from her pillbox because she mixed up days of the week. RADIOLOGICAL TECHNICIAN provided initial education re: strategies for medication management, such as visual reminders, alarms, and high-tech pillboxes. Pt became frustrated with RADIOLOGICAL TECHNICIAN recommendations, stating ?I don?t have a problem doing this. I have done it for a long time.? She was not receptive to gentle encouragement from RADIOLOGICAL TECHNICIAN. May further discuss this topic in following sessions, if pt is interested. Continue to target use of external memory aids to increase independence with baseline IADLs and overall quality of life. Continue to monitor progress based on pt and caregiver report. Reviewed with Patient Goals,Progress Being Made,Home Exercise Program Patient/Caregiver Understanding Good Plan Amount of Therapy Recommended 1-2 Months Frequency of Treatment Twice a Week Length of Session 30 Minutes Therapeutic Contents Auditory Comprehension, Cognitive-Linguistic Training, Expressive Language Training Provided Patient/Caregiver Instruction Home Exercise Program,Plan of Care,Questions/Concerns Therapy Recommendations Continue with Current Program
--- NOTE | 2025-02-05 12:26 | ST.OPTN ---
Visit Care Team Role Provider Type Yvonne HAMZAH Calabrese Family Provider Non-Staff Address: [address] [place] [address], [id number] Nabor Starkey MD Attending Provider Physician Primary Care Provider Referring Provider Address: [address] [place] [address], [id number] GUN WELDER Treatment Note GUN WELDER Treatment Note Start: 06/25/24 13:43 Freq: Status: Active Protocol: Document 02/05/25 12:16 SS (Rec: 02/05/25 12:26 SS Desktop) Speech Pathology Treatment Note Session Time Visit Start Time 11:30 Visit Stop Time 12:05 Total Visit Minutes 35 Visit Information Visit Number [id number] Plan of Care Dates 11/27/24-02/27/25 Insurance [facility] Information Setting Treatment Setting Outpatient Care Visit Type Note Type Treatment Note Next Note Type Next Note Type Treatment Note General Information Patient History Janet carlton is a 79 year old female who presented to this clinic for an outpatient evaluation of speech-language and cognition secondary to a recent stroke which resulted in expressive aphasia. She was admitted to ED at this hospital on 05/09/24 with MRI indicating acute small focal infarct in the posterior medial left temporal lobe. 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 She was seen by another GUN WELDER at this facility ([facility] , [place]) on 05/10/24 for an assessment of cognition and language before discharging home on 05/11/24 with caregiver assistance 5 days/week. At the time of her inpatient cognitive-language assessment, the [employer] Mental Status examination (SLUMS) and the Quick Aphasia Batetry (QAB were administered). On the SLUMS (which measures various domains of cognition including attention, memory, and orientation), Janet scored a 7 out of 30, which is indicative of moderate- severe impairment in cognition. On the QAB, Janet scored an overall score of 7.40-10.00, indicative of moderate impairment in language skills. It was recommended that Janet discharge home with her caregiver , Milady, who manages IADLs and assists with most ADLs during the week. Milady reported that the pt's family member Don also helps with Janet's IADLs. Since discharge from the hospital, pt and caregiver state that Janet's language has improved, but Janet also states that she is more aware of her speech/language errors, which has caused increased frustration. She also is having some remaining difficulties with memory/ cognition. 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 Vikas was seen by [facility] speech therapy for one visit, but has not received any other speech therapy since her stroke. She is also receiving physical therapy at this facility twice per week. Since initial evaluation, Janet has been attending cognitive linguistic therapy with GUN WELDER at this clinic for 10 visits and has made good progress toward her short term and long-term goals. Throughout the course of therapy, Janet's specific cognitive/memory needs have become more clear and treatment has focused on developing compensatory strategies to remediate memory concerns, including the use of external aids and the use of spaced retrieval training and errorless learning to memorize needed information such as names of people /pets and locations of important items. Subjective Identification Type Name Observations/Patient Pt arrived to the session on time with her caregiver Presentation who accompanied her to the session. She was engaged and motivated to participate in all session activities. Chief Complaint(s) Language,Cognitive Objective Short Term Goals 1. Janet will explore external compensatory strategies through education and application, in order to select 1 -2 that are a best fit for daily needs (ex: calendar and writing lists). 12/07/24: Ongoing goal, continue. 01/31/25: Ongoing goal; continue. Multiple memory aids, including visual aid for recalling to bring items when leaving home, memory book, and monthly kit planner have been implemented. Pt is working towards independence with use. 2. Janet will independently complete daily memory log for three consecutive weeks in order to improve memory/ recall of daily events. 01/31/25: Ongoing goal; continue. Currently, Janet required max cueing from GUN WELDER or caregiver to complete memory book and kit planner. 3. Janet will implement the compensatory strategy of circumlocution with 80% accuracy with minimal cueing to repair communication breakdowns in daily conversations . 01/31/25: Ongoing goal; continue. Continued to provide education and implement communication strategies, such as self-advocacy, circumlocution, slowing down, etc, to reduce feelings of overwhelm and frustration. Progress with this goal has been variable due to impact of mental health affecting cognitive function. DISCONTINUED/COMPLETED GOALS: 1. Janet will complete confrontation naming tasks for 2 to 3-syllable words with 90% accuracy given orthographic cues. (Goal met) 2. Janet will produce a minimum of 4 different features when presented with a target word using semantic feature analysis (SFA), given minimal verbal prompts, with 75% accuracy. (Goal met) 3. Janet and caregivers/family will benefit from education in home/carryover activities for aphasia rehabilitation. (Goal met) 4. Janet will complete a re-assessment of cognition to further guide POC r/t cognition/memory. (Discontinue) 5. Janet will complete recall tasks of names of family/ pets with 80% accuracy or more following an errorless learning session to review target names. (Discontinue) 6. Janet will accurately state location of dedicated calendar (based on trained spaced retrieval phrase) in 80% of probes independently. (Goal met) 7. Janet will benefit from education re lifestyle factors for brain and cognitive health, including sleep , nutrition, socialization, exercise, etc. (Goal met) Nursing Home Goals 1. Janet will complete cognitive communication tasks with use of strategies or tools as needed given min cueing to complete baseline tasks with minimal difficulty. 2. Janet will improve recall of scheduled events occurring in the past month to 80% using external compensatory strategies to improve communication with family, friends, and medical providers. DISCONTINUED/COMPLETED GOALS: Janet will complete confrontation naming tasks for 2 to 3-syllable words with 80% accuracy without the need for GUN WELDER cues. (Goal met) Janet will increase her score on the QAB to an overall score of at least 8.9/10.00 (consistent with no aphasia ). (Goal met) Janet will accurately recall names of family/pets with 80% accuracy independently given random probes (not preceded by errorless learning). (Goal met) Treatment Activities Continued training in use of memory book and monthly calendar for increased recall of important conversations, passwords, medications, and scheduled appointments/events. Reviewed use of communication strategies in everyday conversations. Discussed POC and recommendations for home. Assessment Patient Response to Good Treatment Rehab Potential Good Impairments Expressive language,Receptive language,Cognitive Identified communication Progress Towards Good Progress,Slow Progress Goals Assessment of Improving Overall Progress Assessment of Continued implementation of memory book and monthly Improvement calendar as external memory aids. Pt reported she has been journaling in memory book more often. She is also referencing monthly calendar when she is unsure of upcoming events. Her caregiver reported that visual sign reminding pt to bring these two items when leaving the house has been very helpful. Recommended pt begin to log important events and conversations from the day in her memory book to increase short-term memory with use of compensatory strategy. Pt agreeable and will report on progress in next session. She was able to recall upcoming monthly events, such as medical appointments and therapies, with 88% accuracy after referencing calendar independently (pre-filled by caregiver). This increased to 100% given min verbal cueing to reference her calendar. Pt reported that conversations with family and friends have improved and her caregiver has noted reduced communication breakdowns. Reviewed importance of use of self-advocacy statement in order to better advocate for communication needs. Pt with good recall of previously developed statement. During conversation with GUN WELDER, pt continued to benefit from intermittent reminders to slow down, use self-calming strategies (e. g., count to 10, take a deep breath), and use circumlocution during instances of anomia. Overall, pt has been implementing trained external memory aids more consistently and endorses increased short-term memory with use of aids. She is also able to utilize communication strategies functionally, but continues to require verbal cueing from communication partner. Discussed progress and potential discharge from services as progress is beginning to plateau. Continue to target use of external memory aids to increase independence with baseline IADLs and overall quality of life. Continue to monitor progress based on pt and caregiver report. Reviewed with Goals,Progress Being Made,Home Exercise Program Patient Patient/Caregiver Good Understanding Plan Amount of Therapy 1-2 Months Recommended Frequency of Twice a Week Treatment Length of Session 30 Minutes Therapeutic Contents Auditory Comprehension,Cognitive-Linguistic Training, Expressive Language Training Provided Patient/ Home Exercise Program,Plan of Care,Questions/Concerns Caregiver Instruction Therapy Continue with Current Program Recommendations
--- NOTE | 2025-02-12 15:47 | ST.OPTN ---
Visit Care Team Role Provider Type Yvonne HAMZAH Calabrese Family Provider Non-Staff Address: [address] [place] [address], [id number] Nabor Starkey MD Attending Provider Physician Primary Care Provider Referring Provider Address: [address] [place] [address], [id number] VIDEOTAPE OPERATOR Treatment Note VIDEOTAPE OPERATOR Treatment Note Start: 06/25/24 13:43 Freq: Status: Active Protocol: Document 02/12/25 15:31 SS (Rec: 02/12/25 15:46 SS Desktop) Speech Pathology Treatment Note Session Time Visit Start Time 12:15 Visit Stop Time 12:50 Total Visit Minutes 35 Visit Information Visit Number 43 Plan of Care Dates 11/27/24-02/27/25 Insurance [facility] Information Setting Treatment Setting Outpatient Care Visit Type Note Type Treatment Note Next Note Type Next Note Type Treatment Note General Information Patient History Janet carlton is a 79 year old female who presented to this clinic for an outpatient evaluation of speech-language and cognition secondary to a recent stroke which resulted in expressive aphasia. She was admitted to ED at this hospital on 05/09/24 with MRI indicating acute small focal infarct in the posterior medial left temporal lobe. 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 She was seen by another VIDEOTAPE OPERATOR at this facility (Martha Lunsford , [place]) on 05/10/24 for an assessment of cognition and language before discharging home on 05/11/24 with caregiver assistance 5 days/week. At the time of her inpatient cognitive-language assessment, the [employer] Mental Status examination (SLUMS) and the Quick Aphasia Batetry (QAB were administered). On the SLUMS (which measures various domains of cognition including attention, memory, and orientation), Janet scored a 7 out of 30, which is indicative of moderate- severe impairment in cognition. On the QAB, Janet scored an overall score of 7.40-10.00, indicative of moderate impairment in language skills. It was recommended that Janet discharge home with her caregiver , Milady, who manages IADLs and assists with most ADLs during the week. Milady reported that the pt's family member Don also helps with Janet's IADLs. Since discharge from the hospital, pt and caregiver state that Janet's language has improved, but Janet also states that she is more aware of her speech/language errors, which has caused increased frustration. She also is having some remaining difficulties with memory/ cognition. 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 Vikas was seen by [facility] speech therapy for one visit, but has not received any other speech therapy since her stroke. She is also receiving physical therapy at this facility twice per week. Since initial evaluation, Janet has been attending cognitive linguistic therapy with VIDEOTAPE OPERATOR at this clinic for 10 visits and has made good progress toward her short term and long-term goals. Throughout the course of therapy, Janet's specific cognitive/memory needs have become more clear and treatment has focused on developing compensatory strategies to remediate memory concerns, including the use of external aids and the use of spaced retrieval training and errorless learning to memorize needed information such as names of people /pets and locations of important items. Subjective Identification Type Name Observations/Patient Pt arrived to the session on time with her caregiver Presentation who accompanied her to the session. She was engaged and motivated to participate in all session activities. Chief Complaint(s) Language,Cognitive Objective Short Term Goals 1. Janet will explore external compensatory strategies through education and application, in order to select 1 -2 that are a best fit for daily needs (ex: calendar and writing lists). 12/07/24: Ongoing goal, continue. 01/31/25: Ongoing goal; continue. Multiple memory aids, including visual aid for recalling to bring items when leaving home, memory book, and monthly special events planner have been implemented. Pt is working towards independence with use. 2. Janet will independently complete daily memory log for three consecutive weeks in order to improve memory/ recall of daily events. 01/31/25: Ongoing goal; continue. Currently, Janet required max cueing from VIDEOTAPE OPERATOR or caregiver to complete memory book and special events planner. 3. Janet will implement the compensatory strategy of circumlocution with 80% accuracy with minimal cueing to repair communication breakdowns in daily conversations . 01/31/25: Ongoing goal; continue. Continued to provide education and implement communication strategies, such as self-advocacy, circumlocution, slowing down, etc, to reduce feelings of overwhelm and frustration. Progress with this goal has been variable due to impact of mental health affecting cognitive function. DISCONTINUED/COMPLETED GOALS: 1. Janet will complete confrontation naming tasks for 2 to 3-syllable words with 90% accuracy given orthographic cues. (Goal met) 2. Janet will produce a minimum of 4 different features when presented with a target word using semantic feature analysis (SFA), given minimal verbal prompts, with 75% accuracy. (Goal met) 3. Janet and caregivers/family will benefit from education in home/carryover activities for aphasia rehabilitation. (Goal met) 4. Janet will complete a re-assessment of cognition to further guide POC r/t cognition/memory. (Discontinue) 5. Janet will complete recall tasks of names of family/ pets with 80% accuracy or more following an errorless learning session to review target names. (Discontinue) 6. Janet will accurately state location of dedicated calendar (based on trained spaced retrieval phrase) in 80% of probes independently. (Goal met) 7. Janet will benefit from education re lifestyle factors for brain and cognitive health, including sleep , nutrition, socialization, exercise, etc. (Goal met) Residential Goals 1. Janet will complete cognitive communication tasks with use of strategies or tools as needed given min cueing to complete baseline tasks with minimal difficulty. 2. Janet will improve recall of scheduled events occurring in the past month to 80% using external compensatory strategies to improve communication with family, friends, and medical providers. DISCONTINUED/COMPLETED GOALS: Janet will complete confrontation naming tasks for 2 to 3-syllable words with 80% accuracy without the need for VIDEOTAPE OPERATOR cues. (Goal met) Janet will increase her score on the QAB to an overall score of at least 8.9/10.00 (consistent with no aphasia ). (Goal met) Janet will accurately recall names of family/pets with 80% accuracy independently given random probes (not preceded by errorless learning). (Goal met) Treatment Activities Continued training in use of memory book and monthly calendar for increased recall of scheduled appointments /events and to track daily conversations and activities . Grocery shopping activity targeting use of lists as an external memory aid and calculating total targeting financial risk manager skills. Discussed progress and recommendations for home. Assessment Patient Response to Good Treatment Rehab Potential Good Impairments Expressive language,Receptive language,Cognitive Identified communication Progress Towards Good Progress,Slow Progress Goals Assessment of Improving Overall Progress Assessment of Pt reported she had fallen about five days ago and went Improvement to the ER. She did hit her head at the time. Per ER visit note, pt at baseline and no brain injury was noted. Continued implementation of memory book and monthly calendar as external memory aids. Pt reported she was able to complete two entries in her memory book since the last session. She stated that she is motivated to complete entries every day for improved recall of daily events. VIDEOTAPE OPERATOR provided education re: multiple strategies to increase pt ability to remember to fill out memory log. Pt?s caregiver stated pt has been checking her calendar consistently. Pt was able to refer to calendar following initial reminder when VIDEOTAPE OPERATOR asked about upcoming appointments that she could not recall independently. Pt again reported missing a dosage of daily medications, but expressed she was not interested in implementing compensatory strategies targeting medication management at this time following VIDEOTAPE OPERATOR education. During grocery shopping activity, pt was tasked with creating a shopping list and calculating total to determine whether she was within budget. Pt was able to independently list x3 items, but was unable to write down additional items. She benefited from use of list of possible items to purchase and added to her list. VIDEOTAPE OPERATOR provided grocery items list for pt to use at home to reference in order to determine which items she needs to purchase. She was able to calculate her total accurately. She had difficulty subtracting from total in order to remain within budget. Given VIDEOTAPE OPERATOR breaking down calculation and writing it out, pt completed it accurately. Recommended pt continue to use lists when running errands and shopping as well as use calculator to calculate total spending and compare to budget. Pt is making good progress with use of external memory aids, including memory book, calendar, use of lists, and use of calculator for simple math to increase functional recall and participation in IADLs. Continue to target use of trained external memory aids in following sessions to ensure carryover outside of ST sessions. Reviewed with Goals,Progress Being Made,Home Exercise Program Patient Patient/Caregiver Good Understanding Plan Amount of Therapy 1-2 Months Recommended Frequency of Twice a Week Treatment Length of Session 30 Minutes Therapeutic Contents Auditory Comprehension,Cognitive-Linguistic Training, Expressive Language Training Provided Patient/ Home Exercise Program,Plan of Care,Questions/Concerns Caregiver Instruction Therapy Continue with Current Program Recommendations
--- NOTE | 2025-02-21 16:27 | ST.OPTN ---
Visit Care Team Role Provider Type Yvonne HAMZAH Calabrese Family Provider Non-Staff Address: [address] [place] [address], [id number] Nabor Starkey MD Attending Provider Physician Primary Care Provider Referring Provider Address: [address] [place] [address], [id number] RESEARCH ANALYST Treatment Note RESEARCH ANALYST Treatment Note Start: 06/25/24 13:43 Freq: Status: Active Protocol: Document 02/21/25 16:13 SS (Rec: 02/21/25 16:27 SS Desktop) Speech Pathology Treatment Note Session Time Visit Start Time 11:32 Visit Stop Time 12:02 Total Visit Minutes 30 Visit Information Visit Number 44 Plan of Care Dates 11/27/24-02/27/25 Insurance [facility] Information Setting Treatment Setting Outpatient Care Visit Type Note Type Treatment Note Next Note Type Next Note Type Treatment Note General Information Patient History Janet carlton is a 79 year old female who presented to this clinic for an outpatient evaluation of speech-language and cognition secondary to a recent stroke which resulted in expressive aphasia. She was admitted to ED at this hospital on 05/09/24 with MRI indicating acute small focal infarct in the posterior medial left temporal lobe. 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 She was seen by another RESEARCH ANALYST at this facility ([facility]uns[facility] , [facility]) on 05/10/24 for an assessment of cognition and language before discharging home on 05/11/24 with caregiver assistance 5 days/week. At the time of her inpatient cognitive-language assessment, the [employer] Mental Status examination (SLUMS) and the Quick Aphasia Batetry (QAB were administered). On the SLUMS (which measures various domains of cognition including attention, memory, and orientation), Janet scored a 7 out of 30, which is indicative of moderate- severe impairment in cognition. On the QAB, Janet scored an overall score of 7.40-10.00, indicative of moderate impairment in language skills. It was recommended that Janet discharge home with her caregiver , Milady, who manages IADLs and assists with most ADLs during the week. Milady reported that the pt's family member Don also helps with Janet's IADLs. Since discharge from the hospital, pt and caregiver state that Janet's language has improved, but Janet also states that she is more aware of her speech/language errors, which has caused increased frustration. She also is having some remaining difficulties with memory/ cognition. 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 Vikas was seen by [facility] speech therapy for one visit, but has not received any other speech therapy since her stroke. She is also receiving physical therapy at this facility twice per week. Since initial evaluation, Janet has been attending cognitive linguistic therapy with RESEARCH ANALYST at this clinic for 10 visits and has made good progress toward her short term and long-term goals. Throughout the course of therapy, Janet's specific cognitive/memory needs have become more clear and treatment has focused on developing compensatory strategies to remediate memory concerns, including the use of external aids and the use of spaced retrieval training and errorless learning to memorize needed information such as names of people /pets and locations of important items. Subjective Identification Type Name Observations/Patient Pt arrived to the session on time with her caregiver Presentation who accompanied her to the session. She was engaged and motivated to participate in all session activities. Chief Complaint(s) Language,Cognitive Objective Short Term Goals 1. Janet will explore external compensatory strategies through education and application, in order to select 1 -2 that are a best fit for daily needs (ex: calendar and writing lists). 12/07/24: Ongoing goal, continue. 01/31/25: Ongoing goal; continue. Multiple memory aids, including visual aid for recalling to bring items when leaving home, memory book, and monthly farm planner have been implemented. Pt is working towards independence with use. 2. Janet will independently complete daily memory log for three consecutive weeks in order to improve memory/ recall of daily events. 01/31/25: Ongoing goal; continue. Currently, Janet required max cueing from RESEARCH ANALYST or caregiver to complete memory book and farm planner. 3. Janet will implement the compensatory strategy of circumlocution with 80% accuracy with minimal cueing to repair communication breakdowns in daily conversations . 01/31/25: Ongoing goal; continue. Continued to provide education and implement communication strategies, such as self-advocacy, circumlocution, slowing down, etc, to reduce feelings of overwhelm and frustration. Progress with this goal has been variable due to impact of mental health affecting cognitive function. DISCONTINUED/COMPLETED GOALS: 1. Janet will complete confrontation naming tasks for 2 to 3-syllable words with 90% accuracy given orthographic cues. (Goal met) 2. Janet will produce a minimum of 4 different features when presented with a target word using semantic feature analysis (SFA), given minimal verbal prompts, with 75% accuracy. (Goal met) 3. Janet and caregivers/family will benefit from education in home/carryover activities for aphasia rehabilitation. (Goal met) 4. Janet will complete a re-assessment of cognition to further guide POC r/t cognition/memory. (Discontinue) 5. Janet will complete recall tasks of names of family/ pets with 80% accuracy or more following an errorless learning session to review target names. (Discontinue) 6. Janet will accurately state location of dedicated calendar (based on trained spaced retrieval phrase) in 80% of probes independently. (Goal met) 7. Janet will benefit from education re lifestyle factors for brain and cognitive health, including sleep , nutrition, socialization, exercise, etc. (Goal met) Fpc Goals 1. Janet will complete cognitive communication tasks with use of strategies or tools as needed given min cueing to complete baseline tasks with minimal difficulty. 2. Janet will improve recall of scheduled events occurring in the past month to 80% using external compensatory strategies to improve communication with family, friends, and medical providers. DISCONTINUED/COMPLETED GOALS: Janet will complete confrontation naming tasks for 2 to 3-syllable words with 80% accuracy without the need for RESEARCH ANALYST cues. (Goal met) Janet will increase her score on the QAB to an overall score of at least 8.9/10.00 (consistent with no aphasia ). (Goal met) Janet will accurately recall names of family/pets with 80% accuracy independently given random probes (not preceded by errorless learning). (Goal met) Treatment Activities Reviewed use of previously trained external memory aids as well as education re: holistic lifestyle factors. Discussed progress and recommendations for home. Assessment Patient Response to Good Treatment Rehab Potential Good Impairments Expressive language,Receptive language,Cognitive Identified communication Progress Towards Good Progress,Slow Progress Goals Assessment of Improving Overall Progress Assessment of Pt reported she has been able to reference her home Improvement calendar consistently and is able to recall important appointments with minimal difficulty. She continues to have difficulty bringing her portable calendar with her outside of the home and cannot reference it when she has difficulty recalling events/appointments. She has started using her phone calendar again with some success. Additionally, pt noted that she continues to get overwhelmed by her daily to-do tasks as well as routine activities, particularly in the mornings. Recommended she write down a list of tasks/activities she would to accomplish throughout the day each morning to aid with recall. Given prompting to list to-do tasks for today, she was able to recall 5/8 to-do tasks , increasing to 8/8 with verbal cues from her caregiver . Recommended pt utilize a visual aid to remind her to create a daily to-do list and to write in her memory book. Pt was receptive to this recommendation, but stated she would prefer to create visual aid at home rather than with RESEARCH ANALYST. Pt expressed she has not been able to fill her memory journal for about a week due to other activities taking precedent. Recommended she fill blank dates with most important events/appointments. Additionally, recommended she take notes during conversations as she expressing difficulty recalling important details from conversations with family, friends, and medical providers without referencing the memory journal. Pt agreeable. Reviewed education re: holistic lifestyle factors and provided handout. Pt reported ongoing difficulty with maintaining adequate hydration. Recommended she try to log number of glasses she drinks in her memory journal and bring a water bottle with her when she is away from home as a visual cue. Pt was receptive to this recommendation. Pt is making good progress with use of trained external memory aids and holistic lifestyle factors. She reported conversations have been going well and she has not had recent communication breakdowns. As progress is plateauing and pt is satisfied with her progress, plan to discharge next session. Reviewed with Goals,Progress Being Made,Home Exercise Program Patient Patient/Caregiver Good Understanding Plan Amount of Therapy 1-2 Months Recommended Frequency of Twice a Week Treatment Length of Session 30 Minutes Therapeutic Contents Auditory Comprehension,Cognitive-Linguistic Training, Expressive Language Training Provided Patient/ Home Exercise Program,Plan of Care,Questions/Concerns Caregiver Instruction Therapy Continue with Current Program Recommendations
--- NOTE | 2025-02-25 13:48 | ST.OPDS ---
Visit Care Team Role Provider Type Yvonne HAMZAH Calabrese Family Provider Non-Staff Address: [address] [place] [address], [id number] Nabor Starkey MD Attending Provider Physician Primary Care Provider Referring Provider Address: [address] [place] [address], [id number] ENTREPRENEURSHIP PROGRAM DIRECTOR Treatment Note ENTREPRENEURSHIP PROGRAM DIRECTOR Treatment Note Start: 06/25/24 13:43 Freq: Status: Active Protocol: Document 02/25/25 13:27 SS (Rec: 02/25/25 13:48 SS Desktop) Speech Pathology Treatment Note Session Time Visit Start Time 12:20 Visit Stop Time 12:55 Total Visit Minutes 35 Visit Information Visit Number 45 Plan of Care Dates 11/27/24-02/27/25 Insurance [facility] Information Setting Treatment Setting Outpatient Care Visit Type Note Type Treatment Note Next Note Type Next Note Type Discharge Summary General Information Patient History Janet carlton is a 79 year old female who presented to this clinic for an outpatient evaluation of speech-language and cognition secondary to a recent stroke which resulted in expressive aphasia. She was admitted to ED at this hospital on 05/09/24 with MRI indicating acute small focal infarct in the posterior medial left temporal lobe. 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 She was seen by another ENTREPRENEURSHIP PROGRAM DIRECTOR at this facility (Martha Lunsford , LOGAN) on 05/10/24 for an assessment of cognition and language before discharging home on 05/11/24 with caregiver assistance 5 days/week. At the time of her inpatient cognitive-language assessment, the [employer] Mental Status examination (SLUMS) and the Quick Aphasia Batetry (QAB were administered). On the SLUMS (which measures various domains of cognition including attention, memory, and orientation), Janet scored a 7 out of 30, which is indicative of moderate- severe impairment in cognition. On the QAB, Janet scored an overall score of 7.40-10.00, indicative of moderate impairment in language skills. It was recommended that Janet discharge home with her caregiver , Milady, who manages IADLs and assists with most ADLs during the week. Milady reported that the pt's family member Don also helps with Janet's IADLs. Since discharge from the hospital, pt and caregiver state that Janet's language has improved, but Janet also states that she is more aware of her speech/language errors, which has caused increased frustration. She also is having some remaining difficulties with memory/ cognition. 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 Vikas was seen by [facility] speech therapy for one visit, but has not received any other speech therapy since her stroke. She is also receiving physical therapy at this facility twice per week. Since initial evaluation, Janet has been attending cognitive linguistic therapy with ENTREPRENEURSHIP PROGRAM DIRECTOR at this clinic for 10 visits and has made good progress toward her short term and long-term goals. Throughout the course of therapy, Janet's specific cognitive/memory needs have become more clear and treatment has focused on developing compensatory strategies to remediate memory concerns, including the use of external aids and the use of spaced retrieval training and errorless learning to memorize needed information such as names of people /pets and locations of important items. Subjective Identification Type Name Observations/Patient Pt arrived to the session a little late with her Presentation caregiver who accompanied her to the session. She was engaged and motivated to participate in all session activities. Chief Complaint(s) Language,Cognitive Objective Short Term Goals 1. Janet will explore external compensatory strategies through education and application, in order to select 1 -2 that are a best fit for daily needs (ex: calendar and writing lists). 12/07/24: Ongoing goal, continue. 01/31/25: Ongoing goal; continue. Multiple memory aids, including visual aid for recalling to bring items when leaving home, memory book, and monthly digital media planner have been implemented. Pt is working towards independence with use. 02/25/25: Goal met. 2. Janet will independently complete daily memory log for three consecutive weeks in order to improve memory/ recall of daily events. 01/31/25: Ongoing goal; continue. Currently, Janet required max cueing from ENTREPRENEURSHIP PROGRAM DIRECTOR or caregiver to complete memory book and digital media planner. 02/25/25: Goal met. 3. Janet will implement the compensatory strategy of circumlocution with 80% accuracy with minimal cueing to repair communication breakdowns in daily conversations . 01/31/25: Ongoing goal; continue. Continued to provide education and implement communication strategies, such as self-advocacy, circumlocution, slowing down, etc, to reduce feelings of overwhelm and frustration. Progress with this goal has been variable due to impact of mental health affecting cognitive function. 02/25/25: Goal met. DISCONTINUED/COMPLETED GOALS: 1. Janet will complete confrontation naming tasks for 2 to 3-syllable words with 90% accuracy given orthographic cues. (Goal met) 2. Janet will produce a minimum of 4 different features when presented with a target word using semantic feature analysis (SFA), given minimal verbal prompts, with 75% accuracy. (Goal met) 3. Janet and caregivers/family will benefit from education in home/carryover activities for aphasia rehabilitation. (Goal met) 4. Janet will complete a re-assessment of cognition to further guide POC r/t cognition/memory. (Discontinue) 5. Janet will complete recall tasks of names of family/ pets with 80% accuracy or more following an errorless learning session to review target names. (Discontinue) 6. Janet will accurately state location of dedicated calendar (based on trained spaced retrieval phrase) in 80% of probes independently. (Goal met) 7. Janet will benefit from education re lifestyle factors for brain and cognitive health, including sleep , nutrition, socialization, exercise, etc. (Goal met) Residential Goals 1. Janet will complete cognitive communication tasks with use of strategies or tools as needed given min cueing to complete baseline tasks with minimal difficulty. 02/25/25: Goal met. 2. Janet will improve recall of scheduled events occurring in the past month to 80% using external compensatory strategies to improve communication with family, friends, and medical providers. 02/25/25: Goal met. DISCONTINUED/COMPLETED GOALS: Janet will complete confrontation naming tasks for 2 to 3-syllable words with 80% accuracy without the need for ENTREPRENEURSHIP PROGRAM DIRECTOR cues. (Goal met) Janet will increase her score on the QAB to an overall score of at least 8.9/10.00 (consistent with no aphasia ). (Goal met) Janet will accurately recall names of family/pets with 80% accuracy independently given random probes (not preceded by errorless learning). (Goal met) Treatment Activities Reviewed use of external memory aids, communication strategies in conversation, and education re: holistic lifestyle factors. Provided information for local stroke support group. Discussed progress and recommendations for home. Assessment Patient Response to Good Treatment Rehab Potential Good Impairments Expressive language,Receptive language,Cognitive Identified communication Progress Towards Good Progress,Slow Progress Goals Assessment of Improving Overall Progress Assessment of Pt reported good use of trained compensatory strategies Improvement for memory (i.e., calendar, memory book, visual aids) and communication strategies for conversation. She also reported she continues to try to make progress with holistic lifestyle factors, such as sleep and adequate hydration. Facilitated discussion re: pt?s current cognitive-communication concerns at home and in the community. Pt expressed she continues to have some difficulty understanding others and expressing herself in conversations, but has been actively trying to implement communication strategies previously trained. She has been able to use self-advocacy effectively and has noted minimal communication breakdowns since last session. She expressed mild forgetfulness during routine tasks at home (e.g., misplacing an item or forgetting details from a conversation). Recommended pt continue to implement memory book, utilize lists, and place items in the same location every time to aid with recall. Pt was receptive to these recommendations. Implemented previously trained communication strategies during unstructured conversation with pt. Pt demonstrated occasional word-finding difficulties. She was able to utilize circumlocution independently about half of the time. She benefited from initial reminder to ?describe the word? to retrieve other target words. Given min cue to utilize description, she was able to provide effective description f each word. Pt has been seen for 45 speech therapy visits addressing cognitive-communication in the setting of CVA since the start of care 06/18/24. She has attended at a frequency of once a week, though has missed some appointments. Pt has been motivated and engaged throughout and implemented strategies recommended. Treatment has included education and implementation of external compensatory strategies for memory, word- finding strategies, and communication strategies. Treatment also included education re: holistic lifestyle factors. During the session on this date, pt and caregiver expressed she has been doing well at home and is able to complete baseline tasks with use of compensatory strategies. She also has improved in self- perception of overall communication and is able to utilize strategies with increased ease. She has no further concerns at this time cognitive-communication// speech therapy. Educated pt re: calling PCP for new referral if she notices new onset of difficulty related to cognitive-communication in the future. Pt discharged on this date. Handouts for strategies provided. agreeable to plan and denied any further questions/concerns at the conclusion of the session. Reviewed with Goals,Progress Being Made,Home Exercise Program Patient Patient/Caregiver Good Understanding Plan Amount of Therapy No Further Therapy Recommended Frequency of No Further Therapy Treatment Therapeutic Contents Auditory Comprehension,Cognitive-Linguistic Training, Expressive Language Training Provided Patient/ Home Exercise Program,Plan of Care,Questions/Concerns Caregiver Instruction Therapy Discharge to Home Exercise Program,Discharge from Recommendations Speech Therapy
== END 2025-02-28 11:04 | disposition home or self-care (01) ==
LOC: SP 12:15
PROVIDERS: Family Provider Nurse Practitioner; PCP Family Medicine; Referring Provider Family Medicine; Visit Provider Family Medicine
DX: R47.01 Aphasia (principal); I63.89 Other cerebral infarction; I63.40 Cerebral infarction due to embolism of unspecified cerebral artery
CPT/HCPCS: 92507; 96105; 97129; 97130

== ENCOUNTER → 2025-03-06 14:22 | Outpatient (CLI) | payer MEDICARE, MEDICAID, SELFPAY ==
[2024-09-07 13:07] VITALS: BMI 29.8
== END ==
PROVIDERS: Family Provider Nurse Practitioner; PCP Family Medicine; Visit Provider Nurse Practitioner Family
DX: N39.0 Urinary tract infection, site not specified (principal)
CPT/HCPCS: 87077; 87086

== ENCOUNTER → 2025-04-15 11:58 | Outpatient (CLI) | payer MEDICARE, MEDICAID, SELFPAY ==
[2024-09-07 13:07] VITALS: BMI 29.8
[2025-04-15 13:06] LABS: Microalbumi Creatinin Ratio Ur 149.0 ug/mg CR (<30)
== END ==
PROVIDERS: Family Provider Nurse Practitioner; PCP Family Medicine; Visit Provider Family Medicine
DX: R30.0 Dysuria (principal); I48.0 Paroxysmal atrial fibrillation; R47.01 Aphasia; M54.16 Radiculopathy, lumbar region; Z98.1 Arthrodesis status; I13.0 Hypertensive heart and chronic kidney disease with heart failure and stage 1 through stage 4 chronic kidney disease, or unspecified chronic kidney disease; Z00.00 Encounter for general adult medical examination without abnormal findings
CPT/HCPCS: 82043; 82570; 87077; 87086; 87186

== ENCOUNTER 2025-06-18 12:15 | Outpatient (RCR) | payer MEDICARE, MEDICAID, SELFPAY ==
[2024-09-07 13:07] VITALS: BMI 29.8
--- NOTE | 2024-10-10 13:00 | PT.OIE ---
Current Diagnoses Cerebral infarction, unspecified (10/10/24) Unspecified osteoarthritis, unspecified site (10/10/24) Pain in left knee (10/10/24) Low back pain, unspecified (10/10/24) Unsteadiness on feet (10/10/24) Arthrodesis status (10/10/24) Past Medical History (Last Reviewed 05/10/24 @ 08:24 by Sesar Landrum MD) Abnormal Pap smear of cervix (~1956) ADD (attention deficit disorder) ADD (attention deficit disorder) Anemia Ankle pain Anxiety Arachnoiditis At high risk for cardiovascular disease (Unknown) Atrial fibrillation Bilirubin in urine Bipolar 1 disorder Cardiomegaly Cataracts, bilateral Cervical spine disease Chronic back pain CKD (chronic kidney disease) Class 1 obesity due to excess calories with body mass index (BMI) of 34.0 to 34.9 in adult COPD (chronic obstructive pulmonary disease) COVID Cystic fibrosis (~1956) Degenerative joint disease (DJD) of lumbar spine Depression Dysphagia Dysphagia Encounter for Medicare annual wellness exam Fibromyalgia Fibromyalgia Foot pain Foraminal stenosis of lumbar region Frequent falls GERD (gastroesophageal reflux disease) GI bleeding Heavy menstrual period Hyperlipidemia Hypertension Hypertensive heart and chronic kidney disease with heart failure and stage 1 through stage 4 chronic kidney disease, or unspecified chronic kidney disease Insomnia Kidney cysts Kidney stones Loss of voice Lumbar radiculopathy Osteoporosis Peripheral neuropathy Peripheral vascular disease of extremity with claudication Pneumonia Post traumatic stress disorder (PTSD) Raynaud's disease without gangrene Restless leg syndrome Rheumatoid arthritis Right leg injury Sacralization of lumbar vertebra Sciatica Scoliosis Screening for malignant neoplasm of colon Severe 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, without psychotic features (07/05/16) Skin cancer (~1996) SOB (shortness of breath) on exertion Stroke UTI (urinary tract infection) Venous stasis Vertigo (~1968) Past Surgical History (Last Reviewed 05/10/24 @ 08:24 by Sesar Landrum MD) History of back surgery History of hip replacement History of knee replacement (11/29/16) History of lumbar fusion History of neck surgery S/P total abdominal hysterectomy and bilateral salpingo-oophorectomy Status post appendectomy Status post bunionectomy (08/11/15) Status post cholecystectomy Status post tonsillectomy and adenoidectomy Status post tubal ligation Visit Care Team Role Provider Type HAMZAH Navas Family Provider Advanced Tail Dogger Specialty: Family Practice Address: Email: [email or web address] Nabor Starkey MD Attending Provider Physician Primary Care Provider Referring Provider Specialty: Family Practice Address: [address] [place] [address], [id number] Email: [email or web address] Physical Therapy Initial Evaluation PT-OP-A Visit Information Start: 10/10/24 12:55 Freq: Status: Active Protocol: Document 10/10/24 12:15 DCW (Rec: 10/10/24 12:57 DCW [id number]) Out-Patient Physical Therapy Visit Information Visit Information Visit Type Initial Evaluation Visit Start Time 12:15 Visit Stop Time 12:55 Visit Number 1 Number of CLINICAL SUPERVISOR Visits 0 Evaluation Information Evaluation Date 10/10/24 PT-OP-B Current Condition Start: 10/10/24 12:55 Freq: Status: Active Protocol: Document 10/10/24 12:15 DCW (Rec: 10/11/24 11:30 DCW [id number]) Current Condition History of Current Condition Onset Date Long-standing history Current Complaints Mid back pain, leg pain, declining activity tolerance History of Current Condition Pt is a 79 year old female with a long-standing history of back problems, prior CVA, balance issues, and falls. Pt is well known to this clinic, has been seen off and on multiple times over the last 10 years for various complaints, mainly due to her back. Pt has life-long history of scoliosis, as well as a R TKA ~20 years ago. Notes that she has probably had 29 different surgeries all over my body. Recently has been experiencing increased mid-to- low back pain, as well as pain radiating into her legs. Pt reports fairly significant fatigue with activity, limited gait, and LE weakness. PT-OP-C Subjective Start: 10/10/24 12:55 Freq: Status: Active Protocol: Document 10/10/24 12:15 DCW (Rec: 10/10/24 12:57 DCW [id number]) OP-PT Subjective Patient Comments Patient Comments At my age, my entire body is sore. Patient Questionnaires Oswestry Low Back Index Oswestry Score 22/45 = 48.89% PT-OP-D Balance Start: 10/10/24 12:55 Freq: Status: Active Protocol: Document 10/10/24 12:15 DCW (Rec: 10/11/24 11:30 DCW [id number]) OP-PT Balance Assessment Sitting Balance Static Sitting Balance Ability Good Dynamic Sitting Balance Ability Good Standing Balance Static Standing Balance Ability Poor Dynamic Standing Balance Ability Poor Device Used 4WW Balance Tests Dominguez Balance Test Dominguez Balance Test Score 29/56 Dominguez Impairment Rating 40 to 59% Impaired (Score 23- 33) Dominguez Balance Assessment Evaluation Sitting to Standing Ability Several Tries w/Hands Unsupported Stance Several Tries, 30 seconds Sitting Unsupported, Feet on Floor Safely- 2 minutes Standing to Sitting Ability Assist, Control w/Hands Transfer Ability Safely, Hand Use Unsupported Stance- Eyes Closed 3 seconds Unsupported Stance- Eyes Open Assist to attain, 15 secs Reaching Forward Standing Safely, 5 inches Pick- Up Object From Floor Supervision Look Behind Shoulder - Standing Turns Sideways Only Turning 360 Degrees Turns slowly, but safely Unsupported Stance, Alternating Feet on 2 Steps w/Minimum Assist Stair Unsupported Tandem Stance Assist to Step-15 seconds Unilateral Leg Stance Lifts Leg/Unable to Hold Total Score Dominguez Total Score (out of 56 points) 29 Dominguez Impairment Rating 40 to 59% Impaired (Score 23- 33) Delgado Fall Scale Copyright Permission PT-OP-E Functional Tests Start: 10/10/24 12:55 Freq: Status: Active Protocol: Document 10/10/24 12:15 DCW (Rec: 10/11/24 11:30 DCW [id number]) Functional Tests 2 Minute Walk Test Distance 302' Device Used 4WW Comments 2.52 ft/sec Five Times Sit to Stand Test Score 27.76 PT-OP-M Strength Start: 10/10/24 12:55 Freq: Status: Active Protocol: Document 10/10/24 12:15 DCW (Rec: 10/11/24 11:30 DCW [id number]) Hip Strength Hip Manual Muscle Testing Right Flexion (L2) 4 Good Extension (S1) 4+ Good+ Abduction 4- Good- Adduction 4- Good- External Rotation 4 Good Internal Rotation 4 Good Left Flexion (L2) 3+ Fair+ Extension (S1) 4 Good Abduction 3+ Fair+ Adduction 4- Good- External Rotation 4- Good- Internal Rotation 4- Good- Knee Strength Knee Manual Muscle Testing Right Flexion (S2) 4 Good Extension (L3) 4 Good Left Flexion (S2) 4- Good- Extension (L3) 4- Good- Comments Left knee pain with MMT PT-OP-T Assessment and Plan Start: 10/10/24 12:55 Freq: Status: Active Protocol: Document 10/10/24 12:15 DCW (Rec: 10/11/24 12:36 DCW [id number]) Physical Therapy Assessment Rehab Potential Rehabilitation Potential Fair Evaluation Complexity Number of Personal Factors/Comorbidities 3 or More Number of Body Systems Impaired 4 or More Clinical Presentation at Evaluation Unstable Impairments Impairments Activity Tolerance,Balance, Functional Activities, Functional Mobility,Gait,Pain, Posture,Strength,Tone, Transfers Other Concerns Fall Risk Yes, per 29/56 on Dominguez Barriers to Rehabilitation ADD, Hx of Bipolar disorder, Hx CVA, Hx UTI, Hx A-fib,, Cystic fibrosis, COPD, CKD III , PVD, HTN Goals Three Impairment Pt able to ambulate 306' with 4WW during 2MWT Global Marketing Coordinator Goal (LTG) Pt to demonstrate ability to ambulate >700' using LRAD during a 6MWT to demonstrate improved activity tolerance LTG Duration 01/08/25 Two Impairment Pt presents with a severe increased risk of falls, per Dominguez score (29/56) Global Marketing Coordinator Goal (LTG) Pt to demonstrate a decrease in falls risk by improving her score on the Dominguez Balance Scale by at least six points to 35/56 LTG Duration 01/08/25 One Impairment Pt does not have an appropriate home exercise program Short Term Goal (STG) Pt to be independent and compliant with an appropriate HEP STG Duration 11/08/24 Assessment Summary Assessment Pt presents with signs and symptoms consistent with referring diagnosis. Pt has long-standing issues with her mid- and low-back, leg pain/ weakness, poor balance, and decreased activity tolerance, which have been worsening over the years. Pt shows increased falls risk, scoring 29/56 on the Dominguez, as well as decreased activity tolerance, with a score of 27.76 on the 5xStS and an inability to tolerate a full 6MWT. Pt may benefit from skilled therapeutic intervention focusing on LE strengthening, posture, low back pain management, improving activity tolerance, and balance training. Physical Therapy Plan Frequency and Duration Frequency of Treatment 2x/Week Plan of Care Start Date 10/10/24 Plan of Care End Date 01/08/25 Therapeutic Interventions Therapeutic Interventions Balance Training,Canalithic Repositioning,Coordination Training,Gait Training,Home Exercise Program,Joint Mobilizations,Manual Therapy, Neuromuscular Re-education, Patient/Caregiver Education, Self-Care/Home Management,Soft Tissue Mobilization, Therapeutic Activities, Therapeutic Exercises, Vestibular Rehabilitation Next Visit Focus/Plan Next Note Type Treatment Note Next Visit Plan LE strengthening, activity tolerance, balance training
--- NOTE | 2024-10-10 13:00 | PT.OPPOC ---
Physical, Occupational & Speech Therapy At [facility] Current Diagnoses Cerebral infarction, unspecified (10/10/24) Unspecified osteoarthritis, unspecified site (10/10/24) Pain in left knee (10/10/24) Low back pain, unspecified (10/10/24) Unsteadiness on feet (10/10/24) Arthrodesis status (10/10/24) Visit Care Team Role Provider Type HAMZAH Navas Family Provider Advanced Coke Wheeler Specialty: Family Practice Address: Email: [email or web address] Nabor Starkey MD Attending Provider Physician Primary Care Provider Referring Provider Specialty: [facility] Address: [address] [place] [address] Email: [email or web address] Plan Of Care PT-OP-B Current Condition Start: 10/10/24 12:55 Freq: Status: Active Protocol: Document 10/10/24 12:15 DCW (Rec: 10/11/24 11:30 DCW [id number]) Current Condition History of Current Condition Onset Date Long-standing history Current Complaints Mid back pain, leg pain, declining activity tolerance History of Current Condition Pt is a 79 year old female with a long-standing history of back problems, prior CVA, balance issues, and falls. Pt is well known to this clinic, has been seen off and on multiple times over the last 10 years for various complaints, mainly due to her back. Pt has life-long history of scoliosis, as well as a R TKA ~20 years ago. Notes that she has probably had 29 different surgeries all over my body. Recently has been experiencing increased mid-to- low back pain, as well as pain radiating into her legs. Pt reports fairly significant fatigue with activity, limited gait, and LE weakness. PT-OP-T Assessment and Plan Start: 10/10/24 12:55 Freq: Status: Active Protocol: Document 10/10/24 12:15 DCW (Rec: 10/11/24 12:36 DCW [id number]) Physical Therapy Assessment Rehab Potential Rehabilitation Potential Fair Evaluation Complexity Number of Personal Factors/Comorbidities 3 or More Number of Body Systems Impaired 4 or More Clinical Presentation at Evaluation Unstable Impairments Impairments Activity Tolerance,Balance, Functional Activities, Functional Mobility,Gait,Pain, Posture,Strength,Tone, Transfers Other Concerns Fall Risk Yes, per on Dominguez Barriers to Rehabilitation ADD, Hx of Bipolar disorder, Hx CVA, Hx UTI, Hx A-fib,, Cystic fibrosis, COPD, CKD III , PVD, HTN Goals Three Impairment Pt able to ambulate 306' with 4WW during 2MWT Operator Catalyst Concentration Goal (LTG) Pt to demonstrate ability to ambulate >700' using LRAD during a 6MWT to demonstrate improved activity tolerance LTG Duration 01/08/25 Two Impairment Pt presents with a severe increased risk of falls, per Dominguez score () Skilled Nursing Goal (LTG) Pt to demonstrate a decrease in falls risk by improving her score on the Dominguez Balance Scale by at least six points to 35/56 LTG Duration 01/08/25 One Impairment Pt does not have an appropriate home exercise program Short Term Goal (STG) Pt to be independent and compliant with an appropriate HEP STG Duration 11/08/24 Assessment Summary Assessment Pt presents with signs and symptoms consistent with referring diagnosis. Pt has long-standing issues with her mid- and low-back, leg pain/ weakness, poor balance, and decreased activity tolerance, which have been worsening over the years. Pt shows increased falls risk, scoring 29/56 on the Dominguez, as well as decreased activity tolerance, with a score of 27.76 on the 5xStS and an inability to tolerate a full 6MWT. Pt may benefit from skilled therapeutic intervention focusing on LE strengthening, posture, low back pain management, improving activity tolerance, and balance training. Physical Therapy Plan Frequency and Duration Frequency of Treatment 2x/Week Plan of Care Start Date 10/10/24 Plan of Care End Date 01/08/25 Therapeutic Interventions Therapeutic Interventions Balance Training,Canalithic Repositioning,Coordination Training,Gait Training,Home Exercise Program,Joint Mobilizations,Manual Therapy, Neuromuscular Re-education, Patient/Caregiver Education, Self-Care/Home Management,Soft Tissue Mobilization, Therapeutic Activities, Therapeutic Exercises, Vestibular Rehabilitation Next Visit Focus/Plan Next Note Type Treatment Note Next Visit Plan LE strengthening, activity tolerance, balance training Plan of Care Dates Plan of Care Start Date 10/10/24 Plan of Care End Date 01/08/25 Electronically Signed by: Santi No, PT 10/11/24 [id number] If you are in agreement with this Plan of Care, please return a signed and dated copy. I have reviewed this Plan of Care and certify that the skilled therapy services above are required to meet the patient?s needs. Physician Signature Date Printed Name and Credentials Clinical Instructor Signature Printed Name and Credentials
--- NOTE | 2024-10-12 15:12 | PT.OTN ---
Current Diagnoses Cerebral infarction, unspecified (10/12/24) Unspecified osteoarthritis, unspecified site (10/12/24) Pain in left knee (10/12/24) Low back pain, unspecified (10/12/24) Unsteadiness on feet (10/12/24) Arthrodesis status (10/12/24) Physical Therapy Treatment Note PT-OP-A Visit Information Start: 10/10/24 12:55 Freq: Status: Active Protocol: Document 10/12/24 14:35 DCW (Rec: 10/12/24 15:12 DCW [id number]) Out-Patient Physical Therapy Visit Information Visit Information Visit Type Treatment Note Visit Start Time 14:35 Visit Stop Time 15:15 Visit Number 2 Number of INTERVENTIONAL RADIOLOGIST Visits 0 Evaluation Information Evaluation Date 10/10/24 PT-OP-B Current Condition Start: 10/10/24 12:55 Freq: Status: Active Protocol: Document 10/10/24 12:15 DCW (Rec: 10/11/24 11:30 DCW [id number]) Current Condition History of Current Condition Onset Date Long-standing history Current Complaints Mid back pain, leg pain, declining activity tolerance History of Current Condition Pt is a 79 year old female with a long-standing history of back problems, prior CVA, balance issues, and falls. Pt is well known to this clinic, has been seen off and on multiple times over the last 10 years for various complaints, mainly due to her back. Pt has life-long history of scoliosis, as well as a R TKA ~20 years ago. Notes that she has probably had 29 different surgeries all over my body. Recently has been experiencing increased mid-to- low back pain, as well as pain radiating into her legs. Pt reports fairly significant fatigue with activity, limited gait, and LE weakness. PT-OP-C Subjective Start: 10/10/24 12:55 Freq: Status: Active Protocol: Document 10/12/24 14:35 DCW (Rec: 10/12/24 15:12 DCW [id number]) OP-PT Subjective Patient Comments Patient Comments My knee is really, really, really sore. PT-OP-D Balance Start: 10/10/24 12:55 Freq: Status: Active Protocol: Document 10/10/24 12:15 DCW (Rec: 10/11/24 11:30 DCW [id number]) OP-PT Balance Assessment Sitting Balance Static Sitting Balance Ability Good Dynamic Sitting Balance Ability Good Standing Balance Static Standing Balance Ability Poor Dynamic Standing Balance Ability Poor Device Used 4WW Balance Tests Dominguez Balance Test Dominguez Balance Test Score 29/56 Dominguez Impairment Rating 40 to 59% Impaired (Score 23- 33) Dominguez Balance Assessment Evaluation Sitting to Standing Ability Several Tries w/Hands Unsupported Stance Several Tries, 30 seconds Sitting Unsupported, Feet on Floor Safely- 2 minutes Standing to Sitting Ability Assist, Control w/Hands Transfer Ability Safely, Hand Use Unsupported Stance- Eyes Closed 3 seconds Unsupported Stance- Eyes Open Assist to attain, 15 secs Reaching Forward Standing Safely, 5 inches Pick- Up Object From Floor Supervision Look Behind Shoulder - Standing Turns Sideways Only Turning 360 Degrees Turns slowly, but safely Unsupported Stance, Alternating Feet on 2 Steps w/Minimum Assist Stair Unsupported Tandem Stance Assist to Step-15 seconds Unilateral Leg Stance Lifts Leg/Unable to Hold Total Score Dominguez Total Score (out of 56 points) 29 Dominguez Impairment Rating 40 to 59% Impaired (Score 23- 33) Delgado Fall Scale Copyright Permission PT-OP-E Functional Tests Start: 10/10/24 12:55 Freq: Status: Active Protocol: Document 10/10/24 12:15 DCW (Rec: 10/11/24 11:30 [facility] [id number]) Functional Tests 2 Minute Walk Test Distance 302' Device Used 4WW Comments 2.52 ft/sec Five Times Sit to Stand Test Score 27.76 PT-OP-M Strength Start: 10/10/24 12:55 Freq: Status: Active Protocol: Document 10/10/24 12:15 DCW (Rec: 10/11/24 11:30 [facility] [id number]) Hip Strength Hip Manual Muscle Testing Right Flexion (L2) 4 Good Extension (S1) 4+ Good+ Abduction 4- Good- Adduction 4- Good- External Rotation 4 Good Internal Rotation 4 Good Left Flexion (L2) 3+ Fair+ Extension (S1) 4 Good Abduction 3+ Fair+ Adduction 4- Good- External Rotation 4- Good- Internal Rotation 4- Good- Knee Strength Knee Manual Muscle Testing Right Flexion (S2) 4 Good Extension (L3) 4 Good Left Flexion (S2) 4- Good- Extension (L3) 4- Good- Comments Left knee pain with MMT PT-OP-Q Treatments Start: 10/10/24 12:55 Freq: Status: Active Protocol: Document 10/12/24 14:35 DCW (Rec: 10/12/24 15:12 DCW [id number]) Cardio Equipment Recumbent Stepper (Sci-Fit) Duration (Minutes) 5 Resistance 3 Seat Position 8 Gym Equipment Shuttle Recovery Bilateral Squats Details CGA to assist off Resistance 50# (2 navy) Shuttle Recovery Platform Stable Reps/Time Pain in L knee Therapeutic Exercises Standing Exercises Calf Stretch Standing Exercise Name Calf Stretch Side bilateral Equipment Used MICKEY Other Exercises Side-stepping Other Exercise Name Side-stepping Equipment Used // bars Toe-taps Other Exercise Name Toe-taps Side bilateral Equipment Used 6 step Neuro Re-Education Treatment Balance Activities Tandem Details Tandem Ambulation Equipment // bars, UE support Foam Details Foam Stance Comments NBOS /s UEs PT-OP-T Assessment and Plan Start: 10/10/24 12:55 Freq: Status: Active Protocol: Document 10/12/24 14:35 DCW (Rec: 10/12/24 15:12 DCW [id number]) Physical Therapy Assessment Impairments Impairments Activity Tolerance,Balance, Functional Activities, Functional Mobility,Gait,Pain, Posture,Strength,Tone, Transfers Goals Three Impairment Pt able to ambulate 306' with 4WW during 2MWT Wholesaler Goal (LTG) Pt to demonstrate ability to ambulate >700' using LRAD during a 6MWT to demonstrate improved activity tolerance LTG Duration 01/08/25 Two Impairment Pt presents with a severe increased risk of falls, per Dominguez score (29/56) Wholesaler Goal (LTG) Pt to demonstrate a decrease in falls risk by improving her score on the Dominguez Balance Scale by at least six points to 35/56 LTG Duration 01/08/25 One Impairment Pt does not have an appropriate home exercise program Short Term Goal (STG) Pt to be independent and compliant with an appropriate HEP STG Duration 11/08/24 Assessment Summary Assessment L LE pain, especially knee, limiting some participation today. Limited tolerance to activity. Will likely benefit from continued focus on activity tolerance, strength, and balance training. Physical Therapy Plan Frequency and Duration Frequency of Treatment 2x/Week Plan of Care Start Date 10/10/24 Plan of Care End Date 01/08/25 Therapeutic Interventions Therapeutic Interventions Balance Training,Canalithic Repositioning,Coordination Training,Gait Training,Home Exercise Program,Joint Mobilizations,Manual Therapy, Neuromuscular Re-education, Patient/Caregiver Education, Self-Care/Home Management,Soft Tissue Mobilization, Therapeutic Activities, Therapeutic Exercises, Vestibular Rehabilitation Next Visit Focus/Plan Next Note Type Treatment Note Next Visit Plan LE strengthening, activity tolerance, balance training
--- NOTE | 2024-10-17 13:42 | PT.OTN ---
Current Diagnoses Cerebral infarction, unspecified (10/17/24) Unspecified osteoarthritis, unspecified site (10/17/24) Pain in left knee (10/17/24) Low back pain, unspecified (10/17/24) Unsteadiness on feet (10/17/24) Arthrodesis status (10/17/24) Physical Therapy Treatment Note PT-OP-A Visit Information Start: 10/10/24 12:55 Freq: Status: Active Protocol: Document 10/17/24 13:02 SP (Rec: 10/17/24 13:44 SP [id number]) Out-Patient Physical Therapy Visit Information Visit Information Visit Type Treatment Note Visit Start Time 13:02 Visit Stop Time 13:42 Visit Number 3 Number of DRY CANS BACK TENDER Visits 1 Evaluation Information Evaluation Date 10/10/24 PT-OP-B Current Condition Start: 10/10/24 12:55 Freq: Status: Active Protocol: Document 10/10/24 12:15 DCW (Rec: 10/11/24 11:30 DCW [id number]) Current Condition History of Current Condition Onset Date Long-standing history Current Complaints Mid back pain, leg pain, declining activity tolerance History of Current Condition Pt is a 79 year old female with a long-standing history of back problems, prior CVA, balance issues, and falls. Pt is well known to this clinic, has been seen off and on multiple times over the last 10 years for various complaints, mainly due to her back. Pt has life-long history of scoliosis, as well as a R TKA ~20 years ago. Notes that she has probably had 29 different surgeries all over my body. Recently has been experiencing increased mid-to- low back pain, as well as pain radiating into her legs. Pt reports fairly significant fatigue with activity, limited gait, and LE weakness. PT-OP-C Subjective Start: 10/10/24 12:55 Freq: Status: Active Protocol: Document 10/17/24 13:02 SP (Rec: 10/17/24 13:44 SP [id number]) OP-PT Subjective Patient Comments Patient Comments Pt reports awaiting appt with neurologist. PT-OP-D Balance Start: 10/10/24 12:55 Freq: Status: Active Protocol: Document 10/10/24 12:15 DCW (Rec: 10/11/24 11:30 DCW [id number]) OP-PT Balance Assessment Sitting Balance Static Sitting Balance Ability Good Dynamic Sitting Balance Ability Good Standing Balance Static Standing Balance Ability Poor Dynamic Standing Balance Ability Poor Device Used 4WW Balance Tests Dominguez Balance Test Dominguez Balance Test Score 29/56 Dominguez Impairment Rating 40 to 59% Impaired (Score 23- 33) Dominguez Balance Assessment Evaluation Sitting to Standing Ability Several Tries w/Hands Unsupported Stance Several Tries, 30 seconds Sitting Unsupported, Feet on Floor Safely- 2 minutes Standing to Sitting Ability Assist, Control w/Hands Transfer Ability Safely, Hand Use Unsupported Stance- Eyes Closed 3 seconds Unsupported Stance- Eyes Open Assist to attain, 15 secs Reaching Forward Standing Safely, 5 inches Pick- Up Object From Floor Supervision Look Behind Shoulder - Standing Turns Sideways Only Turning 360 Degrees Turns slowly, but safely Unsupported Stance, Alternating Feet on 2 Steps w/Minimum Assist Stair Unsupported Tandem Stance Assist to Step-15 seconds Unilateral Leg Stance Lifts Leg/Unable to Hold Total Score Dominguez Total Score (out of 56 points) 29 Dominguez Impairment Rating 40 to 59% Impaired (Score 23- 33) Delgado Fall Scale Copyright Permission PT-OP-E Functional Tests Start: 10/10/24 12:55 Freq: Status: Active Protocol: Document 10/10/24 12:15 DCW (Rec: 10/11/24 11:30 DCW [id number]) Functional Tests 2 Minute Walk Test Distance 302' Device Used 4WW Comments 2.52 ft/sec Five Times Sit to Stand Test Score 27.76 PT-OP-M Strength Start: 10/10/24 12:55 Freq: Status: Active Protocol: Document 10/10/24 12:15 DCW (Rec: 10/11/24 11:30 DCW [id number]) Hip Strength Hip Manual Muscle Testing Right Flexion (L2) 4 Good Extension (S1) 4+ Good+ Abduction 4- Good- Adduction 4- Good- External Rotation 4 Good Internal Rotation 4 Good Left Flexion (L2) 3+ Fair+ Extension (S1) 4 Good Abduction 3+ Fair+ Adduction 4- Good- External Rotation 4- Good- Internal Rotation 4- Good- Knee Strength Knee Manual Muscle Testing Right Flexion (S2) 4 Good Extension (L3) 4 Good Left Flexion (S2) 4- Good- Extension (L3) 4- Good- Comments Left knee pain with MMT PT-OP-Q Treatments Start: 10/10/24 12:55 Freq: Status: Active Protocol: Document 10/17/24 13:02 SP (Rec: 10/17/24 13:44 SP [id number]) Gym Equipment Shuttle Recovery Bilateral Squats Details cued slower pacing, not lock knees, CGA to assist off Resistance 50# (2 navy) Shuttle Recovery Platform Stable Reps/Time x15 reps Therapeutic Exercises Sitting Exercises toe raises Sitting Exercise Name added to HEP /c HO Side bilateral Reps/Minutes 2x 10 reps Comments good form hip abduction Sitting Exercise Name added to HEP /c HO Side bilateral Resistance TB #1 aroudn thighs held Reps/Minutes 2x reps Comments cued keep feet down STS Sitting Exercise Name added to HEP /c HO Equipment Used BIG chair Reps/Minutes x10 Comments cued hip hinge BUEs on chair LAQ Sitting Exercise Name added to HEP /c HO Side bilateral Reps/Minutes 20 alternating Comments cued slow steady pacing- good no pain end feel Standing Exercises Calf Stretch Standing Exercise Name Calf Stretch Side bilateral Resistance 1 LE at time, to off balance Jostin Equipment Used MICKEY vs rolled up towel, rail support Reps/Minutes Jostin to off balance, use towel then back to MICKEY, 30 Sh each LE Comments cued tall over stance LE on MICKEY- Other Exercises Side-stepping Other Exercise Name Side, Fwd, Bwd Stepping Resistance GTB at shins Equipment Used // bars, B hands glide on bars Reps/Minutes 10 ft x3 laps Comments cued tall posture, improved lat step with reps Toe-taps Other Exercise Name Toe-taps Side bilateral Equipment Used 6 step, 1 UE support on //bar Reps/Minutes 20 reps alternating Comments cued tall off to L midline posture, tends R trunk lean PT-OP-T Assessment and Plan Start: 10/10/24 12:55 Freq: Status: Active Protocol: Document 10/17/24 13:02 SP (Rec: 10/17/24 13:44 SP [id number]) Physical Therapy Assessment Goals Three Impairment Pt able to ambulate 306' with 4WW during 2MWT Breakfast Cook Goal (LTG) Pt to demonstrate ability to ambulate >700' using LRAD during a 6MWT to demonstrate improved activity tolerance LTG Duration 01/08/25 Two Impairment Pt presents with a severe increased risk of falls, per Dominguez score (29/56) Breakfast Cook Goal (LTG) Pt to demonstrate a decrease in falls risk by improving her score on the Dominguez Balance Scale by at least six points to 35/56 LTG Duration 01/08/25 One Impairment Pt does not have an appropriate home exercise program Short Term Goal (STG) Pt to be independent and compliant with an appropriate HEP STG Duration 11/08/24 Assessment Summary Assessment Pt improved tiring BLE effort today, pleased to get HEP for home with HOs. Cued use BUEs for stand and sit controlled and walking foot clearance. Physical Therapy Plan Frequency and Duration Frequency of Treatment 2x/Week Plan of Care Start Date 10/10/24 Plan of Care End Date 01/08/25 Therapeutic Interventions Therapeutic Interventions Balance Training,Canalithic Repositioning,Coordination Training,Gait Training,Home Exercise Program,Joint Mobilizations,Manual Therapy, Neuromuscular Re-education, Patient/Caregiver Education, Self-Care/Home Management,Soft Tissue Mobilization, Therapeutic Activities, Therapeutic Exercises, Vestibular Rehabilitation Next Visit Focus/Plan Next Note Type Treatment Note Next Visit Plan REcheck HEP: sit LAQ, ABD TB, TR, STS. POC: LE strengthening, activity tolerance, balance training
--- NOTE | 2024-10-19 13:50 | PT.OTN ---
Current Diagnoses Cerebral infarction, unspecified (10/19/24) Unspecified osteoarthritis, unspecified site (10/19/24) Pain in left knee (10/19/24) Low back pain, unspecified (10/19/24) Unsteadiness on feet (10/19/24) Arthrodesis status (10/19/24) Physical Therapy Treatment Note PT-OP-A Visit Information Start: 10/10/24 12:55 Freq: Status: Active Protocol: Document 10/19/24 13:03 SP (Rec: 10/19/24 13:52 SP [id number]) Out-Patient Physical Therapy Visit Information Visit Information Visit Type Treatment Note Visit Start Time 13:03 Visit Stop Time 13:50 Visit Number 4 Number of BOOM STORAGE Visits 2 Evaluation Information Evaluation Date 10/10/24 PT-OP-B Current Condition Start: 10/10/24 12:55 Freq: Status: Active Protocol: Document 10/10/24 12:15 DCW (Rec: 10/11/24 11:30 DCW [id number]) Current Condition History of Current Condition Onset Date Long-standing history Current Complaints Mid back pain, leg pain, declining activity tolerance History of Current Condition Pt is a 79 year old female with a long-standing history of back problems, prior CVA, balance issues, and falls. Pt is well known to this clinic, has been seen off and on multiple times over the last 10 years for various complaints, mainly due to her back. Pt has life-long history of scoliosis, as well as a R TKA ~20 years ago. Notes that she has probably had 29 different surgeries all over my body. Recently has been experiencing increased mid-to- low back pain, as well as pain radiating into her legs. Pt reports fairly significant fatigue with activity, limited gait, and LE weakness. PT-OP-C Subjective Start: 10/10/24 12:55 Freq: Status: Active Protocol: Document 10/19/24 13:03 SP (Rec: 10/19/24 13:52 SP [id number]) OP-PT Subjective Patient Comments Patient Comments Pt reports felt like didn't sit on her buttocks after time . Has appt with neurologist in [facility] next week to see about L knee pain. She stated was supposed to have R shld surgery but feels L knee is most crucial at this time. PT-OP-D Balance Start: 10/10/24 12:55 Freq: Status: Active Protocol: Document 10/10/24 12:15 DCW (Rec: 10/11/24 11:30 DCW [id number]) OP-PT Balance Assessment Sitting Balance Static Sitting Balance Ability Good Dynamic Sitting Balance Ability Good Standing Balance Static Standing Balance Ability Poor Dynamic Standing Balance Ability Poor Device Used 4WW Balance Tests Dominguez Balance Test Dominguez Balance Test Score 29/56 Dominguez Impairment Rating 40 to 59% Impaired (Score 23- 33) Dominguez Balance Assessment Evaluation Sitting to Standing Ability Several Tries w/Hands Unsupported Stance Several Tries, 30 seconds Sitting Unsupported, Feet on Floor Safely- 2 minutes Standing to Sitting Ability Assist, Control w/Hands Transfer Ability Safely, Hand Use Unsupported Stance- Eyes Closed 3 seconds Unsupported Stance- Eyes Open Assist to attain, 15 secs Reaching Forward Standing Safely, 5 inches Pick- Up Object From Floor Supervision Look Behind Shoulder - Standing Turns Sideways Only Turning 360 Degrees Turns slowly, but safely Unsupported Stance, Alternating Feet on 2 Steps w/Minimum Assist Stair Unsupported Tandem Stance Assist to Step-15 seconds Unilateral Leg Stance Lifts Leg/Unable to Hold Total Score Dominguez Total Score (out of 56 points) 29 Dominguez Impairment Rating 40 to 59% Impaired (Score 23- 33) Delgado Fall Scale Copyright Permission PT-OP-E Functional Tests Start: 10/10/24 12:55 Freq: Status: Active Protocol: Document 10/10/24 12:15 DCW (Rec: 10/11/24 11:30 DCW [id number]) Functional Tests 2 Minute Walk Test Distance 302' Device Used 4WW Comments 2.52 ft/sec Five Times Sit to Stand Test Score 27.76 PT-OP-M Strength Start: 10/10/24 12:55 Freq: Status: Active Protocol: Document 10/10/24 12:15 DCW (Rec: 10/11/24 11:30 DCW [id number]) Hip Strength Hip Manual Muscle Testing Right Flexion (L2) 4 Good Extension (S1) 4+ Good+ Abduction 4- Good- Adduction 4- Good- External Rotation 4 Good Internal Rotation 4 Good Left Flexion (L2) 3+ Fair+ Extension (S1) 4 Good Abduction 3+ Fair+ Adduction 4- Good- External Rotation 4- Good- Internal Rotation 4- Good- Knee Strength Knee Manual Muscle Testing Right Flexion (S2) 4 Good Extension (L3) 4 Good Left Flexion (S2) 4- Good- Extension (L3) 4- Good- Comments Left knee pain with MMT PT-OP-Q Treatments Start: 10/10/24 12:55 Freq: Status: Active Protocol: Document 10/19/24 13:03 SP (Rec: 10/19/24 13:52 SP [id number]) Cardio Equipment Recumbent Stepper (Sci-Fit) Duration (Minutes) 5 Resistance 3 Seat Position 9>8- able keep feet on peddles Other BUEs&BLEs, 49 RPMs, Gym Equipment Shuttle Recovery Unilateral Squats Details cued slower pacing eccentric control, Knee lateral midline alignment /c mid Resistance 37# R, 25# R (1 [employer]) Shuttle Recovery Platform Stable Reps/Time 2x15 ea Bilateral Squats Details cued slower pacing, not lock knees- L lean midline trunk Resistance 50#> 62# (2 navy) Shuttle Recovery Platform Stable Reps/Time x15 reps Therapeutic Exercises Sitting Exercises Lateral trunk Lean stretch Sitting Exercise Name trailed in PT- unable to access [facility] to give HO Resistance L Lat lean- stretch R QL & Lat - RUE reach OH Equipment Used mirror front Reps/Minutes 20 SH x3 reps Comments support elongation on right side for progression midline alig. hip abduction Sitting Exercise Name reviewed Side bilateral Resistance TB #1 around thighs held at side thighs Reps/Minutes 20x reps Comments cued keep feet down STS Sitting Exercise Name reviewed Equipment Used BIG chair Reps/Minutes x10 arms front, 5 reps arms down Comments cued, knees apart and hip hinge asc, slower descend LAQ Sitting Exercise Name reviewed Side bilateral Resistance 2# leg wt Equipment Used front mirror Reps/Minutes 20 alternating Comments cued slow steady pacing- good no pain end feel Other Exercises Side-stepping Other Exercise Name Side Stepping Resistance GTB at shins/ankles Equipment Used // bars, B hands glide on bars Reps/Minutes 10 ft x3 laps Comments cued tall posture L upper trunk lean, improved lat step with reps Toe-taps Other Exercise Name Toe-taps Side bilateral Resistance 2# leg wts Equipment Used 6 step, R UE support on //bar , mirror front for self postural correction L Reps/Minutes 20 reps alternating x2 Comments cued tall off to L midline posture, tends R trunk lean Self-Care/Home Management Treatment Education Patient Education Body Mechanics,Home Exercise Program,Posture Other Education ed cues and use mirror for support of body mechanics and postural alignment during ther ex seated and standing, provided post card taped to 3WW, self feedback cues for upright posture and proximal positioing to 3WW. PT-OP-T Assessment and Plan Start: 10/10/24 12:55 Freq: Status: Active Protocol: Document 10/19/24 13:03 SP (Rec: 10/19/24 13:52 SP [id number]) Physical Therapy Assessment Goals Three Impairment Pt able to ambulate 306' with 4WW during 2MWT General Ledger Bookkeeper Goal (LTG) Pt to demonstrate ability to ambulate >700' using LRAD during a 6MWT to demonstrate improved activity tolerance LTG Duration 01/08/25 Two Impairment Pt presents with a severe increased risk of falls, per Dominguez score (29/56) Penitentiary Goal (LTG) Pt to demonstrate a decrease in falls risk by improving her score on the Dominguez Balance Scale by at least six points to 35/56 LTG Duration 01/08/25 One Impairment Pt does not have an appropriate home exercise program Short Term Goal (STG) Pt to be independent and compliant with an appropriate HEP STG Duration 11/08/24 Assessment Summary Assessment Pt improved self corrections post education and cuing, with use mirror reinforcement self awareness increased upright posture and L trunk lean and R lateral trunk stretch to support elongation during seated and standing activities today. Physical Therapy Plan Frequency and Duration Frequency of Treatment 2x/Week Plan of Care Start Date 10/10/24 Plan of Care End Date 01/08/25 Therapeutic Interventions Therapeutic Interventions Balance Training,Canalithic Repositioning,Coordination Training,Gait Training,Home Exercise Program,Joint Mobilizations,Manual Therapy, Neuromuscular Re-education, Patient/Caregiver Education, Self-Care/Home Management,Soft Tissue Mobilization, Therapeutic Activities, Therapeutic Exercises, Vestibular Rehabilitation Next Visit Focus/Plan Next Note Type Treatment Note Next Visit Plan Use mirror for postural correction self assist alignment during REcheck HEP: sit LAQ, ABD TB, TR, STS. POC: LE strengthening, activity tolerance, balance training
--- NOTE | 2024-10-22 15:16 | PT.OTN ---
Current Diagnoses Cerebral infarction, unspecified (10/22/24) Unspecified osteoarthritis, unspecified site (10/22/24) Pain in left knee (10/22/24) Low back pain, unspecified (10/22/24) Unsteadiness on feet (10/22/24) Arthrodesis status (10/22/24) Physical Therapy Treatment Note PT-OP-A Visit Information Start: 10/10/24 12:55 Freq: Status: Active Protocol: Document 10/22/24 14:30 DCW (Rec: 10/22/24 15:16 DCW [id number]) Out-Patient Physical Therapy Visit Information Visit Information Visit Type Treatment Note Visit Start Time 14:30 Visit Stop Time 15:15 Visit Number 5 Number of DIRECTOR OF HOSPITALITY Visits 0 Evaluation Information Evaluation Date 10/10/24 PT-OP-B Current Condition Start: 10/10/24 12:55 Freq: Status: Active Protocol: Document 10/10/24 12:15 DCW (Rec: 10/11/24 11:30 DCW [id number]) Current Condition History of Current Condition Onset Date Long-standing history Current Complaints Mid back pain, leg pain, declining activity tolerance History of Current Condition Pt is a 79 year old female with a long-standing history of back problems, prior CVA, balance issues, and falls. Pt is well known to this clinic, has been seen off and on multiple times over the last 10 years for various complaints, mainly due to her back. Pt has life-long history of scoliosis, as well as a R TKA ~20 years ago. Notes that she has probably had 29 different surgeries all over my body. Recently has been experiencing increased mid-to- low back pain, as well as pain radiating into her legs. Pt reports fairly significant fatigue with activity, limited gait, and LE weakness. PT-OP-C Subjective Start: 10/10/24 12:55 Freq: Status: Active Protocol: Document 10/22/24 14:30 DCW (Rec: 10/22/24 15:16 DCW [id number]) OP-PT Subjective Patient Comments Patient Comments Pt reports she is feeling fine! PT-OP-D Balance Start: 10/10/24 12:55 Freq: Status: Active Protocol: Document 10/10/24 12:15 DCW (Rec: 10/11/24 11:30 DCW [id number]) OP-PT Balance Assessment Sitting Balance Static Sitting Balance Ability Good Dynamic Sitting Balance Ability Good Standing Balance Static Standing Balance Ability Poor Dynamic Standing Balance Ability Poor Device Used 4WW Balance Tests Dominguez Balance Test Dominguez Balance Test Score 29/56 Dominguez Impairment Rating 40 to 59% Impaired (Score 23- 33) Dominguez Balance Assessment Evaluation Sitting to Standing Ability Several Tries w/Hands Unsupported Stance Several Tries, 30 seconds Sitting Unsupported, Feet on Floor Safely- 2 minutes Standing to Sitting Ability Assist, Control w/Hands Transfer Ability Safely, Hand Use Unsupported Stance- Eyes Closed 3 seconds Unsupported Stance- Eyes Open Assist to attain, 15 secs Reaching Forward Standing Safely, 5 inches Pick- Up Object From Floor Supervision Look Behind Shoulder - Standing Turns Sideways Only Turning 360 Degrees Turns slowly, but safely Unsupported Stance, Alternating Feet on 2 Steps w/Minimum Assist Stair Unsupported Tandem Stance Assist to Step-15 seconds Unilateral Leg Stance Lifts Leg/Unable to Hold Total Score Dominguez Total Score (out of 56 points) 29 Dominguez Impairment Rating 40 to 59% Impaired (Score 23- 33) Delgado Fall Scale Copyright Permission PT-OP-E Functional Tests Start: 10/10/24 12:55 Freq: Status: Active Protocol: Document 10/10/24 12:15 DCW (Rec: 10/11/24 11:30 [facility] [id number]) Functional Tests 2 Minute Walk Test Distance 302' Device Used 4WW Comments 2.52 ft/sec Five Times Sit to Stand Test Score 27.76 PT-OP-M Strength Start: 10/10/24 12:55 Freq: Status: Active Protocol: Document 10/10/24 12:15 DCW (Rec: 10/11/24 11:30 [facility] [id number]) Hip Strength Hip Manual Muscle Testing Right Flexion (L2) 4 Good Extension (S1) 4+ Good+ Abduction 4- Good- Adduction 4- Good- External Rotation 4 Good Internal Rotation 4 Good Left Flexion (L2) 3+ Fair+ Extension (S1) 4 Good Abduction 3+ Fair+ Adduction 4- Good- External Rotation 4- Good- Internal Rotation 4- Good- Knee Strength Knee Manual Muscle Testing Right Flexion (S2) 4 Good Extension (L3) 4 Good Left Flexion (S2) 4- Good- Extension (L3) 4- Good- Comments Left knee pain with MMT PT-OP-Q Treatments Start: 10/10/24 12:55 Freq: Status: Active Protocol: Document 10/22/24 14:30 DCW (Rec: 10/22/24 15:16 DCW [id number]) Cardio Equipment Recumbent Bicycle Duration (Minutes) 6 Resistance 3 Seat Position 2 Gym Equipment Cable Column (Body Solid) Hip Adduction Resistance 50# Hip Abduction Resistance 20# Shuttle Recovery Unilateral Squats Details cued slower pacing eccentric control, Knee lateral midline alignment /c mid Resistance 50# (two teal) Shuttle Recovery Platform Stable Reps/Time 2x15 ea Bilateral Squats Details cued slower pacing, not lock knees- L lean midline trunk Resistance 62# (2 navy) - increase next visit Shuttle Recovery Platform Stable Reps/Time x15 reps Therapeutic Exercises Sitting Exercises Hamstring Curls Sitting Exercise Name Hamstring Curls Side bilateral Resistance Lv 3 hip abduction Sitting Exercise Name Hip Abduction Side bilateral Resistance Lv 3 STS Sitting Exercise Name StS Reps/Minutes x10, UEs on thighs LAQ Sitting Exercise Name LAQ Side bilateral Resistance 4# Other Exercises Toe-taps Other Exercise Name Toe-taps Side bilateral Resistance AirEx stance Equipment Used 6 step, R UE support on //bar Reps/Minutes 20 reps alternating x2 Comments cued tall off to L midline posture, tends R trunk lean PT-OP-T Assessment and Plan Start: 10/10/24 12:55 Freq: Status: Active Protocol: Document 10/22/24 14:30 DCW (Rec: 10/22/24 15:16 DCW [id number]) Physical Therapy Assessment Impairments Impairments Activity Tolerance,Balance, Functional Activities, Functional Mobility,Gait,Pain, Posture,Strength,Tone, Transfers Goals Three Impairment Pt able to ambulate 306' with 4WW during 2MWT Risk Lead Goal (LTG) Pt to demonstrate ability to ambulate >700' using LRAD during a 6MWT to demonstrate improved activity tolerance LTG Duration 01/08/25 Two Impairment Pt presents with a severe increased risk of falls, per Dominguez score (29/56) Risk Lead Goal (LTG) Pt to demonstrate a decrease in falls risk by improving her score on the Dominguez Balance Scale by at least six points to 35/56 LTG Duration 01/08/25 One Impairment Pt does not have an appropriate home exercise program Short Term Goal (STG) Pt to be independent and compliant with an appropriate HEP STG Duration 3/6/25 Assessment Summary Assessment Pt did well with new exercises , and with increased resistance on leg press. Continue focusing on strength, balance, and improving activity tolerance. Physical Therapy Plan Frequency and Duration Frequency of Treatment 2x/Week Plan of Care Start Date 10/10/24 Plan of Care End Date 01/08/25 Therapeutic Interventions Therapeutic Interventions Balance Training,Canalithic Repositioning,Coordination Training,Gait Training,Home Exercise Program,Joint Mobilizations,Manual Therapy, Neuromuscular Re-education, Patient/Caregiver Education, Self-Care/Home Management,Soft Tissue Mobilization, Therapeutic Activities, Therapeutic Exercises, Vestibular Rehabilitation Next Visit Focus/Plan Next Note Type Treatment Note Next Visit Plan Use mirror for postural correction self assist alignment during REcheck HEP: sit LAQ, ABD TB, TR, STS. POC: LE strengthening, activity tolerance, balance training
--- NOTE | 2024-10-26 12:58 | PT.OTN ---
Current Diagnoses Cerebral infarction, unspecified (10/26/24) Unspecified osteoarthritis, unspecified site (10/26/24) Pain in left knee (10/26/24) Low back pain, unspecified (10/26/24) Unsteadiness on feet (10/26/24) Arthrodesis status (10/26/24) Physical Therapy Treatment Note PT-OP-A Visit Information Start: 10/10/24 12:55 Freq: Status: Active Protocol: Document 10/26/24 12:15 DCW (Rec: 10/26/24 12:58 DCW [id number]) Out-Patient Physical Therapy Visit Information Visit Information Visit Type Treatment Note Visit Start Time 12:15 Visit Stop Time 13:00 Visit Number 6 Number of LEAD CUSTODIAN Visits 0 Evaluation Information Evaluation Date 10/10/24 PT-OP-B Current Condition Start: 10/10/24 12:55 Freq: Status: Active Protocol: Document 10/10/24 12:15 DCW (Rec: 10/11/24 11:30 DCW [id number]) Current Condition History of Current Condition Onset Date Long-standing history Current Complaints Mid back pain, leg pain, declining activity tolerance History of Current Condition Pt is a 79 year old female with a long-standing history of back problems, prior CVA, balance issues, and falls. Pt is well known to this clinic, has been seen off and on multiple times over the last 10 years for various complaints, mainly due to her back. Pt has life-long history of scoliosis, as well as a R TKA ~20 years ago. Notes that she has probably had 29 different surgeries all over my body. Recently has been experiencing increased mid-to- low back pain, as well as pain radiating into her legs. Pt reports fairly significant fatigue with activity, limited gait, and LE weakness. PT-OP-C Subjective Start: 10/10/24 12:55 Freq: Status: Active Protocol: Document 10/26/24 12:15 DCW (Rec: 10/26/24 12:58 DCW [id number]) OP-PT Subjective Patient Comments Patient Comments Pt feeling alright today. PT-OP-D Balance Start: 10/10/24 12:55 Freq: Status: Active Protocol: Document 10/10/24 12:15 DCW (Rec: 10/11/24 11:30 DCW [id number]) OP-PT Balance Assessment Sitting Balance Static Sitting Balance Ability Good Dynamic Sitting Balance Ability Good Standing Balance Static Standing Balance Ability Poor Dynamic Standing Balance Ability Poor Device Used 4WW Balance Tests Dominguez Balance Test Dominguez Balance Test Score 29/56 Dominguez Impairment Rating 40 to 59% Impaired (Score 23- 33) Dominguez Balance Assessment Evaluation Sitting to Standing Ability Several Tries w/Hands Unsupported Stance Several Tries, 30 seconds Sitting Unsupported, Feet on Floor Safely- 2 minutes Standing to Sitting Ability Assist, Control w/Hands Transfer Ability Safely, Hand Use Unsupported Stance- Eyes Closed 3 seconds Unsupported Stance- Eyes Open Assist to attain, 15 secs Reaching Forward Standing Safely, 5 inches Pick- Up Object From Floor Supervision Look Behind Shoulder - Standing Turns Sideways Only Turning 360 Degrees Turns slowly, but safely Unsupported Stance, Alternating Feet on 2 Steps w/Minimum Assist Stair Unsupported Tandem Stance Assist to Step-15 seconds Unilateral Leg Stance Lifts Leg/Unable to Hold Total Score Dominguez Total Score (out of 56 points) 29 Dominguez Impairment Rating 40 to 59% Impaired (Score 23- 33) Delgado Fall Scale Copyright Permission PT-OP-E Functional Tests Start: 10/10/24 12:55 Freq: Status: Active Protocol: Document 10/10/24 12:15 DCW (Rec: 10/11/24 11:30 [facility] [id number]) Functional Tests 2 Minute Walk Test Distance 302' Device Used 4WW Comments 2.52 ft/sec Five Times Sit to Stand Test Score 27.76 PT-OP-M Strength Start: 10/10/24 12:55 Freq: Status: Active Protocol: Document 10/10/24 12:15 DCW (Rec: 10/11/24 11:30 [facility] [id number]) Hip Strength Hip Manual Muscle Testing Right Flexion (L2) 4 Good Extension (S1) 4+ Good+ Abduction 4- Good- Adduction 4- Good- External Rotation 4 Good Internal Rotation 4 Good Left Flexion (L2) 3+ Fair+ Extension (S1) 4 Good Abduction 3+ Fair+ Adduction 4- Good- External Rotation 4- Good- Internal Rotation 4- Good- Knee Strength Knee Manual Muscle Testing Right Flexion (S2) 4 Good Extension (L3) 4 Good Left Flexion (S2) 4- Good- Extension (L3) 4- Good- Comments Left knee pain with MMT PT-OP-Q Treatments Start: 10/10/24 12:55 Freq: Status: Active Protocol: Document 10/26/24 12:15 DCW (Rec: 10/26/24 12:58 DCW [id number]) Cardio Equipment Recumbent Stepper (Sci-Fit) Duration (Minutes) 5 Resistance 3 Seat Position 10 Gym Equipment Cable Column (Body Solid) Hip Adduction Resistance 60# Hip Abduction Resistance 30# Shuttle Recovery Unilateral Squats Details cued slower pacing Resistance 50# (two teal) Shuttle Recovery Platform Stable Reps/Time 2x15 ea Bilateral Squats Details cued slower pacing Resistance 75# (2 navy) Shuttle Recovery Platform Stable Reps/Time x15 reps Therapeutic Exercises Other Exercises Side-stepping Other Exercise Name Side Stepping Resistance GTB at shins/ankles Equipment Used // bars, B hands glide on bars Reps/Minutes 10 ft x3 laps Comments cued tall posture L upper trunk lean, improved lat step with reps Toe-taps Other Exercise Name Toe-taps Side bilateral Resistance AirEx stance Equipment Used 6 step, R UE support on //bar Reps/Minutes 20 reps alternating x2 Neuro Re-Education Treatment Balance Activities Tandem Details Tandem Ambulation Equipment // bars, UE support Foam Details Foam Stance Comments EO/EC PT-OP-T Assessment and Plan Start: 10/10/24 12:55 Freq: Status: Active Protocol: Document 10/26/24 12:15 DCW (Rec: 10/26/24 12:58 DCW [id number]) Physical Therapy Assessment Impairments Impairments Activity Tolerance,Balance, Functional Activities, Functional Mobility,Gait,Pain, Posture,Strength,Tone, Transfers Goals Three Impairment Pt able to ambulate 306' with 4WW during 2MWT Manager Functional Goal (LTG) Pt to demonstrate ability to ambulate >700' using LRAD during a 6MWT to demonstrate improved activity tolerance LTG Duration 01/08/25 Two Impairment Pt presents with a severe increased risk of falls, per Dominguez score (29/56) Manager Functional Goal (LTG) Pt to demonstrate a decrease in falls risk by improving her score on the Dominguez Balance Scale by at least six points to 35/56 LTG Duration 01/08/25 One Impairment Pt does not have an appropriate home exercise program Short Term Goal (STG) Pt to be independent and compliant with an appropriate HEP STG Duration 11/08/24 Assessment Summary Assessment Continue to focus on balance and LE strengthening, pt displaying some improved activity tolerance. Physical Therapy Plan Frequency and Duration Frequency of Treatment 2x/Week Plan of Care Start Date 10/10/24 Plan of Care End Date 01/08/25 Therapeutic Interventions Therapeutic Interventions Balance Training,Canalithic Repositioning,Coordination Training,Gait Training,Home Exercise Program,Joint Mobilizations,Manual Therapy, Neuromuscular Re-education, Patient/Caregiver Education, Self-Care/Home Management,Soft Tissue Mobilization, Therapeutic Activities, Therapeutic Exercises, Vestibular Rehabilitation Next Visit Focus/Plan Next Note Type Treatment Note Next Visit Plan Use mirror for postural correction self assist alignment during REcheck HEP: sit LAQ, ABD TB, TR, STS. POC: LE strengthening, activity tolerance, balance training
--- NOTE | 2024-10-30 13:01 | PT.OTN ---
Current Diagnoses Cerebral infarction, unspecified (10/30/24) Unspecified osteoarthritis, unspecified site (10/30/24) Pain in left knee (10/30/24) Low back pain, unspecified (10/30/24) Unsteadiness on feet (10/30/24) Arthrodesis status (10/30/24) Physical Therapy Treatment Note PT-OP-A Visit Information Start: 10/10/24 12:55 Freq: Status: Active Protocol: Document 10/30/24 12:00 DCW (Rec: 10/30/24 13:01 DCW [id number]) Out-Patient Physical Therapy Visit Information Visit Information Visit Type Treatment Note Visit Start Time 12:15 Visit Stop Time 13:00 Visit Number 7 Number of [employer] SALES REPRESENTATIVE Visits 0 Evaluation Information Evaluation Date 10/10/24 PT-OP-B Current Condition Start: 10/10/24 12:55 Freq: Status: Active Protocol: Document 10/10/24 12:15 DCW (Rec: 10/11/24 11:30 DCW [id number]) Current Condition History of Current Condition Onset Date Long-standing history Current Complaints Mid back pain, leg pain, declining activity tolerance History of Current Condition Pt is a 79 year old female with a long-standing history of back problems, prior CVA, balance issues, and falls. Pt is well known to this clinic, has been seen off and on multiple times over the last 10 years for various complaints, mainly due to her back. Pt has life-long history of scoliosis, as well as a R TKA ~20 years ago. Notes that she has probably had 29 different surgeries all over my body. Recently has been experiencing increased mid-to- low back pain, as well as pain radiating into her legs. Pt reports fairly significant fatigue with activity, limited gait, and LE weakness. PT-OP-C Subjective Start: 10/10/24 12:55 Freq: Status: Active Protocol: Document 10/30/24 12:00 DCW (Rec: 10/30/24 13:01 DCW [id number]) OP-PT Subjective Patient Comments Patient Comments Pt notes her right hip is out of whack today. PT-OP-D Balance Start: 10/10/24 12:55 Freq: Status: Active Protocol: Document 10/10/24 12:15 DCW (Rec: 10/11/24 11:30 DCW [id number]) OP-PT Balance Assessment Sitting Balance Static Sitting Balance Ability Good Dynamic Sitting Balance Ability Good Standing Balance Static Standing Balance Ability Poor Dynamic Standing Balance Ability Poor Device Used 4WW Balance Tests Dominguez Balance Test Dominguez Balance Test Score 29/56 Dominguez Impairment Rating 40 to 59% Impaired (Score 23- 33) Dominguez Balance Assessment Evaluation Sitting to Standing Ability Several Tries w/Hands Unsupported Stance Several Tries, 30 seconds Sitting Unsupported, Feet on Floor Safely- 2 minutes Standing to Sitting Ability Assist, Control w/Hands Transfer Ability Safely, Hand Use Unsupported Stance- Eyes Closed 3 seconds Unsupported Stance- Eyes Open Assist to attain, 15 secs Reaching Forward Standing Safely, 5 inches Pick- Up Object From Floor Supervision Look Behind Shoulder - Standing Turns Sideways Only Turning 360 Degrees Turns slowly, but safely Unsupported Stance, Alternating Feet on 2 Steps w/Minimum Assist Stair Unsupported Tandem Stance Assist to Step-15 seconds Unilateral Leg Stance Lifts Leg/Unable to Hold Total Score Dominguez Total Score (out of 56 points) 29 Dominguez Impairment Rating 40 to 59% Impaired (Score 23- 33) Delgado Fall Scale Copyright Permission PT-OP-E Functional Tests Start: 10/10/24 12:55 Freq: Status: Active Protocol: Document 10/10/24 12:15 DCW (Rec: 10/11/24 11:30 [facility] [id number]) Functional Tests 2 Minute Walk Test Distance 302' Device Used 4WW Comments 2.52 ft/sec Five Times Sit to Stand Test Score 27.76 PT-OP-M Strength Start: 10/10/24 12:55 Freq: Status: Active Protocol: Document 10/10/24 12:15 DCW (Rec: 10/11/24 11:30 NDW [id number]) Hip Strength Hip Manual Muscle Testing Right Flexion (L2) 4 Good Extension (S1) 4+ Good+ Abduction 4- Good- Adduction 4- Good- External Rotation 4 Good Internal Rotation 4 Good Left Flexion (L2) 3+ Fair+ Extension (S1) 4 Good Abduction 3+ Fair+ Adduction 4- Good- External Rotation 4- Good- Internal Rotation 4- Good- Knee Strength Knee Manual Muscle Testing Right Flexion (S2) 4 Good Extension (L3) 4 Good Left Flexion (S2) 4- Good- Extension (L3) 4- Good- Comments Left knee pain with MMT PT-OP-Q Treatments Start: 10/10/24 12:55 Freq: Status: Active Protocol: Document 10/30/24 12:00 DCW (Rec: 10/30/24 13:01 [facility] [id number]) Cardio Equipment Recumbent Stepper (Sci-Fit) Duration (Minutes) 5 Resistance 3 Seat Position 10 Gym Equipment Shuttle Recovery Unilateral Squats Details cued slower pacing Resistance 50# (two teal) Shuttle Recovery Platform Stable Reps/Time 2x15 ea Bilateral Squats Details cued slower pacing Resistance 75# (2 navy) Shuttle Recovery Platform Stable Reps/Time 2x15 reps Therapeutic Exercises Other Exercises Side-stepping Other Exercise Name Side Stepping Resistance Green loop Equipment Used // bars, B hands glide on bars Reps/Minutes 10 ft x3 laps Neuro Re-Education Treatment Balance Activities Hurdles Details Hurdles Equipment // bars Comments Forward, Lateral Balloon Volley Details Balloon Volley Surface AirEx Tandem Details Tandem Ambulation Equipment // bars, UE support PT-OP-T Assessment and Plan Start: 10/10/24 12:55 Freq: Status: Active Protocol: Document 10/30/24 12:00 DCW (Rec: 10/30/24 13:01 NDW [id number]) Physical Therapy Assessment Impairments Impairments Activity Tolerance,Balance, Functional Activities, Functional Mobility,Gait,Pain, Posture,Strength,Tone, Transfers Goals Three Impairment Pt able to ambulate 306' with 4WW during 2MWT Space Officer Goal (LTG) Pt to demonstrate ability to ambulate >700' using LRAD during a 6MWT to demonstrate improved activity tolerance LTG Duration 01/08/25 Two Impairment Pt presents with a severe increased risk of falls, per Dominguez score (29/56) Group Home Goal (LTG) Pt to demonstrate a decrease in falls risk by improving her score on the Dominguez Balance Scale by at least six points to 35/56 LTG Duration 01/08/25 One Impairment Pt does not have an appropriate home exercise program Short Term Goal (STG) Pt to be independent and compliant with an appropriate HEP STG Duration 11/08/24 Assessment Summary Assessment Pt tolerated treatment well, did a few new balance challenges, pt showing some improvement, although still relies fairly heavily on her UEs for support. Physical Therapy Plan Frequency and Duration Frequency of Treatment 2x/Week Plan of Care Start Date 10/10/24 Plan of Care End Date 01/08/25 Therapeutic Interventions Therapeutic Interventions Balance Training,Canalithic Repositioning,Coordination Training,Gait Training,Home Exercise Program,Joint Mobilizations,Manual Therapy, Neuromuscular Re-education, Patient/Caregiver Education, Self-Care/Home Management,Soft Tissue Mobilization, Therapeutic Activities, Therapeutic Exercises, Vestibular Rehabilitation Next Visit Focus/Plan Next Note Type Treatment Note Next Visit Plan Use mirror for postural correction self assist alignment during REcheck HEP: sit LAQ, ABD TB, TR, STS. POC: LE strengthening, activity tolerance, balance training
--- NOTE | 2024-11-21 12:30 | PT.OTN ---
Current Diagnoses Cerebral infarction, unspecified (11/21/24) Unspecified osteoarthritis, unspecified site (11/21/24) Pain in left knee (11/21/24) Low back pain, unspecified (11/21/24) Unsteadiness on feet (11/21/24) Arthrodesis status (11/21/24) Physical Therapy Treatment Note PT-OP-A Visit Information Start: 10/10/24 12:55 Freq: Status: Active Protocol: Document 11/21/24 11:02 NBM (Rec: 11/21/24 12:30 NBM [id number]) Out-Patient Physical Therapy Visit Information Visit Information Visit Type Treatment Note Visit Start Time 11:30 Visit Stop Time 12:20 Visit Number 8 Number of REPORTER Visits 1 Evaluation Information Evaluation Date 10/10/24 PT-OP-B Current Condition Start: 10/10/24 12:55 Freq: Status: Active Protocol: Document 10/10/24 12:15 DCW (Rec: 10/11/24 11:30 DCW [id number]) Current Condition History of Current Condition Onset Date Long-standing history Current Complaints Mid back pain, leg pain, declining activity tolerance History of Current Condition Pt is a 79 year old female with a long-standing history of back problems, prior CVA, balance issues, and falls. Pt is well known to this clinic, has been seen off and on multiple times over the last 10 years for various complaints, mainly due to her back. Pt has life-long history of scoliosis, as well as a R TKA ~20 years ago. Notes that she has probably had 29 different surgeries all over my body. Recently has been experiencing increased mid-to- low back pain, as well as pain radiating into her legs. Pt reports fairly significant fatigue with activity, limited gait, and LE weakness. PT-OP-C Subjective Start: 10/10/24 12:55 Freq: Status: Active Protocol: Document 11/21/24 11:02 NBM (Rec: 11/21/24 12:30 NBM [id number]) OP-PT Subjective Patient Comments Patient Comments Janet reports she's doing okay today. It's her R shoulder bothering her, and her back and hip pain is ongoing, currently 5/10 which is good for her compared to where it usually is. PT-OP-D Balance Start: 10/10/24 12:55 Freq: Status: Active Protocol: Document 10/10/24 12:15 DCW (Rec: 10/11/24 11:30 DCW [id number]) OP-PT Balance Assessment Sitting Balance Static Sitting Balance Ability Good Dynamic Sitting Balance Ability Good Standing Balance Static Standing Balance Ability Poor Dynamic Standing Balance Ability Poor Device Used 4WW Balance Tests Dominguez Balance Test Dominguez Balance Test Score 29/56 Dominguez Impairment Rating 40 to 59% Impaired (Score 23- 33) Dominguez Balance Assessment Evaluation Sitting to Standing Ability Several Tries w/Hands Unsupported Stance Several Tries, 30 seconds Sitting Unsupported, Feet on Floor Safely- 2 minutes Standing to Sitting Ability Assist, Control w/Hands Transfer Ability Safely, Hand Use Unsupported Stance- Eyes Closed 3 seconds Unsupported Stance- Eyes Open Assist to attain, 15 secs Reaching Forward Standing Safely, 5 inches Pick- Up Object From Floor Supervision Look Behind Shoulder - Standing Turns Sideways Only Turning 360 Degrees Turns slowly, but safely Unsupported Stance, Alternating Feet on 2 Steps w/Minimum Assist Stair Unsupported Tandem Stance Assist to Step-15 seconds Unilateral Leg Stance Lifts Leg/Unable to Hold Total Score Dominguez Total Score (out of 56 points) 29 Dominguez Impairment Rating 40 to 59% Impaired (Score 23- 33) Delgado Fall Scale Copyright Permission PT-OP-E Functional Tests Start: 10/10/24 12:55 Freq: Status: Active Protocol: Document 10/10/24 12:15 DCW (Rec: 10/11/24 11:30 DCW [id number]) Functional Tests 2 Minute Walk Test Distance 302' Device Used 4WW Comments 2.52 ft/sec Five Times Sit to Stand Test Score 27.76 PT-OP-M Strength Start: 10/10/24 12:55 Freq: Status: Active Protocol: Document 10/10/24 12:15 DCW (Rec: 10/11/24 11:30 DCW [id number]) Hip Strength Hip Manual Muscle Testing Right Flexion (L2) 4 Good Extension (S1) 4+ Good+ Abduction 4- Good- Adduction 4- Good- External Rotation 4 Good Internal Rotation 4 Good Left Flexion (L2) 3+ Fair+ Extension (S1) 4 Good Abduction 3+ Fair+ Adduction 4- Good- External Rotation 4- Good- Internal Rotation 4- Good- Knee Strength Knee Manual Muscle Testing Right Flexion (S2) 4 Good Extension (L3) 4 Good Left Flexion (S2) 4- Good- Extension (L3) 4- Good- Comments Left knee pain with MMT PT-OP-Q Treatments Start: 10/10/24 12:55 Freq: Status: Active Protocol: Document 11/21/24 11:02 [facility] (Rec: 11/21/24 12:30 [facility] [id number]) Cardio Equipment Recumbent Stepper (Sci-Fit) Duration (Minutes) 5 Resistance 3 Seat Position 10 Gym Equipment Shuttle Recovery Heel raises Details 1. Jostin through full range 2. Calf stretch Resistance 50# Shuttle Recovery Platform Stable Reps/Time 1.x15 (occ tactile cues for L knee ext) 2. 60 Unilateral Squats Details cued breathwork Resistance 50# (two teal) Shuttle Recovery Platform Stable Reps/Time 2x15 ea Bilateral Squats Details cued slower pacing and breathwork Resistance 75# (3 navy) Shuttle Recovery Platform Stable Reps/Time 2x15 reps Therapeutic Exercises Sitting Exercises STS Sitting Exercise Name StS, Pt increases WB on RLE. Reps/Minutes x8, UEs on thighs Comments cues for scooting to edge, equal WB, LAQ Sitting Exercise Name LAQ - HEP review Side bilateral Comments LLE initially compensates w/ hip flexion, improves w/ reps Other Exercises Side-stepping Other Exercise Name Side Stepping Resistance Green loop Equipment Used // bars, B hands glide on bars Reps/Minutes 12 ft x1 laps Neuro Re-Education Treatment Balance Activities Foam Details Foam Stance Comments EO/EC control improves w/ cues for gluteal activation PT-OP-T Assessment and Plan Start: 10/10/24 12:55 Freq: Status: Active Protocol: Document 11/21/24 11:02 [facility] (Rec: 11/21/24 12:30 [facility] [id number]) Physical Therapy Assessment Goals Three Impairment Pt able to ambulate 306' with 4WW during 2MWT Group Home Goal (LTG) Pt to demonstrate ability to ambulate >700' using LRAD during a 6MWT to demonstrate improved activity tolerance LTG Duration 01/08/25 Two Impairment Pt presents with a severe increased risk of falls, per Dominguez score (29/56) Group Home Goal (LTG) Pt to demonstrate a decrease in falls risk by improving her score on the Dominguez Balance Scale by at least six points to 35/56 LTG Duration 01/08/25 One Impairment Pt does not have an appropriate home exercise program Short Term Goal (STG) Pt to be independent and compliant with an appropriate HEP 11/21/24: 10/17/24 HEP HO provided again to pt, with edu for no breathholding. STG Duration 11/08/24 Assessment Summary Assessment Treatment focus on LE strengthening w/ TrA and breathwork focus, activity tolerance and balance. Janet requires cues for equal weightbearing with STS due to excessive weightbearing into RLE With LAQ LLE initially compensates w/ hip flexion, improves w/ reps. Low back pain improves w/ cues for TrA activation. She is educated on TrA anatomy and relationship with diaphragm and improves self-awareness of breathholding throughout session. Pt lacks recall w/ 08/29 HEP- HO provided again to pt. Physical Therapy Plan Frequency and Duration Frequency of Treatment 2x/Week Plan of Care Start Date 10/10/24 Plan of Care End Date 01/08/25 Therapeutic Interventions Therapeutic Interventions Balance Training,Canalithic Repositioning,Coordination Training,Gait Training,Home Exercise Program,Joint Mobilizations,Manual Therapy, Neuromuscular Re-education, Patient/Caregiver Education, Self-Care/Home Management,Soft Tissue Mobilization, Therapeutic Activities, Therapeutic Exercises, Vestibular Rehabilitation Next Visit Focus/Plan Next Note Type Treatment Note Next Visit Plan Use mirror for postural correction self assist alignment during REcheck HEP: sit LAQ, ABD TB, TR, STS. POC: LE strengthening, activity tolerance, balance training
--- NOTE | 2024-11-28 13:48 | PT.OTN ---
Current Diagnoses Cerebral infarction, unspecified (11/28/24) Unspecified osteoarthritis, unspecified site (11/28/24) Pain in left knee (11/28/24) Low back pain, unspecified (11/28/24) Unsteadiness on feet (11/28/24) Arthrodesis status (11/28/24) Physical Therapy Treatment Note PT-OP-A Visit Information Start: 10/10/24 12:55 Freq: Status: Active Protocol: Document 11/28/24 12:59 AB (Rec: 11/28/24 13:48 AB [id number]) Out-Patient Physical Therapy Visit Information Visit Information Visit Type Treatment Note Visit Start Time 13:33 Visit Stop Time 13:47 Visit Number 9 Number of ENGINE DESIGNER Visits 2 Evaluation Information Evaluation Date 10/10/24 PT-OP-B Current Condition Start: 10/10/24 12:55 Freq: Status: Active Protocol: Document 10/10/24 12:15 DCW (Rec: 10/11/24 11:30 DCW [id number]) Current Condition History of Current Condition Onset Date Long-standing history Current Complaints Mid back pain, leg pain, declining activity tolerance History of Current Condition Pt is a 79 year old female with a long-standing history of back problems, prior CVA, balance issues, and falls. Pt is well known to this clinic, has been seen off and on multiple times over the last 10 years for various complaints, mainly due to her back. Pt has life-long history of scoliosis, as well as a R TKA ~20 years ago. Notes that she has probably had 29 different surgeries all over my body. Recently has been experiencing increased mid-to- low back pain, as well as pain radiating into her legs. Pt reports fairly significant fatigue with activity, limited gait, and LE weakness. PT-OP-C Subjective Start: 10/10/24 12:55 Freq: Status: Active Protocol: Document 11/28/24 12:59 AB (Rec: 11/28/24 13:48 AB [id number]) OP-PT Subjective Patient Comments Patient Comments Janet reports she hasn't had any falls, but feels unsteary. Patient reports she hasn't been performing the HEP, as she goes so many places she is tired and doesn't do the exercises. SLS L and R LE less than one sec without UE use PT-OP-D Balance Start: 10/10/24 12:55 Freq: Status: Active Protocol: Document 10/10/24 12:15 DCW (Rec: 10/11/24 11:30 DCW [id number]) OP-PT Balance Assessment Sitting Balance Static Sitting Balance Ability Good Dynamic Sitting Balance Ability Good Standing Balance Static Standing Balance Ability Poor Dynamic Standing Balance Ability Poor Device Used 4WW Balance Tests Dominguez Balance Test Dominguez Balance Test Score 29/56 Dominguez Impairment Rating 40 to 59% Impaired (Score 23- 33) Dominguez Balance Assessment Evaluation Sitting to Standing Ability Several Tries w/Hands Unsupported Stance Several Tries, 30 seconds Sitting Unsupported, Feet on Floor Safely- 2 minutes Standing to Sitting Ability Assist, Control w/Hands Transfer Ability Safely, Hand Use Unsupported Stance- Eyes Closed 3 seconds Unsupported Stance- Eyes Open Assist to attain, 15 secs Reaching Forward Standing Safely, 5 inches Pick- Up Object From Floor Supervision Look Behind Shoulder - Standing Turns Sideways Only Turning 360 Degrees Turns slowly, but safely Unsupported Stance, Alternating Feet on 2 Steps w/Minimum Assist Stair Unsupported Tandem Stance Assist to Step-15 seconds Unilateral Leg Stance Lifts Leg/Unable to Hold Total Score Dominguez Total Score (out of 56 points) 29 Dominguez Impairment Rating 40 to 59% Impaired (Score 23- 33) Delgado Fall Scale Copyright Permission PT-OP-E Functional Tests Start: 10/10/24 12:55 Freq: Status: Active Protocol: Document 10/10/24 12:15 DCW (Rec: 10/11/24 11:30 DCW [id number]) Functional Tests 2 Minute Walk Test Distance 302' Device Used 4WW Comments 2.52 ft/sec Five Times Sit to Stand Test Score 27.76 PT-OP-M Strength Start: 10/10/24 12:55 Freq: Status: Active Protocol: Document 10/10/24 12:15 DCW (Rec: 10/11/24 11:30 DCW [id number]) Hip Strength Hip Manual Muscle Testing Right Flexion (L2) 4 Good Extension (S1) 4+ Good+ Abduction 4- Good- Adduction 4- Good- External Rotation 4 Good Internal Rotation 4 Good Left Flexion (L2) 3+ Fair+ Extension (S1) 4 Good Abduction 3+ Fair+ Adduction 4- Good- External Rotation 4- Good- Internal Rotation 4- Good- Knee Strength Knee Manual Muscle Testing Right Flexion (S2) 4 Good Extension (L3) 4 Good Left Flexion (S2) 4- Good- Extension (L3) 4- Good- Comments Left knee pain with MMT PT-OP-Q Treatments Start: 10/10/24 12:55 Freq: Status: Active Protocol: Document 11/28/24 12:59 AB (Rec: 11/28/24 13:48 AB [id number]) Gym Equipment Shuttle Recovery Unilateral Squats Details cued breathwork Resistance 50# (two teal) Shuttle Recovery Platform Stable Reps/Time 2x15 ea Bilateral Squats Details VC to perform slowly Resistance 75# (3 navy) Shuttle Recovery Platform Stable Reps/Time 2x15 reps Therapeutic Exercises Sitting Exercises Hamstring Curls Sitting Exercise Name Hamstring Curls Side bilateral Resistance Lv 3 Reps/Minutes X20 toe raises Sitting Exercise Name added to HEP /c HO Side bilateral Reps/Minutes 2x 10 reps Comments Pt ed rationale of this ex to avoid tripping over feet hip abduction Sitting Exercise Name Hip Abduction Side bilateral Resistance Lv 3 Reps/Minutes (2 X 10 HEP) and one one HEPminute hold STS Reps/Minutes X10 with UE use Comments Verbal cues to avoid hip add LAQ Sitting Exercise Name LAQ - HEP review Side bilateral Reps/Minutes x20 then X 6 with level 3 band at ankles Comments verbal cues to lower slowly Standing Exercises Heel raise Side bilateral Reps/Minutes X 12 Comments Lower heels to floor slowly Calf Stretch Standing Exercise Name Calf Stretch Side bilateral Reps/Minutes 60 sec X 1 Comments verbal and tactile cues PT-OP-T Assessment and Plan Start: 10/10/24 12:55 Freq: Status: Active Protocol: Document 11/28/24 12:59 AB (Rec: 11/28/24 13:48 AB [id number]) Physical Therapy Assessment Goals Three Impairment Pt able to ambulate 306' with 4WW during 2MWT Detention Goal (LTG) Pt to demonstrate ability to ambulate >700' using LRAD during a 6MWT to demonstrate improved activity tolerance LTG Duration 01/08/25 Two Impairment Pt presents with a severe increased risk of falls, per Dominguez score (29/56) Detention Goal (LTG) Pt to demonstrate a decrease in falls risk by improving her score on the Dominguez Balance Scale by at least six points to 35/56 LTG Duration 01/08/25 One Impairment Pt does not have an appropriate home exercise program Short Term Goal (STG) Pt to be independent and compliant with an appropriate HEP 11/21/24: 10/17/24 HEP HO provided again to pt, with edu for no breathholding. STG Duration 11/08/24 Assessment Summary Assessment SLS 1-2 sec L and right LE without UE use post glute med activation and HEP reviewed and new band issued as patient reports needing handouts. Physical Therapy Plan Frequency and Duration Frequency of Treatment 2x/Week Plan of Care Start Date 10/10/24 Plan of Care End Date 01/08/25 Next Visit Focus/Plan Next Note Type Progress Note Next Visit Plan Use mirror for postural correction self assist alignment during REcheck POC: LE strengthening, activity tolerance, balance training
--- NOTE | 2024-12-03 14:48 | PT-OP ANOTE ---
Pt no-showed to appointment today. Therapist phoned her, she was very apologetic, reports she must have missed transferring it to her schedule. Pt reminded of next appointment 12/05/24 at 1300.
--- NOTE | 2024-12-05 15:59 | PT.OTN ---
Current Diagnoses Cerebral infarction, unspecified (12/05/24) Unspecified osteoarthritis, unspecified site (12/05/24) Pain in left knee (12/05/24) Low back pain, unspecified (12/05/24) Unsteadiness on feet (12/05/24) Arthrodesis status (12/05/24) Physical Therapy Treatment Note PT-OP-A Visit Information Start: 10/10/24 12:55 Freq: Status: Active Protocol: Document 12/05/24 13:05 NBM (Rec: 12/05/24 13:54 [facility] [id number]) Out-Patient Physical Therapy Visit Information Visit Information Visit Type Treatment Note Visit Start Time 13:05 Visit Stop Time 13:52 Visit Number 10 Number of SUCTION DRUM DRIER OPERATOR Visits 3 Evaluation Information Evaluation Date 10/10/24 PT-OP-B Current Condition Start: 10/10/24 12:55 Freq: Status: Active Protocol: Document 10/10/24 12:15 DCW (Rec: 10/11/24 11:30 DCW [id number]) Current Condition History of Current Condition Onset Date Long-standing history Current Complaints Mid back pain, leg pain, declining activity tolerance History of Current Condition Pt is a 79 year old female with a long-standing history of back problems, prior CVA, balance issues, and falls. Pt is well known to this clinic, has been seen off and on multiple times over the last 10 years for various complaints, mainly due to her back. Pt has life-long history of scoliosis, as well as a R TKA ~20 years ago. Notes that she has probably had 29 different surgeries all over my body. Recently has been experiencing increased mid-to- low back pain, as well as pain radiating into her legs. Pt reports fairly significant fatigue with activity, limited gait, and LE weakness. PT-OP-C Subjective Start: 10/10/24 12:55 Freq: Status: Active Protocol: Document 12/05/24 13:05 NBM (Rec: 12/05/24 13:54 [facility] [id number]) OP-PT Subjective Patient Comments Patient Comments Janet reports she hasn't had any new or near falls. Her L knee has been bothering her more. She was supposed to have surgery on it last week but she doesn't want to have surgery so she backed off, because she's had so many surgeries and doesn't want to risk any complications. None of the pain is unbearable now, but I don't want to stop Physical Therapy yet. When I first started I couldn't get out of bed, now I can't get into bed because I don't want to stay there. She's been going to sleep at 9 or 10 o clock and sleeping through the night which she hasn't done in years. Patient Reported Progress Improving PT-OP-D Balance Start: 10/10/24 12:55 Freq: Status: Active Protocol: Document 10/10/24 12:15 DCW (Rec: 10/11/24 11:30 DCW [id number]) OP-PT Balance Assessment Sitting Balance Static Sitting Balance Ability Good Dynamic Sitting Balance Ability Good Standing Balance Static Standing Balance Ability Poor Dynamic Standing Balance Ability Poor Device Used 4WW Balance Tests Dominguez Balance Test Dominguez Balance Test Score 29/56 Dominguez Impairment Rating 40 to 59% Impaired (Score 23- 33) Dominguez Balance Assessment Evaluation Sitting to Standing Ability Several Tries w/Hands Unsupported Stance Several Tries, 30 seconds Sitting Unsupported, Feet on Floor Safely- 2 minutes Standing to Sitting Ability Assist, Control w/Hands Transfer Ability Safely, Hand Use Unsupported Stance- Eyes Closed 3 seconds Unsupported Stance- Eyes Open Assist to attain, 15 secs Reaching Forward Standing Safely, 5 inches Pick- Up Object From Floor Supervision Look Behind Shoulder - Standing Turns Sideways Only Turning 360 Degrees Turns slowly, but safely Unsupported Stance, Alternating Feet on 2 Steps w/Minimum Assist Stair Unsupported Tandem Stance Assist to Step-15 seconds Unilateral Leg Stance Lifts Leg/Unable to Hold Total Score Dominguez Total Score (out of 56 points) 29 Dominguez Impairment Rating 40 to 59% Impaired (Score 23- 33) Delgado Fall Scale Copyright Permission PT-OP-E Functional Tests Start: 10/10/24 12:55 Freq: Status: Active Protocol: Document 10/10/24 12:15 DCW (Rec: 10/11/24 11:30 DCW [id number]) Functional Tests 2 Minute Walk Test Distance 302' Device Used 4WW Comments 2.52 ft/sec Five Times Sit to Stand Test Score 27.76 PT-OP-M Strength Start: 10/10/24 12:55 Freq: Status: Active Protocol: Document 10/10/24 12:15 DCW (Rec: 10/11/24 11:30 DCW [id number]) Hip Strength Hip Manual Muscle Testing Right Flexion (L2) 4 Good Extension (S1) 4+ Good+ Abduction 4- Good- Adduction 4- Good- External Rotation 4 Good Internal Rotation 4 Good Left Flexion (L2) 3+ Fair+ Extension (S1) 4 Good Abduction 3+ Fair+ Adduction 4- Good- External Rotation 4- Good- Internal Rotation 4- Good- Knee Strength Knee Manual Muscle Testing Right Flexion (S2) 4 Good Extension (L3) 4 Good Left Flexion (S2) 4- Good- Extension (L3) 4- Good- Comments Left knee pain with MMT PT-OP-Q Treatments Start: 10/10/24 12:55 Freq: Status: Active Protocol: Document 12/05/24 13:05 NBM (Rec: 12/05/24 13:54 NBM [id number]) Cardio Equipment Recumbent Stepper (Sci-Fit) Duration (Minutes) 6 Resistance 3>3.5>4.0 Seat Position 10 Other L knee pain 2/10 Therapeutic Exercises Sitting Exercises Hamstring Curls Sitting Exercise Name Hamstring Curls Side bilateral Resistance Lv 3 Reps/Minutes X20 toe raises Sitting Exercise Name added to HEP /c HO Side bilateral Reps/Minutes 2x 10 reps Comments Pt ed rationale of this ex to avoid tripping over feet hip abduction Sitting Exercise Name Hip Abduction Side bilateral Resistance Lv 3 Reps/Minutes (2 X 10 HEP) and one HEPminute hold STS Sitting Exercise Name StS, Pt demos RLE>LLE WB Equipment Used mirror for posture Reps/Minutes X3 with UE use on thighs Comments Pt challenged w/ ascent when focusing on increasing WB in LLE LAQ Sitting Exercise Name LAQ - HEP review Side bilateral Resistance Lvl 3 Tb at ankles Equipment Used mirror for posture Reps/Minutes 2x6 ea Comments visual target Standing Exercises Heel raise Side bilateral Equipment Used handrail Reps/Minutes X 12 Comments Lower heels to floor slowly Calf Stretch Standing Exercise Name Calf Stretch Side bilateral Equipment Used handrail Reps/Minutes 60 sec X 1 ea Comments verbal and tactile cues for form. Gentle STM to B calves w / consent. PT-OP-T Assessment and Plan Start: 10/10/24 12:55 Freq: Status: Active Protocol: Document 12/05/24 13:05 NBM (Rec: 12/05/24 13:54 [facility] [id number]) Physical Therapy Assessment Goals Three Impairment Pt able to ambulate 306' with 4WW during 2MWT Shelter Goal (LTG) Pt to demonstrate ability to ambulate >700' using LRAD during a 6MWT to demonstrate improved activity tolerance LTG Duration 01/08/25 Two Impairment Pt presents with a severe increased risk of falls, per Dominguez score (29/56) Shelter Goal (LTG) Pt to demonstrate a decrease in falls risk by improving her score on the Dominguez Balance Scale by at least six points to 35/56 LTG Duration 01/08/25 One Impairment Pt does not have an appropriate home exercise program Short Term Goal (STG) Pt to be independent and compliant with an appropriate HEP 11/21/24: 10/17/24 HEP HO provided again to pt, with edu for no breathholding. 12/05/24: Full HEP copied to 1 page handout front/back and provided to pt w/ emphasis for STS w/ focus on increasing weightbearing into LLE, and for toe raises to reduce risk of tripping. STG Duration 11/08/24 Assessment Summary Assessment Treatment emphasis on increasing weightbearing into LLE, upright posture, and LE strengthening and stretching. Janet is especially challenged with sit to stand when focused on equal weightbearing with ascent in mirror. She demos improved SLS 7-8 sec L and 4 sec R without UE use and CGA for increased pt confidence, cues for gluteal activation. LAQ knee extension range improves with visual target. Full HEP copied to 1 page handout front/back and provided to pt w/ emphasis for STS w/ focus on increasing weightbearing into LLE, and for toe raises to reduce risk of tripping. Recumbent stepper resistance and time are increased from 3.0 to 4.0 and from 5 min to 6 min. Physical Therapy Plan Frequency and Duration Frequency of Treatment 2x/Week Plan of Care Start Date 10/10/24 Plan of Care End Date 01/08/25 Therapeutic Interventions Therapeutic Interventions Balance Training,Canalithic Repositioning,Coordination Training,Gait Training,Home Exercise Program,Joint Mobilizations,Manual Therapy, Neuromuscular Re-education, Patient/Caregiver Education, Self-Care/Home Management,Soft Tissue Mobilization, Therapeutic Activities, Therapeutic Exercises, Vestibular Rehabilitation Next Visit Focus/Plan Next Note Type Progress Note Next Visit Plan Progress stepper resistance to 3.5 or 4.0. Use mirror for postural correction self assist alignment during REcheck POC: LE strengthening, activity tolerance, balance training
--- NOTE | 2024-12-10 15:31 | PT.OTN ---
Current Diagnoses Cerebral infarction, unspecified (12/10/24) Unspecified osteoarthritis, unspecified site (12/10/24) Pain in left knee (12/10/24) Low back pain, unspecified (12/10/24) Unsteadiness on feet (12/10/24) Arthrodesis status (12/10/24) Physical Therapy Treatment Note PT-OP-A Visit Information Start: 10/10/24 12:55 Freq: Status: Active Protocol: Document 12/10/24 14:29 KW (Rec: 12/10/24 15:29 KW Laptop) Out-Patient Physical Therapy Visit Information Visit Information Visit Type Treatment Note Visit Start Time 13:45 Visit Stop Time 14:30 Visit Number 11 Number of LEAD SEWAGE PLANT OPERATOR Visits 0 Precautions Precautions monitor BP pre-ex, during ex, post ex PT-OP-B Current Condition Start: 10/10/24 12:55 Freq: Status: Active Protocol: Document 10/10/24 12:15 DCW (Rec: 10/11/24 11:30 DCW [id number]) Current Condition History of Current Condition Onset Date Long-standing history Current Complaints Mid back pain, leg pain, declining activity tolerance History of Current Condition Pt is a 79 year old female with a long-standing history of back problems, prior CVA, balance issues, and falls. Pt is well known to this clinic, has been seen off and on multiple times over the last 10 years for various complaints, mainly due to her back. Pt has life-long history of scoliosis, as well as a R TKA ~20 years ago. Notes that she has probably had 29 different surgeries all over my body. Recently has been experiencing increased mid-to- low back pain, as well as pain radiating into her legs. Pt reports fairly significant fatigue with activity, limited gait, and LE weakness. PT-OP-C Subjective Start: 10/10/24 12:55 Freq: Status: Active Protocol: Document 12/10/24 15:30 KW (Rec: 12/10/24 15:30 KW Laptop) OP-PT Subjective Patient Comments Patient Comments per caregiver Selin Janet takes BP meds in am and that anything below 180 is a good BP for Janet PT-OP-D Balance Start: 10/10/24 12:55 Freq: Status: Active Protocol: Document 10/10/24 12:15 DCW (Rec: 10/11/24 11:30 DCW [id number]) OP-PT Balance Assessment Sitting Balance Static Sitting Balance Ability Good Dynamic Sitting Balance Ability Good Standing Balance Static Standing Balance Ability Poor Dynamic Standing Balance Ability Poor Device Used 4WW Balance Tests Dominguez Balance Test Dominguez Balance Test Score 29/56 Dominguez Impairment Rating 40 to 59% Impaired (Score 23- 33) Dominguez Balance Assessment Evaluation Sitting to Standing Ability Several Tries w/Hands Unsupported Stance Several Tries, 30 seconds Sitting Unsupported, Feet on Floor Safely- 2 minutes Standing to Sitting Ability Assist, Control w/Hands Transfer Ability Safely, Hand Use Unsupported Stance- Eyes Closed 3 seconds Unsupported Stance- Eyes Open Assist to attain, 15 secs Reaching Forward Standing Safely, 5 inches Pick- Up Object From Floor Supervision Look Behind Shoulder - Standing Turns Sideways Only Turning 360 Degrees Turns slowly, but safely Unsupported Stance, Alternating Feet on 2 Steps w/Minimum Assist Stair Unsupported Tandem Stance Assist to Step-15 seconds Unilateral Leg Stance Lifts Leg/Unable to Hold Total Score Dominugez Total Score (out of 56 points) 29 Dominguez Impairment Rating 40 to 59% Impaired (Score 23- 33) Delgado Fall Scale Copyright Permission PT-OP-E Functional Tests Start: 10/10/24 12:55 Freq: Status: Active Protocol: Document 10/10/24 12:15 DCW (Rec: 10/11/24 11:30 MSW [id number]) Functional Tests 2 Minute Walk Test Distance 302' Device Used 4WW Comments 2.52 ft/sec Five Times Sit to Stand Test Score 27.76 PT-OP-M Strength Start: 10/10/24 12:55 Freq: Status: Active Protocol: Document 10/10/24 12:15 DCW (Rec: 10/11/24 11:30 DCW [id number]) Hip Strength Hip Manual Muscle Testing Right Flexion (L2) 4 Good Extension (S1) 4+ Good+ Abduction 4- Good- Adduction 4- Good- External Rotation 4 Good Internal Rotation 4 Good Left Flexion (L2) 3+ Fair+ Extension (S1) 4 Good Abduction 3+ Fair+ Adduction 4- Good- External Rotation 4- Good- Internal Rotation 4- Good- Knee Strength Knee Manual Muscle Testing Right Flexion (S2) 4 Good Extension (L3) 4 Good Left Flexion (S2) 4- Good- Extension (L3) 4- Good- Comments Left knee pain with MMT PT-OP-Q Treatments Start: 10/10/24 12:55 Freq: Status: Active Protocol: Document 12/10/24 14:29 KW (Rec: 12/10/24 15:29 KW Laptop) Cardio Equipment Recumbent Stepper (Sci-Fit) Duration (Minutes) 6 Resistance 3>3.5>4.0 Seat Position 10 Other L knee pain 1/10 Therapeutic Exercises Sitting Exercises Hamstring Curls Sitting Exercise Name Hamstring Curls Side bilateral Resistance Lv 3 Reps/Minutes X20 toe raises Side bilateral Reps/Minutes 2x 10 reps Comments Pt ed rationale of this ex to avoid tripping over feet hip abduction Sitting Exercise Name Hip Abduction Side bilateral Resistance Lv 3 Reps/Minutes (2 X 10 HEP) and one HEPminute hold STS Sitting Exercise Name StS, Pt demos RLE>LLE WB Equipment Used mirror for posture Reps/Minutes X3 with UE use on thighs Comments Pt challenged w/ ascent when focusing on increasing WB in LLE Standing Exercises Heel raise Side bilateral Equipment Used handrail Reps/Minutes X 12 Comments Lower heels to floor slowly Calf Stretch Standing Exercise Name Calf Stretch Side bilateral Equipment Used handrail Reps/Minutes 60 sec X 1 ea Comments verbal and tactile cues for form. Gentle STM to B calves w / consent. Gait Training Gait Activity posture, techique Comments cues to relax shoulders, pursed lip breathing PT-OP-T Assessment and Plan Start: 10/10/24 12:55 Freq: Status: Active Protocol: Document 12/10/24 14:29 KW (Rec: 12/10/24 15:29 KW Laptop) Physical Therapy Assessment Goals Three Impairment Pt able to ambulate 306' with 4WW during 2MWT Jail Goal (LTG) Pt to demonstrate ability to ambulate >700' using LRAD during a 6MWT to demonstrate improved activity tolerance LTG Duration 01/08/25 Two Impairment Pt presents with a severe increased risk of falls, per Dominguez score () Jail Goal (LTG) Pt to demonstrate a decrease in falls risk by improving her score on the Dominguez Balance Scale by at least six points to 35/56 LTG Duration 01/08/25 One Impairment Pt does not have an appropriate home exercise program Short Term Goal (STG) Pt to be independent and compliant with an appropriate HEP 11/21/24: 10/17/24 HEP HO provided again to pt, with edu for no breathholding. 12/05/24: Full HEP copied to 1 page handout front/back and provided to pt w/ emphasis for STS w/ focus on increasing weightbearing into LLE, and for toe raises to reduce risk of tripping. STG Duration 11/08/24 Assessment Summary Assessment BP was concerning today, getting up to 187/97 with nu- step. caregiver confirmed that Janet had her BP meds today and that anything below 180 is good for Janet. Asked Caregiver Selin to log BP for MD visit coming up. Physical Therapy Plan Frequency and Duration Frequency of Treatment 2x/Week Plan of Care Start Date 10/10/24 Plan of Care End Date 01/08/25 Therapeutic Interventions Therapeutic Interventions Balance Training,Canalithic Repositioning,Coordination Training,Gait Training,Home Exercise Program,Joint Mobilizations,Manual Therapy, Neuromuscular Re-education, Patient/Caregiver Education, Self-Care/Home Management,Soft Tissue Mobilization, Therapeutic Activities, Therapeutic Exercises, Vestibular Rehabilitation
--- NOTE | 2024-12-12 14:25 | PT.OTN ---
Current Diagnoses Cerebral infarction, unspecified (12/12/24) Unspecified osteoarthritis, unspecified site (12/12/24) Pain in left knee (12/12/24) Low back pain, unspecified (12/12/24) Unsteadiness on feet (12/12/24) Arthrodesis status (12/12/24) Physical Therapy Treatment Note PT-OP-A Visit Information Start: 10/10/24 12:55 Freq: Status: Active Protocol: Document 12/12/24 13:45 DCW (Rec: 12/12/24 14:25 DCW [id number]) Out-Patient Physical Therapy Visit Information Visit Information Visit Type Treatment Note Visit Start Time 13:45 Visit Stop Time 14:30 Visit Number 12 Number of BIOMETRICS CONSULTANT Visits 0 Precautions Precautions monitor BP pre-ex, during ex, post ex PT-OP-B Current Condition Start: 10/10/24 12:55 Freq: Status: Active Protocol: Document 10/10/24 12:15 DCW (Rec: 10/11/24 11:30 DCW [id number]) Current Condition History of Current Condition Onset Date Long-standing history Current Complaints Mid back pain, leg pain, declining activity tolerance History of Current Condition Pt is a 79 year old female with a long-standing history of back problems, prior CVA, balance issues, and falls. Pt is well known to this clinic, has been seen off and on multiple times over the last 10 years for various complaints, mainly due to her back. Pt has life-long history of scoliosis, as well as a R TKA ~20 years ago. Notes that she has probably had 29 different surgeries all over my body. Recently has been experiencing increased mid-to- low back pain, as well as pain radiating into her legs. Pt reports fairly significant fatigue with activity, limited gait, and LE weakness. PT-OP-C Subjective Start: 10/10/24 12:55 Freq: Status: Active Protocol: Document 12/12/24 13:45 DCW (Rec: 12/12/24 14:25 DCW [id number]) OP-PT Subjective Patient Comments Patient Comments Pt notes her BP was really high yesterday, thinks her systolic was around 220. Measured today at 159/86 at the beginning of her session. PT-OP-D Balance Start: 10/10/24 12:55 Freq: Status: Active Protocol: Document 10/10/24 12:15 DCW (Rec: 10/11/24 11:30 DCW [id number]) OP-PT Balance Assessment Sitting Balance Static Sitting Balance Ability Good Dynamic Sitting Balance Ability Good Standing Balance Static Standing Balance Ability Poor Dynamic Standing Balance Ability Poor Device Used 4WW Balance Tests Dominguez Balance Test Dominguez Balance Test Score 29/56 Dominguez Impairment Rating 40 to 59% Impaired (Score 23- 33) Dominguez Balance Assessment Evaluation Sitting to Standing Ability Several Tries w/Hands Unsupported Stance Several Tries, 30 seconds Sitting Unsupported, Feet on Floor Safely- 2 minutes Standing to Sitting Ability Assist, Control w/Hands Transfer Ability Safely, Hand Use Unsupported Stance- Eyes Closed 3 seconds Unsupported Stance- Eyes Open Assist to attain, 15 secs Reaching Forward Standing Safely, 5 inches Pick- Up Object From Floor Supervision Look Behind Shoulder - Standing Turns Sideways Only Turning 360 Degrees Turns slowly, but safely Unsupported Stance, Alternating Feet on 2 Steps w/Minimum Assist Stair Unsupported Tandem Stance Assist to Step-15 seconds Unilateral Leg Stance Lifts Leg/Unable to Hold Total Score Dominguez Total Score (out of 56 points) 29 Dominguez Impairment Rating 40 to 59% Impaired (Score 23- 33) Delgado Fall Scale Copyright Permission PT-OP-E Functional Tests Start: 10/10/24 12:55 Freq: Status: Active Protocol: Document 10/10/24 12:15 DCW (Rec: 10/11/24 11:30 DCW [id number]) Functional Tests 2 Minute Walk Test Distance 302' Device Used 4WW Comments 2.52 ft/sec Five Times Sit to Stand Test Score 27.76 PT-OP-M Strength Start: 10/10/24 12:55 Freq: Status: Active Protocol: Document 10/10/24 12:15 DCW (Rec: 10/11/24 11:30 DCW [id number]) Hip Strength Hip Manual Muscle Testing Right Flexion (L2) 4 Good Extension (S1) 4+ Good+ Abduction 4- Good- Adduction 4- Good- External Rotation 4 Good Internal Rotation 4 Good Left Flexion (L2) 3+ Fair+ Extension (S1) 4 Good Abduction 3+ Fair+ Adduction 4- Good- External Rotation 4- Good- Internal Rotation 4- Good- Knee Strength Knee Manual Muscle Testing Right Flexion (S2) 4 Good Extension (L3) 4 Good Left Flexion (S2) 4- Good- Extension (L3) 4- Good- Comments Left knee pain with MMT PT-OP-Q Treatments Start: 10/10/24 12:55 Freq: Status: Active Protocol: Document 12/12/24 13:45 DCW (Rec: 12/12/24 14:25 DCW [id number]) Cardio Equipment Recumbent Stepper (Sci-Fit) Duration (Minutes) 6 Resistance 3 Seat Position 9 Other BP after 159/74 Gym Equipment Cable Column (Body Solid) Hip Adduction Resistance 60# Hip Abduction Resistance 30# Shuttle Recovery Unilateral Squats Details VCs to perform slowly Resistance 50# (two teal) Shuttle Recovery Platform Stable Reps/Time 2x15 Bilateral Squats Details VC to perform slowly Resistance 75# (3 navy) Shuttle Recovery Platform Stable Reps/Time 2x15 Neuro Re-Education Treatment Balance Activities Balloon Volley Details Balloon Volley Surface AirEx Tandem Details Tandem Ambulation Equipment // bars, UE support Foam Details Foam Stance Surface AirEx Comments EO/EC PT-OP-T Assessment and Plan Start: 10/10/24 12:55 Freq: Status: Active Protocol: Document 12/12/24 13:45 DCW (Rec: 12/12/24 14:25 DCW [id number]) Physical Therapy Assessment Goals Three Impairment Pt able to ambulate 306' with 4WW during 2MWT Senior Living Goal (LTG) Pt to demonstrate ability to ambulate >700' using LRAD during a 6MWT to demonstrate improved activity tolerance 12/12/24: 2MWT /c 3WW: 332' LTG Duration 01/08/25 Two Impairment Pt presents with a severe increased risk of falls, per Dominguez score (29/56) Foot Setter Goal (LTG) Pt to demonstrate a decrease in falls risk by improving her score on the Dominguez Balance Scale by at least six points to 35/56 LTG Duration 01/08/25 One Impairment Pt does not have an appropriate home exercise program Short Term Goal (STG) Pt to be independent and compliant with an appropriate HEP 11/21/24: 10/17/24 HEP HO provided again to pt, with edu for no breathholding. 12/05/24: Full HEP copied to 1 page handout front/back and provided to pt w/ emphasis for STS w/ focus on increasing weightbearing into LLE, and for toe raises to reduce risk of tripping. STG Duration 01/08/25 Assessment Summary Assessment Pt BP maintained fairly consistent today, systolic < 160 with all measurements. Spoke with pt today about necessity of increasing activity at home, pt notes she will speak to her caregiver about getting up and walking more. Overall, pt making some improvements with balance and activity tolerance. Physical Therapy Plan Frequency and Duration Frequency of Treatment 2x/Week Plan of Care Start Date 10/10/24 Plan of Care End Date 01/08/25 Therapeutic Interventions Therapeutic Interventions Balance Training,Canalithic Repositioning,Coordination Training,Gait Training,Home Exercise Program,Joint Mobilizations,Manual Therapy, Neuromuscular Re-education, Patient/Caregiver Education, Self-Care/Home Management,Soft Tissue Mobilization, Therapeutic Activities, Therapeutic Exercises, Vestibular Rehabilitation Next Visit Focus/Plan Next Note Type Treatment Note Next Visit Plan Progress stepper resistance to 3.5 or 4.0. Use mirror for postural correction self assist alignment during REcheck POC: LE strengthening, activity tolerance, balance training
--- NOTE | 2024-12-17 12:53 | PT-OP ANOTE ---
Pt cancelled today's early afternoon, reported to schedulers cancelled today's appt already but also unsure with memory issues.
--- NOTE | 2024-12-20 14:27 | PT.OTN ---
Current Diagnoses Cerebral infarction, unspecified (12/20/24) Unspecified osteoarthritis, unspecified site (12/20/24) Pain in left knee (12/20/24) Low back pain, unspecified (12/20/24) Unsteadiness on feet (12/20/24) Arthrodesis status (12/20/24) Physical Therapy Treatment Note PT-OP-A Visit Information Start: 10/10/24 12:55 Freq: Status: Active Protocol: Document 12/20/24 13:45 DCW (Rec: 12/20/24 14:27 DCW [id number]) Out-Patient Physical Therapy Visit Information Visit Information Visit Type Treatment Note Visit Start Time 13:45 Visit Stop Time 14:30 Visit Number 13 Number of [employer] OPERATOR Visits 0 Precautions Precautions monitor BP pre-ex, during ex, post ex PT-OP-B Current Condition Start: 10/10/24 12:55 Freq: Status: Active Protocol: Document 10/10/24 12:15 DCW (Rec: 10/11/24 11:30 DCW [id number]) Current Condition History of Current Condition Onset Date Long-standing history Current Complaints Mid back pain, leg pain, declining activity tolerance History of Current Condition Pt is a 79 year old female with a long-standing history of back problems, prior CVA, balance issues, and falls. Pt is well known to this clinic, has been seen off and on multiple times over the last 10 years for various complaints, mainly due to her back. Pt has life-long history of scoliosis, as well as a R TKA ~20 years ago. Notes that she has probably had 29 different surgeries all over my body. Recently has been experiencing increased mid-to- low back pain, as well as pain radiating into her legs. Pt reports fairly significant fatigue with activity, limited gait, and LE weakness. PT-OP-C Subjective Start: 10/10/24 12:55 Freq: Status: Active Protocol: Document 12/20/24 13:45 DCW (Rec: 12/20/24 14:27 DCW [id number]) OP-PT Subjective Patient Comments Patient Comments Pt reports she feels good today, happy with overall progress. BP measured today at the start of the session, 145 /73. PT-OP-D Balance Start: 10/10/24 12:55 Freq: Status: Active Protocol: Document 10/10/24 12:15 DCW (Rec: 10/11/24 11:30 DCW [id number]) OP-PT Balance Assessment Sitting Balance Static Sitting Balance Ability Good Dynamic Sitting Balance Ability Good Standing Balance Static Standing Balance Ability Poor Dynamic Standing Balance Ability Poor Device Used 4WW Balance Tests Dominguez Balance Test Dominguez Balance Test Score 29/56 Dominguez Impairment Rating 40 to 59% Impaired (Score 23- 33) Dominguez Balance Assessment Evaluation Sitting to Standing Ability Several Tries w/Hands Unsupported Stance Several Tries, 30 seconds Sitting Unsupported, Feet on Floor Safely- 2 minutes Standing to Sitting Ability Assist, Control w/Hands Transfer Ability Safely, Hand Use Unsupported Stance- Eyes Closed 3 seconds Unsupported Stance- Eyes Open Assist to attain, 15 secs Reaching Forward Standing Safely, 5 inches Pick- Up Object From Floor Supervision Look Behind Shoulder - Standing Turns Sideways Only Turning 360 Degrees Turns slowly, but safely Unsupported Stance, Alternating Feet on 2 Steps w/Minimum Assist Stair Unsupported Tandem Stance Assist to Step-15 seconds Unilateral Leg Stance Lifts Leg/Unable to Hold Total Score Dominguez Total Score (out of 56 points) 29 Dominguez Impairment Rating 40 to 59% Impaired (Score 23- 33) Delgado Fall Scale Copyright Permission PT-OP-E Functional Tests Start: 10/10/24 12:55 Freq: Status: Active Protocol: Document 10/10/24 12:15 DCW (Rec: 10/11/24 11:30 DCW [id number]) Functional Tests 2 Minute Walk Test Distance 302' Device Used 4WW Comments 2.52 ft/sec Five Times Sit to Stand Test Score 27.76 PT-OP-M Strength Start: 10/10/24 12:55 Freq: Status: Active Protocol: Document 10/10/24 12:15 DCW (Rec: 10/11/24 11:30 DCW [id number]) Hip Strength Hip Manual Muscle Testing Right Flexion (L2) 4 Good Extension (S1) 4+ Good+ Abduction 4- Good- Adduction 4- Good- External Rotation 4 Good Internal Rotation 4 Good Left Flexion (L2) 3+ Fair+ Extension (S1) 4 Good Abduction 3+ Fair+ Adduction 4- Good- External Rotation 4- Good- Internal Rotation 4- Good- Knee Strength Knee Manual Muscle Testing Right Flexion (S2) 4 Good Extension (L3) 4 Good Left Flexion (S2) 4- Good- Extension (L3) 4- Good- Comments Left knee pain with MMT PT-OP-Q Treatments Start: 10/10/24 12:55 Freq: Status: Active Protocol: Document 12/20/24 13:45 DCW (Rec: 12/20/24 14:27 DCW [id number]) Cardio Equipment Recumbent Stepper (Sci-Fit) Duration (Minutes) 6 Resistance 3 Seat Position 9 Gym Equipment Shuttle Recovery Unilateral Squats Details VCs to perform slowly Resistance 50# (two teal) Shuttle Recovery Platform Stable Reps/Time 2x15 Bilateral Squats Details VC to perform slowly Resistance 75# (3 navy) Shuttle Recovery Platform Stable Reps/Time 2x15 Neuro Re-Education Treatment Balance Activities Hurdles Details Hurdles Equipment // bars Comments Forward, Lateral Balloon Volley Details Balloon Volley Surface AirEx Tandem Details Tandem Ambulation Equipment // bars, UE support Foam Details Foam Stance Surface AirEx Comments EO/EC PT-OP-T Assessment and Plan Start: 10/10/24 12:55 Freq: Status: Active Protocol: Document 12/20/24 13:45 DCW (Rec: 12/20/24 14:27 DCW [id number]) Physical Therapy Assessment Impairments Impairments Activity Tolerance,Balance, Functional Activities, Functional Mobility,Gait,Pain, Posture,Strength,Tone, Transfers Goals Three Impairment Pt able to ambulate 306' with 4WW during 2MWT Industrial Coffee Grinder Goal (LTG) Pt to demonstrate ability to ambulate >700' using LRAD during a 6MWT to demonstrate improved activity tolerance 12/12/24: 2MWT /c 3WW: 332' LTG Duration 01/08/25 Two Impairment Pt presents with a severe increased risk of falls, per Dominguez score (29/56) Industrial Coffee Grinder Goal (LTG) Pt to demonstrate a decrease in falls risk by improving her score on the Dominguez Balance Scale by at least six points to 35/56 LTG Duration 01/08/25 One Impairment Pt does not have an appropriate home exercise program Short Term Goal (STG) Pt to be independent and compliant with an appropriate HEP 11/21/24: 10/17/24 HEP HO provided again to pt, with edu for no breathholding. 12/05/24: Full HEP copied to 1 page handout front/back and provided to pt w/ emphasis for STS w/ focus on increasing weightbearing into LLE, and for toe raises to reduce risk of tripping. STG Duration 01/08/25 Assessment Summary Assessment BP throughout session remained ~148/78. Pt displays improved activity tolerance, requiring fewer rest breaks. Performing much better on the hurdles. Pt very happy with her performance today, feeling like she has made some improvement. Physical Therapy Plan Frequency and Duration Frequency of Treatment 2x/Week Plan of Care Start Date 10/10/24 Plan of Care End Date 01/08/25 Therapeutic Interventions Therapeutic Interventions Balance Training,Canalithic Repositioning,Coordination Training,Gait Training,Home Exercise Program,Joint Mobilizations,Manual Therapy, Neuromuscular Re-education, Patient/Caregiver Education, Self-Care/Home Management,Soft Tissue Mobilization, Therapeutic Activities, Therapeutic Exercises, Vestibular Rehabilitation Next Visit Focus/Plan Next Note Type Treatment Note Next Visit Plan Use mirror for postural correction self assist alignment during REcheck POC: LE strengthening, activity tolerance, balance training
--- NOTE | 2024-12-25 13:46 | PT.OTN ---
Current Diagnoses Cerebral infarction, unspecified (12/25/24) Unspecified osteoarthritis, unspecified site (12/25/24) Pain in left knee (12/25/24) Low back pain, unspecified (12/25/24) Unsteadiness on feet (12/25/24) Arthrodesis status (12/25/24) Physical Therapy Treatment Note PT-OP-A Visit Information Start: 10/10/24 12:55 Freq: Status: Active Protocol: Document 12/25/24 13:08 PG (Rec: 12/25/24 14:33 PG Laptop) Out-Patient Physical Therapy Visit Information Visit Information Visit Type Treatment Note Visit Note Clare MONTELONGO provided instruction with direct supervision of Guillermina CIFUENTES and permission from pt. Pt did spend part of tx time with schedulers. Visit Start Time 13:08 Visit Stop Time 13:46 Visit Number 14 Number of BLOOD BANK TECHNICIAN Visits 1 Precautions Precautions monitor BP pre-ex, during ex, post ex PT-OP-B Current Condition Start: 10/10/24 12:55 Freq: Status: Active Protocol: Document 10/10/24 12:15 DCW (Rec: 10/11/24 11:30 DCW [id number]) Current Condition History of Current Condition Onset Date Long-standing history Current Complaints Mid back pain, leg pain, declining activity tolerance History of Current Condition Pt is a 79 year old female with a long-standing history of back problems, prior CVA, balance issues, and falls. Pt is well known to this clinic, has been seen off and on multiple times over the last 10 years for various complaints, mainly due to her back. Pt has life-long history of scoliosis, as well as a R TKA ~20 years ago. Notes that she has probably had 29 different surgeries all over my body. Recently has been experiencing increased mid-to- low back pain, as well as pain radiating into her legs. Pt reports fairly significant fatigue with activity, limited gait, and LE weakness. PT-OP-C Subjective Start: 10/10/24 12:55 Freq: Status: Active Protocol: Document 12/25/24 13:08 PG (Rec: 12/25/24 14:33 PG Laptop) OP-PT Subjective Patient Comments Patient Comments Pt reports she feels good today. BP measured at the start of session, 159/80. Janet believes anything above 150 is too high. PT-OP-D Balance Start: 10/10/24 12:55 Freq: Status: Active Protocol: Document 10/10/24 12:15 DCW (Rec: 10/11/24 11:30 DCW [id number]) OP-PT Balance Assessment Sitting Balance Static Sitting Balance Ability Good Dynamic Sitting Balance Ability Good Standing Balance Static Standing Balance Ability Poor Dynamic Standing Balance Ability Poor Device Used 4WW Balance Tests Dominguez Balance Test Dominguez Balance Test Score 29/56 Dominguez Impairment Rating 40 to 59% Impaired (Score 23- 33) Dominguez Balance Assessment Evaluation Sitting to Standing Ability Several Tries w/Hands Unsupported Stance Several Tries, 30 seconds Sitting Unsupported, Feet on Floor Safely- 2 minutes Standing to Sitting Ability Assist, Control w/Hands Transfer Ability Safely, Hand Use Unsupported Stance- Eyes Closed 3 seconds Unsupported Stance- Eyes Open Assist to attain, 15 secs Reaching Forward Standing Safely, 5 inches Pick- Up Object From Floor Supervision Look Behind Shoulder - Standing Turns Sideways Only Turning 360 Degrees Turns slowly, but safely Unsupported Stance, Alternating Feet on 2 Steps w/Minimum Assist Stair Unsupported Tandem Stance Assist to Step-15 seconds Unilateral Leg Stance Lifts Leg/Unable to Hold Total Score Dominguez Total Score (out of 56 points) 29 Dominguez Impairment Rating 40 to 59% Impaired (Score 23- 33) Delgado Fall Scale Copyright Permission PT-OP-E Functional Tests Start: 10/10/24 12:55 Freq: Status: Active Protocol: Document 10/10/24 12:15 DCW (Rec: 10/11/24 11:30 DCW [id number]) Functional Tests 2 Minute Walk Test Distance 302' Device Used 4WW Comments 2.52 ft/sec Five Times Sit to Stand Test Score 27.76 PT-OP-M Strength Start: 10/10/24 12:55 Freq: Status: Active Protocol: Document 10/10/24 12:15 DCW (Rec: 10/11/24 11:30 DCW [id number]) Hip Strength Hip Manual Muscle Testing Right Flexion (L2) 4 Good Extension (S1) 4+ Good+ Abduction 4- Good- Adduction 4- Good- External Rotation 4 Good Internal Rotation 4 Good Left Flexion (L2) 3+ Fair+ Extension (S1) 4 Good Abduction 3+ Fair+ Adduction 4- Good- External Rotation 4- Good- Internal Rotation 4- Good- Knee Strength Knee Manual Muscle Testing Right Flexion (S2) 4 Good Extension (L3) 4 Good Left Flexion (S2) 4- Good- Extension (L3) 4- Good- Comments Left knee pain with MMT PT-OP-Q Treatments Start: 10/10/24 12:55 Freq: Status: Active Protocol: Document 12/25/24 13:08 PG (Rec: 12/25/24 14:33 PG Laptop) Cardio Equipment Recumbent Stepper (Sci-Fit) Duration (Minutes) 6 Resistance 3.5 > 3.7 Seat Position 9 Other BUE/BLEs, BP after 160/70 post Gym Equipment Shuttle Recovery Bilateral Squats Details VC to perform slowly Resistance 75# 3 navy> 2 navy + 1 teal Shuttle Recovery Platform Stable Reps/Time 2 x 15, stationary sitting due to dizziness initial (normal her pos change) Therapeutic Exercises Other Exercises Pursed breathing Other Exercise Name BP after pursed breathin /80 Resistance sitting Comments VC's to breathe through nose/ out mouth slowly with pursed lips Neuro Re-Education Treatment Other Activities Mirror self alignment check Details Correcting posture and alignment in mirror while standing Reps/Duration several reps, hold for 5 seconds Comments Verbal and tactile cues used to help pt elevate ribcage and shift upper body to the left while shifting pelvis to the right to find midline. Provided illustration with cues for carry over at home. Self-Care/Home Management Treatment Activities Self-Care/Home Management Activities Spoke about and practiced pursed breathing during tx today to encourage slow breathing and help improve activity tolerance, breath control, energy conservation. Verbal and visual cues to breath slowly through the nose and out the mouth with pursed lips, small mouth opening for carry over at home. PT-OP-T Assessment and Plan Start: 10/10/24 12:55 Freq: Status: Active Protocol: Document 12/25/24 13:08 PG (Rec: 12/25/24 14:33 PG Laptop) Physical Therapy Assessment Impairments Impairments Activity Tolerance,Balance, Functional Activities, Functional Mobility,Gait,Pain, Posture,Strength,Tone, Transfers Goals Three Impairment Pt able to ambulate 306' with 4WW during 2MWT Fdc Goal (LTG) Pt to demonstrate ability to ambulate >700' using LRAD during a 6MWT to demonstrate improved activity tolerance 12/12/24: 2MWT /c 3WW: 332' LTG Duration 01/08/25 Two Impairment Pt presents with a severe increased risk of falls, per Dominguez score (29/56) Fdc Goal (LTG) Pt to demonstrate a decrease in falls risk by improving her score on the Dominguez Balance Scale by at least six points to 35/56 LTG Duration 01/08/25 One Impairment Pt does not have an appropriate home exercise program Short Term Goal (STG) Pt to be independent and compliant with an appropriate HEP 11/21/24: 10/17/24 HEP HO provided again to pt, with edu for no breathholding. 12/05/24: Full HEP copied to 1 page handout front/back and provided to pt w/ emphasis for STS w/ focus on increasing weightbearing into LLE, and for toe raises to reduce risk of tripping. STG Duration 01/08/25 Assessment Summary Assessment Pt's BP decreased WNL after pursed breathing exercises. Encouraged her to utilize breathing technique during activities to help with activity tolerance. Pt was able to get visual and tactile feedback from mirror posture/ alignment self checks for spinal alignment for decrease back pain to carry over with community ambulation. Provided illustration with cues to self check at home. Physical Therapy Plan Frequency and Duration Frequency of Treatment 2x/Week Plan of Care Start Date 10/10/24 Plan of Care End Date 01/08/25 Therapeutic Interventions Therapeutic Interventions Balance Training,Canalithic Repositioning,Coordination Training,Gait Training,Home Exercise Program,Joint Mobilizations,Manual Therapy, Neuromuscular Re-education, Patient/Caregiver Education, Self-Care/Home Management,Soft Tissue Mobilization, Therapeutic Activities, Therapeutic Exercises, Vestibular Rehabilitation Next Visit Focus/Plan Next Note Type Treatment Note Next Visit Plan REcheck: Using mirror for postural correction self assist alignment. Next tx, 2 minute walk test? POC: LE strengthening, activity tolerance, balance training
--- NOTE | 2024-12-28 13:03 | PT.OTN ---
Current Diagnoses Cerebral infarction, unspecified (12/28/24) Unspecified osteoarthritis, unspecified site (12/28/24) Pain in left knee (12/28/24) Low back pain, unspecified (12/28/24) Unsteadiness on feet (12/28/24) Arthrodesis status (12/28/24) Physical Therapy Treatment Note PT-OP-A Visit Information Start: 10/10/24 12:55 Freq: Status: Active Protocol: Document 12/28/24 12:15 DCW (Rec: 12/28/24 13:03 DCW [id number]) Out-Patient Physical Therapy Visit Information Visit Information Visit Type Treatment Note Visit Start Time 12:15 Visit Stop Time 13:00 Visit Number 15 Number of FINE PATCHER Visits 0 Evaluation Information Evaluation Date 10/10/24 Precautions Precautions monitor BP pre-ex, during ex, post ex PT-OP-B Current Condition Start: 10/10/24 12:55 Freq: Status: Active Protocol: Document 10/10/24 12:15 DCW (Rec: 10/11/24 11:30 DCW [id number]) Current Condition History of Current Condition Onset Date Long-standing history Current Complaints Mid back pain, leg pain, declining activity tolerance History of Current Condition Pt is a 79 year old female with a long-standing history of back problems, prior CVA, balance issues, and falls. Pt is well known to this clinic, has been seen off and on multiple times over the last 10 years for various complaints, mainly due to her back. Pt has life-long history of scoliosis, as well as a R TKA ~20 years ago. Notes that she has probably had 29 different surgeries all over my body. Recently has been experiencing increased mid-to- low back pain, as well as pain radiating into her legs. Pt reports fairly significant fatigue with activity, limited gait, and LE weakness. PT-OP-C Subjective Start: 10/10/24 12:55 Freq: Status: Active Protocol: Document 12/28/24 12:15 DCW (Rec: 12/28/24 13:03 DCW [id number]) OP-PT Subjective Patient Comments Patient Comments Everything is just fantastic. PT-OP-D Balance Start: 10/10/24 12:55 Freq: Status: Active Protocol: Document 10/10/24 12:15 DCW (Rec: 10/11/24 11:30 DCW [id number]) OP-PT Balance Assessment Sitting Balance Static Sitting Balance Ability Good Dynamic Sitting Balance Ability Good Standing Balance Static Standing Balance Ability Poor Dynamic Standing Balance Ability Poor Device Used 4WW Balance Tests Dominguez Balance Test Dominguez Balance Test Score 29/56 Dominguez Impairment Rating 40 to 59% Impaired (Score 23- 33) Dominguez Balance Assessment Evaluation Sitting to Standing Ability Several Tries w/Hands Unsupported Stance Several Tries, 30 seconds Sitting Unsupported, Feet on Floor Safely- 2 minutes Standing to Sitting Ability Assist, Control w/Hands Transfer Ability Safely, Hand Use Unsupported Stance- Eyes Closed 3 seconds Unsupported Stance- Eyes Open Assist to attain, 15 secs Reaching Forward Standing Safely, 5 inches Pick- Up Object From Floor Supervision Look Behind Shoulder - Standing Turns Sideways Only Turning 360 Degrees Turns slowly, but safely Unsupported Stance, Alternating Feet on 2 Steps w/Minimum Assist Stair Unsupported Tandem Stance Assist to Step-15 seconds Unilateral Leg Stance Lifts Leg/Unable to Hold Total Score Dominguez Total Score (out of 56 points) 29 Dominguez Impairment Rating 40 to 59% Impaired (Score 23- 33) Delgado Fall Scale Copyright Permission PT-OP-E Functional Tests Start: 10/10/24 12:55 Freq: Status: Active Protocol: Document 10/10/24 12:15 DCW (Rec: 10/11/24 11:30 [facility] [id number]) Functional Tests 2 Minute Walk Test Distance 302' Device Used 4WW Comments 2.52 ft/sec Five Times Sit to Stand Test Score 27.76 PT-OP-M Strength Start: 10/10/24 12:55 Freq: Status: Active Protocol: Document 10/10/24 12:15 DCW (Rec: 10/11/24 11:30 DCW [id number]) Hip Strength Hip Manual Muscle Testing Right Flexion (L2) 4 Good Extension (S1) 4+ Good+ Abduction 4- Good- Adduction 4- Good- External Rotation 4 Good Internal Rotation 4 Good Left Flexion (L2) 3+ Fair+ Extension (S1) 4 Good Abduction 3+ Fair+ Adduction 4- Good- External Rotation 4- Good- Internal Rotation 4- Good- Knee Strength Knee Manual Muscle Testing Right Flexion (S2) 4 Good Extension (L3) 4 Good Left Flexion (S2) 4- Good- Extension (L3) 4- Good- Comments Left knee pain with MMT PT-OP-Q Treatments Start: 10/10/24 12:55 Freq: Status: Active Protocol: Document 12/28/24 12:15 DCW (Rec: 12/28/24 13:03 DCW [id number]) Cardio Equipment Recumbent Stepper (Sci-Fit) Duration (Minutes) 6 Resistance 3.7 Seat Position 9 Other BUE/BLEs, BP after 148/82 post Gym Equipment Shuttle Recovery Unilateral Squats Details VCs to perform slowly Resistance 50# (two teal) Shuttle Recovery Platform Stable Reps/Time 2x15 Bilateral Squats Details VC to perform slowly Resistance 75# 3 navy Shuttle Recovery Platform Stable Reps/Time 2x15 Neuro Re-Education Treatment Balance Activities Hurdles Details Hurdles Equipment // bars Comments Forward, Lateral Foam Details Foam Stance Surface AirEx Comments EO/EC Other Activities Mirror self alignment check Details Correcting posture and alignment in mirror while standing Reps/Duration several reps, hold for 5 seconds Comments Verbal and tactile cues used to help pt elevate ribcage and shift upper body to the left while shifting pelvis to the right to find midline. PT-OP-T Assessment and Plan Start: 10/10/24 12:55 Freq: Status: Active Protocol: Document 12/28/24 12:15 DCW (Rec: 12/28/24 13:03 DCW [id number]) Physical Therapy Assessment Assessment Summary Assessment Blood Pressure doing much better today, systolic below 150. Pt feeling like her activity tolerance is better. Continue to focus on LE strength, balance, posture, and activity tolerance. Physical Therapy Plan Frequency and Duration Frequency of Treatment 2x/Week Plan of Care Start Date 10/10/24 Plan of Care End Date 01/08/25 Therapeutic Interventions Therapeutic Interventions Balance Training,Canalithic Repositioning,Coordination Training,Gait Training,Home Exercise Program,Joint Mobilizations,Manual Therapy, Neuromuscular Re-education, Patient/Caregiver Education, Self-Care/Home Management,Soft Tissue Mobilization, Therapeutic Activities, Therapeutic Exercises, Vestibular Rehabilitation Next Visit Focus/Plan Next Note Type Treatment Note Next Visit Plan REcheck: Using mirror for postural correction self assist alignment. Next tx, 2 minute walk test? POC: LE strengthening, activity tolerance, balance training
--- NOTE | 2024-12-31 13:00 | PT-OP ANOTE ---
Patient cancelled less then 24 hours due to having a fever and not feeling well.
--- NOTE | 2025-01-02 15:14 | PT.OTN ---
Current Diagnoses Cerebral infarction, unspecified (01/02/25) Unspecified osteoarthritis, unspecified site (01/02/25) Pain in left knee (01/02/25) Low back pain, unspecified (01/02/25) Unsteadiness on feet (01/02/25) Arthrodesis status (01/02/25) Physical Therapy Treatment Note PT-OP-A Visit Information Start: 10/10/24 12:55 Freq: Status: Active Protocol: Document 01/02/25 14:31 DCW (Rec: 01/02/25 15:14 DCW [id number]) Out-Patient Physical Therapy Visit Information Visit Information Visit Type Treatment Note Visit Start Time 14:31 Visit Stop Time 15:15 Visit Number 16 Number of LABOR ARBITRATOR Visits 0 Evaluation Information Evaluation Date 10/10/24 Precautions Precautions monitor BP pre-ex, during ex, post ex PT-OP-B Current Condition Start: 10/10/24 12:55 Freq: Status: Active Protocol: Document 10/10/24 12:15 DCW (Rec: 10/11/24 11:30 DCW [id number]) Current Condition History of Current Condition Onset Date Long-standing history Current Complaints Mid back pain, leg pain, declining activity tolerance History of Current Condition Pt is a 79 year old female with a long-standing history of back problems, prior CVA, balance issues, and falls. Pt is well known to this clinic, has been seen off and on multiple times over the last 10 years for various complaints, mainly due to her back. Pt has life-long history of scoliosis, as well as a R TKA ~20 years ago. Notes that she has probably had 29 different surgeries all over my body. Recently has been experiencing increased mid-to- low back pain, as well as pain radiating into her legs. Pt reports fairly significant fatigue with activity, limited gait, and LE weakness. PT-OP-C Subjective Start: 10/10/24 12:55 Freq: Status: Active Protocol: Document 01/02/25 14:31 DCW (Rec: 01/02/25 15:14 DCW [id number]) OP-PT Subjective Patient Comments Patient Comments Pt reports she is feeling pretty good today. BP measured at start of session: 161/73 PT-OP-D Balance Start: 10/10/24 12:55 Freq: Status: Active Protocol: Document 10/10/24 12:15 DCW (Rec: 10/11/24 11:30 DCW [id number]) OP-PT Balance Assessment Sitting Balance Static Sitting Balance Ability Good Dynamic Sitting Balance Ability Good Standing Balance Static Standing Balance Ability Poor Dynamic Standing Balance Ability Poor Device Used 4WW Balance Tests Dominguez Balance Test Dominguez Balance Test Score 29/56 Dominguez Impairment Rating 40 to 59% Impaired (Score 23- 33) Dominguez Balance Assessment Evaluation Sitting to Standing Ability Several Tries w/Hands Unsupported Stance Several Tries, 30 seconds Sitting Unsupported, Feet on Floor Safely- 2 minutes Standing to Sitting Ability Assist, Control w/Hands Transfer Ability Safely, Hand Use Unsupported Stance- Eyes Closed 3 seconds Unsupported Stance- Eyes Open Assist to attain, 15 secs Reaching Forward Standing Safely, 5 inches Pick- Up Object From Floor Supervision Look Behind Shoulder - Standing Turns Sideways Only Turning 360 Degrees Turns slowly, but safely Unsupported Stance, Alternating Feet on 2 Steps w/Minimum Assist Stair Unsupported Tandem Stance Assist to Step-15 seconds Unilateral Leg Stance Lifts Leg/Unable to Hold Total Score Dominguez Total Score (out of 56 points) 29 Dominguez Impairment Rating 40 to 59% Impaired (Score 23- 33) Delgado Fall Scale Copyright Permission PT-OP-E Functional Tests Start: 10/10/24 12:55 Freq: Status: Active Protocol: Document 10/10/24 12:15 DCW (Rec: 10/11/24 11:30 DCW [id number]) Functional Tests 2 Minute Walk Test Distance 302' Device Used 4WW Comments 2.52 ft/sec Five Times Sit to Stand Test Score 27.76 PT-OP-M Strength Start: 10/10/24 12:55 Freq: Status: Active Protocol: Document 10/10/24 12:15 DCW (Rec: 10/11/24 11:30 DCW [id number]) Hip Strength Hip Manual Muscle Testing Right Flexion (L2) 4 Good Extension (S1) 4+ Good+ Abduction 4- Good- Adduction 4- Good- External Rotation 4 Good Internal Rotation 4 Good Left Flexion (L2) 3+ Fair+ Extension (S1) 4 Good Abduction 3+ Fair+ Adduction 4- Good- External Rotation 4- Good- Internal Rotation 4- Good- Knee Strength Knee Manual Muscle Testing Right Flexion (S2) 4 Good Extension (L3) 4 Good Left Flexion (S2) 4- Good- Extension (L3) 4- Good- Comments Left knee pain with MMT PT-OP-Q Treatments Start: 10/10/24 12:55 Freq: Status: Active Protocol: Document 01/02/25 14:31 DCW (Rec: 01/02/25 15:14 DCW [id number]) Cardio Equipment Recumbent Stepper (Sci-Fit) Duration (Minutes) 6 Resistance 3.5 Seat Position 9 Other BUE/BLEs, BP after 152/76 post Gym Equipment Shuttle Recovery Unilateral Squats Details VCs to perform slowly Resistance 50# (two teal) Shuttle Recovery Platform Stable Reps/Time 2x15 Bilateral Squats Details VC to perform slowly Resistance 87# 3 navy Shuttle Recovery Platform Stable Reps/Time 2x15 Neuro Re-Education Treatment Balance Activities Hurdles Details Hurdles Equipment // bars Comments Lateral Tandem Details Tandem Ambulation Equipment // bars, UE support Foam Details Foam Stance Surface AirEx Comments EO/EC PT-OP-T Assessment and Plan Start: 10/10/24 12:55 Freq: Status: Active Protocol: Document 01/02/25 14:31 DCW (Rec: 01/02/25 15:14 DCW [id number]) Physical Therapy Assessment Impairments Impairments Activity Tolerance,Balance, Functional Activities, Functional Mobility,Gait,Pain, Posture,Strength,Tone, Transfers Goals Three Impairment Pt able to ambulate 306' with 4WW during 2MWT Jail Goal (LTG) Pt to demonstrate ability to ambulate >700' using LRAD during a 6MWT to demonstrate improved activity tolerance 12/12/24: 2MWT /c 3WW: 332' LTG Duration 01/08/25 Two Impairment Pt presents with a severe increased risk of falls, per Dominguez score (29/56) Jail Goal (LTG) Pt to demonstrate a decrease in falls risk by improving her score on the Dominguez Balance Scale by at least six points to 35/56 LTG Duration 01/08/25 One Impairment Pt does not have an appropriate home exercise program Short Term Goal (STG) Pt to be independent and compliant with an appropriate HEP 11/21/24: 10/17/24 HEP HO provided again to pt, with edu for no breathholding. 12/05/24: Full HEP copied to 1 page handout front/back and provided to pt w/ emphasis for STS w/ focus on increasing weightbearing into LLE, and for toe raises to reduce risk of tripping. STG Duration 01/08/25 Assessment Summary Assessment Pt tolerating well today, did more with fewer rest breaks. New POC next visit. Overall showing some improvement with balance and strength. Physical Therapy Plan Frequency and Duration Frequency of Treatment 2x/Week Plan of Care Start Date 10/10/24 Plan of Care End Date 01/08/25 Therapeutic Interventions Therapeutic Interventions Balance Training,Canalithic Repositioning,Coordination Training,Gait Training,Home Exercise Program,Joint Mobilizations,Manual Therapy, Neuromuscular Re-education, Patient/Caregiver Education, Self-Care/Home Management,Soft Tissue Mobilization, Therapeutic Activities, Therapeutic Exercises, Vestibular Rehabilitation Next Visit Focus/Plan Next Note Type Progress Note Next Visit Plan Recheck: Using mirror for postural correction self assist alignment. Next tx, 2 minute walk test? POC: LE strengthening, activity tolerance, balance training
--- NOTE | 2025-01-08 15:41 | PT-OP ANOTE ---
Pt arrived as scheduled for her Speech appointment at 1345, then left at the end, telling the supervisor front she would be back in an hour for her 1515 PT appointment. Pt has unfortunately not returned for her appointment, and calls to her listed number went to voicemail. A message was left reminding ppt of her appointment, and a request to call back in hopes of getting her scheduled tomorrow, as her POC is expiring.
--- NOTE | 2025-01-08 16:37 | PT.OTN ---
Current Diagnoses Cerebral infarction, unspecified (01/08/25) Unspecified osteoarthritis, unspecified site (01/08/25) Pain in left knee (01/08/25) Low back pain, unspecified (01/08/25) Unsteadiness on feet (01/08/25) Arthrodesis status (01/08/25) Physical Therapy Treatment Note PT-OP-A Visit Information Start: 10/10/24 12:55 Freq: Status: Active Protocol: Document 01/08/25 15:50 DCW (Rec: 01/08/25 16:36 DCW [id number]) Out-Patient Physical Therapy Visit Information Visit Information Visit Type Progress Note Visit Note Pt arrived late due to confusion with scheduling Visit Start Time 15:50 Visit Stop Time 16:15 Visit Number 17 Number of WIRED MUSIC OPERATOR Visits 0 Evaluation Information Evaluation Date 10/10/24 Precautions Precautions monitor BP pre-ex, during ex, post ex PT-OP-B Current Condition Start: 10/10/24 12:55 Freq: Status: Active Protocol: Document 10/10/24 12:15 DCW (Rec: 10/11/24 11:30 DCW [id number]) Current Condition History of Current Condition Onset Date Long-standing history Current Complaints Mid back pain, leg pain, declining activity tolerance History of Current Condition Pt is a 79 year old female with a long-standing history of back problems, prior CVA, balance issues, and falls. Pt is well known to this clinic, has been seen off and on multiple times over the last 10 years for various complaints, mainly due to her back. Pt has life-long history of scoliosis, as well as a R TKA ~20 years ago. Notes that she has probably had 29 different surgeries all over my body. Recently has been experiencing increased mid-to- low back pain, as well as pain radiating into her legs. Pt reports fairly significant fatigue with activity, limited gait, and LE weakness. PT-OP-C Subjective Start: 10/10/24 12:55 Freq: Status: Active Protocol: Document 01/08/25 15:50 DCW (Rec: 01/08/25 16:36 DCW [id number]) OP-PT Subjective Patient Comments Patient Comments My balance is still a little off, but it's getting better. PT-OP-D Balance Start: 10/10/24 12:55 Freq: Status: Active Protocol: Document 01/08/25 15:50 DCW (Rec: 01/08/25 16:14 DCW [id number]) Balance Tests Dominguez Balance Test Dominguez Balance Test Score 35/56 Dominguez Impairment Rating 20 to 39% Impaired (Score 34- 44) Dominguez Balance Assessment Evaluation Sitting to Standing Ability Independent w/out Hands Unsupported Stance Supervision- 2 minutes Sitting Unsupported, Feet on Floor Safely- 2 minutes Standing to Sitting Ability Safely, Minimal Hand Use Transfer Ability Safely, Hand Use Unsupported Stance- Eyes Closed Supervision, 10 seconds Unsupported Stance- Eyes Open Assist to attain, 15 secs Reaching Forward Standing Safely, 5 inches Pick- Up Object From Floor Supervision Look Behind Shoulder - Standing Turns Sideways Only Turning 360 Degrees Turns slowly, but safely Unsupported Stance, Alternating Feet on 2 Steps w/Minimum Assist Stair Unsupported Tandem Stance Small Step- 30 seconds Unilateral Leg Stance Lifts Leg/Unable to Hold Total Score Dominguez Total Score (out of 56 points) 36 Dominguez Impairment Rating 20 to 39% Impaired (Score 34- 44) PT-OP-E Functional Tests Start: 10/10/24 12:55 Freq: Status: Active Protocol: Document 01/08/25 15:50 DCW (Rec: 01/08/25 16:14 DCW [id number]) Functional Tests 2 Minute Walk Test Distance 301' Device Used 4WW Comments 2.51 ft/sec Five Times Sit to Stand Test Score 18.98 PT-OP-M Strength Start: 10/10/24 12:55 Freq: Status: Active Protocol: Document 10/10/24 12:15 DCW (Rec: 10/11/24 11:30 DCW [id number]) Hip Strength Hip Manual Muscle Testing Right Flexion (L2) 4 Good Extension (S1) 4+ Good+ Abduction 4- Good- Adduction 4- Good- External Rotation 4 Good Internal Rotation 4 Good Left Flexion (L2) 3+ Fair+ Extension (S1) 4 Good Abduction 3+ Fair+ Adduction 4- Good- External Rotation 4- Good- Internal Rotation 4- Good- Knee Strength Knee Manual Muscle Testing Right Flexion (S2) 4 Good Extension (L3) 4 Good Left Flexion (S2) 4- Good- Extension (L3) 4- Good- Comments Left knee pain with MMT PT-OP-Q Treatments Start: 10/10/24 12:55 Freq: Status: Active Protocol: Document 01/08/25 15:50 DCW (Rec: 01/08/25 16:36 DCW [id number]) Neuro Re-Education Treatment Other Activities Testing Details Dominguez, 5xStS, 2MWT PT-OP-T Assessment and Plan Start: 10/10/24 12:55 Freq: Status: Active Protocol: Document 01/08/25 15:50 DCW (Rec: 01/08/25 16:36 DCW [id number]) Physical Therapy Assessment Impairments Impairments Activity Tolerance,Balance, Functional Activities, Functional Mobility,Gait,Pain, Posture,Strength,Tone, Transfers Goals Three Impairment Pt able to ambulate 306' with 4WW during 2MWT Senior Living Goal (LTG) Pt to demonstrate ability to ambulate >700' using LRAD during a 6MWT to demonstrate improved activity tolerance 12/12/24: 2MWT /c 3WW: 332' LTG Duration 03/10/25 Two Impairment Pt presents with a severe increased risk of falls, per Dominguez score (29/56) Short Term Goal (STG) Pt to demonstrate a decrease in falls risk by improving her score on the Dominguez Balance Scale by at least six points to 35/56 STG Duration Met Senior Living Goal (LTG) Pt to demonstrate a decrease in falls risk by improving her score on the Dominguez Balance Scale by at least five points to 40/56 LTG Duration 03/10/25 One Impairment Pt does not have an appropriate home exercise program Short Term Goal (STG) Pt to be independent and compliant with an appropriate HEP STG Duration 02/08/25 Assessment Summary Assessment Pt showing some good improvements overall with her balance. Domignuez score improved six points from 29/56 to 35/56 . 5xStS score also improved, went from 28 at eval to 19 today. Pt does still exhibit increased falls risk, and will likely continue to benefit from skilled therapeutic intervention. Continue to focus on strength, balance, and activity tolerance. Physical Therapy Plan Frequency and Duration Plan of Care Start Date 01/08/25 Plan of Care End Date 03/10/25 Therapeutic Interventions Therapeutic Interventions Balance Training,Canalithic Repositioning,Coordination Training,Gait Training,Home Exercise Program,Joint Mobilizations,Manual Therapy, Neuromuscular Re-education, Patient/Caregiver Education, Self-Care/Home Management,Soft Tissue Mobilization, Therapeutic Activities, Therapeutic Exercises, Vestibular Rehabilitation Next Visit Focus/Plan Next Note Type Treatment Note Next Visit Plan Recheck: Using mirror for postural correction self assist alignment. Next tx, 2 minute walk test? POC: LE strengthening, activity tolerance, balance training
--- NOTE | 2025-01-08 16:37 | PT.OPPOC ---
Physical, Occupational & Speech Therapy At [facility] Current Diagnoses Cerebral infarction, unspecified (01/08/25) Unspecified osteoarthritis, unspecified site (01/08/25) Pain in left knee (01/08/25) Low back pain, unspecified (01/08/25) Unsteadiness on feet (01/08/25) Arthrodesis status (01/08/25) Visit Care Team Role Provider Type HAMZAH Navas Family Provider Non-Staff Specialty: [facility] Practice Address: [address] [place] [address], [facility] Email: Nabor Starkey MD Attending Provider Physician Primary Care Provider Referring Provider Specialty: [facility] Address: [address] [place] [address] Email: [email or web address] Plan Of Care PT-OP-B Current Condition Start: 10/10/24 12:55 Freq: Status: Active Protocol: Document 10/10/24 12:15 DCW (Rec: 10/11/24 11:30 DCW [id number]) Current Condition History of Current Condition Onset Date Long-standing history Current Complaints Mid back pain, leg pain, declining activity tolerance History of Current Condition Pt is a 79 year old female with a long-standing history of back problems, prior CVA, balance issues, and falls. Pt is well known to this clinic, has been seen off and on multiple times over the last 10 years for various complaints, mainly due to her back. Pt has life-long history of scoliosis, as well as a R TKA ~20 years ago. Notes that she has probably had 29 different surgeries all over my body. Recently has been experiencing increased mid-to- low back pain, as well as pain radiating into her legs. Pt reports fairly significant fatigue with activity, limited gait, and LE weakness. PT-OP-T Assessment and Plan Start: 10/10/24 12:55 Freq: Status: Active Protocol: Document 01/08/25 15:50 DCW (Rec: 01/08/25 16:36 DCW [id number]) Physical Therapy Assessment Impairments Impairments Activity Tolerance,Balance, Functional Activities, Functional Mobility,Gait,Pain, Posture,Strength,Tone, Transfers Goals Three Impairment Pt able to ambulate 306' with 4WW during 2MWT Jail Goal (LTG) Pt to demonstrate ability to ambulate >700' using LRAD during a 6MWT to demonstrate improved activity tolerance 12/12/24: 2MWT /c 3WW: 332' LTG Duration 03/10/25 Two Impairment Pt presents with a severe increased risk of falls, per Dominguez score (29/56) Short Term Goal (STG) Pt to demonstrate a decrease in falls risk by improving her score on the Dominguez Balance Scale by at least six points to 35/56 STG Duration Met [employer] Drilling Machine Operator Goal (LTG) Pt to demonstrate a decrease in falls risk by improving her score on the Dominguez Balance Scale by at least five points to 40/56 LTG Duration 03/10/25 One Impairment Pt does not have an appropriate home exercise program Short Term Goal (STG) Pt to be independent and compliant with an appropriate HEP STG Duration 02/08/25 Assessment Summary Assessment Pt showing some good improvements overall with her balance. Dominguez score improved six points from 29/56 to 35/56 . 5xStS score also improved, went from 28 at eval to 19 today. Pt does still exhibit increased falls risk, and will likely continue to benefit from skilled therapeutic intervention. Continue to focus on strength, balance, and activity tolerance. Physical Therapy Plan Frequency and Duration Plan of Care Start Date 01/08/25 Plan of Care End Date 03/10/25 Therapeutic Interventions Therapeutic Interventions Balance Training,Canalithic Repositioning,Coordination Training,Gait Training,Home Exercise Program,Joint Mobilizations,Manual Therapy, Neuromuscular Re-education, Patient/Caregiver Education, Self-Care/Home Management,Soft Tissue Mobilization, Therapeutic Activities, Therapeutic Exercises, Vestibular Rehabilitation Next Visit Focus/Plan Next Note Type Treatment Note Next Visit Plan Recheck: Using mirror for postural correction self assist alignment. Next tx, 2 minute walk test? POC: LE strengthening, activity tolerance, balance training Plan of Care Dates Plan of Care Start Date 01/08/25 Plan of Care End Date 03/10/25 Electronically Signed by: Santi No, PT 01/08/25 [id number] If you are in agreement with this Plan of Care, please return a signed and dated copy. I have reviewed this Plan of Care and certify that the skilled therapy services above are required to meet the patient?s needs. Physician Signature Date Printed Name and Credentials Clinical Instructor Signature Printed Name and Credentials
--- NOTE | 2025-01-09 17:58 | PT.OTN ---
Current Diagnoses Cerebral infarction, unspecified (01/09/25) Unspecified osteoarthritis, unspecified site (01/09/25) Pain in left knee (01/09/25) Low back pain, unspecified (01/09/25) Unsteadiness on feet (01/09/25) Arthrodesis status (01/09/25) Physical Therapy Treatment Note PT-OP-A Visit Information Start: 10/10/24 12:55 Freq: Status: Active Protocol: Document 01/09/25 16:13 AB (Rec: 01/09/25 17:55 AB Laptop) Out-Patient Physical Therapy Visit Information Visit Information Visit Type Treatment Note Visit Start Time 17:03 Visit Stop Time 17:48 Visit Number 18 Number of INCISING MACHINE OPERATOR Visits 1 Evaluation Information Evaluation Date 10/10/24 PT-OP-B Current Condition Start: 10/10/24 12:55 Freq: Status: Active Protocol: Document 10/10/24 12:15 DCW (Rec: 10/11/24 11:30 DCW [id number]) Current Condition History of Current Condition Onset Date Long-standing history Current Complaints Mid back pain, leg pain, declining activity tolerance History of Current Condition Pt is a 79 year old female with a long-standing history of back problems, prior CVA, balance issues, and falls. Pt is well known to this clinic, has been seen off and on multiple times over the last 10 years for various complaints, mainly due to her back. Pt has life-long history of scoliosis, as well as a R TKA ~20 years ago. Notes that she has probably had 29 different surgeries all over my body. Recently has been experiencing increased mid-to- low back pain, as well as pain radiating into her legs. Pt reports fairly significant fatigue with activity, limited gait, and LE weakness. PT-OP-C Subjective Start: 10/10/24 12:55 Freq: Status: Active Protocol: Document 01/09/25 16:13 AB (Rec: 01/09/25 17:55 AB Laptop) OP-PT Subjective Patient Comments Patient Comments Patient reports she is good, comments she has more confidence when she walks. Patient reports her back and legs hurt, but she has learned to live with it. PT-OP-D Balance Start: 10/10/24 12:55 Freq: Status: Active Protocol: Document 01/08/25 15:50 DCW (Rec: 01/08/25 16:14 DCW [id number]) Balance Tests Dominguez Balance Test Dominguez Balance Test Score 35/56 Dominguez Impairment Rating 20 to 39% Impaired (Score 34- 44) Dominguez Balance Assessment Evaluation Sitting to Standing Ability Independent w/out Hands Unsupported Stance Supervision- 2 minutes Sitting Unsupported, Feet on Floor Safely- 2 minutes Standing to Sitting Ability Safely, Minimal Hand Use Transfer Ability Safely, Hand Use Unsupported Stance- Eyes Closed Supervision, 10 seconds Unsupported Stance- Eyes Open Assist to attain, 15 secs Reaching Forward Standing Safely, 5 inches Pick- Up Object From Floor Supervision Look Behind Shoulder - Standing Turns Sideways Only Turning 360 Degrees Turns slowly, but safely Unsupported Stance, Alternating Feet on 2 Steps w/Minimum Assist Stair Unsupported Tandem Stance Small Step- 30 seconds Unilateral Leg Stance Lifts Leg/Unable to Hold Total Score Dominguez Total Score (out of 56 points) 36 Dominguez Impairment Rating 20 to 39% Impaired (Score 34- 44) PT-OP-E Functional Tests Start: 10/10/24 12:55 Freq: Status: Active Protocol: Document 01/08/25 15:50 DCW (Rec: 01/08/25 16:14 DCW [id number]) Functional Tests 2 Minute Walk Test Distance 301' Device Used 4WW Comments 2.51 ft/sec Five Times Sit to Stand Test Score 18.98 PT-OP-M Strength Start: 10/10/24 12:55 Freq: Status: Active Protocol: Document 10/10/24 12:15 DCW (Rec: 10/11/24 11:30 DCW [id number]) Hip Strength Hip Manual Muscle Testing Right Flexion (L2) 4 Good Extension (S1) 4+ Good+ Abduction 4- Good- Adduction 4- Good- External Rotation 4 Good Internal Rotation 4 Good Left Flexion (L2) 3+ Fair+ Extension (S1) 4 Good Abduction 3+ Fair+ Adduction 4- Good- External Rotation 4- Good- Internal Rotation 4- Good- Knee Strength Knee Manual Muscle Testing Right Flexion (S2) 4 Good Extension (L3) 4 Good Left Flexion (S2) 4- Good- Extension (L3) 4- Good- Comments Left knee pain with MMT PT-OP-Q Treatments Start: 10/10/24 12:55 Freq: Status: Active Protocol: Document 01/09/25 16:13 AB (Rec: 01/09/25 17:55 AB Laptop) Gym Equipment Shuttle Recovery Unilateral Squats Details VCs to perform slowly Resistance 50# (two teal) Shuttle Recovery Platform Stable Reps/Time 2x15 Bilateral Squats Details VC to perform slowly Resistance 87# 3 navy Shuttle Recovery Platform Stable Reps/Time 2x15 Therapeutic Exercises Sitting Exercises Lateral trunk Lean stretch Sitting Exercise Name seated quadratus lumborum stretch right side Side right Reps/Minutes 15-30 sec X 3 Comments to elongate right hip abduction Sitting Exercise Name Hip Abduction Side bilateral Resistance Lv 4 Reps/Minutes ( X 15 HEP) and one HEPminute hold Neuro Re-Education Treatment Balance Activities retro stepping Details cga to minimal assist Reps/Duration 10 feet X 3 Comments hands above bars Hurdles Details Hurdles Equipment // bars Reps/Duration 10 feet L and right X 2 Comments Lateral with UE support Tandem Details Tandem Ambulation Equipment // bars, UE support Reps/Duration 10 feet X 4 with CGA to minimal assist Foam Details step ups Surface AirEx Equipment to 6 then 4 inch step Comments X 2 on 6 inch step, X 10 in 4 inch step CGA to very minimal assist PT-OP-T Assessment and Plan Start: 10/10/24 12:55 Freq: Status: Active Protocol: Document 01/09/25 16:13 AB (Rec: 01/09/25 17:55 AB Laptop) Physical Therapy Assessment Goals Three Impairment Pt able to ambulate 306' with 4WW during 2MWT Mcc Goal (LTG) Pt to demonstrate ability to ambulate >700' using LRAD during a 6MWT to demonstrate improved activity tolerance 12/12/24: 2MWT /c 3WW: 332' LTG Duration 03/10/25 Two Impairment Pt presents with a severe increased risk of falls, per Dominguez score (29/56) Short Term Goal (STG) Pt to demonstrate a decrease in falls risk by improving her score on the Dominguez Balance Scale by at least six points to 35/56 STG Duration Met Mcc Goal (LTG) Pt to demonstrate a decrease in falls risk by improving her score on the Dominguez Balance Scale by at least five points to 40/56 LTG Duration 03/10/25 One Impairment Pt does not have an appropriate home exercise program Short Term Goal (STG) Pt to be independent and compliant with an appropriate HEP STG Duration 02/08/25 Assessment Summary Assessment Patient increasingly unsteady last 5 feet of balance activities. Patient verbalizes she enjoyed the balance training/ex this session. Physical Therapy Plan Frequency and Duration Frequency of Treatment 2x/Week Plan of Care Start Date 01/08/25 Plan of Care End Date 03/10/25 Next Visit Focus/Plan Next Note Type Treatment Note Next Visit Plan Recheck: Using mirror for postural correction self assist alignment. Next tx, 2 minute walk test? POC: LE strengthening, activity tolerance, balance training
--- NOTE | 2025-01-15 14:25 | PT-OP ANOTE ---
Pt cancelled this week's 2 appts, no reason given. DRY MILL WORKER left message checking in if doing ok and want to support progress with attendance but appreciate cancelling >24 hrs notice. Reminded next appt 01/23 with PT.
--- NOTE | 2025-01-23 14:30 | PT.OTN ---
Addendum entered and electronically signed by Santi No, PT 01/25/25 08:37: PT direct supervision and direction to student PT Kurt Munoz throughout session Original Note: Current Diagnoses Cerebral infarction, unspecified (01/23/25) Unspecified osteoarthritis, unspecified site (01/23/25) Pain in left knee (01/23/25) Low back pain, unspecified (01/23/25) Unsteadiness on feet (01/23/25) Arthrodesis status (01/23/25) Physical Therapy Treatment Note PT-OP-A Visit Information Start: 10/10/24 12:55 Freq: Status: Active Protocol: Document 01/23/25 13:48 LFG (Rec: 01/23/25 15:28 LFG Laptop) Out-Patient Physical Therapy Visit Information Visit Information Visit Type Treatment Note Visit Start Time 13:45 Visit Stop Time 14:30 Visit Number 19 Number of COORDINATOR CARDIOPULMONARY SERVICES Visits 0 PT-OP-B Current Condition Start: 10/10/24 12:55 Freq: Status: Active Protocol: Document 10/10/24 12:15 DCW (Rec: 10/11/24 11:30 DCW [id number]) Current Condition History of Current Condition Onset Date Long-standing history Current Complaints Mid back pain, leg pain, declining activity tolerance History of Current Condition Pt is a 79 year old female with a long-standing history of back problems, prior CVA, balance issues, and falls. Pt is well known to this clinic, has been seen off and on multiple times over the last 10 years for various complaints, mainly due to her back. Pt has life-long history of scoliosis, as well as a R TKA ~20 years ago. Notes that she has probably had 29 different surgeries all over my body. Recently has been experiencing increased mid-to- low back pain, as well as pain radiating into her legs. Pt reports fairly significant fatigue with activity, limited gait, and LE weakness. PT-OP-C Subjective Start: 10/10/24 12:55 Freq: Status: Active Protocol: Document 01/23/25 13:48 LFG (Rec: 01/23/25 15:28 LFG Laptop) OP-PT Subjective Patient Comments Patient Comments Pt reports feeling fine/good today. Comments on becoming noticeably short/cranky over last few months triggered by small things. Pt would like exercises for improving her walking and acknowledges she could be adhering to her HEP better. Complaints of knee L pain and asking about TKR prognosis PT-OP-D Balance Start: 10/10/24 12:55 Freq: Status: Active Protocol: Document 01/08/25 15:50 DCW (Rec: 01/08/25 16:14 DCW [id number]) Balance Tests Dominguez Balance Test Dominguez Balance Test Score 35/56 Dominguez Impairment Rating 20 to 39% Impaired (Score 34- 44) Dominguez Balance Assessment Evaluation Sitting to Standing Ability Independent w/out Hands Unsupported Stance Supervision- 2 minutes Sitting Unsupported, Feet on Floor Safely- 2 minutes Standing to Sitting Ability Safely, Minimal Hand Use Transfer Ability Safely, Hand Use Unsupported Stance- Eyes Closed Supervision, 10 seconds Unsupported Stance- Eyes Open Assist to attain, 15 secs Reaching Forward Standing Safely, 5 inches Pick- Up Object From Floor Supervision Look Behind Shoulder - Standing Turns Sideways Only Turning 360 Degrees Turns slowly, but safely Unsupported Stance, Alternating Feet on 2 Steps w/Minimum Assist Stair Unsupported Tandem Stance Small Step- 30 seconds Unilateral Leg Stance Lifts Leg/Unable to Hold Total Score Dominguez Total Score (out of 56 points) 36 Dominguez Impairment Rating 20 to 39% Impaired (Score 34- 44) PT-OP-E Functional Tests Start: 10/10/24 12:55 Freq: Status: Active Protocol: Document 01/08/25 15:50 DCW (Rec: 01/08/25 16:14 DCW [id number]) Functional Tests 2 Minute Walk Test Distance 301' Device Used 4WW Comments 2.51 ft/sec Five Times Sit to Stand Test Score 18.98 PT-OP-M Strength Start: 10/10/24 12:55 Freq: Status: Active Protocol: Document 10/10/24 12:15 DCW (Rec: 10/11/24 11:30 DCW [id number]) Hip Strength Hip Manual Muscle Testing Right Flexion (L2) 4 Good Extension (S1) 4+ Good+ Abduction 4- Good- Adduction 4- Good- External Rotation 4 Good Internal Rotation 4 Good Left Flexion (L2) 3+ Fair+ Extension (S1) 4 Good Abduction 3+ Fair+ Adduction 4- Good- External Rotation 4- Good- Internal Rotation 4- Good- Knee Strength Knee Manual Muscle Testing Right Flexion (S2) 4 Good Extension (L3) 4 Good Left Flexion (S2) 4- Good- Extension (L3) 4- Good- Comments Left knee pain with MMT PT-OP-Q Treatments Start: 10/10/24 12:55 Freq: Status: Active Protocol: Document 01/23/25 13:48 LFG (Rec: 01/23/25 15:28 LFG Laptop) Cardio Equipment Recumbent Stepper (Sci-Fit) Duration (Minutes) 6 Resistance 3.5 Seat Position 9 Gym Equipment Shuttle Recovery Unilateral Squats Details VCs to perform slowly Resistance 50# (two teal) Shuttle Recovery Platform Stable Reps/Time 2x15 Bilateral Squats Details VC to perform slowly Resistance 87# 3 navy, 1 huang Shuttle Recovery Platform Stable Reps/Time 2x15, BP 140/80 after leg press session Therapeutic Exercises Sitting Exercises hip abduction Sitting Exercise Name Hip Abduction Side bilateral Resistance Lv 4 Reps/Minutes ( X 15 HEP) and one HEPminute hold STS Sitting Exercise Name StS, Pt demos RLE>LLE WB Reps/Minutes X1 with UE use on thighs Comments Pt challenged w/ ascent when focusing on increasing WB in LLE Standing Exercises Step ups Standing Exercise Name 4 step up Side bilateral Equipment Used Stairs Comments VC to straighten knee out PT-OP-T Assessment and Plan Start: 10/10/24 12:55 Freq: Status: Active Protocol: Document 01/23/25 13:48 LFG (Rec: 01/23/25 15:28 LFG Laptop) Physical Therapy Assessment Rehab Potential Rehabilitation Potential Fair Evaluation Complexity Number of Personal Factors/Comorbidities 3 or More Number of Body Systems Impaired 4 or More Clinical Presentation at Evaluation Unstable Impairments Impairments Activity Tolerance,Balance, Functional Activities, Functional Mobility,Gait,Pain, Posture,Strength,Tone, Transfers Other Concerns Fall Risk Yes, per on Dominguez Age Related Concerns Effect on social interactions Barriers to Rehabilitation ADD, Hx of Bipolar disorder, Hx CVA, Hx UTI, Hx A-fib,, Cystic fibrosis, COPD, CKD III , PVD, HTN Goals Three Impairment Pt able to ambulate 306' with 4WW during 2MWT Claims Counsel Goal (LTG) Pt to demonstrate ability to ambulate >700' using LRAD during a 6MWT to demonstrate improved activity tolerance 12/12/24: 2MWT /c 3WW: 332' LTG Duration 03/10/25 Two Impairment Pt presents with a severe increased risk of falls, per Dominguez score (29/56) Short Term Goal (STG) Pt to demonstrate a decrease in falls risk by improving her score on the Dominguez Balance Scale by at least six points to 35/56 STG Duration Met Usp Goal (LTG) Pt to demonstrate a decrease in falls risk by improving her score on the Dominguez Balance Scale by at least five points to 40/56 LTG Duration 03/10/25 One Impairment Pt does not have an appropriate home exercise program Short Term Goal (STG) Pt to be independent and compliant with an appropriate HEP STG Duration 02/08/25 Assessment Summary Assessment Patient struggled keeping LLE aligned and fully extending L knee during therapeutic exercises. Acknowledged that LLE is was not as strong/ involved or working as the RLE . Pt continues to complain of problem with walking, would benefit from LE strengthening and balancing. Physical Therapy Plan Frequency and Duration Frequency of Treatment 2x/Week Plan of Care Start Date 01/08/25 Plan of Care End Date 03/10/25 Therapeutic Interventions Therapeutic Interventions Balance Training,Canalithic Repositioning,Coordination Training,Gait Training,Home Exercise Program,Joint Mobilizations,Manual Therapy, Neuromuscular Re-education, Patient/Caregiver Education, Self-Care/Home Management,Soft Tissue Mobilization, Therapeutic Activities, Therapeutic Exercises, Vestibular Rehabilitation Next Visit Focus/Plan Next Note Type Treatment Note Next Visit Plan Recheck: Using mirror for postural correction self assist alignment. Next tx, 2 minute walk test? POC: LE strengthening, activity tolerance, balance training
--- NOTE | 2025-01-23 15:29 | PT.OTN ---
Current Diagnoses Cerebral infarction, unspecified (01/23/25) Unspecified osteoarthritis, unspecified site (01/23/25) Pain in left knee (01/23/25) Low back pain, unspecified (01/23/25) Unsteadiness on feet (01/23/25) Arthrodesis status (01/23/25) Physical Therapy Treatment Note PT-OP-A Visit Information Start: 10/10/24 12:55 Freq: Status: Active Protocol: Document 01/23/25 13:48 LFG (Rec: 01/23/25 15:28 LFG Laptop) Out-Patient Physical Therapy Visit Information Visit Information Visit Type Treatment Note Visit Start Time 13:45 Visit Stop Time 14:30 Visit Number 19 Number of SIGNAL PROCESSING ENGINEER Visits 0 PT-OP-B Current Condition Start: 10/10/24 12:55 Freq: Status: Active Protocol: Document 10/10/24 12:15 DCW (Rec: 10/11/24 11:30 DCW [id number]) Current Condition History of Current Condition Onset Date Long-standing history Current Complaints Mid back pain, leg pain, declining activity tolerance History of Current Condition Pt is a 79 year old female with a long-standing history of back problems, prior CVA, balance issues, and falls. Pt is well known to this clinic, has been seen off and on multiple times over the last 10 years for various complaints, mainly due to her back. Pt has life-long history of scoliosis, as well as a R TKA ~20 years ago. Notes that she has probably had 29 different surgeries all over my body. Recently has been experiencing increased mid-to- low back pain, as well as pain radiating into her legs. Pt reports fairly significant fatigue with activity, limited gait, and LE weakness. PT-OP-C Subjective Start: 10/10/24 12:55 Freq: Status: Active Protocol: Document 01/23/25 13:48 LFG (Rec: 01/23/25 15:28 LFG Laptop) OP-PT Subjective Patient Comments Patient Comments Pt reports feeling fine/good today. Comments on becoming noticeably short/cranky over last few months triggered by small things. Pt would like exercises for improving her walking and acknowledges she could be adhering to her HEP better. Complaints of knee L pain and asking about TKR prognosis PT-OP-D Balance Start: 10/10/24 12:55 Freq: Status: Active Protocol: Document 01/08/25 15:50 DCW (Rec: 01/08/25 16:14 DCW [id number]) Balance Tests Dominguez Balance Test Dominguez Balance Test Score 35/56 Dominguez Impairment Rating 20 to 39% Impaired (Score 34- 44) Dominguez Balance Assessment Evaluation Sitting to Standing Ability Independent w/out Hands Unsupported Stance Supervision- 2 minutes Sitting Unsupported, Feet on Floor Safely- 2 minutes Standing to Sitting Ability Safely, Minimal Hand Use Transfer Ability Safely, Hand Use Unsupported Stance- Eyes Closed Supervision, 10 seconds Unsupported Stance- Eyes Open Assist to attain, 15 secs Reaching Forward Standing Safely, 5 inches Pick- Up Object From Floor Supervision Look Behind Shoulder - Standing Turns Sideways Only Turning 360 Degrees Turns slowly, but safely Unsupported Stance, Alternating Feet on 2 Steps w/Minimum Assist Stair Unsupported Tandem Stance Small Step- 30 seconds Unilateral Leg Stance Lifts Leg/Unable to Hold Total Score Dominguez Total Score (out of 56 points) 36 Dominguez Impairment Rating 20 to 39% Impaired (Score 34- 44) PT-OP-E Functional Tests Start: 10/10/24 12:55 Freq: Status: Active Protocol: Document 01/08/25 15:50 DCW (Rec: 01/08/25 16:14 DCW [id number]) Functional Tests 2 Minute Walk Test Distance 301' Device Used 4WW Comments 2.51 ft/sec Five Times Sit to Stand Test Score 18.98 PT-OP-M Strength Start: 10/10/24 12:55 Freq: Status: Active Protocol: Document 10/10/24 12:15 DCW (Rec: 10/11/24 11:30 DCW [id number]) Hip Strength Hip Manual Muscle Testing Right Flexion (L2) 4 Good Extension (S1) 4+ Good+ Abduction 4- Good- Adduction 4- Good- External Rotation 4 Good Internal Rotation 4 Good Left Flexion (L2) 3+ Fair+ Extension (S1) 4 Good Abduction 3+ Fair+ Adduction 4- Good- External Rotation 4- Good- Internal Rotation 4- Good- Knee Strength Knee Manual Muscle Testing Right Flexion (S2) 4 Good Extension (L3) 4 Good Left Flexion (S2) 4- Good- Extension (L3) 4- Good- Comments Left knee pain with MMT PT-OP-Q Treatments Start: 10/10/24 12:55 Freq: Status: Active Protocol: Document 01/23/25 13:48 LFG (Rec: 01/23/25 15:28 LFG Laptop) Cardio Equipment Recumbent Stepper (Sci-Fit) Duration (Minutes) 6 Resistance 3.5 Seat Position 9 Gym Equipment Shuttle Recovery Unilateral Squats Details VCs to perform slowly Resistance 50# (two teal) Shuttle Recovery Platform Stable Reps/Time 2x15 Bilateral Squats Details VC to perform slowly Resistance 87# 3 navy, 1 huang Shuttle Recovery Platform Stable Reps/Time 2x15, BP 140/80 after leg press session Therapeutic Exercises Sitting Exercises hip abduction Sitting Exercise Name Hip Abduction Side bilateral Resistance Lv 4 Reps/Minutes ( X 15 HEP) and one HEPminute hold STS Sitting Exercise Name StS, Pt demos RLE>LLE WB Reps/Minutes X1 with UE use on thighs Comments Pt challenged w/ ascent when focusing on increasing WB in LLE Standing Exercises Step ups Standing Exercise Name 4 step up Side bilateral Equipment Used Stairs Comments VC to straighten knee out PT-OP-T Assessment and Plan Start: 10/10/24 12:55 Freq: Status: Active Protocol: Document 01/23/25 13:48 LFG (Rec: 01/23/25 15:28 LFG Laptop) Physical Therapy Assessment Rehab Potential Rehabilitation Potential Fair Evaluation Complexity Number of Personal Factors/Comorbidities 3 or More Number of Body Systems Impaired 4 or More Clinical Presentation at Evaluation Unstable Impairments Impairments Activity Tolerance,Balance, Functional Activities, Functional Mobility,Gait,Pain, Posture,Strength,Tone, Transfers Other Concerns Fall Risk Yes, per on Dominguez Age Related Concerns Effect on social interactions Barriers to Rehabilitation ADD, Hx of Bipolar disorder, Hx CVA, Hx UTI, Hx A-fib,, Cystic fibrosis, COPD, CKD III , PVD, HTN Goals Three Impairment Pt able to ambulate 306' with 4WW during 2MWT Exhibition Organiser Goal (LTG) Pt to demonstrate ability to ambulate >700' using LRAD during a 6MWT to demonstrate improved activity tolerance 12/12/24: 2MWT /c 3WW: 332' LTG Duration 03/10/25 Two Impairment Pt presents with a severe increased risk of falls, per Dominguez score () Short Term Goal (STG) Pt to demonstrate a decrease in falls risk by improving her score on the Dominguez Balance Scale by at least six points to 35/56 STG Duration Met Fci Goal (LTG) Pt to demonstrate a decrease in falls risk by improving her score on the Dominguez Balance Scale by at least five points to 40/56 LTG Duration 03/10/25 One Impairment Pt does not have an appropriate home exercise program Short Term Goal (STG) Pt to be independent and compliant with an appropriate HEP STG Duration 02/08/25 Assessment Summary Assessment Patient struggled keeping LLE aligned and fully extending L knee during therapeutic exercises. Acknowledged that LLE is was not as strong/ involved or working as the RLE . Pt continues to complain of problem with walking, would benefit from LE strengthening and balancing. Physical Therapy Plan Frequency and Duration Frequency of Treatment 2x/Week Plan of Care Start Date 01/08/25 Plan of Care End Date 03/10/25 Therapeutic Interventions Therapeutic Interventions Balance Training,Canalithic Repositioning,Coordination Training,Gait Training,Home Exercise Program,Joint Mobilizations,Manual Therapy, Neuromuscular Re-education, Patient/Caregiver Education, Self-Care/Home Management,Soft Tissue Mobilization, Therapeutic Activities, Therapeutic Exercises, Vestibular Rehabilitation Next Visit Focus/Plan Next Note Type Treatment Note Next Visit Plan Recheck: Using mirror for postural correction self assist alignment. Next tx, 2 minute walk test? POC: LE strengthening, activity tolerance, balance training
--- NOTE | 2025-01-25 15:28 | PT.OTN ---
Current Diagnoses Cerebral infarction, unspecified (01/25/25) Unspecified osteoarthritis, unspecified site (01/25/25) Pain in left knee (01/25/25) Low back pain, unspecified (01/25/25) Unsteadiness on feet (01/25/25) Arthrodesis status (01/25/25) Physical Therapy Treatment Note PT-OP-A Visit Information Start: 10/10/24 12:55 Freq: Status: Active Protocol: Document 01/25/25 13:03 PG (Rec: 01/25/25 14:04 PG Laptop) Out-Patient Physical Therapy Visit Information Visit Information Visit Type Treatment Note Visit Note Clare MONTELONGO led tx with permission from pt and direct supervision of PT Visit Start Time 13:03 Visit Stop Time 13:43 Visit Number 20 Number of HYDROGRAPHIC SURVEYOR Visits 1 Evaluation Information Evaluation Date 10/10/24 PT-OP-B Current Condition Start: 10/10/24 12:55 Freq: Status: Active Protocol: Document 10/10/24 12:15 DCW (Rec: 10/11/24 11:30 DCW [id number]) Current Condition History of Current Condition Onset Date Long-standing history Current Complaints Mid back pain, leg pain, declining activity tolerance History of Current Condition Pt is a 79 year old female with a long-standing history of back problems, prior CVA, balance issues, and falls. Pt is well known to this clinic, has been seen off and on multiple times over the last 10 years for various complaints, mainly due to her back. Pt has life-long history of scoliosis, as well as a R TKA ~20 years ago. Notes that she has probably had 29 different surgeries all over my body. Recently has been experiencing increased mid-to- low back pain, as well as pain radiating into her legs. Pt reports fairly significant fatigue with activity, limited gait, and LE weakness. PT-OP-C Subjective Start: 10/10/24 12:55 Freq: Status: Active Protocol: Document 01/25/25 13:03 PG (Rec: 01/25/25 14:04 PG Laptop) OP-PT Subjective Patient Comments Patient Comments Pt feeling good/fine today and as of lately. BP to begin tx: 144/82. Pt had a couple of days this past week that her BP had been high, so she laid down and was able to exercise. BP stable throughout tx. PT-OP-D Balance Start: 10/10/24 12:55 Freq: Status: Active Protocol: Document 01/08/25 15:50 DCW (Rec: 01/08/25 16:14 DCW [id number]) Balance Tests Dominguez Balance Test Dominguez Balance Test Score 35/56 Dominguez Impairment Rating 20 to 39% Impaired (Score 34- 44) Dominguez Balance Assessment Evaluation Sitting to Standing Ability Independent w/out Hands Unsupported Stance Supervision- 2 minutes Sitting Unsupported, Feet on Floor Safely- 2 minutes Standing to Sitting Ability Safely, Minimal Hand Use Transfer Ability Safely, Hand Use Unsupported Stance- Eyes Closed Supervision, 10 seconds Unsupported Stance- Eyes Open Assist to attain, 15 secs Reaching Forward Standing Safely, 5 inches Pick- Up Object From Floor Supervision Look Behind Shoulder - Standing Turns Sideways Only Turning 360 Degrees Turns slowly, but safely Unsupported Stance, Alternating Feet on 2 Steps w/Minimum Assist Stair Unsupported Tandem Stance Small Step- 30 seconds Unilateral Leg Stance Lifts Leg/Unable to Hold Total Score Dominguez Total Score (out of 56 points) 36 Dominguez Impairment Rating 20 to 39% Impaired (Score 34- 44) PT-OP-E Functional Tests Start: 10/10/24 12:55 Freq: Status: Active Protocol: Document 01/08/25 15:50 DCW (Rec: 01/08/25 16:14 DCW [id number]) Functional Tests 2 Minute Walk Test Distance 301' Device Used 4WW Comments 2.51 ft/sec Five Times Sit to Stand Test Score 18.98 PT-OP-M Strength Start: 10/10/24 12:55 Freq: Status: Active Protocol: Document 10/10/24 12:15 DCW (Rec: 10/11/24 11:30 DCW [id number]) Hip Strength Hip Manual Muscle Testing Right Flexion (L2) 4 Good Extension (S1) 4+ Good+ Abduction 4- Good- Adduction 4- Good- External Rotation 4 Good Internal Rotation 4 Good Left Flexion (L2) 3+ Fair+ Extension (S1) 4 Good Abduction 3+ Fair+ Adduction 4- Good- External Rotation 4- Good- Internal Rotation 4- Good- Knee Strength Knee Manual Muscle Testing Right Flexion (S2) 4 Good Extension (L3) 4 Good Left Flexion (S2) 4- Good- Extension (L3) 4- Good- Comments Left knee pain with MMT PT-OP-Q Treatments Start: 10/10/24 12:55 Freq: Status: Active Protocol: Document 01/25/25 13:03 PG (Rec: 01/25/25 14:04 PG Laptop) Cardio Equipment Recumbent Stepper (Sci-Fit) Duration (Minutes) 6 Resistance 3.5 Seat Position 9 Therapeutic Exercises Sitting Exercises Marches Sitting Exercise Name Added to HEP w HO Side bilateral Resistance lvl 4 tb around thighs Reps/Minutes x20 Comments cued for posture hip abduction Sitting Exercise Name Hip Abduction Side bilateral Resistance Lv 4 Reps/Minutes ( X 15 HEP) and one HEPminute hold LAQ Sitting Exercise Name LAQ - HEP review Side bilateral Resistance Lvl 3 Tb at ankles Equipment Used Pillow at R trunk to help with posture Reps/Minutes 2x10 each Comments cues for thigh at seat Standing Exercises Marches Equipment Used BUE on railing Reps/Minutes x20 Comments cued for posture, knee twrd bar Heel raise Side bilateral Equipment Used handrail Reps/Minutes X 12 Comments Lower heels to floor slowly Neuro Re-Education Treatment Balance Activities Hurdles Details Hurdles Equipment // bars Reps/Duration x2 down and back // bars Comments Fwrd with BUE support > BUE finger tip support. Cued for posture, weight shifting over stance leg, pushing through RUE to help with alignment. PT-OP-T Assessment and Plan Start: 10/10/24 12:55 Freq: Status: Active Protocol: Document 01/25/25 13:03 PG (Rec: 01/25/25 14:04 PG Laptop) Physical Therapy Assessment Impairments Impairments Activity Tolerance,Balance, Functional Activities, Functional Mobility,Gait,Pain, Posture,Strength,Tone, Transfers Goals Three Impairment Pt able to ambulate 306' with 4WW during 2MWT Transitions Rn Care Coordinator Goal (LTG) Pt to demonstrate ability to ambulate >700' using LRAD during a 6MWT to demonstrate improved activity tolerance 12/12/24: 2MWT /c 3WW: 332' LTG Duration 03/10/25 Two Impairment Pt presents with a severe increased risk of falls, per Dominguez score (29/56) Short Term Goal (STG) Pt to demonstrate a decrease in falls risk by improving her score on the Dominguez Balance Scale by at least six points to 35/56 STG Duration Met Long-Term Goal (LTG) Pt to demonstrate a decrease in falls risk by improving her score on the Dominguez Balance Scale by at least five points to 40/56 LTG Duration 03/10/25 One Impairment Pt does not have an appropriate home exercise program Short Term Goal (STG) Pt to be independent and compliant with an appropriate HEP STG Duration 02/08/25 Assessment Summary Assessment Continued to review and add HEP in seated that focuses on LE strengthening, cueing for posture and using pillow at right trunk for tactile cues to lift toward the left, encouraged pt to perform HEP infront of a mirror for visual feedback on posture and alignment. Continued working in the hurdles for hip flexion strengthening and increase time in SLS. Cued pt to perform a step to pattern and work on shifting weight over the stance leg. Pt had difficulty lifting RLE over hurdles due to lateral trunk leaning to the right and lack of weight shift over LLE when in stance phase. Physical Therapy Plan Frequency and Duration Frequency of Treatment 2x/Week Plan of Care Start Date 01/08/25 Plan of Care End Date 03/10/25 Therapeutic Interventions Therapeutic Interventions Balance Training,Canalithic Repositioning,Coordination Training,Gait Training,Home Exercise Program,Joint Mobilizations,Manual Therapy, Neuromuscular Re-education, Patient/Caregiver Education, Self-Care/Home Management,Soft Tissue Mobilization, Therapeutic Activities, Therapeutic Exercises, Vestibular Rehabilitation Next Visit Focus/Plan Next Note Type Treatment Note Next Visit Plan Next: recheck seated posture during HEP activities, review seated marches. Continue with standing LE strengthening. POC: LE strengthening, activity tolerance, balance training
--- NOTE | 2025-01-31 12:58 | PT.OTN ---
Current Diagnoses Cerebral infarction, unspecified (01/31/25) Unspecified osteoarthritis, unspecified site (01/31/25) Pain in left knee (01/31/25) Low back pain, unspecified (01/31/25) Unsteadiness on feet (01/31/25) Arthrodesis status (01/31/25) Physical Therapy Treatment Note PT-OP-A Visit Information Start: 10/10/24 12:55 Freq: Status: Active Protocol: Document 01/31/25 12:15 DCW (Rec: 01/31/25 12:57 DCW [id number]) Out-Patient Physical Therapy Visit Information Visit Information Visit Type Treatment Note Visit Start Time 12:15 Visit Stop Time 13:00 Visit Number 21 Number of WORK ORDER DETAILER Visits 0 Evaluation Information Evaluation Date 10/10/24 PT-OP-B Current Condition Start: 10/10/24 12:55 Freq: Status: Active Protocol: Document 10/10/24 12:15 DCW (Rec: 10/11/24 11:30 DCW [id number]) Current Condition History of Current Condition Onset Date Long-standing history Current Complaints Mid back pain, leg pain, declining activity tolerance History of Current Condition Pt is a 79 year old female with a long-standing history of back problems, prior CVA, balance issues, and falls. Pt is well known to this clinic, has been seen off and on multiple times over the last 10 years for various complaints, mainly due to her back. Pt has life-long history of scoliosis, as well as a R TKA ~20 years ago. Notes that she has probably had 29 different surgeries all over my body. Recently has been experiencing increased mid-to- low back pain, as well as pain radiating into her legs. Pt reports fairly significant fatigue with activity, limited gait, and LE weakness. PT-OP-C Subjective Start: 10/10/24 12:55 Freq: Status: Active Protocol: Document 01/31/25 12:15 DCW (Rec: 01/31/25 12:58 DCW [id number]) OP-PT Subjective Patient Comments Patient Comments Pt notes she is doing well today, no complaints PT-OP-D Balance Start: 10/10/24 12:55 Freq: Status: Active Protocol: Document 01/08/25 15:50 DCW (Rec: 01/08/25 16:14 DCW [id number]) Balance Tests Dominguez Balance Test Dominguez Balance Test Score 35/56 Dominguez Impairment Rating 20 to 39% Impaired (Score 34- 44) Dominguez Balance Assessment Evaluation Sitting to Standing Ability Independent w/out Hands Unsupported Stance Supervision- 2 minutes Sitting Unsupported, Feet on Floor Safely- 2 minutes Standing to Sitting Ability Safely, Minimal Hand Use Transfer Ability Safely, Hand Use Unsupported Stance- Eyes Closed Supervision, 10 seconds Unsupported Stance- Eyes Open Assist to attain, 15 secs Reaching Forward Standing Safely, 5 inches Pick- Up Object From Floor Supervision Look Behind Shoulder - Standing Turns Sideways Only Turning 360 Degrees Turns slowly, but safely Unsupported Stance, Alternating Feet on 2 Steps w/Minimum Assist Stair Unsupported Tandem Stance Small Step- 30 seconds Unilateral Leg Stance Lifts Leg/Unable to Hold Total Score Dominguez Total Score (out of 56 points) 36 Dominguez Impairment Rating 20 to 39% Impaired (Score 34- 44) PT-OP-E Functional Tests Start: 10/10/24 12:55 Freq: Status: Active Protocol: Document 01/08/25 15:50 DCW (Rec: 01/08/25 16:14 DCW [id number]) Functional Tests 2 Minute Walk Test Distance 301' Device Used 4WW Comments 2.51 ft/sec Five Times Sit to Stand Test Score 18.98 PT-OP-M Strength Start: 10/10/24 12:55 Freq: Status: Active Protocol: Document 10/10/24 12:15 DCW (Rec: 10/11/24 11:30 DCW [id number]) Hip Strength Hip Manual Muscle Testing Right Flexion (L2) 4 Good Extension (S1) 4+ Good+ Abduction 4- Good- Adduction 4- Good- External Rotation 4 Good Internal Rotation 4 Good Left Flexion (L2) 3+ Fair+ Extension (S1) 4 Good Abduction 3+ Fair+ Adduction 4- Good- External Rotation 4- Good- Internal Rotation 4- Good- Knee Strength Knee Manual Muscle Testing Right Flexion (S2) 4 Good Extension (L3) 4 Good Left Flexion (S2) 4- Good- Extension (L3) 4- Good- Comments Left knee pain with MMT PT-OP-Q Treatments Start: 10/10/24 12:55 Freq: Status: Active Protocol: Document 01/31/25 12:15 DCW (Rec: 01/31/25 12:57 DCW [id number]) Cardio Equipment Recumbent Stepper (Sci-Fit) Duration (Minutes) 6 Resistance 3.5 Seat Position 9 Gym Equipment Shuttle Recovery Unilateral Squats Details VCs to perform slowly Resistance 50# (two navy) Shuttle Recovery Platform Stable Reps/Time x10 each Bilateral Squats Details VC to perform slowly Resistance 87# (three navy) Shuttle Recovery Platform Stable Reps/Time 2x15, BP 148/80 Therapeutic Exercises Sitting Exercises hip abduction Sitting Exercise Name Hip Abduction Side bilateral Resistance Lv 4 Reps/Minutes x15 Neuro Re-Education Treatment Balance Activities retro stepping Details cga to minimal assist Reps/Duration 10 feet X 3 Comments hands above bars Hurdles Details Hurdles Equipment // bars Reps/Duration x2 down and back // bars Comments Forward and side-stepping, UE support Tandem Details Tandem Stance Equipment // bars, UE support Foam Details Toe Taps Surface AirEx Comments tap 6 step while standing on foam PT-OP-T Assessment and Plan Start: 10/10/24 12:55 Freq: Status: Active Protocol: Document 01/31/25 12:15 DCW (Rec: 01/31/25 12:57 DCW [id number]) Physical Therapy Assessment Impairments Impairments Activity Tolerance,Balance, Functional Activities, Functional Mobility,Gait,Pain, Posture,Strength,Tone, Transfers Goals Three Impairment Pt able to ambulate 306' with 4WW during 2MWT [employer] Analyst Goal (LTG) Pt to demonstrate ability to ambulate >700' using LRAD during a 6MWT to demonstrate improved activity tolerance 12/12/24: 2MWT /c 3WW: 332' LTG Duration 03/10/25 Two Impairment Pt presents with a severe increased risk of falls, per Dominguez score (29/56) Short Term Goal (STG) Pt to demonstrate a decrease in falls risk by improving her score on the Dominguez Balance Scale by at least six points to 35/56 STG Duration Met Penitentiary Goal (LTG) Pt to demonstrate a decrease in falls risk by improving her score on the Dominguez Balance Scale by at least five points to 40/56 LTG Duration 03/10/25 One Impairment Pt does not have an appropriate home exercise program Short Term Goal (STG) Pt to be independent and compliant with an appropriate HEP STG Duration 02/08/25 Assessment Summary Assessment Pt showing some good improvement with activity tolerance and balance, although is still limited by fatigue. Some improvements in leg strength. continue to focus on gait, LE strength, activity tolerance, and functional mobility. Physical Therapy Plan Frequency and Duration Frequency of Treatment 2x/Week Plan of Care Start Date 01/08/25 Plan of Care End Date 03/10/25 Therapeutic Interventions Therapeutic Interventions Balance Training,Canalithic Repositioning,Coordination Training,Gait Training,Home Exercise Program,Joint Mobilizations,Manual Therapy, Neuromuscular Re-education, Patient/Caregiver Education, Self-Care/Home Management,Soft Tissue Mobilization, Therapeutic Activities, Therapeutic Exercises, Vestibular Rehabilitation Next Visit Focus/Plan Next Note Type Treatment Note Next Visit Plan Next: recheck seated posture during HEP activities, review seated marches. Continue with standing LE strengthening. POC: LE strengthening, activity tolerance, balance training
--- NOTE | 2025-02-06 13:33 | PT-OP ANOTE ---
Patient reports she fell the day before yesterday, tripped over 3 wheeled walker walking around corner ( not using walker walker , it was in the way ) Patient reports she got up on her own. Patient reports she is sore between shoulders and neck, reports she hit her head. Patient reports Right shoulder ( which she plans to have surgery on,) is more sore. Patient reports she did not go to MD, reports feels normal, just feels like bruise. Patient verbalizes wants to do PT today. BP L UE 145/82 HR 66 BPM Seated start of session. PT, Francine Horner into session to assess and Patient has been advised to see MD. Patient reports she has an MD appointment Tuesday. Walking out of session Pt comments she was planning to make an appt for Tuesday, and does not have an appointment. Caregiver in to pick pulling machine operator patient and has made patient aware she can take her to the walk in clinic. Patient comments she would prefer to see her MD. Patient advised that she needs to have MD clear her to return to Physical therapy post having a fall and hitting her head.
--- NOTE | 2025-02-15 11:46 | PT.OTN ---
Current Diagnoses Cerebral infarction, unspecified (02/15/25) Unspecified osteoarthritis, unspecified site (02/15/25) Pain in left knee (02/15/25) Low back pain, unspecified (02/15/25) Unsteadiness on feet (02/15/25) Arthrodesis status (02/15/25) Physical Therapy Treatment Note PT-OP-A Visit Information Start: 10/10/24 12:55 Freq: Status: Active Protocol: Document 02/15/25 10:48 AB (Rec: 02/15/25 11:45 AB Laptop) Out-Patient Physical Therapy Visit Information Visit Information Visit Type Treatment Note Visit Start Time 10:57 Visit Stop Time 11:38 Visit Number 22 Number of PHOTOGRAPHIC ARTIST Visits 1 Evaluation Information Evaluation Date 10/10/24 PT-OP-B Current Condition Start: 10/10/24 12:55 Freq: Status: Active Protocol: Document 10/10/24 12:15 DCW (Rec: 10/11/24 11:30 DCW [id number]) Current Condition History of Current Condition Onset Date Long-standing history Current Complaints Mid back pain, leg pain, declining activity tolerance History of Current Pt is a 79 year old female with a long-standing history Condition of back problems, prior CVA, balance issues, and falls . Pt is well known to this clinic, has been seen off and on multiple times over the last 10 years for various complaints, mainly due to her back. Pt has life -long history of scoliosis, as well as a R TKA ~20 years ago. Notes that she has probably had 29 different surgeries all over my body. Recently has been experiencing increased mid-to-low back pain, as well as pain radiating into her legs. Pt reports fairly significant fatigue with activity, limited gait, and LE weakness. PT-OP-C Subjective Start: 10/10/24 12:55 Freq: Status: Active Protocol: Document 02/15/25 10:48 AB (Rec: 02/15/25 11:45 AB Laptop) OP-PT Subjective Patient Comments Patient Comments Patient reports she is good today, reports having no pain start of session. BP 160/86 HR 59. Patient reports she feels fine. Caregiver reports patient had CT scan everything good post fall and every thing is good. ER note, comments, Her exam is overall reassuring. PT-OP-D Balance Start: 10/10/24 12:55 Freq: Status: Active Protocol: Document 01/08/25 15:50 DCW (Rec: 01/08/25 16:14 DCW [id number]) Balance Tests Dominguez Balance Test Dominguez Balance Test 35/56 Score Dominguez Impairment 20 to 39% Impaired (Score 34-44) Rating Dominguez Balance Assessment Evaluation Sitting to Standing Independent w/out Hands Ability Unsupported Stance Supervision- 2 minutes Sitting Unsupported, Safely- 2 minutes Feet on Floor Standing to Sitting Safely, Minimal Hand Use Ability Transfer Ability Safely, Hand Use Unsupported Stance- Supervision, 10 seconds Eyes Closed Unsupported Stance- Assist to attain, 15 secs Eyes Open Reaching Forward Safely, 5 inches Standing Pick- Up Object From Supervision Floor Look Behind Shoulder Turns Sideways Only - Standing Turning 360 Degrees Turns slowly, but safely Unsupported Stance, 2 Steps w/Minimum Assist Alternating Feet on Stair Unsupported Tandem Small Step- 30 seconds Stance Unilateral Leg Lifts Leg/Unable to Hold Stance Total Score Dominguez Total Score ( 36 out of 56 points) Dominguez Impairment 20 to 39% Impaired (Score 34-44) Rating PT-OP-E Functional Tests Start: 10/10/24 12:55 Freq: Status: Active Protocol: Document 01/08/25 15:50 DCW (Rec: 01/08/25 16:14 DCW [id number]) Functional Tests 2 Minute Walk Test Distance 301' Device Used 4WW Comments 2.51 ft/sec Five Times Sit to Stand Test Score 18.98 PT-OP-M Strength Start: 10/10/24 12:55 Freq: Status: Active Protocol: Document 10/10/24 12:15 DCW (Rec: 10/11/24 11:30 DCW [id number]) Hip Strength Hip Manual Muscle Testing Right Flexion (L2) 4 Good Extension (S1) 4+ Good+ Abduction 4- Good- Adduction 4- Good- External Rotation 4 Good Internal Rotation 4 Good Left Flexion (L2) 3+ Fair+ Extension (S1) 4 Good Abduction 3+ Fair+ Adduction 4- Good- External Rotation 4- Good- Internal Rotation 4- Good- Knee Strength Knee Manual Muscle Testing Right Flexion (S2) 4 Good Extension (L3) 4 Good Left Flexion (S2) 4- Good- Extension (L3) 4- Good- Comments Left knee pain with MMT PT-OP-Q Treatments Start: 10/10/24 12:55 Freq: Status: Active Protocol: Document 02/15/25 10:48 AB (Rec: 02/15/25 11:45 AB Laptop) Gym Equipment Shuttle Recovery Bilateral Squats Details BP L UE 179/89 HR 51 Reps/Time No performed this day due to BP raised Shuttle Balance Red Details normal EVELYN and tandem Reps/Duration 4-5 min CGA Therapeutic Exercises Supine Exercises breathing from diaphragm in hooklying Supine Exercise Name LE's supported, post BP check when in position for shuttle recov Comments Post breathing from diahpragm BP 161/86 HR 67 L UE hooklying L UE Sitting Exercises Marches Sitting Exercise Added to HEP w HO Name Side bilateral Resistance lvl 4 tb around thighs Reps/Minutes x20 Comments cued for posture hip abduction Sitting Exercise Hip Abduction Name Resistance Lv 4 Reps/Minutes X15 and one one minute hold Comments Tactile cues to move L LE more STS Sitting Exercise with UE use Name Reps/Minutes X 10 normal EVELYN then X8L LE retro Comments tactile cues L LE to avoid hip add Standing Exercises Heel raise Side bilateral Equipment Used handrail Reps/Minutes X 12 Comments Lower heels to floor slowly PT-OP-T Assessment and Plan Start: 10/10/24 12:55 Freq: Status: Active Protocol: Document 02/15/25 10:48 AB (Rec: 02/15/25 11:45 AB Laptop) Physical Therapy Assessment Goals Three Impairment Pt able to ambulate 306' with 4WW during 2MWT Fci Goal (LTG) Pt to demonstrate ability to ambulate >700' using LRAD during a 6MWT to demonstrate improved activity tolerance 12/12/24: 2MWT /c 3WW: 332' LTG Duration 03/10/25 Two Impairment Pt presents with a severe increased risk of falls, per Dominguez score (29/56) Short Term Goal (STG Pt to demonstrate a decrease in falls risk by improving ) her score on the Dominguez Balance Scale by at least six points to 35/56 STG Duration Met Dynamics Ax Technical Architect Goal (LTG) Pt to demonstrate a decrease in falls risk by improving her score on the Dominguez Balance Scale by at least five points to 40/56 LTG Duration 03/10/25 One Impairment Pt does not have an appropriate home exercise program Short Term Goal (STG Pt to be independent and compliant with an appropriate ) HEP STG Duration 02/08/25 Assessment Summary Assessment Exercises limited by high BP this session, ie unable to perform shuttle recovery due to inc BP post seated/ standing exercise and balance work. Physical Therapy Plan Frequency and Duration Frequency of 2x/Week Treatment Plan of Care Start 01/08/25 Date Plan of Care End 03/10/25 Date Next Visit Focus/Plan Next Visit Plan Next: recheck seated posture during HEP activities, review seated marches. Continue with standing LE strengthening. POC: LE strengthening, activity tolerance, balance training
--- NOTE | 2025-02-15 16:39 | PT.OPPN ---
Current Diagnoses Cerebral infarction, unspecified (02/15/25) Unspecified osteoarthritis, unspecified site (02/15/25) Pain in left knee (02/15/25) Low back pain, unspecified (02/15/25) Unsteadiness on feet (02/15/25) Arthrodesis status (02/15/25) Physical Therapy Progress Note PT-OP-A Visit Information Start: 10/10/24 12:55 Freq: Status: Active Protocol: Document 02/15/25 10:48 AB (Rec: 02/15/25 11:45 AB Laptop) Out-Patient Physical Therapy Visit Information Visit Information Visit Type Treatment Note Visit Start Time 10:57 Visit Stop Time 11:38 Visit Number 22 Number of SENIOR CIVIL ENGINEER Visits 1 Evaluation Information Evaluation Date 10/10/24 PT-OP-B Current Condition Start: 10/10/24 12:55 Freq: Status: Active Protocol: Document 10/10/24 12:15 DCW (Rec: 10/11/24 11:30 DCW [id number]) Current Condition History of Current Condition Onset Date Long-standing history Current Complaints Mid back pain, leg pain, declining activity tolerance History of Current Pt is a 79 year old female with a long-standing history Condition of back problems, prior CVA, balance issues, and falls . Pt is well known to this clinic, has been seen off and on multiple times over the last 10 years for various complaints, mainly due to her back. Pt has life -long history of scoliosis, as well as a R TKA ~20 years ago. Notes that she has probably had 29 different surgeries all over my body. Recently has been experiencing increased mid-to-low back pain, as well as pain radiating into her legs. Pt reports fairly significant fatigue with activity, limited gait, and LE weakness. PT-OP-C Subjective Start: 10/10/24 12:55 Freq: Status: Active Protocol: Document 02/15/25 10:48 AB (Rec: 02/15/25 11:45 AB Laptop) OP-PT Subjective Patient Comments Patient Comments Patient reports she is good today, reports having no pain start of session. BP 160/86 HR 59. Patient reports she feels fine. Caregiver reports patient had CT scan everything good post fall and every thing is good. ER note, comments, Her exam is overall reassuring. PT-OP-D Balance Start: 10/10/24 12:55 Freq: Status: Active Protocol: Document 01/08/25 15:50 DCW (Rec: 01/08/25 16:14 DCW [id number]) Balance Tests Dominguez Balance Test Dominguez Balance Test 35/56 Score Dominguez Impairment 20 to 39% Impaired (Score 34-44) Rating Dominguez Balance Assessment Evaluation Sitting to Standing Independent w/out Hands Ability Unsupported Stance Supervision- 2 minutes Sitting Unsupported, Safely- 2 minutes Feet on Floor Standing to Sitting Safely, Minimal Hand Use Ability Transfer Ability Safely, Hand Use Unsupported Stance- Supervision, 10 seconds Eyes Closed Unsupported Stance- Assist to attain, 15 secs Eyes Open Reaching Forward Safely, 5 inches Standing Pick- Up Object From Supervision Floor Look Behind Shoulder Turns Sideways Only - Standing Turning 360 Degrees Turns slowly, but safely Unsupported Stance, 2 Steps w/Minimum Assist Alternating Feet on Stair Unsupported Tandem Small Step- 30 seconds Stance Unilateral Leg Lifts Leg/Unable to Hold Stance Total Score Dominguez Total Score ( 36 out of 56 points) Dominguez Impairment 20 to 39% Impaired (Score 34-44) Rating PT-OP-E Functional Tests Start: 10/10/24 12:55 Freq: Status: Active Protocol: Document 01/08/25 15:50 DCW (Rec: 01/08/25 16:14 DCW [id number]) Functional Tests 2 Minute Walk Test Distance 301' Device Used 4WW Comments 2.51 ft/sec Five Times Sit to Stand Test Score 18.98 PT-OP-M Strength Start: 10/10/24 12:55 Freq: Status: Active Protocol: Document 10/10/24 12:15 DCW (Rec: 10/11/24 11:30 DCW [id number]) Hip Strength Hip Manual Muscle Testing Right Flexion (L2) 4 Good Extension (S1) 4+ Good+ Abduction 4- Good- Adduction 4- Good- External Rotation 4 Good Internal Rotation 4 Good Left Flexion (L2) 3+ Fair+ Extension (S1) 4 Good Abduction 3+ Fair+ Adduction 4- Good- External Rotation 4- Good- Internal Rotation 4- Good- Knee Strength Knee Manual Muscle Testing Right Flexion (S2) 4 Good Extension (L3) 4 Good Left Flexion (S2) 4- Good- Extension (L3) 4- Good- Comments Left knee pain with MMT PT-OP-T Assessment and Plan Start: 10/10/24 12:55 Freq: Status: Active Protocol: Document 02/15/25 16:36 DCW (Rec: 02/15/25 16:39 DCW [id number]) Physical Therapy Assessment Impairments Impairments Activity Tolerance,Balance,Functional Activities, Functional Mobility,Gait,Pain,Posture,Strength,Tone, Transfers Goals Three Impairment Pt able to ambulate 306' with 4WW during 2MWT Adult Education Instructor Goal (LTG) Pt to demonstrate ability to ambulate >700' using LRAD during a 6MWT to demonstrate improved activity tolerance 12/12/24: 2MWT /c 3WW: 332' LTG Duration 03/10/25 Two Impairment Pt presents with a severe increased risk of falls, per Dominguez score (29/56) Short Term Goal (STG Pt to demonstrate a decrease in falls risk by improving ) her score on the Dominguez Balance Scale by at least six points to 35/56 STG Duration Met Adult Education Instructor Goal (LTG) Pt to demonstrate a decrease in falls risk by improving her score on the Dominguez Balance Scale by at least five points to 40/56 LTG Duration 03/10/25 One Impairment Pt does not have an appropriate home exercise program Short Term Goal (STG Pt to be independent and compliant with an appropriate ) HEP STG Duration 02/08/25 Assessment Summary Assessment Pt overall showing improvements with balance and activity tolerance, some slight increases in strength. Pt was quite limited, however, by increased BP today. Will continue to monitor as the focus remains on improving Dominguez and DGI scores, as well as improving activity tolerance and LE strength. Physical Therapy Plan Frequency and Duration Frequency of 2x/Week Treatment Plan of Care Start 01/08/25 Date Plan of Care End 03/10/25 Date Therapeutic Interventions Therapeutic Balance Training,Canalithic Repositioning,Coordination Interventions Training,Gait Training,Home Exercise Program,Joint Mobilizations,Manual Therapy,Neuromuscular Re-education ,Patient/Caregiver Education,Self-Care/Home Management, Soft Tissue Mobilization,Therapeutic Activities, Therapeutic Exercises,Vestibular Rehabilitation Next Visit Focus/Plan Next Note Type Treatment Note Next Visit Plan Next: recheck seated posture during HEP activities, review seated marches. Continue with standing LE strengthening. POC: LE strengthening, activity tolerance, balance training
--- NOTE | 2025-02-19 17:32 | PT-OP ANOTE ---
Pt did not show to her 02/19/25 appointment. Pt was phoned, and a voicemail was left noting missed appointment and reminder of her next scheduled visit.
--- NOTE | 2025-02-21 13:48 | PT.OTN ---
Current Diagnoses Cerebral infarction, unspecified (02/21/25) Unspecified osteoarthritis, unspecified site (02/21/25) Pain in left knee (02/21/25) Low back pain, unspecified (02/21/25) Unsteadiness on feet (02/21/25) Arthrodesis status (02/21/25) Physical Therapy Treatment Note PT-OP-A Visit Information Start: 10/10/24 12:55 Freq: Status: Active Protocol: Document 02/21/25 13:06 SP (Rec: 02/21/25 13:50 SP [id number]) Out-Patient Physical Therapy Visit Information Visit Information Visit Type Treatment Note Visit Start Time 13:10 Visit Stop Time 13:48 Visit Number 23 Number of OPERATOR CAVITY PUMP Visits 2 Evaluation Information Evaluation Date 10/10/24 Precautions Precautions monitor BP pre-ex, during ex, post ex PT-OP-B Current Condition Start: 10/10/24 12:55 Freq: Status: Active Protocol: Document 10/10/24 12:15 DCW (Rec: 10/11/24 11:30 DCW [id number]) Current Condition History of Current Condition Onset Date Long-standing history Current Complaints Mid back pain, leg pain, declining activity tolerance History of Current Pt is a 79 year old female with a long-standing history Condition of back problems, prior CVA, balance issues, and falls . Pt is well known to this clinic, has been seen off and on multiple times over the last 10 years for various complaints, mainly due to her back. Pt has life -long history of scoliosis, as well as a R TKA ~20 years ago. Notes that she has probably had 29 different surgeries all over my body. Recently has been experiencing increased mid-to-low back pain, as well as pain radiating into her legs. Pt reports fairly significant fatigue with activity, limited gait, and LE weakness. PT-OP-C Subjective Start: 10/10/24 12:55 Freq: Status: Active Protocol: Document 02/21/25 13:06 SP (Rec: 02/21/25 13:50 SP [id number]) OP-PT Subjective Patient Comments Patient Comments Pt little late coming in from sitting in car, attended for all her appts at once so sat in car before today's appt but came in late 10 min. PT-OP-D Balance Start: 10/10/24 12:55 Freq: Status: Active Protocol: Document 01/08/25 15:50 DCW (Rec: 01/08/25 16:14 DCW [id number]) Balance Tests Dominguez Balance Test Dominguez Balance Test 35/56 Score Dominguez Impairment 20 to 39% Impaired (Score 34-44) Rating Dominguez Balance Assessment Evaluation Sitting to Standing Independent w/out Hands Ability Unsupported Stance Supervision- 2 minutes Sitting Unsupported, Safely- 2 minutes Feet on Floor Standing to Sitting Safely, Minimal Hand Use Ability Transfer Ability Safely, Hand Use Unsupported Stance- Supervision, 10 seconds Eyes Closed Unsupported Stance- Assist to attain, 15 secs Eyes Open Reaching Forward Safely, 5 inches Standing Pick- Up Object From Supervision Floor Look Behind Shoulder Turns Sideways Only - Standing Turning 360 Degrees Turns slowly, but safely Unsupported Stance, 2 Steps w/Minimum Assist Alternating Feet on Stair Unsupported Tandem Small Step- 30 seconds Stance Unilateral Leg Lifts Leg/Unable to Hold Stance Total Score Dominguez Total Score ( 36 out of 56 points) Dominguez Impairment 20 to 39% Impaired (Score 34-44) Rating PT-OP-E Functional Tests Start: 10/10/24 12:55 Freq: Status: Active Protocol: Document 01/08/25 15:50 DCW (Rec: 01/08/25 16:14 DCW [id number]) Functional Tests 2 Minute Walk Test Distance 301' Device Used 4WW Comments 2.51 ft/sec Five Times Sit to Stand Test Score 18.98 PT-OP-M Strength Start: 10/10/24 12:55 Freq: Status: Active Protocol: Document 10/10/24 12:15 DCW (Rec: 10/11/24 11:30 DCW [id number]) Hip Strength Hip Manual Muscle Testing Right Flexion (L2) 4 Good Extension (S1) 4+ Good+ Abduction 4- Good- Adduction 4- Good- External Rotation 4 Good Internal Rotation 4 Good Left Flexion (L2) 3+ Fair+ Extension (S1) 4 Good Abduction 3+ Fair+ Adduction 4- Good- External Rotation 4- Good- Internal Rotation 4- Good- Knee Strength Knee Manual Muscle Testing Right Flexion (S2) 4 Good Extension (L3) 4 Good Left Flexion (S2) 4- Good- Extension (L3) 4- Good- Comments Left knee pain with MMT PT-OP-Q Treatments Start: 10/10/24 12:55 Freq: Status: Active Protocol: Document 02/21/25 13:06 SP (Rec: 02/21/25 13:50 SP [id number]) Gym Equipment Shuttle Recovery Unilateral Squats Details VCs to perform slowly- reports good challenge resistance Resistance 50# (two navy) Shuttle Recovery Stable Platform Reps/Time x10 L , 20 reps R Bilateral Squats Details BP L UE arrival BP 148/87 HR 67 pre, BP 128/76 HR 64 Post Resistance 87# (easy) > 100# 4 navy bands Shuttle Recovery Stable Platform Reps/Time x20 reps total Therapeutic Exercises Sitting Exercises Lateral trunk Lean stretch Sitting Exercise seated R quadratus lumborum stretch- provided HO Name Side right Reps/Minutes 30 sec X 3 Comments to elongate then L SB, L arm dangle to L side of chair Gait Training Gait Activity posture, techique Level of Assistance 3WW walk owen Comments cues to relax shoulders, pursed lip breathing Neuro Re-Education Treatment Balance Activities retro stepping Details cga to minimal assist Reps/Duration 10 feet X 3 Comments hands above bars Hurdles Details Hurdles Surface CG-Min A Equipment // bars Reps/Duration x2 down and back // bars Comments Forward and side-stepping, support 1-2 UE Tandem Details Tandem Stance Surface foam Equipment // bars, RUE support Comments intermittent cues for elongated posture, even BLE WB, trunk lean L midline Min A Foam Details Toe Taps Surface standing on AirEx Equipment //bar support on R, 6 step Comments cued for upright and L trunk lean midline. CG- Min A PT-OP-T Assessment and Plan Start: 10/10/24 12:55 Freq: Status: Active Protocol: Document 02/21/25 13:06 SP (Rec: 02/21/25 13:50 SP [id number]) Physical Therapy Assessment Goals Three Impairment Pt able to ambulate 306' with 4WW during 2MWT Senior Care Goal (LTG) Pt to demonstrate ability to ambulate >700' using LRAD during a 6MWT to demonstrate improved activity tolerance 12/12/24: 2MWT /c 3WW: 332' LTG Duration 03/10/25 Two Impairment Pt presents with a severe increased risk of falls, per Dominguez score (29/56) Short Term Goal (STG Pt to demonstrate a decrease in falls risk by improving ) her score on the Dominguez Balance Scale by at least six points to 35/56 STG Duration Met Senior Care Goal (LTG) Pt to demonstrate a decrease in falls risk by improving her score on the Dominguez Balance Scale by at least five points to 40/56 LTG Duration 03/10/25 One Impairment Pt does not have an appropriate home exercise program Short Term Goal (STG Pt to be independent and compliant with an appropriate ) HEP STG Duration 02/08/25 Assessment Summary Assessment Pt good effort during ther ex for strengthening. Cues elongated posture with L trunk lean midline, challenging maintain self, needs UE support R>L to support for midline during standing activities. She responded well and works hard self corrections with cuing throughout tx activities, tires need seated rest bwtn activities due to back gets sore. Physical Therapy Plan Frequency and Duration Frequency of 2x/Week Treatment Plan of Care Start 01/08/25 Date Plan of Care End 03/10/25 Date Therapeutic Interventions Therapeutic Balance Training,Canalithic Repositioning,Coordination Interventions Training,Gait Training,Home Exercise Program,Joint Mobilizations,Manual Therapy,Neuromuscular Re-education ,Patient/Caregiver Education,Self-Care/Home Management, Soft Tissue Mobilization,Therapeutic Activities, Therapeutic Exercises,Vestibular Rehabilitation Next Visit Focus/Plan Next Note Type Treatment Note Next Visit Plan Next: recheck seated posture during HEP activities, review seated marches. Continue with standing LE strengthening, cues for postural corections. POC: LE strengthening, activity tolerance, balance training
--- NOTE | 2025-02-25 13:45 | PT.OTN ---
Current Diagnoses Cerebral infarction, unspecified (02/25/25) Unspecified osteoarthritis, unspecified site (02/25/25) Pain in left knee (02/25/25) Low back pain, unspecified (02/25/25) Unsteadiness on feet (02/25/25) Arthrodesis status (02/25/25) Physical Therapy Treatment Note PT-OP-A Visit Information Start: 10/10/24 12:55 Freq: Status: Active Protocol: Document 02/25/25 13:05 SP (Rec: 02/25/25 13:53 SP [id number]) Out-Patient Physical Therapy Visit Information Visit Information Visit Type Treatment Note Visit Start Time 13:05 Visit Stop Time 13:45 Visit Number 24 Number of CANCER GENETIC COUNSELOR Visits 3 Evaluation Information Evaluation Date 10/10/24 Precautions Precautions monitor BP pre-ex, during ex, post ex PT-OP-B Current Condition Start: 10/10/24 12:55 Freq: Status: Active Protocol: Document 10/10/24 12:15 DCW (Rec: 10/11/24 11:30 DCW [id number]) Current Condition History of Current Condition Onset Date Long-standing history Current Complaints Mid back pain, leg pain, declining activity tolerance History of Current Pt is a 79 year old female with a long-standing history Condition of back problems, prior CVA, balance issues, and falls . Pt is well known to this clinic, has been seen off and on multiple times over the last 10 years for various complaints, mainly due to her back. Pt has life -long history of scoliosis, as well as a R TKA ~20 years ago. Notes that she has probably had 29 different surgeries all over my body. Recently has been experiencing increased mid-to-low back pain, as well as pain radiating into her legs. Pt reports fairly significant fatigue with activity, limited gait, and LE weakness. PT-OP-C Subjective Start: 10/10/24 12:55 Freq: Status: Active Protocol: Document 02/25/25 13:05 SP (Rec: 02/25/25 13:53 SP [id number]) OP-PT Subjective Patient Comments Patient Comments Pt reported felt ok after last tx. She states mainly focused on speech exercises vs PT. She reports today was her last day with speech, only has PT now. PT-OP-D Balance Start: 10/10/24 12:55 Freq: Status: Active Protocol: Document 01/08/25 15:50 DCW (Rec: 01/08/25 16:14 DCW [id number]) Balance Tests Dominguez Balance Test Dominguez Balance Test 35/56 Score Dominguez Impairment 20 to 39% Impaired (Score 34-44) Rating Dominguez Balance Assessment Evaluation Sitting to Standing Independent w/out Hands Ability Unsupported Stance Supervision- 2 minutes Sitting Unsupported, Safely- 2 minutes Feet on Floor Standing to Sitting Safely, Minimal Hand Use Ability Transfer Ability Safely, Hand Use Unsupported Stance- Supervision, 10 seconds Eyes Closed Unsupported Stance- Assist to attain, 15 secs Eyes Open Reaching Forward Safely, 5 inches Standing Pick- Up Object From Supervision Floor Look Behind Shoulder Turns Sideways Only - Standing Turning 360 Degrees Turns slowly, but safely Unsupported Stance, 2 Steps w/Minimum Assist Alternating Feet on Stair Unsupported Tandem Small Step- 30 seconds Stance Unilateral Leg Lifts Leg/Unable to Hold Stance Total Score Dominguez Total Score ( 36 out of 56 points) Dominguez Impairment 20 to 39% Impaired (Score 34-44) Rating PT-OP-E Functional Tests Start: 10/10/24 12:55 Freq: Status: Active Protocol: Document 01/08/25 15:50 DCW (Rec: 01/08/25 16:14 DCW [id number]) Functional Tests 2 Minute Walk Test Distance 301' Device Used 4WW Comments 2.51 ft/sec Five Times Sit to Stand Test Score 18.98 PT-OP-M Strength Start: 10/10/24 12:55 Freq: Status: Active Protocol: Document 10/10/24 12:15 DCW (Rec: 10/11/24 11:30 DCW [id number]) Hip Strength Hip Manual Muscle Testing Right Flexion (L2) 4 Good Extension (S1) 4+ Good+ Abduction 4- Good- Adduction 4- Good- External Rotation 4 Good Internal Rotation 4 Good Left Flexion (L2) 3+ Fair+ Extension (S1) 4 Good Abduction 3+ Fair+ Adduction 4- Good- External Rotation 4- Good- Internal Rotation 4- Good- Knee Strength Knee Manual Muscle Testing Right Flexion (S2) 4 Good Extension (L3) 4 Good Left Flexion (S2) 4- Good- Extension (L3) 4- Good- Comments Left knee pain with MMT PT-OP-Q Treatments Start: 10/10/24 12:55 Freq: Status: Active Protocol: Document 02/25/25 13:05 SP (Rec: 02/25/25 13:53 SP [id number]) Gym Equipment Shuttle Recovery Unilateral Squats Details VCs to perform slower pacing Resistance 50# (two navy) Shuttle Recovery Stable Platform Reps/Time x10 L , 20 reps R Bilateral Squats Details wtih activity: BP 143/83/76 HR 55, Resistance 100# 4 navy bands Shuttle Recovery Stable Platform Reps/Time x20 reps Therapeutic Exercises Sitting Exercises Marches Sitting Exercise reviewed HEP with HO Name Side bilateral Resistance lvl 4 tb around thighs Reps/Minutes x20 Comments cued for posture Lateral trunk Lean stretch Sitting Exercise seated R quadratus lumborum stretch- reviewed with HO Name Side right Reps/Minutes 15 reps Comments to elongate then L SB, L arm dangle to L side of chair toe raises Sitting Exercise reviewed HEP with HO Name Side bilateral Reps/Minutes 2x 10 reps Comments Pt ed rationale of this ex to avoid tripping over feet hip abduction Sitting Exercise Hip Abduction- reviewed HEP with HO Name Resistance Lv 4 dark blue around thighs Reps/Minutes x20 Comments Tactile cues to move L LE more Neuro Re-Education Treatment Balance Activities Balloon Volley Details Balloon Volley Surface AirEx Equipment L UE on //bar Comments cues for increase EVELYN, elongated posture midline improved posture volley midline to cross body with RUE. Tandem Details Tandem Stance Surface foam Equipment // bars inside, no UE support Reps/Duration 3sec each foot position many reps Comments intermittent cues for elongated posture, even BLE WB, trunk lean L midline CG/Min A Self-Care/Home Management Treatment Education Patient Education Safety Other Education Safety cues for proper hand placement and lock 3WW brakes prior to standing and sitting to reduce risk for falls. PT-OP-T Assessment and Plan Start: 10/10/24 12:55 Freq: Status: Active Protocol: Document 02/25/25 13:05 SP (Rec: 02/25/25 13:53 SP [id number]) Physical Therapy Assessment Goals Three Impairment Pt able to ambulate 306' with 4WW during 2MWT Prison Goal (LTG) Pt to demonstrate ability to ambulate >700' using LRAD during a 6MWT to demonstrate improved activity tolerance 12/12/24: 2MWT /c 3WW: 332' LTG Duration 03/10/25 Two Impairment Pt presents with a severe increased risk of falls, per Dominguez score (29/56) Short Term Goal (STG Pt to demonstrate a decrease in falls risk by improving ) her score on the Dominguez Balance Scale by at least six points to 35/56 STG Duration Met Controls Designer Goal (LTG) Pt to demonstrate a decrease in falls risk by improving her score on the Dominguez Balance Scale by at least five points to 40/56 LTG Duration 03/10/25 One Impairment Pt does not have an appropriate home exercise program Short Term Goal (STG Pt to be independent and compliant with an appropriate ) HEP 02/25/25: resisted clamshell and marching TB #4, LAQ AROM, heel& toe raises. STG Duration 02/08/25 updated 02/25/25 Assessment Summary Assessment Pt works hard during ther ex, tolerated increased resistance on shuttle recovery. She requires RUE support for lateral stepping activities and LE during balloon volley improved postural corrections hitting with RUE. Pt states doesn't feel she is ready to continue on her own so hoping PT will extend her PT in 2 visits. Physical Therapy Plan Frequency and Duration Frequency of 2x/Week Treatment Plan of Care Start 01/08/25 Date Plan of Care End 03/10/25 Date Therapeutic Interventions Therapeutic Balance Training,Canalithic Repositioning,Coordination Interventions Training,Gait Training,Home Exercise Program,Joint Mobilizations,Manual Therapy,Neuromuscular Re-education ,Patient/Caregiver Education,Self-Care/Home Management, Soft Tissue Mobilization,Therapeutic Activities, Therapeutic Exercises,Vestibular Rehabilitation Next Visit Focus/Plan Next Note Type Treatment Note Next Visit Plan PN/POC in 2 visits, Next: Continue emphasis on spinal alignment, strength, postural corrections with all activity. POC: LE strengthening, activity tolerance, balance training
--- NOTE | 2025-02-27 17:06 | PT.OTN ---
Addendum entered and electronically signed by Santi No, PT 02/27/25 17:10: PT direct supervision and direction to student PT Kurt Munoz throughout session Original Note: Current Diagnoses Cerebral infarction, unspecified (02/27/25) Unspecified osteoarthritis, unspecified site (02/27/25) Pain in left knee (02/27/25) Low back pain, unspecified (02/27/25) Unsteadiness on feet (02/27/25) Arthrodesis status (02/27/25) Physical Therapy Treatment Note PT-OP-A Visit Information Start: 10/10/24 12:55 Freq: Status: Active Protocol: Document 02/27/25 14:31 LFG (Rec: 02/27/25 15:18 LFG [id number]) Out-Patient Physical Therapy Visit Information Visit Information Visit Type Treatment Note Visit Start Time 14:31 Visit Stop Time 15:16 Visit Number 25 Number of BOX TOE CUTTER Visits 0 PT-OP-B Current Condition Start: 10/10/24 12:55 Freq: Status: Active Protocol: Document 10/10/24 12:15 DCW (Rec: 10/11/24 11:30 DCW [id number]) Current Condition History of Current Condition Onset Date Long-standing history Current Complaints Mid back pain, leg pain, declining activity tolerance History of Current Pt is a 79 year old female with a long-standing history Condition of back problems, prior CVA, balance issues, and falls . Pt is well known to this clinic, has been seen off and on multiple times over the last 10 years for various complaints, mainly due to her back. Pt has life -long history of scoliosis, as well as a R TKA ~20 years ago. Notes that she has probably had 29 different surgeries all over my body. Recently has been experiencing increased mid-to-low back pain, as well as pain radiating into her legs. Pt reports fairly significant fatigue with activity, limited gait, and LE weakness. PT-OP-C Subjective Start: 10/10/24 12:55 Freq: Status: Active Protocol: Document 02/27/25 14:31 LFG (Rec: 02/27/25 15:18 LFG [id number]) OP-PT Subjective Patient Comments Patient Comments Pt reports feeling fine today and states that her back is fine as well. PT-OP-D Balance Start: 10/10/24 12:55 Freq: Status: Active Protocol: Document 01/08/25 15:50 DCW (Rec: 01/08/25 16:14 DCW [id number]) Balance Tests Dominguez Balance Test Dominguez Balance Test 35/56 Score Dominguez Impairment 20 to 39% Impaired (Score 34-44) Rating Dominguez Balance Assessment Evaluation Sitting to Standing Independent w/out Hands Ability Unsupported Stance Supervision- 2 minutes Sitting Unsupported, Safely- 2 minutes Feet on Floor Standing to Sitting Safely, Minimal Hand Use Ability Transfer Ability Safely, Hand Use Unsupported Stance- Supervision, 10 seconds Eyes Closed Unsupported Stance- Assist to attain, 15 secs Eyes Open Reaching Forward Safely, 5 inches Standing Pick- Up Object From Supervision Floor Look Behind Shoulder Turns Sideways Only - Standing Turning 360 Degrees Turns slowly, but safely Unsupported Stance, 2 Steps w/Minimum Assist Alternating Feet on Stair Unsupported Tandem Small Step- 30 seconds Stance Unilateral Leg Lifts Leg/Unable to Hold Stance Total Score Dominguez Total Score ( 36 out of 56 points) Dominguez Impairment 20 to 39% Impaired (Score 34-44) Rating PT-OP-E Functional Tests Start: 10/10/24 12:55 Freq: Status: Active Protocol: Document 01/08/25 15:50 DCW (Rec: 01/08/25 16:14 DCW [id number]) Functional Tests 2 Minute Walk Test Distance 301' Device Used 4WW Comments 2.51 ft/sec Five Times Sit to Stand Test Score 18.98 PT-OP-M Strength Start: 10/10/24 12:55 Freq: Status: Active Protocol: Document 10/10/24 12:15 DCW (Rec: 10/11/24 11:30 DCW [id number]) Hip Strength Hip Manual Muscle Testing Right Flexion (L2) 4 Good Extension (S1) 4+ Good+ Abduction 4- Good- Adduction 4- Good- External Rotation 4 Good Internal Rotation 4 Good Left Flexion (L2) 3+ Fair+ Extension (S1) 4 Good Abduction 3+ Fair+ Adduction 4- Good- External Rotation 4- Good- Internal Rotation 4- Good- Knee Strength Knee Manual Muscle Testing Right Flexion (S2) 4 Good Extension (L3) 4 Good Left Flexion (S2) 4- Good- Extension (L3) 4- Good- Comments Left knee pain with MMT PT-OP-Q Treatments Start: 10/10/24 12:55 Freq: Status: Active Protocol: Document 02/27/25 14:31 LFG (Rec: 02/27/25 15:37 LFG [id number]) Gym Equipment Shuttle Recovery Unilateral Squats Details cues to perform slower pacing, align knee Resistance 50, 37# (two navy) Shuttle Recovery Stable Platform Reps/Time 50 too heavy for SL reduced weight Bilateral Squats Details cues to slow down, align knees Resistance 50, 75# 4 navy bands Shuttle Recovery Stable Platform Reps/Time pt struggling with increased resistance Therapeutic Exercises Supine Exercises Low back rotations Supine Exercise Name LE together rocking side to side Comments held end ROM few times with emphasis in breathing, limited going L Hip abductions Supine Exercise Name Hip abd Side bilateral Resistance L2 Comments cues to increase ROM and hold, LLE lacking engagement Glute bridge Supine Exercise Name Glute bridge - attempted Reps/Minutes x12 Comments very low ROM, R foot inverts Sidelying Exercises Clamshells Sidelying Exercise Clamshells - attempted Name Side left Reps/Minutes x8 Comments very low ROM, significantly Sitting Exercises LAQ Sitting Exercise LAQ Name Side bilateral Resistance 2, 4# ankle weight Equipment Used used hands behind trunk to maintain upright posture Comments cues for full extension Neuro Re-Education Treatment Balance Activities Weight shifting Details Shifting weight side to side - CGA/minimal Equipment mat table for supp Comments minimal weight shift to her L Tandem Details Tandem Stance - CGA/minimal Equipment mat table for supp Reps/Duration 20 sec Comments cues for tall posture, stopped after initial 20 sec due to reports of low back pain Self-Care/Home Management Treatment Education Patient Education Home Exercise Program Caregiver Education Pt asked what exercise she should be doing the most at home. Recommended she try clamshells at home. Activities Self-Care/Home Clamshells Management Activities PT-OP-T Assessment and Plan Start: 10/10/24 12:55 Freq: Status: Active Protocol: Document 02/27/25 14:31 LFG (Rec: 02/27/25 15:37 LFG [id number]) Physical Therapy Assessment Goals Three Impairment Pt able to ambulate 306' with 4WW during 2MWT Senior Care Goal (LTG) Pt to demonstrate ability to ambulate >700' using LRAD during a 6MWT to demonstrate improved activity tolerance 12/12/24: 2MWT /c 3WW: 332' LTG Duration 03/10/25 Two Impairment Pt presents with a severe increased risk of falls, per Dominguez score (29/56) Short Term Goal (STG Pt to demonstrate a decrease in falls risk by improving ) her score on the Dominguez Balance Scale by at least six points to 35/56 STG Duration Met Senior Care Goal (LTG) Pt to demonstrate a decrease in falls risk by improving her score on the Dominguez Balance Scale by at least five points to 40/56 LTG Duration 03/10/25 One Impairment Pt does not have an appropriate home exercise program Short Term Goal (STG Pt to be independent and compliant with an appropriate ) HEP 02/25/25: resisted clamshell and marching TB #4, LAQ AROM, heel& toe raises. STG Duration 02/08/25 updated 02/25/25 Assessment Summary Assessment Patient demonstrated significant weakness with lower resistance than what she has been doing her last few visits today with the shuttle recovery in both bilateral and single LE. Pt lacked significant ROM and proper muscle recruitment in glute bridges and clamshells attempts. Pt reports that her LLE is significantly weaker than her RLE and a need more balance training. Due for a PN next visit, recommend retesting objective tests and measures. Physical Therapy Plan Frequency and Duration Frequency of 2x/Week Treatment Plan of Care Start 01/08/25 Date Plan of Care End 03/10/25 Date Therapeutic Interventions Therapeutic Balance Training,Canalithic Repositioning,Coordination Interventions Training,Gait Training,Home Exercise Program,Joint Mobilizations,Manual Therapy,Neuromuscular Re-education ,Patient/Caregiver Education,Self-Care/Home Management, Soft Tissue Mobilization,Therapeutic Activities, Therapeutic Exercises,Vestibular Rehabilitation Next Visit Focus/Plan Next Note Type Treatment Note Next Visit Plan PN/POC next visit. Retesting objective tests/measures Next: Continue emphasis on spinal alignment, strength, postural corrections with all activity. POC: LE strengthening, activity tolerance, balance training
--- NOTE | 2025-03-04 18:05 | PT.OTN ---
Addendum entered and electronically signed by Santi No, PT 03/05/25 09:38: PT direct supervision and direction to student PT Kurt Munoz throughout session Original Note: Current Diagnoses Cerebral infarction, unspecified (03/04/25) Unspecified osteoarthritis, unspecified site (03/04/25) Pain in left knee (03/04/25) Low back pain, unspecified (03/04/25) Unsteadiness on feet (03/04/25) Arthrodesis status (03/04/25) Physical Therapy Treatment Note PT-OP-A Visit Information Start: 10/10/24 12:55 Freq: Status: Active Protocol: Document 03/04/25 17:00 LFG (Rec: 03/04/25 10:12 LFG Laptop) Out-Patient Physical Therapy Visit Information Visit Information Visit Type Progress Note Visit Start Time 17:00 Visit Stop Time 17:40 Visit Number 26 Number of GROUP PRACTICE PEDIATRICIAN Visits 0 PT-OP-B Current Condition Start: 10/10/24 12:55 Freq: Status: Active Protocol: Document 10/10/24 12:15 DCW (Rec: 10/11/24 11:30 DCW [id number]) Current Condition History of Current Condition Onset Date Long-standing history Current Complaints Mid back pain, leg pain, declining activity tolerance History of Current Pt is a 79 year old female with a long-standing history Condition of back problems, prior CVA, balance issues, and falls . Pt is well known to this clinic, has been seen off and on multiple times over the last 10 years for various complaints, mainly due to her back. Pt has life -long history of scoliosis, as well as a R TKA ~20 years ago. Notes that she has probably had 29 different surgeries all over my body. Recently has been experiencing increased mid-to-low back pain, as well as pain radiating into her legs. Pt reports fairly significant fatigue with activity, limited gait, and LE weakness. PT-OP-C Subjective Start: 10/10/24 12:55 Freq: Status: Active Protocol: Document 03/04/25 17:00 LFG (Rec: 03/04/25 10:12 LFG Laptop) OP-PT Subjective Patient Comments Patient Comments Pt reports feeling fine today, says she had a great weekend doing nothing, besides cleaning garage. PT-OP-D Balance Start: 10/10/24 12:55 Freq: Status: Active Protocol: Document 01/08/25 15:50 DCW (Rec: 01/08/25 16:14 DCW [id number]) Balance Tests Dominguez Balance Test Dominguez Balance Test 35/56 Score Dominguez Impairment 20 to 39% Impaired (Score 34-44) Rating Dominguez Balance Assessment Evaluation Sitting to Standing Independent w/out Hands Ability Unsupported Stance Supervision- 2 minutes Sitting Unsupported, Safely- 2 minutes Feet on Floor Standing to Sitting Safely, Minimal Hand Use Ability Transfer Ability Safely, Hand Use Unsupported Stance- Supervision, 10 seconds Eyes Closed Unsupported Stance- Assist to attain, 15 secs Eyes Open Reaching Forward Safely, 5 inches Standing Pick- Up Object From Supervision Floor Look Behind Shoulder Turns Sideways Only - Standing Turning 360 Degrees Turns slowly, but safely Unsupported Stance, 2 Steps w/Minimum Assist Alternating Feet on Stair Unsupported Tandem Small Step- 30 seconds Stance Unilateral Leg Lifts Leg/Unable to Hold Stance Total Score Dominguez Total Score ( 36 out of 56 points) Dominguez Impairment 20 to 39% Impaired (Score 34-44) Rating PT-OP-E Functional Tests Start: 10/10/24 12:55 Freq: Status: Active Protocol: Document 03/04/25 17:00 LFG (Rec: 03/04/25 17:06 LFG Laptop) Functional Tests 2 Minute Walk Test Distance 342 Device Used 4 WW Comments 2.85 ft/sec Five Times Sit to Stand Test Score 17.07 PT-OP-M Strength Start: 10/10/24 12:55 Freq: Status: Active Protocol: Document 10/10/24 12:15 DCW (Rec: 10/11/24 11:30 DCW [id number]) Hip Strength Hip Manual Muscle Testing Right Flexion (L2) 4 Good Extension (S1) 4+ Good+ Abduction 4- Good- Adduction 4- Good- External Rotation 4 Good Internal Rotation 4 Good Left Flexion (L2) 3+ Fair+ Extension (S1) 4 Good Abduction 3+ Fair+ Adduction 4- Good- External Rotation 4- Good- Internal Rotation 4- Good- Knee Strength Knee Manual Muscle Testing Right Flexion (S2) 4 Good Extension (L3) 4 Good Left Flexion (S2) 4- Good- Extension (L3) 4- Good- Comments Left knee pain with MMT PT-OP-Q Treatments Start: 10/10/24 12:55 Freq: Status: Active Protocol: Document 03/04/25 17:00 LFG (Rec: 03/04/25 10:12 LFG Laptop) Gym Equipment Shuttle Recovery Bilateral Squats Details cues to slow down, align knees Resistance 67# 4 navy bands Shuttle Recovery Stable Platform Reps/Time cues for knee valgus, drive heels Therapeutic Exercises Supine Exercises Hip abductions Supine Exercise Name Hip abd Side bilateral Resistance L2 Reps/Minutes x30 Comments increase resistance next time Glute bridge Supine Exercise Name Glute bridge - attempted Reps/Minutes 2x15 Comments very low ROM Sitting Exercises STS Sitting Exercise no UE use Name Equipment Used mat table Reps/Minutes 1x15, 1x10 LAQ Sitting Exercise LAQ - w/ blue ball between feet Name Side bilateral Resistance 0, 4#, 5# ankle weight Equipment Used used hands behind trunk to maintain upright posture Reps/Minutes 3x20 Comments cues for full extension, slow down ecc PT-OP-T Assessment and Plan Start: 10/10/24 12:55 Freq: Status: Active Protocol: Document 03/04/25 17:00 LFG (Rec: 03/04/25 10:12 LFG Laptop) Physical Therapy Assessment Goals Three Impairment Pt able to ambulate 306' with 4WW during 2MWT Lawn Maintenance Worker Goal (LTG) Pt to demonstrate ability to ambulate >700' using LRAD during a 6MWT to demonstrate improved activity tolerance 12/12/24: 2MWT /c 3WW: 332' 03/04/25: 2MWT: 346' LTG Duration 05/04/25 Two Impairment Pt presents with a severe increased risk of falls, per Dominguez score (29/56) Short Term Goal (STG Pt to demonstrate a decrease in falls risk by improving ) her score on the Dominguez Balance Scale by at least six points to 35/56 STG Duration Met Lawn Maintenance Worker Goal (LTG) Pt to demonstrate a decrease in falls risk by improving her score on the Dominguez Balance Scale by at least five points to 40/56 LTG Duration 05/04/25 One Impairment Pt does not have an appropriate home exercise program Short Term Goal (STG Pt to be independent and compliant with an appropriate ) HEP 02/25/25: resisted clamshell and marching TB #4, LAQ AROM, heel& toe raises. STG Duration 04/03/25 Assessment Summary Assessment 5x STS and 2MWT functional tests performed today demonstrate significant patient improvement. Pt does not have any more scheduled appts at this time but was told to call the front desk worker tomorrow to schedule more. Pt eager and motivated to continue therapy. Pt tolerated the session well with frequent cues to improve knee valgus bilaterally during exercises. Continue to focus on LE strengthening, activity tolerance, balance training Physical Therapy Plan Frequency and Duration Frequency of 2x/Week Treatment Plan of Care Start 03/04/25 Date Plan of Care End 05/04/25 Date Therapeutic Interventions Therapeutic Balance Training,Canalithic Repositioning,Coordination Interventions Training,Gait Training,Home Exercise Program,Joint Mobilizations,Manual Therapy,Neuromuscular Re-education ,Patient/Caregiver Education,Self-Care/Home Management, Soft Tissue Mobilization,Therapeutic Activities, Therapeutic Exercises,Vestibular Rehabilitation Next Visit Focus/Plan Next Note Type Treatment Note Next Visit Plan Next: Continue emphasis on spinal alignment, strength, postural corrections with all activity. POC: LE strengthening, activity tolerance, balance training
--- NOTE | 2025-03-04 18:06 | PT.OPPOC ---
Addendum entered and electronically signed by Santi No PT 03/05/25 09:38: PT direct supervision and direction to student PT Kurt Munoz throughout session Original Note: Physical, Occupational & Speech Therapy At [facility] Current Diagnoses Cerebral infarction, unspecified (03/04/25) Unspecified osteoarthritis, unspecified site (03/04/25) Pain in left knee (03/04/25) Low back pain, unspecified (03/04/25) Unsteadiness on feet (03/04/25) Arthrodesis status (03/04/25) Visit Care Team Role Provider Type HAMZAH Navas Family Provider Non-Staff Specialty: Family Practice Address: [address] [place] [address], [id number] Email: Nabor Starkey MD Attending Provider Physician Primary Care Provider Referring Provider Specialty: [facility] Address: [address] [place] [address], [id number] Email: [email or web address] Plan Of Care PT-OP-B Current Condition Start: 10/10/24 12:55 Freq: Status: Active Protocol: Document 10/10/24 12:15 DCW (Rec: 10/11/24 11:30 DCW [id number]) Current Condition History of Current Condition Onset Date Long-standing history Current Complaints Mid back pain, leg pain, declining activity tolerance History of Current Pt is a 79 year old female with a long-standing history Condition of back problems, prior CVA, balance issues, and falls . Pt is well known to this clinic, has been seen off and on multiple times over the last 10 years for various complaints, mainly due to her back. Pt has life -long history of scoliosis, as well as a R TKA ~20 years ago. Notes that she has probably had 29 different surgeries all over my body. Recently has been experiencing increased mid-to-low back pain, as well as pain radiating into her legs. Pt reports fairly significant fatigue with activity, limited gait, and LE weakness. PT-OP-T Assessment and Plan Start: 10/10/24 12:55 Freq: Status: Active Protocol: Document 03/04/25 17:00 LFG (Rec: 03/04/25 10:12 LFG Laptop) Physical Therapy Assessment Goals Three Impairment Pt able to ambulate 306' with 4WW during 2MWT Care Home Goal (LTG) Pt to demonstrate ability to ambulate >700' using LRAD during a 6MWT to demonstrate improved activity tolerance 12/12/24: 2MWT /c 3WW: 332' 03/04/25: 2MWT: 346' LTG Duration 05/04/25 Two Impairment Pt presents with a severe increased risk of falls, per Dominguez score (2956) Short Term Goal (STG Pt to demonstrate a decrease in falls risk by improving ) her score on the Dominguez Balance Scale by at least six points to 35/56 STG Duration Met Care Home Goal (LTG) Pt to demonstrate a decrease in falls risk by improving her score on the Dominguez Balance Scale by at least five points to 40/56 LTG Duration 05/04/25 One Impairment Pt does not have an appropriate home exercise program Short Term Goal (STG Pt to be independent and compliant with an appropriate ) HEP 02/25/25: resisted clamshell and marching TB #4, LAQ AROM, heel& toe raises. STG Duration 04/03/25 Assessment Summary Assessment 5x STS and 2MWT functional tests performed today demonstrate significant patient improvement. Pt does not have any more scheduled appts at this time but was told to call the front end developer tomorrow to schedule more. Pt eager and motivated to continue therapy. Pt tolerated the session well with frequent cues to improve knee valgus bilaterally during exercises. Continue to focus on LE strengthening, activity tolerance, balance training Physical Therapy Plan Frequency and Duration Frequency of 2x/Week Treatment Plan of Care Start 03/04/25 Date Plan of Care End 05/04/25 Date Therapeutic Interventions Therapeutic Balance Training,Canalithic Repositioning,Coordination Interventions Training,Gait Training,Home Exercise Program,Joint Mobilizations,Manual Therapy,Neuromuscular Re-education ,Patient/Caregiver Education,Self-Care/Home Management, Soft Tissue Mobilization,Therapeutic Activities, Therapeutic Exercises,Vestibular Rehabilitation Next Visit Focus/Plan Next Note Type Treatment Note Next Visit Plan Next: Continue emphasis on spinal alignment, strength, postural corrections with all activity. POC: LE strengthening, activity tolerance, balance training Plan of Care Dates Plan of Care Start Date 03/04/25 Plan of Care End Date 05/04/25 Electronically Signed by: Kurt Huerta, PT 03/04/25 1318 If you are in agreement with this Plan of Care, please return a signed and dated copy. I have reviewed this Plan of Care and certify that the skilled therapy services above are required to meet the patient?s needs. Physician Signature Date Printed Name and Credentials Clinical Instructor Signature Printed Name and Credentials
--- NOTE | 2025-03-14 17:16 | PT.OTN ---
Current Diagnoses Cerebral infarction, unspecified (03/14/25) Unspecified osteoarthritis, unspecified site (03/14/25) Pain in left knee (03/14/25) Low back pain, unspecified (03/14/25) Unsteadiness on feet (03/14/25) Arthrodesis status (03/14/25) Physical Therapy Treatment Note PT-OP-A Visit Information Start: 10/10/24 12:55 Freq: Status: Active Protocol: Document 03/14/25 10:56 NBM (Rec: 03/14/25 11:37 NBM Laptop) Out-Patient Physical Therapy Visit Information Visit Information Visit Type Treatment Note Visit Start Time 10:50 Visit Stop Time 11:35 Visit Number 27 Number of ELECTRIC RELAY TESTER Visits 1 Evaluation Information Evaluation Date 10/10/24 PT-OP-B Current Condition Start: 10/10/24 12:55 Freq: Status: Active Protocol: Document 10/10/24 12:15 DCW (Rec: 10/11/24 11:30 DCW [id number]) Current Condition History of Current Condition Onset Date Long-standing history Current Complaints Mid back pain, leg pain, declining activity tolerance History of Current Pt is a 79 year old female with a long-standing history Condition of back problems, prior CVA, balance issues, and falls . Pt is well known to this clinic, has been seen off and on multiple times over the last 10 years for various complaints, mainly due to her back. Pt has life -long history of scoliosis, as well as a R TKA ~20 years ago. Notes that she has probably had 29 different surgeries all over my body. Recently has been experiencing increased mid-to-low back pain, as well as pain radiating into her legs. Pt reports fairly significant fatigue with activity, limited gait, and LE weakness. PT-OP-C Subjective Start: 10/10/24 12:55 Freq: Status: Active Protocol: Document 03/14/25 10:56 NBM (Rec: 03/14/25 11:37 NBM Laptop) OP-PT Subjective Patient Comments Patient Comments Janet reports no back pain today. She wants to walk more . Her caregiver is having a surgery and will be back Tuesday and is her walking malik. PT-OP-D Balance Start: 10/10/24 12:55 Freq: Status: Active Protocol: Document 01/08/25 15:50 DCW (Rec: 01/08/25 16:14 DCW [id number]) Balance Tests Dominguez Balance Test Dominguez Balance Test 35/56 Score Dominguez Impairment 20 to 39% Impaired (Score 34-44) Rating Dominguez Balance Assessment Evaluation Sitting to Standing Independent w/out Hands Ability Unsupported Stance Supervision- 2 minutes Sitting Unsupported, Safely- 2 minutes Feet on Floor Standing to Sitting Safely, Minimal Hand Use Ability Transfer Ability Safely, Hand Use Unsupported Stance- Supervision, 10 seconds Eyes Closed Unsupported Stance- Assist to attain, 15 secs Eyes Open Reaching Forward Safely, 5 inches Standing Pick- Up Object From Supervision Floor Look Behind Shoulder Turns Sideways Only - Standing Turning 360 Degrees Turns slowly, but safely Unsupported Stance, 2 Steps w/Minimum Assist Alternating Feet on Stair Unsupported Tandem Small Step- 30 seconds Stance Unilateral Leg Lifts Leg/Unable to Hold Stance Total Score Dominguez Total Score ( 36 out of 56 points) Dominguez Impairment 20 to 39% Impaired (Score 34-44) Rating PT-OP-E Functional Tests Start: 10/10/24 12:55 Freq: Status: Active Protocol: Document 03/04/25 17:00 LFG (Rec: 03/04/25 17:06 LFG Laptop) Functional Tests 2 Minute Walk Test Distance 342 Device Used 4 WW Comments 2.85 ft/sec Five Times Sit to Stand Test Score 17.07 PT-OP-M Strength Start: 10/10/24 12:55 Freq: Status: Active Protocol: Document 10/10/24 12:15 DCW (Rec: 10/11/24 11:30 DCW [id number]) Hip Strength Hip Manual Muscle Testing Right Flexion (L2) 4 Good Extension (S1) 4+ Good+ Abduction 4- Good- Adduction 4- Good- External Rotation 4 Good Internal Rotation 4 Good Left Flexion (L2) 3+ Fair+ Extension (S1) 4 Good Abduction 3+ Fair+ Adduction 4- Good- External Rotation 4- Good- Internal Rotation 4- Good- Knee Strength Knee Manual Muscle Testing Right Flexion (S2) 4 Good Extension (L3) 4 Good Left Flexion (S2) 4- Good- Extension (L3) 4- Good- Comments Left knee pain with MMT PT-OP-Q Treatments Start: 10/10/24 12:55 Freq: Status: Active Protocol: Document 03/14/25 10:56 NBM (Rec: 03/14/25 11:37 NBM Laptop) Gym Equipment Shuttle Recovery Unilateral Squats Details cues to perform slower pacing, align knee Resistance 50>37>50# Shuttle Recovery Stable Platform Reps/Time Pt reports 37 too light, 50# x10 ea, after admits L knee discomfort Bilateral Squats Details eccentric control, align knees Resistance 67# (navy) Shuttle Recovery Stable Platform Reps/Time cues for eccentric control Therapeutic Exercises Sitting Exercises hamstring stretch Sitting Exercise added to HEP Name Side bilateral Reps/Minutes 10 breathcycles (~30 sec) Gait Training Gait Activity posture, techique Description to establish baseline for walking program Device Used 3WW Level of Assistance CGA Surface carpet, tile Distance/Duration 3m30s Treatment Focus time, activity tolerance (~ two laps around clinic) Comments cues to relax shoulders, proximation to walker Pt advised to walk in home daily 3-3.5 minutes for two weeks. If feeling easy increase time by 30s for two weeks. Self-Care/Home Management Treatment Education Patient Education Home Exercise Program,Posture,Safety Other Education Issued walking program with initial focus on establishing daily habit, then goal of safely increasing for time by 30s at least every two weeks - HO issued. Added to HEP: seated HS stretch - HO given. PT-OP-T Assessment and Plan Start: 10/10/24 12:55 Freq: Status: Active Protocol: Document 03/14/25 10:56 NBM (Rec: 03/14/25 11:37 [facility] Laptop) Physical Therapy Assessment Rehab Potential Rehabilitation Fair Potential Evaluation Complexity Number of Personal 3 or More Factors/ Comorbidities Number of Body 4 or More Systems Impaired Clinical Unstable Presentation at Evaluation Impairments Impairments Activity Tolerance,Balance,Functional Activities, Functional Mobility,Gait,Pain,Posture,Strength,Tone, Transfers Other Concerns Fall Risk Yes, per on Dominguez Age Related Concerns Effect on social interactions Barriers to ADD, Hx of Bipolar disorder, Hx CVA, Hx UTI, Hx A-fib,, Rehabilitation Cystic fibrosis, COPD, CKD III, PVD, HTN Goals Three Impairment Pt able to ambulate 306' with 4WW during 2MWT Check Services Clerk Goal (LTG) Pt to demonstrate ability to ambulate >700' using LRAD during a 6MWT to demonstrate improved activity tolerance 4/9/25: 2MWT /c 3WW: 332' 03/04/25: 2MWT: 346' LTG Duration 05/04/25 Two Impairment Pt presents with a severe increased risk of falls, per Dominguez score (29/56) Short Term Goal (STG Pt to demonstrate a decrease in falls risk by improving ) her score on the Dominguez Balance Scale by at least six points to 35/56 STG Duration Met Check Services Clerk Goal (LTG) Pt to demonstrate a decrease in falls risk by improving her score on the Dominguez Balance Scale by at least five points to 40/56 LTG Duration 05/04/25 One Impairment Pt does not have an appropriate home exercise program Short Term Goal (STG Pt to be independent and compliant with an appropriate ) HEP 02/25/25: resisted clamshell and marching TB #4, LAQ AROM, heel& toe raises. STG Duration 04/03/25 Assessment Summary Assessment Pt's baseline ambulation time without a break is recorded today at 3 min 30 sec. Janet is issued a walking program with initial focus on establishing daily habit, then goal of safely increasing for time by 30s at least every two weeks - HO issued. Added to HEP : seated HS stretch - HO given. She requires cues for eccentric control with supine leg press, and is educated on maintaining pain-free range with ex's and stretches and given Thank you, Body mantra. Cues for closer proximation with 3WW which decreases low back pain to allow for more upright posture. Physical Therapy Plan Frequency and Duration Frequency of 2x/Week Treatment Plan of Care Start 03/04/25 Date Plan of Care End 05/04/25 Date Therapeutic Interventions Therapeutic Balance Training,Canalithic Repositioning,Coordination Interventions Training,Gait Training,Home Exercise Program,Joint Mobilizations,Manual Therapy,Neuromuscular Re-education ,Patient/Caregiver Education,Self-Care/Home Management, Soft Tissue Mobilization,Therapeutic Activities, Therapeutic Exercises,Vestibular Rehabilitation Next Visit Focus/Plan Next Note Type Treatment Note Next Visit Plan Next: Continue emphasis on spinal alignment, strength, postural corrections with all activity. POC: LE strengthening, activity tolerance, balance training
--- NOTE | 2025-03-19 17:44 | PT.OTN ---
Current Diagnoses Cerebral infarction, unspecified (03/19/25) Unspecified osteoarthritis, unspecified site (03/19/25) Pain in left knee (03/19/25) Low back pain, unspecified (03/19/25) Unsteadiness on feet (03/19/25) Arthrodesis status (03/19/25) Physical Therapy Treatment Note PT-OP-A Visit Information Start: 10/10/24 12:55 Freq: Status: Active Protocol: Document 03/19/25 17:00 DCW (Rec: 03/19/25 17:44 DCW [id number]) Out-Patient Physical Therapy Visit Information Visit Information Visit Type Treatment Note Visit Start Time 17:00 Visit Stop Time 17:40 Visit Number 28 Number of RETURNED ITEM CLERK Visits 0 Evaluation Information Evaluation Date 10/10/24 PT-OP-B Current Condition Start: 10/10/24 12:55 Freq: Status: Active Protocol: Document 10/10/24 12:15 DCW (Rec: 10/11/24 11:30 DCW [id number]) Current Condition History of Current Condition Onset Date Long-standing history Current Complaints Mid back pain, leg pain, declining activity tolerance History of Current Pt is a 79 year old female with a long-standing history Condition of back problems, prior CVA, balance issues, and falls . Pt is well known to this clinic, has been seen off and on multiple times over the last 10 years for various complaints, mainly due to her back. Pt has life -long history of scoliosis, as well as a R TKA ~20 years ago. Notes that she has probably had 29 different surgeries all over my body. Recently has been experiencing increased mid-to-low back pain, as well as pain radiating into her legs. Pt reports fairly significant fatigue with activity, limited gait, and LE weakness. PT-OP-C Subjective Start: 10/10/24 12:55 Freq: Status: Active Protocol: Document 03/19/25 17:00 DCW (Rec: 03/19/25 17:44 DCW [id number]) OP-PT Subjective Patient Comments Patient Comments Pt reports she is feeling good today. PT-OP-D Balance Start: 10/10/24 12:55 Freq: Status: Active Protocol: Document 01/08/25 15:50 DCW (Rec: 01/08/25 16:14 DCW [id number]) Balance Tests Dominguez Balance Test Dominguez Balance Test 35/56 Score Dominguez Impairment 20 to 39% Impaired (Score 34-44) Rating Dominguez Balance Assessment Evaluation Sitting to Standing Independent w/out Hands Ability Unsupported Stance Supervision- 2 minutes Sitting Unsupported, Safely- 2 minutes Feet on Floor Standing to Sitting Safely, Minimal Hand Use Ability Transfer Ability Safely, Hand Use Unsupported Stance- Supervision, 10 seconds Eyes Closed Unsupported Stance- Assist to attain, 15 secs Eyes Open Reaching Forward Safely, 5 inches Standing Pick- Up Object From Supervision Floor Look Behind Shoulder Turns Sideways Only - Standing Turning 360 Degrees Turns slowly, but safely Unsupported Stance, 2 Steps w/Minimum Assist Alternating Feet on Stair Unsupported Tandem Small Step- 30 seconds Stance Unilateral Leg Lifts Leg/Unable to Hold Stance Total Score Dominguez Total Score ( 36 out of 56 points) Dominguez Impairment 20 to 39% Impaired (Score 34-44) Rating PT-OP-E Functional Tests Start: 10/10/24 12:55 Freq: Status: Active Protocol: Document 03/04/25 17:00 LFG (Rec: 03/04/25 17:06 LFG Laptop) Functional Tests 2 Minute Walk Test Distance 342 Device Used 4 WW Comments 2.85 ft/sec Five Times Sit to Stand Test Score 17.07 PT-OP-M Strength Start: 10/10/24 12:55 Freq: Status: Active Protocol: Document 10/10/24 12:15 DCW (Rec: 10/11/24 11:30 DCW [id number]) Hip Strength Hip Manual Muscle Testing Right Flexion (L2) 4 Good Extension (S1) 4+ Good+ Abduction 4- Good- Adduction 4- Good- External Rotation 4 Good Internal Rotation 4 Good Left Flexion (L2) 3+ Fair+ Extension (S1) 4 Good Abduction 3+ Fair+ Adduction 4- Good- External Rotation 4- Good- Internal Rotation 4- Good- Knee Strength Knee Manual Muscle Testing Right Flexion (S2) 4 Good Extension (L3) 4 Good Left Flexion (S2) 4- Good- Extension (L3) 4- Good- Comments Left knee pain with MMT PT-OP-Q Treatments Start: 10/10/24 12:55 Freq: Status: Active Protocol: Document 03/19/25 17:00 DCW (Rec: 03/19/25 17:44 DCW [id number]) Gym Equipment Shuttle Recovery Unilateral Squats Details cues to perform slower pacing, align knee Resistance 50# (two navy) Shuttle Recovery Stable Platform Bilateral Squats Details eccentric control, align knees Resistance 67# (two navy) Shuttle Recovery Stable Platform Reps/Time cues for eccentric control Therapeutic Exercises Sitting Exercises hip abduction Sitting Exercise Hip Abduction Name Resistance Lv 4 dark blue around thighs Reps/Minutes x20 Comments Tactile cues to move L LE more LAQ Sitting Exercise LAQ /c adductor ball squeeze Name Side bilateral Resistance 5# ankle weight Reps/Minutes 3x20 Comments cues for full extension, slow down ecc Other Exercises Side-stepping Other Exercise Name Side Stepping Resistance Lv 2 loop Equipment Used // bars, B hands glide on bars Reps/Minutes 12 ft x1 laps Neuro Re-Education Treatment Balance Activities Hurdles Details Hurdles Equipment // bars Comments Forward and side-stepping, support 1-2 UE Foam Details Toe Taps Surface standing on AirEx Equipment //bars, cones Comments cued for upright and L trunk lean midline. PT-OP-T Assessment and Plan Start: 10/10/24 12:55 Freq: Status: Active Protocol: Document 03/19/25 17:00 [facility] (Rec: 03/19/25 17:44 [facility] [id number]) Physical Therapy Assessment Impairments Impairments Activity Tolerance,Balance,Functional Activities, Functional Mobility,Gait,Pain,Posture,Strength,Tone, Transfers Goals Three Impairment Pt able to ambulate 306' with 4WW during 2MWT Testing Consultant Goal (LTG) Pt to demonstrate ability to ambulate >700' using LRAD during a 6MWT to demonstrate improved activity tolerance 12/12/24: 2MWT /c 3WW: 332' 03/04/25: 2MWT: 346' LTG Duration 05/04/25 Two Impairment Pt presents with a severe increased risk of falls, per Dominguez score (29/56) Short Term Goal (STG Pt to demonstrate a decrease in falls risk by improving ) her score on the Dominguez Balance Scale by at least six points to 35/56 STG Duration Met Skilled Nursing Goal (LTG) Pt to demonstrate a decrease in falls risk by improving her score on the Dominguez Balance Scale by at least five points to 40/56 LTG Duration 05/04/25 One Impairment Pt does not have an appropriate home exercise program Short Term Goal (STG Pt to be independent and compliant with an appropriate ) HEP 02/25/25: resisted clamshell and marching TB #4, LAQ AROM, heel& toe raises. STG Duration 04/03/25 Assessment Summary Assessment Pt continues to fatigue quickly with activity, but is feeling better overall with her mobility and balance. Recent Prog note shows pt continues to progress with overall strength, activity tolerance, balance, and gait . Physical Therapy Plan Frequency and Duration Frequency of 2x/Week Treatment Plan of Care Start 03/04/25 Date Plan of Care End 05/04/25 Date Therapeutic Interventions Therapeutic Balance Training,Canalithic Repositioning,Coordination Interventions Training,Gait Training,Home Exercise Program,Joint Mobilizations,Manual Therapy,Neuromuscular Re-education ,Patient/Caregiver Education,Self-Care/Home Management, Soft Tissue Mobilization,Therapeutic Activities, Therapeutic Exercises,Vestibular Rehabilitation Next Visit Focus/Plan Next Note Type Treatment Note Next Visit Plan Next: Continue emphasis on spinal alignment, strength, postural corrections with all activity. POC: LE strengthening, activity tolerance, balance training
--- NOTE | 2025-04-02 13:45 | PT.OTN ---
Current Diagnoses Cerebral infarction, unspecified (04/02/25) Unspecified osteoarthritis, unspecified site (04/02/25) Pain in left knee (04/02/25) Low back pain, unspecified (04/02/25) Unsteadiness on feet (04/02/25) Arthrodesis status (04/02/25) Physical Therapy Treatment Note PT-OP-A Visit Information Start: 10/10/24 12:55 Freq: Status: Active Protocol: Document 04/02/25 13:07 SP (Rec: 04/02/25 13:54 SP [id number]) Out-Patient Physical Therapy Visit Information Visit Information Visit Type Treatment Note Visit Start Time 13:07 Visit Stop Time 13:45 Visit Number 29 Number of SCHEDULER Visits 1 Evaluation Information Evaluation Date 10/10/24 Precautions Precautions monitor BP pre-ex, during ex, post ex PT-OP-B Current Condition Start: 10/10/24 12:55 Freq: Status: Active Protocol: Document 10/10/24 12:15 DCW (Rec: 10/11/24 11:30 DCW [id number]) Current Condition History of Current Condition Onset Date Long-standing history Current Complaints Mid back pain, leg pain, declining activity tolerance History of Current Pt is a 79 year old female with a long-standing history Condition of back problems, prior CVA, balance issues, and falls . Pt is well known to this clinic, has been seen off and on multiple times over the last 10 years for various complaints, mainly due to her back. Pt has life -long history of scoliosis, as well as a R TKA ~20 years ago. Notes that she has probably had 29 different surgeries all over my body. Recently has been experiencing increased mid-to-low back pain, as well as pain radiating into her legs. Pt reports fairly significant fatigue with activity, limited gait, and LE weakness. PT-OP-C Subjective Start: 10/10/24 12:55 Freq: Status: Active Protocol: Document 04/02/25 13:07 SP (Rec: 04/02/25 13:54 SP [id number]) OP-PT Subjective Patient Comments Patient Comments Pt reports R shld bothersome lately, has been trying do some gardening with raised beds. She does feels good progression with PT overall but feels still more needed wants to get back to not walking with any AD. She states has been about 14 days since last tx and awaiting to return due to back and R shld pain, PT is helping. She reports doesn't do her HEP as much as should be. PT-OP-D Balance Start: 10/10/24 12:55 Freq: Status: Active Protocol: Document 01/08/25 15:50 DCW (Rec: 01/08/25 16:14 DCW [id number]) Balance Tests Dominguez Balance Test Dominguez Balance Test 35/56 Score Dominguez Impairment 20 to 39% Impaired (Score 34-44) Rating Dominguez Balance Assessment Evaluation Sitting to Standing Independent w/out Hands Ability Unsupported Stance Supervision- 2 minutes Sitting Unsupported, Safely- 2 minutes Feet on Floor Standing to Sitting Safely, Minimal Hand Use Ability Transfer Ability Safely, Hand Use Unsupported Stance- Supervision, 10 seconds Eyes Closed Unsupported Stance- Assist to attain, 15 secs Eyes Open Reaching Forward Safely, 5 inches Standing Pick- Up Object From Supervision Floor Look Behind Shoulder Turns Sideways Only - Standing Turning 360 Degrees Turns slowly, but safely Unsupported Stance, 2 Steps w/Minimum Assist Alternating Feet on Stair Unsupported Tandem Small Step- 30 seconds Stance Unilateral Leg Lifts Leg/Unable to Hold Stance Total Score Dominguez Total Score ( 36 out of 56 points) Dominguez Impairment 20 to 39% Impaired (Score 34-44) Rating PT-OP-E Functional Tests Start: 10/10/24 12:55 Freq: Status: Active Protocol: Document 03/04/25 17:00 LFG (Rec: 03/04/25 17:06 LFG Laptop) Functional Tests 2 Minute Walk Test Distance 342 Device Used 4 WW Comments 2.85 ft/sec Five Times Sit to Stand Test Score 17.07 PT-OP-M Strength Start: 10/10/24 12:55 Freq: Status: Active Protocol: Document 10/10/24 12:15 DCW (Rec: 10/11/24 11:30 DCW [id number]) Hip Strength Hip Manual Muscle Testing Right Flexion (L2) 4 Good Extension (S1) 4+ Good+ Abduction 4- Good- Adduction 4- Good- External Rotation 4 Good Internal Rotation 4 Good Left Flexion (L2) 3+ Fair+ Extension (S1) 4 Good Abduction 3+ Fair+ Adduction 4- Good- External Rotation 4- Good- Internal Rotation 4- Good- Knee Strength Knee Manual Muscle Testing Right Flexion (S2) 4 Good Extension (L3) 4 Good Left Flexion (S2) 4- Good- Extension (L3) 4- Good- Comments Left knee pain with MMT PT-OP-Q Treatments Start: 10/10/24 12:55 Freq: Status: Active Protocol: Document 04/02/25 13:07 SP (Rec: 04/02/25 13:54 SP [id number]) Therapeutic Exercises Sitting Exercises Shoulder Extension and Rows Sitting Exercise added to HEP with HO Name Side bilateral Resistance Tb #2 0range Reps/Minutes 20 reps bid Comments cued tall posture (see self phone video)- cued slow Lateral trunk Lean stretch Sitting Exercise seated R quadratus lumborum stretch- reviewed with HO Name Side right Reps/Minutes 15 reps Comments to elongate then L SB, L arm dangle to L side of chair Standing Exercises Side Stepping Standing Exercise Lateral Stepping Name Side bilateral Resistance AROM Equipment Used //bars 1 UE support Reps/Minutes 10 ft x2 laps Comments cued upright posture Gait Training Gait Activity posture, techique Description Reviewed: Baseline for walking program Device Used 3WW Level of Assistance CGA Surface carpet, tile Distance/Duration 3m30s Treatment Focus arrival/leaving clinic- not separate time during tx today 04/02 Comments cues to relax shoulders, proximation to walker arrival/ leaving clinic Continued discussion advised to walk in home daily 3-3. 5 minutes for two weeks. If feeling easy increase time by 30s for two weeks. PT-OP-T Assessment and Plan Start: 10/10/24 12:55 Freq: Status: Active Protocol: Document 04/02/25 13:07 SP (Rec: 04/02/25 13:54 SP [id number]) Physical Therapy Assessment Goals Three Impairment Pt able to ambulate 306' with 4WW during 2MWT Appian Developer Goal (LTG) Pt to demonstrate ability to ambulate >700' using LRAD during a 6MWT to demonstrate improved activity tolerance 12/12/24: 2MWT /c 3WW: 332' 03/04/25: 2MWT: 346' LTG Duration 05/04/25 Two Impairment Pt presents with a severe increased risk of falls, per Dominguez score (2956) Short Term Goal (STG Pt to demonstrate a decrease in falls risk by improving ) her score on the Dominguez Balance Scale by at least six points to 35/56 STG Duration Met Detention Goal (LTG) Pt to demonstrate a decrease in falls risk by improving her score on the Dominguez Balance Scale by at least five points to 40/56 LTG Duration 05/04/25 One Impairment Pt does not have an appropriate home exercise program Short Term Goal (STG Pt to be independent and compliant with an appropriate ) HEP 02/25/25: resisted clamshell and marching TB #4, LAQ AROM, heel& toe raises. STG Duration 04/03/25 Assessment Summary Assessment Continued discussion walking program as directed last tx. Today progressed postural strengthening seated rows and extension with cues for upright posture. Discussion with scoliosis has would be to great challenge walking without AD. Took phone pics and videos for her to view home and self corrections cues as indicated. Provided HEP HOs for carryover support. Physical Therapy Plan Frequency and Duration Frequency of 2x/Week Treatment Plan of Care Start 03/04/25 Date Plan of Care End 05/04/25 Date Therapeutic Interventions Therapeutic Balance Training,Canalithic Repositioning,Coordination Interventions Training,Gait Training,Home Exercise Program,Joint Mobilizations,Manual Therapy,Neuromuscular Re-education ,Patient/Caregiver Education,Self-Care/Home Management, Soft Tissue Mobilization,Therapeutic Activities, Therapeutic Exercises,Vestibular Rehabilitation Next Visit Focus/Plan Next Note Type Progress Note Next Visit Plan Pt due for 30 day PN with PT next tx (04/03 due). Recheck seated rows. Next: Continue emphasis on spinal alignment, strength, postural corrections with all activity. POC: LE strengthening, activity tolerance, balance training
--- NOTE | 2025-04-04 17:15 | PT.OPPN ---
Current Diagnoses Cerebral infarction, unspecified (04/04/25) Unspecified osteoarthritis, unspecified site (04/04/25) Pain in left knee (04/04/25) Low back pain, unspecified (04/04/25) Unsteadiness on feet (04/04/25) Arthrodesis status (04/04/25) Physical Therapy Progress Note PT-OP-A Visit Information Start: 10/10/24 12:55 Freq: Status: Active Protocol: Document 04/04/25 16:18 AB (Rec: 04/04/25 18:00 AB [id number]) Out-Patient Physical Therapy Visit Information Visit Information Visit Type Treatment Note Visit Start Time 16:20 Visit Stop Time 17:07 Visit Number 30 Number of GASFITTER Visits 2 PT-OP-B Current Condition Start: 10/10/24 12:55 Freq: Status: Active Protocol: Document 10/10/24 12:15 DCW (Rec: 10/11/24 11:30 DCW [id number]) Current Condition History of Current Condition Onset Date Long-standing history Current Complaints Mid back pain, leg pain, declining activity tolerance History of Current Pt is a 79 year old female with a long-standing history Condition of back problems, prior CVA, balance issues, and falls . Pt is well known to this clinic, has been seen off and on multiple times over the last 10 years for various complaints, mainly due to her back. Pt has life -long history of scoliosis, as well as a R TKA ~20 years ago. Notes that she has probably had 29 different surgeries all over my body. Recently has been experiencing increased mid-to-low back pain, as well as pain radiating into her legs. Pt reports fairly significant fatigue with activity, limited gait, and LE weakness. PT-OP-C Subjective Start: 10/10/24 12:55 Freq: Status: Active Protocol: Document 04/04/25 16:18 AB (Rec: 04/04/25 18:00 AB [id number]) OP-PT Subjective Patient Comments Patient Comments Patient reports having no falls since last session. Patient reports performing HEP 5X a week. PT-OP-D Balance Start: 10/10/24 12:55 Freq: Status: Active Protocol: Document 04/04/25 16:18 AB (Rec: 04/04/25 18:05 AB [id number]) Villalta Balance Assessment Evaluation Sitting to Standing Independent w/out Hands Ability Unsupported Stance Safely- 2 minutes Sitting Unsupported, Safely- 2 minutes Feet on Floor Standing to Sitting Safely, Minimal Hand Use Ability Transfer Ability Safely, Hand Use Unsupported Stance- Safely, 10 seconds Eyes Closed Unsupported Stance- Independent, 1 minute Eyes Open Reaching Forward Safely, 5 inches Standing Pick- Up Object From Supervision Floor Look Behind Shoulder Shifts Weight Well - Standing Turning 360 Degrees Turns , < 4 secs Unsupported Stance, (I)- 8 Steps in 20 secs Alternating Feet on Stair Unsupported Tandem Assist to Step-15 seconds Stance Unilateral Leg Unable,assist to not fall Stance Total Score Villalta Total Score ( 45 out of 56 points) Villalta Impairment 1 to 19% Impaired (Score 45-55) Rating PT-OP-E Functional Tests Start: 10/10/24 12:55 Freq: Status: Active Protocol: Document 04/04/25 16:18 AB (Rec: 04/04/25 18:00 AB [id number]) Functional Tests 2 Minute Walk Test Distance 357 Device Used 3 WW PT-OP-M Strength Start: 10/10/24 12:55 Freq: Status: Active Protocol: Document 10/10/24 12:15 DCW (Rec: 10/11/24 11:30 DCW [id number]) Hip Strength Hip Manual Muscle Testing Right Flexion (L2) 4 Good Extension (S1) 4+ Good+ Abduction 4- Good- Adduction 4- Good- External Rotation 4 Good Internal Rotation 4 Good Left Flexion (L2) 3+ Fair+ Extension (S1) 4 Good Abduction 3+ Fair+ Adduction 4- Good- External Rotation 4- Good- Internal Rotation 4- Good- Knee Strength Knee Manual Muscle Testing Right Flexion (S2) 4 Good Extension (L3) 4 Good Left Flexion (S2) 4- Good- Extension (L3) 4- Good- Comments Left knee pain with MMT PT-OP-T Assessment and Plan Start: 10/10/24 12:55 Freq: Status: Active Protocol: Document 04/04/25 16:18 AB (Rec: 04/04/25 18:00 AB [id number]) Physical Therapy Assessment Goals Three Impairment Pt able to ambulate 306' with 4WW during 2MWT Proced Tech Goal (LTG) Pt to demonstrate ability to ambulate >700' using LRAD during a 6MWT to demonstrate improved activity tolerance 12/12/24: 2MWT /c 3WW: 332' 03/04/25: 2MWT: 346' 04/04/2025 357 ' with 3WW LTG Duration 05/04/25 Two Impairment Pt presents with a severe increased risk of falls, per Villalta score (29/56) Short Term Goal (STG Pt to demonstrate a decrease in falls risk by improving ) her score on the Villalta Balance Scale by at least six points to 35/56 STG Duration Met Longterm Goal (LTG) Pt to demonstrate a decrease in falls risk by improving her score on the Villalta Balance Scale by at least five points to 40/56 545/ LTG Duration 05/04/25 MET One Impairment Pt does not have an appropriate home exercise program Short Term Goal (STG Pt to be independent and compliant with an appropriate ) HEP 02/25/25: resisted clamshell and marching TB #4, LAQ AROM, heel& toe raises. 04/04/2025 Patient reports performing HEP 5 X a weel STG Duration 04/03/25 Assessment Summary Assessment Patient with improved VILLALTA score/goal met. Increased distance for 2 minute walk test with 3 wheeled walker. SLS very limited and less restrictive device not trialed for test this session. Patient also reports performing HEP 5 X a week.
--- NOTE | 2025-04-04 18:06 | PT.OTN ---
Current Diagnoses Cerebral infarction, unspecified (04/04/25) Unspecified osteoarthritis, unspecified site (04/04/25) Pain in left knee (04/04/25) Low back pain, unspecified (04/04/25) Unsteadiness on feet (04/04/25) Arthrodesis status (04/04/25) Physical Therapy Treatment Note PT-OP-A Visit Information Start: 10/10/24 12:55 Freq: Status: Active Protocol: Document 04/04/25 16:18 AB (Rec: 04/04/25 18:00 AB [id number]) Out-Patient Physical Therapy Visit Information Visit Information Visit Type Treatment Note Visit Start Time 16:20 Visit Stop Time 17:07 Visit Number 30 Number of RELIABILITY TECHNICIAN Visits 2 PT-OP-B Current Condition Start: 10/10/24 12:55 Freq: Status: Active Protocol: Document 10/10/24 12:15 DCW (Rec: 10/11/24 11:30 DCW [id number]) Current Condition History of Current Condition Onset Date Long-standing history Current Complaints Mid back pain, leg pain, declining activity tolerance History of Current Pt is a 79 year old female with a long-standing history Condition of back problems, prior CVA, balance issues, and falls . Pt is well known to this clinic, has been seen off and on multiple times over the last 10 years for various complaints, mainly due to her back. Pt has life -long history of scoliosis, as well as a R TKA ~20 years ago. Notes that she has probably had 29 different surgeries all over my body. Recently has been experiencing increased mid-to-low back pain, as well as pain radiating into her legs. Pt reports fairly significant fatigue with activity, limited gait, and LE weakness. PT-OP-C Subjective Start: 10/10/24 12:55 Freq: Status: Active Protocol: Document 04/04/25 16:18 AB (Rec: 04/04/25 18:00 AB [id number]) OP-PT Subjective Patient Comments Patient Comments Patient reports having no falls since last session. Patient reports performing HEP 5X a week. PT-OP-D Balance Start: 10/10/24 12:55 Freq: Status: Active Protocol: Document 04/04/25 16:18 AB (Rec: 04/04/25 18:05 AB [id number]) Villalta Balance Assessment Evaluation Sitting to Standing Independent w/out Hands Ability Unsupported Stance Safely- 2 minutes Sitting Unsupported, Safely- 2 minutes Feet on Floor Standing to Sitting Safely, Minimal Hand Use Ability Transfer Ability Safely, Hand Use Unsupported Stance- Safely, 10 seconds Eyes Closed Unsupported Stance- Independent, 1 minute Eyes Open Reaching Forward Safely, 5 inches Standing Pick- Up Object From Supervision Floor Look Behind Shoulder Shifts Weight Well - Standing Turning 360 Degrees Turns , < 4 secs Unsupported Stance, (I)- 8 Steps in 20 secs Alternating Feet on Stair Unsupported Tandem Assist to Step-15 seconds Stance Unilateral Leg Unable,assist to not fall Stance Total Score Villalta Total Score ( 45 out of 56 points) Villalta Impairment 1 to 19% Impaired (Score 45-55) Rating PT-OP-E Functional Tests Start: 10/10/24 12:55 Freq: Status: Active Protocol: Document 04/04/25 16:18 AB (Rec: 04/04/25 18:00 AB [id number]) Functional Tests 2 Minute Walk Test Distance 357 Device Used 3 WW PT-OP-M Strength Start: 10/10/24 12:55 Freq: Status: Active Protocol: Document 10/10/24 12:15 DCW (Rec: 10/11/24 11:30 DCW [id number]) Hip Strength Hip Manual Muscle Testing Right Flexion (L2) 4 Good Extension (S1) 4+ Good+ Abduction 4- Good- Adduction 4- Good- External Rotation 4 Good Internal Rotation 4 Good Left Flexion (L2) 3+ Fair+ Extension (S1) 4 Good Abduction 3+ Fair+ Adduction 4- Good- External Rotation 4- Good- Internal Rotation 4- Good- Knee Strength Knee Manual Muscle Testing Right Flexion (S2) 4 Good Extension (L3) 4 Good Left Flexion (S2) 4- Good- Extension (L3) 4- Good- Comments Left knee pain with MMT PT-OP-Q Treatments Start: 10/10/24 12:55 Freq: Status: Active Protocol: Document 04/04/25 16:18 AB (Rec: 04/04/25 18:00 AB [id number]) Therapeutic Exercises Sitting Exercises hip abduction Sitting Exercise Hip Abduction Name Resistance Lv 4 dark blue around thighs Reps/Minutes one minute hold X 1 Comments Tactile cues to move L LE more Standing Exercises Side Stepping Standing Exercise Lateral Stepping Name Side bilateral Resistance level one band above knees Equipment Used //bars UE support Reps/Minutes 10 ft x6 laps Comments cued upright posture Heel raise Side bilateral Equipment Used handrail Reps/Minutes X 12 Comments Lower heels to floor slowly PT-OP-T Assessment and Plan Start: 10/10/24 12:55 Freq: Status: Active Protocol: Document 04/04/25 16:18 AB (Rec: 04/04/25 18:00 AB [id number]) Physical Therapy Assessment Goals Three Impairment Pt able to ambulate 306' with 4WW during 2MWT Mcfp Goal (LTG) Pt to demonstrate ability to ambulate >700' using LRAD during a 6MWT to demonstrate improved activity tolerance 12/12/24: 2MWT /c 3WW: 332' 03/04/25: 2MWT: 346' 04/04/2025 357 ' with 3WW LTG Duration 05/04/25 Two Impairment Pt presents with a severe increased risk of falls, per Villalta score (29/56) Short Term Goal (STG Pt to demonstrate a decrease in falls risk by improving ) her score on the Villalta Balance Scale by at least six points to 35/56 STG Duration Met Mcfp Goal (LTG) Pt to demonstrate a decrease in falls risk by improving her score on the Villalta Balance Scale by at least five points to 40/56 5/56 LTG Duration 05/04/25 MET One Impairment Pt does not have an appropriate home exercise program Short Term Goal (STG Pt to be independent and compliant with an appropriate ) HEP 02/25/25: resisted clamshell and marching TB #4, LAQ AROM, heel& toe raises. 04/04/2025 Patient reports performing HEP 5 X a weel STG Duration 04/03/25 Assessment Summary Assessment Patient with improved VILLALTA score/goal met. Increased distance for 2 minute walk test with 3 wheeled walker. SLS very limited and less restrictive device not trialed for test this session. Patient also reports performing HEP 5 X a week.
--- NOTE | 2025-04-09 17:01 | PT.OTN ---
Current Diagnoses Cerebral infarction, unspecified (04/09/25) Unspecified osteoarthritis, unspecified site (04/09/25) Pain in left knee (04/09/25) Low back pain, unspecified (04/09/25) Unsteadiness on feet (04/09/25) Arthrodesis status (04/09/25) Physical Therapy Treatment Note PT-OP-A Visit Information Start: 10/10/24 12:55 Freq: Status: Active Protocol: Document 04/09/25 16:15 DCW (Rec: 04/09/25 17:01 DCW [id number]) Out-Patient Physical Therapy Visit Information Visit Information Visit Type Treatment Note Visit Start Time 16:15 Visit Stop Time 17:00 Visit Number 31 Number of RESPIRATORY MANAGER Visits 0 Progress Note Due 05/04/25 Evaluation Information Evaluation Date 10/10/24 Precautions Precautions monitor BP pre-ex, during ex, post ex PT-OP-B Current Condition Start: 10/10/24 12:55 Freq: Status: Active Protocol: Document 10/10/24 12:15 DCW (Rec: 10/11/24 11:30 DCW [id number]) Current Condition History of Current Condition Onset Date Long-standing history Current Complaints Mid back pain, leg pain, declining activity tolerance History of Current Pt is a 79 year old female with a long-standing history Condition of back problems, prior CVA, balance issues, and falls . Pt is well known to this clinic, has been seen off and on multiple times over the last 10 years for various complaints, mainly due to her back. Pt has life -long history of scoliosis, as well as a R TKA ~20 years ago. Notes that she has probably had 29 different surgeries all over my body. Recently has been experiencing increased mid-to-low back pain, as well as pain radiating into her legs. Pt reports fairly significant fatigue with activity, limited gait, and LE weakness. PT-OP-C Subjective Start: 10/10/24 12:55 Freq: Status: Active Protocol: Document 04/09/25 16:15 DCW (Rec: 04/09/25 17:01 DCW [id number]) OP-PT Subjective Patient Comments Patient Comments Pt feeling well, had a good weekend. PT-OP-D Balance Start: 10/10/24 12:55 Freq: Status: Active Protocol: Document 04/04/25 16:18 AB (Rec: 04/04/25 18:05 AB [id number]) Dominguez Balance Assessment Evaluation Sitting to Standing Independent w/out Hands Ability Unsupported Stance Safely- 2 minutes Sitting Unsupported, Safely- 2 minutes Feet on Floor Standing to Sitting Safely, Minimal Hand Use Ability Transfer Ability Safely, Hand Use Unsupported Stance- Safely, 10 seconds Eyes Closed Unsupported Stance- Independent, 1 minute Eyes Open Reaching Forward Safely, 5 inches Standing Pick- Up Object From Supervision Floor Look Behind Shoulder Shifts Weight Well - Standing Turning 360 Degrees Turns , < 4 secs Unsupported Stance, (I)- 8 Steps in 20 secs Alternating Feet on Stair Unsupported Tandem Assist to Step-15 seconds Stance Unilateral Leg Unable,assist to not fall Stance Total Score Dominguez Total Score ( 45 out of 56 points) Dominguez Impairment 1 to 19% Impaired (Score 45-55) Rating PT-OP-E Functional Tests Start: 10/10/24 12:55 Freq: Status: Active Protocol: Document 04/04/25 16:18 AB (Rec: 04/04/25 18:00 AB [id number]) Functional Tests 2 Minute Walk Test Distance 357 Device Used 3 WW PT-OP-M Strength Start: 10/10/24 12:55 Freq: Status: Active Protocol: Document 10/10/24 12:15 DCW (Rec: 10/11/24 11:30 DCW [id number]) Hip Strength Hip Manual Muscle Testing Right Flexion (L2) 4 Good Extension (S1) 4+ Good+ Abduction 4- Good- Adduction 4- Good- External Rotation 4 Good Internal Rotation 4 Good Left Flexion (L2) 3+ Fair+ Extension (S1) 4 Good Abduction 3+ Fair+ Adduction 4- Good- External Rotation 4- Good- Internal Rotation 4- Good- Knee Strength Knee Manual Muscle Testing Right Flexion (S2) 4 Good Extension (L3) 4 Good Left Flexion (S2) 4- Good- Extension (L3) 4- Good- Comments Left knee pain with MMT PT-OP-Q Treatments Start: 10/10/24 12:55 Freq: Status: Active Protocol: Document 04/09/25 16:15 DCW (Rec: 04/09/25 17:01 DCW [id number]) Gym Equipment Shuttle Recovery Unilateral Squats Details cues to perform slower pacing, align knee Resistance 50# (two navy) Shuttle Recovery Stable Platform Bilateral Squats Resistance 75# (two navy) Shuttle Recovery Stable Platform Therapeutic Exercises Sitting Exercises Hamstring Curls Sitting Exercise Hamstring Curls Name Side bilateral Resistance Lv 2 Reps/Minutes X20 LAQ Sitting Exercise LAQ Name Side bilateral Resistance Lv 2 Reps/Minutes 3x20 Comments cues for full extension, slow down ecc Other Exercises Side-stepping Other Exercise Name Side Stepping Resistance Lv 2 loop Equipment Used // bars, B hands glide on bars Toe-taps Other Exercise Name Toe-taps Side bilateral Resistance AirEx stance Equipment Used 6 step, R UE support on //bar Reps/Minutes 20 reps alternating x2 Neuro Re-Education Treatment Balance Activities Hurdles Details Hurdles Equipment // bars Comments Forward and side-stepping, support 1-2 UE Tandem Details Tandem Stance Equipment // bars PT-OP-T Assessment and Plan Start: 10/10/24 12:55 Freq: Status: Active Protocol: Document 04/09/25 16:15 DCW (Rec: 04/09/25 17:01 DCW [id number]) Physical Therapy Assessment Impairments Impairments Activity Tolerance,Balance,Functional Activities, Functional Mobility,Gait,Pain,Posture,Strength,Tone, Transfers Goals Three Impairment Pt able to ambulate 306' with 4WW during 2MWT Real Estate Representative Goal (LTG) Pt to demonstrate ability to ambulate >700' using LRAD during a 6MWT to demonstrate improved activity tolerance 12/12/24: 2MWT /c 3WW: 332' 03/04/25: 2MWT: 346' 04/04/2025 357 ' with 3WW LTG Duration 05/04/25 Two Impairment Pt presents with a severe increased risk of falls, per Dominguez score (29/56) Short Term Goal (STG Pt to demonstrate a decrease in falls risk by improving ) her score on the Dominguez Balance Scale by at least six points to 35/56 STG Duration Met Real Estate Representative Goal (LTG) Pt to demonstrate a decrease in falls risk by improving her score on the Dominguez Balance Scale by at least five points to 40/56 5/56 LTG Duration 05/04/25 MET One Impairment Pt does not have an appropriate home exercise program Short Term Goal (STG Pt to be independent and compliant with an appropriate ) HEP 02/25/25: resisted clamshell and marching TB #4, LAQ AROM, heel& toe raises. 04/04/2025 Patient reports performing HEP 5 X a weel STG Duration 04/03/25 Assessment Summary Assessment Pt remains consistent with HEP, doing well with balance and improving functional mobility. Continue to focus on strengthening, activity tolerance, and balance. Physical Therapy Plan Frequency and Duration Frequency of 2x/Week Treatment Plan of Care Start 03/04/25 Date Plan of Care End 05/04/25 Date Therapeutic Interventions Therapeutic Balance Training,Canalithic Repositioning,Coordination Interventions Training,Gait Training,Home Exercise Program,Joint Mobilizations,Manual Therapy,Neuromuscular Re-education ,Patient/Caregiver Education,Self-Care/Home Management, Soft Tissue Mobilization,Therapeutic Activities, Therapeutic Exercises,Vestibular Rehabilitation Next Visit Focus/Plan Next Note Type Treatment Note Next Visit Plan Next: Continue emphasis on spinal alignment, strength, postural corrections with all activity. POC: LE strengthening, activity tolerance, balance training
--- NOTE | 2025-04-11 13:45 | PT.OTN ---
Current Diagnoses Cerebral infarction, unspecified (04/11/25) Unspecified osteoarthritis, unspecified site (04/11/25) Pain in left knee (04/11/25) Low back pain, unspecified (04/11/25) Unsteadiness on feet (04/11/25) Arthrodesis status (04/11/25) Physical Therapy Treatment Note PT OP: Lower Back/Lower Extremity Start: 04/11/25 13:03 Freq: Status: Active Protocol: Document 04/11/25 13:10 SP (Rec: 04/11/25 13:50 SP [id number]) Out-Patient Physical Therapy Visit Information Visit Information Visit Type Treatment Note Visit Start Time 13:10 Visit Stop Time 13:45 Visit Number 32 Number of WEB MARKETING ASSISTANT Visits 1 Progress Note Due 05/04/25 Evaluation Information Evaluation Date 10/10/24 Precautions Precautions monitor BP pre-ex, during ex, post ex OP-PT Subjective Patient Comments Patient Comments Pt 10 min late for appt. She reports wants to get posture better, leaning off to R more than would like and back hurt. She states exercises helps but still pulls on back tightness. But so much better then wasn't in PT apples to oranges better. Gym Equipment Shuttle Recovery Unilateral Squats Details cues to perform slower pacing, align knee and spine Resistance 50# (two navy) Shuttle Recovery Stable Platform Reps/Time 15 Bilateral Squats Details ball between knees & spinal alignment tactile corrections Resistance 75# (two navy) Shuttle Recovery Stable Platform Reps/Time 20 Therapeutic Exercises Sitting Exercises LAQ Sitting Exercise LAQ Name Side bilateral Resistance Lv 2 Equipment Used mirror front for spinal alignment and head turn L more L midline Reps/Minutes 3x30 Comments cues for full extension, slow down ecc Standing Exercises Wall Posture Standing Exercise added Name Side bilateral Comments cues Self-Care/Home Management Treatment Education Patient Education Home Exercise Program,Posture,Safety Other Education Education and instruction performance on posture, added wall posture with HO and cues for correction midline and how carryhover walking with 3WW. Physical Therapy Assessment Goals Three Impairment Pt able to ambulate 306' with 4WW during 2MWT Mcfp Goal (LTG) Pt to demonstrate ability to ambulate >700' using LRAD during a 6MWT to demonstrate improved activity tolerance 12/12/24: 2MWT /c 3WW: 332' 03/04/25: 2MWT: 346' 04/04/2025 357 ' with 3WW LTG Duration 05/04/25 Two Impairment Pt presents with a severe increased risk of falls, per Dominguez score (29/56) Short Term Goal (STG Pt to demonstrate a decrease in falls risk by improving ) her score on the Dominguez Balance Scale by at least six points to 35/56 STG Duration Met Mcfp Goal (LTG) Pt to demonstrate a decrease in falls risk by improving her score on the Dominguez Balance Scale by at least five points to 40/56 545/56 LTG Duration 05/04/25 MET One Impairment Pt does not have an appropriate home exercise program Short Term Goal (STG Pt to be independent and compliant with an appropriate ) HEP 02/25/25: resisted clamshell and marching TB #4, LAQ AROM, heel& toe raises. 04/04/2025 Patient reports performing HEP 5 X a weel STG Duration 04/03/25 Assessment Summary Assessment Pt good feedback response with improved postural corrections with cuing direction trunk during added wall posture wtih cues for alignment and self phone pics and use HO for awareness set up and proper form carryover home, pic of lady and plumline behind her. Good feedback tiring response thighs and postural muscles post LE resisted therex to support standing strength, midline balance and endurance for community gait. Physical Therapy Plan Frequency and Duration Frequency of 2x/Week Treatment Plan of Care Start 03/04/25 Date Plan of Care End 05/04/25 Date Therapeutic Interventions Therapeutic Balance Training,Canalithic Repositioning,Coordination Interventions Training,Gait Training,Home Exercise Program,Joint Mobilizations,Manual Therapy,Neuromuscular Re-education ,Patient/Caregiver Education,Self-Care/Home Management, Soft Tissue Mobilization,Therapeutic Activities, Therapeutic Exercises,Vestibular Rehabilitation Next Visit Focus/Plan Next Note Type Treatment Note Next Visit Plan Next: Continue emphasis on spinal alignment, strength, postural corrections with all activity. POC: LE strengthening, activity tolerance, balance training
--- NOTE | 2025-04-16 17:10 | PT.OTN ---
Current Diagnoses Cerebral infarction, unspecified (04/16/25) Unspecified osteoarthritis, unspecified site (04/16/25) Pain in left knee (04/16/25) Low back pain, unspecified (04/16/25) Unsteadiness on feet (04/16/25) Arthrodesis status (04/16/25) Physical Therapy Treatment Note PT OP: Lower Back/Lower Extremity Start: 04/11/25 13:03 Freq: Status: Active Protocol: Document 04/16/25 16:20 DCW (Rec: 04/16/25 17:10 DCW [id number]) Out-Patient Physical Therapy Visit Information Visit Information Visit Type Treatment Note Visit Note Started session in restroom Visit Start Time 16:20 Visit Stop Time 17:00 Visit Number 33 Number of GASATERIA ATTENDANT Visits 0 Progress Note Due 05/04/25 Evaluation Information Evaluation Date 10/10/24 Precautions Precautions monitor BP pre-ex, during ex, post ex Gym Equipment Shuttle Recovery Unilateral Squats Details cues to perform slower pacing, align knee and spine Resistance 50# (two navy) Shuttle Recovery Stable Platform Reps/Time 15 Bilateral Squats Details ball between knees & spinal alignment tactile corrections Resistance 75# (two navy) Shuttle Recovery Stable Platform Reps/Time 20 Therapeutic Exercises Sitting Exercises Horizontal Abduction Sitting Exercise Shoulder HAbd Name Side bilateral Resistance Lv 4 Trunk Extension Sitting Exercise Seated Trunk Extension Name Resistance Lv 4 Hamstring Curls Sitting Exercise Hamstring Curls Name Side bilateral Resistance Lv 4 Reps/Minutes X20 hip abduction Sitting Exercise Hip Abduction Name Resistance Lv 4 dark blue around thighs Standing Exercises Hip Extension Standing Exercise Hip Extension Name Side bilateral Resistance Lv 3 Other Exercises Side-stepping Other Exercise Name Side-stepping Resistance Lv 2 loop Equipment Used // bars, B hands glide on bars Neuro Re-Education Treatment Balance Activities Hurdles Details Hurdles Equipment // bars Comments Forward and side-stepping, support 1-2 UE Tandem Details Tandem Stance Equipment // bars Foam Details Toe Taps Surface standing on AirEx Equipment //bars, cones Physical Therapy Assessment Impairments Impairments Activity Tolerance,Balance,Functional Activities, Functional Mobility,Gait,Pain,Posture,Strength,Tone, Transfers Goals Three Impairment Pt able to ambulate 306' with 4WW during 2MWT Skilled Nursing Goal (LTG) Pt to demonstrate ability to ambulate >700' using LRAD during a 6MWT to demonstrate improved activity tolerance 12/12/24: 2MWT /c 3WW: 332' 03/04/25: 2MWT: 346' 04/04/2025 357 ' with 3WW LTG Duration 05/04/25 Two Impairment Pt presents with a severe increased risk of falls, per Dominguez score (29/56) Short Term Goal (STG Pt to demonstrate a decrease in falls risk by improving ) her score on the Dominguez Balance Scale by at least six points to 35/56 STG Duration Met Surgical Services Asst Goal (LTG) Pt to demonstrate a decrease in falls risk by improving her score on the Dominguez Balance Scale by at least five points to 40/56 545/56 LTG Duration 05/04/25 MET One Impairment Pt does not have an appropriate home exercise program Short Term Goal (STG Pt to be independent and compliant with an appropriate ) HEP 02/25/25: resisted clamshell and marching TB #4, LAQ AROM, heel& toe raises. 04/04/2025 Patient reports performing HEP 5 X a weel STG Duration 04/03/25 Assessment Summary Assessment Pt tolerates treatment well, felt it was a really good workout, legs felt sore, but a good sore. Pt feeling better with overall balance and strength, showing improvement with activity tolerance. Physical Therapy Plan Frequency and Duration Frequency of 2x/Week Treatment Plan of Care Start 03/04/25 Date Plan of Care End 05/04/25 Date Therapeutic Interventions Therapeutic Balance Training,Canalithic Repositioning,Coordination Interventions Training,Gait Training,Home Exercise Program,Joint Mobilizations,Manual Therapy,Neuromuscular Re-education ,Patient/Caregiver Education,Self-Care/Home Management, Soft Tissue Mobilization,Therapeutic Activities, Therapeutic Exercises,Vestibular Rehabilitation Next Visit Focus/Plan Next Note Type Treatment Note Next Visit Plan Next: Continue emphasis on spinal alignment, strength, postural corrections with all activity. POC: LE strengthening, activity tolerance, balance training
--- NOTE | 2025-04-18 16:58 | PT.OTN ---
Current Diagnoses Cerebral infarction, unspecified (04/18/25) Unspecified osteoarthritis, unspecified site (04/18/25) Pain in left knee (04/18/25) Low back pain, unspecified (04/18/25) Unsteadiness on feet (04/18/25) Arthrodesis status (04/18/25) Physical Therapy Treatment Note PT OP: Lower Back/Lower Extremity Start: 04/11/25 13:03 Freq: Status: Active Protocol: Document 04/18/25 16:15 DCW (Rec: 04/18/25 16:58 DCW [id number]) Out-Patient Physical Therapy Visit Information Visit Information Visit Type Treatment Note Visit Start Time 16:15 Visit Stop Time 17:00 Visit Number 34 Number of EDGERMAN Visits 0 Progress Note Due 05/04/25 Evaluation Information Evaluation Date 10/10/24 OP-PT Subjective Patient Comments Patient Comments Your exercises have really been helping me. Gym Equipment Shuttle Recovery Unilateral Squats Resistance 50# (two navy) Shuttle Recovery Stable Platform Reps/Time 15 Bilateral Squats Resistance 75# (two navy) Shuttle Recovery Stable Platform Reps/Time 20 Therapeutic Exercises Sitting Exercises Hamstring Curls Sitting Exercise Hamstring Curls Name Side bilateral Resistance Lv 3 hip abduction Sitting Exercise Hip Abduction Name Resistance Lv 3 Standing Exercises Hip Extension Standing Exercise Hip Extension Name Side bilateral Resistance Green loop Other Exercises Side-stepping Other Exercise Name Side-stepping Resistance Green loop Equipment Used // bars, B hands glide on bars Neuro Re-Education Treatment Balance Activities Hurdles Details Hurdles Equipment // bars Comments Forward and side-stepping, support 1-2 UE Tandem Details Tandem Stance Surface AirEx Equipment // bars Foam Details Toe Taps Surface standing on AirEx Equipment //bars, cones Physical Therapy Assessment Impairments Impairments Activity Tolerance,Balance,Functional Activities, Functional Mobility,Gait,Pain,Posture,Strength,Tone, Transfers Goals Three Impairment Pt able to ambulate 306' with 4WW during 2MWT Fertilizer Supervisor Goal (LTG) Pt to demonstrate ability to ambulate >700' using LRAD during a 6MWT to demonstrate improved activity tolerance 12/12/24: 2MWT /c 3WW: 332' 03/04/25: 2MWT: 346' 04/04/2025 357 ' with 3WW LTG Duration 05/04/25 Two Impairment Pt presents with a severe increased risk of falls, per Dominguez score (29/56) Short Term Goal (STG Pt to demonstrate a decrease in falls risk by improving ) her score on the Dominguez Balance Scale by at least six points to 35/56 STG Duration Met Fertilizer Supervisor Goal (LTG) Pt to demonstrate a decrease in falls risk by improving her score on the Dominguez Balance Scale by at least five points to 40/56 545/56 LTG Duration 05/04/25 MET One Impairment Pt does not have an appropriate home exercise program Short Term Goal (STG Pt to be independent and compliant with an appropriate ) HEP 02/25/25: resisted clamshell and marching TB #4, LAQ AROM, heel& toe raises. 04/04/2025 Patient reports performing HEP 5 X a weel STG Duration 04/03/25 Assessment Summary Assessment Pt notes she needs to do more at home. Doing well while in clinic, showing improvement with strength and activity tolerance. Continue as planned. Physical Therapy Plan Frequency and Duration Frequency of 2x/Week Treatment Plan of Care Start 03/04/25 Date Plan of Care End 05/04/25 Date Therapeutic Interventions Therapeutic Balance Training,Canalithic Repositioning,Coordination Interventions Training,Gait Training,Home Exercise Program,Joint Mobilizations,Manual Therapy,Neuromuscular Re-education ,Patient/Caregiver Education,Self-Care/Home Management, Soft Tissue Mobilization,Therapeutic Activities, Therapeutic Exercises,Vestibular Rehabilitation Next Visit Focus/Plan Next Note Type Treatment Note Next Visit Plan Next: Continue emphasis on spinal alignment, strength, postural corrections with all activity. POC: LE strengthening, activity tolerance, balance training
[2025-04-22 17:00] VITALS: BP 121/69
--- NOTE | 2025-04-22 17:45 | PT.OTN ---
Current Diagnoses Cerebral infarction, unspecified (04/22/25) Unspecified osteoarthritis, unspecified site (04/22/25) Pain in left knee (04/22/25) Low back pain, unspecified (04/22/25) Unsteadiness on feet (04/22/25) Arthrodesis status (04/22/25) Physical Therapy Treatment Note PT OP: Lower Back/Lower Extremity Start: 04/11/25 13:03 Freq: Status: Active Protocol: Document 04/22/25 17:00 DCW (Rec: 04/22/25 17:44 DCW [id number]) Out-Patient Physical Therapy Visit Information Visit Information Visit Type Treatment Note Visit Start Time 17:00 Visit Stop Time 17:45 Visit Number 35 Number of RELOCATION SPECIALIST Visits 0 Progress Note Due 05/04/25 Evaluation Information Evaluation Date 10/10/24 Precautions Precautions monitor BP pre-ex, during ex, post ex Vital Signs Blood Pressure Sitting Blood Pressure (90/ 121/69 H 60-120/80 mmHg) Blood Pressure Automatic Cuff,Left Upper Extremity Source OP-PT Subjective Patient Comments Patient Comments Pt feeling good today, admits she is still fatigued. Gym Equipment Shuttle Recovery Unilateral Squats Resistance 50# (two navy) Shuttle Recovery Stable Platform Reps/Time x20x Bilateral Squats Resistance 75# (three navy) Shuttle Recovery Stable Platform Reps/Time x25 Therapeutic Exercises Sitting Exercises ER Sitting Exercise Shoulder ER Name Side bilateral Resistance Lv 4 Horizontal Abduction Sitting Exercise Shoulder HAbd Name Side bilateral Resistance Lv 4 Hamstring Curls Sitting Exercise Hamstring Curls Name Side bilateral Resistance Lv 4 Reps/Minutes X20 hip abduction Sitting Exercise Hip Abduction Name Resistance Lv 4 dark blue around thighs Other Exercises Side-stepping Other Exercise Name Side-stepping Resistance Green loop Equipment Used // bars, B hands glide on bars Toe-taps Other Exercise Name Toe-taps Side bilateral Equipment Used 6 step, // bars Neuro Re-Education Treatment Balance Activities Hurdles Details Hurdles Equipment // bars Comments Forward and side-stepping, support 1-2 UE Tandem Details Tandem Stance Surface AirEx Equipment // bars Physical Therapy Assessment Impairments Impairments Activity Tolerance,Balance,Functional Activities, Functional Mobility,Gait,Pain,Posture,Strength,Tone, Transfers Goals Three Impairment Pt able to ambulate 306' with 4WW during 2MWT Dredgemaster Goal (LTG) Pt to demonstrate ability to ambulate >700' using LRAD during a 6MWT to demonstrate improved activity tolerance 12/12/24: 2MWT /c 3WW: 332' 03/04/25: 2MWT: 346' 04/04/2025 357 ' with 3WW LTG Duration 05/04/25 Two Impairment Pt presents with a severe increased risk of falls, per Dominguez score (29/56) Short Term Goal (STG Pt to demonstrate a decrease in falls risk by improving ) her score on the Dominguez Balance Scale by at least six points to 35/56 STG Duration Met Dredgemaster Goal (LTG) Pt to demonstrate a decrease in falls risk by improving her score on the Dominguez Balance Scale by at least five points to 40/56 5/56 LTG Duration 05/04/25 MET One Impairment Pt does not have an appropriate home exercise program Short Term Goal (STG Pt to be independent and compliant with an appropriate ) HEP 02/25/25: resisted clamshell and marching TB #4, LAQ AROM, heel& toe raises. 04/04/2025 Patient reports performing HEP 5 X a weel STG Duration 04/03/25 Assessment Summary Assessment Pt tolerating treatment well, but does continue to fatigue regularly with activity. Focus on strength and balance Physical Therapy Plan Frequency and Duration Frequency of 2x/Week Treatment Plan of Care Start 03/04/25 Date Plan of Care End 05/04/25 Date Therapeutic Interventions Therapeutic Balance Training,Canalithic Repositioning,Coordination Interventions Training,Gait Training,Home Exercise Program,Joint Mobilizations,Manual Therapy,Neuromuscular Re-education ,Patient/Caregiver Education,Self-Care/Home Management, Soft Tissue Mobilization,Therapeutic Activities, Therapeutic Exercises,Vestibular Rehabilitation Next Visit Focus/Plan Next Note Type Treatment Note Next Visit Plan Next: Continue emphasis on spinal alignment, strength, postural corrections with all activity. POC: LE strengthening, activity tolerance, balance training
--- NOTE | 2025-04-26 14:34 | PT.OTN ---
Current Diagnoses Cerebral infarction, unspecified (04/26/25) Unspecified osteoarthritis, unspecified site (04/26/25) Pain in left knee (04/26/25) Low back pain, unspecified (04/26/25) Unsteadiness on feet (04/26/25) Arthrodesis status (04/26/25) Physical Therapy Treatment Note PT OP: Lower Back/Lower Extremity Start: 04/11/25 13:03 Freq: Status: Active Protocol: Document 04/26/25 13:45 DCW (Rec: 04/26/25 14:34 DCW [id number]) Out-Patient Physical Therapy Visit Information Visit Information Visit Type Treatment Note Visit Start Time 13:45 Visit Stop Time 14:30 Visit Number 36 Number of HERPETOLOGIST Visits 0 Progress Note Due 05/04/25 Evaluation Information Evaluation Date 10/10/24 Precautions Precautions monitor BP pre-ex, during ex, post ex OP-PT Subjective Patient Comments Patient Comments Pt reports she has been feeling really good recently. Gym Equipment Shuttle Recovery Unilateral Squats Resistance 50# (two navy) Shuttle Recovery Stable Platform Reps/Time x20x Bilateral Squats Resistance 100# (four navy) Shuttle Recovery Stable Platform Reps/Time x25 Therapeutic Exercises Standing Exercises Calf Stretch Standing Exercise Calf Stretch Name Side bilateral Equipment Used MICKEY Comments verbal and tactile cues for form Neuro Re-Education Treatment Balance Activities Eyes Closed Details Eyes closed Surface AirEx retro stepping Details min Ax1 Equipment @ rail Reps/Duration 10 feet X 3 Comments UE support Hurdles Details Hurdles Equipment // bars Comments significant struggle today with foot clearance. Foam Details Cone taps Surface standing on AirEx Equipment @ rail Physical Therapy Assessment Impairments Impairments Activity Tolerance,Balance,Functional Activities, Functional Mobility,Gait,Pain,Posture,Strength,Tone, Transfers Goals Three Impairment Pt able to ambulate 306' with 4WW during 2MWT Pricing Actuary Goal (LTG) Pt to demonstrate ability to ambulate >700' using LRAD during a 6MWT to demonstrate improved activity tolerance 12/12/24: 2MWT /c 3WW: 332' 03/04/25: 2MWT: 346' 04/04/2025 357 ' with 3WW LTG Duration 05/04/25 Two Impairment Pt presents with a severe increased risk of falls, per Dominguez score (29/56) Short Term Goal (STG Pt to demonstrate a decrease in falls risk by improving ) her score on the Dominguez Balance Scale by at least six points to 35/56 STG Duration Met Pricing Actuary Goal (LTG) Pt to demonstrate a decrease in falls risk by improving her score on the Dominguez Balance Scale by at least five points to 40/56 5/56 LTG Duration 05/04/25 MET One Impairment Pt does not have an appropriate home exercise program Short Term Goal (STG Pt to be independent and compliant with an appropriate ) HEP 02/25/25: resisted clamshell and marching TB #4, LAQ AROM, heel& toe raises. 04/04/2025 Patient reports performing HEP 5 X a weel STG Duration 05/04/25 Assessment Summary Assessment Pt struggled much more today with weight-bearing through left leg, impacted her ability to perform stepping or toe tapping, had difficulty lifting right leg high enough because couldn't support weight on left . Pt admitted she hadn't slept well, was struggling a bit. Continue to work on strength, activity tolerance, and balance. Physical Therapy Plan Frequency and Duration Frequency of 2x/Week Treatment Plan of Care Start 03/04/25 Date Plan of Care End 05/04/25 Date Therapeutic Interventions Therapeutic Balance Training,Canalithic Repositioning,Coordination Interventions Training,Gait Training,Home Exercise Program,Joint Mobilizations,Manual Therapy,Neuromuscular Re-education ,Patient/Caregiver Education,Self-Care/Home Management, Soft Tissue Mobilization,Therapeutic Activities, Therapeutic Exercises,Vestibular Rehabilitation Next Visit Focus/Plan Next Note Type Treatment Note Next Visit Plan Next: Continue emphasis on spinal alignment, strength, postural corrections with all activity. POC: LE strengthening, activity tolerance, balance training
--- NOTE | 2025-05-01 18:26 | PT.OTN ---
Current Diagnoses Cerebral infarction, unspecified (05/01/25) Unspecified osteoarthritis, unspecified site (05/01/25) Pain in left knee (05/01/25) Low back pain, unspecified (05/01/25) Unsteadiness on feet (05/01/25) Arthrodesis status (05/01/25) Physical Therapy Treatment Note PT OP: Lower Back/Lower Extremity Start: 04/11/25 13:03 Freq: Status: Active Protocol: Document 05/01/25 17:09 QUALITY REP (Rec: 05/01/25 18:25 QUALITY REP Laptop) Out-Patient Physical Therapy Visit Information Visit Information Visit Type Treatment Note Visit Start Time 17:05 Visit Stop Time 17:50 Visit Number 37 Number of HEEL BRUSHER Visits 0 Progress Note Due 05/04/25 Precautions Precautions monitor BP pre-ex, during ex, post ex OP-PT Subjective Patient Comments Patient Comments Pt reports feeling good, currently 1/10 pain to L low back. BP after NuStep 157/82 Cardio Equipment Recumbent Elliptical (NuStep) Duration (Minutes) 6 Resistance L5 Seat Position 6 Other BUEs and BLEs VC for full ROM and decreased UT Therapeutic Exercises Sitting Exercises Trunk rotation/flex Side bilateral Reps/Minutes x10 each side with 5s hold Lateral trunk Lean stretch Sitting Exercise UE on hip with lateral flex lean alt sides Name Side bilateral Reps/Minutes x10 each side with 5s hold Therapeutic Activity Therapeutic Activity Discussion of POC Reps/Minutes 20 Comments discussion about potential D/C at next session if not demonstrating progress, goals of PT, and importance of continuing mobility and HEP Physical Therapy Assessment Goals Three Impairment Pt able to ambulate 306' with 4WW during 2MWT [facility] Goal (LTG) Pt to demonstrate ability to ambulate >700' using LRAD during a 6MWT to demonstrate improved activity tolerance 12/12/24: 2MWT /c 3WW: 332' 03/04/25: 2MWT: 346' 04/04/2025 357 ' with 3WW LTG Duration 05/04/25 Two Impairment Pt presents with a severe increased risk of falls, per Dominguez score (29/56) Short Term Goal (STG Pt to demonstrate a decrease in falls risk by improving ) her score on the Dominguez Balance Scale by at least six points to 35/56 STG Duration Met Transit Mechanic Goal (LTG) Pt to demonstrate a decrease in falls risk by improving her score on the Dominguez Balance Scale by at least five points to 40/56 545/56 LTG Duration 05/04/25 MET One Impairment Pt does not have an appropriate home exercise program Short Term Goal (STG Pt to be independent and compliant with an appropriate ) HEP 02/25/25: resisted clamshell and marching TB #4, LAQ AROM, heel& toe raises. 04/04/2025 Patient reports performing HEP 5 X a weel STG Duration 05/04/25 Assessment Summary Assessment Pt tolerated treatment well with thoracic stretching and BLE strength/endurance training on NuStep. Time spent discussing POC as it expires at next session. Physical Therapy Plan Frequency and Duration Frequency of 2x/Week Treatment Plan of Care Start 03/04/25 Date Plan of Care End 05/04/25 Date Next Visit Focus/Plan Next Note Type Progress Note Next Visit Plan Progress note or D/C, HEP consolidation
--- NOTE | 2025-05-03 18:37 | PT.OPPOC ---
Physical, Occupational & Speech Therapy At [facility] Current Diagnoses Cerebral infarction, unspecified (05/03/25) Unspecified osteoarthritis, unspecified site (05/03/25) Pain in left knee (05/03/25) Low back pain, unspecified (05/03/25) Unsteadiness on feet (05/03/25) Arthrodesis status (05/03/25) Visit Care Team Role Provider Type HAMZAH Navas Family Provider Non-Staff Specialty: [facility] Practice Address: [address] [place] [address], [id number] Email: Nabor Starkey MD Attending Provider Physician Primary Care Provider Referring Provider Specialty: [facility] Address: [address] [place] [address] Email: [email or web address] Plan Of Care PT OP: Lower Back/Lower Extremity Start: 04/11/25 13:03 Freq: Status: Active Protocol: Document 05/03/25 13:51 MASONRY CONTRACTOR ADMINISTRATOR (Rec: 05/03/25 14:34 MASONRY CONTRACTOR ADMINISTRATOR Laptop) Out-Patient Physical Therapy Visit Information Visit Information Visit Type Progress Note Visit Start Time 13:50 Visit Stop Time 14:34 Visit Number 38 Number of CIGARETTE MAKING MACHINE OPERATOR Visits 0 Precautions Precautions monitor BP pre-ex, during ex, post ex OP-PT Subjective Patient Comments Patient Comments Pt reports feeling good, 0/10 current pain. Cardio Equipment Recumbent Elliptical (NuStep) Duration (Minutes) 5 Resistance L5 Seat Position 6 Other BUEs and BLEs VC for full ROM and decreased UT Therapeutic Exercises Sitting Exercises Lateral trunk Lean stretch Sitting Exercise UE on hip with lateral flex lean alt sides Name Side left Reps/Minutes x10 each side with 5s hold Other Exercises HEP review Other Exercise Name provided new copies of pt's entire HEP to pt per her request Comments had discussion of doing just 30 mins of HEP every day for improved complian Gait Training Gait Activity 6MWT Device Used 3WW Level of Assistance spv Surface even Distance/Duration 709' 5 mins 20s Treatment Focus endurance Comments 3-4 short standing rest breaks Physical Therapy Assessment Goals Three Impairment Pt able to ambulate 306' with 4WW during 2MWT Residential Goal (LTG) Pt to demonstrate ability to ambulate >700' using LRAD during a 6MWT to demonstrate improved activity tolerance. Goal progression: Pt will amb at least 1000' using LRAD during 6MWT to demonstrate improved activity tolerance and progress towards norms for age. 12/12/24: 2MWT /c 3WW: 332' 03/04/25: 2MWT: 346' 04/04/2025 357 ' with 3WW 05/03: MET 709' in 5mins 20s with 3WW LTG Duration 06/02/25 MET Two Impairment Pt presents with a severe increased risk of falls, per Dominguez score () Short Term Goal (STG Pt to demonstrate a decrease in falls risk by improving ) her score on the Dominguez Balance Scale by at least six points to 35/56 STG Duration Met Edge Molder Goal (LTG) Pt to demonstrate a decrease in falls risk by improving her score on the Dominguez Balance Scale by at least five points to 40/56 04/04/2025 45/56 LTG Duration 05/04/25 MET One Impairment Pt does not have an appropriate home exercise program Short Term Goal (STG Pt to be independent and compliant with an appropriate ) HEP 02/25/25: resisted clamshell and marching TB #4, LAQ AROM, heel& toe raises. 04/04/2025 Patient reports performing HEP 5 X a week 05/03: Progressing, Pt reports practicing her HEP about 3-4x/wks, personal goal of 1x/day STG Duration 06/02/25 Assessment Summary Assessment Pt demonstrated great progress towards goal of improved activity tolerance amb 709' in 6MWT to meet goal. Goal updated to amb 1,000' in 6MWT in order to progress towards norms for age range. POC extended 30 days to continue progressing activity tolerance, safety, and ind with HEP for improved compliance after D/C. Physical Therapy Plan Frequency and Duration Frequency of 2x/Week Treatment Plan of Care Start 03/04/25 Date Plan of Care End 06/02/25 Date Next Visit Focus/Plan Next Note Type Treatment Note Next Visit Plan BLE strength and endurance, thoracic mobility/ stretching Plan of Care Dates Plan of Care Start Date 03/04/25 Plan of Care End Date 06/02/25 Electronically Signed by: Sri Madrigal, PT 05/03/25 [id number] If you are in agreement with this Plan of Care, please return a signed and dated copy. I have reviewed this Plan of Care and certify that the skilled therapy services above are required to meet the patient?s needs. Physician Signature Date Printed Name and Credentials Clinical Instructor Signature Printed Name and Credentials
--- NOTE | 2025-05-07 16:12 | PT.OTN ---
Current Diagnoses Cerebral infarction, unspecified (05/07/25) Unspecified osteoarthritis, unspecified site (05/07/25) Pain in left knee (05/07/25) Low back pain, unspecified (05/07/25) Unsteadiness on feet (05/07/25) Arthrodesis status (05/07/25) Physical Therapy Treatment Note PT OP: Lower Back/Lower Extremity Start: 04/11/25 13:03 Freq: Status: Active Protocol: Document 05/07/25 15:29 MAINTAINER CENTRAL OFFICE (Rec: 05/07/25 16:12 MAINTAINER CENTRAL OFFICE Laptop) Out-Patient Physical Therapy Visit Information Visit Information Visit Type Treatment Note Visit Start Time 15:28 Visit Stop Time 16:06 Visit Number 39 Number of DEPUTY ASSESSOR Visits 0 Progress Note Due 06/01/25 Precautions Precautions monitor BP pre-ex, during ex, post ex OP-PT Subjective Patient Comments Patient Comments Pt reports current pain in L low back at 4/10. Therapeutic Exercises Supine Exercises DKTC Side bilateral Equipment Used dowel Reps/Minutes 30s x2 Low back rotations Supine Exercise Name LE together rocking side to side Equipment Used x10 Comments held end ROM few times with emphasis in breathing, limited going L Glute bridge Reps/Minutes x10 Comments very low ROM, VC for exhale on lift Sidelying Exercises Clamshells Side bilateral Reps/Minutes x15 Comments TC at post hip to prevent roll back, limited ROM d/t weakness Sitting Exercises Lateral trunk Lean stretch Sitting Exercise UE on hip with lateral flex and overhead reach Name Side left Reps/Minutes x10 each side with 5s hold Standing Exercises Hip Abd Side bilateral Equipment Used supporting on high table Reps/Minutes x10 each side Hip Extension Side bilateral Equipment Used supporting on high table Reps/Minutes x10 each side Marches Side bilateral Equipment Used supporting on high table 1 UE Reps/Minutes 5x2 alt sides Comments min support with lifting of RLE Physical Therapy Assessment Goals Three Impairment Pt able to ambulate 306' with 4WW during 2MWT Cabin Equipment Supervisor Goal (LTG) Pt to demonstrate ability to ambulate >700' using LRAD during a 6MWT to demonstrate improved activity tolerance. Goal progression: Pt will amb at least 1000' using LRAD during 6MWT to demonstrate improved activity tolerance and progress towards norms for age. 12/12/24: 2MWT /c 3WW: 332' 03/04/25: 2MWT: 346' 04/04/2025 357 ' with 3WW 05/03: MET 709' in 5mins 20s with 3WW LTG Duration 06/02/25 MET Two Impairment Pt presents with a severe increased risk of falls, per Dominguez score () Short Term Goal (STG Pt to demonstrate a decrease in falls risk by improving ) her score on the Dominguez Balance Scale by at least six points to 35/56 STG Duration Met Penitentiary Goal (LTG) Pt to demonstrate a decrease in falls risk by improving her score on the Dominguez Balance Scale by at least five points to 40/56 04/04/2025 45/56 LTG Duration 05/04/25 MET One Impairment Pt does not have an appropriate home exercise program Short Term Goal (STG Pt to be independent and compliant with an appropriate ) HEP 02/25/25: resisted clamshell and marching TB #4, LAQ AROM, heel& toe raises. 04/04/2025 Patient reports performing HEP 5 X a week 05/03: Progressing, Pt reports practicing her HEP about 3-4x/wks, personal goal of 1x/day STG Duration 06/02/25 Assessment Summary Assessment Pt tolerated all hip strengthening and balance training via standing modified SLS hip strengthening. Physical Therapy Plan Frequency and Duration Frequency of 2x/Week Treatment Plan of Care Start 03/04/25 Date Plan of Care End 06/02/25 Date Next Visit Focus/Plan Next Note Type Treatment Note Next Visit Plan BLE strength and endurance, thoracic mobility/ stretching
[2025-05-09 15:15] VITALS: BP 136/74
--- NOTE | 2025-05-09 15:59 | PT.OPPOC ---
Physical, Occupational & Speech Therapy At [facility] Current Diagnoses Cerebral infarction, unspecified (05/09/25) Unspecified osteoarthritis, unspecified site (05/09/25) Pain in left knee (05/09/25) Low back pain, unspecified (05/09/25) Unsteadiness on feet (05/09/25) Arthrodesis status (05/09/25) Visit Care Team Role Provider Type HAMZAH Navas Family Provider Non-Staff Specialty: Family Practice Address: [address] [place] [address], [id number] Email: Nabor Starkey MD Attending Provider Physician Primary Care Provider Referring Provider Specialty: [facility] Address: [address] [place] [address] Email: [email or web address] PT OP: Lower Back/Lower Extremity Start: 04/11/25 13:03 Freq: Status: Active Protocol: Document 05/09/25 15:15 DCW (Rec: 05/09/25 15:58 DCW [id number]) Out-Patient Physical Therapy Visit Information Visit Information Visit Type Treatment Note Visit Start Time 15:15 Visit Stop Time 16:00 Visit Number 40 Number of ASSISTANT PROFESSOR OF PSYCHOLOGY Visits 0 Progress Note Due 06/01/25 Precautions Precautions monitor BP pre-ex, during ex, post ex Vital Signs Blood Pressure Sitting Blood Pressure (90/ 136/74 H 60-120/80 mmHg) Blood Pressure Automatic Cuff,Left Upper Extremity Source OP-PT Subjective Patient Comments Patient Comments I'm feeling great...well, pretty good. Gym Equipment Shuttle Recovery Unilateral Squats Resistance 50# (two navy) Shuttle Recovery Stable Platform Reps/Time x20x Bilateral Squats Resistance 100# (four navy) Shuttle Recovery Stable Platform Reps/Time x25 Therapeutic Exercises Standing Exercises Hamstring Curls Standing Exercise HS curls Name Side bilateral Resistance 2# Hip Abd Side bilateral Equipment Used // bars Reps/Minutes x10 each side Hip Extension Side bilateral Equipment Used // bars Reps/Minutes x10 each side Marches Side bilateral Resistance 2# Equipment Used // bars Reps/Minutes x10 Comments min support with lifting of RLE Physical Therapy Assessment Goals Three Impairment Pt able to ambulate 306' with 4WW during 2MWT Half-Way Goal (LTG) Pt to demonstrate ability to ambulate >700' using LRAD during a 6MWT to demonstrate improved activity tolerance. Goal progression: Pt will amb at least 1000' using LRAD during 6MWT to demonstrate improved activity tolerance and progress towards norms for age. 12/12/24: 2MWT /c 3WW: 332' 03/04/25: 2MWT: 346' 04/04/2025 357 ' with 3WW 05/03: MET 709' in 5mins 20s with 3WW LTG Duration 07/09/25 Two Impairment Pt presents with a severe increased risk of falls, per Dominguez score () Short Term Goal (STG Pt to demonstrate a decrease in falls risk by improving ) her score on the Dominguez Balance Scale by at least six points to 35/56 STG Duration Met Vacuum Spindle Sander Goal (LTG) Pt to demonstrate a decrease in falls risk by improving her score on the Dominguez Balance Scale by at least five points to 40/56 04/04/2025 45/56 LTG Duration 05/04/25 MET One Impairment Pt does not have an appropriate home exercise program Short Term Goal (STG Pt to be independent and compliant with an appropriate ) HEP 02/25/25: resisted clamshell and marching TB #4, LAQ AROM, heel& toe raises. 04/04/2025 Patient reports performing HEP 5 X a week 05/03: Progressing, Pt reports practicing her HEP about 3-4x/wks, personal goal of 1x/day STG Duration 07/09/25 Assessment Summary Assessment Pt able to complete 6MWT today for the first time, ambulated 850', nearing progression goal of 1000'. Continues to demonstrate improvement, will likely benefit from continued skilled therapeutic intervention focusing on activity tolerance, strengthening, and balance. Does have an upcoming shoulder surgery, will need to discharge from PT at that time. Physical Therapy Plan Frequency and Duration Frequency of 2x/Week Treatment Plan of Care Start 05/09/25 Date Plan of Care End 06/26/25 Date Therapeutic Interventions Therapeutic Balance Training,Canalithic Repositioning,Coordination Interventions Training,Gait Training,Home Exercise Program,Joint Mobilizations,Manual Therapy,Neuromuscular Re-education ,Patient/Caregiver Education,Self-Care/Home Management, Soft Tissue Mobilization,Therapeutic Activities, Therapeutic Exercises,Vestibular Rehabilitation Next Visit Focus/Plan Next Note Type Treatment Note Next Visit Plan BLE strength and endurance, thoracic mobility/ stretching Plan of Care Dates Plan of Care Start Date 05/09/25 Plan of Care End Date 06/26/25 Electronically Signed by: Santi No, PT 05/09/25 [id number] If you are in agreement with this Plan of Care, please return a signed and dated copy. I have reviewed this Plan of Care and certify that the skilled therapy services above are required to meet the patient?s needs. Physician Signature Date Printed Name and Credentials Clinical Instructor Signature Printed Name and Credentials
--- NOTE | 2025-06-10 15:11 | PT.OPPN ---
Current Diagnoses Cerebral infarction, unspecified (06/10/25) Unspecified osteoarthritis, unspecified site (06/10/25) Pain in left knee (06/10/25) Low back pain, unspecified (06/10/25) Unsteadiness on feet (06/10/25) Arthrodesis status (06/10/25) Physical Therapy Progress Note PT OP: Lower Back/Lower Extremity Start: 04/11/25 13:03 Freq: Status: Active Protocol: Document 06/10/25 14:30 DCW (Rec: 06/10/25 15:10 DCW [id number]) Out-Patient Physical Therapy Visit Information Visit Information Visit Type Treatment Note Visit Start Time 14:30 Visit Stop Time 15:15 Visit Number 41 Number of PASTEURIZING SUPERVISOR Visits 0 Progress Note Due 07/10/25 Evaluation Information Evaluation Date 10/10/24 Precautions Precautions monitor BP pre-ex, during ex, post ex OP-PT Subjective Patient Comments Patient Comments Pt reports her shoulder replacement surgery is next week. Cardio Equipment Recumbent Stepper (Sci-Fit) Duration (Minutes) 7 Resistance 3 Seat Position 9 Therapeutic Exercises Standing Exercises Hamstring Curls Standing Exercise HS curls Name Side bilateral Resistance 4# Hip Abd Standing Exercise Hip Abduction Name Side bilateral Resistance 4# Equipment Used // bars Reps/Minutes x10 each side Hip Extension Standing Exercise Hip Extension Name Side bilateral Resistance 4# Equipment Used // bars Reps/Minutes x10 each side Marches Standing Exercise Marching Name Side bilateral Resistance 4# Equipment Used // bars Reps/Minutes x10 Neuro Re-Education Treatment Balance Activities retro stepping Details Retro ambulation Equipment // bars Reps/Duration 10 feet x4 Comments UE support Tandem Details Tandem Stance Surface AirEx Equipment // bars Foam Details EO/EC Surface AirEx Equipment // bars Physical Therapy Assessment Impairments Impairments Activity Tolerance,Balance,Functional Activities, Functional Mobility,Gait,Pain,Posture,Strength,Tone, Transfers Goals Three Impairment Pt able to ambulate 306' with 4WW during 2MWT Field Hauler Goal (LTG) Pt to demonstrate ability to ambulate >700' using LRAD during a 6MWT to demonstrate improved activity tolerance. Goal progression: Pt will amb at least 1000' using LRAD during 6MWT to demonstrate improved activity tolerance and progress towards norms for age. 12/12/24: 2MWT /c 3WW: 332' 03/04/25: 2MWT: 346' 04/04/2025 357 ' with 3WW 05/03: MET 709' in 5mins 20s with 3WW LTG Duration 07/09/25 Two Impairment Pt presents with a severe increased risk of falls, per Dominguez score () Short Term Goal (STG Pt to demonstrate a decrease in falls risk by improving ) her score on the Dominguez Balance Scale by at least six points to 35/56 STG Duration Met Jail Goal (LTG) Pt to demonstrate a decrease in falls risk by improving her score on the Dominguez Balance Scale by at least five points to 40/56 04/04/2025 45/56 LTG Duration 05/04/25 MET One Impairment Pt does not have an appropriate home exercise program Short Term Goal (STG Pt to be independent and compliant with an appropriate ) HEP 02/25/25: resisted clamshell and marching TB #4, LAQ AROM, heel& toe raises. 04/04/2025 Patient reports performing HEP 5 X a week 05/03: Progressing, Pt reports practicing her HEP about 3-4x/wks, personal goal of 1x/day STG Duration 07/09/25 Assessment Summary Assessment PT has met most original goals, however goals have since been progressed. PT doing quite well, but will be undergoing a TSA next week. If pt is unable to schedule another visit prior to surgery, she will need to be discharged and return with a new referral following her change in status. Physical Therapy Plan Frequency and Duration Frequency of 2x/Week Treatment Plan of Care Start 05/09/25 Date Plan of Care End 06/26/25 Date Therapeutic Interventions Therapeutic Balance Training,Canalithic Repositioning,Coordination Interventions Training,Gait Training,Home Exercise Program,Joint Mobilizations,Manual Therapy,Neuromuscular Re-education ,Patient/Caregiver Education,Self-Care/Home Management, Soft Tissue Mobilization,Therapeutic Activities, Therapeutic Exercises,Vestibular Rehabilitation Next Visit Focus/Plan Next Note Type Treatment Note Next Visit Plan BLE strength and endurance, thoracic mobility/ stretching
--- NOTE | 2025-06-18 12:55 | PT.OPDS ---
Current Diagnoses Cerebral infarction, unspecified (06/18/25) Unspecified osteoarthritis, unspecified site (06/18/25) Pain in left knee (06/18/25) Low back pain, unspecified (06/18/25) Unsteadiness on feet (06/18/25) Arthrodesis status (06/18/25) Visit Care Team Role Provider Type HAMZAH Navas Family Provider Non-Staff Specialty: [facility] Address: [address] [place] [address], [id number] Email: Nabor Starkey MD Attending Provider Physician Primary Care Provider Referring Provider Specialty: [facility] Address: [address] [place] [address], [address] Email: [email or web address] Visit Number Visit Number 42 Discharge Summary PT OP: Lower Back/Lower Extremity Start: 04/11/25 13:03 Freq: Status: Active Protocol: Document 06/18/25 12:17 DCW (Rec: 06/18/25 12:54 DCW [id number]) Out-Patient Physical Therapy Visit Information Visit Information Visit Type Discharge Summary Visit Start Time 12:17 Visit Stop Time 13:00 Visit Number 42 Number of CLIPPER AND TURNER Visits 0 Progress Note Due 07/10/25 Evaluation Information Evaluation Date 10/10/24 Precautions Precautions monitor BP pre-ex, during ex, post ex OP-PT Subjective Patient Comments Patient Comments Pt having shoulder replacement next week, she was confused on the dates last week. Cardio Equipment Recumbent Stepper (Sci-Fit) Duration (Minutes) 7 Resistance 3 Seat Position 9 Gym Equipment Shuttle Recovery Unilateral Squats Resistance 50# Shuttle Recovery Stable Platform Reps/Time x20 Bilateral Squats Resistance 100# Shuttle Recovery Stable Platform Reps/Time x25 Neuro Re-Education Treatment Balance Activities Hurdles Details Hurdles Equipment // bars Comments Forward, UE assist Foam Details EO/EC, Head turns Surface AirEx Equipment // bars Physical Therapy Assessment Impairments Impairments Activity Tolerance,Balance,Functional Activities, Functional Mobility,Gait,Pain,Posture,Strength,Tone, Transfers Goals Three Impairment Pt able to ambulate 306' with 4WW during 2MWT Welding Machine Operator Electron Beam Goal (LTG) Pt to demonstrate ability to ambulate >700' using LRAD during a 6MWT to demonstrate improved activity tolerance. Goal progression: Pt will amb at least 1000' using LRAD during 6MWT to demonstrate improved activity tolerance and progress towards norms for age. 12/12/24: 2MWT /c 3WW: 332' 03/04/25: 2MWT: 346' 04/04/2025 357 ' with 3WW 05/03: MET 709' in 5mins 20s with 3WW LTG Duration 07/09/25 Two Impairment Pt presents with a severe increased risk of falls, per Dominguez score () Short Term Goal (STG Pt to demonstrate a decrease in falls risk by improving ) her score on the Dominguez Balance Scale by at least six points to 35/56 STG Duration Met Welding Machine Operator Electron Beam Goal (LTG) Pt to demonstrate a decrease in falls risk by improving her score on the Dominguez Balance Scale by at least five points to 40/56 04/04/2025 45/56 LTG Duration 05/04/25 MET One Impairment Pt does not have an appropriate home exercise program Short Term Goal (STG Pt to be independent and compliant with an appropriate ) HEP 02/25/25: resisted clamshell and marching TB #4, LAQ AROM, heel& toe raises. 04/04/2025 Patient reports performing HEP 5 X a week 05/03: Progressing, Pt reports practicing her HEP about 3-4x/wks, personal goal of 1x/day STG Duration 07/09/25 Assessment Summary Assessment Pt discharging from skilled therapy secondary to change in medical status due to upcoming shoulder replacement . Pt overall showed good progress with balance, gait, and strength throughout her most recent course of PT. Will likely be returning for PT s/p TSA. Physical Therapy Plan Frequency and Duration Frequency of 2x/Week Treatment Plan of Care Start 05/09/25 Date Plan of Care End 06/26/25 Date Therapeutic Interventions Therapeutic Balance Training,Canalithic Repositioning,Coordination Interventions Training,Gait Training,Home Exercise Program,Joint Mobilizations,Manual Therapy,Neuromuscular Re-education ,Patient/Caregiver Education,Self-Care/Home Management, Soft Tissue Mobilization,Therapeutic Activities, Therapeutic Exercises,Vestibular Rehabilitation Discharge Physical Therapy Discharge Reasons Change in Medical Status Next Visit Focus/Plan Next Note Type Discharge Summary Next Visit Plan BLE strength and endurance, thoracic mobility/ stretching
== END 2025-07-23 09:29 | disposition home or self-care (01) ==
LOC: PHYS 12:15
PROVIDERS: Family Provider Nurse Practitioner; PCP Family Medicine; Referring Provider Family Medicine; Visit Provider Family Medicine
DX: M54.50 Low back pain, unspecified (principal); Z98.1 Arthrodesis status; M19.90 Unspecified osteoarthritis, unspecified site; I63.9 Cerebral infarction, unspecified; R26.81 Unsteadiness on feet; M25.562 Pain in left knee
CPT/HCPCS: 97110; 97112; 97116; 97163; 97530; 97535

== ENCOUNTER → 2025-07-15 14:46 | Outpatient (CLI) | payer MEDICARE, MEDICAID, SELFPAY ==
[2024-09-07 13:07] VITALS: BMI 29.8
--- NOTE | 2025-07-15 14:48 | DI.RAD.S_ITS ---
PROCEDURE: XR FEMUR RT 2V, 4 images total
--- NOTE | 2025-07-15 14:48 | DI.RAD.S_ITS ---
PROCEDURE: XR SHOULDER RT MIN 3V
--- NOTE | 2025-07-15 14:48 | DI.RAD.S_ITS ---
PROCEDURE: XR HIP W PEL IF DONE RT 2V
== END ==
PROVIDERS: Family Provider Nurse Practitioner; PCP Family Medicine; Referring Provider Family Medicine; Visit Provider Family Medicine
DX: M19.011 Primary osteoarthritis, right shoulder (principal); M47.812 Spondylosis without myelopathy or radiculopathy, cervical region; M47.816 Spondylosis without myelopathy or radiculopathy, lumbar region; M85.852 Other specified disorders of bone density and structure, left thigh; M25.511 Pain in right shoulder; Z79.01 Long term (current) use of anticoagulants; Z96.619 Presence of unspecified artificial shoulder joint; Z96.643 Presence of artificial hip joint, bilateral
CPT/HCPCS: 73030; 73502; 73552

== ENCOUNTER 2025-08-14 14:56 | Observation (INO) | payer MEDICARE, MEDICAID, SELFPAY ==
[2024-09-07 13:07] VITALS: BMI 29.8
--- NOTE | 2025-08-14 15:30 | DI.RAD.S_ITS ---
PROCEDURE: XR HUMERUS RT 2V INDICATIONS: fall TECHNIQUE: 3 views of the humerus were acquired. COMPARISON: None. FINDINGS: Bones: No fractures or dislocations. No suspicious bony lesions. Shoulder arthroplasty. Hardware is intact without hardware fracture or periprosthetic lucency to suggest loosening. Alignment is stable. Soft tissues: No suspicious soft tissue calcifications. IMPRESSION: No visualized acute fracture or dislocation. However, if clinical concern and/or pain persist, short interval imaging followup in 7-10 days is recommended, as occult injury cannot be definitively excluded. Dictated by: Megan Flores M.D. on 08/14/2025 at 16:37 Approved by: Megan Flores M.D. on 08/14/2025 at 16:38
--- NOTE | 2025-08-14 15:30 | DI.CT.S_ITS ---
PROCEDURE: CT CERVICAL SPINE WO CON INDICATIONS: fall TECHNIQUE: Noncontrast 3 mm thick sections acquired from the skull base to the T4 level. Sagittal and coronal reformats were then constructed. For radiation dose reduction, the following was used: automated exposure control, adjustment of mA and/or kV according to patient size. COMPARISON: [facility], CT, CT CERVICAL SPINE WITHOUT CONTRAST, 06/25/2017, 20:41. [facility], CT, CT CERVICAL SPINE WO CON, 02/07/2025, 13:31. FINDINGS: Image quality: Excellent. Bones: There is quite remote ACDF and interbody fusion at multiple levels. The anterior cervical fixator is from C3 through C5. There is mature interbody fusion from C3 through C7. There is chronic anterolisthesis of C7 on T1. Anterolisthesis has been present dating back to the 2017 study. It was approximately 3 mm at that time. It was 6 mm on the study from 6 months ago. It remains 6 mm on the current study. There is prominent bilateral facet arthropathy at this level. No prevertebral soft tissue swelling is noted. No acute fractures or dislocations are identified. Soft tissues: Prevertebral soft tissues are normal in thickness. No paravertebral hematomas. No apical pneumothoraces. IMPRESSION: 1. No acute fracture or dislocation. 2. Remote well-healed, intact anterior fusion and interbody fusion, which in combination fuse from C3 through C7. 3. There is chronic anterolisthesis of C7 on T1. In 2017 it measured 3 mm. On the study from 6 months ago and the current study it measures 6 mm. Comment: Findings discussed with Dr. Serrato on 08/14/2025 at 1615 hours. Recommend that the patient be seen by her spine surgeon to determine whether any extension of the fusion inferiorly is necessary. Dictated by: Andi Segura M.D. on 08/14/2025 at 15:49 Approved by: Andi Segura M.D. on 08/14/2025 at 16:23
--- NOTE | 2025-08-14 15:30 | DI.CT.S_ITS ---
PROCEDURE: CT HEAD/BRAIN WO CON INDICATIONS: head injury on coumadin TECHNIQUE: Noncontrast 4.5 mm thick angled axial sections acquired from the foramen magnum to the vertex, with coronal and sagittal reformats. For radiation dose reduction, the following was used: automated exposure control, adjustment of mA and/or kV according to patient size. COMPARISON: [facility], CT, CT HEAD/BRAIN WO CON, 05/09/2024, 11:18. FINDINGS: Image quality: Diagnostic. CSF spaces: Basal cisterns are patent. No extra-axial fluid collections. The ventricles are symmetric in size and shape. Brain: No intracranial bleeds or mass effect. There is cerebral volume loss, with resultant ventricular and sulcal prominence. There are periventricular and deep white matter chronic small vessel ischemic changes. There is intracranial internal carotid artery atherosclerosis. Significant senescent basal ganglia calcifications. Skull and face: Calvarium and visualized facial bones appear intact, without suspicious lesions. Sinuses: Visualized sinuses and mastoids are clear. IMPRESSION: 1. No acute intracranial process. 2. Moderate atrophy and chronic microvascular ischemic changes. Dictated by: Megan Flores M.D. on 08/14/2025 at 15:45 Approved by: Megan Flores M.D. on 08/14/2025 at 15:46
--- NOTE | 2025-08-14 15:30 | DI.RAD.S_ITS ---
PROCEDURE: XR CHEST 1V INDICATIONS: fall TECHNIQUE: One view of the chest was acquired. COMPARISON: [facility], CR, XR CHEST 2V, 10/18/2023, 14:55. FINDINGS: Surgical changes and devices: Right shoulder arthroplasty and thoracolumbar fixation rods. Lungs and pleura: Lungs are clear. No pleural effusions or pneumothorax. Mediastinum: Mediastinal contours appear normal. Heart size is normal. Bones and chest wall: No suspicious bony lesions. Overlying soft tissues appear unremarkable. IMPRESSION: No acute pulmonary process. Dictated by: Megan Flores M.D. on 08/14/2025 at 16:37 Approved by: Megan Flores M.D. on 08/14/2025 at 16:37
--- NOTE | 2025-08-14 15:33 | EKG_ITS ---
[facility] [address] [place] [address] Test Date: 2025-08-14 Pat Name: Janet Paris Department: [facility] Room: Gender: Female Priming Powder Premix Blender: COURTNEY : 1945 Requested By: Order Number: [id number] Reading MD: Leonard Obrien MD Measurements Intervals [place] Rate: 56 P: 77 WV: 240 QRS: 16 QRSD: 76 T: 53 QT: 438 QTc: 422 Interpretive Statements Sinus bradycardia with marked sinus arrhythmia with 1st degree AV block Septal infarct , age undetermined Electronically Signed On 08-15-2025 9:39:04 PST by Leonard Obrien MD
--- NOTE | 2025-08-14 15:34 | PC.NURSE ---
Modified trauma called overhead at this time, patient to CT.
[2025-08-14 15:35] VITALS: BP 154/76; PULSE 77; RESP 17; TEMP 37; O2SAT 99; BMI 21.9
[2025-08-14 16:32] LABS: Add Manual Diff / Slide Review NO; Hematocrit 34.6 % (36-46); Hemoglobin 11.5 g/dL (12.0-16.0); Lymphocytes Absolute Auto 1100 /uL (1100-4500); Mean Corpuscular HGB Conc 33.3 % (30-36); Mean Corpuscular Hemoglobin 28.8 PG (26-34); Mean Corpuscular Volume 86.4 fL (80-100); Platelet Count 270 X10^3/uL (150-400)
[2025-08-14 16:33] LABS: INR 1.4 (0.9-1.3); Prothrombin Time 15.4 SECONDS (9.4-12.5)
[2025-08-14 16:36] LABS: PTT Partial Thromboplastin Tim 36 SECONDS (25.1-36.5)
[2025-08-14 16:38] LABS: Lactate (Lactic Acid) 0.7 mmol/L (0.7-2.1)
[2025-08-14 18:01] LABS: Procalcitonin 0.052 ng/mL (<0.5)
--- NOTE | 2025-08-14 18:06 | ED.GENADULT ---
HPI - General Adult General Chief complaint: Trauma Stated complaint: Fall 7 x in 2days, shoulder head and back pn Time Seen by Provider: 08/14/25 16:16 History of Present Illness HPI narrative: 80-year-old female with history of stroke and residual dysarthria of lesser degree since January 2025, takes Eliquis and Plavix, history of atrial fibrillation, reports neck surgery [facility] 6 weeks ago using postoperative soft collar 24 hours with sensation of daytime use of collar about one-week ago still using collar support at night, has 2 days duration of intermittent ground level fall, no preceding chest pain or shortness of breath or palpitation or racing heart like symptoms. No focal weakness to face arm or leg. No focal numbness to face arm or leg. Tonight she fell to the left-hand side, sustained bruising to her left forehead, left top of her head, left jaw. She has also Related Data Home Medications ?Medication ?Instructions ?Recorded ?Confirmed acetaminophen 500 mg tablet 1,000 mg PO TID PRN Pain (Scale 11/01/22 07/27/25 (Tylenol Extra Strength) Score 1-3) carvedilol 12.5 mg tablet 12.5 mg PO BID 03/28/24 07/27/25 clopidogrel 75 mg tablet 75 mg PO DAILY 12/27/24 07/27/25 losartan 25 mg tablet 25 mg PO DAILY 03/06/25 07/27/25 pantoprazole 40 mg tablet,delayed 40 mg PO DAILY 03/06/25 07/27/25 release Previous Rx's ?Medication ?Instructions ?Recorded nitroglycerin 0.4 mg sublingual See Rx Instructions .Route 10/11/22 tablet .COMPLEX ##25 tiotropium 2.5 mcg-olodaterol 2.5 2 puff inhalation BID #4 grams 10/17/23 mcg/actuation mist for inhalation lidocaine 5 % topical patch 2 patch topical DAILY PRN pain #60 11/16/23 ea Circulation and pain relief are See Rx Instructions .Route 03/14/24 compression foot and calf boot .COMPLEX #2 ea Disabled Parking Permit See Rx Instructions .Route 04/02/24 .COMPLEX #1 unit atorvastatin 80 mg tablet 80 mg PO QPM #90 tabs 05/18/24 amlodipine 5 mg tablet 5 mg PO DAILY #90 tabs 07/30/24 nystatin 100,000 unit/gram topical 1 applic topical BID #30 grams 10/24/24 powder zaleplon 10 mg capsule 20 mg (2 x 10 mg) PO BEDTIME PRN 03/19/25 sleep #180 caps buprenorphine 15 mcg/hour weekly 1 patch transdermal Q7D #4 ea 04/15/25 transdermal patch bupropion HCl 300 mg 24 hr tablet, 300 mg PO QAM #90 tabs 04/15/25 extended release (Wellbutrin XL) dextroamphetamine-amphetamine 20 See Rx Instructions .Route 06/17/25 mg tablet .COMPLEX #60 tabs dextroamphetamine-amphetamine 20 20 mg PO BID #60 tabs 06/17/25 mg tablet (Adderall) dextroamphetamine-amphetamine 20 20 mg PO BID #60 tabs 06/17/25 mg tablet (Adderall) methocarbamol 750 mg tablet 750 mg PO Q8H PRN muscle spasms 06/17/25 #90 tabs duloxetine 60 mg capsule,delayed 60 mg PO DAILY #90 caps 07/05/25 release buprenorphine 12 mg-naloxone 3 mg 2 film buccal Q24H #60 ea 07/15/25 sublingual film (Suboxone) buprenorphine 8 mg-naloxone 2 mg 2 film buccal BEDTIME PRN pain #30 07/15/25 sublingual film ea apixaban 5 mg tablet (Eliquis) 5 mg PO BID #200 tabs 07/29/25 Allergies Allergy/AdvReac Type Severity Reaction Status Date / Time ipratropium (From Atrovent) Allergy Intermediate voice spasm Verified 08/14/25 15:39 zolpidem (From Ambien) AdvReac Severe sleep Verified 08/14/25 15:39 walking, eating ciprofloxacin AdvReac Intermediate FLUSHING, Verified 08/14/25 15:39 SWEATS, SOB citalopram (CITALOPRAM) AdvReac Intermediate Hallucinati Verified 08/14/25 15:39 ons cyclobenzaprine AdvReac Intermediate FLUSHING, Verified 08/14/25 15:39 SWEATS, SOB pregabalin AdvReac Intermediate FLUSHING/SW Verified 08/14/25 15:39 EATS/SOB Patient History Medical History Primary osteoarthritis, right shoulder Right shoulder pain Type 2 diabetes mellitus with other specified complication Type 2 diabetes mellitus with diabetic chronic kidney disease Chronic kidney disease, stage 4 (severe) 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 arthritis with rheumatoid factor of multiple sites without organ or systems involvement Morbid (severe) obesity due to excess calories Type 2 diabetes mellitus with diabetic peripheral angiopathy without gangrene Type 2 diabetes mellitus with diabetic polyneuropathy Bipolar 1 disorder Insomnia At high risk for cardiovascular disease (Unknown) Hyperlipidemia Severe 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, without psychotic features (07/05/16) Lumbar radiculopathy Hypertensive heart and chronic kidney disease with heart failure and stage 1 through stage 4 chronic kidney disease, or unspecified chronic kidney disease Cardiomegaly CKD (chronic kidney disease) ADD (attention deficit disorder) Peripheral vascular disease of extremity with claudication Kidney cysts Sacralization of lumbar vertebra Foraminal stenosis of lumbar region COVID SOB (shortness of breath) on exertion Class 1 obesity due to excess calories with body mass index (BMI) of 34.0 to 34.9 in adult Depression ADD (attention deficit disorder) Dysphagia Frequent falls Sciatica Loss of voice Dysphagia Encounter for Medicare annual wellness exam Screening for malignant neoplasm of colon COPD (chronic obstructive pulmonary disease) Right leg injury UTI (urinary tract infection) Bilirubin in urine Raynaud's disease without gangrene Peripheral neuropathy Venous stasis Rheumatoid arthritis Fibromyalgia Pneumonia Cystic fibrosis (~1956) Post traumatic stress disorder (PTSD) Anxiety Arachnoiditis Stroke Restless leg syndrome Scoliosis Osteoporosis Degenerative joint disease (DJD) of lumbar spine Foot pain Fibromyalgia Chronic back pain Cervical spine disease Ankle pain Anemia Vertigo (~1968) Cataracts, bilateral Heavy menstrual period Abnormal Pap smear of cervix (~1956) Kidney stones GI bleeding GERD (gastroesophageal reflux disease) Skin cancer (~1996) Hypertension Atrial fibrillation Surgical History S/P shoulder replacement History of lumbar fusion History of neck surgery History of back surgery History of knee replacement (11/29/16) Status post bunionectomy (08/11/15) History of hip replacement S/P total abdominal hysterectomy and bilateral salpingo-oophorectomy Status post tonsillectomy and adenoidectomy Status post tubal ligation Status post cholecystectomy Status post appendectomy Social History marital status: household members: spouse, family and friend(s) Smoking Status: Never smoker alcohol intake: never substance use type: does not use Smoking Status: Never smoker alcohol intake frequency: 0-2 drinks per day Exam Narrative Exam Narrative: GENERAL: Well-developed patient, in mild distress. HEAD: Bruising to left forehead, left parietal scalp EYES: Pupils equal round and reactive. Extraocular motions intact. No scleral icterus. No injection or drainage. ENT: Nose without bleeding, purulent drainage. Throat without erythema, tonsillar hypertrophy or exudate. Airway patent. Small abrasion to left lateral mid mandible, without gross deformity, able to open her mouth well, no oral lesions obvious. NECK: Trachea midline. Not wearing cervical collar. No midline tenderness C-spine. No gross step-off obvious. CARDIOVASCULAR: Regular rate and rhythm without murmurs, gallops, or rubs. RESPIRATORY: Clear to auscultation. Breath sounds equal bilaterally. No wheezes, rales, or rhonchi. GASTROINTESTINAL: Abdomen soft, non-tender, nondistended. EXTREMITIES: No edema or joint tenderness. BACK: Nontender without deformity or crepitance. No flank tenderness. NEURO: Slight slow speech, no historian at bedside, patient thinks it has been the same since her stroke in January 2025 with speech impediment post stroke. Otherwise cranial nerves unremarkable. Motor function 5/5, right upper extremity flexion limited due to musculoskeletal rotator cuff related pain. Sensory intact to light touch bilateral face arm length. SKIN: No rash or erythema of visible areas Initial Vital Signs Initial Vital Signs: Vital Signs Temperature 98.6 F 08/14/25 15:35 Pulse Rate 77 08/14/25 15:35 Respiratory Rate 17 08/14/25 15:35 Blood Pressure 154/76 H 08/14/25 15:35 Pulse Oximetry 99 08/14/25 15:35 Oxygen Delivery Method Room Air 08/14/25 15:35 Course Orders Ordered: Acetaminophen (Acetaminophen 325 Mg Tablet) 975 mg PO Q6H PRN PRN Reason: Fever/Mild Pain (1-3) Amlodipine Besylate (Amlodipine 5 Mg Tablet) 5 mg PO DAILY [facility] Apixaban (Apixaban 5 Mg Tablet) 5 mg PO BID [facility] Atorvastatin Calcium (Atorvastatin 20 Mg Tablet) 80 mg PO QPM [facility] Bupropion HCl (Bupropion Xl 150 Mg Tab) 300 mg PO QAM [facility] Carvedilol (Carvedilol 12.5 Mg Tablet) 12.5 mg PO BID [facility] Clopidogrel Bisulfate (Clopidogrel 75 Mg Tablet) 75 mg PO DAILY [facility] Duloxetine HCl (Duloxetine 30 Mg Capsule.Dr) 60 mg PO DAILY [facility] Naloxone HCl (Naloxone 0.4 Mg/Ml Vial) 0.2 mg IV Q2MIN PRN PRN Reason: Opiate Reversal Non-Formulary Medication (Tiotropium-Olodaterol) 2 puff INHALATION BID [facility] Ondansetron HCl (Ondansetron 4 Mg Odt) 4 mg PO Q8HR PRN PRN Reason: Nausea And Vomiting Pantoprazole Sodium (Pantoprazole Dr 40 Mg Tablet) 40 mg PO DAILY [facility] Discontinued Medications Acetaminophen (Acetaminophen 325 Mg Tablet) 650 mg PO NOW ONE Stop: 08/14/25 22:30 Last Admin: 08/14/25 23:09 Dose: 650 mg Documented By: DEQUAN Vital Signs Vital signs: Vital Signs - 8 hr 08/14/25 22:19 Pulse Rate 60 Respiratory Rate 16 Blood Pressure 145/85 H Pulse Oximetry 98 Oxygen Delivery Method Room Air Medical Decision Making Lab Data Lab results reviewed: Yes I reviewed the patient's lab results. Lab results narrative: White blood cell count 6400, hemoglobin 11.5, platelets adequate. Glucose 82. BUN 24 with creatinine 1.56. Normal serum CO2. Normal electrolytes. Liver functions and lipase normal. Troponin negative/unmeasurable. BNP 565 mild elevation. Lactate and procalcitonin negative. 08/14/25 16:15 08/14/25 16:59 Labs: Lab Results 08/14/25 08/14/25 08/14/25 Range/Units 16:15 16:59 19:19 WBC 6.4 (4.5-11.0) X10^3/uL RBC 4.01 (4.0-5.2) X10^6/uL Hgb 11.5 L (12.0-16.0) g/dL Hct 34.6 L (36-46) % MCV 86.4 (80-100) fL MCH 28.8 (26-34) PG MCHC 33.3 (30-36) % RDW 14.8 (11.6-14.8) % Plt Count 270 (150-400) X10^3/uL Neut % (Auto) 71.4 (50-75) % Lymph % (Auto) 16.8 L (25-40) % [place] % (Auto) 9.2 (3-14) % Eos % (Auto) 1.8 L (2-4) % Baso % (Auto) 0.8 (0-2) % Neut # (Auto) 4600 (5959-1648) /uL Lymph # (Auto) 1100 (5684-8237) /uL [place] # (Auto) 600 (0-900) /uL Eos # (Auto) 100 (0-450) /uL Baso # (Auto) 100 (0-100) /uL PT 15.4 H (9.4-12.5) SECONDS INR 1.4 H (0.9-1.3) APTT 36 (25.1-36.5) SECONDS Sodium 141 (137-145) mmol/L Potassium 4.5 (3.4-5.1) mmol/L Chloride 109 H (98-107) mmol/L Carbon Dioxide 22 (22-32) mmol/L BUN 24 H (7-17) mg/dL Creatinine 1.56 H (0.52-1.04) mg/dL Estimated GFR 33 L (>60) mL/min BUN/Creatinine Ratio 15.4 (6-22) Glucose 82 (70-99) mg/dL Lactate 0.7 (0.7-2.1) mmol/L Calcium 9.6 (8.4-10.2) mg/dL Magnesium 2.0 (1.6-2.3) mg/dL Total Bilirubin 0.5 (0.2-1.3) mg/dL AST 29 (14-36) IU/L ALT 14 (<35) IU/L Alkaline Phosphatase 87 (38-126) U/L Total Creatine Kinase 100 (30-135) U/L Troponin I 0.013 < 0.012 (0.01-0.034) ng/mL NT-Pro-B Natriuret Pep 565 H (<450) pg/mL Total Protein 7.5 (6.3-8.2) g/dL Albumin 4.2 (3.5-5.0) g/dL Globulin 3.3 (1.7-4.1) g/dL Albumin/Globulin Ratio 1.3 (1.0-2.8) Lipase 40 (23-300) U/L Procalcitonin 0.052 (<0.5) ng/mL Imaging Data CT scan - head: Radiologist's Impression: [address] [address] [address] Scan Report Signed Patient: Janet Paris MR#: [id number] : 1945 Acct:[id number] Age/Sex: 80 / F Date of Service: 08/14/25 Loc: ED Accession Number: [id number] Procedure: CT head/brain wo con Ordering Provider: Jossy Zhao MD PROCEDURE: CT HEAD/BRAIN WO CON INDICATIONS: head injury on coumadin TECHNIQUE: Noncontrast 4.5 mm thick angled axial sections acquired from the foramen magnum to the vertex, with coronal and sagittal reformats. For radiation dose reduction, the following was used: automated exposure control, adjustment of mA and/or kV according to patient size. COMPARISON: [facility], CT, CT HEAD/BRAIN WO CON, 05/09/2024, 11:18. FINDINGS: Image quality: Diagnostic. CSF spaces: Basal cisterns are patent. No extra-axial fluid collections. The ventricles are symmetric in size and shape. Brain: No intracranial bleeds or mass effect. There is cerebral volume loss, with resultant ventricular and sulcal prominence. There are periventricular and deep white matter chronic small vessel ischemic changes. There is intracranial internal carotid artery atherosclerosis. Significant senescent basal ganglia calcifications. Skull and face: Calvarium and visualized facial bones appear intact, without suspicious lesions. Sinuses: Visualized sinuses and mastoids are clear. IMPRESSION: 1. No acute intracranial process. 2. Moderate atrophy and chronic microvascular ischemic changes. Dictated by: Megan Flores M.D. on 08/14/2025 at 15:45 Approved by: Megan Flores M.D. on 08/14/2025 at 15:46 CT - cervical spine: Radiologist's Impression: [address] [address] [address] Scan Report Signed Patient: Janet Paris MR#: [id number] : 1945 Acct:[id number] Age/Sex: 80 / F Date of Service: 08/14/25 Loc: ED Accession Number: [id number] Procedure: CT cervical spine wo con Ordering Provider: Jossy Zhao MD PROCEDURE: CT CERVICAL SPINE WO CON INDICATIONS: fall TECHNIQUE: Noncontrast 3 mm thick sections acquired from the skull base to the T4 level. Sagittal and coronal reformats were then constructed. For radiation dose reduction, the following was used: automated exposure control, adjustment of mA and/or kV according to patient size. COMPARISON: [facility], CT, CT CERVICAL SPINE WITHOUT CONTRAST, 06/25/2017, 20:41. [facility], CT, CT CERVICAL SPINE WO CON, 02/07/2025, 13:31. FINDINGS: Image quality: Excellent. Bones: There is quite remote ACDF and interbody fusion at multiple levels. The anterior cervical fixator is from C3 through C5. There is mature interbody fusion from C3 through C7. There is chronic anterolisthesis of C7 on T1. Anterolisthesis has been present dating back to the 2017 study. It was approximately 3 mm at that time. It was 6 mm on the study from 6 months ago. It remains 6 mm on the current study. There is prominent bilateral facet arthropathy at this level. No prevertebral soft tissue swelling is noted. No acute fractures or dislocations are identified. Soft tissues: Prevertebral soft tissues are normal in thickness. No paravertebral hematomas. No apical pneumothoraces. IMPRESSION: 1. No acute fracture or dislocation. 2. Remote well-healed, intact anterior fusion and interbody fusion, which in combination fuse from C3 through C7. 3. There is chronic anterolisthesis of C7 on T1. In 2017 it measured 3 mm. On the study from 6 months ago and the current study it measures 6 mm. Comment: Findings discussed with Dr. Serrato on 08/14/2025 at 1615 hours. Recommend that the patient be seen by her spine surgeon to determine whether any extension of the fusion inferiorly is necessary. Dictated by: Andi Segura M.D. on 08/14/2025 at 15:49 Approved by: Andi Segura M.D. on 08/14/2025 at 16:23 Chest x-ray: Radiologist's Impression: dem, ciprofloxacin, citalopram, cyclobenzaprine, pregabalin [address] [address] XRay Report Signed Patient: Janet Paris MR#: [id number] : 1945 Acct:[id number] Age/Sex: 80 / F Date of Service: 08/14/25 Loc: ED Accession Number: [id number] Procedure: XR chest 1V Ordering Provider: Jossy Zhao MD PROCEDURE: XR CHEST 1V INDICATIONS: fall TECHNIQUE: One view of the chest was acquired. COMPARISON: [facility], , XR CHEST 2V, 10/18/2023, 14:55. FINDINGS: Surgical changes and devices: Right shoulder arthroplasty and thoracolumbar fixation rods. Lungs and pleura: Lungs are clear. No pleural effusions or pneumothorax. Mediastinum: Mediastinal contours appear normal. Heart size is normal. Bones and chest wall: No suspicious bony lesions. Overlying soft tissues appear unremarkable. IMPRESSION: No acute pulmonary process. Dictated by: Megan Flores M.D. on 08/14/2025 at 16:37 Approved by: Megan Flores M.D. on 08/14/2025 at 16:37 Extremity x-ray #1: Radiologist's Impression: [facility] [address] [place] [address] XRay Report Signed Patient: Janet Paris MR#: [id number] : 1945 Acct:[id number] Age/Sex: 80 / F Date of Service: 08/14/25 Loc: ED Accession Number: [id number] Procedure: XR humerus RT 2V Ordering Provider: Jossy Zhao MD PROCEDURE: XR HUMERUS RT 2V INDICATIONS: fall TECHNIQUE: 3 views of the humerus were acquired. COMPARISON: None. FINDINGS: Bones: No fractures or dislocations. No suspicious bony lesions. Shoulder arthroplasty. Hardware is intact without hardware fracture or periprosthetic lucency to suggest loosening. Alignment is stable. Soft tissues: No suspicious soft tissue calcifications. IMPRESSION: No visualized acute fracture or dislocation. However, if clinical concern and/or pain persist, short interval imaging followup in 7-10 days is recommended, as occult injury cannot be definitively excluded. Dictated by: Megan Flores M.D. on 08/14/2025 at 16:37 Approved by: Megan Flores M.D. on 08/14/2025 at 16:38 Right hip x-ray series: Radiologist's Impression: [address] [address] XRay Report Signed Patient: Janet Paris MR#: [id number] : 1945 Acct:[id number] Age/Sex: 80 / F Date of Service: 07/15/25 Loc: RAD Accession Number: [id number] Procedure: XR hip w pel RT 2V Ordering Provider: Nabor Starkey MD PROCEDURE: XR HIP W PEL IF DONE RT 2V INDICATIONS: fall with right shoulder and right leg pain TECHNIQUE: AP pelvis and lateral view of the hip acquired. COMPARISON: [facility], CR, XR HIP W PEL IF DONE BHARATHI 3TO4V, 10/25/2022, 11:00. FINDINGS: Right hip arthroplasty without radiographic evidence of periprosthetic fracture. Mild osteopenia adjacent to the acetabular cup inferiorly and the greater trochanter, mildly progressed. Left hip arthroplasty without radiographic evidence of periprosthetic fracture partially imaged. Degenerative changes lower lumbar spine and sacroiliac joints incidentally noted. Two approximately 2 cm oval-shaped low-attenuation areas left iliac bone may be related to prior bone graft donor site or other lytic lesion unchanged. Pattern of constipation incidentally noted. IMPRESSION: Right hip arthroplasty without periprosthetic fracture. Osteopenia mildly progressed. If symptoms persist or worsen, or there is high clinical suspicion of pelvic/abnormality, MRI could be performed. Dictated by: Cornell Patel M.D. on 07/17/2025 at 9:48 Approved by: Cornell Patel M.D. on 07/17/2025 at 9:51 Right femur x-ray series: Radiologist's Impression: [address] [address] XRay Report Signed Patient: Janet Paris MR#: [id number] : 1945 Acct:[id number] Age/Sex: 80 / F Date of Service: 07/15/25 Loc: RAD Accession Number: [id number] Procedure: XR femur RT min 2V Ordering Provider: Nabor Starkey MD PROCEDURE: XR FEMUR RT 2V, 4 images total INDICATIONS: fall with right shoulder and right leg pain TECHNIQUE: 2 views of the femur, 4 images total were acquired. COMPARISON: None. FINDINGS: Status post right total hip arthroplasty without radiographic evidence of periprosthetic fracture. Osteopenia adjacent to the acetabular cup and proximal femoral component progressed. Two approximately 2 cm low-attenuation round areas in the left iliac bone unchanged from the prior exam may be related to bone graft donor sites or other lytic lesion unchanged. Left hip arthroplasty partially imaged. Moderate degenerative changes lower lumbar spine and sacroiliac joints unchanged. Right knee arthroplasty without radiographic evidence of periprosthetic fracture. IMPRESSION: Bilateral hip arthroplasties as discussed above without periprosthetic fracture. Osteopenia. Dictated by: Cornell Patel M.D. on 07/17/2025 at 9:14 Approved by: Cornell Patel M.D. on 07/17/2025 at 9:47 ECG Data Attestation: I personally reviewed and interpreted this ECG as follows: Interpretation: 1634, sinus bradycardia with PACs, ventricular response rate [address] segment elevation or depression changes. WV 190, QRS 78, QTC 394. [facility] Narrative Medical decision making narrative: 80-year-old female with history of atrial fibrillation, chronic Eliquis and Plavix anticoagulation, prior stroke she report January 2025 with residual slurred dysarthria, chart history of left-sided MCA stroke, has had ground level falls x2 since yesterday, 10 weeks ago reported cervical spine surgery [facility] wearing collar night and day until one-week ago when stopped daytime color use, fell today during daytime without collar. No focal weakness to face arm or leg. Has bruising on exam to left forehead, parietal scalp, left jaw. CT head and cervical spine imaging ordered after triage. Chest x-ray and humerus x-rays ordered. CT head, atrophy changes, no acute changes. See radiology report. CT cervical spine. IMPRESSION: 1. No acute fracture or dislocation. 2. Remote well-healed, intact anterior fusion and interbody fusion, which in combination fuse from C3 through C7. 3. There is chronic anterolisthesis of C7 on T1. In 2017 it measured 3 mm. On the study from 6 months ago and the current study it measures 6 mm. Comment: Findings discussed with Dr. Serrato on 08/14/2025 at 1615 hours. Recommend that the patient be seen by her spine surgeon to determine whether any extension of the fusion inferiorly is necessary. See radiology report. Chest x-ray no acute process. See radiology report. EKG shows sinus bradycardia, no atrial fibrillation, no obvious ischemic changes. Right humerus x-ray series, no acute fracture or dislocation. See radiology report. Right hip and femur x-ray series, hip replacement changes, no periprosthetic fracture obvious. See radiology reports. 2199, discussed with [facility] spine surgeon Dr Blanchard. Likely chronic in nature. Could image Csp MRI and CT Head if admitted for further workup of recent frequent falls. Patient had CT angiogram head and neck vessels without thrombosis or significant narrowing on May 2020 4 hour. We will repeat study. We will consult Neurology after study. Consider admission for MRI brain, could add MRI C-spine. 2229, GFR 33, will cancel CT angiogram study. If admitted for MRI brain stroke workup could perform MRA head and neck vessels, or do carotid Doppler study. We will consult Neurology with existing information for disposition planning. 2239, case discussed with [facility] stroke neurology Dr Mcmahon, seems atypical for stroke but reasonable to get MRI Brain given her history of previous stroke on problem list. Could consider vessel imaging with MRA brain without gadolinium, and MRA neck vessels without and with gadolinium, could consider echocardiogram. The above workup recommendations relayed to patient, willing to be admitted. We will contact hospitalist for admission. 2339, case discussed with hospitalist Dr. Espino who accepts patient for admission to observation Critical Care Time Critical Care Time Critical Care Time: Yes Total Critical Care Time: 35 Attestation: The high probability of a clinically significant, sudden or life threatening deterioration of the [cerebrovascular, neurologic, spinal] system(s) required my full and direct attention, intervention and personal management. The aggregate critical care time was [35] minutes. This time is in addition to time spent performing reported procedures but includes the following: [x] Data Review and interpretation [x] Patient assessment and monitoring of vital signs [x] Documentation [x] Medication orders and management Discharge Plan Departure Patient Disposition: Admitted as Observation Clinical Impression: Falls frequently, History of stroke, History of cervical spinal surgery, Contusion of face, Chronic anticoagulation, History of atrial fibrillation Admit Date/Time: 08/14/25 23:44 Admit Provider: Dipak Benavidez
[2025-08-14 18:15] LABS: Alanine Aminotransferase 14 IU/L (<35); Albumin 4.2 g/dL (3.5-5.0); Albumin Globulin Ratio 1.3 (1.0-2.8); Alkaline Phosphatase 87 U/L (38-126); Blood Urea Nitrogen 24 mg/dL (7-17); Calcium 9.6 mg/dL (8.4-10.2); Carbon Dioxide 22 mmol/L (22-32); Chloride 109 mmol/L (98-107); Creatine Kinase 100 U/L (30-135); Estimated Glomerular Filt Rate 33 mL/min (>60); Globulin 3.3 g/dL (1.7-4.1); Glucose 82 mg/dL (70-99); HEMOLYSIS 35 (0-50); Lipase 40 U/L (23-300); Magnesium 2.0 mg/dL (1.6-2.3); Potassium 4.5 mmol/L (3.4-5.1); Sodium 141 mmol/L (137-145); Total Protein 7.5 g/dL (6.3-8.2)
[2025-08-14 18:27] LABS: NT-proBNP (BNP-Adult 18+) 565 pg/mL (<450); Troponin I 0.013 ng/mL (0.01-0.034)
[2025-08-14 19:47] LABS: Troponin I < 0.012 ng/mL (0.01-0.034)
[2025-08-14 22:19] VITALS: BP 145/85; PULSE 60; RESP 16; O2SAT 98
[2025-08-14] MEDS: ACETAMINOPHEN 325 MG TABLET 650 MG PO (23:09)
[2025-08-15] VITALS (31 sets, daily range): BP systolic 125–172; BP diastolic 49–87; PULSE 45–77; RESP 14–24; TEMP 36.8–36.9; O2SAT 91–99; BMI 21.9
--- NOTE | 2025-08-15 04:35 | PM.HP.1 ---
History of Present Illness History of Present Illness Date Patient Seen: 08/15/25 Time Patient Seen: 02:00 Chief complaint: Fall 7 x in 2days, shoulder head and back pn Narrative: 80 y/o with complex PMH, presented after she fell 7 times in 2 days at home. Each fall due to loss of balance. PMH of recent CVA. Presenting with facial and scalp hematoma and unremarkable CTH. Complained on right arm and leg pain and had non-revealing images, including cervical spine which was operated on recently. Placed in observation, for PT assesment and possibly MRI brain, if indicated. 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 arthritis with rheumatoid factor of multiple sites without organ or systems involvement Morbid (severe) obesity due to excess calories Type 2 diabetes mellitus with diabetic peripheral angiopathy without gangrene Type 2 diabetes mellitus with diabetic polyneuropathy Bipolar 1 disorder Insomnia At high risk for cardiovascular disease (Unknown) Hyperlipidemia Severe 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, without psychotic features (07/05/16) Lumbar radiculopathy Hypertensive heart and chronic kidney disease with heart failure and stage 1 through stage 4 chronic kidney disease, or unspecified chronic kidney disease Cardiomegaly CKD (chronic kidney disease) ADD (attention deficit disorder) Peripheral vascular disease of extremity with claudication Kidney cysts Sacralization of lumbar vertebra Foraminal stenosis of lumbar region COVID SOB (shortness of breath) on exertion Class 1 obesity due to excess calories with body mass index (BMI) of 34.0 to 34.9 in adult Depression ADD (attention deficit disorder) Dysphagia Sciatica Loss of voice Dysphagia Encounter for Medicare annual wellness exam Screening for malignant neoplasm of colon COPD (chronic obstructive pulmonary disease) Right leg injury UTI (urinary tract infection) Bilirubin in urine Raynaud's disease without gangrene Peripheral neuropathy Venous stasis Rheumatoid arthritis Fibromyalgia Pneumonia Cystic fibrosis (~1956) Post traumatic stress disorder (PTSD) Anxiety Arachnoiditis Stroke Restless leg syndrome Scoliosis Osteoporosis Degenerative joint disease (DJD) of lumbar spine Foot pain Fibromyalgia Chronic back pain Cervical spine disease Ankle pain Anemia Vertigo (~1968) Cataracts, bilateral Heavy menstrual period Abnormal Pap smear of cervix (~1956) Kidney stones GI bleeding GERD (gastroesophageal reflux disease) Skin cancer (~1996) Hypertension Atrial fibrillation Surgical History S/P shoulder replacement History of lumbar fusion History of neck surgery History of back surgery History of knee replacement (11/29/16) Status post bunionectomy (08/11/15) History of hip replacement S/P total abdominal hysterectomy and bilateral salpingo-oophorectomy Status post tonsillectomy and adenoidectomy Status post tubal ligation Status post cholecystectomy Status post appendectomy Social History marital status: household members: spouse, family and friend(s) Smoking Status: Never smoker alcohol intake: never substance use type: does not use Meds Home Medications and Allergies Home Medications ?Medication ?Instructions ?Recorded ?Confirmed ?Type nitroglycerin 0.4 mg sublingual See Rx Instructions .Route 10/11/22 07/27/25 Rx tablet .COMPLEX ##25 acetaminophen 500 mg tablet 1,000 mg PO TID PRN Pain (Scale 11/01/22 07/27/25 History (Tylenol Extra Strength) Score 1-3) tiotropium 2.5 mcg-olodaterol 2.5 2 puff inhalation BID #4 grams 10/17/23 07/27/25 Rx mcg/actuation mist for inhalation lidocaine 5 % topical patch 2 patch topical DAILY PRN pain #60 11/16/23 07/27/25 Rx ea Circulation and pain relief are See Rx Instructions .Route 03/14/24 07/27/25 Rx compression foot and calf boot .COMPLEX #2 ea carvedilol 12.5 mg tablet 12.5 mg PO BID 03/28/24 07/27/25 History Disabled Parking Permit See Rx Instructions .Route 04/02/24 07/27/25 Rx .COMPLEX #1 unit atorvastatin 80 mg tablet 80 mg PO QPM #90 tabs 05/18/24 07/27/25 Rx amlodipine 5 mg tablet 5 mg PO DAILY #90 tabs 07/30/24 07/27/25 Rx nystatin 100,000 unit/gram topical 1 applic topical BID #30 grams 10/24/24 07/27/25 Rx powder clopidogrel 75 mg tablet 75 mg PO DAILY 12/27/24 07/27/25 History losartan 25 mg tablet 25 mg PO DAILY 03/06/25 07/27/25 History pantoprazole 40 mg tablet,delayed 40 mg PO DAILY 03/06/25 07/27/25 History release zaleplon 10 mg capsule 20 mg (2 x 10 mg) PO BEDTIME PRN 03/19/25 07/27/25 Rx sleep #180 caps buprenorphine 15 mcg/hour weekly 1 patch transdermal Q7D #4 ea 04/15/25 07/27/25 Rx transdermal patch bupropion HCl 300 mg 24 hr tablet, 300 mg PO QAM #90 tabs 04/15/25 07/27/25 Rx extended release (Wellbutrin XL) dextroamphetamine-amphetamine 20 See Rx Instructions .Route 06/17/25 07/27/25 Rx mg tablet .COMPLEX #60 tabs dextroamphetamine-amphetamine 20 20 mg PO BID #60 tabs 06/17/25 07/27/25 Rx mg tablet (Adderall) dextroamphetamine-amphetamine 20 20 mg PO BID #60 tabs 06/17/25 07/27/25 Rx mg tablet (Adderall) methocarbamol 750 mg tablet 750 mg PO Q8H PRN muscle spasms 06/17/25 07/27/25 Rx #90 tabs duloxetine 60 mg capsule,delayed 60 mg PO DAILY #90 caps 07/05/25 07/27/25 Rx release buprenorphine 12 mg-naloxone 3 mg 2 film buccal Q24H #60 ea 07/15/25 07/27/25 Rx sublingual film (Suboxone) buprenorphine 8 mg-naloxone 2 mg 2 film buccal BEDTIME PRN pain #30 07/15/25 07/27/25 Rx sublingual film ea apixaban 5 mg tablet (Eliquis) 5 mg PO BID #200 tabs 07/29/25 Rx Allergies Allergy/AdvReac Type Severity Reaction Status Date / Time ipratropium (From Atrovent) Allergy Intermediate voice spasm Verified 08/14/25 15:39 zolpidem (From Ambien) AdvReac Severe sleep Verified 08/14/25 15:39 walking, eating ciprofloxacin AdvReac Intermediate FLUSHING, Verified 08/14/25 15:39 SWEATS, SOB citalopram (CITALOPRAM) AdvReac Intermediate Hallucinati Verified 08/14/25 15:39 ons cyclobenzaprine AdvReac Intermediate FLUSHING, Verified 08/14/25 15:39 SWEATS, SOB pregabalin AdvReac Intermediate FLUSHING/SW Verified 08/14/25 15:39 EATS/SOB Review of Systems Review of Systems Narrative: General - w/o fever, chills, sweating, generalized weakness Neuro - loss of balance, frequent falls Psych - mood OK CVS - w/o palpitations or chest pain preceding falls RS - w/o dyspnea or cough UG - w/o dysuria Exam Vital Signs (past 8 hours): - 08/14/25 22:19 Pulse Rate 60 Respiratory Rate 16 Blood Pressure 145/85 H Pulse Oximetry 98 Oxygen Delivery Method Room Air Oxygen Delivery Method Room Air Narrative Exam Narrative: General - in no distress HEENT - supple neck, PE, EOMI, frontal, left jaw and scalp hematomas / abrasions CVS - RRR RS - normal respirtatory effort ABD - not distended, not tender Neuro - w/o focal muscle weakness or numbness. Psych - normal mood and affect, lucid Objective Imaging CT cervical spine: Radiologist's impression: 1. No acute fracture or dislocation. 2. Remote well-healed, intact anterior fusion and interbody fusion, which in combination fuse from C3 through C7. 3. There is chronic anterolisthesis of C7 on T1. In 2017 it measured 3 mm. On the study from 6 months ago and the current study it measures 6 mm. Right Shoulder XRAY: Radiologist's impression: Right shoulder reverse arthroplasty without radiographic evidence of periprosthetic fracture or lucency. Degenerative changes right acromioclavicular joint with osteophytes. Labs 08/14/25 16:15 08/14/25 16:59 Labs: Laboratory Results - last 24 hr 08/14/25 08/14/25 08/14/25 16:15 16:59 19:19 WBC 6.4 RBC 4.01 Hgb 11.5 L Hct 34.6 L MCV 86.4 MCH 28.8 MCHC 33.3 RDW 14.8 Plt Count 270 Neut % (Auto) 71.4 Lymph % (Auto) 16.8 L [place] % (Auto) 9.2 Eos % (Auto) 1.8 L Baso % (Auto) 0.8 Neut # (Auto) 4600 Lymph # (Auto) 1100 [place] # (Auto) 600 Eos # (Auto) 100 Baso # (Auto) 100 PT 15.4 H INR 1.4 H APTT 36 Sodium 141 Potassium 4.5 Chloride 109 H Carbon Dioxide 22 BUN 24 H Creatinine 1.56 H Estimated GFR 33 L BUN/Creatinine Ratio 15.4 Glucose 82 Lactate 0.7 Calcium 9.6 Magnesium 2.0 Total Bilirubin 0.5 AST 29 ALT 14 Alkaline Phosphatase 87 Total Creatine Kinase 100 Troponin I 0.013 < 0.012 NT-Pro-B Natriuret Pep 565 H Total Protein 7.5 Albumin 4.2 Globulin 3.3 Albumin/Globulin Ratio 1.3 Lipase 40 Procalcitonin 0.052 Assessment & Plan Assessment and plan (1) Frequent falls: Status: Acute (2) History of stroke: Status: Acute (3) Morbid (severe) obesity due to excess calories: Status: Acute (4) Rheumatoid arthritis with rheumatoid factor of multiple sites without organ or systems involvement: Status: Acute (5) Bipolar 1 disorder: Status: Acute (6) Atrial fibrillation: Qualifiers: Atrial fibrillation type: paroxysmal Qualified Code(s): I48.0 - Paroxysmal atrial fibrillation Status: Acute (7) COPD (chronic obstructive pulmonary disease): Qualifiers: COPD type: unspecified COPD Qualified Code(s): J44.9 - Chronic obstructive pulmonary disease, unspecified Status: Chronic (8) Hypertension: Qualifiers: Hypertension type: primary hypertension Qualified Code(s): I10 - Essential (primary) hypertension Status: Chronic (9) Chronic pain: Status: Acute Assessment & Plan narrative: Recurrent Injury Falls - due to loss of balance - consideration for MRI brain - PT evaluation Recent Lt MCA ischemic stroke - recent stroke with improved RUE weakness and aphasia - did not affect balance apparently - Plavix, statin Morbid Obesity - likely contributing to falls Rheumatoid Arthritis / chronic MSK pain - on buprenorphine at home A-fib - Coreg, Eliquis Renovascular HTN / CKD stage 3 - amlodipine, carvedilol -renal dosing DM GERD - Protonix COPD - Spiriva Bipolar 1 disorder - Cymbalta, Wellbutrin DVT prophylaxis - therapeutic anticoagulation with Eliquis Patient consented to telemedicine, audio-visual encounter with RN assisting during the exam. Patient located at [place], [place], provider located in [place]. Time-Based Coding :: [TOTAL MINUTES] spent with patient and on the chart (including review of chart, obtaining history, exam, reviewing outside data, placing orders, documenting exam and treatment plan, and counseling patient) on [DATE].
--- NOTE | 2025-08-15 07:18 | PM.HP.1 ---
History of Present Illness History of Present Illness Date Patient Seen: 08/15/25 Time Patient Seen: 02:00 Chief complaint: Fall 7 x in 2days, shoulder head and back pn Narrative: 80 y/o with complex PMH, presented after she fell 7 times in 2 days at home. Each fall due to loss of balance. PMH of recent CVA. Presenting with facial and scalp hematoma and unremarkable CTH. Complained on right arm and leg pain and had non-revealing images, including cervical spine which was operated on recently. Placed in observation, for PT assesment and possibly MRI brain, if indicated. 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 arthritis with rheumatoid factor of multiple sites without organ or systems involvement Morbid (severe) obesity due to excess calories Type 2 diabetes mellitus with diabetic peripheral angiopathy without gangrene Type 2 diabetes mellitus with diabetic polyneuropathy Bipolar 1 disorder Insomnia At high risk for cardiovascular disease (Unknown) Hyperlipidemia Severe 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, without psychotic features (07/05/16) Lumbar radiculopathy Hypertensive heart and chronic kidney disease with heart failure and stage 1 through stage 4 chronic kidney disease, or unspecified chronic kidney disease Cardiomegaly CKD (chronic kidney disease) ADD (attention deficit disorder) Peripheral vascular disease of extremity with claudication Kidney cysts Sacralization of lumbar vertebra Foraminal stenosis of lumbar region COVID SOB (shortness of breath) on exertion Class 1 obesity due to excess calories with body mass index (BMI) of 34.0 to 34.9 in adult Depression ADD (attention deficit disorder) Dysphagia Sciatica Loss of voice Dysphagia Encounter for Medicare annual wellness exam Screening for malignant neoplasm of colon COPD (chronic obstructive pulmonary disease) Right leg injury UTI (urinary tract infection) Bilirubin in urine Raynaud's disease without gangrene Peripheral neuropathy Venous stasis Rheumatoid arthritis Fibromyalgia Pneumonia Cystic fibrosis (~1956) Post traumatic stress disorder (PTSD) Anxiety Arachnoiditis Stroke Restless leg syndrome Scoliosis Osteoporosis Degenerative joint disease (DJD) of lumbar spine Foot pain Fibromyalgia Chronic back pain Cervical spine disease Ankle pain Anemia Vertigo (~1968) Cataracts, bilateral Heavy menstrual period Abnormal Pap smear of cervix (~195) Kidney stones GI bleeding GERD (gastroesophageal reflux disease) Skin cancer (~1996) Hypertension Atrial fibrillation Surgical History S/P shoulder replacement History of lumbar fusion History of neck surgery History of back surgery History of knee replacement (11/29/16) Status post bunionectomy (08/11/15) History of hip replacement S/P total abdominal hysterectomy and bilateral salpingo-oophorectomy Status post tonsillectomy and adenoidectomy Status post tubal ligation Status post cholecystectomy Status post appendectomy Social History marital status: household members: spouse and family Smoking Status: Never smoker alcohol intake: former substance use type: does not use Meds Home Medications and Allergies Home Medications ?Medication ?Instructions ?Recorded ?Confirmed ?Type nitroglycerin 0.4 mg sublingual See Rx Instructions .Route 10/11/22 07/27/25 Rx tablet .COMPLEX ##25 acetaminophen 500 mg tablet 1,000 mg PO TID PRN Pain (Scale 11/01/22 07/27/25 History (Tylenol Extra Strength) Score 1-3) tiotropium 2.5 mcg-olodaterol 2.5 2 puff inhalation BID #4 grams 10/17/23 07/27/25 Rx mcg/actuation mist for inhalation lidocaine 5 % topical patch 2 patch topical DAILY PRN pain #60 11/16/23 07/27/25 Rx ea Circulation and pain relief are See Rx Instructions .Route 03/14/24 07/27/25 Rx compression foot and calf boot .COMPLEX #2 ea carvedilol 12.5 mg tablet 12.5 mg PO BID 03/28/24 07/27/25 History Disabled Parking Permit See Rx Instructions .Route 04/02/24 07/27/25 Rx .COMPLEX #1 unit atorvastatin 80 mg tablet 80 mg PO QPM #90 tabs 05/18/24 07/27/25 Rx amlodipine 5 mg tablet 5 mg PO DAILY #90 tabs 07/30/24 07/27/25 Rx nystatin 100,000 unit/gram topical 1 applic topical BID #30 grams 10/24/24 07/27/25 Rx powder clopidogrel 75 mg tablet 75 mg PO DAILY 12/27/24 07/27/25 History losartan 25 mg tablet 25 mg PO DAILY 03/06/25 07/27/25 History pantoprazole 40 mg tablet,delayed 40 mg PO DAILY 03/06/25 07/27/25 History release zaleplon 10 mg capsule 20 mg (2 x 10 mg) PO BEDTIME PRN 03/19/25 07/27/25 Rx sleep #180 caps buprenorphine 15 mcg/hour weekly 1 patch transdermal Q7D #4 ea 04/15/25 07/27/25 Rx transdermal patch bupropion HCl 300 mg 24 hr tablet, 300 mg PO QAM #90 tabs 04/15/25 07/27/25 Rx extended release (Wellbutrin XL) dextroamphetamine-amphetamine 20 See Rx Instructions .Route 06/17/25 07/27/25 Rx mg tablet .COMPLEX #60 tabs dextroamphetamine-amphetamine 20 20 mg PO BID #60 tabs 06/17/25 07/27/25 Rx mg tablet (Adderall) dextroamphetamine-amphetamine 20 20 mg PO BID #60 tabs 06/17/25 07/27/25 Rx mg tablet (Adderall) methocarbamol 750 mg tablet 750 mg PO Q8H PRN muscle spasms 06/17/25 07/27/25 Rx #90 tabs duloxetine 60 mg capsule,delayed 60 mg PO DAILY #90 caps 07/05/25 07/27/25 Rx release buprenorphine 12 mg-naloxone 3 mg 2 film buccal Q24H #60 ea 07/15/25 07/27/25 Rx sublingual film (Suboxone) buprenorphine 8 mg-naloxone 2 mg 2 film buccal BEDTIME PRN pain #30 07/15/25 07/27/25 Rx sublingual film ea apixaban 5 mg tablet (Eliquis) 5 mg PO BID #200 tabs 07/29/25 Rx Allergies Allergy/AdvReac Type Severity Reaction Status Date / Time ipratropium (From Atrovent) Allergy Intermediate voice spasm Verified 08/14/25 15:39 zolpidem (From Ambien) AdvReac Severe sleep Verified 08/14/25 15:39 walking, eating ciprofloxacin AdvReac Intermediate FLUSHING, Verified 08/14/25 15:39 SWEATS, SOB citalopram (CITALOPRAM) AdvReac Intermediate Hallucinati Verified 08/14/25 15:39 ons cyclobenzaprine AdvReac Intermediate FLUSHING, Verified 08/14/25 15:39 SWEATS, SOB pregabalin AdvReac Intermediate FLUSHING/SW Verified 08/14/25 15:39 EATS/SOB Review of Systems Review of Systems Narrative: Denies CP, SOB, N/V. No lightheadedness or dizziness. Did not feel presyncopal prior to the falls, no LOC. Otherwise 14 system review of systems negative. Exam Vital Signs (past 8 hours): - 08/15/25 00:28 08/15/25 00:30 08/15/25 00:31 Pulse Rate 60 59 L Blood Pressure 172/78 H Pulse Oximetry 95 94 Oxygen Delivery Method 08/15/25 00:31 08/15/25 01:00 08/15/25 01:00 Pulse Rate 59 L 60 Blood Pressure 149/77 H Pulse Oximetry 94 93 Oxygen Delivery Method Room Air 08/15/25 01:30 08/15/25 01:30 08/15/25 02:00 Pulse Rate 61 Blood Pressure 148/79 H 147/67 H Pulse Oximetry 94 Oxygen Delivery Method 08/15/25 02:00 08/15/25 02:30 08/15/25 02:30 Pulse Rate 62 64 Blood Pressure 145/67 H Pulse Oximetry 95 91 Oxygen Delivery Method 08/15/25 03:00 08/15/25 03:00 08/15/25 03:30 Pulse Rate 61 Blood Pressure 144/74 H 144/70 H Pulse Oximetry 91 Oxygen Delivery Method 08/15/25 03:30 08/15/25 04:00 08/15/25 04:00 Pulse Rate 59 L 60 Blood Pressure 144/75 H Pulse Oximetry 92 91 Oxygen Delivery Method 08/15/25 04:30 08/15/25 04:30 08/15/25 05:00 Pulse Rate 57 L 51 L Blood Pressure 134/61 Pulse Oximetry 91 92 Oxygen Delivery Method Room Air 08/15/25 05:00 08/15/25 05:30 08/15/25 05:31 Pulse Rate 49 L 48 L Blood Pressure 131/64 Pulse Oximetry 93 93 Oxygen Delivery Method 08/15/25 05:31 08/15/25 06:00 08/15/25 06:01 Pulse Rate 47 L 45 L Blood Pressure 125/58 L Pulse Oximetry 93 94 Oxygen Delivery Method 08/15/25 06:01 08/15/25 06:30 Pulse Rate 46 L Blood Pressure 136/60 Pulse Oximetry 93 Oxygen Delivery Method Oxygen Delivery Method Room Air Narrative Exam Narrative: Vital signs reviewed, notable for persistent bradycardia Alert and oriented, WN, WD, NAD Oropharynx moist, scalp hematoma on left forehead Bradycardic, regular rhythm, murmur noted CTA bilaterally Soft, NT, ND, +BS Warm without edema, DP/PT 2+ Ecchymosis right mid back, below chin, left jaw Neuro -weakness pleasant, cooperative Objective ECG Impression: EKG reviewed by me showed sinus bradycardia, sinus arrhythmia, and first-degree AV block Imaging Multiple imaging studies performed including head CT, cervical spine CT, chest x-ray, femur/hip/humerus x-rays: My impression: Review of all images did not demonstrate intracranial bleeding or other abnormality, no acute fractures. Labs 08/15/25 13:22 08/15/25 13:22 Labs: Laboratory Results - last 24 hr 08/14/25 08/14/25 08/14/25 16:15 16:59 19:19 WBC 6.4 RBC 4.01 Hgb 11.5 L Hct 34.6 L MCV 86.4 MCH 28.8 MCHC 33.3 RDW 14.8 Plt Count 270 Neut % (Auto) 71.4 Lymph % (Auto) 16.8 L [place] % (Auto) 9.2 Eos % (Auto) 1.8 L Baso % (Auto) 0.8 Neut # (Auto) 4600 Lymph # (Auto) 1100 [place] # (Auto) 600 Eos # (Auto) 100 Baso # (Auto) 100 PT 15.4 H INR 1.4 H APTT 36 Sodium 141 Potassium 4.5 Chloride 109 H Carbon Dioxide 22 BUN 24 H Creatinine 1.56 H Estimated GFR 33 L BUN/Creatinine Ratio 15.4 Glucose 82 Lactate 0.7 Calcium 9.6 Magnesium 2.0 Total Bilirubin 0.5 AST 29 ALT 14 Alkaline Phosphatase 87 Total Creatine Kinase 100 Troponin I 0.013 < 0.012 NT-Pro-B Natriuret Pep 565 H Total Protein 7.5 Albumin 4.2 Globulin 3.3 Albumin/Globulin Ratio 1.3 Lipase 40 Procalcitonin 0.052 Assessment & Plan Assessment & Plan narrative: Multiple ground level falls No acute injury. Patient reports that she lost her balance. It is possible that her bradycardia is contributing to the falls if she is getting presyncopal with activity. -PT/OT assessment -care management for discharge planning Sinus Bradycardia Hx of Afib Currently in sinus. Patient on carvedilol which is contributing to the bradycardia. Need to assess if HR improves with activity. If it does not, then carvedilol may need to be decreased or discontinued. -Orthostatic vitals -consider decrease/discontinue carvedilol - will hold her am dose for now -Continue eliquis Recent Lt MCA ischemic stroke recent stroke with improved RUE weakness and aphasia, did not affect balance apparently - Continue Plavix, statin Morbid Obesity - likely contributing to falls Rheumatoid Arthritis / chronic MSK pain - Continue buprenorphine Renovascular HTN / CKD stage 3 - amlodipine, carvedilol -renal dosing GERD - Protonix COPD - Spiriva Bipolar 1 disorder - Cymbalta, Wellbutrin Time-Based Coding :: 45 minutes spent with patient and on the chart (including review of chart, obtaining history, exam, reviewing outside data, placing orders, documenting exam and treatment plan, and counseling patient) on [DATE].
[2025-08-15] MEDS: ACETAMINOPHEN 325 MG TABLET 975 MG PO ×2 (07:31→21:47)
--- NOTE | 2025-08-15 08:25 | PC.NURSE ---
Pt c/o left sided headache and given PRN Tylenol. Assisted pt to get up to [facility] with a SBA. Pt set up with breakfast tray.
[2025-08-15] MEDS: APIXABAN 5 MG TABLET PO (09:30)
[2025-08-15] MEDS: CLOPIDOGREL 75 MG TABLET PO (09:31)
[2025-08-15] MEDS: PANTOPRAZOLE DR 40 MG TABLET PO (09:32)
[2025-08-15] MEDS: ALBUTEROL/IPRATROPIUM 3 ML AMPUL INH ×3 (10:47→19:15)
--- NOTE | 2025-08-15 11:00 | PT-IP ANOTE ---
Attempted to see pt for PT evaluation, in with admitting RN to be brought to the floor as able. Will continue to follow.
--- NOTE | 2025-08-15 12:53 | CM.IDA ---
Addendum entered by Juli Schafer 08/15/25 16:05: TECHNICAL CABLE JOINTER receives call back from STEPHAN Bai (PH. # [phone]), he reports that patient's current caregiver is her daughter Katie who provides care almost every day M-F. It is also reported that patient resides with a roommate who assists at home. DCP to follow up with family regarding frequency of caregiver services provided GORDON Kahn Original Note: Initial DCP Assessment Patient is 80 y/o female who presents to the ED due to concern for several falls in the last few days, patient has hx of CVA Patient's PCP is Dr. Starkey, patient has [facility] and Medicaid insurance. Patient has hx of type 2 Diabetes, Hyperlipidemia, CKD, ADD, Bipolar 1, PTSD, Anxiety, Dysphagia, Afib, & frequent falls. Patient was admitted due to concern for AFib, hx of stroke, cervical spine surgery, hx of falls and chronic anticoagulation. TECHNICAL CABLE JOINTER enters room to meet with patient, patient presents as A/O to self, location and person. Per RN patient stated it was July 2010 and patient was initially uncertain why she was at the hospital. Pennien endorses that she resides at home with spouse and youngest son in [place]. Patient endorses that she receives assistance with ADLs for housekeeping and meal prep. Patient states that she can typically ambulate but has difficulty with balance, patient endorses she has FWW and wheelchair at home. Patient endorses she has good local family support. Per EMR, patient has hx of Stephan caregiver, patient states her granddaughter was her caregiver but not recently. TECHNICAL CABLE JOINTER calls [facility] and identifies that patient's STEPHAN CM is Yohan Bai (Ph. # [phone]) TECHNICAL CABLE JOINTER calls Yohan and leaves . Per EMR patient has hx of [facility] referral, patient states she thought it was [facility] and endorses preference for [facility] if recommended. Patient endorses she is open to SNF rehab if recommended but primary preference is to return home. Pending PT/OT to determine POC, f/u with family and STEPHAN CM regarding caregiver status. Home with HH & caregiver vs. SNF rehab GORDON Kahn Discharge Planning/Care Management CM Discharge Assessment Start: 08/15/25 06:41 Freq: Status: Active Protocol: Document 08/15/25 12:46 LN (Rec: 08/15/25 12:52 LN [id number]) Discharge Planning Assessment Assigned Discharge GORDON Bustos Rn House Supervisor Provider Dr. Starkey Insurance Medicaid,Medicare,[facility] DPOA/Assigned Bob Larkin/ Spouse Designee Name Contact Information [phone] Advance Directives? No History Provided By Patient,Medical Record Has Patient been No admitted in last 30 days? Prior Living House Arrangements Household Members spouse,family Type of Relies on Others transporation used prior to admit Independent with ADL No 's Is patient alert and No: A/O to person, place & self oriented? Needs Assistance Grooming,Meal Prep,Managing Medications,Home Chores / With Shopping Comment Patient has upcoming outpatient PT scheduled with later this month. DME Already Rented / Wheelchair,FWW / Walker Owned Patient/Family Retirement Facility,Home with Home Health Preference Comment Home with HH vs. SNF rehab, patient prefers to d/c to home but is open to SNF rehab if recommended. Comment Patient identifies interest in [facility].
[2025-08-15 13:32] LABS: Add Manual Diff / Slide Review NO; Hematocrit 32.2 % (36-46); Hemoglobin 10.9 g/dL (12.0-16.0); Lymphocytes Absolute Auto 800 /uL (1100-4500); Mean Corpuscular HGB Conc 33.9 % (30-36); Mean Corpuscular Hemoglobin 29.4 PG (26-34); Mean Corpuscular Volume 86.7 fL (80-100); Platelet Count 242 X10^3/uL (150-400)
[2025-08-15 13:49] LABS: Blood Urea Nitrogen 23 mg/dL (7-17); Calcium 9.4 mg/dL (8.4-10.2); Carbon Dioxide 24 mmol/L (22-32); Chloride 107 mmol/L (98-107); Estimated Glomerular Filt Rate 32 mL/min (>60); Glucose 117 mg/dL (70-99); HEMOLYSIS < 15 (0-50); Potassium 4.8 mmol/L (3.4-5.1); Sodium 141 mmol/L (137-145)
--- NOTE | 2025-08-15 13:50 | PT.IIE ---
Current Diagnoses Morbid (severe) obesity due to excess calories (08/14/25) Bipolar disorder, unspecified (08/14/25) Other chronic pain (08/14/25) Essential (primary) hypertension (08/14/25) Paroxysmal atrial fibrillation (08/14/25) Chronic obstructive pulmonary disease, unspecified (08/14/25) Rheumatoid arthritis with rheumatoid factor of multiple sites without organ or systems involvement (08/14/25) Repeated falls (08/14/25) Personal history of transient ischemic attack (TIA), and cerebral infarction without residual deficits (08/14/25) Surgical History (Last Reviewed 08/15/25 @ 07:19 by Caitlin Carmona MD) History of back surgery History of hip replacement History of knee replacement (11/29/16) History of lumbar fusion History of neck surgery S/P shoulder replacement S/P total abdominal hysterectomy and bilateral salpingo-oophorectomy Status post appendectomy Status post bunionectomy (08/11/15) Status post cholecystectomy Status post tonsillectomy and adenoidectomy Status post tubal ligation Medical History (Last Reviewed 08/15/25 @ 07:19 by Caitlin Carmona MD) Abnormal Pap smear of cervix (~1956) ADD (attention deficit disorder) ADD (attention deficit disorder) Anemia Ankle pain Anxiety Arachnoiditis At high risk for cardiovascular disease (Unknown) Atrial fibrillation Bilirubin in urine Bipolar 1 disorder Cardiomegaly Cataracts, bilateral Cervical spine disease Chronic back pain Chronic kidney disease, stage 4 (severe) CKD (chronic kidney disease) Class 1 obesity due to excess calories with body mass index (BMI) of 34.0 to 34.9 in adult COPD (chronic obstructive pulmonary disease) COVID Cystic fibrosis (~1956) Degenerative joint disease (DJD) of lumbar spine Depression Dysphagia Dysphagia Encounter for Medicare annual wellness exam Fibromyalgia Fibromyalgia Foot pain Foraminal stenosis of lumbar region Frequent falls GERD (gastroesophageal reflux disease) GI bleeding Heavy menstrual period Hyperlipidemia Hypertension Hypertensive heart and chronic kidney disease with heart failure and stage 1 through stage 4 chronic kidney disease, or unspecified chronic kidney disease Insomnia Kidney cysts Kidney stones Loss of voice Lumbar radiculopathy 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 Morbid (severe) obesity due to excess calories Osteoporosis Peripheral neuropathy Peripheral vascular disease of extremity with claudication Pneumonia Post traumatic stress disorder (PTSD) Primary osteoarthritis, right shoulder Raynaud's disease without gangrene Restless leg syndrome Rheumatoid arthritis Rheumatoid arthritis with rheumatoid factor of multiple sites without organ or systems involvement Right leg injury Right shoulder pain Sacralization of lumbar vertebra Sciatica Scoliosis Screening for malignant neoplasm of colon Severe 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, without psychotic features (07/05/16) Skin cancer (~1996) SOB (shortness of breath) on exertion Stroke Type 2 diabetes mellitus with diabetic chronic kidney disease Type 2 diabetes mellitus with diabetic peripheral angiopathy without gangrene Type 2 diabetes mellitus with diabetic polyneuropathy Type 2 diabetes mellitus with other specified complication UTI (urinary tract infection) Venous stasis Vertigo (~1968) Physical Therapy Inpatient Evaluation/Re-Eval M1 PT IP Prior Functional Status Start: 08/15/25 16:28 Freq: Status: Active Protocol: Document 08/15/25 16:28 NW (Rec: 08/15/25 16:55 NW [id number]) Medical Review Prior Functional Status Medical History Yes Reviewed Communication Pt is able to make her needs known. She is an inconsistent historian and is unsure about parts of her medical hx (ex. she cannot explain what she had operated on her R UE 6wks ago and is confused when therapy team states cervical surgery) Mobility and Gait Pt was amb with 3WW (pt states one wheel in front and two in the back) in home and community. Pt has had 7 falls in past two days, unable to state how falls are occurring. Activities of Daily Pt reports needing S for BADLs. 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 ) Social History Household Members spouse,family Living Arrangements House Number of Stairs To 2 steps to enter with R railing. Enter/Railing? Home Environment Standard Height Toilet,Walk in Shower,Built-In Shower Seat Home Equipment Bedside Commode,Shower Seat with Backrest,Hand Held Shower Additional Social 3 wheel walker. Lives with spouse and 55 year old son History Comment M2 PT-IP Current Condition Start: 08/15/25 16:28 Freq: Status: Active Protocol: Document 08/15/25 16:28 NW (Rec: 08/15/25 16:55 NW [id number]) Physical Therapy Current Condition Current Condition Evaluation Date 08/15/25 Treatment Diagnosis Multiple GLF, R bicep pain, Reduced Activity Tolerance Onset Date 08/14/25 M3 PT-IP Subjective Start: 08/15/25 16:28 Freq: Status: Active Protocol: Document 08/15/25 16:28 NW (Rec: 08/15/25 16:55 NW [id number]) Subjective Physical Therapy Visit Type Type Initial Evaluation Visit Start Time 13:10 Visit Stop Time 13:51 Notes 41 mins Physical Therapy Visit Comments Patient Comments Pt is found sitting edge of bed trying to get up to use the restroom. Pt states she has has several falls in past two days, unable to state why she is falling. Denies any symptoms to suspect orthostatic hypotension. Pt is confused regarding recent surgical history either on cervical spine or R shoulder arthroplasty. Pt feels generally tired and notes high back pain at all times. Patient Goals To return home. Therapy Pain Assessment Pain When Pain Assessed At Rest Pain Present Pain Present Pain Reported Location Right Upper Arm Intensity 9 Scale Used Numeric (0 - 10) Description Sharp Pain Behaviors Wincing Pain Management Modification of Treatment Techniques M4 PT-IP Mobility and Gait Start: 08/15/25 16:28 Freq: Status: Active Protocol: Document 08/15/25 16:28 NW (Rec: 08/15/25 16:55 NW [id number]) PT-Bed Mobility Assessment Sit to Supine Sit to Supine Minimal Assistance,1 Person Assistance Scooting Scooting to Edge of Minimal Assistance Bed Scooting Up and Down Contact Guard Assistance in Bed PT-Transfer Assessment Sit to and From Stand Sit to and from Contact Guard Assistance,1 Person Assistance Stand Equipment Transfer Assistive Gait Belt,Front Wheeled Walker Device Transfers Transfer Destination Bed,Chair,Toilet Transfer Technique Stand Step Pivot Transfer Ability Level of Assist Contact Guard Assistance Comments Mobility Comments + dynamic knee valgus, able to complete transfer with increased time. Cues necessary for UE placement and to reduce load through RUE secondary to possible previous surgery. Orthostatic taken with transfers with no drop in BP. Gait Assessment Gait Gait Assistance Contact Guard Assist Required: Distance (Feet) 30 Able to Maintain Yes Weight Bearing Status During Gait Assistive Devices Assistive Device Gait Belt,Front Wheeled Walker Gait Deviations General Gait Pattern Antalgic,Decreased Stride Length,Flexed Trunk,Lateral Trunk Lean,Narrow Based Gait,Step-to Gait Factors Limiting Gait Function Factors Limiting Decreased Sensation,Decreased Strength,Pain,Poor Gait Function Balance,Poor Safety Awareness Comments Gait Comments Ambulated over 2 equal bouts, Lateral lean towards R, inconsistent step to/through gait pattern (pt states secondary to L knee pain occasionally), slow jazmín and velocity. Increased time for turning. Cues for AD management. Stair Climbing Assessment Comments Stair Climbing not able Comments PT-Balance Assessment Sitting Balance and Reactions Static Sitting Normal Balance Ability Dynamic Sitting Normal Balance Ability Standing Balance and Reactions Static Standing Good Balance Ability Dynamic Standing Fair Balance Ability Device Used FWW Comments Other Balance Tests/ Pt is able to perform dressing tasks and toileting Deviations/Treatment tasks without UE support without LOB with WBOS. : Functional Assessments Other Functional Tests unable secondary to fatigue at this time. Performed M5 PT-IP Objective Assessments Start: 08/15/25 16:28 Freq: Status: Active Protocol: Document 08/15/25 16:28 NW (Rec: 08/15/25 16:55 NW [id number]) Orientation Orientation/Cognition Level of Alertness Alert Safety Awareness Decreased Safety Awareness Memory Description Short Term Impaired Comments Pt has previous history of CVA recently with notes of dyarthria, unable to discern pts word finding difficulties at times. Gross Range of Motion Lower Extremity ROM Assessment Within Functional Limits Strength Lower Extremity Strength Assessment Within Functional Limits Comments Strength Comments 5/5 with all LE testing Sensation Assessment Sensation Gross Sensation Right LE Impaired,Left LE Impaired Light Touch Impaired Sensation Numbness Description Comments Sensation Comments bilateral plantar surface numbness noted. M6 PT-IP Treatment Start: 08/15/25 16:28 Freq: Status: Active Protocol: Document 08/15/25 16:28 NW (Rec: 08/15/25 16:55 NW [id number]) Physical Therapy Treatment Education Education Provided Safety Other Treatments Other Treatment Continue to get up with staff only to use restroom and Performed continue to use FWW. Education on reduction of RUE WBing with ambulation with FWW secondary to possible recent surgical intervention. M7 PT-IP Assessment and Plan Start: 08/15/25 16:28 Freq: Status: Active Protocol: Document 08/15/25 16:28 NW (Rec: 08/15/25 16:55 NW [id number]) PT Summary Assessment and Plan Potential Rehabilitation Good Potential Status of Condition Evolving at Evaluation Summary Impairments Pain,Balance,Sensation,Cognition,Transfers,Gait, Activity Tolerance Progress Towards Progressing Toward Goals Goals Assessment Summary Janet is a 80 yr old female admitted to > 5 falls within past two days with no known cause. Pt has recent history of CVA with no location noted and possible cervical or R shoulder surgical intervention in the last 6 weeks. Pt at baseline states she uses a 3 wheeled walker within home and community and lives with spouse and 55 yr old son in a [place] with 2 steps to enter. In addition pt has a caregiver 5x/wk for variable times. Pt is CGA for transfers and gait with FWW with cues for safety awareness with reduced activity tolerance as requires rest breaks throughout. Pt does not demonstrate s/s or orthostatic hypotension nor instances of loss of balance upon assessment. Possible pt is having increase pain with RUE when WBing through with AD and this is the cause for falls or reduction of sensation in plantar surface resulting in loss of proprioception causing a fall. Further assessments can be completed in future treatments. Currently recommending home health with 24/7 assistance upon discharge. Goals Bed Mobility Goal Independent Transfer Goal Standby Assistance Gait Goal Standby Assistance Gait Distance 150 Other Goals Pt will navigate 2 stairs with railing on the R at CGA with a step to gait pattern. Days to Meet Goals 3 Frequency of Treatment Frequency Of Once a Day Treatment Treatment Plan Physical Therapy Bed Mobility Training,Transfer Training,Gait Training, Treatment Plan Therapeutic Exercise,Balance Retraining,Discharge Planning,Neuromuscular Re-ed Precautions Other Precautions falls, unknown possible R shoulder surgery, activity tolerance, cognition Weight Bearing Status Weight Bearing Weight Bear as Tolerated Status Recommendations To Nursing Amount of Assist 1 Person Assist Needed Discharge Recommendations PT Discharge Home with 24/7 Assist Available,Home Health Recommendations Other Discharge Use of FWW. Recommendations Equipment Needed for FWW Home Before Discharge Transportation Needs Private Vehicle,Wheelchair/Cabulance at Discharge - PT assist 1
--- NOTE | 2025-08-15 14:29 | OT.IP.EVAL ---
Current Diagnoses Morbid (severe) obesity due to excess calories (08/14/25) Bipolar disorder, unspecified (08/14/25) Other chronic pain (08/14/25) Essential (primary) hypertension (08/14/25) Paroxysmal atrial fibrillation (08/14/25) Chronic obstructive pulmonary disease, unspecified (08/14/25) Rheumatoid arthritis with rheumatoid factor of multiple sites without organ or systems involvement (08/14/25) Repeated falls (08/14/25) Personal history of transient ischemic attack (TIA), and cerebral infarction without residual deficits (08/14/25) Past Medical History (Last Reviewed 08/15/25 @ 07:19 by Caitlin Carmona MD) Abnormal Pap smear of cervix (~1956) ADD (attention deficit disorder) ADD (attention deficit disorder) Anemia Ankle pain Anxiety Arachnoiditis At high risk for cardiovascular disease (Unknown) Atrial fibrillation Bilirubin in urine Bipolar 1 disorder Cardiomegaly Cataracts, bilateral Cervical spine disease Chronic back pain Chronic kidney disease, stage 4 (severe) CKD (chronic kidney disease) Class 1 obesity due to excess calories with body mass index (BMI) of 34.0 to 34.9 in adult COPD (chronic obstructive pulmonary disease) COVID Cystic fibrosis (~1956) Degenerative joint disease (DJD) of lumbar spine Depression Dysphagia Dysphagia Encounter for Medicare annual wellness exam Fibromyalgia Fibromyalgia Foot pain Foraminal stenosis of lumbar region Frequent falls GERD (gastroesophageal reflux disease) GI bleeding Heavy menstrual period Hyperlipidemia Hypertension Hypertensive heart and chronic kidney disease with heart failure and stage 1 through stage 4 chronic kidney disease, or unspecified chronic kidney disease Insomnia Kidney cysts Kidney stones Loss of voice Lumbar radiculopathy 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 Morbid (severe) obesity due to excess calories Osteoporosis Peripheral neuropathy Peripheral vascular disease of extremity with claudication Pneumonia Post traumatic stress disorder (PTSD) Primary osteoarthritis, right shoulder Raynaud's disease without gangrene Restless leg syndrome Rheumatoid arthritis Rheumatoid arthritis with rheumatoid factor of multiple sites without organ or systems involvement Right leg injury Right shoulder pain Sacralization of lumbar vertebra Sciatica Scoliosis Screening for malignant neoplasm of colon Severe 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, without psychotic features (07/05/16) Skin cancer (~1996) SOB (shortness of breath) on exertion Stroke Type 2 diabetes mellitus with diabetic chronic kidney disease Type 2 diabetes mellitus with diabetic peripheral angiopathy without gangrene Type 2 diabetes mellitus with diabetic polyneuropathy Type 2 diabetes mellitus with other specified complication UTI (urinary tract infection) Venous stasis Vertigo (~1969) Surgical History (Last Reviewed 08/15/25 @ 07:19 by Caitlin Carmona MD) History of back surgery History of hip replacement History of knee replacement (11/29/16) History of lumbar fusion History of neck surgery S/P shoulder replacement S/P total abdominal hysterectomy and bilateral salpingo-oophorectomy Status post appendectomy Status post bunionectomy (08/11/15) Status post cholecystectomy Status post tonsillectomy and adenoidectomy Status post tubal ligation Occupational Therapy Inpatient Evaluation/Re-Eval M1 OT IP Prior Functional Status Start: 08/15/25 13:55 Freq: Status: Active Protocol: Document 08/15/25 13:14 ARIE (Rec: 08/15/25 14:29 [facility] Desktop) Medical Review Prior Functional Status Medical History Yes Reviewed Communication Pt is able to make her needs known. She is an inconsistent historian and is unsure about parts of her medical hx (ex. she cannot explain what she had operated on her R UE 6wks ago) Mobility and Gait Pt was amb with 3WW (pt states one wheel in front and two in the back) in home and community Activities of Daily Pt reports needing S for BADLs. 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 ) Social History Household Members spouse,family Living Arrangements House Number of Stairs To 2 steps to enter with R railing. Enter/Railing? Home Environment Standard Height Toilet,Walk in Shower,Built-In Shower Seat Home Equipment Bedside Commode,Shower Seat with Backrest,Hand Held Shower Additional Social 3 wheel walker. Lives with spouse and 55 year old son History Comment M2 OT-IP Current Condition Start: 08/15/25 13:55 Freq: Status: Active Protocol: Document 08/15/25 13:14 ARIE (Rec: 08/15/25 14:29 [facility] Desktop) Occupational Therapy Current Condition Current Condition Evaluation Date 08/15/25 Treatment Diagnosis falls, decreased self care Diagnosis Onset Date 12/10/25 Post Operative Precautions Other Precautions *Cautious of R UE. Pt had a sx to R shoulder performed 6 weeks ago. Pt unable to state what the sx procedure was or any precautions she has. M3 OT- IP Subjective and Pain Start: 08/15/25 13:55 Freq: Status: Active Protocol: Document 08/15/25 13:14 ARIE (Rec: 08/15/25 14:29 [facility] Desktop) OT- Subjective Occupational Therapy Visit Type Type Initial Evaluation Visit Start Time 13:14 Visit Stop Time 13:50 Occupational Therapy Visit Comments Patient Comments Pt agreed to OT/PT co-eval and to get up to the bathroom. Patient/Caregiver Pt states that she wants to be able to get herself to Goals the bathroom and to take care of herself when she goes home. OT Pain Assessment Pain When Pain Assessed During Mobility Pain Present Pain Present Pain Reported Location Right Upper Arm Intensity 8 Scale Used Numeric (0 - 10) M4 OT- IP ADL's Start: 08/15/25 13:55 Freq: Status: Active Protocol: Document 08/15/25 13:14 ARIE (Rec: 08/15/25 14:29 [id number] Comments OT Self-Feeding not a meal time Comments OT ADL-Grooming General Evaluation Grooming Ability Standby Assistance Areas Needing Retrieving/Set-up of Grooming Items Assistance OT ADL-Oral Care Comments Oral Care Comments not observed OT ADL-Dressing General Eval Lower Body Dressing Contact Guard Assistance,Minimal Assistance Ability Areas Needing Underpants/Brief,Socks Assistance Comments OT Dressing Comments Pt was able to manage socks with CGA using cross legged position. Pt needed assistance to pull up her underwear on her R hip. OT ADL-Toileting General Evaluation Toileting Ability Minimal Assistance Areas Needing Manage Clothing Assistance Comments OT Toileting Pt is able to pull down her underwear and manage her Comments toileting hygiene but requires MIN A to pull up her underwear on R hip. OT ADL-Bathing Comments OT Bathing Comments not observed. M5 OT- IP IADL's Start: 08/15/25 13:55 Freq: Status: Active Protocol: Document 08/15/25 13:14 ARIE (Rec: 08/15/25 14:29 [facility] Desktop) OT-Instrumental Activities of Daily Living Deficits IADL Deficits No Deficits Identified Home Safety Awareness Awareness of Need Good Awareness for Assistance at Home Ability to Problem Unable to Problem Solve Solve Emergency Situations Medication Management Medication Caregiver Administers Management Money Management Money Management Caregiver Provides Assistance Meal Preparation Meal Preparation Caregiver Provides Assist Carpentry Foreman Carpentry Foreman Caregiver Provides Assist Driving Driving Caregiver Provides Assist M6 OT- IP Functional Cognition Start: 08/15/25 13:55 Freq: Status: Active Protocol: Document 08/15/25 13:14 ARIE (Rec: 08/15/25 14:29 [facility] Desktop) Cognitive Factors Limiting Selfcare Function Cognitive Ability Level of Alertness Alert Patient Orientation Name,Place,Situation Attention Span Capable of Focused Attention,Capable of Sustained Ability Attention Ability to Follow Able to Follow One Step Commands,Able to Follow Multi- Commands Step Commands Memory Description Short Term Impaired Safety Awareness Decreased Recall of Precautions,Underestimates Need for Assistance Executive Function Unable to Remember Details Ability Cognitive Comments Cognitive Assessment Pt presents with decreased safety awareness, especially Comments during functional tfs, not keeping the FWW with her, not reaching back to sit, beginning to sit before LEs touch the surface, etc. Pt is unable to state what sx she had 6 weeks ago and is unable to list any precautions. The incision is in the R anterior shoulder . OT- Vision and Hearing OT- Vision Assessment Visual Acuity WFL,Glasses For Reading M7 OT- IP Mobility and Balance Start: 08/15/25 13:55 Freq: Status: Active Protocol: Document 08/15/25 13:14 ARIE (Rec: 08/15/25 14:29 [facility] Desktop) OT- Bed Mobility Assessment Sit to Supine Sit to Supine Assist Minimal Assistance Scooting Scooting to Edge of Contact Guard Assistance Bed OT-Transfer Assessment Sit to and From Stand Sit to and from Contact Guard Assistance Stand Transfers Transfer Ability Contact Guard Assistance Technique Transfer Destination Bed,Toilet Devices Transfer Assistive Gait Belt,Front Wheeled Walker Devices OT- Gait Assessment Gait Gait Assistance Contact Guard Assist Required: Distance (Feet) 15 Assistive Devices Assistive Device Gait Belt,Front Wheeled Walker OT- Balance Assessment Sitting Balance and Reactions Static Sitting Normal Balance Ability Dynamic Sitting Good Balance Ability Standing Balance and Reactions Static Standing Good Balance Ability Dynamic Standing Fair Balance Ability M8 OT- IP Objective Assessments Start: 08/15/25 13:55 Freq: Status: Active Protocol: Document 08/15/25 13:14 [facility] (Rec: 08/15/25 14:29 [facility]) OT Gross Range of Motion Upper Extremity Range of Motion Assessment Bilaterally Impaired ROM Impairments R shoulder ~40 deg, L shoulder ~140. 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 Strength Hand Dominance Right OT-Muscle Tone Assessment Muscle Tone WNL Yes OT Sensation Assessment Comments Summary Comments no sensory deficits noted Edema Edema Absent M9 OT- IP Assessment and Plan Start: 08/15/25 13:55 Freq: Status: Active Protocol: Document 08/15/25 13:14 [facility] (Rec: 08/15/25 14:29 [facility]) OT Summary Assessment and Plan Potential Rehabilitation Excellent Potential Analytic Complexity Low at Evaluation Summary OT Impairments Range of Motion,Strength,Balance,Functional Mobility, Grooming,Dressing,Toileting,Bathing,Toilet Transfers, Shower Transfers,Activity Tolerance Progress Towards Progressing Toward Goals Goals Assessment Summary Pt is an 80 yo F who has a hx of CVA with dysarthria from January 2025. She had a sx performed on R shoulder 6 weeks ago at [facility], it is unclear what the sx was and what its precautions are. Per chart, pt has had 7 falls in the two days prior to coming to ED. Pt BP while EOB 145/90, checked again after a few minutes 145/72, in standing 156/79. Pt presents with decreased ROM, muscle weakness, decreased BADLs (S at baseline), decreased balance, and decreased functional mobility. Skilled OT services are appropriate to address these deficits and promote return towards PLOF. Recommend HH on dc. Goals Grooming Goal Independent Dressing Goal Standby Assistance Toileting Goal Independent Bathing Goal Standby Assistance Toilet Transfer Goal Independent Shower Transfer Goal Standby Assistance Days to Meet Goals 5 Frequency of Treatment Other frequency 5x/wk Treatment Plan OT Treatment Plan ADL Training,Functional Mobility,Therapeutic Exercises, Patient/Family Education,Discharge Planning Other Treatment Shower, L UE strengthening Recommendations and Next Treatment Focus Discharge Recommendations OT Discharge Home,Home Health Recommendations Transportation Needs Private Vehicle at Discharge
[2025-08-15] MEDS: ATORVASTATIN 20 MG TABLET 80 MG PO (16:17)
[2025-08-15] MEDS: APIXABAN 5 MG TABLET 2.5 MG PO (21:48)
[2025-08-16] VITALS: BP 122/74; PULSE 68; RESP 18; TEMP 36.3; O2SAT 94
[2025-08-16 04:00] VITALS: BP 125/81; PULSE 71; RESP 18; TEMP 37.3; O2SAT 95
[2025-08-16 06:50] LABS: Blood Urea Nitrogen 28 mg/dL (7-17); Calcium 9.3 mg/dL (8.4-10.2); Carbon Dioxide 24 mmol/L (22-32); Chloride 107 mmol/L (98-107); Estimated Glomerular Filt Rate 33 mL/min (>60); Glucose 95 mg/dL (70-99); HEMOLYSIS < 15 (0-50); Potassium 4.1 mmol/L (3.4-5.1); Sodium 139 mmol/L (137-145)
[2025-08-16 07:20] VITALS: PULSE 66; RESP 18; O2SAT 99
[2025-08-16] MEDS: ALBUTEROL/IPRATROPIUM 3 ML AMPUL INH (07:21)
[2025-08-16 08:00] VITALS: BP 171/77; PULSE 60; RESP 14; TEMP 36.6; O2SAT 95
--- NOTE | 2025-08-16 08:13 | P.DS_ITS ---
History of Present Illness History of Present Illness Chief complaint: Fall 7 x in 2days, shoulder head and back pn Narrative: HPI 80 y/o with complex PMH, presented after she fell 7 times in 2 days at home. The falls were due to loss of balance and likely related to her chronic back pain. The patient had no presyncopal symptoms, no syncope, and no loss of consciousness after falling. She does have a recent history of CVA. Initial evaluation with unremarkable imaging including no intracranial abnormalities and no fractures. Exam at presentation notable for facial and scalp hematoma, back ecchymoses and submandibular ecchymoses. Physical exam Vitals reviewed and notable only for some hypertension Scalp hematoma and ecchymoses on left forehead, ecchymoses right mid back and submandibular region. Alert and oriented, well nourished, well developed no acute distress Regular rate and rhythm, normal S1 and S2, no murmurs Clear to auscultation bilaterally Soft, nontender Warm without edema Pleasant and cooperative Diagnostics Laboratory studies notable only for creatinine 1.56. Humerus x-ray, head CT, chest x-ray, cervical spine CT were all without acute abnormalities. Hospital course Multiple ground level falls The patient had no acute significant injury but does have some bruising. Falls were likely due to loss of balance and chronic back pain probably contributed. Although the patient was bradycardic on presentation she does not appear to have any presyncopal or syncopal symptoms so doubt this was a contributor. She was evaluated by PT and OT and was felt to be safe to discharge to home with family support and home health services. Sinus Bradycardia Hx of Afib Patient with a history of atrial fibrillation but at presentation was in sinus bradycardia. The bradycardia was transient and her heart rate remained in normal rate throughout the hospitalization. There was consideration given to decreasing or discontinuing her carvedilol if the heart rate did not improve but this was ultimately not necessary. She was continued on her Eliquis. Recent Lt MCA ischemic stroke The patient had a recent stroke with some initial right upper extremity weakness and aphasia. This has improved. She should continue on her Plavix and statin. Rheumatoid Arthritis / chronic MSK pain Continue buprenorphine at prior outpatient dosing. Renovascular HTN / CKD stage 3 Clinically stable. Continue amlodipine and carvedilol. GERD Continue Protonix. COPD Continue Spiriva. Bipolar 1 disorder Continue Cymbalta and Wellbutrin. Discharge Providers Provider Date of admission: 08/14/25 23:44 Discharge Date: 08/16/25 Primary care physician: Nabor Starkey MD Consults: 08/15/25 01:05 Consult to Physical Therapy Evaluate & Treat Comment: recurrent falls due to reported loss of balance Physician Instructions: Evaluate and Treat 08/15/25 10:08 Consult to Occupational Therapy Evaluate & Treat Comment: weakness Physician Instructions: Evaluate and treat Discharge provider: Caitlin Carmona MD Exam Vital Signs (past 8 hours): - 08/16/25 04:00 08/16/25 07:20 Temperature 99.2 F Pulse Rate 71 66 Respiratory Rate 18 18 Blood Pressure 125/81 Pulse Oximetry 95 99 Oxygen Delivery Method Room Air Oxygen Flow Rate 0 Oxygen Delivery Method Room Air Oxygen Flow Rate 0 Objective Labs 08/15/25 13:22 08/16/25 06:01 Labs: Laboratory Results - last 24 hr 08/15/25 08/16/25 13:22 06:01 WBC 4.8 RBC 3.71 L Hgb 10.9 L Hct 32.2 L MCV 86.7 MCH 29.4 MCHC 33.9 RDW 14.9 H Plt Count 242 Neut % (Auto) 71.1 Lymph % (Auto) 17.3 L [place] % (Auto) 7.7 Eos % (Auto) 3.0 Baso % (Auto) 0.9 Neut # (Auto) 3400 Lymph # (Auto) 800 L [place] # (Auto) 400 Eos # (Auto) 100 Baso # (Auto) 0 Sodium 141 139 Potassium 4.8 4.1 Chloride 107 107 Carbon Dioxide 24 24 BUN 23 H 28 H Creatinine 1.61 H 1.56 H Estimated GFR 32 L 33 L BUN/Creatinine Ratio 14.3 17.9 Glucose 117 H 95 Calcium 9.4 9.3 PFSH Medical History Frequent falls Primary osteoarthritis, right shoulder Right shoulder pain Type 2 diabetes mellitus with other specified complication Type 2 diabetes mellitus with diabetic chronic kidney disease Chronic kidney disease, stage 4 (severe) 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 arthritis with rheumatoid factor of multiple sites without organ or systems involvement Morbid (severe) obesity due to excess calories Type 2 diabetes mellitus with diabetic peripheral angiopathy without gangrene Type 2 diabetes mellitus with diabetic polyneuropathy Bipolar 1 disorder Insomnia At high risk for cardiovascular disease (Unknown) Hyperlipidemia Severe 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, without psychotic features (07/05/16) Lumbar radiculopathy Hypertensive heart and chronic kidney disease with heart failure and stage 1 through stage 4 chronic kidney disease, or unspecified chronic kidney disease Cardiomegaly CKD (chronic kidney disease) ADD (attention deficit disorder) Peripheral vascular disease of extremity with claudication Kidney cysts Sacralization of lumbar vertebra Foraminal stenosis of lumbar region COVID SOB (shortness of breath) on exertion Class 1 obesity due to excess calories with body mass index (BMI) of 34.0 to 34.9 in adult Depression ADD (attention deficit disorder) Dysphagia Sciatica Loss of voice Dysphagia Encounter for Medicare annual wellness exam Screening for malignant neoplasm of colon COPD (chronic obstructive pulmonary disease) Right leg injury UTI (urinary tract infection) Bilirubin in urine Raynaud's disease without gangrene Peripheral neuropathy Venous stasis Rheumatoid arthritis Fibromyalgia Pneumonia Cystic fibrosis (~1956) Post traumatic stress disorder (PTSD) Anxiety Arachnoiditis Stroke Restless leg syndrome Scoliosis Osteoporosis Degenerative joint disease (DJD) of lumbar spine Foot pain Fibromyalgia Chronic back pain Cervical spine disease Ankle pain Anemia Vertigo (~1968) Cataracts, bilateral Heavy menstrual period Abnormal Pap smear of cervix (~1956) Kidney stones GI bleeding GERD (gastroesophageal reflux disease) Skin cancer (~1996) Hypertension Atrial fibrillation Surgical History S/P shoulder replacement History of lumbar fusion History of neck surgery History of back surgery History of knee replacement (11/29/16) Status post bunionectomy (08/11/15) History of hip replacement S/P total abdominal hysterectomy and bilateral salpingo-oophorectomy Status post tonsillectomy and adenoidectomy Status post tubal ligation Status post cholecystectomy Status post appendectomy Social History marital status: household members: spouse and family Smoking Status: Never smoker alcohol intake: former substance use type: does not use Discharge Plan Discharge Plan Patient Disposition: Home Health Service Transfer to: Home Health, Other Discharge orders & Medications Prescriptions: New acetaminophen [Tylenol] 325 mg tablet 650 mg PO Q6H PRN (Reason: pain) Qty: 30 0RF oxycodone 5 mg capsule 5 mg PO .q6 hours PRN (Reason: pain (scale score 7-10)) Qty: 8 0RF Continued carvedilol 12.5 mg tablet 12.5 mg PO BID nitroglycerin 0.4 mg tablet, sublingual See Rx Instructions .ROUTE .COMPLEX Qty: 25 1RF Dose Instruction: Dissolve 1 tablet under tongue every 5-15 minutes up to 3 times for chest pain. If persists, call 911. Rx Instructions: Dissolve 1 tablet under tongue every 5-15 minutes up to 3 times for chest pain. If persists, call 911. Disabled Parking Permit See Rx Instructions .ROUTE .COMPLEX Qty: 1 0RF Rx Instructions: I find this patient to be medically disabled and qualify for disabled parking as indicated and signed on the accompanying disabled parking application for individuals. duloxetine 60 mg capsule,delayed release(DR/EC) 60 mg PO DAILY Qty: 90 3RF Rx Instructions: Take 1 cap at bedtime daily for depression atorvastatin 80 mg tablet 80 mg PO QPM Qty: 90 2RF amlodipine 5 mg tablet 5 mg PO DAILY Qty: 90 3RF clopidogrel 75 mg tablet 75 mg PO DAILY buprenorphine-naloxone 8-2 mg film 2 film buccal BEDTIME PRN (Reason: pain) Qty: 30 3RF Rx Instructions: place 1 film on inside of (each) cheek in the p.m. as needed for severe pain buprenorphine-naloxone [Suboxone] 12-3 mg film 2 film buccal Q24H Qty: 60 3RF Rx Instructions: place 2 strip/tab under (each) side of tongue daily for pain relief pantoprazole 40 mg tablet,delayed release (DR/EC) 40 mg PO DAILY losartan 25 mg tablet 25 mg PO DAILY buprenorphine 15 mcg/hour patch weekly 1 patch transdermal Q7D Qty: 4 3RF Rx Instructions: New dosage bupropion HCl [Wellbutrin XL] 300 mg tablet extended release 24 hr 300 mg PO QAM Qty: 90 3RF bupropion HCl 200 mg tablet sustained-release 12 hr 200 mg PO .q24 sennosides-docusate sodium 8.6-50 mg tablet 1 tab PO BID PRN (Reason: constipation) dextroamphetamine-amphetamine 20 mg tablet See Rx Instructions .ROUTE .COMPLEX Rx Instructions: Take 0.5 tab by mouth twice per day 4-6 hours apart zaleplon 10 mg capsule 10 mg PO BEDTIME PRN (Reason: sleep) Rx Instructions: must avoid high-fat meal/food immediately before taking dose Eliquis 5 mg tablet 2.5 mg PO BID Rx Instructions: Take 1 tab twice per day for anticoagulation tiotropium-olodaterol 2.5-2.5 mcg/actuation mist 2 puff inhalation Q24H Follow up/Referrals: Nabor Starkey MD [Primary Care Provider, Family Practice] Diet/Activity/Treatments Diet: Diet as Tolerated Activity: Activity as tolerated Visit Report/Discharge Packet Stand Alone Forms: Patient Portal/API, Stroke Signs & Symptoms Discharge Data Primary Care Provider: Nabor Starkey Attending Provider: Dipak Benavidez Admit Date/Time: 08/14/25 23:44
[2025-08-16] MEDS: APIXABAN 5 MG TABLET 2.5 MG PO (08:54)
[2025-08-16] MEDS: PANTOPRAZOLE DR 40 MG TABLET PO (08:55)
[2025-08-16] MEDS: ACETAMINOPHEN 325 MG TABLET 975 MG PO (08:55)
[2025-08-16] MEDS: CLOPIDOGREL 75 MG TABLET PO (08:55)
[2025-08-16 09:03] VITALS: BP 171/77; PULSE 60
--- NOTE | 2025-08-16 09:41 | PT.IPTN ---
Current Diagnoses Morbid (severe) obesity due to excess calories (08/14/25) Bipolar disorder, unspecified (08/14/25) Other chronic pain (08/14/25) Essential (primary) hypertension (08/14/25) Paroxysmal atrial fibrillation (08/14/25) Chronic obstructive pulmonary disease, unspecified (08/14/25) Rheumatoid arthritis with rheumatoid factor of multiple sites without organ or systems involvement (08/14/25) Repeated falls (08/14/25) Personal history of transient ischemic attack (TIA), and cerebral infarction without residual deficits (08/14/25) Physical Therapy Treatment Note M2 PT-IP Current Condition Start: 08/15/25 16:28 Freq: Status: Active Protocol: Document 08/15/25 16:28 NW (Rec: 08/15/25 16:55 NW [id number]) Physical Therapy Current Condition Current Condition Evaluation Date 08/15/25 Treatment Diagnosis Multiple GLF, R bicep pain, Reduced Activity Tolerance Onset Date 08/14/25 M3 PT-IP Subjective Start: 08/15/25 16:28 Freq: Status: Active Protocol: Document 08/16/25 09:41 DLM (Rec: 08/16/25 10:01 DLM [id number]) Subjective Physical Therapy Visit Type Type Treatment Note Visit Start Time 09:10 Visit Stop Time 09:41 Notes 31 min Number of DRAPERY SEWER HAND Visits 0 Physical Therapy Visit Comments Patient Comments She feels like she can go home with her family to help. Her and Son are able to help her get into the house. She has a wheelchair she can use at home as needed. She get equipment at [facility] as needed. Patient Goals Discharge home today Therapy Pain Assessment Pain When Pain Assessed After Treatment Pain Present Pain Present Pain Reported Location Right Upper Arm Intensity 7 Scale Used Numeric (0 - 10) Description Aching,Tender,With Movement Pain Behaviors Facial Grimacing,Guarding,Wincing Pain Management Modification of Treatment,Re-positioning Techniques M4 PT-IP Mobility and Gait Start: 08/15/25 16:28 Freq: Status: Active Protocol: Document 08/16/25 09:41 DLM (Rec: 08/16/25 10:01 DLM [id number]) PT-Bed Mobility Assessment Supine to Sit Supine to Sit Independent,Head of Bed Elevated Sit to Supine Sit to Supine Independent Scooting Scooting to Edge of Independent Bed PT-Transfer Assessment Sit to and From Stand Sit to and from Standby Assistance,Contact Guard Assistance,1 Person Stand Assistance,Use of Upper Extremities Equipment Transfer Assistive Gait Belt,Front Wheeled Walker Device Transfers Transfer Destination Bed,Chair,Toilet Transfer Ability Level of Assist Standby Assistance,Contact Guard Assistance Comments Mobility Comments She moves slowly with all mobility/gait. She has flexed posture with right trunk lean. Her right shoulder pain causes her to intermittently lean on right forearm on FWW to manage her pain. Gait Assessment Gait Gait Assistance Standby Assistance,Contact Guard Assist Required: Distance (Feet) 40 Assistive Devices Assistive Device Gait Belt,Front Wheeled Walker Gait Deviations General Gait Pattern Antalgic,Decreased Stride Length,Flexed Trunk,Lateral Trunk Lean,Narrow Based Gait,Step-to Gait Factors Limiting Gait Function Factors Limiting Decreased Sensation,Decreased Strength,Pain,Poor Gait Function Balance,Poor Safety Awareness Comments Gait Comments Pt ambulated in room, then took seated rest break, then ambulated to toilet to urinate then back to bed. Stair Climbing Assessment Comments Stair Climbing Pt reports Spouse can assist her along with her Son Comments PT-Balance Assessment Sitting Balance and Reactions Static Sitting Normal Balance Ability Dynamic Sitting Normal Balance Ability Standing Balance and Reactions Static Standing Good Balance Ability Dynamic Standing Fair Balance Ability Device Used FWW M5 PT-IP Objective Assessments Start: 08/15/25 16:28 Freq: Status: Active Protocol: Document 08/15/25 16:28 NW (Rec: 08/15/25 16:55 NW [id number]) Orientation Orientation/Cognition Level of Alertness Alert Safety Awareness Decreased Safety Awareness Memory Description Short Term Impaired Comments Pt has previous history of CVA recently with notes of dyarthria, unable to discern pts word finding difficulties at times. Gross Range of Motion Lower Extremity ROM Assessment Within Functional Limits Strength Lower Extremity Strength Assessment Within Functional Limits Comments Strength Comments 5/5 with all LE testing Sensation Assessment Sensation Gross Sensation Right LE Impaired,Left LE Impaired Light Touch Impaired Sensation Numbness Description Comments Sensation Comments bilateral plantar surface numbness noted. M6 PT-IP Treatment Start: 08/15/25 16:28 Freq: Status: Active Protocol: Document 08/16/25 09:41 DLM (Rec: 08/16/25 10:01 DLM [id number]) Physical Therapy Treatment Exercises Exercises Ankle Pumps,Seated Knee Flexion/Extension Education Education Provided Safety Other Treatments Other Treatment Additional exercises: seated hip flexion Performed each ex x 10 reps M7 PT-IP Assessment and Plan Start: 08/15/25 16:28 Freq: Status: Active Protocol: Document 08/16/25 09:41 DLM (Rec: 08/16/25 10:01 DLM [id number]) PT Summary Assessment and Plan Summary Impairments Pain,Balance,Sensation,Cognition,Transfers,Gait, Activity Tolerance Progress Towards Progressing Toward Goals Goals Assessment Summary Janet is alert and resting in bed after breakfast. She plans to discharge home today. She reports being sore all over from her falls in addition to her right shoulder pain (post surgical pain). She has sling in her room but she is not using it. She is right handed and has difficulty using right shoulder functionally due to pain and limited active ROM. She demonstrates good use of FWW for short distances with altered trunk posture that appears chronic. Recommend she limit her gait at home and use wheelchair to decrease the stress on right shoulder while it is healing from surgery. Her specific post-surgical precautions are not clear at this time. Continue to recommend discharge home with family assist and home marino care PT/OT. Pt agrees to this discharge plan. Goals Bed Mobility Goal Independent Transfer Goal Standby Assistance Gait Goal Standby Assistance Gait Distance 150 Other Goals Pt will navigate 2 stairs with railing on the R at [facility] with a step to gait pattern. Days to Meet Goals 3 Frequency of Treatment Frequency Of Once a Day Treatment Treatment Plan Physical Therapy Bed Mobility Training,Transfer Training,Gait Training, Treatment Plan Therapeutic Exercise,Balance Retraining,Discharge Planning,Neuromuscular Re-ed Precautions Other Precautions falls right total shoulder about 6 weeks ago per pt report, has sling Weight Bearing Status Weight Bearing Weight Bear as Tolerated Status Recommendations To Nursing Amount of Assist 1 Person Assist Needed Discharge Recommendations PT Discharge Home with 28/03 Assist Available,Home Health Recommendations Other Discharge Use of FWW. Recommendations Equipment Needed for FWW Home Before Discharge Transportation Needs Private Vehicle,Wheelchair/Cabulance at Discharge - PT assist 1
--- NOTE | 2025-08-16 10:28 | PC.NURSE ---
Removed pt PIV and tele, pt tolerated well, informed ICU. Provided discharge education on fall safety, medications, home health referral, and follow up with PCP MD Starkey. Pt and spouse stated all questions answered. All VSWNL. All belongings with pt. No belongings in safe or drawer or pharm. Pt escorted via WC by MARIE Shepard with spouse to [facility].
== END 2025-08-16 10:32 | disposition home health service (06) ==
LOC: ED 22:53 → AC 23:44
PROVIDERS: Emergency Medicine; Internal Medicine Infectious Disease; Admitting Provider Internal Medicine; Emergency Provider Emergency Medicine; Family Provider Family Medicine; PCP Family Medicine; Referring Provider Emergency Medicine; Visit Provider Internal Medicine
DX: S00.03XA Contusion of scalp, initial encounter (principal); M54.2 Cervicalgia; M79.604 Pain in right leg; M79.601 Pain in right arm; R29.6 Repeated falls; I48.0 Paroxysmal atrial fibrillation; J44.9 Chronic obstructive pulmonary disease, unspecified; G89.29 Other chronic pain; I69.322 Dysarthria following cerebral infarction; F31.9 Bipolar disorder, unspecified; I12.9 Hypertensive chronic kidney disease with stage 1 through stage 4 chronic kidney disease, or unspecified chronic kidney disease; E11.22 Type 2 diabetes mellitus with diabetic chronic kidney disease; N18.30 Chronic kidney disease, stage 3 unspecified; K21.9 Gastro-esophageal reflux disease without esophagitis; E66.01 Morbid (severe) obesity due to excess calories; M05.79 Rheumatoid arthritis with rheumatoid factor of multiple sites without organ or systems involvement; Z86.73 Personal history of transient ischemic attack (TIA), and cerebral infarction without residual deficits; Z98.1 Arthrodesis status; Z79.01 Long term (current) use of anticoagulants; Z68.34 Body mass index [BMI] 34.0-34.9, adult
CPT/HCPCS: 36415; 70450; 71045; 72125; 73060; 80048; 80053; 81003; 82550; 83605; 83690; 83735; 83880; 84145; 84484; 85025; 85610; 85730; 93005; 94640; 94760; 97116; 97162; 97165; 97530; 97535; 99284; 99285; G0378

== ENCOUNTER → 2025-08-20 14:17 | Outpatient (CLI) | payer MEDICARE, MEDICAID, SELFPAY ==
[2025-08-15 11:02] VITALS: BMI 21.9
== END ==
LOC: LAB 14:19
PROVIDERS: Family Provider Family Medicine; PCP Family Medicine; Visit Provider Physician Assistant
DX: R30.0 Dysuria (principal)
CPT/HCPCS: 87086